=== PATIENT | female | born 1990 | race Caucasian/White ===

== ENCOUNTER 2024-04-09 15:11 | Emergency (ER) | payer MEDICAID, SELFPAY ==
[2024-04-09] VITALS (12 sets, daily range): BP systolic 102–125; BP diastolic 68–83; PULSE 78–109; RESP 12–20; TEMP 37.7; O2SAT 93–99; BMI 16.5
--- NOTE | 2024-04-09 16:34 | ED_ITS ---
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 She has had recurrent severe low potassium levels. She was sent here by 1 of her primary physicians for evaluation because this morning her blood pressure was low and she began to feel lightheaded and rather suddenly collapsed with brief loss of consciousness. She reports that she typically does have nausea symptoms but does not indicate any vomiting or diarrhea. She does not report any fevers. Related Data Home Medications ?Medication ?Instructions ?Recorded ?Confirmed albuterol sulfate 90 mcg/actuation inhalation 04/09/24 aerosol inhaler ferrous sulfate 325 mg (65 mg 325 mg PO TID 04/09/24 04/09/24 iron) tablet (iron) gabapentin 100 mg capsule 100 mg PO QPM 04/09/24 04/09/24 gabapentin 300 mg capsule 300 mg PO 3XD 04/09/24 04/09/24 hydroxyzine HCl 25 mg tablet mg PO 04/09/24 potassium chloride 20 mEq 80 meq PO BID 04/09/24 04/09/24 tablet,extended release(part/cryst) (Klor-Con M) spironolactone 25 mg tablet 25 mg PO TID 04/09/24 04/09/24 Allergies Allergy/AdvReac Type Severity Reaction Status Date / Time duloxetine [From Cymbalta] Allergy Severe Hypotension Verified 04/09/24 15:26 IV Iron AdvReac Intermediate swelling Uncoded 04/09/24 15:26 of arm Review of Systems Status of ROS: Reports: 10 or more systems reviewed and unremarkable except as noted in History and below Narrative: Constitutional: No fevers, no weight gain. She states that she has lost about 2 lb in the past few days. Eyes: No discharge. No vision changes. HENT: No congestion, no sore throat, no ear pain. Cardiovascular: No chest pain, no palpitations. Respiratory: No shortness of breath, no wheezes, no cough. Gastrointestinal: No abdominal pain, no vomiting, no diarrhea. Genitourinary: No dysuria, no hematuria. Musculoskeletal: Normal range of motion. Skin: No rashes, no pruritis. Neurological: No dizziness, weakness, sensory change, speech change. Endo/Heme/Allergies: No bruising or bleeding. No polydipsia. Pysch: no suicidality, no anxiety, no insomnia. All other systems reviewed and are negative. [facility] Social History Smoking Status: Never smoker How often do you have a drink containing alcohol: never AUDIT-C Alcohol total score: 0 Non-prescribed substance use: denies use Exam Narrative: Exam Narrative: Constitutional: No acute distress. HEENT: Normocephalic, atraumatic. Neck: Normal range of motion. Nontender. Supple. Heart: Regular. No murmurs. Normal rate. Intact distal pulses. Lungs: Clear to auscultation. No chest discomfort. No wheezes, rhonchi, or rales. Abdomen: Normal bowel sounds. Nontender. No rebound tenderness. Genitalia: Deferred. Back: No midline tenderness. Normal range of motion. Extremities: Normal range of motion. No injury. Skin: Intact. No rash. Warm. No erythema or pallor. Neurologic: No altered sensation. No weakness. Alert and oriented. Psychiatric: No suicidality. No anxiety or depression. No insomnia. Nursing notes and vitals signs are reviewed. Const: Vital Signs, click to edit/add: Vital Signs - 24 hr 04/09/24 15:17 04/09/24 16:12 04/09/24 16:16 Temperature 99.8 F H Pulse Rate 87 87 Pulse Rate [Pulse Oximeter] 109 H Respiratory Rate 20 14 14 Blood Pressure 109/83 111/80 Blood Pressure [Ri ght Upper Arm] 125/71 Pulse Oximetry 98 96 94 Oxygen Delivery Me thod Room Air 04/09/24 16:31 04/09/24 16:46 04/09/24 17:01 Temperature Pulse Rate 86 89 81 Pulse Rate [Pulse Oximeter] Respiratory Rate 16 12 14 Blood Pressure 105/72 102/83 102/77 Blood Pressure [Ri ght Upper Arm] Pulse Oximetry 93 98 94 Oxygen Delivery Me thod 04/09/24 17:16 04/09/24 17:32 04/09/24 17:46 Temperature Pulse Rate 84 78 78 Pulse Rate [Pulse Oximeter] Respiratory Rate 16 12 18 Blood Pressure 114/75 115/74 107/68 Blood Pressure [Ri ght Upper Arm] Pulse Oximetry 98 99 97 Oxygen Delivery Me thod 04/09/24 19:23 Temperature Pulse Rate Pulse Rate [Pulse Oximeter] 89 Respiratory Rate Blood Pressure Blood Pressure [Ri t Upper Arm] 122/81 Pulse Oximetry Oxygen Delivery Me thod Course Vital Signs Vital signs: Initial Vital Signs Temperature 99.8 F H 04/09/24 15:17 Temperature Source Temporal Artery Scan 04/09/24 15:17 Pulse Rate 109 H 04/09/24 15:17 Respiratory Rate 20 04/09/24 15:17 Blood Pressure 125/71 04/09/24 15:17 Blood Pressure Mean 89 04/09/24 15:17 Blood Pressure Position Sitting 04/09/24 15:17 Pulse Oximetry 98 04/09/24 15:17 Oxygen Delivery Method Room Air 04/09/24 15:17 Vital Signs Temperature 99.8 F H 04/09/24 15:17 Pulse Rate 109 H 04/09/24 15:17 Respiratory Rate 20 04/09/24 15:17 Blood Pressure 125/71 04/09/24 15:17 Pulse Oximetry 98 04/09/24 15:17 Oxygen Delivery Method Room Air 04/09/24 15:17 Temperature 99.8 F H 04/09/24 15:17 Pulse Rate 89 04/09/24 19:23 Respiratory Rate 18 04/09/24 17:46 Blood Pressure 122/81 04/09/24 19:23 Pulse Oximetry 97 04/09/24 17:46 Oxygen Delivery Method Room Air 04/09/24 15:17 Medications Administered Medications: Generic Name Dose Route Start Last Admin Trade Name Freq PRN Reason Stop Dose Admin Hydromorphone HCl 0.5 mg 04/09/24 18:34 04/09/24 18:45 Hydromorphone 0.5 Mg/0.5 Ml Inj IVP 04/09/24 18:35 0.5 mg ONCE ONE Administration Discontinued Medications Generic Name Dose Route Start Last Admin Trade Name Freq PRN Reason Stop Dose Admin Dextrose/Sodium Chloride 1,000 mls @ 1,000 mls/hr 04/09/24 16:30 04/09/24 17:13 5 % Dextrose/0.9% Sod Chloride IV 04/09/24 17:29 Not Given .Q1H GERI Sodium Chloride 500 mls @ 500 mls/hr 04/09/24 17:02 04/09/24 18:13 0.9 % Sodium Chloride 500 Ml IV 04/09/24 18:01 Infused .Q1H ONE Infusion Ketorolac Tromethamine 15 mg 04/09/24 17:16 04/09/24 17:47 Ketorolac 15 Mg/Ml Inj IVP 04/09/24 17:17 15 mg ONCE ONE Administration Potassium Chloride 40 meq 04/09/24 17:44 04/09/24 17:57 Potassium Chloride 10 Meq Capsule Er PO 04/09/24 17:45 40 meq ONCE ONE Administration Medical Decision Making MDM Narrative Medical decision making narrative: This patient comes in reporting lightheadedness with brief syncope this morning. An IV was established where she received 500 mL of normal saline. Labs are acquired and do show typical findings for her related to her Gitelman's syndrome. Her potassium is at 2.9, hemoglobin 9.3, chloride at 77, and BUN at 57 with creatinine at 2.7. Her CO2 level is at 41. Calcium also returns at 11.1. I relayed these findings with the patient who states that these are not uncommon results for her chronic condition. The patient did receive an oral dose of potassium chloride [address] scan of her pelvis is obtained and does show evidence of a pelvic fracture but this appears to be subacute as there is a small amount of callus formation in the fracture sites. A patient did receive an IV dose of Dilaudid 0.5 mg and did maintain sufficient blood pressure. She is okay to be discharged home. She does use crutches for ambulating but states that she is interested in using her aunt's walker as this may provide some more stability. Lab Data Labs: Lab Results 04/09/24 Range/Units 16:55 WBC 6.77 (4.50-11.00) K/uL RBC 3.34 L (4.00-5.20) m/uL Hgb 9.3 L (12.0-16.0) gm/dL Hct 28.0 L (33.0-51.0) % MCV 84 (80-100) fL MCH 28 (26-34) pg MCHC 33 (32-36) gm/dL RDW Coeff of Nahun 13.4 (11.5-15.5) % Plt Count 356 (140-440) K/uL Neut % (Auto) 56.4 (42.0-72.0) % Lymph % (Auto) 32.1 (20-44) % [place] % (Auto) 8.3 (0.0-11.0) % Eos % (Auto) 2.5 (0.0-7.0) % Baso % (Auto) 0.6 (0.0-3.0) % Neut # (Auto) 3.82 (1.7-7.0) K/uL Lymph # (Auto) 2.17 (0.90-2.90) K/uL [place] # (Auto) 0.60 (0.00-0.90) K/UL Eos # (Auto) 0.17 (0.00-0.50) K/uL Baso # (Auto) 0.04 (0.00-0.30) K/uL Abs Immat Gran (auto) 0.01 (0.00-0.30) K/uL Imm/Tot Granulo (auto) 0.1 % Sodium 132 L (135-149) mmol/L Potassium 2.9 L* (3.6-5.1) mmol/L Chloride 77 L (96-114) mmol/L Carbon Dioxide 41 H* (20-32) mmol/L Anion Gap 14 (7-15) mEq/L BUN 57 H (5-24) mg/dL Creatinine 2.7 H (0.5-1.5) mg/dL Estimated Creat Clear 22.58 Estimated GFR 23 ml/min Glucose 88 (60-115) mg/dL Calcium 11.1 H (8.4-10.6) mg/dL Imaging Data CT Pelvis: Radiologist's impression: FINDINGS: Subacute appearing comminuted mildly displaced fractures of the right inferior pubic ramus and right ischiopubic ramus with a tiny amount of associated callus formation. The hip joint spaces are grossly preserved. Normal muscular bulk. Large colonic stool volume. IMPRESSION: 1. Subacute appearing comminuted mildly displaced fractures of the right inferior pubic ramus and right ischiopubic ramus. 2. Large colonic stool volume. Discharge Plan Discharge Clinical Impression: Syncope, Gitelman syndrome Patient Disposition: Home, Self-Care Condition: Stable Additional Instructions: Continue current plans. Follow up with primary physicians as needed or scheduled. Return if worsening. Prescriptions: No Action potassium chloride [Klor-Con M20] 20 mEq tablet,ER particles/crystals 80 meq PO BID ferrous sulfate [iron] 325 mg (65 mg iron) tablet 325 mg PO TID spironolactone 25 mg tablet 25 mg PO TID gabapentin 300 mg capsule 300 mg PO 3XD hydroxyzine HCl 25 mg tablet PO gabapentin 100 mg capsule 100 mg PO QPM albuterol sulfate 90 mcg/actuation HFA aerosol inhaler inhalation Follow Up/Referrals: Provider,Not a Local [Primary Care Provider] - Stand Alone Forms: Jobinasecond Info Instructions
--- OUTSIDE RECORDS SUMMARY | 2024-04-09 16:51 | XMS_ITS | Encounter Summary ---
[facility] Address [address] [address] Care Team Providers Care Db2 Dba Name Role Phone Leyda SANTOS MD, Mary Torres Primary Care Provider [phone]- [phone] Encounter Details Date Type Department Care Team (Late st Contact Info) Description 03/16/2015 Outside Hospital External to [facility] HISTORY AND PHYSICAL Social History Tobacco Use Types Packs/Day Years Used Date Smoking Tobacco: Never Alcohol Use Standard Drinks/Week Comments Yes 0 (1 standard drink = 0.6 oz pure alcohol) Once every couple months; rarely Sex and Gender Information Value Date Recorded Sex Assigned at Not on file Gender Identity Not on file Sexual Orientation Not on file documented as of this encounter Plan of Treatment Not on file documented as of this encounter Visit Diagnoses Not on filedocumented in this encounter Care Teams Db2 Dba Relationship Specialty Start Date End Date Mary Crabtree III, MD [address] [place] [address] PCP - General Family Practice 03/31/15 documented as of this encounter
--- OUTSIDE RECORDS SUMMARY | 2024-04-09 16:51 | XMS_ITS | Encounter Summary ---
Author [facility] Address [address] [address] Care Team Providers Care Exercise Equipment Specialist Name Role Phone Leyda SANTOS MD, Mary Torres Primary Care Provider [phone]- [phone] Encounter Details Date Type Department Care Team [...] on filedocumented in this encounter Care Teams Exercise Equipment Specialist Relationship Specialty Start Date End Date Mary Crabtree III, MD [address] [place] [address] PCP - General Family Practice 03/31/15 documented as of this encounter
--- OUTSIDE RECORDS SUMMARY | 2024-04-09 16:51 | XMS_ITS | Encounter Summary ---
[facility] Address [address] [address] Care Team Providers Care Chief Pilot Name Role Phone Leyda SANTOS MD, Mary Torres Primary Care Provider +1- [phone] Encounter Details Date Type Department Care Team (Late st Contact Info) Description 03/15/2015 Emergency Room External to [facility] Social History Tobacco Use Types Packs/Day Years [...] on filedocumented in this encounter Care Teams Chief Pilot Relationship Specialty Start Date End Date Mary Crabtree III, MD [address] [place] [address] PCP - General Family Practice 03/31/15 documented as of this encounter
--- OUTSIDE RECORDS SUMMARY | 2024-04-09 16:51 | XMS_ITS | Encounter Summary ---
[facility] Address [address] [address] Care Team Providers Care Laundrette Owner Name Role Phone Leyda SANTOS MD, Mary Torres Primary Care Provider +1- [phone] Encounter Details Date Type Department Care Team (Late st Contact Info) Description 03/13/2016 Consent for Procedure/Treatme nt [facility] Department INFORMED CONSENT RECORD Social History Tobacco Use Types Packs/Day Years Used Date Smoking Tobacco: Never Smokeless Tobacco: Never Alcohol Use Standard Drinks/Week Comments No 0 (1 standard drink = 0.6 oz pur e alcohol) Sex and Gender Information Value Date Recorded Sex Assigned at Not on file Gender Identity Not on file Sexual Orientation Not on file documented as of this encounter Plan of Treatment Not on file documented as of this encounter Visit Diagnoses Not on filedocumented in this encounter Care Teams Laundrette Owner Relationship Specialty Start Date End Date Mary Crabtree III, MD [address] [place] [address] PCP - General Family Practice 03/31/15 documented as of this encounter
--- OUTSIDE RECORDS SUMMARY | 2024-04-09 16:51 | XMS_ITS | Encounter Summary ---
Author Organization [facility] Address [address] [address] Care Team Providers Care Sorter Lumber Straightener Name Role Phone Leyda SANTOS MD, Mary Torres Primary Care Provider +1- [phone] Encounter Details Date Type Department Care Team (Late st Contact Info) Description 03/19/2015 Outside Hospital External to [facility] DISCHARGE SUMMARY Social History Tobacco Use Types Packs/Day Years [...] on filedocumented in this encounter Care Teams Sorter Lumber Straightener Relationship Specialty Start Date End Date Mary Crabtree III, MD [address] [place] [address] PCP - General Family Practice 03/31/15 documented as of this encounter
--- OUTSIDE RECORDS SUMMARY | 2024-04-09 16:51 | XMS_ITS | Encounter Summary ---
Author [facility] Address [address] [address] Care Team Providers Care Senior Energy Consultant Name Role Phone Leyda SANTOS MD, Mary Torres Primary Care Provider +1- [phone] Encounter Details Date Type Department Care Team (Late st Contact Info) Description 05/12/2015 Outside Hospital External to [facility] DISCHARGE SUMMARY [...] on filedocumented in this encounter Care Teams Senior Energy Consultant Relationship Specialty Start Date End Date Mary Crabtree III, MD [address] [place] [address] PCP - General Family Practice 03/31/15 documented as of this encounter
--- OUTSIDE RECORDS SUMMARY | 2024-04-09 16:51 | XMS_ITS | Encounter Summary ---
Author [facility] Address [address] [address] Care Team Providers Care Batch Or Continuous Still Operator Name Role Phone Leyda SANTOS MD, Mary Torres Primary Care Provider +1- [phone] Encounter Details Date Type Department Care Team (Late st Contact Info) Description 07/18/2016 Correspondence [facility] Radiology [address] [place] [id number] Radiology, Provider MRI SAFETY SHEET AND COMPATIBILITY FORM Social History Tobacco Use Types Packs/Day Years [...] on filedocumented in this encounter Care Teams Batch Or Continuous Still Operator Relationship Specialty Start Date End Date Mary Crabtree III, MD [address] [place] [address] PCP - General Family Practice 03/31/15 documented as of this encounter
--- OUTSIDE RECORDS SUMMARY | 2024-04-09 16:51 | XMS_ITS | Encounter Summary ---
Author Organization [facility] Address [address] [place] [address] Care Team Providers Care Ekg Manager Name Role Phone Leyda SANTOS MD, Mary Torres Primary Care Provider +1- [phone] Encounter Details Date Type Department Care Team (Late st Contact Info) Description 04/15/2015 Consent for Procedure/Treatme nt [facility] Department INFORMED CONSENT RECORD Social History Tobacco [...] on filedocumented in this encounter Care Teams Ekg Manager Relationship Specialty Start Date End Date Mary Crabtree III, MD [address] [place] [address] PCP - General Family Practice 03/31/15 documented as of this encounter
--- OUTSIDE RECORDS SUMMARY | 2024-04-09 16:51 | XMS_ITS | Encounter Summary ---
Author Organization [facility] Address [address] [place] [address] Care Team Providers Care Metal Plater Name Role Phone Leyda SANTOS MD, Mary Torres Primary Care Provider +1- [phone] Encounter Details Date Type Department Care Team (Late st Contact Info) Description 03/30/2016 Correspondence [facility] [address] [place], [place] [id number] Mary Crabtree III, MD [address] [place], [place] [id number] 03-06 PLAN OF CARE Social History Tobacco Use Types Packs/Day Years [...] on filedocumented in this encounter Care Teams Metal Plater Relationship Specialty Start Date End Date Mary Crabtree III, MD [address] [place] [address] PCP - General Family Practice 03/31/15 documented as of this encounter
--- OUTSIDE RECORDS SUMMARY | 2024-04-09 16:51 | XMS_ITS | Encounter Summary ---
Author Organization Replaced by [facility] Address [address] [address] Care Team Providers Care Metallurgical Specialist Name Role Phone Leyda SANTOS MD, Mary Torres Primary Care Provider +1- [phone] Encounter Details Date Type Department Care Team (Late st Contact Info) Description 07/14/2017 Emergency Room External to [facility] GENERALIZED PAIN Social History Tobacco Use Types Packs/Day Years [...] on filedocumented in this encounter Care Teams Metallurgical Specialist Relationship Specialty Start Date End Date Mary Crabtree III, MD [address] [place] [address] PCP - General Family Practice 03/31/15 documented as of this encounter
--- OUTSIDE RECORDS SUMMARY | 2024-04-09 16:51 | XMS_ITS | Encounter Summary ---
Author Organization [facility] Address [address] [address] Care Team Providers Care Machine Chocolate Molder Name Role Phone Leyda SANTOS MD, Mary Torres Primary Care Provider +1- [phone] Encounter Details Date Type Department Care Team (Late st Contact Info) Description 03/15/2015 Outside Hospital External to [facility] HISTORY AND [...] on filedocumented in this encounter Care Teams Machine Chocolate Molder Relationship Specialty Start Date End Date Mary Crabtree III, MD [address] [place] [address] PCP - General Family Practice 03/31/15 documented as of this encounter
--- OUTSIDE RECORDS SUMMARY | 2024-04-09 16:51 | XMS_ITS | Continuity of Care Document ---
Author Organization [facility] Address [address] [address] [place] [address] Phone Care Team Providers Care Settlement Technician Name Role Phone Anthony Hernandez MD Unavailable Unavailable Allergies, Adverse Reactions, Alerts Substance Reaction Status Criticality No Known allergies Medications Medication Instructions Dosage Effective Dates (start - stop) Status Comments Zofran 8 mg Tab as needed for nausea - Active Prozac 40 mg Cap Take one capsule by mouth daily - Active Procedures Procedure Date Subsqt Hosp-da E&m Minr Compl 0 Subsqt Hosp-da E&m Minr Compl 0 Ugi Endo; W/bx /mx Init Hosp-da E&m Mod Severity 0 Subsqt Hosp-da E&m Stable 15 M 18 Init Inpt Cons New/est Mod-hi 8 Subsqt Hosp-da E&m Stable 15 M 18 Ugi Endo; W/bx /mx Colonoscopy Flex; Dx (feb Pro) 18 Subsqt Hosp-da E&m Minr Compl 8 Subsqt Hosp-da E&m Stable 15 M 18 Init Inpt Cons New/est Mod-hi 8 Subsqt Hosp-da E&m Minr Compl 8 Offic/outpt E&m Estab Minor 10 10 G8447 Offic/outpt E&m Estab Minor 10 09 G8447 Offic/outpt E&m Estab Minor 10 09 Change Gastrostomy Tube Offic/outpt E&m Estab Mod-hi 2 09 G8447 Subsqt Hosp-da E&m Minr Compl 9 Subsqt Hosp-da E&m Minr Compl 9 Subsqt Hosp-da E&m Minr Compl 9 Subsqt Hosp-da E&m Minr Compl 9 Subsqt Hosp-da E&m Minr Compl 9 Ugi Endo; W/bx 1/mx Ugi Endo; W/plcmt Gastrostomy 9 Offic/outpt E&m Estab Mod-hi 2 09 G8447 Offic/outpt E&m Estab Mod-hi 2 08 Subsqt Hosp-da E&m Minr Compl 8 Subsqt Hosp-da E&m Minr Compl 8 Subsqt Hosp-da E&m Minr Compl 8 Subsqt Hosp-da E&m Minr Compl 8 Colonoscopy Flex; W/bx 1/mx Ugi Endo; W/bx 1/mx Subsqt Hosp-da E&m Minr Compl 6 Init Inpt Cons New/est Mod-hi 6 Ugi Endo; W/bx 1/mx Subsqt Hosp-da E&m Minr Compl 6 Subsqt Hosp-da E&m Minr Compl 6 Subsqt Hosp-da E&m Minr Compl 6 Subsqt Hosp-da E&m Minr Compl 6 Subsqt Hosp-da E&m Minr Compl 6 Subsqt Hosp-da E&m Minr Compl 6 Init Inpt Cons New/est Mod-hi 6 Subsqt Hosp-da E&m Minr Compl 6 Offic Cons New/estab Mod- Advance Directives Directive Yes / No Effective Date File Name No Information Encounters Encounter Description Practice Location Reason(s) For Visit Diagnoses Date Provider Providers Copied on Encounter [facility], [address] [address], [place], [place], [id number], [place] tel:[phone] [facility] No Information 0 Mary Cruz. [address] [facility], [facility] [address], [place], [place], [id number], [place]. tel:[phone] [facility], [address] [address], [place], [place], [id number], [place] tel:[phone] [facility] Generalized abdominal pain 0 Joyce Brown. [address] [facility], [facility] [address], [place], [address], [place]. tel:[phone] Subsqt Hosp-da E&m Minr Compl [facility], [address] [address], [place], [address], [place] tel:[phone] [facility] No Information 0 Joyce Brown. [address] [facility], [facility] [address], [place], [id number], [place]. tel:[phone] Referring Provider: Kevin Cook MD, [address] [facility] [address], [place], [address]. tel:[phone] [facility], [address] [address], [facility] [place], [id number], [place] tel:[phone] [facility] No Information 0 Joyce Brown. [address] [facility], [facility] [address], [place], [address], [place]. tel:[phone] Referring Provider: Kevin Cook MD, [address] [facility] [address], [place], [address]. tel:[phone] Init Hosp-da E&m Mod Severity [facility], [address] [address], [place], [place], [address], [place] tel:[phone] [facility] No Information 0 Cornelio Stevenson. [address] [place] [address], [place], [id number], [place]. tel:[phone] Referring Provider: Edgar SANCHEZ, [address] [place], [address]. tel:[phone] Subsqt Hosp-da E&m Stable 15 M [facility], [address] [address], [place], [place], [id number], [place] tel:[phone] [facility] No Information No Information Referring Provider: Gregg Szymanski, [address] [place], [address]. tel:[phone] Init Inpt Cons New/est Mod-hi [facility], [address] [address], [place], [place], [id number], [place] tel:[phone] [facility] No Information 8 No Information Referring Provider: Gregg Szymanski, [address] [place], [address]. tel:[phone] Subsqt Hosp-da E&m Stable 15 M [facility], [address] [address], [place], [place], [address], [place] tel:[phone] [facility] No Information 8 Flory Askew. [facility] [facility], [facility] [address], [place], [id number], [place]. tel:[phone] Referring Provider: Azar Ruth MD, [address] [place] [address], [address]. tel:[phone] Init Inpt Cons New/est Mod-hi [facility], [address] [address], [place], [id number], [place] tel:[phone] [facility] No Information Aug- 8 Sajan Ritter. [address] [facility], [facility] [address], [place], [place], [id number], [place]. tel:[phone] Referring Provider: Riya Lino, [address] [place] [address] [address], [place], [address]. [phone] Offic/outpt E&m Estab Minor 10 [facility], [address] [address], [place], [id number], [place] tel:[phone] [facility] Feeding tube issues (chief complaint) Atten To Gastrostomy 0 No Information Offic/outpt E&m Estab Minor 10 [facility], [address] [address], [place], [id number], [place] tel:[phone] [facility] G-tube change (chief complaint) Atten To Gastrostomy 3200 9 No Information Offic/outpt E&m Estab Minor 10 [facility], [address] [address], [place], [id number], [place] tel:[phone] [facility] No Information 4200 9 No Information Offic/outpt E&m Estab Mod-hi 2 [facility], [address] [address], [place], [id number], [place] tel:[phone] [facility] Check up feeding tube (chief complaint) UnderweightU nderweight 8200 9 No Information Subsqt Hosp-da E&m Minr Compl [facility], [address] [address], [place], [id number], [place] tel:[phone] [facility] No Information 8200 9 No Information Subsqt Hosp-da E&m Minr Compl [facility], [address] [address], [place], [id number], [place] tel:[phone] [facility] No Information [place]-0 6200 9 No Information Subsqt Hosp-da E&m Minr Compl [facility], [address] [address], [place], [place], [id number], [place] tel:[phone] [facility] No Information [place]-0 2-200 9 No Information Offic/outpt E&m Estab Mod-hi 2 [facility], [address] [address], [place], [place], [address], [place] tel:[phone] [facility] consultation for g-tube (chief complaint) Underweight 9 No Information Offic/outpt E&m Estab Mod-hi 2 [facility], [address] [address], [place], [place], [id number], [place] tel:[phone] [facility] Diarrhea Apr-0 9-200 8 No Information Subsqt Hosp-da E&m Minr Compl [facility], [address] [address], [place], [place], [id number], [place] tel:[phone] [facility] No Information Apr-0 7-200 8 No Information Referring Provider: Zeynep Smith, [address], [place], [address]. tel:[phone] Subsqt Hosp-da E&m Minr Compl [facility], [address] [address], [place], [place], [address], [place] tel:[phone] [facility] No Information Apr-0 2-200 8 No Information Referring Provider: Zeynep Smith, [address], [place], [address]. tel:[phone] [facility], [address] [address], [place], [place], [address], [place] tel:[phone] [facility] No Information Apr-0 2-200 8 Will OCASIO . [address] [facility], [facility] [address], [place], [place], [id number], [place]. tel:[phone] Referring Provider: Zeynep Smith, [address], [place], [address]. tel:[phone] Subsqt Hosp-da E&m Minr Compl [facility], [address] [address], [place], [address], [place] tel:[phone] [facility] No Information 6 No Information Referring Provider: Zeynep Smith, [address], [place], [address]. tel:[phone] Init Inpt Cons New/est Mod-hi [facility], [address] [address], [place], [address], [place] tel:[phone] [facility] No Information 6 No Information Referring Provider: Zeynep Smith, [address], [place], [address]. tel:[phone] Subsqt Hosp-da E&m Minr Compl [facility], [address] [address], [place], [address], [place] tel:[phone] [facility] No Information 6 No Information Referring Provider: Zeynep Smith, [address], [place], [address]. tel:[phone] Init Inpt Cons New/est Mod-hi [facility], [address] [address], [place], [address], [place] tel:[phone] [facility] No Information 6 No Information Referring Provider: Zeynep Smith, [address], [place], [address]. tel:[phone] Offic Cons New/estab Mod- [facility], [address] [address], [place], [address], [place] tel:[phone] [facility] abdominal pain,unspeci fied Nov- 6 No Information Referring Provider: Zeynep Smith, [address], [place], [address]. tel:[phone] Family History Family Member Type Diagnosis Age At Onset Maternal grandmother Problem (finding) Thyroid disorde r Mother Problem (finding) Liver Gallbladder Disea se Mother Problem (finding) Colon Polyps Paternal grandfather Problem (finding) Maternal history of diabetes mellitus Paternal grandfather Problem (finding) prostate cancer Maternal grandfather Problem (finding) Colon Rectal Ca ncer First degree family history Problem (finding) No history of Colon Rectal Cancer Maternal grandmother Problem (finding) GERD Maternal grandfather Problem (finding) malignant neoplasm of urinary bladder Maternal grandmother Problem (finding) breast cancer Father Problem (finding) peptic ulceration First degree family history Problem (finding) Thyroid disorder Paternal grandfather Problem (finding) Lupus erythemat osus Father Problem (finding) Irritable bowel disease First degree family history Problem (finding) No history of Crohn's Father Problem (finding) Liver Gallbladder Disea se Maternal grandmother Problem (finding) peptic ulcerati on First degree family history Problem (finding) No history of Ulcerative Colitis Payers Payer name Insurance type Covered constitution party ID Authoriza tion(s) No Information Social History Type Description Quantity Date Captured Comments Sex Female Smoking Status No Information Chief Complaint And Reason For Visit No Information Reason For Referral Reason For Referral No Information History Of Present Illness Encounter Date Complaint History Of Prese nt Illness No Information Functional Status Date Functional Assessmen t No Information Instructions Date Instruction Additional Infor mation No Information Assessments Type Assessment Date No Information Patient Care Teams Name Effective Dates (start - stop) Status Members No Information
--- OUTSIDE RECORDS SUMMARY | 2024-04-09 16:51 | XMS_ITS | Clinical Summary ---
Author Organization [facility] Address [address] [place] [address] Care Team Providers Care Production Line Assembler Name Role Phone Leyda SANTOS MD, Mary Torres Primary Care Provider [phone]- [phone] Source Comments You are receiving this document as you are listed as the primary care provider,follow-up provider, or the patient has been referred to you for consultation.This is in compliance with the Medicare andMedicaid EHR Incentive Program,which states Providers who transition their patient to another setting of careor provider of care or refers their patient to another provider of care shouldprovide summary care record for each transition of care or referral. Everywun Allergies Active Allergy Reactions Criticality Noted Date Comments Duloxetine Other, see comments 09/22/2017 B/P droop, shaking/tremor/fuzzy B/P droop, shaking/tremor/fuzzy B/P droop, shaking/tremor/fuzzy Iron Sucrose Anxiety,Edema,genera lize d,Gastrointestinal,Hives High 09/23/2017 Medications Medication Sig Dispensed Refills Start Date End Date Status Multiple Vitamins-Minerals (MULTIVITAMIN OR) Take 1 tablet by mouth daily (every 24 hours). 30 03/01/2007 Active spironolactone (ALDACTONE) 50 MG tablet Take 0.5 Tabs by mouth two times a day. 180 Tab 2 03/22/2016 Active ferrous sulfate 325 (65 FE) MG tabletIndications:Ir on Deficiency Anemia Take 1 Tab by mouth three times a day. Indications: Anemia From Inadequate Iron in the Body 100 Tab 2 12/21/2016 Active sodium chloride 1 G tablet Take 6 g by mouth 4 times a day. Active ondansetron (ZOFRAN-ODT) 4 MG disintegrating tablet Take 4 mg by mouth every 8 hours as needed for Nausea. Active hydrOXYzine HCl (ATARAX) 25 MG tablet Take 1-2 Tabs by mouth every 6 hours as needed for Pain (This may make you drowsy, so try it before bedtime.). 20 Tab 03/02/2017 Active magnesium oxide (MAG-OX) 400 MG tablet Take 1 Tab by mouth three times a day. Hold when you have diarrhea 03/06/2017 Active naproxen (NAPROSYN) 500 MG tabletIndications:Dy smenorrhea,Lower abdominal pain Take 1 Tablet by mouth two times daily as needed. 20 Tablet 1 10/30/2018 Active potassium chloride (K-BATSHEVA) 20 MEQ packet Take 80 mEq by mouth. 10/21/2018 Active Calcium Carbonate (AKA OS-ELKE) 1250 (500 Ca) MG chewable tablet Chew and swallow by mouth. Active gabapentin (NEURONTIN) 100 MG capsule Take 1 cap am, 1 cap afternoon, 3 caps at night 03/03/2019 Active methocarbamol (ROBAXIN) 750 MG tablet Take 750 mg by mouth. 10/08/2017 Active traMADol (ULTRAM) 50 MG tablet Take 1 Tablet by mouth two times a day. 6 Tablet 10/04/2019 Active oxyCODONE-acetaminop hen (PERCOCET) 5-325 MG tablet Take 1 Tablet by mouth. 08/23/2020 Active oxyCODONE-acetaminop hen (PERCOCET) 5-325 MG tablet Take 1 Tablet by mouth every 4 hours if needed for Pain. Max acetaminophen dose: 4000mg in 24 hrs. 08/31/2020 Active Active Problems Problem Noted Date Diagnosed Date Chronic pain of lower extremity, bilateral 02/08 Alkalosis, metabolic 01/12/2016 Volume depletion, renal, due to output loss (bahman al deficit) 01/12/2016 Incisional pain 11/17/2015 Small bowel problem 11/08/2015 Overview (11/08/2015): 11/08/2015 Bowel problems blamed on irritable bowel syndrome, but with patient's low weight despite significant intake, what appears to be increased intestinal transit time, unexplained iron deficiency anemia (does not menstruate), it seems less benign than irritable bowel syndrome. 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 Our goal is providing quality and consistent care on each visit, to help you improve your overall health. We want to let you know about the care plan recently created for you by our team of health career services representative. A care plan is a way to help our staff provide you with reliable care during any future visits to the [facility]. We are concerned about your recent visits for the following reasons: ? ? In the last twelve months you have had 20 visits to the Emergency Department for Hypokalemia and muscle pain requiring narcotic medications. ? ? We? ve noticed a pattern of visiting the Emergency Department for routine healthcare needs rather than true emergencies. Routine healthcare needs are best addressed by a primary care physician in a clinic. ? ? We? ve noticed a pattern of using the Emergency Department for routine care that is better managed by a Registration Clerk or panel edge painter who can help you with your chronic medical illnesses. ? ? We? ve noticed a pattern of frequent non-emergent visits during which you request medications with a high potential for addiction for treatment of chronic medical illnesses (such as strong pain medications). ? ? We? ve noticed a pattern of not complying with the treatment recommended by your regular doctors, causing repeated worsening in your health. To provide you with reliable care in the future, we plan to do the following: ? ? We will not give you intravenous or intramuscular injections of controlled substances to treat worsening chronic pain. We will treat acute pain, but will maximize non narcotic pain management. ? ? We will not give you intravenous or intramuscular injections of benzodiazepines for your chronic pain/anxiety. ? ? We will interview and examine you any time you come to the ER to identify and treat new or dangerous medical illnesses that are true emergency conditions. ? ? We will not provide refills of your regular medications. ? ? We will not discharge you with prescriptions for medications with the potential for addiction to treat your non-emergent chronic medical illnesses. ? ? Details about this careplan will be posted within your medical record in [facility] to help the emergency department staff and clinic staff. ? ? We may check with the [place] Prescription Monitoring Program to evaluate your recent controlled substance prescriptions. ? ? We may request that you sign a release for information from other hospitals. We use this information to determine how to provide you with the most reliable care. If we are unable to confirm all sources of medication, we may decide that there is too great of a health risk in treating you with medications with addiction potential if we determine you do not have an emergency medical condition. ? ? We will discuss options for treating your chronic pain symptoms with medications that don? t have a potential for addiction. ? ? We will discuss how strong pain medications or anxiety medications change how your body works, and can often make your chronic pain worse. ? ? We may request a urine specimen to check for illegal drugs in your body. Because illegal drugs can act together with medications we prescribe, we may limit the types of medications we treat you with during or after your emergency department visit. ? ? We will work to help you access your primary care doctor for managing your chronic symptoms. ? ? We will help you find a primary care physician to help manage your chronic medical illnesses. Primary care physicians are experts in helping patients manage their illness by finding treatments to control and reduce your symptoms. You are expected to keep scheduled appointment as directed. ? ? We will refer you to your primary care doctor to establish a plan to manage and hopefully improve your symptoms of chronic pain. ? ? We will refer you to a specialist to help provide care for your condition. This specialist can help us personalize this care plan we use during future visits to the emergency department. ? ? We welcome a calm and respectful discussion about your care or any questions you have, even if you disagree with our recommendations. ? ? We will not tolerate any type of abuse toward any of our staff members. This includes calling names, using profanity, using threatening words or behavior, damaging property, or using physical violence. Any abuse will be considered your refusal of further care if you do not have an emergency medical condition. You will be escorted off [facility] property by our security or police if you physically threaten or harm our staff or cause property damage. We reserve the right to call law enforcement and charges for assault or battery may be filed against you. We want you to know what to expect the next time you have a visit in the emergency department. The doctors and nurses who care for you will have access to your care plan and will use it to guide your care. During or after your visit, our pillowcase cleaner will help you connect with additional resources in the community so you can improve your overall health. We want to you to know what resources are available to you right now: Case Management: The emergency department pillowcase cleaner can help answer questions about your care plan and record any concerns you may have about this plan. Most importantly, they are available to help connect you to other resources until you have built a relationship with a primary care provider. To speak with a protective services case worker, please contact [phone] or [phone]. Primary Care Providers: Your primary care doctor can work with you to stabilize your medical illnesses. This may require more frequent visits or changing your treatment plan. You are expected to work with your primary care doctor to help control your disease. If you do not have a primary care doctor, our protective services case worker can help you determine your best options for receiving reliable primary care. Specialty care: Working with a specialist (xxx) may be required to get your illnesses or injuries under control. Following the treatment plan recommended by your specialist is essential to controlling your medical illnesses. If you do not have a specialty care doctor, our protective services case worker can help you determine your best options for referral. Crisis line: [facility] has an adult mental health service crisis unit to help those with mental illnesses. Call [phone] for assistance. Financial counseling: [facility] financial counselors are available to answer your questions about your account with our hospital as well as your options for enrolling in a health insurance plan. You may contact them directly at [phone] Chemical dependency: [facility] offers evaluation to residents for treatment for chemical dependency, including addiction to alcohol, street drugs, or prescription medications. Call [phone] to arrange for an evaluation. We know your needs will change. We review care plans on a yearly basis. We will decide to continue, change or discontinue the care plan during that review. Finally, we understand that you may not agree with the specifics of this care plan. Care plans are important effectively manage your health care needs. We hope your needs are met in our care community and we look forward to partnering with you to receive the best possible healthcare. Our pillowcase cleaner are available to further help connect you with your best options for care. Please contact them at [phone] or [phone] Sincerely, [facility] Care Plan Committee CAREPLAN: [facility] 6 05/02/2017 Overview (03/08/2016): Background: Engaged in Complex Case Management:Bambi Cloud, RN [phone] Goals/Recommendations: PT CARE COORDINATION - HEALTH SHELTER 12/30/2015 09/17/2017 Overview (03/06/2016): Pt enrolled in D&CM and home care. Will review chart every 3 months to see if clinic nurse can assist pt. Laura Rader RN 03/06/2016, 4:01 PM Assessment & Plan (09/14/2017 11:09 AM CDT): Left message to return call. Laura Rader RN 09/14/2017, 11:09 AM Assessment & Plan (03/23/2017 9:46 AM CDT): Staff message sent to D&CM to inquire about pt progress. Laura Rader RN 03/23/2017, 9:46 AM Assessment & Plan (08/25/2016 10:52 AM WIRELESS STORE MANAGER): Contacted pt to f/u on recent ED visit. Pt reports that she is feeling better. Was thought to have a stomach virus which caused diarrhea and electrolyte imbalance. No longer having diarrhea. Inquired if pt was needing forms filled out for work accommodations. Notes that the letter that she received in June seems to be sufficient at this time. Advised to obtain a form if further restrictions are needed. Can present to the clinic and have the provider fill this out. Nurse to f/u in 1 month. Laura Rader RN 08/25/2016, 10:52 AM Assessment & Plan (07/28/2016 11:11 AM WIRELESS STORE MANAGER): Contacted pt to see how she is doing since last visit. Notes that she is having some improvement in the leg pain with the Tylenol 3 and this makes working a little easier. Also has been able to get her employer to comply with the work restrictions that were recommended by Trang. Pt sounded in much better spirits since last visit. MRI was normal, which is reassuring to pt. She was assisted in scheduling a visit with LUCERO OCASIO to discuss amenorrhea. Nurse to f/u in 1 month. Laura Rader RN 07/28/2016, 11:11 AM Assessment & Plan (07/14/2016 11:48 AM WIRELESS STORE MANAGER): Pt answered positively to PHQ9 #9. Denies any plan for self harm, harming others, or suicide. Declines therapy or psychiatry at this time. Will call if she changes her mind regarding this. Has tried multiple medications, but does not feel she has tried one that worked for her. Strongly recommended psychiatry to help assist with finding a medication. States that her depressions is related to her inability to perform desired activities and function normally. States that she will call if she changes her mind and will call the nurse with worries regarding self harm. Pt presented to the clinic on a same day basis with Trang Porras. See TE for provider documentation. Pt notes incredible frustration with her diagnosis and feels that she will be limited in her activities for the rest of her life. 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 Is worried that she may possibly have MS. Has not had a period in 5 years and this was initially thought to be due to her low weight, which is now WNL. Leg pain does not improve with remedy of low potassium, so she wonders if this is actually caused from the syndrome. Notes that she has a wonderful nephrology team and PCP, but thinks that they are too focused on this syndrome. Would like other possibilities explored. Pt is tearful and her main concern is limitation in activity. Expressed understanding with patient's frustration and that this depression is r/t her limitations. She is used to being an active person and [place], so her physical limitations have greatly changed her life. Did note to pt that medication might be a helpful aid while she is working with the doctors to find a group home tx plan. Pt notes that she has not been following up regularly for clinic and lab visits because of this frustration with her prognosis(i.e.-she is not improving). Foreign Banknote Teller Trader expressed understanding, but also noted that this inconsistency will not contribute to improvement of her condition and strongly encouraged regular follow up. Inquired if pt needs FMLA and she declines at this time. Will need work restrictions because they continue to put her in physically demanding positions in her job at the [employer] even after she requests a more stationary task. Pt does not want to be without a job and cannot afford this either. Pt is reminded to call the clinic with any concerns/questions regarding her care. Laura Rader RN?? 07/14/2016, 11:27 AM Assessment & Plan (07/13/2016 4:13 PM WIRELESS STORE MANAGER): Left message to return call. Pt seen in ED 07/07/16 for fall and weakness. Advised to f/u with nephrology. Has not seen or scheduled with them. Calling to see how pt is doing. Laura Rader RN 07/13/2016, 4:12 PM Assessment & Plan (06/29/2016 3:21 PM WIRELESS STORE MANAGER): Pt notes that she continues to have problems with her electrolyte imbalance. However, it has greatly improved since early summer when she was frequently in the hospital. Notes that she has body aches that are more than a normal ache. She will f/u in clinic tomorrow to address her pain. Nurse to f/u. Laura Rader RN 06/29/2016, 3:21 PM Assessment & Plan (05/19/2016 11:11 AM WIRELESS STORE MANAGER): Message sent to D&CM to review pt need. Awaiting response. Laura Rader RN 05/19/2016, 11:11 AM Immunizations Name Administration Dates Next Due 4vHPV (Gardasil) 05/15/2011,04/19/2009 DTP 10/18/1992,1991 DTaP 11/28/1996, 3,1991,1991,1991 HepA Adult (19+ yrs) 11/15/2009,04/19/2009 HepA Ped/Adol (1-18 yrs) 11/15/2009,04/19/2009 HepB Adult (Engerix-B, 20+ y rs, 3 dose series) 04/27/1993,10/18/1992,07/16/1992 HepB Ped/Adol (0-18 yrs) 04/27/1993,10/18/1992,0 07/16/1992 HepB, Unspecified Formulation 04/27/1993, 993,07/16/1992 Hib (ActHIB) 10/20/1992, 3,07/16/1992,1991 Hib, Unspecified Formulation 07/16/1992,10/20/18 92 IPV (Polio) 10/18/1992, 2,1991,1990 Influenza IIV4 (Quadrivalent ) 0.5mL (80376) 2015(Deferred: Patient Refused) MCV4 (Menactra) 04/19/2009 MMR 04/19/2009, 4,07/16/1992,1992 OPV, Trivalent (Orimune or tOPV) 997,10/18/1992,1991,1991,1991 OPV, Unspecified Formulation 11/28/1996, 10/18/1992,1991,1991,1991 Td 11/16/2003 Tdap 04/19/2009 Family History Medical History Relation Name Comments Depression Father Other Father IBS Depression Mother Cancer, Colon Maternal Grandfather Depression Other 1 both sides have aunts and uncles with depression Cancer, Colon Other 2 paternal uncle Other Other 3 two maternal co usins with RA Diabetes, Type II Paternal Grandfather Other Sister 3 JRA Relation Name Status Comments Father Alive Mother Alive Maternal Grandfather Maternal Grandmother Other 1 Other 2 Other 3 Paternal Grandfather Alive Paternal Grandmother Alive Sister 1 Alive Sister 2 Alive Sister 3 Social History Tobacco Use Types Packs/Day Years Used Date Smoking Tobacco: Never Smokeless Tobacco: Never Alcohol Use Standard Drinks/Week Comments No 0 (1 standard drink = 0.6 oz pur e alcohol) Sex and Gender Information Value Date Recorded Sex Assigned at Not on file Gender Identity Not on file Sexual Orientation Not on file Last Filed Vital Signs Vital Sign Reading Time Taken Comments Blood Pressure 123/71 09/10/2020 7:21 PM CDT Pulse 97 09/10/2020 7:21 PM CDT Temperature 37.1 ??C (98.7 ??F) 09/10/2020 7:21 PM CD T Respiratory Rate 16 09/10/2020 7:21 PM CDT Oxygen Saturation 100% 09/10/2020 7:21 PM CDT Inhaled Oxygen Concentration - - Weight 54.4 kg (120 lb) 10/30/2018 10:20 AM CDT Height 167 cm (5' 5.75) 10/30/2018 10:20 AM CDT Body Mass Index 19.52 10/30/2018 10:20 AM CDT Plan of Treatment Health Maintenance Due Date Last Done Comments Cervical Cancer Screening Due 1991 Hep C Screening (Preventive Services) 1991 HIV Screening (Preventive Services) 2007 Adult Preventive Visit 2009 HPV Vaccine (3 - 3-dose series) 08/07/2011 05/15/2011, 04/19/2009 COVID-19 Vaccine ( season) 2024 Influenza (#1) 2024 DTaP/Tdap/Td (8 - Tdap) 08/30/2030 08/31/19, 04/19/2009, 11/16/2003, Additional history exists Zoster/Shingles (1 of 2) 2041 Hib Completed 10/20/1992, 06/26, 07/16/1992, Additional history exists HepB Completed 04/27/1993, 08/1992, 04/27/1993, Additional history exists IPV (Polio) Completed 11/28/1996, 11/1996, 10/18/1992, Additional history exists MCV4 Completed 04/19/2009 HepA Completed 11/15/2009, 10/24, 04/19/2009, Additional history exists Infant RSV Aged Out No longer eligi ble based on patient's age to complete this topic Pneumococcal Aged Out No longer eligi ble based on patient's age to complete this topic Advance Directives * Full Code (Latest Code Status on File) Date Activated Date Inactivated Comments 03/06/2017 12:55 PM 03/06/2017 6:58 PM * Full Code Date Activated Date Inactivated Comments 01/06/2017 4:48 PM 01/07/2017 9:56 PM * Full Code Date Activated Date Inactivated Comments 12/16/2016 12:09 AM 12/17/2016 5:22 PM * Full Code Date Activated Date Inactivated Comments 08/22/2016 8:52 PM 08/23/2016 1:52 PM * Full Code Date Activated Date Inactivated Comments 06/21/2016 5:04 PM 06/22/2016 2:38 PM Care Teams Production Line Assembler Relationship Specialty Start Date End Date Mary Crabtree III, MD [address] [place] [address] PCP - General Family Practice 03/31/15
--- OUTSIDE RECORDS SUMMARY | 2024-04-09 16:51 | XMS_ITS | Continuity of Care Document ---
Author Organization [facility] Address [address] [place] [address] Phone Care Team Providers Care Osteopathic Physician Name Role Phone Will MD FIERRO, Wayne Unavailable Unavailabl e Advance Directives Directive Yes / No Effective Date File Name No Information Encounters Encounter Description Practice Location Reason(s) For Visit Diagnoses Date Provider Providers Copied on Encounter [facility], [address] [place] [address] [place], [place], [id number], [place] tel:[phone] [facility] Gayle No Information Will Wayne. [address] [place], [place], [id number], [place]. tel:[phone] Family History Family Member Type Diagnosis Age At Onset No Information Payers Payer name Insurance type Covered republican ID Authoriza tion(s) No Information Social History [...]
--- OUTSIDE RECORDS SUMMARY | 2024-04-09 16:51 | XMS_ITS | Encounter Summary ---
[facility] Address [address], [place] [address] Care Team Providers Care Phlebotomy Program Coordinator Name Role Phone Leyda SANTOS MD, Mary Torres Primary Care Provider [phone]- [phone] Encounter Details Date Type Department Care Team (Late st Contact Info) Description 01/03/2016 Consent for Procedure/Treatme nt [facility] Department INFORMED CONSENT RECORD Social History Tobacco [...] on filedocumented in this encounter Care Teams Phlebotomy Program Coordinator Relationship Specialty Start Date End Date Mary Crabtree III, MD [address] [place] [address] PCP - General Family Practice 03/31/15 documented as of this encounter
--- OUTSIDE RECORDS SUMMARY | 2024-04-09 16:51 | XMS_ITS | Encounter Summary ---
Author Organization [facility] Address [address] [place] [address] Care Team Providers Care Machine Leather Trimmer Name Role Phone Leyda SANTOS MD, Mary Torres Primary Care Provider [phone]- [phone] Encounter Details Date Type Department Care Team (Late st Contact Info) Description 07/14/2017 Outside Hospital External to [facility], Provider H AND P Social History Tobacco Use Types Packs/Day Years [...] filedocumented in this encounter Care Teams Machine Leather Trimmer Relationship Specialty Start Date End Date Mary Crabtree III, MD [address] [place] [address] PCP - General Family Practice 03/31/15 documented as of this encounter
--- OUTSIDE RECORDS SUMMARY | 2024-04-09 16:51 | XMS_ITS | Encounter Summary ---
[facility] Address [address], [place] [address] Care Team Providers Care Top Cager Name Role Phone Leyda SANTOS MD, Mary Torres Primary Care Provider [phone]- [phone] Encounter Details Date Type Department Care Team (Late st Contact Info) Description 05/12/2017 Outside Hospital External to [facility], Provider H AND P Social History Tobacco [...] on filedocumented in this encounter Care Teams Top Cager Relationship Specialty Start Date End Date Mary Crabtree III, MD [address] [place] [address] PCP - General Family Practice 03/31/15 documented as of this encounter
--- OUTSIDE RECORDS SUMMARY | 2024-04-09 16:51 | XMS_ITS | Encounter Summary ---
Author Organization [facility] Address [address], [place] [address] Care Team Providers Care Soda Clerk Name Role Phone Leyda SANTOS MD, Mary Torres Primary Care Provider +1- [phone] Encounter Details Date Type Department Care Team (Late st Contact Info) Description 02/14/2016 Consent for Procedure/Treatme nt [facility] Department INFORMED CONSENT RECORD Social [...] on filedocumented in this encounter Care Teams Soda Clerk Relationship Specialty Start Date End Date Mary Crabtree III, MD [address] [place] [address] PCP - General Family Practice 03/31/15 documented as of this encounter
--- OUTSIDE RECORDS SUMMARY | 2024-04-09 16:51 | XMS_ITS | Encounter Summary ---
Author Organization [email or web address] Address [address] [address] Care Team Providers Care Environmental Services Specialist Name Role Phone Leyda SANTOS MD, Mary Torres Primary Care Provider +1- [phone] Encounter Details Date Type Department Care Team (Late st Contact Info) Description 02/02/2016 Consent for Procedure/Treatme nt [facility] Department INFORMED CONSENT RECORD Social History [...] on filedocumented in this encounter Care Teams Environmental Services Specialist Relationship Specialty Start Date End Date Mary Crabtree III, MD [address] [place] [address] PCP - General Family Practice 03/31/15 documented as of this encounter
--- OUTSIDE RECORDS SUMMARY | 2024-04-09 16:51 | XMS_ITS | Encounter Summary ---
Author Organization [facility] Address [address] [address] Care Team Providers Care Senior Mechanical Development Engineer Name Role Phone Leyda SANTOS MD, Mary Torres Primary Care Provider +1- [phone] Encounter Details Date Type Department Care Team (Late st Contact Info) Description 12/27/2016 Emergency Room External to [facility] Social History Tobacco Use Types Packs/Day Years [...] filedocumented in this encounter Care Teams Senior Mechanical Development Engineer Relationship Specialty Start Date End Date Mary Crabtree III, MD [address] [place] [address] PCP - General Family Practice 03/31/15 documented as of this encounter
--- OUTSIDE RECORDS SUMMARY | 2024-04-09 16:51 | XMS_ITS | Encounter Summary ---
Author Organization [facility] Address [address] [place] [address] Care Team Providers Care Coyote Hunter Name Role Phone Leyda SANTOS MD, Mary Torres Primary Care Provider +1- [phone] Encounter Details Date Type Department Care Team (Late st Contact Info) Description 10/03/2015 Scanned History External to Transferred Record, Provider [facility] Social History Tobacco Use Types Packs/Day Years [...] on filedocumented in this encounter Care Teams Coyote Hunter Relationship Specialty Start Date End Date Mary Crabtree III, MD [address] [place] [address] PCP - General Family Practice 03/31/15 documented as of this encounter
--- OUTSIDE RECORDS SUMMARY | 2024-04-09 16:51 | XMS_ITS | Encounter Summary ---
[facility] Address [address] [place] [address] Care Team Providers Care Rock Crushing Machine Operator Name Role Phone Leyda SANTOS MD, Mary Torres Primary Care Provider +1- [phone] Encounter Details Date Type Department Care Team (Late st Contact Info) Description 10/03/2015 Scanned History External to Transferred Record, Provider [facility] Social History Tobacco Use Types [...] on filedocumented in this encounter Care Teams Rock Crushing Machine Operator Relationship Specialty Start Date End Date Mary Crabtree III, MD [address] [place] [address] PCP - General Family Practice 03/31/15 documented as of this encounter
--- OUTSIDE RECORDS SUMMARY | 2024-04-09 16:51 | XMS_ITS | Encounter Summary ---
Author [facility] Address [address], [place] [address] Care Team Providers Care Human Machine Interface Engineer Name Role Phone Leyda SANTOS MD, Mary Torres Primary Care Provider +1- [phone] Encounter Details Date Type Department Care Team (Late st Contact Info) Description 03/16/2015 Outside Hospital External to [facility] DISCHARGE SUMMARY [...] on filedocumented in this encounter Care Teams Human Machine Interface Engineer Relationship Specialty Start Date End Date Mary Crabtree III, MD [address] [place] [address] PCP - General Family Practice 03/31/15 documented as of this encounter
--- OUTSIDE RECORDS SUMMARY | 2024-04-09 16:51 | XMS_ITS | Encounter Summary ---
Author Organization [facility] Address [address] [place] [address] Care Team Providers Care Line Pilot Name Role Phone Leyda SANTOS MD, Mary Torres Primary Care Provider +1- [phone] Encounter Details Date Type Department Care Team (Late st Contact Info) Description 09/24/2015 Scanned History External to Transferred Record, Provider [facility] Social History Tobacco Use Types Packs/Day Years [...] on filedocumented in this encounter Care Teams Line Pilot Relationship Specialty Start Date End Date Mary Crabtree III, MD [address] [place] [address] PCP - General Family Practice 03/31/15 documented as of this encounter
--- OUTSIDE RECORDS SUMMARY | 2024-04-09 16:52 | XMS_ITS | Clinical Summary ---
Author Organization [facility] Address [address] [place] [address] Care Team Providers Care Architectural Project Captain Name Role Phone Gregg Corrales MD Primary Care Provider Allergies Active Allergy Reactions Criticality Noted Date Comments Duloxetine Other (See Comments) 09/22/2017 B/P droop, shaking/tremor/fuzz y B/P droop, shaking/tremor/fuzz y Duloxetine Hcl 03/07/2018 B/P droop Ferric Carboxymaltose Unknown,Other (See Comments) 11/07/2021 Irritation at the injection site. Pt declined continuing infusion at lower rate. Irritation at the injection site. Pt declined continuing infusion at lower rate. Iron 06/06/2020 Other reaction(s): Other (see comments) Iron Sucrose Anxiety,Hives High 09/23/2017 Other reaction(s): Edema, Edema, Gastrointestinal, GI intolerance, GI Upset, Irritation At Inj Site, Other (see comments) Medications Medication Sig Dispensed Refills Start Date End Date Status multivitamin, therapeutic (THERA-VIT) TABS Take 1 tablet by mouth daily Active magnesium oxide (MAG-OX) 400 MG tablet Take 400 mg by mouth 3 times daily 03/06/2017 Active ferrous sulfate 325 (65 Fe) MG TBEC EC tablet Take 325 mg by mouth 3 times daily. 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 30 tablet 03/12/2024 Active gabapentin (NEURONTIN) 100 MG capsuleIndicatio ns:Closed fracture of single ramus of right pubis, with delayed healing, subsequent encounter Take 1 capsule (100 mg) by mouth 3 times daily. 90 capsule 03/12/2024 Active hydrOXYzine HCl (ATARAX) 25 MG tabletIndication s:Acute bilateral low back pain without sciatica Take 1-2 tablets (25-50 mg) by mouth every 6 hours as needed for other (adjuvant pain). 30 tablet 03/12/2024 Active senna-docusate (SENOKOT-S/PERIC OLACE) 8.6-50 MG tabletIndication s:Closed fracture of single ramus of right pubis, with delayed healing, subsequent encounter Take 1 tablet by mouth 2 times daily as needed for constipation. 03/23/2024 Active HYDROmorphone (DILAUDID) 2 MG tablet Take 2-4 mg by mouth every 6 hours as needed for severe pain. Active methocarbamol (ROBAXIN) 500 MG tablet Take 500 mg by mouth 4 times daily as needed for muscle spasms. Active calcium carbonate (TUMS) 500 MG chewable tablet Take 1-2 chew tab by mouth daily as needed for heartburn 03/23/20 24 Discontinued(Sto p at Discharge) hydrOXYzine (ATARAX) 25 MG tabletIndication s:Acute bilateral low back pain without sciatica Take 1-2 tablets (25-50 mg) by mouth every 6 hours as needed for other (adjuvant pain) 20 tablet 10/10/2018 03/12/20 24 Discontinued gabapentin (NEURONTIN) 300 MG capsule Take 300 mg by mouth 3 times daily 03/12/20 24 Discontinued(Sto p at Discharge) gabapentin (NEURONTIN) 100 MG capsule Take 100 mg by mouth At Bedtime (Plus 300mg for total 400mg at bedtime) 03/12/20 24 Discontinued(Sto p at Discharge) spironolactone (ALDACTONE) 50 MG tablet Take 50 mg by mouth daily 03/12/20 24 Discontinued potassium chloride deanne ER (KLOR-CON M20) 20 MEQ CR tablet Take 80 mEq by mouth 5 times daily. 03/12/20 24 Discontinued(Sto p at Discharge) methocarbamol (ROBAXIN) 750 MG tablet Take 750 mg by mouth every 6 hours as needed for muscle spasms. 12/31/2023 03/23/20 24 Discontinued(Sto p at Discharge) HYDROmorphone (DILAUDID) 4 MG tablet Take 2-4 mg by mouth every 6 hours as needed for pain. #12 dispensed 03/01/2024 03/12/20 24 Discontinued(Sto p at Discharge) potassium chloride deanne ER (KLOR-CON M20) 20 MEQ CR tabletIndication s:Gitelman syndrome Take 4 tablets (80 mEq) by mouth 2 times daily for 14 days. 112 tablet 03/12/2024 03/23/20 24 Discontinued senna-docusate (SENOKOT-S/PERIC OLACE) 8.6-50 MG tabletIndication s:Closed fracture of single ramus of right pubis, with delayed healing, subsequent encounter Take 1 tablet by mouth daily. 30 tablet 03/12/2024 03/23/20 24 Discontinued(Sto p at Discharge) HYDROmorphone (DILAUDID) 4 MG tabletIndication s:Closed fracture of single ramus of right pubis, with delayed healing, subsequent encounter Take 1 tablet (4 mg) by mouth every 6 hours as needed for moderate to severe pain. 24 tablet 03/12/2024 03/23/20 24 Discontinued(Sto p at Discharge) acetaminophen (TYLENOL) 500 MG tabletIndication s:Closed fracture of single ramus of right pubis, with delayed healing, subsequent encounter Take 2 tablets (1,000 mg) by mouth 3 times daily for 7 days. After 03/30 change to every 8 hours as needed. 03/23/2024 03/30/20 24 methocarbamol (ROBAXIN) 750 MG tabletIndication s:Closed fracture of single ramus of right pubis, with delayed healing, subsequent encounter Take 1 tablet (750 mg) by mouth 3 times daily for 5 days. After 5 days, change to frequency of PRN. 03/23/2024 03/28/20 24 HYDROmorphone (DILAUDID) 2 MG tabletIndication s:Closed fracture of single ramus of right pubis, with delayed healing, subsequent encounter Take 1-2 tablets (2-4 mg) by mouth every 6 hours as needed for severe pain (take 2 mg dose for pain scale <7/10, can take 4 mg dose for pain scale over 8/10). 15 tablet 03/23/2024 03/26/20 24 potassium chloride deanne ER (KLOR-CON M20) 20 MEQ CR tabletIndication s:Gitelman syndrome Take 4 tablets (80 mEq) by mouth 3 times daily for 14 days. 112 tablet 03/23/2024 03/23/20 24 Discontinued(Sto p at Discharge) potassium chloride ER (K-TAB) 20 MEQ CR tabletIndication s:Gitelman syndrome Take 4 tablets (80 mEq) by mouth 3 times daily for 14 days. 168 tablet 03/23/2024 04/06/20 24 Active Problems Problem Noted Date Diagnosed Date Chronic pain in female pelvis 04/02/2024 Inferior pubic ramus fractur e, right, closed, initial encounter 03/21/2024 Right hip pain 03/20/2024 Acute renal failure superimp osed on chronic kidney disease, unspecified acute renal failure type, unspecified CKD stage 03/20/2024 Hypercalcemia 03/06/2024 BARBARA (acute kidney injury) 03/06/2024 Acute kidney injury 01/31/2023 Metabolic alkalosis 11/04/2022 [id number] kidney injury 11/04/2022 Myalgia, multiple sites 07/29/2022 QT prolongation 03/06/2022 Pain of left upper arm 03/06/2022 Prolonged QT interval 07/20/2021 Chronic midline low back pain without sciatica 0 07/20/2021 Iron deficiency anemia, unsp ecified iron deficiency anemia type 07/20/2021 Nausea 07/20/2021 Ventral hernia without obstruction or gangrene 0 11/22/2020 Abdominal pain, epigastric 11/21/2020 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 Provider to review and confirm. Resolved Problems Problem Noted Date Diagnosed Date Resolved Date Leg pain 07/06/2010 07/06/2010 Encounters Date Type Department Care Team Description 04/02/2024 1:27 PM CDT - 04/04/2024 9:52 AM CDT Hospital Encounter [facility] Observation Dept [address] [place] [address] Amy Lott MD Ricklefs, Kendall D, DO Hypokalemia; BARBARA (acute kidney injury) (H); Chronic pain in female pelvis Discharge Disposition: Left Against Medical Advice 04/02/2024 Travel 03/25/2024 Telephone [facility] [address] 5th [place] [address] Tabitha Thomas MD Clinic Care Coordination - Initial 03/20/2024 3:15 PM CDT - 03/23/2024 12:50 PM CDT Hospital Encounter [facility] Observation Dept [address] [place] [address] Michael Ruiz DO Young, Jean Tsai, MD Gitelman syndrome (Primary Dx); Acute renal failure superimposed on chronic kidney disease, unspecified acute renal failure type, unspecified CKD stage (H); Right hip pain; Inferior pubic ramus fracture, right, closed, initial encounter (H); Chronic pain syndrome; Closed fracture of single ramus of right pubis, with delayed healing, subsequent encounter Discharge Disposition: Home or Self Care 03/20/2024 Travel 03/06/2024 2:04 PM CDT - 03/12/2024 2:06 PM CDT Hospital Encounter [facility] Medical Surgical [address] [place] [address] Ezequiel Valladares MD Khan, Raza A, MD Chronic midline low back pain without sciatica (Primary Dx); BARBARA (acute kidney injury) (H); Gitelman syndrome; Hypercalcemia; Closed fracture of single ramus of right pubis, with delayed healing, subsequent encounter; Acute bilateral low back pain without sciatica Discharge Disposition: Home or Self Care 03/06/2024 Travel from Last 3 Months Family History Medical History Relation Comments Other - See Comments Father Hypokalemia Breast Cancer Maternal Grandmother Hypothyroidism Mother Colon Cancer Paternal Uncle Juvenile idiopathic arthritis Sister Relation Status Comments Father Maternal Grandmother Mother Paternal Uncle Sister Social History Tobacco Use Types Packs/Day Years Used Date Smoking Tobacco: Never Smokeless Tobacco: Never Alcohol Use Standard Drinks/Week Comments No 0 (1 standard drink = 0.6 oz pur e alcohol) Adolescent Education Answer Date Record ed Getting School Help Needed Not on file 03/16 Food Insecurity Answer Date Recorded Within the past 12 months, d id you worry that your food would run out before you got money to buy more? No 04/02/2024 Within the past 12 months, d id the food you bought just not last and you didn? t have money to get more? No 04/02/2024 Housing Stability Answer Date Recorded Do you have housing? (Felice iraheta is defined as stable permanent housing and does not include staying ouside in a car, in a tent, in an abandoned building, in an overnight long term, or couch-surfing.) Yes 04/02/2024 Are you worried about losing your housing? No 04/02/2024 Financial Resource Strain Answer Date R ecorded Within the past 12 months, h ave you or your family members you live with been unable to get utilities (heat, electricity) when it was really needed? No 04/02/2024 Transportation Needs Answer Date Record ed Within the past 12 months, h as lack of transportation kept you from medical appointments, getting your medicines, non-medical meetings or appointments, work, or from getting things that you need? No 04/02/2024 Interpersonal Safety Answer Date Record ed Do you feel physically and e motionally safe where you currently live? Yes 04/03/2024 Within the past 12 months, h ave you been hit, slapped, kicked or otherwise physically hurt by someone? No 04/03/2024 Within the past 12 months, h ave you been humiliated or emotionally abused in other ways by your partner or ex-partner? No 04/03/2024 Sex and Gender Information Value Date Recorded Sex Assigned at Not on file Gender Identity Not on file Sexual Orientation Not on file Last Filed Vital Signs Vital Sign Reading Time Taken Comments Blood Pressure 90/67 04/04/2024 7:41 AM CDT Pulse 71 04/04/2024 7:41 AM CDT Temperature 36.7 ??C (98 ??F) 04/04/2024 7:41 AM CDT Respiratory Rate 18 04/04/2024 7:41 AM CDT Oxygen Saturation 98% 04/04/2024 7:41 AM CDT Inhaled Oxygen Concentration - - Weight 48.7 kg (107 lb 4.8 oz) 04/02/2024 5:42 P M CDT Height 170.2 cm (5' 7) 04/02/2024 5:42 PM CDT Body Mass Index 16.81 04/02/2024 5:42 PM CDT Plan of Treatment Health Maintenance Due Date Last Done Comments ANNUAL REVIEW OF HM ORDERS 1991 LIPID 1991 MICROALBUMIN 1991 HIV SCREENING 2006 HEPATITIS C SCREENING 2009 MEDICARE ANNUAL WELLNESS VISIT 2009 HPV IMMUNIZATION (3 - 3-dose series) 08/07/2011 05/15/2011, 04/19/2009 PAP 2012 ADVANCE CARE PLANNING 03/08/2023 03/08/2018 PHQ-2 (once per calendar year) 2023 COVID-19 Vaccine (2023- season) 2024 INFLUENZA VACCINE (#1) 2024 URINE DRUG SCREEN 03/21/2025 03/21/2024 BMP 04/04/2025 04/04/2024, 03/25, 04/02/2024, Additional history exists DTAP/TDAP/TD IMMUNIZATION (8 - Td or Tdap) 08/30/2030 08/30/2020, 04/19/2009, 11/16/2003, Additional history exists RSV VACCINE (1 - 1-dose 75+ series) 2066 HEPATITIS B IMMUNIZATION Completed 993, 04/27/1993, 04/27/1993, Additional history exists MENINGITIS IMMUNIZATION Completed 04/19/2009 URINALYSIS Completed 01/31/2023, 10/23, 05/16/2022, Additional history exists Pneumococcal Vaccine: Pediatrics (0 to 5 Years) and At-Risk Patients (6 to 64 Years) Aged Out No longer eligible based on patient's age to complete this topic RSV MONOCLONAL ANTIBODY Aged Out No l onger eligible based on patient's age to complete this topic Procedures Procedure Name Priority Date/Time Associated Diagnosis Comments CBC WITH PLATELETS & DIFFERENTIAL Routine 04/04/2024 4:56 AM CDT MAGNESIUM Add-On 04/04/2024 4:56 AM CDT CBC WITH PLATELETS AND DIFFERENTIAL Routine 04/04/2024 4:56 AM CDT FERRITIN Routine 04/04/2024 4:56 AM CDT IRON AND IRON BINDING CAPACITY Routine 04/04/2024 4:56 AM CDT BASIC METABOLIC PANEL Routine 04/04/2024 4:56 AM CDT POTASSIUM Timed 04/03/2024 7:55 PM CDT POTASSIUM Timed 04/03/2024 1:24 PM CDT POTASSIUM Timed 04/03/2024 7:06 AM CDT BASIC METABOLIC PANEL Routine 04/03/2024 7:06 AM CDT CBC WITH PLATELETS Routine 04/03/2024 7: 05 AM CDT POTASSIUM Timed 04/03/2024 3:05 AM CDT BASIC METABOLIC PANEL Timed 04/02/2024 6:49 PM CDT INFLUENZA A/B, RSV, & SARS-COV2 PCR Routine 04/02/2024 6:04 PM CDT EKG 12-LEAD, TRACING ONLY STAT 04/02/2024 3:29 PM CDT CBC WITH PLATELETS & DIFFERENTIAL STAT 04/02/2024 1:42 PM CDT CBC WITH PLATELETS AND DIFFERENTIAL STAT 04/02/2024 1:42 PM CDT TSH WITH FREE T4 REFLEX STAT 04/02/2024 1:42 PM CDT MAGNESIUM STAT 04/02/2024 1:42 PM CDT BASIC METABOLIC PANEL STAT 04/02/2024 1:42 PM CDT EKG 12-LEAD, TRACING ONLY STAT 04/02/2024 1:33 PM CDT CBC WITH PLATELETS Routine 03/23/2024 5: 11 AM CDT BASIC METABOLIC PANEL Routine 03/23/2024 5:11 AM CDT BASIC METABOLIC PANEL Routine 03/22/2024 5:24 AM CDT CBC WITH PLATELETS Routine 03/22/2024 5: 24 AM CDT POTASSIUM Timed 03/21/2024 7:54 PM CDT URINE DRUG SCREEN Routine 03/21/2024 1:2 9 PM CDT URINE DRUG SCREEN PANEL Routine 03/21/2024 1:29 PM CDT DIURETIC SCREEN, URINE Routine 1:29 PM CDT POTASSIUM Timed 03/21/2024 12:28 PM CDT POTASSIUM Timed 03/21/2024 9:25 AM CDT CBC WITH PLATELETS & DIFFERENTIAL Routine 03/21/2024 6:35 AM CDT MAGNESIUM Add-On 03/21/2024 6:35 AM CDT CBC WITH PLATELETS AND DIFFERENTIAL Routine 03/21/2024 6:35 AM CDT IONIZED CALCIUM Routine 03/21/2024 6:35 AM CDT PARATHYROID HORMONE INTACT Routine 03/21/2024 6:35 AM CDT BASIC METABOLIC PANEL Routine 03/21/2024 6:35 AM CDT POTASSIUM Timed 03/21/2024 2:58 AM CDT POTASSIUM Routine 03/20/2024 9:19 PM CDT XR PELVIS AND HIP RIGHT 1 VIEW STAT 03/20/2024 6:24 PM CDT CBC WITH PLATELETS & DIFFERENTIAL STAT 03/20/2024 4:15 PM CDT MAGNESIUM STAT 03/20/2024 4:15 PM CDT CBC WITH PLATELETS AND DIFFERENTIAL STAT 03/20/2024 4:15 PM CDT BASIC METABOLIC PANEL STAT 03/20/2024 4:15 PM CDT CALCIUM TIMED URINE Routine 03/12/2024 1 2:15 PM CDT POTASSIUM TIMED URINE Routine 03/12/2024 12:14 PM CDT PHOSPHORUS TIMED URINE Routine 12:14 PM CDT SODIUM TIMED URINE Routine 03/12/2024 12 :13 PM CDT CREATININE CLEARANCE Routine 03/12/2024 12:09 PM CDT CREATININE CLEARANCE, URINE Routine 03/12/2024 12:09 PM CDT EXTRA PURPLE TOP TUBE Routine 03/12/2024 7:22 AM CDT EXTRA TUBE Routine 03/12/2024 7:22 AM CDT BASIC METABOLIC PANEL Routine 03/12/2024 6:39 AM CDT IONIZED CALCIUM STAT 03/11/2024 10:12 AM CDT PARATHYROID HORMONE INTACT STAT 03/11/2024 10:12 AM CDT RENAL PANEL STAT 03/11/2024 10:12 AM CDT CYSTATIN C WITH GFR Add-On 03/10/2024 6 :48 AM CDT ALBUMIN LEVEL Add-On 03/10/2024 6:48 AM CDT BASIC METABOLIC PANEL Routine 03/10/2024 6:48 AM CDT BASIC METABOLIC PANEL Timed 03/09/2024 5:52 PM CDT MAGNESIUM Add-On 03/09/2024 7:18 AM CDT BASIC METABOLIC PANEL Routine 03/09/2024 7:18 AM CDT MAGNESIUM Routine 03/08/2024 8:57 AM CDT BASIC METABOLIC PANEL STAT 03/08/2024 8:57 AM CDT IRON AND IRON BINDING CAPACITY Routine 03/07/2024 8:46 AM CDT FOLATE Routine 03/07/2024 8:46 AM CDT VITAMIN B12 Routine 03/07/2024 8:46 AM CDT PHOSPHORUS Routine 03/07/2024 8:46 AM CDT MAGNESIUM Routine 03/07/2024 8:46 AM CDT BASIC METABOLIC PANEL Routine 03/07/2024 8:46 AM CDT EKG 12-LEAD, TRACING ONLY Routine 03/06/2024 8:33 PM CDT BICARBONATE URINE STAT 03/06/2024 8:3 1 PM CDT CHLORIDE RANDOM URINE STAT 03/06/2024 7:08 PM CDT POTASSIUM RANDOM URINE STAT 7:08 PM CDT SODIUM RANDOM URINE STAT 03/06/2024 7 :08 PM CDT BLOOD GAS VENOUS STAT 03/06/2024 4:44 PM CDT US RENAL COMPLETE NON-VASCULAR STAT 03/06/2024 4:29 PM CDT EKG 12-LEAD, TRACING ONLY STAT 03/06/2024 2:21 PM CDT CBC WITH PLATELETS & DIFFERENTIAL STAT 03/06/2024 2:19 PM CDT VITAMIN D DEFICIENCY SCREENING Add-On 03/06/2024 2:19 PM CDT EXTRA HEPARINIZED SYRINGE STAT 03/06/2024 2:19 PM CDT EXTRA RED TOP TUBE STAT 03/06/2024 2: 19 PM CDT EXTRA BLUE TOP TUBE STAT 03/06/2024 2 :19 PM CDT CBC WITH PLATELETS AND DIFFERENTIAL STAT 03/06/2024 2:19 PM CDT EXTRA TUBE STAT 03/06/2024 2:19 PM CDT COMPREHENSIVE METABOLIC PANEL STAT 03/06/2024 2:19 PM CDT PHOSPHORUS STAT 03/06/2024 2:19 PM CDT IONIZED CALCIUM STAT 03/06/2024 2:19 PM CDT MAGNESIUM STAT 03/06/2024 2:19 PM CDT ROUTINE UA WITH MICROSCOPIC REFLEX TO CULTURE STAT 01/31/2023 9:25 PM CDT from Last 3 Months or Most Recently Relevant to Health Maintenance Results * (ABNORMAL) CBC with platelets and differential (04/04/2024 4:56 AM CDT) Only the most recent of5 resultswithin the time period is included. WBC Count 7.7 4.0 - 11.0 10e3/uL 04/04/2024 5:29 AM CDT [facility] RBC Count 3.34(L) 3.80 - 5.20 10e6/uL 04/04/2024 5:29 AM CDT [facility] Hemoglobin 9.2(L) 11.7 - 15.7 g/dL 04/04/2024 5:29 AM CDT [facility] Hematocrit 29.3(L) 35.0 - 47.0 % 04/04/2024 5:29 AM CDT [facility] MCV 88 78 - 100 fL 04/04/2024 5:29 AM CDT [facility] MCH 27.5 26.5 - 33.0 pg 04/04/2024 5:29 AM CDT [facility] MCHC 31.4(L) 31.5 - 36.5 g/dL 04/04/2024 5:29 AM CDT [facility] RDW 14.3 10.0 - 15.0 % 04/04/2024 5:29 AM CDT [facility] Platelet Count 409 150 - 450 10e3/uL 04/04/2024 5:29 AM CDT [facility] % Neutrophils 45 % 04/04/2024 5:29 AM CDT [facility] % Lymphocytes 43 % 04/04/2024 5:29 AM CDT [facility] % Monocytes 6 % 04/04/2024 5:29 AM CDT [facility] % Eosinophils 4 % 04/04/2024 5:29 AM CDT [facility] % Basophils 1 % 04/04/2024 5:29 AM CDT [facility] % Immature Granulocytes 0 % 04/04/2024 5:29 AM CDT [facility] NRBCs per 100 WBC 0 <1 /100 024 5:29 AM CDT [facility] Absolute Neutrophils 3.5 1.6 - 8.3 10e3/uL 04/04/2024 5:29 AM CDT [facility] Absolute Lymphocytes 3.3 0.8 - 5.3 10e3/uL 04/04/2024 5:29 AM CDT [facility] Absolute Monocytes 0.5 0.0 - 1.3 10e3/uL 04/04/2024 5:29 AM CDT [facility] Absolute Eosinophils 0.3 0.0 - 0.7 10e3/uL 04/04/2024 5:29 AM CDT [facility] Absolute Basophils 0.1 0.0 - 0.2 10e3/uL 04/04/2024 5:29 AM CDT [facility] Absolute Immature Granulocytes 0.0 <=0.4 10e3/uL 04/04/2024 5:29 AM CDT [facility] Absolute NRBCs 0.0 10e3/uL 04/04/2024 5:29 AM CDT [facility] Blood BLOOD SPECIMEN / Unknown Venipuncture / Unknown 04/04/2024 4:56 AM CDT 04/04/2024 5:26 AM CDT Neal Melara MD LAB - BLOOD ORDERABL [facility] LABORATORY [facility] [address] Lab (1st floor, no room number) [place] [address], [facility] * Magnesium (04/04/2024 4:56 AM CDT) Only the most recent of8 resultswithin the time period is included. Magnesium 2.1 1.7 - 2.3 mg/dL 04/04/2024 10:46 AM CDT [facility] Blood BLOOD SPECIMEN / Unknown Venipuncture / Unknown 04/04/2024 4:56 AM CDT 04/04/2024 5:26 AM CDT Neal Melara MD LAB - BLOOD ORDERABL ES Performing Organization Address City/[facility]/ZIP Co de Phone Number [facility] Lab [address] Lab (1st floor, no room number) [place] [address] * Iron and iron binding capacity (04/04/2024 4:56 AM CDT) Only the most recent of2 resultswithin the time period is included. Iron 104 37 - 145 ug/dL 04/04/2024 5:53 AM CDT [facility] Iron Binding Capacity 414 240 - 430 ug/dL 04/04/2024 5:53 AM CDT [facility] Iron Sat Index 25 15 - 46 % 04/04/2024 5:53 AM CDT [facility] Blood BLOOD SPECIMEN / Unknown Venipuncture / Unknown 04/04/2024 4:56 AM CDT 04/04/2024 5:26 AM CDT Mike Teran MD LAB - BLOOD ORDERABL ES Performing Organization Address [facility]/ZIP Co de Phone Number [facility] Lab [address] Lab (1st floor, no room number) [place] [address] * Ferritin (04/04/2024 4:56 AM CDT) Ferritin 19 6 - 175 ng/mL 04/04/2024 2:10 PM CDT [facility] Blood BLOOD SPECIMEN / Unknown Venipuncture / Unknown 04/04/2024 4:56 AM CDT 04/04/2024 5:26 AM CDT Mike Teran MD LAB - BLOOD ORDERABL ES [facility] [place] [facility] [address] [facility], [address] [place] [address], [facility] * (ABNORMAL) Basic metabolic panel (04/04/2024 4:56 AM CDT) Only the most recent of14 resultswithin the time period is included. Sodium 141 135 - 145 mmol/L 04/04/2024 5:53 AM CDT LABORATORY Potassium 3.9 3.4 - 5.3 mmol/L 04/04/2024 5:53 AM CDT LABORATORY Chloride 97(L) 98 - 107 mmol/L 04/04/2024 5:53 AM CDT LABORATORY Carbon Dioxide (CO2) 34(H) 22 - 29 mmol/L 04/04/2024 5:53 AM CDT LABORATORY Anion Gap 10 7 - 15 mmol/L 04/04/2024 5:53 AM CDT LABORATORY Urea Nitrogen 24.8(H) 6.0 - 20.0 mg/dL 04/04/2024 5:53 AM CDT LABORATORY Creatinine 1.30(H) 0.51 - 0.95 mg/dL 04/04/2024 5:53 AM CDT LABORATORY GFR Estimate 56(L) >60 mL/min/1.7 3m2 04/04/2024 5:53 AM CDT LABORATORY Comment:eGFR calculated us2020 CKD-EPI equation. Calcium 10.1 8.8 - 10.4 mg/dL 04/04/2024 5:53 AM CDT LABORATORY Comment:Reference intervals for this test were updated on 01/08/2024 to reflect our healthy population more accurately. There may be differences in the flagging of prior results with similar values performed with this method. Those prior results can be interpreted in the context of the updated reference intervals. Glucose 85 70 - 99 mg/dL 04/04/2024 5:53 AM CDT LABORATORY Blood BLOOD SPECIMEN / Unknown Venipuncture / Unknown 04/04/2024 4:56 AM CDT 04/04/2024 5:26 AM CDT Neal Melara MD LAB - BLOOD ORDERABL ES LABORATORY [facility] Acute [facility] Lab [address] [facility] Lab (1st floor, no room number) [place] [address], [facility] * Potassium (04/03/2024 7:55 PM CDT) Only the most recent of9 resultswithin the time period is included. [facility] Potassium 3.7 3.4 - 5.3 mmol/L 04/03/2024 8:17 PM CDT [facility] Blood STRUCTURE OF LEFT HAND / Unknown Venipuncture / Unknown 04/03/2024 7:55 PM CDT 04/03/2024 7:59 PM CDT Neal Melara MD LAB - BLOOD ORDERABL ES [facility] [address] Lab (1st floor, no room number) [place] [address] * (ABNORMAL) CBC with platelets (04/03/2024 7:05 AM CDT) Only the most recent of3 resultswithin the time period is included. WBC Count 6.2 4.0 - 11.0 10e3/uL 04/03/2024 7:21 AM CDT [facility] RBC Count 3.04(L) 3.80 - 5.20 10e6/uL 04/03/2024 7:21 AM CDT [facility] Hemoglobin 8.3(L) 11.7 - 15.7 g/dL 04/03/2024 7:21 AM CDT [facility] Hematocrit 26.0(L) 35.0 - 47.0 % 04/03/2024 7:21 AM CDT [facility] MCV 86 78 - 100 fL 04/03/2024 7:21 AM CDT [facility] MCH 27.3 26.5 - 33.0 pg 04/03/2024 7:21 AM CDT [facility] MCHC 31.9 31.5 - 36.5 g/dL 04/03/2024 7:21 AM CDT [facility] RDW 14.0 10.0 - 15.0 % 04/03/2024 7:21 AM CDT [facility] Platelet Count 368 150 - 450 10e3/uL 04/03/2024 7:21 AM CDT [facility] Blood STRUCTURE OF LEFT UPPER LIMB / Unknown Venipuncture / Unknown 04/03/2024 7:05 AM CDT 04/03/2024 7:17 AM CDT Edgar Allan DO LAB - BLOOD ORDERA BLES Performing Organization Address [facility]/ZIP Co de Phone Number [facility] [address] [facility] Lab (1st floor, no room number) [place] [address] * Asymptomatic Influenza A/B, RSV, & SARS-CoV2 PCR (COVID-19) Nose (04/02/2024 6:04 PM CDT) Influenza A PCR Negative Negative 04/02/2024 7:06 PM CDT [facility] Influenza B PCR Negative Negative 04/02/2024 7:06 PM CDT [facility] RSV PCR Negative Negative 04/02/2024 7:06 PM CDT [facility] SARS CoV2 PCR Negative Negative 04/02/2024 7:06 PM CDT [facility] Comment:NEGATIVE: SARS-CoV-2 (COVID-19) RNA not detected, presumed negative. Swab NASAL STRUCTURE / Unknown Non-blood Collection / Unknown 04/02/2024 6:04 PM CDT 04/02/2024 6:18 PM CDT [facility] LABORATORY - 04/02/2024 7:06 PM CDT Testing was performed using the Xpert Xpress CoV2/Flu/RSV Assay on the [employer] GeneXpert Instrument. This test should be ordered for the detection of SARS- CoV2, influenza, and RSV viruses in individuals with signs and symptoms of respiratory tract infection. This test is for in vitro diagnostic use under the [place] FDA for laboratories certified under CLIA to perform high or moderate complexity testing. This test has been [place] FDA cleared. A negative result does not rule out the presence of PCR inhibitors in the specimen or target RNA in concentration below the limit of detection for the assay. If only one viral target is positive but coinfection with multiple targets is suspected, the sample should be re-tested with another FDA cleared, approved, or authorized test, if coninfection would change clinical management. This test was validated by the [facility]. These laboratories are certified under the Clinical Laboratory Improvement Amendments of 1988 (CLIA-88) as qualified to perfom high complexity laboratory testing. Edgar Allan DO LAB - MICRO GENERA L ORDERABLES Performing Organization Address City/[facility]/ZIP Co de Phone Number LABORATORY [facility] [address] Lab (1st floor, no room number) [place] [address] * EKG 12 lead (04/02/2024 3:29 PM CDT) Only the most recent of4 resultswithin the time period is included. Systolic Blood Pressure mmHg RADIOLOGY RESULTS Diastolic Blood Pressure mmHg RADIOLOGY RESULTS Ventricular Rate 76 BPM RAD IOLOGY RESULTS Atrial Rate 76 BPM RADIOLOG Y RESULTS WY Interval 136 ms RADIOLOG Y RESULTS QRS Duration 90 ms RADIOLO GY RESULTS QT 568 ms RADIOLOGY RESULTS QTc 639 ms RADIOLOGY RESULTS P [place] 64 degrees RADIOLOGY RESULTS R AXIS 86 degrees RADIOLOGY RESULTS T [place] 88 degrees RADIOLOGY RESULTS Interpretation ECG Sinus rhythm Left ventricular hypertrophy with repolarization abnormality ( Sokolow-Hernandez ) Prolonged QT Abnormal ECG When compared with ECG of 02-Apr-2024 13:33, Sinus rhythm has replaced Junctional rhythm T wave inversion less evident in Lateral leads QT has lengthened Unconfirmed report - interpretation of this ECG is computer generated - see medical record for final interpretation Confirmed by - EMERGENCY ROOM, PHYSICIAN ([id number]), manuscript editor Kirill Montero ([id number]) on 04/02/2024 3:42:03 PM RADIOLOGY RESULTS 04/02/2024 3:29 PM CDT 04/02/2024 3:42 PM CDT Amy Lott MD ECG ORDERABLES Performing Organization Address [facility]/ZIP Co de Phone Number RADIOLOGY RESULTS * TSH with free T4 reflex (04/02/2024 1:42 PM CDT) TSH 1.74 0.30 - 4.20 uIU/mL 04/02/2024 2:21 PM CDT LABORATORY Blood BLOOD SPECIMEN / Unknown Venipuncture / Unknown 04/02/2024 1:42 PM CDT 04/02/2024 1:50 PM CDT Amy Lott MD LAB - BLOOD [facility]ORAT[facility] [address] Lab (1st floor, no room number) [place] [address], [facility] * Diuretic Screen, Urine (03/21/2024 1:29 PM CDT) [facility] Diuretic Screen Urine NEGATIVE 05/2024 10:41 AM CDT [facility] Comment: Performed by: [id number] [place] [address] Liz Guardado Benzthiazide NEGATIVE 04/05/2024 10:41 AM CDT [facility] Comment: Performed by: [id number] [place] [address] Liz Guardado Bumetanide NEGATIVE 04/05/2024 10:41 AM CDT [facility] Comment: Performed by: [id number] [place] [address] Liz Guardado Chlorothiazide NEGATIVE 04/05/2024 10:41 AM CDT [facility] Comment: Performed by: [id number] [place] [address] Liz Guardado Chlorthalidone NEGATIVE 04/05/2024 10:41 AM CDT [facility] Comment: Performed by: [id number] [place] [address] Liz Guardado Furosemide NEGATIVE 04/05/2024 10:41 AM CDT [facility] Comment: Performed by: [id number] [place] [address] Liz Guardado Hydrochlorothiazide NEGATIVE 04/05 10:41 AM CDT [facility] Comment: Performed by: [id number] [place] [id number] Liz Guardado Hydroxyflumethiazide NEGATIVE 03/25 10:41 AM CDT [facility] Comment: Performed by: [id number] [place] [address] Liz Guardado Metolazone NEGATIVE 04/05/2024 10:41 AM CDT [facility] Comment: Qualitative diuretic screen includes: benzthiazide, bumetanide, chlorothiazide, chlorthalidone, furosemide, hydrochlorothiazide, hydroflumethiazide, and metolazone. ?? This test was developed and its performance characteristics determined by [employer]. It has not been cleared or approved by the Food and Drug Administration. Performed by: [id number] [place] [id number] Liz Guardado Urine URINE SPECIMEN OBTAINED BY CLEAN CATCH PROCEDURE / Unknown Non-blood Collection / Unknown 03/21/2024 1:29 PM CDT 03/21/2024 1:37 PM CDT Charles Bender MD LAB - URINE ORDERABL ES [employer] [address] [place] [address], [facility] [phone] * (ABNORMAL) Urine Drug Screen Panel (03/21/2024 1:29 PM CDT) [facility] Amphetamines Urine Screen Negative Screen Negative 03/21/2024 2:02 PM CDT [facility] Comment:Cutoff for a negativ e amphetamine is less than 500 ng/mL. Barbituates Urine Screen Negative Screen Negative 03/21/2024 2:02 PM CDT [facility] Comment:Cutoff for a negativ e barbiturate is less than 200 ng/mL. Benzodiazepine Urine Screen Negative Screen Negative 03/21/2024 2:02 PM CDT [facility] Comment:Cutoff for a negativ e benzodiazepine is less than 100 ng/mL. Cannabinoids Urine Screen Negative Screen Negative 03/21/2024 2:02 PM CDT [facility] Comment:Cutoff for a negativ e cannabinoid is less than 50 ng/mL. Cocaine Urine Screen Negative Screen Negative 03/21/2024 2:02 PM CDT [facility] Comment:Cutoff for a negativ e cocaine is less than 300 ng/mL. Fentanyl Qual Urine Screen Negative Screen Negative 03/21/2024 2:02 PM CDT [facility] Comment:Cutoff for negative fentanyl is less than 5 ng/mL. Opiates Urine Screen Positive(A) Screen Negative 03/21/2024 2:02 PM CDT [facility] Comment: Cutoff for a positive opiate is 300 ng/mL or greater. This is an unconfirmed screening result to be used for medical purposes only. PCP Urine Screen Negative Screen Negative 03/21/2024 2:02 PM CDT [facility] Comment:Cutoff for a negativ e PCP is less than 25 ng/mL. Urine MID-STREAM URINE SPECIMEN / Unknown Non-blood Collection / Unknown 03/21/2024 1:29 PM CDT 03/21/2024 1:34 PM CDT Charles Bender MD LAB - URINE ORDERABL ES Performing Organization Address [facility]/ZIP Co de Phone Number [facility] Lab [address] Lab (1st floor, no room number) [place] [phone] [place] [address] * Parathyroid Hormone Intact (03/21/2024 6:35 AM CDT) Only the most recent of2 resultswithin the time period is included. Parathyroid Hormone Intact 29 15 - 65 pg/mL 03/21/2024 7:26 AM CDT LABORATORY Blood STRUCTURE OF LEFT HAND / Unknown Venipuncture / Unknown 03/21/2024 6:35 AM CDT 03/21/2024 6:47 AM CDT Narrative LABORATORY - 03/21/2024 7:26 AM CDT This result was obtained with the [employer] PTH STAT assay. This reference range differs from PTH assays used in other [facility] laboratories. Charles Bedner MD LAB - BLOOD ORDERABL ES Performing Organization Address [facility] Co de Phone Number [facility] [address] [facility] Lab (1st floor, no room number) [place] [phone] [place] [address] * Ionized Calcium (03/21/2024 6:35 AM CDT) Only the most recent of3 resultswithin the time period is included. Calcium Ionized Whole Blood 4.7 4.4 - 5.2 mg/dL 03/21/2024 6:46 AM CDT LABORATORY Blood STRUCTURE OF LEFT HAND / Unknown Venipuncture / Unknown 03/21/2024 6:35 AM CDT 03/21/2024 6:45 AM CDT Charles Bender MD LAB - BLOOD ORDERABL ES LABORATORY [facility] [address] [facility] Lab (1st floor, no room number) [place] [address] * XR Pelvis w Hip Right 1 View (03/20/2024 6:24 PM CDT) Anatomical Region Laterality Modality Abdomen/Pelvis Right Digital Radiogra phy 03/20/2024 6:24 PM CDT Impressions 03/20/2024 6:29 PM CDT IMPRESSION: Mildly comminuted nondisplaced fractures of the right inferior pubic ramus. No additional fracture. The pubic symphysis and SI joints are intact. Hip joints are normally aligned, joint spacing is maintained. Narrative 03/20/2024 6:29 PM CDT EXAM: XR PELVIS AND HIP RIGHT 1 VIEW LOCATION: [facility] DATE: 03/20/2024 INDICATION: Fall, Right hip pain, recent right pubic ramus fracture COMPARISON: 02/15/2024. Procedure Note Sean Villareal MD - 03/20/2024 EXAM: XR PELVIS AND HIP RIGHT 1 VIEW LOCATION: [facility] DATE: 03/20/2024 INDICATION: Fall, Right hip pain, recent right pubic ramus fracture COMPARISON: 02/15/2024. IMPRESSION: Mildly comminuted nondisplaced fractures of the right inferiorpubic ramus. No additional fracture. The pubic symphysis and SI joints areintact. Hip joints are normally aligned, joint spacing is maintained. Michael JACOBO DIAGNOSTIC IMAGI NG ORDERABLES * Calcium timed urine (03/12/2024 12:15 PM CDT) Calcium Urine mg/dL 10.4 mg/dL 03/12/2024 9:35 PM CDT [facility] Comment:The reference ranges have not been established in urine calcium. The results should be integrated into the clinical context for interpretation. Duration in hours 24.0 h [facility] 03/12/2024 9:35 PM CDT LABORATORY Volume in mL 1,800 mL [facility] 03/12/2024 9:35 PM CDT [facility] Calcium Urine g/spec 0.19 0.10 - 0.30 g/spec 03/12/2024 9:35 PM CDT [facility] Comment:Reference range appl icable for 24 hour only Urine URINE SPECIMEN OBTAINED BY CLEAN CATCH PROCEDURE / Unknown Non-blood Collection / Unknown 03/12/2024 12:15 PM CDT 03/12/2024 12:29 PM CDT Jose Eduardocolby Francissvetlana TATE LAB - URINE ORDERABL ES [facility] LAB[facility]ATORY [facility] [address] [facility], [address] [place] [address], [facility] LABORATORY [facility] Lab [address] Lab (1st floor, no room number) [place] [address] * Potassium timed urine (03/12/2024 12:14 PM CDT) Potassium Urine 66.2 mmol/L 9:21 PM CDT [facility] Comment:The reference ranges have not been established in urine potassium. The results should be integrated into the clinical context for interpretation. Duration in hours 24.0 h [facility] 03/12/2024 9:21 PM CDT LABORATORY Volume in mL 1,800 mL [facility] 03/12/2024 9:21 PM CDT LABORATORY Potassium Urine mmol/spec 119 25 - 125 mmol/spec 03/12/2024 9:21 PM CDT [facility] Urine URINE SPECIMEN OBTAINED BY CLEAN CATCH PROCEDURE / Unknown Non-blood Collection / Unknown 03/12/2024 12:14 PM CDT 03/12/2024 12:29 PM CDT Jose Eduardo Titosvetlana TATE LAB - URINE ORDERABL ES [facility] [address] [facility] [address] [facility], [address] [place] [address], [facility] LABORATORY [facility] [address] Lab (1st floor, no room number) [place] [address] * (ABNORMAL) Phosphorus timed urine (03/12/2024 12:14 PM CDT) Phosphorous Urine mg/dL 25.1(L) 40.0 - 136.0 mg/dL 03/12/2024 9:30 PM CDT [facility] Phosphorus Urine g/spec 0.45 0.40 - 1.30 g/spec 03/12/2024 9:30 PM CDT [facility] Duration in hours 24.0 h [facility] 03/12/2024 9:30 PM CDT [facility] Volume in mL 1,800 mL [facility] 03/12/2024 9:30 PM CDT [facility] Urine URINE SPECIMEN OBTAINED BY CLEAN CATCH PROCEDURE / Unknown Non-blood Collection / Unknown 03/12/2024 12:14 PM CDT 03/12/2024 12:29 PM CDT Jose Eduardo Jaeger DO LAB - URINE ORDERABL ES [facility] LAB[facility] Core Lab [address] [facility], [address] [place] [address] LABORATORY [facility] [address] [facility] Lab (1st floor, no room number) [place] [address] * Sodium timed urine (03/12/2024 12:13 PM CDT) Sodium Urine mmol/L 79 mmol/L 03/12/2024 1:56 PM CDT LABORATORY Comment:The reference ranges have not been established in urine sodium. The results should be integrated into the clinical context for interpretation. Sodium Urine mmol/spec 142 40 - 220 mmol/spec 03/12/2024 1:56 PM CDT [facility] Duration in hours 24.0 h [facility] 03/12/2024 1:56 PM CDT [facility] Volume in mL 1,800 mL [facility] 03/12/2024 1:56 PM CDT [facility] Urine URINE SPECIMEN OBTAINED BY CLEAN CATCH PROCEDURE / Unknown Non-blood Collection / Unknown 03/12/2024 12:13 PM CDT 03/12/2024 12:29 PM CDT Jose Eduardo Francismichellemarti LAB - URINE ORDERABL ES LABORATORY [facility] [address] [facility] Lab (1st floor, no room number) [place] [address], [facility] * (ABNORMAL) Creatinine Clearance, Urine (03/12/2024 12:09 PM CDT) Height in cm 149 cm [facility] 03/12/2024 4:43 PM CDT [facility] Weight in kg 48.0 kg [facility] 03/12/2024 4:43 PM CDT LABORATORY Creatinine 1.68(H) 0.51 - 0.95 mg/dL 03/12/2024 4:43 PM CDT LABORATORY Raw Clearance 35(L) 66 - 143 mL/min 03/12/2024 4:43 PM CDT LABORATORY Standard Clearance 43(L) 100 - 160 mL/min/1.7 m2 03/12/2024 4:43 PM CDT LABORATORY Volume in mL 1,800 mL [facility] 03/12/2024 4:43 PM CDT LABORATORY Duration in hours 24.0 h [facility] 03/12/2024 4:43 PM CDT LABORATORY Creatinine Urine mg/dL 46.6 mg/dL 03/12/2024 4:43 PM CDT LABORATORY Creatinine Urine Timed g/spec 0.84 0.72 - 1.51 g/spec 03/12/2024 4:43 PM CDT LABORATORY Urine URINE SPECIMEN OBTAINED BY CLEAN CATCH PROCEDURE / Unknown Non-blood Collection / Unknown 03/12/2024 12:09 PM CDT 03/12/2024 12:29 PM CDT Jose Eduardo Francismichellemarti LAB - URINE ORDERABL ES [facility] Lab [address] [facility] Lab (1st floor, no room number) [place] [address], [facility] * Extra Purple Top Tube (03/12/2024 7:22 AM CDT) Hold Specimen [facility] 03/12/2024 8:31 AM CDT LABORATORY Blood TOPOGRAPHY UNKNOWN / Unknown Venipuncture / Unknown 03/12/2024 7:22 AM CDT 03/12/2024 7:22 AM CDT Brendan Dominguez MD LAB - BLOOD ORDERABL ES LABORATORY [facility] [address] Lab (1st floor, no room number) [place] [address] * (ABNORMAL) Renal panel (03/11/2024 10:12 AM CDT) Sodium 140 135 - 145 mmol/L 03/11/2024 10:45 AM CDT LABORATORY Potassium 4.0 3.4 - 5.3 mmol/L 03/11/2024 10:45 AM CDT LABORATORY Chloride 100 98 - 107 mmol/L 03/11/2024 10:45 AM CDT LABORATORY Carbon Dioxide (CO2) 26 22 - 29 mmol/L 03/11/2024 10:45 AM CDT LABORATORY Anion Gap 14 7 - 15 mmol/L 03/11/2024 10:45 AM CDT LABORATORY Glucose 113(H) 70 - 99 mg/dL 03/11/2024 10:45 AM CDT LABORATORY Urea Nitrogen 37.6(H) 6.0 - 20.0 mg/dL 03/11/2024 10:45 AM CDT LABORATORY Creatinine 1.73(H) 0.51 - 0.95 mg/dL 03/11/2024 10:45 AM CDT LABORATORY GFR Estimate 40(L) >60 mL/min/1.7 3m2 03/11/2024 10:45 AM CDT LABORATORY Comment:eGFR calculated usin 2020 CKD-EPI equation. Calcium 10.4 8.8 - 10.4 mg/dL 03/11/2024 10:45 AM CDT LABORATORY Comment:Reference intervals for this test were updated on 01/08/2024 to reflect our healthy population more accurately. There may be differences in the flagging of prior results with similar values performed with this method. Those prior results can be interpreted in the context of the updated reference intervals. Albumin 4.5 3.5 - 5.2 g/dL 03/11/2024 10:45 AM CDT [facility] Phosphorus 2.0(L) 2.5 - 4.5 mg/dL 03/11/2024 10:45 AM CDT [facility] Blood STRUCTURE OF RIGHT HAND / Unknown Venipuncture / Unknown 03/11/2024 10:12 AM CDT 03/11/2024 10:19 AM CDT Jose Eduardo Francissvetlana LAB - BLOOD ORDERABL ES [facility] [address] [facility] Lab (1st floor, no room number) [place] [address] * (ABNORMAL) Cystatin C with GFR (03/10/2024 6:48 AM CDT) Cystatin C 1.8(H) 0.6 - 1.0 mg/L 03/11/2024 6:09 PM CDT [facility] GFR Calculated with Cystatin C 37(L) >=60 mL/min/1.7 3m2 03/11/2024 6:09 PM CDT [facility] Blood STRUCTURE OF RIGHT HAND / Unknown Venipuncture / Unknown 03/10/2024 6:48 AM CDT 03/10/2024 6:53 AM CDT Narrative [facility] - 03/11/2024 6:09 PM CDT eGFRcys in adults is calculated using the 2012 CKD-EPI cystatin c equation which includes age and gender (Brandon et al., NEJM, DOI: 10.1056/LQWFfz0581393) Jose Eduardo Francissvetlana LAB - BLOOD ORDERABL ES [facility] LAB[facility]ATORY [facility] [address] [facility], [address] [place] [address], [facility] * Albumin level (03/10/2024 6:48 AM CDT) Albumin 4.4 3.5 - 5.2 g/dL 03/10/2024 12:56 PM CDT [facility] Blood STRUCTURE OF RIGHT HAND / Unknown Venipuncture / Unknown 03/10/2024 6:48 AM CDT 03/10/2024 6:53 AM CDT Jose Eduardo Jaeger DO LAB - BLOOD ORDERABL ES [facility] [address] Lab (1st floor, no room number) [place] [address] * Phosphorus (03/07/2024 8:46 AM CDT) Only the most recent of2 resultswithin the time period is included. Phosphorus 2.6 2.5 - 4.5 mg/dL 03/07/2024 9:22 AM CDT [facility] Blood STRUCTURE OF LEFT HAND / Unknown Venipuncture / Unknown 03/07/2024 8:46 AM CDT 03/07/2024 8:58 AM CDT Sean Freeman MD LAB - BLOOD ORD ERABLES Performing Organization Address City/[facility]/ZIP Co de Phone Number [facility] Lab [address] Lab (1st floor, no room number) [place] [address] * Folate (03/07/2024 8:46 AM CDT) Folic Acid 15.4 4.6 - 34.8 ng/mL 03/07/2024 2:48 PM CDT [facility] Blood STRUCTURE OF LEFT HAND / Unknown Venipuncture / Unknown 03/07/2024 8:46 AM CDT 03/07/2024 8:57 AM CDT Sean Freeman MD LAB - BLOOD ORD ERABLES [facility] [address] [facility], [address] [place] [address], [facility] * Vitamin B12 (03/07/2024 8:46 AM CDT) Vitamin B12 527 232 - 1,245 pg/mL 03/07/2024 4:58 PM CDT [facility] Blood STRUCTURE OF LEFT HAND / Unknown Venipuncture / Unknown 03/07/2024 8:46 AM CDT 03/07/2024 8:58 AM CDT Sean Freeman MD LAB - BLOOD ORD ERABLES [facility] [address] [facility], [address] [place] [address] * Bicarbonate urine (03/06/2024 8:31 PM CDT) Bicarbonate Urine 42 mmol/L 03/08/2024 2:41 PM CDT [facility] Comment: Diluted and confirmed INTERPRETIVE INFORMATION: Bicarbonate (HCO3), Urine ?? Reference Interval has not been defined for Bicarbonate, Urine. See Compliance Statement B: [email or web address] Performed At: [facility] ([facility]) [facility] [place], [place] ??[address] [employer] [facility] [employer]: DO ESTEFANY IVEY Number: [id number] Urine URINE SPECIMEN OBTAINED BY CLEAN CATCH PROCEDURE / Unknown Non-blood Collection / Unknown 03/06/2024 8:31 PM CDT 03/06/2024 8:48 PM CDT Sean Freeman MD LAB - URINE ORD ERABLES [facility]S [facility] Laboratories [address] [place] [address], [facility] [phone] * Sodium random urine (03/06/2024 7:08 PM CDT) Sodium Urine mmol/L 70 mmol/L 03/06/2024 7:32 PM CDT LABORATORY Comment:The reference ranges have not been established in urine sodium. The results should be integrated into the clinical context for interpretation. Urine MID-STREAM URINE SPECIMEN / Unknown Non-blood Collection / Unknown 03/06/2024 7:08 PM CDT 03/06/2024 7:10 PM CDT Sean Freeman MD LAB - URINE ORD ERABLES [facility] [address] [facility] Lab (1st floor, no room number) [place] [address] * Potassium random urine (03/06/2024 7:08 PM CDT) Potassium Urine 30.8 mmol/L 12:25 AM CDT [facility] Comment:The reference ranges have not been established in urine potassium. The results should be integrated into the clinical context for interpretation. Urine MID-STREAM URINE SPECIMEN / Unknown Non-blood Collection / Unknown 03/06/2024 7:08 PM CDT 03/06/2024 7:10 PM CDT Sean Freeman MD LAB - URINE ORD ERABLES LABORATORY [facility] Core Lab [address] [facility], [address] [place] [address] * Chloride random urine (03/06/2024 7:08 PM CDT) Chloride Urine mmol/L <20 mmol/L 03/07/2024 12:26 AM CDT [facility] Comment:The reference ranges have not been established in urine chloride. The results should be integrated into the clinical context for interpretation. Urine MID-STREAM URINE SPECIMEN / Unknown Non-blood Collection / Unknown 03/06/2024 7:08 PM CDT 03/06/2024 7:10 PM CDT Sean Freeman MD LAB - URINE ORD BERTHABLES U LAB[facility] Lab [address], [address] [place] [address], [facility] * (ABNORMAL) Blood gas venous (03/06/2024 4:44 PM CDT) pH Venous 7.48(H) 7.32 - 7.43 03/06/2024 4:59 PM CDT [facility] pCO2 Venous 63(H) 40 - 50 mm Hg 03/06/2024 4:59 PM CDT [facility] pO2 Venous 27 25 - 47 mm Hg 03/06/2024 4:59 PM CDT [facility] Bicarbonate Venous 47(HH) 21 - 28 mmol/L 03/06/2024 4:59 PM CDT [facility] Base Excess/Deficit Venous 20.7(H) -3.0 - 3.0 mmol/L 03/06/2024 4:59 PM CDT [facility] FIO2 0 RUKHSA[facility] 03/06/2024 4:59 PM CDT [facility] Oxyhemoglobin Venous 42(L) 70 - 75 % 03/06/2024 4:59 PM CDT [facility] O2 Sat, Venous 42.8(L) 70.0 - 75.0 % 03/06/2024 4:59 PM CDT [facility] Blood, venous STRUCTURE OF LEFT HAND / Unknown Venipuncture / Unknown 03/06/2024 4:44 PM CDT 03/06/2024 4:52 PM CDT Narrative [facility] - 03/06/2024 4:59 PM CDT In healthy individuals, oxyhemoglobin (O2Hb) and oxygen saturation (SO2) are approximately equal. In the presence of dyshemoglobins, oxyhemoglobin can be considerably lower than oxygen saturation. Ezequiel Valladares MD LAB - BLOOD [facility] Lab [address] [facility] Lab (1st floor, no room number) [place] [address], [facility] * US Renal Complete Non-Vascular (03/06/2024 4:29 PM CDT) Anatomical Region Laterality Modality Abdomen/Pelvis Ultrasound Impressions 03/06/2024 4:48 PM CDT IMPRESSION: Unremarkable renal ultrasound examination. No hydronephrosis. THANH BARGER MD SYSTEM ID: [id number] Narrative 03/06/2024 4:48 PM CDT US RENAL COMPLETE NON-VASCULAR 03/06/2024 4:29 PM CLINICAL HISTORY: Acute kidney failure. TECHNIQUE: Routine Bilateral Renal and Bladder Ultrasound. COMPARISON: CT of the abdomen and pelvis 07/20/2021. FINDINGS: RIGHT KIDNEY: 9.4 x 3.6 x 4.9 cm. Normal without hydronephrosis or masses. LEFT KIDNEY: 9.3 x 4.5 x 5.1 cm. Normal without hydronephrosis or masses. BLADDER: Normal. Procedure Note Thanh Barger MD - 03/06/2024 US RENAL COMPLETE NON-VASCULAR 03/06/2024 4:29 PM CLINICAL HISTORY: Acute kidney failure. TECHNIQUE: Routine Bilateral Renal and Bladder Ultrasound. COMPARISON: CT of the abdomen and pelvis 07/20/2021. FINDINGS: RIGHT KIDNEY: 9.4 x 3.6 x 4.9 cm. Normal without hydronephrosis or masses. LEFT KIDNEY: 9.3 x 4.5 x 5.1 cm. Normal without hydronephrosis or masses. BLADDER: Normal. IMPRESSION: Unremarkable renal ultrasound examination. No hydronephrosis. THANH BARGER MD SYSTEM ID: [id number] Ezeqiuel Valladares MD IM US ORDERABLE S * Extra Heparinized Syringe (03/06/2024 2:19 PM CDT) [facility] Specimen [facility] 03/06/2024 3:31 PM CDT LABORATORY Blood, venous VENOUS LINE / Unknown Venipuncture / Unknown 03/06/2024 2:19 PM CDT 03/06/2024 2:23 PM CDT Ezequiel Valladares MD LAB - BLOOD ORDE [facility] Organization Address City/State/ZIP Co de Phone Number LABORATORY [facility] [address] [facility] Lab (1st floor, no room number) [place] [address], [facility] * Extra Red Top Tube (03/06/2024 2:19 PM CDT) Hold Specimen [facility] 03/06/2024 3:31 PM CDT LABORATORY Blood VENOUS LINE / Unknown Venipuncture / Unknown 03/06/2024 2:19 PM CDT 03/06/2024 2:23 PM CDT Ezequiel Valladares MD LAB - BLOOD [facility] [address] Lab (1st floor, no room number) [place] [address] * Extra Blue Top Tube (03/06/2024 2:19 PM CDT) Hold Specimen [facility] 03/06/2024 3:31 PM CDT LABORATORY Blood VENOUS LINE / Unknown Venipuncture / Unknown 03/06/2024 2:19 PM CDT 03/06/2024 2:23 PM CDT Ezequiel Valladares MD LAB - BLOOD [facility] [address] Lab (1st floor, no room number) [place] [address] * Vitamin D Deficiency (03/06/2024 2:19 PM CDT) [facility] Vitamin D, Total (25-Hydroxy) 33 20 - 50 ng/mL 03/07/2024 4:53 PM CDT [facility] Comment:optimum levels Blood BLOOD SPECIMEN / Unknown Venipuncture / Unknown 03/06/2024 2:19 PM CDT 03/06/2024 2:23 PM CDT Narrative [facility] - 03/07/2024 4:53 PM CDT Season, race, dietary intake, and treatment affect the concentration of 17-wewjnwu-Hditizi D. Values may decrease during winter months and increase during summer months. Vitamin D determination is routinely performed by an immunoassay specific for 25 hydroxyvitamin D3. ??If an individual is on vitamin D2(ergocalciferol) supplementation, please specify 25 [place] vitamin D2 and D3 level determination by LCMSMS test VITD23. Sean Freeman MD LAB - BLOOD ORD ERABLES [facility] [place] [facility] [address] [facility], Room [address] [place] [id number] * (ABNORMAL) Comprehensive metabolic panel (03/06/2024 2:19 PM CDT) Sodium 137 135 - 145 mmol/L 03/06/2024 3:42 PM CDT [facility] Potassium 3.3(L) 3.4 - 5.3 mmol/L 03/06/2024 3:42 PM CDT [facility] Carbon Dioxide (CO2) 40(H) 22 - 29 mmol/L 03/06/2024 3:42 PM CDT [facility] Anion Gap 18(H) 7 - 15 mmol/L 03/06/2024 3:42 PM CDT [facility] Urea Nitrogen 47.9(H) 6.0 - 20.0 mg/dL 03/06/2024 3:42 PM CDT [facility] Creatinine 3.54(H) 0.51 - 0.95 mg/dL 03/06/2024 3:42 PM CDT [facility] GFR Estimate 17(L) >60 mL/min/1.7 3m2 03/06/2024 3:42 PM CDT [facility] Comment:eGFR calculated usin g 2020 CKD-EPI equation. Calcium 13.2(H) 8.8 - 10.4 mg/dL 03/06/2024 3:42 PM CDT [facility] Comment:Reference intervals for this test were updated on 01/08/2024 to reflect our healthy population more accurately. There may be differences in the flagging of prior results with similar values performed with this method. Those prior results can be interpreted in the context of the updated reference intervals. Chloride 79(L) 98 - 107 mmol/L 03/06/2024 3:42 PM CDT [facility] Glucose 99 70 - 99 mg/dL 03/06/2024 3:42 PM CDT [facility] Alkaline Phosphatase 140 40 - 150 U/L 03/06/2024 3:42 PM CDT LABORATORY AST 22 0 - 45 U/L 03/06/2024 3:42 PM CDT LABORATORY ALT 14 0 - 50 U/L 03/06/2024 3:42 PM CDT LABORATORY Protein Total 8.8(H) 6.4 - 8.3 g/dL 03/06/2024 3:42 PM CDT LABORATORY Albumin 5.2 3.5 - 5.2 g/dL 03/06/2024 3:42 PM CDT LABORATORY Bilirubin Total 0.3 <=1.2 mg/dL 03/06/2024 3:42 PM CDT LABORATORY Blood BLOOD SPECIMEN / Unknown Venipuncture / Unknown 03/06/2024 2:19 PM CDT 03/06/2024 2:23 PM CDT Ezequiel Valladares MD LAB - BLOOD [facility] [place] [facility] Organization Address City/State/ZIP Co de Phone Number LABORATORY [facility] [address] [facility] Lab (1st floor, no room number) [place] [address], [facility] * (ABNORMAL) UA with Microscopic reflex to Culture (01/31/2023 9:25 PM CDT) Color Urine Straw Colorless, Straw, Light Yellow, Yellow 01/31/2023 9:38 PM CDT LABORATORY Appearance Urine Clear Clear 02/01/20 9:38 PM CDT LABORATORY Glucose Urine Negative Negative mg/dL 01/31/2023 9:38 PM CDT LABORATORY Bilirubin Urine Negative Negative 9:38 PM CDT LABORATORY Ketones Urine Negative Negative mg/dL 01/31/2023 9:38 PM CDT LABORATORY Specific [place] Urine 1.010 1.003 - 1.035 01/31/2023 9:38 PM CDT LABORATORY Blood Urine Negative Negative 01/31/2023 9:38 PM CDT LABORATORY pH Urine 8.0(H) 5.0 - 7.0 01/31/2023 9:38 PM CDT LABORATORY Protein Albumin Urine 20(A) Negative mg/dL 01/31/2023 9:38 PM CDT [facility] Urobilinogen Urine Normal Normal, 2.0 mg/dL 01/31/2023 9:38 PM CDT [facility] Nitrite Urine Negative Negative 01/31/2023 9:38 PM CDT [facility] Leukocyte Esterase Urine Negative Negative 01/31/2023 9:38 PM CDT [facility] Bacteria Urine Few(A) None Seen /HPF 01/31/2023 9:38 PM CDT [facility] RBC Urine <1 <=2 /HPF 01/31/2023 9:38 PM CDT [facility] WBC Urine 1 <=5 /HPF 01/31/2023 9:38 PM CDT [facility] Squamous Epithelials Urine <1 <=1 /HPF 01/31/2023 9:38 PM CDT [facility] Urine URINE SPECIMEN OBTAINED BY CLEAN CATCH PROCEDURE / Unknown Non-blood Collection / Unknown 01/31/2023 9:25 PM CDT 01/31/2023 9:30 PM CDT Narrative [facility] - 01/31/2023 9:38 PM CDT Urine Culture not indicated Elroy [place] MD LAB - URINE ORD ERABLES LABORATORY [facility] [address] Lab (1st floor, no room number) [place] [address], [facility] [phone] from Last 3 Months or Most Recently Relevant to Health Maintenance Advance Directives For more information, please contact: [phone] * Full Code (Latest Code Status on File) Date Activated Date Inactivated Comments 04/02/2024 5:36 PM 04/04/2024 11:52 AM All basic and advanced life-sustaining interventions are performed as appropriate Question Answer Comments Code status determined by: Discussion with patie nt/ legal decision maker * Full Code Date Activated Date Inactivated Comments 03/20/2024 8:28 PM 03/23/2024 2:51 PM All basic an d advanced life-sustaining interventions are performed as appropriate Question Answer Comments Code status determined by: Discussion with patie nt/ legal decision maker * Full Code Date Activated Date Inactivated Comments 03/06/2024 5:47 PM 03/12/2024 4:08 PM All basic an d advanced life-sustaining interventions are performed as appropriate Question Answer Comments Code status determined by: Discussion with patie nt/ legal decision maker * Full Code Date Activated Date Inactivated Comments 02/02/2023 8:10 AM 03/06/2024 1:10 PM Question Answer Comments Code status determined by: Discussion with patie nt/ legal decision maker * Full Code Date Activated Date Inactivated Comments 01/31/2023 10:58 PM 02/02/2023 8:10 AM All basic an d advanced life-sustaining interventions are performed as appropriate Question Answer Comments Code status determined by: Discussion with patie nt/ legal decision maker Care Teams Architectural Project Captain Relationship Specialty [place] [id number] [place] [address] PCP - General 03/07/24
--- OUTSIDE RECORDS SUMMARY | 2024-04-09 16:53 | XMS_ITS | Encounter Summary ---
Author Organization [place] Address [address] [place] [address] Care Team Providers Care Door To Door Lead Generation Name Role Phone Gregg Corrales MD Primary Care Provider Reason for Visit * Reason Onset Date Comments Clinic Care Coordination - Initial 03/25/2024 Encounter Details Date Type Department Care Team ([facility] st Contact Info) Description 03/25/2024 Telephone [facility] [address] 5[address] [place] [address] Tabitha Thomas MD [address] [place] [id number] Clinic Care Coordination - Initial Social History Tobacco Use Types Packs/Day Years [...] you got money to buy more? No 03/23/2024 Within the past 12 months, d id the food you bought just not last and you didn? t have money to get more? No 03/23/2024 Housing Stability Answer Date Recorded Do you have housing? (Housin g is defined as stable permanent housing and does not include staying ouside in a car, in a tent, in an abandoned building, in an overnight long-term, or couch-surfing.) Yes 03/23/2024 Are you worried about losing your housing? No 03/23/2024 Financial Resource Strain Answer Date R ecorded Within the past 12 months, h ave you or your family members you live with been unable to get utilities (heat, electricity) when it was really needed? No 03/23/2024 Transportation Needs Answer Date Record ed Within the past 12 months, h as lack of transportation kept you from medical appointments, getting your medicines, non-medical meetings or appointments, work, or from getting things that you need? No 03/23/2024 Interpersonal Safety Answer Date Record ed Do you feel physically and e motionally safe where you currently live? Yes 03/23/2024 Within the past 12 months, h ave you been hit, slapped, kicked or otherwise physically hurt by someone? No 03/23/2024 Within the past 12 months, h ave you been humiliated or emotionally abused in other ways by your partner or ex-partner? No 03/23/2024 Sex and Gender Information Value Date Recorded Sex Assigned at Not on file Gender Identity Not on file Sexual Orientation Not on file documented as of this encounter Miscellaneous Notes * Telephone Encounter - Riya Kinsey - 03/25/2024 10:12 AM CDT Patient confirmed rescheduled appointment from waitlist: Date: 03/27/24 Time: 7 AM Visit type: New patient Visit mode: In Person Provider: Dr. Tabitha Thomas [place] [facility] [place] in this encounter Plan of Treatment Not on file documented as of this encounter Visit Diagnoses Not on filedocumented in this encounter Care Teams Door To Door Lead Generation Relationship Specialty Start [place] [address] [place] [address] PCP - General 03/07/24 documented as of this encounter
--- OUTSIDE RECORDS SUMMARY | 2024-04-09 16:53 | XMS_ITS | Encounter Summary ---
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 [address] [place] [address] [facility] [address] [place] [address] Referral ID Status Reason Start Date Expiration Date V isits Requested Visits Authorized [id number] Pending Review 03/21/2024 03/21/2025 1 1 Question Answer Reason for Referral: Comprehensive Pain Evaluation Are there any red flags that may impact the assessment or management of the patient? No Red Flags Provider, please review opioid agreement in the process instructions above. Do you agree to these terms? Yes Scheduling Instructions: [employer] will call you to coordinate care as prescribed your provider. If you don? t hear from a statement services representative within 2 business days, please call . Additional Information: ESRD, recent hip fracture after a fall/osteoporosis with acute upon chronic pain Comments Please be aware that coverage of these services is subject to the terms and limitations of your health insurance plan. Call member services at your health plan with any benefit or coverage questions. [employer] will call you to coordinate care as prescribed your provider. If you don? t hear from a statement services representative within 2 business days, please call . Reason for Visit * Reason Comments Abnormal Labs * Auth/Cert (Routine) Specialty Diagnoses / Procedures Referred By Miguelangel t Referred To Contact Med Surg Diagnoses Right hip pain Inferior pubic ramus fracture, right, closed, initial encounter (H) Acute renal failure superimposed on chronic kidney disease, unspecified acute renal failure type, unspecified CKD stage (H) Acute renal failure superimposed on chronic kidney disease, unspecified acute renal failure type, unspecified CKD stage (H24) Right hip pain Observation Dept [address] [place] [address] Referral ID Status Reason Start Date Expiration Date Visits Re quested Visits Authorized [id number] 1 1 Encounter Details Date Type Department Care Team (Late st Contact Info) Description 03/20/2024 3:15 PM CDT - 03/23/2024 12:50 PM CDT Hospital Encounter [facility] Observation Dept [address] [place] [address] Michael Ruiz, [facility] [address] [place] [address] [place] [id number] Neal Melara MD [address] [place] [address] Gitelman syndrome (Primary Dx); Acute renal failure superimposed on chronic kidney disease, unspecified acute renal failure type, unspecified CKD stage (H); Right hip pain; Inferior pubic ramus fracture, right, closed, initial encounter (H); Chronic pain syndrome; Closed fracture of single ramus of right pubis, with delayed healing, subsequent encounter Discharge Disposition: Home or Self Care Social History Tobacco Use Types Packs/Day Years [...] in an abandoned building, in an overnight [place] [facility], or couch-surfing.) Yes 03/23/2024 Are you worried [...] on file documented as of this encounter Last Filed Vital Signs Vital Sign Reading Time Taken Comments Blood Pressure 122/84 03/23/2024 9:14 AM CDT Pulse 89 03/23/2024 9:14 AM CDT Temperature 36.6 ??C (97.9 ??F) 03/23/2024 9:14 AM CD T Respiratory Rate 17 03/23/2024 9:14 AM CDT Oxygen Saturation 100% 03/23/2024 9:14 AM CDT Inhaled Oxygen Concentration - - Weight 47.9 kg (105 lb 11.2 oz) 03/20/2024 8:04 PM CDT Height 170.2 cm (5' 7) 03/20/2024 8:04 PM CDT Body Mass Index 16.55 03/20/2024 8:04 PM CDT documented in this encounter Discharge Summaries * Mireya Franz PA-C - 03/23/2024 11:42 AM CDT [facility] Hospitalist Discharge Summary Date of Admission: 03/20/2024 Date of Discharge: 03/23/2024 Discharging Provider: Mireya Franz PA-C Discharge Service: Hospitalist Service Discharge Diagnoses Electrolyte Disturbances with hypokalemia, hypercalcemia Anion Gap Metabolic Disturbance BARBARA, hx of CKD 3a Gitelman Syndrome Fall with right hip pain in the setting of known recent right inferior pubic ramus fracture Iron Deficiency Anemia Follow-ups Needed After Discharge Follow-up Appointments Follow-up and recommended labs and tests Follow up with pain clinic on Sunday to schedule appointment early next week regarding pain medication use. Follow-up with your small engine specialist in the next 1 to 2 weeks for repeat labs, CBC and BMP. At time of discharge we have recommended you increase potassium to 80 mg 3 times a day and continue the spironolactone at 20 mg daily. Unresulted Labs Ordered in the Past 30 Days of this Admission Date and Time Order Name Status Description 03/21/2024 10:48 AM Diuretic Screen, Urine In process These results will be followed up by Plugger Worker, Florencia Figueroa Discharge Disposition Discharged to home Condition at discharge: Stable Hospital Course Lorraine Klein is a 33 year old female PMH significant for Gitelman syndrome with recurrent electrolyte derangements, CKD 3, iron deficiency anemia, fibromyalgia and chronic pain syndrome on gabapentin, and MDD who was admitted on 03/20/2024 for BARBARA and electrolyte derangements. Recently admitted for similar presentation from 03/06 to and noted to have minimally displaced right inferior pubic ramus fracture after a fall. Fell again on 03/20, reporting similar level ofpain to initial injury. Xray of pelvis and right hip shows mildly comminuted nondisplaced fracturesof the right inferior pubic ramus, no additional fracture, pubic symphysis and SI joints are intact. ED workup reveals: VSS, hemoglobin of 9.9, sodium of 134, potassium of 2.4, chloride of 80, CO2 of 80, BUN of 44.4, creatinine of 2.49, calcium of 10.8, anion gap of 19, magnesium WNL. She was admitted and started on potassium replacement protocol with IV fluid resuscitation. Nephrology was consulted. Pain management was consulted for assistance in guiding pain management plan with narcotics. The patient's electrolytes stabilized with IV fluid resuscitation and potassium replacement. She was restarted on spironolactone at 20 mg daily as she had been taking previously, her potassium dose was increased to 100 mill equivalents 3 times a day. She will need to recheck labs in about 1 week with her small engine specialist within the [facility] system. She has an upcoming follow-up appointment with the pain specialist. Problem List Electrolyte Disturbances with hypokalemia, hypercalcemia Anion Gap Metabolic Disturbance BARBARA, hx of CKD 3 Gitelman Syndrome Presented to ED based on recommendation by small engine specialist through [facility], Dr. Lancaster, who saw the patient in clinic on 03/21 where patient's kidney function on recent labs on 03/18 was elevated with creatinine of 3.27, calcium of 13.5, and chloride <80. ED labs appeared improved with creatinine of2.49. Potassium low at 2.4 and calcium slightly elevated at 10.8. ED provider discussed patient with her primary small engine specialist as well Dr. Bender extrusion operator for our nephrology team. It was recommended thepatient be fluid resuscitated with NS and potassium replaced with supplementation as well no current need for urgent dialysis (discussion patient had with primary small engine specialist in clinic). Nephrology was consulted. Pain management was consulted for assistance in guiding pain management plan with narcotics. The patient's electrolytes stabilized with IV fluid resuscitation and potassium replacement. She was restarted on spironolactone at 20 mg daily as she had been taking previously, her potassium dose was increased to 100 mill equivalents 3 times a day. She will need to recheck labs in about 1 week with her small engine specialist within the [facility] system. -do not exceed 300 mg of Gabapentin per day per nephrology -for hypercalcemia work up, NM Dual Isotope scan of Parathyroid hormone was recommended by Primary Plugger Worker. Unable to obtain here at [facility], will recommend to complete as outpatient. Fall with right hip pain in the setting of known recent right inferior pubic ramus fracture H/o Chronic pain syndrome and fibromyalgia Osteoporosis Patient fell while attempting to get into the bathtub on 03/20 and able to catch herself as she losther balance but landed onto her right hip causing increased pain not manageable with current oral regimen of PO Dilaudid, Robaxin, and Atarax that she had at home. Recently admitted for similar presentation from 03/06 to and noted to have minimally displaced right inferior pubic ramus fracture after a fall. Repeat x-ray of pelvis and right hip in ED showed comminuted nondisplaced fractures of the right inferior pubic ramus, no additional fracture. Pain Management Consult 03/21, recommendations as follows: Working on weaning narcotic pain medications -Adjuvants: Gabapentin 100 mg tid, Tylenol 1,000 mg tid, Robaxin 750 mg tid, Atarax 25 mg every 6 hrs PRN -Follow up /Discharge Recommendations - recommend prescribing the following at the time of discharge: Hydromorphone 4 mg tablets qid prn for ~3 days, Tylenol 1000 mg tid over the next 7 days, [id number] mg tid 5-7 days then prn, continue gabapentin 100 mg tid. -Understands needs to work to wean off of oral dilaudid, plans to follow up with Pain Clinic early next week Anemia Hgb baseline of 8-10. No bleeding symptoms. 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 Mireya Franz PA-C Interval History Afebrile. Voiding. No abdominal pain, vomiting. Denies any chest pain, shortness of breath or swelling. Reports her lightheadedness is getting better. Tolerating regular diet. No bleeding symptoms. Reports pain in right hip anteriorly and laterally from pubic rami fracture. She is independently ambulatory. Physical Exam Vital Signs: Temp: 97.9 ??F (36.6 ??C) Temp src: Oral BP: 122/84 Pulse: 89 Resp: 17 SpO2: 100 % O2 Device: None (Room air) Weight: 105 lbs 11.2 oz Constitutional: Awake, alert, no apparent distress Respiratory: Normal work of breathing. Lungs clear to auscultation bilaterally, no crackles or wheezing. Cardiovascular: Regular rate and rhythm, normal S1 and S2, and no murmur appreciated. GI: Bowel sounds present. soft, non-distended, non-tender. Skin/Integument: Warm, dry. no peripheral edema. Neuro: No focal deficits. Moving all extremities with normal strength. Coordination and sensation grossly intact. Speech clear. No focal deficits. MK: No LE edema. Tenderness over right buttocks and medial right thigh with palpation. No cyanosis.No acute joint synovitis noted. Psych: Appropriate affect. Primary Care Physician Gregg Corrales Discharge Orders Pain Management Pit Steward Referral Reason for your hospital stay Acute kidney injury with electrolyte disturbances. Recurrent fall. Follow-up and recommended labs and tests Follow up with pain clinic on Sunday to schedule appointment early next week regarding pain medication use. Follow-up with your small engine specialist in the next 1 to 2 weeks for repeat labs, CBC and BMP. At time of discharge we have recommended you increase potassium to 80 mg 3 times a day and continue the spironolactone at 20 mg daily. Activity Your activity upon discharge: activity as tolerated When to contact your care team Call your primary care doctor if you have any of the following: temperature greater than 101 F, worsening shortness of breath, increased swelling, worsening pain, new or unrelenting diarrhea, or any other concerning symptoms. Call 911 or go to the emergency room if you need immediate assistance. Diet Follow this diet upon discharge: Current Diet:Orders Placed This Encounter Regular Diet Adult Significant Results and Procedures Results for orders placed or performed during the hospital encounter of 03/20/24 XR Pelvis w Hip Right 1 View Narrative EXAM: XR PELVIS AND HIP RIGHT 1 VIEW LOCATION: [facility] DATE: 03/20/2024 INDICATION: Fall, Right hip pain, recent right pubic ramus fracture COMPARISON: 02/15/2024. Impression IMPRESSION: Mildly comminuted nondisplaced fractures of the right inferior pubic ramus. No additional fracture. The pubic symphysis and SI joints are intact. Hip joints are normally aligned, joint spacing is maintained. Discharge Medications Current Discharge Medication List START taking these medications Details acetaminophen (TYLENOL) 500 MG tablet Take 2 tablets (1,000 mg) by mouth 3 times daily for 7 days. After 03/30 change to every 8 hours as needed. Associated Diagnoses: Closed fracture of single ramus of right pubis, with delayed healing, subsequent encounter CONTINUE these medications which have CHANGED Details HYDROmorphone (DILAUDID) 2 MG tablet Take 1-2 tablets (2-4 mg) by mouth every 6 hours as needed forsevere pain (take 2 mg dose for pain scale <7/10, can take 4 mg dose for pain scale over 8/10). Qty: 15 tablet, Refills: 0 Associated Diagnoses: Closed fracture of single ramus of right pubis, with delayed healing, subsequent encounter methocarbamol (ROBAXIN) 750 MG tablet Take 1 tablet (750 mg) by mouth 3 times daily for 5 days. After 5 days, change to frequency of PRN. Associated Diagnoses: Closed fracture of single ramus of right pubis, with delayed healing, subsequent encounter potassium chloride deanne ER (KLOR-CON M20) 20 MEQ CR tablet Take 4 tablets (80 mEq) by mouth 3 timesdaily for 14 days. Qty: 112 tablet, Refills: 0 Associated Diagnoses: Gitelman syndrome senna-docusate (SENOKOT-S/PERICOLACE) 8.6-50 MG tablet Take 1 tablet by mouth 2 times daily as needed for constipation. Associated Diagnoses: Closed fracture of single ramus of right pubis, with delayed healing, subsequent encounter CONTINUE these medications which have NOT CHANGED Details ferrous sulfate 325 (65 Fe) MG TBEC EC tablet Take 325 mg by mouth 3 times daily. With food or snack gabapentin (NEURONTIN) 100 MG capsule Take 1 capsule (100 mg) by mouth 3 times daily. Qty: 90 capsule, Refills: 0 Associated Diagnoses: Closed fracture of single ramus of right pubis, with delayed healing, subsequent encounter hydrOXYzine HCl (ATARAX) 25 MG tablet Take 1-2 tablets (25-50 mg) by mouth every 6 hours as needed for other (adjuvant pain). Qty: 30 tablet, Refills: 0 Associated Diagnoses: Acute bilateral low back pain without sciatica magnesium oxide (MAG-OX) 400 MG tablet Take 400 mg by mouth 3 times daily multivitamin, therapeutic (THERA-VIT) TABS Take 1 tablet by mouth daily spironolactone (ALDACTONE) 25 MG tablet Take 1 tablet (25 mg) by mouth daily. Qty: 30 tablet, Refills: 0 Associated Diagnoses: Gitelman syndrome STOP taking these medications calcium carbonate (TUMS) 500 MG chewable tablet Comments: Reason for Stopping: Allergies Allergies Allergen Reactions Iron Sucrose Anxiety and Hives Other reaction(s): Edema, Edema, Gastrointestinal, GI intolerance, GI Upset, Irritation At Inj Site, Other (see comments) Duloxetine Other (See Comments) B/P droop, shaking/tremor/fuzzy B/P droop, shaking/tremor/fuzzy Duloxetine Hcl B/P droop Ferric Carboxymaltose Unknown and Other (See Comments) Irritation at the injection site. Pt declined continuing infusion at lower rate. Irritation at the injection site. Pt declined continuing infusion at lower rate. Iron Other reaction(s): Other (see comments) Associated attestation - Javed Arambula MD - 03/24/2024 8:48 AM CDT Physician Attestation I have reviewed and discussed with the advanced practice provider their discharge plan for Lorraine Klein. I did not participate in a shared visit by interviewing or examining the patient and this should be billed as an advanced practice provider only discharge. Javed Arambula MD Date of Service (when I saw the patient): I did not personally see this patient today. documented in this encounter Medications at Time of Discharge Medication Sig Dispensed Refills Start Date End Date ferrous sulfate 325 (65 Fe) MG TBEC EC tablet Take 325 mg by mouth 3 times daily. With food or snack gabapentin (NEURONTIN) 100 MG capsuleIndications:Supriya sed fracture of single ramus of right pubis, with delayed healing, subsequent encounter Take 1 capsule (100 mg) by mouth 3 times daily. 90 capsule 03/12/2024 hydrOXYzine HCl (ATARAX) 25 MG tabletIndications:Acut e bilateral low back pain without sciatica Take 1-2 tablets (25-50 mg) by mouth every 6 hours as needed for other (adjuvant pain). 30 tablet 03/12/2024 magnesium oxide (MAG-OX) 400 MG tablet Take 400 mg by mouth 3 times daily 03/06/2017 multivitamin, therapeutic (THERA-VIT) TABS Take 1 tablet by mouth daily senna-docusate (SENOKOT-S/PERICOLACE) 8.6-50 MG tabletIndications:Clos ed fracture of single ramus of right pubis, with delayed healing, subsequent encounter Take 1 tablet by mouth 2 times daily as needed for constipation. 03/23/2024 spironolactone (ALDACTONE) 25 MG tabletIndications:Gite lman syndrome Take 1 tablet (25 mg) by mouth daily. 30 tablet 03/12/2024 potassium chloride ER (K-TAB) 20 MEQ CR tabletIndications:Gite lman syndrome Take 4 tablets (80 mEq) by mouth 3 times daily for 14 days. 168 tablet 03/23/2024 04/06/2024 acetaminophen (TYLENOL) 500 MG tabletIndications:Clos ed fracture of single ramus of right pubis, with delayed healing, subsequent encounter Take 2 tablets (1,000 mg) by mouth 3 times daily for 7 days. After 03/30 change to every 8 hours as needed. 03/23/2024 03/30/2024 HYDROmorphone (DILAUDID) 2 MG tabletIndications:Clos ed fracture of single ramus of right pubis, with delayed healing, subsequent encounter Take 1-2 tablets (2-4 mg) by mouth every 6 hours as needed for severe pain (take 2 mg dose for pain scale <7/10, can take 4 mg dose for pain scale over 8/10). 15 tablet 03/23/2024 03/26/2024 methocarbamol (ROBAXIN) 750 MG tabletIndications:Clos ed fracture of single ramus of right pubis, with delayed healing, subsequent encounter Take 1 tablet (750 mg) by mouth 3 times daily for 5 days. After 5 days, change to frequency of PRN. 03/23/2024 03/28/2024 documented as of this encounter Progress Notes * Javon Devine MD - 03/22/2024 11:53 AM CDT [facility] Renal Progress Note SHORTHAND MCELROY FOR MY NOTES: c = with, s = without, p = after, a = before, x = except, asx = asymptomatic, tx = transplant or treatment, sx = symptoms or symptomatic, cx = canceled or culture, rxn = reaction, yday = yesterday, nl = normal, abx = antibiotics, fxn = function, dx = diagnosis, dz = disease, m/h = melena/hematochezia, c/d/l/winn = cramping/dizziness/lightheadedness/headache, d/c = discharge or diarrhea/constipation, f/c/n/v = fevers/chills/nausea/vomiting, cp/sob = chest pain/shortnessof breath, tbv = total body volume, rxn = reaction, tdc = tunneled dialysis catheter, tug boat captain = prior to admission, hd = hemodialysis, pd = peritoneal dialysis, hhd = home hemodialysis, edw = estimated dry wt Assessment/Plan: 1. BARBARA/CKD IIIa. Pt's cr has returned to baseline c fluids. A. Stop IVF and see how she does on her own. B. Follow labs, uo, sx daily. 2. Hypokalemia 2 Gitelman's. Pt's K is in the nl range today c scheduled supps + IVF. She rec'd ~48mEq of KCl in the fluids + the 240 oral. She is on spirono. A. Increase KCl to 100 tid. B. Follow labs. C. Encourage high K food intake. D. Continue spirono. E. Diuretic screen pending (per Dr. Benavides's request). 3. Hypercalcemia. Pt's Ca is in the nl range c fluids. A. Follow Ca as it may rise again now that fluids have been stopped. B. Check nuc med parathyroid scan per Dr. Benavides's request. 4. Fe def anemia. Her hb is stable. She remains fe def. She takes ferrous sulfate at home, per homemeds. A. Follow clinically. B. Defer to Hosp team to decide re oral fe. 5. FEN. High K diet. Case d/w Mireya Franz PA-C. Interval History: Pt feels ok today. She still has pain from her fall and is taking a lot of Dilaudid. Encouraged herto move around more. Medications and Allergies: Current Facility-Administered Medications Medication Dose Route Frequency Provider Last Rate Last Admin acetaminophen (TYLENOL) tablet 1,000 mg 1,000 mg Oral TID Julia Vee PA-C 1,000 mg at 03/22/24 0835 apixaban ANTICOAGULANT (ELIQUIS) tablet 2.5 mg 2.5 mg Oral BID Mireya Franz PA-C gabapentin (NEURONTIN) capsule 100 mg 100 mg Oral TID Julia Vee PA-C 100 mg at 03/22/24 0835 HYDROmorphone (DILAUDID) tablet 4 mg 4 mg Oral Q6H Mireya Franz PA-C 4 mg at 03/22/24 1100 magnesium oxide (MAG-OX) tablet 400 mg 400 mg Oral TID Julia Vee PA-C 400 mg at 835 methocarbamol (ROBAXIN) tablet 750 mg 750 mg Oral TID Julia Vee PA-C 750 mg at 03/22/24 0835 potassium chloride deanne ER (KLOR-CON M20) CR tablet 80 mEq 80 mEq Oral TID Javon Devine MD 80 mEqat 03/22/24 0835 Allergies Allergen Reactions Iron Sucrose Anxiety and Hives Other reaction(s): Edema, Edema, Gastrointestinal, GI intolerance, GI Upset, Irritation At Inj Site, Other (see comments) Duloxetine Other (See Comments) B/P droop, shaking/tremor/fuzzy B/P droop, shaking/tremor/fuzzy Duloxetine Hcl B/P droop Ferric Carboxymaltose Unknown and Other (See Comments) Irritation at the injection site. Pt declined continuing infusion at lower rate. Irritation at the injection site. Pt declined continuing infusion at lower rate. Iron Other reaction(s): Other (see comments) Physical Exam: Vitals were reviewed , Blood pressure 92/64, pulse 71, temperature 98 ??F (36.7 ??C), temperature source Oral, resp. rate 18, height 1.702 m (5' 7), weight 47.9 kg (105 lb 11.2 oz), SpO2 99%, not currently . Wt Readings from Last 3 Encounters: 03/20/24 47.9 kg (105 lb 11.2 oz) 03/12/24 47.8 kg (105 lb 6.4 oz) 02/01/23 57.2 kg (126 lb 1.6 oz) Intake/Output Summary (Last 24 hours) at 03/22/2024 1153 Last data filed at 03/22/2024 0900 Gross per 24 hour Intake 1850 ml Output 1100 ml Net 750 ml GENERAL APPEARANCE: pleasant, NAD, alert RESP: breathing ok CV: RRR ABDOMEN: s/nt/nd EXTREMITIES/SKIN: no ble edema Data: CBC RESULTS: Recent Labs Lab 03/22/24 0503/21/24 0603/20/24 1615 WBC 9.8 7.0 6.2 RBC 3.21* 3.06* 3.62* HGB 8.9* 8.5* 9.9* HCT 27.7* 25.8* 29.6* PLT 427 390 484* Basic Metabolic Panel: Recent Labs Lab 03/22/24 0503/21/24195303/21/24 1228 03/21/24 0925 03/21/24 0635 03/21/24 0258 03/20/24211803/20/24 1615 NA 142 -- -- -- 138 -- -- 134* POTASSIUM 3.8 3.9 3.5 3.1* 2.9* 2.8* < > 2.4* CHLORIDE 100 -- -- -- 93* -- -- 80* CO2 30* -- -- -- 37* -- -- 35* BUN 29.0* -- -- -- 37.5* -- -- 44.4* CR 1.45* -- -- -- 2.04* -- -- 2.49* GLC 127* -- -- -- 105* -- -- 88 ELKE 9.4 -- -- -- 9.5 -- -- 10.8* < > = values in this interval not displayed. INRNo lab results found in last 7 days. Attestation: I have reviewed today's relevant vital signs, notes, medications, labs and imaging. Javon Devine MD [facility] - Nephrology [phone] * Mireya Franz PA-C - 03/22/2024 11:15 AM CDT [facility] Medicine Progress Note - Hospitalist Service Date of Admission: 03/20/2024 Assessment & Plan Lorraine Klein is a 33 year old female PMH significant for Gitelman syndrome with recurrent electrolyte derangements, CKD 3, iron deficiency anemia, fibromyalgia and chronicpain syndrome on gabapentin, and MDD who was admitted on 03/20/2024 for BARBARA and electrolyte derangements. Recently admitted for similar presentation from 03/06 to and noted to have minimally displaced right inferior pubic ramus fracture after a fall. Fell again on 03/20, reporting similar level ofpain to initial injury. Xray of pelvis and right hip shows mildly comminuted nondisplaced fracturesof the right inferior pubic ramus, no additional fracture, pubic symphysis and SI joints are intact. ED workup reveals: VSS, hemoglobin of 9.9, sodium of 134, potassium of 2.4, chloride of 80, CO2 of 80, BUN of 44.4, creatinine of 2.49, calcium of 10.8, anion gap of 19, magnesium WNL. She was admitted and started on potassium replacement protocol with IV fluid resuscitation. Nephrology was consulted. Pain management was consulted for assistance in guiding pain management plan with narcotics to transition her at some point to oral medications at discharge. Electrolyte Disturbances with hypokalemia, hypercalcemia Anion Gap Metabolic Disturbance BARBARA, hx of CKD 3 Gitelman Syndrome Presented to ED based on recommendation by small engine specialist through Dr. Tonny Don, who saw the patient in clinic on 03/21 where patient's kidney function on recent labs on 03/18 was elevated with creatinine of 3.27, calcium of 13.5, and chloride <80. ED labs appeared improved with creatinine of2.49. Potassium low at 2.4 and calcium slightly elevated at 10.8. ED provider discussed patient with her primary small engine specialist as well Dr. Bender extrusion operator for our nephrology team. It was recommended thepatient be fluid resuscitated with NS and potassium replaced with supplementation as well no current need for urgent dialysis (discussion patient had with primary small engine specialist in clinic). -trial of stopped IV fluids as of 03/22 -Potassium chloride was increased to 100 mill equivalents 3 times daily -ok to discontinue telemetry now that K above 3 -avoid NSAIDs -do not exceed 300 mg of Gabapentin per day per nephrology -resume OXYGEN TANK FILLER Spirolactone -Nephrology consulted here -for hypercalcemia work up, NM Dual Isotope scan of Parathyroid hormone was recommended by Primary Plugger Worker. Unable to obtain here at [facility], will recommend to complete as outpatient. Minimally displaced right inferior pubic ramus fracture S/p mechanical fall (03/20/2024) H/o chronic pain syndrome and fibromyalgia Osteoporosis Patient fell while attempting to get into the bathtub on 03/20 and able to catch herself as she losther balance but landed onto her right hip causing increased pain not manageable with current oral regimen of PO Dilaudid, Robaxin, and Atarax that she had at home. Recently admitted for similar presentation from 03/06 to and noted to have minimally displaced right inferior pubic ramus fracture after a fall. Repeat x-ray of pelvis and right hip in ED showed comminuted nondisplaced fractures of the right inferior pubic ramus, no additional fracture. Pain Management Consult 03/21, recommendations as follows: Working on weaning narcotic pain medications -Adjuvants: Gabapentin 100 mg tid, Tylenol 1,000 mg tid, Robaxin 750 mg tid, Atarax 25 mg every 6 hrs PRN -Opioids: Hydromorphone PO 4 mg every 4 hrs PRN, (consider scheduling hydromorphone 2-4 mg every 6 hours with additional 2 mg every three hours prn when transitioning off IV Pain meds) -Hydromorphone IV 0.5 mg tid PRN Non-medication interventions- Ice, heat -Constipation Prophylaxis- Senna prn -Follow up /Discharge Recommendations - recommend prescribing the following at the time of discharge: Hydromorphone 4 mg tablets qid prn for 5 days, Tylenol 1000 mg tid over the next 7 days, Robaxin 750 mg tid 5-7 days then prn, continue gabapentin 100 mg tid. Anemia Hgb stable at 9, baseline of 8-10 -continue OXYGEN TANK FILLER iron Diet: Regular Diet Adult DVT Prophylaxis: INDICATED given fracture with reduced mobility and hospital stay. DOAC at prophylactic dose to replace sub Q heparin, patient refused as does not tolerate injections. Patton Catheter: Not present Lines: None Cardiac Monitoring: None Code Status: Full Code Clinically Significant Risk Factors Present on Admission # Hypokalemia: Lowest K = 2.4 mmol/L in last 2 days, will replace as needed # Hyponatremia: Lowest Na = 134 mmol/L in last 2 days, will monitor as appropriate # Hypercalcemia: Highest Ca = 10.8 mg/dL in last 2 days, will monitor as appropriate # Anion Gap Metabolic Acidosis: Highest Anion Gap = 19 mmol/L in last 2 days, will monitor and treat as appropriate # Anemia: based on hgb <11 # Cachexia: Estimated body mass index is 16.55 kg/m?? as calculated from the following: Height as of this encounter: 1.702 m (5' 7). Weight as of this encounter: 47.9 kg (105 lb 11.2 oz). Disposition Plan Expected Discharge Date: 03/23/2024 Mireya Franz PA-C Hospitalist Service Securely message with [employer] (more info) Text page via [facility] Paging/Directory Interval History Afebrile. Voiding. Has had 2 bowel movements this morning. No abdominal pain, vomiting. Denies any chest pain, shortness of breath or swelling. Reports her lightheadedness is getting better. Tolerating regular diet. Reports pain in right hip anteriorly and laterally from pubic rami fracture. She reports that sinceher repeat fall on the 26 that her pain was as bad as it was when she initially was diagnosed with a fracture. Pain ratings today ranging from 4-10 out of 10. Has received a total of 7.3 mg HM in the last 24 hours. Physical Exam Vital Signs: Temp: 98 ??F (36.7 ??C) Temp src: Oral BP: 92/64 Pulse: 71 Resp: 18 SpO2: 99 % O2 Device: None (Room air) Weight: 105 lbs 11.2 oz Constitutional: Awake, alert, no apparent distress Respiratory: Normal work of breathing. Lungs clear to auscultation bilaterally, no crackles or wheezing. Cardiovascular: Regular rate and rhythm, normal S1 and S2, and no murmur appreciated. GI: Bowel sounds present. soft, non-distended, non-tender. MK: No LE edema. Tenderness over right buttocks and medial right thigh with palpation. No cyanosis.No acute joint synovitis noted. Medical Decision Making 55 MINUTES SPENT BY ME on the date of service doing chart review, history, exam, documentation & further activities per the note. 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 Recently admitted for similar presentation from 03/06 to and noted to have minimally displaced right inferior pubic ramus fracture after a fall. ED workup reveals: VSS, hemoglobin of 9.9, sodium of 134, potassium of 2.4, chloride of 80, CO2 of 80, BUN of 44.4, creatinine of 2.49, calcium of 10.8, anion gap of 19, magnesium WNL, and x-ray of pelvis and right hip shows mildly comminuted nondisplaced fractures of the right inferior pubic ramus, no additional fracture, pubic symphysis and SI joints are intact. She was admitted and started on potassium replacement protocol with IV fluid resuscitation. Electrolyte Disturbances with hypokalemia, hypercalcemia Anion Gap Metabolic Disturbance BARBARA, hx of CKD 3 Gitelman Syndrome Presented to ED based on recommendation by small engine specialist through [place], Dr. Lancaster, who saw the patient in clinic on 03/21 where patient's kidney function on recent labs on 03/18 was elevated with creatinine of 3.27, calcium of 13.5, and chloride <80. ED labs appeared improved with creatinine of2.49. Potassium low at 2.4 and calcium slightly elevated at 10.8. ED provider discussed patient with her primary small engine specialist as well Dr. Bender extrusion operator for our nephrology team. It was recommended thepatient be fluid resuscitated with NS and potassium replaced with supplementation as well no current need for urgent dialysis (discussion patient had with primary small engine specialist in clinic). -IVF hydration with NS at 100 ml/hour added potassium to fluids -Potassium chloride was increased to 80 mill equivalents 3 times daily -at 1900 recheck K, if above 4 remove replacement protocol and remove potassium from IV fluids. -monitor on telemetry due to electrolyte disturbances -follow BMP daily while admitted -avoid NSAIDs -do not exceed 300 mg of Gabapentin per day per nephrology -hold Spirolactone (per patient she was told to discontinue all together by nephrology in clinic on03/21 -Nephrology consulted here -for hypercalcemia work up, NM Dual Isotope scan of Parathyroid hormone was recommended by Primary Plugger Worker. Unable to obtain here at [facility], will recommend to complete as outpatient. Minimally displaced right inferior pubic ramus fracture S/p mechanical fall (03/20/2024) H/o chronic pain syndrome and fibromyalgia Osteoporosis Patient fell while attempting to get into the bathtub on 03/20 and able to catch herself as she losther balance but landed onto her right hip causing increased pain not manageable with current oral regimen of PO Dilaudid, Robaxin, and Atarax that she had at home. Recently admitted for similar presentation from 03/06 to and noted to have minimally displaced right inferior pubic ramus fracture after a fall. Repeat x-ray of pelvis and right hip in ED showed comminuted nondisplaced fractures of the right inferior pubic ramus, no additional fracture. -pain control with scheduled Tylenol, Robaxin, PRN Atarax, and PO Dilaudid -IV Dilaudid ordered for severe break through pain, discussed importance of oral regimen to patient -Pain management consult #Anemia Hgb stable at 9, baseline of 8-10 -continue OXYGEN TANK FILLER iron Diet: Regular Diet Adult DVT Prophylaxis: Heparin sub q Patton Catheter: Not present Lines: None Cardiac Monitoring: ACTIVE order. Indication: Electrolyte Imbalance (24 hours)- Magnesium <1.3 mg/ml; Potassium < =2.8 or > 5.5 mg/ml Code Status: Full Code Clinically Significant Risk Factors Present on Admission # Hypokalemia: Lowest K = 2.4 mmol/L in last 2 days, will replace as needed # Hyponatremia: Lowest Na = 134 mmol/L in last 2 days, will monitor as appropriate # Hypercalcemia: Highest Ca = 10.8 mg/dL in last 2 days, will monitor as appropriate # Anion Gap Metabolic Acidosis: Highest Anion Gap = 19 mmol/L in last 2 days, will monitor and treat as appropriate # Anemia: based on hgb <11 # Cachexia: Estimated body mass index is 16.55 kg/m?? as calculated from the following: Height as of this encounter: 1.702 m (5' 7). Weight as of this encounter: 47.9 kg (105 lb 11.2 oz). Disposition Plan Expected Discharge Date: 03/23/2024 Mireya Franz PA-C Hospitalist Service Securely message with [employer] (more info) Text page via [facility] Paging/Directory Interval History Assumed care. Voiding. Consuming oral fluids. Denies any swelling or edema. Tolerating diet, ate 50% of meal. No constipation. Denies abdominal pain. Reports pain in right hipanteriorly from pubic rami fracture, increased since fall on 03/20. No sedation or somnolence from pain medication. Physical Exam Vital Signs: Temp: 98 ??F (36.7 ??C) Temp src: Oral BP: 111/72 Pulse: 72 Resp: 16 SpO2: 98 % O2 Device: None (Room air) Weight: 105 lbs 11.2 oz Constitutional: Awake, alert, no apparent distress Respiratory: Normal work of breathing. Lungs clear to auscultation bilaterally, no crackles or wheezing. Cardiovascular: Regular rate and rhythm, normal S1 and S2, and no murmur appreciated. GI: Bowel sounds present. soft, non-distended, non-tender. MK: No LE edema. Tenderness over right buttocks and medial right thigh with palpation. No cyanosis.No acute joint synovitis noted. Medical Decision Making 55 MINUTES SPENT BY ME on the date of service doing chart review, history, exam, documentation & further activities per the note. 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 Recently admitted for similar presentation from03/06 to and noted to have minimally displaced right inferior pubic ramus fracture after a fall. ED workup reveals: VSS, hemoglobin of 9.9, sodium of 134, potassium of 2.4, chloride of 80, CO2 of 80, BUN of 44.4, creatinine of 2.49, calcium of 10.8, anion gap of 19, magnesium WNL, and x-ray of pelvis and right hip shows mildly comminuted nondisplaced fractures of the right inferior pubic ramus, no additional fracture, pubic symphysis and SI joints are intact. #Gitelman syndrome #Acute hypokalemia #Acute hypercalcemia #BARBARA on CKD III #Metabolic alkalosis with compensatory respiratory acidosis Presented to ED based on recommendation by small engine specialist through Dr. Tonny Don, who saw the patient in clinic on 03/21 where patient's kidney function on recent labs on 03/18 was elevated with creatinine of 3.27, calcium of 13.5, and chloride <80. ED labs appeared improved with creatinine of2.49. Potassium low at 2.4 and calcium slightly elevated at 10.8. ED provider discussed patient with her primary small engine specialist as well Dr. Bender extrusion operator for our nephrology team. It was recommended thepatient be fluid resuscitated with NS and potassium replaced with supplementation as well no current need for urgent dialysis (discussion patient had with primary small engine specialist in clinic). -IVF hydration with NS at 100 ml/hour -continue OXYGEN TANK FILLER potassium chloride 80 mmEq BID + potassium protocol -monitor on telemetry due to electrolyte disturbances -follow BMP daily while admitted -hold off on Nephrology consult, pending lab improvement in AM could consider involvement at that time -avoid NSAIDs -do not exceed 300 mg of Gabapentin per day per nephrology -hold Spirolactone (per patient she was told to discontinue all together by nephrology in clinic on03/21 -continue outpatient follow up with nephrology #Minimally displaced right inferior pubic ramus fracture #S/p mechanical fall (03/20/2024) #H/o chronic pain syndrome and fibromyalgia #Osteoporosis Diagnosed in 01/2023 with issues with ongoing pain. Patient fell while attempting to get into the bathtub on 03/20 and able to catch herself as she lost her balance but landed onto her right hip causing increased pain not manageable with current oral regimen of PO Dilaudid, Robaxin, and Atarax that she had at home. Repeat x-ray of pelvis and right hip in ED showed comminuted nondisplaced fracturesof the right inferior pubic ramus, no additional fracture. -pain control with scheduled Tylenol, Robaxin, PRN Atarax, and PO Dilaudid -IV Dilaudid ordered for severe break through pain, discussed importance of oral regimen to patient #Anemia Hgb stable at 9, baseline of 8-10 -continue OXYGEN TANK FILLER iron Clinically Significant Risk Factors Present on Admission # Hypokalemia: Lowest K = 2.4 mmol/L in last 2 days, will replace as needed # Hyponatremia: Lowest Na = 134 mmol/L in last 2 days, will monitor as appropriate # Hypercalcemia: Highest Ca = 10.8 mg/dL in last 2 days, will monitor as appropriate # Anion Gap Metabolic Acidosis: Highest Anion Gap = 19 mmol/L in last 2 days, will monitor and treat as appropriate # Acute Kidney Injury, unspecified: based on a >150% or 0.3 mg/dL increase in last creatinine compared to past 90 day average, will monitor renal function # Anemia: based on hgb <11 # Cachexia: Estimated body mass index is 16.62 kg/m?? as calculated from the following: Height as of this encounter: 1.702 m (5' 7). Weight as of this encounter: 48.1 kg (106 lb 1.6 oz). DVT Prophylaxis: Pneumatic Compression Devices Code Status: Full Code, discussed with patient Disposition: Expected discharge in 24-48 hours, will admit to observation Primary Care Physician Gregg Corrales Chief Complaint BARBARA, hypokalemia History obtained from discussion with ED provider, Dr. Ruiz, chart review, and interview with patient. History of Present Illness Lorraine Klein is a 33 year old female who presents based on recommendation by her primary small engine specialist through [facility]. Patient saw him in follow-up today and there was concern that she had elevated kidney function with creatinine almost at 4 and GFR of 19. She has recently been feeling lightheaded, weak, and shaky. She states she has these symptoms at baseline that she typically just deals with. She has been nauseous without vomiting. She has been trying to drink plenty of fluids and has been tolerating a moderate amount of food intake. Denies any numbness, tingling, chest pain, shortness of breath, fever, chills, or dizziness. The patient reports that she fell getting into the tub yesterday and landed onto her right side. She did not hit her head or have loss of consciousness. She tried taking her previously prescribed oral Dilaudid, Robaxin, and Atarax at home without much relief. She has been using a walker at home for stability. She also notes using heat and ice as it allows comfort for her pain. Past Medical History Past Medical History: Diagnosis Date Anemia Depressive disorder Fibromyalgia Gastroparesis Gitelman syndrome 10/28/2017 IBS (irritable bowel syndrome) SBO (small bowel obstruction) (H) Past Surgical History Past Surgical History: Procedure Laterality Date APPENDECTOMY 1999 open ESOPHAGOSCOPY, GASTROSCOPY, DUODENOSCOPY (EGD), COMBINED Left 11/03/2019 Procedure: ESOPHAGOGASTRODUODENOSCOPY, WITH BIOPSIES; Surgeon: Kevin Cook MD; Location: [facility] EXCISE LESION AXILLA Left IR CHEST PORT PLACEMENT > 5 YRS OF AGE 701/04/2016 LAPAROSCOPY DIAGNOSTIC (GENERAL) 2017 takedown of gtube site Prior to Admission Medications Prior to Admission Medications Prescriptions Last Dose Informant Patient Reported? Taking? HYDROmorphone (DILAUDID) 4 MG tablet No No Sig: Take 1 tablet (4 mg) by mouth every 6 hours as needed for moderate to severe pain. calcium carbonate (TUMS) 500 MG chewable tablet Yes No Sig: Take 1-2 chew tab by mouth daily as needed for heartburn ferrous sulfate 325 (65 Fe) MG TBEC EC tablet Yes No Sig: Take 325 mg by mouth 3 times daily. With food or snack gabapentin (NEURONTIN) 100 MG capsule No No Sig: Take 1 capsule (100 mg) by mouth 3 times daily. hydrOXYzine HCl (ATARAX) 25 MG tablet No No Sig: Take 1-2 tablets (25-50 mg) by mouth every 6 hours as needed for other (adjuvant pain). magnesium oxide (MAG-OX) 400 MG tablet Yes No Sig: Take 400 mg by mouth 3 times daily methocarbamol (ROBAXIN) 750 MG tablet Yes No Sig: Take 750 mg by mouth every 6 hours as needed for muscle spasms. multivitamin, therapeutic (THERA-VIT) TABS Self Yes No Sig: Take 1 tablet by mouth daily potassium chloride deanne ER (KLOR-CON M20) 20 MEQ CR tablet No No Sig: Take 4 tablets (80 mEq) by mouth 2 times daily for 14 days. senna-docusate (SENOKOT-S/PERICOLACE) 8.6-50 MG tablet No No Sig: Take 1 tablet by mouth daily. spironolactone (ALDACTONE) 25 MG tablet No No Sig: Take 1 tablet (25 mg) by mouth daily. Facility-Administered Medications: None Allergies Allergies Allergen Reactions Iron Sucrose Anxiety and Hives Other reaction(s): Edema, Edema, Gastrointestinal, GI intolerance, GI Upset, Irritation At Inj Site, Other (see comments) Duloxetine Other (See Comments) B/P droop, shaking/tremor/fuzzy B/P droop, shaking/tremor/fuzzy Duloxetine Hcl B/P droop Ferric Carboxymaltose Unknown and Other (See Comments) Irritation at the injection site. Pt declined continuing infusion at lower rate. Irritation at the injection site. Pt declined continuing infusion at lower rate. Iron Other reaction(s): Other (see comments) Social History Social History Tobacco Use Smoking status: Never Smokeless tobacco: Never Substance Use Topics Alcohol use: No Social History Social History Narrative Lives with parents Has 2 sisters Family History Family history reviewed with patient and is noncontributory. Review of Systems A Comprehensive greater than 10 system review of systems was carried out. Pertinent positives and negatives are noted above. Otherwise negative for contributory information. Physical Exam Temp: 98 ??F (36.7 ??C) Temp src: Oral BP: 118/82 Pulse: 76 Resp: 18 SpO2: 100 % O2 Device: None (Room air) Vital Signs with Ranges Temp: [98 ??F (36.7 ??C)] 98 ??F (36.7 ??C) Pulse: [76-95] 76 Resp: [18] 18 BP: (112-124)/(82-91) 118/82 SpO2: [92 %-100 %] 100 % 106 lbs 1.6 oz GEN: Alert, oriented x 3, appears comfortable laying in bed, thin appearing, no overt distress HEENT: Normocephalic/atraumatic, no scleral icterus, no nasal discharge, mouth moist. CV: Regular rate and rhythm, no murmur or JVD. S1 + S2 noted, no S3 or S4. LUNGS: Clear to auscultation bilaterally without rales/rhonchi/wheezing/retractions. Symmetric chest rise on inhalation noted. ABD: Active bowel sounds, soft, non-tender/non-distended. No rebound/guarding/rigidity. EXT: No LE edema. Tenderness over right buttocks and medial right thigh with palpation. No cyanosis. No acute joint synovitis noted. SKIN: Dry to touch, no exanthems noted in the visualized areas. NEURO: Symmetric muscle strength, sensation to touch grossly intact. Coordination symmetric on general exam. No new focal deficits appreciated. Data Data reviewed today: I personally reviewed labs and imaging from this visit. Results for orders placed or performed during the hospital encounter of 03/20/24 XR Pelvis w Hip Right 1 View Status: None Narrative EXAM: XR PELVIS AND HIP RIGHT 1 VIEW LOCATION: [facility] DATE: 03/20/2024 INDICATION: Fall, Right hip pain, recent right pubic ramus fracture COMPARISON: 02/15/2024. Impression IMPRESSION: Mildly comminuted nondisplaced fractures of the right inferior pubic ramus. No additional fracture. The pubic symphysis and SI joints are intact. Hip joints are normally aligned, joint spacing is maintained. Basic metabolic panel Status: Abnormal Result Value Ref Range Sodium 134 (L) 135 - 145 mmol/L Potassium 2.4 (LL) 3.4 - 5.3 mmol/L Chloride 80 (L) 98 - 107 mmol/L Carbon Dioxide (CO2) 35 (H) 22 - 29 mmol/L Anion Gap 19 (H) 7 - 15 mmol/L Urea Nitrogen 44.4 (H) 6.0 - 20.0 mg/dL Creatinine 2.49 (H) 0.51 - 0.95 mg/dL GFR Estimate 26 (L) >60 mL/min/1.73m2 Calcium 10.8 (H) 8.8 - 10.4 mg/dL Glucose 88 70 - 99 mg/dL CBC with platelets and differential Status: Abnormal Result Value Ref Range WBC Count 6.2 4.0 - 11.0 10e3/uL RBC Count 3.62 (L) 3.80 - 5.20 10e6/uL Hemoglobin 9.9 (L) 11.7 - 15.7 g/dL Hematocrit 29.6 (L) 35.0 - 47.0 % MCV 82 78 - 100 fL MCH 27.3 26.5 - 33.0 pg MCHC 33.4 31.5 - 36.5 g/dL RDW 15.9 (H) 10.0 - 15.0 % Platelet Count 484 (H) 150 - 450 10e3/uL % Neutrophils 53 % % Lymphocytes 35 % % Monocytes 9 % % Eosinophils 2 % % Basophils 2 % % Immature Granulocytes 1 % NRBCs per 100 WBC 0 <1 /100 Absolute Neutrophils 3.3 1.6 - 8.3 10e3/uL Absolute Lymphocytes 2.1 0.8 - 5.3 10e3/uL Absolute Monocytes 0.6 0.0 - 1.3 10e3/uL Absolute Eosinophils 0.1 0.0 - 0.7 10e3/uL Absolute Basophils 0.1 0.0 - 0.2 10e3/uL Absolute Immature Granulocytes 0.0 <=0.4 10e3/uL Absolute NRBCs 0.0 10e3/uL Magnesium Status: Normal Result Value Ref Range Magnesium 2.1 1.7 - 2.3 mg/dL CBC with platelets differential Status: Abnormal Narrative The following orders were created for panel order CBC with platelets differential. Procedure Abnormality Status --------- ------ CBC with platelets and d...[[id number]] Abnormal Final result Please view results for these tests on the individual orders. Julia Vee PA-C [facility] Securely message with the [employer] (learn more here) Text page via [facility] Paging/Directory Associated attestation - Neal Melara MD - 03/21/2024 12:43 PM CDT Physician Attestation I have reviewed and discussed with the advanced practice provider their history, physical and plan for Lorraine Klein. I did not participate in a shared visit; this is an advanced practice provider only visit. Neal Melara MD Date of Service (when I saw the patient): I did not personally see this patient today. documented in this encounter Consult Notes * Irish Tidwell, WATER TREATMENT PLANT REPAIRER MASSAGE COORDINATOR - 03/21/2024 12:57 PM CDTAssociated Order(s): PAIN MANAGEMENT ADULT IP CONSULT Images from the original note were not included. [facility] ([facility], [facility], [facility], [facility]) Pain Consult Note Assessment/Plan: Lorraine Klein is a 33 year old female who was admitted on 03/20/2024. Pain Service is asked to see the patient for assistance with transitioning to discharge pain medication plan, chronic pain syndrome with recent pubic ramus fracture. Patient with recent fall two days ago when stepping the bathtub, aggravating her pubic rami fractures. Xray imaging demonstrating no changes from previous mildly displaced pubic rami fracture. Patient was admitted after being instructed to come to ED for further evaluation of abnormal labs, concerns for acute kidney injury, and dehydration. Abnormal GFR, with elevated creatinine Recently hospitalized at [facility] 02/28-03/01 with hypokalemia with IV fluids and IV potassium. And 03/06-03/12 at [facility] with BARBARA on top of CKD with hypokalemia Medical history significant for IBS, anemia, fibromyalgia, depression, gastroparesis, Gitelman syndrome, osteoporosis, chronic pain, on daily opioids recent fall with minimally displaced right inferior pubic ramus fracture. Patient describes blackout episodes, which she understands is related to electrolyte disturbances, she is in process of evaluation with Cardiology and Endocrinology to determine etiology. Followed by Dr. Lancaster at [facility] ED provider discussed care with patient's primary small engine specialist (Dr. Lancaster at [facility]) and Dr. 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 most recent 03/12/24 Hydromorphone 4 mg tablets 24 tablets for 6 days 03/12/24 Gabapentin 100 mg 90 tablets for 30 days 03/12/24 Tramadol 50 mg 60 tablets for 30 days 03/04/24 Gabapentin 300 mg 270 for 90 days 03/01/24 Hydromorphone 4 mg tablets 12 for 3 days 02/21/24 Hydromorphone 4 mg tablets 24 for 4 days 02/12/24 Tramadol 50 mg tablets 60 for 30 days 01/24/24 Gabapentin 100 mg tablets 90 for 90 days Home pain medications per pharmacist medication reconciliation: Hydromorphone 4 mg every 6 hrs PRN,Hydroxyzine 25 mg every 6 hrs PRN, Gabapentin 100 mg TID, Robaxin 750 mg every 6 hrs PRN. Over the past 24 hours patient has received: 2(0.5 mg) and 5(0.3 mg) Hydromorphone IV, 1(4 mg) Hydromorphone PO. Scheduled: Gabapentin 100 mg tid, Robaxin 750 mg tid, Tylenol 1000 mg tid. Subjective: Patient reports hip pain/pelvic pain feels like it did when she initially fractured it. Pain is sharp, stabbing, like a knife from right mid-buttock through hip flexor. Oral medication is not touching the pain, after IV Dilaudid 5-6/10. Using ice and heat with no pain relief. Taking Gabapentin for chronic neck pain, she no longer has numbness down her arms while taking this. Reports oxycodone didn't seem to provide much pain relief during previous hospitalization and Dilaudid did. Prior to this hospitalization her pain was mostly under control with oral Dilaudid 4 mg every 6 hrs. No bowel concerns, reports 2 BM's daily. Discussed increasing IV Dilaudid to 0.5 mg every 3 hours PRN over the next 24 hours with plan to transition to oral pain medications. Referral to [facility] provided. PLAN: Acute pain secondary to right pelvic fracture, in the setting of chronic pain. Multimodal Medication Therapy: Adjuvants: Gabapentin 100 mg tid, Tylenol 1,000 mg tid, Robaxin 750 mg tid, Atarax 25 mg every 6 hrs PRN Opioids: Hydromorphone PO 4 mg every 4 hrs PRN, (consider scheduling hydromorphone 4 mg every 6 hours with additional 2 mg every three hours prn when transitioning off IV Pain meds) Hydromorphone IV 0.5 mg every 3 hrs PRN over the next 24 hrs, transition to 0.5 mg tid PRN tomorrow Non-medication interventions- Ice, heat Constipation Prophylaxis- Senna prn Follow up /Discharge Recommendations - We recommend prescribing the following at the time of discharge: Hydromorphone 4 mg tablets qid prn for 5 days, Tylenol 1000 mg tid over the next 7 days, Robaxin 750 mg tid 5-7 days then prn, continue gabapentin 100 mg tid. <principal problem not specified> Patient Active Problem List Diagnosis Hypokalemic alkalosis Depression with suicidal ideation Hypokalemia Volume depletion Gitelman syndrome Hypomagnesemia Diarrhea Syncope Hypokalemia, excessive renal losses Abdominal pain SBO (small bowel obstruction) (H) Prolonged Q-T interval on ECG Generalized muscle weakness Strain of neck muscle, initial encounter Abdominal pain, epigastric Gitelman disease Anemia, unspecified type Ventral hernia without obstruction or gangrene Prolonged QT interval Chronic midline low back pain without sciatica Iron deficiency anemia, unspecified iron deficiency anemia type Nausea QT prolongation Pain of left upper arm Myalgia, multiple sites Metabolic alkalosis [id number] kidney injury (H) Acute kidney injury (H) Hypercalcemia BARBARA (acute kidney injury) (H) Right hip pain Acute renal failure superimposed on chronic kidney disease, unspecified acute renal failure type, unspecified CKD stage (H) Inferior pubic ramus fracture, right, closed, initial encounter (H) History Drug Use No Tobacco Use Smoking status: Never Smokeless tobacco: Never Current Facility-Administered Medications Medication Dose Route Frequency Provider Last Rate Last Admin acetaminophen (TYLENOL) tablet 1,000 mg 1,000 mg Oral TID Julia Vee PA-C 1,000 mg at 03/21/24 08 gabapentin (NEURONTIN) capsule 100 mg 100 mg Oral TID Julia Vee PA-C 100 mg at 03/21/24 08 magnesium oxide (MAG-OX) tablet 400 mg 400 mg Oral TID Julia Vee PA-C 400 mg at 834 methocarbamol (ROBAXIN) tablet 750 mg 750 mg Oral TID Julia Vee PA-C 750 mg at 03/21/24 08 potassium chloride deanne ER (KLOR-CON M20) CR tablet 80 mEq 80 mEq Oral TID Javon Devine MD Objective: Vital signs in last 24 hours: B/P: 111/72, T: 98, P: 72, R: 16 Blood pressure 111/72, pulse 72, temperature 98 ??F (36.7 ??C), temperature source Oral, resp. rate16, height 1.702 m (5' 7), weight 47.9 kg (105 lb 11.2 oz), SpO2 98%, not currently . Weight: Wt Readings from Last 2 Encounters: 03/20/24 47.9 kg (105 lb 11.2 oz) 03/12/24 47.8 kg (105 lb 6.4 oz) Intake/Output: Intake/Output Summary (Last 24 hours) at 03/21/2024 1257 Last data filed at 03/21/2024 0400 Gross per 24 hour Intake 1600 ml Output -- Net 1600 ml Review of Systems: As per subjective, all others negative. Physical Exam: General Appearance: Alert, cooperative, ill appearing Head: Normocephalic, without obvious abnormality, atraumatic Eyes: PERRL, conjunctiva/corneas clear, EOM's intact ENT/Throat: Lips moist Lymph/Neck: Supple, symmetrical, trachea midline Lungs: Respirations unlabored and easy Abdomen: Soft, non-tender, non-distended Musculoskeletal: Extremities normal, atraumatic Skin: Skin is intact, pale, warm Neurologic: Alert and oriented X 3, Moves all 4 extremities Imaging: Personally Reviewed. Results for orders placed or performed during the hospital encounter of 03/20/24 XR Pelvis w Hip Right 1 View Impression IMPRESSION: Mildly comminuted nondisplaced fractures of the right inferior pubic ramus. No additional fracture. The pubic symphysis and SI joints are intact. Hip joints are normally aligned, joint spacing is maintained. Lab Results: Personally Reviewed. Last Comprehensive Metabolic Panel: Sodium Date Value Ref Range Status 03/21/2024 138 135 - 145 mmol/L Final 11/22/2020 141 133 - 144 mmol/L Final Potassium Date Value Ref Range Status 03/21/2024 3.5 3.4 - 5.3 mmol/L Final 07/22/2021 3.5 3.4 - 5.3 mmol/L Final 11/22/2020 4.2 3.4 - 5.3 mmol/L Final Potassium POCT Date Value Ref Range Status 01/31/2023 <2.0 (LL) 3.4 - 5.3 mmol/L Final Comment: --- Chloride Date Value Ref Range Status 03/21/2024 93 (L) 98 - 107 mmol/L Final 07/22/2021 110 (H) 94 - 109 mmol/L Final 11/22/2020 110 (H) 94 - 109 mmol/L Final Comment: Results confirmed by repeat test Chloride POCT Date Value Ref Range Status 01/31/2023 69 (L) 94 - 109 mmol/L Final Comment: --- Carbon Dioxide Date Value Ref Range Status 11/22/2020 29 20 - 32 mmol/L Final Comment: Results confirmed by repeat test Carbon Dioxide (CO2) Date Value Ref Range Status 03/21/2024 37 (H) 22 - 29 mmol/L Final 07/22/2021 27 20 - 32 mmol/L Final Anion Gap Date Value Ref Range Status 03/21/2024 8 7 - 15 mmol/L Final 07/22/2021 3 3 - 14 mmol/L Final 11/22/2020 2 (L) 3 - 14 mmol/L Final Glucose Date Value Ref Range Status 03/21/2024 105 (H) 70 - 99 mg/dL Final 07/22/2021 106 (H) 70 - 99 mg/dL Final 11/22/2020 82 70 - 99 mg/dL Final GLUCOSE BY METER POCT Date Value Ref Range Status 02/01/2023 115 (H) 70 - 99 mg/dL Final Glucose Whole Blood POCT Date Value Ref Range Status 01/31/2023 98 70 - 99 mg/dL Final Comment: --- Urea Nitrogen Date Value Ref Range Status 03/21/2024 37.5 (H) 6.0 - 20.0 mg/dL Final 07/22/2021 13 7 - 30 mg/dL Final 11/22/2020 20 7 - 30 mg/dL Final UREA NITROGEN POCT Date Value Ref Range Status 01/31/2023 47 (H) 7 - 30 mg/dL Final Comment: --- Creatinine Date Value Ref Range Status 03/21/2024 2.04 (H) 0.51 - 0.95 mg/dL Final 11/22/2020 0.80 0.52 - 1.04 mg/dL Final GFR Estimate Date Value Ref Range Status 03/21/2024 32 (L) >60 mL/min/1.73m2 Final Comment: eGFR calculated using 2020 CKD-EPI equation. 11/22/2020 >90 >60 mL/min/[1.73_m2] Final Comment: Non GFR Calc Starting 06/11/2018, serum creatinine based estimated GFR (eGFR) will be calculated using the Chronic Kidney Disease Epidemiology Collaboration (CKD-EPI) equation. Calcium Date Value Ref Range Status 03/21/2024 9.5 8.8 - 10.4 mg/dL Final Comment: Reference intervals for this test were updated on 01/08/2024 to reflect our healthy population more accurately. There may be differences in the flagging of prior results with similar values performed with this method. Those prior results can be interpreted in the context of the updated reference intervals. 11/22/2020 7.6 (L) 8.5 - 10.1 mg/dL Final UA: Amphetamine Qual Urine Date Value Ref Range Status 03/15/2015 NEG Final Negative Cutoff for a negative amphetamine is 500 ng/mL or less. Barbiturates Qual Urine Date Value Ref Range Status 03/15/2015 NEG Final Negative Cutoff for a negative barbiturate is 200 ng/mL or less. Benzodiazepine Qual Urine Date Value Ref Range Status 03/15/2015 NEG Final Negative Cutoff for a negative benzodiazepine is 200 ng/mL or less. Cannabinoids Qual Urine Date Value Ref Range Status 03/15/2015 NEG Final Negative Cutoff for a negative cannabinoid is 50 ng/mL or less. Cocaine Qual Urine Date Value Ref Range Status 03/15/2015 NEG Final Negative Cutoff for a negative cocaine is 300 ng/mL or less. Opiates Qualitative Urine Date Value Ref Range Status 03/15/2015 NEG Final Negative Cutoff for a negative opiate is 300 ng/mL or less. PCP Qual Urine Date Value Ref Range Status 03/15/2015 NEG Final Negative Cutoff for a negative PCP is 25 ng/mL or less. I was present with Ysabel Batres the [facility] MASSAGE COORDINATOR foreign student adviser who participated in the service and in the documentation of the note. I have verified the history and personally performed the physical exam and medical decision making. I agree with the assessment and plan of care as documented in the note. ROCK WHEELER 03/21/2024 MANAGEMENT DISCUSSED with the following over the past 24 hours: RN NOTE(S)/MEDICAL RECORDS REVIEWED over the past 24 hours: Nursing, Hospital Medicine, Nephrology Medical complexity over the past 24 hours: - Parenteral (IV) CONTROLLED SUBSTANCES ordered - Prescription DRUG MANAGEMENT performed Irish Tidwell APRN, YUSEF WATERMAN Acute Inpatient Pain Team M-F Paging via Wave[employer] or [employer] * Javon Devine MD - 03/21/2024 12:02 PM CDTAssociated Order(s): NEPHROLOGY IP CONSULT [facility] RENAL CONSULTATION NOTE REFERRING MD: Mireya Trujillo PA-C REASON FOR CONSULTATION: Vane's, BARBARA DATE OF CONSULTATION: 03/21/24 SHORTHAND MCELROY FOR MY NOTES: c = with, s = without, p = after, a = before, x = except, asx = asymptomatic, tx = transplant or treatment, sx = symptoms or symptomatic, cx = canceled or culture, rxn = reaction, yday = yesterday, nl = normal, abx = antibiotics, fxn = function, dx = diagnosis, dz = disease, m/h = melena/hematochezia, c/d/l/winn = cramping/dizziness/lightheadedness/headache, d/c = discharge or diarrhea/constipation, f/c/n/v = fevers/chills/nausea/vomiting, cp/sob = chest pain/shortnessof breath, tbv = total body volume, rxn = reaction, tdc = tunneled dialysis catheter, tug boat captain = prior to admission, hd = hemodialysis, pd = peritoneal dialysis, hhd = home hemodialysis, edw = estimated dry wt HPI: Lorraine Klein is a 33 year old female c h/o Gitelman's + CKD IIIb who was admitted on 03/20/2024 c BARBARA, hypokalemia, and hypercalcemia. Notes from Drs. Ruiz (ER), Kennedy ([facility]), and Liza Bisek, PA-C were reviewed. Pt was at her outpt Neph appt on 03/18 and labs came back c significant abnormalities. Her Cr was 3.3, Ca 13.5, K 3.2. When she came in here, the K was down to 2.4. Of note, the pt had a recent R pubic ramus fx and then fell again last wk and injured her hip. As a result, she has pain. She states that she takes her KCl supps at home and drinks 300+ oz of liquids per day. She urinatesfine. Today, she is tired but feeling ok. She is getting fluids. Denies any c/d/l/winn. No cp/sob. She isn't moving around much bc of the pain. Eating ok. ROS: A complete review of systems was performed and is x as noted above. PMH: Past Medical History: Diagnosis Date Anemia Depressive disorder Fibromyalgia Gastroparesis Gitelman syndrome 10/28/2017 IBS (irritable bowel syndrome) SBO (small bowel obstruction) (H) PSH: Past Surgical History: Procedure Laterality Date APPENDECTOMY 1999 open ESOPHAGOSCOPY, GASTROSCOPY, DUODENOSCOPY (EGD), COMBINED Left 11/03/2019 Procedure: ESOPHAGOGASTRODUODENOSCOPY, WITH BIOPSIES; Surgeon: Kevin Cook MD; Location: [facility] EXCISE LESION AXILLA Left IR CHEST PORT PLACEMENT > 5 YRS OF AGE 701/04/2016 LAPAROSCOPY DIAGNOSTIC (GENERAL) 2018 takedown of gtube site MEDICATIONS: Current Facility-Administered Medications Medication Dose Route Frequency Provider Last Rate Last Admin acetaminophen (TYLENOL) tablet 1,000 mg 1,000 mg Oral TID Julia Vee PA-C 1,000 mg at 03/21/24 0833 gabapentin (NEURONTIN) capsule 100 mg 100 mg Oral TID Julia Vee PA-C 100 mg at 03/21/24 0833 magnesium oxide (MAG-OX) tablet 400 mg 400 mg Oral TID Julia Vee PA-C 400 mg at 834 methocarbamol (ROBAXIN) tablet 750 mg 750 mg Oral TID Julia Vee PA-C 750 mg at 03/21/24 0833 potassium chloride deanne ER (KLOR-CON M20) CR tablet 80 mEq 80 mEq Oral TID Javon Devine MD ALLERGIES: Allergies as of 03/20/2024 - Reviewed 03/20/2024 Allergen Reaction Noted Iron sucrose Anxiety and Hives 09/23/2017 Duloxetine Other (See Comments) 09/22/2017 Duloxetine hcl 03/07/2018 Ferric carboxymaltose Unknown and Other (See Comments) 11/07/2021 Iron 06/06/2020 FH: Family History Problem Relation Age of Onset Other - See Comments Father Hypokalemia Hypothyroidism Mother Juvenile idiopathic arthritis Sister Breast Cancer Maternal Grandmother Colon Cancer Paternal Uncle SH: Social History Socioeconomic History Marital status: Single Spouse name: Not on file Number of children: Not on file Years of education: Not on file Highest education level: Not on file Occupational History Occupation: [employer] Tobacco Use Smoking status: Never Smokeless tobacco: Never Vaping Use Vaping status: Never Used Substance and Sexual Activity Alcohol use: No Drug use: No Sexual activity: Never Other Topics Concern Not on file Social History Narrative Lives with parents Has 2 sisters Social Determinants of Health Financial Resource Strain: Low Risk (03/20/2024) Financial Resource Strain Within the past 12 months, have you or your family members you live with been unable to get utilities (heat, electricity) when it was really needed?: No Recent Concern: Financial Resource Strain - Medium Risk (12/24/2023) Received from [facility] Financial Resource Strain Difficulty of Paying Living Expenses: 2 Difficulty of Paying Living Expenses: 1 Food Insecurity: Low Risk (03/20/2024) Food Insecurity Within the past 12 months, did you worry that your food would run out before you got money to buy more?: No Within the past 12 months, did the food you bought just not last and you didn???t have money to getmore?: No Transportation Needs: Low Risk (03/06/2024) Transportation Needs Within the past 12 months, has lack of transportation kept you from medical appointments, getting your medicines, non-medical meetings or appointments, work, or from getting things that you need?: No Physical Activity: Sufficiently Active (04/07/2021) [facility] Exercise Vital Sign Days of Exercise per Week: 6 days Minutes of Exercise per Session: 90 min Stress: No Stress Concern Present (04/07/2021) Received from [facility], [facility] [employer] [place] [facility] - Occupational Stress Questionnaire Feeling of Stress : Only a little Social Connections: Socially Integrated (04/06/2023) [facility] Social Connections Frequency of Communication with Friends and Family: 0 Interpersonal Safety: Low Risk (03/06/2024) Interpersonal Safety Do you feel physically and emotionally safe where you currently live?: Yes Within the past 12 months, have you been hit, slapped, kicked or otherwise physically hurt by someone?: No Within the past 12 months, have you been humiliated or emotionally abused in other ways by your partner or ex-partner?: No Housing Stability: Low Risk (03/20/2024) Housing Stability Do you have housing? : Yes Are you worried about losing your housing?: No PHYSICAL EXAM: BP 111/72 (BP Location: Right arm) Pulse 72 Temp 98 ??F (36.7 ??C) (Oral) Resp 16 Ht 1.702 m (5' 7) Wt 47.9 kg (105 lb 11.2 oz) SpO2 98% BMI 16.55 kg/m?? GENERAL: awake, alert, NAD HEENT: normocephalic CV: RRR, nl S1/ S2; no ble edema RESP: CTA B c good efforts GI: abd s/nt/nd SKIN: no suspicious lesions or rashes, dry to touch NEURO: strength normal and symmetric PSYCH: mood good, affect flat LABS: CBC RESULTS: Recent Labs Lab 03/21/24 0635 03/20/24 1615 WBC 7.0 6.2 RBC 3.06* 3.62* HGB 8.5* 9.9* HCT 25.8* 29.6* PLT 390 484* BMP RESULTS: Recent Labs Lab 03/21/24 0925 03/21/24 0635 03/21/24 0258 03/20/24 2119 03/20/24 1615 NA -- 138 -- -- 134* POTASSIUM 3.1* 2.9* 2.8* 2.7* 2.4* CHLORIDE -- 93* -- -- 80* CO2 -- 37* -- -- 35* BUN -- 37.5* -- -- 44.4* CR -- 2.04* -- -- 2.49* GLC -- 105* -- -- 88 ELKE -- 9.5 -- -- 10.8* INRNo lab results found in last 7 days. DIAGNOSTICS: Personally reviewed - renal US (03/06): kidney size nl, big bladder A/P: Lorraine Klein is a 33 year old female c CKD IIIa, Gitelman's who has BARBARA and multiple severe electrolyte abnormalities. 1. BARBARA/CKD IIIa. Pt's baseline cr is ~1.4 and she is above that now. With fluids, it has already improved a bit. She will return to her baseline in the next day or so, but then we will have to see how she does on her own s fluids. A. Continue IVF until she hits her baseline, then stop B. Follow labs, uo, sx daily. 2. Hypokalemia 2 Gitelman's. Pt was taking KCl up to 5x/d as an outpt per her report. Here she is taking it bid. Mg is ok. Ca is fine today. A. Increase KCl to 80 tid to start. B. Follow labs daily and adjust dose prn. C. Continue IVF c K. D. Encourage high K food intake. E. Check diuretic screen per Dr. Benavides's request. 3. Hypercalcemia. Pt's Ca was quite high as an outpt and has already normalized c fluids. PTH is today. A. Follow Ca daily. B. Check nuc med parathyroid scan per Dr. Benavides's request. 4. Fe def anemia. Pt is quite fe def but she is allergic to IV fe. She is taking oral fe. She is fatigued. A. Continue oral fe tabs. B. Follow hb. 5. FEN. High K diet. A. Follow electrolytes. Case d/w Mireya Franz PA-C, Dr. Benavides. Attestation: I have reviewed today's relevant vital signs, notes, medications, labs and imaging. Javon Devine MD [facility] Nephrology [phone] documented in this encounter ED Notes * Chayito Shepard RN - 03/20/2024 5:30 PM CDT [facility] ED Nurse Handoff Report ED Chief complaint: Abnormal Labs . ED Diagnosis: Final diagnoses: Acute renal failure superimposed on chronic kidney disease, unspecified acute renal failure type, unspecified CKD stage (H24) Right hip pain Allergies: Allergies Allergen Reactions Iron Sucrose Anxiety and Hives Other reaction(s): Edema, Edema, Gastrointestinal, GI intolerance, GI Upset, Irritation At Inj Site, Other (see comments) Duloxetine Other (See Comments) B/P droop, shaking/tremor/fuzzy B/P droop, shaking/tremor/fuzzy Duloxetine Hcl B/P droop Ferric Carboxymaltose Unknown and Other (See Comments) Irritation at the injection site. Pt declined continuing infusion at lower rate. Irritation at the injection site. Pt declined continuing infusion at lower rate. Iron Other reaction(s): Other (see comments) Code Status: Full Code Activity level - Baseline/Home: walker. Activity Level - Current: standby and walker. Lift room needed: No. Bariatric: No Digital Research Analyst Needed: No Isolation: No. Infection: Not Applicable. Respiratory status: Room air Vital Signs (within 30 minutes): Vitals: 03/20/24 1443 03/20/24 1600 03/20/24 1610 03/20/24 1700 BP: 112/83 124/84 (!) 124/90 Pulse: 95 81 76 Resp: 18 Temp: 98 ??F (36.7 ??C) TempSrc: Oral SpO2: 98% 100% 92% Weight: 48.1 kg (106 lb 1.6 oz) Height: 1.702 m (5' 7) Cardiac Rhythm: , Pain level: Patient confused: No. Patient Falls Risk: nonskid shoes/slippers when out of bed, arm band in place, patient and family education, assistive device/personal items within reach, and mobility aid in reach. Elimination Status: Has voided Patient Report - Initial Complaint: abnormal labs. Focused Assessment: Patient states she had a follow up today with her kidney doctor and was told her levels are abnormal. Patient states she is also dehydrated. Abnormal Results: Labs Ordered and Resulted from Time of ED Arrival to Time of ED Departure BASIC METABOLIC PANEL - Abnormal Result Value Sodium 134 (*) Potassium 2.4 (*) Chloride 80 (*) Carbon Dioxide (CO2) 35 (*) Anion Gap 19 (*) Urea Nitrogen 44.4 (*) Creatinine 2.49 (*) GFR Estimate 26 (*) Calcium 10.8 (*) Glucose 88 CBC WITH PLATELETS AND DIFFERENTIAL - Abnormal WBC Count 6.2 RBC Count 3.62 (*) Hemoglobin 9.9 (*) Hematocrit 29.6 (*) MCV 82 MCH 27.3 MCHC 33.4 RDW 15.9 (*) Platelet Count 484 (*) % Neutrophils 53 % Lymphocytes 35 % Monocytes 9 % Eosinophils 2 % Basophils 2 % Immature Granulocytes 1 NRBCs per 100 WBC 0 Absolute Neutrophils 3.3 Absolute Lymphocytes 2.1 Absolute Monocytes 0.6 Absolute Eosinophils 0.1 Absolute Basophils 0.1 Absolute Immature Granulocytes 0.0 Absolute NRBCs 0.0 MAGNESIUM - Normal Magnesium 2.1 XR Pelvis w Hip Right 1 View (Results Pending) Treatments provided: see MAR Family Comments: N/A OBS brochure/video discussed/provided to patient: yes ED Medications: Medications sodium chloride 0.9% BOLUS 1,000 mL (1,000 mLs Intravenous $New Bag 03/20/241717) HYDROmorphone (PF) (DILAUDID) injection 0.5 mg (0.5 mg Intravenous $Given 03/20/24 162) potassium chloride (KLOR-CON) Packet 40 mEq (40 mEq Oral $Given 03/20/241717) Drips infusing: No For the majority of the shift this patient was Green. Interventions performed were N/A. Sepsis treatment initiated: No Cares/treatment/interventions/medications to be completed following ED care: see notes ED Nurse Name: Chayito Shepard RN 5:30 PM RECEIVING UNIT ED HANDOFF REVIEW Above ED Nurse Handoff Report was reviewed: Yes Reviewed by: Saundra Brandt RN on March 20, 2024 at 7:32 PM Aly Quevedo called the ED to inform them the note was read: Yes * Michael Ruiz DO - 03/20/2024 3:24 PM CDT Emergency Department Note History of Present Illness Chief Complaint Abnormal Labs HPI Lorraine Klein is a 33 year old female with history of Gitelman syndrome presents to the emergency department for BARBARA sent in by primary small engine specialist. Per patient, she was on her regular follow-up today with her primary small engine specialist and was noted to have significant worsening of her renal function and was told to come into the ER for IV fluid hydration and potential placement of dialysis catheter. Patient reports that outpatient kidney function demonstrate creatinine in the 4 ranges. Patient reports that her renal function is secondary to a chronic kidney disease. After discussion with patient's primary small engine specialist, he is hoping to avoid dialysis and is pending further genetic testing from [facility]. Per nephrology on-call at [facility], this patient is very well-known to their service and usually requires IV fluid hydration in the hospital with potassium supplementation andusually has good response to above treatment. Patient denies any fever, chills, chest pain, shortness of breath, nausea, vomiting, abdominal pain, dysuria or hematuria, or black or bloody stools. Patient reports that she had a fall yesterday and feels like she exacerbated her right pubic ramus fracture. Independent Historian Patient and patient's small engine specialist Dr. Bender and Dr. Benavides Review of External Notes Nephrology office visit note from today - please check yourself to [facility] to address kidney failing and very high calcium We will discuss necessity for tunneled access for in center IV fluids - please discuss with primary doctor get connected with specialized care regarding the following: - need to see heart doctor , at you are at risk of having serious heart rhythm problem - need to see endocrine for three reasons: weak bones, possible over function parathyroid gland that lead to high Calcium and weak bones. Also, we need address why you are not having periods anymore. - need to see mental health specialist for anxiety and mood problems - need to see Genetic Medicine team at [facility] for establishing your kidney problem with precision. - no needle stick or IV access on the left arm, we are trying to preserve veins for possible futureAV fistula creation in the future as you are at risk of kidney failure and needing dialysis. - follow up will be decided once you get close to be dismissed from the anticipate hospitalization. - we recommend not exceed gabapentin more than 300 mg per day - avoid pain meds related to NSAIDs. - we recommend getting automatic blood pressure machine. - consider accepting transportation help offered to you especially when traveling long distances and / or feeling dizzy. Past Medical History Medical History and Problem List Past Medical History: Diagnosis Date ??? Anemia ??? Depressive disorder ??? Fibromyalgia ??? Gastroparesis ??? 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 IBS (irritable bowel syndrome) ??? SBO (small bowel obstruction) (H) Medications calcium carbonate (TUMS) 500 MG chewable tablet ferrous sulfate 325 (65 Fe) MG TBEC EC tablet gabapentin (NEURONTIN) 100 MG capsule HYDROmorphone (DILAUDID) 4 MG tablet hydrOXYzine HCl (ATARAX) 25 MG tablet magnesium oxide (MAG-OX) 400 MG tablet methocarbamol (ROBAXIN) 750 MG tablet multivitamin, therapeutic (THERA-VIT) TABS potassium chloride deanne ER (KLOR-CON M20) 20 MEQ CR tablet senna-docusate (SENOKOT-S/PERICOLACE) 8.6-50 MG tablet spironolactone (ALDACTONE) 25 MG tablet Surgical History Past Surgical History: Procedure Laterality Date ??? APPENDECTOMY 2000 open ??? ESOPHAGOSCOPY, GASTROSCOPY, DUODENOSCOPY (EGD), COMBINED Left 11/03/2019 Procedure: ESOPHAGOGASTRODUODENOSCOPY, WITH BIOPSIES; Surgeon: Kevin Cook MD; Location: [facility] ??? EXCISE LESION AXILLA Left ? ? IR CHEST PORT PLACEMENT > 5 YRS OF AGE 701/04/2016 ??? LAPAROSCOPY DIAGNOSTIC (GENERAL) 2017 takedown of gtube site Physical Exam Patient Vitals for the past 24 hrs: BP Temp Temp src Pulse Resp SpO2 Height Weight 03/20/24 1900 118/82 -- -- 76 -- 100 % -- -- 03/20/24 1800 (!) 121/91 -- -- 78 -- 96 % -- -- 03/20/24 1700 (!) 124/90 -- -- 76 -- 92 % -- -- 03/20/24 1610 -- -- -- 81 -- 100 % -- -- 03/20/24 1600 124/84 -- -- -- -- -- -- -- 03/20/24 1443 112/83 98 ??F (36.7 ??C) Oral 95 18 98 % 1.702 m (5' 7) 48.1 kg (106 lb 1.6 oz) Physical Exam Constitutional: Appearance: Frail appearance. HENT: Head: Normocephalic and atraumatic. Eyes: Extraocular Movements: Extraocular movements intact. Conjunctiva/sclera: Conjunctivae normal. Cardiovascular: Rate and Rhythm: Normal rate and regular rhythm. Pulmonary: Effort: Pulmonary effort is normal. No respiratory distress. Breath sounds: Clear to auscultation bilaterally. No wheezing. No crackles. Abdominal: General: Abdomen is flat. There is no distension. Palpations: Abdomen is soft. Tenderness: There is no abdominal tenderness. Musculoskeletal: Cervical back: Normal range of motion. No rigidity. Right lower leg: No edema. Left lower leg: No edema. Skin: General: Skin is warm and dry. Neurological: General: No focal deficit present. Mental Status: Alert and oriented to person, place, and time. Psychiatric: Mood and Affect: Mood normal. Behavior: Behavior normal. Diagnostics Lab Results Labs Ordered and Resulted from Time of ED Arrival to Time of ED Departure BASIC METABOLIC PANEL - Abnormal Result Value Sodium 134 (*) Potassium 2.4 (*) Chloride 80 (*) Carbon Dioxide (CO2) 35 (*) Anion Gap 19 (*) Urea Nitrogen 44.4 (*) Creatinine 2.49 (*) GFR Estimate 26 (*) Calcium 10.8 (*) Glucose 88 CBC WITH PLATELETS AND DIFFERENTIAL - Abnormal WBC Count 6.2 RBC Count 3.62 (*) Hemoglobin 9.9 (*) Hematocrit 29.6 (*) MCV 82 MCH 27.3 MCHC 33.4 RDW 15.9 (*) Platelet Count 484 (*) % Neutrophils 53 % Lymphocytes 35 % Monocytes 9 % Eosinophils 2 % Basophils 2 % Immature Granulocytes 1 NRBCs per 100 WBC 0 Absolute Neutrophils 3.3 Absolute Lymphocytes 2.1 Absolute Monocytes 0.6 Absolute Eosinophils 0.1 Absolute Basophils 0.1 Absolute Immature Granulocytes 0.0 Absolute NRBCs 0.0 MAGNESIUM - Normal Magnesium 2.1 Imaging XR Pelvis w Hip Right 1 View Final Result IMPRESSION: Mildly comminuted nondisplaced fractures of the right inferior pubic ramus. No additional fracture. The pubic symphysis and SI joints are intact. Hip joints are normally aligned, joint spacing is maintained. EKG None Independent Interpretation None ED Course Medications Administered Medications HYDROmorphone (PF) (DILAUDID) injection 0.5 mg (0.5 mg Intravenous $Given 03/20/24 1623) sodium chloride 0.9% BOLUS 1,000 mL (1,000 mLs Intravenous $New Bag 03/20/24 171) potassium chloride (KLOR-CON) Packet 40 mEq (40 mEq Oral $Given 03/20/24 171) HYDROmorphone (PF) (DILAUDID) injection 0.5 mg (0.5 mg Intravenous $Given 03/20/24 1803) Procedures Procedures Discussion of Management See ED course ED Course ED Course as of 03/20/242025 Emiliana Mar 20, 2024 1625 Hemoglobin(!): 9.9 Near baseline 1634 Discussed patient with extrusion operator small engine specialist (Yulia) who recommends IV NS hydration over LR dueto patient's hypochloremia. Recommend potassium supplementation. 1714 Dr. Lala callback and request contact information for Dr. Bender. Suspect patient may not beorally hydrating as she should be. He is hoping to avoid proceeding with dialysis and he is awaiting genetic testing from [facility]. He will reach out to Dr. Bender for further discussion. 171 Creatinine(!): 2.49 1823 Discussed patient with Liza Wilson who accepted patient for admission. Additional Documentation None Medical Decision Making / Diagnosis [facility] Diagnoses: None MIPS None [facility] Lorraine Klein is a 33 year old female as described above presents to the emergency department for worsening renal function and hypercalcemia with known history of renal disease. Patient hemodynamically stable at time of evaluation. Afebrile. Frail-appearing. Creatinine today 2.49 which appearsto be slightly improved as compared with 03/18/2024 renal function testing. Per primary nephrologists, concerned that patient's renal functioning may potentially still be prerenal due to inadequate oral fluid intake. Recommendation by on-call small engine specialist is to initiate IV fluid hydration with preference for normal saline given patient's elevated bicarb and low chloride count in addition to potassium supplementation. Will repeat right hip imaging for evaluation for acute on chronic fracture. Pain control. Discussed care plan with patient who voiced understanding and agreement with plan. Answered all questions. Additional workup and orders as listed in chart. Ultimately, work up shows BARBARA with creatinine of 2.49 and hypokalemia with potassium of 2.4 and hypochloremia with chloride of 80 and bicarb of 35. Patient was given IV saline bolus and oral potassium supplementation and admitted to the hospitalist service for further treatment. Right sided pubic ramus fracture present on right hip x-ray. Patient treated with IV Dilaudid for pain control. Please refer to ED course above as part of continuation of MDM for details on the patient's treatment course and any potential changes or updates beyond my initial evaluation and MDM creation. Disposition The patient was admitted to the hospital. Diagnosis ICD-10-CM 1. Acute renal failure superimposed on chronic kidney disease, unspecified acute renal failure type, unspecified CKD stage (H24) N17.9 N18.9 2. Right hip pain M25.551 3. Inferior pubic ramus fracture, right, closed, initial encounter (H) S32.591A Discharge Medications New Prescriptions No medications on file DO Sara BINGHAM Ferris, DO 03/20/242025 * Shanice Kimball RN - 03/20/2024 2:42 PM CDT Patient states she had a follow up today with her kidney doctor today and was told her levels are abnormal. Patient states she is also dehydrated. Triage Assessment (Adult) Row Name 03/20/24 1441 Triage Assessment Airway WDL WDL Respiratory WDL Respiratory WDL WDL Skin Circulation/Temperature WDL Skin Circulation/Temperature WDL WDL Cardiac WDL Cardiac WDL WDL Peripheral/Neurovascular WDL Peripheral Neurovascular WDL WDL Cognitive/Neuro/Behavioral WDL Cognitive/Neuro/Behavioral WDL WDL documented in this encounter Miscellaneous Notes * Plan of Care - Moriah Hernandez RN - 03/23/2024 12:49 PM CDT Patient's After Visit Summary was reviewed with patient. Patient verbalized understanding of After Visit Summary, recommended follow up and was given an opportunity to ask questions. Discharge medications sent home with patient/family: YES, Discharged with aunt * Plan of Care - Moriah Hernandez RN - 03/23/2024 10:17 AM CDT Vitals are Temp: 97.9 ??F (36.6 ??C) Temp src: Oral BP: 122/84 Pulse: 89 Resp: 17 SpO2: 100 %. Patient is Alert and Oriented x4. They are independent with Walker. Pt is on a Regular diet. They are complaining of 10/10 pain in their right hip. Oral Dilaudid given for pain, pt states that oral dilaudid does not help with their pain. Patient is Saline locked. Nephrology is following. Plan to discharge later today. Will cont to monitor. Problem: Adult Inpatient Plan of Care Goal: Plan of Care Review Description: The Plan of Care Review/Shift note should be completed every shift. The Outcome Evaluation is a brief statement about your assessment that the patient is improving, declining, or no change. This information will be displayed automatically on your shift note. Outcome: Progressing Goal: Patient-Specific Goal (Individualized) Description: You can add care plan individualizations to a care plan. Examples of Individualizationmight be: Parent requests to be called daily at 9am for status, I have a hard time hearing out of my right ear, or Do not touch me to wake me up as it startles me. Outcome: Progressing Goal: Absence of Hospital-Acquired Illness or Injury Outcome: Progressing Intervention: Identify and Manage Fall Risk Recent Flowsheet Documentation Taken 03/23/2024817 by Moriah Hernandez RN Safety Promotion/Fall Prevention: safety round/check completed Intervention: Prevent Skin Injury Recent Flowsheet Documentation Taken 03/23/2024817 by Moriah Hernandez RN Body Position: position changed independently Intervention: Prevent and Manage VTE (Venous Thromboembolism) Risk Recent Flowsheet Documentation Taken 03/23/2024817 by Moriah Hernandez RN VTE Prevention/Management: SCDs off (sequential compression devices) Intervention: Prevent Infection Recent Flowsheet Documentation Taken 03/23/2024817 by Mweria, Moriah, RN Infection Prevention: rest/sleep promoted Goal: Optimal Comfort and Wellbeing Outcome: Progressing Intervention: Monitor Pain and Promote Comfort Recent Flowsheet Documentation Taken 03/23/2024817 by Moriah Hernandez RN Pain Management Interventions: medication (see MAR) Goal: Readiness for Transition of Care Outcome: Progressing Problem: Fall Injury Risk Goal: Absence of Fall and Fall-Related Injury Outcome: Progressing Intervention: Promote Injury-Free Environment Recent Flowsheet Documentation Taken 03/23/2024 08 by Moriah Hernandez RN Safety Promotion/Fall Prevention: safety round/check completed Problem: Pain Acute Goal: Optimal Pain Control and Function Outcome: Progressing Intervention: Develop Pain Management Plan Recent Flowsheet Documentation Taken 03/23/2024817 by Moriah Hernandez RN Pain Management Interventions: medication (see MAR) Problem: Oral Intake Inadequate Goal: Improved Oral Intake Outcome: Progressing Problem: Comorbidity Management Goal: Blood Pressure in Desired Range Outcome: Progressing Problem: Electrolyte Imbalance Goal: Electrolyte Balance Outcome: Progressing * Plan of Care - Josué Zheng RN - 03/23/2024 5:36 AM CDT Goal Outcome Evaluation: Plan of Care Reviewed With: patient Overall Patient Progress: no changeOverall Patient Progress: no change Outcome Evaluation: Still needing IV pain medication Vitals are Temp: 98 ??F (36.7 ??C) Temp src: Oral BP: 110/73 Pulse: 77 Resp: 16 SpO2: 100 %. Patient is Alert and Oriented x4. Independent in room. Regular diet. Denies dizziness, SOB, and nausea. PIV SL. Right hip pain- pt taking scheduled po Dilaudid, tylenol, robaxin along with prn atarax, IV and po Dilaudid for pain. Heat and ice pack also used intermittently. On K protocol, recheck Bunny. Neph following. Strict I&O. Problem: Adult Inpatient Plan of Care Goal: Plan of Care Review Description: The Plan of Care Review/Shift note should be completed every shift. The Outcome Evaluation is a brief statement about your assessment that the patient is improving, declining, or no change. This information will be displayed automatically on your shift note. Outcome: Progressing Flowsheets (Taken 03/23/2024 0202) Outcome Evaluation: Still needing IV pain medication Plan of Care Reviewed With: patient Overall Patient Progress: no change Goal: Absence of Hospital-Acquired Illness or Injury Intervention: Identify and Manage Fall Risk Recent Flowsheet Documentation Taken 03/22/2024 2345 by Josué Zheng RN Safety Promotion/Fall Prevention: safety round/check completed Taken 03/22/20241999 by Josué Zheng RN Safety Promotion/Fall Prevention: safety round/check completed Intervention: Prevent Skin Injury Recent Flowsheet Documentation Taken 03/22/2024 2345 by Josué Zheng RN Body Position: position changed independently Taken 03/22/20241999 by Josué Zheng RN Body Position: position changed independently Intervention: Prevent and Manage VTE (Venous Thromboembolism) Risk Recent Flowsheet Documentation Taken 03/22/20241999 by Josué Zheng RN VTE Prevention/Management: SCDs off (sequential compression devices) Intervention: Prevent Infection Recent Flowsheet Documentation Taken 03/23/2024 0023 by Josué Zheng RN Infection Prevention: cohorting utilized single patient room provided visitors restricted/screened rest/sleep promoted Taken 03/22/20241999 by Josué Zheng RN Infection Prevention: cohorting utilized rest/sleep promoted single patient room provided Goal: Optimal Comfort and Wellbeing Intervention: Monitor Pain and Promote Comfort Recent Flowsheet Documentation Taken 03/22/2024 2329 by Josué Zheng RNassembler flexible leads Interventions: medication (see MAR) Taken 03/22/2024 2205 by Josué Zheng RNassembler flexible leads Interventions: medication (see MAR) Taken 03/22/2024 2040 by Josué Zheng RNassembler flexible leads Interventions: distraction rest Taken 03/22/2024 1952 by Josué Zheng RNassembler flexible leads Interventions: medication (see MAR) Problem: Fall Injury Risk Goal: Absence of Fall and Fall-Related Injury Intervention: Identify and Manage Contributors Recent Flowsheet Documentation Taken 03/22/2024 234 by Josué Zheng RN Medication Review/Management: medications reviewed Taken 03/22/20241999 by Josué Zheng RN Medication Review/Management: medications reviewed Intervention: Promote Injury-Free Environment Recent Flowsheet Documentation Taken 03/22/2024 2345 by Josué Zheng RN Safety Promotion/Fall Prevention: safety round/check completed Taken 03/22/20241999 by Josué Zheng RN Safety Promotion/Fall Prevention: safety round/check completed Problem: Pain Acute Goal: Optimal Pain Control and Function Intervention: Develop Pain Management Plan Recent Flowsheet Documentation Taken 03/22/20242328 by Josué Zheng RNassembler flexible leads Interventions: medication (see MAR) Taken 03/22/20242204 by Josué Zheng RNassembler flexible leads Interventions: medication (see MAR) Taken 03/22/20242039 by Josué Zheng RNassembler flexible leads Interventions: distraction rest Taken 03/22/20241951 by Josué Zheng RNassembler flexible leads Interventions: medication (see MAR) Intervention: Prevent or Manage Pain Recent Flowsheet Documentation Taken 03/22/2024 234 by Josué Zheng RN Medication Review/Management: medications reviewed Taken 03/22/20241999 by Josué Zheng RN Bowel Elimination Promotion: adequate fluid intake promoted privacy promoted Medication Review/Management: medications reviewed Problem: Comorbidity Management Goal: Blood Pressure in Desired Range Intervention: Maintain Blood Pressure Management Recent Flowsheet Documentation Taken 03/22/20242344 by Josué Zheng RN Medication Review/Management: medications reviewed Taken 03/22/20241999 by Josué Zheng RN Medication Review/Management: medications reviewed * Plan of Care - Moriah Hernandez RN - 03/22/2024 5:09 PM CDT Vitals are Temp: 98 ??F (36.7 ??C) Temp src: Oral BP: 92/64 Pulse: 71 Resp: 18 SpO2: 99 %. Patient is Alert and Oriented x4. They are independent with no assistive devices . Pt is on a Regular diet. They are complaining of 6-10/10 pain in their Right hip. IV and oral Dilaudid given for pain. Patient is saline locked. Will cont to monitor. Problem: Adult Inpatient Plan of Care Goal: Plan of Care Review Description: The Plan of Care Review/Shift note should be completed every shift. The Outcome Evaluation is a brief statement about your assessment that the patient is improving, declining, or no change. This information will be displayed automatically on your shift note. 03/22/2024 1806 by Moriah Hernandez RN Outcome: Progressing 03/22/2024 1153 by Moriah Hernandez RN Outcome: Progressing Goal: Patient-Specific Goal (Individualized) Description: You can add care plan individualizations to a care plan. Examples of Individualizationmight be: Parent requests to be called daily at 9am for status, I have a hard time hearing out of my right ear, or Do not touch me to wake me up as it startles me. 03/22/2024 1806 by Moriah Hernandez RN Outcome: Progressing 03/22/2024 1153 by Moriah Hernandez RN Outcome: Progressing Goal: Absence of Hospital-Acquired Illness or Injury 03/22/2024 180 by Moriah Hernandez RN Outcome: Progressing 03/22/2024 1153 by Moriah Hernandez RN Outcome: Progressing Intervention: Identify and Manage Fall Risk Recent Flowsheet Documentation Taken 03/22/2024 0857 by Moriah Hernandez RN Safety Promotion/Fall Prevention: activity supervised Intervention: Prevent Skin Injury Recent Flowsheet Documentation Taken 03/22/2024 0840 by Moriah Hernandez RN Body Position: position changed independently Intervention: Prevent and Manage VTE (Venous Thromboembolism) Risk Recent Flowsheet Documentation Taken 03/22/2024 0857 by Moriah Hernandez RN VTE Prevention/Management: SCDs off (sequential compression devices) Goal: Optimal Comfort and Wellbeing 03/22/2024 180 by Moriah Hernandez RN Outcome: Progressing 03/22/2024 1153 by Moriah Hernandez RN Outcome: Progressing Intervention: Monitor Pain and Promote Comfort Recent Flowsheet Documentation Taken 03/22/2024 0840 by Moriah Hernandez RN Pain Management Interventions: medication (see MAR) Goal: Readiness for Transition of Care 03/22/2024 180 by Moriah Hernandez RN Outcome: Progressing 03/22/2024 1153 by Moriah Hernandez RN Outcome: Progressing Problem: Fall Injury Risk Goal: Absence of Fall and Fall-Related Injury 03/22/2024 180 by Moriah Hernandez RN Outcome: Progressing 03/22/2024 1153 by Moriah Hernandez RN Outcome: Progressing Intervention: Identify and Manage Contributors Recent Flowsheet Documentation Taken 03/22/2024 0857 by Moriah Hernandez RN Medication Review/Management: medications reviewed Intervention: Promote Injury-Free Environment Recent Flowsheet Documentation Taken 03/22/2024 0857 by Moriah Hernandez RN Safety Promotion/Fall Prevention: activity supervised Problem: Pain Acute Goal: Optimal Pain Control and Function 03/22/2024 1806 by Moriah Hernandez RN Outcome: Progressing 03/22/2024 1153 by Moriah Hernandez RN Outcome: Progressing Intervention: Develop Pain Management Plan Recent Flowsheet Documentation Taken 03/22/2024 0840 by Moriah Hernandez RN Pain Management Interventions: medication (see MAR) Intervention: Prevent or Manage Pain Recent Flowsheet Documentation Taken 03/22/2024 0857 by Moriah Hernandez RN Medication Review/Management: medications reviewed Problem: Oral Intake Inadequate Goal: Improved Oral Intake 03/22/2024 1806 by Moriah Hernandez RN Outcome: Progressing 03/22/2024 1153 by Moriah Hernandez RN Outcome: Progressing Problem: Comorbidity Management Goal: Blood Pressure in Desired Range 03/22/2024 1806 by Moriah Hernandez RN Outcome: Progressing 03/22/2024 1153 by Moriah Hernandez RN Outcome: Progressing Intervention: Maintain Blood Pressure Management Recent Flowsheet Documentation Taken 03/22/2024 0857 by Moriah Hernandez RN Medication Review/Management: medications reviewed * Plan of Care - Sun Mccullough RN - 03/22/2024 6:26 AM CDT Goal Outcome Evaluation: Plan of Care Reviewed With: patient Overall Patient Progress: improvingOverall Patient Progress: improving Outcome Evaluation: Pt is alert and oriented x4. Rates pain at 9-10-10 Right hip pain. States oral dilaudid is ineffective and requests for IV dilaudid q3hrs. Independent in room. Declined Heparin anticoagulant. Education provided. Potassium at 3.8 this morning. Tele SR. Nephrology following Problem: Adult Inpatient Plan of Care Goal: Plan of Care Review Description: The Plan of Care Review/Shift note should be completed every shift. The Outcome Evaluation is a brief statement about your assessment that the patient is improving, declining, or no change. This information will be displayed automatically on your shift note. Outcome: Progressing Flowsheets (Taken 03/22/2024 0621) Outcome Evaluation: Pt is alert and oriented x4. Rates pain at 9-10-10 Right hip pain. States oral dilaudid is ineffective and requests for IV dilaudid q3hrs. Independent in room. Declined Heparin anticoagulant. Education provided. Plan of Care Reviewed With: patient Overall Patient Progress: improving Goal: Patient-Specific Goal (Individualized) Description: You can add care plan individualizations to a care plan. Examples of Individualizationmight be: Parent requests to be called daily at 9am for status, I have a hard time hearing out of my right ear, or Do not touch me to wake me up as it startles me. Outcome: Progressing Goal: Absence of Hospital-Acquired Illness or Injury Outcome: Progressing Goal: Optimal Comfort and Wellbeing Outcome: Progressing Goal: Readiness for Transition of Care Outcome: Progressing Problem: Fall Injury Risk Goal: Absence of Fall and Fall-Related Injury Outcome: Progressing Problem: Pain Acute Goal: Optimal Pain Control and Function Outcome: Progressing Problem: Oral Intake Inadequate Goal: Improved Oral Intake Outcome: Progressing Problem: Comorbidity Management Goal: Blood Pressure in Desired Range Outcome: Progressing * Plan of Care - Milana Esparza RN - 03/21/2024 9:45 PM CDT Pt alert and oriented. C/o right hip pain, rated as 10/10. PRN IV Dilaudid given x 2. On RA. IVF infusing. Independent in room. Tolerating diet. Problem: Adult Inpatient Plan of Care Goal: Plan of Care Review Description: The Plan of Care Review/Shift note should be completed every shift. The Outcome Evaluation is a brief statement about your assessment that the patient is improving, declining, or no change. This information will be displayed automatically on your shift note. Outcome: Progressing Flowsheets (Taken 03/21/20242142) Outcome Evaluation: Pt alert and oriented. C/o right hip pain, rated as 10/10. PRN IV Dilaudid given x 2. On RA. IVF infusing. Independent in room. Tolerating diet. Plan of Care Reviewed With: patient Overall Patient Progress: no change Goal: Patient-Specific Goal (Individualized) Description: You can add care plan individualizations to a care plan. Examples of Individualizationmight be: Parent requests to be called daily at 9am for status, I have a hard time hearing out of my right ear, or Do not touch me to wake me up as it startles me. Outcome: Progressing Goal: Absence of Hospital-Acquired Illness or Injury Outcome: Progressing Intervention: Identify and Manage Fall Risk Recent Flowsheet Documentation Taken 03/21/20242099 by Milana Esparza RN Safety Promotion/Fall Prevention: assistive device/personal items within reach clutter free environment maintained nonskid shoes/slippers when out of bed safety round/check completed Intervention: Prevent Skin Injury Recent Flowsheet Documentation Taken 03/21/20242099 by Milana Esparza, DEVIN Body Position: position changed independently Intervention: Prevent Infection Recent Flowsheet Documentation Taken 03/21/20242099 by Milana Esparza, DEVIN Infection Prevention: hand hygiene promoted equipment surfaces disinfected rest/sleep promoted Goal: Optimal Comfort and Wellbeing Outcome: Progressing Intervention: Monitor Pain and Promote Comfort Recent Flowsheet Documentation Taken 03/21/20241940 by Milana Esparza, assembler flexible leads Interventions: medication (see MAR) Goal: Readiness for Transition of Care Outcome: Progressing Problem: Fall Injury Risk Goal: Absence of Fall and Fall-Related Injury Outcome: Progressing Intervention: Identify and Manage Contributors Recent Flowsheet Documentation Taken 03/21/20242099 by Milana Esparza, regulatory process manager Review/Management: medications reviewed Intervention: Promote Injury-Free Environment Recent Flowsheet Documentation Taken 03/21/20242099 by Milana Esparza RN Safety Promotion/Fall Prevention: assistive device/personal items within reach clutter free environment maintained nonskid shoes/slippers when out of bed safety round/check completed Problem: Pain Acute Goal: Optimal Pain Control and Function Outcome: Progressing Intervention: Develop Pain Management Plan Recent Flowsheet Documentation Taken 03/21/20241940 by Milana Esparza, assembler flexible leads Interventions: medication (see MAR) Intervention: Prevent or Manage Pain Recent Flowsheet Documentation Taken 03/21/20242099 by Milana Esparza, regulatory process manager Review/Management: medications reviewed Problem: Oral Intake Inadequate Goal: Improved Oral Intake Outcome: Progressing Problem: Comorbidity Management Goal: Blood Pressure in Desired Range Outcome: Progressing Intervention: Maintain Blood Pressure Management Recent Flowsheet Documentation Taken 03/21/20242099 by Milana Esparza, regulatory process manager Review/Management: medications reviewed Goal Outcome Evaluation: Plan of Care Reviewed With: patient Overall Patient Progress: no changeOverall Patient Progress: no change Outcome Evaluation: Pt alert and oriented. C/o right hip pain, rated as 10/10. PRN IV Dilaudid given x 2. On RA. IVF infusing. Independent in room. Tolerating diet. * Plan of Care - Irvin Zeng RN - 03/21/2024 6:45 PM CDT Pt is Aox4 and anxious but cooperative. Pt has been getting up IND to the bathroom during the day with IV pole for support, bed alarm remaining off during lyric writer's shift. Pain rated 10/10 and given 0.5mg dilaudid IV, which brougt pain to 5/10. VSS on room air. Pt refused heparin injection citing fear of needles, and pt was instead given SCD's on calves. Pt on tele showing sinus rhythm in the 70's. Nephrology following. Continue to follow plan of care. BP 136/84 (BP Location: Right arm) Pulse 86 Temp 98.4 ??F (36.9 ??C) (Oral) Resp 17 Ht 1.702 m (5' 7) Wt 47.9 kg (105 lb 11.2 oz) SpO2 98% BMI 16.55 kg/m?? Goal Outcome Evaluation: Plan of Care Reviewed With: patient Overall Patient Progress: no changeOverall Patient Progress: no change Outcome Evaluation: pt still having pain but is undercontrol with IV dilaudid Problem: Adult Inpatient Plan of Care Goal: Plan of Care Review Description: The Plan of Care Review/Shift note should be completed every shift. The Outcome Evaluation is a brief statement about your assessment that the patient is improving, declining, or no change. This information will be displayed automatically on your shift note. Outcome: Progressing Flowsheets (Taken 03/21/2024 1844) Outcome Evaluation: pt still having pain but is undercontrol with IV dilaudid Plan of Care Reviewed With: patient Overall Patient Progress: no change Goal: Patient-Specific Goal (Individualized) Description: You can add care plan individualizations to a care plan. Examples of Individualizationmight be: Parent requests to be called daily at 9am for status, I have a hard time hearing out of my right ear, or Do not touch me to wake me up as it startles me. Outcome: Progressing Goal: Absence of Hospital-Acquired Illness or Injury Outcome: Progressing Intervention: Identify and Manage Fall Risk Recent Flowsheet Documentation Taken 03/21/20241656 by Irvin Zeng RN Safety Promotion/Fall Prevention: assistive device/personal items within reach clutter free environment maintained nonskid shoes/slippers when out of bed safety round/check completed Intervention: Prevent Skin Injury Recent Flowsheet Documentation Taken 03/21/20241656 by Irvin Zeng RN Body Position: position changed independently Intervention: Prevent and Manage VTE (Venous Thromboembolism) Risk Recent Flowsheet Documentation Taken 03/21/20241656 by Irvin Zeng RN VTE Prevention/Management: (pt refused heparin injection) SCDs on (sequential compression devices) Goal: Optimal Comfort and Wellbeing Outcome: Progressing Goal: Readiness for Transition of Care Outcome: Progressing Problem: Fall Injury Risk Goal: Absence of Fall and Fall-Related Injury Outcome: Progressing Intervention: Identify and Manage Contributors Recent Flowsheet Documentation Taken 03/21/20241656 by Irvin Zeng RN Medication Review/Management: medications reviewed Intervention: Promote Injury-Free Environment Recent Flowsheet Documentation Taken 03/21/20241656 by Irvin Zeng RN Safety Promotion/Fall Prevention: assistive device/personal items within reach clutter free environment maintained nonskid shoes/slippers when out of bed safety round/check completed Problem: Pain Acute Goal: Optimal Pain Control and Function Outcome: Progressing Intervention: Prevent or Manage Pain Recent Flowsheet Documentation Taken 03/21/20241656 by Irvin Zeng RN Medication Review/Management: medications reviewed Intervention: Optimize Psychosocial Wellbeing Recent Flowsheet Documentation Taken 03/21/2024 1657 by Irvin Zeng RN Supportive Measures: active listening utilized Problem: Oral Intake Inadequate Goal: Improved Oral Intake Outcome: Progressing * Plan of Care - Birgit Perea RN - 03/21/2024 8:01 AM CDT PRIMARY DIAGNOSIS: ACUTE PAIN/right hip pain OUTPATIENT/OBSERVATION GOALS TO BE MET BEFORE DISCHARGE: 1. Pain Status: Improved but still requiring IV narcotics. 2. Return to near baseline physical activity: No 3. Cleared for discharge by consultants (if involved): No Release Coordinator Nurse Safe discharge environment identified: Yes Barriers to discharge: Yes Entered by: Birgit Perea RN 03/21/2024 08:01 Pt A&O, independent for mobility, has pain in right hip, 02/01 , IV Dilaudid was given, potassium were replaced, pt is on continuing fluids , ate 50% of her meal, CMS intact, makes needs known. BP 111/72 (BP Location: Right arm) Pulse 72 Temp 98 ??F (36.7 ??C) (Oral) Resp 16 Ht 1.702 m (5' 7) Wt 47.9 kg (105 lb 11.2 oz) SpO2 98% BMI 16.55 kg/m?? Problem: Adult Inpatient Plan of Care Goal: Plan of Care Review Description: The Plan of Care Review/Shift note should be completed every shift. The Outcome Evaluation is a brief statement about your assessment that the patient is improving, declining, or no change. This information will be displayed automatically on your shift note. Outcome: Not Progressing Flowsheets (Taken 03/21/2024 0988) Outcome Evaluation: pt. is having pain 7/8 in her hip, potassium 2.9, were replaced Plan of Care Reviewed With: patient Goal: Patient-Specific Goal (Individualized) Description: You can add care plan individualizations to a care plan. Examples of Individualizationmight be: Parent requests to be called daily at 9am for status, I have a hard time hearing out of my right ear, or Do not touch me to wake me up as it startles me. Outcome: Not Progressing Goal: Absence of Hospital-Acquired Illness or Injury Outcome: Not Progressing Intervention: Prevent Skin Injury Recent Flowsheet Documentation Taken 03/21/2024914 by Birgit Perea RN Body Position: position changed independently Taken 03/21/2024714 by Birgit Perea RN Body Position: position changed independently Goal: Optimal Comfort and Wellbeing Outcome: Not Progressing Intervention: Monitor Pain and Promote Comfort Recent Flowsheet Documentation Taken 03/21/2024914 by Birigt Perea RN Pain Management Interventions: medication (see MAR) Taken 03/21/2024714 by Birgit Perea RN Pain Management Interventions: medication (see MAR) Goal: Readiness for Transition of Care Outcome: Not Progressing Flowsheets (Taken 03/21/2024 09) Anticipated Changes Related to Illness: inability to care for self Transportation Anticipated: family or friend will provide Concerns to be Addressed: adjustment to diagnosis/illness home safety medication Barriers to Discharge: IV meds, low potassium Intervention: Mutually Develop Transition Plan Recent Flowsheet Documentation Taken 03/21/2024958 by Birgit Perea RN Anticipated Changes Related to Illness: inability to care for self Transportation Anticipated: family or friend will provide Concerns to be Addressed: adjustment to diagnosis/illness home safety medication Problem: Fall Injury Risk Goal: Absence of Fall and Fall-Related Injury Outcome: Not Progressing Problem: Pain Acute Goal: Optimal Pain Control and Function Outcome: Not Progressing Intervention: Develop Pain Management Plan Recent Flowsheet Documentation Taken 03/21/2024914 by Birgit Perea RN Pain Management Interventions: medication (see MAR) Taken 03/21/2024714 by Birgit Perea RN Pain Management Interventions: medication (see MAR) Problem: Oral Intake Inadequate Goal: Improved Oral Intake Outcome: Not Progressing Please review provider order for any additional goals. Nurse to notify provider when observation goals have been met and patient is ready for discharge.Goal Outcome Evaluation: Plan of Care Reviewed With: patient Outcome Evaluation: pt. is having pain 7/8 in her hip, potassium 2.9, were replaced * Plan of Care - Saundra Brandt RN - 03/21/2024 4:00 AM CDT PRIMARY DIAGNOSIS: Abnormal labs OUTPATIENT/OBSERVATION GOALS TO BE MET BEFORE DISCHARGE: ADLs back to baseline: Yes Activity and level of assistance: Ambulating independently. Pain status: Improved-controlled with oral pain medications. Return to near baseline physical activity: Yes Release Coordinator Nurse Safe discharge environment identified: No Barriers to discharge: Yes Entered by: Saundra Brandt RN 03/21/2024 4:29 AM Remained complaining of Rt hip pain rating 10/10, IV Dilaudid given and ice application. Denies anySOB. On NS 100 ml/hr. Oral intake adequate and voiding spontaneously. Independent in the room with walker, refusing bed alarm. Latest K 2.8 on protocol. Please review provider order for any additional goals. Nurse to notify provider when observation goals have been met and patient is ready for discharge. Goal Outcome Evaluation: Plan of Care Reviewed With: patient Overall Patient Progress: no changeOverall Patient Progress: no change Outcome Evaluation: K level improving * Plan of Care - Saundra Brandt RN - 03/21/2024 12:12 AM CDT PRIMARY DIAGNOSIS: Abnormal labs OUTPATIENT/OBSERVATION GOALS TO BE MET BEFORE DISCHARGE: ADLs back to baseline: Yes Activity and level of assistance: Up with standby assistance. Pain status: Improved but still requiring IV narcotics. Return to near baseline physical activity: Yes Release Coordinator Nurse Safe discharge environment identified: Yes Barriers to discharge: Yes Entered by: Saundra Brandt RN 03/21/2024 12:23 AM Alert and oriented. On K protocol, replacement done. Complaining of right hip pain, MD initially ordered po Dilaudid given but patient verbalized pain remained at 10/10. IV Dilaudid given patient rate her pain 5/10 after.On continuous IV fluids NS 100 ml/hr. Refused bed alarm, education done and enc ouraged to call for assistance. Ambulates to the bathroom with walker. Please review provider order for any additional goals. Nurse to notify provider when observation goals have been met and patient is ready for discharge. Goal Outcome Evaluation: Plan of Care Reviewed With: patient Overall Patient Progress: no changeOverall Patient Progress: no change Outcome Evaluation: remained in pain * Pharmacy-Admission Medication History - Roberto Carlos Wagner [facility] - 03/20/2024 8:33 PM CDT Pharmacist Admission Medication History Admission medication history is complete. The information provided in this note is only as accurateas the sources available at the time of the update. Information Source(s): Patient via in-person + recent admission Pertinent Information: - not yet needed the new senna-docusate Changes made to [employer] medication list: Added: None Deleted: None Changed: None Allergies reviewed with patient and updates made in EHR: no (reviewed 2 weeks ago) Medication History Completed By: Roberto Carlos Wagner RPH 03/20/2024 8:33 PM [employer] Med List Medication Sig Last Dose calcium carbonate (TUMS) 500 MG chewable tablet Take 1-2 chew tab by mouth daily as needed for heartburn Past Week ferrous sulfate 325 (65 Fe) MG TBEC EC tablet Take 325 mg by mouth 3 times daily. With food or snack 03/20/2024 at am gabapentin (NEURONTIN) 100 MG capsule Take 1 capsule (100 mg) by mouth 3 times daily. 03/20/2024 at am HYDROmorphone (DILAUDID) 4 MG tablet Take 1 tablet (4 mg) by mouth every 6 hours as needed for moderate to severe pain. 03/19/2024 at pm hydrOXYzine HCl (ATARAX) 25 MG tablet Take 1-2 tablets (25-50 mg) by mouth every 6 hours as needed for other (adjuvant pain). 03/19/2024 at pm magnesium oxide (MAG-OX) 400 MG tablet Take 400 mg by mouth 3 times daily 03/20/2024 at am methocarbamol (ROBAXIN) 750 MG tablet Take 750 mg by mouth every 6 hours as needed for muscle spasms. Past Week multivitamin, therapeutic (THERA-VIT) TABS Take 1 tablet by mouth daily 03/20/2024 at am potassium chloride deanne ER (KLOR-CON M20) 20 MEQ CR tablet Take 4 tablets (80 mEq) by mouth 2 timesdaily for 14 days. 03/20/2024 at am senna-docusate (SENOKOT-S/PERICOLACE) 8.6-50 MG tablet Take 1 tablet by mouth daily. Past Month at not yet needed (new 03/12) spironolactone (ALDACTONE) 25 MG tablet Take 1 tablet (25 mg) by mouth daily. 03/20/2024 at am * Provider Notification - Saundra Brandt RN - 03/20/2024 8:33 PM CDT Patient requesting pain medication for her Rt hip pain according to her in her last admission she had IV Dilaudid and worked for her, rating pain 10/10. Thanks. Saundra Brandt RN * Plan of Care - Saundra Brandt RN - 03/20/2024 8:02 PM CDT ROOM # 205 Living Situation (if not independent, order SW consult): Lives alone Facility name: burial needs salesperson: Aranza Klein ( mother) [phone] Activity level at baseline: Independent with walker Activity level on admit: SBA with walker Who will be transporting you at discharge: Family Patient registered to observation; given Patient Bill of Rights; given the opportunity to ask questions about observation status and their plan of care. Patient has been oriented to the observation room, bathroom and call light is in place. Discussed discharge goals and expectations with patient/family. documented in this encounter Plan of Treatment Scheduled Referrals Name Type Priority Associated Diagnoses Orde r Schedule Pain Management Pit Steward Referral Referral Routine: Next available opening Chronic pain syndrome Expected: 03/21/2024 (Approximate), Expires: 03/21/2025 documented as of this encounter Procedures Procedure Name Priority Date/Time Associated Diagnosis Comments BASIC METABOLIC PANEL Routine 03/23/2024 5:11 AM CDT CBC WITH PLATELETS Routine 03/23/2024 5: 11 AM CDT BASIC METABOLIC PANEL Routine 03/22/2024 5:24 AM CDT CBC WITH PLATELETS Routine 03/22/2024 5: 24 AM CDT POTASSIUM Timed 03/21/2024 7:54 PM CDT URINE DRUG SCREEN Routine 03/21/2024 1:2 9 PM CDT DIURETIC SCREEN, URINE Routine 03/21/2024 1:29 PM CDT URINE DRUG SCREEN PANEL Routine 03/21/2024 1:29 PM CDT POTASSIUM Timed 03/21/2024 12:28 PM CDT POTASSIUM Timed 03/21/2024 9:25 AM CDT CBC WITH PLATELETS AND DIFFERENTIAL Routine 03/21/2024 6:35 AM CDT CBC WITH PLATELETS & DIFFERENTIAL Routine 03/21/2024 6:35 AM CDT PARATHYROID HORMONE INTACT Routine 03/21/2024 6:35 AM CDT MAGNESIUM Add-On 03/21/2024 6:35 AM CDT IONIZED CALCIUM Routine 03/21/2024 6:35 AM CDT BASIC METABOLIC PANEL Routine 03/21/2024 6:35 AM CDT POTASSIUM Timed 03/21/2024 2:58 AM CDT POTASSIUM Routine 03/20/2024 9:19 PM CDT XR PELVIS AND HIP RIGHT 1 VIEW STAT 03/20/2024 6:24 PM CDT CBC WITH PLATELETS AND DIFFERENTIAL STAT 03/20/2024 4:15 PM CDT CBC WITH PLATELETS & DIFFERENTIAL STAT 03/20/2024 4:15 PM CDT MAGNESIUM STAT 03/20/2024 4:15 PM CDT BASIC METABOLIC PANEL STAT 03/20/2024 4:15 PM CDT documented in this encounter Results * (ABNORMAL) CBC with platelets (03/23/2024 5:11 AM CDT) WBC Count 7.0 4.0 - 11.0 10e3/uL 03/23/2024 5:37 AM CDT [facility] RBC Count 2.88(L) 3.80 - 5.20 10e6/uL 03/23/2024 5:37 AM CDT [facility] Hemoglobin 7.9(L) 11.7 - 15.7 g/dL 03/23/2024 5:37 AM CDT [facility] Hematocrit 25.1(L) 35.0 - 47.0 % 03/23/2024 5:37 AM CDT [facility] MCV 87 78 - 100 fL 03/23/2024 5:37 AM CDT [facility] MCH 27.4 26.5 - 33.0 pg 03/23/2024 5:37 AM CDT [facility] MCHC 31.5 31.5 - 36.5 g/dL 03/23/2024 5:37 AM CDT [facility] RDW 16.8(H) 10.0 - 15.0 % 03/23/2024 5:37 AM CDT [facility] Platelet Count 382 150 - 450 10e3/uL 03/23/2024 5:37 AM CDT [facility] Blood BLOOD SPECIMEN / Unknown Venipuncture / Unknown 03/23/2024 5:11 AM CDT 03/23/2024 5:32 AM CDT Javon Devine MD LAB - BLOOD ORDERABL ES [facility] [address] Lab (1st floor, no room number) [place] [address], [facility] * (ABNORMAL) Basic metabolic panel (03/23/2024 5:11 AM CDT) Sodium 142 135 - 145 mmol/L 03/23/2024 5:58 AM CDT LABORATORY Potassium 4.9 3.4 - 5.3 mmol/L 03/23/2024 5:58 AM CDT [facility] Chloride 106 98 - 107 mmol/L 03/23/2024 5:58 AM CDT LABOR[facility]ORY Carbon Dioxide (CO2) 26 22 - 29 mmol/L 03/23/2024 5:58 AM CDT [facility] Anion Gap 10 7 - 15 mmol/L 03/23/2024 5:58 AM CDT [facility] Urea Nitrogen 27.6(H) 6.0 - 20.0 mg/dL 03/23/2024 5:58 AM CDT [facility] Creatinine 1.34(H) 0.51 - 0.95 mg/dL 03/23/2024 5:58 AM CDT [facility] GFR Estimate 54(L) >60 mL/min/1.7 3m2 03/23/2024 5:58 AM CDT [facility] Comment:eGFR calculated usin g 2020 CKD-EPI equation. Calcium 9.6 8.8 - 10.4 mg/dL 03/23/2024 5:58 AM CDT [facility] Comment:Reference intervals for this test were updated on 01/08/2024 to reflect our healthy population more accurately. There may be differences in the flagging of prior results with similar values performed with this method. Those prior results can be interpreted in the context of the updated reference intervals. Glucose 110(H) 70 - 99 mg/dL 03/23/2024 5:58 AM CDT [facility] Blood BLOOD SPECIMEN / Unknown Venipuncture / Unknown 03/23/2024 5:11 AM CDT 03/23/2024 5:32 AM CDT Mireya Franz PA-C LAB - BLOOD ORDERA BLES [facility] [address] Lab (1st floor, no room number) [place] [address] * (ABNORMAL) Basic metabolic panel (03/22/2024 5:24 AM CDT) Sodium 142 135 - 145 mmol/L 03/22/2024 5:58 AM CDT LABOR[facility] Potassium 3.8 3.4 - 5.3 mmol/L 03/22/2024 5:58 AM CDT [facility] Chloride 100 98 - 107 mmol/L 03/22/2024 5:58 AM CDT [facility] Carbon Dioxide (CO2) 30(H) 22 - 29 mmol/L 03/22/2024 5:58 AM CDT [facility] Anion Gap 12 7 - 15 mmol/L 03/22/2024 5:58 AM CDT LABORATORY Urea Nitrogen 29.0(H) 6.0 - 20.0 mg/dL 03/22/2024 5:58 AM CDT LABORATORY Creatinine 1.45(H) 0.51 - 0.95 mg/dL 03/22/2024 5:58 AM CDT LABORATORY GFR Estimate 49(L) >60 mL/min/1.7 3m2 03/22/2024 5:58 AM CDT [facility] Comment:eGFR calculated usin 2020 CKD-EPI equation. Calcium 9.4 8.8 - 10.4 mg/dL 03/22/2024 5:58 AM CDT [facility] Comment:Reference intervals for this test were updated on 01/08/2024 to reflect our healthy population more accurately. There may be differences in the flagging of prior results with similar values performed with this method. Those prior results can be interpreted in the context of the updated reference intervals. Glucose 127(H) 70 - 99 mg/dL 03/22/2024 5:58 AM CDT [facility] Blood BLOOD SPECIMEN / Unknown Venipuncture / Unknown 03/22/2024 5:24 AM CDT 03/22/2024 5:35 AM CDT Mireya Osei PA-C LAB - BLOOD ORDERA BL[facility] [address] Lab (1st floor, no room number) [place] [address] * (ABNORMAL) CBC with platelets (03/22/2024 5:24 AM CDT) WBC Count 9.8 4.0 - 11.0 10e3/uL 03/22/2024 6:09 AM CDT [facility] RBC Count 3.21(L) 3.80 - 5.20 10e6/uL 03/22/2024 6:09 AM CDT [facility] Hemoglobin 8.9(L) 11.7 - 15.7 g/dL 03/22/2024 6:09 AM CDT [facility] Hematocrit 27.7(L) 35.0 - 47.0 % 03/22/2024 6:09 AM CDT [facility] MCV 86 78 - 100 fL 03/22/2024 6:09 AM CDT [facility] MCH 27.7 26.5 - 33.0 pg 03/22/2024 6:09 AM CDT [facility] MCHC 32.1 31.5 - 36.5 g/dL 03/22/2024 6:09 AM CDT [facility] RDW 16.6(H) 10.0 - 15.0 % 03/22/2024 6:09 AM CDT [facility] Platelet Count 427 150 - 450 10e3/uL 03/22/2024 6:09 AM CDT [facility] Blood BLOOD SPECIMEN / Unknown Venipuncture / Unknown 03/22/2024 5:24 AM CDT 03/22/2024 5:35 AM CDT Mireya Franz PA-C LAB - BLOOD ORDERA [facility] [address] [address] [facility] (1st floor, no room number) [place] [address], [facility] * Potassium (03/21/2024 7:54 PM CDT) Potassium 3.9 3.4 - 5.3 mmol/L 03/21/2024 8:37 PM CDT [facility] Blood STRUCTURE OF LEFT HAND / Unknown Venipuncture / Unknown 03/21/2024 7:54 PM CDT 03/21/2024 8:18 PM CDT Mireya Franz PA-C LAB - BLOOD ORDERA BLES LABORATORY [facility] [address] Lab (1st floor, no room number) [place] [address] * (ABNORMAL) Urine Drug Screen Panel (03/21/2024 1:29 PM CDT) [facility] Amphetamines Urine Screen Negative Screen Negative [...] Bender MD LAB - URINE ORDERABL ES [facility] Lab [address] Lab (1st floor, no room number) [place] [address] * Diuretic Screen, Urine (03/21/2024 1:29 PM CDT) Diuretic Screen Urine NEGATIVE 05/2024 10:41 AM CDT [facility] Comment: Performed by: [facility] [address] [place] [id number] Liz Guardado Benzthiazide NEGATIVE 04/05/2024 10:41 AM CDT [facility] Comment: Performed by: [facility] [address] [place] [id number] Liz Guardado Bumetanide NEGATIVE 04/05/2024 10:41 AM CDT [facility] Comment: Performed by: [facility] [address] [place] [id number] Liz Guardado Chlorothiazide NEGATIVE 04/05/2024 10:41 AM CDT [facility] Comment: Performed by: [facility] [address] [place] [id number] Liz Guardado Chlorthalidone NEGATIVE 04/05/2024 10:41 AM CDT [facility] Comment: Performed by: [facility] [address] [place] [id number] Liz Guardado Furosemide NEGATIVE 04/05/2024 10:41 AM CDT [facility] Comment: Performed by: [facility] [address] [place] [id number] Liz Guardado Hydrochlorothiazide NEGATIVE 04/05 10:41 AM CDT [facility] Comment: Performed by: [facility] [address] [place] [id number] Liz Guardado Hydroxyflumethiazide NEGATIVE 03/25 10:41 AM CDT [facility] Comment: Performed by: [facility] [address] [place] [id number] Liz Guardado Metolazone NEGATIVE 04/05/2024 10:41 AM CDT [facility] Comment: Qualitative diuretic screen includes: benzthiazide, bumetanide, chlorothiazide, chlorthalidone, furosemide, hydrochlorothiazide, hydroflumethiazide, and metolazone. ?? This test was developed and its performance characteristics determined by [facility]. It has not been cleared or approved by the Food and Drug Administration. Performed by: [facility] [address] [place] [id number] Liz Guardado Urine URINE SPECIMEN OBTAINED BY CLEAN CATCH PROCEDURE / Unknown Non-blood Collection / Unknown 03/21/2024 1:29 PM CDT 03/21/2024 1:37 PM CDT Charles Bender MD LAB - URINE ORDERABL ES [facility]S [facility] [address] [place] [address], [facility] [phone] * Potassium (03/21/2024 12:28 PM CDT) Potassium 3.5 3.4 - 5.3 mmol/L 03/21/2024 12:55 PM CDT LABORATORY Blood STRUCTURE OF RIGHT HAND / Unknown Venipuncture / Unknown 03/21/2024 12:28 PM CDT 03/21/2024 12:32 PM CDT Osei Clark DO LAB - BLOOD ORDERABL ES LABORATORY [facility] [address] Lab (1st floor, no room number) [place] [address], [facility] * (ABNORMAL) Potassium (03/21/2024 9:25 AM CDT) Potassium 3.1(L) 3.4 - 5.3 mmol/L 03/21/2024 9:54 AM CDT LABORATORY Blood BLOOD SPECIMEN / Unknown Venipuncture / Unknown 03/21/2024 9:25 AM CDT 03/21/2024 9:32 AM CDT Julia Vee PA-C LAB - BLOOD [place] [facility]ORAT[facility] [address] Lab (1st floor, no room number) [place] [phone] * Magnesium (03/21/2024 6:35 AM CDT) [facility] Magnesium 2.1 1.7 - 2.3 mg/dL 03/21/2024 8:52 AM CDT [facility] Blood STRUCTURE OF LEFT HAND / Unknown Venipuncture / Unknown 03/21/2024 6:35 AM CDT 03/21/2024 6:40 AM CDT Mireya Franz PA-C LAB - BLOOD ORDERA BLES Performing Organization Address City/[facility]/ZIP Co de Phone Number LABORATORY [facility] [address] Lab (1st floor, no room number) [place] [phone] * (ABNORMAL) CBC with platelets and differential (03/21/2024 6:35 AM CDT) [facility] WBC Count 7.0 4.0 - 11.0 10e3/uL 03/21/2024 6:49 AM CDT [facility] RBC Count 3.06(L) 3.80 - 5.20 10e6/uL 03/21/2024 6:49 AM CDT [facility] Hemoglobin 8.5(L) 11.7 - 15.7 g/dL 03/21/2024 6:49 AM CDT [facility] Hematocrit 25.8(L) 35.0 - 47.0 % 03/21/2024 6:49 AM CDT [facility] MCV 84 78 - 100 fL 03/21/2024 6:49 AM CDT [facility] MCH 27.8 26.5 - 33.0 pg 03/21/2024 6:49 AM CDT [facility] MCHC 32.9 31.5 - 36.5 g/dL 03/21/2024 6:49 AM CDT [facility] RDW 16.0(H) 10.0 - 15.0 % 03/21/2024 6:49 AM CDT [facility] Platelet Count 390 150 - 450 10e3/uL 03/21/2024 6:49 AM CDT [facility] % Neutrophils 38 % 03/21/2024 6:49 AM CDT [facility] % Lymphocytes 48 % 03/21/2024 6:49 AM CDT [facility] % Monocytes 9 % 03/21/2024 6:49 AM CDT [facility] % Eosinophils 4 % 03/21/2024 6:49 AM CDT [facility] % Basophils 2 % 03/21/2024 6:49 AM CDT [facility] % Immature Granulocytes 0 % 03/21/2024 6:49 AM CDT [facility] NRBCs per 100 WBC 0 <1 /100 024 6:49 AM CDT [facility] Absolute Neutrophils 2.6 1.6 - 8.3 10e3/uL 03/21/2024 6:49 AM CDT [facility] Absolute Lymphocytes 3.3 0.8 - 5.3 10e3/uL 03/21/2024 6:49 AM CDT [facility] Absolute Monocytes 0.6 0.0 - 1.3 10e3/uL 03/21/2024 6:49 AM CDT [facility] Absolute Eosinophils 0.3 0.0 - 0.7 10e3/uL 03/21/2024 6:49 AM CDT [facility] Absolute Basophils 0.1 0.0 - 0.2 10e3/uL 03/21/2024 6:49 AM CDT [facility] Absolute Immature Granulocytes 0.0 <=0.4 10e3/uL 03/21/2024 6:49 AM CDT [facility] Absolute NRBCs 0.0 10e3/uL 03/21/2024 6:49 AM CDT [facility] Blood STRUCTURE OF LEFT HAND / Unknown Venipuncture / Unknown 03/21/2024 6:35 AM CDT 03/21/2024 6:41 AM CDT Julia Vee PA-C LAB - BLOOD [place] [facility] Address City/State/ZIP Co de Phone Number [facility] LAB[facility]AT[facility] [address] Lab (1st floor, no room number) [address] * Ionized Calcium (03/21/2024 6:35 AM CDT) Pathologist [facility] Calcium Ionized Whole Blood 4.7 4.4 - 5.2 mg/dL 03/21/2024 6:46 AM CDT LABORATORY Blood STRUCTURE OF LEFT HAND / Unknown Venipuncture / Unknown 03/21/2024 6:35 AM CDT 03/21/2024 6:45 AM CDT Charles Bender MD LAB - BLOOD ORDERABL ES Performing Organization Address City/[facility]/ZIP Co de Phone Number [facility] [address] Lab (1st floor, no room number) [address] * Parathyroid Hormone Intact (03/21/2024 6:35 AM CDT) [facility] Parathyroid Hormone Intact 29 15 - 65 pg/mL 03/21/2024 7:26 AM CDT LABORATORY Blood STRUCTURE OF LEFT HAND / Unknown Venipuncture / Unknown 03/21/2024 6:35 AM CDT 03/21/2024 6:47 AM CDT Narrative LABORATORY - 03/21/2024 7:26 AM CDT This result was obtained with the [employer] PTH STAT assay. This reference range differs from PTH assays used in other [facility] laboratories. Charles Bedner MD LAB - BLOOD ORDERABL ES Performing Organization Address City/[facility]/ZIP Co de Phone Number [facility] Lab [address] Lab (1st floor, no room number) [address] * (ABNORMAL) Basic metabolic panel (03/21/2024 6:35 AM CDT) Pathologist [facility] Sodium 138 135 - 145 mmol/L 03/21/2024 7:28 AM CDT LABORATORY Potassium 2.9(L) 3.4 - 5.3 mmol/L 03/21/2024 7:28 AM CDT LABORATORY Chloride 93(L) 98 - 107 mmol/L 03/21/2024 7:28 AM CDT LABORATORY Carbon Dioxide (CO2) 37(H) 22 - 29 mmol/L 03/21/2024 7:28 AM CDT LABORATORY Anion Gap 8 7 - 15 mmol/L 03/21/2024 7:28 AM CDT LABORATORY Urea Nitrogen 37.5(H) 6.0 - 20.0 mg/dL 03/21/2024 7:28 AM CDT LABORATORY Creatinine 2.04(H) 0.51 - 0.95 mg/dL 03/21/2024 7:28 AM CDT LABORATORY GFR Estimate 32(L) >60 mL/min/1.7 3m2 03/21/2024 7:28 AM CDT LABORATORY Comment:eGFR calculated usin 2020 CKD-EPI equation. Calcium 9.5 8.8 - 10.4 mg/dL 03/21/2024 7:28 AM CDT LABORATORY Comment:Reference intervals for this test were updated on 01/08/2024 to reflect our healthy population more accurately. There may be differences in the flagging of prior results with similar values performed with this method. Those prior results can be interpreted in the context of the updated reference intervals. Glucose 105(H) 70 - 99 mg/dL 03/21/2024 7:28 AM CDT LABORATORY Blood STRUCTURE OF LEFT HAND / Unknown Venipuncture / Unknown 03/21/2024 6:35 AM CDT 03/21/2024 6:40 AM CDT Julia Vee PA-C LAB - BLOOD [place] LABORATORY [facility] [address] Lab (1st floor, no room number) [place] [address], [facility] * (ABNORMAL) Potassium (03/21/2024 2:58 AM CDT) [facility] Potassium 2.8(L) 3.4 - 5.3 mmol/L 03/21/2024 3:34 AM CDT LABORATORY Blood STRUCTURE OF LEFT HAND / Unknown Venipuncture / Unknown 03/21/2024 2:58 AM CDT 03/21/2024 3:10 AM CDT Julia Vee PA-C LAB - BLOOD [place] Performing Organization Address [facility]/ZIP Co de Phone Number [facility] [address] Lab (1st floor, no room number) [place] [address], [facility] * (ABNORMAL) Potassium (03/20/2024 9:19 PM CDT) [facility] Potassium 2.7(L) 3.4 - 5.3 mmol/L 03/20/2024 9:47 PM CDT LABORATORY Blood STRUCTURE OF LEFT HAND / Unknown Venipuncture / Unknown 03/20/2024 9:19 PM CDT 03/20/2024 9:27 PM CDT Julia Vee ABDIFATAHJasmeetMajor LAB - BLOOD [place] Performing Organization Address [facility]/ZIP Co de Phone Number [facility] [address] Lab (1st floor, no room number) [place] [address], [facility] * XR Pelvis w Hip Right [...] PELVIS AND HIP RIGHT 1 VIEW LOCATION: [facility] DATE: 03/20/2024 INDICATION: Fall, Right hip pain, recent right pubic ramus fracture COMPARISON: 02/15/2024. Procedure Note Sean Villareal MD - 03/20/2024 EXAM: XR PELVIS AND HIP RIGHT 1 VIEW LOCATION: [facility] DATE: 03/20/2024 INDICATION: Fall, Right hip pain, recent right pubic ramus fracture COMPARISON: 02/15/2024. IMPRESSION: Mildly comminuted nondisplaced fractures of the right inferiorpubic ramus. No additional fracture. The pubic symphysis and SI joints areintact. Hip joints are normally aligned, joint spacing is maintained. Michael Ruiz DO IMG DIAGNOSTIC IMAGI NG ORDERABLES * Magnesium (03/20/2024 4:15 PM CDT) Pathologist [facility] Magnesium 2.1 1.7 - 2.3 mg/dL 03/20/2024 5:08 PM CDT [facility] Blood BLOOD SPECIMEN / Unknown Venipuncture / Unknown 03/20/2024 4:15 PM CDT 03/20/2024 4:20 PM CDT Michael Ruiz DO LAB - BLOOD ORDERABL ES [facility] Lab [address] [facility] Lab (1st floor, no room number) [place] [address] * (ABNORMAL) CBC with platelets and differential (03/20/2024 4:15 PM CDT) WBC Count 6.2 4.0 - 11.0 10e3/uL 03/20/2024 4:23 PM CDT [facility] RBC Count 3.62(L) 3.80 - 5.20 10e6/uL 03/20/2024 4:23 PM CDT [facility] Hemoglobin 9.9(L) 11.7 - 15.7 g/dL 03/20/2024 4:23 PM CDT [facility] Hematocrit 29.6(L) 35.0 - 47.0 % 03/20/2024 4:23 PM CDT [facility] MCV 82 78 - 100 fL 03/20/2024 4:23 PM CDT [facility] MCH 27.3 26.5 - 33.0 pg 03/20/2024 4:23 PM CDT [facility] MCHC 33.4 31.5 - 36.5 g/dL 03/20/2024 4:23 PM CDT [facility] RDW 15.9(H) 10.0 - 15.0 % 03/20/2024 4:23 PM CDT [facility] Platelet Count 484(H) 150 - 450 10e3/uL 03/20/2024 4:23 PM CDT [facility] % Neutrophils 53 % 03/20/2024 4:23 PM CDT [facility] % Lymphocytes 35 % 03/20/2024 4:23 PM CDT [facility] % Monocytes 9 % 03/20/2024 4:23 PM CDT [facility] % Eosinophils 2 % 03/20/2024 4:23 PM CDT [facility] % Basophils 2 % 03/20/2024 4:23 PM CDT [facility] % Immature Granulocytes 1 % 03/20/2024 4:23 PM CDT [facility] NRBCs per 100 WBC 0 <1 /100 024 4:23 PM CDT [facility] Absolute Neutrophils 3.3 1.6 - 8.3 10e3/uL 03/20/2024 4:23 PM CDT [facility] Absolute Lymphocytes 2.1 0.8 - 5.3 10e3/uL 03/20/2024 4:23 PM CDT [facility] Absolute Monocytes 0.6 0.0 - 1.3 10e3/uL 03/20/2024 4:23 PM CDT [facility] Absolute Eosinophils 0.1 0.0 - 0.7 10e3/uL 03/20/2024 4:23 PM CDT [facility] Absolute Basophils 0.1 0.0 - 0.2 10e3/uL 03/20/2024 4:23 PM CDT [facility] Absolute Immature Granulocytes 0.0 <=0.4 10e3/uL 03/20/2024 4:23 PM CDT [facility] Absolute NRBCs 0.0 10e3/uL 03/20/2024 4:23 PM CDT [facility] Blood BLOOD SPECIMEN / Unknown Venipuncture / Unknown 03/20/2024 4:15 PM CDT 03/20/2024 4:20 PM CDT Michael Ruiz DO LAB - BLOOD ORDERABL ES [facility] LAB[facility] [address] Lab (1st floor, no room number) [place] [address], [facility] * (ABNORMAL) Basic metabolic panel (03/20/2024 4:15 PM CDT) Sodium 134(L) 135 - 145 mmol/L 03/20/2024 5:17 PM CDT LABORATORY Potassium 2.4(LL) 3.4 - 5.3 mmol/L 03/20/2024 5:17 PM CDT LABORATORY Chloride 80(L) 98 - 107 mmol/L 03/20/2024 5:17 PM CDT LABORATORY Carbon Dioxide (CO2) 35(H) 22 - 29 mmol/L 03/20/2024 5:17 PM CDT LABORATORY Anion Gap 19(H) 7 - 15 mmol/L 03/20/2024 5:17 PM CDT LABORATORY Urea Nitrogen 44.4(H) 6.0 - 20.0 mg/dL 03/20/2024 5:17 PM CDT LABORATORY Creatinine 2.49(H) 0.51 - 0.95 mg/dL 03/20/2024 5:17 PM CDT LABORATORY GFR Estimate 26(L) >60 mL/min/1.7 3m2 03/20/2024 5:17 PM CDT LABORATORY Comment:eGFR calculated usin g 2020 CKD-EPI equation. Calcium 10.8(H) 8.8 - 10.4 mg/dL 03/20/2024 5:17 PM CDT LABORATORY Comment:Reference intervals for this test were updated on 01/08/2024 to reflect our healthy population more accurately. There may be differences in the flagging of prior results with similar values performed with this method. Those prior results can be interpreted in the context of the updated reference intervals. 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 Acute renal failure superimposed on chronic kidney disease, unspecified acute renal failure type, unspecified CKD stage (H) Right hip pain Pain in joint, pelvic region and thigh Inferior pubic ramus fracture, right, closed, initial encounter (H) Chronic pain syndrome Closed fracture of single ramus of right pubis, with delayed healing, subsequent encounter Right hip pain Pain in joint, pelvic region and thigh Acute renal failure superimposed on chronic kidney disease, unspecified acute renal failure type, unspecified CKD stage (H) Inferior pubic ramus fracture, right, closed, initial encounter (H) documented in this encounter Admitting Diagnoses Diagnosis Inferior pubic ramus fracture, right, closed, initial encounter (H) documented in this encounter Administered Medications Inactive Administered Medications - up to 3 most recent administrations Medication Order MAR Action Action Date Dose Rate Site 0.9% sodium chloride + KCl 20 mEq/L infusion at 100 mL/hr, Intravenous, CONTINUOUS, Starting on Sun03/21/24 at 0800, Until 03/22/24 at 1152 $New Bag 03/22/2024 5:55 AM CDT 100 mL/hr Rate/Dose Verify 03/22/2024 12:49 AM CDT 100 mL /hr $New Bag 03/21/2024 7:40 PM CDT 100 mL/hr acetaminophen (TYLENOL) tablet 1,000 mg 1,000 mg, Oral, 3 TIMES DAILY, First dose (after last modification) on [facility] 03/20/24 at 2100, Alternate with ibuprofen if ordered. Maximum acetaminophen dose from all sources = 75 mg/kg/day not to exceed 4 gram $Given 03/23/2024 8:21 AM CDT 1,000 mg $Given 03/22/2024 7:54 PM CDT 1,000 mg $Given 03/22/2024 1:09 PM CDT 1,000 mg apixaban ANTICOAGULANT (ELIQUIS) tablet 2.5 mg 2.5 mg, Oral, 2 TIMES DAILY, First dose on 03/22/24 at 1130, Indications: DVT-PE Prophylaxis $Given 03/22/2024 10:06 PM CDT 2.5 mg $Given 03/22/2024 1:17 PM CDT 2.5 mg ferrous sulfate (FEROSUL) tablet 325 mg 325 mg, Oral, 3 TIMES DAILY WITH MEALS, First dose on 03/23/24 at 0800 $Given 03/23/2024 11:23 AM CDT 325 mg $Given 03/23/2024 8:21 AM CDT 325 mg gabapentin (NEURONTIN) capsule 100 mg 100 mg, Oral, 3 TIMES DAILY, First dose on [facility] 03/20/24 at 2130 $Given 03/23/2024 8:21 AM CDT 100 mg $Given 03/22/2024 7:55 PM CDT 100 mg $Given 03/22/2024 1:10 PM CDT 100 mg HYDROmorphone (DILAUDID) tablet 2 mg 2 mg, Oral, EVERY 3 HOURS PRN, moderate pain, severe pain, Starting on [facility] 03/22/24 at 1000 $Given 03/23/2024 8:27 AM CDT 2 mg $Given 03/23/2024 2:46 AM CDT 2 mg HYDROmorphone (DILAUDID) tablet 2 mg 2 mg, Oral, EVERY 6 HOURS, First dose (after last modification) on [facility] 03/22/24 at 1700, Hold for sedation, RR <12 $Given 03/23/2024 6:48 AM CDT 2 mg $Given 03/22/2024 10:06 PM CDT 2 mg $Given 03/22/2024 4:48 PM CDT 2 mg HYDROmorphone (DILAUDID) tablet 2-4 mg 2-4 mg, Oral, EVERY 6 HOURS, First dose (after last modification) on [place] 03/23/24 at 1200, Give 4 mg for pain scale above 8/10 Hold for sedation, RR <12 $Given 03/23/2024 11:22 AM CDT 4 mg HYDROmorphone (DILAUDID) tablet 4 mg 4 mg, Oral, EVERY 4 HOURS PRN, severe pain, Starting on [facility] 03/20/24 at 2034 $Given 03/20/2024 8:47 PM CDT 4 mg HYDROmorphone (DILAUDID) tablet 4 mg 4 mg, Oral, EVERY 6 HOURS, First dose on [facility] 03/22/24 at 1030, Hold for sedation, RR <12 $Given 03/22/2024 11:00 AM CDT 4 mg HYDROmorphone (PF) (DILAUDID) injection 0.3 mg 0.3 mg, Intravenous, EVERY 3 HOURS PRN, severe pain, Starting on Sun03/20/24 at 2113 $Given 03/21/2024 1:22 PM CDT 0.3 mg $Given 03/21/2024 10:18 AM CDT 0.3 mg $Given 03/21/2024 7:05 AM CDT 0.3 mg HYDROmorphone (PF) (DILAUDID) injection 0.5 mg 0.5 mg, Intravenous, ONCE, On Sun03/20/24 at 1555, For 1 dose $Given 03/20/2024 4:23 PM CDT 0.5 mg HYDROmorphone (PF) (DILAUDID) injection 0.5 mg 0.5 mg, Intravenous, ONCE PRN, severe pain, Starting on Sun03/20/24 at 1755, For 1 dose $Given 03/20/2024 6:03 PM CDT 0.5 mg HYDROmorphone (PF) (DILAUDID) injection 0.5 mg 0.5 mg, Intravenous, EVERY 3 HOURS PRN, severe pain, Starting on Sun03/21/24 at 1452, For 6 doses, Please give 0.5 mg now @ 1450 on 03/21/2024 $Given 03/22/2024 8:52 AM CDT 0.5 mg $Given 03/22/2024 5:10 AM CDT 0.5 mg $Given 03/22/2024 1:50 AM CDT 0.5 mg HYDROmorphone (PF) (DILAUDID) injection 0.5 mg 0.5 mg, Intravenous, 3 TIMES DAILY PRN, severe pain, Starting on Sun03/22/24 at 0959, On hold since Sun03/23/2024 at 0717 until manually unheld $Given 03/23/2024 4:10 AM CDT 0.5 mg $Given 03/22/2024 11:29 PM CDT 0.5 mg $Given 03/22/2024 6:59 PM CDT 0.5 mg hydrOXYzine HCl (ATARAX) tablet 25 mg 25 mg, Oral, EVERY 6 HOURS PRN, other, adjuvant pain, Starting on [facility] 03/20/24 at 2034, Start with 25 mg for the initial dose. If the 25 mg dose is ineffective, increase to the 50 mg dose at the next administration time and maintain further doses at 50 mg. If the 50 mg dose is ineffective, contact the provider. $Given 03/22/2024 10:11 PM CDT 25 mg $Given 03/22/2024 8:52 AM CDT 25 mg $Given 03/22/2024 1:00 AM CDT 25 mg magnesium oxide (MAG-OX) tablet 400 mg 400 mg, Oral, 3 TIMES DAILY, First dose on [facility] 03/20/24 at 2130 $Given 03/23/2024 8:21 AM CDT 400 mg $Given 03/22/2024 7:55 PM CDT 400 mg $Given 03/22/2024 1:10 PM CDT 400 mg methocarbamol (ROBAXIN) tablet 750 mg 750 mg, Oral, 3 TIMES DAILY, First dose on [facility] 03/20/24 at 2100 $Given 03/23/2024 8:21 AM CDT 750 mg $Given 03/22/2024 7:55 PM CDT 750 mg $Given 03/22/2024 1:10 PM CDT 750 mg naloxone (NARCAN) injection 0.2 mg 0.2 mg, Intravenous, EVERY 2 MIN PRN, opioid reversal, Starting on [facility] 03/20/24 at 2037, Administer intravenous route when available and notify provider when administered. For unintended sedation or respiratory depression if all of the below criteria are met: ~ respiratory rate LESS than or EQUAL to 8. ~SaO2 less than 92% and or/end-tidal CO2 is greater than 50. ~ the patient is receiving an opioid, has unintended sedations assessed as RASS (-3), and is currently not on mechanical ventilation. RASS scale moderate (-3) is movement or eye opening to voice but no eye contact. Patient Monitoring Once the patient has demonstrated a response to the naloxone, continue to monitor respiratory rate, depth, oxygen saturation and end-tidal CO2 (if available) every 15 minutes x 2, then every 30 minutes x 2, then every 1 hour x 1 after each naloxone dose. Consider transfer to ICU if patient respiratory parameters have not improved after 4 naloxone doses. naloxone (NARCAN) injection 0.2 mg 0.2 mg, Intramuscular, EVERY 2 MIN PRN, opioid reversal, Starting on [facility] 03/20/24 at 2037, Administer intramuscular if an intravenous route is not available and notify provider when administered. For unintended sedation or respiratory depression if all of the below criteria are met: ~ respiratory rate LESS than or EQUAL to 8. ~SaO2 less than 92% and or/end-tidal CO2 is greater than 50. ~ the patient is receiving an opioid, has unintended sedations assessed as RASS (-3), and is currently not on mechanical ventilation. RASS scale moderate (-3) is movement or eye opening to voice but no eye contact. Patient Monitoring Once the patient has demonstrated a response to the naloxone, continue to monitor respiratory rate, depth, oxygen saturation and end-tidal CO2 (if available) every 15 minutes x 2, then every 30 minutes x 2, then every 1 hour x 1 after each naloxone dose. Consider transfer to ICU if patient respiratory parameters have not improved after 4 naloxone doses. naloxone (NARCAN) injection 0.4 mg 0.4 mg, Intravenous, EVERY 2 MIN PRN, opioid reversal, Starting on [place] 03/20/24 at 2037, Administer intravenous route when available and notify provider when administered. For unintended sedation or respiratory depression if all of the below criteria are met: ~ respiratory rate LESS than or EQUAL to 8. ~ SaO2 less than 92% and or/end-tidal CO2 is greater than 50. ~ the patient is receiving an opioid, has unintended sedation assessed as RASS (-4) or (-5) and patient is currently not on mechanical ventilation. RASS scale (-4) is deep sedation with no response to voice but movement or eye opening to physical stimulation. RASS scale (-5) is unarousable. Patient Monitoring Once the patient has demonstrated a response to the naloxone, continue to monitor respiratory rate, depth, oxygen saturation and end-tidal CO2 (if available) every 15 minutes x 2, then every 30 minutes x 2, then every 1 hour x 1 after each naloxone dose. Consider transfer to ICU if patient respiratory parameters have not improved after 4 naloxone doses. naloxone (NARCAN) injection 0.4 mg 0.4 mg, Intramuscular, EVERY 2 MIN PRN, opioid reversal, Starting on [place] 03/20/24 at 2037, Administer intramuscular if an intravenous route is not available and notify provider when administered. For unintended sedation or respiratory depression if all of the below criteria are met: ~ respiratory rate LESS than or EQUAL to 8. ~ SaO2 less than 92% and or/end-tidal CO2 is greater than 50. ~ the patient is receiving an opioid, has unintended sedation assessed as RASS (-4) or (-5) and patient is currently not on mechanical ventilation. RASS scale (-4) is deep sedation with no response to voice but movement or eye opening to physical stimulation. RASS scale (-5) is unarousable. Patient Monitoring Once the patient has demonstrated a response to the naloxone, continue to monitor respiratory rate, depth, oxygen saturation and end-tidal CO2 (if available) every 15 minutes x 2, then every 30 minutes x 2, then every 1 hour x 1 after each naloxone dose. Consider transfer to ICU if patient respiratory parameters have not improved after 4 naloxone doses. ondansetron (ZOFRAN ODT) ODT tab 4 mg 4 mg, Oral, EVERY 6 HOURS PRN, nausea, vomiting, Starting on Emiliana 03/20/24 at 2022, This is Step 1 of nausea and vomiting management. If nausea not resolved in 15 minutes, go to Step 2 prochlorperazine (COMPAZINE). With dry hands, peel back foil backing and gently remove tablet. Do not push oral disintegrating tablet through foil backing. Administer immediately on tongue and oral disintegrating tablet dissolves in seconds, then swallow with saliva. Liquid not required. ondansetron (ZOFRAN) injection 4 mg 4 mg, Intravenous, EVERY 6 HOURS PRN, nausea, vomiting, Administer over 2-5 Minutes, Starting on Emiliana 03/20/24 at 2022, Give IF patient unable to tolerate oral medication. This is Step 1 of nausea and vomiting management. If nausea not resolved in 15 minutes, go to Step 2 prochlorperazine (COMPAZINE). potassium chloride (KLOR-CON) Packet 40 mEq 40 mEq, Oral, ONCE, On Emiliana 03/20/24 at 1710, For 1 dose, Dissolve packet contents in 4-8 ounces of cold water or juice. $Given 03/20/2024 5:18 PM CDT 40 mEq potassium chloride deanne ER (KLOR-CON M20) CR tablet 100 mEq 100 mEq, Oral, 3 TIMES DAILY, First dose (after last modification) on Sun03/22/24 at 1400, DO NOT CRUSH $Given 03/23/2024 8:20 AM CDT 100 mEq $Given 03/22/2024 7:54 PM CDT 100 mEq $Given 03/22/2024 1:09 PM CDT 100 mEq potassium chloride deanne ER (KLOR-CON M20) CR tablet 40 mEq 40 mEq, Oral, ONCE, On Sun03/20/24 at 2200, For 1 dose, Potassium level 2.7 - 3 mmol/L Ordered from the Potassium replacement order set. DO NOT CRUSH, Potassium Replacement: Potassium level 2.7-3 mmol/L, Recheck: Potassium level 4 hours AFTER last oral dose $Given 03/20/2024 10:39 PM CDT 40 mEq potassium chloride deanne ER (KLOR-CON M20) CR tablet 40 mEq 40 mEq, Oral, ONCE, On Sun03/21/24 at 0430, For 1 dose, Potassium level 2.7 - 3 mmol/L Ordered from the Potassium replacement order set. DO NOT CRUSH, Potassium Replacement: Potassium level 2.7-3 mmol/L, Recheck: Potassium level 4 hours AFTER last oral dose $Given 03/21/2024 4:14 AM CDT 40 mEq potassium chloride deanne ER (KLOR-CON M20) CR tablet 40 mEq 40 mEq, Oral, ONCE, On Sun03/21/24 at 0730, For 1 dose, Potassium level 2.7 - 3 mmol/L Ordered from the Potassium replacement order set. DO NOT CRUSH, Potassium Replacement: Potassium level 2.7-3 mmol/L, Recheck: Potassium level 4 hours AFTER last oral dose $Given 03/21/2024 8:33 AM CDT 40 mEq potassium chloride deanne ER (KLOR-CON M20) CR tablet 80 mEq 80 mEq, Oral, 2 TIMES DAILY, First dose on Sun03/20/24 at 2130, DO NOT CRUSH $Given 03/21/2024 11:23 AM CDT 80 mEq potassium chloride deanne ER (KLOR-CON M20) CR tablet 80 mEq 80 mEq, Oral, 3 TIMES DAILY, First dose (after last modification) on Sun03/21/24 at 1500, DO NOT CRUSH $Given 03/22/2024 8:35 AM CDT 80 mEq $Given 03/21/2024 7:41 PM CDT 80 mEq $Given 03/21/2024 4:47 PM CDT 80 mEq potassium chloride deanne ER (KLOR-CON M20) CR tablet 80 mEq 80 mEq, Oral, 3 TIMES DAILY, First dose (after last modification) on Sun03/23/24 at 1400, DO NOT CRUSH senna-docusate (SENOKOT-S/PERICOLACE) 8.6-50 MG per tablet 1 tablet 1 tablet, Oral, 2 TIMES DAILY PRN, constipation, Starting on Sun03/20/24 at 2022, If no bowel movement in 24 hours, increase to 2 tablets by mouth. IF more than 1 constipation PRN medication is ordered, administer step-aguilar as indicated, moving to the next step ONLY if prior step ineffective. Step 1: senna-docusate (SENOKOT-S; PERICOLACE) OR bisacodyl (DULCOLAX) EC tablet Step 2: polyethylene glycol (MIRALAX/GLYCOLAX) Step 3: bisacodyl (DULCOLAX) suppository Step 4: enema Hold for loose stools. senna-docusate (SENOKOT-S/PERICOLACE) 8.6-50 MG per tablet 2 tablet 2 tablet, Oral, 2 TIMES DAILY PRN, constipation, Starting on Sun03/20/24 at 2022, IF more than 1 constipation PRN medication is ordered, administer step-aguilar as indicated, moving to the next step ONLY if prior step ineffective. Step 1: senna-docusate (SENOKOT-S; PERICOLACE) OR bisacodyl (DULCOLAX) EC tablet Step 2: polyethylene glycol (MIRALAX/GLYCOLAX) Step 3: bisacodyl (DULCOLAX) suppository Step 4: enema Hold for loose stools. sodium chloride 0.9 % infusion at 100 mL/hr, Intravenous, CONTINUOUS, Starting on Sun03/20/24 at 2030, Until Sun03/21/24 at 0730 $New Bag 03/21/2024 7:05 AM CDT 100 mL/hr $New Bag 03/20/2024 9:25 PM CDT 100 mL/hr sodium chloride 0.9% BOLUS 1,000 mL Intravenous, 1,000 mL, ONCE, at 1,000 mL/hr, Administer over 1 Hours, On Emiliana 03/20/24 at 1635, For 1 dose $New Bag 03/20/2024 5:18 PM CDT 1,000 mLs 1000 mL/hr spironolactone (ALDACTONE) tablet 25 mg 25 mg, Oral, DAILY, First dose (after last modification) on 03/23/24 at 0730, Hold for SBP <115 $Given 03/23/2024 8:21 AM CDT 25 mg documented in this encounter Active and Recently Administered Medications Times are shown in CDT. Scheduled Medication Order 03/21/2024 03/22/2024 03/23/2024 acetaminophen (TYLENOL) tablet 1,000 mg(Linked Group 1) 1,000 mg, Oral, 3 TIMES DAILY, First dose (after last modification) on Emiliana 03/20/24 at 2100, Alternate with ibuprofen if ordered. Maximum acetaminophen dose from all sources = 75 mg/kg/day not to exceed 4 gram 0833 ($Given - Provider: Birgit Lima RN)1324 ($Given - Provider: Birgit Lima RN)1941 ($Given - Provider: Milana Leyva RN) 0835 ($Given - Provider: Moriah Hernandez RN)1309 ($Given - Provider: Moriah Hernandez RN)1954 ($Given - Provider: Josué Zheng RN) 0821 ($Given - Provider: Moriah Hernandez RN)1400 (Canceled Entry - Provider: Orders Generic Provider - Comment: Automatically canceled at discontinue of medication order) apixaban ANTICOAGULANT (ELIQUIS) tablet 2.5 mg (CANCELED) 2.5 mg, Oral, 2 TIMES DAILY, First dose on 03/22/24 at 1130, Indications: DVT-PE Prophylaxis 1317 ($Given - Provider: Moriah Hernandez RN)2206 ($Given - Provider: Josué Zheng RN) ferrous sulfate (FEROSUL) tablet 325 mg 325 mg, Oral, 3 TIMES DAILY WITH MEALS, First dose on 03/23/24 at 0800 0821 ($Given - Provider: Moriah Hernanedz RN)1123 ($Given - Provider: Moriah Hernandez RN) gabapentin (NEURONTIN) capsule 100 mg 100 mg, Oral, 3 TIMES DAILY, First dose on Emiliana 03/20/24 at 2130 0833 ($Given - Provider: Birgit Lima RN)1323 ($Given - Provider: Birgit Lima RN)1941 ($Given - Provider: Milana Leyva RN) 0835 ($Given - Provider: Moriah Hernandez RN)1310 ($Given - Provider: Moriah Hernandez RN)1955 ($Given - Provider: Josué Zheng, RN) 0821 ($Given - Provider: Moriah Hernandez RN)1400 (Canceled Entry - Provider: Orders Generic Provider - Comment: Automatically canceled at discontinue of medication order) HYDROmorphone (DILAUDID) tablet 2 mg (CANCELED) 2 mg, Oral, EVERY 6 HOURS, First dose (after last modification) on [facility] 03/22/24 at 1700, Hold for sedation, RR <12 1648 ($Given - Provider: Moriah Hernandez RN)2206 ($Given - Provider: Josué Zheng, RN) 0648 ($Given - Provider: Josué Zheng, RN) HYDROmorphone (DILAUDID) tablet 2-4 mg 2-4 mg, Oral, EVERY 6 HOURS, First dose (after last modification) on [place] 03/23/24 at 1200, Give 4 mg for pain scale above 8/10 Hold for sedation, RR <12 1122 ($Given - Provider: Moriah Hernandez RN) HYDROmorphone (DILAUDID) tablet 4 mg (CANCELED) 4 mg, Oral, EVERY 6 HOURS, First dose on [facility] 03/22/24 at 1030, Hold for sedation, RR <12 1100 ($Given - Provider: Moriah Hernandez RN) magnesium oxide (MAG-OX) tablet 400 mg 400 mg, Oral, 3 TIMES DAILY, First dose on Emiliana 03/20/24 at 2130 0834 ($Given - Provider: Birgit Lima RN)1324 ($Given - Provider: Birgit Lima RN)1941 ($Given - Provider: Milana Leyva RN) 0835 ($Given - Provider: Moriah Hernandez RN)1310 ($Given - Provider: Moriah Hernandez RN)195 ($Given - Provider: Josué Zheng RN) 0821 ($Given - Provider: Moriah Hernandez RN)1400 (Canceled Entry - Provider: Orders Generic Provider - Comment: Automatically canceled at discontinue of medication order) methocarbamol (ROBAXIN) tablet 750 mg 750 mg, Oral, 3 TIMES DAILY, First dose on Emiliana 03/20/24 at 2100 0833 ($Given - Provider: Birgit Lima RN)1323 ($Given - Provider: Birgit Lima RN)1940 ($Given - Provider: Milana Leyva RN) 0835 ($Given - Provider: Moriah Hernandez RN)1310 ($Given - Provider: Moriah Hernandez RN)195 ($Given - Provider: Josué Zheng RN) 0821 ($Given - Provider: Moriah Hernandez RN)1400 (Canceled Entry - Provider: Orders Generic Provider - Comment: Automatically canceled at discontinue of medication order) potassium chloride deanne ER (KLOR-CON M20) CR tablet 100 mEq (CANCELED) 100 mEq, Oral, 3 TIMES DAILY, First dose (after last modification) on Sun03/22/24 at 1400, DO NOT CRUSH 1309 ($Given - Provider: Moriah Hernandez RN)1954 ($Given - Provider: Josué Zheng RN) 0820 ($Given - Provider: Moriah Hernandez RN) potassium chloride deanne ER (KLOR-CON M20) CR tablet 40 mEq (COMPLETED) 40 mEq, Oral, ONCE, On Sun03/21/24 at 0430, For 1 dose, Potassium level 2.7 - 3 mmol/L Ordered from the Potassium replacement order set. DO NOT CRUSH, Potassium Replacement: Potassium level 2.7-3 mmol/L, Recheck: Potassium level 4 hours AFTER last oral dose 0414 ($Given - Provider: Saundra Brandt RN) potassium chloride deanne ER (KLOR-CON M20) CR tablet 40 mEq (COMPLETED) 40 mEq, Oral, ONCE, On Sun03/21/24 at 0730, For 1 dose, Potassium level 2.7 - 3 mmol/L Ordered from the Potassium replacement order set. DO NOT CRUSH, Potassium Replacement: Potassium level 2.7-3 mmol/L, Recheck: Potassium level 4 hours AFTER last oral dose 0833 ($Given - Provider: Birgit Lima RN) potassium chloride deanne ER (KLOR-CON M20) CR tablet 80 mEq (CANCELED) 80 mEq, Oral, 2 TIMES DAILY, First dose on Emiliana 03/20/24 at 2130, DO NOT CRUSH 1123 ($Given - Provider: Birgit Lima RN) potassium chloride deanne ER (KLOR-CON M20) CR tablet 80 mEq (CANCELED) 80 mEq, Oral, 3 TIMES DAILY, First dose (after last modification) on Sun03/21/24 at 1500, DO NOT CRUSH 1647 ($Given - Provider: Irvin Zeng RN - Comment: system down)194 ($Given - Provider: Milana Leyva RN) 0835 ($Given - Provider: Moriah Hernandez, DEVIN) potassium chloride deanne ER (KLOR-CON M20) CR tablet 80 mEq 80 mEq, Oral, 3 TIMES DAILY, First dose (after last modification) on Sun03/23/24 at 1400, DO NOT CRUSH 1400 (Canceled Entry - Provider: Orders Generic Provider - Comment: Automatically canceled at discontinue of medication order) spironolactone (ALDACTONE) tablet 25 mg 25 mg, Oral, DAILY, First dose (after last modification) on Sun03/23/24 at 0730, Hold for SBP <115 0821 ($Given - Provider: Moriah Hernandez, DEVIN) Continuous Medication Order 03/21/2024 03/22/2024 03/23/2024 0.9% sodium chloride + KCl 20 mEq/L infusion (CANCELED) at 100 mL/hr, Intravenous, CONTINUOUS, Starting on Sun03/21/24 at 0800, Until 03/22/24 at 1152 0838 ($New Bag - Provider: Birgit Lima RN)1300 (Rate/Dose Change - Provider: Birgit Lima RN)1940 ($New Bag - Provider: Milana Leyva RN) 0049 (Rate/Dose Verify - Provider: Sun Mccullough RN)0555 ($New Bag - Provider: Sun Mccullough RN) sodium chloride 0.9 % infusion (CANCELED) at 100 mL/hr, Intravenous, CONTINUOUS, Starting on Emiliana 03/20/24 at 2030, Until Sun03/21/24 at 0730 0705 ($New Bag - Provider: Saundra Brandt RN)1019 (Stopped - Provider: Birgit Lima RN) PRN Medication Order 03/21/2024 03/22/2024 03/23/2024 HYDROmorphone (DILAUDID) tablet 2 mg 2 mg, Oral, EVERY 3 HOURS PRN, moderate pain, severe pain, Starting on Sun03/22/24 at 1000 0246 ($Given - Provider: Josué Zheng RN)0827 ($Given - Provider: Moriah Hernandez RN) HYDROmorphone (PF) (DILAUDID) injection 0.3 mg (CANCELED) 0.3 mg, Intravenous, EVERY 3 HOURS PRN, severe pain, Starting on Emiliana 03/20/24 at 2113 0110 ($Given - Provider: Saundra Brandt RN)0404 ($Given - Provider: Saundra Brandt RN)0705 ($Given - Provider: Saundra Brandt RN)1018 ($Given - Provider: Birgit Lima RN)1322 ($Given - Provider: Birgit Lima RN) HYDROmorphone (PF) (DILAUDID) injection 0.5 mg (COMPLETED) 0.5 mg, Intravenous, EVERY 3 HOURS PRN, severe pain, Starting on Sun03/21/24 at 1452, For 6 doses, Please give 0.5 mg now @ 1450 on 03/21/2024 1630 ($Given - Provider: Irvin Zeng RN)1941 ($Given - Provider: Milana Leyva RN)2248 ($Given - Provider: Milana Leyva RN) 0150 ($Given - Provider: Sun Mccullough RN)0510 ($Given - Provider: Sun Mccullough RN)0852 ($Given - Provider: Moriah Hernandez RN) HYDROmorphone (PF) (DILAUDID) injection 0.5 mg 0.5 mg, Intravenous, 3 TIMES DAILY PRN, severe pain, Starting on 03/22/24 at 0959, On hold since 03/23/2024 at 0717 until manually unheld 1316 ($Given - Provider: Moriah Hernandez RN)1859 ($Given - Provider: Moriah Hernandez RN)2329 ($Given - Provider: Josué Zheng RN) 0410 ($Given - Provider: Josué Zheng RN)0717 (Held by provider - Provider: Mireya Franz PA-C - Reason: Other)1451 (Unheld by provider - Provider: Orders Generic Provider) hydrOXYzine HCl (ATARAX) tablet 25 mg 25 mg, Oral, EVERY 6 HOURS PRN, other, adjuvant pain, Starting on Emiliana 03/20/24 at 2034, Start with 25 mg for the initial dose. If the 25 mg dose is ineffective, increase to the 50 mg dose at the next administration time and maintain further doses at 50 mg. If the 50 mg dose is ineffective, contact the provider. 0100 ($Given - Provider: Sun Mccullough RN)0852 ($Given - Provider: Moriah Hernandez RN)2211 ($Given - Provider: Josué Zheng RN) naloxone (NARCAN) injection 0.2 mg(Linked Group 2) 0.2 mg, Intravenous, EVERY 2 MIN PRN, opioid reversal, Starting on Emiliana 03/20/24 at 2037, Administer intravenous route when available and notify provider when administered. For unintended sedation or respiratory depression if all of the below criteria are met: ~ respiratory rate LESS than or EQUAL to 8. ~SaO2 less than 92% and or/end-tidal CO2 is greater than 50. ~ the patient is receiving an opioid, has unintended sedations assessed as RASS (-3), and is currently not on mechanical ventilation. RASS scale moderate (-3) is movement or eye opening to voice but no eye contact. Patient Monitoring Once the patient has demonstrated a response to the naloxone, continue to monitor respiratory rate, depth, oxygen saturation and end-tidal CO2 (if available) every 15 minutes x 2, then every 30 minutes x 2, then every 1 hour x 1 after each naloxone dose. Consider transfer to ICU if patient respiratory parameters have not improved after 4 naloxone doses. naloxone (NARCAN) injection 0.2 mg(Linked Group 2) 0.2 mg, Intramuscular, EVERY 2 MIN PRN, opioid reversal, Starting on Emiliana 03/20/24 at 2037, Administer intramuscular if an intravenous route is not available and notify provider when administered. For unintended sedation or respiratory depression if all of the below criteria are met: ~ respiratory rate LESS than or EQUAL to 8. ~SaO2 less than 92% and or/end-tidal CO2 is greater than 50. ~ the patient is receiving an opioid, has unintended sedations assessed as RASS (-3), and is currently not on mechanical ventilation. RASS scale moderate (-3) is movement or eye opening to voice but no eye contact. Patient Monitoring Once the patient has demonstrated a response to the naloxone, continue to monitor respiratory rate, depth, oxygen saturation and end-tidal CO2 (if available) every 15 minutes x 2, then every 30 minutes x 2, then every 1 hour x 1 after each naloxone dose. Consider transfer to ICU if patient respiratory parameters have not improved after 4 naloxone doses. naloxone (NARCAN) injection 0.4 mg(Linked Group 2) 0.4 mg, Intravenous, EVERY 2 MIN PRN, opioid reversal, Starting on Emiliana 03/20/24 at 2037, Administer intravenous route when available and notify provider when administered. For unintended sedation or respiratory depression if all of the below criteria are met: ~ respiratory rate LESS than or EQUAL to 8. ~ SaO2 less than 92% and or/end-tidal CO2 is greater than 50. ~ the patient is receiving an opioid, has unintended sedation assessed as RASS (-4) or (-5) and patient is currently not on mechanical ventilation. RASS scale (-4) is deep sedation with no response to voice but movement or eye opening to physical stimulation. RASS scale (-5) is unarousable. Patient Monitoring Once the patient has demonstrated a response to the naloxone, continue to monitor respiratory rate, depth, oxygen saturation and end-tidal CO2 (if available) every 15 minutes x 2, then every 30 minutes x 2, then every 1 hour x 1 after each naloxone dose. Consider transfer to ICU if patient respiratory parameters have not improved after 4 naloxone doses. naloxone (NARCAN) injection 0.4 mg(Linked Group 2) 0.4 mg, Intramuscular, EVERY 2 MIN PRN, opioid reversal, Starting on Emiliana 03/20/24 at 2037, Administer intramuscular if an intravenous route is not available and notify provider when administered. For unintended sedation or respiratory depression if all of the below criteria are met: ~ respiratory rate LESS than or EQUAL to 8. ~ SaO2 less than 92% and or/end-tidal CO2 is greater than 50. ~ the patient is receiving an opioid, has unintended sedation assessed as RASS (-4) or (-5) and patient is currently not on mechanical ventilation. RASS scale (-4) is deep sedation with no response to voice but movement or eye opening to physical stimulation. RASS scale (-5) is unarousable. Patient Monitoring Once the patient has demonstrated a response to the naloxone, continue to monitor respiratory rate, depth, oxygen saturation and end-tidal CO2 (if available) every 15 minutes x 2, then every 30 minutes x 2, then every 1 hour x 1 after each naloxone dose. Consider transfer to ICU if patient respiratory parameters have not improved after 4 naloxone doses. ondansetron (ZOFRAN ODT) ODT tab 4 mg(Linked Group 3) 4 mg, Oral, EVERY 6 HOURS PRN, nausea, vomiting, Starting on Emiliana 03/20/24 at 2022, This is Step 1 of nausea and vomiting management. If nausea not resolved in 15 minutes, go to Step 2 prochlorperazine (COMPAZINE). With dry hands, peel back foil backing and gently remove tablet. Do not push oral disintegrating tablet through foil backing. Administer immediately on tongue and oral disintegrating tablet dissolves in seconds, then swallow with saliva. Liquid not required. ondansetron (ZOFRAN) injection 4 mg(Linked Group 3) 4 mg, Intravenous, EVERY 6 HOURS PRN, nausea, vomiting, Administer over 2-5 Minutes, Starting on Emiliana 03/20/24 at 2022, Give IF patient unable to tolerate oral medication. This is Step 1 of nausea and vomiting management. If nausea not resolved in 15 minutes, go to Step 2 prochlorperazine (COMPAZINE). senna-docusate (SENOKOT-S/PERICOLACE) 8.6-50 MG per tablet 1 tablet(Linked Group 4) 1 tablet, Oral, 2 TIMES DAILY PRN, constipation, Starting on Sun03/20/24 at 2022, If no bowel movement in 24 hours, increase to 2 tablets by mouth. IF more than 1 constipation PRN medication is ordered, administer step-aguilar as indicated, moving to the next step ONLY if prior step ineffective. Step 1: senna-docusate (SENOKOT-S; PERICOLACE) OR bisacodyl (DULCOLAX) EC tablet Step 2: polyethylene glycol (MIRALAX/GLYCOLAX) Step 3: bisacodyl (DULCOLAX) suppository Step 4: enema Hold for loose stools. senna-docusate (SENOKOT-S/PERICOLACE) 8.6-50 MG per tablet 2 tablet(Linked Group 4) 2 tablet, Oral, 2 TIMES DAILY PRN, constipation, Starting on Sun03/20/24 at 2022, IF more than 1 constipation PRN medication is ordered, administer step-aguilar as indicated, moving to the next step ONLY if prior step ineffective. Step 1: senna-docusate (SENOKOT-S; PERICOLACE) OR bisacodyl (DULCOLAX) EC tablet Step 2: polyethylene glycol (MIRALAX/GLYCOLAX) Step 3: bisacodyl (DULCOLAX) suppository Step 4: enema Hold for loose stools. Linked Groups Order Group 1: acetaminophen (TYLENOL) tablet 1,000 mgJump to med 1,000 mg, Oral, 3 TIMES DAILY, First dose (after last modification) on Sun03/20/24 at 2100, Alternate with ibuprofen if ordered. Maximum acetaminophen dose from all sources = 75 mg/kg/day not to exceed 4 gram Group 2: naloxone (NARCAN) injection 0.2 mgJump to med 0.2 mg, Intravenous, EVERY 2 MIN PRN, opioid reversal, Starting on Sun03/20/24 at 2037, Administer intravenous route when available and notify provider when administered. For unintended sedation or respiratory depression if all of the below criteria are met: ~ respiratory rate LESS than or EQUAL to 8. ~SaO2 less than 92% and or/end-tidal CO2 is greater than 50. ~ the patient is receiving an opioid, has unintended sedations assessed as RASS (-3), and is currently not on mechanical ventilation. RASS scale moderate (-3) is movement or eye opening to voice but no eye contact. Patient Monitoring Once the patient has demonstrated a response to the naloxone, continue to monitor respiratory rate, depth, oxygen saturation and end-tidal CO2 (if available) every 15 minutes x 2, then every 30 minutes x 2, then every 1 hour x 1 after each naloxone dose. Consider transfer to ICU if patient respiratory parameters have not improved after 4 naloxone doses. Or naloxone (NARCAN) injection 0.4 mgJump to med 0.4 mg, Intravenous, EVERY 2 MIN PRN, opioid reversal, Starting on Emiliana 03/20/24 at 2037, Administer intravenous route when available and notify provider when administered. For unintended sedation or respiratory depression if all of the below criteria are met: ~ respiratory rate LESS than or EQUAL to 8. ~ SaO2 less than 92% and or/end-tidal CO2 is greater than 50. ~ the patient is receiving an opioid, has unintended sedation assessed as RASS (-4) or (-5) and patient is currently not on mechanical ventilation. RASS scale (-4) is deep sedation with no response to voice but movement or eye opening to physical stimulation. RASS scale (-5) is unarousable. Patient Monitoring Once the patient has demonstrated a response to the naloxone, continue to monitor respiratory rate, depth, oxygen saturation and end-tidal CO2 (if available) every 15 minutes x 2, then every 30 minutes x 2, then every 1 hour x 1 after each naloxone dose. Consider transfer to ICU if patient respiratory parameters have not improved after 4 naloxone doses. Or naloxone (NARCAN) injection 0.2 mgJump to med 0.2 mg, Intramuscular, EVERY 2 MIN PRN, opioid reversal, Starting on Em[place] 03/20/24 at 2037, Administer intramuscular if an intravenous route is not available and notify provider when administered. For unintended sedation or respiratory depression if all of the below criteria are met: ~ respiratory rate LESS than or EQUAL to 8. ~SaO2 less than 92% and or/end-tidal CO2 is greater than 50. ~ the patient is receiving an opioid, has unintended sedations assessed as RASS (-3), and is currently not on mechanical ventilation. RASS scale moderate (-3) is movement or eye opening to voice but no eye contact. Patient Monitoring Once the patient has demonstrated a response to the naloxone, continue to monitor respiratory rate, depth, oxygen saturation and end-tidal CO2 (if available) every 15 minutes x 2, then every 30 minutes x 2, then every 1 hour x 1 after each naloxone dose. Consider transfer to ICU if patient respiratory parameters have not improved after 4 naloxone doses. Or naloxone (NARCAN) injection 0.4 mgJump to med 0.4 mg, Intramuscular, EVERY 2 MIN PRN, opioid reversal, Starting on Em[place] 03/20/24 at 2037, Administer intramuscular if an intravenous route is not available and notify provider when administered. For unintended sedation or respiratory depression if all of the below criteria are met: ~ respiratory rate LESS than or EQUAL to 8. ~ SaO2 less than 92% and or/end-tidal CO2 is greater than 50. ~ the patient is receiving an opioid, has unintended sedation assessed as RASS (-4) or (-5) and patient is currently not on mechanical ventilation. RASS scale (-4) is deep sedation with no response to voice but movement or eye opening to physical stimulation. RASS scale (-5) is unarousable. Patient Monitoring Once the patient has demonstrated a response to the naloxone, continue to monitor respiratory rate, depth, oxygen saturation and end-tidal CO2 (if available) every 15 minutes x 2, then every 30 minutes x 2, then every 1 hour x 1 after each naloxone dose. Consider transfer to ICU if patient respiratory parameters have not improved after 4 naloxone doses. Group 3: ondansetron (ZOFRAN ODT) ODT tab 4 mgJump to med 4 mg, Oral, EVERY 6 HOURS PRN, nausea, vomiting, Starting on [facility] 03/20/24 at 2022, This is Step 1 of nausea and vomiting management. If nausea not resolved in 15 minutes, go to Step 2 prochlorperazine (COMPAZINE). With dry hands, peel back foil backing and gently remove tablet. Do not push oral disintegrating tablet through foil backing. Administer immediately on tongue and oral disintegrating tablet dissolves in seconds, then swallow with saliva. Liquid not required. Or ondansetron (ZOFRAN) injection 4 mgJump to med 4 mg, Intravenous, EVERY 6 HOURS PRN, nausea, vomiting, Administer over 2-5 Minutes, Starting on Emiliana 03/20/24 at 2022, Give IF patient unable to tolerate oral medication. This is Step 1 of nausea and vomiting management. If nausea not resolved in 15 minutes, go to Step 2 prochlorperazine (COMPAZINE). Group 4: senna-docusate (SENOKOT-S/PERICOLACE) 8.6-50 MG per tablet 1 tabletJump to med 1 tablet, Oral, 2 TIMES DAILY PRN, constipation, Starting on [facility] 03/20/24 at 2022, If no bowel movement in 24 hours, increase to 2 tablets by mouth. IF more than 1 constipation PRN medication is ordered, administer step-aguilar as indicated, moving to the next step ONLY if prior step ineffective. Step 1: senna-docusate (SENOKOT-S; PERICOLACE) OR bisacodyl (DULCOLAX) EC tablet Step 2: polyethylene glycol (MIRALAX/GLYCOLAX) Step 3: bisacodyl (DULCOLAX) suppository Step 4: enema Hold for loose stools. Or senna-docusate (SENOKOT-S/PERICOLACE) 8.6-50 MG per tablet 2 tabletJump to med 2 tablet, Oral, 2 TIMES DAILY PRN, constipation, Starting on [facility] 03/20/24 at 2022, IF more than 1 constipation PRN medication is ordered, administer step-aguilar as indicated, moving to the next step ONLY if prior step ineffective. Step 1: senna-docusate (SENOKOT-S; PERICOLACE) OR bisacodyl (DULCOLAX) EC tablet Step 2: polyethylene glycol (MIRALAX/GLYCOLAX) Step 3: bisacodyl (DULCOLAX) suppository Step 4: enema Hold for loose stools. documented in this encounter Care Teams Pipefitter Helper Relationship Specialty [place] [id number] [place] [address] PCP - General 03/07/24 documented as of this encounter
--- OUTSIDE RECORDS SUMMARY | 2024-04-09 16:53 | XMS_ITS | Encounter Summary ---
Author Organization [place] Address [facility] [place] [address] Care Team Providers Care Security Guard Dispatcher Name Role Phone Gregg Corrales MD Primary Care Provider Encounter Details Date Type Department Care Team (Latest Contact Info) Description 04/02/2024 Travel Social History Tobacco Use Types Packs/Day Years [...] Date Recorded Do you have housing? (Felice g is defined as stable permanent housing and does not include staying ouside in a car, in a tent, in an abandoned building, in an overnight correction, or couch-surfing.) Yes 04/02/2024 Are you worried [...] on filedocumented in this encounter Care Teams Security Guard Dispatcher Relationship Specialty Start [place] [id number] [place] [address] PCP - General 03/07/24 documented as of this encounter
--- OUTSIDE RECORDS SUMMARY | 2024-04-09 16:53 | XMS_ITS | Referral Summary ---
Author Organization [place] Address [address] [place] [address] Care Team Providers Care Wallboard Worker Name Role Phone Gregg Corrales MD Primary Care Provider Encounters Date Type Department Care Team Description 04/02/2024 1:27 PM CDT - 04/04/2024 9:52 AM CDT Hospital Encounter [facility] [address] [place] [address] Amy Lott MD Ricklefs, Kendall D, DO Hypokalemia; BARBARA (acute kidney injury) (H); Chronic pain in female pelvis Discharge Disposition: Left Against Medical Advice 04/02/2024 Travel 03/25/2024 Telephone [facility] [address] 5th [place] [address] Tabitha Thomas MD Clinic Care Coordination - Initial 03/20/2024 3:15 PM CDT - 03/23/2024 12:50 PM CDT Hospital Encounter [facility] [address] [place] [address] Michael Ruiz DO Young, Jean Tsai, MD [...] - 03/12/2024 2:06 PM CDT Hospital Encounter [place] [address] [facility] [address] [place] [address] Ezequiel Valladares MD Khan, Raza A, MD Chronic midline low back pain without sciatica (Primary Dx); BARBARA (acute kidney injury) (H); Gitelman syndrome; Hypercalcemia; Closed fracture of single ramus of right pubis, with delayed healing, subsequent encounter; Acute bilateral low back pain without sciatica Discharge Disposition: Home or Self Care 03/06/2024 Travel from Last 3 Months Allergies Active Allergy Reactions Criticality Noted Date [...] Acute kidney injury 01/31/2023 Metabolic alkalosis 11/04/2022 [id number] kidney injury 11/04/2022 Myalgia, multiple sites 07/29/2022 [...] Date Resolved Date Leg pain 07/06/2010 07/06/2010 Social History Tobacco Use Types Packs/Day Years [...] in an abandoned building, in an overnight fci, or couch-surfing.) Yes 04/02/2024 Are you worried [...] 04/02/2024 5:42 PM CDT Plan of Treatment Not on file Procedures Procedure Name Priority Date/Time Associated Diagnosis [...] LAB - BLOOD ORDERABL ES RH LABORATORY [facility] [address] [facility] Lab (1st floor, no room number) [place] [address], [facility] * Magnesium (04/04/2024 4:56 AM CDT) Only the most recent of8 resultswithin the time period is included. Magnesium 2.1 1.7 - 2.3 mg/dL 04/04/2024 10:46 AM CDT [facility] LABORATORY Blood BLOOD SPECIMEN / Unknown Venipuncture / Unknown 04/04/2024 4:56 AM CDT 04/04/2024 5:26 AM CDT Neal Melara MD LAB - BLOOD ORDERABL ES Performing Organization Address City/[facility]/ZIP Co de Phone Number [facility] [address] Lab (1st floor, no room number) [address] * Iron and iron binding capacity (04/04/2024 [...] - BLOOD ORDERABL ES Performing Organization Address [facility]/ZIP Co de Phone Number [facility] [address] Lab (1st floor, no room number) [address] * Ferritin (04/04/2024 4:56 AM CDT) Ferritin 19 6 - 175 ng/mL 04/04/2024 2:10 PM CDT [facility] Blood BLOOD SPECIMEN / Unknown Venipuncture / Unknown 04/04/2024 4:56 AM CDT 04/04/2024 5:26 AM CDT Mike Teran MD LAB - BLOOD ORDERABL ES [facility] LABORATORY [facility] [place] [facility] [address] [facility], [address] [place] [address], [facility] * (ABNORMAL) Basic metabolic panel (04/04/2024 4:56 [...] 04/04/2024 5:53 AM CDT LABORATORY Comment:eGFR calculated usin 2020 CKD-EPI equation. Calcium 10.1 8.8 - 10.4 [...] MD LAB - BLOOD ORDERABL ES LABORATORY [facility] [address] Lab (1st floor, no room number) [place] [address] * Potassium (04/03/2024 7:55 PM CDT) Only the most recent of9 resultswithin the time period is included. Potassium 3.7 3.4 - 5.3 mmol/L 04/03/2024 8:17 PM CDT RH LABORATORY Blood STRUCTURE OF LEFT HAND / Unknown Venipuncture / Unknown 04/03/2024 7:55 PM CDT 04/03/2024 7:59 PM CDT Neal Melara MD LAB - BLOOD ORDERABL ES LABORATORY [facility] [address] Lab (1st floor, no room number) [place] [address] * (ABNORMAL) CBC with platelets (04/03/2024 7:05 [...] Allan DO LAB - BLOOD ORDERA BLES LABORATORY [facility] [address] Lab (1st floor, no room number) [place] [address] * Asymptomatic Influenza A/B, RSV, & SARS-CoV2 PCR (COVID-19) Nose (04/02/2024 6:04 PM CDT) Pathologist [facility] Influenza A PCR Negative Negative 04/02/2024 7:06 [...] 6:04 PM CDT 04/02/2024 6:18 PM CDT Narrative LABORATORY - 04/02/2024 7:06 PM CDT Testing was performed using the Xpert Xpress CoV2/Flu/RSV Assay on the [employer] GeneXpert Instrument. This test should be ordered [...] management. This test was validated by the [facility]. These laboratories are certified under the Clinical Laboratory Improvement Amendments of 1988 (CLIA-88) as qualified to perfom high complexity laboratory testing. Edgar Allan DO LAB - MICRO GENERA L ORDERABLES LABORATORY [facility] [address] Lab (1st floor, no room number) [place] [address] * EKG 12 lead (04/02/2024 3:29 PM CDT) Only the most recent of4 resultswithin the time period is included. Systolic Blood Pressure mmHg RADIOLOGY RESULTS Diastolic Blood Pressure mmHg RADIOLOGY RESULTS Ventricular Rate 76 BPM RAD IOLOGY RESULTS Atrial Rate 76 BPM RADIOLOG Y RESULTS VT Interval 136 ms RADIOLOG Y RESULTS QRS Duration 90 ms RADIOLO GY RESULTS QT 568 ms RADIOLOGY RESULTS QTc 639 ms RADIOLOGY RESULTS P Lasara 64 degrees RADIOLOGY RESULTS R AXIS 86 degrees RADIOLOGY RESULTS T Lasara 88 degrees RADIOLOGY RESULTS Interpretation ECG Sinus [...] Confirmed by - EMERGENCY ROOM, PHYSICIAN ([id number]), dictionary editor Kirill Montero ([id number]) on 04/02/2024 3:42:03 PM RADIOLOGY RESULTS 04/02/2024 3:29 PM CDT 04/02/2024 3:42 PM CDT Amy Lott MD ECG ORDERABLES RADIOLOGY RESULTS * TSH with free T4 reflex (04/02/2024 1:42 PM CDT) TSH 1.74 0.30 - 4.20 uIU/mL 04/02/2024 2:21 PM CDT LABORATORY Blood BLOOD SPECIMEN / Unknown Venipuncture / Unknown 04/02/2024 1:42 PM CDT 04/02/2024 1:50 PM CDT Amy Lott MD LAB - BLOOD [place] [facility] Lab [address] Lab (1st floor, no room number) [place] [address] * Diuretic Screen, Urine (03/21/2024 1:29 PM CDT) [facility] Diuretic Screen Urine NEGATIVE 05/2024 10:41 AM CDT [facility] Comment: Performed by: [facility] [address] [place] [id number] Liz Guardado Benzthiazide NEGATIVE 04/05/2024 10:41 AM CDT [facility] Comment: Performed by: [facility] [address] [place] [id number] Liz Guardado Bumetanide NEGATIVE 04/05/2024 10:41 AM CDT [facility] Comment: Performed by: [facility] [address] [place] [id number] Liz Guardado Chlorothiazide NEGATIVE 04/05/2024 10:41 AM CDT [facility] Comment: Performed by: [facility] [address] [place] [id number] Liz Guardado Chlorthalidone NEGATIVE 04/05/2024 10:41 AM CDT [facility] Comment: Performed by: [facility] [address] [place] [id number] Liz Guardado Furosemide NEGATIVE 04/05/2024 10:41 AM CDT [facility] Comment: Performed by: [facility] [address] [place] [id number] Liz Guardado Hydrochlorothiazide NEGATIVE 04/05 10:41 AM CDT [facility] Comment: Performed by: [facility] [address] [place] [id number] Liz Guardado Hydroxyflumethiazide NEGATIVE 03/25 10:41 AM CDT [facility] Comment: Performed by: [facility] [address] [place] [id number] Liz Guardado Metolazone NEGATIVE 04/05/2024 10:41 AM CDT [facility] Comment: Qualitative diuretic screen includes: benzthiazide, bumetanide, chlorothiazide, chlorthalidone, furosemide, hydrochlorothiazide, hydroflumethiazide, and metolazone. ?? This test was developed and its performance characteristics determined by [facility]. It has not been cleared or approved by the Food and Drug Administration. Performed by: [facility] [address] [place] [id number] Liz Guardado Urine URINE SPECIMEN OBTAINED BY CLEAN CATCH PROCEDURE / Unknown Non-blood Collection / Unknown 03/21/2024 1:29 PM CDT 03/21/2024 1:37 PM CDT Charles Bender MD LAB - URINE ORDERABL ES [employer] [address] [place] [address], [facility] [phone] * (ABNORMAL) Urine Drug Screen Panel (03/21/2024 1:29 PM CDT) [facility] Amphetamines Urine Screen Negative Screen Negative 03/21/2024 [...] Positive(A) Screen Negative 03/21/2024 2:02 PM CDT LABORATORY Comment: Cutoff for a positive opiate is 300 ng/mL or greater. This is an unconfirmed screening result to be used for medical purposes only. PCP Urine Screen Negative Screen Negative 03/21/2024 2:02 PM CDT LABORATORY Comment:Cutoff for a negativ e PCP is less than 25 ng/mL. Urine MID-STREAM URINE SPECIMEN / Unknown Non-blood Collection / Unknown 03/21/2024 1:29 PM CDT 03/21/2024 1:34 PM CDT Charles Bender MD LAB - URINE ORDERABL ES Performing Organization Address [facility]/ZIP Co de Phone Number [facility] [address] Lab (1st floor, no room number) [address] [place] [address] * Parathyroid Hormone Intact (03/21/2024 6:35 AM [...] differs from PTH assays used in other [facility]. Charles Bender MD LAB - BLOOD ORDERABL ES Performing Organization Address City/[facility]/ZIP Co de Phone Number [facility] [address] Lab (1st floor, no room number) [place] [phone] * Ionized Calcium (03/21/2024 6:35 AM CDT) Only the most recent of3 resultswithin the time period is included. Calcium Ionized Whole Blood 4.7 4.4 - 5.2 mg/dL 03/21/2024 6:46 AM CDT LABORATORY Blood STRUCTURE OF LEFT HAND / Unknown Venipuncture / Unknown 03/21/2024 6:35 AM CDT 03/21/2024 6:45 AM CDT Charles Bender MD LAB - BLOOD ORDERABL ES LABORATORY [facility] [address] Lab (1st floor, no room number) [place] [address] * XR Pelvis w Hip Right 1 [...] PELVIS AND HIP RIGHT 1 VIEW LOCATION: [facility] DATE: 03/20/2024 INDICATION: Fall, Right hip pain, recent right pubic ramus fracture COMPARISON: 02/15/2024. Procedure Note Sean Villareal MD - 03/20/2024 EXAM: XR PELVIS AND HIP RIGHT 1 VIEW LOCATION: [facility] DATE: 03/20/2024 INDICATION: Fall, Right hip pain, recent right pubic ramus fracture COMPARISON: 02/15/2024. IMPRESSION: Mildly comminuted nondisplaced fractures of the right inferiorpubic ramus. No additional fracture. The pubic symphysis and SI joints areintact. Hip joints are normally aligned, joint spacing is maintained. Michael Yemustapha DO IMG DIAGNOSTIC IMAGI NG ORDERABLES * Calcium timed urine (03/12/2024 12:15 PM CDT) Calcium Urine mg/dL 10.4 mg/dL 03/12/2024 9:35 PM CDT [facility] Comment:The reference ranges have not been established in urine calcium. The results should be integrated into the clinical context for interpretation. Duration in hours 24.0 h RUKHSANA 03/12/2024 9:35 PM CDT RH LABORATORY Volume in mL 1,800 mL RUKHSANA [...] LAB - URINE ORDERABL ES UU LABORATORY [facility] Core Lab [address] [facility], [address] [place] [address] LABORATORY [facility] [address] [facility] Lab (1st floor, no room number) [place] [address] * Potassium timed urine (03/12/2024 12:14 PM CDT) Potassium Urine 66.2 mmol/L 9:21 PM CDT [facility] Comment:The reference ranges have not been established in urine potassium. The results should be integrated into the clinical context for interpretation. Duration in hours 24.0 h RUKHSANA 03/12/2024 9:21 PM CDT LABORATORY Volume in mL 1,800 mL [facility] 03/12/2024 9:21 PM CDT RH LABORATORY Potassium Urine mmol/spec 119 25 - 125 mmol/spec 03/12/2024 9:21 PM CDT [facility] LAB[facility] Urine URINE SPECIMEN OBTAINED BY CLEAN CATCH PROCEDURE / Unknown Non-blood Collection / Unknown 03/12/2024 12:14 PM CDT 03/12/2024 12:29 PM CDT Jose Eduardo Jaeger DO LAB - URINE ORDERABL ES UU LABORATORY [facility] [place] [facility] Lab [address], [address] [place] [address] LABORATORY [facility] [address] Lab (1st floor, no room number) [place] [address] * (ABNORMAL) Phosphorus timed urine (03/12/2024 12:14 PM CDT) Phosphorous Urine mg/dL 25.1(L) 40.0 - 136.0 mg/dL 03/12/2024 9:30 PM CDT [facility] LAB[facility]ORY Phosphorus Urine g/spec 0.45 0.40 - 1.30 g/spec 03/12/2024 9:30 PM CDT [facility] LAB[facility] Duration in hours 24.0 h RUKHSANA 03/12/2024 9:30 PM CDT LABORATORY Volume in mL 1,800 mL [facility] 03/12/2024 9:30 PM CDT LABORATORY Urine URINE SPECIMEN OBTAINED BY CLEAN CATCH PROCEDURE / Unknown Non-blood Collection / Unknown 03/12/2024 12:14 PM CDT 03/12/2024 12:29 PM CDT Jose Eduardo Jaeger DO LAB - URINE ORDERABL ES UU LABORATORY [facility] [place] [facility] [address], [address] [place] [address] LABORATORY [facility] [address] Lab (1st floor, no room number) [place] [address] * Sodium timed urine (03/12/2024 12:13 PM CDT) Sodium Urine mmol/L 79 mmol/L 03/12/2024 1:56 PM CDT LABORATORY Comment:The reference ranges have not been established in urine sodium. The results should be integrated into the clinical context for interpretation. Sodium Urine mmol/spec 142 40 - 220 mmol/spec 03/12/2024 1:56 PM CDT RH LABORATORY Duration in hours 24.0 h [facility] 03/12/2024 1:56 PM CDT RH LABORATORY Volume in mL 1,800 mL [facility] 03/12/2024 1:56 PM CDT LABORATORY Urine URINE SPECIMEN OBTAINED BY CLEAN CATCH PROCEDURE / Unknown Non-blood Collection / Unknown 03/12/2024 12:13 PM CDT 03/12/2024 12:29 PM CDT Jose Eduardo Jaeger DO LAB - URINE ORDERABL ES LABORATORY [facility] [address] [facility] Lab (1st floor, no room number) [place] [address], [facility] * (ABNORMAL) Creatinine Clearance, Urine (03/12/2024 12:09 PM CDT) Height in cm 149 cm [facility] 03/12/2024 4:43 PM CDT LABORATORY Weight in kg 48.0 kg [facility] 03/12/2024 4:43 PM CDT LABORATORY Creatinine 1.68(H) 0.51 - 0.95 mg/dL 03/12/2024 4:43 PM CDT LABORATORY Raw Clearance 35(L) 66 - 143 mL/min 03/12/2024 4:43 PM CDT LABORATORY Standard Clearance 43(L) 100 - 160 mL/min/1.7 m2 03/12/2024 4:43 PM CDT LABORATORY Volume in mL 1,800 mL [facility] 03/12/2024 4:43 PM CDT LABORATORY Duration in hours 24.0 h [facility] 03/12/2024 4:43 PM CDT LABORATORY Creatinine Urine mg/dL 46.6 mg/dL 03/12/2024 4:43 PM CDT LABORATORY Creatinine Urine Timed g/spec 0.84 0.72 - 1.51 g/spec 03/12/2024 4:43 PM CDT LABORATORY Urine URINE SPECIMEN OBTAINED BY CLEAN CATCH PROCEDURE / Unknown Non-blood Collection / Unknown 03/12/2024 12:09 PM CDT 03/12/2024 12:29 PM CDT Jose Eduardo Jaeger DO LAB - URINE ORDERABL ES LABORATORY [facility] [address] Lab (1st floor, no room number) [place] [phone] * Extra Purple Top Tube (03/12/2024 7:22 AM CDT) Hold Specimen [facility] 03/12/2024 8:31 AM CDT LABORATORY Blood TOPOGRAPHY UNKNOWN / Unknown Venipuncture / Unknown 03/12/2024 7:22 AM CDT 03/12/2024 7:22 AM CDT Brendan Dominguez MD LAB - BLOOD ORDERABL ES Performing Organization Address City/[facility]/ZIP Co de Phone Number LABORATORY [facility] [address] Lab (1st floor, no room number) [place] [phone] * (ABNORMAL) Renal panel (03/11/2024 10:12 AM [...] - 10.4 mg/dL 03/11/2024 10:45 AM CDT RH LABORATORY Comment:Reference intervals for this [...] CDT 03/11/2024 10:19 AM CDT Jose Eduardo Jaeger DO LAB - BLOOD ORDERABL ES RH LABORATORY [facility] [address] Lab (1st floor, no room number) [place] [address] * (ABNORMAL) Cystatin C with GFR (03/10/2024 [...] equation which includes age and gender (Brandon mandujano al., NEJM, DOI: 10.1056/NNAVsk8152462) Jose Eduardo Jaeger DO LAB - BLOOD ORDERABL ES U[facility] LABORATORY [facility] [place] [facility] [address], [address] [place] [address], [facility] * Albumin level (03/10/2024 6:48 AM CDT) Albumin 4.4 3.5 - 5.2 g/dL 03/10/2024 12:56 PM CDT RH LABORATORY Blood STRUCTURE OF RIGHT HAND / Unknown Venipuncture / Unknown 03/10/2024 6:48 AM CDT 03/10/2024 6:53 AM CDT Jose Eduardo Jaeger DO LAB - BLOOD ORDERABL ES Performing Organization Address City/[facility]/ZIP Co de Phone Number LABORATORY [facility] [address] Lab (1st floor, no room number) [place] [address] * Phosphorus (03/07/2024 8:46 AM CDT) Only the most recent of2 resultswithin the time period is included. Phosphorus 2.6 2.5 - 4.5 mg/dL 03/07/2024 9:22 AM CDT LABORATORY Blood STRUCTURE OF LEFT HAND / Unknown Venipuncture / Unknown 03/07/2024 8:46 AM CDT 03/07/2024 8:58 AM CDT Sean Freeman MD LAB - BLOOD ORD ERABLES [facility] Lab [address] Lab (1st floor, no room number) [place] [address], [facility] * Folate (03/07/2024 8:46 AM CDT) Folic Acid 15.4 4.6 - 34.8 ng/mL 03/07/2024 2:48 PM CDT [facility] LAB[facility]ATORY Blood STRUCTURE OF LEFT HAND / Unknown Venipuncture / Unknown 03/07/2024 8:46 AM CDT 03/07/2024 8:57 AM CDT Sean Freeman MD LAB - BLOOD ORD ERABLES LABORATORY [facility] [place] [facility] [address], [address] * Vitamin B12 (03/07/2024 8:46 AM CDT) Vitamin B12 527 232 - 1,245 pg/mL 03/07/2024 4:58 PM CDT LABORATORY Blood STRUCTURE OF LEFT HAND / Unknown Venipuncture / Unknown 03/07/2024 8:46 AM CDT 03/07/2024 8:58 AM CDT Sean Freeman MD LAB - BLOOD ORD ERABLES Performing Organization Address City/[facility]/ZIP Co de Phone Number LABORATORY [facility] Lab [address], [address] * Bicarbonate urine (03/06/2024 8:31 PM CDT) Bicarbonate Urine 42 mmol/L 03/08/2024 2:41 PM CDT [facility] Comment: Diluted and confirmed INTERPRETIVE INFORMATION: Bicarbonate (HCO3), Urine ?? Reference Interval has not been defined for Bicarbonate, Urine. See Compliance Statement B: [email or web address]/statements Performed At: HOSPITAL LAB [facility]) [facility] CLINICAL LABORATORY [place], [place] [address] Yardage Control Clerk: REJI LOPEZ DO CLIA Number: [id number] Urine URINE SPECIMEN OBTAINED BY CLEAN CATCH PROCEDURE / Unknown Non-blood Collection / Unknown 03/06/2024 8:31 PM CDT 03/06/2024 8:48 PM CDT Sean Freeman MD LAB - URINE ORD ERABLES [facility] [address] [place] [address] [phone] * Sodium random urine (03/06/2024 7:08 PM [...] Sean Freeman MD LAB - URINE ORD JACOBO LABORATORY [facility] [address] [facility] Lab (1st floor, no room number) [place] [address], [facility] * Potassium random urine (03/06/2024 7:08 PM CDT) Potassium Urine 30.8 mmol/L 12:25 AM CDT U LABORATORY Comment:The reference ranges have not been established in urine potassium. The results should be integrated into the clinical context for interpretation. Urine MID-STREAM URINE SPECIMEN / Unknown Non-blood Collection / Unknown 03/06/2024 7:08 PM CDT 03/06/2024 7:10 PM CDT Sean Freeman MD LAB - URINE ORD JACOBO U LABORATORY [facility] [place] [facility] [address], [address] [place] [address], [facility] * Chloride random urine (03/06/2024 7:08 PM CDT) Chloride Urine mmol/L <20 mmol/L 03/07/2024 12:26 AM CDT U LABORATORY Comment:The reference ranges have not been established in urine chloride. The results should be integrated into the clinical context for interpretation. Urine MID-STREAM URINE SPECIMEN / Unknown Non-blood Collection / Unknown 03/06/2024 7:08 PM CDT 03/06/2024 7:10 PM CDT Sean Freeman MD LAB - URINE ORD JACOBO UU LABORATORY [facility] [place] [facility] [address], [address] [phone] * (ABNORMAL) Blood gas venous (03/06/2024 4:44 [...] LAB - BLOOD [place] [facility] LABORATORY [facility] [address] [facility] Lab (1st floor, no room number) [place] [address], [facility] * US Renal Complete Non-Vascular (03/06/2024 4:29 PM CDT) Anatomical Region Laterality Modality Abdomen/Pelvis Ultrasound Impressions 03/06/2024 4:48 PM CDT IMPRESSION: Unremarkable renal ultrasound examination. No hydronephrosis. THANH BARGER MD SYSTEM ID: [id number] Narrative 03/06/2024 4:48 PM CDT US RENAL [...] No hydronephrosis. THANH BARGER MD SYSTEM ID: [id number] Ezequiel Valladares MD [facility] [place] ORDERABLE S * Extra Heparinized Syringe (03/06/2024 2:19 PM CDT) Pathologist [facility] Hold Specimen [facility] 03/06/2024 3:31 PM CDT LABORATORY Blood, venous VENOUS LINE / Unknown Venipuncture / Unknown 03/06/2024 2:19 PM CDT 03/06/2024 2:23 PM CDT Ezequiel Valladares MD LAB - BLOOD [place] [facility] [address] Lab (1st floor, no room number) [place] [phone] [place] [address] * Extra Red Top Tube (03/06/2024 2:19 PM CDT) Hold Specimen [facility] 03/06/2024 3:31 PM CDT [facility] LAB[facility]ATORY Blood VENOUS LINE / Unknown Venipuncture / Unknown 03/06/2024 2:19 PM CDT 03/06/2024 2:23 PM CDT Ezequiel Valladares MD LAB - BLOOD [place] [facility] [address] Lab (1st floor, no room number) [place] [address], [place] * Extra Blue Top Tube (03/06/2024 2:19 PM CDT) Hold Specimen [facility] 03/06/2024 3:31 PM CDT RH LAB[facility]ATORY Blood VENOUS LINE / Unknown Venipuncture / Unknown 03/06/2024 2:19 PM CDT 03/06/2024 2:23 PM CDT Ezequiel Valladares MD LAB - BLOOD [place] [facility] [address] Lab (1st floor, no room number) [place] [phone] [place] [address] * Vitamin D Deficiency (03/06/2024 2:19 PM CDT) Vitamin D, Total (25-Hydroxy) 33 20 - 50 ng/mL 03/07/2024 4:53 PM CDT [facility] Comment:optimum levels Blood BLOOD SPECIMEN / Unknown Venipuncture / Unknown 03/06/2024 2:19 PM CDT 03/06/2024 2:23 PM CDT [facility]U LABORATORY - 03/07/2024 4:53 PM CDT Season, race, dietary intake, and treatment affect the concentration of 24-fotlcxp-Hmhhygh D. Values may decrease during winter months and increase during summer months. Vitamin D determination is routinely performed by an immunoassay specific for 25 hydroxyvitamin D3. ??If an individual is on vitamin D2(ergocalciferol) supplementation, please specify 25 OH vitamin D2 and D3 level determination by LCMSMS test VITD23. Sean Freeman MD LAB - BLOOD ORD ERABLES U LABORATORY [facility] Core Lab [address], [address] [place] [address] * (ABNORMAL) Comprehensive metabolic panel (03/06/2024 2:19 PM CDT) Sodium 137 135 - 145 mmol/L 03/06/2024 3:42 PM CDT LABORATORY Potassium 3.3(L) 3.4 - 5.3 mmol/L 03/06/2024 3:42 PM CDT LABORATORY Carbon Dioxide (CO2) 40(H) 22 - 29 mmol/L 03/06/2024 3:42 PM CDT LABORATORY Anion Gap 18(H) 7 - 15 mmol/L 03/06/2024 3:42 PM CDT LABORATORY Urea Nitrogen 47.9(H) 6.0 - 20.0 mg/dL 03/06/2024 3:42 PM CDT LABORATORY Creatinine 3.54(H) 0.51 - 0.95 mg/dL 03/06/2024 3:42 PM CDT LABORATORY GFR Estimate 17(L) >60 mL/min/1.7 3m2 03/06/2024 3:42 PM CDT LABORATORY Comment:eGFR calculated usin 2020 CKD-EPI equation. Calcium 13.2(H) 8.8 - 10.4 mg/dL 03/06/2024 3:42 PM CDT LABORATORY Comment:Reference intervals for this [...] - 150 U/L 03/06/2024 3:42 PM CDT [facility] LABORATORY AST 22 0 - 45 U/L 03/06/2024 3:42 PM CDT [facility] ALT 14 0 - 50 U/L 03/06/2024 3:42 PM CDT [facility]AT[facility] Protein Total 8.8(H) 6.4 - 8.3 g/dL 03/06/2024 3:42 PM CDT [facility] Albumin 5.2 3.5 - 5.2 g/dL 03/06/2024 3:42 PM CDT [facility] Bilirubin Total 0.3 <=1.2 mg/dL 03/06/2024 3:42 PM CDT LABORATORY Blood BLOOD SPECIMEN / Unknown Venipuncture / Unknown 03/06/2024 2:19 PM CDT 03/06/2024 2:23 PM CDT Ezequiel Valladares [facility] Organization Address City/State/ZIP Co de Phone Number LABORATORY [facility] [address] [facility] Lab (1st floor, no room number) [place] [address], [facility] * (ABNORMAL) UA with Microscopic reflex to Culture (01/31/2023 9:25 PM CDT) Color Urine Straw Colorless, Straw, Light Yellow, Yellow 01/31/2023 9:38 PM CDT LABORATORY Appearance Urine Clear Clear 02/01/20 9:38 PM CDT LABORATORY Glucose Urine Negative Negative mg/dL 01/31/2023 9:38 PM CDT LABORATORY Bilirubin Urine Negative Negative 9:38 PM CDT LABORATORY Ketones Urine Negative Negative mg/dL 01/31/2023 9:38 PM CDT LABORATORY Specific [place] Urine 1.010 1.003 - 1.035 01/31/2023 9:38 PM CDT [facility] LABORATORY Blood Urine Negative Negative 01/31/2023 9:38 PM CDT [facility] LABORATORY pH Urine 8.0(H) 5.0 - 7.0 01/31/2023 9:38 PM CDT [facility] LABORATORY Protein Albumin Urine 20(A) Negative mg/dL [...] MD LAB - URINE ORD ERABLES LABORATORY [facility] [address] Lab (1st floor, no room number) [place] [address], [facility] [phone] from Last 3 Months or Most Recently Relevant to Health Maintenance Advance Directives For more information, please contact: [phone] * Full Code (Latest Code Status on [...] patie nt/ legal decision maker Care Teams Wallboard Worker Relationship Specialty [place] [id number] [place], [place] [id number] PCP - General 03/07/24
--- OUTSIDE RECORDS SUMMARY | 2024-04-09 16:53 | XMS_ITS | Encounter Summary ---
Author Organization [facility] Address [address] [place] [id number] Care Team Providers Care Tank Stave Assembler Name Role Phone Gregg Corrales MD Primary Care Provider Reason for Visit * Reason Comments Abnormal Labs Dizziness Hip Pain * Auth/Cert (Routine) Specialty Diagnoses / Procedures Referred By Contac t Referred To Contact Med Surg Diagnoses Hypokalemia BARBARA (acute kidney injury) (H) Chronic pain in female pelvis Hypokalemia BARBARA (acute kidney injury) (H) Chronic pain in female pelvis Observation Dept [address] [place] [address] Referral ID Status Reason Start Date Expiration Date Visits Re quested Visits Authorized [id number] 1 1 Encounter Details Date Type Department Care Team (Late st Contact Info) Description 04/02/2024 1:27 PM CDT - 04/04/2024 9:52 AM CDT Hospital Encounter [facility] Observation Dept [address] [place] [address] Amy Lott MD [facility] [address] [place] [address] Edgar Allan, DO [address] [place], [place] [id number] Hypokalemia; BARBARA (acute kidney injury) (H); Chronic pain in female pelvis Discharge Disposition: Left Against Medical Advice Social History Tobacco Use Types Packs/Day Years [...] in an abandoned building, in an overnight fpc, or couch-surfing.) Yes 04/02/2024 Are you worried [...] Mass Index 16.81 04/02/2024 5:42 PM CDT documented in this encounter Discharge Summaries * Neal Melara MD - 04/04/2024 9:52 AM CDT Hospitalist Discharge Summary Date of Admission: 04/02/2024 Date of Discharge: 04/04/2024 9:52 AM Discharging Provider: Neal Melara MD Discharge Service: Hospitalist Service Discharge Diagnoses LEFT AMA Acute on chronic hypokalemia Clinically Significant Risk Factors # Cachexia: Estimated body mass index is 16.81 kg/m?? as calculated from the following: Height as of this encounter: 1.702 m (5' 7). Weight as of this encounter: 48.7 kg (107 lb 4.8 oz). # Moderate Malnutrition: based on nutrition assessment Follow-ups Needed After Discharge Left AMA Instructed to follow up with Dr. 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 She had been in to see her primary care provider earlier today. Laboratory testing at office visit reportedly showed recurrent severe low potassium level. She was directed to emergency room for further evaluation and care. She did have a fall with pelvic fractures 6 weeks ago. Has continued to have right hip pain since that time. Does not feel that the hydromorphone that she has at home is helping with her pain any longer. She does state that previous IV Dilaudid is the only thing that she remembers helping with pain to any significant extent. She is specifically asking for IV Dilaudid for pain control. When I offer other oral opiates to trial, she tells me that these will not work. When asked why she does not feel like these will work, she seems to become very frustrated and does not have an answer. She does state that she has been feeling somewhat dizzy the last several days. Has had some nausea. Has not been drinking as well as she should. Also not eating as much as she should. No other acute complaints. Acute on chronic hypokalemia - on replacement protocol - cont home oral K replacement: 80mEq TID - I personally spoke to Dr. Benavides (her [facility] Air Conditioning Supervisor): would like to collect 24 hour urine once K normalized and she is off IV replacement and back on her spironolactone 25mg - I spoke with Dr. Teran. Dr. Benavides would like to speak with him (please see me for his number as he specifically requested his cell number not be placed in the chart) - Mg/Ca normal on this admission Gitelman Syndrome - per Dr. Sorensen this diagnosis has not been confirmed - patient apparently has chronic pain due to this - patient was at [facility] where they were going to do the genetic testing to confirm but she left AMA - resume her spironolactone Minimally displaced right inferior pubic ramus fracture S/p mechanical fall (03/20/2024) H/o chronic pain syndrome and fibromyalgia Osteoporosis - to be seen by Pain Team - avoid IV pain meds - cont home gabapentin - oral dilaudid PRN Prolonged QT - once her K, Mg, Ca are all normalized, repeat EKG - if QT still prolonged, Dr. Benavides is requesting a Cards consult Chronic anemia - stable, no signs of bleeding Yesterday the plan for collecting a 24-hour urine was explained to the patient. It was explained bymyself as well as Dr. Teran. Today, her electrolytes have normalized and we are ready to collect a 24-hour urine. Patient states she wants to go home. She states she has to take care of her friend's dog. She told me this yesterday and I indicated that we are recommending that she stay for that 24-hour urine and to make other plans for the dog. Today, I spent 15 minutes trying to convince her to stay. I explained why we were doing what we were doing. I indicated that her slide maker is concernedand is putting an extra effort to help make a diagnosis in her and help prevent future hospitalizations. Again, she stated she is leaving. Patient signed out AGAINST MEDICAL ADVICE. I called Dr. Benavides. I did communicate with him that I had concerns she might have an eating disorder. Patient was ordering multiple trays at every meal and in between meals. She was also ordering outside food. Unfortunately, we do not know what she is doing in the room or in the bathroom. If she did have a bulimia type of eating disorder where she was purging, and might help explain some of herelectrolyte issues as well. Consultations This Hospital Stay NEPHROLOGY IP CONSULT NUTRITION SERVICES ADULT IP CONSULT PHYSICAL THERAPY ADULT IP CONSULT CARE MANAGEMENT / SOCIAL WORK IP CONSULT PAIN MANAGEMENT ADULT IP CONSULT SPIRITUAL HEALTH SERVICES IP CONSULT Code Status Full Code Time Spent on this Encounter I, Neal Melara MD, personally saw the patient today and spent greater than 30 minutes discharging this patient. Neal Melara MD [facility] OBSERVATION DEPT [address] [facility] [id number] Physical Exam Vital Signs: Temp: 98 ??F (36.7 ??C) Temp src: Oral BP: 90/67 Pulse: 71 Resp: 18 SpO2: 98 % O2 Device: None (Room air) Weight: 107 lbs 4.8 oz Deferred as patient leaving AMA Primary Care Physician Gregg Corrales Discharge Orders No discharge procedures on file. Significant Results and Procedures Most Recent 3 CBC's: Recent Labs Lab Test 04/04/24 0456 04/03/24 0705 04/02/24 1342 WBC 7.7 6.2 8.2 HGB 9.2* 8.3* 10.7* MCV 88 86 83 PLT 409 368 558* Most Recent 3 BMP's: Recent Labs Lab Test 04/04/24 0456 04/03/24 1955 04/03/24 1324 04/03/24 0706 04/03/24 0305 04/02/24 1849 NA 141 -- -- 137 -- 136 POTASSIUM 3.9 3.7 3.2* 2.8* 2.8* < > 2.4* CHLORIDE 97* -- -- 92* -- 85* CO2 34* -- -- 34* -- 37* BUN 24.8* -- -- 31.6* -- 38.0* CR 1.30* -- -- 1.68* -- 2.27* ANIONGAP 10 -- -- 11 -- 14 ELKE 10.1 -- -- 9.4 -- 9.5 GLC 85 -- -- 116* -- 97 < > = values in this interval not displayed. Most Recent 2 LFT's: Recent Labs Lab Test 03/06/24 1419 01/31/23 2017 AST 22 33 ALT 14 20 ALKPHOS 140 81 BILITOTAL 0.3 0.3 , Results for orders placed or performed during the hospital encounter of 03/20/24 XR Pelvis w Hip Right 1 View Narrative EXAM: XR PELVIS AND HIP RIGHT 1 VIEW LOCATION: [facility] DATE: 03/20/2024 INDICATION: Fall, Right hip pain, recent right pubic ramus fracture COMPARISON: 02/15/2024. Impression IMPRESSION: Mildly comminuted nondisplaced fractures of the right inferior pubic ramus. No additional fracture. The pubic symphysis and SI joints are intact. Hip joints are normally aligned, joint spacing is maintained. Discharge Medications Discharge Medication List as of 04/04/2024 9:52 AM CONTINUE these medications which have NOT CHANGED Details ferrous sulfate 325 (65 Fe) MG TBEC EC tablet Take 325 mg by mouth 3 times daily. With food or snack, Historical gabapentin (NEURONTIN) 100 MG capsule Take 1 capsule (100 mg) by mouth 3 times daily., Disp-90 capsule, R-0, E-Prescribe HYDROmorphone (DILAUDID) 2 MG tablet Take 2-4 mg by mouth every 6 hours as needed for severe pain.,Historical hydrOXYzine HCl (ATARAX) 25 MG tablet Take 1-2 tablets (25-50 mg) by mouth every 6 hours as needed for other (adjuvant pain)., Disp-30 tablet, R-0, E-Prescribe magnesium oxide (MAG-OX) 400 MG tablet Take 400 mg by mouth 3 times daily , Historical methocarbamol (ROBAXIN) 500 MG tablet Take 500 mg by mouth 4 times daily as needed for muscle spasms., Historical multivitamin, therapeutic (THERA-VIT) TABS Take 1 tablet by mouth daily, Historical potassium chloride ER (K-TAB) 20 MEQ CR tablet Take 4 tablets (80 mEq) by mouth 3 times daily for 14 days., Disp-168 tablet, R-0, E-Prescribe senna-docusate (SENOKOT-S/PERICOLACE) 8.6-50 MG tablet Take 1 tablet by mouth 2 times daily as needed for constipation., No Print Out spironolactone (ALDACTONE) 25 MG tablet Take 1 tablet (25 mg) by mouth daily., Disp-30 tablet, R-0,E-Prescribe Allergies Allergies Allergen Reactions Iron Sucrose Anxiety [...] rate. Iron Other reaction(s): Other (see comments) documented in this encounter Medications at Time of Discharge Medication Sig Dispensed Refills Start Date End Date ferrous sulfate 325 (65 Fe) MG TBEC EC tablet Take 325 mg by mouth 3 times daily. With food or snack gabapentin (NEURONTIN) 100 MG capsuleIndications:Clos ed fracture of single ramus of right pubis, with delayed healing, subsequent encounter Take 1 capsule (100 mg) by mouth 3 times daily. 90 capsule 03/12/2024 HYDROmorphone (DILAUDID) 2 MG tablet Take 2-4 mg by mouth every 6 hours as needed for severe pain. hydrOXYzine HCl (ATARAX) 25 MG tabletIndications:Acute bilateral low back pain without sciatica Take 1-2 tablets (25-50 mg) by mouth every 6 hours as needed for other (adjuvant pain). 30 tablet 03/12/2024 magnesium oxide (MAG-OX) 400 MG tablet Take 400 mg by mouth 3 times daily 03/06/2017 methocarbamol (ROBAXIN) 500 MG tablet Take 500 mg by mouth 4 times daily as needed for muscle spasms. multivitamin, therapeutic (THERA-VIT) TABS Take 1 tablet by mouth daily senna-docusate (SENOKOT-S/PERICOLACE) 8.6-50 MG tabletIndications:Close d fracture of single ramus of right pubis, with delayed healing, subsequent encounter Take 1 tablet by mouth 2 times daily as needed for constipation. 03/23/2024 spironolactone (ALDACTONE) 25 MG tabletIndications:Gitel man syndrome Take 1 tablet (25 mg) by mouth daily. 30 tablet 03/12/2024 potassium chloride ER (K-TAB) 20 MEQ CR tabletIndications:Gitel man syndrome Take 4 tablets (80 mEq) by mouth 3 times daily for 14 days. 168 tablet 03/23/2024 04/06/2024 documented as of this encounter Progress Notes * Fabian Lara PA-C - 04/04/2024 9:01 AM CDT Images from the original note were not included. [facility] ACUTE INPATIENT PAIN SERVICE [facility] PAIN PROGRESS Assessment/Plan: Lorraine Klein is a 33 year old female who was admitted on 04/02/2024. I was asked by Dr. Neal Melara to see the patient for readmission due to pain, previously admitted on 03/06 and 03/20 for uncontrolled pain and BARBARA. She has a pubic ramus fracture documented on CT imaging 02/15/2024 and has required pain medications. Has frequently asked for IV hydromorphone for pain control and reports oral medications as ineffective at times. Understands we are trying to avoid IV pain medications at this time. Plain film imaging previously showed, minimally displaced fracture involving the right inferior pubic ramus appears stable. Fracture lucency is still visualized. No definitive callus formation. The alignment is not significantly changed. No new fracture or dislocation. The alignment of the hips appear normal. History of chronic pain syndrome, gentleman syndrome, fibromyalgia, gastroparesis, depression, IBS . Describes pain as 9/10. MNPMP reviewed: *15 tablets of hydromorphone 2mg, filled on 03/23 *60 tablets of Tramadol 50mg, filled on 03/12 *12 tablets of hydromorphone 4mg, filled on 03/01 *24 tablets of hydromorphone 4mg, filled on 02/20 *12 tablets of hydromorphone 4mg, filled on 02/14 *Gabapentin 100 & 300mg capsules, last filled 03/12 Opioids received in the past 24h: *(5) 4mg PO hydromorphone Total MME = 100 PLAN: Acute right hip pain. Pain is consistent with a right pubis ramus fracture. Opioid tolerant. Multimodal Medication Therapy: Adjuvants: - Gabapentin 100mg tid - Hydroxyzine 25-50mg q6h prn - Topical Lidocaine - Robaxin 500mg q6h prn Opioids: - Start Dilaudid 2-4mg q4h prn Continue to hold off on IV hydromorphone at this time. Non-medication interventions- Ice Constipation Prophylaxis- Senna-S, Bisacodyl Follow up /Discharge Recommendations - We recommend prescribing the following at the time of discharge: Referred to [facility] for outpatient pain management during previous recent hospitalization. Confirmed referral is still active. Emphasized the importance to schedule a consult so they can treat her acute pain flares to avoid future hospitalizations due to pain. She verbalized an understanding. Subjective: Lorraine is seen today in her bed alert and oriented in no acute distress. Reports her pain is currently a 9/10. Discussed management of her fracture in the interim upon discharge. Her primary care provider with [facility] currently manages her Dilaudid. Expresses interest to schedule a consultation with outpatient pain for ongoing management. Denies nausea, vomiting, constipation. Reviewed continuing with current plan with changes mentioned above, all questions answered. History Drug Use No Tobacco Use Smoking status: Never Smokeless tobacco: Never Objective: Vital signs in last 24 hours: B/P: 90/67, T: 98, P: 71, R: 18 Blood pressure 90/67, pulse 71, temperature 98 ??F (36.7 ??C), temperature source Oral, resp. rate 18, height 1.702 m (5' 7), weight 48.7 kg (107 lb 4.8 oz), SpO2 98%, not currently . Review of Systems: As per subjective, all others negative. Physical Exam General: in no apparent distress and non-toxic HEENT: Head normocephalic atraumatic, oral mucosa moist. Sclerae anicteric CV: Regular rhythm, normal rate, no murmurs Resp: No wheezes, no rales or rhonchi, no focal consolidations GI: Normoactive bowel sounds Skin: No rashes or lesions Extremities: No peripheral edema Psych: Normal affect, mood euthymic Neuro: Grossly normal Imaging: Personally Reviewed. No results found for this visit on 04/02/24. Lab Results: Personally Reviewed. Last Comprehensive Metabolic Panel: Sodium Date Value Ref Range Status 04/04/2024 141 135 - 145 mmol/L Final 11/22/2020 141 133 - 144 mmol/L Final Potassium Date Value Ref Range Status 04/04/2024 3.9 3.4 - 5.3 mmol/L Final 07/22/2021 3.5 3.4 - 5.3 mmol/L Final 11/22/2020 4.2 3.4 - 5.3 mmol/L Final Potassium POCT Date Value Ref Range Status 01/31/2023 <2.0 (LL) 3.4 - 5.3 mmol/L Final Comment: --- Chloride Date Value Ref Range Status 04/04/2024 97 (L) 98 - 107 mmol/L Final 07/22/2021 [...] Dioxide (CO2) Date Value Ref Range Status 04/04/2024 34 (H) 22 - 29 mmol/L Final 07/22/2021 27 20 - 32 mmol/L Final Anion Gap Date Value Ref Range Status 04/04/2024 10 7 - 15 mmol/L Final 07/22/2021 3 3 - 14 mmol/L Final 11/22/2020 2 (L) 3 - 14 mmol/L Final Glucose Date Value Ref Range Status 04/04/2024 85 70 - 99 mg/dL Final 07/22/2021 106 (H) 70 - 99 mg/dL Final 11/22/2020 82 70 - 99 mg/dL Final GLUCOSE BY METER POCT Date Value Ref Range Status 02/01/2023 115 (H) 70 - 99 mg/dL Final Glucose Whole Blood POCT Date Value Ref Range Status 01/31/2023 98 70 - 99 mg/dL Final Comment: --- Urea Nitrogen Date Value Ref Range Status 04/04/2024 24.8 (H) 6.0 - 20.0 mg/dL Final 07/22/2021 13 7 - 30 mg/dL Final 11/22/2020 20 7 - 30 mg/dL Final UREA NITROGEN POCT Date Value Ref Range Status 01/31/2023 47 (H) 7 - 30 mg/dL Final Comment: --- Creatinine Date Value Ref Range Status 04/04/2024 1.30 (H) 0.51 - 0.95 mg/dL Final 11/22/2020 0.80 0.52 - 1.04 mg/dL Final GFR Estimate Date Value Ref Range Status 04/04/2024 56 (L) >60 mL/min/1.73m2 Final Comment: eGFR calculated using 2020 CKD-EPI equation. 11/22/2020 >90 >60 mL/min/[1.73_m2] Final Comment: Non GFR Calc Starting 06/11/2018, serum creatinine based estimated GFR (eGFR) will be calculated using the Chronic Kidney Disease Epidemiology Collaboration (CKD-EPI) equation. Calcium Date Value Ref Range Status 04/04/2024 10.1 8.8 - 10.4 mg/dL Final Comment: Reference [...] negative amphetamine is 500 ng/mL or less. Amphetamines Urine Date Value Ref Range Status 03/21/2024 Screen Negative Screen Negative Final Comment: Cutoff for a negative amphetamine is less than 500 ng/mL. Barbiturates Qual Urine Date Value Ref Range Status 03/15/2015 NEG Final Negative Cutoff for a negative barbiturate is 200 ng/mL or less. Barbituates Urine Date Value Ref Range Status 03/21/2024 Screen Negative Screen Negative Final Comment: Cutoff for a negative barbiturate is less than 200 ng/mL. Benzodiazepine Qual Urine Date Value Ref Range Status 03/15/2015 NEG Final Negative Cutoff for a negative benzodiazepine is 200 ng/mL or less. Cannabinoids Qual Urine Date Value Ref Range Status 03/15/2015 NEG Final Negative Cutoff for a negative cannabinoid is 50 ng/mL or less. Cannabinoids Urine Date Value Ref Range Status 03/21/2024 Screen Negative Screen Negative Final Comment: Cutoff for a negative cannabinoid is less than 50 ng/mL. Cocaine Qual Urine Date Value Ref Range Status 03/15/2015 NEG Final Negative Cutoff for a negative cocaine is 300 ng/mL or less. Cocaine Urine Date Value Ref Range Status 03/21/2024 Screen Negative Screen Negative Final Comment: Cutoff for a negative cocaine is less than 300 ng/mL. Opiates Qualitative Urine Date Value Ref Range Status 03/15/2015 NEG Final Negative Cutoff for a negative opiate is 300 ng/mL or less. Opiates Urine Date Value Ref Range Status 03/21/2024 Screen Positive (A) Screen Negative Final Comment: Cutoff for a positive opiate is 300 ng/mL or greater. This is an unconfirmed screening result to be used for medical purposes only. PCP Qual Urine Date Value Ref Range Status 03/15/2015 NEG Final Negative Cutoff for a negative PCP is 25 ng/mL or less. PCP Urine Date Value Ref Range Status 03/21/2024 Screen Negative Screen Negative Final Comment: Cutoff for a negative PCP is less than 25 ng/mL. Please see A&P for additional details of medical decision making. 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 Benavides (her [facility] Air Conditioning Supervisor): would like to collect 24 hour urine once K normalized and she is off IV replacement and back on her spironolactone 25mg - I spoke with Dr. Teran. Dr. Benavides would like to speak with him (please see me for his number as he specifically requested his cell number not be placed in the chart) - Mg/Ca normal on this admission Gitelman Syndrome - per Dr. Sorensen this diagnosis has not been confirmed - patient apparently has chronic pain due to this - patient was at [facility] where they were going to do the genetic testing to confirm but she left AMA - resume her spironolactone Minimally displaced right inferior pubic ramus fracture S/p mechanical fall (03/20/2024) H/o chronic pain syndrome and fibromyalgia Osteoporosis - to be seen by Pain Team - avoid IV pain meds - cont home gabapentin - oral dilaudid PRN Prolonged QT - once her K, Mg, Ca are all normalized, repeat EKG - if QT still prolonged, Dr. Benavides is requesting a Cards consult Chronic anemia - stable, no signs of bleeding Offered to call family. She declined and said her family sees her as a burden Diet: Combination Diet Regular Diet Adult DVT Prophylaxis: per nursing patient paces in the room [place] Catheter: Not present Lines: None Cardiac Monitoring: ACTIVE order. Indication: Tachyarrhythmias, acute (48 hours) Code Status: Full Code Clinically Significant Risk Factors Present on Admission # Hypokalemia: Lowest K = 2.3 mmol/L in last 2 days, will replace as needed # Hyponatremia: Lowest Na = 134 mmol/L in last 2 days, will monitor as appropriate # Hypochloremia: Lowest Cl = 76 mmol/L in last 2 days, will monitor as appropriate # Hypercalcemia: Highest Ca = 10.6 mg/dL in last 2 days, will monitor as appropriate # Anemia: based on hgb <11 # Cachexia: Estimated body mass index is 16.81 kg/m?? as calculated from the following: Height as of this encounter: 1.702 m (5' 7). Weight as of this encounter: 48.7 kg (107 lb 4.8 oz). Disposition Plan Medically Ready for Discharge: Anticipated in 2-4 Days Neal Melara MD Hospitalist Service Securely message with [employer] (more info) Text page via [facility] Paging/Directory Interval History Patient is sitting on her bed watching her phone. We reviewed her stay and the plan. Patient is tearful in regards to her multiple hospital stays. Eating and drinking Physical Exam Vital Signs: Temp: 98.2 ??F (36.8 ??C) Temp src: Oral BP: 104/77 Pulse: 70 Resp: 16 SpO2: 100 % O2 Device: None (Room air) Weight: 107 lbs 4.8 oz Constitutional: awake, alert, cooperative, no apparent distress, and appears stated age Eyes: Lids and lashes normal, pupils equal, round and reactive to light, extra ocular muscles intact, sclera clear, conjunctiva normal ENT: Normocephalic, without obvious abnormality, atraumatic, sinuses nontender on palpation, external ears without lesions, oral pharynx with moist mucous membranes, tonsils without erythema or exudates, gums normal and good dentition. Medical Decision Making 45 MINUTES SPENT BY ME on the date of service doing chart review, history, exam, documentation & further activities per the note. Data I have personally reviewed the following data over the past 24 hrs: 6.2 \ 8.3 (L) / 368 137 92 (L) 31.6 (H) / 116 (H) 2.8 (L); 2.8 (L) 34 (H) 1.68 (H) \ TSH: 1.74 T4: N/A A1C: N/A Imaging results reviewed over the past 24 hrs: No results found for this or any previous visit (from the past 24 hour(s)). documented in this encounter H&P Notes * Edgar Allan, DO - 04/02/2024 5:51 PM CDT History and Physical - Hospitalist Service Date of Admission: 04/02/2024 Assessment & Plan Lorraine Klein is a 33 year old female admitted on 04/02/2024. 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 She was sent to emergency room from primary care provider's office after being found to have recurrent hypokalemia. Gitelman syndrome. Acute kidney injury on chronic kidney disease. Hyponatremia. Hypokalemia. Hypercalcemia. Hypermagnesemia. -Start continuous IV fluids with normal saline with 20 mEq potassium chloride per liter at 100 cc an hour. -High intensity potassium replacement protocol. -Restart prior to admission dosing potassium chloride 80 mEq 3 times a day. -Recheck metabolic panel tonight. -Nephrology consult. Subacute right inferior pubis rami fractures. -Fractures occurred approximately 6 weeks ago. -She does not feel that oral hydromorphone helps with her pain any longer. -She is specifically stating that IV Dilaudid is the only pain medication that helps with her pain. -Schedule acetaminophen 975 mg 3 times a day. -Concerning that she is still requiring opiates for pain control 6 weeks out from a fracture. -Will have oxycodone available tonight. -Avoid IV opiates. -Consider orthopedic surgery consult if she continues to have severe pain. Chronic anemia. -Hemoglobin currently a bit better than recent findings. -Suspect she is mildly dehydrated at this time. -Recheck CBC tomorrow. -Hemoglobin likely to decrease on recheck after IV fluids. Suspected malnutrition. -Registered dietitian consult. Diet: Regular diet. DVT Prophylaxis: Pneumatic Compression Devices [place] Catheter: Not present Lines: None Cardiac Monitoring: None Code Status: Full code. Clinically Significant Risk Factors Present on Admission # Hypokalemia: Lowest K = 2.3 mmol/L in last 2 days, will replace as needed # Hyponatremia: Lowest Na = 134 mmol/L in last 2 days, will monitor as appropriate # Hypochloremia: Lowest Cl = 76 mmol/L in last 2 days, will monitor as appropriate # Hypercalcemia: Highest Ca = 10.6 mg/dL in last 2 days, will monitor as appropriate # Acute Kidney Injury, unspecified: based on a >150% or 0.3 mg/dL increase in last creatinine compared to past 90 day average, will monitor renal function # Anemia: based on hgb <11 # Cachexia: Estimated body mass index is 16.75 kg/m?? as calculated from the following: Height as of this encounter: 1.702 m (5' 7). Weight as of this encounter: 48.5 kg (106 lb 14.8 oz). Disposition Plan Medically Ready for Discharge: Anticipated Tomorrow Edgar Allan DO Hospitalist Service Securely message with [employer] (more info) Text page via [facility] Paging/Directory Chief Complaint Abnormal labs. 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 She had been in to see her primary care provider earlier today. Laboratory testing at office visit reportedly showed recurrent severe low potassium level. She was directed to emergency room for further evaluation and care. She did have a fall with pelvic fractures 6 weeks ago. Has continued to have right hip pain since that time. Does not feel that the hydromorphone that she has at home is helping with her pain any longer. She does state that previous IV Dilaudid is the only thing that she remembers helping with pain to any significant extent. She is specifically asking for IV Dilaudid for pain control. When I offer other oral opiates to trial, she tells me that these will not work. When asked why she does not feel like these will work, she seems to become very frustrated and does not have an answer. She does state that she has been feeling somewhat dizzy the last several days. Has had some nausea. Has not been drinking as well as she should. Also not eating as much as she should. No other acute complaints. Past Medical History Past Medical History: Diagnosis [...] Prescriptions Last Dose Informant Patient Reported? Taking? ferrous sulfate 325 (65 Fe) MG TBEC [...] 3 times daily multivitamin, therapeutic (THERA-VIT) TABS Self Yes No Sig: Take 1 tablet by mouth daily potassium chloride ER (K-TAB) 20 MEQ CR tablet No No Sig: Take 4 tablets (80 mEq) by mouth 3 times daily for 14 days. senna-docusate (SENOKOT-S/PERICOLACE) 8.6-50 MG tablet No No Sig: Take 1 tablet by mouth 2 times daily as needed for constipation. spironolactone (ALDACTONE) 25 MG tablet No No [...] Iron Other reaction(s): Other (see comments) Physical Exam Vital Signs: Temp: 98 ??F (36.7 ??C) Temp src: Temporal BP: 113/85 Pulse: 81 Resp: 18 SpO2: 97 % C2Kpzvtm: None (Room air) Weight: 106 lbs 14.77 oz Gen: Thin, NAD, A&Ox3. Eyes: PERRL, sclera anicteric. OP: MMM, no lesions. Neck: Supple. CV: Regular, no murmurs. Lung: CTA b/l, normal effort. Ab: +BS, soft. Skin: Warm, dry to touch. No rash. Ext: No pitting edema LE b/l. Medical Decision Making 75 MINUTES SPENT BY ME on the date of service doing chart review, history, exam, documentation & further activities per the note. Data I have personally reviewed the following data over the past 24 hrs: 8.2 \ 10.7 (L) / 558 (H) 134 (L) 76 (L) 43.9 (H) / 113 (H) 2.3 (LL) 43 (H) 2.67 (H) \ TSH: 1.74 T4: N/A A1C: N/A Imaging results reviewed over the past 24 hrs: No results found for this or any previous visit (from the past 24 hour(s)). documented in this encounter Consult Notes * Mike Teran MD - 04/03/2024 3:49 PM CDTAssociated Order(s): NEPHROLOGY IP CONSULT RENAL CONSULTATION NOTE REFERRING MD: Edgar Allan DO REASON FOR CONSULTATION: BARBARA on CKD, acute on chronic hypokalemia HPI: 33 y.o woman with CKD IIIB presumed due to recurrent acute and chronic hypokalemia, who was admitted for severe hypokalemia. Her chronic hypokalemia is presumed due to Gitelman syndrome. She says she takes potassium chloride 80 meq tid and Mg 325-400 mg tid. She says she takes these medications 100% of the time. She says takes spironolactone 25 mg bid. She says her slide maker, Dr. Benavides, advised her to take it bid instead of daily. I dicussed the case with Dr. Benavides who said he did not advise that. She says she drinks 3-4 gallons of fluid (water, Pedialyte and Gatorade) daily. I feel thirsty all the time. They told he it is due to my Gitelman, she says. She say has been having dizziness and lightheadedness since Sunday. She says she saw per PCP yesterday who advised her to come to the ER after her ECG was abnormal. She has prolong QTc. Patient has a long history. I discussed the case with Dr. Melara () and her slide maker, Dr. Benavides. There is a high concern that she is not taking her medications and that she is not being transparent. Dr. Benavides would like to repeat a 24 hrs urine collection when she is at steady on oral KCl to help him manage her condition outpatient. Patient asked if she could go home tomorrow because she has to watch her friend's dog. She says she eats multiple times a day. She denies vomiting and diarrhea. I reviewed notes from ER ([facility]) and IM (Dr. Allan and Dr. Melara). I discussed the case with Dr. Melara and Dr. Benavides. ROS: A complete review of systems was performed and is negative except as noted above. PMH: Past Medical History: [...] DIAGNOSTIC (GENERAL) 2017 takedown of gtube site MEDICATIONS: Current Facility-Administered Medications Medication Dose Route Frequency Provider Last Rate Last Admin acetaminophen (TYLENOL) tablet 975 mg 975 mg Oral TID Edgar Allan DO 975 mg at 04/03/24 1147 ferrous sulfate (FEROSUL) tablet 325 mg 325 mg Oral TID w/meals Edgar Allan DO 325 mg at 04/03/24 1147 gabapentin (NEURONTIN) capsule 100 mg 100 mg Oral TID Edgar Allan DO 100 mg at 04/03/24 1356 magnesium oxide (MAG-OX) tablet 400 mg 400 mg Oral TID Edgar Allan DO 400 mg at 04/03/24 1356 multivitamin, therapeutic (THERA-VIT) tablet 1 tablet 1 tablet Oral Daily Edgar Allan DO 1tablet at 04/03/24 0834 potassium chloride deanne ER (KLOR-CON M20) CR tablet 20 mEq 20 mEq Oral Once Neal Melara MD potassium chloride ER (K-TAB/KLOR-CON) CR tablet 80 mEq 80 mEq Oral TID Edgar Allan DO 80 mEq at 04/03/24 1403 sodium chloride (PF) 0.9% PF flush 3 mL 3 mL Intracatheter Q8H Edgar Allan DO spironolactone (ALDACTONE) tablet 25 mg 25 mg Oral Daily Neal Melara MD 25 mg at 04/03/24 1147 ALLERGIES: Allergies as of 04/02/2024 - Reviewed 04/02/2024 Allergen Reaction Noted Iron sucrose Anxiety and [...] of Health Financial Resource Strain: Low Risk (04/02/2024) Financial Resource Strain Within the past 12 months, have you or your family members you live with been unable to get utilities (heat, electricity) when it was really needed?: No Food Insecurity: Low Risk (04/02/2024) Food Insecurity Within the past 12 months, did you worry that your food would run out before you got money to buy more?: No Within the past 12 months, did the food you bought just not last and you didn???t have money to getmore?: No Transportation Needs: Low Risk (04/02/2024) Transportation Needs Within the past 12 months, has lack of transportation kept you from medical appointments, getting your medicines, non-medical meetings or appointments, work, or from getting things that you need?: No Physical Activity: Sufficiently Active (04/07/2021) Received from [facility], [facility] Exercise Vital Sign Days of Exercise per Week: 6 days Minutes of Exercise per Session: 90 min Stress: No Stress Concern Present (04/07/2021) Received from [facility], [facility] [employer] [place] [facility] [employer] [facility] - Occupational Stress Questionnaire Feeling of Stress : Only a little Social Connections: Socially Integrated (04/06/2023) Received from [address] [facility] Social Connections Frequency of Communication with Friends and Family: 0 Interpersonal Safety: Low Risk (04/03/2024) Interpersonal Safety Do you feel physically and emotionally safe where you currently live?: Yes Within the past 12 months, have you been hit, slapped, kicked or otherwise physically hurt by someone?: No Within the past 12 months, have you been humiliated or emotionally abused in other ways by your partner or ex-partner?: No Housing Stability: Low Risk (04/02/2024) Housing Stability Do you have housing? : Yes Are you worried about losing your housing?: No PHYSICAL EXAM: BP 104/77 (BP Location: Left arm) Pulse 70 Temp 98.2 ??F (36.8 ??C) (Oral) Resp 16 Ht 1.702m (5' 7) Wt 48.7 kg (107 lb 4.8 oz) LMP (Approximate) SpO2 100% BMI 16.81 kg/m?? GENERAL: Laying in bed. She seems very comfortable and wo pain or distress. HEENT: Normocephalic. No gross abnormalities. Pupils equal. MMM. Dentition is ok. CV: RRR, RESP: Clear bilaterally with good efforts GI: Abdomen sucken. Soft. NT MUSCULOSKELETAL: extremities nl - no gross deformities noted. No edema. SKIN: no suspicious lesions or rashes, dry to touch NEURO: Awake, alert and conversing normally PSYCH: mood good, affect appropriate LYMPH: No palpable ant/post cervical LABS: CBC RESULTS: Recent Labs Lab 04/03/24 0705 04/02/24 1342 WBC 6.2 8.2 RBC 3.04* 3.86 HGB 8.3* 10.7* HCT 26.0* 32.2* PLT 368 558* BMP RESULTS: Recent Labs Lab 04/03/24 1324 04/03/24 0706 04/03/24 0305 04/02/24 1849 04/02/24 1342 NA -- 137 -- 136 134* POTASSIUM 3.2* 2.8* 2.8* 2.8* 2.4* 2.3* CHLORIDE -- 92* -- 85* 76* CO2 -- 34* -- 37* 43* BUN -- 31.6* -- 38.0* 43.9* CR -- 1.68* -- 2.27* 2.67* GLC -- 116* -- 97 113* ELKE -- 9.4 -- 9.5 10.6* INRNo lab results found in last 7 days. 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 # Chronic hypokalemia: Due to Gitelman? Normal Mg level. -KCl 80 meq tid # CKD IIIB: Presumed due to recurrent AKIs and chronic hyponatremia. # Gitelman syndrome? -KCl -Mg is not low, on replacement -spironolactone -not hypotensive -[facility] previously offered genetic testing # Acute kidney injury: Improving nicely with IVF. BARBARA is due to volume depletion. Clearly she is not drinking 3-+4 gallons of water daily. She has BARBARA and metabolic alkalosis, wondering if she has emesis? She denies vomiting and diarrhea. # Non-compliance: High concern from her slide maker. # Severe Fe def anemia: Plan: # Cont KCl 80 meq tid # cont Mg # Cont spironolactone 25 mg daily # Do 24 hrs urine collection for total urine volume, K, Na, Mg and creatinine when she is at steadywith oral KCl # Strict I/O # Please have patient sign out AMA if she insists on going home tomorrow Mike Teran MD [facility] Consultants - Nephrology Office Pager: [phone] * Jacki Zuniga RD - 04/03/2024 12:39 PM CDTAssociated Order(s): NUTRITION SERVICES ADULT IP CONSULT CLINICAL NUTRITION SERVICES - ASSESSMENT NOTE RECOMMENDATIONS FOR MD/PROVIDER TO ORDER: Continue MVI/M Consider scheduling antimetics to better control nausea Recommendations Ordered by Registered Dietitian (RD): Encourage frequent, adequate intakes as tolerated MALNUTRITION: % Weight Loss: Weight loss does not meet criteria for malnutrition % Intake: </= 75% for >/= 1 month (possibly less?) Subcutaneous Fat Loss: moderate global losses Muscle Loss: mild-moderate global losses Fluid Retention: None noted Malnutrition Diagnosis: Moderate malnutrition In Context of: Chronic illness or disease REASON FOR ASSESSMENT Lorraine Klein is a 33 year old female seen by Registered Dietitian for Provider Order - suspected malnutrition. Lorraine Klein admitted from her primary care provider's office after being found to have recurrent hypokalemia. 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 NUTRITION HISTORY Information obtained from patient and chart review. Met with patient at bedside this morning. Liza states that she has been having low energy recently so it's been difficult for her to cook for herself. She has also notes nausea after taking a bite of food. She thinks this all could be related to her recent pelvic fracture. Typically she is always hungry and will eat 4-6 meals/day. She likes to have prepared foods (frozenand fresh) on hand in case she doesn't want to cook. She also keeps foods in her pantry to eat in case nothing sounds good (like oatmeal and cereal). She doesn't like Ensure, but she will use a protein powder that she'll add to smoothies and waffles. She also will drink at least 1 ORS daily like liquid IV of Gatorade. When asked about her weight she says that she has been able to maintain her current weight for the past 6 months. She says her slide maker wants her to take daily weights to monitor her hydration status. CURRENT NUTRITION ORDERS Diet Order: Regular Current Intake/Tolerance: No intakes recorded. Patient had breakfast meal tray in the room during visit. So far she has ordered 2 meals trays for two breakfasts while admitted. She reports to be feeling a little bit better since being rehydrated with fluids. RD encouraged meal ordering and intake. Offered oral nutrition supplements which pt politely declined at this time, she only wished to have the ability to order multiple entrees at one time, RD put anote in [employer]. Labs: reviewed; K 2.8 (L) Medications: reviewed; ferrous sulfate, mag-ox, MVI/M, potassium chloride, spironolactone, NaCl + KCl infusion @ 100 mL/hr Skin: no edema or pressure injuries noted I/Os: no BM noted ANTHROPOMETRICS Height: 5' 7 Weight: 107 lbs 4.8 oz Body mass index is 16.81 kg/m??. IBW: 135 lbs %IBW: 79% Weight History: She has lost 10.8% of her weight in 1 year. Wt Readings from Last 10 Encounters: 04/02/24 48.7 kg (107 lb 4.8 oz) 03/20/24 47.9 kg (105 lb 11.2 oz) 03/12/24 47.8 kg (105 lb 6.4 oz) 02/01/23 57.2 kg (126 lb 1.6 oz) 11/04/22 62.6 kg (137 lb 14.4 oz) 09/11/22 59 kg (130 lb) 07/27/22 59 kg (130 lb) 05/16/22 64 kg (141 lb 1.6 oz) 04/30/22 64 kg (141 lb) 03/06/22 61.4 kg (135 lb 6.4 oz) Per CE: 01/21/24 49.2 kg (108 lb 7.5 oz) 51.7 kg (114 lb) (01/20/24 0725) 49.9 kg (110 lb) 12/18/2023 10:48 AM CDT 51.2 kg (112 lb 12.8 oz) 08/14/2023 2:46 AM REAL ESTATE ASSOCIATE 53.8 kg (118 lb 11.2 oz) 07/23/2023 4:25 AM REAL ESTATE ASSOCIATE 54.6 kg (120 lb 5.9 oz) 04/17/2023 4:02 AM CDT ASSESSED NUTRITION NEEDS PER APPROVED PRACTICE GUIDELINES: Dosing Weight 48.7 kg Estimated Energy Needs: 35-40 Kcal/Kg Justification: underweight Estimated Protein Needs: 1.2-1.5 g pro/Kg Justification: preservation of lean body mass Estimated Fluid Needs: 1 mL/Kcal Justification: maintenance OR per provider pending fluid status NUTRITION DIAGNOSIS: Inadequate oral intake related to nausea, low energy as evidenced by evidence of weight loss, 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 NUTRITION INTERVENTIONS Recommendations / Nutrition Prescription See above. Implementation Nutrition education: encouraged small frequent intakes to support weight Composition of Meals and Snacks Nutrition Goals Consume 75-100% of nutritionally adequate meals/supplements 4-6x daily Maintain weight >48.7 kg MONITORING AND EVALUATION: Progress towards goals will be monitored and evaluated per protocol and Practice Guidelines Jacki Zuniga, MS, RD, LD Clinical Dietitian 3rd floor/ICU: [phone] All other floors: [phone] Weekend/holiday: [phone] Office: [phone] * Nguyen Sosa - 04/03/2024 10:51 AM CDTAssociated Order(s): SPIRITUAL HEALTH SERVICES IP CONSULT SPIRITUAL HEALTH SERVICES - Consult Note Obs 2 Referral Source/ Reason for Visit: Staff consult for emotional support. Summary and Recommendations - Reflectively listened to patient share her long medical journey with kidney issues and other healthproblems; beginning in childhood. She tries to stay positive and focus on additional aspects of herlife; so her identity doesn't devolve into being seen only as a sick person and professional patient; while her peers are advancing in their careers, starting families, seeing the world; etc. She identifies as an open-minded spiritual person; relating to God/ The Universe/ Breath, etc. Plan: Patient hopes to discharge to home 04/04/24. No additional needs. [facility]. Rev. Nguyen Sosa, M. Div. Staff Nutrition Faculty Member [facility] available 15/01 for emergent requests/ referrals, either by paging the on- call hop trainer or by entering an LEIA/STAT consult in [employer], which will also page the on-call hop trainer. Assessment Saw pt Lorraine Klien regarding staff consult for emotional support. Patient/Family Understanding of Illness and Goals of Care - Patient understands that she is at due to complications from chronic kidney disease. Distress and Loss - She has been facing health problems for most of her life. This has made her reality different from that of others her age. Strengths, Coping and Resources - She named her mother and a good friend as supportive people in her life. 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 Meaning, Beliefs and Spirituality - Patient was raised [employer], but now considers herself spiritual. * Fabian Lara PA-C - 04/03/2024 9:39 AM CDTAssociated Order(s): PAIN MANAGEMENT ADULT IP CONSULT Images from the original note were not included. [facility] ACUTE INPATIENT PAIN SERVICE [facility], [facility], [facility], [facility], [place] PAIN CONSULT Assessment/Plan: Lorraine Klein is a 33 year old female who was admitted on 04/02/2024. I was asked by Dr. Neal Melara to see the patient for readmission due to pain, previously admitted on 03/06 and 03/20 for uncontrolled pain and BARBARA. She has a pubic ramus fracture documented on CT imaging 02/15/2024 and has required pain medications. Plain film imaging previously showed, minimally displaced fracture involving the right inferior pubic ramus appears stable. Fracture lucency is still visualized. No definitive callus formation. The alignment is not significantly changed. No new fracture or dislocation. The alignment of the hips appear normal. History of chronic pain syndrome, gentleman syndrome, fibromyalgia, gastroparesis, depression, IBS . Describes pain as 9/10. [facility] *15 tablets of hydromorphone 2mg, filled on 03/23 *60 tablets of Tramadol 50mg, filled on 03/12 *12 tablets of hydromorphone 4mg, filled on 03/01 *24 tablets of hydromorphone 4mg, filled on 02/20 *12 tablets of hydromorphone 4mg, filled on 02/14 *Gabapentin 100 & 300mg capsules, last filled 03/12 PLAN: Acute right hip pain. Pain is consistent with a right pubis ramus fracture. Opioid tolerant. Multimodal Medication Therapy: Adjuvants: - Gabapentin 100mg tid - Hydroxyzine 25-50mg q6h prn - Topical Lidocaine - Robaxin 500mg q6h prn Opioids: - Oxycodone 2.5-5mg q4h prn discontinued - Start Dilaudid 2-4mg q4h prn Will try to hold off on IV hydromorphone at this time. Given a single dose during our visit. Non-medication interventions- Ice Constipation Prophylaxis- Senna-S, Bisacodyl Follow up /Discharge Recommendations - We recommend prescribing the following at the time of discharge: Referred to [facility] for outpatient pain management during previous recent hospitalization. Confirmed referral is still active. Subjective: Lorraine is seen today in her bed alert and oriented in no acute distress. Reports her pain is currently a 9/10. Discussed management of her fracture in the interim upon discharge. Her primary care provider with [facility] currently manages her Dilaudid. She is interested in consulting with a pain specialist to monitor her pain in the interim. Expresses interest in medical cannabis. Denies nausea, vomiting, constipation. Reviewed continuing with current plan with changes mentioned above, all questions answered. Visit/Communication Style Virtual (Video) communication was used to evaluate Lorraine. Lorraine consented to the use of video communication. Video START time: 1000, 04/03/2024 Video STOP time: 1018, 04/03/2024 Patient's location: [facility] OBSERVATION DEPT Provider's location during the visit: [facility] History Drug Use No Tobacco Use Smoking status: Never Smokeless tobacco: Never Objective: Vital signs in last 24 hours: B/P: 104/77, T: 98.2, P: 70, R: 16 Blood pressure 104/77, pulse 70, temperature 98.2 ??F (36.8 ??C), temperature source Oral, resp. rate 16, height 1.702 m (5' 7), weight 48.7 kg (107 lb 4.8 oz), SpO2 100%, not currently . Review of Systems: As per subjective, all others negative. Physical Exam General: in no apparent distress and non-toxic HEENT: Head normocephalic atraumatic, oral mucosa moist. Sclerae anicteric Resp: No labored breathing Skin: No rashes or lesions seen on video Psych: Normal affect, mood euthymic Neuro: Grossly normal Imaging: Personally Reviewed. No results found for this visit on 04/02/24. Lab Results: Personally Reviewed. Last Comprehensive Metabolic Panel: Sodium Date Value Ref Range Status 04/03/2024 137 135 - 145 mmol/L Final 11/22/2020 141 133 - 144 mmol/L Final Potassium Date Value Ref Range Status 04/03/2024 2.8 (L) 3.4 - 5.3 mmol/L Final 04/03/2024 2.8 (L) 3.4 - 5.3 mmol/L Final 07/22/2021 3.5 3.4 - 5.3 mmol/L Final 11/22/2020 4.2 3.4 - 5.3 mmol/L Final Potassium POCT Date Value Ref Range Status 01/31/2023 <2.0 (LL) 3.4 - 5.3 mmol/L Final Comment: --- Chloride Date Value Ref Range Status 04/03/2024 92 (L) 98 - 107 mmol/L Final 07/22/2021 [...] Dioxide (CO2) Date Value Ref Range Status 04/03/2024 34 (H) 22 - 29 mmol/L Final 07/22/2021 27 20 - 32 mmol/L Final Anion Gap Date Value Ref Range Status 04/03/2024 11 7 - 15 mmol/L Final 07/22/2021 3 3 - 14 mmol/L Final 11/22/2020 2 (L) 3 - 14 mmol/L Final Glucose Date Value Ref Range Status 04/03/2024 116 (H) 70 - 99 mg/dL Final 07/22/2021 106 (H) 70 - 99 mg/dL Final 11/22/2020 82 70 - 99 mg/dL Final GLUCOSE BY METER POCT Date Value Ref Range Status 02/01/2023 115 (H) 70 - 99 mg/dL Final Glucose Whole Blood POCT Date Value Ref Range Status 01/31/2023 98 70 - 99 mg/dL Final Comment: --- Urea Nitrogen Date Value Ref Range Status 04/03/2024 31.6 (H) 6.0 - 20.0 mg/dL Final 07/22/2021 13 7 - 30 mg/dL Final 11/22/2020 20 7 - 30 mg/dL Final UREA NITROGEN POCT Date Value Ref Range Status 01/31/2023 47 (H) 7 - 30 mg/dL Final Comment: --- Creatinine Date Value Ref Range Status 04/03/2024 1.68 (H) 0.51 - 0.95 mg/dL Final 11/22/2020 0.80 0.52 - 1.04 mg/dL Final GFR Estimate Date Value Ref Range Status 04/03/2024 41 (L) >60 mL/min/1.73m2 Final Comment: eGFR calculated using 2020 CKD-EPI equation. 11/22/2020 >90 >60 mL/min/[1.73_m2] Final Comment: Non GFR Calc Starting 06/11/2018, serum creatinine based estimated GFR (eGFR) will be calculated using the Chronic Kidney Disease Epidemiology Collaboration (CKD-EPI) equation. Calcium Date Value Ref Range Status 04/03/2024 9.4 8.8 - 10.4 mg/dL Final Comment: Reference [...] negative amphetamine is 500 ng/mL or less. Amphetamines Urine Date Value Ref Range Status 03/21/2024 Screen Negative Screen Negative Final Comment: Cutoff for a negative amphetamine is less than 500 ng/mL. Barbiturates Qual Urine Date Value Ref Range Status 03/15/2015 NEG Final Negative Cutoff for a negative barbiturate is 200 ng/mL or less. Barbituates Urine Date Value Ref Range Status 03/21/2024 Screen Negative Screen Negative Final Comment: Cutoff for a negative barbiturate is less than 200 ng/mL. Benzodiazepine Qual Urine Date Value Ref Range Status 03/15/2015 NEG Final Negative Cutoff for a negative benzodiazepine is 200 ng/mL or less. Cannabinoids Qual Urine Date Value Ref Range Status 03/15/2015 NEG Final Negative Cutoff for a negative cannabinoid is 50 ng/mL or less. Cannabinoids Urine Date Value Ref Range Status 03/21/2024 Screen Negative Screen Negative Final Comment: Cutoff for a negative cannabinoid is less than 50 ng/mL. Cocaine Qual Urine Date Value Ref Range Status 03/15/2015 NEG Final Negative Cutoff for a negative cocaine is 300 ng/mL or less. Cocaine Urine Date Value Ref Range Status 03/21/2024 Screen Negative Screen Negative Final Comment: Cutoff for a negative cocaine is less than 300 ng/mL. Opiates Qualitative Urine Date Value Ref Range Status 03/15/2015 NEG Final Negative Cutoff for a negative opiate is 300 ng/mL or less. Opiates Urine Date Value Ref Range Status 03/21/2024 Screen Positive (A) Screen Negative Final Comment: Cutoff for a positive opiate is 300 ng/mL or greater. This is an unconfirmed screening result to be used for medical purposes only. PCP Qual Urine Date Value Ref Range Status 03/15/2015 NEG Final Negative Cutoff for a negative PCP is 25 ng/mL or less. PCP Urine Date Value Ref Range Status 03/21/2024 Screen Negative Screen Negative Final Comment: Cutoff for a negative PCP is less than 25 ng/mL. Please see A&P for additional details of medical decision making. David Lara PA-C Acute Care Pain Management Team Hours of pain coverage Mon-Fri 8-1600, afterhours please call the maintenance worker house trailer [facility] ([place], [place], [place], [place]) Page via [employer] console -Click for [employer] * Phyllis Lutz RN - 04/03/2024 9:37 AM CDTAssociated Order(s): CARE MANAGEMENT / SOCIAL WORK IP CONSULT Care Management Discharge Note Discharge Date: 04/04/2024 Discharge Disposition: Home Additional Information: Pt admitted with Gitelman syndrome, Acute kidney injury on chronic kidney disease, Hyponatremia, Hypokalemia, Hypercalcemia, Hypermagnesemia noted to have unplanned readmission risk of 20%. Per AM care rounds pt resides at home and is independent at baseline. Per provider, there are no anticipated discharge needs at this time. Will clear consult, please call if needs arise. Phyllis Lutz MICROBIOLOGY TEACHER Inpatient Care Coordination documented in this encounter ED Notes * Pooja Hearn RN - 04/02/2024 4:30 PM CDT ED Nurse Handoff Report ED Chief complaint: Abnormal Labs, Dizziness, and Hip Pain . ED Diagnosis: Final diagnoses: Hypokalemia BARBARA (acute kidney injury) (H) Chronic pain in female pelvis - in setting of pubic ramus fracture Allergies: Allergies Allergen Reactions Iron Sucrose Anxiety [...] Status: Full Code Activity level - Baseline/Home: standby. Activity Level - Current: in bed and standby. Lift room needed: No. Bariatric: No Test Equipment Mechanic Needed: No Isolation: No. Infection: Not Applicable. Respiratory status: Room air Vital Signs (within 30 minutes): Vitals: 04/02/24 1324 04/02/24 1328 04/02/24 1343 04/02/24 1400 BP: 107/82 (!) 122/92 (!) 122/92 113/85 Pulse: 106 88 81 Resp: 18 18 18 Temp: 98 ??F (36.7 ??C) TempSrc: Temporal SpO2: 100% 95% 97% Weight: 48.5 kg (106 lb 14.8 oz) Height: 1.702 m (5' 7) Cardiac Rhythm: , Pain level: Patient confused: No. Patient Falls Risk: nonskid shoes/slippers when out of bed, patient and family education, and activity supervised. 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 She also notes ongoing pelvic pain without new traumatic injury that is been difficult to control at home despite use of 4 mg Dilaudid and hydroxyzine. She notes these meds do not work for me. She is requesting IV pain medication. She denies new swelling or color change to the affected extremity. She reports that she has been seen in follow-up and there has been poor healing on x-rays and that is why she is still in pain. She denies syncope. She denies chest pain. She does note her heart rate has been as high as 1 50- 200 noted on a monitor she has at home when she feels palpitations. She reports she has been eating or drinking. No fever or chills. No diarrhea or vomiting. Abnormal Results: Labs Ordered and Resulted from Time of ED Arrival to Time of ED Departure BASIC METABOLIC PANEL - Abnormal Result Value Sodium 134 (*) Potassium 2.3 (*) Chloride 76 (*) Carbon Dioxide (CO2) 43 (*) Anion Gap 15 Urea Nitrogen 43.9 (*) Creatinine 2.67 (*) GFR Estimate 24 (*) Calcium 10.6 (*) Glucose 113 (*) MAGNESIUM - Abnormal Magnesium 2.4 (*) CBC WITH PLATELETS AND DIFFERENTIAL - Abnormal WBC Count 8.2 RBC Count 3.86 Hemoglobin 10.7 (*) Hematocrit 32.2 (*) MCV 83 MCH 27.7 MCHC 33.2 RDW 13.8 Platelet Count 558 (*) % Neutrophils 64 % Lymphocytes 25 % Monocytes 8 % Eosinophils 2 % Basophils 1 % Immature Granulocytes 0 NRBCs per 100 WBC 0 Absolute Neutrophils 5.3 Absolute Lymphocytes 2.0 Absolute Monocytes 0.6 Absolute Eosinophils 0.2 Absolute Basophils 0.1 Absolute Immature Granulocytes 0.0 Absolute NRBCs 0.0 TSH WITH FREE T4 REFLEX - Normal TSH 1.74 No orders to display Treatments provided: IV, labs, fluids, medication Family Comments: n/a OBS brochure/video discussed/provided to patient: N/A ED Medications: Medications sodium chloride 0.9% BOLUS 1,000 mL (0 mLs Intravenous Stopped 04/02/24 1513) HYDROmorphone (DILAUDID) tablet 4 mg (4 mg Oral $Given 04/02/24 1410) LORazepam (ATIVAN) tablet 0.5 mg (0.5 mg Oral $Given 04/02/24 1410) potassium chloride deanne ER (KLOR-CON M20) CR tablet 40 mEq (40 mEq Oral $Given 04/02/24 1515) potassium chloride 10 mEq in 100 mL sterile water infusion (10 mEq Intravenous $New Bag 04/02/24 1516) Drips infusing: No For the majority of the shift this patient was Green. Interventions performed were n/a. 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 She also notes ongoing pelvic pain withoutnew traumatic injury that is been difficult to control at home despite use of 4 mg Dilaudid and hydroxyzine. She notes these meds do not work for me. She is requesting IV pain medication. She denies new swelling or color change to the affected extremity. She reports that she has been seen in follow- up and there has been poor healing on x-rays and that is why she is still in pain. She denies syncope. She denies chest pain. She does note her heart rate has been as high as 1 50-200 noted on a monitor she has at home when she feels palpitations. She reports she has been eating or drinking. No fever or chills. No diarrhea or vomiting. Independent Historian None Review of External Notes I reviewed the recent admission. I reviewed a primary care hospital follow-up note from earlier today. 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 IBS (irritable bowel syndrome) SBO (small bowel obstruction) (H) Medications ferrous sulfate 325 (65 Fe) MG TBEC EC tablet gabapentin (NEURONTIN) 100 MG capsule hydrOXYzine HCl (ATARAX) 25 MG tablet magnesium oxide (MAG-OX) 400 MG tablet multivitamin, therapeutic (THERA-VIT) TABS potassium chloride ER (K-TAB) 20 MEQ CR tablet senna-docusate (SENOKOT-S/PERICOLACE) 8.6-50 [...] Temp src Pulse Resp SpO2 Height Weight 04/02/24 1324 107/82 98 ??F (36.7 ??C) Temporal 106 18 100 % 1.702 m (5' 7) 48.5 kg (106 lb 14.8 oz) Physical Exam General: Thin adult sitting upright Eyes: PERRL, Conjunctive within normal limits ENT: Moist mucous membranes, oropharynx clear. CV: Normal S1S2, no murmur, rub or gallop. Regular rate and rhythm Resp: Clear to auscultation bilaterally, no wheezes, rales or rhonchi. Normal respiratory effort. GI: Abdomen is soft, nontender and nondistended. MSK: No extremity edema. Skin: Warm and dry. No rashes or lesions or ecchymoses on visible skin. Neuro: Alert and oriented. Responds appropriately to all questions and commands. No focal findings appreciated. Normal muscle tone. Psych: Teary. Depressed mood. Diagnostics Lab Results Labs Ordered and Resulted from Time of ED Arrival to Time of ED Departure BASIC METABOLIC PANEL - Abnormal Result Value Sodium 134 (*) Potassium 2.3 (*) Chloride 76 (*) Carbon Dioxide (CO2) 43 (*) Anion Gap 15 Urea Nitrogen 43.9 (*) Creatinine 2.67 (*) GFR Estimate 24 (*) Calcium 10.6 (*) Glucose 113 (*) MAGNESIUM - Abnormal Magnesium 2.4 (*) CBC WITH PLATELETS AND DIFFERENTIAL - Abnormal WBC Count 8.2 RBC Count 3.86 Hemoglobin 10.7 (*) Hematocrit 32.2 (*) MCV 83 MCH 27.7 MCHC 33.2 RDW 13.8 Platelet Count 558 (*) % Neutrophils 64 % Lymphocytes 25 % Monocytes 8 % Eosinophils 2 % Basophils 1 % Immature Granulocytes 0 NRBCs per 100 WBC 0 Absolute Neutrophils 5.3 Absolute Lymphocytes 2.0 Absolute Monocytes 0.6 Absolute Eosinophils 0.2 Absolute Basophils 0.1 Absolute Immature Granulocytes 0.0 Absolute NRBCs 0.0 TSH WITH FREE T4 REFLEX - Normal TSH 1.74 EKG ECG results from 04/02/24 EKG 12-lead, tracing only Value Systolic Blood Pressure Diastolic Blood Pressure Ventricular Rate 91 Atrial Rate OK Interval QRS Duration 84 QT 250 QTc 307 P [place] R AXIS 85 T [place] 260 Interpretation ECG Accelerated Junctional rhythm Left ventricular hypertrophy with repolarization abnormality ( Sokolow-Hernandez ) Abnormal ECG When compared with ECG of 06-Mar-2024 20:33, Junctional rhythm has replaced Sinus rhythm T wave inversion now evident in Inferior leads T wave inversion more evident in Anterolateral leads QT has shortened Unconfirmed report - interpretation of this ECG is computer generated - see medical record for final interpretation Confirmed by - EMERGENCY ROOM, PHYSICIAN ([id number]), society editor Kirill Montero ([id number]) on 04/02/2024 1:41:48 PM - My interpretation suggests the possibility of normal sinus rhythm rather than accelerated junctional rhythm. Independent Interpretation None ED Course Medications Administered Medications potassium chloride 10 mEq in 100 mL sterile water infusion (10 mEq Intravenous $New Bag 04/02/24 1519) sodium chloride 0.9% BOLUS 1,000 mL (0 mLs Intravenous Stopped 04/02/24 1513) HYDROmorphone (DILAUDID) tablet 4 mg (4 mg Oral $Given 04/02/24 1410) LORazepam (ATIVAN) tablet 0.5 mg (0.5 mg Oral $Given 04/02/24 1410) potassium chloride deanne ER (KLOR-CON M20) CR tablet 40 mEq (40 mEq Oral $Given 04/02/24 1515) Discussion of Management Admitting Hospitalist, Dr. Allan ED Course Past medical records, nursing notes, and vitals reviewed. I performed an exam of the patient and obtained history, as documented above. I reassessed the patient. She is teary and requesting IV pain medicine. I discussed with the patient my preference to avoid IV narcotics in the setting of nonacute fracture. I reassured the patient that pain medicine would likely be consulted to help control her symptoms. I discussed findings and plan for admission. All questions were answered. Additional Documentation None Medical Decision Making / Diagnosis MDM Lorraine Klein is a 33 year old female with a history of Gitelman Syndrome with chronic kidney disease and ongoing pain from pubic rami fracture 1 month ago who presents to the emergency department with concerns for dizziness, palpitations with rapid heart rate noted at home, and ongoing pain despite use of oral narcotics and hydroxyzine at home. Vital signs are reassuring here. She is neurovascularly intact. No new trauma reported to suggest the need for emergent repeat imaging of her pelvis. Labs consistent with acute renal failure/BARBARA and hypokalemia. By her history, she has been eating and drinking without reported GI losses and taking potassium supplements, so these findings seem unexpected. Perhaps her underlying chronic condition is contributing. She is hydrated here, given potassium supplementation, and oral pain medications. She is adamant that she requires IV narcotic painmedications but I do not feel the patient would be best served by IV narcotics at this time. The pain management team could be consulted on admission for ongoing pain control. At this time we will continue with oral pain medications. Patient is stable on transfer of care. Disposition The patient was admitted to the hospital. Diagnosis ICD-10-CM 1. Hypokalemia E87.6 2. BARBARA (acute kidney injury) (H) N17.9 3. Chronic pain in female pelvis R10.2 G89.29 in setting of pubic ramus fracture MD Oren Greene Tracy Dianne, MD 04/02/24 1526 * Claudia Shepard RN - 04/02/2024 1:25 PM CDT Images from the original note were not included. Pt reports multiple concerns. Pt ambulatory with 1 crutch, reports hip pain with R hip fx. Endorsesnear syncope and lightheadedness. Reports EKG today revealed prolonged QT, pt endorses hx poor electrolyte balance. Denies missing potassium supplement. Reports feeling like HR has intermittently been rapid today as well. A & Ox4. Triage Assessment (Adult) Row Name 04/02/24 1325 Triage Assessment Airway WDL WDL Cardiac WDL Cardiac WDL X pt reports prolonged QT and fast HR VBA DEVELOPER Cognitive/Neuro/Behavioral WDL Cognitive/Neuro/Behavioral WDL X dizziness documented in this encounter Miscellaneous Notes * Plan of Care - Birgit Perea RN - 04/04/2024 9:49 AM CDT Goal Outcome Evaluation: Pt A&O, refused care, refused bed alarm, refused to stay in hospital, education was proved from and MD, about importance of electrolytes about food consumption, safety and care, but pt refused stay, left hospital against medical advised. BP 90/67 (BP Location: Right arm) Pulse 71 Temp 98 ??F (36.7 ??C) (Oral) Resp 18 Ht 1.702 m(5' 7) Wt 48.7 kg (107 lb 4.8 oz) LMP (Approximate) SpO2 98% BMI 16.81 kg/m?? Problem: Adult Inpatient Plan of Care Goal: Plan of Care Review Description: The Plan of Care Review/Shift note should be completed every shift. The Outcome Evaluation is a brief statement about your assessment that the patient is improving, declining, or no change. This information will be displayed automatically on your shift note. Outcome: Unable to Meet Goal: Patient-Specific Goal (Individualized) Description: You can add care plan individualizations to a care plan. Examples of Individualizationmight be: Parent requests to be called daily at 9am for status, I have a hard time hearing out of my right ear, or Do not touch me to wake me up as it startles me. Outcome: Unable to Meet Goal: Absence of Hospital-Acquired Illness or Injury Outcome: Unable to Meet Intervention: Identify and Manage Fall Risk Recent Flowsheet Documentation Taken 04/04/2024 0900 by Makhanov, Birgit V, RN Safety Promotion/Fall Prevention: assistive device/personal items within reach clutter free environment maintained nonskid shoes/slippers when out of bed safety round/check completed Intervention: Prevent Skin Injury Recent Flowsheet Documentation Taken 04/04/2024899 by Birgit Perea RN Body Position: position changed independently Intervention: Prevent and Manage VTE (Venous Thromboembolism) Risk Recent Flowsheet Documentation Taken 04/04/2024899 by Birgit Perea RN VTE Prevention/Management: SCDs off (sequential compression devices) Intervention: Prevent Infection Recent Flowsheet Documentation Taken 04/04/2024899 by Birgit Perea RN Infection Prevention: equipment surfaces disinfected hand hygiene promoted rest/sleep promoted single patient room provided Goal: Optimal Comfort and Wellbeing Outcome: Unable to Meet Intervention: Monitor Pain and Promote Comfort Recent Flowsheet Documentation Taken 04/04/2024899 by Birgit Perea RN Pain Management Interventions: medication (see MAR) Taken 04/04/2024 08 by Birgit Perea RN Pain Management Interventions: medication (see MAR) Goal: Readiness for Transition of Care Outcome: Unable to Meet Problem: Pain Acute Goal: Optimal Pain Control and Function Outcome: Unable to Meet Intervention: Develop Pain Management Plan Recent Flowsheet Documentation Taken 04/04/2024899 by Birgit Perea RN Pain Management Interventions: medication (see MAR) Taken 04/04/2024 08 by Birgit Perea RN Pain Management Interventions: medication (see MAR) Intervention: Prevent or Manage Pain Recent Flowsheet Documentation Taken 04/04/2024899 by Birgit Perea RN Bowel Elimination Promotion: adequate fluid intake promoted ambulation promoted Medication Review/Management: medications reviewed * Plan of Care - Irvin Zeng RN - 04/04/2024 5:28 AM CDT Pt is Aox4 and up IND in the room. Pt tolerating PO meds. Pt rates pain 8/10 and has been given PO dilaudid, tylenol, and robaxin with pt rating latest pain 7/10. Potassium level is rising per lab draws and has been given scheduled potassium alongside corrective replacement dose. Telemetry showing sinus rhythm in the 70's. Pt reporting urine output to staff and calls appropriately. Potassium to be checked in the morning. Continue to follow plan of care. BP 136/89 (BP Location: Left arm) Pulse 85 Temp 98.1 ??F (36.7 ??C) (Oral) Resp 18 Ht 1.702m (5' 7) Wt 48.7 kg (107 lb 4.8 oz) LMP (Approximate) SpO2 99% BMI 16.81 kg/m?? Goal Outcome Evaluation: Plan of Care Reviewed With: patient Overall Patient Progress: improvingOverall Patient Progress: improving Outcome Evaluation: potassium level improving, pain being managed Problem: Adult Inpatient Plan of Care Goal: Plan of Care Review Description: The Plan of Care Review/Shift note should be completed every shift. The Outcome Evaluation is a brief statement about your assessment that the patient is improving, declining, or no change. This information will be displayed automatically on your shift note. Outcome: Progressing Flowsheets (Taken 04/04/2024526) Outcome Evaluation: potassium level improving, pain being managed Plan of Care Reviewed With: patient Overall [...] Manage Fall Risk Recent Flowsheet Documentation Taken 04/03/20242044 by Irvin Zeng RN Safety Promotion/Fall Prevention: assistive device/personal items within reach clutter free environment maintained nonskid shoes/slippers when out of bed safety round/check completed Intervention: Prevent Skin Injury Recent Flowsheet Documentation Taken 04/03/20242044 by Irvin Zeng RN Body Position: position changed independently Intervention: Prevent and Manage VTE (Venous Thromboembolism) Risk Recent Flowsheet Documentation Taken 04/03/20242044 by Irvin Zeng RN VTE Prevention/Management: SCDs off (sequential compression devices) Goal: Optimal Comfort and Wellbeing Outcome: Progressing Intervention: Monitor Pain and Promote Comfort Recent Flowsheet Documentation Taken 04/04/2024433 by Irvin Zeng RNtree pruner Interventions: medication (see MAR) Taken 04/04/2024232 by Irvin Zeng RNtree pruner Interventions: medication (see MAR) Goal: Readiness for Transition of Care Outcome: Progressing Problem: Pain Acute Goal: Optimal Pain Control and Function Outcome: Progressing Intervention: Develop Pain Management Plan Recent Flowsheet Documentation Taken 04/04/2024433 by Irvin Zeng RNtree pruner Interventions: medication (see MAR) Taken 04/04/2024232 by Irvin Zeng RNtree pruner Interventions: medication (see MAR) Intervention: Prevent or Manage Pain Recent Flowsheet Documentation Taken 04/03/20242044 by Irvin Zeng RN Medication Review/Management: medications reviewed * Plan of Care - Alejandra Hearn RN - 04/03/2024 7:00 PM CDT Shift: [id number] Admitted Diagnosis: Hypokalemia, BARBARA, Chronic Pain in female pelvis Neuro/Orientation: A&Ox4, able to make needs known Lungs: CTA Cardiac: TELE - SR GI: WNL : WNL - clear, yellow output Skin: pale IV: S/L Labs/Imaging: RN managed K+ protocol, K+ recheck around 1909; labs in AM including Iron and iron binding capacity and ferritin levels Activity: ind Diet: High kCal/protein Pain: chronic pain - tylenol, robaxin, dilaudid 2-4mg; cold and heat therapies Consult: pain team following; nephrology, CM/SW, Nutrition, and spiritual health. Plan:chronic pain management with use of alternative therapies Goal Outcome Evaluation: Plan of Care Reviewed With: patient Overall Patient Progress: improving Outcome Evaluation: K+ level improving; RN K+ managed protocol. Continues to c/o pain 04/03, declines offering of T-pump, repositioning, warm blanket, ice, ambulation. Pain team following. Problem: Adult Inpatient Plan of Care Goal: Plan of Care Review Description: The Plan of Care Review/Shift note should be completed every shift. The Outcome Evaluation is a brief statement about your assessment that the patient is improving, declining, or no change. This information will be displayed automatically on your shift note. Outcome: Progressing Flowsheets (Taken 04/03/2024 1647) Outcome Evaluation: K+ level improving RN K+ managed protocol. Continues to c/o pain 04/03, declines offering of T- pump, repositioning, warm blanket, ice, ambulation. Pain team following. Plan of Care Reviewed With: patient Overall [...] Manage Fall Risk Recent Flowsheet Documentation Taken 04/03/2024 164 by Alejandra Hearn RN Safety Promotion/Fall Prevention: assistive device/personal items within reach room organization consistent Intervention: Prevent Skin Injury Recent Flowsheet Documentation Taken 04/03/2024 164 by Alejandra Hearn RN Body Position: position changed independently Intervention: Prevent and Manage VTE (Venous Thromboembolism) Risk Recent Flowsheet Documentation Taken 04/03/2024 1600 by Alejandra Hearn RN VTE Prevention/Management: SCDs off (sequential compression devices) Intervention: Prevent Infection Recent Flowsheet Documentation Taken 04/03/2024 164 by Alejandra Hearn RN Infection Prevention: equipment surfaces disinfected hand hygiene promoted rest/sleep promoted single patient room provided Goal: Optimal Comfort and Wellbeing Outcome: Progressing Goal: Readiness for Transition of Care Outcome: Progressing Problem: Pain Acute Goal: Optimal Pain Control and Function Outcome: Progressing Intervention: Prevent or Manage Pain Recent Flowsheet Documentation Taken 04/03/2024 1600 by Alejandra Hearn RN Bowel Elimination Promotion: adequate fluid intake promoted ambulation promoted * Plan of Care - Teressa Cole RN - 04/03/2024 3:14 PM CDT Shift 0700 - 1530 Admitted Dx: Hypokalemia to Outpt, Uncontrolled Pain to Inpt Neuro/Orientation: AO x 4 Lungs: WDL Cardiac: WDL w/ tele SR 84 GI: WDL : WDL Skin: WDL IV: R PIV, SL Labs/Imaging: RN managed potassium protocol, next drawn at 19:10. Activity: Ind with cane Diet: High calorie, high protein Pain: Complains of 9 to 10/10 pain, requesting note to pain team for IV pain medication. Consult: Pain, nephrology, nutrition Plan: Continue with alternative pain management interventions. Goal Outcome Evaluation: Plan of Care Reviewed With: patient Overall Patient Progress: no changeOverall Patient Progress: no change Outcome Evaluation: Pt continues to complain of pain 04/03. Pain team following. Problem: Adult Inpatient Plan of Care Goal: Plan of Care Review Description: The Plan of Care Review/Shift note should be completed every shift. The Outcome Evaluation is a brief statement about your assessment that the patient is improving, declining, or no change. This information will be displayed automatically on your shift note. Outcome: Progressing Flowsheets (Taken 04/03/2024 1513) Outcome Evaluation: Pt continues to complain of pain 04/03. Pain team following. Plan of Care Reviewed With: patient Overall [...] Manage Fall Risk Recent Flowsheet Documentation Taken 04/03/2024829 by Teressa Cole RN Safety Promotion/Fall Prevention: nonskid shoes/slippers when out of bed patient and family education safety round/check completed Intervention: Prevent Skin Injury Recent Flowsheet Documentation Taken 04/03/2024829 by Teressa Cole RN Body Position: position changed independently Intervention: Prevent and Manage VTE (Venous Thromboembolism) Risk Recent Flowsheet Documentation Taken 04/03/2024829 by Teressa Cole RN VTE Prevention/Management: SCDs off (sequential compression devices) Intervention: Prevent Infection Recent Flowsheet Documentation Taken 04/03/2024 08 by Teressa Cole RN Infection Prevention: rest/sleep promoted hand hygiene promoted single patient room provided Goal: Optimal Comfort and Wellbeing Outcome: Progressing Goal: Readiness for Transition of Care Outcome: Progressing Problem: Pain Acute Goal: Optimal Pain Control and Function Outcome: Progressing Intervention: Prevent or Manage Pain Recent Flowsheet Documentation Taken 04/03/2024 0830 by Teressa Cole RN Bowel Elimination Promotion: adequate fluid intake promoted privacy promoted * Plan of Care - Moon Huizar RN - 04/03/2024 4:00 AM CDT PRIMARY DIAGNOSIS: R hip pain/ Hypokalemia OUTPATIENT/OBSERVATION GOALS TO BE MET BEFORE DISCHARGE: 1. Pain Status: Improved-controlled with oral pain medications. 2. Return to near baseline physical activity: Yes 3. Cleared for discharge by consultants (if involved): No Sail Cutter Nurse Safe discharge environment identified: Yes Barriers to discharge: Yes Entered by: Moon Huizar RN 04/03/2024 Pt is A&Ox4. VSS. Independent in room. Regular diet. Fluids running @ 100 ml/hr. PRN Oxycodone/Robaxin given for pain. Potassium of 2.8. Replaced, redraw @ 1100. Tele: SR 65. Consults: Nephrology. Please review provider order for any additional goals. Nurse to notify provider when observation goals have been met and patient is ready for discharge. * Plan of Care - Moon Huizar RN - 04/03/2024 12:00 AM CDT PRIMARY DIAGNOSIS: R hip pain/ Hypokalemia OUTPATIENT/OBSERVATION GOALS TO BE MET BEFORE DISCHARGE: 1. Pain Status: Improved-controlled with oral pain medications. 2. Return to near baseline physical activity: Yes 3. Cleared for discharge by consultants (if involved): No Sail Cutter Nurse Safe discharge environment identified: Yes Barriers to discharge: Yes Entered by: Moon Huizar RN 04/03/2024 Pt is A&Ox4. VSS. Independent in room. Regular diet. PRN Oxycodone given for pain. Please review provider order for any additional goals. Nurse to notify provider when observation goals have been met and patient is ready for discharge. * Plan of Care - Moon Huizar RN - 04/02/2024 8:00 PM CDT PRIMARY DIAGNOSIS: R hip pain/ Hypokalemia OUTPATIENT/OBSERVATION GOALS TO BE MET BEFORE DISCHARGE: 1. Pain Status: Improved-controlled with oral pain medications. 2. Return to near baseline physical activity: Yes 3. Cleared for discharge by consultants (if involved): No Sail Cutter Nurse Safe discharge environment identified: Yes Barriers to discharge: Yes Entered by: Moon Huizar RN 04/03/2024 Pt is A&Ox4. VSS. Independent in room. Regular diet. Potassium recheck of 2.4. Replaced, recheck @ 0300. Please review provider order for any additional goals. Nurse to notify provider when observation goals have been met and patient is ready for discharge. 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 Patient has been oriented to the observation room, bathroom and call light is in place. Discussed discharge goals and expectations with patient/family. Goal Outcome Evaluation: * Pharmacy-Admission Medication History - Jamil Otero RPH - 04/02/2024 5:33 PM CDT Pharmacist Admission Medication History Admission medication history is complete. The information provided in this note is only as accurateas the sources available at the time of the update. Information Source(s): Patient via in-person Pertinent Information: none Changes made to VBA DEVELOPER medication list: Added: dilaudid and robaxin Deleted: None Changed: None Allergies reviewed with patient and updates made in EHR: yes Medication History Completed By: Jamil Otero RPH 04/02/2024 5:33 PM VBA DEVELOPER Med List Medication Sig Last Dose ferrous sulfate 325 (65 Fe) MG TBEC EC tablet Take 325 mg by mouth 3 times daily. With food or snack 04/02/2024 at am gabapentin (NEURONTIN) 100 MG capsule Take 1 capsule (100 mg) by mouth 3 times daily. 04/02/2024 at am HYDROmorphone (DILAUDID) 2 MG tablet Take 2-4 mg by mouth every 6 hours as needed for severe pain. 04/01/2024 at hs hydrOXYzine HCl (ATARAX) 25 MG tablet Take 1-2 tablets (25-50 mg) by mouth every 6 hours as needed for other (adjuvant pain). Unknown magnesium oxide (MAG-OX) 400 MG tablet Take 400 mg by mouth 3 times daily 04/02/2024 at am methocarbamol (ROBAXIN) 500 MG tablet Take 500 mg by mouth 4 times daily as needed for muscle spasms. Past Week multivitamin, therapeutic (THERA-VIT) TABS Take 1 tablet by mouth daily 04/02/2024 at am potassium chloride ER (K-TAB) 20 MEQ CR tablet Take 4 tablets (80 mEq) by mouth 3 times daily for 14 days. 04/02/2024 at x2 senna-docusate (SENOKOT-S/PERICOLACE) 8.6-50 MG tablet Take 1 tablet by mouth 2 times daily as needed for constipation. Unknown spironolactone (ALDACTONE) 25 MG tablet Take 1 tablet (25 mg) by mouth daily. 04/02/2024 at am documented in this encounter Plan of Treatment Not on file documented as of this encounter Procedures Procedure Name Priority Date/Time Associated Diagnosis Comments CBC WITH PLATELETS AND DIFFERENTIAL Routine 04/04/2024 4:56 AM CDT CBC WITH PLATELETS & DIFFERENTIAL Routine 04/04/2024 4:56 AM CDT MAGNESIUM Add-On 04/04/2024 4:56 AM CDT IRON AND IRON BINDING CAPACITY Routine 04/04/2024 4:56 AM CDT FERRITIN Routine 04/04/2024 4:56 AM CDT BASIC METABOLIC [...] 04/02/2024 3:29 PM CDT CBC WITH PLATELETS AND DIFFERENTIAL STAT 04/02/2024 1:42 PM CDT CBC WITH PLATELETS & DIFFERENTIAL STAT 04/02/2024 1:42 PM CDT TSH WITH FREE T4 REFLEX STAT 04/02/2024 1:42 PM CDT MAGNESIUM STAT 04/02/2024 1:42 PM CDT BASIC METABOLIC PANEL STAT 04/02/2024 1:42 PM CDT EKG 12-LEAD, TRACING ONLY STAT 04/02/2024 1:33 PM CDT documented in this encounter Results * Magnesium (04/04/2024 4:56 AM CDT) Pathologist [facility] Magnesium 2.1 1.7 - 2.3 mg/dL 04/04/2024 10:46 AM CDT [facility] Blood BLOOD SPECIMEN / Unknown Venipuncture / Unknown 04/04/2024 4:56 AM CDT 04/04/2024 5:26 AM CDT Neal Melara MD LAB - BLOOD ORDERABL ES [facility] [address] Lab (1st floor, no room number) [place] [address] * (ABNORMAL) CBC with platelets and differential (04/04/2024 4:56 AM CDT) Pathologist [facility] WBC Count 7.7 4.0 - 11.0 10e3/uL [...] LAB - BLOOD ORDERABL ES [facility] [address] Lab (1st floor, no room number) [place] [address], [facility] * Ferritin (04/04/2024 4:56 AM CDT) [facility] Signature Ferritin 19 6 - 175 ng/mL 04/04/2024 2:10 PM CDT [facility] Blood BLOOD SPECIMEN / Unknown Venipuncture / Unknown 04/04/2024 4:56 AM CDT 04/04/2024 5:26 AM CDT Mike Teran MD LAB - BLOOD ORDERABL ES [facility] [address] [place] [address] * Iron and iron binding capacity (04/04/2024 4:56 AM CDT) Iron 104 37 - 145 ug/dL 04/04/2024 5:53 AM CDT [facility] Iron Binding Capacity 414 240 - 430 ug/dL 04/04/2024 5:53 AM CDT [facility] Iron Sat Index 25 15 - 46 % 04/04/2024 5:53 AM CDT LABORATORY Blood BLOOD SPECIMEN / Unknown Venipuncture / Unknown 04/04/2024 4:56 AM CDT 04/04/2024 5:26 AM CDT Mike Teran MD LAB - BLOOD ORDERABL ES LABORATORY [facility] [address] Lab (1st floor, no room number) [place] [address] * (ABNORMAL) Basic metabolic panel (04/04/2024 4:56 AM CDT) Sodium 141 135 - 145 mmol/L 04/04/2024 5:53 AM CDT [facility] Potassium 3.9 3.4 - 5.3 mmol/L 04/04/2024 5:53 AM CDT [facility] Chloride 97(L) 98 - 107 mmol/L 04/04/2024 5:53 AM CDT [facility] Carbon Dioxide (CO2) 34(H) 22 - 29 mmol/L 04/04/2024 5:53 AM CDT [facility] Anion Gap 10 7 - 15 mmol/L 04/04/2024 5:53 AM CDT [facility] Urea Nitrogen 24.8(H) 6.0 - 20.0 mg/dL 04/04/2024 5:53 AM CDT [facility] Creatinine 1.30(H) 0.51 - 0.95 mg/dL 04/04/2024 5:53 AM CDT [facility] GFR Estimate 56(L) >60 mL/min/1.7 3m2 04/04/2024 5:53 AM CDT [facility] Comment:eGFR calculated usin 2020 CKD-EPI equation. Calcium 10.1 8.8 - 10.4 mg/dL 04/04/2024 5:53 AM CDT [facility] Comment:Reference intervals for this test were updated on 01/08/2024 to reflect our healthy population more accurately. There may be differences in the flagging of prior results with similar values performed with this method. Those prior results can be interpreted in the context of the updated reference intervals. Glucose 85 70 - 99 mg/dL 04/04/2024 5:53 AM CDT [facility] Blood BLOOD SPECIMEN / Unknown Venipuncture / Unknown 04/04/2024 4:56 AM CDT 04/04/2024 5:26 AM CDT Neal Melara MD LAB - BLOOD ORDERABL ES [facility] [address] Lab (1st floor, no room number) [place] [address] * Potassium (04/03/2024 7:55 PM CDT) Potassium 3.7 3.4 - 5.3 mmol/L 04/03/2024 8:17 PM CDT [facility] Blood STRUCTURE OF LEFT HAND / Unknown Venipuncture / Unknown 04/03/2024 7:55 PM CDT 04/03/2024 7:59 PM CDT Neal Melara MD LAB - BLOOD ORDERABL ES [facility] [address] Lab (1st floor, no room number) [address] * (ABNORMAL) Potassium (04/03/2024 1:24 PM CDT) Potassium 3.2(L) 3.4 - 5.3 mmol/L 04/03/2024 1:51 PM CDT [facility] Blood STRUCTURE OF RIGHT HAND / Unknown Venipuncture / Unknown 04/03/2024 1:24 PM CDT 04/03/2024 1:30 PM CDT Neal Melara MD LAB - BLOOD ORDERABL ES LABORATORY [facility] [address] Lab (1st floor, no room number) [address] * (ABNORMAL) Potassium (04/03/2024 7:06 AM CDT) Potassium 2.8(L) 3.4 - 5.3 mmol/L 04/03/2024 7:43 AM CDT LABORATORY Blood STRUCTURE OF LEFT UPPER LIMB / Unknown Venipuncture / Unknown 04/03/2024 7:06 AM CDT 04/03/2024 7:17 AM CDT Edgar Allan DO LAB - BLOOD ORDERA BLES LABORATORY [facility] [address] Lab (1st floor, no room number) [address] * (ABNORMAL) Basic metabolic panel (04/03/2024 7:06 AM CDT) Sodium 137 135 - 145 mmol/L 04/03/2024 7:43 AM CDT [facility] Potassium 2.8(L) 3.4 - 5.3 mmol/L 04/03/2024 7:43 AM CDT [facility] Chloride 92(L) 98 - 107 mmol/L 04/03/2024 7:43 AM CDT [facility] Carbon Dioxide (CO2) 34(H) 22 - 29 mmol/L 04/03/2024 7:43 AM CDT [facility] Anion Gap 11 7 - 15 mmol/L 04/03/2024 7:43 AM CDT [facility] Urea Nitrogen 31.6(H) 6.0 - 20.0 mg/dL 04/03/2024 7:43 AM CDT [facility] Creatinine 1.68(H) 0.51 - 0.95 mg/dL 04/03/2024 7:43 AM CDT [facility] GFR Estimate 41(L) >60 mL/min/1.7 3m2 04/03/2024 7:43 AM CDT [facility] Comment:eGFR calculated usin 2020 CKD-EPI equation. Calcium 9.4 8.8 - 10.4 mg/dL 04/03/2024 7:43 AM CDT [facility] Comment:Reference intervals for this test were updated on 01/08/2024 to reflect our healthy population more accurately. There may be differences in the flagging of prior results with similar values performed with this method. Those prior results can be interpreted in the context of the updated reference intervals. Glucose 116(H) 70 - 99 mg/dL 04/03/2024 7:43 AM CDT [facility] Blood STRUCTURE OF LEFT UPPER LIMB / Unknown Venipuncture / Unknown 04/03/2024 7:06 AM CDT 04/03/2024 7:17 AM CDT Edgar Allan DO LAB - BLOOD ORDERA BLES LABORATORY [facility] [address] [facility] ([facility]st [facility], no room number) [place] [address] * (ABNORMAL) CBC with platelets (04/03/2024 7:05 AM CDT) WBC Count 6.2 4.0 - 11.0 [...] - BLOOD ORDERA BLES Performing Organization Address City/[facility]/ZIP Co de Phone Number [facility] [address] Lab (1st floor, no room number) [address] * (ABNORMAL) Potassium (04/03/2024 3:05 AM CDT) Potassium 2.8(L) 3.4 - 5.3 mmol/L 04/03/2024 3:29 AM CDT [facility] Blood STRUCTURE OF RIGHT HAND / Unknown Venipuncture / Unknown 04/03/2024 3:05 AM CDT 04/03/2024 3:10 AM CDT Edgar Allan DO LAB - BLOOD ORDERA BLES [facility] Lab [address] Lab (1st floor, no room number) [place] [id number] [place] [address] * (ABNORMAL) Basic metabolic panel (04/02/2024 6:49 PM CDT) Sodium 136 135 - 145 mmol/L 04/02/2024 7:21 PM CDT LABORATORY Potassium 2.4(LL) 3.4 - 5.3 mmol/L 04/02/2024 7:21 PM CDT [facility] Chloride 85(L) 98 - 107 mmol/L 04/02/2024 7:21 PM CDT [facility] Carbon Dioxide (CO2) 37(H) 22 - 29 mmol/L 04/02/2024 7:21 PM CDT LABORATORY Anion Gap 14 7 - 15 mmol/L 04/02/2024 7:21 PM CDT [facility] Urea Nitrogen 38.0(H) 6.0 - 20.0 mg/dL 04/02/2024 7:21 PM CDT LABORATORY Creatinine 2.27(H) 0.51 - 0.95 mg/dL 04/02/2024 7:21 PM CDT [facility] GFR Estimate 29(L) >60 mL/min/1.7 3m2 04/02/2024 7:21 PM CDT [facility] Comment:eGFR calculated usin 2020 CKD-EPI equation. Calcium 9.5 8.8 - 10.4 mg/dL 04/02/2024 7:21 PM CDT [facility] Comment:Reference intervals for this test were updated on 01/08/2024 to reflect our healthy population more accurately. There may be differences in the flagging of prior results with similar values performed with this method. Those prior results can be interpreted in the context of the updated reference intervals. Glucose 97 70 - 99 mg/dL 04/02/2024 7:21 PM CDT LABORATORY Blood STRUCTURE OF LEFT HAND / Unknown Venipuncture / Unknown 04/02/2024 6:49 PM CDT 04/02/2024 6:55 PM CDT Edgar Allan DO LAB - BLOOD ORDERA BLES LABORATORY [facility] [address] [facility] Lab (1st floor, no room number) [place] [address], [facility] * Asymptomatic Influenza A/B, RSV, & [...] PM CDT 04/02/2024 6:18 PM CDT Narrative [facility] - 04/02/2024 7:06 PM CDT Testing was performed using the Xpert Xpress CoV2/Flu/RSV Assay on the Instant API GeneXpert Instrument. This test should be ordered [...] management. This test was validated by the [facility]. These laboratories are certified under the Clinical Laboratory Improvement Amendments of 1988 (CLIA-88) as qualified to perfom high complexity laboratory testing. Edgar Allan DO LAB - MICRO GENERA L ORDERABLES LABORATORY [facility] [address] [facility] (1st floor, no room number) [place] [address], [facility] * EKG 12 lead (04/02/2024 3:29 PM CDT) Systolic Blood Pressure mmHg RADIOLOGY RESULTS Diastolic Blood Pressure mmHg RADIOLOGY RESULTS Ventricular Rate 76 BPM RAD IOLOGY RESULTS Atrial Rate 76 BPM RADIOLOG Y RESULTS OK Interval 136 ms RADIOLOG Y RESULTS QRS Duration 90 ms RADIOLO GY RESULTS QT 568 ms RADIOLOGY RESULTS QTc 639 ms RADIOLOGY RESULTS P [place] 64 degrees RADIOLOGY RESULTS R AXIS 86 degrees RADIOLOGY RESULTS T [place] 88 degrees RADIOLOGY RESULTS Interpretation ECG Sinus [...] Confirmed by - EMERGENCY ROOM, PHYSICIAN ([id number]), society editor Kirill Montero ([id number]) on 04/02/2024 3:42:03 PM RADIOLOGY RESULTS 04/02/2024 3:29 PM CDT 04/02/2024 3:42 PM CDT Amy Lott MD ECG ORDERABLES RADIOLOGY RESULTS * (ABNORMAL) CBC with platelets and differential (04/02/2024 1:42 PM CDT) WBC Count 8.2 4.0 - 11.0 10e3/uL 04/02/2024 2:00 PM CDT [facility] RBC Count 3.86 3.80 - 5.20 10e6/uL 04/02/2024 2:00 PM CDT [facility] Hemoglobin 10.7(L) 11.7 - 15.7 g/dL 04/02/2024 2:00 PM CDT [facility] Hematocrit 32.2(L) 35.0 - 47.0 % 04/02/2024 2:00 PM CDT [facility] MCV 83 78 - 100 fL 04/02/2024 2:00 PM CDT [facility] MCH 27.7 26.5 - 33.0 pg 04/02/2024 2:00 PM CDT [facility] MCHC 33.2 31.5 - 36.5 g/dL 04/02/2024 2:00 PM CDT [facility] RDW 13.8 10.0 - 15.0 % 04/02/2024 2:00 PM CDT [facility] Platelet Count 558(H) 150 - 450 10e3/uL 04/02/2024 2:00 PM CDT [facility] % Neutrophils 64 % 04/02/2024 2:00 PM CDT [facility] % Lymphocytes 25 % 04/02/2024 2:00 PM CDT [facility] % Monocytes 8 % 04/02/2024 2:00 PM CDT [facility] % Eosinophils 2 % 04/02/2024 2:00 PM CDT [facility] % Basophils 1 % 04/02/2024 2:00 PM CDT [facility] % Immature Granulocytes 0 % 04/02/2024 2:00 PM CDT [facility] NRBCs per 100 WBC 0 <1 /100 024 2:00 PM CDT [facility] Absolute Neutrophils 5.3 1.6 - 8.3 10e3/uL 04/02/2024 2:00 PM CDT [facility] Absolute Lymphocytes 2.0 0.8 - 5.3 10e3/uL 04/02/2024 2:00 PM CDT [facility] Absolute Monocytes 0.6 0.0 - 1.3 10e3/uL 04/02/2024 2:00 PM CDT [facility] Absolute Eosinophils 0.2 0.0 - 0.7 10e3/uL 04/02/2024 2:00 PM CDT [facility] Absolute Basophils 0.1 0.0 - 0.2 10e3/uL 04/02/2024 2:00 PM CDT [facility] Absolute Immature Granulocytes 0.0 <=0.4 10e3/uL 04/02/2024 2:00 PM CDT [facility] Absolute NRBCs 0.0 10e3/uL 04/02/2024 2:00 PM CDT [facility] Blood BLOOD SPECIMEN / Unknown Venipuncture / Unknown 04/02/2024 1:42 PM CDT 04/02/2024 1:50 PM CDT Amy Lott MD LAB - BLOOD [facility] Organization Address City/State/ZIP Co de Phone Number [facility] [address] Lab (1st floor, no room number) [place] [address], [facility] * TSH with free T4 reflex (04/02/2024 1:42 PM CDT) [facility] TSH 1.74 0.30 - 4.20 uIU/mL 04/02/2024 2:21 PM CDT [facility] Blood BLOOD SPECIMEN / Unknown Venipuncture / Unknown 04/02/2024 1:42 PM CDT 04/02/2024 1:50 PM CDT Amy Lott MD LAB - BLOOD [place] LABORATORY [facility] [address] Lab (1st floor, no room number) [address] [place] [address] * (ABNORMAL) Magnesium (04/02/2024 1:42 PM CDT) [facility] Magnesium 2.4(H) 1.7 - 2.3 mg/dL 04/02/2024 2:15 PM CDT LABORATORY Blood BLOOD SPECIMEN / Unknown Venipuncture / Unknown 04/02/2024 1:42 PM CDT 04/02/2024 1:50 PM CDT Amy Lott MD LAB - BLOOD [place] Performing Organization Address City/[facility]/ZIP Co de Phone Number LABORATORY [facility] Lab [address] Lab (1st floor, no room number) [address] * (ABNORMAL) Basic metabolic panel (04/02/2024 1:42 PM CDT) [facility] Sodium 134(L) 135 - 145 mmol/L 04/02/2024 2:37 PM CDT LABORATORY Potassium 2.3(LL) 3.4 - 5.3 mmol/L 04/02/2024 2:37 PM CDT LABORATORY Comment:Result confirmed by repeat test. Chloride 76(L) 98 - 107 mmol/L 04/02/2024 2:37 PM CDT LABORATORY Carbon Dioxide (CO2) 43(H) 22 - 29 mmol/L 04/02/2024 2:37 PM CDT LABORATORY Anion Gap 15 7 - 15 mmol/L 04/02/2024 2:37 PM CDT [facility] Urea Nitrogen 43.9(H) 6.0 - 20.0 mg/dL 04/02/2024 2:37 PM CDT [facility] Creatinine 2.67(H) 0.51 - 0.95 mg/dL 04/02/2024 2:37 PM CDT [facility] GFR Estimate 24(L) >60 mL/min/1.7 3m2 04/02/2024 2:37 PM CDT [facility] Comment:eGFR calculated usin 2020 CKD-EPI equation. Calcium 10.6(H) 8.8 - 10.4 mg/dL 04/02/2024 2:37 PM CDT [facility] Comment:Reference intervals for this test were updated on 01/08/2024 to reflect our healthy population more accurately. There may be differences in the flagging of prior results with similar values performed with this method. Those prior results can be interpreted in the context of the updated reference intervals. Glucose 113(H) 70 - 99 mg/dL 04/02/2024 2:37 PM CDT LABORATORY Blood BLOOD SPECIMEN / Unknown Venipuncture / Unknown 04/02/2024 1:42 PM CDT 04/02/2024 1:50 PM CDT Amy Lott MD LAB - BLOOD [facility] Organization Address City/State/ZIP Co de Phone Number LABORATORY [facility] [address] Lab (1st floor, no room number) [place] [address], [facility] * EKG 12-lead, tracing only (04/02/2024 1:33 PM CDT) Systolic Blood Pressure mmHg RADIOLOGY RESULTS Diastolic Blood Pressure mmHg RADIOLOGY RESULTS Ventricular Rate 91 BPM RAD IOLOGY RESULTS Atrial Rate BPM RADIOLOG Y RESULTS OK Interval ms RADIOLOG Y RESULTS QRS Duration 84 ms RADIOLO GY RESULTS QT 250 ms RADIOLOGY RESULTS QTc 307 ms RADIOLOGY RESULTS P [place] degrees RADIOLOGY RESULTS R AXIS 85 degrees RADIOLOGY RESULTS T [place] 260 degrees RADIOLOGY RESULTS Interpretation ECG Accelerated Junctional rhythm Left ventricular hypertrophy with repolarization abnormality ( Sokolow-Hernandez ) Abnormal ECG When compared with ECG of 12-Sep-2024 20:33, Junctional rhythm has replaced Sinus rhythm T wave inversion now evident in Inferior leads T wave inversion more evident in Anterolateral leads QT has shortened Unconfirmed report - interpretation of this ECG is computer generated - see medical record for final interpretation Confirmed by - EMERGENCY ROOM, PHYSICIAN ([id number]), society editor Kirill Montero ([id number]) on 04/02/2024 1:41:48 PM RADIOLOGY RESULTS 04/02/2024 1:33 PM CDT 04/02/2024 1:41 PM CDT Amy Lott MD ECG ORDERABLES RADIOLOGY RESULTS documented in this encounter Visit Diagnoses Diagnosis Hypokalemia Hypopotassemia BARBARA (acute kidney injury) (H) Acute kidney failure, unspecified Chronic pain in female pelvis Unspecified symptom associated with female genital organs Hypokalemia Hypopotassemia BARBARA (acute kidney injury) (H) Acute kidney failure, unspecified Chronic pain in female pelvis Unspecified symptom associated with female genital organs documented in this encounter Administered Medications Inactive Administered Medications - up to 3 most recent administrations Medication Order MAR Action Action Date Dose Rate Site 0.9% sodium chloride + KCl 20 mEq/L infusion at 100 mL/hr, Intravenous, CONTINUOUS, Starting on Sun04/02/24 at 1800, Until Sun04/03/24 at 0754 Rate/Dose Verify 04/03/2024 8:06 AM CDT 100 mL /hr $New Bag 04/03/2024 4:47 AM CDT 100 mL/hr $New Bag 04/02/2024 6:24 PM CDT 100 mL/hr acetaminophen (TYLENOL) tablet 975 mg 975 mg, Oral, 3 TIMES DAILY, First dose on Sun04/02/24 at 1830, Maximum acetaminophen dose from all sources = 75 mg/kg/day not to exceed 4 grams/day. $Given 04/04/2024 6:45 AM CDT 975 mg $Given 04/03/2024 6:30 PM CDT 975 mg $Given 04/03/2024 11:47 AM CDT 975 mg ferrous sulfate (FEROSUL) tablet 325 mg 325 mg, Oral, 3 TIMES DAILY WITH MEALS, First dose (after last modification) on Sun04/02/24 at 1830, DO NOT CRUSH. Absorbed best on an empty stomach. If stomach upset occurs, can take with meals. $Given 04/04/2024 8:51 AM CDT 325 mg $Given 04/03/2024 6:30 PM CDT 325 mg $Given 04/03/2024 11:47 AM CDT 325 mg gabapentin (NEURONTIN) capsule 100 mg 100 mg, Oral, 3 TIMES DAILY, First dose on Sun04/02/24 at 2000 $Given 04/04/2024 8:51 AM CDT 100 mg $Given 04/03/2024 8:41 PM CDT 100 mg $Given 04/03/2024 1:56 PM CDT 100 mg HYDROmorphone (DILAUDID) injection 0.4 mg 0.4 mg, Intravenous, ONCE, On [facility] 04/03/24 at 1030, For 1 dose $Given 04/03/2024 10:10 AM CDT 0.4 mg HYDROmorphone (DILAUDID) tablet 2 mg 2 mg, Oral, EVERY 4 HOURS PRN, moderate pain, Starting on Sun04/03/24 at 1002 HYDROmorphone (DILAUDID) tablet 4 mg 4 mg, Oral, ONCE, On Sun04/02/24 at 1400, For 1 dose $Given 04/02/2024 2:10 PM CDT 4 mg HYDROmorphone (DILAUDID) tablet 4 mg 4 mg, Oral, EVERY 4 HOURS PRN, severe pain, Starting on Emiliana 04/03/24 at 1002 $Given 04/04/2024 8:57 AM CDT 4 mg $Given 04/04/2024 2:33 AM CDT 4 mg $Given 04/03/2024 10:40 PM CDT 4 mg LORazepam (ATIVAN) tablet 0.5 mg 0.5 mg, Oral, ONCE, On Sun04/02/24 at 1400, For 1 dose $Given 04/02/2024 2:10 PM CDT 0.5 mg magnesium oxide (MAG-OX) tablet 400 mg 400 mg, Oral, 3 TIMES DAILY, First dose on Sun04/02/24 at 2000 $Given 04/04/2024 8:51 AM CDT 400 mg $Given 04/03/2024 8:41 PM CDT 400 mg $Given 04/03/2024 1:56 PM CDT 400 mg melatonin tablet 5 mg 5 mg, Oral, AT BEDTIME PRN, sleep, Starting on Sun04/02/24 at 1736, Do not give unless at least 6 hours of uninterrupted sleep is expected. If patient has multiple medications ordered PRN sleep/insomnia, offer melatonin first. $Given 04/02/2024 10:23 PM CDT 5 mg methocarbamol (ROBAXIN) tablet 500 mg 500 mg, Oral, 4 TIMES DAILY PRN, muscle spasms, Starting on Sun04/02/24 at 1815 $Given 04/04/2024 4:34 AM CDT 500 mg $Given 04/03/2024 10:40 PM CDT 500 mg $Given 04/03/2024 3:37 PM CDT 500 mg multivitamin, therapeutic (THERA-VIT) tablet 1 tablet 1 tablet, Oral, DAILY, First dose on Emiliana 04/03/24 at 0800 $Given 04/04/2024 8:51 AM CDT 1 tablet $Given 04/03/2024 8:34 AM CDT 1 tablet naloxone (NARCAN) injection 0.2 mg 0.2 mg, Intravenous, EVERY 2 MIN PRN, opioid reversal, Starting on Sun04/02/24 at 1745, Administer intravenous route when available and notify [...] 2 MIN PRN, opioid reversal, Starting on Sun04/02/24 at 1745, Administer intramuscular if an intravenous route is [...] 2 MIN PRN, opioid reversal, Starting on Sun04/02/24 at 1745, Administer intravenous route when available and notify [...] 2 MIN PRN, opioid reversal, Starting on Sun04/02/24 at 1745, Administer intramuscular if an intravenous route is [...] 6 HOURS PRN, nausea, vomiting, Starting on Sun04/02/24 at 1736, This is Step 1 of nausea and [...] vomiting, Administer over 2-5 Minutes, Starting on Sun04/02/24 at 1736, Give IF patient unable to tolerate oral medication. This is Step 1 of nausea and vomiting management. If nausea not resolved in 15 minutes, go to Step 2 prochlorperazine (COMPAZINE). oxyCODONE (ROXICODONE) tablet 5 mg 5 mg, Oral, EVERY 4 HOURS PRN, severe pain, IF pain not managed with non-pharmacological and non-opioid interventions, Starting on Sun04/02/24 at 1736, May use concomitant with non-opioid analgesics. $Given 04/03/2024 8:34 AM CDT 5 mg $Given 04/03/2024 3:13 AM CDT 5 mg $Given 04/02/2024 10:23 PM CDT 5 mg potassium chloride 10 mEq in 100 mL sterile water infusion 10 mEq, Intravenous, Administer over 60 Minutes, at 100 mL/hr, ONCE, On Sun04/02/24 at 1445, For 1 dose $New Bag 04/02/2024 3:19 PM CDT 10 mEq 100 mL/hr potassium chloride deanne ER (KLOR-CON M20) CR tablet 20 mEq 20 mEq, Oral, ONCE, On Sun04/02/24 at 2200, For 1 dose, Potassium level less than 2.7 mmol/L Ordered from the Potassium replacement order set. DO NOT CRUSH, Potassium Replacement: Potassium level LESS than 2.7 mmol/L, Recheck: Potassium level 4 hours AFTER last oral dose $Given 04/02/2024 10:23 PM CDT 20 mEq potassium chloride deanne ER (KLOR-CON M20) CR tablet 20 mEq 20 mEq, Oral, ONCE, On Emiliana 04/03/24 at 1430, For 1 dose, Potassium level 3.1 - 3.4 mmol/L Ordered from the Potassium replacement order set. DO NOT CRUSH, Potassium Replacement: Potassium level 3.1-3.4 mmol/L, Recheck: Potassium level 4 hours AFTER last oral dose $Given 04/03/2024 3:29 PM CDT 20 mEq potassium chloride deanne ER (KLOR-CON M20) CR tablet 40 mEq 40 mEq, Oral, ONCE, On Sun04/02/24 at 1445, For 1 dose, DO NOT CRUSH $Given 04/02/2024 3:15 PM CDT 40 mEq potassium chloride deanne ER (KLOR-CON M20) CR tablet 40 mEq 40 mEq, Oral, ONCE, On Sun04/02/24 at 2000, For 1 dose, Potassium level less than 2.7 mmol/L Ordered from the Potassium replacement order set. DO NOT CRUSH, Potassium Replacement: Potassium level LESS than 2.7 mmol/L, Recheck: Potassium level 4 hours AFTER last oral dose $Given 04/02/2024 8:03 PM CDT 40 mEq potassium chloride deanne ER (KLOR-CON M20) CR tablet 40 mEq 40 mEq, Oral, ONCE, On Sun04/03/24 at 0600, For 1 dose, Potassium level 2.7 - 3 mmol/L Ordered from the Potassium replacement order set. DO NOT CRUSH, Potassium Replacement: Potassium level 2.7-3 mmol/L, Recheck: Potassium level 4 hours AFTER last oral dose $Given 04/03/2024 6:36 AM CDT 40 mEq potassium chloride deanne ER (KLOR-CON M20) CR tablet 40 mEq 40 mEq, Oral, ONCE, On Emiliana 04/03/24 at 0800, For 1 dose, Potassium level 2.7 - 3 mmol/L Ordered from the Potassium replacement order set. DO NOT CRUSH, Potassium Replacement: Potassium level 2.7-3 mmol/L, Recheck: Potassium level 4 hours AFTER last oral dose $Given 04/03/2024 8:34 AM CDT 40 mEq potassium chloride ER (K-TAB/KLOR-CON) CR tablet 10 mEq 10 mEq, Oral, ONCE, On Emiliana 04/03/24 at 2100, For 1 dose, Potassium level 3.5-3.8 mmol/L Ordered from the Potassium replacement order set. DO NOT CRUSH., Potassium Replacement: Potassium level 3.5-3.8 mmol/L, Recheck: Potassium level next AM $Given 04/03/2024 8:41 PM CDT 10 mEq potassium chloride ER (K-TAB/KLOR-CON) CR tablet 80 mEq 80 mEq, Oral, 3 TIMES DAILY, First dose on Sun04/02/24 at 2000, DO NOT CRUSH. $Given 04/04/2024 8:51 AM CDT 80 mEq $Given 04/03/2024 8:41 PM CDT 80 mEq $Given 04/03/2024 2:03 PM CDT 80 mEq senna-docusate (SENOKOT-S/PERICOLACE) 8.6-50 MG per tablet 1 tablet 1 tablet, Oral, 2 TIMES DAILY PRN, constipation, Starting on Sun04/02/24 at 1736, If no bowel movement in 24 hours, [...] 2 TIMES DAILY PRN, constipation, Starting on Sun04/02/24 at 1736, IF more than 1 constipation PRN medication is ordered, administer step-aguilar as indicated, moving to the next step ONLY if prior step ineffective. Step 1: senna-docusate (SENOKOT-S; PERICOLACE) OR bisacodyl (DULCOLAX) EC tablet Step 2: polyethylene glycol (MIRALAX/GLYCOLAX) Step 3: bisacodyl (DULCOLAX) suppository Step 4: enema Hold for loose stools. sodium chloride (PF) 0.9% PF flush 3 mL 3 mL, Intracatheter, EVERY 8 HOURS, First dose on Sun04/02/24 at 1800, to lock peripheral IV dormant line $Given 04/04/2024 8:58 AM CDT 3 mLs $Given 04/04/2024 2:33 AM CDT 3 mLs $Given 04/03/2024 3:55 PM CDT 3 mLs sodium chloride 0.9% BOLUS 1,000 mL Intravenous, 1,000 mL, ONCE, at 1,000 mL/hr, Administer over 1 Hours, On Sun04/02/24 at 1400, For 1 dose $New Bag 04/02/2024 2:07 PM CDT 1,000 mLs 1000 mL/hr spironolactone (ALDACTONE) tablet 25 mg 25 mg, Oral, DAILY, First dose on Emiliana 04/03/24 at 1130 $Given 04/04/2024 8:51 AM CDT 25 mg $Given 04/03/2024 11:47 AM CDT 25 mg documented in this encounter Active and Recently Administered Medications Times are shown in CDT. Scheduled Medication Order 04/02/2024 04/03/2024 04/04/2024 acetaminophen (TYLENOL) tablet 975 mg 975 mg, Oral, 3 TIMES DAILY, First dose on Sun04/02/24 at 1830, Maximum acetaminophen dose from all sources = 75 mg/kg/day not to exceed 4 grams/day. 1823 ($Given - Provider: Pooja Hearn RN) 0635 ($Given - Provider: Moon Huizar RN)1147 ($Given - Provider: Teressa Cole RN)1830 ($Given - Provider: Alejandra Hearn RN) 0645 ($Given - Provider: Irvin Zeng RN) ferrous sulfate (FEROSUL) tablet 325 mg 325 mg, Oral, 3 TIMES DAILY WITH MEALS, First dose (after last modification) on Sun04/02/24 at 1830, DO NOT CRUSH. Absorbed best on an empty stomach. If stomach upset occurs, can take with meals. 183 (Not Given - Provider: Pooja Hearn RN - Reason: Patient/family refused) 0834 ($Given - Provider: Teressa Cole RN)1147 ($Given - Provider: Teressa Cole RN)1830 ($Given - Provider: Alejandra Hearn RN) 0851 ($Given - Provider: Birgit Lima RN) gabapentin (NEURONTIN) capsule 100 mg 100 mg, Oral, 3 TIMES DAILY, First dose on Sun04/02/24 at 1999 1941 ($Given - Provider: Moon Huizar RN) 0834 ($Given - Provider: Teressa Cole RN)1356 ($Given - Provider: Teressa Cole RN)2040 ($Given - Provider: Irvin Zeng RN) 0851 ($Given - Provider: Birgit Lima RN) HYDROmorphone (DILAUDID) injection 0.4 mg (COMPLETED) 0.4 mg, Intravenous, ONCE, On Sun04/03/24 at 1030, For 1 dose 1010 ($Given - Provider: Teressa Cole RN) HYDROmorphone (DILAUDID) tablet 4 mg (COMPLETED) 4 mg, Oral, ONCE, On Sun04/02/24 at 1400, For 1 dose 1410 ($Given - Provider: Roya Crabtree RN) LORazepam (ATIVAN) tablet 0.5 mg (COMPLETED) 0.5 mg, Oral, ONCE, On Sun04/02/24 at 1400, For 1 dose 1410 ($Given - Provider: Roya Crabtree RN) magnesium oxide (MAG-OX) tablet 400 mg 400 mg, Oral, 3 TIMES DAILY, First dose on Sun04/02/24 at 1999 1941 ($Given - Provider: Moon Huizar RN) 0834 ($Given - Provider: Teressa Cole RN)1356 ($Given - Provider: Teressa Cole RN)2041 ($Given - Provider: Irvin Zeng RN) 0851 ($Given - Provider: Birgit Lima RN) multivitamin, therapeutic (THERA-VIT) tablet 1 tablet 1 tablet, Oral, DAILY, First dose on Emiliana 04/03/24 at 0800 0834 ($Given - Provider: Teressa Cole RN) 0851 ($Given - Provider: Birgit Lima RN) potassium chloride 10 mEq in 100 mL sterile water infusion (COMPLETED) 10 mEq, Intravenous, Administer over 60 Minutes, at 100 mL/hr, ONCE, On Sun04/02/24 at 1445, For 1 dose 1519 ($New Bag - Provider: Roya Crabtree RN) potassium chloride deanne ER (KLOR-CON M20) CR tablet 20 mEq (COMPLETED) 20 mEq, Oral, ONCE, On Sun04/02/24 at 2200, For 1 dose, Potassium level less than 2.7 mmol/L Ordered from the Potassium replacement order set. DO NOT CRUSH, Potassium Replacement: Potassium level LESS than 2.7 mmol/L, Recheck: Potassium level 4 hours AFTER last oral dose 2223 ($Given - Provider: Moon Huizar RN) potassium chloride deanne ER (KLOR-CON M20) CR tablet 20 mEq (COMPLETED) 20 mEq, Oral, ONCE, On Emiliana 04/03/24 at 1430, For 1 dose, Potassium level 3.1 - 3.4 mmol/L Ordered from the Potassium replacement order set. DO NOT CRUSH, Potassium Replacement: Potassium level 3.1-3.4 mmol/L, Recheck: Potassium level 4 hours AFTER last oral dose 1529 ($Given - Provider: Teressa Cole RN) potassium chloride deanne ER (KLOR-CON M20) CR tablet 40 mEq (COMPLETED) 40 mEq, Oral, ONCE, On Sun04/02/24 at 1445, For 1 dose, DO NOT CRUSH 1515 ($Given - Provider: Roya Crabtree RN) potassium chloride deanne ER (KLOR-CON M20) CR tablet 40 mEq (COMPLETED) 40 mEq, Oral, ONCE, On Sun04/02/24 at 2000, For 1 dose, Potassium level less than 2.7 mmol/L Ordered from the Potassium replacement order set. DO NOT CRUSH, Potassium Replacement: Potassium level LESS than 2.7 mmol/L, Recheck: Potassium level 4 hours AFTER last oral dose 2002 ($Given - Provider: Moon Huizar RN) potassium chloride deanne ER (KLOR-CON M20) CR tablet 40 mEq (COMPLETED) 40 mEq, Oral, ONCE, On Emiliana 04/03/24 at 0600, For 1 dose, Potassium level 2.7 - 3 mmol/L Ordered from the Potassium replacement order set. DO NOT CRUSH, Potassium Replacement: Potassium level 2.7-3 mmol/L, Recheck: Potassium level 4 hours AFTER last oral dose 0636 ($Given - Provider: Moon Huizar RN) potassium chloride deanne ER (KLOR-CON M20) CR tablet 40 mEq (COMPLETED) 40 mEq, Oral, ONCE, On Sun04/03/24 at 0800, For 1 dose, Potassium level 2.7 - 3 mmol/L Ordered from the Potassium replacement order set. DO NOT CRUSH, Potassium Replacement: Potassium level 2.7-3 mmol/L, Recheck: Potassium level 4 hours AFTER last oral dose 0834 ($Given - Provider: Teressa Cole RN) potassium chloride ER (K-TAB/KLOR-CON) CR tablet 10 mEq (COMPLETED) 10 mEq, Oral, ONCE, On Sun04/03/24 at 2100, For 1 dose, Potassium level 3.5-3.8 mmol/L Ordered from the Potassium replacement order set. DO NOT CRUSH., Potassium Replacement: Potassium level 3.5-3.8 mmol/L, Recheck: Potassium level next AM 2040 ($Given - Provider: Irvin Zeng RN) potassium chloride ER (K-TAB/KLOR-CON) CR tablet 80 mEq 80 mEq, Oral, 3 TIMES DAILY, First dose on Sun04/02/24 at 2000, DO NOT CRUSH. 1943 ($Given - Provider: Moon Huizar RN) 0833 ($Given - Provider: Teressa Cole RN)1403 ($Given - Provider: Teressa Cole, DEVIN)204 ($Given - Provider: Irvin Zeng, DEVIN) 0851 ($Given - Provider: Birgit Perea V RN) sodium chloride (PF) 0.9% PF flush 3 mL 3 mL, Intracatheter, EVERY 8 HOURS, First dose on Sun04/02/24 at 1800, to lock peripheral IV dormant line 1832 (Not Given - Provider: Pooja Hearn RN - Reason: IV Infusing) 0147 (Not Given - Provider: Moon Huizar RN - Reason: Patient/family refused)0936 (Not Given - Provider: Pooja Hearn RN - Reason: IV Infusing)1555 ($Given - Provider: Alejandra Hearn RN - Comment: given with stopping of IV K+ just now) 0233 ($Given - Provider: Irvin Zeng, RN)0858 ($Given - Provider: Birgit Lima RN) sodium chloride 0.9% BOLUS 1,000 mL (COMPLETED) Intravenous, 1,000 mL, ONCE, at 1,000 mL/hr, Administer over 1 Hours, On Sun04/02/24 at 1400, For 1 dose 1407 ($New Bag - Provider: Roya Crabtree RN)1513 (Stopped - Provider: Roya Crabtree RN) spironolactone (ALDACTONE) tablet 25 mg 25 mg, Oral, DAILY, First dose on Sun04/03/24 at 1130 1147 ($Given - Provider: Teressa Cole RN) 0851 ($Given - Provider: Birgit Lima RN) Continuous Medication Order 04/02/2024 04/03/2024 04/04/2024 0.9% sodium chloride + KCl 20 mEq/L infusion (CANCELED) at 100 mL/hr, Intravenous, CONTINUOUS, Starting on Sun04/02/24 at 1800, Until Sun04/03/24 at 0754 1824 ($New Bag - Provider: Pooja Hearn RN) 0447 ($New Bag - Provider: Moon uHizar, RN)0806 (Rate/Dose Verify - Provider: Pooja Hearn RN - Comment: continue until bag is empty per Dr. Melara to not waste fluid and then d/c)5329 (Stopped - Provider: Irvin Zeng, DEVIN) PRN Medication Order 04/02/2024 04/03/2024 04/04/2024 bisacodyl (DULCOLAX) suppository 10 mg 10 mg, Rectal, DAILY PRN, constipation, Starting on Sun04/02/24 at 1736, IF more than 1 constipation PRN medication is ordered, administer step-aguilar as indicated, moving to the next step ONLY if prior step ineffective. Step 1: senna-docusate (SENOKOT-S; PERICOLACE) OR bisacodyl (DULCOLAX) EC tablet Step 2: polyethylene glycol (MIRALAX/GLYCOLAX) Step 3: bisacodyl (DULCOLAX) suppository Step 4: enema Hold for loose stools. calcium carbonate (TUMS) chewable tablet 1,000 mg 1,000 mg, Oral, 4 TIMES DAILY PRN, heartburn, Starting on Sun04/02/24 at 1736 HYDROmorphone (DILAUDID) tablet 2 mg(Linked Group 1) 2 mg, Oral, EVERY 4 HOURS PRN, moderate pain, Starting on Sun04/03/24 at 1002 1355 (See Alternative - Provider: Teressa Cole RN)1830 (See Alternative - Provider: Alejandra Hearn RN)2240 (See Alternative - Provider: Irvin Zeng RN) 0233 (See Alternative - Provider: Irvin Zeng RN)0857 (See Alternative - Provider: Birgit Liam RN) HYDROmorphone (DILAUDID) tablet 4 mg(Linked Group 1) 4 mg, Oral, EVERY 4 HOURS PRN, severe pain, Starting on Sun04/03/24 at 1002 1355 ($Given - Provider: Teressa Cole RN)1830 ($Given - Provider: Alejandra Hearn RN)2240 ($Given - Provider: Irvin Zeng RN) 0233 ($Given - Provider: Irvin Zeng RN)0857 ($Given - Provider: Birgit Lima RN) hydrOXYzine HCl (ATARAX) tablet 25-50 mg 25-50 mg, Oral, EVERY 6 HOURS PRN, other, adjuvant pain, Starting on Sun04/03/24 at 1238, On hold since Sun04/03/2024 at 1239 until manually unheld 1239 (Held by provider - Provider: Neal Melara MD - Reason: Other) 1152 (Unheld by provider - Provider: Orders Generic Provider) lidocaine (LMX4) cream Topical, EVERY 1 HOUR PRN, pain, with VAD insertion, Starting on Sun04/02/24 at 1736, Apply at least 30 minutes prior to VAD insertion in divided doses as needed for size of site for insertion. MAX Dose: 2.5 g (?? of 5 g tube) Do NOT give if patient has a history of allergy to any local anesthetic or any makr product. Do NOT use both lidocaine intradermal/subcutaneous injection and the lidocaine cream on the same site. lidocaine 1 % 0.1-1 mL 0.1-1 mL, Other, EVERY 1 HOUR PRN, mild pain with VAD insertion, Starting on Sun04/02/24 at 1736, MAX dose 1 mL subcutaneous OR intradermal along the side of the vein in divided doses as needed for VAD insertion. Do NOT give if patient has a history of allergy to any local anesthetic or any mark product. Do NOT use both lidocaine intradermal/subcutaneous injection and the lidocaine cream on the same site. melatonin tablet 5 mg 5 mg, Oral, AT BEDTIME PRN, sleep, Starting on Sun04/02/24 at 1736, Do not give unless at least 6 hours of uninterrupted sleep is expected. If patient has multiple medications ordered PRN sleep/insomnia, offer melatonin first. 2222 ($Given - Provider: Moon Huizar RN) methocarbamol (ROBAXIN) tablet 500 mg 500 mg, Oral, 4 TIMES DAILY PRN, muscle spasms, Starting on Sun04/02/24 at 1815 2002 ($Given - Provider: Moon Huizar RN) 0314 ($Given - Provider: Moon Huizar RN)1537 ($Given - Provider: Alejandra Hearn RN)2240 ($Given - Provider: Irvin Zeng, DEVIN) 0434 ($Given - Provider: Irvin Zeng, RN) naloxone (NARCAN) injection 0.2 mg(Linked Group 2) 0.2 mg, Intravenous, EVERY 2 MIN PRN, opioid reversal, Starting on Sun04/02/24 at 1745, Administer intravenous route when available and notify [...] 2 MIN PRN, opioid reversal, Starting on Sun04/02/24 at 1745, Administer intramuscular if an intravenous route is [...] 2 MIN PRN, opioid reversal, Starting on Sun04/02/24 at 1745, Administer intravenous route when available and notify [...] 2 MIN PRN, opioid reversal, Starting on Sun04/02/24 at 1745, Administer intramuscular if an intravenous route is [...] 6 HOURS PRN, nausea, vomiting, Starting on Sun04/02/24 at 1736, This is Step 1 of nausea and [...] vomiting, Administer over 2-5 Minutes, Starting on Sun04/02/24 at 1736, Give IF patient unable to tolerate oral medication. This is Step 1 of nausea and vomiting management. If nausea not resolved in 15 minutes, go to Step 2 prochlorperazine (COMPAZINE). oxyCODONE (ROXICODONE) tablet 5 mg (CANCELED) 5 mg, Oral, EVERY 4 HOURS PRN, severe pain, IF pain not managed with non-pharmacological and non-opioid interventions, Starting on Sun04/02/24 at 1736, May use concomitant with non-opioid analgesics. 1823 ($Given - Provider: Pooja Hearn RN)2223 ($Given - Provider: Moon Huizar, RN) 0313 ($Given - Provider: Moon Huizar, RN)0834 ($Given - Provider: Teressa Cole RN) polyethylene glycol (MIRALAX) Packet 17 g 17 g, Oral, 2 TIMES DAILY PRN, constipation, Starting on Sun04/02/24 at 1736, IF more than 1 constipation PRN medication is ordered, administer step-aguilar as indicated, moving to the next step ONLY if prior step ineffective. Step 1: senna-docusate (SENOKOT-S; PERICOLACE) OR bisacodyl (DULCOLAX) EC tablet Step 2: polyethylene glycol (MIRALAX/GLYCOLAX) Step 3: bisacodyl (DULCOLAX) suppository Step 4: enema 1 Packet = 17 grams. Mix each gram with at least 1/2 ounce (15 mL) of water - 8 ounces for 17 g dose, 4 ounces for 8.5 g dose, 2 ounces for 4 g dose. Follow with the same volume of water. Hold for loose stools unless being administered as part of a bowel prep regimen or bowel clean out. senna-docusate (SENOKOT-S/PERICOLACE) 8.6-50 MG per tablet 1 tablet(Linked Group 4) 1 tablet, Oral, 2 TIMES DAILY PRN, constipation, Starting on Sun04/02/24 at 1736, If no bowel movement in 24 hours, [...] 2 TIMES DAILY PRN, constipation, Starting on Sun04/02/24 at 1736, IF more than 1 constipation PRN medication is ordered, administer step-aguilar as indicated, moving to the next step ONLY if prior step ineffective. Step 1: senna-docusate (SENOKOT-S; PERICOLACE) OR bisacodyl (DULCOLAX) EC tablet Step 2: polyethylene glycol (MIRALAX/GLYCOLAX) Step 3: bisacodyl (DULCOLAX) suppository Step 4: enema Hold for loose stools. sodium chloride (PF) 0.9% PF flush 3 mL 3 mL, Intracatheter, EVERY 1 MIN PRN, line flush, other, to ensure patency or to lock dormant line, Starting on Sun04/02/24 at 1736 Linked Groups Order Group 1: HYDROmorphone (DILAUDID) tablet 2 mgJump to med 2 mg, Oral, EVERY 4 HOURS PRN, moderate pain, Starting on Emiliana 04/03/24 at 1002 Or HYDROmorphone (DILAUDID) tablet 4 mgJump to med 4 mg, Oral, EVERY 4 HOURS PRN, severe pain, Starting on Emiliana 04/03/24 at 1002 Group 2: naloxone (NARCAN) injection 0.2 mgJump to med 0.2 mg, Intravenous, EVERY 2 MIN PRN, opioid reversal, Starting on Sun04/02/24 at 1745, Administer intravenous route when available and notify [...] 2 MIN PRN, opioid reversal, Starting on Sun04/02/24 at 1745, Administer intravenous route when available and notify [...] 2 MIN PRN, opioid reversal, Starting on Sun04/02/24 at 1745, Administer intramuscular if an intravenous route is [...] 2 MIN PRN, opioid reversal, Starting on Sun04/02/24 at 1745, Administer intramuscular if an intravenous route is [...] 6 HOURS PRN, nausea, vomiting, Starting on Sun04/02/24 at 1736, This is Step 1 of nausea and [...] vomiting, Administer over 2-5 Minutes, Starting on Sun04/02/24 at 1736, Give IF patient unable to tolerate oral medication. This is Step 1 of nausea and vomiting management. If nausea not resolved in 15 minutes, go to Step 2 prochlorperazine (COMPAZINE). Group 4: senna-docusate (SENOKOT-S/PERICOLACE) 8.6-50 MG per tablet 1 tabletJump to med 1 tablet, Oral, 2 TIMES DAILY PRN, constipation, Starting on Sun04/02/24 at 1736, If no bowel movement in 24 hours, [...] 2 TIMES DAILY PRN, constipation, Starting on Sun04/02/24 at 1736, IF more than 1 constipation PRN medication is ordered, administer step-aguilar as indicated, moving to the next step ONLY if prior step ineffective. Step 1: senna-docusate (SENOKOT-S; PERICOLACE) OR bisacodyl (DULCOLAX) EC tablet Step 2: polyethylene glycol (MIRALAX/GLYCOLAX) Step 3: bisacodyl (DULCOLAX) suppository Step 4: enema Hold for loose stools. documented in this encounter Care Teams [employer] Relationship Specialty Start [place] [id number] [place] [address] PCP - General 03/07/24 documented as of this encounter
--- OUTSIDE RECORDS SUMMARY | 2024-04-09 16:54 | XMS_ITS | Encounter Summary ---
Author Organization [facility] Address [address] [place] [id number] Care Team Providers Care Cupola Man Name Role Phone Stephon Corrales MD Primary Care Provider [phone] Gregg Corrales MD Primary Care Provider Reason for Referral * Consultation (Routine: Next available opening) - Pending Review Specialty Diagnoses / Procedures Referred By Miguelangel t Referred To Contact Pain Medicine Diagnoses Closed fracture of single ramus of right pubis, with delayed healing, subsequent encounter Fabian Lara PA-C [address] [place] [address] [facility] [place] REF'L [address] [facility] [address] [address] Referral ID Status Reason Start Date Expiration Date V isits Requested Visits Authorized [id number] Pending Review 03/11/2024 03/11/2025 1 1 Question Answer Reason for Referral: Comprehensive Pain Evaluation Are there any red flags that may impact the assessment or management of the patient? No Red Flags Provider, please review opioid agreement in the process instructions above. Do you agree to these terms? Yes Scheduling Instructions: [facility] will call you to coordinate care as prescribed your provider. If you don? t hear from a customer solutions representative within 2 business days, please call . Additional Information: Right pubis ramis fracture w/delayed healing Comments Please be aware that coverage of these services is subject to the terms and limitations of your health insurance plan. Call member services at your health plan with any benefit or coverage questions. [facility] will call you to coordinate care as prescribed your provider. If you don? t hear from a customer solutions representative within 2 business days, please call . Reason for Visit * Reason Comments Abnormal Labs * Auth/Cert (Routine) Specialty Diagnoses / Procedures Referred By Miguelangel t Referred To Contact Med Surg Diagnoses Hypercalcemia Gitelman syndrome BARBARA (acute kidney injury) (H) BARBARA (acute kidney injury) (H24) Gitelman syndrome Hypercalcemia 3 [facility] [address] [place] [address] Referral ID Status Reason Start Date Expiration Date Visits Re quested Visits Authorized [id number] 1 1 Encounter Details Date Type Department Care Team (Late st Contact Info) Description 03/06/2024 2:04 PM CDT - 03/12/2024 2:06 PM CDT Hospital Encounter [facility] 3 Medical Surgical [address] [place] [address] Ezequiel Valladares MD [facility] [address] [place] [address] Brendan Dominguez MD [address] [place], [place] [id number] Chronic midline low back pain without sciatica (Primary Dx); BARBARA (acute kidney injury) (H); Gitelman syndrome; Hypercalcemia; Closed fracture of single ramus of right pubis, with delayed healing, subsequent encounter; Acute bilateral low back pain without sciatica Discharge Disposition: Home or Self Care Social [...] you got money to buy more? No 03/06/2024 Within the past 12 months, d id the food you bought just not last and you didn? t have money to get more? No 03/06/2024 Housing Stability Answer Date Recorded Do you have housing? (Felice iraheta is defined as stable permanent housing and does not include staying ouside in a car, in a tent, in an abandoned building, in an overnight mcfp, or couch-surfing.) Yes 03/06/2024 Are you worried about losing your housing? No 03/06/2024 Financial Resource Strain Answer Date R ecorded Within the past 12 months, h ave you or your family members you live with been unable to get utilities (heat, electricity) when it was really needed? No 03/06/2024 Transportation Needs Answer Date Record ed Within the past 12 months, h as lack of transportation kept you from medical appointments, getting your medicines, non-medical meetings or appointments, work, or from getting things that you need? No 03/06/2024 Interpersonal Safety Answer Date Record ed Do you feel physically and e motionally safe where you currently live? Yes 03/06/2024 Within the past 12 months, h ave you been hit, slapped, kicked or otherwise physically hurt by someone? No 03/06/2024 Within the past 12 months, h ave you been humiliated or emotionally abused in other ways by your partner or ex-partner? No 03/06/2024 Sex and Gender Information Value Date Recorded Sex Assigned at Not on file Gender Identity Not on file Sexual Orientation Not on file documented as of this encounter Last Filed Vital Signs Vital Sign Reading Time Taken Comments Blood Pressure 101/67 03/12/2024 7:51 AM CDT Pulse 82 03/12/2024 7:51 AM CDT Temperature 36.7 ??C (98 ??F) 03/12/2024 7:51 AM CDT Respiratory Rate 18 03/12/2024 1:01 PM CDT Oxygen Saturation 99% 03/12/2024 7:51 AM CDT Inhaled Oxygen Concentration - - Weight 47.8 kg (105 lb 6.4 oz) 03/12/2024 6:29 A M CDT Height 170.2 cm (5' 7) 03/06/2024 1:37 PM CDT Body Mass Index 16.51 03/06/2024 1:37 PM CDT documented in this encounter Discharge Summaries * Sheila Ferrer DO - 03/12/2024 1:34 PM CDT [facility] Hospitalist Discharge Summary Date of Admission: 03/06/2024 Date of Discharge: 03/12/2024 Discharging Provider: Sheila Ferrer DO Discharge Service: Hospitalist Service Discharge Diagnoses 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 as calculated from the following: Height as of this encounter: 1.702 m (5' 7). Weight as of this encounter: 47.8 kg (105 lb 6.4 oz). Follow-ups Needed After Discharge Follow-up Appointments Follow-up and recommended labs and tests Follow up with primary care provider, Gregg Corrales, within 7 days for hospital follow- up, medication changes, bmp. Follow up with nephrology within the next 1-2 weeks. Unresulted Labs Ordered in the Past 30 Days of this Admission No orders found from 02/05/2024 to 03/07/2024. These results will be followed up by nephrology Discharge Disposition Discharged to home Condition at discharge: Stable Hospital Course Gitelman Syndrome Acute kidney injury on top of chronic kidney disease Acute hypokalemia-improving Acute hypercalcemia, improved Metabolic alkalosis with compensatory respiratory acidosis Admitted with BARBARA and electrolyte abnormalities as noted above. Follows with nephrology outpatient,but still having difficulty finding best balance for potassium replacement. During hospital stay did 24 hour urine study and with assistance of nephrology, will discharge at 80 mEq of potassium supplementation daily and discharge on decreased dose of spironolactone (25 mg) with repeat labs within aweek and follow up with her roller presser operator. Additionally continuing to have pain related to recent pubic ramus fracture, pain service consulted and will establish care with outpatient pain clinic as well as orthopedic follow up . Consultations This Hospital Stay NEPHROLOGY IP CONSULT NEPHROLOGY IP CONSULT SOCIAL WORK IP CONSULT PAIN MANAGEMENT ADULT IP CONSULT Code Status Prior Time Spent on this Encounter ISheila DO, personally saw the patient today and spent greater than 30 minutes discharging this patient. Sheila Ferrer DO [place] [address] MEDICAL SURGICAL [address] [facility] [address] Physical Exam Vital Signs: Weight: 105 lbs 6.4 oz Primary Care Physician Gregg Corrales Discharge Orders Pain Management Clinical Dietetic Technician Referral Reason for your hospital stay You were hospitalized for electrolyte abnormalities related to your renal syndrome. We made some medication adjustments and will have you follow up with your roller presser operator in the next 1-2 weeks. Additionally, referral is sent to establish care in a pain clinic. Follow-up and recommended labs and tests Follow up with primary care provider, Gregg Corrales, within 7 days for hospital follow- up, medication changes, bmp. Follow up with nephrology within the next 1-2 weeks. Activity Your activity upon discharge: activity as tolerated Diet Follow this diet upon discharge: Current Diet:Orders Placed This Encounter Combination Diet Regular Diet Adult Significant Results and Procedures Most Recent 3 CBC's: Recent Labs Lab Test 03/23/24 0511 03/22/24 0524 03/21/24 0635 WBC 7.0 9.8 7.0 HGB 7.9* 8.9* 8.5* MCV 87 86 84 PLT 382 427 390 Most Recent 3 BMP's: Recent Labs Lab Test 03/23/24 0511 03/22/24 0524 03/21/24 1954 03/21/24 0925 03/21/24 0635 NA 142 142 -- -- 138 POTASSIUM 4.9 3.8 3.9 < > 2.9* CHLORIDE 106 100 -- -- 93* CO2 26 30* -- -- 37* BUN 27.6* 29.0* -- -- 37.5* CR 1.34* 1.45* -- -- 2.04* ANIONGAP 10 12 -- -- 8 ELKE 9.6 9.4 -- -- 9.5 GLC 110* 127* -- -- 105* < > = values in this interval not displayed. Most Recent Urinalysis: Recent Labs Lab Test 01/31/232124 COLOR Straw APPEARANCE Clear URINEGLC Negative URINEBILI Negative URINEKETONE Negative SG 1.010 UBLD Negative URINEPH 8.0* PROTEIN 20* NITRITE Negative LEUKEST Negative RBCU <1 WBCU 1 , Results for orders placed or performed during the hospital encounter of 03/06/24 US Renal Complete Non-Vascular Narrative US RENAL COMPLETE NON-VASCULAR 03/06/2024 4:29 PM CLINICAL HISTORY: Acute kidney failure. TECHNIQUE: Routine Bilateral Renal and Bladder Ultrasound. COMPARISON: CT of the abdomen and pelvis 07/20/2021. FINDINGS: RIGHT KIDNEY: 9.4 x 3.6 x 4.9 cm. Normal without hydronephrosis or masses. LEFT KIDNEY: 9.3 x 4.5 x 5.1 cm. Normal without hydronephrosis or masses. BLADDER: Normal. Impression IMPRESSION: Unremarkable renal ultrasound examination. No hydronephrosis. THANH BARGER MD SYSTEM ID: [id number] Discharge Medications Discharge Medication List as of 03/12/2024 1:53 PM START taking these medications Details senna-docusate (SENOKOT-S/PERICOLACE) 8.6-50 MG tablet Take 1 tablet by mouth daily., Disp-30 tablet, R-0, E-Prescribe CONTINUE these medications which have CHANGED Details gabapentin (NEURONTIN) 100 MG capsule Take 1 capsule (100 mg) by mouth 3 times daily., Disp-90 capsule, R-0, E-Prescribe hydrOXYzine HCl (ATARAX) 25 MG tablet Take 1-2 tablets (25-50 mg) by mouth every 6 hours as needed for other (adjuvant pain)., Disp-30 tablet, R-0, E-Prescribe spironolactone (ALDACTONE) 25 MG tablet Take 1 tablet (25 mg) by mouth daily., Disp-30 tablet, R-0,E-Prescribe HYDROmorphone (DILAUDID) 4 MG tablet Take 1 tablet (4 mg) by mouth every 6 hours as needed for moderate to severe pain., Disp-24 tablet, R-0, E-Prescribe potassium chloride deanne ER (KLOR-CON M20) 20 MEQ CR tablet Take 4 tablets (80 mEq) by mouth 2 timesdaily for 14 days., Disp-112 tablet, R-0, E-Prescribe CONTINUE these medications which have NOT CHANGED Details ferrous sulfate 325 (65 Fe) MG TBEC EC tablet Take 325 mg by mouth 3 times daily. With food or snack, Historical magnesium oxide (MAG-OX) 400 MG tablet Take 400 mg by mouth 3 times daily , Historical multivitamin, therapeutic (THERA-VIT) TABS Take 1 tablet by mouth daily, Historical calcium carbonate (TUMS) 500 MG chewable tablet Take 1-2 chew tab by mouth daily as needed for heartburn, Historical methocarbamol (ROBAXIN) 750 MG tablet Take 750 mg by mouth every 6 hours as needed for muscle spasms., Historical Allergies Allergies Allergen Reactions Iron Sucrose Anxiety [...] Other (see comments) documented in this encounter Discharge Instructions * Attachments The following attachments cannot be sent through Care Everywhere. * Hypokalemia (American) * Hypercalcemia (American) * Chronic Pain (American) documented in this encounter Medications at Time [...] by mouth daily spironolactone (ALDACTONE) 25 MG tabletIndications:Gite lman syndrome Take 1 tablet (25 mg) by mouth daily. 30 tablet 03/12/2024 calcium carbonate (TUMS) 500 MG chewable tablet Take 1-2 chew tab by mouth daily as needed for heartburn 03/23/2024 HYDROmorphone (DILAUDID) 4 MG tabletIndications:Clos ed fracture of single ramus of right pubis, with delayed healing, subsequent encounter Take 1 tablet (4 mg) by mouth every 6 hours as needed for moderate to severe pain. 24 tablet 03/12/2024 03/23/2024 methocarbamol (ROBAXIN) 750 MG tablet Take 750 mg by mouth every 6 hours as needed for muscle spasms. 12/31/2023 03/23/2024 potassium chloride deanne ER (KLOR-CON M20) 20 MEQ CR tabletIndications:Gite lman syndrome Take 4 tablets (80 mEq) by mouth 2 times daily for 14 days. 112 tablet 03/12/2024 03/23/2024 senna-docusate (SENOKOT-S/PERICOLACE) 8.6-50 MG tabletIndications:Clos ed fracture of single ramus of right pubis, with delayed healing, subsequent encounter Take 1 tablet by mouth daily. 30 tablet 03/12/2024 03/23/2024 documented as of this encounter Progress Notes * Jose Eduardo Jaeger DO - 03/12/2024 11:59 AM CDT Renal Medicine Progress Note Assessment/Plan: Assessment: 1) BARBARA on likely CKD Patient off fluids now for 3 days. Blood pressure overall stable. GFR 41 and stable last few days on oral intake only. Noted Cystatin C GFR slightly lower than creatinine based estimation but overall in stage IIIb CKD likely going forward. 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 Potassium 3.0 today, was 4.0 yesterday which gets an idea of potassium losses in the last 24 hours.This can be also correlated with the 24 urine collection when this result is reviewed. Calcium today 10.5. Yesterday she had a value of 10.4 with a normal ionized calcium at 5.2. NotablePTH of 57 which could be considered high normal in the setting of a ionized calcium of 5.2. Going forward her calcium and PTH to be monitored to assess if she has early primary hyperparathyroidism. 24-hour urine collection will finish collection today and pending. She can discharge with the results being followed by her primary roller presser operator. Plan/Recs: 1) resuming potassium segmentation, starting 80 mill equivalents twice daily. Needs follow-up labs within a week. 2) would resume on discharge spironolactone but at 25 mg daily. This can be titrated as an outpatient. 3) okay for discharge today after completing 24 urine collection, follow-up with her new primary roller presser operator. Jose Eduardo Jaeger DO [facility] consultants Office: [phone] Interval History: Patient reports he is doing well. Pain better controlled. Asking to go home today. She is still doing her 24-hour urine collection which should be completed later this morning. Medications and Allergies: Current Facility-Administered Medications Medication Dose Route Frequency Provider Last Rate Last Admin acetaminophen (TYLENOL) tablet 975 mg 975 mg Oral TID Irish Tidwell APRN CNS Or acetaminophen (TYLENOL) Suppository 650 mg 650 mg Rectal TID Irish Tidwell APRN COOK CHILL TECHNICIAN gabapentin (NEURONTIN) capsule 100 mg 100 mg Oral At Bedtime Brendan Dominguez MD 100 mg at 03/11/24 2242 gabapentin (NEURONTIN) capsule 100 mg 100 mg Oral TID Sean Freeman MD 100 mg at 839 HYDROmorphone (DILAUDID) tablet 4 mg 4 mg Oral Q6H Irish Tidwell APRN CNS 4 mg at 03/12/24 1125 methocarbamol (ROBAXIN) tablet 750 mg 750 mg Oral TID Irish Tidwell APRN COOK CHILL TECHNICIAN potassium chloride deanne ER (KLOR-CON M20) CR tablet 80 mEq 80 mEq Oral BID Jose Eduardo aJeger DO 80 mEqat 03/12/24 1055 sodium chloride (PF) 0.9% PF flush 3 mL 3 mL Intracatheter Q8H Brendan Dominguez MD 3 mL at 03/12/24 0840 Allergies Allergen Reactions Iron Sucrose Anxiety and [...] (see comments) Physical Exam: Vitals were reviewed BP 101/67 (BP Location: Left arm) Pulse 82 Temp 98 ??F (36.7 ??C) (Oral) Resp 18 Ht 1.702 m(5' 7) Wt 47.8 kg (105 lb 6.4 oz) SpO2 99% BMI 16.51 kg/m?? Wt Readings from Last 3 Encounters: 03/12/24 47.8 kg (105 lb 6.4 oz) 02/01/23 57.2 kg (126 lb 1.6 oz) 11/04/22 62.6 kg (137 lb 14.4 oz) Intake/Output Summary (Last 24 hours) at 03/12/2024 1159 Last data filed at 03/12/2024 1122 Gross per 24 hour Intake 240 ml Output 1300 ml Net -1060 ml GENERAL APPEARANCE: Alert, oriented no distress Exam deferred Data: BMP Recent Labs Lab 03/12/24 0639 03/11/24 1012 03/10/24 0648 03/09/24 1752 NA 139 140 140 142 POTASSIUM 3.0* 4.0 5.4* 4.8 CHLORIDE 97* 100 106 106 ELKE 10.5* 10.4 10.6* 9.7 CO2 26 26 26 25 BUN 40.6* 37.6* 26.5* 25.8* CR 1.68* 1.73* 1.65* 1.55* GLC 83 113* 98 119* CBC Recent Labs Lab 03/06/24 1419 WBC 7.2 HGB 10.3* HCT 31.1* MCV 82 PLT 520* Lab Results Component Value Date AST 22 03/06/2024 ALT 14 03/06/2024 ALKPHOS 140 03/06/2024 BILITOTAL 0.3 03/06/2024 BILICONJ 0.0 04/09/2007 KATHIA <1 (L) 03/18/2007 Lab Results Component Value Date INR 0.93 08/01/2018 Attestation: I have reviewed today's vital signs, notes, medications, labs and imaging. Jose Eduardo Jaeger DO [facility] - Nephrology Office: [phone] * Sheila Ferrer DO - 03/11/2024 3:39 PM CDT [facility] Medicine Progress Note - Hospitalist Service Date of Admission: 03/06/2024 Assessment & Plan Acute kidney injury on top of chronic kidney disease Acute hypokalemia-improving Acute hypercalcemia Metabolic alkalosis with compensatory respiratory acidosis Suspected Gitelman Syndrome -Highly appreciate input from nephrology service -Encourage oral fluid intake. -K+ supplementation regimen per nephrology, continue to hold spironolactone. -24 hour urine started today Anemia-stable Probably on the basis of CKD Minimally displaced Right inferior Pubic ramus fracture History of chronic pain Osteoporosis -Pain control still not optimal -Will adjust oral regimen and increase frequency of IV opioids for severe and uncontrolled pain; pain service consulted given severe pain and previous history of difficult to control pain -Adjuvant medication such as hydroxyzine available -Resumption of patient's gabapentin -May utilize her home regimen of muscle relaxants as needed -She will need to follow-up with her established orthopedic service and endocrinology regarding osteoporosis Diet: Combination Diet Regular Diet Adult DVT Prophylaxis: Pneumatic Compression Devices Patton Catheter: Not present Lines: None Cardiac Monitoring: None Code Status: Full Code Clinically Significant Risk Factors # Hyperkalemia: Highest K = 5.4 mmol/L in last 2 days, will monitor as appropriate # Hypercalcemia: Highest Ca = 10.6 mg/dL in last 2 days, will monitor as appropriate # Cachexia: Estimated body mass index is 16.73 kg/m?? as calculated from the following: Height as of this encounter: 1.702 m (5' 7). Weight as of this encounter: 48.4 kg (106 lb 12.8 oz). Disposition Plan Expected Discharge Date: 03/12/2024 Sheila Ferrer DO Hospitalist Service [facility] Securely message with [employer] (more info) Text page via [employer] Paging/Directory Interval History Still having significant uncontrolled pain. Physical Exam Vital Signs: Temp: 98.6 ??F (37 ??C) Temp src: Oral BP: 109/64 Pulse: 98 Resp: 18 SpO2: 97 % O2 Device: None (Room air) Weight: 106 lbs 12.8 oz General: Very pleasant female HEENT: Sclerae anicteric. Mucous membranes moist. Respiratory: Normal work of breathing. Musculoskeletal: Moving all extremities appropriately. Skin: No rashes or abrasions on exposed skin. Neurologic: Alert. No gross focal deficits. Psychologic: tearful, appropriate Medical Decision Making 47 MINUTES SPENT BY ME on the date of service doing chart review, history, exam, documentation & further activities per the note. Data I have personally reviewed the following data over the past 24 hrs: N/A \ N/A / N/A 140 100 37.6 (H) / 113 (H) 4.0 26 1.73 (H) \ ALT: N/A AST: N/A AP: N/A TBILI: N/A ALB: 4.5 TOT PROTEIN: N/A LIPASE: N/A Imaging results reviewed over the past 24 hrs: No results found for this or any previous visit (from the past 24 hour(s)). * Jose Eduardo Jaeger DO - 03/11/2024 11:29 AM CDT Renal Medicine Progress Note Assessment/Plan: Assessment: 1) BARBARA on likely CKD Patient off fluids now for 2 days. Does have potential trend of declining blood pressure, decliningGFR from 45 to 42 to now 40. 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 Potassium 4.0 with no supplementation in the last 24 hours. Clearly does not need such high doses of supplementation that she has been receiving likely due to lower GFR. Calcium today 10.4 and normal ionized value and high end of the normal range. PTH checked and pending. Does have notable phosphorus of 2.0 today. Will start a 24-hour urine collection Plan/Recs: 1) starting a 24 urine collection for creatinine clearance, quantification of sodium, potassium, calcium excretion. If she is discharged before this is completed she can have this attempted as an outpatient 2) continue watching renal function, labs on oral intake. Encourage high sodium diet. 3) if discharging today, would discharge on empiric spironolactone at reduced dosing than HEALTH COUNSELOR at 25daily and potassium chloride 20 meq twice daily Jose Eduardo Jaeger DO [facility] consultants Office: [phone] Interval History: Patient reports she is unchanged clinically. Still with pain related to her pelvic fracture. No labs drawn at time of visit, ordered in the room. New complaints. Eating and drinking well still. No urine outputs been recorded. Blood pressure this morning 109/64. Medications and Allergies: Current Facility-Administered Medications Medication Dose Route Frequency Provider Last Rate Last Admin gabapentin (NEURONTIN) capsule 100 mg 100 mg Oral At Bedtime Brendan Dominguez MD 100 mg at 03/10/242155 gabapentin (NEURONTIN) capsule 100 mg 100 mg Oral TID Sean Freeman MD 100 mg at [Held by provider] potassium chloride deanne ER (KLOR-CON M20) CR tablet 60 mEq 60 mEq Oral TID Charles Bender MD 60 mEq at 03/09/242137 sodium chloride (PF) 0.9% PF flush 3 mL 3 mL Intracatheter Q8H Brendan Dominguez MD 3 mL at 03/11/24 1006 Allergies Allergen Reactions Iron Sucrose Anxiety and [...] (see comments) Physical Exam: Vitals were reviewed BP 109/64 (BP Location: Right arm) Pulse 98 Temp 98.6 ??F (37 ??C) (Oral) Resp 18 Ht 1.702 m (5' 7) Wt 48.4 kg (106 lb 12.8 oz) SpO2 97% BMI 16.73 kg/m?? Wt Readings from Last 3 Encounters: 03/11/24 48.4 kg (106 lb 12.8 oz) 02/01/23 57.2 kg (126 lb 1.6 oz) 11/04/22 62.6 kg (137 lb 14.4 oz) Intake/Output Summary (Last 24 hours) at 03/11/2024 1129 Last data filed at 03/11/2024 1012 Gross per 24 hour Intake 800 ml Output -- Net 800 ml GENERAL APPEARANCE: Alert, oriented no distress Exam deferred Data: BMP Recent Labs Lab 03/11/24 1012 03/10/24 0648 03/09/24 1752 03/09/24 0718 NA 140 140 142 142 POTASSIUM 4.0 5.4* 4.8 5.5* CHLORIDE 100 106 106 105 ELKE 10.4 10.6* 9.7 10.0 CO2 26 26 25 28 BUN 37.6* 26.5* 25.8* 24.2* CR 1.73* 1.65* 1.55* 1.57* GLC 113* 98 119* 127* CBC Recent Labs Lab 03/06/24 1419 WBC 7.2 HGB 10.3* HCT 31.1* MCV 82 PLT 520* Lab Results Component Value Date AST 22 03/06/2024 ALT 14 03/06/2024 ALKPHOS 140 03/06/2024 BILITOTAL 0.3 03/06/2024 BILICONJ 0.0 04/09/2007 KATHIA <1 (L) 03/18/2007 Lab Results Component Value Date INR 0.93 08/01/2018 Attestation: I have reviewed today's vital signs, notes, medications, labs and imaging. 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 -Encourage oral fluid intake. -K+ supplementation regimen per nephrology, continue to hold spironolactone. -calcium increased today Anemia-stable Probably on the basis of CKD Minimally displaced Right inferior Pubic ramus fracture History of chronic pain Osteoporosis -Pain control still not optimal -Will adjust oral regimen and increase frequency of IV opioids for severe and uncontrolled pain -Adjuvant medication such as hydroxyzine available -Resumption of patient's gabapentin -May utilize her home regimen of muscle relaxants as needed -She will need to follow-up with her established orthopedic service Diet: Combination Diet Regular Diet Adult DVT Prophylaxis: Pneumatic Compression Devices Patton Catheter: Not present Lines: None Cardiac Monitoring: None Code Status: Full Code Clinically Significant Risk Factors # Hyperkalemia: Highest K = 5.5 mmol/L in last 2 days, will monitor as appropriate # Hypercalcemia: Highest Ca = 10.6 mg/dL in last 2 days, will monitor as appropriate # Cachexia: Estimated body mass index is 17.04 kg/m?? as calculated from the following: Height as of this encounter: 1.702 m (5' 7). Weight as of this encounter: 49.4 kg (108 lb 12.8 oz)., PRESENT ON ADMISSION Disposition Plan Expected Discharge Date: 03/11/2024 Sheila Ferrer DO Hospitalist Service [facility] Securely message with [employer] (more info) Text page via [employer] Paging/Directory Interval History Still having significant uncontrolled pain. Physical Exam Vital Signs: Temp: 98.9 ??F (37.2 ??C) Temp src: Oral BP: 130/69 Pulse: 92 Resp: 18 SpO2: 98 % O2 Device: None (Room air) Weight: 108 lbs 12.8 oz General: Very pleasant female HEENT: Sclerae anicteric. Mucous membranes moist. Respiratory: Normal work of breathing. Musculoskeletal: Moving all extremities appropriately. Skin: No rashes or abrasions on exposed skin. Neurologic: Alert. No gross focal deficits. Psychologic: tearful, appropriate Medical Decision Making 47 MINUTES SPENT BY ME on the date of service doing chart review, history, exam, documentation & further activities per the note. Data I have personally reviewed the following data over the past 24 hrs: N/A \ N/A / N/A 140 106 26.5 (H) / 98 5.4 (H) 26 1.65 (H) \ ALT: N/A AST: N/A AP: N/A TBILI: N/A ALB: 4.4 TOT PROTEIN: N/A LIPASE: N/A Imaging results reviewed over the past 24 hrs: No results found for this or any previous visit (from the past 24 hour(s)). * Jose Eduardo Jaeger DO - 03/10/2024 12:24 PM CDT Renal Medicine Progress Note Assessment/Plan: Assessment: 1) BARBARA on likely CKD Patient off fluid since yesterday. States eat and drink well. Bicarbonate has remained stable at 26today. GFR 42 and has been 44 and 45 yesterday. Received total of 200 mEq supplemental potassium chloride with additional slight amount in IV fluids. Potassium this morning 5.4 and has been on the high side last few checks. Patient remains with normal blood pressure, no evidence of volume depletion, hypotension. If can maintain normal blood pressure on oral sodium intake, no need for spironolactone. Potentially has lesspotassium losses in urine with lower GFR. 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 Clear does not need a much potassium chloride septation as she has had in the past if that was actual intake. Plan/Recs: 1) holding further supplemental potassium for today 2) continue watching renal function, labs on oral intake. 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 Eating and drinking without any complaints. Discussed her lab values today which she has already reviewed. Medications and Allergies: Current Facility-Administered Medications Medication Dose Route Frequency Provider Last Rate Last Admin gabapentin (NEURONTIN) capsule 100 mg 100 mg Oral At Bedtime Brendan Dominguez MD 100 mg at 03/09/242137 gabapentin (NEURONTIN) capsule 100 mg 100 mg Oral TID Sean Freeman MD 100 mg at 758 [Held by provider] potassium chloride deanne ER (KLOR-CON M20) CR tablet 60 mEq 60 mEq Oral TID Charles Bender MD 60 mEq at 03/09/242137 sodium chloride (PF) 0.9% PF flush 3 mL 3 mL Intracatheter Q8H Brendan Dominguez MD 3 mL at 03/10/24 0722 Allergies Allergen Reactions Iron Sucrose Anxiety and [...] (see comments) Physical Exam: Vitals were reviewed BP 130/69 (BP Location: Left arm) Pulse 92 Temp 98.9 ??F (37.2 ??C) (Oral) Resp 18 Ht 1.702m (5' 7) Wt 49.4 kg (108 lb 12.8 oz) SpO2 98% BMI 17.04 kg/m?? Wt Readings from Last 3 Encounters: 03/10/24 49.4 kg (108 lb 12.8 oz) 02/01/23 57.2 kg (126 lb 1.6 oz) 11/04/22 62.6 kg (137 lb 14.4 oz) Intake/Output Summary (Last 24 hours) at 03/10/2024 1224 Last data filed at 03/10/2024 1050 Gross per 24 hour Intake 2160 ml Output -- Net 2160 ml GENERAL APPEARANCE: Alert, oriented no distress Exam deferred Data: BMP Recent Labs Lab 03/10/24 0648 03/09/24 1752 03/09/24 0718 03/08/24 0857 NA 140 142 142 149* POTASSIUM 5.4* 4.8 5.5* 3.6 CHLORIDE 106 106 105 108* ELKE 10.6* 9.7 10.0 9.2 CO2 26 25 28 30* BUN 26.5* 25.8* 24.2* 27.8* CR 1.65* 1.55* 1.57* 1.83* GLC 98 119* 127* 82 CBC Recent Labs Lab 03/06/24 1419 WBC 7.2 HGB 10.3* HCT 31.1* MCV 82 PLT 520* Lab Results Component Value Date AST 22 03/06/2024 ALT 14 03/06/2024 ALKPHOS 140 03/06/2024 BILITOTAL 0.3 03/06/2024 BILICONJ 0.0 04/09/2007 KATHIA <1 (L) 03/18/2007 Lab Results Component Value Date INR 0.93 08/01/2018 Attestation: I have reviewed today's vital signs, notes, medications, labs and imaging. Jose Eduardo Jaeger DO [facility] - Nephrology Office: [phone] * Charles Bender MD - 03/09/2024 12:02 PM CDT Nephrology Progress Note 03/09/2024 Assessment & Recommendations: 1 acute kidney injury, nonoliguric clearly related to prerenal state with significant treatment with IV fluids. This has been recurrent issue with contraction alkalosis, hypovolemia and recurrent BARBARA. Recurrent BARBARA's may be now causing some incomplete recovery and subsequent CKD Will not know new baseline CKD related GFR in last we see a steady state in a euvolemic state. 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 She tends to try to have high fluid intake, high salt intake as well as high potassium intake through her diet. Failure in the past with reports with infections, no improvement documented by Dr. Garcia related to home IV fluids. 3) hypercalcemia,-with volume depletion. Improved. 4 hypernatremia-with hypotonic IV fluid. Encourage oral fluid intake. Other: Clearly patient's medical care is complicated with psychosocial issues. In the past has been followed by mental health, unclear if actively seeing providers currently. Anemia with history of iron deficiency Plan/Recs: -Encourage oral fluid intake -Hold IV fluid with potassium. Potassium now trending high. -Back on oral replacement to 60 mill equivalent 3 times daily today (she was on80 meq 4 times a dayyesterday and 5 times a day at home) -Recheck BMP in evening given higher potassium with morning labs. Can make adjustment in oral dosing accordingly. - will resume spironolactone at [facility] dose when GFR normalized or closer to expected baseline Patient reluctant to go home today given general weakness and aches and pains. She can be discharged in the morning from renal standpoint if her electrolytes are stable. Charles Bender MD [facility] - Nephrology [phone] Interval History : Seen / examined. No acute issues overnight. Creatinine continues to improve. 1.5. Potassium up at 5.5. Reports generalized aches and pains. Physical Exam: I/O last 3 completed shifts: In: 1720 [P.O.:1720] Out: - BP 129/85 (BP Location: Left arm) Pulse 92 Temp 98.4 ??F (36.9 ??C) (Oral) Resp 16 Ht 1.702m (5' 7) Wt 51.4 kg (113 lb 4.8 oz) SpO2 99% BMI 17.75 kg/m?? GENERAL APPEARANCE: alert and no distress EYES: no scleral icterus, pupils equal PULM: lungs clear to auscultation, equal air movement, no cyanosis or clubbing CV: regular rhythm, normal rate, no rub -JVP - -edema - GI: soft, non tender, NEURO: mentation intact and speech normal, no asterixis Labs: All labs reviewed by me Electrolytes/Renal - Recent Labs Lab Test 03/09/24 0718 03/08/24 0857 03/07/24 0846 03/06/24 1419 11/06/22 1156 11/06/22 0621 NA 142 149* 143 137 < > 138 POTASSIUM 5.5* 3.6 2.7* 3.3* < > 4.4 CHLORIDE 105 108* 96* 79* < > 105 CO2 28 30* 36* 40* < > 26 BUN 24.2* 27.8* 43.3* 47.9* < > 17.9 CR 1.57* 1.83* 2.85* 3.54* < > 0.72 GLC 127* 82 53* 99 < > 86 ELKE 10.0 9.2 10.3 13.2* < > 7.8* MAG -- 1.7 2.2 2.6* < > 1.4* PHOS -- -- 2.6 3.4 -- 1.8* < > = values in this interval not displayed. CBC - Recent Labs Lab Test 03/06/24 1419 02/01/23 0701/31/23201801/31/232016 WBC 7.2 8.4 -- 8.7 HGB 10.3* 8.8* 12.2 10.8* PLT 520* 297 -- 395 LFTs - Recent Labs Lab Test 03/06/24 1419 01/31/23201611/04/22 141 ALKPHOS 140 81 76 BILITOTAL 0.3 0.3 0.2 ALT 14 20 15 AST 22 33 29 PROTTOTAL 8.8* 8.2 7.4 ALBUMIN 5.2 5.0 4.5 Iron Panel - Recent Labs Lab Test 03/07/24 0846 11/05/22 0749 07/21/21 0702 11/02/19 0610 IRON 60 18* -- 15* IRONSAT 18 5* -- 4* MALA -- 8 < > 6* < > = values in this interval not displayed. Current Medications: Current Facility-Administered Medications Medication Dose Route Frequency Provider Last Rate Last Admin gabapentin (NEURONTIN) capsule 100 mg 100 mg Oral At Bedtime Brendan Dominguez MD 100 mg at 03/08/242111 gabapentin (NEURONTIN) capsule 100 mg 100 mg Oral TID Sean Freeman MD 100 mg at 819 potassium chloride deanne ER (KLOR-CON M20) CR tablet 80 mEq 80 mEq Oral 4x Daily Charles Bender MD 80mEq at 03/09/24 0819 sodium chloride (PF) 0.9% PF flush 3 mL 3 mL Intracatheter Q8H Brendan Dominguez MD 3 mL at 03/09/24 1051 Current Facility-Administered Medications Medication Dose Route Frequency Provider Last Rate Last Admin Charles Bender MD * Sheila Ferrer, DO - 03/09/2024 9:40 AM CDT [facility] Medicine Progress Note - Hospitalist Service Date of Admission: 03/06/2024 Assessment & Plan Acute kidney injury on top of chronic kidney disease Acute hypokalemia-improving Acute hypercalcemia-improving and resolving Metabolic alkalosis with compensatory respiratory acidosis 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 -Encourage oral fluid intake. IV fluids modified and optimized currently being switched to bicarbonate infusion by nephrology service -Anticipating resumption of oral supplementation in her Aldactone once continues to demonstrate stable kidney function Anemia-stable Probably on the basis of CKD Minimally displaced Right inferior Pubic ramus fracture History of chronic pain -Pain control still not optimal -Will adjust oral regimen and increase frequency of IV opioids for severe and uncontrolled pain -Adjuvant medication such as hydroxyzine available -Resumption of patient's gabapentin -May utilize her home regimen of muscle relaxants as needed -She will need to follow-up with her established orthopedic service Diet: Combination Diet Regular Diet Adult DVT Prophylaxis: Pneumatic Compression Devices Patton Catheter: Not present Lines: None Cardiac Monitoring: None Code Status: Full Code Clinically Significant Risk Factors # Hyperkalemia: Highest K = 5.5 mmol/L in last 2 days, will monitor as appropriate # Hypernatremia: Highest Na = 149 mmol/L in last 2 days, will monitor as appropriate # Cachexia: Estimated body mass index is 17.75 kg/m?? as calculated from the following: Height as of this encounter: 1.702 m (5' 7). Weight as of this encounter: 51.4 kg (113 lb 4.8 oz)., PRESENT ON ADMISSION Disposition Plan Expected Discharge Date: 03/09/2024 Sheila Ferrer DO Hospitalist Service [facility] Securely message with [employer] (more info) Text page via [employer] Paging/Directory Interval History Creatinine improving from 1.83-1.57, BUN 24.2. Potassium is 5.5. Bicarb is 28. Physical Exam Vital Signs: Temp: 98.4 ??F (36.9 ??C) Temp src: Oral BP: 129/85 Pulse: 92 Resp: 16 SpO2: 99 % O2 Device: None (Room air) Weight: 113 lbs 4.8 oz General: Very pleasant female HEENT: Sclerae anicteric. Mucous membranes moist. Respiratory: Normal work of breathing. Musculoskeletal: Moving all extremities appropriately. Skin: No rashes or abrasions on exposed skin. Neurologic: Alert. No gross focal deficits. Psychologic: tearful, appropriate Medical Decision Making 47 MINUTES SPENT BY ME on the date of service doing chart review, history, exam, documentation & further activities per the note. Data I have personally reviewed the following data over the past 24 hrs: N/A \ N/A / N/A 142 105 24.2 (H) / 127 (H) 5.5 (H) 28 1.57 (H) \ Imaging results reviewed over the past 24 hrs: No results found for this or any previous visit (from the past 24 hour(s)). * Anibal Singh MD - 03/08/2024 11:14 AM CDT [facility] Medicine Progress Note - Hospitalist Service Date of Admission: 03/06/2024 Assessment & Plan Lorraine Klein is a 33 year old female with a background history of chronic pain syndrome, gentleman syndrome, fibromyalgia, gastroparesis, depression, IBS who presented here due to concerns of worsening kidney function, with earlier known previous issues of severe hypokalemia. [facility]. Recently had a fall event as well leading to a minimally displaced right inferior pubis ramus fracture is being managed conservatively. 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 -Encourage oral fluid intake. IV fluids modified and optimized currently being switched to bicarbonate infusion by nephrology service Anticipating resumption of oral supplementation in her Aldactone once continues to demonstrate stable kidney function Anemia-stable Probably on the basis of CKD Minimally displaced Right inferior Pubic ramus fracture History of chronic pain -Pain control still not optimal -Will adjust oral regimen and increase frequency of IV opioids for severe and uncontrolled pain -Adjuvant medication such as hydroxyzine available -Resumption of patient's gabapentin -May utilize her home regimen of muscle relaxants as needed -She will need to follow-up with her established orthopedic service Fall precautions please Diet: Regular diet DVT Prophylaxis: Pneumatic Compression Devices Patton Catheter: Not present Lines: None Cardiac Monitoring: None Code Status: Full code Diet: Combination Diet Regular Diet Adult DVT Prophylaxis: Pneumatic Compression Devices Patton Catheter: Not present Lines: None Cardiac Monitoring: None Code Status: Full Code Clinically Significant Risk Factors # Hypokalemia: Lowest K = 2.7 mmol/L in last 2 days, will replace as needed # Hypernatremia: Highest Na = 149 mmol/L in last 2 days, will monitor as appropriate # Hypercalcemia: Highest Ca = 13.2 mg/dL in last 2 days, will monitor as appropriate # Cachexia: Estimated body mass index is 17.4 kg/m?? as calculated from the following: Height as of this encounter: 1.702 m (5' 7). Weight as of this encounter: 50.4 kg (111 lb 1.8 oz)., PRESENT ON ADMISSION Disposition Plan Medically Ready for Discharge: Anticipating in the next 24 to 36 hours if continues to demonstrate stable kidney function and electrolyte levels Anibal Singh MD, MD Hospitalist Service [facility] Securely message with [employer] (more info) Text page via [facility] Paging/Directory Interval History Continuing medicine service care today. Seen and examined. Case discussed with nursing service. I met this young pleasant lady this morning while she is sitting comfortably in the hospital bed while eating her breakfast food tray. No reports of any nausea or vomiting. Remained afebrile. Not requiring oxygen support. Overall pain control has improved Physical Exam Vital Signs: Temp: 97.9 ??F (36.6 ??C) Temp src: Oral BP: (!) 147/101 Pulse: 83 Resp: 18 SpO2: 99 %O2 Device: None (Room air) Weight: 111 lbs 1.79 oz HEENT; Atraumatic, normocephalic, pinkish conjuctiva, pupils bilateral reactive Skin: warm and moist, no rashes Lungs: equal chest expansion, clear to auscultation, no wheezes, no stridor, no crackles, Heart: normal rate, normal rhythm, no rubs or gallops. Abdomen: normal bowel sounds, no tenderness, no peritoneal signs, no guarding Extremities: no deformities, no edema Neuro; follow commands, alert and oriented x3, spontaneous speech, coherent, moves all extremities spontaneously Psych; no hallucination, euthymic mood, not agitated Medical Decision Making 40 MINUTES SPENT BY ME on the date of service doing chart review, history, exam, documentation & further activities per the note. MANAGEMENT DISCUSSED with the following over the past 24 hours: Yes NOTE(S)/MEDICAL RECORDS REVIEWED over the past 24 hours: Yes Data I have personally reviewed the following data over the past 24 hrs: N/A \ N/A / N/A 149 (H) 108 (H) 27.8 (H) / 82 3.6 30 (H) 1.83 (H) \ Imaging results reviewed over the past 24 hrs: No results found for this or any previous visit (from the past 24 hour(s)). * Charles Bender MD - 03/08/2024 9:38 AM CDT Nephrology Progress Note 03/08/2024 Assessment & Recommendations: 1 acute kidney injury, nonoliguric clearly related to prerenal state with significant treatment with IV fluids. This has been recurrent issue with contraction alkalosis, hypovolemia and recurrent BARBARA. Recurrent BARBARA's may be now causing some incomplete recovery and subsequent CKD Will not know new baseline CKD related GFR in last we see a steady state in a euvolemic state. -Creatinine improving 2) presumable Gettleman syndrome: Reported genetic testing pending Variable treatments over the years with most recent regimen of spironolactone and potassium chloride. She tends to try to have high fluid intake, high salt intake as well as high potassium intake through her diet. Failure in the past with reports with infections, no improvement documented by Dr. Garcia related to home IV fluids. 3) hypercalcemia,-with volume depletion. Improved. 4 hypernatremia-with hypotonic IV fluid. Encourage oral fluid intake. Other: Clearly patient's medical care is complicated with psychosocial issues. In the past has been followed by mental health, unclear if actively seeing providers currently. Anemia with history of iron deficiency Plan/Recs: -Encourage oral fluid intake Switch fluid to half-saline with 10 mg of bicarbonate at 100 cc an hour Increase oral potassium to 80 mill equivalent 4 times a day will resume spironolactone at [facility] dose when GFR normalized or closer to expected baseline Charles Bender MD [facility] - Nephrology [phone] Interval History : Seen / examined. No acute issues overnight. Tolerating IV fluid. Nonoliguric. Bicarb down to 30, creatinine down to 1.8, potassium normalized. Sodium up to 149. Physical Exam: I/O last 3 completed shifts: In: 3170 [I.V.:3170] Out: - BP (!) 147/101 (BP Location: Left arm) Pulse 83 Temp 97.9 ??F (36.6 ??C) (Oral) Resp 16 Ht 1.702 m (5' 7) Wt 50.4 kg (111 lb 1.8 oz) SpO2 99% BMI 17.40 kg/m?? GENERAL APPEARANCE: alert and no distress EYES: no scleral icterus, pupils equal PULM: lungs clear to auscultation, equal air movement, no cyanosis or clubbing CV: regular rhythm, normal rate, no rub -JVP - -edema - GI: soft, non tender, NEURO: mentation intact and speech normal, no asterixis Labs: All labs reviewed by sc Electrolytes/Renal - Recent Labs Lab Test 03/08/24 0857 03/07/24 0846 03/06/24 1419 11/06/22 1156 11/06/22 0621 NA 149* 143 137 < > 138 POTASSIUM 3.6 2.7* 3.3* < > 4.4 CHLORIDE 108* 96* 79* < > 105 CO2 30* 36* 40* < > 26 BUN 27.8* 43.3* 47.9* < > 17.9 CR 1.83* 2.85* 3.54* < > 0.72 GLC 82 53* 99 < > 86 ELKE 9.2 10.3 13.2* < > 7.8* MAG 1.7 2.2 2.6* < > 1.4* PHOS -- 2.6 3.4 -- 1.8* < > = values in this interval not displayed. CBC - Recent Labs Lab Test 03/06/24 1419 02/01/23 0715 01/31/23201801/31/232016 WBC 7.2 8.4 -- 8.7 HGB 10.3* 8.8* 12.2 10.8* PLT 520* 297 -- 395 LFTs - Recent Labs Lab Test 03/06/24 1419 01/31/23 2017 11/04/22 1416 ALKPHOS 140 81 76 BILITOTAL 0.3 0.3 0.2 ALT 14 20 15 AST 22 33 29 PROTTOTAL 8.8* 8.2 7.4 ALBUMIN 5.2 5.0 4.5 Iron Panel - Recent Labs Lab Test 03/07/24 0846 11/05/22 0749 07/21/21 0702 11/02/19 0610 IRON 60 18* -- 15* IRONSAT 18 5* -- 4* MALA -- 8 < > 6* < > = values in this interval not displayed. Current Medications: Current Facility-Administered Medications Medication Dose Route Frequency Provider Last Rate Last Admin gabapentin (NEURONTIN) capsule 100 mg 100 mg Oral At Bedtime Brendan Dominguez MD 100 mg at 03/07/24 2145 gabapentin (NEURONTIN) capsule 100 mg 100 mg Oral TID Sean Freeman MD 100 mg at 811 potassium chloride deanne ER (KLOR-CON M20) CR tablet 60 mEq 60 mEq Oral TID Brendan Dominguez MD 60 mEq at 03/08/24 0811 sodium chloride (PF) 0.9% PF flush 3 mL 3 mL Intracatheter Q8H Brendan Dominguez MD 3 mL at 03/08/24 0147 Current Facility-Administered Medications Medication Dose Route Frequency Provider Last Rate Last Admin 0.9% sodium chloride + KCl 20 mEq/L infusion Intravenous Continuous Jose Eduardo Jaeger DO 125 mL/hr at 03/08/24 0813 Rate Verify at 03/08/24 0813 Charles Bender MD * Anibal Singh MD - 03/07/2024 10:38 AM CDT [facility] Medicine Progress Note - Hospitalist Service Date of Admission: 03/06/2024 Assessment & Plan Lorraine Klein is a 33 year old female with a background history of chronic pain syndrome, gentleman syndrome, fibromyalgia, gastroparesis, depression, IBS who presented here due to concerns of worsening kidney function, with earlier known previous issues of severe hypokalemia. [facility]. Recently had a fall event as well leading to a minimally displaced right inferior pubis ramus fracture is being managed conservatively. Acute kidney injury on top of chronic kidney disease Acute hypokalemia-improving Acute hypercalcemia-improving and resolving Metabolic alkalosis with compensatory respiratory acidosis Gitelman Syndrome -Highly appreciate prompt input from nephrology service. Pending formal evaluation but was started on IV fluid support. Continue to monitor electrolytes levels and appropriate supplementation with guidance from nephrology service Anemia Probably on the basis of CKD Minimally displaced Right inferior Pubic ramus fracture History of chronic pain -Pain control still not optimal -Will adjust oral regimen and increase frequency of IV opioids for severe and uncontrolled pain -Adjuvant medication such as hydroxyzine available -Resumption of patient's gabapentin -May utilize her home regimen of muscle relaxants as needed Fall precautions please Diet: Regular diet DVT Prophylaxis: Pneumatic Compression Devices Patton Catheter: Not present Lines: None Cardiac Monitoring: None Code Status: Full code Diet: Combination Diet Regular Diet Adult DVT Prophylaxis: Pneumatic Compression Devices Patton Catheter: Not present Lines: None Cardiac Monitoring: None Code Status: Full Code Clinically Significant Risk Factors Present on Admission # Hypokalemia: Lowest K = 2.7 mmol/L in last 2 days, will replace as needed # Hypercalcemia: Highest Ca = 13.2 mg/dL in last 2 days, will monitor as appropriate # Anemia: based on hgb <11 # Cachexia: Estimated body mass index is 17.2 kg/m?? as calculated from the following: Height as of this encounter: 1.702 m (5' 7). Weight as of this encounter: 49.8 kg (109 lb 12.8 oz). Disposition Plan Medically Ready for Discharge: Anticipated in 2-4 Days Anibal Singh MD, MD Hospitalist Service [facility] Securely message with [employer] (more info) Text page via [facility] Paging/Directory Interval History I assumed medicine service care today. Seen and examined. Case discussed with nursing service. I met this young pleasant lady this morning while she is laying comfortably in bed. Fortunately she was able to tolerate some oral diet earlier with no issues of nausea and vomiting this morning. She was able to get good amount of sleep last night due to intermittent uncontrolled pain mostly at her recent pelvic fracture area. Currently not requiring any oxygen support. Stable hemodynamics. Remained to be afebrile. Physical Exam Vital Signs: Temp: 97.7 ??F (36.5 ??C) Temp src: Oral BP: 133/77 Pulse: 76 Resp: 18 SpO2: 100 % O2 Device: None (Room air) Weight: 109 lbs 12.8 oz HEENT; Atraumatic, normocephalic, pinkish conjuctiva, pupils bilateral reactive Dry oral buccal mucosa Skin: warm and moist, no rashes Lungs: equal chest expansion, clear to auscultation, no wheezes, no stridor, no crackles, Heart: normal rate, normal rhythm, no rubs or gallops. Abdomen: normal bowel sounds, no tenderness, no peritoneal signs, no guarding Extremities: no deformities, no edema Neuro; follow commands, alert and oriented x3, spontaneous speech, coherent, moves all extremities spontaneously Psych; no hallucination, euthymic mood, not agitated Medical Decision Making 50 MINUTES SPENT BY ME on the date of service doing chart review, history, exam, documentation & further activities per the note. MANAGEMENT DISCUSSED with the following over the past 24 hours: Yes NOTE(S)/MEDICAL RECORDS REVIEWED over the past 24 hours: Yes Data I have personally reviewed the following data over the past 24 hrs: 7.2 \ 10.3 (L) / 520 (H) 143 96 (L) 43.3 (H) / 53 (L) 2.7 (L) 36 (H) 2.85 (H) \ ALT: 14 AST: 22 AP: 140 TBILI: 0.3 ALB: 5.2 TOT PROTEIN: 8.8 (H) LIPASE: N/A Imaging results reviewed over the past 24 hrs: Recent Results (from the past 24 hour(s)) US Renal Complete Non-Vascular Narrative US RENAL COMPLETE NON-VASCULAR 03/06/2024 4:29 PM CLINICAL HISTORY: Acute kidney failure. TECHNIQUE: Routine Bilateral Renal and Bladder Ultrasound. COMPARISON: CT of the abdomen and pelvis 07/20/2021. FINDINGS: RIGHT KIDNEY: 9.4 x 3.6 x 4.9 cm. Normal without hydronephrosis or masses. LEFT KIDNEY: 9.3 x 4.5 x 5.1 cm. Normal without hydronephrosis or masses. BLADDER: Normal. Impression IMPRESSION: Unremarkable renal ultrasound examination. No hydronephrosis. THANH BARGER MD SYSTEM ID: [id number] documented in this encounter H&P Notes * Brendan Dominguez MD - 03/06/2024 4:37 PM CDT [facility] History and Physical - Hospitalist Service Date of Admission: 03/06/2024 Assessment & Plan Lorraine Klein is a 33 year old female admitted on 03/06/2024. Acute kidney injury Some element of chronic kidney disease Acute hypokalemia Acute hypercalcemia Metabolic alkalosis with compensatory respiratory acidosis Gitelman Syndrome Will give IV fluids Consulted nephrology and talked. At this time we will bolus IV fluids 1 L and follow it up with 125mL/h maintenance. Potassium will be managed by nephrology. Anemia Probably on the basis of CKD Minimally displaced Right inferior Pubic ramus fracture Pain medications will be given in the form of Dilaudid with acute kidney injury Diet: Regular diet DVT Prophylaxis: Pneumatic Compression Devices Patton Catheter: Not present Lines: None Cardiac Monitoring: None Code Status: Full code Clinically Significant Risk Factors Present on Admission # Hypokalemia: Lowest K = 3.3 mmol/L in last 2 days, will replace as needed # Hypercalcemia: Highest Ca = 13.2 mg/dL in last 2 days, will monitor as appropriate # Anemia: based on hgb <11 # Cachexia: Estimated body mass index is 16.75 kg/m?? as calculated from the following: Height as of this encounter: 1.702 m (5' 7). Weight as of this encounter: 48.5 kg (106 lb 14.8 oz). Disposition Plan Medically Ready for Discharge: Anticipated in 2-4 Days Brendan Dominguez MD Hospitalist Service [facility] Securely message with Emy (more info) Text page via [facility] Paging/Directory Chief Complaint Abnormal labs History is obtained from the patient, medical records and my discussion with emergency department physician History of Present Illness Lorraine Klein is a thinly built 33 year old lady with known history of IBS, anemia, fibromyalgia, depression, gastroparesis, Gitelman syndrome, osteoporosis who was admitted to the [facility] 02/29/2024 and was discharged on 03/01/2024 after being treated for hypokalemia with IV fluids and IV potassium. She was restarted on spironolactone 50 mg twice daily on 03/03/2024. Subsequentlypatient saw roller presser operator who does not have privileges at [facility] on 03/05/2024 with a potassium being 5.1 calcium 10 phosphorus 4.5 magnesium 2.6 BUN was 20 creatinine was 2.25 whereas it was 1.94 on 02/14/2024. She was told to come and get admitted to this hospital by the roller presser operator. She says that she feels dizzy and adds that she had similar symptoms when her kidney function deteriorates. In the emergency department today her blood pressure was 129/102 her pulse was 111 temperature 99.5sodium 137 potassium 3.3 chloride 79 bicarb 40 BUN 47 creatinine 3.54 calcium was 13.2 anion gap 18phosphorus was low at 2.6 ionized calcium was elevated at 5.6 pH was 7.48 pCO2 63 pO2 27 on a venous gas hemoglobin 10.3 she says that she is passing urine normally rather more. Past Medical History Past Medical History: Diagnosis [...] DIAGNOSTIC (GENERAL) 2018 takedown of gtube site Prior to Admission Medications Prior to Admission Medications Prescriptions Last Dose Informant Patient Reported? Taking? calcium carbonate (TUMS) 500 MG chewable tablet Yes No Sig: Take 1-2 chew tab by mouth daily as needed for heartburn cyclobenzaprine (FLEXMID) 7.5 MG tablet No No Sig: Take 1 tablet (7.5 mg) by mouth 3 times daily as needed for muscle spasms ferrous sulfate 325 (65 Fe) MG TBEC EC tablet Yes No Sig: Take 325 mg by mouth 3 times daily gabapentin (NEURONTIN) 100 MG capsule Yes No Sig: Take 100 mg by mouth At Bedtime (Plus 300mg for total 400mg at bedtime) gabapentin (NEURONTIN) 300 MG capsule Yes No Sig: Take 300 mg by mouth 3 times daily hydrOXYzine (ATARAX) 25 MG tablet No No Sig: Take 1-2 tablets (25-50 mg) by mouth every 6 hours as needed for other (adjuvant pain) magnesium oxide (MAG-OX) 400 MG tablet Yes No Sig: Take 400 mg by mouth 3 times daily multivitamin, therapeutic (THERA-VIT) TABS Self Yes No Sig: Take 1 tablet by mouth daily oxyCODONE (ROXICODONE) 5 MG tablet No No Sig: Take 1 tablet (5 mg) by mouth every 8 hours as needed for pain potassium chloride (KLOR-CON) 20 MEQ packet Yes No Sig: Take 80 mEq by mouth 5 times daily spironolactone (ALDACTONE) 50 MG tablet Yes No Sig: Take 50 mg by mouth daily Facility-Administered Medications: None Review of Systems Denies any headache now but to head yesterday, no blurring of vision or double vision, neck pain jaw pain or shoulder pain, chest pain, shortness of breath, cough or increased sputum production, nausea or vomiting, abdominal pain, diarrhea or constipation. Denies any urinary symptoms of burning or increased frequency. Denies any weakness of upper or lower extremities or any seizure activity. Fever or chills. Bleeding from anywhere else. No rashes or cellulitis. Patient says that she has 8/10 pain in the right hip joint area near her groin Social History I have reviewed this patient's social history and updated it with pertinent information if needed. Social History Tobacco Use Smoking status: Never Smokeless tobacco: Never Vaping Use Vaping status: Never Used Substance Use Topics Alcohol use: No Drug use: No Family History I have reviewed this patient's family history and updated it with pertinent information if needed. Family History Problem Relation Age of Onset Other - See Comments Father Hypokalemia Hypothyroidism Mother Juvenile idiopathic arthritis Sister Breast Cancer Maternal Grandmother Colon Cancer Paternal Uncle Allergies Allergies Allergen Reactions Iron Sucrose Anxiety [...] (see comments) Physical Exam Vital Signs: Temp: 99.5 ??F (37.5 ??C) Temp src: Oral BP: (!) 153/101 Pulse: 96 Resp: 15 SpO2: 99 %O2 Device: None (Room air) Weight: 106 lbs 14.77 oz GENERAL: Patient does not look in any acute distress HEENT: EOM+, Conjunctiva is clear NECK: , no Jugular Venous distention HEART: S1 S2 regular Rate and Rhythm, no murmur, LUNGS: Respirations are not laboured, Lungs are clear to auscultation without Crepitations or Wheezing ABDOMEN: Soft, there is no tenderness , Bowel Sounds are Positive LOWER LIMBS: no Pedal Edema Bilaterally COOK CHILL TECHNICIAN: Alert, Oriented x 3, Moving all the Four Limbs Data Imaging results reviewed over the past 24 hrs: Recent Results (from the past 24 hour(s)) US Renal Complete Non-Vascular Narrative US RENAL COMPLETE NON-VASCULAR 03/06/2024 4:29 PM CLINICAL HISTORY: Acute kidney failure. TECHNIQUE: Routine Bilateral Renal and Bladder Ultrasound. COMPARISON: CT of the abdomen and pelvis 07/20/2021. FINDINGS: RIGHT KIDNEY: 9.4 x 3.6 x 4.9 cm. Normal without hydronephrosis or masses. LEFT KIDNEY: 9.3 x 4.5 x 5.1 cm. Normal without hydronephrosis or masses. BLADDER: Normal. Impression IMPRESSION: Unremarkable renal ultrasound examination. No hydronephrosis. THANH BARGER MD SYSTEM ID: [id number] X-ray hip 2 view showed The minimally displaced fracture involving the right inferior pubic ramus appears stable. Fracture lucency is still visualized. No definitive callus formation. The alignment is not significantly changed. No new fracture or dislocation. The alignment of the hips appear normal. Mild stool throughout the colon. Most Recent 3 CBC's: Recent Labs Lab Test 03/06/24 1419 02/01/23 0715 01/31/23 2019 01/31/232016 WBC 7.2 8.4 -- 8.7 HGB 10.3* 8.8* 12.2 10.8* MCV 82 75* -- 72* PLT 520* 297 -- 395 Most Recent 3 BMP's: Recent Labs Lab Test 03/06/24 1419 02/02/23 0946 02/02/23 0710 02/01/23 1519 02/01/23 0715 NA 137 -- 140 -- 136 POTASSIUM 3.3* 3.4 3.8 < > 3.1* 3.1* CHLORIDE 79* -- 103 -- 92* CO2 40* -- 30* -- 39* BUN 47.9* -- 25.8* -- 41.1* CR 3.54* -- 0.96* -- 1.68* ANIONGAP 18* -- 7 -- 5* ELKE 13.2* -- 8.8 -- 9.0 GLC 99 -- 78 -- 85 < > = values in this interval not displayed. Most Recent 2 LFT's: Recent Labs Lab Test 03/06/24 14101/31/23 2017 AST 22 33 ALT 14 20 ALKPHOS 140 81 BILITOTAL 0.3 0.3 Most Recent ABG: Recent Labs Lab Test 11/04/22 1452 PH >7.70* >7.70* documented in this encounter Consult Notes * Irish Tidwell APRN COOK CHILL TECHNICIAN - 03/12/2024 8:58 AM CDTAssociated Order(s): PAIN MANAGEMENT ADULT IP CONSULT Images from the original note were not included. [facility] ([facility], [facility], [facility], [facility]) Pain Consult Note Assessment/Plan: Lorraine Klein is a 33 year old female who was admitted on 03/06/2024. Pain Service is asked to see the patient for assistance with uncontrolled pain with multiple co morbidities. Admitted after being instructed to come to ED for further evaluation of abnormal labs. GFR was abnormal, with elevated creatinine and calcium. Patient had recent hospitalization at [facility] 02/28 to 03/01/24 hypokalemia with IV fluids and IV potassium. Medical history significant for IBS, anemia, fibromyalgia, depression, gastroparesis, Gitelman syndrome, osteoporosis, chronic pain, on daily opioids recent fall with minimally displaced right inferior pubic ramus fracture. Nephrology Consulted: BARBARA with CKD [employer]LECT[employer] APPLIANCE PREPARER shows over this past year prescriptions for gabapentin, dilaudid and tramadol. most recent 03/04/24 Gabapentin 300 mg 270 for 90 days 03/01/24 Hydromorphone 4 mg tablets 12 for 3 days 02/21/24 Hydromorphone 4 mg tablets 24 for 4 days 02/12/24 Tramadol 50 mg tablets 60 for 30 days 01/24/24 Gabapentin 100 mg tablets 90 for 90 days Over the past 24 hours patient has received: 6(0.3mg) IV hydromorphone, 1(4mg) oral hydromorphone, (3)50 mg hydroxyzine, (5)100mg Gabapentin and (3)750 mg Robaxin Describes pain as hip pain that is like a renato going through the hip to the buttock and sometimes goes down into leg. Currently rates pain at a 5-6 /10. Not sure if the oral dilaudid has been that effective, notices the most relief from the IV pain medicine. Is hoping she could dismiss from hospital later today. Would like to find an oral pain plan that would keep pain controlled well enough that she could dismiss from hospital. Takes gabapentin 4 times/day for chronic neck pain bulging disk PLAN: Acute pain secondary to right pelvic fracture, in the setting of chronic pain. Multimodal Medication Therapy: Adjuvants: Gabapentin 100 mg tid and HS, extra strength tylenol tid will schedule with methocarbamol 750mg tid, hydroxyzine 25-50 mg every 6 hours prn Okay to take with dilaudid. Opioids: Hydromorphone 4 mg every 6 hours with additional 2-4 mg hydromorphone every 3 hours prn, IV hydromorphone 0.3 mg bid for severe pain not managed by oral pain medications Non-medication interventions- Ice prn Constipation Prophylaxis- daily stool softener/laxative (senna/docusate 1-2 tablets bid prn) Follow up /Discharge Recommendations - We recommend prescribing the following at the time of discharge: Hydromorphone 5 day supply taper: #24 tablets: hydromorphone 4 mg every four hours prn (could schedule 4 mg four times per day with additional 2-4mg three times/day prn for severe pain, extra strength tylenol 1000 mg tid with Robaxin 750 mg tid (schedule over the next 3-5 days) Vistaril 25 mg every 6 hours prn (Okay to take with hydromorphone) <principal problem not specified> Patient Active Problem [...] upper arm Myalgia, multiple sites Metabolic alkalosis Kynkn-ey-fwvxpcc kidney injury (H24) Acute kidney injury (H24) Hypercalcemia BARBARA (acute kidney injury) (H24) History Drug Use No Tobacco Use Smoking status: Never Smokeless tobacco: Never Current Facility-Administered Medications Medication Dose Route Frequency Provider Last Rate Last Admin gabapentin (NEURONTIN) capsule 100 mg 100 mg Oral At Bedtime Brendan Dominguez MD 100 mg at 03/11/24 0527 gabapentin (NEURONTIN) capsule 100 mg 100 mg Oral TID Sean Freeman MD 100 mg at 839 [Held by provider] potassium chloride deanne ER (KLOR-CON M20) CR tablet 60 mEq 60 mEq Oral TID Charles Bender MD 60 mEq at 03/09/242137 sodium chloride (PF) 0.9% PF flush 3 mL 3 mL Intracatheter Q8H Brendan Dominguez MD 3 mL at 03/12/24 0840 Objective: Vital signs in last 24 hours: B/P: 101/67, T: 98, P: 82, R: 18 Blood pressure 101/67, pulse 82, temperature 98 ??F (36.7 ??C), temperature source Oral, resp. rate18, height 1.702 m (5' 7), weight 47.8 kg (105 lb 6.4 oz), SpO2 99%, not currently . Weight: Wt Readings from Last 2 Encounters: 03/12/24 47.8 kg (105 lb 6.4 oz) 02/01/23 57.2 kg (126 lb 1.6 oz) Intake/Output: Intake/Output Summary (Last 24 hours) at 03/12/2024 0858 Last data filed at 03/12/2024 0840 Gross per 24 hour Intake 1040 ml Output 1225 ml Net -185 ml Review of Systems: As per subjective, all others negative. Physical Exam: General Appearance: Alert, cooperative, no distress, sitting up in bed Head: Normocephalic, without obvious abnormality, atraumatic Eyes: PERRL, conjunctiva/corneas clear, EOM's intact ENT/Throat: Lips moist Lymph/Neck: Supple, symmetrical, trachea midline Lungs: respirations unlabored Abdomen: Soft, non-tender, non distended Musculoskeletal: Extremities normal, atraumatic Skin: Skin is intact Neurologic: Alert and oriented X 3, pain with walking, twisting Imaging: Personally Reviewed. Results for orders placed or performed during the hospital encounter of 03/06/24 US Renal Complete Non-Vascular Impression IMPRESSION: Unremarkable renal ultrasound examination. No hydronephrosis. THANH BARGER MD SYSTEM ID: [id number] Lab Results: Personally Reviewed. Last Comprehensive Metabolic Panel: Sodium Date Value Ref Range Status 03/12/2024 139 135 - 145 mmol/L Final 11/22/2020 141 133 - 144 mmol/L Final Potassium Date Value Ref Range Status 03/12/2024 3.0 (L) 3.4 - 5.3 mmol/L Final 07/22/2021 3.5 3.4 - 5.3 mmol/L Final 11/22/2020 4.2 3.4 - 5.3 mmol/L Final Potassium POCT Date Value Ref Range Status 01/31/2023 <2.0 (LL) 3.4 - 5.3 mmol/L Final Comment: --- Chloride Date Value Ref Range Status 03/12/2024 97 (L) 98 - 107 mmol/L Final [...] Dioxide (CO2) Date Value Ref Range Status 03/12/2024 26 22 - 29 mmol/L Final 07/22/2021 27 20 - 32 mmol/L Final Anion Gap Date Value Ref Range Status 03/12/2024 16 (H) 7 - 15 mmol/L Final 07/22/2021 3 3 - 14 mmol/L Final 11/22/2020 2 (L) 3 - 14 mmol/L Final Glucose Date Value Ref Range Status 03/12/2024 83 70 - 99 mg/dL Final 07/22/2021 106 (H) 70 - 99 mg/dL Final 11/22/2020 82 70 - 99 mg/dL Final GLUCOSE BY METER POCT Date Value Ref Range Status 02/01/2023 115 (H) 70 - 99 mg/dL Final Glucose Whole Blood POCT Date Value Ref Range Status 01/31/2023 98 70 - 99 mg/dL Final Comment: --- Urea Nitrogen Date Value Ref Range Status 03/12/2024 40.6 (H) 6.0 - 20.0 mg/dL Final 07/22/2021 13 7 - 30 mg/dL Final 11/22/2020 20 7 - 30 mg/dL Final UREA NITROGEN POCT Date Value Ref Range Status 01/31/2023 47 (H) 7 - 30 mg/dL Final Comment: --- Creatinine Date Value Ref Range Status 03/12/2024 1.68 (H) 0.51 - 0.95 mg/dL Final 11/22/2020 0.80 0.52 - 1.04 mg/dL Final GFR Estimate Date Value Ref Range Status 03/12/2024 41 (L) >60 mL/min/1.73m2 Final Comment: eGFR calculated using 2020 CKD-EPI equation. 11/22/2020 >90 >60 mL/min/[1.73_m2] Final Comment: Non GFR Calc Starting 06/11/2018, serum creatinine based estimated GFR (eGFR) will be calculated using the Chronic Kidney Disease Epidemiology Collaboration (CKD-EPI) equation. Calcium Date Value Ref Range Status 03/12/2024 10.5 (H) 8.8 - 10.4 mg/dL Final Comment: Reference [...] negative PCP is 25 ng/mL or less. MANAGEMENT DISCUSSED with the following over the past 24 hours: RN NOTE(S)/MEDICAL RECORDS REVIEWED over the past 24 hours: Nursing, Hospital Medicine, Nephrology Irish Tidwell APRN, YUSEF WATERMAN Acute Inpatient Pain Team M-F Paging via Spout or BookTour * Fabian Lara PA-C - 03/11/2024 1:23 PM CDT Images from the original note were not included. [facility] ACUTE INPATIENT PAIN SERVICE [facility] PAIN CONSULT Assessment/Plan: Lorraine Klein is a 33 year old female who was admitted on 03/06/2024. I was asked by Dr. Sheila Ferrer to see the patient for her uncontrolled pain. She has a pubic ramus fracture documented on CT imaging 02/15/2024 and has required pain medications. In the emergency department, she reported that dilaudid was not controlling her pain. Plain film imaging performed in emergency department showed, minimally displaced fracture involving the right inferior pubic ramus appears stable. Fracture lucency is still visualized. No definitive callus formation. The alignment is not significantly changed. No new fracture or dislocation. The alignment of the hips appear normal Admitted for concerns of worsening kidney function with history of severe hypokalemia. History of chronic pain syndrome, gentleman syndrome, fibromyalgia, gastroparesis, depression, IBS . Describes pain as 9/10. Reports oralmedications have been ineffective for managing her pain. Lengthy discussion today managing her pain when she discharges from the hospital. Her medications are being managed by her primary care through [facility]. She expresses interest to meet with a pain specialist who can manage and monitor her pain in the interim. She also expressed interest in medical cannabis which I think would be a good option alternative to opioids. [facility] with [facility]. Has filled small Rx's of Tramadol, Dilaudid and Percocet in the recent past. Also managed on Gabapentin. Opioid medications used in the past 24h: *(8)0.3 IV Dilaudid *(1) 4mg PO Dilaudid PLAN: Acute right hip pain. Pain is consistent with a right pubis ramus fracture. Multimodal Medication Therapy: Adjuvants: - Gabapentin 100mg tid - Hydroxyzine 25-50mg q6h prn - Topical Lidocaine - Robaxin 750mg q6h prn Opioids: - Dilaudid 2-4mg q4h to q3h prn - first line - IV Dilaudid 0.3mg q3h to q4h - second line Non-medication interventions- Ice Constipation Prophylaxis- Senna-S Follow up /Discharge Recommendations - We recommend prescribing the following at the time of discharge: Referred to [facility] for outpatient pain management. Subjective: Lorraine is seen today in her [...] Vital signs in last 24 hours: B/P: 109/64, T: 98.6, P: 98, R: 18 Blood pressure 109/64, pulse 98, temperature 98.6 ??F (37 ??C), temperature source Oral, resp. rate18, height 1.702 m (5' 7), weight 48.4 kg (106 lb 12.8 oz), SpO2 97%, not currently . Review of Systems: As [...] euthymic Neuro: Grossly normal Imaging: Personally Reviewed. Results for orders placed or performed during the hospital encounter of 03/06/24 US Renal Complete Non-Vascular Impression IMPRESSION: Unremarkable renal ultrasound examination. No hydronephrosis. THANH BARGER MD SYSTEM ID: [id number] Lab Results: Personally Reviewed. Last Comprehensive Metabolic Panel: Sodium Date Value Ref Range Status 03/11/2024 140 135 - 145 mmol/L Final 11/22/2020 141 133 - 144 mmol/L Final Potassium Date Value Ref Range Status 03/11/2024 4.0 3.4 - 5.3 mmol/L Final 07/22/2021 3.5 3.4 - 5.3 mmol/L Final 11/22/2020 4.2 3.4 - 5.3 mmol/L Final Potassium POCT Date Value Ref Range Status 01/31/2023 <2.0 (LL) 3.4 - 5.3 mmol/L Final Comment: --- Chloride Date Value Ref Range Status 03/11/2024 100 98 - 107 mmol/L Final 07/22/2021 110 [...] Dioxide (CO2) Date Value Ref Range Status 03/11/2024 26 22 - 29 mmol/L Final 07/22/2021 27 20 - 32 mmol/L Final Anion Gap Date Value Ref Range Status 03/11/2024 14 7 - 15 mmol/L Final 07/22/2021 3 3 - 14 mmol/L Final 11/22/2020 2 (L) 3 - 14 mmol/L Final Glucose Date Value Ref Range Status 03/11/2024 113 (H) 70 - 99 mg/dL Final 07/22/2021 106 (H) 70 - 99 mg/dL Final 11/22/2020 82 70 - 99 mg/dL Final GLUCOSE BY METER POCT Date Value Ref Range Status 02/01/2023 115 (H) 70 - 99 mg/dL Final Glucose Whole Blood POCT Date Value Ref Range Status 01/31/2023 98 70 - 99 mg/dL Final Comment: --- Urea Nitrogen Date Value Ref Range Status 03/11/2024 37.6 (H) 6.0 - 20.0 mg/dL Final 07/22/2021 13 7 - 30 mg/dL Final 11/22/2020 20 7 - 30 mg/dL Final UREA NITROGEN POCT Date Value Ref Range Status 01/31/2023 47 (H) 7 - 30 mg/dL Final Comment: --- Creatinine Date Value Ref Range Status 03/11/2024 1.73 (H) 0.51 - 0.95 mg/dL Final 11/22/2020 0.80 0.52 - 1.04 mg/dL Final GFR Estimate Date Value Ref Range Status 03/11/2024 40 (L) >60 mL/min/1.73m2 Final Comment: eGFR calculated using 2020 CKD-EPI equation. 11/22/2020 >90 >60 mL/min/[1.73_m2] Final Comment: Non GFR Calc Starting 06/11/2018, serum creatinine based estimated GFR (eGFR) will be calculated using the Chronic Kidney Disease Epidemiology Collaboration (CKD-EPI) equation. Calcium Date Value Ref Range Status 03/11/2024 10.4 8.8 - 10.4 mg/dL Final Comment: Reference [...] negative PCP is 25 ng/mL or less. Please see A&P for additional details of medical decision making. David Lara PA-C Acute Care Pain Management Team Hours of pain coverage Mon-Fri 8-1600, afterhours please call the warehouse consultant [facility] ([place], [place], [place], [place]) Page via [employer] console -Click for BookTour * Ashia Rincon LICSW - 03/07/2024 3:28 PM CDTAssociated Order(s): SOCIAL WORK IP CONSULT Summary: Consult cleared for financial matters Consult cleared for financial matters. ROSE sent message for financial counselor to see patient abouta secondary insurance. HESHMA Yu Stonecutter Hand Inpatient Care Coordination Human Resources District Manager Soil Conservation Aide [facility] [phone] * Jose Eduardo Jaeger DO - 03/07/2024 9:24 AM CDTAssociated Order(s): NEPHROLOGY IP CONSULT [facility] Nephrology Consultation Date of Admission: 03/06/2024 Assessment & Plan Lorraine Klein is a 33 year old female who was admitted on 03/06/2024. Assessment: 1) acute kidney injury, nonoliguric clearly related to prerenal state with significant treatment with IV fluids. This has been recurrent issue with contraction alkalosis, hypovolemia and recurrent BARBARA. Recurrent BARBARA's may be now causing some incomplete recovery and subsequent CKD Will not know new baseline CKD related GFR in last we see a steady state in a euvolemic state. 2) presumable Gettleman syndrome: Reported genetic testing pending Variable treatments over the years with most recent regimen of spironolactone and potassium chloride. She tends to try to have high fluid intake, high salt intake as well as high potassium intake through her diet. Failure in the past with reports with infections, no improvement documented by Dr. Garcia related to home IV fluids. 3) hypercalcemia, noted high-protein and albumin related to volume contraction. Calcium improved to10.3 today. Discussed avoiding Tums that she takes at night for reflux. No benefit with Pepcid or Zantac in the past but should start a PPI with any recurrent knee related to acid reflux. Other: Clearly patient's medical care is complicated with psychosocial issues. In the past has been followed by mental health, unclear if actively seeing providers currently. Anemia with history of iron deficiency Plan/Recs: 1) fluids changed to normal saline with additional potassium chloride, continue 125 cc/h 2) starting supplement potassium chloride, 60 meq 3 times daily orally 3) will resume spironolactone at [facility] dose when GFR normalized or closer to expected baseline Jose Eduardo Jaeger DO [facility] - Nephrology [phone] Reason for Consult I was asked to see the patient for acute kidney injury History is obtained from the patient and chart review. History of Present Illness Lorraine Klein is a 33 year old female who has longstanding history of Gettleman syndrome. Reports that first manifested at age 15 and she reports spent 10 years undergoing stressors related to being told she had an eating disorder. 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 Notes a fine going back to 2014 which documented Gettleman syndrome. Has been seen by numerous roller presser operator around the [facility]. For many years different notes reviewed from [facility] nephrology with Dr.Ann Bronson being the most recent. For years follow with Dr. Nereyda Garcia through [facility]. Has now established care through a new [facility] provider Dr. Benavides withonly 2 recent visits on fifth and 11th of this month. On review, patient has had at least 8 admissions this year, mostly at [facility]. Most days have been overnight admissions where she gets fluids, potassium and discharged. Patient is reportedly taking 80 mEq potassium chloride 5 times a day in addition to spironolactone 50 mg twice daily. In the past she was on amiloride until this was stopped due to concerns of combination spironolactone and amiloride causing volume depletion. She was in the past on sodium chloride tablets although stopped as she felt she could compensate with a high sodium intake. Many questions into compliance, adherence to medications. She reports bad outcomes with [facility] and Dr. Garcia although it appears that many of these issues are related to being question regarding to compliance. Documented that she is taking medications that are not been filled for a very prolonged time despite her insistence. Today I discussed with her new roller presser operator her current cares. She brought in a recent 24 urine collection which was 1.4 L total volume, not tested because of a question of or collection. Past Medical History I have reviewed this patient's medical history and updated it with pertinent information if needed. Past Medical History: Diagnosis Date Anemia Depressive disorder Fibromyalgia Gastroparesis Gitelman syndrome 10/28/2017 IBS (irritable bowel syndrome) SBO (small bowel obstruction) (H) Past Surgical History I have reviewed this patient's surgical history and updated it with pertinent information if needed. Past Surgical History: Procedure Laterality Date APPENDECTOMY [...] Reported? Taking? HYDROmorphone (DILAUDID) 4 MG tablet Yes Yes Sig: Take 2-4 mg by mouth every 6 hours as needed for pain. #12 dispensed calcium carbonate (TUMS) 500 MG chewable tablet Yes Yes Sig: Take 1-2 chew tab by mouth daily as needed for heartburn ferrous sulfate 325 (65 Fe) MG TBEC EC tablet 03/06/2024 at am Yes Yes Sig: Take 325 mg by mouth 3 times daily. With food or snack gabapentin (NEURONTIN) 100 MG capsule 03/05/2024 at hs Yes Yes Sig: Take 100 mg by mouth At Bedtime (Plus 300mg for total 400mg at bedtime) gabapentin (NEURONTIN) 300 MG capsule 03/06/2024 at am Yes Yes Sig: Take 300 mg by mouth 3 times daily hydrOXYzine (ATARAX) 25 MG tablet 03/02/2024 No Yes Sig: Take 1-2 tablets (25-50 mg) by mouth every 6 hours as needed for other (adjuvant pain) magnesium oxide (MAG-OX) 400 MG tablet 03/06/2024 at am Yes Yes Sig: Take 400 mg by mouth 3 times daily methocarbamol (ROBAXIN) 750 MG tablet Yes Yes Sig: Take 750 mg by mouth every 6 hours as needed for muscle spasms. multivitamin, therapeutic (THERA-VIT) TABS 03/06/2024 at am Self Yes Yes Sig: Take 1 tablet by mouth daily potassium chloride deanne ER (KLOR-CON M20) 20 MEQ CR tablet 03/06/2024 at 2x Yes Yes Sig: Take 80 mEq by mouth 5 times daily. spironolactone (ALDACTONE) 50 MG tablet Not Taking at her MD wants to HOLD Yes No Sig: Take 50 mg by mouth daily Patient not taking: Reported on 03/06/2024 Facility-Administered Medications: None Allergies Allergies Allergen Reactions [...] Other reaction(s): Other (see comments) Social History I have reviewed this patient's social history and updated it with pertinent information if needed. Lorraine Bonner [place] reports that she has never smoked. She has never used smokeless tobacco. She reports that she does not drink alcohol and does not use drugs. Family History I have reviewed this patient's family history and updated it with pertinent information if needed. Family History Problem Relation Age of Onset Other - See Comments Father Hypokalemia Hypothyroidism Mother Juvenile idiopathic arthritis Sister Breast Cancer Maternal Grandmother Colon Cancer Paternal Uncle Review of Systems The 10 point Review of Systems is negative other than noted in the HPI. Physical Exam Temp: 97.7 ??F (36.5 ??C) Temp src: Oral BP: 133/77 Pulse: 76 Resp: 20 SpO2: 100 % O2 Device: None (Room air) Vital Signs with Ranges Temp: [97.7 ??F (36.5 ??C)-99.5 ??F (37.5 ??C)] 97.7 ??F (36.5 ??C) Pulse: [66-111] 76 Resp: [10-28] 20 BP: (113-153)/(59-102) 133/77 SpO2: [90 %-100 %] 100 % 109 lbs 12.8 oz GENERAL: healthy, alert, NAD HEENT: Normocephalic. No gross abnormalities. Pupils equal. Some abnormal dentition noted CV: RRR, no murmurs, no edema RESP: Clear bilaterally with good efforts GI: Abdomen soft/nt/nd, BS normal. MUSCULOSKELETAL: extremities nl - no gross deformities noted SKIN: no suspicious lesions or rashes, dry to touch NEURO: Grossly nonfocal PSYCH: mood good, affect appropriate Data BMP Recent Labs Lab 03/06/24 1419 NA 137 POTASSIUM 3.3* CHLORIDE 79* ELKE 13.2* CO2 40* BUN 47.9* CR 3.54* GLC 99 [email or web address](phos:4) CBC) Recent Labs Lab 03/06/24 1419 WBC 7.2 HGB 10.3* HCT 31.1* MCV 82 PLT 520* Recent Labs Lab 03/06/24 1419 AST 22 ALT 14 ALKPHOS 140 BILITOTAL 0.3 No lab results found in last 7 days. 25 OH Vit D2 Date Value Ref Range Status 03/20/2007 <5 ug/L Final 25 OH Vit D3 Date Value Ref Range Status 03/20/2007 58 ug/L Final 25 OH Vit D total Date Value Ref Range Status 03/20/2007 <63 ug/L Final Comment: Season, race, dietary intake, and treatment affect the concentration of [id number]-[id number] D. Values may decrease during winter months and increase during summer months. Values less than 30 ug/L may indicate Vitamin D deficiency. Recent Labs Lab 03/06/24 1419 HGB 10.3* HCT 31.1* MCV 82 No results for input(s): PTHI in the last 168 hours. * Sean Freeman MD - 03/06/2024 5:58 PM CDTAssociated Order(s): NEPHROLOGY IP CONSULT Pt discussed with IM and chart reviewed.Full consult in am. Pt with BARABRA: dehydration, hypercalcemia. Concern re: vomiting or bulemia given severe metabolic alkalosis. 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 HE[facility] COUNSELOR on spironolactone 50 mg per day, KCL 80 meq 5 X per day (!), magnesium oxide, CaCO3. Hx of recent pelvic fracture with limited ambulation. Evaluation shows US with no hydro. Cr 3.54 (baseline 0.96), K 3.3, HCO3 40 and Cr 3.54. Ca 13.2, phos 3.4, Mg 2.6. VBG shows marked metabolic alkalosis. BARBARA: pre-renal due to vomiting and DI from hypercalcemia. Will give vigorous IVF. Stop oral K and spironolactone.Stop Magnesium supplements. Metabolic alkalosis: ? Vomiting. Also hx of tubular disorder. Will check urine electrolytes. IVF with NS. Hypercalcemia: Contribution of immobilization after pelvic fracture. check vit D levels. No CaCO3 po. Vigorous IVF. NS bolus X 2 L and NS at 150 ml/h. Check labs in am. Anemia: likely Fe def. Check iron, tsat, ferritin, B12 and folate with am labs. Replace parenterally as indicated. documented in this encounter ED Notes * Laura Downing RN - 03/06/2024 4:50 PM CDT [facility] ED Nurse Handoff Report ED Chief complaint: Abnormal Labs . ED Diagnosis: Final diagnoses: BARBARA (acute kidney injury) (H24) Gitelman syndrome Hypercalcemia Allergies: Allergies Allergen Reactions Iron Sucrose Anxiety [...] Status: Full Code Activity level - Baseline/Home: independent. Activity Level - Current: standby. Lift room needed: No. Bariatric: No [place] Nurse Needed: No Isolation: No. Infection: Not Applicable. Respiratory status: Room air Vital Signs (within 30 minutes): Vitals: 03/06/24 1505 03/06/24 1542 03/06/24 1600 03/06/24 1605 BP: (!) 126/93 Pulse: 96 81 Resp: 15 14 Temp: TempSrc: SpO2: 100% 99% 99% Weight: Height: Cardiac Rhythm: , Pain level: Patient confused: No. Patient Falls Risk: nonskid shoes/slippers when out of bed, arm band in place, patient and family education, activity supervised, and toileting schedule implemented. Elimination Status: Has voided Patient Report - Initial Complaint: Abnormal labs. Focused Assessment: ED arrival note: Pt presents to the ED stating her kidney doctor told her to come to the ED becauseher creatinine and GFR is off. Pt also states she fractured her right hip 3 weeks ago and on her x-ray pt showed no sign of bone healing. Pt pain 10/10 and pt having trouble sitting. MusculoskeletalMusculoskeletal WDL: .WDL except (L hip fracture from previous, able to ambulate with pain; generalized fatigue; CMS intact) Genitourinary (Adult)Genitourinary WDL: .WDL except (frequency, denies dysuria or foul smelling urine; hx gitelman's syndrome, follows with nephrology) Abnormal Results: Labs Ordered and Resulted from Time of ED Arrival to Time of ED Departure MAGNESIUM - Abnormal Result Value Magnesium 2.6 (*) IONIZED CALCIUM - Abnormal Calcium Ionized Whole Blood 5.6 (*) COMPREHENSIVE METABOLIC PANEL - Abnormal Sodium 137 Potassium 3.3 (*) Carbon Dioxide (CO2) 40 (*) Anion Gap 18 (*) Urea Nitrogen 47.9 (*) Creatinine 3.54 (*) GFR Estimate 17 (*) Calcium 13.2 (*) Chloride 79 (*) Glucose 99 Alkaline Phosphatase 140 AST 22 ALT 14 Protein Total 8.8 (*) Albumin 5.2 Bilirubin Total 0.3 CBC WITH PLATELETS AND DIFFERENTIAL - Abnormal WBC Count 7.2 RBC Count 3.80 Hemoglobin 10.3 (*) Hematocrit 31.1 (*) MCV 82 MCH 27.1 MCHC 33.1 RDW 17.9 (*) Platelet Count 520 (*) % Neutrophils 55 % Lymphocytes 32 % Monocytes 9 % Eosinophils 3 % Basophils 1 % Immature Granulocytes 0 NRBCs per 100 WBC 0 Absolute Neutrophils 4.0 Absolute Lymphocytes 2.3 Absolute Monocytes 0.6 Absolute Eosinophils 0.2 Absolute Basophils 0.1 Absolute Immature Granulocytes 0.0 Absolute NRBCs 0.0 PHOSPHORUS - Normal Phosphorus 3.4 BLOOD GAS VENOUS US Renal Complete Non-Vascular Final Result IMPRESSION: Unremarkable renal ultrasound examination. No hydronephrosis. THANH BARGER MD SYSTEM ID: [id number] Treatments provided: See MAR Family Comments: N/A OBS brochure/video discussed/provided to patient: N/A ED Medications: Medications Lidocaine (LIDOCARE) 4 % Patch 1 patch (has no administration in time range) sodium chloride 0.9% BOLUS 1,000 mL (0 mLs Intravenous Stopped 03/06/24 1533) HYDROmorphone (DILAUDID) injection 1 mg (1 mg Intravenous $Given 03/06/24 1427) HYDROmorphone (DILAUDID) injection 1 mg (1 mg Intravenous $Given 03/06/24 1532) Drips infusing: No For the majority of the shift this patient was Green. Interventions performed were N/A. Sepsis treatment initiated: No Cares/treatment/interventions/medications to be completed following ED care: UA needed on ice for bicarbonate urine ED Nurse Name: Alesha Martin RN 4:51 PM RECEIVING UNIT ED HANDOFF REVIEW Above ED Nurse Handoff Report was reviewed: Yes Reviewed by: Laura Downing RN on March 06, 2024 at 7:58 PM I Emy called the ED to inform them the note was read: Yes * Ezequiel Valladares MD - 03/06/2024 2:08 PM CDT Emergency Department Note History of Present Illness Chief Complaint Abnormal Labs HPI Lorraine Klein is a 33 year old female with a history of Gitelman syndrome, stage 5 CKD, and anemia who presents to the ED for evaluation of abnormal labs. The patient states she had kidney function tests done recently and was called today to be seen here after they showed her GFR was abnormal and her creatinine and calcium were high. She has a history of hypercalcemia and is not currently oncalcium supplementation or taking TUMS regularly. Notes a history of Gitelman Syndrome that she hasbeen seen by a Computer Art Instructor for. Also reports a inferior right ramus fracture about 3 weeks ago dueto syncope with a fall that has not been healing and is continuing to have pain. A hip x-ray and CTwere done during a recent hospital admission that confirmed this. She is taking oral dilaudid for the pain with no relief. Independent Historian None Review of External Notes I reviewed the discharge summary from 03/01/24. Reviewed the hip x-ray from 02/13/[address] pelvis from 02/15/24 which both show an inferior ramus fracture. Past Medical History Medical History and Problem List Anxiety Cachexia CKD, stage 5 Gastroparesis IBS Opioid use disorder Depression BARBARA Anemia Depression Gitelman syndrome SBO Umbilical hernia Ventral hernia Syncope Medications Ventolin Diluadid Robaxin Percocet Tramadol Flexmid Gabapentin Hydroxyzine Oxycodone Spironolactone Surgical History Appendectomy Chest port placement Axilla lesion excision (L) Physical Exam Patient Vitals for the past 24 hrs: BP Temp Temp src Pulse Resp SpO2 Height Weight 03/06/24 1337 (!) 129/102 99.5 ??F (37.5 ??C) Oral 111 18 99 % 1.702 m (5' 7) 48.5 kg (106 lb 14.8oz) Physical Exam Vitals and nursing note reviewed. Constitutional: Comments: Cachectic thin appearing tearful HENT: Head: Normocephalic. Cardiovascular: Rate and Rhythm: Normal rate. Pulmonary: Effort: Pulmonary effort is normal. Abdominal: General: Abdomen is flat. Bowel sounds are normal. Musculoskeletal: Comments: Tender right inguinal canal and left hip. No step-off or deformity. Skin: General: Skin is warm. Capillary Refill: Capillary refill takes less than 2 seconds. Neurological: General: No focal deficit present. Mental Status: She is alert and oriented to person, place, and time. Diagnostics Lab Results Labs Ordered and Resulted from Time of ED Arrival to Time of ED Departure MAGNESIUM - Abnormal Result Value Magnesium 2.6 (*) IONIZED CALCIUM - Abnormal Calcium Ionized Whole Blood 5.6 (*) COMPREHENSIVE METABOLIC PANEL - Abnormal Sodium 137 Potassium 3.3 (*) Carbon Dioxide (CO2) 40 (*) Anion Gap 18 (*) Urea Nitrogen 47.9 (*) Creatinine 3.54 (*) GFR Estimate 17 (*) Calcium 13.2 (*) Chloride 79 (*) Glucose 99 Alkaline Phosphatase 140 AST 22 ALT 14 Protein Total 8.8 (*) Albumin 5.2 Bilirubin Total 0.3 CBC WITH PLATELETS AND DIFFERENTIAL - Abnormal WBC Count 7.2 RBC Count 3.80 Hemoglobin 10.3 (*) Hematocrit 31.1 (*) MCV 82 MCH 27.1 MCHC 33.1 RDW 17.9 (*) Platelet Count 520 (*) % Neutrophils 55 % Lymphocytes 32 % Monocytes 9 % Eosinophils 3 % Basophils 1 % Immature Granulocytes 0 NRBCs per 100 WBC 0 Absolute Neutrophils 4.0 Absolute Lymphocytes 2.3 Absolute Monocytes 0.6 Absolute Eosinophils 0.2 Absolute Basophils 0.1 Absolute Immature Granulocytes 0.0 Absolute NRBCs 0.0 BLOOD GAS VENOUS - Abnormal pH Venous 7.48 (*) pCO2 Venous 63 (*) pO2 Venous 27 Bicarbonate Venous 47 (*) Base Excess/Deficit Venous 20.7 (*) FIO2 0 Oxyhemoglobin Venous 42 (*) O2 Sat, Venous 42.8 (*) PHOSPHORUS - Normal Phosphorus 3.4 SODIUM RANDOM URINE Sodium Urine mmol/L 70 BICARBONATE URINE Imaging US Renal Complete Non-Vascular Final Result IMPRESSION: Unremarkable renal ultrasound examination. No hydronephrosis. THANH BARGER MD SYSTEM ID: [id number] EKG ECG taken at 1421, ECG read at 1429 Sinus rhythm No significant change as compared to prior, dated 01/31/23. Rate 80 bpm. VA interval 126 ms. QRS duration 72 ms. QT/QTc 408/470 ms. P-R-T axes 55 80 49. Independent Interpretation None ED Course Medications Administered Medications - No data to display Procedures Procedures Discussion of Management None ED Course ED Course as of 03/06/24 1431 Emiliana Mar 06, 2024 1429 I obtained history and performed a physical exam as noted above. Additional Documentation None Medical Decision Making / Diagnosis [facility] Diagnoses: None MIPS None MDM Lorraine Klein is a 33 year old female who presents with noted Gittleman syndrome also chronic pain on pain medication and recent fracture to the hip recent hospitalization. Insurance issues history is very convoluted. Did speak to her primary roller presser operator with [facility] who recommends she be admitted here reasons for this are unclear to this physician. Patient does have worsening acute kidney injury because of which is unclear patient is quite complicated due to electrolyte balance and her history of Gettleman syndrome care was discussed with the hospitalist will admit as an inpatient due to needs for slow IV hydration and reassessment of hypercalcemia and acute on chronic kidney injury. Disposition The patient was admitted to the hospital. Diagnosis ICD-10-CM 1. BARBARA (acute kidney injury) (H24) N17.9 2. Gitelman syndrome E83.42 E87.6 3. Hypercalcemia E83.52 Discharge Medications New Prescriptions No medications on file Scribe Disclosure: I, Jackie Owusuroyce, am serving as a scribe at 2:08 PM on 03/06/2024 to document services personally performed by Ezequiel Valladares MD based on my observations and the provider's statements to me. Ezequiel Valladares MD 03/07/24 1723 * Liza Patten RN - 03/06/2024 1:38 PM CDT Pt presents to the ED stating her kidney doctor told her to come to the ED because her creatinine and GFR is off. Pt also states she fractured her right hip 3 weeks ago and on her x-ray pt showed no sign of bone healing. Pt pain 10/10 and pt having trouble sitting. documented in this encounter Miscellaneous Notes * Plan of Care - Kika Phelps RN - 03/12/2024 2:06 PM CDT Pt A&Ox4. Up ad kathy. Pain management consulted with patient and made medication changes. Scheduled oral dilaudid, tylenol, robaxin ordered. Prn oral/IV dilaudid and atarax also available. Pain level ranges between 6-9. Pt ambulated hallways x 2. Lung sounds clear. Cr 1.68, K 3 - nephrology restarted scheduled potassium. 24 hr urine collection completed and sent to lab. Nephrology and pain management following. Patient discharged at 1406 with discharge instructions and belongings. Picking up discharge medications at home pharmacy. Mom providing transport. Goal Outcome Evaluation: Plan of Care Reviewed With: patient Overall Patient Progress: no changeOverall Patient Progress: no change Outcome Evaluation: pain management consulted with patient. Problem: Adult Inpatient Plan of Care Goal: Plan of Care Review Description: The Plan of Care Review/Shift note should be completed every shift. The Outcome Evaluation is a brief statement about your assessment that the patient is improving, declining, or no change. This information will be displayed automatically on your shift note. Outcome: Progressing Flowsheets (Taken 03/12/2024 1314) Outcome Evaluation: pain management consulted with patient. Plan of Care Reviewed With: patient Overall [...] Manage Fall Risk Recent Flowsheet Documentation Taken 03/12/2024 1019 by Kika Phelps, RN Safety Promotion/Fall Prevention: safety round/check completed Taken 03/12/2024 0848 by Kika Phelps, RN Safety Promotion/Fall Prevention: safety round/check completed Taken 03/12/2024 0730 by Kika Phelps, RN Safety Promotion/Fall Prevention: safety round/check completed Intervention: Prevent Skin Injury Recent Flowsheet Documentation Taken 03/12/2024 0848 by Kika Phelps, RN Body Position: position changed independently Intervention: Prevent and Manage VTE (Venous Thromboembolism) Risk Recent Flowsheet Documentation Taken 03/12/2024 0848 by Kika Phelps RN VTE Prevention/Management: SCDs off (sequential compression devices) Goal: Optimal Comfort and Wellbeing Outcome: Progressing Intervention: Monitor Pain and Promote Comfort Recent Flowsheet Documentation Taken 03/12/2024 1301 by Kika Phelps RN Pain Management Interventions: medication (see MAR) Taken 03/12/2024 1015 by Kika Phelps RN Pain Management Interventions: medication (see MAR) Taken 03/12/2024 0922 by Kika Phelps RN Pain Management Interventions: medication (see MAR) Taken 03/12/2024 0839 by Kika Phelps RN Pain Management Interventions: medication (see MAR) heat applied Goal: Readiness for Transition of Care Outcome: Progressing * Plan of Care - Martin Baum RN - 03/12/2024 7:51 AM CDT Pt is alert and oriented. PRN IV dilaudid and Robaxin. Pt denies any shortness of breath and on room air. Pt ambulates independently in room. 24 hour urine collection maintained through this shift. Ongoingmonitoring. Plan: Pain service, Nephro following. BP 101/67 (BP Location: Left arm) Pulse 82 Temp 98 ??F (36.7 ??C) (Oral) Resp 18 Ht 1.702 m(5' 7) Wt 47.8 kg (105 lb 6.4 oz) SpO2 99% BMI 16.51 kg/m?? Problem: Adult Inpatient Plan of Care Goal: Plan of Care Review Description: The Plan of Care Review/Shift note should be completed every shift. The Outcome Evaluation is a brief statement about your assessment that the patient is improving, declining, or no change. This information will be displayed automatically on your shift note. Outcome: Progressing Flowsheets (Taken 03/12/2024 0750) Outcome Evaluation: PRN pein meds administered to manage pain. Plan of Care Reviewed With: patient Overall [...] Manage Fall Risk Recent Flowsheet Documentation Taken 03/12/2024 0600 by Martin Baum RN Safety Promotion/Fall Prevention: safety round/check completed Taken 03/12/2024 0500 by Martin Baum RN Safety Promotion/Fall Prevention: safety round/check completed Taken 03/12/2024 0400 by Martin Baum RN Safety Promotion/Fall Prevention: safety round/check completed Taken 03/12/2024 0300 by Martin Baum RN Safety Promotion/Fall Prevention: safety round/check completed Taken 03/12/2024 0200 by Martin Baum RN Safety Promotion/Fall Prevention: safety round/check completed Taken 03/12/2024 0100 by Martin Baum RN Safety Promotion/Fall Prevention: safety round/check completed Taken 03/12/2024 0040 by Martin Baum RN Safety Promotion/Fall Prevention: safety round/check completed patient and family education lighting adjusted assistive device/personal items within reach clutter free environment maintained Taken 03/12/2024 0000 by Martin Baum RN Safety Promotion/Fall Prevention: safety round/check completed Taken 03/11/2024 2300 by Martin Baum RN Safety Promotion/Fall Prevention: safety round/check completed Intervention: Prevent and Manage VTE (Venous Thromboembolism) Risk Recent Flowsheet Documentation Taken 03/12/2024 0040 by Martin Baum RN VTE Prevention/Management: SCDs off (sequential compression devices) Intervention: Prevent Infection Recent Flowsheet Documentation Taken 03/12/2024 0040 by Martin Baum RN Infection Prevention: single patient room provided rest/sleep promoted hand hygiene promoted Goal: Optimal Comfort and Wellbeing Outcome: Progressing Intervention: Monitor Pain and Promote Comfort Recent Flowsheet Documentation Taken 03/12/2024 0441 by Martin Baum RN Pain Management Interventions: medication (see MAR) Taken 03/12/2024 011 by Martin Baum RN Pain Management Interventions: (ice applied) other (see comments) Taken 03/12/2024 004 by Martin Baum RN Pain Management Interventions: medication (see MAR) Goal: Readiness for Transition of Care Outcome: Progressing Problem: Electrolyte Imbalance Goal: Electrolyte Balance Outcome: Progressing Problem: Pain Acute Goal: Optimal Pain Control and Function Outcome: Progressing Intervention: Develop Pain Management Plan Recent Flowsheet Documentation Taken 03/12/2024 044 by Martin Baum RN Pain Management Interventions: medication (see MAR) Taken 03/12/2024 011 by Martin Baum RN Pain Management Interventions: (ice applied) other (see comments) Taken 03/12/2024 004 by Martin Baum RN Pain Management Interventions: medication (see MAR) Intervention: Prevent or Manage Pain Recent Flowsheet Documentation Taken 03/12/202439 by Martin Baum RN Medication Review/Management: medications reviewed Problem: Infection Goal: Absence of Infection Signs and Symptoms Outcome: Progressing Problem: Comorbidity Management Goal: Maintenance of Behavioral Health Symptom Control Outcome: Progressing Intervention: Maintain Behavioral Health Symptom Control Recent Flowsheet Documentation Taken 03/12/202439 by Martin Baum RN Medication Review/Management: medications reviewed Goal Outcome Evaluation: Plan of Care Reviewed With: patient Overall Patient Progress: no changeOverall Patient Progress: no change Outcome Evaluation: PRN pein meds administered to manage pain. * Plan of Care - Barry Tillman RN - 03/11/2024 11:42 PM CDT Pt Aox4, calm and cooperative w cares. Reports pain 7-03/04, treated w PRN dilaudid, atarax, ribaxin, effective upon reassessments. Additional pain builds between dilaudid coverage w pain exacerbated w ambulation. Ind in room w walker, ambulation in halls w walker. Appetite and intake fair. Cont 24 hour urine collection. Pt preferred IV dilaudid for pain management, educated on potential benefits of transitioning to PO Q3 per orders for more consistent coverage. Pt preferred to cont w IV dilaudid. Goal Outcome Evaluation: Plan of Care Reviewed With: patient Overall Patient Progress: no changeOverall Patient Progress: no change Outcome Evaluation: Pt cont to prefer IV dilaudid for pain 8-9/10, effective upon reassessment. Problem: Adult Inpatient Plan of Care Goal: Plan of Care Review Description: The Plan of Care Review/Shift note should be completed every shift. The Outcome Evaluation is a brief statement about your assessment that the patient is improving, declining, or no change. This information will be displayed automatically on your shift note. Outcome: Progressing Flowsheets (Taken 03/11/2024 2341) Outcome Evaluation: Pt cont to prefer IV dilaudid for pain 8-9/10, effective upon reassessment. Plan of Care Reviewed With: patient Overall [...] Manage Fall Risk Recent Flowsheet Documentation Taken 03/11/2024 1600 by Barry Tillman RN Safety Promotion/Fall Prevention: safety round/check completed room organization consistent nonskid shoes/slippers when out of bed mobility aid in reach Goal: Optimal Comfort and Wellbeing Outcome: Progressing Goal: Readiness for Transition of Care Outcome: Progressing Problem: Electrolyte Imbalance Goal: Electrolyte Balance Outcome: Progressing Problem: Pain Acute Goal: Optimal Pain Control and Function Outcome: Progressing Intervention: Prevent or Manage Pain Recent Flowsheet Documentation Taken 03/11/2024 1600 by Barry Tillman RN Medication Review/Management: medications reviewed Problem: Infection Goal: Absence of Infection Signs and Symptoms Outcome: Progressing Problem: Comorbidity Management Goal: Maintenance of Behavioral Health Symptom Control Outcome: Progressing Intervention: Maintain Behavioral Health Symptom Control Recent Flowsheet Documentation Taken 03/11/2024 1600 by Barry Tillman events administrative assistant Review/Management: medications reviewed * Plan of Care - Kika Phelps RN - 03/11/2024 1:59 PM CDT Images from the original note were not included. Pt A&Ox4. C/o pain to R hip, prn pain medications given with some relief - Up ad kathy. Lung sounds clear. Cr 1.73, K 4. 24 hr urine collection started this AM. Nephrology following. Pain management team consulted. Discharge TBD. Goal Outcome Evaluation: Plan of Care Reviewed With: patient Overall Patient Progress: no changeOverall Patient Progress: no change Outcome Evaluation: IV dilaudid for pain. Problem: Adult Inpatient Plan of Care Goal: Plan of Care Review Description: The Plan of Care Review/Shift note should be completed every shift. The Outcome Evaluation is a brief statement about your assessment that the patient is improving, declining, or no change. This information will be displayed automatically on your shift note. Outcome: Progressing Flowsheets (Taken 03/11/2024 1124) Outcome Evaluation: IV dilaudid for pain. Plan of Care Reviewed With: patient Overall [...] Manage Fall Risk Recent Flowsheet Documentation Taken 03/11/2024 1005 by Kika Phelps RN Safety Promotion/Fall Prevention: safety round/check completed Taken 03/11/2024 0736 by Kika Phelps RN Safety Promotion/Fall Prevention: safety round/check completed Intervention: Prevent Skin Injury Recent Flowsheet Documentation Taken 03/11/2024 1005 by Kika Phelps RN Body Position: position changed independently Taken 03/11/2024 0736 by Kika Phelps RN Body Position: position changed independently Intervention: Prevent and Manage VTE (Venous Thromboembolism) Risk Recent Flowsheet Documentation Taken 03/11/2024 1005 by Kika Phelps RN VTE Prevention/Management: SCDs off (sequential compression devices) Goal: Optimal Comfort and Wellbeing Outcome: Progressing Intervention: Monitor Pain and Promote Comfort Recent Flowsheet Documentation Taken 03/11/2024 1050 by Kika Phelps RN Pain Management Interventions: cold applied repositioned Taken 03/11/2024 1003 by Kika Phelps RN Pain Management Interventions: medication (see MAR) cold applied Goal: Readiness for Transition of Care Outcome: Progressing * Plan of Care - Lo Mars RN - 03/11/2024 4:32 AM CDT VS stable. Complained of pain to right hip and pain med's given. Goal Outcome Evaluation: Plan of Care Reviewed With: patient Overall Patient Progress: no changeOverall Patient Progress: no change Outcome Evaluation: VS stable. Pain medication given for right hip pain. Problem: Adult Inpatient Plan of Care Goal: Plan of Care Review Description: The Plan of Care Review/Shift note should be completed every shift. The Outcome Evaluation is a brief statement about your assessment that the patient is improving, declining, or no change. This information will be displayed automatically on your shift note. Outcome: Progressing Flowsheets (Taken 03/11/2024 0431) Outcome Evaluation: VS stable. Pain medication given for right hip pain. Plan of Care Reviewed With: patient Overall [...] Manage Fall Risk Recent Flowsheet Documentation Taken 03/11/2024 0000 by Lo Mars RN Safety Promotion/Fall Prevention: lighting adjusted nonskid shoes/slippers when out of bed clutter free environment maintained Intervention: Prevent Skin Injury Recent Flowsheet Documentation Taken 03/11/2024 0000 by Lo Mars RN Body Position: position changed independently Intervention: Prevent and Manage VTE (Venous Thromboembolism) Risk Recent Flowsheet Documentation Taken 03/11/2024 0000 by Lo Mars RN VTE Prevention/Management: SCDs off (sequential compression devices) Intervention: Prevent Infection Recent Flowsheet Documentation Taken 03/11/2024 0000 by Lo Mars RN Infection Prevention: single patient room provided Goal: Optimal Comfort and Wellbeing Outcome: Progressing Intervention: Monitor Pain and Promote Comfort Recent Flowsheet Documentation Taken 03/11/2024 0358 by Lo Mars RN Pain Management Interventions: medication (see MAR) Taken 03/11/2024 0058 by Lo Mars RN Pain Management Interventions: medication (see MAR) Taken 03/11/2024 0006 by Lo Mars RN Pain Management Interventions: medication (see MAR) Goal: Readiness for Transition of Care Outcome: Progressing Problem: Electrolyte Imbalance Goal: Electrolyte Balance Outcome: Progressing Problem: Pain Acute Goal: Optimal Pain Control and Function Outcome: Progressing Intervention: Develop Pain Management Plan Recent Flowsheet Documentation Taken 03/11/2024 035 by Lo Mars RN Pain Management Interventions: medication (see MAR) Taken 03/11/2024 0058 by Lo Mars RN Pain Management Interventions: medication (see MAR) Taken 03/11/2024 0006 by Lo Mars RN Pain Management Interventions: medication (see MAR) Intervention: Prevent or Manage Pain Recent Flowsheet Documentation Taken 03/11/2024 0000 by Lo Mars RN Medication Review/Management: medications reviewed Intervention: Optimize Psychosocial Wellbeing Recent Flowsheet Documentation Taken 03/11/2024 0000 by Lo Mars RN Supportive Measures: active listening utilized Problem: Infection Goal: Absence of Infection Signs and Symptoms Outcome: Progressing Problem: Comorbidity Management Goal: Maintenance of Behavioral Health Symptom Control Outcome: Progressing Intervention: Maintain Behavioral Health Symptom Control Recent Flowsheet Documentation Taken 03/11/2024 0000 by Lo Mars RN Medication Review/Management: medications reviewed * Plan of Care - Nelly Houston RN - 03/10/2024 11:03 PM CDT Problem: Adult Inpatient Plan of Care Goal: Plan of Care Review Description: The Plan of Care Review/Shift note should be completed every shift. The Outcome Evaluation is a brief statement about your assessment that the patient is improving, declining, or no change. This information will be displayed automatically on your shift note. Outcome: Not Progressing Flowsheets (Taken 03/10/2024 2301) Outcome Evaluation: Pain meds given for 9/10 pain, pt was given dx of ostoporosis today. Up indep in room. Good appetite. Goal: Patient-Specific Goal (Individualized) Description: You can [...] Illness or Injury Outcome: Not Progressing Intervention: Identify and Manage Fall Risk Recent Flowsheet Documentation Taken 03/10/2024 1630 by Nelly Houston RN Safety Promotion/Fall Prevention: safety round/check completed Intervention: Prevent Skin Injury Recent Flowsheet Documentation Taken 03/10/2024 1630 by Nelly Houston RN Body Position: position changed independently Intervention: Prevent and Manage VTE (Venous Thromboembolism) Risk Recent Flowsheet Documentation Taken 03/10/2024 1630 by Nelly Houston RN VTE Prevention/Management: SCDs off (sequential compression devices) Goal: Optimal Comfort and Wellbeing Outcome: Not Progressing Goal: Readiness for Transition of Care Outcome: Not Progressing Problem: Electrolyte Imbalance Goal: Electrolyte Balance Outcome: Not Progressing Problem: Pain Acute Goal: Optimal Pain Control and Function Outcome: Not Progressing Intervention: Optimize Psychosocial Wellbeing Recent Flowsheet Documentation Taken 03/10/2024 1630 by Nelly Houston RN Supportive Measures: active listening utilized verbalization of feelings encouraged Problem: Infection Goal: Absence of Infection Signs and Symptoms Outcome: Not Progressing Problem: Comorbidity Management Goal: Maintenance of Behavioral Health Symptom Control Outcome: Not Progressing Goal Outcome Evaluation: Outcome Evaluation: Pain meds given for 9/10 pain, pt was given dx of ostoporosis today. Up indep in room. Good appetite. * Plan of Care - Kika Phelps RN - 03/10/2024 2:26 PM CDT Pt A&Ox4. C/o pain to R hip, prn pain medications given with some relief - able to get pain level to 5/10 but goes back to 10 frequently. Up ad katyh. Lung sounds clear. Cr 1.65, K 5.4 - scheduled potassium on hold. Nephrology following. Discharge TBD. Goal Outcome Evaluation: Plan of Care Reviewed With: patient Overall Patient Progress: no changeOverall Patient Progress: no change Outcome Evaluation: prn pain medications given for R hip, nephrology following. Problem: Adult Inpatient Plan of Care Goal: Plan of Care Review Description: The Plan of Care Review/Shift note should be completed every shift. The Outcome Evaluation is a brief statement about your assessment that the patient is improving, declining, or no change. This information will be displayed automatically on your shift note. Outcome: Progressing Flowsheets (Taken 03/10/2024 1154) Outcome Evaluation: prn pain medications given for R hip, nephrology following. Plan of Care Reviewed With: patient [...] Manage Fall Risk Recent Flowsheet Documentation Taken 03/10/2024 1150 by Kika Phelps RN Safety Promotion/Fall Prevention: safety round/check completed Taken 03/10/2024 0958 by Kika Phelps RN Safety Promotion/Fall Prevention: safety round/check completed Taken 03/10/2024 0727 by Kika Phelps RN Safety Promotion/Fall Prevention: safety round/check completed Intervention: Prevent Skin Injury Recent Flowsheet Documentation Taken 03/10/2024 1150 by Kika Phelps RN Body Position: position changed independently Intervention: Prevent and Manage VTE (Venous Thromboembolism) Risk Recent Flowsheet Documentation Taken 03/10/2024 1150 by Kika Phelps RN VTE Prevention/Management: SCDs off (sequential compression devices) Goal: Optimal Comfort and Wellbeing Outcome: Progressing Intervention: Monitor Pain and Promote Comfort Recent Flowsheet Documentation Taken 03/10/2024 1150 by Kika Phelps RN Pain Management Interventions: rest Taken 03/10/2024 1059 by Kika Phelps RN Pain Management Interventions: rest repositioned Taken 03/10/2024 1042 by Kika Phelps RN Pain Management Interventions: medication (see MAR) Taken 03/10/2024 0955 by Kika Phelps RN Pain Management Interventions: rest repositioned medication (see MAR) Taken 03/10/2024 0844 by Kika Phelps RN Pain Management Interventions: rest repositioned Taken 03/10/2024 0758 by Kika Phelps RN Pain Management Interventions: medication (see MAR) cold applied Taken 03/10/2024 0721 by Kika Phelps RN Pain Management Interventions: medication (see MAR) Goal: Readiness for Transition of Care Outcome: Progressing * Plan of Care - Milana Esparza RN - 03/10/2024 7:05 AM CDT Pt alert and oriented x 4. On RA. C/o right hip pain, PRN IV Dilaudid given x 2, pt educated regarding narcotics, as Pt denied P.O Dilaudid. Independent in room. PIV saline locked. Voiding adequately. Potassium trending down. Problem: Adult Inpatient Plan of Care Goal: Plan of Care Review Description: The Plan of Care Review/Shift note should be completed every shift. The Outcome Evaluation is a brief statement about your assessment that the patient is improving, declining, or no change. This information will be displayed automatically on your shift note. Outcome: Progressing Flowsheets (Taken 03/10/2024 0702) Outcome Evaluation: Pt alert and oriented x 4. On RA. C/o right hip pain, PRN IV Dilaudid given x 2, pt educated regarding narcotics, as Pt denied P.O Dilaudid. Independent in room. PIV saline locked. Voiding adequately. Potassium trending down. Plan of Care Reviewed With: patient Overall [...] for Transition of Care Outcome: Progressing Problem: Electrolyte Imbalance Goal: Electrolyte Balance Outcome: Progressing Problem: Pain Acute Goal: Optimal Pain Control and Function Outcome: Progressing Problem: Infection Goal: Absence of Infection Signs and Symptoms Outcome: Progressing Problem: Comorbidity Management Goal: Maintenance of Behavioral Health Symptom Control Outcome: Progressing Goal Outcome Evaluation: Plan of Care Reviewed With: patient Overall Patient Progress: no changeOverall Patient Progress: no change Outcome Evaluation: Pt alert and oriented x 4. On RA. C/o right hip pain, PRN IV Dilaudid given x 2, pt educated regarding narcotics, as Pt denied P.O Dilaudid. Independent in room. PIV saline locked. Voiding adequately. Potassium trending down. * Plan of Care - Vidya Cordoba RN - 03/09/2024 9:44 PM CDT Goal Outcome Evaluation: Plan of Care Reviewed With: patient Overall Patient Progress: improvingOverall Patient Progress: improving Outcome Evaluation: K back 4.8. Continue K PO 60 mg. Continue PRN pain medications per patient request, see MAR. Patient requesting IV DIlaudid, up independently. Problem: Adult Inpatient Plan of Care Goal: Plan of Care Review Description: The Plan of Care Review/Shift note should be completed every shift. The Outcome Evaluation is a brief statement about your assessment that the patient is improving, declining, or no change. This information will be displayed automatically on your shift note. Outcome: Progressing Flowsheets (Taken 03/09/20242140) Outcome Evaluation: K back 4.8. Continue K PO 60 mg. Continue PRN pain medications per patient request, see MAR. Patient requesting IV DIlaudid, up independently. Plan of Care Reviewed With: patient Overall [...] Manage Fall Risk Recent Flowsheet Documentation Taken 03/09/2024 170 by Vidya Cordoba RN Safety Promotion/Fall Prevention: assistive device/personal items within reach clutter free environment maintained nonskid shoes/slippers when out of bed Intervention: Prevent Skin Injury Recent Flowsheet Documentation Taken 03/09/2024 170 by Vdiya Cordoba RN Body Position: position changed independently Intervention: Prevent and Manage VTE (Venous Thromboembolism) Risk Recent Flowsheet Documentation Taken 03/09/2024 170 by Vidya Cordoba RN VTE Prevention/Management: (frequent ambulstion in room) SCDs off (sequential compression devices) Goal: Optimal Comfort and Wellbeing Outcome: Progressing Intervention: Monitor Pain and Promote Comfort Recent Flowsheet Documentation Taken 03/09/20241923 by Vidya Cordoba RN Pain Management Interventions: medication (see MAR) Taken 03/09/2024 174 by Vidya Cordoba RN Pain Management Interventions: medication (see MAR) Goal: Readiness for Transition of Care Outcome: Progressing Problem: Electrolyte Imbalance Goal: Electrolyte Balance Outcome: Progressing Problem: Pain Acute Goal: Optimal Pain Control and Function Outcome: Progressing Intervention: Develop Pain Management Plan Recent Flowsheet Documentation Taken 03/09/20241923 by Vidya Cordoba RN Pain Management Interventions: medication (see MAR) Taken 03/09/2024 174 by Vidya Cordoba RN Pain Management Interventions: medication (see MAR) * Plan of Care - Rere Fernandez RN - 03/09/2024 1:39 PM CDT VSS, continues to have pain, Previous Right hip fx non healing. PRN IV dilaudid,Robaxin, and Ataraxgiven as well. Pain improved. Cr 1.57, Nephrology following, IVF's dc'd, K+5.5, PO K+ decreased. Goal Outcome Evaluation: Plan of Care Reviewed With: patient Outcome Evaluation: Cr 1.57 K+5.5, IVF's dc'd. Nephrology following. Decreased PO K+. up ind. On PRN IV Dilaudid,Robaxin and Atarax for previous non healing right hip fx Problem: Adult Inpatient Plan of Care Goal: Plan of Care Review Description: The Plan of Care Review/Shift note should be completed every shift. The Outcome Evaluation is a brief statement about your assessment that the patient is improving, declining, or no change. This information will be displayed automatically on your shift note. Outcome: Progressing Flowsheets (Taken 03/09/2024 1337) Outcome Evaluation: Cr 1.57 K+5.5, IVF's dc'd. Nephrology following. Decreased PO K+. up ind. On PRN IV Dilaudid,Robaxin and Atarax for previous non healing right hip fx Plan of Care Reviewed With: patient Goal: [...] Manage Fall Risk Recent Flowsheet Documentation Taken 03/09/2024 0820 by Rere Fernandez RN Safety Promotion/Fall Prevention: lighting adjusted clutter free environment maintained Intervention: Prevent Skin Injury Recent Flowsheet Documentation Taken 03/09/2024 0820 by Rere Fernandez, RN Body Position: position changed independently Goal: Optimal Comfort and Wellbeing Outcome: Progressing Goal: Readiness for Transition of Care Outcome: Progressing Problem: Electrolyte Imbalance Goal: Electrolyte Balance Outcome: Progressing Problem: Pain Acute Goal: Optimal Pain Control and Function Outcome: Progressing * Plan of Care - Lakshmi Robison RN - 03/09/2024 4:11 AM CDT Pt A&O x4. Tolerating IV fluids well. Will continue to monitor. Problem: Adult Inpatient Plan of Care Goal: Plan of Care Review Description: The Plan of Care Review/Shift note should be completed every shift. The Outcome Evaluation is a brief statement about your assessment that the patient is improving, declining, or no change. This information will be displayed automatically on your shift note. Outcome: Progressing Flowsheets (Taken 03/09/2024 0408) Outcome Evaluation: Pain Plan of Care Reviewed With: patient Overall [...] Manage Fall Risk Recent Flowsheet Documentation Taken 03/08/20242006 by Lakshmi Robison RN Safety Promotion/Fall Prevention: clutter free environment maintained safety round/check completed nonskid shoes/slippers when out of bed Intervention: Prevent Skin Injury Recent Flowsheet Documentation Taken 03/08/20242006 by Lakshmi Robison RN Body Position: position changed independently Intervention: Prevent and Manage VTE (Venous Thromboembolism) Risk Recent Flowsheet Documentation Taken 03/08/2024 2007 by Lakshmi Robison RN VTE Prevention/Management: SCDs off (sequential compression devices) Intervention: Prevent Infection Recent Flowsheet Documentation Taken 03/08/20242006 by Lakshmi Robison RN Infection Prevention: rest/sleep promoted single patient room provided Goal: Optimal Comfort and Wellbeing Outcome: Progressing Intervention: Monitor Pain and Promote Comfort Recent Flowsheet Documentation Taken 03/09/2024 0259 by Lakshmi Robison RNegyptologist Interventions: medication (see MAR) Taken 03/08/2024 2333 by Lakshmi Robison RNegyptologist Interventions: medication (see MAR) Taken 03/08/20242007 by Lakshmi Robison RNegyptologist Interventions: medication (see MAR) Taken 03/08/20242006 by Lakshmi Robison RNegyptologist Interventions: medication (see MAR) Goal: Readiness for Transition of Care Outcome: Progressing Problem: Electrolyte Imbalance Goal: Electrolyte Balance Outcome: Progressing Problem: Pain Acute Goal: Optimal Pain Control and Function Outcome: Progressing Intervention: Develop Pain Management Plan Recent Flowsheet Documentation Taken 03/09/2024 0259 by Lakshmi Robison RNegyptologist Interventions: medication (see MAR) Taken 03/08/2024 2333 by Lakshmi Robison RNegyptologist Interventions: medication (see MAR) Taken 03/08/20242007 by Lakshmi Robison RNegyptologist Interventions: medication (see MAR) Taken 03/08/20242006 by Lakshmi Robison RNegyptologist Interventions: medication (see MAR) Intervention: Prevent or Manage Pain Recent Flowsheet Documentation Taken 03/08/20242006 by Lakshmi Robison RN Medication Review/Management: medications reviewed Intervention: Optimize Psychosocial Wellbeing Recent Flowsheet Documentation Taken 03/08/20242006 by Lakshmi Robison RN Supportive Measures: active listening utilized decision-making supported Goal Outcome Evaluation: Plan of Care Reviewed With: patient Overall Patient Progress: no changeOverall Patient Progress: no change Outcome Evaluation: Pain being managed around the clock w/ prn dilaudid. Cr improving. * Plan of Care - Birgit Perea RN - 03/08/2024 4:47 PM CDT Goal Outcome Evaluation: Plan of Care Reviewed With: patient Pt A&O, independent for mobility, potassium were replaced, on continuing fluids, pt having a lot of pain, ate 100% of her meal, voided adequately Problem: Adult Inpatient Plan of Care Goal: Plan of Care Review Description: The Plan of Care Review/Shift note should be completed every shift. The Outcome Evaluation is a brief statement about your assessment that the patient is improving, declining, or no change. This information will be displayed automatically on your shift note. Outcome: Not Progressing Flowsheets (Taken 03/08/2024 1646) Outcome Evaluation: pt having a lot of pain PRN PAIN MEDS WERE GIVEN pain 8/10 all the time Plan of Care Reviewed With: patient Goal: [...] Illness or Injury Outcome: Not Progressing Intervention: Identify and Manage Fall Risk Recent Flowsheet Documentation Taken 03/08/2024 1638 by Birgit Perea RN Safety Promotion/Fall Prevention: safety round/check completed nonskid shoes/slippers when out of bed Intervention: Prevent Skin Injury Recent Flowsheet Documentation Taken 03/08/2024 1638 by Birgit Perea RN Body Position: position changed independently Intervention: Prevent and Manage VTE (Venous Thromboembolism) Risk Recent Flowsheet Documentation Taken 03/08/2024 1638 by Birgit Perea RN VTE Prevention/Management: SCDs off (sequential compression devices) Intervention: Prevent Infection Recent Flowsheet Documentation Taken 03/08/2024 1638 by Birgit Perea RN Infection Prevention: rest/sleep promoted hand hygiene promoted single patient room provided equipment surfaces disinfected Goal: Optimal Comfort and Wellbeing Outcome: Not Progressing Intervention: Monitor Pain and Promote Comfort Recent Flowsheet Documentation Taken 03/08/2024 1638 by Birgit Perea RN Pain Management Interventions: medication (see MAR) Goal: Readiness for Transition of Care Outcome: Not Progressing Flowsheets (Taken 03/08/2024 1646) Transportation Anticipated: family or friend will provide Concerns to be Addressed: basic needs care coordination/care conferences decision making home safety Intervention: Mutually Develop Transition Plan Recent Flowsheet Documentation Taken 03/08/2024 1646 by Birgit Perea RN Transportation Anticipated: family or friend will provide Concerns to be Addressed: basic needs care coordination/care conferences decision making home safety Problem: Electrolyte Imbalance Goal: Electrolyte Balance Outcome: Not Progressing Problem: Pain Acute Goal: Optimal Pain Control and Function Outcome: Not Progressing Intervention: Develop Pain Management Plan Recent Flowsheet Documentation Taken 03/08/2024 1638 by Birgit Perea RN Pain Management Interventions: medication (see MAR) Intervention: Prevent or Manage Pain Recent Flowsheet Documentation Taken 03/08/2024 1638 by Birgit Perea RN Medication Review/Management: medications reviewed , CMS intact, naked needs know. BP (!) 141/88 (BP Location: Left arm) Pulse 84 Temp 97.8 ??F (36.6 ??C) (Oral) Resp 18 Ht 1.702 m (5' 7) Wt 50.4 kg (111 lb 1.8 oz) SpO2 92% BMI 17.40 kg/m?? Outcome Evaluation: pt having a lot of pain PRN PAIN MEDS WERE GIVEN pain 8/10 all the time * Plan of Care - Rere Fernandez RN - 03/08/2024 10:26 AM CDT VSS, continues to have pain, Right hip previous fx not healing. PRN IV dilaudid,Robaxin, and Ataraxgiven as well. Pain improved. Cr 1.83, Nephrology following, IVF's changed. K+3.6 on PO K+. Goal Outcome Evaluation: Plan of Care Reviewed With: patient Outcome Evaluation: PRN pain meds given with some relief. Cr 1.83, Nephrology following. IVF's changed. K+3.6, on Scheduled PO K+. Up in room. Problem: Adult Inpatient Plan of Care Goal: Plan of Care Review Description: The Plan of Care Review/Shift note should be completed every shift. The Outcome Evaluation is a brief statement about your assessment that the patient is improving, declining, or no change. This information will be displayed automatically on your shift note. Outcome: Progressing Flowsheets (Taken 03/08/2024 1020) Outcome Evaluation: PRN pain meds given with some relief. Cr 1.83, Nephrology following. IVF's changed. K+3.6, on Scheduled PO K+. Up in room. Plan of Care Reviewed With: patient Goal: [...] Manage Fall Risk Recent Flowsheet Documentation Taken 03/08/2024812 by Rere Fernandez RN Safety Promotion/Fall Prevention: activity supervised lighting adjusted Intervention: Prevent Skin Injury Recent Flowsheet Documentation Taken 03/08/2024812 by Rere Fernandez RN Body Position: position changed independently Goal: Optimal Comfort and Wellbeing Outcome: Progressing Intervention: Monitor Pain and Promote Comfort Recent Flowsheet Documentation Taken 03/08/2024 09 by Rere Fernandez RNegyptologist Interventions: medication (see MAR) Taken 03/08/2024 08 by Rere Fernandez RNegyptologist Interventions: medication (see MAR) Goal: Readiness for Transition of Care Outcome: Progressing Problem: Electrolyte Imbalance Goal: Electrolyte Balance Outcome: Progressing Problem: Pain Acute Goal: Optimal Pain Control and Function Outcome: Progressing Intervention: Develop Pain Management Plan Recent Flowsheet Documentation Taken 03/08/2024 09 by Rere Fernandez RNegyptologist Interventions: medication (see MAR) Taken 03/08/2024810 by Rere Fernandez RNegyptologist Interventions: medication (see MAR) Intervention: Prevent or Manage Pain Recent Flowsheet Documentation Taken 03/08/2024812 by Rere Fernandez RN Medication Review/Management: medications reviewed * Plan of Care - Lakshmi Robison RN - 03/08/2024 6:29 AM CDT Pt A&O x4. Tolerating IV fluids well. Will continue to monitor. Problem: Adult Inpatient Plan of Care Goal: Plan of Care Review Description: The Plan of Care Review/Shift note should be completed every shift. The Outcome Evaluation is a brief statement about your assessment that the patient is improving, declining, or no change. This information will be displayed automatically on your shift note. Outcome: Progressing Flowsheets (Taken 03/08/2024 0617) Outcome Evaluation: Giving pain meds around the clock as needed. Cr 2.85 - improving. Plan of Care Reviewed With: patient Overall [...] Manage Fall Risk Recent Flowsheet Documentation Taken 03/07/20242149 by Lakshmi Robison RN Safety Promotion/Fall Prevention: clutter free environment maintained safety round/check completed nonskid shoes/slippers when out of bed Intervention: Prevent Skin Injury Recent Flowsheet Documentation Taken 03/07/20242149 by Lakshmi Robison RN Body Position: position changed independently Intervention: Prevent and Manage VTE (Venous Thromboembolism) Risk Recent Flowsheet Documentation Taken 03/07/20242149 by Lakshmi Robison RN VTE Prevention/Management: SCDs off (sequential compression devices) Intervention: Prevent Infection Recent Flowsheet Documentation Taken 03/07/20242149 by Lakshmi Robison RN Infection Prevention: rest/sleep promoted single patient room provided Goal: Optimal Comfort and Wellbeing Outcome: Progressing Intervention: Monitor Pain and Promote Comfort Recent Flowsheet Documentation Taken 03/08/2024451 by Lakshmi Robison RNegyptologist Interventions: medication (see MAR) heat applied Taken 03/08/2024146 by Lakshmi Robison RNegyptologist Interventions: medication (see MAR) heat applied Taken 03/07/20242237 by Lakshmi Robison RNegyptologist Interventions: medication (see MAR) heat applied Taken 03/07/20242149 by Lakshmi Robison RNegyptologist Interventions: medication (see MAR) heat applied Goal: Readiness for Transition of Care Outcome: Progressing Problem: Electrolyte Imbalance Goal: Electrolyte Balance Outcome: Progressing Problem: Pain Acute Goal: Optimal Pain Control and Function Outcome: Progressing Intervention: Develop Pain Management Plan Recent Flowsheet Documentation Taken 03/08/2024451 by Lakshmi Robison RNegyptologist Interventions: medication (see MAR) heat applied Taken 03/08/2024146 by Lakshmi Robison RNegyptologist Interventions: medication (see MAR) heat applied Taken 03/07/20242237 by Lakshmi Robison RNegyptologist Interventions: medication (see MAR) heat applied Taken 03/07/20242149 by Lakshmi Robison RNegyptologist Interventions: medication (see MAR) heat applied Intervention: Prevent or Manage Pain Recent Flowsheet Documentation Taken 03/07/20240 by Lakshmi Robison RN Medication Review/Management: medications reviewed Goal Outcome Evaluation: Plan of Care Reviewed With: patient Overall Patient Progress: no changeOverall Patient Progress: no change Outcome Evaluation: Giving pain meds around the clock as needed. Cr 2.85 - improving. * Plan of Care - Kika Phelps RN - 03/07/2024 7:09 PM CDT Pt A&Ox4. C/o pain to R hip - prn medications given with some relief. On IVF w/ potassium. K 2.7. Cr 2.85. nephrology and SW following. Discharge date TBD. Goal Outcome Evaluation: Plan of Care Reviewed With: patient Overall Patient Progress: no changeOverall Patient Progress: no change Outcome Evaluation: prn given for pain. CR 2.85 Problem: Adult Inpatient Plan of Care Goal: Plan of Care Review Description: The Plan of Care Review/Shift note should be completed every shift. The Outcome Evaluation is a brief statement about your assessment that the patient is improving, declining, or no change. This information will be displayed automatically on your shift note. Outcome: Progressing Flowsheets (Taken 03/07/2024 1909) Outcome Evaluation: prn given for pain. CR 2.85 Plan of Care Reviewed With: patient Overall [...] Manage Fall Risk Recent Flowsheet Documentation Taken 03/07/2024 1634 by Kika Phelps RN Safety Promotion/Fall Prevention: safety round/check completed Taken 03/07/2024 1530 by Kika Phelps, RN Safety Promotion/Fall Prevention: safety round/check completed Intervention: Prevent Skin Injury Recent Flowsheet Documentation Taken 03/07/2024 1634 by Phelps, Kika, RN Body Position: position changed independently Intervention: Prevent and Manage VTE (Venous Thromboembolism) Risk Recent Flowsheet Documentation Taken 03/07/2024 1634 by Kika Phelps RN VTE Prevention/Management: SCDs off (sequential compression devices) Goal: Optimal Comfort and Wellbeing Outcome: Progressing Intervention: Monitor Pain and Promote Comfort Recent Flowsheet Documentation Taken 03/07/2024 1627 by Kika Phelps RN Pain Management Interventions: medication (see MAR) Taken 03/07/2024 1530 by Kika Phelps RN Pain Management Interventions: medication (see MAR) Goal: Readiness for Transition of Care Outcome: Progressing * Plan of Care - Reer Fernandez RN - 03/07/2024 12:23 PM CDT VSS, continues to have pain, Right hip previous fx not healing. MD aware changed freq IV dilaudid, Added Robaxin, PRN Atarax given as well. Pain improved. Cr 2.85, Nephrology following, IVF's changed, K+2.7. Goal Outcome Evaluation: Plan of Care Reviewed With: patient Outcome Evaluation: Continues to have pain, Right hip previous fx not healing. MD aware changed freq IV dilaudid, Added Robaxin, PRN Atarax given as well. Pain improved. Cr 2.85, Nephrology following, IVF's changed, K+2.7. Problem: Adult Inpatient Plan of Care Goal: Plan of Care Review Description: The Plan of Care Review/Shift note should be completed every shift. The Outcome Evaluation is a brief statement about your assessment that the patient is improving, declining, or no change. This information will be displayed automatically on your shift note. Outcome: Progressing Flowsheets (Taken 03/07/2024 1219) Outcome Evaluation: Continues to have pain, Right hip previous fx not healing. MD aware changed freq IV dilaudid, Added Robaxin, PRN Atarax given as well. Pain improved. Cr 2.85, Nephrology following, IVF's changed, K+2.7. Plan of Care Reviewed With: patient Goal: [...] Manage Fall Risk Recent Flowsheet Documentation Taken 03/07/2024 08 by Rere Fernandez RN Safety Promotion/Fall Prevention: activity supervised clutter free environment maintained lighting adjusted Intervention: Prevent Skin Injury Recent Flowsheet Documentation Taken 03/07/2024 08 by Rere Fernandez RN Body Position: position changed independently Goal: Optimal Comfort and Wellbeing Outcome: Progressing Intervention: Monitor Pain and Promote Comfort Recent Flowsheet Documentation Taken 03/07/2024 1021 by Rere Fernandez RNegyptologist Interventions: medication (see MAR) Taken 03/07/2024 08 by Rere Fernandez RNegyptologist Interventions: medication (see MAR) Goal: Readiness for Transition of Care Outcome: Progressing Problem: Electrolyte Imbalance Goal: Electrolyte Balance Outcome: Progressing Problem: Pain Acute Goal: Optimal Pain Control and Function Outcome: Progressing Intervention: Develop Pain Management Plan Recent Flowsheet Documentation Taken 03/07/2024 1021 by Rere Fernandez RNegyptologist Interventions: medication (see MAR) Taken 03/07/2024 08 by Rere Fernandez RNegyptologist Interventions: medication (see MAR) Intervention: Prevent or Manage Pain Recent Flowsheet Documentation Taken 03/07/2024 0815 by Rere Fernandez RN Medication Review/Management: medications reviewed * Plan of Care - Laura Downing RN - 03/07/2024 4:49 AM CDT A&O x4. Independent w/ walker (using one from home). 12 lead EKG done. See results for details.NS infusing at 125/hr through R. PIV. 1 fluid bolus given on shift as well. Nephrology consulted. Plan to continue fluids and evaluate labs this morning. Goal Outcome Evaluation: Plan of Care Reviewed With: patient Overall Patient Progress: no changeOverall Patient Progress: no change Outcome Evaluation: Pain relieved some with PRN and scheduled medications, and non pharmacological approaches. Fluids infusing in an effort to correct kidney labs and electrolytes. Problem: Adult Inpatient Plan of Care Goal: Plan of Care Review Description: The Plan of Care Review/Shift note should be completed every shift. The Outcome Evaluation is a brief statement about your assessment that the patient is improving, declining, or no change. This information will be displayed automatically on your shift note. Outcome: Not Progressing Flowsheets (Taken 03/07/2024 0447) Outcome Evaluation: Pain relieved some with PRN and scheduled medications, and non pharmacological approaches. Fluids infusing in an effort to correct kidney labs and electrolytes. Plan of Care Reviewed With: patient Overall [...] Illness or Injury Outcome: Not Progressing Intervention: Identify and Manage Fall Risk Recent Flowsheet Documentation Taken 03/07/2024 0215 by Laura Downing RN Safety Promotion/Fall Prevention: safety round/check completed activity supervised Taken 03/06/2024 2258 by Laura Downing RN Safety Promotion/Fall Prevention: safety round/check completed activity supervised Intervention: Prevent Skin Injury Recent Flowsheet Documentation Taken 03/07/2024 0215 by Laura Downing RN Body Position: position changed independently Taken 03/06/2024 2258 by Laura Downing RN Body Position: position changed independently Goal: Optimal Comfort and Wellbeing Outcome: Not Progressing Intervention: Monitor Pain and Promote Comfort Recent Flowsheet Documentation Taken 03/07/2024 0412 by Laura Downing RNegyptologist Interventions: rest heat applied cold applied Taken 03/07/2024 0226 by Laura Downing RNegyptologist Interventions: rest heat applied cold applied Taken 03/07/2024 0216 by Laura Downing RNegyptologist Interventions: (PRN IV Dilauded) medication (see MAR) Taken 03/06/2024 2329 by Laura Downing RNegyptologist Interventions: essential oils Taken 03/06/2024 2313 by Laura Downing RNegyptologist Interventions: cold applied Taken 03/06/2024 224 by Laura Downing RNegyptologist Interventions: (PRN dilauded) medication (see MAR) Taken 03/06/20242225 by Laura Downing RNegyptologist Interventions: (scheduled gabapentin) medication (see MAR) Taken 03/06/20242140 by Laura Downing RNegyptologist Interventions: heat applied Taken 03/06/20242053 by Laura Downing RNegyptologist Interventions: (Scheduled gabapentin) medication (see MAR) Goal: Readiness for Transition of Care Outcome: Not Progressing Intervention: Mutually Develop Transition Plan Recent Flowsheet Documentation Taken 03/06/20242247 by Laura Downing RN Equipment Currently Used at Home: walker, lucía Problem: Electrolyte Imbalance Goal: Electrolyte Balance Outcome: Not Progressing Problem: Pain Acute Goal: Optimal Pain Control and Function Outcome: Not Progressing Intervention: Develop Pain Management Plan Recent Flowsheet Documentation Taken 03/07/2024 0412 by Laura Downing RNegyptologist Interventions: rest heat applied cold applied Taken 03/07/2024 0226 by Laura Downing RNegyptologist Interventions: rest heat applied cold applied Taken 03/07/2024 0216 by Laura Downing RNegyptologist Interventions: (PRN IV Dilauded) medication (see MAR) Taken 03/06/2024 2329 by Laura Downing RNegyptologist Interventions: essential oils Taken 03/06/2024 2313 by Laura Downing RNegyptologist Interventions: cold applied Taken 03/06/2024 224 by Laura Downing RNegyptologist Interventions: (PRN dilauded) medication (see MAR) Taken 03/06/20242225 by Laura Downing RNegyptologist Interventions: (scheduled gabapentin) medication (see MAR) Taken 03/06/20242140 by Laura Downing RNegyptologist Interventions: heat applied Taken 03/06/20242053 by Laura Downing RNegyptologist Interventions: (Scheduled gabapentin) medication (see MAR) Intervention: Prevent or Manage Pain Recent Flowsheet Documentation Taken 03/07/2024 0215 by Laura Downing RN Medication Review/Management: medications reviewed Taken 03/06/2024 2258 by Laura Downing RN Medication Review/Management: medications reviewed * Pharmacy-Admission Medication History - Cale Giron RPH - 03/06/2024 6:26 PM CDT Pharmacist Admission Medication History Admission medication history is complete. The information provided in this note is only as accurateas the sources available at the time of the update. Information Source(s): Patient via in-person Pertinent Information: - pt takes KCL ER 20 meq tabs - 4 tabs (80 meq) 5 (five) times per day; - Spironolactone 50mg bid - her MD told her to stop using at this time; she had last dose last night. Changes made to HEALTH COUNSELOR medication list: Added: Dilaudid prn, Methocarbamol prn, Deleted: Oxycodone prn, Flexeril prn Changed: KCL, Allergies reviewed with patient and updates made in EHR: no Medication History Completed By: Cale Giron RPH 03/06/2024 6:26 PM HEALTH COUNSELOR Med List Medication Sig Last Dose calcium carbonate (TUMS) 500 MG chewable tablet Take 1-2 chew tab by mouth daily as needed for heartburn ferrous sulfate 325 (65 Fe) MG TBEC EC tablet Take 325 mg by mouth 3 times daily. With food or snack 03/06/2024 at am gabapentin (NEURONTIN) 100 MG capsule Take 100 mg by mouth At Bedtime (Plus 300mg for total 400mg at bedtime) 03/05/2024 at hs gabapentin (NEURONTIN) 300 MG capsule Take 300 mg by mouth 3 times daily 03/06/2024 at am HYDROmorphone (DILAUDID) 4 MG tablet Take 2-4 mg by mouth every 6 hours as needed for pain. hydrOXYzine (ATARAX) 25 MG tablet Take 1-2 tablets (25-50 mg) by mouth every 6 hours as needed for other (adjuvant pain) 03/02/2024 magnesium oxide (MAG-OX) 400 MG tablet Take 400 mg by mouth 3 times daily 03/06/2024 at am methocarbamol (ROBAXIN) 750 MG tablet Take 750 mg by mouth every 6 hours as needed for muscle spasms. multivitamin, therapeutic (THERA-VIT) TABS Take 1 tablet by mouth daily 03/06/2024 at am potassium chloride deanne ER (KLOR-CON M20) 20 MEQ CR tablet Take 80 mEq by mouth 5 times daily. 03/06/2024 at 2x documented in this encounter Plan of Treatment Scheduled Referrals Name Type Priority Associated Diagnoses Orde r Schedule Pain Management Clinical Dietetic Technician Referral Referral Routine: Next available opening Closed fracture of single ramus of right pubis, with delayed healing, subsequent encounter Expected: 03/11/2024 (Approximate), Expires: 03/11/2025 documented as of this encounter Procedures Procedure Name Priority Date/Time Associated Diagnosis Comments CALCIUM TIMED URINE Routine 03/12/2024 1 2:15 PM CDT POTASSIUM TIMED URINE Routine 03/12/2024 12:14 PM CDT PHOSPHORUS TIMED URINE Routine 12:14 PM CDT SODIUM TIMED URINE Routine 03/12/2024 12 :13 PM CDT CREATININE CLEARANCE, URINE Routine 03/12/2024 12:09 PM CDT CREATININE CLEARANCE Routine 03/12/2024 12:09 PM CDT EXTRA TUBE Routine 03/12/2024 7:22 AM CDT EXTRA PURPLE TOP TUBE Routine 03/12/2024 7:22 AM CDT BASIC METABOLIC PANEL Routine 03/12/2024 6:39 AM CDT RENAL PANEL STAT 03/11/2024 10:12 AM CDT PARATHYROID HORMONE INTACT STAT 03/11/2024 10:12 AM CDT IONIZED CALCIUM STAT 03/11/2024 10:12 AM CDT CYSTATIN C [...] METABOLIC PANEL STAT 03/08/2024 8:57 AM CDT PHOSPHORUS Routine 03/07/2024 8:46 AM CDT MAGNESIUM Routine 03/07/2024 8:46 AM CDT IRON AND IRON BINDING CAPACITY Routine 03/07/2024 8:46 AM CDT FOLATE Routine 03/07/2024 8:46 AM CDT VITAMIN B12 Routine 03/07/2024 8:46 AM CDT BASIC METABOLIC PANEL Routine 03/07/2024 8:46 AM CDT EKG 12-LEAD, TRACING ONLY Routine 03/06/2024 8:33 PM CDT BICARBONATE URINE STAT 03/06/2024 8:3 1 PM CDT SODIUM RANDOM URINE STAT 03/06/2024 7 :08 PM CDT POTASSIUM RANDOM URINE STAT 7:08 PM CDT CHLORIDE RANDOM URINE STAT 03/06/2024 7:08 PM CDT BLOOD GAS VENOUS STAT 03/06/2024 4:44 PM CDT US RENAL COMPLETE NON-VASCULAR STAT 03/06/2024 4:29 PM CDT EKG 12-LEAD, TRACING ONLY STAT 03/06/2024 2:21 PM CDT EXTRA HEPARINIZED SYRINGE STAT 03/06/2024 2:19 PM CDT EXTRA TUBE STAT 03/06/2024 2:19 PM CDT EXTRA RED TOP TUBE STAT 03/06/2024 2: 19 PM CDT EXTRA BLUE TOP TUBE STAT 03/06/2024 2 :19 PM CDT CBC WITH PLATELETS AND DIFFERENTIAL STAT 03/06/2024 2:19 PM CDT CBC WITH PLATELETS & DIFFERENTIAL STAT 03/06/2024 2:19 PM CDT VITAMIN D DEFICIENCY SCREENING Add-On 03/06/2024 2:19 PM CDT PHOSPHORUS STAT 03/06/2024 2:19 PM CDT MAGNESIUM STAT 03/06/2024 2:19 PM CDT COMPREHENSIVE METABOLIC PANEL STAT 03/06/2024 2:19 PM CDT IONIZED CALCIUM STAT 03/06/2024 2:19 PM CDT documented in this encounter Results * Calcium timed urine (03/12/2024 12:15 PM CDT) [facility] Calcium Urine mg/dL 10.4 mg/dL 03/12/2024 9:35 PM CDT [facility] Comment:The reference ranges have not been established in urine calcium. The results should be integrated into the clinical context for interpretation. Duration in hours 24.0 h RUKHSANA 03/12/2024 9:35 PM CDT [facility] Volume in mL 1,800 mL RUKHSANA 03/12/2024 9:35 PM CDT LABORATORY Calcium Urine g/spec 0.19 0.10 - 0.30 g/spec 03/12/2024 9:35 PM CDT [facility] Comment:Reference range appl icable for 24 hour only Urine URINE SPECIMEN OBTAINED BY CLEAN CATCH PROCEDURE / Unknown Non-blood Collection / Unknown 03/12/2024 12:15 PM CDT 03/12/2024 12:29 PM CDT Jose Eduardo Jaeger DO LAB - URINE ORDERABL ES Performing Organization Address City/[facility]/ZIP Co de Phone Number U [facility] Core Lab [address] [place] [address] Acute Care Lab [address] [facility] Lab (1st floor, no room number) [place] [id number] * Potassium timed urine (03/12/2024 12:14 PM CDT) Potassium Urine 66.2 mmol/L 9:21 PM CDT [facility] Comment:The reference ranges have not been established in urine potassium. The results should be integrated into the clinical context for interpretation. Duration in hours 24.0 h RUKHSANA 03/12/2024 9:21 PM CDT [facility] Volume in mL 1,800 mL [facility] 03/12/2024 9:21 PM CDT LABORATORY Potassium Urine mmol/spec 119 25 - 125 mmol/spec 03/12/2024 9:21 PM CDT [facility] Urine URINE SPECIMEN OBTAINED BY CLEAN CATCH PROCEDURE / Unknown Non-blood Collection / Unknown 03/12/2024 12:14 PM CDT 03/12/2024 12:29 PM CDT Jose Eduardo Jaeger DO LAB - URINE ORDERABL ES Performing Organization Address City/[facility]/ZIP Co de Phone Number [facility] [address] [facility], [address] [place] [address] Acute Care Lab [address] [facility], no room number) [place] [id number] * (ABNORMAL) Phosphorus timed urine (03/12/2024 12:14 PM CDT) Phosphorous Urine mg/dL 25.1(L) 40.0 - 136.0 mg/dL 03/12/2024 9:30 PM CDT [facility] Phosphorus Urine g/spec 0.45 0.40 - 1.30 g/spec 03/12/2024 9:30 PM CDT [facility] Duration in hours 24.0 h [facility] 03/12/2024 9:30 PM CDT [facility] Volume in mL 1,800 mL [facility] 03/12/2024 9:30 PM CDT [facility] Urine URINE SPECIMEN OBTAINED BY CLEAN CATCH PROCEDURE / Unknown Non-blood Collection / Unknown 03/12/2024 12:14 PM CDT 03/12/2024 12:29 PM CDT Jose Eduardo Jaeger DO LAB - URINE ORDERABL ES [facility] Core Lab [address] [facility], [address] [place] [id number] Acute Care Lab [address] [facility] Lab (1st floor, no room number) [place] [address], [facility] * Sodium timed urine (03/12/2024 12:13 PM CDT) Sodium Urine mmol/L 79 mmol/L 03/12/2024 1:56 PM CDT [facility] Comment:The reference ranges have not been established in urine sodium. The results should be integrated into the clinical context for interpretation. Sodium Urine mmol/spec 142 40 - 220 mmol/spec 03/12/2024 1:56 PM CDT [facility] Duration in hours 24.0 h RUKHSANA 03/12/2024 1:56 PM CDT [facility] Volume in mL 1,800 mL [facility] 03/12/2024 1:56 PM CDT LABORATORY Urine URINE SPECIMEN OBTAINED BY CLEAN CATCH PROCEDURE / Unknown Non-blood Collection / Unknown 03/12/2024 12:13 PM CDT 03/12/2024 12:29 PM CDT [facility] - URINE ORDERABL ES LABORATORY [facility] [address] [email or web address] Lab (1st floor, no room number) [place] [address] * (ABNORMAL) Creatinine Clearance, Urine (03/12/2024 12:09 PM CDT) Height in cm 149 cm [facility] 03/12/2024 4:43 PM CDT [facility] Weight in kg 48.0 kg [facility] 03/12/2024 4:43 PM CDT LABORATORY Creatinine 1.68(H) 0.51 - 0.95 mg/dL 03/12/2024 4:43 PM CDT LABORATORY Raw Clearance 35(L) 66 - 143 mL/min 03/12/2024 4:43 PM CDT [facility] Standard Clearance 43(L) 100 - 160 mL/min/1.7 m2 03/12/2024 4:43 PM CDT [facility] Volume in mL 1,800 mL [facility] 03/12/2024 4:43 PM CDT [facility] Duration in hours 24.0 h [facility] 03/12/2024 4:43 PM CDT LABORATORY Creatinine Urine mg/dL 46.6 mg/dL 03/12/2024 4:43 PM CDT LABORATORY Creatinine Urine Timed g/spec 0.84 0.72 - 1.51 g/spec 03/12/2024 4:43 PM CDT LABORATORY Urine URINE SPECIMEN OBTAINED BY CLEAN CATCH PROCEDURE / Unknown Non-blood Collection / Unknown 03/12/2024 12:09 PM CDT 03/12/2024 12:29 PM CDT Jose Eduardo Francismarti LAB - URINE ORDERABL ES LABORATORY [facility] [address] Lab (1st floor, no room number) [place] [address] * Extra Purple Top Tube (03/12/2024 7:22 AM CDT) Hold Specimen JI 03/12/2024 8:31 AM CDT LABORATORY Blood TOPOGRAPHY UNKNOWN / Unknown Venipuncture / Unknown 03/12/2024 7:22 AM CDT 03/12/2024 7:22 AM CDT Brendan Dominguez MD LAB - BLOOD ORDERABL ES LABORATORY [facility] [address] Lab (1st floor, no room number) [place] [address] * (ABNORMAL) Basic metabolic panel (03/12/2024 6:39 AM CDT) Sodium 139 135 - 145 mmol/L 03/12/2024 7:49 AM CDT LABORATORY Potassium 3.0(L) 3.4 - 5.3 mmol/L 03/12/2024 7:49 AM CDT LABORATORY Chloride 97(L) 98 - 107 mmol/L 03/12/2024 7:49 AM CDT LABORATORY Carbon Dioxide (CO2) 26 22 - 29 mmol/L 03/12/2024 7:49 AM CDT LABORATORY Anion Gap 16(H) 7 - 15 mmol/L 03/12/2024 7:49 AM CDT LABORATORY Urea Nitrogen 40.6(H) 6.0 - 20.0 mg/dL 03/12/2024 7:49 AM CDT LABORATORY Creatinine 1.68(H) 0.51 - 0.95 mg/dL 03/12/2024 7:49 AM CDT LABORATORY GFR Estimate 41(L) >60 mL/min/1.7 3m2 03/12/2024 7:49 AM CDT LABORATORY Comment:eGFR calculated usin 2020 CKD-EPI equation. Calcium 10.5(H) 8.8 - 10.4 mg/dL 03/12/2024 7:49 AM CDT LABORATORY Comment:Reference intervals for this test were updated on 01/08/2024 to reflect our healthy population more accurately. There may be differences in the flagging of prior results with similar values performed with this method. Those prior results can be interpreted in the context of the updated reference intervals. Glucose 83 70 - 99 mg/dL 03/12/2024 7:49 AM CDT LABORATORY Blood STRUCTURE OF RIGHT HAND / Unknown Venipuncture / Unknown 03/12/2024 6:39 AM CDT 03/12/2024 7:21 AM CDT Sheila Ferrer DO LAB - BLOOD ORDERABL ES Performing Organization Address City/[facility]/ZIP Co de Phone Number [facility] [address] [facility], no room number) [address] [place] [address] * Ionized Calcium (03/11/2024 10:12 AM CDT) Calcium Ionized Whole Blood 5.2 4.4 - 5.2 mg/dL 03/11/2024 10:20 AM CDT LABORATORY Blood STRUCTURE OF RIGHT HAND / Unknown Venipuncture / Unknown 03/11/2024 10:12 AM CDT 03/11/2024 10:19 AM CDT Jose Eduardo Francismichellemarti DO LAB - BLOOD ORDERABL ES Performing Organization Address City/[facility]/ZIP Co de Phone Number [facility] [address] Lab (1st floor, no room number) [place] [phone] [place] [address] * Parathyroid Hormone Intact (03/11/2024 10:12 AM CDT) Parathyroid Hormone Intact 57 15 - 65 pg/mL 03/11/2024 10:47 AM CDT LABORATORY Blood STRUCTURE OF RIGHT HAND / Unknown Venipuncture / Unknown 03/11/2024 10:12 AM CDT 03/11/2024 10:18 AM CDT Narrative LABORATORY - 03/11/2024 10:47 AM CDT This result was obtained with the [employer] PTH STAT assay. This reference range differs from PTH assays used in other [facility] laboratories. Jose Eduardo Jaeger DO LAB - BLOOD ORDERABL ES LABORATORY [facility] [address] [facility] Lab (1st floor, no room number) [place] [address], [facility] * (ABNORMAL) Renal panel (03/11/2024 10:12 AM CDT) [facility] Sodium 140 135 - 145 mmol/L 03/11/2024 [...] 10:45 AM CDT LABORATORY Comment:eGFR calculated usin g 2020 CKD-EPI equation. Calcium 10.4 8.8 - [...] - 5.2 g/dL 03/11/2024 10:45 AM CDT LABORATORY Phosphorus 2.0(L) 2.5 - 4.5 mg/dL 03/11/2024 10:45 AM CDT [facility] Blood STRUCTURE OF RIGHT HAND / Unknown Venipuncture / Unknown 03/11/2024 10:12 AM CDT 03/11/2024 10:19 AM CDT Jose Eduardo Jaeger DO LAB - BLOOD ORDERABL ES [facility] LABORATORY [facility] [address] [facility] Lab (1st floor, no room number) [place] [address] * (ABNORMAL) Cystatin C with GFR [...] includes age and gender (Brandon et al., NEJ, DOI: 10.1056/[id number]) Jose Eduardo Jaeger LAB - BLOOD ORDERABL ES UU LABORATORY [facility] [place] [facility] [address] [facility], [address] [place] [address] * Albumin level (03/10/2024 6:48 AM CDT) Albumin 4.4 3.5 - 5.2 g/dL 03/10/2024 12:56 PM CDT [facility] Blood STRUCTURE OF RIGHT HAND / Unknown Venipuncture / Unknown 03/10/2024 6:48 AM CDT 03/10/2024 6:53 AM CDT Jose Eduardo Jaeger DO LAB - BLOOD ORDERABL ES LABORATORY [facility] [address] [facility] Lab (1st floor, no room number) [place] [address], [facility] * (ABNORMAL) Basic metabolic panel (03/10/2024 6:48 AM CDT) Sodium 140 135 - 145 mmol/L 03/10/2024 7:23 AM CDT LABORATORY Potassium 5.4(H) 3.4 - 5.3 mmol/L 03/10/2024 7:23 AM CDT LABORATORY Chloride 106 98 - 107 mmol/L 03/10/2024 7:23 AM CDT LABORATORY Carbon Dioxide (CO2) 26 22 - 29 mmol/L 03/10/2024 7:23 AM CDT LABORATORY Anion Gap 8 7 - 15 mmol/L 03/10/2024 7:23 AM CDT LABORATORY Urea Nitrogen 26.5(H) 6.0 - 20.0 mg/dL 03/10/2024 7:23 AM CDT LABORATORY Creatinine 1.65(H) 0.51 - 0.95 mg/dL 03/10/2024 7:23 AM CDT LABORATORY GFR Estimate 42(L) >60 mL/min/1.7 3m2 03/10/2024 7:23 AM CDT LABORATORY Comment:eGFR calculated usin g 2020 CKD-EPI equation. Calcium 10.6(H) 8.8 - 10.4 mg/dL 03/10/2024 7:23 AM CDT LABORATORY Comment:Reference intervals for this test were updated on 01/08/2024 to reflect our healthy population more accurately. There may be differences in the flagging of prior results with similar values performed with this method. Those prior results can be interpreted in the context of the updated reference intervals. Glucose 98 70 - 99 mg/dL 03/10/2024 7:23 AM CDT LABORATORY Blood STRUCTURE OF RIGHT HAND / Unknown Venipuncture / Unknown 03/10/2024 6:48 AM CDT 03/10/2024 6:53 AM CDT Sheila Ferrer DO LAB - BLOOD ORDERABL ES LABORATORY [facility] [address] [facility] Lab (1st floor, no room number) [place] [address], [facility] * (ABNORMAL) Basic metabolic panel (03/09/2024 5:52 PM CDT) Sodium 142 135 - 145 mmol/L 03/09/2024 6:27 PM CDT LABORATORY Potassium 4.8 3.4 - 5.3 mmol/L 03/09/2024 6:27 PM CDT LABORATORY Chloride 106 98 - 107 mmol/L 03/09/2024 6:27 PM CDT LABORATORY Carbon Dioxide (CO2) 25 22 - 29 mmol/L 03/09/2024 6:27 PM CDT LABORATORY Anion Gap 11 7 - 15 mmol/L 03/09/2024 6:27 PM CDT LABORATORY Urea Nitrogen 25.8(H) 6.0 - 20.0 mg/dL 03/09/2024 6:27 PM CDT LABORATORY Creatinine 1.55(H) 0.51 - 0.95 mg/dL 03/09/2024 6:27 PM CDT LABORATORY GFR Estimate 45(L) >60 mL/min/1.7 3m2 03/09/2024 6:27 PM CDT LABORATORY Comment:eGFR calculated usin 2020 CKD-EPI equation. Calcium 9.7 8.8 - 10.4 mg/dL 03/09/2024 6:27 PM CDT LABORATORY Comment:Reference intervals for this test were updated on 01/08/2024 to reflect our healthy population more accurately. There may be differences in the flagging of prior results with similar values performed with this method. Those prior results can be interpreted in the context of the updated reference intervals. Glucose 119(H) 70 - 99 mg/dL 03/09/2024 6:27 PM CDT LABORATORY Blood STRUCTURE OF RIGHT HAND / Unknown Venipuncture / Unknown 03/09/2024 5:52 PM CDT 03/09/2024 6:07 PM CDT Charles Bender MD LAB - BLOOD ORDERABL ES Performing Organization Address City/[facility]/ZIP Co de Phone Number LABORATORY [facility] [address] [employer] Lab (1st floor, no room number) [address] * Magnesium (03/09/2024 7:18 AM CDT) Magnesium 1.7 1.7 - 2.3 mg/dL 03/09/2024 12:37 PM CDT RH LAB[facility] Blood STRUCTURE OF LEFT HAND / Unknown Venipuncture / Unknown 03/09/2024 7:18 AM CDT 03/09/2024 7:28 AM CDT Charles Bender MD LAB - BLOOD ORDERABL ES Performing Organization Address [facility] Co de Phone Number LABORATORY [facility] [address] Lab (1st floor, no room number) [address] * (ABNORMAL) Basic metabolic panel (03/09/2024 7:18 AM CDT) Sodium 142 135 - 145 mmol/L 03/09/2024 8:37 AM CDT LABORATORY Potassium 5.5(H) 3.4 - 5.3 mmol/L 03/09/2024 8:37 AM CDT LABORATORY Chloride 105 98 - 107 mmol/L 03/09/2024 8:37 AM CDT LABORATORY Carbon Dioxide (CO2) 28 22 - 29 mmol/L 03/09/2024 8:37 AM CDT LABORATORY Anion Gap 9 7 - 15 mmol/L 03/09/2024 8:37 AM CDT LABORATORY Urea Nitrogen 24.2(H) 6.0 - 20.0 mg/dL 03/09/2024 8:37 AM CDT LABORATORY Creatinine 1.57(H) 0.51 - 0.95 mg/dL 03/09/2024 8:37 AM CDT LABORATORY GFR Estimate 44(L) >60 mL/min/1.7 3m2 03/09/2024 8:37 AM CDT LABORATORY Comment:eGFR calculated usin g 2020 CKD-EPI equation. Calcium 10.0 8.8 - 10.4 mg/dL 03/09/2024 8:37 AM CDT [facility] Comment:Reference intervals for this test were updated on 01/08/2024 to reflect our healthy population more accurately. There may be differences in the flagging of prior results with similar values performed with this method. Those prior results can be interpreted in the context of the updated reference intervals. Glucose 127(H) 70 - 99 mg/dL 03/09/2024 8:37 AM CDT [facility] Blood STRUCTURE OF LEFT HAND / Unknown Venipuncture / Unknown 03/09/2024 7:18 AM CDT 03/09/2024 7:28 AM CDT Anibal Singh MD LAB - BLOOD ORDER ISHMAEL Performing Organization Address City/[facility]/ZIP Co de Phone Number [facility] [address] Lab (1st floor, no room number) [address] * Magnesium (03/08/2024 8:57 AM CDT) Magnesium 1.7 1.7 - 2.3 mg/dL 03/08/2024 9:23 AM CDT [facility] Blood STRUCTURE OF LEFT HAND / Unknown Venipuncture / Unknown 03/08/2024 8:57 AM CDT 03/08/2024 9:01 AM CDT Charles Bender MD LAB - BLOOD ORDERABL ES Performing Organization Address City/[facility]/ZIP Co de Phone Number [facility] [address] Lab (1st floor, no room number) [address] [place] [address] * (ABNORMAL) Basic metabolic panel (03/08/2024 8:57 AM CDT) Sodium 149(H) 135 - 145 mmol/L 03/08/2024 9:29 AM CDT RH LAB[facility]ORY Potassium 3.6 3.4 - 5.3 mmol/L 03/08/2024 9:29 AM CDT RH LAB[facility]ATORY Chloride 108(H) 98 - 107 mmol/L 03/08/2024 9:29 AM CDT LABORATORY Carbon Dioxide (CO2) 30(H) 22 - 29 mmol/L 03/08/2024 9:29 AM CDT RH LABORATORY Anion Gap 11 7 - 15 mmol/L 03/08/2024 9:29 AM CDT RH LAB[facility]ATORY Urea Nitrogen 27.8(H) 6.0 - 20.0 mg/dL 03/08/2024 9:29 AM CDT LABORATORY Creatinine 1.83(H) 0.51 - 0.95 mg/dL 03/08/2024 9:29 AM CDT RH LABORATORY GFR Estimate 37(L) >60 mL/min/1.7 3m2 03/08/2024 9:29 AM CDT RH LAB[facility]ORY Comment:eGFR calculated usin 2020 CKD-EPI equation. Calcium 9.2 8.8 - 10.4 mg/dL 03/08/2024 9:29 AM CDT RH LAB[facility]ORY Comment:Reference intervals for this test were updated on 01/08/2024 to reflect our healthy population more accurately. There may be differences in the flagging of prior results with similar values performed with this method. Those prior results can be interpreted in the context of the updated reference intervals. Glucose 82 70 - 99 mg/dL 03/08/2024 9:29 AM CDT LABORATORY Blood STRUCTURE OF LEFT HAND / Unknown Venipuncture / Unknown 03/08/2024 8:57 AM CDT 03/08/2024 9:01 AM CDT Charles Bender MD LAB - BLOOD ORDERABL ES LABORATORY [facility] [address] [facility] (1st floor, no room number) [place] [address], [facility] * Iron & Iron Binding Capacity (03/07/2024 8:46 AM CDT) Iron 60 37 - 145 ug/dL 03/07/2024 9:22 AM CDT LABORATORY Iron Binding Capacity 336 240 - 430 ug/dL 03/07/2024 9:22 AM CDT LABORATORY Iron Sat Index 18 15 - 46 % 03/07/2024 9:22 AM CDT RH LABORATORY Blood STRUCTURE OF LEFT HAND / Unknown Venipuncture / Unknown 03/07/2024 8:46 AM CDT 03/07/2024 8:58 AM CDT Sean Freeman MD LAB - BLOOD ORD ERABLES RH LABORATORY [facility] [address] Lab (1st floor, no room number) [place] [address] * Folate (03/07/2024 8:46 AM CDT) Folic Acid 15.4 4.6 - 34.8 ng/mL 03/07/2024 2:48 PM CDT U LABORATORY Blood STRUCTURE OF LEFT HAND / Unknown Venipuncture / Unknown 03/07/2024 8:46 AM CDT 03/07/2024 8:57 AM CDT Sean Freeman MD LAB - BLOOD ORD ERABLES U LABORATORY [facility] [place] [facility] [address] [facility], [address] * Vitamin B12 (03/07/2024 8:46 AM CDT) Vitamin B12 527 232 - 1,245 pg/mL 03/07/2024 4:58 PM CDT U LABORATORY Blood STRUCTURE OF LEFT HAND / Unknown Venipuncture / Unknown 03/07/2024 8:46 AM CDT 03/07/2024 8:58 AM CDT Sean Freeman MD LAB - BLOOD ORD ERABLES U LABORATORY [facility] [place] [facility] [address] [facility], [address] * Phosphorus (03/07/2024 8:46 AM CDT) Phosphorus 2.6 2.5 - 4.5 mg/dL 03/07/2024 9:22 AM CDT RH LABORATORY Blood STRUCTURE OF LEFT HAND / Unknown Venipuncture / Unknown 03/07/2024 8:46 AM CDT 03/07/2024 8:58 AM CDT Sean Freeman MD LAB - BLOOD ORD ERABLES [facility] [address] Lab (1st floor, no room number) [place] [address] * Magnesium (03/07/2024 8:46 AM CDT) Pathologist [facility] Magnesium 2.2 1.7 - 2.3 mg/dL 03/07/2024 9:22 AM CDT LABORATORY Blood STRUCTURE OF LEFT HAND / Unknown Venipuncture / Unknown 03/07/2024 8:46 AM CDT 03/07/2024 8:58 AM CDT Sean Freeman MD LAB - BLOOD ORD ERABLES [facility] Lab [address] [employer] Lab (1st floor, no room number) [place] [id number] * (ABNORMAL) Basic metabolic panel (03/07/2024 8:46 AM CDT) Pathologist [facility] Sodium 143 135 - 145 mmol/L 03/07/2024 9:25 AM CDT LABORATORY Potassium 2.7(L) 3.4 - 5.3 mmol/L 03/07/2024 9:25 AM CDT LABORATORY Chloride 96(L) 98 - 107 mmol/L 03/07/2024 9:25 AM CDT LABORATORY Carbon Dioxide (CO2) 36(H) 22 - 29 mmol/L 03/07/2024 9:25 AM CDT LABORATORY Anion Gap 11 7 - 15 mmol/L 03/07/2024 9:25 AM CDT LABORATORY Urea Nitrogen 43.3(H) 6.0 - 20.0 mg/dL 03/07/2024 9:25 AM CDT RH LABORATORY Creatinine 2.85(H) 0.51 - 0.95 mg/dL 03/07/2024 9:25 AM CDT RH LABORATORY GFR Estimate 22(L) >60 mL/min/1.7 3m2 03/07/2024 9:25 AM CDT RH LABORATORY Comment:eGFR calculated usin 2020 CKD-EPI equation. Calcium 10.3 8.8 - 10.4 mg/dL 03/07/2024 9:25 AM CDT RH LABORATORY Comment:Reference intervals for this test were updated on 01/08/2024 to reflect our healthy population more accurately. There may be differences in the flagging of prior results with similar values performed with this method. Those prior results can be interpreted in the context of the updated reference intervals. Glucose 53(L) 70 - 99 mg/dL 03/07/2024 9:25 AM CDT LABORATORY Blood STRUCTURE OF LEFT HAND / Unknown Venipuncture / Unknown 03/07/2024 8:46 AM CDT 03/07/2024 8:58 AM CDT Brendan Dominguez MD LAB - BLOOD ORDERABL ES LABORATORY [facility] [address] [facility] Lab (1st floor, no room number) [place] [address] * EKG 12-lead, tracing only (03/06/2024 8:33 PM CDT) Systolic Blood Pressure mmHg RADIOLOGY RESULTS Diastolic Blood Pressure mmHg RADIOLOGY RESULTS Ventricular Rate 76 BPM RAD IOLOGY RESULTS Atrial Rate 76 BPM RADIOLOG Y RESULTS VA Interval 116 ms RADIOLOG Y RESULTS QRS Duration 90 ms RADIOLO GY RESULTS QT 432 ms RADIOLOGY RESULTS QTc 486 ms RADIOLOGY RESULTS P [place] 32 degrees RADIOLOGY RESULTS R AXIS 84 degrees RADIOLOGY RESULTS T [place] 64 degrees RADIOLOGY RESULTS Interpretation ECG Sinus rhythm Nonspecific ST and T wave abnormality Prolonged QT consider LVH with strain No siginficant change since last ECG Confirmed by MD SALAS MICHAEL ([id number]) on 03/09/2024 11:31:23 AM RADIOLOGY RESULTS 03/06/2024 8:33 PM CDT 03/09/2024 11:31 AM CDT Brendan Dominguez MD ECG ORDERABLES RADIOLOGY RESULTS * Bicarbonate urine (03/06/2024 8:31 PM CDT) Bicarbonate Urine 42 mmol/L 03/08/2024 2:41 PM CDT [facility] Comment: Diluted and confirmed INTERPRETIVE INFORMATION: Bicarbonate (HCO3), Urine ?? Reference Interval has not been defined for Bicarbonate, Urine. See Compliance Statement B: [email or web address].[employer].[email or web address]/compliance/statements Performed At: [facility] ([facility]) [facility]OR[facility] [place], [place] ??[address] Warranty Clerk: DO ESTEFANY IVEY Number: [id number] Urine URINE SPECIMEN OBTAINED BY CLEAN CATCH PROCEDURE / Unknown Non-blood Collection / Unknown 03/06/2024 8:31 PM CDT 03/06/2024 8:48 PM CDT Sean Freeman MD LAB - URINE ORD ERABLES Performing Organization Address City/[facility]/ZIP Co de Phone Number [facility] [address] [place] [address], [facility] [phone] * Chloride random urine (03/06/2024 7:08 PM [...] Freeman MD LAB - URINE ORD ERABLES UU LABORATORY [facility] [place] [facility] [address] [facility], [address] [place] [address] * Potassium random urine (03/06/2024 7:08 [...] Freeman MD LAB - URINE ORD ERABLES U LABORATORY [facility] [place] [facility] [address] [facility], [address] [place] [address] * Sodium random urine (03/06/2024 7:08 PM [...] MD LAB - URINE ORD ERABLES LABORATORY [facility] [address] Lab (1st floor, no room number) [place] [address] * (ABNORMAL) Blood gas venous (03/06/2024 4:44 PM CDT) pH Venous 7.48(H) 7.32 - 7.43 03/06/2024 4:59 PM CDT LABORATORY pCO2 Venous 63(H) 40 - 50 mm Hg 03/06/2024 4:59 PM CDT LABORATORY pO2 Venous 27 25 - 47 [...] saturation. Ezequiel Valladares MD LAB - BLOOD [facility] Organization Address City/State/ZIP Co de Phone Number LABORATORY [facility] [address] [facility] Lab (1st floor, no room number) [place] [address], [facility] * US Renal Complete Non-Vascular (03/06/2024 4:29 PM CDT) Anatomical Region Laterality Modality Abdomen/Pelvis Ultrasound Impressions 03/06/2024 4:48 PM CDT IMPRESSION: Unremarkable renal ultrasound examination. No hydronephrosis. THANH BARGER MD SYSTEM ID: ??[id number] Narrative 03/06/2024 4:48 PM CDT US RENAL [...] No hydronephrosis. THANH BARGER MD SYSTEM ID: [id number] Ezequiel Valladares MD IMG US ORDERABLE S * EKG 12 lead (03/06/2024 2:21 PM CDT) Systolic Blood Pressure mmHg RADIOLOGY RESULTS Diastolic Blood Pressure mmHg RADIOLOGY RESULTS Ventricular Rate 80 BPM RAD IOLOGY RESULTS Atrial Rate 80 BPM RADIOLOG Y RESULTS VA Interval 126 ms RADIOLOG Y RESULTS QRS Duration 72 ms RADIOLO GY RESULTS QT 408 ms RADIOLOGY RESULTS QTc 470 ms RADIOLOGY RESULTS P [place] 55 degrees RADIOLOGY RESULTS R AXIS 80 degrees RADIOLOGY RESULTS T [place] 49 degrees RADIOLOGY RESULTS Interpretation ECG Sinus rhythm Normal ECG When compared with ECG of 31-Jan-2023 20:05, T wave inversion no longer evident in Inferior leads T wave inversion no longer evident in Anterolateral leads QT has lengthened Confirmed by - EMERGENCY ROOM, PHYSICIAN ([id number]), website/blog editor LUPE VILLAGOMEZ ([id number]) on 03/07/2024 7:19:45 AM RADIOLOGY RESULTS 03/06/2024 2:21 PM CDT 03/07/2024 7:19 AM CDT Ezequiel Valladares MD ECG ORDERABLES RADIOLOGY RESULTS * Vitamin D Deficiency (03/06/2024 2:19 PM CDT) Vitamin D, Total (25-Hydroxy) 33 20 - 50 ng/mL 03/07/2024 4:53 PM CDT [facility] LAB[facility]ATORY Comment:optimum levels Blood BLOOD SPECIMEN / Unknown Venipuncture / Unknown 03/06/2024 2:19 PM CDT 03/06/2024 2:23 PM CDT Narrative [facility] LAB[facility]ATORY - 03/07/2024 4:53 PM CDT Season, race, dietary intake, and treatment affect the concentration of 24-okjsfzo-Qitlcaf D. Values may decrease during winter months and increase during summer months. Vitamin D determination is routinely performed by an immunoassay specific for 25 hydroxyvitamin D3. ??If an individual is on vitamin D2(ergocalciferol) supplementation, please specify 25 OH vitamin D2 and D3 level determination by LCMSMS test VITD23. Sean Freeman MD LAB - BLOOD [place] U LABORATORY [facility] [place] [facility] [address] [place] [address], [address] [place] [address] * Extra Heparinized Syringe (03/06/2024 2:19 PM CDT) Hold Specimen [facility] 03/06/2024 3:31 PM CDT RH LABORATORY Blood, venous VENOUS LINE / Unknown Venipuncture / Unknown 03/06/2024 2:19 PM CDT 03/06/2024 2:23 PM CDT Ezequiel Valladares MD LAB - BLOOD [place] RH LABORATORY [facility] [address] Lab (1st floor, no room number) [place] [address] * Extra Red Top Tube (03/06/2024 2:19 PM CDT) Hold Specimen [facility] 03/06/2024 3:31 PM CDT RH LABORATORY Blood VENOUS LINE / Unknown Venipuncture / Unknown 03/06/2024 2:19 PM CDT 03/06/2024 2:23 PM CDT Ezequiel Valladares MD LAB - BLOOD ORDJl [place] LABORATORY [facility] [address] Lab (1st floor, no room number) [place] [address] * Extra Blue Top Tube (03/06/2024 2:19 PM CDT) Hold Specimen JIC 03/06/2024 3:31 PM CDT [facility] Blood VENOUS LINE / Unknown Venipuncture / Unknown 03/06/2024 2:19 PM CDT 03/06/2024 2:23 PM CDT Ezequiel Valladares MD LAB - BLOOD [facility] Performing Organization Address City/[facility]/ZIP Co de Phone Number [facility] [address] Lab (1st floor, no room number) [place] [phone] [place] [address] * (ABNORMAL) CBC with platelets and differential (03/06/2024 2:19 PM CDT) WBC Count 7.2 4.0 - 11.0 10e3/uL 03/06/2024 2:28 PM CDT [facility] RBC Count 3.80 3.80 - 5.20 10e6/uL 03/06/2024 2:28 PM CDT [facility] Hemoglobin 10.3(L) 11.7 - 15.7 g/dL 03/06/2024 2:28 PM CDT [facility] Hematocrit 31.1(L) 35.0 - 47.0 % 03/06/2024 2:28 PM CDT [facility] MCV 82 78 - 100 fL 03/06/2024 2:28 PM CDT [facility] MCH 27.1 26.5 - 33.0 pg 03/06/2024 2:28 PM CDT [facility] MCHC 33.1 31.5 - 36.5 g/dL 03/06/2024 2:28 PM CDT [facility] RDW 17.9(H) 10.0 - 15.0 % 03/06/2024 2:28 PM CDT [facility] Platelet Count 520(H) 150 - 450 10e3/uL 03/06/2024 2:28 PM CDT [facility] % Neutrophils 55 % 03/06/2024 2:28 PM CDT [facility] % Lymphocytes 32 % 03/06/2024 2:28 PM CDT [facility] % Monocytes 9 % 03/06/2024 2:28 PM CDT [facility] % Eosinophils 3 % 03/06/2024 2:28 PM CDT [facility] % Basophils 1 % 03/06/2024 2:28 PM CDT [facility] % Immature Granulocytes 0 % 03/06/2024 2:28 PM CDT [facility] NRBCs per 100 WBC 0 <1 /100 024 2:28 PM CDT [facility] Absolute Neutrophils 4.0 1.6 - 8.3 10e3/uL 03/06/2024 2:28 PM CDT [facility] Absolute Lymphocytes 2.3 0.8 - 5.3 10e3/uL 03/06/2024 2:28 PM CDT [facility] Absolute Monocytes 0.6 0.0 - 1.3 10e3/uL 03/06/2024 2:28 PM CDT [facility] Absolute Eosinophils 0.2 0.0 - 0.7 10e3/uL 03/06/2024 2:28 PM CDT [facility] Absolute Basophils 0.1 0.0 - 0.2 10e3/uL 03/06/2024 2:28 PM CDT [facility] Absolute Immature Granulocytes 0.0 <=0.4 10e3/uL 03/06/2024 2:28 PM CDT [facility] Absolute NRBCs 0.0 10e3/uL 03/06/2024 2:28 PM CDT [facility] Blood BLOOD SPECIMEN / Unknown Venipuncture / Unknown 03/06/2024 2:19 PM CDT 03/06/2024 2:23 PM CDT Ezequiel Valladares MD LAB - BLOOD [place] [facility] Organization Address City/State/ZIP Co de Phone Number [facility] [address] Lab (1st floor, no room number) [place] [address], [facility] * (ABNORMAL) Comprehensive metabolic panel (03/06/2024 [...] 0.3 <=1.2 mg/dL 03/06/2024 3:42 PM CDT [facility] Blood BLOOD SPECIMEN / Unknown Venipuncture / Unknown 03/06/2024 2:19 PM CDT 03/06/2024 2:23 PM CDT Ezequiel Valladares MD LAB - BLOOD [place] [facility] [address] Lab (1st floor, no room number) [place] [address] * Phosphorus (03/06/2024 2:19 PM CDT) Phosphorus 3.4 2.5 - 4.5 mg/dL 03/06/2024 2:45 PM CDT [facility] Blood BLOOD SPECIMEN / Unknown Venipuncture / Unknown 03/06/2024 2:19 PM CDT 03/06/2024 2:23 PM CDT Ezequiel Valladares MD LAB - BLOOD [place] Performing Organization Address City/[facility]/ZIP Co de Phone Number [facility] [address] Lab (1st floor, no room number) [place] [address], [facility] * (ABNORMAL) Ionized Calcium (03/06/2024 2:19 PM CDT) Calcium Ionized Whole Blood 5.6(H) 4.4 - 5.2 mg/dL 03/06/2024 2:25 PM CDT [facility] Blood BLOOD SPECIMEN / Unknown Venipuncture / Unknown 03/06/2024 2:19 PM CDT 03/06/2024 2:23 PM CDT Ezequiel Valladares MD LAB - BLOOD [place] [facility] [address] Lab (1st floor, no room number) [place] [address], [facility] * (ABNORMAL) Magnesium (03/06/2024 2:19 PM CDT) Magnesium 2.6(H) 1.7 - 2.3 mg/dL 03/06/2024 2:45 PM CDT LABORATORY Blood BLOOD SPECIMEN / Unknown Venipuncture / Unknown 03/06/2024 2:19 PM CDT 03/06/2024 2:23 PM CDT Ezequiel Valladares MD LAB - BLOOD [place] [facility] [address] [facility] Lab (1st floor, no room number) [place] [address] documented in this encounter Visit Diagnoses Diagnosis Chronic midline low back pain without sciatica- Primary BARBARA (acute kidney injury) (H) Acute kidney failure, 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 Hypercalcemia Closed fracture of single ramus of right pubis, with delayed healing, subsequent encounter Acute bilateral low back pain without sciatica Hypercalcemia Gitelman syndrome Disorders of magnesium metabolism BARBARA (acute kidney injury) (H) Acute kidney failure, unspecified documented in this encounter Administered Medications Inactive Administered Medications - up to 3 most recent administrations Medication Order MAR Action Action Date Dose Rate Site 0.9% sodium chloride + KCl 20 mEq/L infusion at 125 mL/hr, Intravenous, CONTINUOUS, Starting on Sun03/07/24 at 1000, Until Sun03/08/24 at 0944 Rate/Dose Verify 03/08/2024 8:13 AM CDT 125 mL/ hr $New Bag 03/08/2024 2:32 AM CDT 125 mL/hr $New Bag 03/07/2024 6:29 PM CDT 125 mL/hr acetaminophen (TYLENOL) Suppository 650 mg 650 mg, Rectal, 3 TIMES DAILY, First dose on Sun03/12/24 at 1400, Maximum acetaminophen dose from all sources = 75 mg/kg/day not to exceed 4 grams/day. acetaminophen (TYLENOL) tablet 975 mg 975 mg, Oral, 3 TIMES DAILY, First dose on Sun03/12/24 at 1400, Maximum acetaminophen dose from all sources = 75 mg/kg/day not to exceed 4 grams/day. $Given 03/12/2024 1:02 PM CDT 975 mg gabapentin (NEURONTIN) capsule 100 mg 100 mg, Oral, AT BEDTIME, First dose on Emiliana 03/06/24 at 2200 $Given 03/11/2024 10:42 PM CDT 100 mg $Given 03/10/2024 9:56 PM CDT 100 mg $Given 03/09/2024 9:38 PM CDT 100 mg gabapentin (NEURONTIN) capsule 100 mg 100 mg, Oral, 3 TIMES DAILY, First dose (after last modification) on Emiliana 03/06/24 at 2000 $Given 03/12/2024 1:02 PM CDT 100 mg $Given 03/12/2024 8:39 AM CDT 100 mg $Given 03/11/2024 8:21 PM CDT 100 mg HYDROmorphone (DILAUDID) injection 1 mg 1 mg, Intravenous, ONCE, On Emiliana 03/06/24 at 1420, For 1 dose $Given 03/06/2024 2:27 PM CDT 1 mg HYDROmorphone (DILAUDID) injection 1 mg 1 mg, Intravenous, ONCE, On Emiliana 03/06/24 at 1530, For 1 dose $Given 03/06/2024 3:32 PM CDT 1 mg HYDROmorphone (DILAUDID) tablet 2 mg 2 mg, Oral, EVERY 4 HOURS PRN, moderate pain, Starting on Sun03/06/24 at 1747 $Given 03/07/2024 7:01 AM CDT 2 mg $Given 03/06/2024 10:47 PM CDT 2 mg $Given 03/06/2024 5:51 PM CDT 2 mg HYDROmorphone (DILAUDID) tablet 2-4 mg 2-4 mg, Oral, EVERY 4 HOURS PRN, moderate pain, Starting on Sun03/09/24 at 1319 $Given 03/10/2024 1:48 PM CDT 4 mg HYDROmorphone (DILAUDID) tablet 2-4 mg 2-4 mg, Oral, EVERY 3 HOURS PRN, moderate pain, severe pain, Starting on Sun03/12/24 at 1107, 2 mg for moderate pain 4-6 and 4 mg for severe pain 7-10 Okay to give 2 hours after scheduled dilaudid. Hold for RASS<-2 Hold for SBP <90 Hold for sedation Hold for RR<10 Hold for SpO2<90% HYDROmorphone (DILAUDID) tablet 4 mg 4 mg, Oral, EVERY 3 HOURS PRN, severe pain, Starting on Sun03/11/24 at 1620 $Given 03/12/2024 8:40 AM CDT 4 mg HYDROmorphone (DILAUDID) tablet 4 mg 4 mg, Oral, EVERY 6 HOURS, First dose (after last modification) on Sun03/12/24 at 1130 $Given 03/12/2024 11:25 AM CDT 4 mg HYDROmorphone (PF) (DILAUDID) injection 0.3 mg 0.3 mg, Intravenous, EVERY 6 HOURS PRN, severe pain, Starting on Sun03/06/24 at 1747 $Given 03/07/2024 8:16 AM CDT 0.3 mg $Given 03/07/2024 2:16 AM CDT 0.3 mg $Given 03/06/2024 8:01 PM CDT 0.3 mg HYDROmorphone (PF) (DILAUDID) injection 0.3 mg 0.3 mg, Intravenous, EVERY 3 HOURS PRN, severe pain, Starting on Sun03/07/24 at 1100 $Given 03/11/2024 4:08 PM CDT 0.3 mg $Given 03/11/2024 1:16 PM CDT 0.3 mg $Given 03/11/2024 10:05 AM CDT 0.3 mg HYDROmorphone (PF) (DILAUDID) injection 0.3 mg 0.3 mg, Intravenous, EVERY 4 HOURS PRN, severe pain, Starting on Sun03/11/24 at 1618 $Given 03/12/2024 10:16 AM CDT 0.3 mg $Given 03/12/2024 4:41 AM CDT 0.3 mg $Given 03/12/2024 12:40 AM CDT 0.3 mg HYDROmorphone (PF) (DILAUDID) injection 0.3 mg 0.3 mg, Intravenous, 2 TIMES DAILY PRN, severe pain, Starting on Sun03/12/24 at 1108, For severe pain not managed by oral pain medications pain greater than 8 $Given 03/12/2024 1:09 PM CDT 0.3 m g hydrOXYzine HCl (ATARAX) tablet 25-50 mg 25-50 mg, Oral, EVERY 6 HOURS PRN, other, adjuvant pain, Starting on Sun03/06/24 at 1747 $Given 03/12/2024 10:15 AM CDT 50 mg $Given 03/11/2024 10:42 PM CDT 50 mg $Given 03/11/2024 4:30 PM CDT 50 mg Lidocaine (LIDOCARE) 4 % Patch 1 patch 1 patch, Transdermal, Administer over 12 Hours, ONCE, On Emiliana 03/06/24 at 1535, For 1 dose, Apply patch(s) toright groin hip To prevent lidocaine toxicity, patient should be patch free for 12 hrs daily. Patches may be cut to smaller size prior to removing release liner. Reminder: Remove previous patch before applying new patch. NEVER APPLY HEAT OVER PATCH which increases absorption and may lead to local anesthetic toxicity. Do not apply over area where liposomal bupivacaine was injected for 96 hours post injection. $Patch/Med Applied 03/06/2024 5:05 PM CDT 1 patch Other (see comments) methocarbamol (ROBAXIN) tablet 750 mg 750 mg, Oral, EVERY 6 HOURS PRN, muscle spasms, Starting on Sun03/07/24 at 0849 $Given 03/12/2024 8:45 AM CDT 750 mg $Given 03/12/2024 12:40 AM CDT 750 mg $Given 03/11/2024 6:04 PM CDT 750 mg methocarbamol (ROBAXIN) tablet 750 mg 750 mg, Oral, 3 TIMES DAILY, First dose (after last modification) on Sun03/12/24 at 1400 $Given 03/12/2024 1:03 PM CDT 750 mg naloxone (NARCAN) injection 0.2 mg 0.2 mg, Intravenous, EVERY 2 MIN PRN, opioid reversal, Starting on Sun03/06/24 at 2037, Administer intravenous route when available [...] MIN PRN, opioid reversal, Starting on Emiliana 03/06/24 at 2036, Administer intramuscular if an intravenous route is [...] MIN PRN, opioid reversal, Starting on Emiliana 03/06/24 at 2036, Administer intravenous route when available and notify [...] MIN PRN, opioid reversal, Starting on Emiliana 03/06/24 at 2036, Administer intramuscular if an intravenous route is [...] have not improved after 4 naloxone doses. potassium chloride deanne ER (KLOR-CON M20) CR tablet 60 mEq 60 mEq, Oral, 3 TIMES DAILY, First dose on Sun03/07/24 at 1600, DO NOT CRUSH $Given 03/08/2024 8:11 AM CDT 60 mEq $Given 03/07/2024 9:45 PM CDT 60 mEq $Given 03/07/2024 2:26 PM CDT 60 mEq potassium chloride deanne ER (KLOR-CON M20) CR tablet 60 mEq 60 mEq, Oral, 3 TIMES DAILY, First dose (after last modification) on Sun03/09/24 at 1600, DO NOT CRUSH, On hold since Sun03/10/2024 at 1055 until manually unheld $Given 03/09/2024 9:38 PM CDT 60 m Eq $Given 03/09/2024 4:46 PM CDT 60 mEq potassium chloride deanne ER (KLOR-CON M20) CR tablet 80 mEq 80 mEq, Oral, 4 TIMES DAILY, First dose (after last modification) on Sun03/08/24 at 1300, DO NOT CRUSH $Given 03/09/2024 8:19 AM CDT 80 mEq $Given 03/08/2024 9:13 PM CDT 80 mEq $Given 03/08/2024 6:23 PM CDT 80 mEq potassium chloride deanne ER (KLOR-CON M20) CR tablet 80 mEq 80 mEq, Oral, 2 TIMES DAILY, First dose (after last modification) on Sun03/12/24 at 1100, DO NOT CRUSH $Given 03/12/2024 10:55 AM CDT 80 mEq senna-docusate (SENOKOT-S/PERICOLACE) 8.6-50 MG per tablet 1 tablet 1 tablet, Oral, 2 TIMES DAILY PRN, constipation, Starting on Emiliana 03/06/24 at 1747, If no bowel movement in 24 hours, [...] 2 TIMES DAILY PRN, constipation, Starting on Sun03/06/24 at 1747, IF more than 1 constipation PRN medication [...] Intracatheter, EVERY 8 HOURS, First dose on Sun03/06/24 at 1750, to lock peripheral IV dormant line $Given 03/12/2024 8:40 AM CDT 3 mLs $Given 03/12/2024 12:45 AM CDT 3 mLs $Given 03/11/2024 4:08 PM CDT 3 mLs sodium chloride (PF) 0.9% PF flush 3 mL 3 mL, Intracatheter, EVERY 1 MIN PRN, line flush, other, to ensure patency or to lock dormant line, Starting on Sun03/06/24 at 1747 $Given 03/09/2024 5:46 PM CDT 3 mLs sodium chloride 0.45 % 1,000 mL with potassium chloride 10 mEq/L infusion 1,000 mL, at 100 mL/hr, Intravenous, CONTINUOUS, Starting on Sun03/08/24 at 1000, Until Sun03/09/24 at 1037 $New Bag 03/09/2024 9:14 AM CDT 100 mL/hr $New Bag 03/08/2024 9:11 PM CDT 100 mL/hr Rate/Dose Verify 03/08/2024 5:16 PM CDT 100 mL/ hr sodium chloride 0.9 % infusion at 150 mL/hr, Intravenous, CONTINUOUS, Starting on Sun03/06/24 at 1750, Until Sun03/07/24 at 0941 Rate/Dose Verify 03/07/2024 8:17 AM CDT 150 mL/hr $New Bag 03/07/2024 7:06 AM CDT 150 mL/hr $New Bag 03/07/2024 12:13 AM CDT 150 mL/hr sodium chloride 0.9% BOLUS 1,000 mL Intravenous, 1,000 mL, ONCE, at 1,000 mL/hr, Administer over 1 Hours, On Sun03/06/24 at 1420, For 1 dose $New Bag 03/06/2024 2:26 PM CDT 1,000 mLs 1000 mL/hr sodium chloride 0.9% BOLUS 1,000 mL Intravenous, 1,000 mL, ONCE, at 500 mL/hr, Administer over 2 Hours, On Sun03/06/24 at 1750, For 1 dose $New Bag 03/06/2024 8:50 PM CDT 1,000 mLs 500 mL/hr documented in this encounter Active and Recently Administered Medications Times are shown in CDT. Scheduled Medication Order 03/10/2024 03/11/2024 03/12/2024 acetaminophen (TYLENOL) Suppository 650 mg(Linked Group 1) 650 mg, Rectal, 3 TIMES DAILY, First dose on Sun03/12/24 at 1400, Maximum acetaminophen dose from all sources = 75 mg/kg/day not to exceed 4 grams/day. 1302 (See Alternativ e - Provider: Kika Phelps RN) acetaminophen (TYLENOL) tablet 975 mg(Linked Group 1) 975 mg, Oral, 3 TIMES DAILY, First dose on Sun03/12/24 at 1400, Maximum acetaminophen dose from all sources = 75 mg/kg/day not to exceed 4 grams/day. 1302 ($Given - Provider: Kika Phelps RN) gabapentin (NEURONTIN) capsule 100 mg 100 mg, Oral, AT BEDTIME, First dose on Sun03/06/24 at 2200 2156 ($Given - Provider: Nelly Houston RN) 2242 ($Given - Provider: Barry Tillman RN) gabapentin (NEURONTIN) capsule 100 mg 100 mg, Oral, 3 TIMES DAILY, First dose (after last modification) on Sun03/06/24 at 2000 0758 ($Given - Provider: Kika Phelps RN)1348 ($Given - Provider: Kika Phelps RN)2059 ($Given - Provider: Nelly Houston RN) 1005 ($Given - Provider: Kika Phelps RN)1316 ($Given - Provider: Kika Phelps RN)2020 ($Given - Provider: Barry Tillman RN) 0839 ($Given - Provider: Kika Phelps RN)1302 ($Given - Provider: Kika Phelps RN) HYDROmorphone (DILAUDID) tablet 4 mg(Linked Group 2) 4 mg, Oral, EVERY 6 HOURS, First dose (after last modification) on Sun03/12/24 at 1130 1125 ($Given - Provider: Kika Phelps RN) methocarbamol (ROBAXIN) tablet 750 mg 750 mg, Oral, 3 TIMES DAILY, First dose (after last modification) on Sun03/12/24 at 1400 1303 ($Given - Provider: Kika Phelps, RN) potassium chloride deanne ER (KLOR-CON M20) CR tablet 80 mEq 80 mEq, Oral, 2 TIMES DAILY, First dose (after last modification) on Sun03/12/24 at 1100, DO NOT CRUSH 1055 (Held by provider - Provider: Jose Eduardo Jaeger DO - Reason: Abnormal Electrolytes) 1035 (Unheld by provider - Provider: Jose Eduardo Jaeger DO)1055 ($Given - Provider: Kika hPelps, DEVIN) sodium chloride (PF) 0.9% PF flush 3 mL 3 mL, Intracatheter, EVERY 8 HOURS, First dose on Emiliana 03/06/24 at 1750, to lock peripheral IV dormant line 0356 ($Given - Provider: Milana Leyva, DEVIN)0722 ($Given - Provider: Kika Phelps, DEVIN)0915 (Canceled Entry - Provider: Kika Phelps RN)2148 ($Given - Provider: Nelly Houston, DEVIN) 0007 ($Given - Provider: Lo Mars, DEVIN)1006 ($Given - Provider: Kika Phelps, DEVIN)1608 ($Given - Provider: Barry Tillman, DEVIN) 0045 ($Given - Provider: Martin Baum, DEVIN)0840 ($Given - Provider: Kika Phelps, DEVIN)1600 (Canceled Entry - Provider: Orders Generic Provider - Comment: Automatically canceled at discontinue of medication order) PRN Medication Order 03/10/2024 03/11/2024 03/12/2024 HYDROmorphone (DILAUDID) tablet 2-4 mg (CANCELED) 2-4 mg, Oral, EVERY 4 HOURS PRN, moderate pain, Starting on Sun03/09/24 at 1319 1348 ($Given - Provider: Kika Phelps, DEVIN) HYDROmorphone (DILAUDID) tablet 2-4 mg 2-4 mg, Oral, EVERY 3 HOURS PRN, moderate pain, severe pain, Starting on Sun03/12/24 at 1107, 2 mg for moderate pain 4-6 and 4 mg for severe pain 7-10 Okay to give 2 hours after scheduled dilaudid. Hold for RASS<-2 Hold for SBP <90 Hold for sedation Hold for RR<10 Hold for SpO2<90% HYDROmorphone (DILAUDID) tablet 4 mg (CANCELED) 4 mg, Oral, EVERY 3 HOURS PRN, severe pain, Starting on Sun03/11/24 at 1620 1816 (See Alternative - Provider: Barry Tillman RN) 0840 ($Given - Provider: Kika Phelps, DEVIN) HYDROmorphone (PF) (DILAUDID) injection 0.3 mg (CANCELED) 0.3 mg, Intravenous, EVERY 3 HOURS PRN, severe pain, Starting on Sun03/07/24 at 1100 0000 ($Given - Provider: Milana Leyva RN)0357 ($Given - Provider: Milana Leyva RN)0722 ($Given - Provider: Kika Phelps, DEVIN)1047 ($Given - Provider: Kika Phelps, DEVIN)1523 ($Given - Provider: Kika Phelps, RN)1837 ($Given - Provider: Nelly Houston RN)2148 ($Given - Provider: Nelly Houston RN) 0058 ($Given - Provider: Lo Mars RN)0358 ($Given - Provider: Lo Mars, DEVIN)0651 ($Given - Provider: Lo Mars, RN)1005 ($Given - Provider: Kika Phelps, DEVIN)1316 ($Given - Provider: Kika Phelps, DEVIN)1608 ($Given - Provider: Barry Tillman RN) HYDROmorphone (PF) (DILAUDID) injection 0.3 mg (CANCELED) 0.3 mg, Intravenous, EVERY 4 HOURS PRN, severe pain, Starting on Sun03/11/24 at 1618 2021 ($Given - Provider: Barry Tillman RN) 0040 ($Given - Provider: Martin Baum, DEVIN)0441 ($Given - Provider: Martin Baum, DEVIN)1016 ($Given - Provider: Kika Phelps, DEVIN) HYDROmorphone (PF) (DILAUDID) injection 0.3 mg 0.3 mg, Intravenous, 2 TIMES DAILY PRN, severe pain, Starting on Sun03/12/24 at 1108, For severe pain not managed by oral pain medications pain greater than 8 1309 ($Given - Provider: Kika Phelps, DEVIN) hydrOXYzine HCl (ATARAX) tablet 25-50 mg 25-50 mg, Oral, EVERY 6 HOURS PRN, other, adjuvant pain, Starting on Sun03/06/24 at 1747 0041 ($Given - Provider: Milana Leyva, DEVIN)0956 ($Given - Provider: Kika Phelps RN)1810 ($Given - Provider: Nelly Houston RN) 0006 ($Given - Provider: Lo Mars, RN)1012 ($Given - Provider: Kika Phelps, RN)1630 ($Given - Provider: Barry Tillman, RN)2242 ($Given - Provider: Barry Tillman RN) 1015 ($Given - Provider: Kika Phelps, DEVIN) lidocaine (LMX4) cream Topical, EVERY 1 HOUR PRN, pain, with VAD insertion, Starting on Sun03/06/24 at 1747, Apply at least 30 minutes prior to [...] mild pain with VAD insertion, Starting on Sun03/06/24 at 1747, MAX dose 1 mL subcutaneous OR intradermal along the side of the vein in divided doses as needed for VAD insertion. Do NOT give if patient has a history of allergy to any local anesthetic or any mark product. Do NOT use both lidocaine intradermal/subcutaneous injection and the lidocaine cream on the same site. methocarbamol (ROBAXIN) tablet 750 mg (CANCELED) 750 mg, Oral, EVERY 6 HOURS PRN, muscle spasms, Starting on Sun03/07/24 at 0849 0041 ($Given - Provider: Milana Leyva, DEVIN)0758 ($Given - Provider: Kika Phelps RN)1351 ($Given - Provider: Kika Phelps, DEVIN)2058 ($Given - Provider: Nelly Houston, DEVIN) 180 ($Given - Provider: Barry Tillman, DEVIN) 0040 ($Given - Provider: Martin Baum RN)0845 ($Given - Provider: Kika Phelps RN) naloxone (NARCAN) injection 0.2 mg(Linked Group 3) 0.2 mg, Intravenous, EVERY 2 MIN PRN, opioid reversal, Starting on Emiliana 03/06/24 at 2036, Administer intravenous route when available and notify [...] doses. naloxone (NARCAN) injection 0.2 mg(Linked Group 3) 0.2 mg, Intramuscular, EVERY 2 MIN PRN, opioid reversal, Starting on Emiliana 03/06/24 at 2036, Administer intramuscular if an intravenous route is [...] doses. naloxone (NARCAN) injection 0.4 mg(Linked Group 3) 0.4 mg, Intravenous, EVERY 2 MIN PRN, opioid reversal, Starting on [facility] 03/06/24 at 2036, Administer intravenous route when available and notify [...] doses. naloxone (NARCAN) injection 0.4 mg(Linked Group 3) 0.4 mg, Intramuscular, EVERY 2 MIN PRN, opioid reversal, Starting on [facility] 03/06/24 at 2036, Administer intramuscular if an intravenous route is [...] have not improved after 4 naloxone doses. senna-docusate (SENOKOT-S/PERICOLACE) 8.6-50 MG per tablet 1 tablet(Linked Group 4) 1 tablet, Oral, 2 TIMES DAILY PRN, constipation, Starting on Sun03/06/24 at 1747, If no bowel movement in 24 hours, [...] 2 TIMES DAILY PRN, constipation, Starting on Sun03/06/24 at 1747, IF more than 1 constipation PRN medication [...] or to lock dormant line, Starting on Sun03/06/24 at 1747 Linked Groups Order Group 1: acetaminophen (TYLENOL) tablet 975 mgJump to med 975 mg, Oral, 3 TIMES DAILY, First dose on Sun03/12/24 at 1400, Maximum acetaminophen dose from all sources = 75 mg/kg/day not to exceed 4 grams/day. Or acetaminophen (TYLENOL) Suppository 650 mgJump to med 650 mg, Rectal, 3 TIMES DAILY, First dose on Sun03/12/24 at 1400, Maximum acetaminophen dose from all sources = 75 mg/kg/day not to exceed 4 grams/day. Group 2: HYDROmorphone (DILAUDID) tablet 4 mgJump to med 4 mg, Oral, EVERY 6 HOURS, First dose (after last modification) on Sun03/12/24 at 1130 Group 3: naloxone (NARCAN) injection 0.2 mgJump to med 0.2 mg, Intravenous, EVERY 2 MIN PRN, opioid reversal, Starting on Emiliana 03/06/24 at 2036, Administer intravenous route when available and notify [...] MIN PRN, opioid reversal, Starting on Emiliana 03/06/24 at 2036, Administer intravenous route when available and notify [...] 2 MIN PRN, opioid reversal, Starting on [facility] 03/06/24 at 2036, Administer intramuscular if an intravenous route is [...] 2 MIN PRN, opioid reversal, Starting on [facility] 03/06/24 at 2036, Administer intramuscular if an intravenous route is [...] not improved after 4 naloxone doses. Group 4: senna-docusate (SENOKOT-S/PERICOLACE) 8.6-50 MG per tablet 1 tabletJump to med 1 tablet, Oral, 2 TIMES DAILY PRN, constipation, Starting on Emiliana 03/06/24 at 1747, If no bowel movement in 24 hours, [...] 2 TIMES DAILY PRN, constipation, Starting on Emiliana 03/06/24 at 1747, IF more than 1 constipation PRN medication is ordered, administer step-aguilar as indicated, moving to the next step ONLY if prior step ineffective. Step 1: senna-docusate (SENOKOT-S; PERICOLACE) OR bisacodyl (DULCOLAX) EC tablet Step 2: polyethylene glycol (MIRALAX/GLYCOLAX) Step 3: bisacodyl (DULCOLAX) suppository Step 4: enema Hold for loose stools. documented in this encounter Care Teams Cupola Man Relationship Specialty Start Date End Date Stephon Corrales MD [facility] [id number] [place] [address] PCP - General 02/09/21 03/06/24 [place] [id number] [place] [address] PCP - General 03/07/24 documented as of this encounter
--- OUTSIDE RECORDS SUMMARY | 2024-04-09 16:54 | XMS_ITS | Encounter Summary ---
Author Organization [facility] Address [address] [place] [id number] Care Team Providers Care Loan Services Professional Name Role Phone Stephon Corrales MD Primary Care Provider [phone] Gregg Corrales MD Primary Care Provider Encounter Details Date Type Department Care Team (Late st Contact Info) Description 06/09/2021 Documentation Only INTERFACED REPORT Unknown, Provider Social History Tobacco Use Types Packs/Day Years Used Date Smoking Tobacco: Never Smokeless Tobacco: Never Alcohol Use Standard Drinks/Week Comments No 0 (1 standard drink = 0.6 oz pur e alcohol) Sex and Gender Information Value Date Recorded Sex Assigned at Not on file Gender Identity Not on file Sexual Orientation Not on file COVID-19 Exposure Response Date Recorded In the last month, have you been in contact with someone who was confirmed or suspected to have Coronavirus / COVID-19? 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
--- OUTSIDE RECORDS SUMMARY | 2024-04-09 16:54 | XMS_ITS | Clinical Summary ---
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 For routine questions regarding patient records, call [phone] during business hours, M-F 8:00 AM - 5:00 PM Central Time. Record requests for emergency care only can be directed to [phone] at any time.[facility] Allergies Active Allergy Reactions Criticality Noted Date Comments Duloxetine Other (see comments) 09/22/2017 B/P droop, shaking/tremor/fuzz y B/P droop, shaking/tremor/fuzz y B/P droop B/P droop, shaking/tremor/fuzz y B/P droop, shaking/tremor/fuzz y B/P droop, shaking/tremor/fuzz y B/P droop, shaking/tremor/fuzz y Duloxetine Hcl Other (see comments) 09/30/2020 Blood pressure dropped Blood pressure dropped Ferric Carboxymaltose Other (see comments) 10/23 Irritation at the injection site. Pt declined continuing infusion at lower rate. Iron Other (see comments) 06/06/2020 Iron Sucrose Anxiety,Edema (Reselect Reaction),GI intolerance,Hives (Reselect Reaction),Other (see comments) High 09/23/2017 Ondansetron Other (see comments) 04/29/2023 Patient refused to take because it can make QT long and has history of long QT. Medications * This document contains information received from the source organization and may not represent a complete record from that organization. spironolactone (for_ALDACTONE) 25 mg tablet Take 50 mg by mouth 2 (two) times a day. Active potassium chloride (for_K-TAB) 20 mEq CR tablet Take 80 mEq by mouth 5 (five) times a day. Active magnesium 200 mg tablet Take 400 mg by mouth 3 (three) times a day. Active calcium carbonate (TUMS) 500 mg (200 mg calcium) chewable tablet Chew 1 tablet as needed. Active polyethylene glycol (MIRALAX) 17 gram/dose oral powder Take 17 g by mouth at bedtime. 05/03/20 15 Active ferrous sulfate 325 mg (65 mg iron) DR tablet Take 325 mg by mouth 3 (three) times a day. Active gabapentin (NEURONTIN) 100 mg capsule 300 mg in the morning, 300 mg in the afternoon, 400 mg at bedtime 08/11/19 Active hydrOXYzine (ATARAX) 25 mg tablet Take 25-50 mg by mouth every 8 (eight) hours as needed for anxiety. 07/07/19 21 Active methocarbamoL (ROBAXIN) 750 mg tablet Take 750 mg by mouth daily as needed. 07/19/19 21 Active multivitamin,tx-mi nerals (Super Thera Ellyn M) tablet Take 1 tablet by mouth. Active ondansetron ODT (ZOFRAN-ODT) 4 mg disintegrating tablet Take 4 mg by mouth every 8 (eight) hours as needed. 05/12/20 21 Active traMADoL (ULTRAM) 50 mg tablet Take 1-2 tabs twice daily as needed for pain. 60 tablets should last 1 month. For chronic pain. 11/01/19 22 Active gabapentin (NEURONTIN) 300 mg capsule Take 300 mg by mouth 3 (three) times a day. 10/08/19 22 Active acetaminophen (TYLENOL) 500 mg tablet Take 1,000 mg by mouth every 6 (six) hours as needed. 08/14/19 24 Active albuterol 90 mcg/actuation inhaler Inhale 1-2 puffs every 4 (four) hours as needed. 12/20/19 23 Active traZODone (DESYREL) 50 mg tablet Take 1 tablet by mouth at bedtime. 08/20/19 13 021 Discontinued Active Problems Problem Noted Date Diagnosed Date Pain Wrist Right 07/23/2023 Hypercalcemia 07/03/2023 Overview (08/25/2023): Ca2+ 14.7 Opioid Mild Use Disorder (Abuse) Uncomplicated 0 03/21/2023 Overview (08/25/2023): 02/2023 admission for hypokalemia: There was concern for secondary gain of narcotics with pain reported out of proportion to expectation for muscle cramps/irritability with potassium derangement. This behavior has been documented previously since at least 2017 and opioid use should continue to be limited as able in the future. Myalgia Other Site 07/29/2022 Pain In Left Upper Arm 03/06/2022 Prolonged QT Interval 09/24/2021 Nausea And Vomiting 07/20/2021 Pain Low Back Chronic 07/20/2021 Prolonged QT Interval 07/20/2021 Nausea 07/20/2021 Ventral Hernia Without Obstruction Or Gangrene 0 11/22/2020 Anemia 11/21/2020 Pain Epigastric 11/21/2020 Strain Neck Initial 03/25/2020 Weakness Muscle 03/25/2020 Obstruction Intestinal 11/01/2019 Syncope 08/01/2018 Diarrhea 07/04/2018 Adjustment Disorder Mixed Reaction 09/17/2017 Opioid Moderate Or Severe Us e Disorder (Dependence) Uncomplicated 09/12/2017 Overview (05/12/2021): Regular use of opioid while inpatient and out patient. Referred to pain clinic, has not yet established. Multiple prescriptions by multiple providers. Regular use of opioid while inpatient and out patient. Referred to pain clinic, has not yet established. Multiple prescriptions by multiple providers. Chronic Pain Syndrome 07/27/2017 Overview (05/12/2021): Discussed with patient on admission that narcotics would no longer be a part of her treatment plan for hypokalemia admissions at [facility] Eros Melendez MD .................... 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 These include hypokalemia, metabolic alkalosis, hyperreninemia, hyperplasia of the juxtaglomerular apparatus (the source of renin in the kidney), and hyperaldosteronism. 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 These include hypokalemia, metabolic alkalosis, hyperreninemia, hyperplasia of the juxtaglomerular apparatus (the source of renin in the kidney), and hyperaldosteronism. 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 These include hypokalemia, metabolic alkalosis, hyperreninemia, hyperplasia of the juxtaglomerular apparatus (the source of renin in the kidney), and hyperaldosteronism. Hypokalemia 03/09/2015 Other Specified Anxiety Disorders 03/09/2015 Anxiety 02/19/2015 Overview (08/25/2023): per external records Depressive Disorder 02/18/2015 Overview (11/14/2016): Depression NOS Other Irritable Bowel Syndrome 02/18/2015 Malnourished 01/25/2015 Overview (11/14/2016): Malnutrition NOS Cachexia 01/24/2015 Overview (11/14/2016): Cachexia Alkalosis 01/17/2015 Overview (05/12/2021): Diagnosis updated by automated process. Provider to review and confirm. Diagnosis updated by automated process. Provider to review and confirm. 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 Erik Carolina APRN, C.N.P., D.N.P. History Of Falling (Primary Dx); Injury Head Initial; Hypokalemia; Hypercalcemia; Fracture Pubis Closed Initial Right (HCC); Laceration Eyebrow Initial Right; Gitelman Syndrome (HCC) Discharge Disposition: Acute Care Hospital 01/27/2024 8:34 AM CDT - 01/27/2024 9:27 AM CDT [facility] [address] [place] [address] [place] [phone] Ezequiel Barajas P.A.-C., P.A. Pain Knee Left (Primary Dx) Discharge Disposition: Home or Self Care from Last 3 Months Immunizations Name Administration Dates Next Due 4vHPV (discontinued) 05/15/2011,04/19/2009 DTP 10/18/1992,1991 DTaP (Infanrix, Tripedia) 11/28/1996,,1991,1991, HepA Adult 11/15/2009,04/19/2009 HepA Pediatric/Adolescent 11/15/2009,04/19/2009 HepB Adult 04/27/1993,10/18/1992,07/16/1992 HepB, Unspecified 04/27/1993,10/18/1992,07/16/18 93 Hib (PRP-T) (ACTHIB, HIBERIX) 10/20/1992 Hib, Unspecified 07/16/1992,1991 IPV 10/18/1992,1991,1991 ,1991 MCV4 (Menactra)(Discontinued) 04/19/2009 MMR 04/19/2009,11/16/2003,07/16/1992 OPV 11/28/1996 Td (Adult), adsorbed 11/16/2003 Tdap 08/30/2020,04/19/2009 Family History Medical History Relation Name Comments Raynaud's disease Aunt Irritable bowel syndrome Father Colon cancer Grandmother Maternal Hypothyroidism Mother Migraines Sister Alcohol abuse Uncle maternal Relation Name Status Comments Aunt Father Grandmother Maternal Mother Sister Uncle maternal Social History Tobacco Use Types Packs/Day Years Used Date Smoking Tobacco: Never Smokeless Tobacco: Never Alcohol Use Standard Drinks/Week Comments No 0 (1 standard drink = 0.6 oz pur e alcohol) Social Connection and Isolat ion Panel [NHANES] Answer Date Recorded In a typical week, how many times do you talk on the phone with family, friends, or neighbors? More than three times a week 04/07/2021 How often do you get togethe r with friends or relatives? Three times a week 04/07/2021 How often do you attend chur ch or temple services? Patient declined 04/07/2021 Do you belong to any clubs o r organizations such as protestant groups, unions, fraternal or athletic groups, or school groups? No 04/07/2021 How often do you attend meet ings of the clubs or organizations you belong to? Patient declined 04/07/2021 Are you , , di vorced, , never , or living with a partner? Never 04/07/2021 AUDIT-C Answer Date Recorded Q1: How often do you have a drink containing alc ohol? Never 04/07/2021 Average Number of Drinks Not on file 021 Frequency of Binge Drinking Not on file 03/25 Overall Financial Resource Strain (CARDIA) Answe r Date Recorded How hard is it for you to pa y for the very basics like food, housing, medical care, and heating? Somewhat hard 04/07/2021 [facility] - Occupational Stress Questionnaire Answer Date Recorded Do you feel stress - tense, restless, nervous, or anxious, or unable to sleep at night because your mind is troubled all the time - these days? Only a little 04/07/2021 Exercise Vital Sign Answer Date Recorde d On average, how many days pe r week do you engage in moderate to strenuous exercise (like a brisk walk)? 6 days 04/07/2021 On average, how many minutes do you engage in exercise at this level? 90 min 04/07/2021 Hunger Vital Sign Answer Date Recorded Within the past 12 months, y ou worried that your food would run out before you got the money to buy more. Sometimes true Within the past 12 months, t he food you bought just didn't last and you didn't have money to get more. Never true PRAPARE - Transportation Answer Date Re corded In the past 12 months, has l ack of transportation kept you from medical appointments or from getting medications? No 03/25 In the past 12 months, has l ack of transportation kept you from meetings, work, or from getting things needed for daily living? No 04/07/2021 Housing Stability Vital Sign Answer John e Recorded In the last 12 months, was t here a time when you were not able to pay the mortgage or rent on time? No 04/07/2021 In the last 12 months, how many places have you lived? 1 04/07/2021 In the last 12 months, was t here a time when you did not have a steady place to sleep or slept in a alf (including now)? No 04/07/2021 Nutrition Answer Date Recorded On average, how many serving s of fruits and vegetables do you eat per day (serving size is equal to 1 cup or approximately the size of a tennis ball)? 4-5 04/07/2021 Dental Answer Date Recorded Dental: Regular Dentist Unknown 04/07/20 Employment Answer Date Recorded Employment status Temporarily disabled Education Answer Date Recorded What is the highest level of school you have completed or the highest degree you have received? Bachelor's degree (e.g., BA, AB, BS) 04/07/2021 Comments Unknown Sex and Gender Information Value Date Recorded Sex Assigned at Female 04/07/2021 9:53 PM CDT Legal Sex Female 9:19 AM [employer] Gender Identity Female 04/07/2021 9:53 PM CDT Sexual Orientation Something else 04/07/2021 9: 53 PM CDT Last Filed Vital Signs Vital Sign Reading Time Taken Comments Blood Pressure 103/62 02/13/2024 9:45 PM CDT Pulse 79 02/13/2024 9:45 PM CDT Temperature 36.8 ??C (98.2 ??F) 02/13/2024 3:38 PM CD T Respiratory Rate 16 02/13/2024 4:55 PM CDT Oxygen Saturation 100% 02/13/2024 9:45 PM CDT Inhaled Oxygen Concentration - - Weight 48.8 kg (107 lb 9.4 oz) 02/13/2024 1:55 P M CDT Height 180 cm (5' 10.87) 11/06/2021 9:06 PM CDT Body Mass Index 15.06 11/06/2021 9:06 PM CDT Plan of Treatment Upcoming Encounters Date Type Department Care Team (Late st Contact Info) Description 04/28/2024 2:30 PM [employer] P[employer] Clinical Support Department of Medical Genetics in [place], [place] [address] [place] [phone] Janine Roberts M.D., Ph.D. [address] [place] [phone] Josselyn Membreno 05/06/2024 9:00 AM [employer] P[employer] Comprehensive Visit Department of Medical Genetics in [place], [place] [address] [place] [phone] Janine Roberts M.D., Ph.D. [address] [place] [phone] Health Maintenance Due Date Last Done Comments Cervical Cancer Screening 1991 Depression Monitoring (PHQ-9) 1991 HIV Screening 1991 Hepatitis C Screening 1991 HPV Vaccines (3 - 3-dose series) 08/07/2011 05/15/2011, 04/19/2009 COVID-19 Vaccine ( season) 2024 Influenza Vaccine (#1) 2024 Creatinine Level (Kidney Function Test) 04/04/2025 04/04/2024, 04/03/2024, 04/02/2024, Additional history exists Potassium Level 04/04/2025 04/04/2024, 03/25, 04/03/2024, Additional history exists Sodium Level 04/04/2025 04/04/2024, 03/25, 04/02/2024, Additional history exists DTaP,Tdap,and Td Vaccines (8 - Td or Tdap) 08/30/2030 08/30/2020, 04/19/2009, 11/16/2003, Additional history exists Hepatitis B Vaccines Completed 04/27/1993, 04/27/1993, 10/18/1992, Additional history exists Hepatitis A Vaccines Completed 11/15/2009, 11/15/2009, 04/19/2009, Additional history exists Pneumococcal vaccine (0-64 years) Aged Out No longer eligible based on patient's age to complete this topic Procedures Procedure Name Priority Date/Time Associated Diagnosis Comments LACERATION REPAIR Routine 02/13/2024 7:5 2 PM CDT CRITICAL CARE Routine 02/13/2024 6:26 PM CDT TROPONIN T, 2H/6H REFLEX, 5TH GEN, P Timed 02/13/2024 4:51 PM CDT DX FOOT RIGHT 3+ VIEWS RAD - Semiurgent (Fast; most ED patients; some inpatients) 02/13/2024 3:13 PM CDT DX HIP AND PELVIS RIGHT 2-3 VIEWS RAD - Semiurgent (Fast; most ED patients; some inpatients) 02/13/2024 3:[address] CERVICAL SPINE WITHOUT IV CONTRAST RAD - Semiurgent (Fast; most ED patients; some inpatients) 02/13/2024 3:[address] HEAD WITHOUT IV CONTRAST RAD - Semiurgent (Fast; most ED patients; some inpatients) 02/13/2024 3:07 PM CDT TEST, POCT, U (LAB) STAT 02/13/2024 2:38 PM CDT MAGNESIUM, S STAT 02/13/2024 2:30 PM CDT TROPONIN T, BASELINE, 5TH GEN, P STAT 02/13/2024 2:30 PM CDT CREATINE KINASE (CK), S STAT 02/13/2024 2:30 PM CDT BASIC METABOLIC PANEL, S/P STAT 02/13/2024 2:30 PM CDT CBC WITH DIFFERENTIAL, B STAT 02/13/2024 2:30 PM CDT ECG STAT 02/13/2024 1:52 PM CDT DX KNEE LEFT 4+ VIEWS RAD - Routine (most inpatients and all outpatients) 01/27/2024 9:00 AM CDT from Last 3 Months Results * Laceration Repair (02/13/2024 7:52 PM CDT) Narrative Josee Harris P.A.-C., P.A., M.S. - 02/13/2024 7:52 PM CDT Josee Harris P.A.-C., P.A., M.S. ? 02/13/2024 ??7:53 PM Laceration Repair Performed by: Josee Harris P.A.-C., P.AAnnel, M.S. Authorized by: Josee Harris P.A.-C., P.A., M.S. ?? PROCEDURE DETAILS Repair type: ??Simple Limited defect created (wound extended): no ?? Hemostasis achieved with: ??Direct pressure Contaminated: no ?? Wound exploration: entire depth of wound probed and visualized ?? Wound extent: no foreign body and no underlying fracture ?? Repair method: ??Sutures Suture size: ??5-0 Suture material: ??Prolene Suture technique: ??Simple interrupted Number of sutures: ??4 Approximation: ??Close CONSENT Consent obtained: verbal Consent given by: patient The benefits, risks and alternatives to the procedure and the potential need for sedation or anesthesia as well as the names, roles, and responsibilities of healthcare team members performing significant interventional tasks were discussed with the patient and/or decision maker. SEDATION / ANESTHESIA Anesthesia method: local infiltration Local infiltrate type: lidocaine PRE PROCEDURE DETAILS Indication: laceration ?? Location: ??Face Face location: ??Right eyebrow Length (cm): ??2.5 Area cleansed with: ??Povidone/iodine, saline and chlorhexidine Amount of cleaning: ??Standard Irrigation solution: ??Sterile saline Irrigation volume (mL): ??250 Irrigation method: ??Syringe Foreign body imaging: ??CT Appropriate hand hygiene, gown, cap, mask, protective eyewear, sterile gloves, skin preparation, sterile drape, and strict aseptic technique were utilized as applicable for the procedure.: Yes ?? POST PROCEDURE DETAILS Procedure completed successfully: yes ?? Tetanus status up to date: ??Up to date Dressing Applied: yes ?? Dressing applied: ??Antibiotic ointment Complications: no immediate complications ?? Result [facility] Josee Harris P.A.-C., P.AAnnel, M.S. PROCEDURE/MINOR SURGICAL ORDERABLES Final Result * Critical Care (02/13/2024 6:26 PM CDT) Narrative Josee Harris P.A.-C., P.Oliver, M.S. - 02/13/2024 6:26 PM CDT Josee Harris P.A.-C., P.Oliver, M.S. ? 02/13/2024 ??7:52 PM Critical Care Performed by: Josee Harris P.A.-C., P.Oliver, M.S. Authorized by: Josee Harris P.A.-C., P.AAnnel, M.S. ?? Critical care provider statement: Critical care total time (minutes): 60 Critical care time was exclusive of: separately billable procedures and treating other patients and teaching time CPR was performed on this patient: no ?? Critical care was necessary to treat or prevent imminent or life-threatening deterioration of the following conditions: metabolic crisis trauma renal failure dehydration cardiac arrhythmia I O PSYCHOLOGIST failure or compromise Critical care was time spent personally by me on the following activities: blood draw for specimens, development of treatment plan with patient or surrogate, discussing treatment issues with family or surrogate, discussions with consultants, documenting in the patient chart, evaluation of patient's response to treatment, examination of patient, obtaining history from patient or surrogate, ordering and performing treatments and interventions, ordering and review of laboratory studies, ordering and review of radiographic studies, pulse oximetry, re-evaluation of patient's condition and review of old charts I assumed direction of critical care for this patient from another provider in my specialty: no ?? Result [facility] Josee Lux.Oliver-C., P.A., M.S. PROCEDURE/MINOR SURGICAL ORDERABLES Final Result * Troponin T, 2 Hour with 6 Hour Reflex, 5th Gen (02/13/2024 4:51 PM CDT) Troponin T, 2 hr, 5th gen 10 <=10 ng/L 02/13/2024 5:15 PM CDT CNFL 2H Delta -2 ng/L 02/13/2024 5:15 PM CDT CNFL Comment:6 hour collection no t indicated. 2H Delta Interp Not Changing 02/13/2024 5:15 PM CDT CNFL Blood 02/13/2024 4:51 PM CDT 02/13/2024 4:55 PM CDT Josee L Kimberly Chavez-C., P.A., M.S. LAB BLOOD TROPO ENRIQUE Final Result Performing Organization Address City/State/[facility] Co de Phone Number [facility] [address] [place] [address], [facility] CNFL [place] [address] * DX Foot Right 3+ Views (02/13/2024 3:13 PM CDT) Anatomical Region Laterality Modality Lower Extremity, Foot, Muscu loskeletal RST LOS, Musculoskeletal ARZ LOS, Muskuloskeletal FLA LOS Right Digit al Radiography Impressions 02/13/2024 3:18 PM CDT Negative right foot radiographs. Narrative 02/13/2024 3:18 PM CDT EXAM: DX FOOT RIGHT 3+ VIEWS Procedure Note Cholo Oviedo M.D. - 02/13/2024 EXAM: DX FOOT RIGHT 3+ VIEWS IMPRESSION: Negative right foot radiographs. us Josee Harris P.A.-C., P.A., M.S. IMG DIAGNOSTIC IMAGING PROCEDURES Final Result * DX Hip And Pelvis Right 2-3 Views (02/13/2024 3:11 PM CDT) Anatomical Region Laterality Modality Lower Extremity, Pelvis, Hip , Musculoskeletal RST LOS, Musculoskeletal ARZ LOS, Muskuloskeletal FLA LOS Right Digit al Radiography Impressions 02/13/2024 3:23 PM CDT There is an acute minimally displaced fracture of the right inferior pubic ramus. These are often associated with fractures of the superior pubic ramus though one is not definitely seen, consider further evaluation with CT. Narrative 02/13/2024 3:23 PM CDT EXAM: DX HIP AND PELVIS RIGHT 2-3 VIEWS Procedure Note Joseph Whitehead M.D. - 02/13/2024 EXAM: DX HIP AND PELVIS RIGHT 2-3 VIEWS IMPRESSION: There is an acute minimally displaced fracture of the right inferior pubicramus. These are often associated with fractures of the superior pubicramus though one is not definitely seen, consider further evaluation withCT. us Josee Harris P.A.-C., P.A., M.S. IMG DIAGNOSTIC IMAGING PROCEDURES Final Result * CT Cervical Spine without IV Contrast (02/13/2024 3:09 PM CDT) Anatomical Region Laterality Modality Cervical Spine, Neuroradiolo gy RST LOS, Neuroradiology ARZ LOS, Neuroradiology FLA LOS N/A Computed Tomography 02/13/2024 3:02 PM CDT Impressions 02/13/2024 3:13 PM CDT 1. No acute intracranial abnormality. 2. Straightening of usual cervical lordosis without evidence of fracture or post traumatic malalignment. Narrative 02/13/2024 3:13 PM CDT EXAM: CT HEAD WITHOUT IV CONTRAST, CT CERVICAL SPINE WITHOUT IV CONTRAST COMPARISON: Correlation with prior brain MRI 10/09/2007; CT of the neck soft tissues 06/09/2017. FINDINGS: CT head: Cortical and cerebellar volumes are within normal limits. Basilar cisterns remain patent. Normal ventricular size and configuration. There is no intra-axial hemorrhage. No evidence of mass effect or midline shift. Garcia-white matter differentiation is within normal limits. There is no abnormal extra-axial fluid collection. Calvarial structures are intact. Imaged paranasal sinuses and mastoid air cells are clear. Soft tissue swelling over the right orbit. No retained radiopaque foreign object. CT cervical spine: Intact occipital condyles. Normal-appearing atlantodental and atlantooccipital articulations. Straightening of usual cervical lordosis. No listhesis. Vertebral body heights are preserved. Mild changes of spondylosis at C5-C6. Normal-appearing facet joints. No acute facet malalignment. No fracture. No abnormal prevertebral soft tissue swelling. No CT findings to suggest the presence of high-grade osseous canal stenosis or neuroforaminal encroachment. Procedure Note Erik Martinez M.D. - 02/13/2024 EXAM: CT HEAD WITHOUT IV CONTRAST, CT CERVICAL SPINE WITHOUT IV CONTRAST COMPARISON: Correlation with prior brain MRI 10/09/2007; CT of the necksoft tissues 06/09/2017. FINDINGS: CT head: Cortical and cerebellar volumes are within normal limits. Basilar cisternsremain patent. Normal ventricular size and configuration. There is nointra-axial hemorrhage. No evidence of mass effect or midline shift.Garcia-white matter differentiation is within normal limits. There is no abnormal extra-axial fluid collection.Calvarial structures are intact. Imaged paranasal sinuses and mastoid aircells are clear. Soft tissue swelling over the right orbit. No retainedradiopaque foreign object. CT cervical spine: Intact occipital condyles. Normal-appearing atlantodental andatlantooccipital articulations. Straightening of usual cervical lordosis.No listhesis. Vertebral body heights are preserved. Mild changes ofspondylosis at C5-C6. Normal-appearing facet joints. No acute facet malalignment. No fracture. No abnormal prevertebral soft tissue swelling. No CT findings to suggestthe presence of high-grade osseous canal stenosis or neuroforaminalencroachment. IMPRESSION: 1. No acute intracranial abnormality. 2. Straightening of usual cervical lordosis without evidence of fractureor post traumatic malalignment. us Josee Harris P.A.-C., P.A., M.S. IMG CT PROCEDUR ES Final Result * CT Head without IV Contrast (02/13/2024 3:07 PM CDT) Anatomical Region Laterality Modality Head, Neuroradiology RST LOS , Neuroradiology ARZ LOS, Neuroradiology FLA LOS N/A Computed Tomography 02/13/2024 3:03 PM CDT Impressions 02/13/2024 3:13 PM CDT 1. No acute intracranial abnormality. 2. Straightening of usual cervical lordosis without evidence of fracture or post traumatic malalignment. Narrative 02/13/2024 3:13 PM CDT EXAM: CT HEAD WITHOUT IV CONTRAST, CT CERVICAL SPINE WITHOUT IV CONTRAST COMPARISON: Correlation with prior brain MRI 10/09/2007; CT of the neck soft tissues 06/09/2017. FINDINGS: CT head: Cortical and cerebellar volumes are within normal limits. Basilar cisterns remain patent. Normal ventricular size and configuration. There is no intra-axial hemorrhage. No evidence of mass effect or midline shift. Garcia-white matter differentiation is within normal limits. There is no abnormal extra-axial fluid collection. Calvarial structures are intact. Imaged paranasal sinuses and mastoid air cells are clear. Soft tissue swelling over the right orbit. No retained radiopaque foreign object. CT cervical spine: Intact occipital condyles. Normal-appearing atlantodental and atlantooccipital articulations. Straightening of usual cervical lordosis. No listhesis. Vertebral body heights are preserved. Mild changes of spondylosis at C5-C6. Normal-appearing facet joints. No acute facet malalignment. No fracture. No abnormal prevertebral soft tissue swelling. No CT findings to suggest the presence of high-grade osseous canal stenosis or neuroforaminal encroachment. Procedure Note Erik Martinez M.D. - 02/13/2024 EXAM: CT HEAD WITHOUT IV CONTRAST, CT CERVICAL SPINE WITHOUT IV CONTRAST COMPARISON: Correlation with prior brain MRI 10/09/2007; CT of the necksoft tissues 06/09/2017. FINDINGS: CT head: Cortical and cerebellar volumes are within normal limits. Basilar cisternsremain patent. Normal ventricular size and configuration. There is nointra-axial hemorrhage. No evidence of mass effect or midline shift.Garcia-white matter differentiation is within normal limits. There is no abnormal extra-axial fluid collection.Calvarial structures are intact. Imaged paranasal sinuses and mastoid aircells are clear. Soft tissue swelling over the right orbit. No retainedradiopaque foreign object. CT cervical spine: Intact occipital condyles. Normal-appearing atlantodental andatlantooccipital articulations. Straightening of usual cervical lordosis.No listhesis. Vertebral body heights are preserved. Mild changes ofspondylosis at C5-C6. Normal-appearing facet joints. No acute facet malalignment. No fracture. No abnormal prevertebral soft tissue swelling. No CT findings to suggestthe presence of high-grade osseous canal stenosis or neuroforaminalencroachment. IMPRESSION: 1. No acute intracranial abnormality. 2. Straightening of usual cervical lordosis without evidence of fractureor post traumatic malalignment. Josee Harris P.A.-C., P.A., M.S. IMG CT PROCEDUR ES Final Result * Test, POCT, Urine (Lab) (02/13/2024 2:38 PM CDT) Test, POCT, U Negative 02/13/2024 2:49 PM CDT FL Urine (Urine, Midstream) 02/13/2024 2:38 PM CDT 02/13/2024 2:41 PM CDT Josee Harris P.A.-C., P.A., M.S. LAB POCT ORDERA BLES - DEVICE Final Result [facility] [address] [place] [address], [facility] in [address] [address] * (ABNORMAL) Troponin T, Baseline with 2 Hour/6 Hour Reflex Biomarker Panel (02/13/2024 2:30 PM CDT) Troponin T, Baseline, 5th gen 12(H) <=10 ng/L 02/13/2024 3:01 PM CDT CNFL Blood (Blood, Venous) 02/13/2024 2:30 PM CDT 02/13/2024 2:32 PM CDT us Josee Harris P.A.-C., P.A., M.S. LAB BLOOD TROPO ENRIQUE Final Result Performing Organization Address City/State/[facility] Co de Phone Number [facility] [address] [place] [address], [facility] CNFL [facility] [address] * (ABNORMAL) CBC with Differential, Blood (02/13/2024 2:30 PM CDT) Hemoglobin 10.2(L) 11.6 - 15.0 g/dL 02/13/2024 2:39 PM CDT CNFL Hematocrit 30.0(L) 35.5 - 44.9 % 02/13/2024 2:39 PM CDT CNFL Erythrocytes 3.84(L) 3.92 - 5.13 x10(12)/L 02/13/2024 2:39 PM CDT CNFL MCV 78.1(L) 78.2 - 97.9 fL 02/13/2024 2:39 PM CDT CNFL RBC Distrib Width 18.0(H) 12.2 - 16.1 % 02/13/2024 2:39 PM CDT CNFL Platelet Count 601(H) 157 - 371 x10(9)/L 02/13/2024 2:39 PM CDT CNFL Leukocytes 14.0(H) 3.4 - 9.6 x10(9)/L 02/13/2024 2:39 PM CDT CNFL Neutrophils 11.83(H) 1.56 - 6.45 x10(9)/L 02/13/2024 2:39 PM CDT CNFL Lymphocytes 1.30 0.95 - 3.07 x10(9)/L 02/13/2024 2:39 PM CDT CNFL Monocytes 0.73 0.26 - 0.81 x10(9)/L 02/13/2024 2:39 PM CDT CNFL Eosinophils 0.06 0.03 - 0.48 x10(9)/L 02/13/2024 2:39 PM CDT CNFL Basophils <0.04 0.01 - 0.08 x10(9)/L 02/13/2024 2:39 PM CDT CNFL Blood (Blood, Venous) 02/13/2024 2:30 PM CDT 02/13/2024 2:32 PM CDT Josee Harris P.A.-C., P.A., M.S. LAB BLOOD ADD-O N Final Result Performing Organization Address [facility]/[place] [address], [place] [address] * Magnesium (02/13/2024 2:30 PM CDT) Magnesium, P 2.3 1.7 - 2.3 mg/dL 02/13/2024 2:50 PM CDT CNFL Blood (Blood, Venous) 02/13/2024 2:30 PM CDT 02/13/2024 2:32 PM CDT Josee Harris P.A.-C., P.A., M.S. LAB BLOOD ADD-O N Final Result Performing Organization Address [facility]/State/[place] [address], [place] [address] * (ABNORMAL) CK (Creatine Kinase) (02/13/2024 2:30 PM CDT) Creatine Kinase, P 393(H) 26 - 192 U/L 02/13/2024 2:50 PM CDT CNFL Blood (Blood, Venous) 02/13/2024 2:30 PM CDT 02/13/2024 2:32 PM CDT us Josee Harris P.A.-C., PManjit, M.S. LAB BLOOD ADD-O N Final Result [facility] [address] [place] [address], [facility] CNFL [facility] in [address] [address] * (ABNORMAL) Basic Metabolic Panel (02/13/2024 2:30 PM CDT) Potassium, P 2.0(CL) 3.6 - 5.2 mmol/L 02/13/2024 3:46 PM CDT CNFL Sodium, P 134(L) 135 - 145 mmol/L 02/13/2024 2:50 PM CDT CNFL Chloride, P 68(L) 98 - 107 mmol/L 02/13/2024 3:46 PM CDT CNFL Bicarbonate, P >50(H) 22 - 29 mmol/L 02/13/2024 3:46 PM CDT CNFL Anion Gap, P SEE COMMENT 7 - 15 02/13/2024 3:46 PM CDT CNFL Comment:Unable to calculate. BUN (Blood Urea Nitrogen), P 46(H) 6 - 21 mg/dL 02/13/2024 2:50 PM CDT CNFL Creatinine 2.62(H) 0.59 - 1.04 mg/dL 02/13/2024 2:50 PM CDT CNFL Estimated GFR (eGFR) 24(L) >=60 mL/min/BS A 02/13/2024 2:50 PM CDT CNFL Comment: Estimated GFR calculated using the 2020 CKD_EPI creatinine equation. Calcium, Total, P 14.0(CH) 8.6 - 10.0 mg/dL 02/13/2024 3:46 PM CDT CNFL Glucose, P 160(H) 70 - 140 mg/dL 02/13/2024 2:50 PM CDT CNFL Blood (Blood, Venous) 02/13/2024 2:30 PM CDT 02/13/2024 2:32 PM CDT us Josee Harris P.A.-C., P.A., M.S. LAB BLOOD ADD-O N Final Result Performing Organization Address [facility] Co de Phone Number [facility] [address] [place] [address], [facility] [address] [address] * ECG 12 Lead (02/13/2024 1:52 PM CDT) Ventricular Rate ECG/Min 74 BPM MUSE VA Interval 130 ms MUSE QRSD Interval 92 ms MUSE QT Interval 524 ms MUSE QTC Interval 581 ms MUSE P [place] 62 degrees MUSE R [place] 82 degrees MUSE T Wave [place] 65 degrees MUSE CODED DIAGNOSIS Semi-Urgent Finding (Prolonged QT) MUSE 02/13/2024 1:52 PM CDT 02/13/2024 2:05 PM CDT Impressions MUSE - 02/13/2024 2:05 PM CDT Semi-Urgent Finding (Prolonged QT) Normal sinus rhythm Minimal voltage criteria for LVH, may be normal variant Nonspecific ST and T wave abnormality Prolonged QT When compared with ECG of 25-Aug-2023 12:01, No significant change was found Reviewed by TAYLOR Balderrama Narrative Procedure Note Blaine Carrizales M.D. - 02/13/2024 IMPRESSION: Semi-Urgent Finding (Prolonged QT) Normal sinus rhythm Minimal voltage criteria for LVH, may be normal variant Nonspecific ST and T wave abnormality Prolonged QT When compared with ECG of 25-Aug-2023 12:01, No significant change was found Reviewed by TAYLOR Balderrama us Josee Harris P.A.-C., P.A., M.S. ECG ORDERABLES Edited Result - Final Performing Organization Address [facility]/ZIP Co de Phone Number MUSE NA * DX Knee Left 4+ Views (01/27/2024 9:00 AM CDT) Anatomical Region Laterality Modality Lower Extremity, Knee, Muscu loskeletal RST LOS, Musculoskeletal ARZ LOS, Muskuloskeletal FLA LOS Left Digit al Radiography Impressions 01/27/2024 9:09 AM CDT Left knee: Negative for acute fracture or dislocation. No significant joint effusion. Soft tissues are unremarkable. Narrative 01/27/2024 9:09 AM CDT EXAM: DX KNEE LEFT 4+ VIEWS Procedure Note Steve Grossman M.B., Guicho, MMedhat - 01/27/2024 EXAM: DX KNEE LEFT 4+ VIEWS IMPRESSION: Left knee: Negative for acute fracture or dislocation. No significantjoint effusion. Soft tissues are unremarkable. Ezequiel Barajas P.A.-C., P.A. IMG DIAGNOSTIC TERI GING PROCEDURES Final Result from Last 3 Months Insurance [address] [place] [address] [facility] [employer] MEDICARE Member Subscriber Plan / Payer (Ef fective 2018-Present) Name:Lorraine Klein Member ID:[id number] Relation to Subscriber:Self Name:Lorraine Klein Subscriber ID:[id number] Payer ID:Not on file Group ID:Not on file Type:Medicare Address: [address] [place] [id number] Advance Directives For more information, please contact: [phone] * Full Code (Latest Code Status on File) Date Activated Date Inactivated Comments 11/06/2021 8:16 PM 11/07/2021 7:19 PM Question Answer Comments Full Code: Discussed * Full Code Date Activated Date Inactivated Comments 09/24/2021 2:12 PM 09/25/2021 7:34 PM Question Answer Comments Full Code: Discussed Care Teams Paving Block Cutter Relationship Specialty Start Date End Date Elsewhere, Pcp PCP - General Internal Medicine 09/03/19
--- OUTSIDE RECORDS SUMMARY | 2024-04-09 16:54 | XMS_ITS | Encounter Summary ---
Author Organization [place] Address [address] [place] [address] Care Team Providers Care Theatrical Variety Agent Name Role Phone Mary Crabtree MD Primary Care Provider [phone] Gregg Corrales MD [facility] + Stephon Corrales MD Primary Care Provider [phone] Gregg Corrales MD Primary Care Provider Reason for Visit * Reason Onset Date Comments MH/CD Inpatient 03/15/2015 Encounter Details Date Type Department Care Team (Late st Contact Info) Description 03/15/2015 Telephone [facility] Behavioral Health Intake [address] [place] [phone] Generic, Behavioral Intake, MH/CD Inpatient Social History Tobacco Use Types Packs/Day Years Used Date Smoking Tobacco: Never Alcohol Use Standard Drinks/Week Comments No 0 (1 standard drink = 0.6 oz pur e alcohol) Sex and Gender Information Value Date Recorded Sex Assigned at Not on file Gender Identity Not on file Sexual Orientation Not on file documented as of this encounter Miscellaneous Notes * Telephone Encounter - Ambreen Du - 03/15/2015 4:23 PM CDT S; pt is a 24 yr old fem in ED for increasing dep B: Pt reports hx of therapy but no mh meds. Pt reports constant thoughts of wishing she were for the past week. Pt denies any intent or plan. Pt has a flat affect, helpless, hopeless, and not sleeping. Denies any cd issues. A: vol R: 7N / Laura documented in this encounter Plan of Treatment Not on file documented as of this encounter Visit Diagnoses Not on filedocumented in this encounter Additional Health Concerns Infection Onset Date Last Indicated Resolved Time Rule Out COVID-19 10/31/2019 10/31/2019 11/01/2019 12:18 PM CDT Rule Out COVID-19 04/30/2022 04/30/2022 04/30/2022 12:25 PM EPITAXIAL REACTOR TECHNICIAN Rule Out COVID-19 05/16/2022 05/16/2022 05/16/2022 6:08 PM EPITAXIAL REACTOR TECHNICIAN Rule Out C-difficile 05/16/2022 05/17/2022 022 11:51 AM EPITAXIAL REACTOR TECHNICIAN documented as of this encounter Care Teams Theatrical Variety Agent Relationship Specialty Start Date End Date Mary Crabtree MD [address] [place] [address] PCP - General Family Practice 03/15/15 03/06/18 Gre[place] [id number] [place] [address] PCP - General 03/07/18 08/09/[address] [address] PCP - General 08/10/19 02/08/21 Stephon Corrales MD [facility] [id number] [place] [address] PCP - General 02/09/21 03/06/24 [place] [address] [place] [address] PCP - General 03/07/24 documented as of this encounter
--- OUTSIDE RECORDS SUMMARY | 2024-04-09 16:54 | XMS_ITS | Encounter Summary ---
Author Organization [place] Address [facility] [place] [address] Care Team Providers Care Coater Hand Name Role Phone Stephon Corrales MD Primary Care Provider [phone] Encounter Details Date Type Department Care Team (Latest Contact Info) Description 03/06/2024 Travel Social History Tobacco Use Types Packs/Day [...] in an abandoned building, in an overnight intermediate, or couch-surfing.) Yes 03/06/2024 Are you worried [...] on filedocumented in this encounter Care Teams Coater Hand Relationship Specialty Start Date End Date Stephon Corrales MD [address] [address] PCP - General 02/09/21 03/06/24 documented as of this encounter
--- OUTSIDE RECORDS SUMMARY | 2024-04-09 16:54 | XMS_ITS | Encounter Summary ---
Author Organization [place] Address [address] [place] [address] Care Team Providers Care Joy Loading Machine Operator Name Role Phone Stephon Corrales MD Primary Care Provider Gregg Corrales MD Primary Care Provider Encounter Details Date Type Department Care Team (Late st Contact Info) Description 04/27/2021 Documentation Only INTERFACED REPORT Unknown, Provider Social [...] have Coronavirus / COVID-19? No / Unsure 04/27/2021 3:03 PM CDT documented as of this encounter Plan of Treatment Not on file documented as of this encounter Visit Diagnoses Not on filedocumented in this encounter Additional Health Concerns Infection Onset Date Last Indicated Resolved Time Rule Out COVID-19 04/30/2022 04/30/2022 04/30/2022 12:25 PM ANALYTICAL CLERK Rule Out COVID-19 05/16/2022 05/16/2022 05/16/2022 6:08 PM ANALYTICAL CLERK Rule Out C-difficile 05/16/2022 05/17/2022 022 11:51 AM ANALYTICAL CLERK documented as of this encounter Care Teams Joy Loading Machine Operator Relationship Specialty Start Date End Date Stephon Crorales MD [facility] [address] [place] [address] PCP - General 02/09/21 03/06/24 [place] [address] [place] [address] PCP - General 03/07/24 documented as of this encounter
--- OUTSIDE RECORDS SUMMARY | 2024-04-09 16:54 | XMS_ITS ---
Author Organization [facility] Address [address] [place] [address] Care Team Providers Care Sharepoint Admin Name Role Phone Gregg Corrales MD Primary Care Provider Transitional Care Management Status:Closed (Closed) Start date:03/13/2024 Enrollment date:03/13/2024 End date:03/27/2024 Close reason:Goals met Continued Care and Services Coordination
--- OUTSIDE RECORDS SUMMARY | 2024-04-09 16:54 | XMS_ITS | Encounter Summary ---
Author Organization [place] Address [facility] [place] [address] Care Team Providers Care Gas Generator Operator Name Role Phone Gregg Corrales MD Primary Care Provider Encounter Details Date Type Department Care Team (Latest Contact Info) Description 03/20/2024 Travel Social History Tobacco Use Types Packs/Day [...] you got money to buy more? No 03/20/2024 Within the past 12 months, d id the food you bought just not last and you didn? t have money to get more? No 03/20/2024 Housing Stability Answer Date Recorded Do you have housing? (Felice g is defined as stable permanent housing and does not include staying ouside in a car, in a tent, in an abandoned building, in an overnight group home, or couch-surfing.) Yes 03/20/2024 Are you worried about losing your housing? No 03/20/2024 Financial Resource Strain Answer Date R ecorded Within the past 12 months, h ave you or your family members you live with been unable to get utilities (heat, electricity) when it was really needed? No 03/20/2024 Transportation Needs Answer Date Record ed Within [...] on filedocumented in this encounter Care Teams Gas Generator Operator Relationship Specialty [place] [address] [place] [address] PCP - General 03/07/24 documented as of this encounter
--- OUTSIDE RECORDS SUMMARY | 2024-04-09 16:55 | XMS_ITS | Encounter Summary ---
Author Organization [facility] Address [address] [place] [address] Care Team Providers Care Enterprise Business Architect Name Role Phone Elsewhere, Pcp Primary Care Provider Unavailabl e Reason for Referral * Outpatient (Routine) - Authorized Specialty Diagnoses / Procedures Referred By Miguelangel t Referred To Contact Emergency Medicine Diagnoses Pain Knee Left Ezequiel Barajas P.A.-C., P.A. [address] [phone] Phone: tel: fax: [facility] Region Referral ID Status Reason Start Date Expiration Date V isits Requested Visits Authorized [id number] Authorized 01/27/2024 07/28/2025 1 1 Reason for Visit * Reason Comments Knee Pain Presents with left k nee pain after she fell last week Encounter Details Date Type Department Care Team (Late Contact Info) Description 01/27/2024 8:34 AM CDT - 01/27/2024 9:27 AM CDT Emergency [facility] [address] [place] [address] [place] [phone] Ezequiel Barajas P.A.Veronica., P.A. [address] [place] [phone] Pain Knee Left (Primary Dx) Discharge Disposition: Home or Self Care Social [...] 04/07/2021 How often do you attend chur or christian services? Patient declined 04/07/2021 Do you belong to any clubs o r organizations such as episcopalian groups, unions, fraternal or athletic groups, or [...] medical care, and heating? Somewhat hard 04/07/2021 [facility] Occupat ional Health - Occupational Stress [...] place to sleep or slept in a penitentiary (including now)? No 04/07/2021 Nutrition Answer Date Recorded On average, how many serving s of fruits and vegetables do you eat per day (serving size is equal to 1 cup or approximately the size of a tennis ball)? 4-5 04/07/2021 Dental Answer Date Recorded Dental: Regular Dentist Yes 07/05/19 Employment Answer Date Recorded Employment status Temporarily disabled Education Answer Date Recorded What is the highest level of school you have completed or the highest degree you have received? Bachelor's degree (e.g., BA, AB, BS) 04/07/2021 Comments Unknown Sex and Gender Information Value Date Recorded Sex Assigned at Female 04/07/2021 9:53 PM CDT Legal Sex Female 9:19 AM SHOP AND ALTERATION TAILOR Gender Identity Female 04/07/2021 9:53 PM CDT Sexual Orientation Something else 04/07/2021 9: 53 PM CDT documented as of this encounter Last Filed Vital Signs Vital Sign Reading Time Taken Comments Blood Pressure 132/74 01/27/2024 8:38 AM CDT Pulse 99 01/27/2024 8:38 AM CDT Temperature 36.8 ??C (98.2 ??F) 01/27/2024 8:37 AM CD T Respiratory Rate 16 01/27/2024 8:38 AM CDT Oxygen Saturation 98% 01/27/2024 8:38 AM CDT Inhaled Oxygen Concentration - - Weight - - Height - - Body Mass Index - - documented in this encounter Discharge Instructions * Discharge Instructions* Ezequiel Barajas P.A.-C., P.A. - 01/27/2024 9:17 AM CDT Ibuprofen 600 mg and tylenol 1000 mg every 6 hours as needed for pain. Tramadol or Percocet as needed that you have at home. Ayan wrap. Elevate the leg. Use crutches. Follow up with orthopedics. * Attachments The following attachments cannot be sent through Care Everywhere. * Acute Knee Pain Adult (Lebanese) documented in this encounter Medications at Time of Discharge acetaminophen (TYLENOL) 500 mg tablet Take 1,000 mg by mouth every 6 (six) hours as needed. 08/14/2023 albuterol 90 mcg/actuation inhaler Inhale 1-2 puffs every 4 (four) hours as needed. 12/19/2022 calcium carbonate (TUMS) 500 mg (200 mg calcium) chewable tablet Chew 1 tablet as needed. ferrous sulfate 325 mg (65 mg iron) DR tablet Take 325 mg by mouth 3 (three) times a day. gabapentin (NEURONTIN) 100 mg capsule 300 mg in the morning, 300 mg in the afternoon, 400 mg at bedtime 08/11/2020 gabapentin (NEURONTIN) 300 mg capsule Take 300 mg by mouth 3 (three) times a day. 10/07/2021 hydrOXYzine (ATARAX) 25 mg tablet Take 25-50 mg by mouth every 8 (eight) hours as needed for anxiety. 07/07/2020 magnesium 200 mg tablet Take 400 mg by mouth 3 (three) times a day. methocarbamoL (ROBAXIN) 750 mg tablet Take 750 mg by mouth daily as needed. 07/19/2020 multivitamin,tx-mine rals (Super Thera Ellyn M) tablet Take 1 tablet by mouth. ondansetron ODT (ZOFRAN-ODT) 4 mg disintegrating tablet Take 4 mg by mouth every 8 (eight) hours as needed. 05/12/2021 polyethylene glycol (MIRALAX) 17 gram/dose oral powder Take 17 g by mouth at bedtime. 05/03/2015 potassium chloride (for_K-TAB) 20 mEq CR tablet Take 80 mEq by mouth 5 (five) times a day. spironolactone (for_ALDACTONE) 25 mg tablet Take 50 mg by mouth 2 (two) times a day. traMADoL (ULTRAM) 50 mg tablet Take 1-2 tabs twice daily as needed for pain. 60 tablets should last 1 month. For chronic pain. 10/31/2021 documented as of this encounter ED Notes * Ezequiel Barajas P.A.-C., P.A. - 01/27/2024 9:18 AM CDT SUBJECTIVE CHIEF COMPLAINT/REASON FOR VISIT Knee Pain (Presents with left knee pain after she fell last week) HISTORY OF PRESENT ILLNESS Lorraine Klein is a 33-year-old female that presents with knee pain. She fell about a week agoinjuring her left knee. She did not have pain immediately but later developed pain. She was seen inclinic 3 days ago for this and was given Percocet. She states the pain seems to have worsened in the last couple of days. She is having difficulty bearing weight although is able to bear weight. She feels that she has some swelling and bruising at her knee. No other complaints noted. History provided by: Patient 3rd pressman needed/used: no Knee Pain Location: Knee Time since incident: 1 week Injury: yes Mechanism of injury: fall Knee location: L knee Chronicity: New Dislocation: no Associated symptoms: swelling Associated symptoms: no back pain REVIEW OF SYSTEMS Musculoskeletal: Negative for back pain. Left knee pain Skin: Negative for color change and wound. OBJECTIVE Initial Vitals Temperature 01/27/24 0837 36.8 ??C Pulse Rate 01/27/24 0838 99 Heart Rate -- Resp Rate 01/27/24 0838 16 Blood Pressure 01/27/24 0838 132/74 SpO2 01/27/24 0838 98 % Pain Score 01/27/24 0835 8 PHYSICAL EXAMINATION Constitutional: Nursing note and vitals reviewed. Vital signs are normal. She is active. She does not appear ill. No distress. HENT: Head: Normocephalic and atraumatic. Eyes: Conjunctivae and lids are normal. Neck: Phonation normal. Cardiovascular: Normal rate. Pulmonary/Chest: Effort normal. No tachypnea. No respiratory distress. Musculoskeletal: Cervical back: No pain with movement. Left upper leg: Normal. Left knee: Ecchymosis present. No swelling, deformity, effusion, bony tenderness or crepitus. Tenderness present. No medial joint line tenderness. Left lower leg: Normal. Comments: Tender throughout the anterior knee. No swelling noted. Minor ecchymosis at the superior anterior aspect of the knee. Neurological: Alert and oriented to person, place, and time. Normal speech. Skin: Skin is warm, dry and normal color. No rash noted. Psychiatric: She has a normal mood and affect. Relaxed. ASSESSMENT/PLAN Assessment and Plan Lorraine Klein is a 33-year-old female that presents with knee pain. She states that she fell about a week ago injuring her left knee. She did not have immediate pain but later developed pain a few days afterwards. She has had pain for at least 3 or 4 days with some difficulty bearing weight. On my exam she appears uncomfortable. She is tender throughout the knee. She does not have an effusion or obvious bony tenderness. She was given a dose of Toradol and oxycodone. X-ray did not show anyfracture or dislocation. I recommended that she continue ibuprofen, Tylenol and her home pain medications. We discussed elevation and rest. She was given crutches. I would like her to follow-up in [facility] with orthopedics for possible further evaluation.. DIFFERENTIAL DIAGNOSES Meniscus injury, ligament injury, fracture, dislocation, contusion. PROBLEMS ADDRESSED THIS VISIT Knee injury. I reviewed the following external records: primary care records. ED Course as of 01/27/24917 Sun Jan 27, [id number] On initial assessment, the patient appears uncomfortable for knee pain. 0912 DX Knee Left 4+ Views IMPRESSION: Left knee: Negative for acute fracture or dislocation. No significant joint effusion. Soft tissues are unremarkable. Final Diagnoses: as of 01/27/24917 Pain Knee Left The following tests were considered but ultimately not performed: None. Escalation of care, including admission/observation, considered: None. Ezequiel Barajas P.A.-C., P.A. 01/27/[address] documented in this encounter Plan of Treatment Upcoming Encounters Date Type Department Care Team (Late st Contact Info) Description 04/28/2024 2:30 PM SHOP AND ALTERATION TAILOR Clinical Support Department of Medical Genetics in [place], [place] [address] [place] [phone] Janine Roberts M.D., Ph.D. [address] [place] [phone] Josselyn Membreno 05/06/2024 9:00 AM SHOP AND ALTERATION TAILOR Comprehensive Visit Department of Medical Genetics in [place], [place] [address] [place] [phone] Janine Roberts M.D., Ph.D. [address] [place] [phone] Scheduled Referrals Name Type Priority Associated Diagnoses Order Schedule POST ED VISIT Orthopedic Surgery Outpatient Referral Routine Pain Knee Left Expected: 01/27/2024, Expires: 04/28/2025 documented as of this encounter Procedures Procedure Name Priority Date/Time Associated Diagnosis Comments DX KNEE LEFT 4+ VIEWS RAD - Routine (most inpatients and all outpatients) 01/27/2024 9:00 AM CDT documented in this encounter Results * DX Knee Left 4+ Views (01/27/2024 [...] 4+ VIEWS Procedure Note Steve Grossman M.B., Jessie Lindo. - 01/27/2024 EXAM: DX KNEE LEFT 4+ VIEWS IMPRESSION: Left knee: Negative for acute fracture or dislocation. No significantjoint effusion. Soft tissues are unremarkable. Kathy Olmedo P.A.-C. IMG DIAGNOSTIC TERI GING PROCEDURES Final Result documented in this encounter Visit Diagnoses Diagnosis Pain Knee Left- Primary documented in this encounter Administered Medications Inactive Administered Medications - up to 3 most recent administrations Medication Order MAR Action Action Date Dose Rate Site ketorolac injection 15 mg (ToradoL) 15 mg, intramuscular, Once, On 01/27/24 at 0904, For 1 dose, Adult IV push rate: Over 15 seconds. Peds IV push rate: Over 1 minute. Doses > 15 mg IV/IM are discouraged due to lack of additional analgesic benefit. Given 01/27/2024 9:17 AM CDT 15 mg Left Vastus Laterali s oxyCODONE IR tablet 5 mg (Roxicodone) 5 mg, oral, Once, On 01/27/24 at 0904, For 1 dose Given 01/27/2024 9:17 AM CDT 5 mg documented in this encounter Active and Recently Administered Medications Times are shown in CDT. Scheduled Medication Order 01/25/2024 01/26/2024 01/27/2024 ketorolac injection 15 mg (ToradoL) (COMPLETED) 15 mg, intramuscular, Once, On 01/27/24 at 0904, For 1 dose, Adult IV push rate: Over 15 seconds. Peds IV push rate: Over 1 minute. Doses > 15 mg IV/IM are discouraged due to lack of additional analgesic benefit. 0917 (Given - Provid er: Vicky Tony, R.N.) oxyCODONE IR tablet 5 mg (Roxicodone) (COMPLETED) 5 mg, oral, Once, On 01/27/24 at 0904, For 1 dose 0917 (Given - Provid er: Vicky Tony, R.N.) documented in this encounter Additional Health Concerns Assessment Noted Time PHQ-9 Depression Total Score: 3 01/26/20 15 9:58 AM CDT documented as of this encounter Care Teams Enterprise Business Architect Relationship Specialty Start Date End Date Elsewhere, Pcp PCP - General Internal Medicine 09/03/19 documented as of this encounter
--- OUTSIDE RECORDS SUMMARY | 2024-04-09 16:55 | XMS_ITS | Encounter Summary ---
Author Organization [facility] Address [address] [place] [address] Care Team Providers Care Picking Supervisor Name Role Phone Elsewhere, Pcp Primary Care Provider Unavailabl e Encounter Details Date Type Department Care Team (Latest Contact Info) Description 07/09/2023 Intake [facility] Social History Tobacco Use Types Packs/Day [...] often do you attend chur ch or moravian services? Patient declined 04/07/2021 Do you belong to any clubs o r organizations such as mosque groups, unions, fraternal or athletic groups, or [...] medical care, and heating? Somewhat hard 04/07/2021 [facility] of [facility]at [facility] - Occupational Stress Questionnaire Answer Date Recorded [...] place to sleep or slept in a fci (including now)? No 04/07/2021 Nutrition Answer Date [...] degree (e.g., BA, AB, BS) 04/07/2021 Comments No Sex and Gender Information Value Date Recorded Sex Assigned at Female 04/07/2021 9:53 PM CDT Legal Sex Female 9:19 AM GATE SHEAR OPERATOR Gender Identity Female 04/07/2021 9:53 PM CDT Sexual Orientation Something else 04/07/2021 9: 53 PM CDT documented as of this encounter Plan of Treatment Upcoming Encounters Date Type Department Care Team (Late st Contact Info) Description 04/28/2024 2:30 PM GATE SHEAR OPERATOR Clinical Support Department of Medical Genetics in [place], [place] [address] [place] [phone] Janine Roberts M.D., Ph.D. [address] [place] [phone] Josselyn Membreno 05/06/2024 9:00 AM GATE SHEAR OPERATOR Comprehensive Visit Department of Medical Genetics in [place], [place] [address] [place] [phone] Janine Roberts M.D., Ph.D. [address] [place] [phone] documented as of this encounter Visit Diagnoses Not on filedocumented in this encounter Additional Health Concerns Infection Onset Date Last Indicated Resolved Time COVID19 Pending 08/25/2023 08/25/2023 08/25/2023 1 1:39 AM GATE SHEAR OPERATOR Assessment Noted Time PHQ-9 Depression Total Score: 3 01/26/20 15 9:58 AM CDT documented as of this encounter Care Teams Picking Supervisor Relationship Specialty Start Date End Date Elsewhere, Pcp PCP - General Internal Medicine 09/03/19 documented as of this encounter
--- OUTSIDE RECORDS SUMMARY | 2024-04-09 16:55 | XMS_ITS | Referral Summary ---
Author Organization [facility] Address [address] [place] [address] Care Team Providers Care Automotive Center Manager Name Role Phone Elsewhere, Pcp Primary Care Provider Unavailabl e Source Comments Patient records contain information from all sites at [facility]. For routine questions regarding patient records, call [phone] during business hours, M-F 8:00 AM - 5:00 PM Central Time. Record requests for emergency care only can be directed to [phone] at any time.[facility] Encounters Date Type Department Care Team Description 04/07/2024 Orders Only Department of Medical Genetics in [place], [place] [address] [place] [phone] [facility], Provider, Gitelman Syndrome (HCC) 02/13/2024 1:41 PM CDT - 02/13/2024 9:55 PM CDT Emergency [facility] [address] [place] [phone] Josee Harris P.A.-C., P.A., M.S. Erik Carolina APRN, C.N.P., D.N.P. History Of Falling (Primary Dx); Injury Head Initial; Hypokalemia; Hypercalcemia; Fracture Pubis Closed Initial Right (HCC); Laceration Eyebrow Initial Right; Gitelman Syndrome (HCC) Discharge Disposition: Acute Care Hospital 01/27/2024 8:34 AM CDT - 01/27/2024 9:27 AM CDT Emergency [facility] [address] [place] [phone] Ezequiel Barajas P.A.-C., P.A. Pain Knee Left (Primary Dx) Discharge Disposition: Home or Self Care from Last 3 Months Allergies Active Allergy [...] the afternoon, 400 mg at bedtime 08/11/19 21 Active hydrOXYzine (ATARAX) 25 mg tablet Take [...] has been documented previously since at least 2018 and opioid use should continue to be [...] her treatment plan for hypokalemia admissions at [facility] [place] Eros Melendez MD .................... 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 Dizziness 09/18/2006 Immunizations Name Administration Dates Next Due 4vHPV (discontinued) 05/15/2011,04/19/2009 DTP 10/18/1992,1991 DTaP (Infanrix, Tripedia) 11/28/1996,,1991,1991, HepA Adult 11/15/2009,04/19/2009 HepA Pediatric/Adolescent 11/15/2009,04/19/2009 HepB Adult 04/27/1993,10/18/1992,07/16/1992 HepB, Unspecified 04/27/1993,10/18/1992,07/16/18 93 Hib (PRP-T) (ACTHIB, HIBERIX) 10/20/1992 Hib, Unspecified 07/16/1992,1991 IPV 10/18/1992,1991,1991 ,1991 MCV4 (Menactra)(Discontinued) 04/19/2009 MMR 04/19/2009,11/16/2003,07/16/1992 OPV 11/28/1996 Td (Adult), adsorbed 11/16/2003 Tdap 08/30/2020,04/19/2009 Social History Tobacco Use Types Packs/Day Years [...] often do you attend chur ch or faith services? Patient declined 04/07/2021 Do you belong to any clubs o r organizations such as tenriism groups, unions, fraternal or athletic groups, or [...] medical care, and heating? Somewhat hard 04/07/2021 [facility] of Occupat ional Health - Occupational Stress [...] PM CDT Legal Sex Female 9:19 AM LANDSCAPER Gender Identity Female 04/07/2021 9:53 PM CDT [...] st Contact Info) Description 04/28/2024 2:30 PM LANDSCAPER Clinical Support Department of Medical Genetics in [place], [place] [address] [place] [phone] Janine Roberts M.D., Ph.D. [address] [place] [phone] Josselyn Membreno 05/06/2024 9:00 AM LANDSCAPER Comprehensive Visit Department of Medical Genetics in [place], [place] [address] [place] [phone] Janine Roberts M.D., Ph.D. [address] [place] [phone] Procedures Procedure Name Priority Date/Time Associated Diagnosis [...] Laceration Repair Performed by: Josee Harris P.A.-C., P.A., M.S. Authorized by: Josee Harris P.A.-C., P.A., [...] ??Antibiotic ointment Complications: no immediate complications ?? Josee Harris P.A.-C., P.A., M.S. PROCEDURE/MINOR SURGICAL ORDERABLES Final Result * Critical Care (02/13/2024 6:26 PM CDT) Narrative Josee Harris P.A.-C., P.A., M.S. - 02/13/2024 6:26 PM CDT Josee Harris P.A.-C., P.A., M.S. ? 02/13/2024 ??7:52 PM Critical Care Performed by: Josee Hraris P.A.-C., P.A., M.S. Authorized by: Josee Harris P.A.-C., P.A., M.S. ?? Critical care provider statement: Critical care total time (minutes): 60 Critical care time was exclusive of: separately billable procedures and treating other patients and teaching time CPR was performed on this patient: no ?? Critical care was necessary to treat or prevent imminent or life-threatening deterioration of the following conditions: metabolic crisis trauma renal failure dehydration cardiac arrhythmia SENIOR SOFTWARE DEVELOPMENT MANAGER failure or compromise Critical care was time [...] another provider in my specialty: no ?? us Josee Harris P.A.-C., P.A., M.S. PROCEDURE/MINOR SURGICAL ORDERABLES Final Result [...] PM CDT 02/13/2024 4:55 PM CDT Josee Harris P.A.-C., P.A., M.S. LAB BLOOD TROPO ENRIQUE Final Result [facility] [address] [place] [phone], [facility] CNFL [facility] in [address] [address] * DX Foot Right 3+ Views (02/13/2024 [...] 3+ VIEWS IMPRESSION: Negative right foot radiographs. Josee Harris P.A.-C., P.A., M.S. [facility] DIAGNOSTIC IMAGING PROCEDURES Final Result * DX [...] not definitely seen, consider further evaluation withCT. Josee Harris P.A.-C., P.A., M.S. [facility] DIAGNOSTIC IMAGING PROCEDURES Final Result * CT [...] Anatomical Region Laterality Modality Head, Neuroradiology RST [facility] , Neuroradiology ARZ [facility], Neuroradiology FLA [facility] N/A Computed Tomography 02/13/2024 3:03 PM CDT [...] POCT, U Negative 02/13/2024 2:49 PM CDT CNFL Urine (Urine, Midstream) 02/13/2024 2:38 PM CDT 02/13/2024 2:41 PM CDT Josee Harris P.A.-C., P.A., M.S. LAB POCT ORDERA BLES - DEVICE Final Result Performing Organization Address [facility]/[place] [address], [facility] [place] [address] * (ABNORMAL) Troponin T, Baseline with 2 Hour/6 Hour Reflex Biomarker Panel (02/13/2024 2:30 PM CDT) [facility] Troponin T, Baseline, 5th gen 12(H) <=10 ng/L 02/13/2024 3:01 PM CDT CNFL Blood (Blood, Venous) 02/13/2024 2:30 PM CDT 02/13/2024 2:32 PM CDT us Josee Harris P.A.-C. P.AAnnel, M.S. LAB BLOOD TROPO ENRIQUE Final Result [address] [address], [facility] [place] [address] * (ABNORMAL) CBC with Differential, Blood (02/13/2024 2:30 PM CDT) [facility] Hemoglobin 10.2(L) 11.6 - 15.0 g/dL 02/13/2024 [...] ADD-O N Final Result Performing Organization Address [facility]/ZIP Co de Phone Number [facility] [address] [place] [phone], [facility] [address] [address] * Magnesium (02/13/2024 2:30 PM CDT) Magnesium, P 2.3 1.7 - 2.3 mg/dL 02/13/2024 2:50 PM CDT CNFL Blood (Blood, Venous) 02/13/2024 2:30 PM CDT 02/13/2024 2:32 PM CDT us Josee Harris P.A.-C., P.A., M.S. LAB BLOOD ADD-O N Final Result [address] [address], [place] [address] * (ABNORMAL) CK (Creatine Kinase) (02/13/2024 2:30 PM CDT) Creatine Kinase, P 393(H) 26 - 192 U/L 02/13/2024 2:50 PM CDT CNFL Blood (Blood, Venous) 02/13/2024 2:30 PM CDT 02/13/2024 2:32 PM CDT us Josee Harris P.A.-C., P.A., M.S. LAB BLOOD ADD-O N Final Result Performing Organization Address [facility] Co de Phone Number [address] [address], [address] [address] * (ABNORMAL) Basic Metabolic Panel (02/13/2024 2:30 [...] ADD-O N Final Result Performing Organization Address City/State/[facility] Co de Phone Number [facility] [address] [place] [address], [facility] CNFL [facility] [place] [address] * ECG 12 Lead (02/13/2024 1:52 PM CDT) Ventricular Rate ECG/Min 74 BPM MUSE TX Interval 130 ms MUSE QRSD Interval 92 ms MUSE QT Interval 524 ms MUSE QTC Interval 581 ms MUSE P [place] 62 degrees MUSE R [place] 82 degrees MUSE T Wave [place] 65 degrees MUSE CODED DIAGNOSIS Semi-Urgent Finding [...] No significant change was found Reviewed by ATYLOR Balderrama us Josee Harris P.A.-C., P.A., M.S. ECG ORDERABLES Edited Result - Final MUSE NA * DX Knee Left 4+ [...] VIEWS Procedure Note Steve Grossman M.B., Guicho, MAnnelD. - 01/27/2024 EXAM: DX KNEE LEFT 4+ VIEWS IMPRESSION: Left knee: Negative for acute fracture or dislocation. No significantjoint effusion. Soft tissues are unremarkable. us Ezequiel Barajas P.A.-C., P.A. IMG DIAGNOSTIC TERI GING PROCEDURES Final Result from Last 3 Months Insurance [facility] [employer] MEDICARE Advance Directives For more information, please contact: [phone] * Full Code (Latest Code Status on File) Date Activated Date Inactivated Comments 11/06/2021 8:16 PM 11/07/2021 7:19 PM Question Answer Comments Full Code: Discussed * Full Code Date Activated Date Inactivated Comments 09/24/2021 2:12 PM 09/25/2021 7:34 PM Question Answer Comments Full Code: Discussed Care Teams Automotive Center Manager Relationship Specialty Start Date End Date Elsewhere, Pcp PCP - General Internal Medicine 09/03/19
--- OUTSIDE RECORDS SUMMARY | 2024-04-09 16:55 | XMS_ITS ---
Author Organization [facility] Address [address] [place] [address] Care Team Providers Care Top Cutter Name Role Phone Unavailable Unavailable Unavailable Surgery Details Not on file Complications Check Surgery Details section. Procedure Estimated Blood Loss Check Surgery Details section. Procedure Findings Check Surgery Details section. Procedure Specimens Taken Check Surgery Details section.
--- OUTSIDE RECORDS SUMMARY | 2024-04-09 16:55 | XMS_ITS | Continuity of Care Document ---
Author Organization [facility] Address [address] [address] [place] [address] Phone Care Team Providers Care Tire Buster Name Role Phone Anthony Hernandez MD Unavailable [...] Date Provider Providers Copied on Encounter [facility], [address] [address], [place], [id number], [place] tel:[phone] [facility] No Information 0 Mary Cruz. [address] [facility], [facility] [address], [place], [place], [id number], [place]. tel:[phone] [facility], [address] [address], [place], [place], [id number], [place] tel:[phone] [facility] Generalized abdominal pain 0 Joyce Brown. [address] [facility], [facility] [address], [place], [id number], [place]. tel:[phone] [facility] H[facility] Minr Compl [facility], [address] [address], [place], [place], [address], [place] tel:[phone] [facility] No Information 0 Joyce Brown. [address] [facility], [facility] [address], [place], [address], [place]. tel:[phone] Referring Provider: Kevin Cook MD, [address] [facility] [address], [address]. tel:[phone] [facility], [address] [address], [facility], [address], [place] tel:[phone] [facility] No Information 0 Joyce Brown. [address] [facility], [facility] [address], [place], [id number], [place]. tel:[phone] Referring Provider: Kevin Cook MD, [address] [facility] [address], [address]. tel:[phone] Init Hosp-da E&m Mod Severity [facility], [address] [address], [place], [place], [address], [place] tel:[phone] [facility] No Information 0 Cornelio Stevenson. [address] [place] [address] [place], [place], [id number], [place]. tel:[phone] Referring Provider: Edgar SANCHEZ, [address] [place], [address]. tel:[phone] [facility] Stable 15 M [facility], [address] [address], [place], [place], [address], [place] tel:[phone] [facility] No Information No Information Referring Provider: Gregg Szymanski, [address] [place], [address]. tel:[phone] Init Inpt Cons New/est Mod-hi [facility], [address] [address], [place], [place], [address], [place] tel:[phone] [facility] No Information 8 No Information Referring Provider: Gregg Szymanski, [address] [place], [address]. tel:[phone] [facility] Hosp-da E&m Stable 15 M [facility], [address] [address], [place], [place], [address], [place] tel:[phone] [facility] No Information 8 Flory Askew. [facility], [facility] [address], [place], [address], [place]. tel:[phone] Referring Provider: Azar Ruth MD, [address] [place] [address], [address]. tel:[phone] Init Inpt Cons New/est Mod-hi [facility], [address] [address], [place], [address], [place] tel:[phone] [facility] No Information Aug- 8 Sajan Ritter. [address] [facility], [facility] [address], [place], [place], [id number], [place]. tel:[phone] Referring Provider: Riya Lino, [address] [place] [address], [place], [address]. tel:[phone] Offic/outpt E&m Estab Minor 10 [facility], [address] [address], [place], [id number], [place] tel:[phone] [facility] Feeding tube issues (chief complaint) Atten To Gastrostomy 0 No Information Offic/outpt E&m Estab Minor 10 [facility], [address] [address], [place], [id number], [place] tel:[phone] [facility] G-tube change (chief complaint) Atten To Gastrostomy 3200 9 No Information Offic/outpt E&m Estab Minor 10 [facility], [address] [address], [place], [address], [place] tel:[phone] [facility] No Information 4200 9 No Information Offic/outpt E&m Estab Mod-hi 2 [facility], [address] [address], [place], [address], [place] tel:[phone] [facility] Check up feeding tube (chief complaint) UnderweightU nderweight 8200 9 No Information Subsqt Hosp-da E&m Minr Compl [facility], [address] [address], [place], [address], [place] tel:[phone] [facility] No Information 8200 9 No Information Subsqt Hosp-da E&m Minr Compl [facility], [address] [address], [place], [address], [place] tel:[phone] [facility] No Information [place]-0 6200 9 No Information Subsqt Hosp-da E&m Minr Compl [facility], [address] [address], [place], [place], [address], [place] tel:[phone] [facility] No Information [place]-0 2-200 9 No Information Offic/outpt E&m Estab Mod-hi 2 [facility], [address] [address], [place], [place], [address], [place] tel:[phone] [facility] consultation for g-tube (chief complaint) Underweight 9 No Information Offic/outpt E&m Estab Mod-hi 2 [facility], [address] [address], [place], [place], [address], [place] tel:[phone] [facility] Diarrhea Apr-0 9-200 8 No Information Subsqt Hosp-da E&m Minr Compl [facility], [address] [address], [place], [place], [address], [place] tel:[phone] [facility] No Information Apr-0 7-200 8 No Information Referring Provider: Zeynep Smith, [address], [place], [address]. tel:[phone] Subsqt Hosp-da E&m Minr Compl [facility], [address] [address], [place], [place], [address], [place] tel:[phone] [facility] No Information Apr-0 2-200 8 No Information Referring Provider: Zeynep Smith, [address], [place], [address]. tel:[phone] [facility], [address] [address], [place], [place], [address], [place] tel:[phone] [facility] No Information Apr-0 2-200 8 Will OCAISO . [address] [facility], [facility] [address], [place], [place], [address], [place]. tel:[phone] Referring Provider: Zeynep Smith, [address], [place], [address]. tel:[phone] Subsqt Hosp-da E&m Minr Compl [facility], [address] [address], [place], [address], [place] tel:[phone] [facility] No Information 6 No Information Referring Provider: Zeynep Smith, [address], [place], [address]. tel:[phone] Init Inpt Cons New/est Mod-hi [facility], [address] [address], [place], [address], [place] tel:[phone] [facility] No Information 6 No Information Referring Provider: Zeynep Smith, [address], [place], [address]. tel:[phone] [facility]&m Minr Compl [facility], [address] [address], [place], [address], [place] tel:[phone] [facility] No Information 6 No Information Referring Provider: Zeynep Smith, [address], [place], [address]. tel:[phone] Init Inpt Cons New/est Mod-hi [facility], [address] [address], [place], [address], [place] tel:[phone] [facility] No Information 6 No Information Referring Provider: Zeynep Smith, [address], [place], [address]. tel:[phone] Offic Cons New/estab Mod- [facility], [address] [address], [place], [address], [place] tel:[phone] [facility] abdominal pain,unspeci fied Nov- 6 No Information Referring Provider: Zeynep Smith, [address], [place], [address]. tel:[phone] Family History Family Member Type Diagnosis Age [...] Colitis Payers Payer name Insurance type Covered libertarian ID Authoriza tion(s) No Information Social History [...]
--- OUTSIDE RECORDS SUMMARY | 2024-04-09 16:55 | XMS_ITS | Clinical Summary ---
Author Organization [facility] Address [address] [address] Phone Care Team Providers Care Truck Leasing Manager Name Role Phone Elsewhere, Pcp Primary Care Provider Unavailabl e Allergies No known active allergies Medications traZODone (DESYREL) 50 MG tablet Take 1 Tab by mouth at bedtime. 90 Tab 1 08/20/2012 Active citalopram (CELEXA) 20 MG tablet Take 1 Tab by mouth one time a day. 90 Tab 1 08/20/2012 Active Active Problems Problem Noted Date Diagnosed Date Major depression, recurrent 08/02/2012 DENICE (generalized anxiety disorder) 08/02/2012 Medical History Medical History Date Comments Irritable bowel syndrome Depression Family History Medical History Relation Comments Psychiatric Disease Maternal Aunt 1 depression/a nxiety Psychiatric Disease Maternal Aunt 2 depresison/a nxiety Psychiatric Disease Mother depression/a nxiety Musculo-skeletal Disease Other 1 Aunt RA Skin Condition Other 1 Aunt with Autoim mune Skin condition Musculo-skeletal Disease Other 2 Aunt RA Musculo-skeletal Disease Other 3 Cousin with Lupus Musculo-skeletal Disease Sister JRA Relation Status Comments Maternal Aunt 1 Maternal Aunt 2 Mother Other 1 Other 2 Other 3 Sister Social History Tobacco Use Types Packs/Day Years Used Date Smoking Tobacco: Never Alcohol Use Standard Drinks/Week Comments Not Asked 0 (1 standard drink = 0.6 oz pur e alcohol) Comments No Sex and Gender Information Value Date Recorded Sex Assigned at Not on file Legal Sex Female 8:53 PM [employer] Gender Identity Not on file Sexual Orientation Not on file Obstetrics History Last Filed Vital Signs Vital Sign Reading Time Taken Comments Blood Pressure 106/72 08/20/2012 10:41 AM [employer] Pulse 68 08/20/2012 10:41 AM [employer] Temperature 36.5 ??C (97.7 ??F) 08/20/2012 10:[address] Respiratory Rate 12 08/20/2012 10:41 AM [employer] Oxygen Saturation 100% 07/11/2012 2:31 PM [employer] Inhaled Oxygen Concentration - - Weight 53.3 kg (117 lb 9.6 oz) 08/20/2012 10:41 AM [employer] Height 170.2 cm (5' 7) 07/11/2012 2:31 PM [employer] Body Mass Index 18.42 07/11/2012 2:31 PM [employer] Plan of Treatment Health Maintenance Due Date Last Done Comments Cervical Cancer Screening 1991 Last pap w/ HPV Testing 1991 Last pap w/o HPV Testing 1991 Hepatitis B Vaccine (Standin g Order) (1 of 3 - 19+ 3-dose series) 2010 PERTUSSIS (Standing Order) 2010 TETANUS (Standing Order) 2010 COVID-19 Vaccine (2023-2 5 season) 2024 Influenza Vaccine Seasonal (Standing Order) (#1) 2024 RSV Vaccination (60+ yrs) (Abrysvo/Arexvy) (1 - 1-dose 75+ series) 2066 HPV Vaccine (Standing Order) Aged Out No longer eligible based on patient's age to complete this topic Pneumococcal/PCV20 Vaccine: Pediatrics (2-5 yrs) and At-Risk Patients (6-64 yrs) (Standing Order) Aged Out No longer eligible b ased on patient's age to complete this topic Insurance BCBS OTHER STATE [facility] Commercial Address: [facility] [address] [place] [address] [place] [address] Care Teams Truck Leasing Manager Relationship Specialty Start Date End Date Elsewhere, Pcp PCP - General 12/24/15
--- OUTSIDE RECORDS SUMMARY | 2024-04-09 16:55 | XMS_ITS | Encounter Summary ---
Author Organization [facility] Address [address] [place] [address] Care Team Providers Care Wool Carder Name Role Phone Elsewhere, Pcp Primary Care Provider Unavailabl e Reason for Visit * Reason Comments Fall Encounter Details Date Type Department Care Team (Late st Contact Info) Description 02/13/2024 1:41 PM CDT - 02/13/2024 9:55 PM CDT Emergency [facility] [address] [place] [id number] Josee Harris P.A.-C., P.A., M.S. [address] [place] [address] Erik Carolina APRN, C.N.P., D.N.P. [address] [place] [address] History Of Falling (Primary Dx); Injury Head Initial; Hypokalemia; Hypercalcemia; Fracture Pubis Closed Initial Right (HCC); Laceration Eyebrow Initial Right; Gitelman Syndrome (HCC) Discharge Disposition: Acute Care Hospital Social History Tobacco Use Types Packs/Day Years [...] often do you attend chur ch or confucianist services? Patient declined 04/07/2021 Do you belong to any clubs o r organizations such as rastafari groups, unions, fraternal or athletic groups, or [...] medical care, and heating? Somewhat hard 04/07/2021 [facility] - [...] place to sleep or slept in a [facility] (including now)? 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 10/31/2021 documented as of this encounter Procedure Notes * Josee Harris P.A.-C., P.A., M.S. - 02/13/2024 7:52 PM CDTAssociated Order(s): Laceration Repair Procedure Laceration Repair Performed by: Josee Harris P.A.-C., P.Oliver, M.S. Authorized by: Josee Harris P.A.-C., P.AAnnel, M.S. PROCEDURE DETAILS Repair type: Simple Limited defect created (wound extended): no Hemostasis achieved with: Direct pressure Contaminated: no Wound exploration: entire depth of wound probed and visualized Wound extent: no foreign body and no underlying fracture Repair method: Sutures Suture size: 5-0 Suture material: Prolene Suture technique: Simple interrupted Number of sutures: 4 Approximation: Close CONSENT Consent obtained: verbal Consent given by: [...] type: lidocaine PRE PROCEDURE DETAILS Indication: laceration Location: Face Face location: Right eyebrow Length (cm): 2.5 Area cleansed with: Povidone/iodine, saline and chlorhexidine Amount of cleaning: Standard Irrigation solution: Sterile saline Irrigation volume (mL): 250 Irrigation method: Syringe Foreign body imaging: CT Appropriate hand hygiene, gown, cap, mask, protective eyewear, sterile gloves, skin preparation, sterile drape, and strict aseptic technique were utilized as applicable for the procedure.: Yes POST PROCEDURE DETAILS Procedure completed successfully: yes Tetanus status up to date: Up to date Dressing Applied: yes Dressing applied: Antibiotic ointment Complications: no immediate complications Josee Harris P.A.-C., P.Oliver, M.SAnnel 02/13/241952 * Josee Harris P.A.-C., PManjit, M.S. - 02/13/2024 6:26 PM CDTAssociated Order(s): Critical Care Procedure Critical Care Performed by: Josee Harris P.A.-C., PManjit, M.S. Authorized by: Josee Harris P.A.-C., PManjit, M.S. 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 02/13/241951 documented in this encounter ED Notes * Erik Carolina APRN, C.N.P., D.N.P. - 02/13/2024 7:25 PM CDT Images from the original note were not included. SIGN-OUT NOTE BRIEF HISTORY Lorraine Klein is a 33 y.o. female signed out to me by josselyn Harris PAC at 1900. For a complete history and physical exam, please see their note. In brief, this patient presented to the emergency department for fall with hi;p pain. Found to be hypokalemic, hypercalcemic with inferior pubic rami fracture. . Bed assignment is/are pending at this time and will be followed by myself. Plan of care includes observation treat pain if need. Anticipated disposition is transfer to [facility]. . BRIEF PHYSICAL EXAMINATION Alert and oriented x3, pupils are equal and reactive to light reports increased pain to hip area. Otherwise resting gently in bed. DIAGNOSTICS Laboratory: Labs Reviewed CBC WITH DIFFERENTIAL, B - Abnormal Result Value Hemoglobin 10.2 (*) Hematocrit 30.0 (*) Erythrocytes 3.84 (*) MCV 78.1 (*) RBC Distrib Width 18.0 (*) Platelet Count 601 (*) Leukocytes 14.0 (*) Neutrophils 11.83 (*) Lymphocytes 1.30 Monocytes 0.73 Eosinophils 0.06 Basophils <0.04 BASIC METABOLIC PANEL, S/P - Abnormal Potassium, P 2.0 (*) Sodium, P 134 (*) Chloride, P 68 (*) Bicarbonate, P >50 (*) Anion Gap, P SEE COMMENT BUN (Blood Urea Nitrogen), P 46 (*) Creatinine 2.62 (*) Estimated GFR (eGFR) 24 (*) Calcium, Total, P 14.0 (*) Glucose, P 160 (*) CREATINE KINASE (CK), S - Abnormal Creatine Kinase, P 393 (*) TROPONIN T, BASELINE, 5TH GEN, P - Abnormal Troponin T, Baseline, 5th gen 12 (*) TEST, POCT, U (LAB) Test, POCT, U Negative MAGNESIUM, S Magnesium, P 2.3 TROPONIN T, 2H/6H REFLEX, 5TH GEN, P Troponin T, 2 hr, 5th gen 10 2H Delta -2 2H Delta Interp Not Changing Imaging: DX Foot Right 3+ Views Final Result Negative right foot radiographs. DX Hip And Pelvis Right 2-3 Views Final Result There is an acute minimally displaced fracture of the right inferior pubic ramus. These are often associated with fractures of the superior pubic ramus though one is not definitely seen, consider further evaluation with CT. CT Cervical Spine without IV Contrast Final Result 1. No acute intracranial abnormality. 2. Straightening of usual cervical lordosis without evidence of fracture or post traumatic malalignment. CT Head without IV Contrast Final Result 1. No acute intracranial abnormality. 2. Straightening of usual cervical lordosis without evidence of fracture or post traumatic malalignment. I have reviewed the radiology film. These are the interpretations of the findings. Please see the full radiologist's dictation for official report. ECG: ECG 12 Lead Result Date: 02/13/2024 Semi-Urgent Finding (Prolonged QT) Normal sinus rhythm Minimal voltage criteria for LVH, may be normal variant Nonspecific ST and T wave abnormality Prolonged QT When compared with ECG of 25-Aug-2023 12:01, No significant change was found Reviewed by TAYLOR Balderrama I have reviewed the patient's EKG, with comments made as listed above. Please see scanned image forfull interpretation. PROCEDURES: None See separate procedure note. ED COURSE ED Course as of 02/13/242147Feb 13, 20241925 Called [facility] regarding bed, they are in report and will be calling back. 2027 [place] called back with a bed. Now were waiting for transport. They are going down to [place], will come back and get her and bring her to [place]. So there will be roughly a 2 hour delay for transport. Will allow the patient to eat and given regular diet 2142 Ambulance here to transfer to [place]. Report per nursing. Patient is complaining of increased pain 02/01. Will give her a dose of Dilaudid prior to transfer. Final Diagnoses: as of 02/13/242147 History Of Falling Injury Head Initial Hypokalemia Hypercalcemia Fracture Pubis Closed Initial Right (HCC) Laceration Eyebrow Initial Right Gitelman Syndrome (HCC) INTERVENTIONS Medications sodium chloride 0.9 % injection 3 mL (has no administration in time range) sodium chloride 0.9 % injection 10 mL (has no administration in time range) sodium chloride 0.9 % injection 3 mL (has no administration in time range) potassium chloride IVPB 10 mEq (10 mEq intravenous New Bag 02/13/242142) HYDROmorphone injection 0.5 mg (Dilaudid) (has no administration in time range) NaCl 0.9 % bolus 1,000 mL (0 mL intravenous Stopped 02/13/24 1509) acetaminophen tablet 650 mg (TylenoL) (650 mg oral Given 02/13/24 1438) oxyCODONE IR tablet 5 mg (Roxicodone) (5 mg oral Given 02/13/24 1608) NaCl 0.9 % bolus 1,000 mL (1,000 mL intravenous New Bag 02/13/24 1721) oxyCODONE IR tablet 5 mg (Roxicodone) (5 mg oral Given 02/13/24 192) MEDICAL DECISION MAKING ASSESSMENT / PLAN Assessment and Plan Please see previous provider's note for initial impression and plan. In brief patient presents to the emergency department status post fall. She was diagnosed with the inferior pubic rami fracture. She has a history of Gitelman syndrome. She is also found to be hypokalemic, and hypercalcemic. Potassium was replaced in the emergency department. Patient was unable to get up and walk in for this reason she will be transferred to [place] where she normally gets her care. Bed was received, previousprovider's spoke to the hospitalist. There was a delay for transfer secondary to the ambulance was out on another transfer. Patient was given a diet while in the emergency department she was hungry. She was given additional 5 mg of oxycodone for pain.. The following tests were considered but ultimately not performed: none. Escalation of care, including admission/observation, considered: none. DIAGNOSIS Final diagnoses: [Z91.81] History Of Falling [S09.90XA] Injury Head Initial [E87.6] Hypokalemia [E83.52] Hypercalcemia [S32.501A] Fracture Pubis Closed Initial Right (HCC) [S01.111A] Laceration Eyebrow Initial Right [E26.81] Gitelman Syndrome (HCC) DISPOSITION Acute care hospital-transfer [place] Erik Carolina, YUSEF, CAN DOFFER, CLIENT RELATIONS REPRESENTATIVE-C, AGACNP-BC, ENP-C Emergency Medicine Erik Carolina APRN, C.N.P., D.N.P. 02/13/24 2148 * Josee Harris P.A.-Major., P.A., M.S. - 02/13/2024 1:57 PM CDT CHIEF COMPLAINT/REASON FOR VISIT Fall PHYSICAL EXAMINATION Nursing notes reviewed. Initial Vitals Temperature 02/13/24 1538 36.8 ??C Pulse Rate 02/13/24 1345 91 Heart Rate 02/13/24 1345 84 Resp Rate 02/13/24 1401 16 Blood Pressure 02/13/24 1345 104/86 SpO2 02/13/24 1345 100 % Pain Score 02/13/24 1350 9 Vitals: 02/13/24 1915 02/13/24 1915 08/21192802/13/241929 BP: 117/69 119/74 Pulse: 72 71 73 71 Resp: Temp: TempSrc: SpO2: 98% 96% 98% 98% Weight: General: Awake, alert, oriented x3. Well-developed, hydrated and nourished. Nontoxic. Thin. Pale. No apparent distress. Head: Normocephalic. Right eyebrow linear laceration. There is no active bleeding. There is tenderness on palpation without step-offs or crepitus. No obvious foreign body. Eyes: Normal sclerae and conjunctivae, PERRLA, extraocular movements intact ENT: Oropharynx is clear. Nose is symmetric. Nares patent. Moist mucus membranes. Hearing is grossly normal. Neck: Supple, full range of motion, no masses, trachea midline, no lymphadenopathy, no meningeal signs, no Cspine tenderness. Heart: Regular rate and rhythm. S1 and S2 normal. No murmurs, gallops, or rubs. Chest/Lungs: Port in right upper chest. Normal respiratory effort. No labored breathing. No stridor, retractions, or respiratory distress. Lungs clear to auscultation bilaterally. No wheezing, rales,or rhonchi. Abd: Soft, symmetric, nontender, nondistended, normal bowel sounds. No masses or organomegaly. No rebound or guarding. Back: Normal to inspection. No deformity or external signs of trauma. Ext: Warm, well-perfused. No cyanosis, clubbing, or edema. No bruising, swelling or deformity. No malrotation of right lower extremity. There is tenderness on palpation of right posterior and lateralhip with decreased active range of motion of right hip due to pain. There is tenderness on palpation of dorsal right forefoot. There is no step-offs or crepitus on palpation. The patient maintains full range of motion of right ankle, foot, and toes in dorsiflexion and plantar flexion without difficulty. There is no drawer laxity noted of right ankle. Extremities are otherwise unremarkable withoutbony tenderness and with normal range of motion. Unable to assess gait due to right hip pain. Skin: Warm, dry, normal color for ethnicity. No rashes or diaphoresis. Nailbeds pink with no cyanosis or clubbing. Right eyebrow linear laceration without active bleeding. No obvious foreign body. Neuro: Awake, alert. Oriented x 3. Follows simple/complex commands. GCS 15. Cognition normal. Speech clear, tongue function normal. No aphasia or dysarthria. Normal language processing. No facial droop, visual field deficit, gaze deviation, nystagmus or neglect. No CN palsies. No pronator drift. Full and symmetric auto damage adjuster strength. Normal dorsi/plantar flexion of ankles bilaterally. SILT. Patient able to sit upright/ambulate without difficulty. No ataxia sitting upright. No cerebellar signs, [id number], heel/mcneil and CARMEN testing all normal. Unable to assess gait due to right hip pain. Vascular: Peripheral pulses symmetric, normal cap refill. Psych: Pleasant and appropriate. ED Course as of 02/13/241950Feb 13, 2024 1358 EKG shows normal, sinus rhythm, rate 74. LVH with repolarization abnormality. Prolonged QT (QTc 581). There is no significant change when compared to previous. 1410 Met with patient to perform history and physical exam, outline emergency department work up and initial treatment, as well as explain expected time frame. 1451 CBC reveals leukocytosis (WBC 14.0), anemia (Hgb 10.2, previous 9.45 months ago), and PLTs 601. BMP reveals mild hyponatremia (hyponatremia (Na 134), Cr 2.62 (baseline per EMR review, previous 2.99 01/21/24). Magnesium is normal. CK is mildly elevated at 393. IVF both is infusing. Urine test is negative. 1513 The patient has returned from Radiology. She was reassessed and updated on results and plan. [address] Cspine show: 1. No acute intracranial abnormality. 2. Straightening of usual cervical lordosis without evidence of fracture or post traumatic malalignment. 1539 Right foot xrays are negative. 1539 Right hip/pelvis xrays show: There is an acute minimally displaced fracture of the right inferior pubic ramus. These are often associated with fractures of the superior pubic ramus though one is not definitely seen, consider further evaluation with CT. 1548 Lab called with critical potassium (2.0) and calcium (14.0). Will replace potassium per protocol. 1555 The patient was reassessed and updated on results and plan. She reports persistent pain despite Tylenol. We will give her her home dose of oxycodone. She does not think that she will be able to take oral potassium. Will order IV potassium. Awaiting serial troponin. The patient normally is admitted to [facility] in [place]. We will call to initiate transfer after serial troponin is obtained. 1737 Serial troponin is unchanged. Laceration was repaired under local anesthesia. The patient tolerated it well. Additional IV fluids were ordered. We will call [facility] in [place] to coordinate transfer. 1738 Called [facility] and spoke with Mirna. She will look into bed availability and call me back. [address] Quinonez with [facility] in [place] and he accepted the patient for transfer. Mirna with the access center requested that we wait for them to call regarding transport when bed is ready. 1834 The patient was reassessed and updated on results and plan. Awaiting bed availability. 191 The patient was signed out to Erik Carolina DNP, pending transfer to [facility] when bed becomes available. Final Diagnoses: as of 02/13/241950 History Of Falling Injury Head Initial Hypokalemia Hypercalcemia Fracture Pubis Closed Initial Right (HCC) Laceration Eyebrow Initial Right Gitelman Syndrome (HCC) MEDICAL DECISION MAKING: Lorraine Klein is a 33 y.o. female with the following comorbidities affecting her care: Gitelman syndrome, IBS, intestinal obstruction, gastroparesis, chronic abdominal pain, fibromyalgia, iron deficiency anemia, depression, anxiety, hypokalemia, hypomagnesemia, opiate use disorder, prolonged QT, syncope, among other chronic health issues. She is status post appendectomy. She has a port in her right upper chest for blood draws. The patient was brought in through triage by a friend for evaluation of a head injury after unwitnessed presumed fall. The patient states that she went to bed at 10 PM and was feeling her usual self. She awakened at 1045 AM and noted that she had an eyebrow laceration, right hip pain, and right foot pain, however does not recall falling. She states that she awakened in bed, so she was somehow able to get back into bed. She denies any headache, midline neck pain, dizziness/lightheadedness, vision/speech changes, facial droop, paresthesias or focal weakness of extremities, vomiting, seizure activity, or confusion. The patient states that her bed was wet when she awakened. She did not bite her tongue. She has no seizure disorder. She has been unable to bear full weight on her right leg due to hip pain. She denies any fevers, chills, sweats, cough/URI symptoms, chest pain, shortness of breath, abdominal pain, diarrhea, constipation, dysuria, urinary frequency/urgency, change in taste/smell, rash, or other concerning symptoms. No treatments tried for symptom relief. She has been eating and drinking normally. No recent illness, ill contacts, recent tr alayna or known/suspected COVID-19 exposure. Last tetanus was 2020. Per EMR review, the patient was recently admitted to the hospital 01/21/2024 for possible seizure activity. She described 2 days of nausea and vomiting with poor oral intake. She reported having a ???shaking episode?? that morning. She was shaking EN route per EMS, but was responsive the entire time. She was treated with IV fluids and potassium replacement. She was discharged home with outpatientfollow-up advised. On ER arrival, the patient is well appearing, nontoxic with low normal blood pressure and otherwisenormal vitals. Exam reveals a right eyebrow linear laceration with no active bleeding. There is tenderness on palpation without step-offs or crepitus. No obvious foreign body. No malrotation of rightlower extremity. There is tenderness on palpation of right posterior and lateral hip with decreasedactive range of motion of right hip due to pain. There is tenderness on palpation of dorsal right forefoot. There is no step-offs or crepitus on palpation. The patient maintains full range of motion of right ankle, foot, and toes in dorsiflexion and plantar flexion without difficulty. There is no drawer laxity noted of right ankle. Extremities are otherwise unremarkable. Neurologic exam is normalat this time. Differential diagnoses: Hypoglycemia, anemia, electrolyte abnormality, hypoxia, arrhythmia, AK, heart failure, structural heart disease (e.g., valvular stenosis, hypertrophic cardiomyopathy), PE, seizure, vertigo, intracranial mass/bleed, dehydration, medication reaction, CVA, TIA, PE, vasovagal, or thostasis, carotid hypersensitivity, psychogenic, among others. ED course/interventions: Met with patient upon ER arrival. IV was started by RN. IV fluid bolus wasordered. An EKG was ordered and showed normal, sinus rhythm, rate 74. LVH with repolarization abnormality. Prolonged QT (QTc 581). There is no significant change when compared to previous. Labs were ordered, including CBC, BMP, magnesium, CK, urine test, cardiac enzymes. Abnormal labs revealed leukocytosis (WBC 14.0), anemia (Hgb 10.2, previous 9.45 months ago), and PLTs 601. BMP reveals mild hyponatremia (hyponatremia (Na 134), Cr 2.62 (baseline per EMR review, previous 2.99 01/21/24), CK is mildly elevated at 393. Magnesium is normal. Urine test is negative. Cardiac enzymes are unchanged x2. CT head and Spine showed no acute findings. Right foot xrays shows no acute findings. Right hip xray shows an acute minimally displaced fracture of the right inferior pubic ramus.These are often associated with fractures of the superior pubic ramus though one is not definitely seen, consider further evaluation with CT. Potassium was replaced per protocol. Additional IVF bolus was given. Tylenol and Oxycodone were ordered for pain relief. Laceration was repaired under local anesthesia. The patient tolerated it well.Considered CXR, however the patient has had no fever, cough/URI symptoms, or other symptoms concerning for pneumonia. Considered PE workup, however the patient has no DVT/PE risk factors or exam findings, is not tachycardic or hypoxic, and PERC score is zero. Considered UA, however the patient has had no urinary symptoms, so UTI was felt less likely. Considered abdominal imaging, however the patient has no abdominal pain, nausea, vomiting, or other symptoms worrisome for intraabdominal pathology . Considered additional hip imaging, however there was no definitivie fracture of superior pubic ramus frqacture identified on xray, so emergent CT imaging was not felt warranted. This was discussed with Dr. Quinonez ([facility] Hospitalist) who was in agreement). Considered Orthopedic fracture, however the management of an inferior pubic ramus fracture is conservative/nonoperative and Orthopedic consult was not felt warranted for emergent management. The patient is normally admitted to [facility] in [place] where she receives her care and requested transfer to [place] for admission. The patient was accepted by Dr. Quinonez (Hospitalist) who is familiar with patient and agreed with plan for transfer for admission. The patient was signed out to Erik Carolina DNP, pending transfer when bed is ready. The patient remained comfortable and hemodynamically stable throughout her ED stay. -- History was obtained from: the patient and EMR review. -- Nursing documentation and prior inpatient and outpatient records were reviewed in the electronicmedical record to facilitate decision making regarding patient care. -- I personally reviewed by visualization, independent interpretation, and discussed with the patient the results of labs, imaging studies, and EKG as noted above. -- Consultation: Dr. Quinonez (Hospitalist at [facility]) -- Prescription management: No new prescriptions or changes to existing home medications. Social Determinants of Health Transportation Needs: No Transportation Needs (04/06/2023) Re[facility] from [facility], [facility] Transportation Needs Lack of Transportation (Medical): 1 Housing Stability: Low Risk (04/06/2023) [facility], [facility] Housing Stability Unable to Pay for Housing in the Last Year: 1 Food Insecurity: No Food Insecurity (10/22/2023) [facility] Food Insecurity Worried About Running Out of Food in the Last Year: 1 Recent Concern: Food Insecurity - Food Insecurity Present (09/29/2023) Received from [facility] Food Insecurity Worried About Running Out of Food in the Last Year: 2 Utilities: Not on file Intimate Partner Violence: Not on file Physical Activity: Sufficiently Active (04/07/2021) Exercise Vital Sign Days of Exercise per Week: 6 days Minutes of Exercise per Session: 90 min Dental: Low Risk (07/05/2022) Dental Dental: Regular Dentist: Yes Nutrition: Unknown (04/07/2021) Nutrition Nutrition: Servings of Fruits/Vegetables per Day: 4-5 Recent Concern: Nutrition - Medium Risk (04/07/2021) Nutrition Nutrition: EVOO Fat Source: No Nutrition: Servings of Fruits/Vegetables per Day: 4-5 Employment: High Risk (04/07/2021) Employment Employment Status: Temporarily disabled PROBLEMS ADDRESSED THIS VISIT: 1. History Of Falling 2. Injury Head Initial 3. Hypokalemia 4. Hypercalcemia 5. Fracture Pubis Closed Initial Right (HCC) 6. Laceration Eyebrow Initial Right 7. Gitelman Syndrome (HCC) Josee Harris P.A.-C., PManjit, M.S. 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 [address] [place] [phone] documented as of this encounter Procedures Procedure [...] U (LAB) STAT 02/13/2024 2:38 PM CDT TROPONIN T, BASELINE, 5TH GEN, P STAT 02/13/2024 2:30 PM CDT CBC WITH DIFFERENTIAL, B STAT 02/13/2024 2:30 PM CDT MAGNESIUM, S STAT 02/13/2024 2:30 PM CDT CREATINE KINASE (CK), S STAT 02/13/2024 2:30 PM CDT BASIC METABOLIC PANEL, S/P STAT 02/13/2024 2:30 PM CDT ECG STAT 02/13/2024 1:52 PM CDT documented in this encounter Results * Laceration Repair (02/13/2024 7:52 PM [...] Critical Care Performed by: Josee Harris P.A.-C., P.A., M.S. 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 LAB BLOOD TROPO ENRIQUE Final Result [facility] [address] [place] [id number], [facility] CNFL [facility] [place] [address] * DX Foot Right 3+ Views (02/13/2024 [...] VIEWS IMPRESSION: Negative right foot radiographs. Josee Lux.A.-C., P.A., M.S. IMG DIAGNOSTIC IMAGING PROCEDURES Final [...] evaluation withCT. Josee Harris P.A.-C., P.A., M.S. IMG DIAGNOSTIC [...] traumatic malalignment. Josee Harris P.A.-C., P.A., M.S. [facility] CT PROCEDUR ES Final Result * Test, POCT, Urine (Lab) (02/13/2024 2:38 PM CDT) Test, POCT, U Negative 02/13/2024 2:49 PM CDT CNFL Urine (Urine, Midstream) 02/13/2024 2:38 PM CDT 02/13/2024 2:41 PM CDT Josee Harris P.A.-C., P.A., M.S. LAB POCT ORDERA BLES - DEVICE Final Result Performing Organization Address [facility]/[place] [address], [place] [address] * Magnesium (02/13/2024 2:30 PM CDT) Magnesium, P 2.3 1.7 - 2.3 mg/dL 02/13/2024 2:50 PM CDT CNFL Blood (Blood, Venous) 02/13/2024 2:30 PM CDT 02/13/2024 2:32 PM CDT Josee Harris P.A.-C., P.A., M.S. LAB BLOOD ADD-O N Final Result Performing Organization Address City/[facility]/[place] [address], [facility] [place] [address] * (ABNORMAL) Troponin T, Baseline with 2 Hour/6 Hour Reflex Biomarker Panel (02/13/2024 2:30 PM CDT) Troponin T, Baseline, 5th gen 12(H) <=10 ng/L 02/13/2024 3:01 PM CDT CNFL Blood (Blood, Venous) 02/13/2024 2:30 PM CDT 02/13/2024 2:32 PM CDT Josee Harris P.A.-C., P.A., M.S. LAB BLOOD TROPO ENRIQUE Final Result Performing Organization Address [facility]/[place] [address], [place] [address] * (ABNORMAL) CK (Creatine Kinase) (02/13/2024 2:30 PM CDT) Creatine Kinase, P 393(H) 26 - 192 U/L 02/13/2024 2:50 PM CDT CNFL Blood (Blood, Venous) 02/13/2024 2:30 PM CDT 02/13/2024 2:32 PM CDT Josee Harris P.A.-C., P.A., M.S. LAB BLOOD ADD-O N Final Result Performing Organization Address [facility]/[place] [address], [facility] [place] [address] * (ABNORMAL) Basic Metabolic Panel (02/13/2024 2:30 [...] ADD-O N Final Result Performing Organization Address City/State/[facility] Co de Phone Number [facility] [address] [place] [address], [facility] CNFL [facility] [address] * (ABNORMAL) CBC with Differential, Blood (02/13/2024 [...] ADD-O N Final Result Performing Organization Address City/State/[facility] Co de Phone Number [facility] [address] [place] [address], 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 Administered Medications Inactive Administered Medications - up to 3 most recent administrations Medication Order MAR Action Action Date Dose Rate Site acetaminophen tablet 650 mg (TylenoL) 650 mg, oral, Once, On Sun02/13/24 at 1420, For 1 dose Given 02/13/2024 2:38 PM CDT 650 mg HYDROmorphone injection 0.5 mg (Dilaudid) 0.5 mg, intravenous, Once, On Sun02/13/24 at 2144, For 1 dose Given 02/13/2024 9:47 PM CDT 0.5 mg NaCl 0.9 % bolus 1,000 mL 1,000 mL, intravenous, at 2,000 mL/hr, Administer over 30 Minutes, Once, On Sun02/13/24 at 1420, For 1 dose New Bag 02/13/2024 2:39 PM CDT 1,000 mL 2000 mL/hr NaCl 0.9 % bolus 1,000 mL 1,000 mL, intravenous, at 1,000 mL/hr, Administer over 1 Hours, Once, On Sun02/13/24 at 1721, For 1 dose New Bag 02/13/2024 5:21 PM CDT 1,000 mL 100 0 mL/hr oxyCODONE IR tablet 5 mg (Roxicodone) 5 mg, oral, Once, On Sun02/13/24 at 1556, For 1 dose Given 02/13/2024 4:08 PM CDT 5 mg oxyCODONE IR tablet 5 mg (Roxicodone) 5 mg, oral, Once, On Sun02/13/24 at 1912, For 1 dose Given 02/13/2024 7:24 PM CDT 5 mg potassium chloride IVPB 10 mEq 10 mEq, intravenous, at 100 mL/hr, Administer over 60 Minutes, Every 1 hour, First dose on Sun02/13/24 at 1556, For 8 doses, For K<3 mEq/L - give total of 80 mEq, Monitor the following for replacement: Potassium, Replace Potassium per: Standard Schedule New Bag 02/13/2024 9:43 PM CDT 10 mEq 100 mL/hr New Bag 02/13/2024 8:29 PM CDT 10 mEq 100 mL/hr New Bag 02/13/2024 7:25 PM CDT 10 mEq 100 mL/hr sodium chloride 0.9 % injection 10 mL 10 mL, intravenous, As needed, line care, Starting on Sun02/13/24 at 1416, Peripheral Intravenous Catheter and Rapid Infusion Catheter, prior to blood sampling, post blood transfusion or post blood sampling sodium chloride 0.9 % injection 3 mL 3 mL, intravenous, As needed, line care, Starting on Sun02/13/24 at 1416, Prior to and following infusion and between multiple consecutive infusions: sodium chloride 0.9 % injection sodium chloride 0.9 % injection 3 mL 3 mL, intravenous, Every 12 hours scheduled, First dose on Sun02/13/24 at 2100, Peripheral Intravenous Catheter and Rapid Infusion Catheter, when no infusion to maintain patency documented in this encounter Active and Recently Administered Medications Times are shown in CDT. Scheduled Medication Order 02/11/2024 02/12/2024 02/13/2024 acetaminophen tablet 650 mg (TylenoL) (COMPLETED) 650 mg, oral, Once, On Sun02/13/24 at 1420, For 1 dose 1438 (Given - Provid er: Vicky Tony R.N.) HYDROmorphone injection 0.5 mg (Dilaudid) (COMPLETED) 0.5 mg, intravenous, Once, On Sun02/13/24 at 2144, For 1 dose 2147 (Given - Provid er: Lety PinoN.) NaCl 0.9 % bolus 1,000 mL (COMPLETED) 1,000 mL, intravenous, at 2,000 mL/hr, Administer over 30 Minutes, Once, On Sun02/13/24 at 1420, For 1 dose 1439 (New Bag - Prov ider: Theo Iraheta.N.)1509 (Stopped - Provider: Theo Iraheta.N.) NaCl 0.9 % bolus 1,000 mL (COMPLETED) 1,000 mL, intravenous, at 1,000 mL/hr, Administer over 1 Hours, Once, On Sun02/13/24 at 1721, For 1 dose 1721 (New Bag - Prov ider: Theo Iraheta.N.)2149 (Stopped - Provider: Sanchez Conroy R.N.) oxyCODONE IR tablet 5 mg (Roxicodone) (COMPLETED) 5 mg, oral, Once, On Sun02/13/24 at 1556, For 1 dose 1608 (Given - Provid er: Vicky Tony R.N.) oxyCODONE IR tablet 5 mg (Roxicodone) (COMPLETED) 5 mg, oral, Once, On Sun02/13/24 at 1912, For 1 dose 1924 (Given - Provid er: Bonifacio Schwarz RAnnelN.) potassium chloride IVPB 10 mEq 10 mEq, intravenous, at 100 mL/hr, Administer over 60 Minutes, Every 1 hour, First dose on Sun02/13/24 at 1556, For 8 doses, For K<3 mEq/L - give total of 80 mEq, Monitor the following for replacement: Potassium, Replace Potassium per: Standard Schedule 1608 (New Bag - Prov ider: Vicky Tony RAnnelN.)1655 (Due: Stopped - Provider: Theo Iraheta.N.)1704 (New Bag - Provider: Nereyda Sharma R.N.)1755 (Due: Stopped - Provider: Lety HernandezN.)1820 (New Bag - Provider: Theo Iraheta.N.)1856 (Due)1920 (Stopped - Provider: Vicky Tony R.N.)1924 (New Bag - Provider: Bonifacio Schwarz R.N.)2023 (Stopped - Provider: Bonifacio Schwarz R.N.)2028 (New Bag - Provider: Bonifacio Schwarz R.N.)2128 (Due: Stopped - Provider: Bonifacio Schwarz R.N.)2142 (New Bag - Provider: Sanchez Conroy R.N.)2242 (Due: Stopped - Provider: Sanchez Conroy R.N.) sodium chloride 0.9 % injection 3 mL 3 mL, intravenous, Every 12 hours scheduled, First dose on Sun02/13/24 at 2100, Peripheral Intravenous Catheter and Rapid Infusion Catheter, when no infusion to maintain patency 2100 (Due) PRN Medication Order 02/11/2024 02/12/2024 02/13/2024 sodium chloride 0.9 % injection 10 mL 10 mL, intravenous, As needed, line care, Starting on Sun02/13/24 at 1416, Peripheral Intravenous Catheter and Rapid Infusion Catheter, prior to blood sampling, post blood transfusion or post blood sampling sodium chloride 0.9 % injection 3 mL 3 mL, intravenous, As needed, line care, Starting on Sun02/13/24 at 1416, Prior to and following infusion and between multiple consecutive infusions: sodium chloride 0.9 % injection documented in this encounter Additional Health Concerns Assessment Noted Time PHQ-9 Depression Total Score: 3 01/26/20 15 9:58 AM CDT documented as of this encounter Care Teams Wool Carder Relationship Specialty Start Date End Date Elsewhere, Pcp PCP - General Internal Medicine 09/03/19 documented as of this encounter
--- OUTSIDE RECORDS SUMMARY | 2024-04-09 16:55 | XMS_ITS | Encounter Summary ---
Author Organization [facility] Address [address] [place] [address] Care Team Providers Care Supervisor Food Checkers And Cashiers Name Role Phone Elsewhere, Pcp Primary Care Provider Unavailabl e Reason for Referral * Outpatient (Routine) - Authorized Specialty Diagnoses / Procedures Referred By Miguelangel aleman Referred To Contact Diagnoses Gitelman Syndrome (HCC) Janine Roberts M.D., Ph.D. [address] [place] [address] Phone: tel: fax: [facility] Referral ID Status Reason Start Date Expiration Date V isits Requested Visits Authorized [id number] Authorized 04/07/2024 10/07/2025 1 1 Electronically signed by [facility], MD Tessa at 04/07/2024 11:20 AM CDT Encounter Details Date Type Department Care Team (Late st Contact Info) Description 04/07/2024 Orders Only Department of Medical Genetics in [place], [place] [address] [place] [phone] [facility], ProviderMD Gitelman Syndrome (HCC) Social History Tobacco Use Types Packs/Day Years [...] week 04/07/2021 How often do you attend [facility] or faith services? Patient declined 04/07/2021 Do you belong to any clubs o r organizations such as amish groups, unions, fraternal or athletic groups, or [...] Average Number of Drinks Not on file Frequency of Binge Drinking Not on file 03/25 Overall Financial Resource Strain (CARDIA) Answe r Date Recorded How hard is it for you to pa y for the very basics like food, housing, medical care, and heating? Somewhat hard 04/07/2021 [facility] Occupat ional Health - Occupational Stress [...] place to sleep or slept in a half-way (including now)? 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 [address] [place] [phone] Josselyn Membreno 05/06/2024 9:00 AM RESTRIKE HAMMER OPERATOR Comprehensive Visit Department of Medical Genetics in [place], [place] [address] [place] [phone] Janine Roberts M.D., Ph.D. [address] [place] [phone] Scheduled Referrals Name Type Priority Associated Diagnoses Orde r Schedule Clinical Genomics video or phone visit (clinic) Outpatient Referral Routine Gitelman Syndrome (HCC) Expected: 04/07/2024, Expires: 07/08/2025 documented as of this encounter Visit Diagnoses Diagnosis Gitelman Syndrome (HCC) documented in this encounter Additional Health Concerns Assessment Noted Time PHQ-9 Depression Total Score: 3 01/26/20 15 9:58 AM CDT documented as of this encounter Care Teams Supervisor Food Checkers And Cashiers Relationship Specialty Start Date End Date Elsewhere, Pcp PCP - General Internal Medicine 09/03/19 documented as of this encounter
--- OUTSIDE RECORDS SUMMARY | 2024-04-09 16:55 | XMS_ITS | Encounter Summary ---
Author Organization [facility] Address [address] [place] [address] Care Team Providers Care Grain Buyer Name Role Phone Elsewhere, Pcp Primary Care Provider Unavailabl e Encounter Details Date Type Department Care Team (Late st Contact Info) Description 10/11/2007 Historical Ophthalmology [facility] Ezequiel Chaney M.D. 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 Asked to see for visual field testing. IMPRESSION / REPORT / PLAN Consult requested by: Aly Villarreal [id number] #1 RAthke's cleft cyst #2 Visual field report, Normal visual field both eyes. DIAGNOSIS #1 RAthke's cleft cyst #2 Visual field report, Normal visual field both eyes. CD Reports - EYEGEN Id: [id number] Status: Fnl documented in this encounter Plan of Treatment Upcoming Encounters Date Type Department Care Team (Late st Contact Info) Description 04/28/2024 2:30 PM MEDICAL MASSAGE THERAPIST Clinical Support Department of Medical Genetics in [place], [place] [address] [place] [phone] Janine Roberts M.D., Ph.D. [address] [place] [phone] TemiJosselyn Theo 05/06/2024 9:00 AM MEDICAL MASSAGE THERAPIST Comprehensive Visit Department of Medical Genetics in [place], [place] [address] [place] [phone] Janine Roberts M.D., Ph.D. [address] [place] [phone] documented as of this encounter Visit Diagnoses Not on filedocumented in this encounter Additional Health Concerns Infection Onset Date Last Indicated Resolved Time COVID19 Pending 01/06/2021 01/06/2021 01/06/2021 1 1:37 AM CDT COVID19 Pending 01/06/2021 01/06/2021 01/06/2021 1 2:10 PM CDT COVID19 Pending 09/24/2021 09/24/2021 09/24/2021 3 :25 PM CDT COVID19 Pending 09/24/2021 09/24/2021 09/24/2021 3 :50 PM CDT COVID19 Pending 11/06/2021 11/06/2021 11/06/2021 8 :20 PM CDT COVID19 Pending 08/25/2023 08/25/2023 08/25/2023 1 1:39 AM MEDICAL MASSAGE THERAPIST Assessment Noted Time PHQ-9 Depression Total Score: 0 05/10/20 07 12:00 PM MEDICAL MASSAGE THERAPIST documented as of this encounter Care Teams Grain Buyer Relationship Specialty Start Date End Date Elsewhere, Pcp PCP - General Internal Medicine 09/03/19 documented as of this encounter
--- OUTSIDE RECORDS SUMMARY | 2024-04-09 16:55 | XMS_ITS | Continuity of Care Document ---
Author Organization [facility] ke[facility]e Address [address] [place] [phone] Phone Care Team Providers Care Box Press Operator Name Role Phone Will MD FIERRO, Wayne Unavailable Unavailabl e Advance Directives Directive Yes / No Effective Date File Name No Information Encounters Encounter Description Practice Location Reason(s) For Visit Diagnoses Date Provider Providers Copied on Encounter [facility], [address] [place] [address] [place], [place], [id number], [place] tel:[phone] [facility] Gayle No Information Will Wayne. [address] [place], [place], [id number], [place]. tel:[phone] Family History Family Member Type Diagnosis Age At Onset No Information Payers Payer name Insurance type Covered libertarian [...]
[2024-04-09 17:04] LABS: Basophils Absolute Auto 0.04 K/uL (0.00-0.30); Basophils Percent Auto 0.6 % (0.0-3.0); Eosinophils Absolute Auto 0.17 K/uL (0.00-0.50); Eosinophils Percent Auto 2.5 % (0.0-7.0); Hemoglobin* 9.3 gm/dL (12.0-16.0); Immature Granulocytes Abs Auto 0.01 K/uL (0.00-0.30); Immature Granulocytes Pct Auto 0.1 %; Lymphocytes Absolute Auto 2.17 K/uL (0.90-2.90); Lymphocytes Percent Auto 32.1 % (20-44); Mean Corpuscular HGB Conc 33 gm/dL (32-36); Mean Corpuscular Hemoglobin 28 pg (26-34); Mean Corpuscular Volume 84 fL (80-100); Monocytes Percent Auto 8.3 % (0.0-11.0); Neutrophils Absolute Auto 3.82 K/uL (1.7-7.0); Neutrophils Percent Auto 56.4 % (42.0-72.0); Platelet Count* 356 K/uL (140-440); RDW Coefficient of Variation % 13.4 % (11.5-15.5); Red Blood Count 3.34 m/uL (4.00-5.20); Slide Review Reflex No; White Blood Count* 6.77 K/uL (4.50-11.00)
[2024-04-09] MEDS: 0.9 % SODIUM CHLORIDE 500 ML 500 ML IV (17:13)
[2024-04-09 17:16] LABS: Chloride* 77 mmol/L (96-114); Sodium* 132 mmol/L (135-149)
--- NOTE | 2024-04-09 17:16 | CRLHL7_ITS ---
For Patients: As a result of the Century Cures Act, medical imaging exams and procedure reports are released immediately into your electronic medical record. You may view this report before your referring provider. If you have questions, please contact your health care provider. INDICATION: Fall. History of pubic ramus fracture 7 weeks ago. COMPARISON: 04/01/2017 CT pelvis TECHNIQUE: CT of the pelvis without intravenous contrast. FINDINGS: Subacute appearing comminuted mildly displaced fractures of the right inferior pubic ramus and right ischiopubic ramus with a tiny amount of associated callus formation. The hip joint spaces are grossly preserved. Normal muscular bulk. Large colonic stool volume. IMPRESSION: 1. Subacute appearing comminuted mildly displaced fractures of the right inferior pubic ramus and right ischiopubic ramus. 2. Large colonic stool volume. Please note that all CT scans at this facility use dose modulation, iterative reconstruction, and/or weight-based dosing when appropriate to reduce radiation dose to as low as reasonably achievable. Dictated by Miguel Dumont MD @ 04/09/2024 6:27:24 PM (Electronically Signed)
[2024-04-09 17:19] LABS: Creatinine* 2.7 mg/dL (0.5-1.5); Est. Creatinine Clearance* 22.58; Estimated Glomerular Filt Rate 23 ml/min
[2024-04-09 17:20] LABS: Blood Urea Nitrogen* 57 mg/dL (5-24); Calcium* 11.1 mg/dL (8.4-10.6); Glucose* 88 mg/dL (60-115)
[2024-04-09 17:26] LABS: Potassium* 2.9 mmol/L (3.6-5.1)
[2024-04-09 17:28] LABS: Anion Gap 14 mEq/L (7-15); Carbon Dioxide* 41 mmol/L (20-32)
[2024-04-09] MEDS: KETOROLAC 15 MG/ML inj IVP (17:47)
[2024-04-09] MEDS: POTASSIUM CHLORIDE 10 MEQ CAPSULE ER 40 MEQ PO (17:57)
[2024-04-09] MEDS: HYDROmorphone 0.5 mg/0.5 ml inj IVP (18:45)
== END 2024-04-09 19:43 | disposition home or self-care (01) ==
PROVIDERS: Emergency Provider Emergency Medicine Emergency Medical Services
DX: N15.8 Other specified renal tubulo-interstitial diseases (principal); R55 Syncope and collapse
CPT/HCPCS: 36415; 72192; 80048; 85025; 96361; 96374; 96375; 99284; A9270; J1171; J1885; J7030

== ENCOUNTER 2024-05-06 11:29 | Observation (INO) | payer MEDICAID, SELFPAY ==
[2024-05-06] VITALS (20 sets, daily range): BP systolic 98–122; BP diastolic 68–87; PULSE 75–88; RESP 16–18; TEMP 36.1–37; O2SAT 90–100; BMI 16.6; BMI 16.3; BMI 16.4
--- NOTE | 2024-05-06 12:11 | ED_ITS ---
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 She was 1st diagnosed when she was 26. At that time she had care through the [facility] system at [facility] in [place]. It sounds like she has had episodes where she gets very dehydrated and gets electrolyte disturbances because of the salt wasting feature of her Gitelman syndrome. She does her best to manage this. She is on spironolactone. She tries to drink plenty of fluids and stay hydrated. Despite that, sometime she gets dehydrated. When that happens she will often get dizzy and shaky and lightheaded. She had an episode in January where she apparently had a syncopal event and fell. She fractured her right side of her pelvis. Apparently she was hospitalized at the [facility] in [place]. She says her doctors presume she probably had a cardiac arrhythmia leading to the syncope, leading to the pelvic fracture. She did not require an operation. She apparently has been set up to see a electrician's helper and will be seeing them in a month or 2. She has not had any palpitations since then. She has a kidney specialist through the [facility]. She notes that she has had a little bit of diarrhea for about a week or so. She has also noted a problem where she has had some urgency to urinate but sometimes she has urinary hesitancy and is not able to empty her bladder. She has not had any dysuria. No flank pain. No fever. She began to feel a little bit shaky and lightheaded for the past couple of days over the weekend, since Sunday but was trying to push fluids and get more hydrated. However she started to get worse again on Sunday and she felt pretty lightheaded and shaky all day on Sunday. She had gotten up to go to the bathroom to urinate last night. She says she got very shaky in the bathroom and then was not able to get on the toilet. She fell to the ground and lost consciousness. She recalls waking up on the bathroom floor. She think she probably hit the edge of the bathtub and has had a lot of pain in her right lateral rib cage since then. Also some lesser pain in her left pelvis. She has continued to be very lightheaded and shaky. She was able to crawl back to bed and was trying to push fluids overnight. Today, she told her aunt how she was feeling and her aunt made her come right here to the ER. In addition to rib pain and left pelvic pain she has a sore neck. She is mildly nauseous. No headache. Her vision is a bit blurry. She is having trouble with her memory. Her nurse also works at [facility] and recalls the patient has been there a couple of times recently, during the month of March and was hospitalized 2 times. Been reviewed the patient's [facility] medical record through [facility] Past medical history includes: Gitelman syndrome Hypokalemia Hypermagnesemia Metabolic alkalosis Hypercalcemia Iron deficiency anemia Right inferior pubic ramus fracture Situational mixed anxiety and depression Opiate abuse Chronic kidney disease Prolonged QT Medication list includes Acetaminophen Calcium carbonate Ferrous sulfate Gabapentin Hydroxy seen Tramadol Robaxin Potassium chloride Magnesium oxide Spironolactone 50 mg b.i.d. It looks like she called the [facility] clinic today and was advised to come to the ER There is a scanned history and physical from an inpatient visit at [facility] on April 23, but due to a glitch in the computer system I am not able to view that scanned document. When asked the patient about this she does say that she was at the ER at [facility] a couple of times in March because of dehydration, electrolyte disturbances, and feeling dizziness. However she was not as dizzy those times she is this time. The patient's nurse was able to access the patient's [facility] records through [employer] and was able to print them out for me. She was in the [facility] ER on 04/23. She had been found in the parking lot outside of her nephrology clinic. Labs showed white blood cell count 8.4, hemoglobin 10.7, platelets 493. Sodium 134, potassium 3.1, chloride 74 bicarb 48, BUN 45.9, creatinine 2.8. Magnesium 2.4. X-ray showed inferior pubic ramus fracture which was previously known. Treated with IV saline and IV Dilaudid in the ER. According to the records her creatinine fluctuates between 1.3 and 2.8. At that visit was up to 2.8. They were suspecting probably pre renal. However there are some discrepancies because according to the notes from her internet merchant she had reported drinking up to 200 oz of fluid. 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 According to the ER notes nephrology has recommended further testing to confirm the diagnosis. During previous hospitalization they had recommended a 24 hour urine collection but the patient left the hospital against medical advice. Also according to the hospitalist notes, the patient was requesting IV Dilaudid for her hip pain. The patient started crying when they were trying to discussed options for pain control. Also the notes mention that she has a very low BMI with BMI of 16.6. According to the notes the patient needed to discharge urgently from the hospital because her cat was having an emergent medical problem. Related Data Home Medications ?Medication ?Instructions ?Recorded ?Confirmed albuterol sulfate 90 mcg/actuation 2 inh inhalation Q4H PRN 04/09/24 05/06/24 aerosol inhaler ferrous sulfate 325 mg (65 mg 325 mg PO TID 04/09/24 05/06/24 iron) tablet (iron) gabapentin 100 mg capsule 100 mg PO HS 04/09/24 05/06/24 gabapentin 300 mg capsule 300 mg PO TID 04/09/24 05/06/24 hydroxyzine HCl 25 mg tablet 25 - 50 mg PO Q6H PRN 04/09/24 05/06/24 potassium chloride 20 mEq 80 meq PO TID 04/09/24 05/06/24 tablet,extended release(part/cryst) (Klor-Con M) calcium carbonate (Sd-Gest 200 - 400 mg PO QID PRN 05/06/24 05/06/24 Antacid) magnesium oxide 400 mg PO TID 05/06/24 05/06/24 methocarbamol 750 mg tablet 750 mg PO Q6H PRN 05/06/24 05/06/24 multivitamin (Multiple Vitamins 1 tab PO DAILY 05/06/24 05/06/24 tablet) sennosides 8.6 mg-docusate sodium 1 tab-cap PO BID PRN 05/06/24 05/06/24 50 mg tablet (Senna Plus) spironolactone 50 mg tablet 50 mg PO BID 05/06/24 05/06/24 tramadol 50 mg tablet 50 mg PO BID 05/06/24 05/06/24 Allergies Allergy/AdvReac Type Severity Reaction Status Date / Time duloxetine (From Cymbalta) Allergy Severe Hypotension Verified 04/09/24 15:26 IV Iron AdvReac Intermediate swelling Uncoded 04/09/24 15:26 of arm [facility] Medical History (Updated 05/06/24 @ 21:57 by Maykel Perez MD) Malnutrition ?E46 - Unspecified protein-calorie malnutrition (ICD-10) Normal esophagogastroduodenoscopy (EGD) ?Z01.89 - Encounter for other specified special examinations (ICD-10) Depression ?F32.A - Depression, unspecified (ICD-10) Prolonged QT interval ?R94.31 - Abnormal electrocardiogram [ECG] [EKG] (ICD-10) Chronic pain ?G89.29 - Other chronic pain (ICD-10) Anxiety ?F41.9 - Anxiety disorder, unspecified (ICD-10) Fibromyalgia ?M79.7 - Fibromyalgia (ICD-10) Chronic iron deficiency anemia ?D50.9 - Iron deficiency anemia, unspecified (ICD-10) Opioid abuse ?F11.10 - Opioid abuse, uncomplicated (ICD-10) [id number] kidney injury ?N17.9 - Acute kidney failure, unspecified (ICD-10) ?N18.9 - Chronic kidney disease, unspecified (ICD-10) Syncope ?R55 - Syncope and collapse (ICD-10) Osteoporosis ?M81.0 - Age-related osteoporosis without current pathological fracture (ICD- 10) Hypokalemia ?E87.6 - Hypokalemia (ICD-10) Bulimia ?F50.20 - Bulimia nervosa, unspecified (ICD-10) Gitelman syndrome ?N15.8 - Other specified renal tubulo-interstitial diseases (ICD-10) Surgical History (Updated 05/06/24 @ 21:53 by Maykel Perez MD) History of removal of Port-a-Cath ?Z98.890 - Other specified postprocedural states (ICD-10) History of appendectomy ?Z90.49 - Acquired absence of other specified parts of digestive tract (ICD- 10) Social History (Updated 05/06/24 @ 21:54 by Maykel Perez MD) Narrative: She lives alone in [place]. 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 She does not smoke. She does not drink. She does not use recreational drugs including cannabis What is your current living situation?: I presently have a place to live Problems where you live: no known problems Problems where you live details: N/A In the past 12 months, utilities in danger of being shut off: no In the past 12 mos, have been you worried that your food would run out before you had money to buy more?: never true In the past 12 mos, the food you bought just didn't last and you didn't have money to buy more?: never true Highest level of school completed/degree received: Bachelor's degree Smoking Status: Never smoker How often do you have a drink containing alcohol: never AUDIT-C Alcohol total score: 0 Non-prescribed substance use: denies use How often does anyone, including family, friends and others, physically hurt you : never How often does anyone, including family, friends and others, insult or talk down to you: never How often does anyone, including family, friends and others, threaten you with harm: never How often does anyone, including family, friends and others, scream or curse at you: never Exam Narrative: Exam Narrative: Constitutional: Appears well-developed and well-nourished. Alert. She has a very quiet voice and is a somewhat halting historian. She says she is having trouble concentrating. Her history is often non chronological.. Non toxic. HENT: Head: Atraumatic. No depressed skull fracture, Raccoon Eyes, Goldman's sign, or hemotympanum. Face normal. TMs normal Nose: Nose normal. Mouth/Throat: Oral mucosa is clear and moist. Mucous membranes are not desiccated or cracked. no trismus. Pharynx normal. Tonsils symmetric. No tonsillar enlargement, erythema, or exudate. Eyes: Conjunctivae normal. EOM normal. Pupils equal, round, and reactive to light. No scleral icterus. Neck: Normal range of motion. Neck supple. No tracheal deviation present. No midline step-off. Cardiovascular: Normal rate, regular rhythm. No gallop. No friction rub. No murmur heard. Symmetric radial artery pulses Pulmonary/Chest: Effort normal. No stridor. No respiratory distress. No wheezes. No rales. No rhonchi . Marked right anterior and lateral inferior rib tenderness. No crepitus. Abdominal: Soft. Bowel sounds normal. No distension. No mass. Mild right upper quadrant tenderness. No rebound. No guarding. Musculoskeletal: RUE: Normal range of motion. No tenderness. No deformity LUE: Normal range of motion. No tenderness. No deformity RLE: Normal range of motion. No edema. No tenderness. No deformity LLE: Normal range of motion. No edema. No tenderness. No deformity Neurological: Alert and oriented to person, place, and time. Normal strength. CN II-VII intact. No sensory deficit. GCS eye subscore is 4. GCS verbal subscore is 5. GCS motor subscore is 6. Normal coordination Skin: Skin is warm and dry. No rash noted. No pallor. Normal capillary refill. Psychiatric: Normal mood. Somewhat flat affect. Const: Vital Signs, click to edit/add: Vital Signs - 24 hr 05/06/24 11:55 05/06/24 12:53 05/06/24 12:55 Temperature 97.0 F L Pulse Rate 88 87 Pulse Rate [Right Pulse Oximeter] 76 Respiratory Rate 18 Blood Pressure 117/83 Blood Pressure [Le ft Upper Arm] 105/68 Pulse Oximetry 96 100 98 [facility] 05/06/24 13:00 05/06/24 13:02 05/06/24 13:15 Temperature Pulse Rate 87 86 79 Pulse Rate [Right Pulse Oximeter] Respiratory Rate Blood Pressure 109/79 Blood Pressure [Le ft Upper Arm] Pulse Oximetry 99 99 93 Oxygen Delivery Nd thod 05/06/24 13:21 05/06/24 13:22 05/06/24 13:30 Temperature Pulse Rate 79 77 76 Pulse Rate [Right Pulse Oximeter] Respiratory Rate Blood Pressure 121/83 Blood Pressure [Le ft Upper Arm] Pulse Oximetry 90 93 94 [facility] 05/06/24 13:32 05/06/24 13:50 05/06/24 13:52 Temperature 98.6 F Pulse Rate 82 82 Pulse Rate [Right Pulse Oximeter] Respiratory Rate 18 Blood Pressure 98/73 101/71 Blood Pressure [Le ft Upper Arm] Pulse Oximetry 99 100 Oxygen Delivery Me thod 05/06/24 13:53 05/06/24 14:00 05/06/24 14:02 Temperature Pulse Rate 82 85 80 Pulse Rate [Right Pulse Oximeter] Respiratory Rate Blood Pressure 120/76 Blood Pressure [Le ft Upper Arm] Pulse Oximetry 100 100 96 Oxygen Delivery Me thod 05/06/24 14:15 05/06/24 14:22 05/06/24 14:22 Temperature Pulse Rate 82 Pulse Rate [Right Pulse Oximeter] Respiratory Rate Blood Pressure 113/82 113/82 Blood Pressure [Le ft Upper Arm] Pulse Oximetry 100 Oxygen Delivery Me thod 05/06/24 14:30 Temperature Pulse Rate 80 Pulse Rate [Right Pulse Oximeter] Respiratory Rate Blood Pressure Blood Pressure [Le ft Upper Arm] Pulse Oximetry 96 Oxygen Delivery Me thod Course Course ED Course: Recheck-hemodynamically stable. Reports some improvement in pain after Dilaudid Reevaluation(s) Reevaluation #1: Recheck-reporting that her pain is coming back again. Fortunately CTs are negative for any acute rib injury or intrathoracic injury. She is up to her bedside commode. Has received 500 mL of saline. Reevaluation #2: Recheck-patient questioning will why she has take potassium bicarbonate for her hypokalemia. She normally likes to take the large potassium pills. In this case would recommend potassium bicarbonate because it is more rapidly absorbed into her system. She ultimately agrees. Vital Signs Vital signs: Initial Vital Signs Temperature 97.0 F L 05/06/24 11:55 Temperature Source Temporal Artery Scan 05/06/24 11:55 Pulse Rate 76 05/06/24 11:55 Respiratory Rate 18 05/06/24 11:55 Blood Pressure 105/68 05/06/24 11:55 Blood Pressure Mean 80 05/06/24 11:55 Blood Pressure Position Sitting 05/06/24 11:55 Pulse Oximetry 96 05/06/24 11:55 Oxygen Delivery Method Room Air 05/06/24 11:55 Vital Signs Temperature 97.0 F L 05/06/24 11:55 Pulse Rate 76 05/06/24 11:55 Respiratory Rate 18 05/06/24 11:55 Blood Pressure 105/68 05/06/24 11:55 Pulse Oximetry 96 05/06/24 11:55 Oxygen Delivery Method Room Air 05/06/24 11:55 Temperature 98 F 05/06/24 19:00 Pulse Rate 80 05/06/24 19:00 Respiratory Rate 18 05/06/24 19:00 Blood Pressure 122/80 05/06/24 19:00 Pulse Oximetry 100 05/06/24 19:00 Oxygen Delivery Method Room Air 05/06/24 19:00 Medications Administered Medications: Generic Name Dose Route Start Last Admin Trade Name Freq PRN Reason Stop Dose Admin Acetaminophen 650 mg 05/06/24 17:14 05/06/24 19:39 Acetaminophen 325 Mg Tablet PO 650 mg Q4H PRN Administration Ferrous Sulfate 325 mg 05/06/24 21:00 05/06/24 21:13 Ferrous Sulfate 325 Mg Tablet PO 325 mg TID GERI Administration Gabapentin 100 mg 05/06/24 21:00 05/06/24 21:11 Gabapentin 100 Mg Capsule PO 100 mg HS GERI Administration Gabapentin 300 mg 05/06/24 21:00 05/06/24 21:12 Gabapentin 300 Mg Capsule PO 300 mg TID GERI Administration Hydromorphone HCl 0.5 mg 05/06/24 12:32 05/06/24 15:39 Hydromorphone 0.5 Mg/0.5 Ml Inj IVP 0.5 mg Q1H PRN Administration Pain Hydromorphone HCl 2 mg 05/06/24 17:14 05/06/24 21:12 Hydromorphone 2 Mg Tablet PO 2 mg Q2H PRN Administration Hydroxyzine Pamoate 25 mg 05/06/24 17:23 05/06/24 19:40 Hydroxyzine Pamoate 25 Mg Capsule PO 25 mg Q6H PRN Administration Magnesium Oxide 400 mg 05/06/24 21:00 05/06/24 21:13 Magnesium Oxide 400 Mg Tablet PO 400 mg TID GERI Administration Potassium Chloride 80 meq 05/06/24 21:00 05/06/24 21:13 Potassium Chloride 10 Meq Capsule Er PO 80 meq TID GERI Administration Sodium Chloride 5 ml 05/06/24 21:00 05/06/24 21:14 Sodium Chloride 0.9 % (Flush) 10 Ml Syringe IVF Not Given BID GERI Spironolactone 50 mg 05/06/24 21:00 05/06/24 21:12 Spironolactone 25 Mg Tablet PO 50 mg BID GERI Administration Tramadol HCl 50 mg 05/06/24 21:00 05/06/24 21:13 Tramadol Hcl 50 Mg Tablet PO 50 mg BID GERI Administration Discontinued Medications Generic Name Dose Route Start Last Admin Trade Name Tanner PRN Reason Stop Dose Admin Sodium Chloride 500 mls @ 500 mls/hr 05/06/24 12:32 05/06/24 14:10 0.9 % Sodium Chloride 500 Ml IV 05/06/24 13:31 Infused .Q1H ONE Infusion Potassium Chloride 10 meq in 100 mls @ 100 mls/hr 05/06/24 13:45 05/06/24 19:05 Potassium Chloride IVPB 05/06/24 19:14 100 mls/hr Q90M GERI Administration Sodium Chloride 500 mls @ 500 mls/hr 05/06/24 15:47 05/06/24 16:27 0.9 % Sodium Chloride 500 Ml IV 05/06/24 16:46 500 mls/hr .Q1H ONE Administration Sodium Chloride 1,000 mls @ 1,000 mls/hr 05/06/24 16:48 05/06/24 17:01 0.9 % Sodium Chloride 1000 Ml IV 05/06/24 17:47 1,000 mls/hr .Q1H GERI Administration Sodium Chloride 1,000 mls @ 500 mls/hr 05/06/24 19:40 05/06/24 20:09 0.9 % Sodium Chloride 1000 Ml IV 05/06/24 21:39 500 mls/hr .Q2H GERI Administration Potassium Bicarbonate 50 meq 05/06/24 13:45 05/06/24 15:55 Potassium Bicarb 25 Meq Effervescent Tab PO 05/06/24 15:46 50 meq Q2H GERI Administration Potassium Bicarbonate 50 meq 05/06/24 17:00 05/06/24 17:07 Potassium Bicarb 25 Meq Effervescent Tab PO 05/06/24 17:01 50 meq ONCE ONE Administration Medical Decision Making MDM Narrative Medical decision making narrative: 34-year-old female with a complex past medical history including Gitelman syndrome with associated electrolyte disturbances. She had an episode where she lost consciousness in her bathroom last night and then fell to the floor and injured her right rib cage. 1. Trauma. She did fall last night with a ground level fall and is having significant right rib pain. She also had a fall about 3 months ago with a pelvi c fractures at that time. She is not having headache but does seem to be a bit of a halting historian and reports difficulty thinking, which raises concern for intracranial injury. Head CT obtained is obtained and is fortunately normal. With her distracting injuries on exam, cannot definitively rule out C-spine injury based on nexus criteria. Therefore C-spine CT is obtained and is also fortunately normal. Primary concern here would be for potential rib her thoracic injury from the fall. Noncontrast CT scan is obtained be because of her baseline renal insufficiency and risk of contrast nephropathy. On noncontrast CT we see no evidence for any rib fracture, hemothorax, pneumothorax, or obvious pulmonary contusion. CT scan of her abdomen pelvis is also obtained because she is having a little bit of right upper quadrant pain from the fall. Fortunately no evidence for any obvious hepatic injury on her noncontrast belly CT. She is also having some left hip pain since the fall. Fortunately CT of her bony pelvis is also negative for any acute injury. 2. Cardiac. She does report that she had shaky spell loss conscious list nest night. This raises concern for possible syncope. With her history of Gitelman syndrome, could be dehydration and orthostasis. Also consider possible arrhythmia triggered by her electrolyte disturbances and prolonged QT. EKG here in the ER does show LVH, T-wave abnormalities and ST segment elevated out is which I think related to hypokalemia. He also has a prolonged QT. I do think she requires admission for cardiac monitoring in case she has further arrhythmias. She says that after her fall in January she was set up for an outpatient consultation with Cardiology through the [facility], but has not had that visit yet. 3. Renal/electrolytes. Reports a history of Gitelman syndrome. Labs do show abnormal kidney function with a creatinine above 2. She also has marked hypokalemia, hypercalcemia. Low chloride, elevated serum bicarb. Fortunately magnesium normal. Patient will require supplement with intravenous and oral potassium to bring up that level. Also IV fluids for a dehydration. 4. Heme. Patient does have a reported history of anemia. Hemoglobin 11.0. She is not anticoagulated. Given the syncope, marked electrolyte disturbances, EKG changes, I do the think the patient requires hospitalization for electrolyte stabilization and cardiac monitoring and further management. Discussed with our hospitalist, Dr. Perez. Question here is whether not admission at [facility] is appropriate or whether she would do better to transfer to a facility with Nephrology and Cardiology for specialty consultation. At this point Dr. Perez is comfortable managing the patient here [facility]. They are full should be admitted to the medical floor on telemetry monitoring. Patient is agreeable. Lab Data Labs: Lab Results 05/06/24 Range/Units 12:42 WBC 8.02 (4.50-11.00) K/uL RBC 4.00 (4.00-5.20) m/uL Hgb 11.0 L (12.0-16.0) gm/dL Hct 33.4 (33.0-51.0) % MCV 84 (80-100) fL MCH 28 (26-34) pg MCHC 33 (32-36) gm/dL RDW Coeff of [place] 12.3 (11.5-15.5) % Plt Count 431 (140-440) K/uL Neut % (Auto) 76.8 H (42.0-72.0) % Lymph % (Auto) 13.7 L (20-44) % [place] % (Auto) 7.4 (0.0-11.0) % Eos % (Auto) 1.4 (0.0-7.0) % Baso % (Auto) 0.6 (0.0-3.0) % Neut # (Auto) 6.20 (1.7-7.0) K/uL Lymph # (Auto) 1.10 (0.90-2.90) K/uL [place] # (Auto) 0.60 (0.00-0.90) K/UL Eos # (Auto) 0.11 (0.00-0.50) K/uL Baso # (Auto) 0.05 (0.00-0.30) K/uL Abs Immat Gran (auto) 0.01 (0.00-0.30) K/uL Imm/Tot Granulo (auto) 0.1 % Sodium 129 L (135-149) mmol/L Potassium 2.2 L* (3.6-5.1) mmol/L Chloride 57 L (96-114) mmol/L Carbon Dioxide 63 H* (20-32) mmol/L Anion Gap 9 (7-15) mEq/L BUN 65 H (5-24) mg/dL Creatinine 2.6 H (0.5-1.5) mg/dL Estimated Creat Clear 23.36 Estimated GFR 24 ml/min Glucose 220 H (60-115) mg/dL Lactate 2.1 H (0.5-1.9) mmol/L Calcium 10.9 H (8.4-10.6) mg/dL Magnesium 2.5 (1.5-2.6) mg/dL Total Bilirubin 0.3 (0.1-1.5) mg/dL AST 30 (12-35) U/L ALT 16 (4-35) U/L Alkaline Phosphatase 88 (40-150) U/L Troponin I < 0.01 L (0.01-0.04) ng/mL Total Protein 8.6 H (6.0-8.3) g/dL Albumin 4.7 (3.3-5.0) g/dL Lipase 128 (23-300) U/L HCG, Qual Negative (Negative) ECG Data Attestation: I personally reviewed and interpreted this ECG as follows: Interpretation: Normal sinus rhythm Rate: 95 [place]: 116. No delta waves. QRS axis: Large QRS voltages. Suggestive of LVH with repolarization abnormality. ST segment/T wave: She has very tall T-waves. Downsloping ST depression in V3- V6, 2, 3, AVF. QTc: 590 Prolonged QT I am not able to view any previous EKGs. I can see that she has had EKGs in the [facility] system. Report from her EKG from 02/29/2024 the [facility] system indicates that she has pre-existing LVH. She did not have prolonged QT on her last EKG. She did have some ST segment and T-wave changes on her previous EKG but they are not feel ball to me. Unclear what is acutely changed and what is chronic for this patient. QT prolongation appears to be new since February.
--- NOTE | 2024-05-06 12:32 | CRLHL7_ITS ---
For Patients: As a result of the Century Cures Act, medical imaging exams and procedure reports are released immediately into your electronic medical record. You may view this report before your referring provider. If you have questions, please contact your health care provider. INDICATION: Fall. Right rib pain. Right upper quadrant abdominal pain. Left hip pain. TECHNIQUE: CT chest, abdomen, and pelvis acquired without contrast. COMPARISON: CT pelvis dated 04/09/2024. FINDINGS: CHEST: Lungs and pleura: No evidence of pulmonary contusion, laceration, or pneumothorax. Focal parenchymal irregularity in the anterior left upper lobe, with small cavitary component and associated calcification (series 6, image 42). Heart and vessels: No cardiomegaly, no pericardial effusion. Thyroid and lower neck: No suspicious thyroid nodule. Mediastinum/michelle: No lymphadenopathy. Chest wall: No axillary lymphadenopathy. ABDOMEN/PELVIS: Evaluation of solid organs is limited secondary to lack of IV contrast administration. Liver: No suspicious focal hepatic lesion. Gallbladder and bile ducts: Unremarkable. Pancreas: Unremarkable. Spleen: Unremarkable. Adrenal glands: Unremarkable. Kidneys: No renal calculi or hydronephrosis bilaterally. Retroperitoneum: No lymphadenopathy. Bowel and mesentery: Bowel is not obstructed. No significant ascites, no pneumoperitoneum. Large fecal burden is present throughout the colon. No large mesenteric hematoma identified. Bladder: Unremarkable for degree of distention. Reproductive organs: Unremarkable. Pelvic lymph nodes: No lymphadenopathy. Vessels: Unremarkable for unenhanced study. Abdominal wall: No acute abdominal wall abnormality. Bones: Healing right inferior pubic ramus and pubic symphysis fractures. Healing bilateral L1 transverse process fractures. No acute displaced rib fracture identified. IMPRESSION: 1. Healing right pelvic fractures. Healing bilateral L1 transverse process fractures. No acute displaced rib fracture identified. 2. No evidence of acute solid organ injury within the chest, abdomen, or pelvis, within limitations of unenhanced study. 3. Focal pulmonary parenchymal irregularity in the anterior left upper lobe with associated calcification and small cavitary component, favored to reflect scarring. Recommend follow-up CT chest in 6-12 months. Please note that all CT scans at this facility use dose modulation, iterative reconstruction, and/or weight-based dosing when appropriate to reduce radiation dose to as low as reasonably achievable. Dictated by Merrick Garibay MD @ 05/06/2024 2:53:16 PM (Electronically Signed)
--- NOTE | 2024-05-06 12:33 | CRLHL7_ITS ---
For Patients: As a result of the Century Cures Act, medical imaging exams and procedure reports are released immediately into your electronic medical record. You may view this report before your referring provider. If you have questions, please contact your health care provider. INDICATION: Trauma, fall, neck pain. TECHNIQUE: CT cervical spine without contrast. COMPARISON: None FINDINGS: Vertebrae: No acute displaced fracture or traumatic malalignment. Discs and facet joints: Mild multilevel disc degenerative changes. Posterior disc osteophyte at C5-C6, results in mild central canal stenosis. Anatomic alignment of the bilateral facet joints. Extraspinal findings: Prevertebral soft tissues are within normal limits. Visualized airway is patent. Lung apices are grossly clear. IMPRESSION: No acute displaced fracture or traumatic malalignment of the cervical spine. Please note that all CT scans at this facility use dose modulation, iterative reconstruction, and/or weight-based dosing when appropriate to reduce radiation dose to as low as reasonably achievable. Dictated by Merrick Garibay MD @ 05/06/2024 2:29:37 PM (Electronically Signed)
--- NOTE | 2024-05-06 12:33 | CRLHL7_ITS ---
For Patients: As a result of the Century Cures Act, medical imaging exams and procedure reports are released immediately into your electronic medical record. You may view this report before your referring provider. If you have questions, please contact your health care provider. INDICATION: Fall, loss of consciousness, blunt trauma. TECHNIQUE: CT head without contrast. COMPARISON: None available. FINDINGS: Cerebral parenchyma: No evidence of acute territorial infarct. No acute intraparenchymal hemorrhage. No significant mass effect/midline shift. Normal rea-white matter differentiation. Extra-axial spaces: No extra-axial collection or hemorrhage. Ventricles: Unremarkable. Calvarium: Intact. Visualized paranasal sinuses/mastoid air cells: Grossly clear. Posterior fossa: No cerebellar tonsillar herniation. Visualized orbits: No acute abnormality. IMPRESSION: No acute intracranial abnormality. Specifically, no evidence of acute intracranial hemorrhage. Please note that all CT scans at this facility use dose modulation, iterative reconstruction, and/or weight-based dosing when appropriate to reduce radiation dose to as low as reasonably achievable. Dictated by Merrick Garibay MD @ 05/06/2024 2:14:11 PM (Electronically Signed)
[2024-05-06 12:48] LABS: Lactate* 2.1 mmol/L (0.5-1.9)
[2024-05-06 12:52] LABS: Basophils Absolute Auto 0.05 K/uL (0.00-0.30); Basophils Percent Auto 0.6 % (0.0-3.0); Eosinophils Absolute Auto 0.11 K/uL (0.00-0.50); Eosinophils Percent Auto 1.4 % (0.0-7.0); Hematocrit 33.4 % (33.0-51.0); Immature Granulocytes Abs Auto 0.01 K/uL (0.00-0.30); Immature Granulocytes Pct Auto 0.1 %; Lymphocytes Percent Auto 13.7 % (20-44); Mean Corpuscular HGB Conc 33 gm/dL (32-36); Mean Corpuscular Hemoglobin 28 pg (26-34); Mean Corpuscular Volume 84 fL (80-100); Monocytes Percent Auto 7.4 % (0.0-11.0); Neutrophils Percent Auto 76.8 % (42.0-72.0); Platelet Count* 431 K/uL (140-440); RDW Coefficient of Variation % 12.3 % (11.5-15.5); White Blood Count* 8.02 K/uL (4.50-11.00)
[2024-05-06] MEDS: 0.9 % SODIUM CHLORIDE 500 ML 500 ML IV ×2 (12:54→16:27)
[2024-05-06 12:55] LABS: Slide Review Reflex No
[2024-05-06] MEDS: HYDROmorphone 0.5 mg/0.5 ml inj IVP ×2 (12:57→15:39)
[2024-05-06 13:03] LABS: Chloride* 57 mmol/L (96-114)
[2024-05-06 13:04] LABS: Albumin* 4.7 g/dL (3.3-5.0); Sodium* 129 mmol/L (135-149)
[2024-05-06 13:06] LABS: Aspartate Amino Transferase* 30 U/L (12-35); Bilirubin Total* 0.3 mg/dL (0.1-1.5); Creatinine* 2.6 mg/dL (0.5-1.5); Est. Creatinine Clearance* 23.36; Estimated Glomerular Filt Rate 24 ml/min; Total Protein* 8.6 g/dL (6.0-8.3)
[2024-05-06 13:07] LABS: Alanine Aminotransferase* 16 U/L (4-35); Alkaline Phosphatase* 88 U/L (40-150); Blood Urea Nitrogen* 65 mg/dL (5-24); Calcium* 10.9 mg/dL (8.4-10.6); Glucose* 220 mg/dL (60-115); Lipase* 128 U/L (23-300); Magnesium* 2.5 mg/dL (1.5-2.6)
[2024-05-06 13:17] LABS: HCG Qualitative Serum* Negative (Negative)
[2024-05-06 13:22] LABS: Potassium* 2.2 mmol/L (3.6-5.1)
[2024-05-06 13:23] LABS: Anion Gap 9 mEq/L (7-15); Carbon Dioxide* 63 mmol/L (20-32); Troponin I* < 0.01 ng/mL (0.01-0.04)
[2024-05-06] MEDS: POTASSIUM BICARB 25 MEQ EFFERVESCENT TAB 50 MEQ PO ×3 (14:04→17:07)
[2024-05-06] MEDS: POTASSIUM CHLORIDE 10 MEQ/100 ML PIGGYBACK 100 MEQ IVPB ×4 (14:10→19:05)
[2024-05-06 14:33] LABS: Appearance Urine Clear (Clear); Bilirubin Urine Negative (Negative); Blood Urine Negative (Negative); Color Urine Yellow (Yellow); Glucose Urine Trace (Negative); Ketones Urine Negative (Negative); Leukocyte Esterase Urine Negative (Negative); Nitrite Urine Negative (Negative); Protein Urine 2+ (Negative); RBC Urine 0-2 (0-2); Specific Gravity Urine 1.015 (1.000-1.030); Urobilinogen Urine 0.2 (0.2-1.0); pH Urine >= 9.0 (5.0-8.5)
[2024-05-06 14:34] LABS: Bacteria Urine Few; Squamous Epithelial Cell Urine Many (None-Few)
[2024-05-06] MEDS: 0.9 % SODIUM CHLORIDE 1000 ml 1,000 ML IV (17:01)
[2024-05-06 17:30] LABS: Potassium Urine Random* 39.3; Sodium Urine Random* 74
[2024-05-06 18:25] LABS: HCO3 VBG 52 mmol/L (21-28); Lactate* 1.4 mmol/L (0.5-1.9); PCO2 VBG 59 mmHG (40-50); PO2 VBG 30.2 mmHG (25-47); pH VBG 7.555 (7.32-7.43)
[2024-05-06 18:48] LABS: Chloride* 78 mmol/L (96-114); Potassium* 3.1 mmol/L (3.6-5.1); Sodium* 134 mmol/L (135-149)
[2024-05-06 18:51] LABS: Blood Urea Nitrogen* 58 mg/dL (5-24); Creatinine* 1.9 mg/dL (0.5-1.5); Est. Creatinine Clearance* 31.46; Estimated Glomerular Filt Rate 35 ml/min; Glucose* 95 mg/dL (60-115)
[2024-05-06 18:52] LABS: Calcium* 9.3 mg/dL (8.4-10.6); Magnesium* 2.2 mg/dL (1.5-2.6)
[2024-05-06 19:07] LABS: Anion Gap 9 mEq/L (7-15); Carbon Dioxide* 47 mmol/L (20-32)
[2024-05-06] MEDS: ACETAMINOPHEN 325 MG TABLET 650 MG PO (19:39)
[2024-05-06] MEDS: hydrOXYzine pamoate 25 MG CAPSULE PO (19:40)
[2024-05-06] MEDS: 0.9 % SODIUM CHLORIDE 1000 ml 1,000 ML 500 ML IV (20:09)
[2024-05-06] MEDS: GABAPENTIN 100 MG CAPSULE PO (21:11)
[2024-05-06] MEDS: HYDROmorphone 2 MG TABLET PO (21:12)
[2024-05-06] MEDS: SPIRONOLACTONE 25 MG TABLET 50 MG PO (21:12)
[2024-05-06] MEDS: GABAPENTIN 300 MG CAPSULE PO (21:12)
[2024-05-06] MEDS: MAGNESIUM OXIDE 400 MG TABLET PO (21:13)
[2024-05-06] MEDS: FERROUS SULFATE 325 MG TABLET PO (21:13)
[2024-05-06] MEDS: POTASSIUM CHLORIDE 10 MEQ CAPSULE ER 80 MEQ PO (21:13)
[2024-05-06] MEDS: TRAMADOL HCL 50 MG TABLET PO (21:13)
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
[2024-05-06 22:35] LABS: Chloride* 81 mmol/L (96-114); Sodium* 134 mmol/L (135-149)
[2024-05-06 22:38] LABS: Creatinine* 1.8 mg/dL (0.5-1.5); Estimated Glomerular Filt Rate 38 ml/min
[2024-05-06 22:39] LABS: Blood Urea Nitrogen* 49 mg/dL (5-24); Calcium* 8.7 mg/dL (8.4-10.6); Glucose* 83 mg/dL (60-115)
[2024-05-06 22:40] LABS: Anion Gap 13 mEq/L (7-15)
[2024-05-06 22:51] LABS: Carbon Dioxide* 45 mmol/L (20-32)
[2024-05-06 23:17] LABS: Creatinine Urine Random 35 mg/dL
--- NOTE | 2024-05-07 00:06 | PC.NURSE ---
Shift note: Pt friendly and cooperative. Able to verbalize her needs. VS WNL and LS COA. Pt rates pain to right ribs 9/10. She requested Dilaudid for pain management. Refinisher discussed pain control options with pt, Tylenol and Vistaril were given PO as well as ice pack and repositioning. Pt again requested Dilaudid about 1 hour later and was given 2mg PO with her HS meds. She continues to rate pain 8-9/10 and has questioned how often she can have pain meds because she believes she will need more throughout the night for pain management. Pt ordered two dinner trays and ate 100% of an omelet, toast, malt O meal with brown sugar, and a bagel sandwich with 3 cartons of milk. She also had ordered a lunchmeat sandwich she stated she was saving for later. Refinisher helped pt to BR, she moves well with SBA. Pt was heard wretching while in the BR and splashes were heard hitting the toilet water. updated.
[2024-05-07 01:00] VITALS: BP 114/53; PULSE 77; PULSE 87; RESP 16; TEMP 36.7; O2SAT 100
[2024-05-07] MEDS: HYDROmorphone 2 MG TABLET PO ×2 (01:02→05:04)
[2024-05-07 05:00] VITALS: BP 107/65; PULSE 72; RESP 16; TEMP 36.4; O2SAT 98
[2024-05-07 06:40] LABS: Basophils Absolute Auto 0.04 K/uL (0.00-0.30); Basophils Percent Auto 0.7 % (0.0-3.0); Eosinophils Absolute Auto 0.18 K/uL (0.00-0.50); Eosinophils Percent Auto 2.9 % (0.0-7.0); Immature Granulocytes Abs Auto 0.01 K/uL (0.00-0.30); Immature Granulocytes Pct Auto 0.2 %; Lymphocytes Absolute Auto 2.63 K/uL (0.90-2.90); Lymphocytes Percent Auto 42.8 % (20-44); Mean Corpuscular HGB Conc 33 gm/dL (32-36); Mean Corpuscular Hemoglobin 28 pg (26-34); Mean Corpuscular Volume 86 fL (80-100); Monocytes Percent Auto 5.9 % (0.0-11.0); Neutrophils Absolute Auto 2.93 K/uL (1.7-7.0); Neutrophils Percent Auto 47.5 % (42.0-72.0); Platelet Count* 279 K/uL (140-440); RDW Coefficient of Variation % 12.7 % (11.5-15.5); Red Blood Count 2.78 m/uL (4.00-5.20); White Blood Count* 6.15 K/uL (4.50-11.00)
[2024-05-07 06:58] LABS: Chloride* 91 mmol/L (96-114); Potassium* 3.5 mmol/L (3.6-5.1); Sodium* 135 mmol/L (135-149)
[2024-05-07 07:00] LABS: Creatinine* 1.5 mg/dL (0.5-1.5); Est. Creatinine Clearance* 39.85; Estimated Glomerular Filt Rate 47 ml/min; Hemoglobin* 7.8 gm/dL (12.0-16.0); Slide Review Reflex No
[2024-05-07 07:01] LABS: Blood Urea Nitrogen* 40 mg/dL (5-24); Calcium* 9.1 mg/dL (8.4-10.6); Glucose* 94 mg/dL (60-115); Phosphorus* 1.9 mg/dL (2.5-4.5)
[2024-05-07 07:08] LABS: Anion Gap 4 mEq/L (7-15); Carbon Dioxide* 40 mmol/L (20-32)
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
--- NOTE | 2024-05-07 08:58 | NUTR.NU ---
RDN with nutrition screen related to underweight BMI and reported weight loss recently. Patient left AMA before RDN could attempt to visit.
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
[2024-05-09 03:22] LABS: Calcium/Creatinine Ratio Urine 214 mg/g (20-300); Hours Collected Random hr; Total Volume Random mL
== END 2024-05-07 08:38 | disposition left against medical advice (07) ==
LOC: ED 13:26 → MEDSURG 16:07
PROVIDERS: Family Medicine; Admitting Provider Family Medicine; Emergency Provider Emergency Medicine; PCP Physician Assistant; Visit Provider Family Medicine
DX: E86.0 Dehydration (principal); E87.6 Hypokalemia; N17.9 Acute kidney failure, unspecified; F50.20 Bulimia nervosa, unspecified; R94.4 Abnormal results of kidney function studies; R79.81 Abnormal blood-gas level; E87.8 Other disorders of electrolyte and fluid balance, not elsewhere classified; E87.3 Alkalosis; E46 Unspecified protein-calorie malnutrition; R10.2 Pelvic and perineal pain; R55 Syncope and collapse; R07.81 Pleurodynia; M25.552 Pain in left hip; W18.30XA Fall on same level, unspecified, initial encounter; M54.2 Cervicalgia; H53.8 Other visual disturbances; R41.3 Other amnesia; N18.9 Chronic kidney disease, unspecified; F11.10 Opioid abuse, uncomplicated; D50.9 Iron deficiency anemia, unspecified; R64 Cachexia; M79.7 Fibromyalgia; G89.29 Other chronic pain; M81.0 Age-related osteoporosis without current pathological fracture; Z87.898 Personal history of other specified conditions; Z91.148 Patient's other noncompliance with medication regimen for other reason; J98.4 Other disorders of lung; N91.2 Amenorrhea, unspecified
CPT/HCPCS: 36415; 70450; 71250; 72125; 74176; 80048; 80053; 81001; 82340; 82436; 82570; 82803; 83605; 83690; 83735; 84100; 84133; 84300; 84484; 84703; 85025; 87086; 93005; 96361; 96365; 96366; 96375; 96376; 99285; G0378; A9270; J1171; J3480; J7030

== ENCOUNTER 2024-07-08 17:27 | Emergency (ER) | payer MEDICAID, SELFPAY ==
[2024-07-08] VITALS (8 sets, daily range): BP systolic 110–137; BP diastolic 58–92; PULSE 72–89; RESP 16–20; TEMP 36.3; O2SAT 96–100; BMI 16.9
--- OUTSIDE RECORDS SUMMARY | 2024-07-08 17:30 | XMS_ITS | Clinical Summary ---
Author Organization [facility] Address [address] [place] [address] Care Team Providers Care Urban Designer Name Role Phone Unavailable Primary Care Provider Unavailabl e Source Comments PLEASE NOTE, if this patient is a minor, it may be UNLAWFUL to discuss sensitive information that is contained in these records (such as FAMILY PLANNING, MENTAL HEALTH or SUBSTANCE ABUSE) with the minor patient's parent or other person without the patient's specific authorization.[facility] Social History Tobacco Use Types Packs/Day Years Used Date Smoking Tobacco: Never Assessed Comments Unknown Sex and Gender Information Value Date Recorded Sex Assigned at Not on file Legal Sex Female 7:28 AM PST Gender Identity Not on file Sexual Orientation Not on file Plan of Treatment Upcoming Encounters Date Type Department Care Team (Late st Contact Info) Description 08/26/2024 10:00 AM FINANCIAL PLANNING ANALYST Office Visit [address] [phone] Ritu Estevez [address] [place] [id number] Health Maintenance Due Date Last Done Comments HPV Screening 1991 Hepatitis C Screening 1991 Pap + HPV 1991 Tobacco Screening 1991 HIV Screening 2006 Relationship Safety Screening/Counseling 2006 Hypertension Screening (#1) 2009 Cervical Cancer Screening 2012 Pap Smear 2012 [id number] ( season) 2024 Imm-Influenza (#1) 2024 Alcohol and Drug Screen 06/25/2024 Depression Annual Screen 06/25/2024 Imm-DTaP/Tdap/Td (8 - Td or Tdap) 08/30/2030 08/30/2020, 04/19/2009, 11/16/2003, Additional history exists Imm-Hepatitis B Completed 04/27/1993, 09/24, 07/16/1992 Cervical Ablation/Cold-Knife Conization Discontinued Cervical Cryotherapy Discontinued Colposcopy Discontinued Endometrial Biopsy Discontinued Excision/Leep Discontinued HPV Genotyping Discontinued Vaginal Pap Discontinued Vulvoscopy Discontinued
--- OUTSIDE RECORDS SUMMARY | 2024-07-08 17:30 | XMS_ITS | Clinical Summary ---
Author Organization [facility] Address [place], [place] [address] Care Team Providers Care Change Control Manager Name Role Phone Gregg Corrales MD Primary Care Provider Neha Chavez Unavailable Unavailable [facility], [facility] Unavailable [phone] Robles Long MD Unavailable [phone] Hayden Benavides [facility] Unavailable Allergies Active Allergy Reactions Criticality Noted Date Comments Duloxetine Hypotension,Other - Describe In Comment Field Unknown 09/22/2017 B/P drop, shaking/tremor/fuzz y Duloxetine Hcl Hypotension,Other - Describe In Comment Field Unknown 09/30/2020 Blood pressure dropped Ferric Carboxymaltose Irritation At Inj Site Low 11/07/2021 Irritation at the injection site. Pt declined continuing infusion at lower rate. Iron Sucrose Anxiety,Edema,GI Upset,Irritation At Inj Site High 09/23/2017 Ondansetron Other - Describe In Comment Field Unknown 04/29/2023 Patient refused to take because it can make QT long and has history of long QT. Medications multivitamin-min erals therapeutic tablet Take 1 Tablet by mouth once daily. Active ferrous sulfate 325 mg delayed release tablet Take 325 mg by mouth three times daily with meals. Active calcium carbonate (TUMS) 200 mg calcium (500 mg) chewable tablet Chew 500-1,000 mg by mouth 4 times daily if needed for Heartburn or GI Upset. Active Ventolin HFA 90 mcg/actuation inhalerIndicatio ns:Mild intermittent asthma without complication INHALE 1-2 PUFFS BY MOUTH EVERY 4 HOURS IF NEEDED FOR SHORTNESS OF BREATH 18 g 10/01/19 24 Active magnesium oxide (MAG-OX 400) 400 mg tablet Take 400 mg by mouth three times daily. Active sennosides-docus ate (SENOKOT S) (8.6-50 mg) tabletIndication s:Incisional hernia, without obstruction or gangrene Take 1 Tablet by mouth 2 times daily if needed for Constipation. 20 Tablet 12/25/19 24 Active hydrOXYzine HCL (ATARAX) 25 mg tabletIndication s:Anxiety TAKE ONE TO TWO TABLETS BY MOUTH EVERY 6 HOURS NEEDED 360 Tablet 1 01/14/20 24 Active gabapentin (NEURONTIN) 100 mg capsuleIndicatio ns:Chronic pain syndrome Take 1 cap at night with 300 mg capsule. 90 Capsule 2 03/02/20 24 Active potassium chloride (K-TAB) 20 mEq extended-release tabletIndication s:Salt-losing nephropathy Take 2 Tablets (40 mEq) by mouth every 6 hours. take pills with meals/food. 720 Tablet 1 02/28/20 24 Active Additional Information Patient taking differently: 80 mEqOralBID, take pills with meals/food., Informant: Patient's Recall, Reported on 06/13/2024 WalkerIndication s:Closed fracture of right inferior pubic ramus with routine healing, subsequent encounter Walker with front wheels for home use. 1 Each 03/01/20 24 Active gabapentin (NEURONTIN) 300 mg capsuleIndicatio ns:Chronic pain syndrome Take 1 Capsule (300 mg) by mouth three times daily. 270 Capsule 1 03/03/20 24 Active ondansetron (ZOFRAN) 4 mg tabletIndication s:Nausea Take 1 Tablet (4 mg) by mouth every 8 hours if needed for Nausea/Vomiting . 30 Tablet 2 05/14/20 24 Active spironolactone (ALDACTONE) 50 mg tabletIndication s:Gitelman syndrome Take 1 Tablet (50 mg) by mouth once daily. 90 Tablet 3 05/27/20 24 Active oxyCODONE (ROXICODONE) 5 mg immediate release tabletIndication s:Rib pain on right side Take 1 Tablet (5 mg) by mouth every 6 hours if needed for Pain. 12 Tablet 12/03/20 24 Active traMADoL (ULTRAM) 50 mg tabletIndication s:Chronic pain syndrome Take 1 Tablet (50 mg) by mouth two times daily. 60 Tablet 07/03/19 25 Active methocarbamoL 750 mg tabletIndication s:Chronic pain syndrome Take 1 Tablet (750 mg) by mouth every 6 hours if needed for Muscle Spasm. 360 Tablet 1 07/07/19 25 Active methocarbamoL (ROBAXIN) 750 mg tabletIndication s:Chronic pain syndrome TAKE ONE TABLET BY MOUTH EVERY 6 HOURS NEEDED FOR MUSCLE SPASMS 360 Tablet 1 12/31/19 24 025 Discontin ued(Reord er (E-cancel not sent)) traMADoL (ULTRAM) 50 mg tabletIndication s:Chronic pain syndrome Take 1 Tablet (50 mg) by mouth two times daily. 60 Tablet 06/03/20 24 025 Discontin ued(Reord er (E-cancel not sent)) Active Problems Problem Noted Date Diagnosed Date PTSD (post-traumatic stress disorder) 05/14/2024 Right hip pain 03/20/2024 Hypercalcemia 03/06/2024 Chronic anemia 02/13/2024 Chronic kidney disease (CKD), stage IV (severe) 02/13/2024 Closed fracture of right inferior pubic ramus Umbilical hernia 12/24/2023 Metabolic alkalosis 09/29/2023 Infected venous access port, initial encounter 0 08/13/2023 Right wrist pain 07/23/2023 Hypermagnesemia 07/03/2023 Overview (07/03/2023): Mg2+ 2.5 Acute on chronic anemia 04/29/2023 Overview (12/24/2023): HEMOGLOBIN (g/dL) Date Value 12/24/2023 6.9 (LL) HEMOGLOBIN (g/dL) Date Value 05/31/2023 9.1 (L) Acute kidney injury superimposed on chronic kidn ey disease 04/06/2023 Overview (08/25/2023): Cr 3.72 Baseline Creatinine 2.03-2.6 Iron deficiency anemia 04/06/2023 Opioid abuse 03/21/2023 Overview (03/21/2023): 02/2023 admission for hypokalemia: There was concern for secondary gain of narcotics with pain reported out of proportion to expectation for muscle cramps/irritability with potassium derangement. This behavior has been documented previously since at least 2017 and opioid use should continue to be limited as able in the future. Anxiety 10/29/2017 Hypokalemia 10/09/2017 Overview (03/21/2023): It should be noted the patient can be driven to marked hyperkalemia with a certain degree of ease - see 02/2023 admission for hypokalemia and port-a-cath placement. Her potassium trend was quite curious - she was replaced with home dose oral 80meq, increased slightly from 5x daily to 6x daily with modest additional IV potassium replacement via peripheral IV. Her potassium dramatically nivia from 2.3 into a state of cori hyperkalemia peaking at 7.0 with multiple re-checks to confirm accuracy. This pattern is strongly suggestive of home medication non-compliance which the patient adamantly denied. Controlled substance agreement signed 09/19/2017 Overview (12/18/2023): Pain management: 12/18/23- tramadol 60 tabs/ month- takes 1 tab twice a day. If getting narcotics through ED or post hospital, patient will make PCP aware. Situational mixed anxiety and depressive disorde r 09/17/2017 Chronic pain syndrome 07/27/2017 Overview (10/17/2017): Discussed with patient on admission that narcotics would no longer be a part of her treatment plan for hypokalemia admissions at [facility] Eros Melendez MD .................... 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 These include hypokalemia, metabolic alkalosis, hyperreninemia, hyperplasia of the juxtaglomerular apparatus (the source of renin in the kidney), and hyperaldosteronism. Major depression, recurrent 08/02/2012 Resolved Problems Problem Noted Date Diagnosed Date Resolved Date Hypercalcemia 07/03/2023 03/03/2024 Overview (07/03/2023): Ca2+ 14.7 Hypokalemia 04/29/2023 01/24/2024 Overview (07/03/2023): K+ 2.1 Runs in the 2.9 range on review of EMR Hypocalcemia 04/29/2023 05/31/2023 Acute kidney injury superimp osed on chronic kidney disease 04/16/2023 05/31/2023 Hypokalemia 04/06/2023 04/29/2023 Hypocalcemia 04/06/2023 04/29/2023 Hyperkalemia 03/21/2023 04/29/2023 Metabolic alkalosis 03/19/2023 04/29/20 Upper back and neck pain on right side 09/20/2017 10/29/2017 Hypotension 09/20/2017 10/29/2017 Suspected Adverse Medication Reaction 09/20/2017 10/29/2017 concern for medical non-compliance 09/12/2017 11/29/2022 Overview (09/12/2017): Patient's pharmacy reports she is regularly filling her prescriptions for potassium, magnesium and salt tabs. Opioid dependence 09/12/2017 11/29/2022 Overview (09/12/2017): Regular use of opioid while inpatient and out patient. Referred to pain clinic, has not yet established. Multiple prescriptions by multiple providers. Possible seizure ? 09/11/2017 Overview (09/12/2017): With low potassium, normal mag and was on IV dilaudid. Concern dilaudid precipitated. EEG and MRI negative, no AEDs per seizure MD. Recommended to avoid IV dilaudid in the future. Hypomagnesemia 05/13/2017 04/29/2023 Hypokalemia 05/12/2017 10/19/2017 Overview (09/20/2017): On admission, restart her home potassium regimen, not the hospital replacement protocol Abdominal pain 05/12/2017 04/29/2023 Nausea & vomiting 05/12/2017 12/18/2018 Hypokalemia 03/16/2015 07/20/2017 Depression 03/15/2015 10/29/2017 Hypokalemic alkalosis 01/17/20152018 Overview (12/27/2016): Overview: Diagnosis updated by automated process. Provider to review and confirm. Loss of weight 10/04/2007 10/29/2017 Gastroparesis 12/17/2006 05/31/2023 Overview (12/17/2006): Post infectious Encounters Date Type Department Care Team Description 07/08/2024 Telephone [facility] [address] [place] [address] Gregg Corrales MD Appointment 07/07/2024 Telephone [facility] [address] [place] [address] Gregg Corrales MD Refill Request (methocarbamol tablet (ROBAXIN) /) 07/03/2024 Telephone [facility] [address] [place] [address] Gregg Corrales MD Follow Up 06/26/2024 Medical Messaging [facility] [address] [place] [address] Shah appointment 06/16/2024 Telephone [facility] [address] [place] [address] Gregg Corrales MD 06/16/2024 Telephone [facility] [address] [facility] [address] [place] [address] Hayden Benavides MBBS Lab (important labs ) 06/16/2024 Telephone [facility] [address] [facility] [address] [place] [address] Hayden Benavides MBBS Lab 06/14/2024 Telephone [facility] [address] [facility] [address] [place] [address] Hayden Benavides MBBS Results (Returning call) 06/13/2024 11:30 AM HOT CAR OPERATOR Office Visit [facility] [address] [place] [address] Hayden Benavides MBBS Follow Up (Renal follow-up / post-hospital follow-up) 06/13/2024 Orders Only [facility] Scanner 1 scan: (1-Ord) [facility], MULTIPLE LAB RESULT, 06/13/2024 06/13/2024 Travel 05/28/2024 2:22 PM HOT CAR OPERATOR - 05/28/2024 11:59 PM HOT CAR OPERATOR Hospital Encounter [address] [address] Hypokalemia 05/28/[address] [address] Gregg Corrales MD Results 05/28/2024 Travel 05/27/2024 3:15 PM HOT CAR OPERATOR Ancillary Procedure [address] [address] 05/27/2024 3:00 PM HOT CAR OPERATOR Ancillary Procedure [facility] [address] [place] [address] 05/27/2024 2:15 PM HOT CAR OPERATOR Office Visit [address] [place] [address] Gregg Corrales MD Follow Up (Patient is still having (R) sided rib pain) 05/26/2024 Travel 05/15/[address] [address] Gregg Corrales MD Results 05/14/2024 11:55 AM HOT CAR OPERATOR Ancillary Procedure [address] [address] 05/14/2024 11:05 AM HOT CAR OPERATOR Office Visit [address] [address] Gregg Corrales MD Follow Up; Pain (Rib pain passed out 2 weeks ago woke up extreme rib pain) 05/14/2024 Travel 05/05/2024 Patient Outreach [facility] Care Management - Advanced Care Team [address] [place] [address] Nguyen Najera RN Chronic Kidney Disease (Engagement Outreach) 05/01/2024 Patient Outreach [facility] - Care Management Navigation/[facility] [address] [place] [address] Alex Lizama LSW Care Management Intake (Social work care management intake outreach. ) 04/28/[address] [address] Gregg Corrales MD Hospital F/U 04/23/2024 10:30 AM CDT Office Visit [facility] [address] [facility] [address] [place] [address] Hayden Benavides MBBS Follow Up (Renal follow-up) 04/23/2024 Orders Only [facility] Scanner 1 scan: (1-Ord) ABNORMAL ECG , 04/23/2024 04/23/[address] [address] Gregg Corrales MD Failed Appointment 04/22/2024 Telephone [facility] [address] [place], [place] [phone] Gregg Corrales MD 04/22/2024 Travel 04/08/2024 Telephone [facility] [address] [place] [place], [place] [id number] Hayden Benavides MBBS from Last 3 Months Immunizations Name Administration Dates Next Due DTP 10/18/1992,1991 DTaP 11/28/1996, 3,1991,08/11,1991 HIB PRP-T (ActHIB,Hiberix) 10/20/1992,07/16/1992 ,1991 Hepatitis A (Adult) 11/15/2009,04/19/2009 Hepatitis B (Peds) 04/27/1993,10/18/1992, 993 Human Papilloma Virus Vaccine 05/15/2011, 009 Inactivated Polio Vaccine 1991,1991 MMR 04/22/2009, 9,11/16/2003,07/16 Meningococcal Vaccine (Menactra) 04/19/2009 Oral Polio Vaccine 11/28/1996, 3,1991,08/11,1991 Polio (Oral Polio Vaccine,Unspecified) 0 11/28/1996,10/18/1992,1991,08/11,1991 Td (Age >=7 Years) 11/16/2003 Tdap 08/30/2020,04/19/2009 Family History Medical History Relation Name Comments Other Father Pillo IBS Thyroid Disease Mother Aranza hypothyroid Good Health Sister 3 Good Health Sister 4 Relation Name Status Comments Father Pillo Alive Mother Aranza Alive Sister 1 Alive Sister 2 Alive Sister 3 Sister 4 Social History Tobacco Use Types Packs/Day Years Used Date Smoking Tobacco: Never Smokeless Tobacco: Never Tobacco Cessation:Counseling Given: Yes Alcohol Use Standard Drinks/Week Comments No 0 (1 standard drink = 0.6 oz pur e alcohol) PHQ-2 Answer Date Recorded PHQ-2 TOTAL SCORE 3 10/22/2023 Social Connections Answer Date Recorded Do you often feel lonely or isolated from those around you? 0 02/29/2024 Financial Resource Strain Answer Date R ecorded Difficulty of Paying Living Expenses 3 02/13/2024 Difficulty of Paying Living Expenses Not on file 02/13/2024 Food Insecurity Answer Date Recorded Do you worry your food will run out before you are able to buy more? 1 02/29/2024 Transportation Needs Answer Date Record ed Does lack of transportation keep you from medica l appointments? 1 02/29/2024 Does lack of transportation keep you from work, meetings or getting things that you need? 1 02/29/2024 Housing Stability Answer Date Recorded What is your housing situation today? 1 02/29/2024 Interpersonal Safety Answer Date Record ed Are you being hit, kicked, p ushed or yelled at (see row info)? No 02/29/2024 Interpersonal Safety Abuse 12 - 18 Not on file 02/29/2024 Interpersonal Safety Ambulatory Vulnerability No t on file 02/29/2024 Utilities Answer Date Recorded Do you have trouble paying f or utilities (for example, heat, electricity, water, phone)? 1 02/29/2024 Comments No Sex and Gender Information Value Date Recorded Sex Assigned at Not on file Legal Sex Female 5:27 AM HOT CAR OPERATOR Gender Identity Not on file Sexual Orientation Not on file Obstetrics History Last Filed Vital Signs Vital Sign Reading Time Taken Comments Blood Pressure 114/71 06/13/2024 12:05 PM HOT CAR OPERATOR Pulse 96 06/13/2024 12:05 PM HOT CAR OPERATOR Temperature 36.4 C (97.6 F) 03/01/2024 11:31 AM CDT Respiratory Rate 16 03/01/2024 11:3 1 AM CDT Oxygen Saturation 97% 04/23/2024 10: 34 AM CDT Inhaled Oxygen Concentration - - Weight 47.1 kg (103 lb 12.8 oz) 06/13/2024 11:58 AM HOT CAR OPERATOR with snowpants on Height 170.2 cm (5' 7) 02/29/2024 11:2 1 AM CDT Body Mass Index 16.26 02/29/2024 11:21 AM CDT Plan of Treatment Upcoming Encounters Date Type Department Care Team (Late st Contact Info) Description 07/23/2024 10:00 AM HOT CAR OPERATOR Telemedicine [facility] [address] [place] [address] [place] [address] [place] [address] Health Maintenance Due Date Last Done Comments Pneumococcal series for age 6-49 (1 of 2 - PCV) 2010 Pap test for age 21-65 2012 COVID-19 vaccine series ( season) 2024 Influenza for age 9-49 02/24/2024 BMI (ht and wt on same day) for age 18+ 09/02/2024 09/03/2023, 02/17/2022, 09/29/2020, Additional history exists Depression screening for age 12+ 10/25/2024 10/26/2023, 10/22/2023, 11/29/2022, Additional history exists Tetanus booster 08/30/2030 08/30/2020, 03/26, 11/16/2003 Tdap Completed 08/30/2020, 04/19/2009 HIV for age 15-65 Completed 09/19/2021 Hepatitis C screening for ag e 18-79 Completed 09/19/2021 Medical Devices Implanted Type Area Sizing Machine And Drier Operator Device Identifier Shelf Expiration Date Model / Serial / Lot Mesh Ventral 2.5in Ventralex St W/Strap - [id number] Implanted:Qty : 1 on 12/25/2023 by Robles Long MD at [facility] General Surgery Implants N/A: Abdomen [employer] 03/22/2025 [id number] / / [id number] Port W/8fr 1 [employer] - [id number] Implanted:Qty : 1 on 03/20/2023 by Clementine Hickman MD at [facility] [employer] 11/22/2024 [id number] / / [id number] Port W/8fr 1 [employer] - [id number] Implanted:Qty : 1 on 03/21/2023 by Clementine Hickman MD at [facility] Right: Chest [employer] 11/22/2024 [id number] / / [id number] Procedures Procedure Name Priority Date/Time Associated Diagnosis Comments OSMOLALITY,URINE Routine 06/13/2024 2:00 PM HOT CAR OPERATOR BARBARA (acute kidney injury) (HC) Hypercalcemia Hypokalemia Alkalosis SODIUM,RANDOM URINE Routine 06/13/2024 2 :00 PM HOT CAR OPERATOR BARBARA (acute kidney injury) (HC) Hypercalcemia Hypokalemia Alkalosis POTASSIUM,RANDOM URINE Routine 06/13/2024 2:00 PM HOT CAR OPERATOR BARBARA (acute kidney injury) (HC) Hypercalcemia Hypokalemia Alkalosis CHLORIDE,RANDOM URINE Routine 06/13/2024 2:00 PM HOT CAR OPERATOR BARBARA (acute kidney injury) (HC) Hypercalcemia Hypokalemia Alkalosis CALCIUM,RANDOM URINE Routine 06/13/2024 2:00 PM HOT CAR OPERATOR BARBARA (acute kidney injury) (HC) Hypercalcemia Hypokalemia Alkalosis PROTEIN/CREAT RATIO,URINE Routine 06/13/2024 2:00 PM HOT CAR OPERATOR BARBARA (acute kidney injury) (HC) Hypercalcemia Hypokalemia Alkalosis CK TOTAL STAT 06/13/2024 1:05 PM HOT CAR OPERATOR BARBARA (acute kidney injury) (HC) CALCITRIOL(1 25 DI OH VIT D) Routine 06/13/2024 1:05 PM HOT CAR OPERATOR BARBARA (acute kidney injury) (HC) Hypercalcemia Hypokalemia Alkalosis PTH,INTACT Routine 06/13/2024 1:05 PM HOT CAR OPERATOR BARBARA (acute kidney injury) (HC) Hypercalcemia Hypokalemia Alkalosis MAGNESIUM Routine 06/13/2024 1:05 PM HOT CAR OPERATOR BARBARA (acute kidney injury) (HC) Hypercalcemia Hypokalemia Alkalosis OSMOLALITY Routine 06/13/2024 1:05 PM HOT CAR OPERATOR BARBARA (acute kidney injury) (HC) Hypercalcemia Hypokalemia Alkalosis VITAMIN D 25 (DEFICIENCY) Routine 06/13/2024 1:05 PM HOT CAR OPERATOR BARBARA (acute kidney injury) (HC) Hypercalcemia Hypokalemia Alkalosis PHOSPHORUS Routine 06/13/2024 1:05 PM HOT CAR OPERATOR BARBARA (acute kidney injury) (HC) Hypercalcemia Hypokalemia Alkalosis CALCIUM IONIZED OUTPT DRAW ONLY Routine 06/13/2024 1:05 PM HOT CAR OPERATOR BARBARA (acute kidney injury) (HC) Hypercalcemia Hypokalemia Alkalosis BASIC METABOLIC PANEL Routine 06/13/2024 1:05 PM HOT CAR OPERATOR BARBARA (acute kidney injury) (HC) Hypercalcemia Hypokalemia Alkalosis SCAN-LABORATORY REPORT 06/13/2024 12:00 AM HOT CAR OPERATOR MAGNESIUM Today 05/28/2024 2:31 PM HOT CAR OPERATOR Hypokalemia BASIC METABOLIC PANEL Today 05/28/2024 2:31 PM HOT CAR OPERATOR Hypokalemia XR ANKLE 3 VIEWS LEFT Routine 05/27/2024 3:04 PM HOT CAR OPERATOR Acute left ankle pain XR KNEE 3 VIEWS LEFT Routine 05/27/2024 3:04 PM HOT CAR OPERATOR Acute pain of left knee BASIC METABOLIC PANEL Routine 05/14/2024 12:13 PM HOT CAR OPERATOR Hypokalemia Chronic kidney disease (CKD), stage IV (severe) (HC) CBC W PLT NO DIFF Routine 05/14/2024 12: 13 PM HOT CAR OPERATOR Hypokalemia Chronic kidney disease (CKD), stage IV (severe) (HC) XR RIBS RIGHT AND PA CHEST MINIMUM 3 VIEWS Routine 05/14/2024 12:08 PM HOT CAR OPERATOR Rib pain on right side SCAN-ELECTROCARDIOG CARMEN EKG 04/23/2024 12:00 AM CDT ANTI HIV 1/2 Routine 09/19/2021 12:39 PM CDT Iron deficiency anemia, unspecified iron deficiency anemia type ANTI HCV Routine 09/19/2021 12:39 PM CDT Iron deficiency anemia, unspecified iron deficiency anemia type from Last 3 Months or Most Recently Relevant to Health Maintenance Results * (ABNORMAL) PROTEIN/CREAT RATIO,URINE (06/13/2024 2:00 PM HOT CAR OPERATOR) PROTEIN QUANT,RAND URINE 24(H) 1 - 14 mg/dL 06/13/2024 11:47 PM HOT CAR OPERATOR [facility] CREAT,RANDOM URINE 54.2 28.0 - 217.0 mg/dL 06/13/2024 11:47 PM HOT CAR OPERATOR [facility] PROT/CREAT RATIO,UR 0.4(H) <0.2 06/13/2024 11:47 PM HOT CAR OPERATOR [facility] Urine URINE SPECIMEN / Unknown Non-Blood / Unknown 06/13/2024 2:00 PM HOT CAR OPERATOR 06/13/2024 2:48 PM HOT CAR OPERATOR Hayden DENTON URINE Final Result Performing Organization Address [facility]/ZIP Co de Phone Number [facility] [address] [place] [id number], [place] * SODIUM,RANDOM URINE (06/13/2024 2:00 PM HOT CAR OPERATOR) Pathologist [facility] SODIUM,RANDOM URINE 43 mmol/L 06/13/2024 11:47 PM HOT CAR OPERATOR [facility] Comment:No Reference Range D efined. Urine URINE SPECIMEN / Unknown Non-Blood / Unknown 06/13/2024 2:00 PM HOT CAR OPERATOR 06/13/2024 2:48 PM HOT CAR OPERATOR Hayden DENTON URINE Final Result [facility] [address] [place] [address], [place] * POTASSIUM,RANDOM URINE (06/13/2024 2:00 PM HOT CAR OPERATOR) POTASSIUM,RAND OM UR 36.1 mmol/L 06/13/2024 11:47 PM HOT CAR OPERATOR [facility] Comment:No Reference Range D efined. Urine URINE SPECIMEN / Unknown Non-Blood / Unknown 06/13/2024 2:00 PM HOT CAR OPERATOR 06/13/2024 2:48 PM HOT CAR OPERATOR Hayden DENTON URINE Final Result Performing Organization Address City/[facility]/ZIP Co de Phone Number [facility] [address] [place] [phone], [place] * CHLORIDE,RANDOM URINE (06/13/2024 2:00 PM HOT CAR OPERATOR) CHLORIDE,RANDO M URINE <20 mmol/L 06/13/2024 11:47 PM HOT CAR OPERATOR [facility] Comment:No Reference Range D efined. Urine URINE SPECIMEN / Unknown Non-Blood / Unknown 06/13/2024 2:00 PM HOT CAR OPERATOR 06/13/2024 2:48 PM HOT CAR OPERATOR Hayden DENTON URINE Final Result Performing Organization Address City/[facility]/ZIP Co de Phone Number [facility] [address] [address], [place] * CALCIUM,RANDOM URINE (06/13/2024 2:00 PM HOT CAR OPERATOR) CALCIUM,RANDOM URINE 6.3 mg/dL 06/13/2024 11:50 PM HOT CAR OPERATOR [facility] Comment:No Reference Range D efined. Urine URINE SPECIMEN / Unknown Non-Blood / Unknown 06/13/2024 2:00 PM HOT CAR OPERATOR 06/13/2024 2:48 PM HOT CAR OPERATOR Hayden DENTON URINE Final Result Performing Organization Address City/[facility]/ZIP Co de Phone Number [facility] [address] [place] [address], [place] * OSMOLALITY,URINE (06/13/2024 2:00 PM HOT CAR OPERATOR) OSMOLALITY,URI NE 247 50 - 1,400 mOsmol/kg 06/14/2024 2:11 AM HOT CAR OPERATOR [facility] Urine URINE SPECIMEN / Unknown Non-Blood / Unknown 06/13/2024 2:00 PM HOT CAR OPERATOR 06/13/2024 2:48 PM HOT CAR OPERATOR Hayden Cabezas Alacarline Benavides [facility] URINE Final Result Performing Organization Address [facility] Co de Phone Number [facility] [address] [place] [address], [place] * (ABNORMAL) CALCITRIOL(1 25 DI OH VIT D) (06/13/2024 1:05 PM HOT CAR OPERATOR) VITAMIN D, 1,25 (OH)2, TOTAL <8(L) 18 - 72 pg/mL 06/20/2024 12:55 PM HOT CAR OPERATOR [facility] VITAMIN D3, 1,25 (OH)2 <8 pg/mL 06/20/2024 12:55 PM HOT CAR OPERATOR [facility] DIAGNOSTICS VITAMIN D2, 1,25 (OH)2 <8 pg/mL 06/20/2024 12:55 PM HOT CAR OPERATOR [facility] Comment: (Note) Vitamin D3, 1,25(OH)2 indicates both endogenous production and supplementation. Vitamin D2, 1,25(OH)2 is an indicator of exogenous sources, such as diet or supplementation. Interpretation and therapy are based on measurement of Vitamin D, 1,25 (OH)2, Total. This test was developed, and its analytical performance characteristics have been determined by [employer]. It has not been cleared or approved by the FDA. This assay has been validated pursuant to the CLIA regulations and is used for clinical purposes. For additional information, please refer to http://education.VasoNova.Stockezy/faq/UXV261 (This link is being provided for informational/educational purposes only.) [facility] med fusion [address] [facility] [address] Luciano Rollins MD, PhD Blood BLOOD SPECIMEN / Unknown Non-Lab Venipuncture / Unknown 06/13/2024 1:05 PM HOT CAR OPERATOR 06/13/2024 1:36 PM HOT CAR OPERATOR Hayden DENTON SEND OUTS Final Result Performing Organization Address [facility] Co de Phone Number [facility] [address] [address], [place] [phone] * (ABNORMAL) CALCIUM IONIZED OUTPT DRAW ONLY (06/13/2024 1:05 PM HOT CAR OPERATOR) CALCIUM, IONIZED 6.6(H) 4.7 - 5.5 mg/dL 06/16/2024 11:32 AM HOT CAR OPERATOR [facility] Blood BLOOD SPECIMEN / Unknown Non-Lab Venipuncture / Unknown 06/13/2024 1:05 PM HOT CAR OPERATOR 06/13/2024 1:36 PM HOT CAR OPERATOR Hayden DENTON CHEMISTRY Final Result Performing Organization Address [facility] [[email or web address]] de Phone Number [facility] [address] [address], [place] [phone] * (ABNORMAL) VITAMIN D 25 (DEFICIENCY) (06/13/2024 1:05 PM HOT CAR OPERATOR) VITAMIN D,25-OH,TOTAL,IA 13(L) 30 - 100 ng/mL 06/15/2024 1:36 PM HOT CAR OPERATOR [facility] Comment: Vitamin D Status 25-OH Vitamin D: Deficiency: <20 ng/mL Insufficiency: 20 - 29 ng/mL Optimal: > or = 30 ng/mL For 25-OH Vitamin D testing on patients on D2-supplementation and patients for whom quantitation of D2 and D3 fractions is required, the QuestAssureD(TM) 25-OH VIT D, (D2,D3), LC/MS/MS is recommended: order code 15199 (patients >2yrs). See Note 1 Note 1 For additional information, please refer to http://education.Mobile Pulse/faq/KPU945 (This link is being provided for informational/ educational purposes only.) Blood BLOOD SPECIMEN / Unknown Non-Lab Venipuncture / Unknown 06/13/2024 1:05 PM HOT CAR OPERATOR 06/13/2024 1:36 PM HOT CAR OPERATOR Hayden DENTON SEND OUTS Final Result Performing Organization Address [facility]/ZIP Co de Phone Number [facility] [address] [address], * PHOSPHORUS (06/13/2024 1:05 PM HOT CAR OPERATOR) PHOSPHATE ( PHOSPHORUS) 3.0 2.5 - 4.5 mg/dL 06/14/2024 9:59 AM HOT CAR OPERATOR [facility] Blood BLOOD SPECIMEN / Unknown Non-Lab Venipuncture / Unknown 06/13/2024 1:05 PM HOT CAR OPERATOR 06/13/2024 1:36 PM HOT CAR OPERATOR Hayden DENTON CHEMISTRY Final Result Performing Organization Address [facility]/ZIP Co de Phone Number [facility] [address] [address], * (ABNORMAL) PTH,INTACT (06/13/2024 1:05 PM HOT CAR OPERATOR) PARATHYROID HORMONE, INTACT 41 16 - 77 pg/mL 06/16/2024 11:10 AM HOT CAR OPERATOR [facility] Comment: Interpretive Guide Intact PTH Calcium ------- Normal Parathyroid Normal Normal Hypoparathyroidism Low or Low Normal Low Hyperparathyroidism Primary Normal or High High Secondary High Normal or Low Tertiary High High Non-Parathyroid Hypercalcemia Low or Low Normal High CALCIUM 13.9(HH) 8.6 - 10.2 mg/dL 06/16/2024 11:10 AM HOT CAR OPERATOR [facility] Comment:Verified by repeat a nalysis. Blood BLOOD SPECIMEN / Unknown Non-Lab Venipuncture / Unknown 06/13/2024 1:05 PM HOT CAR OPERATOR 06/13/2024 1:32 PM HOT CAR OPERATOR Hayden DENTON SEND OUTS Final Result Performing Organization Address [facility] [[email or web address]] de Phone Number [facility] [address] [address], [place] [phone] * OSMOLALITY (06/13/2024 1:05 PM HOT CAR OPERATOR) OSMOLALITY (SERUM) 294 278 - 305 mOsm/kg 06/17/2024 6:59 AM HOT CAR OPERATOR [facility] Blood BLOOD SPECIMEN / Unknown Non-Lab Venipuncture / Unknown 06/13/2024 1:05 PM HOT CAR OPERATOR 06/13/2024 1:36 PM HOT CAR OPERATOR Hayden DENTON CHEMISTRY Final Result Performing Organization Address [facility] Phone Number [facility] [address] [phone], [place] [phone] * MAGNESIUM (06/13/2024 1:05 PM HOT CAR OPERATOR) Only the most recent of2 resultswithin the time period is included. MAGNESIUM 2.4 1.5 - 2.5 mg/dL 06/16/2024 3:19 PM HOT CAR OPERATOR [facility] Blood BLOOD SPECIMEN / Unknown Non-Lab Venipuncture / Unknown 06/13/2024 1:05 PM HOT CAR OPERATOR 06/13/2024 1:36 PM HOT CAR OPERATOR Hayden DENTON CHEMISTRY Final Result Performing Organization Address [facility] [[email or web address]] de Phone Number [facility] [address] [place] [address], * STAT CK, Total (06/13/2024 1:05 PM HOT CAR OPERATOR) Pathologist [facility] CK,TOTAL 110 26 - 192 IU/L 06/13/2024 10:21 PM HOT CAR OPERATOR [facility] Blood BLOOD SPECIMEN / Unknown Non-Lab Venipuncture / Unknown 06/13/2024 1:05 PM HOT CAR OPERATOR 06/13/2024 2:41 PM HOT CAR OPERATOR us Hayden DENTON CHEMISTRY Final Result [facility] [address] [place] [address], * (ABNORMAL) BASIC METABOLIC PANEL (06/13/2024 1:05 PM HOT CAR OPERATOR) Only the most recent of3 resultswithin the time period is included. Pathologist [facility] SODIUM 138 135 - 146 mmol/L 06/16/2024 3:19 PM HOT CAR OPERATOR [facility] POTASSIUM 2.6(LL) 3.5 - 5.3 mmol/L 06/16/2024 3:19 PM HOT CAR OPERATOR [facility] Comment:Verified by repeat a nalysis. CARBON DIOXIDE 44(H) 20 - 32 mmol/L 06/16/2024 3:19 PM HOT CAR OPERATOR [facility] Comment:Verified by repeat a nalysis. GLUCOSE 85 65 - 99 mg/dL 06/16/2024 3:19 PM HOT CAR OPERATOR [facility] Comment: Fasting reference interval CALCIUM 14.0(HH) 8.6 - 10.2 mg/dL 06/16/2024 3:19 PM HOT CAR OPERATOR [facility] Comment:Verified by repeat a nalysis. CREATININE 4.26(H) 0.50 - 0.97 mg/dL 06/16/2024 3:19 PM HOT CAR OPERATOR [facility] BUN/CREATININE RATIO 11 6 - 22 (calc) 06/16/2024 3:19 PM HOT CAR OPERATOR [facility] EGFR 13(L) > OR = 60 mL/min/1. 73m2 06/16/2024 3:19 PM HOT CAR OPERATOR [facility] UREA NITROGEN (BUN) 46(H) 7 - 25 mg/dL 06/16/2024 3:19 PM HOT CAR OPERATOR [facility] ELECTROLYTE BALANCE SEE NOTE 7 - 17 mmol/L (calc) 06/16/2024 3:19 PM HOT CAR OPERATOR [facility] Comment: Result not calculated because one or more required values exceed analytical limits. CHLORIDE <80(L) 98 - 110 mmol/L 06/16/2024 3:19 PM HOT CAR OPERATOR [facility] Comment:Verified by repeat a nalysis. Blood BLOOD SPECIMEN / Unknown Non-Lab Venipuncture / Unknown 06/13/2024 1:05 PM HOT CAR OPERATOR 06/13/2024 1:36 PM HOT CAR OPERATOR Hayden DENTON CHEMISTRY Final Result [facility] [address] [place] [address], * SCAN-LABORATORY REPORT (06/13/2024 12:00 AM HOT CAR OPERATOR) us Scanner OTHER Final Result * XR ANKLE 3 VIEWS LEFT (05/27/2024 3:04 PM HOT CAR OPERATOR) Anatomical Region Laterality Modality ANKLES, ANKLE L Computed Radiogr aphy 05/27/2024 3:44 PM HOT CAR OPERATOR Impressions 05/27/2024 3:44 PM HOT CAR OPERATOR 1. Negative left ankle series. Dictated by César Nuñez MD @ May 27 2024 3:44PM (Electronically Signed) [email or web address] Narrative 05/27/2024 3:44 PM HOT CAR OPERATOR For Patients: As a result of the Century Cures Act, medical imaging exams and procedure reports are released immediately into your electronic medical record. You may view this report before your referring provider. If you have questions, please contact your health care provider. INDICATION: Acute left ankle pain. TECHNIQUE: Ankle radiograph 3 views COMPARISON: None FINDINGS: Bones: Alignment is normal. No acute fractures or aggressive osseous lesions seen. Joint spaces: The visualized tibiotalar, subtalar, and midfoot joints are unremarkable in appearance. No joint effusion is seen. Soft tissues: Kager`s fat pad is normal in appearance. The Achilles` tendon is normal in appearance. No radiopaque foreign bodies are noted. Procedure Note César Nuñez MD - 05/27/2024 For Patients: As a result of the Cures Act, medical imagingexams and procedure reports are released immediately into your electronicmedical record. You may view this report before your referring provider.If you have questions, please contact your health care provider. INDICATION: Acute left ankle pain. TECHNIQUE: Ankle radiograph 3 views COMPARISON: None FINDINGS: Bones: Alignment is normal. No acute fractures or aggressive osseouslesions seen. Joint spaces: The visualized tibiotalar, subtalar, and midfoot joints areunremarkable in appearance. No joint effusion is seen. Soft tissues: Kager`s fat pad is normal in appearance. The Achilles`tendon is normal in appearance. No radiopaque foreign bodies are noted. IMPRESSION: 1. Negative left ankle series. Dictated by César Nuñez MD @ May 27 2024 3:44PM (Electronically Signed) [email or web address] Gregg Corrales MD GENERAL IMAGING Final R esult * XR KNEE 3 VIEWS LEFT (05/27/2024 3:04 PM HOT CAR OPERATOR) Anatomical Region Laterality Modality KNEES, KNEE L Computed Radiogr aphy 05/27/2024 3:45 PM HOT CAR OPERATOR Impressions 05/27/2024 3:45 PM HOT CAR OPERATOR 1. Negative left knee series. Dictated by César Nuñez MD @ May 27 2024 3:45PM (Electronically Signed) [email or web address] Narrative 05/27/2024 3:45 PM HOT CAR OPERATOR For Patients: As a result of the Cures Act, medical imaging exams and procedure reports are released immediately into your electronic medical record. You may view this report before your referring provider. If you have questions, please contact your health care provider. INDICATION: Acute pain of left knee. TECHNIQUE: Knee radiographs 3 views COMPARISON: None FINDINGS: Bones: Alignment is normal. No acute fractures or aggressive osseous lesions seen. Joint spaces: No significant joint effusion is seen. The joint spaces of the medial, lateral, and patellofemoral compartments are unremarkable. Soft tissues: Unremarkable. No radiopaque foreign bodies are noted. Procedure Note César Nuñez MD - 05/27/2024 For Patients: As a result of the Cures Act, medical imagingexams and procedure reports are released immediately into your electronicmedical record. You may view this report before your referring provider.If you have questions, please contact your health care provider. INDICATION: Acute pain of left knee. TECHNIQUE: Knee radiographs 3 views COMPARISON: None FINDINGS: Bones: Alignment is normal. No acute fractures or aggressive osseouslesions seen. Joint spaces: No significant joint effusion is seen. The joint spaces ofthe medial, lateral, and patellofemoral compartments are unremarkable. Soft tissues: Unremarkable. No radiopaque foreign bodies are noted. IMPRESSION: 1. Negative left knee series. Dictated by César Nuñez MD @ May 27 2024 3:45PM (Electronically Signed) [email or web address] Stephon Corrales MD GENERAL IMAGING Final R esult * (ABNORMAL) CBC W PLT NO DIFF (05/14/2024 12:13 PM HOT CAR OPERATOR) WHITE BLOOD CELL COUNT 4.9 3.8 - 10.8 Thousand/u L [facility] RED BLOOD CELL COUNT 3.98 3.80 - 5.10 Million/uL [facility] HEMOGLOBIN 11.0(L) 11.7 - 15.5 g/dL [facility] HEMATOCRIT 33.6(L) 35.0 - 45.0 % [facility] MCV 84.4 80.0 - 100.0 fL [facility] MCH 27.6 27.0 - 33.0 pg [facility] MCHC 32.7 32.0 - 36.0 g/dL [facility] Comment: For adults, a slight decrease in the calculated MCHC value (in the range of 30 to 32 g/dL) is most likely not clinically significant; however, it should be interpreted with caution in correlation with other red cell parameters and the patient's clinical condition. RDW 13.2 11.0 - 15.0 % [facility] PLATELET COUNT 440(H) 140 - 400 Thousand/u L [facility] MPV 11.1 7.5 - 12.5 fL [facility] Blood BLOOD SPECIMEN / Unknown 05/14/2024 12:13 PM HOT CAR OPERATOR 05/14/2024 12:13 PM HOT CAR OPERATOR Narrative [facility] - 05/15/2024 3:17 AM HOT CAR OPERATOR FASTING:NO FASTING: NO Gregg Corrales MD HEMATOLOGY Final R esult [facility] [address] [place] [address], [employer] [facility] [address] [place] [address] * XR RIBS RIGHT AND PA CHEST MINIMUM 3 VIEWS (05/14/2024 12:08 PM HOT CAR OPERATOR) Anatomical Region Laterality Modality RIBS, RIBS R, CHEST Computed Rad iography 05/14/2024 3:38 PM HOT CAR OPERATOR Impressions 05/14/2024 3:38 PM HOT CAR OPERATOR Unremarkable chest and right ribs. Dictated by César Nuñez MD @ May 14 2024 3:38PM (Electronically Signed) [email or web address] Narrative 05/14/2024 3:38 PM HOT CAR OPERATOR For Patients: As a result of the Century Cures Act, medical imaging exams and procedure reports are released immediately into your electronic medical record. You may view this report before your referring provider. If you have questions, please contact your health care provider. INDICATION: Rib pain on right side. TECHNIQUE: Chest and right ribs 3 views. COMPARISON: Chest radiographs dated 12/04/2023. FINDINGS: Cardiovascular and mediastinum: Heart size and vasculature are normal in caliber and appearance. Mediastinum is within normal limits. Lungs and pleural spaces: Lungs are clear. No sign of infiltrate or mass. No sign of pleural effusion. No pneumothorax. Bones and soft tissues: Detailed oblique images of the right ribs demonstrate no fractures or bone lesions. Procedure Note César Nuñez MD - 05/14/2024 For Patients: As a result of the Century Cures Act, medical imagingexams and procedure reports are released immediately into your electronicmedical record. You may view this report before your referring provider.If you have questions, please contact your health care provider. INDICATION: Rib pain on right side. TECHNIQUE: Chest and right ribs 3 views. COMPARISON: Chest radiographs dated 12/04/2023. FINDINGS: Cardiovascular and mediastinum: Heart size and vasculature are normal incaliber and appearance. Mediastinum is within normal limits. Lungs and pleural spaces: Lungs are clear. No sign of infiltrate ormass. No sign of pleural effusion. No pneumothorax. Bones and soft tissues: Detailed oblique images of the right ribsdemonstrate no fractures or bone lesions. IMPRESSION: Unremarkable chest and right ribs. Dictated by César Nuñez MD @ May 14 2024 3:38PM (Electronically Signed) [email or web address] Gaming Gregg Corrales MD GENERAL IMAGING Final R esult * SCAN-ELECTROCARDIOGRAM EKG (04/23/2024 12:00 AM CDT) us Scanner OTHER Final Result * ANTI HCV (09/19/2021 12:39 PM CDT) HEPATITIS C ANTIBODY Non-React kajal Non-React kajal 09/19/2021 10:46 PM CDT [facility] Comment:Antibodies to HCV no t detected; does not exclude the possibility of exposure to HCV. Blood BLOOD SPECIMEN / Unknown Venipuncture / Unknown 09/19/2021 12:39 PM CDT 09/19/2021 12:39 PM CDT Gregg Corrales MD SEND OUTS Final R esult [facility] [address] [place] [address], [place] * ANTI HIV 1/2 (09/19/2021 12:39 PM CDT) HIV-1/HIV-2 ANTIBODY Non-Reacti ve Non-Reacti ve 09/19/2021 10:59 PM CDT [facility] Comment:HIV-1 p24 and HIV-1/ HIV-2 Ab not detected. Blood BLOOD SPECIMEN / Unknown Venipuncture / Unknown 09/19/2021 12:39 PM CDT 09/19/2021 12:39 PM CDT us Gregg Corrales MD SEND OUTS Final R esult [facility] [address] [place] [address], [place] from Last 3 Months or Most Recently Relevant to Health Maintenance Insurance MEDICARE PART A HB ONLY [facility] REFERRAL Member Subscriber Plan / Payer (Ef fective 2024-Present) Name:Lorraine Galindo Relation to Subscriber:Self Name:Lorraine Galindo Payer ID:Not on file Group ID:Not on file Type:Not on file Address: [facility] INTERNAL TRACKING MEDICARE [place] ONLY MEDICARE PPS Advance Directives * Full Code (Latest Code Status on File) Date Activated Date Inactivated Comments 02/29/2024 4:03 PM 03/01/2024 3:31 PM Question Answer Comments Code Status Discussion: Reviewed Preferences * Full Code Date Activated Date Inactivated Comments 02/13/2024 11:15 PM 02/15/2024 3:28 PM Question Answer Comments Code Status Discussion: Reviewed Preferences * Full Code Date Activated Date Inactivated Comments 01/20/2024 11:45 AM 01/21/2024 5:29 PM Question Answer Comments Code Status Discussion: Reviewed Preferences * Full Code Date Activated Date Inactivated Comments 12/24/2023 8:16 PM 12/25/2023 5:27 PM Question Answer Comments Code Status Discussion: Reviewed Preferences * Full Code Date Activated Date Inactivated Comments 12/09/2023 11:39 AM 12/10/2023 11:30 AM Question Answer Comments Code Status Discussion: Reviewed Preferences Care Teams Change Control Manager Relationship Specialty [place] [address] [place] [address] PCP - General Family Practice 07/21/17 Neha Chavez [address] [place] [address] Primary Care RN Care Management Registered Nurse 08/13/17 [facility], [address] [place] [address] 03/19/23 Robles Long MD [address] [place] [address] Surgery - General 08/20/23 Hayden Benavides MBBS [address] [place] [address] Nephrology 02/28/24
--- OUTSIDE RECORDS SUMMARY | 2024-07-08 17:31 | XMS_ITS | Clinical Summary ---
Author Organization [facility] Address [address] [place] [id number] Care Team Providers Care Nurse Practitioner Adult Name Role Phone Gregg Corrales MD Primary [...] continuing infusion at lower rate. Iron Sucrose Anxiety,Hives High 09/23/2017 Other reaction(s): Edema, Edema, Gastrointestinal, GI intolerance, GI Upset, Irritation At Inj Site, Other (see comments) Ondansetron Other (See Comments) 04/29/2023 Patient refused to take because it can make QT long and has history of long QT. Medications magnesium oxide (MAG-OX) 400 MG tablet Take 400 mg by mouth 3 times daily (with meals). 03/06/20 17 Active ferrous sulfate 325 (65 Fe) MG TBEC EC tablet Take 325 mg by mouth 3 times daily (with meals). With food or snack Active hydrOXYzine HCl (ATARAX) 25 MG tabletIndicatio ns:Acute bilateral low back pain without sciatica Take 1-2 tablets (25-50 mg) by mouth every 6 hours as needed for other (adjuvant pain). 30 tablet 03/12/20 24 Active senna-docusate (SENOKOT-S/KAVITHA COLACE) 8.6-50 MG tabletIndicatio ns:Closed fracture of single ramus of right pubis, with delayed healing, subsequent encounter Take 1 tablet by mouth 2 times daily as needed for constipation . 03/23/20 Active gabapentin (NEURONTIN) 300 MG capsule Take 300 mg by mouth 3 times daily. Am, Lunch, Bed-time Active albuterol (PROAIR HFA/PROVENTIL HFA/VENTOLIN HFA) 108 (90 Base) MCG/ACT inhaler Inhale 1-2 puffs into the lungs every 4 hours as needed for shortness of breath, wheezing or cough. Active ondansetron (ZOFRAN) 4 MG tablet Take 4 mg by mouth every 8 hours as needed for nausea or vomiting. Active traMADol (ULTRAM) 50 MG tablet Take 50 mg by mouth 2 times daily as needed for severe pain. Active gabapentin (NEURONTIN) 100 MG capsule Take 100 mg by mouth at bedtime. with 300 mg capsule Active methocarbamol (ROBAXIN) 750 MG tablet Take 750 mg by mouth 4 times daily as needed for muscle spasms. Active potassium chloride deanne ER (KLOR-CON M20) 20 MEQ CR tabletIndicatio ns:Hypokalemia Take 2 tablets (40 mEq) by mouth 3 times daily. 06/20/20 Active Multiple Vitamins-Iron (ONE DAILY MULTIVITAMIN/IR ON PO) Take 1 tablet by mouth daily. Active multivitamin, therapeutic (THERA-VIT) TABS Take 1 tablet by mouth daily 025 Discontinued(Me d Rec(No AVS / No eCancel)) oxyCODONE (ROXICODONE) 5 MG tablet Take 5 mg by mouth every 6 hours as needed for severe pain. 024 Discontinued(Me d Rec(No AVS / No eCancel)) potassium chloride deanne ER (KLOR-CON M20) 20 MEQ CR tablet Take 80 mEq by mouth 3 times daily. 024 Discontinued spironolactone (ALDACTONE) 50 MG tablet Take 50 mg by mouth at bedtime. 024 Discontinued(St op at Discharge) Active Problems Problem Noted Date Diagnosed Date Hyponatremia 07/01/2024 Intractable nausea and vomiting 07/01/2024 Headache, unspecified headache type 07/01/2024 Alkalosis 05/29/2024 Hypochloremia 04/23/2024 Chronic pain in female pelvis 04/02/2024 Inferior pubic ramus fractur e, right, closed, initial encounter 03/21/2024 Right hip pain 03/20/2024 Acute renal failure superimp osed on chronic kidney disease, unspecified acute renal failure type, unspecified CKD stage 03/20/2024 Hypercalcemia 03/06/2024 BARBARA (acute kidney injury) 03/06/2024 Acute kidney injury 01/31/2023 Metabolic alkalosis 11/04/2022 [id number] kidney injury 11/04/2022 Myalgia, multiple sites 07/29/2022 [...] with suicidal ideation 03/15/2015 Hypokalemic alkalosis 01/17/2015 Overview (04/26/2015): Diagnosis updated by automated process. Provider to review and confirm. Acute pain of left knee 07/06/2010 Encounters Date Type Department Care Team Description 07/01/2024 2:04 PM STUDENT COUNSELOR - 07/03/2024 1:06 PM STUDENT COUNSELOR Hospital Encounter [place] [address] [facility] [address] [place] [phone] Jesus Bobby MD Baxa, Alexander, DO Intractable nausea and vomiting; Gitelman syndrome; Hypokalemia; Hyponatremia; Hypercalcemia; BARBARA (acute kidney injury); Headache, unspecified headache type; Prolonged Q-T interval on ECG Discharge Disposition: Left Against Medical Advice 07/01/2024 Travel 06/30/2024 MyC Medical Advice [facility] [address] [facility] [address] [address] Lucia Mora 06/24/2024 Transcribe Orders GENERIC EXTERNAL DATA DEPARTMENT Provider, Generic External Data Hypokalemia (Primary Dx); Alkalosis 06/16/2024 5:01 PM STUDENT COUNSELOR - 06/20/2024 1:46 PM STUDENT COUNSELOR Hospital Encounter [place] [address] [facility] [address] [place] [address] Jamil Madison MD Sebring, Daniel L, MD Hypokalemic alkalosis (Primary Dx); Hypokalemia; Acute kidney injury; Knee injury, left, initial encounter Discharge Disposition: Home or Self Care 06/16/2024 Travel 06/13/2024 Medical Correspondence [facility] Information Management [address] [facility] [address] [place] [address] Scan, Non-Provider 05/29/2024 1:58 PM STUDENT COUNSELOR - 05/31/2024 5:58 PM STUDENT COUNSELOR Hospital Encounter [facility] [address] [place] [address] Jamil Carlin MD Bray, Scott, MD Hypokalemia; BARBARA (acute kidney injury); Hypercalcemia; Alkalosis; Gitelman disease Discharge Disposition: Left Against Medical Advice 05/29/2024 Travel 05/15/2024 2:33 PM STUDENT COUNSELOR - 05/19/2024 12:20 PM STUDENT COUNSELOR Hospital Encounter [facility] [address] [place] [address] Lucio Anthony MD Cabrera, Jesus F, MD Hypokalemia; Hypercalcemia; BARBARA (acute kidney injury) Discharge Disposition: Home or Self Care 05/15/2024 Travel 04/23/2024 11:58 AM CDT - 04/23/2024 7:05 PM CDT Emergency [facility] [address] [place] [address] Jerry Maya MD Lindenbaum, Elan, MD Khan, Sana, MD BARBARA (acute kidney injury); Hypokalemia; Hypochloremia; Right hip pain Discharge Disposition: Home or Self Care 04/23/2024 Travel from Last 3 Months Family History [...] you got money to buy more? No 07/02/2024 Within the past 12 months, d id the food you bought just not last and you didn t have money to get more? No 07/02/2024 Housing Stability Answer Date Recorded Do you have housing? (Housin g is defined as stable permanent housing and does not include staying ouside in a car, in a tent, in an abandoned building, in an overnight intermediate, or couch-surfing.) Yes 07/02/2024 Are you worried about losing your housing? No 07/02/2024 Financial Resource Strain Answer Date R ecorded Within the past 12 months, h ave you or your family members you live with been unable to get utilities (heat, electricity) when it was really needed? No 07/02/2024 Transportation Needs Answer Date Record ed Within the past 12 months, h as lack of transportation kept you from medical appointments, getting your medicines, non-medical meetings or appointments, work, or from getting things that you need? No 07/02/2024 Interpersonal Safety Answer Date Record ed Do you feel physically and e motionally safe where you currently live? Yes 07/02/2024 Within the past 12 months, h ave you been hit, slapped, kicked or otherwise physically hurt by someone? No 07/02/2024 Within the past 12 months, h ave you been humiliated or emotionally abused in other ways by your partner or ex-partner? 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 Not on file Not on file Last Filed Vital Signs Vital Sign Reading Time Taken Comments Blood Pressure 123/71 07/03/2024 9:07 AM STUDENT COUNSELOR Pulse 87 07/03/2024 9:07 AM STUDENT COUNSELOR Temperature 36.7 C (98 F) 07/03/2024 9:07 AM STUDENT COUNSELOR Respiratory Rate 16 07/03/2024 9:07 AM STUDENT COUNSELOR Oxygen Saturation 99% 07/03/2024 9:07 AM STUDENT COUNSELOR Inhaled Oxygen Concentration - - Weight 49 kg (108 lb) 07/02/2024 5:51 PM STUDENT COUNSELOR Height 170.2 cm (5' 7) 07/01/2024 11:26 AM STUDENT COUNSELOR Body Mass Index 16.92 07/01/2024 11:26 AM STUDENT COUNSELOR Plan of Treatment Upcoming Encounters Date Type Department Care Team (Late st Contact Info) Description 07/09/2024 11:00 AM STUDENT COUNSELOR Virtual Visit [facility] [address] [facility] [address] [address] [place] [address] [place] [address] [place] [facility] [address] [place] [phone] [place], [place] [phone] Health Maintenance Due Date Last Done Comments ANNUAL REVIEW OF HM ORDERS 1991 LIPID 1991 HIV SCREENING 2006 MEDICARE ANNUAL WELLNESS VISIT 2009 HPV IMMUNIZATION (3 - 3-dose series) 08/07/2011 05/15/2011, 04/19/2009 PAP 2012 ADVANCE CARE PLANNING 03/08/2023 03/08/2018 COVID-19 Vaccine ( - season) 2024 INFLUENZA VACCINE (#1) 2024 PHQ-2 (once per calendar year) 2024 URINE DRUG SCREEN 03/21/2025 03/21/2024 MICROALBUMIN 05/29/2025 05/29/2024 BMP 07/03/2025 07/03/2024, 01/2025, 07/01/2024, Additional history exists DTAP/TDAP/TD IMMUNIZATION (8 - Td or Tdap) 08/30/2030 08/30/2020, 04/19/2009, 11/16/2003, Additional history exists RSV VACCINE (1 - 1-dose 75+ series) 2066 HEPATITIS B IMMUNIZATION Completed 993, 04/27/1993, 04/27/1993, Additional history exists MENINGITIS IMMUNIZATION Completed 04/19/2009 HEPATITIS C SCREENING Completed 09/19/2021 URINALYSIS Completed 07/01/2024, 10/2023, 01/31/2023, Additional history exists Pneumococcal Vaccine: Pediatrics (0 to 5 Years) and At-Risk Patients (6 to 49 Years) Aged Out No longer eligible based on patient's age to complete this topic RSV MONOCLONAL ANTIBODY Aged Out No l onger eligible based on patient's age to complete this topic Procedures Procedure Name Priority Date/Time Associated Diagnosis Comments MAGNESIUM Routine 07/03/2024 5:58 AM STUDENT COUNSELOR FERRITIN Routine 07/03/2024 5:58 AM STUDENT COUNSELOR IRON AND IRON BINDING CAPACITY Routine 07/03/2024 5:58 AM STUDENT COUNSELOR BASIC METABOLIC PANEL Routine 07/03/2024 5:58 AM STUDENT COUNSELOR CBC WITH PLATELETS Routine 07/03/2024 5: 58 AM STUDENT COUNSELOR POTASSIUM Timed 07/03/2024 5:58 AM STUDENT COUNSELOR POTASSIUM Timed 07/02/2024 11:55 PM STUDENT COUNSELOR POTASSIUM STAT 07/02/2024 5:36 PM STUDENT COUNSELOR POTASSIUM STAT 07/02/2024 12:13 PM STUDENT COUNSELOR BICARBONATE URINE Add-On 07/02/2024 9:5 3 AM STUDENT COUNSELOR OSMOLALITY Add-On 07/02/2024 8:30 AM STUDENT COUNSELOR MAGNESIUM STAT 07/02/2024 8:30 AM STUDENT COUNSELOR CBC WITH PLATELETS STAT 07/02/2024 8: 30 AM STUDENT COUNSELOR BASIC METABOLIC PANEL STAT 07/02/2024 8:30 AM STUDENT COUNSELOR MAGNESIUM Add-On 07/01/2024 11:34 PM STUDENT COUNSELOR BASIC METABOLIC PANEL STAT 07/01/2024 11:[address] ABDOMEN PELVIS W/O CONTRAST STAT 07/01/2024 9:17 PM STUDENT COUNSELOR FRACTIONAL EXCRETION OF SODIUM STAT 07/01/2024 9:07 PM STUDENT COUNSELOR OSMOLALITY, RANDOM URINE Add-On 025 9:07 PM STUDENT COUNSELOR POTASSIUM RANDOM URINE Add-On 9:07 PM STUDENT COUNSELOR CHLORIDE RANDOM URINE STAT 07/01/2024 9:07 PM STUDENT COUNSELOR FRACTIONAL EXCRETION OF SODIUM STAT 07/01/2024 9:07 PM STUDENT COUNSELOR ROUTINE UA WITH MICROSCOPIC REFLEX TO CULTURE STAT 07/01/2024 9:07 PM STUDENT COUNSELOR PHOSPHORUS Add-On 07/01/2024 7:18 PM STUDENT COUNSELOR BASIC METABOLIC PANEL STAT 07/01/2024 7:18 PM STUDENT COUNSELOR PTH RELATED PEPTIDE TEST STAT 025 7:18 PM STUDENT COUNSELOR PARATHYROID HORMONE INTACT STAT 07/01/2024 7:18 PM STUDENT COUNSELOR IONIZED CALCIUM STAT 07/01/2024 3:35 PM STUDENT COUNSELOR CBC WITH PLATELETS & DIFFERENTIAL STAT 07/01/2024 2:14 PM STUDENT COUNSELOR VITAMIN D DEFICIENCY SCREENING Add-On 07/01/2024 2:14 PM STUDENT COUNSELOR LIPASE STAT 07/01/2024 2:14 PM STUDENT COUNSELOR HEPATIC FUNCTION PANEL STAT 2:14 PM STUDENT COUNSELOR TROPONIN T, HIGH SENSITIVITY STAT 07/01/2024 2:14 PM STUDENT COUNSELOR MAGNESIUM STAT 07/01/2024 2:14 PM STUDENT COUNSELOR EXTRA BLUE TOP TUBE STAT 07/01/2024 2 :14 PM STUDENT COUNSELOR CBC WITH PLATELETS AND DIFFERENTIAL STAT 07/01/2024 2:14 PM STUDENT COUNSELOR EXTRA TUBE STAT 07/01/2024 2:14 PM STUDENT COUNSELOR HCG QUALITATIVE STAT 07/01/2024 2:14 PM STUDENT COUNSELOR BASIC METABOLIC PANEL STAT 07/01/2024 2:14 PM STUDENT COUNSELOR EKG 12-LEAD, TRACING ONLY STAT 07/01/2024 11:37 AM STUDENT COUNSELOR INFLUENZA A/B, RSV AND SARS-COV2 PCR STAT 07/01/2024 11:32 AM STUDENT COUNSELOR CBC WITH PLATELETS Routine 06/20/2024 7: 23 AM STUDENT COUNSELOR RENAL PANEL Routine 06/20/2024 7:23 AM STUDENT COUNSELOR MAGNESIUM Routine 06/20/2024 7:23 AM STUDENT COUNSELOR POTASSIUM RANDOM URINE Routine 5:13 PM STUDENT COUNSELOR CHLORIDE RANDOM URINE Routine 06/19/2024 5:13 PM STUDENT COUNSELOR SODIUM RANDOM URINE Routine 06/19/2024 5 :13 PM STUDENT COUNSELOR BASIC METABOLIC PANEL Routine 06/19/2024 6:36 AM STUDENT COUNSELOR PHOSPHORUS Routine 06/19/2024 6:36 AM STUDENT COUNSELOR MAGNESIUM Routine 06/19/2024 6:36 AM STUDENT COUNSELOR BASIC METABOLIC PANEL Routine 06/18/2024 7:04 PM STUDENT COUNSELOR EKG 12-LEAD, TRACING ONLY Routine 06/18/2024 11:14 AM STUDENT COUNSELOR CBC WITH PLATELETS Routine 06/18/2024 6: 08 AM STUDENT COUNSELOR BASIC METABOLIC PANEL Timed 06/18/2024 6:08 AM STUDENT COUNSELOR PHOSPHORUS Routine 06/18/2024 6:08 AM STUDENT COUNSELOR MAGNESIUM Routine 06/18/2024 6:08 AM STUDENT COUNSELOR BASIC METABOLIC PANEL Timed 06/17/2024 10:14 PM STUDENT COUNSELOR POTASSIUM Timed 06/17/2024 7:28 PM STUDENT COUNSELOR PHOSPHORUS Timed 06/17/2024 7:28 PM STUDENT COUNSELOR OSMOLALITY Routine 06/17/2024 1:48 PM STUDENT COUNSELOR POTASSIUM Timed 06/17/2024 1:48 PM STUDENT COUNSELOR BASIC METABOLIC PANEL Timed 06/17/2024 1:48 PM STUDENT COUNSELOR CREATININE RANDOM URINE Routine 06/17/20 1:39 PM STUDENT COUNSELOR POTASSIUM RANDOM URINE Routine 1:39 PM STUDENT COUNSELOR OSMOLALITY, RANDOM URINE Routine 024 1:39 PM STUDENT COUNSELOR CHLORIDE RANDOM URINE Routine 06/17/2024 1:39 PM STUDENT COUNSELOR SODIUM RANDOM URINE Routine 06/17/2024 1 :39 PM STUDENT COUNSELOR MR KNEE LEFT W/O CONTRAST Routine 06/17/2024 11:35 AM STUDENT COUNSELOR POTASSIUM Timed 06/17/2024 10:11 AM STUDENT COUNSELOR PHOSPHORUS Routine 06/17/2024 6:52 AM STUDENT COUNSELOR MAGNESIUM Routine 06/17/2024 6:52 AM STUDENT COUNSELOR CBC WITH PLATELETS Routine 06/17/2024 6: 52 AM STUDENT COUNSELOR BASIC METABOLIC PANEL Routine 06/17/2024 6:52 AM STUDENT COUNSELOR POTASSIUM Timed 06/17/2024 1:33 AM STUDENT COUNSELOR PHOSPHORUS Add-On 06/16/2024 7:31 PM STUDENT COUNSELOR MAGNESIUM Add-On 06/16/2024 7:31 PM STUDENT COUNSELOR BASIC METABOLIC PANEL STAT 06/16/2024 7:31 PM STUDENT COUNSELOR XR KNEE LEFT 3 VIEWS STAT 06/16/2024 6:16 PM STUDENT COUNSELOR CBC WITH PLATELETS & DIFFERENTIAL STAT 06/16/2024 5:53 PM STUDENT COUNSELOR CBC WITH PLATELETS AND DIFFERENTIAL STAT 06/16/2024 5:53 PM STUDENT COUNSELOR TROPONIN T, HIGH SENSITIVITY STAT 06/16/2024 5:53 PM STUDENT COUNSELOR EKG 12-LEAD, TRACING ONLY STAT 06/16/2024 5:40 PM STUDENT COUNSELOR PHOSPHORUS Timed 05/31/2024 5:[address] KNEE LEFT W/O CONTRAST Routine 05/31/2024 2:33 PM STUDENT COUNSELOR PARATHYROID HORMONE INTACT Routine 05/31/2024 8:35 AM STUDENT COUNSELOR PHOSPHORUS Routine 05/31/2024 8:35 AM STUDENT COUNSELOR MAGNESIUM Routine 05/31/2024 8:35 AM STUDENT COUNSELOR COMPREHENSIVE METABOLIC PANEL Routine 05/31/2024 8:35 AM STUDENT COUNSELOR AMMONIA Routine 05/31/2024 8:35 AM STUDENT COUNSELOR EKG 12-LEAD, TRACING ONLY Routine 05/30/2024 11:41 AM STUDENT COUNSELOR POTASSIUM Timed 05/30/2024 10:08 AM STUDENT COUNSELOR PHOSPHORUS Routine 05/30/2024 8:02 AM STUDENT COUNSELOR MAGNESIUM Routine 05/30/2024 8:02 AM STUDENT COUNSELOR CBC WITH PLATELETS Routine 05/30/2024 8: 02 AM STUDENT COUNSELOR BASIC METABOLIC PANEL Timed 05/30/2024 8:02 AM STUDENT COUNSELOR POTASSIUM Timed 05/30/2024 4:25 AM STUDENT COUNSELOR BASIC METABOLIC PANEL Timed 05/29/2024 10:00 PM STUDENT COUNSELOR PHOSPHORUS Add-On 05/29/2024 4:50 PM STUDENT COUNSELOR POTASSIUM STAT 05/29/2024 4:50 PM STUDENT COUNSELOR XR ANKLE LEFT G/E 3 VIEWS STAT 05/29/2024 4:02 PM STUDENT COUNSELOR XR KNEE LEFT 3 VIEWS STAT 05/29/2024 4:02 PM STUDENT COUNSELOR EXTRA RED TOP TUBE STAT 05/29/2024 2: 41 PM STUDENT COUNSELOR EXTRA BLUE TOP TUBE STAT 05/29/2024 2 :41 PM STUDENT COUNSELOR ALBUMIN RANDOM URINE QUANTITATIVE STAT 05/29/2024 2:41 PM STUDENT COUNSELOR ROUTINE UA WITH MICROSCOPIC STAT 05/29/2024 2:41 PM STUDENT COUNSELOR PROTEIN RANDOM URINE STAT 05/29/2024 2:41 PM STUDENT COUNSELOR CHLORIDE RANDOM URINE STAT 05/29/2024 2:41 PM STUDENT COUNSELOR POTASSIUM RANDOM URINE STAT 2:41 PM STUDENT COUNSELOR SODIUM RANDOM URINE STAT 05/29/2024 2 :41 PM STUDENT COUNSELOR EXTRA TUBE STAT 05/29/2024 2:41 PM STUDENT COUNSELOR TSH WITH FREE T4 REFLEX STAT 05/29/20 24 2:41 PM STUDENT COUNSELOR MAGNESIUM STAT 05/29/2024 2:41 PM STUDENT COUNSELOR COMPREHENSIVE METABOLIC PANEL STAT 05/29/2024 2:41 PM STUDENT COUNSELOR CBC WITH PLATELETS STAT 05/29/2024 2: 41 PM STUDENT COUNSELOR BLOOD GAS VENOUS STAT 05/29/2024 2:41 PM STUDENT COUNSELOR EKG 12-LEAD, TRACING ONLY STAT 05/29/2024 2:10 PM STUDENT COUNSELOR SODIUM TIMED URINE Routine 05/19/2024 12 :02 PM STUDENT COUNSELOR POTASSIUM TIMED URINE Routine 05/19/2024 12:00 PM STUDENT COUNSELOR PHOSPHORUS TIMED URINE Routine 11:59 AM STUDENT COUNSELOR MAGNESIUM TIMED URINE Routine 05/19/2024 11:58 AM STUDENT COUNSELOR CHLORIDE TIMED URINE Routine 05/19/2024 11:56 AM STUDENT COUNSELOR CALCIUM TIMED URINE Routine 05/19/2024 1 1:54 AM STUDENT COUNSELOR MAGNESIUM Routine 05/19/2024 7:41 AM STUDENT COUNSELOR CBC WITH PLATELETS Routine 05/19/2024 7: 41 AM STUDENT COUNSELOR RENAL PANEL Routine 05/19/2024 7:41 AM STUDENT COUNSELOR MAGNESIUM Timed 05/18/2024 12:53 PM STUDENT COUNSELOR POTASSIUM Timed 05/18/2024 12:53 PM STUDENT COUNSELOR PHOSPHORUS Timed 05/18/2024 12:53 PM STUDENT COUNSELOR CHLORIDE RANDOM URINE STAT 05/18/2024 10:25 AM STUDENT COUNSELOR POTASSIUM RANDOM URINE STAT 10:25 AM STUDENT COUNSELOR SODIUM RANDOM URINE STAT 05/18/2024 1 0:25 AM STUDENT COUNSELOR MAGNESIUM Routine 05/18/2024 6:51 AM STUDENT COUNSELOR CBC WITH PLATELETS Routine 05/18/2024 6: 51 AM STUDENT COUNSELOR RENAL PANEL Routine 05/18/2024 6:51 AM STUDENT COUNSELOR POTASSIUM Timed 05/17/2024 3:16 PM STUDENT COUNSELOR CBC WITH PLATELETS Routine 05/17/2024 6: 47 AM STUDENT COUNSELOR RENAL PANEL Routine 05/17/2024 6:47 AM STUDENT COUNSELOR MAGNESIUM Routine 05/17/2024 6:47 AM STUDENT COUNSELOR POTASSIUM Timed 05/17/2024 1:37 AM STUDENT COUNSELOR POTASSIUM Timed 05/16/2024 6:29 PM STUDENT COUNSELOR POTASSIUM Timed 05/16/2024 12:33 PM STUDENT COUNSELOR POTASSIUM Timed 05/16/2024 9:47 AM STUDENT COUNSELOR PHOSPHORUS Routine 05/16/2024 7:12 AM STUDENT COUNSELOR MAGNESIUM Routine 05/16/2024 7:12 AM STUDENT COUNSELOR BASIC METABOLIC PANEL Routine 05/16/2024 7:12 AM STUDENT COUNSELOR POTASSIUM Timed 05/16/2024 1:11 AM STUDENT COUNSELOR LACTIC ACID WHOLE BLOOD Routine 05/15/20 7:14 PM STUDENT COUNSELOR POTASSIUM Timed 05/15/2024 7:14 PM STUDENT COUNSELOR CBC WITH PLATELETS & DIFFERENTIAL STAT 05/15/2024 2:54 PM STUDENT COUNSELOR KETONE BETA-HYDROXYBUTYRATE QUANTITATIVE, RAPID Add-On 05/15/2024 2:54 PM STUDENT COUNSELOR MAGNESIUM STAT 05/15/2024 2:54 PM STUDENT COUNSELOR EXTRA BLUE TOP TUBE STAT 05/15/2024 2 :54 PM STUDENT COUNSELOR CBC WITH PLATELETS AND DIFFERENTIAL STAT 05/15/2024 2:54 PM STUDENT COUNSELOR HCG QUALITATIVE STAT 05/15/2024 2:54 PM STUDENT COUNSELOR EXTRA TUBE STAT 05/15/2024 2:54 PM STUDENT COUNSELOR BASIC METABOLIC PANEL STAT 05/15/2024 2:54 PM STUDENT COUNSELOR EKG 12-LEAD, TRACING ONLY STAT 05/15/2024 2:12 PM STUDENT COUNSELOR PARATHYROID HORMONE INTACT STAT 04/23/2024 6:18 PM CDT XR PELVIS 1/2 VIEWS STAT 04/23/2024 2 :[address] CERVICAL SPINE W/O CONTRAST STAT 04/23/2024 1:59 PM CDT XR KNEE RIGHT 1/2 VIEWS STAT 04/23/20 1:59 PM CDT XR FEMUR RIGHT 2 VIEWS STAT 1:57 PM CDT CBC WITH PLATELETS & DIFFERENTIAL STAT 04/23/2024 12:28 PM CDT 1,25 DIHYDROXYVITAMIN D Add-On 04/23/20 12:28 PM CDT EXTRA RED TOP TUBE STAT 04/23/2024 12 :28 PM CDT EXTRA BLUE TOP TUBE STAT 04/23/2024 1 2:28 PM CDT CBC WITH PLATELETS AND DIFFERENTIAL STAT 04/23/2024 12:28 PM CDT MAGNESIUM STAT 04/23/2024 12:28 PM CDT EXTRA TUBE STAT 04/23/2024 12:28 PM CDT TROPONIN T, HIGH SENSITIVITY STAT 04/23/2024 12:28 PM CDT BASIC METABOLIC PANEL STAT 04/23/2024 12:28 PM CDT EKG 12-LEAD, TRACING ONLY STAT 04/23/2024 11:50 AM CDT URINE DRUG SCREEN Routine 03/21/2024 1:2 9 PM CDT from Last 3 Months or Most Recently Relevant to Health Maintenance Results * Potassium (07/03/2024 5:58 AM STUDENT COUNSELOR) Only the most recent of19 resultswithin the time period is included. Potassium 3.4 3.4 - 5.3 mmol/L 07/03/2024 6:51 AM STUDENT COUNSELOR LABORATORY Blood STRUCTURE OF RIGHT HAND / Unknown Venipuncture / Unknown 07/03/2024 5:58 AM STUDENT COUNSELOR 07/03/2024 6:16 AM STUDENT COUNSELOR Michel Dotson DO LAB - BLOOD ORDERABLES Fi nal Result Performing Organization Address City/[facility]/ZIP Co de Phone Number [facility] [address] (1st floor, no room number) [place] [phone] [place] [address] * Magnesium (07/03/2024 5:58 AM STUDENT COUNSELOR) Only the most recent of19 resultswithin the time period is included. Magnesium 1.8 1.7 - 2.3 mg/dL 07/03/2024 6:51 AM STUDENT COUNSELOR LABORATORY Blood STRUCTURE OF RIGHT HAND / Unknown Venipuncture / Unknown 07/03/2024 5:58 AM STUDENT COUNSELOR 07/03/2024 6:16 AM STUDENT COUNSELOR Michel Dotson DO LAB - BLOOD ORDERABLES Fi nal Result [facility] [address] (1st floor, no room number) [place] [phone] * Iron and iron binding capacity (07/03/2024 5:58 AM STUDENT COUNSELOR) Iron 67 37 - 145 ug/dL 07/03/2024 6:51 AM STUDENT COUNSELOR LABORATORY Iron Binding Capacity 284 240 - 430 ug/dL 07/03/2024 6:51 AM STUDENT COUNSELOR LABORATORY Iron Sat Index 24 15 - 46 % 07/03/2024 6:51 AM STUDENT COUNSELOR LABORATORY Blood STRUCTURE OF RIGHT HAND / Unknown Venipuncture / Unknown 07/03/2024 5:58 AM STUDENT COUNSELOR 07/03/2024 6:16 AM STUDENT COUNSELOR Mike Teran MD LAB - BLOOD ORDERABLES Final Result LABORATORY [facility] [address] [facility] (1st floor, no room number) [place] [address] * Ferritin (07/03/2024 5:58 AM STUDENT COUNSELOR) Pathologist [facility] Ferritin 28 6 - 175 ng/mL 07/03/2024 11:52 AM STUDENT COUNSELOR [facility] LABORATORY Blood STRUCTURE OF RIGHT HAND / Unknown Venipuncture / Unknown 07/03/2024 5:58 AM STUDENT COUNSELOR 07/03/2024 7:43 AM STUDENT COUNSELOR Mike Teran MD LAB - BLOOD ORDERABLES Final Result [facility] [address] [facility] [place] [address] * (ABNORMAL) Basic metabolic panel (07/03/2024 5:58 AM STUDENT COUNSELOR) Only the most recent of17 resultswithin the time period is included. Sodium 142 135 - 145 mmol/L 07/03/2024 6:55 AM [facility] Potassium 3.4 3.4 - 5.3 mmol/L 07/03/2024 6:55 AM [facility] Chloride 100 98 - 107 mmol/L 07/03/2024 6:55 AM [facility] Carbon Dioxide (CO2) 31(H) 22 - 29 mmol/L 07/03/2024 6:55 AM [facility] Anion Gap 11 7 - 15 mmol/L 07/03/2024 6:55 AM [facility] Urea Nitrogen 28.4(H) 6.0 - 20.0 mg/dL 07/03/2024 6:55 AM [facility] Creatinine 1.53(H) 0.51 - 0.95 mg/dL 07/03/2024 6:55 AM [facility] GFR Estimate 46(L) >60 mL/min/1.7 3m2 07/03/2024 6:55 AM [facility] Comment:eGFR calculated us2020 CKD-EPI equation. Calcium 9.1 8.8 - 10.4 mg/dL 07/03/2024 6:55 AM [facility] Comment:Reference intervals for this test were updated on 01/08/2024 to reflect our healthy population more accurately. There may be differences in the flagging of prior results with similar values performed with this method. Those prior results can be interpreted in the context of the updated reference intervals. Glucose 91 70 - 99 mg/dL 07/03/2024 6:55 AM [facility] Blood STRUCTURE OF RIGHT HAND / Unknown Venipuncture / Unknown 07/03/2024 5:58 AM STUDENT COUNSELOR 07/03/2024 6:16 AM STUDENT COUNSELOR Michel Dotson DO LAB - BLOOD ORDERABLES Fi nal Result LABORATORY [facility] [address] [facility] Lab (1st floor, no room number) [place] [address], [facility] * (ABNORMAL) CBC with platelets (07/03/2024 5:58 AM STUDENT COUNSELOR) Only the most recent of10 resultswithin the time period is included. WBC Count 6.8 4.0 - 11.0 10e3/uL 07/03/2024 6:22 AM STUDENT COUNSELOR LABORATORY RBC Count 2.70(L) 3.80 - 5.20 10e6/uL 07/03/2024 6:22 AM STUDENT COUNSELOR LABORATORY Hemoglobin 7.3(L) 11.7 - 15.7 g/dL 07/03/2024 6:22 AM [facility] Hematocrit 22.0(L) 35.0 - 47.0 % 07/03/2024 6:22 AM STUDENT COUNSELOR LABOR[facility] MCV 82 78 - 100 fL 07/03/2024 6:22 AM STUDENT COUNSELOR LABORATORY MCH 27.0 26.5 - 33.0 pg 07/03/2024 6:22 AM STUDENT COUNSELOR LABORATORY MCHC 33.2 31.5 - 36.5 g/dL 07/03/2024 6:22 AM STUDENT COUNSELOR LABORATORY RDW 15.0 10.0 - 15.0 % 07/03/2024 6:22 AM [facility] Platelet Count 282 150 - 450 10e3/uL 07/03/2024 6:22 AM STUD[facility] COUNSELOR [facility]ORY Blood STRUCTURE OF RIGHT HAND / Unknown Venipuncture / Unknown 07/03/2024 5:58 AM STUDENT COUNSELOR 07/03/2024 6:16 AM STUDENT COUNSELOR Michel Dotson DO LAB - BLOOD ORDERABLES Fi nal Result Performing Organization Address City/[facility]/ZIP Co de Phone Number LABORATORY [facility] [address] Lab (1st floor, no room number) [place] [address] * Bicarbonate urine (07/02/2024 9:53 AM STUDENT COUNSELOR) Bicarbonate Urine 11 mmol/L 07/03/2024 3:18 AM STUDENT COUNSELOR [facility] Comment: INTERPRETIVE INFORMATION: Bicarbonate (HCO3), Urine Reference Interval has not been defined for Bicarbonate, Urine. See Compliance Statement B: [email or web address] Performed At: [facility] ([facility]) [facility] [place] [address] Deputy Director Of Finance: REJI LOPEZ DO CLIA Number: [id number] Urine MID-STREAM URINE SPECIMEN / Unknown Non-blood Collection / Unknown 07/02/2024 9:53 AM STUDENT COUNSELOR 07/02/2024 9:56 AM STUDENT COUNSELOR Mike Teran MD LAB - URINE ORDERABLES Final Result [facility] Laboratories [address] [place] [address], [place] [phone] * (ABNORMAL) Osmolality (07/02/2024 8:30 AM STUDENT COUNSELOR) Only the most recent of2 resultswithin the time period is included. Osmolality Blood 299(H) 275 - 295 mmol/kg 07/02/2024 1:25 PM STUDENT COUNSELOR [facility] Blood STRUCTURE OF RIGHT HAND / Unknown Venipuncture / Unknown 07/02/2024 8:30 AM STUDENT COUNSELOR 07/02/2024 8:45 AM STUDENT COUNSELOR Narrative [facility] - 07/02/2024 1:25 PM STUDENT COUNSELOR Greater than 385 mmol/kg relates to stupor in hyperglycemia Greater than 400 mmol/kg can relate to seizures Greater than 420 mmol/kg can be lethal Serum Osmalar Gap: Normal <10 Larger suggest unmeasured substances present in serum (ethanol, methanol, isopropanol, mannitol, ethylene glycol). us Mike Teran MD LAB - BLOOD ORDERABLES Final Result Performing Organization Address City/State/[facility] Co de Phone Number [facility] Core Lab [address] [facility], [address] [place] [phone] * CT Abdomen Pelvis w/o Contrast (07/01/2024 9:17 PM STUDENT COUNSELOR) Anatomical Region Laterality Modality Abdomen/Pelvis, SUBRAD CT LUDA DY, UMP CT ABDOMEN PELVIS, RAD CT Computed Tomography 07/01/2024 9:17 PM STUDENT COUNSELOR Impressions 07/01/2024 10:02 PM STUDENT COUNSELOR IMPRESSION: 1. No acute findings or inflammatory changes in the abdomen or pelvis. No bowel obstruction. 2. Subacute right inferior pubic ramus fracture. Narrative 07/01/2024 10:02 PM STUDENT COUNSELOR EXAM: CT ABDOMEN PELVIS W/O CONTRAST LOCATION: [facility] DATE: 07/01/2024 INDICATION: Abdominal pain, nausea, and vomiting. COMPARISON: 12/09/2023 TECHNIQUE: CT scan of the abdomen and pelvis was performed without IV contrast. Multiplanar reformats were obtained. Dose reduction techniques were used. CONTRAST: None. FINDINGS: LOWER CHEST: Unremarkable. HEPATOBILIARY: Normal. PANCREAS: Normal. SPLEEN: Normal. ADRENAL GLANDS: Normal. KIDNEYS/BLADDER: Normal. BOWEL: No obstruction or inflammatory change. Appendix not visualized, although no secondary signs of acute appendicitis. LYMPH NODES: No lymphadenopathy. VASCULATURE: Unremarkable. PELVIC ORGANS: Unremarkable. MUSCULOSKELETAL: Subacute right inferior pubic ramus fracture. Procedure Note Jordan Lanza MD - 07/01/2024 EXAM: CT ABDOMEN PELVIS W/O CONTRAST LOCATION: [facility] DATE: 07/01/2024 INDICATION: Abdominal pain, nausea, and vomiting. COMPARISON: 12/09/2023 TECHNIQUE: CT scan of the abdomen and pelvis was performed without IVcontrast. Multiplanar reformats were obtained. Dose reduction techniqueswere used. CONTRAST: None. FINDINGS: LOWER CHEST: Unremarkable. HEPATOBILIARY: Normal. PANCREAS: Normal. SPLEEN: Normal. ADRENAL GLANDS: Normal. KIDNEYS/BLADDER: Normal. BOWEL: No obstruction or inflammatory change. Appendix not visualized,although no secondary signs of acute appendicitis. LYMPH NODES: No lymphadenopathy. VASCULATURE: Unremarkable. PELVIC ORGANS: Unremarkable. MUSCULOSKELETAL: Subacute right inferior pubic ramus fracture. IMPRESSION: 1. No acute findings or inflammatory changes in the abdomen or pelvis. Nobowel obstruction. 2. Subacute right inferior pubic ramus fracture. Nain Locke DO [facility] [place] [place] CT ORDERABLES Final Result * Fractional Excretion of Sodium (07/01/2024 9:07 PM STUDENT COUNSELOR) Creatinine Urine mg/dL 86.1 mg/dL 07/01/2024 9:36 PM [facility] Sodium Urine mmol/L 22 mmol/L 07/01/2024 9:36 PM [facility] %FENA 0.6 % 07/01/2024 9:36 PM STUDENT COUNSELOR LABORATORY Comment: Adult: <1 percent Indicates prerenal azotemia >3 percent Suggests acute tubular necrosis Neonates: <2.5 percent Suggest prerenal azotemia >2.5 percent Suggest acute tubular necrosis Urine MID-STREAM URINE SPECIMEN / Unknown Non-blood Collection / Unknown 07/01/2024 9:07 PM STUDENT COUNSELOR 07/01/2024 9:11 PM STUDENT COUNSELOR Nain Locke DO LAB - URINE ORDERABLES Final R esult LABORATORY [facility] [address] [facility] Lab (1st floor, no room number) [place] [address] * (ABNORMAL) UA with Microscopic reflex to Culture (07/01/2024 9:07 PM STUDENT COUNSELOR) Color Urine Straw Colorless, Straw, Light Yellow, Yellow 07/01/2024 9:19 PM STUDENT COUNSELOR LABORATORY Appearance Urine Clear Clear 07/01/19 9:19 PM STUDENT COUNSELOR LABORATORY Glucose Urine Negative Negative mg/dL 07/01/2024 9:19 PM STUDENT COUNSELOR LABORATORY Bilirubin Urine Negative Negative 9:19 PM STUDENT COUNSELOR LABORATORY Ketones Urine Negative Negative mg/dL 07/01/2024 9:19 PM STUDENT COUNSELOR LABORATORY Specific [place] Urine 1.016 1.003 - 1.035 07/01/2024 9:19 PM STUDENT COUNSELOR LABORATORY Blood Urine Negative Negative 07/01/2024 9:19 PM STUDENT COUNSELOR LABORATORY pH Urine 6.5 5.0 - 7.0 07/01/2024 9:19 PM STUDENT COUNSELOR LABORATORY Protein Albumin Urine 30(A) Negative mg/dL 07/01/2024 9:19 PM STUDENT COUNSELOR LABORATORY Urobilinogen Urine Normal Normal, 2.0 mg/dL 07/01/2024 9:19 PM STUDENT COUNSELOR LABORATORY Nitrite Urine Negative Negative 07/01/2024 9:19 PM STUDENT COUNSELOR LABORATORY Leukocyte Esterase Urine Negative Negative 07/01/2024 9:19 PM STUDENT COUNSELOR LABORATORY Mucus Urine Present(A) None Seen /LPF 07/01/2024 9:19 PM STUDENT COUNSELOR LABORATORY RBC Urine 1 <=2 /HPF 07/01/2024 9:19 PM STUDENT COUNSELOR LABORATORY WBC Urine 1 <=5 /HPF 07/01/2024 9:19 PM STUDENT COUNSELOR LABORATORY Squamous Epithelials Urine 1 <=1 /HPF 07/01/2024 9:19 PM STUDENT COUNSELOR LABORATORY Urine MID-STREAM URINE SPECIMEN / Unknown Non-blood Collection / Unknown 07/01/2024 9:07 PM STUDENT COUNSELOR 07/01/2024 9:11 PM STUDENT COUNSELOR Narrative [facility] - 07/01/2024 9:19 PM STUDENT COUNSELOR Urine Culture not indicated Nain Locke DO LAB - URINE ORDERABLES Final R esult LABORATORY [facility] [address] [facility] Lab (1st floor, no room number) [place] [address] * Potassium random urine (07/01/2024 9:07 PM STUDENT COUNSELOR) Only the most recent of5 resultswithin the time period is included. Potassium Urine 43.8 mmol/L 11:52 AM STUDENT COUNSELOR [facility] Comment:The reference ranges have not been established in urine potassium. The results should be integrated into the clinical context for interpretation. Urine MID-STREAM URINE SPECIMEN / Unknown Non-blood Collection / Unknown 07/01/2024 9:07 PM STUDENT COUNSELOR 07/01/2024 9:11 PM STUDENT COUNSELOR Mike Teran MD LAB - URINE ORDERABLES Final Result [facility] Lab [address] [facility], [address] [place] [address] * Osmolality urine (07/01/2024 9:07 PM STUDENT COUNSELOR) Only the most recent of2 resultswithin the time period is included. Osmolality Urine 311 100 - 1,200 mmol/kg 07/02/2024 11:01 AM STUDENT COUNSELOR [facility] Urine MID-STREAM URINE SPECIMEN / Unknown Non-blood Collection / Unknown 07/01/2024 9:07 PM STUDENT COUNSELOR 07/01/2024 9:11 PM STUDENT COUNSELOR Narrative [facility] - 07/02/2024 11:01 AM STUDENT COUNSELOR Reference Ranges depend on patient's hydration status and renal function. Neonates: 75-300 mmol/kg 2 years and older, random specimens: 100-1200 mmol/kg; Greater than 850 mmol/kg after 12 hour fluid restriction Urine/serum osmolality ratio: 2 years and older: 1.0-3.0; 3.0-4.7 after 12 hour fluid restriction us Mike Teran MD LAB - URINE ORDERABLES Final Result LABORATORY [facility] Core Lab [address] [facility], [address] [phone] * Chloride random urine (07/01/2024 9:07 PM STUDENT COUNSELOR) Only the most recent of5 resultswithin the time period is included. Chloride Urine mmol/L <20 mmol/L 07/02/2024 11:34 AM STUDENT COUNSELOR LABORATORY Comment:The reference ranges have not been established in urine chloride. The results should be integrated into the clinical context for interpretation. Urine MID-STREAM URINE SPECIMEN / Unknown Non-blood Collection / Unknown 07/01/2024 9:07 PM STUDENT COUNSELOR 07/01/2024 9:11 PM STUDENT COUNSELOR Mike Teran MD LAB - URINE ORDERABLES Final Result Performing Organization Address [facility] Co de Phone Number LABORATORY [facility] Core Lab [address] [facility], [address] [phone] * PTH Related Peptide Test (07/01/2024 7:18 PM STUDENT COUNSELOR) Parathyroid Hormone-Related Peptide (PTHRP) 1.6 < or = 4.2 pmol/L 07/07/2024 2:55 PM STUDENT COUNSELOR [facility] Comment: ADDITIONAL INFORMATION This test was developed and its performance characteristics determined by [facility] in a manner consistent with CLIA requirements. This test has not been cleared or approved by the U.S. Food and Drug Administration. Test Performed by: [facility] - [facility] [address] [place] [address] Dynamic Balancer Set Up Worker: Alvaro Renner Ph.D.; CLIA# [id number] Blood STRUCTURE OF RIGHT UPPER LIMB / Unknown Venipuncture / Unknown 07/01/2024 7:18 PM STUDENT COUNSELOR 07/01/2024 7:27 PM STUDENT COUNSELOR Nain Locke DO LAB - BLOOD ORDERABLES Final R esult [facility] [address] [place] [address], [facility] [phone] * Phosphorus (07/01/2024 7:18 PM STUDENT COUNSELOR) Only the most recent of12 resultswithin the time period is included. Phosphorus 3.3 2.5 - 4.5 mg/dL 07/01/2024 9:41 PM STUDENT COUNSELOR LABORATORY Blood STRUCTURE OF RIGHT UPPER LIMB / Unknown Venipuncture / Unknown 07/01/2024 7:18 PM STUDENT COUNSELOR 07/01/2024 7:27 PM STUDENT COUNSELOR Nain Locke DO LAB - BLOOD ORDERABLES Final R [facility] Performing Organization Address [facility] de Phone Number [facility] Lab [address] [employer] Lab (1st floor, no room number) [place] [phone] [place] [address] * Parathyroid Hormone Intact (07/01/2024 7:18 PM STUDENT COUNSELOR) Only the most recent of3 resultswithin the time period is included. Parathyroid Hormone Intact 28 15 - 65 pg/mL 07/01/2024 7:51 PM STUDENT COUNSELOR LABORATORY Blood STRUCTURE OF RIGHT UPPER LIMB / Unknown Venipuncture / Unknown 07/01/2024 7:18 PM STUDENT COUNSELOR 07/01/2024 7:27 PM STUDENT COUNSELOR Narrative LABORATORY - 07/01/2024 7:51 PM STUDENT COUNSELOR This result was obtained with the [employer] PTH STAT assay. This reference range differs from PTH assays used in other [facility] laboratories. Nian Locke DO LAB - BLOOD ORDERABLES Final R esult Performing Organization Address City/[facility]/ZIP Co de Phone Number [facility] Lab [address] Lab (1st floor, no room number) [place] [address] * (ABNORMAL) Ionized Calcium (07/01/2024 3:35 PM STUDENT COUNSELOR) [facility] Calcium Ionized Whole Blood 5.6(H) 4.4 - 5.2 mg/dL 07/01/2024 3:45 PM STUDENT COUNSELOR LABORATORY Blood VENOUS LINE / Unknown Venipuncture / Unknown 07/01/2024 3:35 PM STUDENT COUNSELOR 07/01/2024 3:42 PM STUDENT COUNSELOR Jesus Bobby MD LAB - BLOOD ORDERABLES F inal Result LABORATORY [facility] [address] [employer] Lab (1st floor, no room number) [place] [address] * Extra Blue Top Tube (07/01/2024 2:14 PM STUDENT COUNSELOR) Only the most recent of4 resultswithin the time period is included. [facility] Hold Specimen JIC 07/01/2024 3:31 PM STUDENT COUNSELOR LABORATORY Blood STRUCTURE OF RIGHT UPPER LIMB / Unknown Venipuncture / Unknown 07/01/2024 2:14 PM STUDENT COUNSELOR 07/01/2024 2:20 PM STUDENT COUNSELOR Jesus Bobby MD LAB - BLOOD ORDERABLES F inal Result LABORATORY [facility] [address] Lab (1st floor, no room number) [place] [address] * (ABNORMAL) CBC with platelets and differential (07/01/2024 2:14 PM STUDENT COUNSELOR) Only the most recent of4 resultswithin the time period is included. [facility] WBC Count 9.1 4.0 - 11.0 10e3/uL 07/01/2024 2:23 PM STUDENT COUNSELOR LABORATORY RBC Count 4.12 3.80 - 5.20 10e6/uL 07/01/2024 2:23 PM STUDENT COUNSELOR [facility] Hemoglobin 11.1(L) 11.7 - 15.7 g/dL 07/01/2024 2:23 PM STUDENT COUNSELOR [facility] Hematocrit 32.0(L) 35.0 - 47.0 % 07/01/2024 2:23 PM STUDENT COUNSELOR [facility] MCV 78 78 - 100 fL 07/01/2024 2:23 PM STUDENT COUNSELOR [facility] MCH 26.9 26.5 - 33.0 pg 07/01/2024 2:23 PM STUDENT COUNSELOR [facility] MCHC 34.7 31.5 - 36.5 g/dL 07/01/2024 2:23 PM STUDENT COUNSELOR [facility] RDW 14.0 10.0 - 15.0 % 07/01/2024 2:23 PM STUDENT COUNSELOR [facility] Platelet Count 531(H) 150 - 450 10e3/uL 07/01/2024 2:23 PM STUDENT COUNSELOR [facility] % Neutrophils 70 % 07/01/2024 2:23 PM STUDENT COUNSELOR [facility] % Lymphocytes 20 % 07/01/2024 2:23 PM STUDENT COUNSELOR [facility] % Monocytes 7 % 07/01/2024 2:23 PM STUDENT COUNSELOR [facility] % Eosinophils 1 % 07/01/2024 2:23 PM STUDENT COUNSELOR [facility] % Basophils 1 % 07/01/2024 2:23 PM STUDENT COUNSELOR [facility] % Immature Granulocytes 0 % 07/01/2024 2:23 PM STUDENT COUNSELOR [facility] NRBCs per 100 WBC 0 <1 /100 025 2:23 PM STUDENT COUNSELOR [facility] Absolute Neutrophils 6.4 1.6 - 8.3 10e3/uL 07/01/2024 2:23 PM STUDENT COUNSELOR [facility] Absolute Lymphocytes 1.8 0.8 - 5.3 10e3/uL 07/01/2024 2:23 PM STUDENT COUNSELOR [facility] Absolute Monocytes 0.6 0.0 - 1.3 10e3/uL 07/01/2024 2:23 PM STUDENT COUNSELOR [facility] Absolute Eosinophils 0.1 0.0 - 0.7 10e3/uL 07/01/2024 2:23 PM STUDENT COUNSELOR [facility] Absolute Basophils 0.1 0.0 - 0.2 10e3/uL 07/01/2024 2:23 PM STUDENT COUNSELOR [facility] Absolute Immature Granulocytes 0.0 <=0.4 10e3/uL 07/01/2024 2:23 PM STUDENT COUNSELOR [facility] Absolute NRBCs 0.0 10e3/uL 07/01/2024 2:23 PM STUDENT COUNSELOR [facility] Blood STRUCTURE OF RIGHT UPPER LIMB / Unknown Venipuncture / Unknown 07/01/2024 2:14 PM STUDENT COUNSELOR 07/01/2024 2:20 PM STUDENT COUNSELOR Jesus Bobby MD LAB - BLOOD ORDERABLES F inal Result Performing Organization Address City/[facility]/ZIP Co de Phone Number [facility] Care Lab [address] Lab (1st floor, no room number) [place] [address] * Troponin T, High Sensitivity (07/01/2024 2:14 PM STUDENT COUNSELOR) Only the most recent of3 resultswithin the time period is included. Troponin T, High Sensitivity <6 <=14 ng/L 07/01/2024 2:45 PM STUDENT COUNSELOR LABORATORY Comment: Either a High Sensitivity Troponin T baseline (0 hours) value = 100 ng/L, or an increase in High Sensitivity Troponin T = 7 ng/L at 2 hours compared to 0 hours (2-0 hours), suggests myocardial injury, and urgent clinical attention is required. If the 2-0 hours increase is <7 ng/L, a High Sensitivity Troponin T result above gender-specific reference ranges warrants further evaluation. Recommendations for further evaluation include correlation with clinical decision-making tool (e.g., HEART), a 3rd High Sensitivity Troponin T test 2 hours after the 2nd (a 20% change from baseline would represent concern), admission for observation, close PCC/cardiology follow-up, or urgent outpatient provocative testing. Blood STRUCTURE OF RIGHT UPPER LIMB / Unknown Venipuncture / Unknown 07/01/2024 2:14 PM STUDENT COUNSELOR 07/01/2024 2:20 PM STUDENT COUNSELOR Jesus Bobby MD LAB - BLOOD ORDERABLES F inal Result [facility] Care Lab [address] Lab (1st floor, no room number) [place] [address] * Vitamin D Deficiency (07/01/2024 2:14 PM STUDENT COUNSELOR) Vitamin D, Total (25-Hydroxy) 20 20 - 50 ng/mL 07/02/2024 4:14 AM STUDENT COUNSELOR [facility] Comment:optimum levels Blood STRUCTURE OF RIGHT UPPER LIMB / Unknown Venipuncture / Unknown 07/01/2024 2:14 PM STUDENT COUNSELOR 07/01/2024 2:20 PM STUDENT COUNSELOR Narrative [facility] - 07/02/2024 4:14 AM STUDENT COUNSELOR Season, race, dietary intake, and treatment affect the concentration of 58-vlpuuld-Dymakqw D. Values may decrease during winter months and increase during summer months. Vitamin D determination is routinely performed by an immunoassay specific for 25 hydroxyvitamin D3. If an individual is on vitamin D2(ergocalciferol) supplementation, please specify 25 OH vitamin D2 and D3 level determination by LCMSMS test VITD23. Nain Locke DO LAB - BLOOD ORDERABLES Final R esult U LAB[facility]ATORY [facility] Lab [address], [address] [place] [address] * Lipase (07/01/2024 2:14 PM STUDENT COUNSELOR) Lipase 29 13 - 60 U/L 07/01/2024 2:58 PM STUDENT COUNSELOR LABORATORY Blood STRUCTURE OF RIGHT UPPER LIMB / Unknown Venipuncture / Unknown 07/01/2024 2:14 PM STUDENT COUNSELOR 07/01/2024 2:20 PM STUDENT COUNSELOR Jesus Bobby MD LAB - BLOOD ORDERABLES F inal Result LABORATORY [facility] Lab [address] [facility] Lab (1st floor, no room number) [place] [address] * (ABNORMAL) Hepatic panel (07/01/2024 2:14 PM STUDENT COUNSELOR) Protein Total 8.8(H) 6.4 - 8.3 g/dL 07/01/2024 2:58 PM STUDENT COUNSELOR LABORATORY Albumin 5.6(H) 3.5 - 5.2 g/dL 07/01/2024 2:58 PM STUDENT COUNSELOR LABORATORY Bilirubin Total 0.3 <=1.2 mg/dL 07/01/2024 2:58 PM STUDENT COUNSELOR [facility] Alkaline Phosphatase 84 40 - 150 U/L 07/01/2024 2:58 PM STUDENT COUNSELOR [facility] AST 18 0 - 45 U/L 07/01/2024 2:58 PM STUDENT COUNSELOR [facility] ALT 9 0 - 50 U/L 07/01/2024 2:58 PM STUDENT COUNSELOR [facility] Bilirubin Direct <0.20 0.00 - 0.30 mg/dL 07/01/2024 2:58 PM STUDENT COUNSELOR LABORATORY Blood STRUCTURE OF RIGHT UPPER LIMB / Unknown Venipuncture / Unknown 07/01/2024 2:14 PM STUDENT COUNSELOR 07/01/2024 2:20 PM STUDENT COUNSELOR Jesus Bobby MD LAB - BLOOD ORDERABLES F inal Result Performing Organization Address City/[facility]/ZIP Co de Phone Number [facility] Lab [address] Lab (1st floor, no room number) [place] [phone] [place] [address] * HCG QUALitative (blood) (07/01/2024 2:14 PM STUDENT COUNSELOR) Only the most recent of2 resultswithin the time period is included. hCG Serum Qualitative Negative Negative RUKHSANA 07/01/2024 2:50 PM STUDENT COUNSELOR [facility] Comment:This test is for scr eening purposes. Results should be interpreted along with the clinical picture. Confirmation testing is available if warranted by ordering [id number], HCG Quantitative . Blood STRUCTURE OF RIGHT UPPER LIMB / Unknown Venipuncture / Unknown 07/01/2024 2:14 PM STUDENT COUNSELOR 07/01/2024 2:20 PM STUDENT COUNSELOR Jesus Bobby MD LAB - BLOOD ORDERABLES F inal Result [facility] [address] Lab (1st floor, no room number) [place] [address] * EKG 12 lead (07/01/2024 11:37 AM STUDENT COUNSELOR) Only the most recent of7 resultswithin the time period is included. Systolic Blood Pressure mmHg RADIOLOGY RESULTS Diastolic Blood Pressure mmHg RADIOLOGY RESULTS Ventricular Rate 88 BPM RAD IOLOGY RESULTS Atrial Rate 88 BPM RADIOLOG Y RESULTS OK Interval 136 ms RADIOLOG Y RESULTS QRS Duration 90 ms RADIOLO GY RESULTS QT 536 ms RADIOLOGY RESULTS QTc 648 ms RADIOLOGY RESULTS P [place] 70 degrees RADIOLOGY RESULTS R AXIS 84 degrees RADIOLOGY RESULTS T [place] 78 degrees RADIOLOGY RESULTS Interpretation ECG Sinus rhythm Left ventricular hypertrophy with repolarization abnormality ( Sokolow-Hernandez ) Marked ST abnormality, possible anterior subendocardial injury Prolonged QT Abnormal ECG When compared with ECG of 18-Jun-2024 11:14, Significant changes have occurred Unconfirmed report - interpretation of this ECG is computer generated - see medical record for final interpretation Confirmed by - EMERGENCY ROOM, PHYSICIAN ([id number]), map editor NTETIE KIM ([id number]) on 07/01/2024 12:28:51 PM RADIOLOGY RESULTS 07/01/2024 11:3 7 AM STUDENT COUNSELOR 07/01/2024 12:28 PM STUDENT COUNSELOR Jesus Bobby MD ECG ORDERABLES Edited R esult - Final RADIOLOGY RESULTS * Influenza A/B, RSV and SARS-CoV2 PCR (COVID-19) Nasopharyngeal (07/01/2024 11:32 AM STUDENT COUNSELOR) [facility] Influenza A PCR Negative Negative 07/01/2024 12:22 PM STUDENT COUNSELOR LABORATORY Influenza B PCR Negative Negative 07/01/2024 12:22 PM STUDENT COUNSELOR LABORATORY RSV PCR Negative Negative 07/01/2024 12:22 PM STUDENT COUNSELOR LABORATORY SARS CoV2 PCR Negative Negative 07/01/2024 12:22 PM STUDENT COUNSELOR LABORATORY Comment:NEGATIVE: SARS-CoV-2 (COVID-19) RNA not detected, presumed negative. Swab NASOPHARYNGEAL STRUCTURE / Unknown Non-blood Collection / Unknown 07/01/2024 11:32 AM STUDENT COUNSELOR 07/01/2024 11:39 AM STUDENT COUNSELOR Narrative LABORATORY - 07/01/2024 12:22 PM STUDENT COUNSELOR Testing was performed using the Xpert Xpress CoV2/Flu/RSV Assay on the [employer] Instrument. This test should be ordered for [...] management. This test was validated by the [facility] [email or web address]. These laboratories are certified under the Clinical Laboratory Improvement Amendments of 1988 (CLIA-88) as qualified to perfom high complexity laboratory testing. Jesus Bobby MD LAB - MICRO GENERAL ORDJl [place] Final Result LABORATORY [facility] [address] [facility] Lab (1st floor, no room number) [place] [address] * (ABNORMAL) Renal panel (06/20/2024 7:23 AM STUDENT COUNSELOR) Only the most recent of4 resultswithin the time period is included. Sodium 145 135 - 145 mmol/L 06/20/2024 9:35 AM [facility] Potassium 4.5 3.4 - 5.3 mmol/L 06/20/2024 9:35 AM [facility] Chloride 105 98 - 107 mmol/L 06/20/2024 9:35 AM [facility] Carbon Dioxide (CO2) 27 22 - 29 mmol/L 06/20/2024 9:35 AM [facility] Anion Gap 13 7 - 15 mmol/L 06/20/2024 9:35 AM [facility] Glucose 82 70 - 99 mg/dL 06/20/2024 9:35 AM [facility] Urea Nitrogen 26.8(H) 6.0 - 20.0 mg/dL 06/20/2024 9:35 AM [facility] Creatinine 2.09(H) 0.51 - 0.95 mg/dL 06/20/2024 9:35 AM [facility] GFR Estimate 31(L) >60 mL/min/1.7 3m2 06/20/2024 9:35 AM STUDENT COUNSELOR [facility] Comment:eGFR calculated us2020 CKD-EPI equation. Calcium 9.9 8.8 - 10.4 mg/dL 06/20/2024 9:35 AM STUDENT COUNSELOR [facility] Comment:Reference intervals for this test were updated on 01/08/2024 to reflect our healthy population more accurately. There may be differences in the flagging of prior results with similar values performed with this method. Those prior results can be interpreted in the context of the updated reference intervals. Albumin 3.9 3.5 - 5.2 g/dL 06/20/2024 9:35 AM STUDENT COUNSELOR LABORATORY Phosphorus 2.9 2.5 - 4.5 mg/dL 06/20/2024 9:35 AM STUDENT COUNSELOR LABORATORY Blood STRUCTURE OF LEFT HAND / Unknown Venipuncture / Unknown 06/20/2024 7:23 AM STUDENT COUNSELOR 06/20/2024 7:47 AM STUDENT COUNSELOR Javon Devine MD LAB - BLOOD ORDERABLES Final Res ult Performing Organization Address City/[facility]/ZIP Co de Phone Number [facility] [address] Lab (1st floor, no room number) [place] [phone] * Sodium random urine (06/19/2024 5:13 PM STUDENT COUNSELOR) Only the most recent of4 resultswithin the time period is included. Sodium Urine mmol/L 121 mmol/L 06/19/2024 5:45 PM STUDENT COUNSELOR LABORATORY Comment:The reference ranges have not been established in urine sodium. The results should be integrated into the clinical context for interpretation. Urine URINE SPECIMEN OBTAINED BY CLEAN CATCH PROCEDURE / Unknown Non-blood Collection / Unknown 06/19/2024 5:13 PM STUDENT COUNSELOR 06/19/2024 5:19 PM STUDENT COUNSELOR Azar Umanzor MD LAB - URINE ORDERABLES Final Res ult Performing Organization Address City/[facility]/ZIP Co de Phone Number [facility] [address] Lab (1st floor, no room number) [place] [address] * Creatinine random urine (06/17/2024 1:39 PM STUDENT COUNSELOR) Creatinine Urine mg/dL 32.8 mg/dL 06/17/2024 2:08 PM STUDENT COUNSELOR LABORATORY Comment:The reference ranges have not been established in urine creatinine. The results should be integrated into the clinical context for interpretation. Urine URINE SPECIMEN OBTAINED BY CLEAN CATCH PROCEDURE / Unknown Non-blood Collection / Unknown 06/17/2024 1:39 PM STUDENT COUNSELOR 06/17/2024 1:45 PM STUDENT COUNSELOR us Mike Teran MD LAB - URINE ORDERABLES Final Result [facility] [address] [facility] ([facility]st [facility], no room number) [place] [address] * MR Knee Left w/o Contrast (06/17/2024 11:35 AM STUDENT COUNSELOR) Anatomical Region Laterality Modality Left Knee, SUBRAD MR MSK, UMP MR MSK, RAD MR Magnetic Resonance Impressions 06/17/2024 11:59 AM STUDENT COUNSELOR IMPRESSION: 1. Subtle soft tissue edema superficial to an intact tibial collateral ligament. Correlate clinically for a low-grade sprain. 2. Nonspecific focus of bone marrow edema along the posterior aspect of the lateral femoral condyle. Correlate for bone contusion. 3. The anterior and posterior cruciate ligaments, lateral supporting structures, and bilateral menisci are intact. JESSICA EDWARD MD Narrative 06/17/2024 11:59 AM STUDENT COUNSELOR EXAMINATION: MRI of the left knee without contrast DATE: 06/17/2024 HISTORY: Knee pain TECHNIQUE: Multiplanar, multisequence MR imaging of the left knee was obtained using standard sequences in 3 orthogonal planes without use of intravenous or intra-articular gadolinium contrast. Comparison: Comparison radiographs dated 06/16/2024 were reviewed, which demonstrated no acute bone abnormality. FINDINGS: Small focus of bone marrow edema along the posterior aspect of the lateral femoral condyle. In the medial compartment, the medial meniscus is intact. There is no high-grade or full-thickness cartilage loss or subchondral edema. In the lateral compartment, the lateral meniscus is intact. There is no high-grade or full-thickness cartilage loss or subchondral edema. In the patellofemoral compartment, there is no high-grade or full-thickness cartilage loss or subchondral edema. The anterior and posterior cruciate ligaments are intact. Mild soft tissue edema surrounds an intact tibial collateral ligament. The anterior iliotibial band, fibular collateral ligament, biceps femoris tendon, and popliteus tendons are intact. There is a small joint effusion. Trace fluid in the semimembranosus medial gastrocnemius bursa. No joint bodies. Probable bone island medial femoral condyle The extensor mechanism is intact and normal in appearance. Procedure Note Jessica Edward MD - 06/17/2024 EXAMINATION: MRI of the left knee without contrast DATE: 06/17/2024 HISTORY: Knee pain TECHNIQUE: Multiplanar, multisequence MR imaging of the left knee was obtained using standard sequences in 3 orthogonal planes without use of intravenous or intra-articular gadolinium contrast. Comparison: Comparison radiographs dated 06/16/2024 were reviewed, which demonstrated no acute bone abnormality. FINDINGS: Small focus of bone marrow edema along the posterior aspect of the lateral femoral condyle. In the medial compartment, the medial meniscus is intact. There is no high-grade or full-thickness cartilage loss or subchondral edema. In the lateral compartment, the lateral meniscus is intact. There is no high-grade or full-thickness cartilage loss or subchondral edema. In the patellofemoral compartment, there is no high-grade or full-thickness cartilage loss or subchondral edema. The anterior and posterior cruciate ligaments are intact. Mild soft tissue edema surrounds an intact tibial collateral ligament. The anterior iliotibial band, fibular collateral ligament, biceps femoris tendon, and popliteus tendons are intact. There is a small joint effusion. Trace fluid in the semimembranosus medial gastrocnemius bursa. No joint bodies. Probable bone island medial femoral condyle The extensor mechanism is intact and normal in appearance. IMPRESSION: 1. Subtle soft tissue edema superficial to an intact tibial collateral ligament. Correlate clinically for a low-grade sprain. 2. Nonspecific focus of bone marrow edema along the posterior aspect of the lateral femoral condyle. Correlate for bone contusion. 3. The anterior and posterior cruciate ligaments, lateral supporting structures, and bilateral menisci are intact. JESSICA EDWARD MD Azar Umanzor MD IMG MRI ORDERABLES Final Result * XR Knee Left 3 Views (06/16/2024 6:16 PM STUDENT COUNSELOR) Only the most recent of2 resultswithin the time period is included. Anatomical Region Laterality Modality Thigh, Knee, Leg Left Digital Radiogr aphy 06/16/2024 6:16 PM STUDENT COUNSELOR Impressions 06/16/2024 6:36 PM STUDENT COUNSELOR IMPRESSION: Normal left knee joint spacing and alignment. No sizable effusion. Negative for acute fracture. Narrative 06/16/2024 6:36 PM STUDENT COUNSELOR EXAM: XR KNEE LEFT 3 VIEWS LOCATION: [facility] DATE: 06/16/2024 INDICATION: fall, medial pain COMPARISON: None. Procedure Note Stephon Farias MD - 06/16/2024 EXAM: XR KNEE LEFT 3 VIEWS LOCATION: [facility] DATE: 06/16/2024 INDICATION: fall, medial pain COMPARISON: None. IMPRESSION: Normal left knee joint spacing and alignment. No sizable effusion.Negative for acute fracture. Jamil Madison MD IMG DIAGNOSTIC IMAGING OR DERABLES Final Result * CT Knee Left w/o Contrast (05/31/2024 2:33 PM STUDENT COUNSELOR) Anatomical Region Laterality Modality Left Knee, SUBRAD CT MSK, UMP CT MSK, RAD CT Computed Tomography 05/31/2024 2:33 PM STUDENT COUNSELOR Impressions 05/31/2024 2:41 PM STUDENT COUNSELOR IMPRESSION: 1. No evidence for acute left knee fracture. Normal joint spacing and alignment. 2. Trace joint effusion. Narrative 05/31/2024 2:41 PM STUDENT COUNSELOR EXAM: CT KNEE LEFT W/O CONTRAST LOCATION: [facility] DATE: 05/31/2024 INDICATION: syncope with knee pain, xr negative but pain w ranging and weight bearing. ?occult fracture COMPARISON: None. TECHNIQUE: Noncontrast. Axial, sagittal and coronal thin-section reconstruction. Dose reduction techniques were used. FINDINGS: BONES: -No evidence for left knee fracture. Normal joint spacing and alignment.. SOFT TISSUES: -Trace joint effusion. There is some mild subcutaneous soft tissue edema over the knee without a drainable fluid collection. Procedure Note Stephon Farias MD - 05/31/2024 EXAM: CT KNEE LEFT W/O CONTRAST LOCATION: [facility] DATE: 05/31/2024 INDICATION: syncope with knee pain, xr negative but pain w ranging andweight bearing. ?occult fracture COMPARISON: None. TECHNIQUE: Noncontrast. Axial, sagittal and coronal thin-sectionreconstruction. Dose reduction techniques were used. FINDINGS: BONES: -No evidence for left knee fracture. Normal joint spacing andalignment.. SOFT TISSUES: -Trace joint effusion. There is some mild subcutaneous soft tissue edemaover the knee without a drainable fluid collection. IMPRESSION: 1. No evidence for acute left knee fracture. Normal joint spacing andalignment. 2. Trace joint effusion. Emeterio Solorzano MD [facility] [place] [place] CT ORDERABLES Final Result * (ABNORMAL) Comprehensive metabolic panel (05/31/2024 8:35 AM [facility]) Only the most recent of2 resultswithin the time period is included. Sodium 141 135 - 145 mmol/L 05/31/2024 9:07 AM [facility] Potassium 4.2 3.4 - 5.3 mmol/L 05/31/2024 9:07 AM [facility] Carbon Dioxide (CO2) 35(H) 22 - 29 mmol/L 05/31/2024 9:07 AM [facility] Anion Gap 10 7 - 15 mmol/L 05/31/2024 9:07 AM [facility] Urea Nitrogen 31.3(H) 6.0 - 20.0 mg/dL 05/31/2024 9:07 AM [facility] Creatinine 1.99(H) 0.51 - 0.95 mg/dL 05/31/2024 9:07 AM [facility] GFR Estimate 33(L) >60 mL/min/1.7 3m2 05/31/2024 9:07 AM [facility] Comment:eGFR calculated usin 2020 CKD-EPI equation. Calcium 10.2 8.8 - 10.4 mg/dL 05/31/2024 9:07 AM STUDENT COUNSELOR [facility] Comment:Reference intervals for this test were updated on 01/08/2024 to reflect our healthy population more accurately. There may be differences in the flagging of prior results with similar values performed with this method. Those prior results can be interpreted in the context of the updated reference intervals. Chloride 96(L) 98 - 107 mmol/L 05/31/2024 9:07 AM STUDENT COUNSELOR [facility] Glucose 126(H) 70 - 99 mg/dL 05/31/2024 9:07 AM STUDENT COUNSELOR [facility] Alkaline Phosphatase 75 40 - 150 U/L 05/31/2024 9:07 AM STUDENT COUNSELOR LABORATORY AST 22 0 - 45 U/L 05/31/2024 9:07 AM STUDENT COUNSELOR LABORATORY ALT 12 0 - 50 U/L 05/31/2024 9:07 AM STUDENT COUNSELOR LABORATORY Protein Total 6.8 6.4 - 8.3 g/dL 05/31/2024 9:07 AM STUDENT COUNSELOR [facility] Albumin 4.1 3.5 - 5.2 g/dL 05/31/2024 9:07 AM STUDENT COUNSELOR LABORATORY Bilirubin Total <0.2 <=1.2 mg/dL 05/31/2024 9:07 AM STUDENT COUNSELOR LABORATORY Blood STRUCTURE OF LEFT HAND / Unknown Venipuncture / Unknown 05/31/2024 8:35 AM STUDENT COUNSELOR 05/31/2024 8:44 AM STUDENT COUNSELOR us Sean Freeman MD LAB - BLOOD ORDERABLES Final Result LABORATORY [facility] [address] [facility] Lab (1st floor, no room number) [place] [address] * Ammonia (05/31/2024 8:35 AM STUDENT COUNSELOR) Ammonia 20 11 - 51 umol/L 05/31/2024 9:04 AM STUDENT COUNSELOR LABORATORY Blood STRUCTURE OF LEFT HAND / Unknown Venipuncture / Unknown 05/31/2024 8:35 AM STUDENT COUNSELOR 05/31/2024 8:44 AM STUDENT COUNSELOR Sean Freeman MD LAB - BLOOD ORDERABLES Final Result [facility] [address] Lab (1st floor, no room number) [place] [address], [facility] * XR Ankle Left G/E 3 Views (05/29/2024 4:02 PM STUDENT COUNSELOR) Anatomical Region Laterality Modality Leg, Ankle, Foot Left Digital Radiogr aphy Impressions 05/29/2024 4:09 PM STUDENT COUNSELOR IMPRESSION: No fracture. Intact ankle mortise and distal syndesmosis. HUSEYIN MCKEON MD SYSTEM ID: [id number] Narrative 05/29/2024 4:09 PM STUDENT COUNSELOR XR ANKLE LEFT G/E 3 VIEWS 05/29/2024 4:02 PM HISTORY: fall, ankle pain COMPARISON: None. Procedure Note Huseyin Mckeon MD - 05/29/2024 XR ANKLE LEFT G/E 3 VIEWS 05/29/2024 4:02 PM HISTORY: fall, ankle pain COMPARISON: None. IMPRESSION: No fracture. Intact ankle mortise and distal syndesmosis. HUSEYIN MCKEON MD SYSTEM ID: [id number] us Jamil Carlin MD IMG DIAGNOSTIC IMAGING OR DERABLES Final Result * Extra Red Top Tube (05/29/2024 2:41 PM STUDENT COUNSELOR) Only the most recent of2 resultswithin the time period is included. Hold Specimen [facility] 05/29/2024 4:16 PM STUDENT COUNSELOR LABORATORY Blood BLOOD SPECIMEN / Unknown Venipuncture / Unknown 05/29/2024 2:41 PM STUDENT COUNSELOR 05/29/2024 3:08 PM STUDENT COUNSELOR us Jamil Carlin MD LAB - BLOOD ORDERABLES Fi nal Result [facility] [address] Lab (1st floor, no room number) [place] [address], [facility] * TSH with free T4 reflex (05/29/2024 2:41 PM STUDENT COUNSELOR) TSH 1.95 0.30 - 4.20 uIU/mL 05/29/2024 3:37 PM STUDENT COUNSELOR LABORATORY Blood BLOOD SPECIMEN / Unknown Venipuncture / Unknown 05/29/2024 2:41 PM STUDENT COUNSELOR 05/29/2024 3:08 PM STUDENT COUNSELOR Jamil Carlin MD LAB - BLOOD ORDERABLES Fi nal Result LABORATORY [facility] [address] [facility] (1st floor, no room number) [place] [address], [facility] * (ABNORMAL) UA with Microscopic (05/29/2024 2:41 PM STUDENT COUNSELOR) Color Urine Light Yellow Colorless, Straw, Light Yellow, Yellow 05/29/2024 3:29 PM STUDENT COUNSELOR LABORATORY Appearance Urine Clear Clear 05/29/20 24 3:29 PM STUDENT COUNSELOR LABORATORY Glucose Urine Negative Negative mg/dL 05/29/2024 3:29 PM STUDENT COUNSELOR LABORATORY Bilirubin Urine Negative Negative 3:29 PM STUDENT COUNSELOR LABORATORY Ketones Urine Negative Negative mg/dL 05/29/2024 3:29 PM STUDENT COUNSELOR LABORATORY Specific [place] Urine 1.010 1.003 - 1.035 05/29/2024 3:29 PM STUDENT COUNSELOR LABORATORY Blood Urine Negative Negative 05/29/2024 3:29 PM [facility] pH Urine 8.0(H) 5.0 - 7.0 05/29/2024 3:29 PM STUDENT COUNSELOR LABORATORY Protein Albumin Urine 50(A) Negative mg/dL 05/29/2024 3:29 PM STUDENT COUNSELOR LABORATORY Urobilinogen Urine Normal Normal, 2.0 mg/dL 05/29/2024 3:29 PM STUDENT COUNSELOR LABORATORY Nitrite Urine Negative Negative 05/29/2024 3:29 PM STUDENT COUNSELOR LABORATORY Leukocyte Esterase Urine Negative Negative 05/29/2024 3:29 PM [facility] Bacteria Urine Few(A) None Seen /HPF 05/29/2024 3:29 PM STUDENT COUNSELOR LABORATORY RBC Urine 1 <=2 /HPF 05/29/2024 3:29 PM STUDENT COUNSELOR LABORATORY WBC Urine 2 <=5 /HPF 05/29/2024 3:29 PM STUDENT COUNSELOR LABORATORY Squamous Epithelials Urine <1 <=1 /HPF 05/29/2024 3:29 PM STUDENT COUNSELOR LABORATORY Hyaline Casts Urine 3(H) <=2 /LPF 05/29/2024 3:29 PM STUDENT COUNSELOR LABORATORY Urine URINE SPECIMEN OBTAINED BY CLEAN CATCH PROCEDURE / Unknown Non-blood Collection / Unknown 05/29/2024 2:41 PM STUDENT COUNSELOR 05/29/2024 3:19 PM STUDENT COUNSELOR Jamil Carlin MD LAB - URINE ORDERABLES Fi nal Result Performing Organization Address City/[facility]/ZIP Co de Phone Number [facility] [address] Lab (1st floor, no room number) [place] [phone] [place] [address] * (ABNORMAL) Protein random urine (05/29/2024 2:41 PM STUDENT COUNSELOR) Total Protein Urine mg/dL 44.4 mg/dL 05/29/2024 3:50 PM STUDENT COUNSELOR LABORATORY Comment:The reference ranges have not been established in urine protein. The results should be integrated into the clinical context for interpretation. Total Protein Urine mg/mg Creat 1.14(H) 0.00 - 0.20 mg/mg Cr 05/29/2024 3:50 PM STUDENT COUNSELOR LABORATORY Creatinine Urine mg/dL 38.9 mg/dL 05/29/2024 3:50 PM STUDENT COUNSELOR LABORATORY Comment:The reference ranges have not been established in urine creatinine. The results should be integrated into the clinical context for interpretation. Urine URINE SPECIMEN OBTAINED BY CLEAN CATCH PROCEDURE / Unknown Non-blood Collection / Unknown 05/29/2024 2:41 PM STUDENT COUNSELOR 05/29/2024 3:18 PM STUDENT COUNSELOR Jamil Carlin MD LAB - URINE ORDERABLES Fi nal Result Performing Organization Address City/[facility]/ZIP Co de Phone Number [facility] [address] Lab (1st floor, no room number) [place] [address] * (ABNORMAL) Albumin Random Urine Quantitative with Creat Ratio (05/29/2024 2:41 PM STUDENT COUNSELOR) Creatinine Urine mg/dL 37.8 mg/dL 05/30/2024 4:36 AM STUDENT COUNSELOR [facility] Comment:The reference ranges have not been established in urine creatinine. The results should be integrated into the clinical context for interpretation. Albumin Urine mg/L 165.0 mg/L 2023 4:36 AM STUDENT COUNSELOR [facility] Comment:The reference ranges have not been established in urine albumin. The results should be integrated into the clinical context for interpretation. Albumin Urine mg/g Cr 436.51(H) 0.00 - 25.00 mg/g Cr 05/30/2024 4:36 AM STUDENT COUNSELOR [facility] Comment: Microalbuminuria is defined as an albumin:creatinine ratio of 17 to 299 for males and 25 to 299 for females. A ratio of albumin:creatinine of 300 or higher is indicative of overt proteinuria. Due to biologic variability, positive results should be confirmed by a second, first-morning random or 24-hour timed urine specimen. If there is discrepancy, a third specimen is recommended. When 2 out of 3 results are in the microalbuminuria range, this is evidence for incipient nephropathy and warrants increased efforts at glucose control, blood pressure control, and institution of therapy with an [id number] (SARANYA) inhibitor (if the patient can tolerate it). Urine URINE SPECIMEN OBTAINED BY CLEAN CATCH PROCEDURE / Unknown Non-blood Collection / Unknown 05/29/2024 2:41 PM STUDENT COUNSELOR 05/29/2024 3:18 PM STUDENT COUNSELOR us Jamil Carlin MD LAB - URINE ORDERABLES Fi nal Result [facility] Core Lab [address] [facility], [address] [place] [phone] * (ABNORMAL) Blood gas venous (05/29/2024 2:41 PM STUDENT COUNSELOR) pH Venous 7.56(H) 7.32 - 7.43 05/29/2024 3:27 PM STUDENT COUNSELOR LABORATORY pCO2 Venous 71(H) 40 - 50 mm Hg 05/29/2024 3:27 PM STUDENT COUNSELOR [facility] pO2 Venous 38 25 - 47 mm Hg 05/29/2024 3:27 PM STUDENT COUNSELOR [facility] Bicarbonate Venous >45(HH) 21 - 28 mmol/L 05/29/2024 3:27 PM STUDENT COUNSELOR [facility] Base Excess/Deficit Venous 05/29/2024 3:27 PM STUDENT COUNSELOR [facility] Comment:hide FIO2 21 RUKHSANA 05/29/2024 3:27 PM STUDENT COUNSELOR [facility] Oxyhemoglobin Venous 67(L) 70 - 75 % 05/29/2024 3:27 PM STUDENT COUNSELOR [facility] O2 Sat, Venous 67.1(L) 70.0 - 75.0 % 05/29/2024 3:27 PM STUDENT COUNSELOR [facility] Blood, venous BLOOD SPECIMEN / Unknown Venipuncture / Unknown 05/29/2024 2:41 PM STUDENT COUNSELOR 05/29/2024 3:08 PM STUDENT COUNSELOR Narrative [facility] - 05/29/2024 3:27 PM STUDENT COUNSELOR In healthy individuals, oxyhemoglobin (O2Hb) and oxygen saturation (SO2) are approximately equal. In the presence of dyshemoglobins, oxyhemoglobin can be considerably lower than oxygen saturation. us Jamil Carlin MD LAB - BLOOD ORDERABLES Fi nal Result LABORATORY [facility] [address] [facility] Lab (1st floor, no room number) [place] [address], [facility] * (ABNORMAL) Sodium timed urine (05/19/2024 12:02 PM STUDENT COUNSELOR) Sodium Urine mmol/L 130 mmol/L 05/19/2024 1:51 PM STUDENT COUNSELOR [facility] Comment:The reference ranges have not been established in urine sodium. The results should be integrated into the clinical context for interpretation. Sodium Urine mmol/spec 286(H) 40 - 220 mmol/spec 05/19/2024 1:51 PM STUDENT COUNSELOR [facility] Duration in hours 24.0 h [facility] 05/19/2024 1:51 PM STUDENT COUNSELOR [facility] Comment: started 05/18/24 11:40am started 05/18/24 11:40am Volume in mL 2,200 mL [facility] 05/19/2024 1:51 PM STUDENT COUNSELOR [facility] Comment: Ended 05/19/24 11:40am Ended 05/19/24 11:40am Urine URINE SPECIMEN OBTAINED BY CLEAN CATCH PROCEDURE / Unknown Non-blood Collection / Unknown 05/19/2024 12:02 PM STUDENT COUNSELOR 05/19/2024 12:09 PM STUDENT COUNSELOR us Javon Devine MD LAB - URINE ORDERABLES Final Res ult [facility] LABORATORY [facility] [address] Lab (1st floor, no room number) [place] [address], [facility] * Potassium timed urine (05/19/2024 12:00 PM STUDENT COUNSELOR) [facility] Potassium Urine 39.0 mmol/L 6:39 PM STUDENT COUNSELOR [facility] Comment:The reference ranges have not been established in urine potassium. The results should be integrated into the clinical context for interpretation. Duration in hours 24.0 h [facility] 05/19/2024 6:39 PM STUDENT COUNSELOR [facility] Comment: Started 05/18/24 11:40am Started 05/18/24 11:40am Started 05/18/24 11:40am Volume in mL 2,200 mL [facility] 05/19/2024 6:39 PM STUDENT COUNSELOR [facility] Comment: Ended 05/19/24 11:40am Ended 05/19/24 11:40am Ended 05/19/24 11:40am Potassium Urine mmol/spec 86 25 - 125 mmol/spec 05/19/2024 6:39 PM STUDENT COUNSELOR [facility] Urine URINE SPECIMEN FROM URINARY CONDUIT / Unknown Non-blood Collection / Unknown 05/19/2024 12:00 PM STUDENT COUNSELOR 05/19/2024 12:10 PM STUDENT COUNSELOR us Javon Devine MD LAB - URINE ORDERABLES Final Res ult [facility] Lab [address] [facility], [address] [place] [address], [facility] * (ABNORMAL) Phosphorus timed urine (05/19/2024 11:59 AM STUDENT COUNSELOR) Phosphorous Urine mg/dL 15.0(L) 40.0 - 136.0 mg/dL 05/19/2024 6:50 PM STUDENT COUNSELOR [facility] Phosphorus Urine g/spec 0.33(L) 0.40 - 1.30 g/spec 05/19/2024 6:50 PM STUDENT COUNSELOR [facility] Duration in hours 24.0 h [facility] 05/19/2024 6:50 PM STUDENT COUNSELOR [facility] Comment: Started 05/18/24 11:40am Started 05/18/24 11:40am Volume in mL 2,200 mL [facility] 05/19/2024 6:50 PM STUDENT COUNSELOR [facility] Comment: Ended 05/19/24 11:40am Ended 05/19/24 11:40am Urine URINE SPECIMEN OBTAINED BY CLEAN CATCH PROCEDURE / Unknown Non-blood Collection / Unknown 05/19/2024 11:59 AM STUDENT COUNSELOR 05/19/2024 12:09 PM STUDENT COUNSELOR us Javon Devine MD LAB - URINE ORDERABLES Final Res ult [facility] [address] [facility] [phone] * (ABNORMAL) Magnesium timed urine (05/19/2024 11:58 AM STUDENT COUNSELOR) Magnesium Urine mg/dL 10.3 mg/dL 05/19/2024 6:54 PM STUDENT COUNSELOR [facility] Comment:The reference ranges have not been established in urine magnesium. The results should be integrated into the clinical context for interpretation. Duration in hours 24.0 h RUKHSANA 05/19/2024 6:54 PM STUDENT COUNSELOR [facility] Comment: Started 05/18/24 11:40am Started 05/18/24 11:40am Started 05/18/24 11:40am Volume in mL 2,200 mL RUKHSANA 05/19/2024 6:54 PM STUDENT COUNSELOR [facility] Comment: Ended 05/19/24 11:40am Ended 05/19/24 11:40am Ended 05/19/24 11:40am Magnesium Urine g/spec 0.23(H) 0.07 - 0.12 g/spec 05/19/2024 6:54 PM STUDENT COUNSELOR [facility] Comment:Reference range appl icable for 24 hour only Urine URINE SPECIMEN OBTAINED BY CLEAN CATCH PROCEDURE / Unknown Non-blood Collection / Unknown 05/19/2024 11:58 AM STUDENT COUNSELOR 05/19/2024 12:09 PM STUDENT COUNSELOR us Javon Devine MD LAB - URINE ORDERABLES Final Res ult Performing Organization Address City/[facility]/ZIP Co de Phone Number [facility] Core Lab [address], [address] [phone] * (ABNORMAL) Chloride timed urine (05/19/2024 11:56 AM STUDENT COUNSELOR) Chloride Urine mmol/L 41 mmol/L 05/19/2024 6:41 PM STUDENT COUNSELOR [facility] Comment:The reference ranges have not been established in urine chloride. The results should be integrated into the clinical context for interpretation. Chloride Urine mmol/spec 90(L) 110 - 250 mmol/spec 05/19/2024 6:41 PM STUDENT COUNSELOR [facility] Comment: Reference range applicable for 24 hour only The urinary excretion of sodium, potassium and chloride varies significantly with dietary intake. The values given here are typical of people on average diet. Duration in hours 24.0 h RUKHSANA 05/19/2024 6:41 PM STUDENT COUNSELOR [facility] Comment: started 05/18/24 11:40am started 05/18/24 11:40am started 05/18/24 11:40am Volume in mL 2,200 mL RUKHSANA 05/19/2024 6:41 PM STUDENT COUNSELOR [facility] Comment: ended 05/19/24 11:40am ended 05/19/24 11:40am ended 05/19/24 11:40am Urine URINE SPECIMEN OBTAINED BY CLEAN CATCH PROCEDURE / Unknown Non-blood Collection / Unknown 05/19/2024 11:56 AM STUDENT COUNSELOR 05/19/2024 12:10 PM STUDENT COUNSELOR us Javon Devine MD LAB - URINE ORDERABLES Final Res ult Performing Organization Address City/[facility]/ZIP Co de Phone Number [facility] Core Lab [address], [address] [place] [phone] * Calcium timed urine (05/19/2024 11:54 AM STUDENT COUNSELOR) Calcium Urine mg/dL 9.2 mg/dL 05/19/2024 6:53 PM STUDENT COUNSELOR [facility] Comment:The reference ranges have not been established in urine calcium. The results should be integrated into the clinical context for interpretation. Duration in hours 24.0 h RUKHSANA 05/19/2024 6:53 PM STUDENT COUNSELOR [facility] Comment: Started 05/18/24 11:40am Started 05/18/24 11:40am Started 05/18/24 11:40am Volume in mL 2,200 mL RUKHSANA 05/19/2024 6:53 PM STUDENT COUNSELOR [facility] Comment: ended 11:40am 05/19/24 ended 11:40am 05/19/24 ended 11:40am 05/19/24 Calcium Urine g/spec 0.20 0.10 - 0.30 g/spec 05/19/2024 6:53 PM STUDENT COUNSELOR [facility] Comment:Reference range appl icable for 24 hour only Urine URINE SPECIMEN OBTAINED BY CLEAN CATCH PROCEDURE / Unknown Non-blood Collection / Unknown 05/19/2024 11:54 AM STUDENT COUNSELOR 05/19/2024 12:09 PM STUDENT COUNSELOR us Javon Devine MD LAB - URINE ORDERABLES Final Res ult [facility] Lab [address], [address] [place] [phone] * Lactic acid whole blood (05/15/2024 7:14 PM STUDENT COUNSELOR) Lactic Acid 1.7 0.7 - 2.0 mmol/L 05/15/2024 7:23 PM STUDENT COUNSELOR [facility] Blood STRUCTURE OF LEFT HAND / Unknown Venipuncture / Unknown 05/15/2024 7:14 PM STUDENT COUNSELOR 05/15/2024 7:21 PM STUDENT COUNSELOR us Desire Najera PA-C LAB - BLOOD ORDERABLES Final Result Performing Organization Address City/[facility]/ZIP Co de Phone Number LABORATORY [facility] Lab [address] Lab (1st floor, no room number) [place] [phone] * Ketone Beta-Hydroxybutyrate Quantitative (05/15/2024 2:54 PM STUDENT COUNSELOR) Ketone (Beta-Hydroxybuty rate) Quantitative 0.25 <=0.30 mmol/L 05/15/2024 7:54 PM STUDENT COUNSELOR LABORATORY Blood STRUCTURE OF LEFT HAND / Unknown Venipuncture / Unknown 05/15/2024 2:54 PM STUDENT COUNSELOR 05/15/2024 3:03 PM STUDENT COUNSELOR Desire Najera PA-C LAB - BLOOD ORDERABLES Final Result Performing Organization Address [facility]/ZIP Co de Phone Number LABORATORY [facility] [address] Lab (1st floor, no room number) [place] [phone] * XR Pelvis 1/2 Views (04/23/2024 2:01 PM CDT) Anatomical Region Laterality Modality Abdomen/Pelvis Digital Radiogra phy Impressions 04/23/2024 2:08 PM CDT IMPRESSION: Right inferior pubic ramus fracture with similar alignment. No definite osseous bridging. There is normal joint alignment. No significant degenerative changes. DIANDRA RODRÍGUEZ MD SYSTEM ID: [id number] Narrative 04/23/2024 2:08 PM CDT XR PELVIS 1/2 VIEWS, XR FEMUR RIGHT 2 VIEWS 04/23/2024 2:01 PM HISTORY: fall, R hip pain COMPARISON: 03/20/2024 Procedure Note Diandra Rodríguez MD - 04/23/2024 XR PELVIS 1/2 VIEWS, XR FEMUR RIGHT 2 VIEWS 04/23/2024 2:01 PM HISTORY: fall, R hip pain COMPARISON: 03/20/2024 IMPRESSION: Right inferior pubic ramus fracture with similar alignment. No definite osseous bridging. There is normal joint alignment. No significant degenerative changes. DIANDRA RODRÍGUEZ MD SYSTEM ID: [id number] Jerry [facility] ORDERABL ES Final Result * CT Cervical Spine w/o Contrast (04/23/2024 1:59 PM CDT) Anatomical Region Laterality Modality Spine, SUBRAD CT NEURO, SUBR AD CT NEURO, UMP CT SPINE, RAD CT Computed Tomography Impressions 04/23/2024 2:23 PM CDT IMPRESSION: No acute cervical spine fracture. ANTHONY COOK MD SYSTEM ID: [id number] Narrative 04/23/2024 2:[address] CERVICAL SPINE W/O CONTRAST 04/23/2024 1:59 PM INDICATION: midline neck pain after fall; Neck pain; Trauma; Mild/moderate trauma; None of the following: Spondyloarthropathy, cervical x-ray with negative result, questionable finding, or inadequate coverage TECHNIQUE: CT scan of the cervical spine without contrast. Dose reduction techniques were used. COMPARISON: Cervical spine MRI 03/06/2022, cervical spine CT 06/09/2021 FINDINGS: Mild reversal of the usual cervical lordosis. Vertebral body heights preserved. No fracture. No prevertebral soft tissue swelling. Multilevel degenerative changes without evidence for high-grade spinal canal narrowing. Procedure Note Anthony Cook MD - 04/23/2024 CT CERVICAL SPINE W/O CONTRAST 04/23/2024 1:59 PM INDICATION: midline neck pain after fall; Neck pain; Trauma; Mild/moderate trauma; None of the following: Spondyloarthropathy, cervical x-ray with negative result, questionable finding, or inadequate coverage TECHNIQUE: CT scan of the cervical spine without contrast. Dose reduction techniques were used. COMPARISON: Cervical spine MRI 03/06/2022, cervical spine CT 06/09/2021 FINDINGS: Mild reversal of the usual cervical lordosis. Vertebral body heights preserved. No fracture. No prevertebral soft tissue swelling. Multilevel degenerative changes without evidence for high-grade spinal canal narrowing. IMPRESSION: No acute cervical spine fracture. ANTHONY COOK MD SYSTEM ID: [id number] us Jerry [address] CT ORDERABLES Final Result * XR Knee Right 1/2 Views (04/23/2024 1:59 PM CDT) Anatomical Region Laterality Modality Leg, Thigh, Knee Right Digital Radiogr aphy Impressions 04/23/2024 2:08 PM CDT IMPRESSION: No acute osseous abnormality demonstrated. DIANDRA RODRÍGUEZ MD SYSTEM ID: [id number] Narrative 04/23/2024 2:08 PM CDT KNEE ONE-TWO VIEWS RIGHT 04/23/2024 1:59 PM HISTORY: fall, RLE pain COMPARISON: None. FINDINGS: There is no significant degenerative change. No suprapatellar effusion. There is no acute fracture. No dislocation. There are no worrisome bony lesions. Procedure Note Diandra Rodríguez MD - 04/23/2024 KNEE ONE-TWO VIEWS RIGHT 04/23/2024 1:59 PM HISTORY: fall, RLE pain COMPARISON: None. FINDINGS: There is no significant degenerative change. No suprapatellar effusion. There is no acute fracture. No dislocation. There are no worrisome bony lesions. IMPRESSION: No acute osseous abnormality demonstrated. DIANDRA RODRÍGUEZ MD SYSTEM ID: [id number] Jerry Maya MD [facility] ORDERABL ES Final Result * XR Femur Right 2 Views (04/23/2024 1:57 PM CDT) Anatomical Region Laterality Modality Hip, Thigh, Knee Right Digital Radiogr aphy Impressions 04/23/2024 2:08 PM CDT IMPRESSION: Right inferior pubic ramus fracture with similar alignment. No definite osseous bridging. There is normal joint alignment. No significant degenerative changes. DIANDRA RODRÍGUEZ MD SYSTEM ID: [id number] Narrative 04/23/2024 2:08 PM CDT XR PELVIS 1/2 VIEWS, XR FEMUR RIGHT 2 VIEWS 04/23/2024 2:01 PM HISTORY: fall, R hip pain COMPARISON: 03/20/2024 Procedure Note Diandra Rodríguez MD - 04/23/2024 XR PELVIS 1/2 VIEWS, XR FEMUR RIGHT 2 VIEWS 04/23/2024 2:01 PM HISTORY: fall, R hip pain COMPARISON: 03/20/2024 IMPRESSION: Right inferior pubic ramus fracture with similar alignment. No definite osseous bridging. There is normal joint alignment. No significant degenerative changes. DIANDRA RODRÍGUEZ MD SYSTEM ID: [id number] Jerry Maya MD [facility] ORDERABL ES Final Result * (ABNORMAL) 1,25 Dihydroxyvitamin D (04/23/2024 12:28 PM CDT) 1,25 Dihydroxyvitamin D <5.0(L) 19.9 - 79.3 pg/mL 04/24/2024 12:46 PM CDT [facility] DO Blood STRUCTURE OF RIGHT UPPER LIMB / Unknown Venipuncture / Unknown 04/23/2024 12:28 PM CDT 04/23/2024 12:36 PM CDT Diane Dominguez MD LAB - BLOOD ORDERABLES Final Res ult [facility] [address] [facility] [address], [address] from Last 3 Months or Most Recently Relevant to Health Maintenance Insurance MEDICARE none (Work) [address] [place] [id number] [place] [id number] [place] [id number] [place] [id number] Advance Directives For more information, please contact: [phone] * Full Code (Latest Code Status on File) Date Activated Date Inactivated Comments 07/01/2024 5:21 PM 07/03/2024 3:09 PM All basic and advanced life-sustaining interventions are performed as appropriate Question Answer Comments Code status determined by: Discussion with patie nt/ legal decision maker * Full Code Date Activated Date Inactivated Comments 06/20/2024 1:28 PM 07/01/2024 11:20 AM Question Answer Comments Code status determined by: Discussion with patie nt/ legal decision maker * Full Code Date Activated Date Inactivated Comments 06/16/2024 10:11 PM 06/20/2024 1:28 PM All basic and advanced life-sustaining interventions are performed as appropriate Question Answer Comments Code status determined by: Discussion with patie nt/ legal decision maker * Full Code Date Activated Date Inactivated Comments 05/29/2024 6:48 PM 05/31/2024 7:58 PM All basic an d advanced life-sustaining interventions are performed as appropriate Question Answer Comments Code status determined by: Discussion with patie nt/ legal decision maker * Full Code Date Activated Date Inactivated Comments 05/15/2024 6:43 PM 05/19/2024 2:25 PM All basic and advanced life-sustaining interventions are performed as appropriate Question Answer Comments Code status determined by: Discussion with isac nt/ legal decision maker Care Teams Nurse Practitioner Adult Relationship Specialty Start [place] [id number] [place] [address] PCP - General 03/07/24
--- OUTSIDE RECORDS SUMMARY | 2024-07-08 17:31 | XMS_ITS | Referral Summary ---
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 Name Role Phone Gregg Corrales MD Primary Care Provider Encounters Date Type Department Care Team Description 07/01/2024 2:04 PM [employer] - 07/03/2024 1:06 PM [employer] Hospital Encounter [facility] 3 Medical Surgical [address] [place] [id number] Jesus Bobby MD Baxa, Alexander, DO Intractable nausea and vomiting; Gitelman syndrome; Hypokalemia; Hyponatremia; Hypercalcemia; BARBARA (acute kidney injury); Headache, unspecified headache type; Prolonged Q-T interval on ECG Discharge Disposition: Left Against Medical Advice 07/01/2024 Travel 06/30/2024 MyC Medical Advice [facility] [address] [place] [address] [address],[place] [address] Lucia Mora 06/24/2024 Transcribe Orders GENERIC EXTERNAL DATA DEPARTMENT Provider, Generic External Data Hypokalemia (Primary Dx); Alkalosis 06/16/2024 5:01 PM [employer] - 06/20/2024 1:46 PM [employer] Hospital Encounter [facility] 5 Medical Surgical [address] [place] [address] Jamil Madison MD Sebring, Daniel L, MD Hypokalemic alkalosis (Primary Dx); Hypokalemia; Acute kidney injury; Knee injury, left, initial encounter Discharge Disposition: Home or Self Care 06/16/2024 Travel 06/13/2024 Medical Correspondence [facility] Information Management [address] [place] [address] Scan, Non-Provider 05/29/2024 1:58 PM [employer] - 05/31/2024 5:58 PM [employer] [facility] [address] [place] [address] Jamil Carlin MD Bray, Scott, MD Hypokalemia; BARBARA (acute kidney injury); Hypercalcemia; Alkalosis; Gitelman disease Discharge Disposition: Left Against Medical Advice 05/29/2024 Travel 05/15/2024 2:33 PM [employer] - 05/19/2024 12:20 PM [employer] Hospital Encounter [facility] [address] [place] [address] Lucio Anthony MD Cabrera, Jesus F, MD Hypokalemia; Hypercalcemia; BARBARA (acute kidney injury) Discharge Disposition: Home or Self Care 05/15/2024 Travel 04/23/2024 Travel 04/23/2024 11:58 AM CDT - 04/23/2024 7:05 PM CDT Emergency [facility] Emergency Dept [address] [place] [address] Jerry Maya MD Lindenbaum, Elan, MD Khan, Sana, MD BARBARA (acute kidney injury); Hypokalemia; Hypochloremia; Right hip pain Discharge Disposition: Home or Self Care from [...] daily as needed for constipation . 03/23/20 24 Active gabapentin (NEURONTIN) 300 MG capsule Take [...] mEq) by mouth 3 times daily. 06/20/20 24 Active Multiple Vitamins-Iron (ONE DAILY MULTIVITAMIN/IR ON [...] Acute kidney injury 01/31/2023 Metabolic alkalosis 11/04/2022 [id number] kidney injury 11/04/2022 Myalgia, multiple sites 07/29/2022 [...] confirm. 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 Not on file Not on file Last Filed Vital Signs Vital Sign Reading Time Taken Comments Blood Pressure 123/71 07/03/2024 9:07 AM [employer] Pulse 87 07/03/2024 9:07 AM [employer] Temperature 36.7 C (98 F) 07/03/2024 9:07 AM [employer] Respiratory Rate 16 07/03/2024 9:07 AM [employer] Oxygen Saturation 99% 07/03/2024 9:07 AM [employer] Inhaled Oxygen Concentration - - Weight 49 kg (108 lb) 07/02/2024 5:51 PM [employer] Height 170.2 cm (5' 7) 07/01/2024 11:26 AM [employer] Body Mass Index 16.92 07/01/2024 11:26 AM [employer] Plan of Treatment Upcoming Encounters Date Type Department Care Team (Late st Contact Info) Description 07/09/2024 11:00 AM [employer] Virtual Visit [facility] [address] [facility] [address],[place] [address] [place] [address] [place], [place] [phone] [place] [facility] [address] [facility] [address] [place] [address] Procedures Procedure Name Priority Date/Time Associated Diagnosis Comments MAGNESIUM Routine 07/03/2024 5:58 AM [employer] FERRITIN Routine 07/03/2024 5:58 AM [employer] IRON AND IRON BINDING CAPACITY Routine 07/03/2024 5:58 AM [employer] BASIC METABOLIC PANEL Routine 07/03/2024 5:58 AM [employer] CBC WITH PLATELETS Routine 07/03/2024 5: 58 AM [employer] POTASSIUM Timed 07/03/2024 5:58 AM [employer] POTASSIUM Timed 07/02/2024 11:55 PM [employer] POTASSIUM STAT 07/02/2024 5:36 PM [employer] POTASSIUM STAT 07/02/2024 12:13 PM [employer] BICARBONATE URINE Add-On 07/02/2024 9:5 3 AM [employer] OSMOLALITY Add-On 07/02/2024 8:30 AM [employer] MAGNESIUM STAT 07/02/2024 8:30 AM [employer] CBC WITH PLATELETS STAT 07/02/2024 8: 30 AM [employer] BASIC METABOLIC PANEL STAT 07/02/2024 8:30 AM [employer] MAGNESIUM Add-On 07/01/2024 11:34 PM [employer] BASIC METABOLIC PANEL STAT 07/01/2024 11:34 PM [employer] CT ABDOMEN PELVIS W/O CONTRAST STAT 07/01/2024 9:17 PM [employer] FRACTIONAL EXCRETION OF SODIUM STAT 07/01/2024 9:07 PM [employer] OSMOLALITY, RANDOM URINE Add-On 025 9:07 PM [employer] POTASSIUM RANDOM URINE Add-On 9:07 PM [employer] CHLORIDE RANDOM URINE STAT 07/01/2024 9:07 PM [employer] FRACTIONAL EXCRETION OF SODIUM STAT 07/01/2024 9:07 PM [employer] ROUTINE UA WITH MICROSCOPIC REFLEX TO CULTURE STAT 07/01/2024 9:07 PM [employer] PHOSPHORUS Add-On 07/01/2024 7:18 PM [employer] BASIC METABOLIC PANEL STAT 07/01/2024 7:18 PM [employer] PTH RELATED PEPTIDE TEST STAT 025 7:18 PM [employer] PARATHYROID HORMONE INTACT STAT 07/01/2024 7:18 PM [employer] IONIZED CALCIUM STAT 07/01/2024 3:35 PM [employer] CBC WITH PLATELETS & DIFFERENTIAL STAT 07/01/2024 2:14 PM [employer] VITAMIN D DEFICIENCY SCREENING Add-On 07/01/2024 2:14 PM [employer] LIPASE STAT 07/01/2024 2:14 PM [employer] HEPATIC FUNCTION PANEL STAT 2:14 PM [employer] TROPONIN T, HIGH SENSITIVITY STAT 07/01/2024 2:14 PM [employer] MAGNESIUM STAT 07/01/2024 2:14 PM [employer] EXTRA BLUE TOP TUBE STAT 07/01/2024 2 :14 PM [employer] CBC WITH PLATELETS AND DIFFERENTIAL STAT 07/01/2024 2:14 PM [employer] EXTRA TUBE STAT 07/01/2024 2:14 PM [employer] HCG QUALITATIVE STAT 07/01/2024 2:14 PM [employer] BASIC METABOLIC PANEL STAT 07/01/2024 2:14 PM [employer] EKG 12-LEAD, TRACING ONLY STAT 07/01/2024 11:37 AM [employer] INFLUENZA A/B, RSV AND SARS-COV2 PCR STAT 07/01/2024 11:32 AM [employer] CBC WITH PLATELETS Routine 06/20/2024 7: 23 AM [employer] RENAL PANEL Routine 06/20/2024 7:23 AM [employer] MAGNESIUM Routine 06/20/2024 7:23 AM [employer] POTASSIUM RANDOM URINE Routine 5:13 PM [employer] CHLORIDE RANDOM URINE Routine 06/19/2024 5:13 PM [employer] SODIUM RANDOM URINE Routine 06/19/2024 5 :13 PM [employer] BASIC METABOLIC PANEL Routine 06/19/2024 6:36 AM [employer] PHOSPHORUS Routine 06/19/2024 6:36 AM [employer] MAGNESIUM Routine 06/19/2024 6:36 AM [employer] BASIC METABOLIC PANEL Routine 06/18/2024 7:04 PM [employer] EKG 12-LEAD, TRACING ONLY Routine 06/18/2024 11:14 AM [employer] CBC WITH PLATELETS Routine 06/18/2024 6: 08 AM [employer] BASIC METABOLIC PANEL Timed 06/18/2024 6:08 AM [employer] PHOSPHORUS Routine 06/18/2024 6:08 AM [employer] MAGNESIUM Routine 06/18/2024 6:08 AM [employer] BASIC METABOLIC PANEL Timed 06/17/2024 10:14 PM [employer] POTASSIUM Timed 06/17/2024 7:28 PM [employer] PHOSPHORUS Timed 06/17/2024 7:28 PM [employer] OSMOLALITY Routine 06/17/2024 1:48 PM [employer] POTASSIUM Timed 06/17/2024 1:48 PM [employer] BASIC METABOLIC PANEL Timed 06/17/2024 1:48 PM [employer] CREATININE RANDOM URINE Routine 06/17/20 24 1:39 PM [employer] POTASSIUM RANDOM URINE Routine 4 1:39 PM [employer] OSMOLALITY, RANDOM URINE Routine 024 1:39 PM [employer] CHLORIDE RANDOM URINE Routine 06/17/2024 1:39 PM [employer] SODIUM RANDOM URINE Routine 06/17/2024 1 :39 PM [employer] MR KNEE LEFT W/O CONTRAST Routine 06/17/2024 11:35 AM [employer] POTASSIUM Timed 06/17/2024 10:11 AM [employer] PHOSPHORUS Routine 06/17/2024 6:52 AM [employer] MAGNESIUM Routine 06/17/2024 6:52 AM [employer] CBC WITH PLATELETS Routine 06/17/2024 6: 52 AM [employer] BASIC METABOLIC PANEL Routine 06/17/2024 6:52 AM [employer] POTASSIUM Timed 06/17/2024 1:33 AM [employer] PHOSPHORUS Add-On 06/16/2024 7:31 PM [employer] MAGNESIUM Add-On 06/16/2024 7:31 PM [employer] BASIC METABOLIC PANEL STAT 06/16/2024 7:31 PM [employer] XR KNEE LEFT 3 VIEWS STAT 06/16/2024 6:16 PM [employer] CBC WITH PLATELETS & DIFFERENTIAL STAT 06/16/2024 5:53 PM [employer] CBC WITH PLATELETS AND DIFFERENTIAL STAT 06/16/2024 5:53 PM [employer] TROPONIN T, HIGH SENSITIVITY STAT 06/16/2024 5:53 PM [employer] EKG 12-LEAD, TRACING ONLY STAT 06/16/2024 5:40 PM [employer] PHOSPHORUS Timed 05/31/2024 5:27 PM [employer] CT KNEE LEFT W/O CONTRAST Routine 05/31/2024 2:33 PM [employer] PARATHYROID HORMONE INTACT Routine 05/31/2024 8:35 AM [employer] PHOSPHORUS Routine 05/31/2024 8:35 AM [employer] MAGNESIUM Routine 05/31/2024 8:35 AM [employer] COMPREHENSIVE METABOLIC PANEL Routine 05/31/2024 8:35 AM [employer] AMMONIA Routine 05/31/2024 8:35 AM [employer] EKG 12-LEAD, TRACING ONLY Routine 05/30/2024 11:41 AM [employer] POTASSIUM Timed 05/30/2024 10:08 AM [employer] PHOSPHORUS Routine 05/30/2024 8:02 AM [employer] MAGNESIUM Routine 05/30/2024 8:02 AM [employer] CBC WITH PLATELETS Routine 05/30/2024 8: 02 AM [employer] BASIC METABOLIC PANEL Timed 05/30/2024 8:02 AM [employer] POTASSIUM Timed 05/30/2024 4:25 AM [employer] BASIC METABOLIC PANEL Timed 05/29/2024 10:00 PM [employer] PHOSPHORUS Add-On 05/29/2024 4:50 PM [employer] POTASSIUM STAT 05/29/2024 4:50 PM [employer] XR ANKLE LEFT G/E 3 VIEWS STAT 05/29/2024 4:02 PM [employer] XR KNEE LEFT 3 VIEWS STAT 05/29/2024 4:02 PM [employer] EXTRA RED TOP TUBE STAT 05/29/2024 2: 41 PM [employer] EXTRA BLUE TOP TUBE STAT 05/29/2024 2 :41 PM [employer] ALBUMIN RANDOM URINE QUANTITATIVE STAT 05/29/2024 2:41 PM [employer] ROUTINE UA WITH MICROSCOPIC STAT 05/29/2024 2:41 PM [employer] PROTEIN RANDOM URINE STAT 05/29/2024 2:41 PM [employer] CHLORIDE RANDOM URINE STAT 05/29/2024 2:41 PM [employer] POTASSIUM RANDOM URINE STAT 2:41 PM [employer] SODIUM RANDOM URINE STAT 05/29/2024 2 :41 PM [employer] EXTRA TUBE STAT 05/29/2024 2:41 PM [employer] TSH WITH FREE T4 REFLEX STAT 05/29/20 24 2:41 PM [employer] MAGNESIUM STAT 05/29/2024 2:41 PM [employer] COMPREHENSIVE METABOLIC PANEL STAT 05/29/2024 2:41 PM [employer] CBC WITH PLATELETS STAT 05/29/2024 2: 41 PM [employer] BLOOD GAS VENOUS STAT 05/29/2024 2:41 PM [employer] EKG 12-LEAD, TRACING ONLY STAT 05/29/2024 2:10 PM [employer] SODIUM TIMED URINE Routine 05/19/2024 12 :02 PM [employer] POTASSIUM TIMED URINE Routine 05/19/2024 12:00 PM [employer] PHOSPHORUS TIMED URINE Routine 11:59 AM [employer] MAGNESIUM TIMED URINE Routine 05/19/2024 11:58 AM [employer] CHLORIDE TIMED URINE Routine 05/19/2024 11:56 AM [employer] CALCIUM TIMED URINE Routine 05/19/2024 1 1:54 AM [employer] MAGNESIUM Routine 05/19/2024 7:41 AM [employer] CBC WITH PLATELETS Routine 05/19/2024 7: 41 AM [employer] RENAL PANEL Routine 05/19/2024 7:41 AM [employer] MAGNESIUM Timed 05/18/2024 12:53 PM [employer] POTASSIUM Timed 05/18/2024 12:53 PM [employer] PHOSPHORUS Timed 05/18/2024 12:53 PM [employer] CHLORIDE RANDOM URINE STAT 05/18/2024 10:25 AM [employer] POTASSIUM RANDOM URINE STAT 10:25 AM [employer] SODIUM RANDOM URINE STAT 05/18/2024 1 0:25 AM [employer] MAGNESIUM Routine 05/18/2024 6:51 AM [employer] CBC WITH PLATELETS Routine 05/18/2024 6: 51 AM [employer] RENAL PANEL Routine 05/18/2024 6:51 AM [employer] POTASSIUM Timed 05/17/2024 3:16 PM [employer] CBC WITH PLATELETS Routine 05/17/2024 6: 47 AM [employer] RENAL PANEL Routine 05/17/2024 6:47 AM [employer] MAGNESIUM Routine 05/17/2024 6:47 AM [employer] POTASSIUM Timed 05/17/2024 1:37 AM [employer] POTASSIUM Timed 05/16/2024 6:29 PM [employer] POTASSIUM Timed 05/16/2024 12:33 PM [employer] POTASSIUM Timed 05/16/2024 9:47 AM [employer] PHOSPHORUS Routine 05/16/2024 7:12 AM [employer] MAGNESIUM Routine 05/16/2024 7:12 AM [employer] BASIC METABOLIC PANEL Routine 05/16/2024 7:12 AM [employer] POTASSIUM Timed 05/16/2024 1:11 AM [employer] LACTIC ACID WHOLE BLOOD Routine 05/15/20 7:14 PM [employer] POTASSIUM Timed 05/15/2024 7:14 PM [employer] CBC WITH PLATELETS & DIFFERENTIAL STAT 05/15/2024 2:54 PM [employer] KETONE BETA-HYDROXYBUTYRATE QUANTITATIVE, RAPID Add-On 05/15/2024 2:54 PM [employer] MAGNESIUM STAT 05/15/2024 2:54 PM [employer] EXTRA BLUE TOP TUBE STAT 05/15/2024 2 :54 PM [employer] CBC WITH PLATELETS AND DIFFERENTIAL STAT 05/15/2024 2:54 PM [employer] HCG QUALITATIVE STAT 05/15/2024 2:54 PM [employer] EXTRA TUBE STAT 05/15/2024 2:54 PM [employer] BASIC METABOLIC PANEL STAT 05/15/2024 2:54 PM [employer] EKG 12-LEAD, TRACING ONLY STAT 05/15/2024 2:12 PM [employer] PARATHYROID HORMONE INTACT STAT 04/23/2024 6:18 PM CDT XR PELVIS 1/2 VIEWS STAT 04/23/2024 2 :[address] CERVICAL SPINE W/O CONTRAST STAT 04/23/2024 1:59 PM CDT XR KNEE RIGHT 1/2 VIEWS STAT 04/23/20 24 1:59 PM CDT XR FEMUR RIGHT 2 [...] Maintenance Results * Potassium (07/03/2024 5:58 AM [employer]) Only the most recent of19 resultswithin the time period is included. Potassium 3.4 3.4 - 5.3 mmol/L 07/03/2024 6:51 AM [employer] LABORATORY Blood STRUCTURE OF RIGHT HAND / Unknown Venipuncture / Unknown 07/03/2024 5:58 AM [employer] 07/03/2024 6:16 AM [employer] Michel Dotson DO LAB - BLOOD ORDERABLES Fi nal Result [facility] Acute Care Lab [address] [facility] Lab (1st floor, no room number) [place] [address] * Magnesium (07/03/2024 5:58 AM [employer]) Only the most recent of19 resultswithin the time period is included. Magnesium 1.8 1.7 - 2.3 mg/dL 07/03/2024 6:51 AM [employer] LABORATORY Blood STRUCTURE OF RIGHT HAND / Unknown Venipuncture / Unknown 07/03/2024 5:58 AM [employer] 07/03/2024 6:16 AM [employer] Michel Dotson DO LAB - BLOOD ORDERABLES Fi nal Result [facility] Acute Care Lab [address] Lab (1st floor, no room number) [place] [address] * Iron and iron binding capacity (07/03/2024 5:58 AM [employer]) Iron 67 37 - 145 ug/dL 07/03/2024 6:51 AM [employer] Iron Binding Capacity 284 240 - 430 ug/dL 07/03/2024 6:51 AM [employer] Iron Sat Index 24 15 - 46 % 07/03/2024 6:51 AM [employer] Blood STRUCTURE OF RIGHT HAND / Unknown Venipuncture / Unknown 07/03/2024 5:58 AM [employer] 07/03/2024 6:16 AM [employer] us Mike Teran MD LAB - BLOOD ORDERABLES Final Result Performing Organization Address [facility]/ZIP Co de Phone Number [facility] Acute Care Lab [address] Lab (1st floor, no room number) [place] [phone] * Ferritin (07/03/2024 5:58 AM [employer]) Ferritin 28 6 - 175 ng/mL 07/03/2024 11:52 AM [employer] [facility] Blood STRUCTURE OF RIGHT HAND / Unknown Venipuncture / Unknown 07/03/2024 5:58 AM [employer] 07/03/2024 7:43 AM [employer] us Mike Teran MD LAB - BLOOD ORDERABLES Final Result [facility] [place] [facility] [address] [facility], [address] [place] [address] * (ABNORMAL) Basic metabolic panel (07/03/2024 5:58 AM [employer]) Only the most recent of17 resultswithin the time period is included. Sodium 142 135 - 145 mmol/L 07/03/2024 6:55 AM [employer] [facility] [employer] [facility] LABORATORY Potassium 3.4 3.4 - 5.3 mmol/L 07/03/2024 6:55 AM [facility] Chloride 100 98 - 107 mmol/L 07/03/2024 6:55 AM [facility] Carbon Dioxide (CO2) 31(H) 22 - 29 mmol/L 07/03/2024 6:55 AM [facility] Anion Gap 11 7 - 15 mmol/L 07/03/2024 6:55 AM [facility] Urea Nitrogen 28.4(H) 6.0 - 20.0 mg/dL 07/03/2024 6:55 AM [facility] Creatinine 1.53(H) 0.51 - 0.95 mg/dL 07/03/2024 6:55 AM [facility] GFR Estimate 46(L) >60 mL/min/1.7 3m2 07/03/2024 6:55 AM [facility] Comment:eGFR calculated usin 2020 CKD-EPI equation. Calcium 9.1 8.8 - 10.4 mg/dL 07/03/2024 6:55 AM [facility] Comment:Reference intervals for this test were updated on 01/08/2024 to reflect our healthy population more accurately. There may be differences in the flagging of prior results with similar values performed with this method. Those prior results can be interpreted in the context of the updated reference intervals. Glucose 91 70 - 99 mg/dL 07/03/2024 6:55 AM [facility] Blood STRUCTURE OF RIGHT HAND / Unknown Venipuncture / Unknown 07/03/2024 5:58 AM [employer] 07/03/2024 6:16 AM [facility] Michel Dotson DO LAB - BLOOD ORDERABLES Fi nal Result LABORATORY [facility] Acute Care Lab [address] [facility] Lab (1st floor, no room number) [place] [address], [facility] * (ABNORMAL) CBC with platelets (07/03/2024 5:58 AM [employer]) Only the most recent of10 resultswithin the time period is included. WBC Count 6.8 4.0 - 11.0 10e3/uL 07/03/2024 6:22 AM [facility] [facility]OR[facility] RBC Count 2.70(L) 3.80 - 5.20 10e6/uL 07/03/2024 6:22 AM [facility] [facility] [facility] Hemoglobin 7.3(L) 11.7 - 15.7 g/dL 07/03/2024 6:22 AM [facility] [facility] Hematocrit 22.0(L) 35.0 - 47.0 % 07/03/2024 6:22 AM [employer] [facility] MCV 82 78 - 100 fL 07/03/2024 6:22 AM [employer] [facility] MCH 27.0 26.5 - 33.0 pg 07/03/2024 6:22 AM [employer] [facility] MCHC 33.2 31.5 - 36.5 g/dL 07/03/2024 6:22 AM [employer] [facility] RDW 15.0 10.0 - 15.0 % 07/03/2024 6:22 AM [facility] [facility] Platelet Count 282 150 - 450 10e3/uL 07/03/2024 6:22 AM [employer] [facility] Blood STRUCTURE OF RIGHT HAND / Unknown Venipuncture / Unknown 07/03/2024 5:58 AM [employer] 07/03/2024 6:16 AM [employer] Michel Dotson DO LAB - BLOOD ORDERABLES Fi nal Result LABORATORY [facility] [address] [facility] (1st floor, no room number) [place] [address], [facility] * Bicarbonate urine (07/02/2024 9:53 AM [employer]) Bicarbonate Urine 11 mmol/L 07/03/2024 3:18 AM [employer] [facility] Comment: INTERPRETIVE INFORMATION: Bicarbonate (HCO3), Urine Reference Interval has not been defined for Bicarbonate, Urine. See Compliance Statement B: [email or web address] Performed At: [facility] ([facility]) [facility] [place] [address] Account Development Manager: REJI LOPEZ DO CLIA Number: [id number] Urine MID-STREAM URINE SPECIMEN / Unknown Non-blood Collection / Unknown 07/02/2024 9:53 AM [employer] 07/02/2024 9:56 AM [employer] us Mike Teran MD LAB - URINE ORDERABLES Final Result [facility] [address] [place] [address], [facility] [phone] * (ABNORMAL) Osmolality (07/02/2024 8:30 AM [employer]) Only the most recent of2 resultswithin the time period is included. Osmolality Blood 299(H) 275 - 295 mmol/kg 07/02/2024 1:25 PM [employer] [facility] Blood STRUCTURE OF RIGHT HAND / Unknown Venipuncture / Unknown 07/02/2024 8:30 AM [employer] 07/02/2024 8:45 AM [employer] Narrative [facility] - 07/02/2024 1:25 PM [employer] Greater than 385 mmol/kg relates to stupor in hyperglycemia Greater than 400 mmol/kg can relate to seizures Greater than 420 mmol/kg can be lethal Serum Osmalar Gap: Normal <10 Larger suggest unmeasured substances present in serum (ethanol, methanol, isopropanol, mannitol, ethylene glycol). us Mike Teran MD LAB - BLOOD ORDERABLES Final Result Performing Organization Address City/[facility] Co de Phone Number [facility] LABORATORY [facility] [place] [facility] [address] [facility], Room [address] [phone] * CT Abdomen Pelvis w/o Contrast (07/01/2024 9:17 PM [employer]) Anatomical Region Laterality Modality Abdomen/Pelvis, SUBRAD CT LUDA DY, UMP CT ABDOMEN PELVIS, RAD CT Computed Tomography 07/01/2024 9:17 PM [employer] Impressions 07/01/2024 10:02 PM [employer] IMPRESSION: 1. No acute findings or inflammatory changes in the abdomen or pelvis. No bowel obstruction. 2. Subacute right inferior pubic ramus fracture. Narrative 07/01/2024 10:02 PM [employer] EXAM: CT ABDOMEN PELVIS W/O CONTRAST LOCATION: [facility] DATE: 07/01/2024 INDICATION: Abdominal pain, nausea, and [...] EXAM: CT ABDOMEN PELVIS W/O CONTRAST LOCATION: [facility] DATE: 07/01/2024 INDICATION: Abdominal pain, nausea, and [...] inferior pubic ramus fracture. Nain Locke DO [facility] [place] ORDERABLES Final Result * Fractional Excretion of Sodium (07/01/2024 9:07 PM [employer]) Creatinine Urine mg/dL 86.1 mg/dL 07/01/2024 9:36 PM [employer] [facility] Sodium Urine mmol/L 22 mmol/L 07/01/2024 9:36 PM [employer] %FENA 0.6 % 07/01/2024 9:36 PM [employer] Comment: Adult: <1 percent Indicates prerenal azotemia >3 percent Suggests acute tubular necrosis Neonates: <2.5 percent Suggest prerenal azotemia >2.5 percent Suggest acute tubular necrosis Urine MID-STREAM URINE SPECIMEN / Unknown Non-blood Collection / Unknown 07/01/2024 9:07 PM [employer] 07/01/2024 9:11 PM [employer] Nain Locke DO LAB - URINE ORDERABLES Final R esult LABORATORY [facility] Lab [address] Lab (1st floor, no room number) [place] [address] * (ABNORMAL) UA with Microscopic reflex to Culture (07/01/2024 9:07 PM [employer]) Color Urine Straw Colorless, Straw, Light Yellow, Yellow 07/01/2024 9:19 PM [facility] Appearance Urine Clear Clear 07/01/19 25 9:19 PM [employer] LABORATORY Glucose Urine Negative Negative mg/dL 07/01/2024 9:19 PM [employer] LABORATORY Bilirubin Urine Negative Negative 9:19 PM [employer] LABORATORY Ketones Urine Negative Negative mg/dL 07/01/2024 9:19 PM [employer] LABORATORY Specific [place] Urine 1.016 1.003 - 1.035 07/01/2024 9:19 PM [employer] LABORATORY Blood Urine Negative Negative 07/01/2024 9:19 PM [facility] pH Urine 6.5 5.0 - 7.0 07/01/2024 9:19 PM [employer] LABORATORY Protein Albumin Urine 30(A) Negative mg/dL 07/01/2024 9:19 PM [facility] Urobilinogen Urine Normal Normal, 2.0 mg/dL 07/01/2024 9:19 PM [employer] LABORATORY Nitrite Urine Negative Negative 07/01/2024 9:19 PM [employer] [facility] [employer] [facility] LABORATORY Leukocyte Esterase Urine Negative Negative 07/01/2024 9:19 PM [employer] [employer] LABORATORY Mucus Urine Present(A) None Seen /LPF 07/01/2024 9:19 PM [employer] LABORATORY RBC Urine 1 <=2 /HPF 07/01/2024 9:19 PM [employer] [employer] LABORATORY WBC Urine 1 <=5 /HPF 07/01/2024 9:19 PM [employer] LABORATORY Squamous Epithelials Urine 1 <=1 /HPF 07/01/2024 9:19 PM [employer] LABORATORY Urine MID-STREAM URINE SPECIMEN / Unknown Non-blood Collection / Unknown 07/01/2024 9:07 PM [employer] 07/01/2024 9:11 PM [employer] Narrative [facility] - 07/01/2024 9:19 PM [employer] Urine Culture not indicated us Nain Locke DO LAB - URINE ORDERABLES Final R esult LABORATORY [facility] Acute Care Lab [address] Lab (1st floor, no room number) [place] [address], [facility] * Potassium random urine (07/01/2024 9:07 PM [employer]) Only the most recent of5 resultswithin the time period is included. Potassium Urine 43.8 mmol/L 11:52 AM [employer] [facility] Comment:The reference ranges have not been established in urine potassium. The results should be integrated into the clinical context for interpretation. Urine MID-STREAM URINE SPECIMEN / Unknown Non-blood Collection / Unknown 07/01/2024 9:07 PM [employer] 07/01/2024 9:11 PM [employer] us Mike Teran MD LAB - URINE ORDERABLES Final Result [facility] LABORATORY [facility] Core Lab [address] [facility], Room [address] [phone] * Osmolality urine (07/01/2024 9:07 PM [employer]) Only the most recent of2 resultswithin the time period is included. Osmolality Urine 311 100 - 1,200 mmol/kg 07/02/2024 11:01 AM [employer] [facility] Urine MID-STREAM URINE SPECIMEN / Unknown Non-blood Collection / Unknown 07/01/2024 9:07 PM [employer] 07/01/2024 9:11 PM [employer] Narrative [facility] LABORATORY - 07/02/2024 11:01 AM [employer] Reference Ranges depend on patient's hydration status and renal function. Neonates: 75-300 mmol/kg 2 years and older, random specimens: 100-1200 mmol/kg; Greater than 850 mmol/kg after 12 hour fluid restriction Urine/serum osmolality ratio: 2 years and older: 1.0-3.0; 3.0-4.7 after 12 hour fluid restriction us Mike Teran MD LAB - URINE ORDERABLES Final Result Performing Organization Address City/[facility] de Phone Number LABORATORY [facility] [address] [facility], [address] * Chloride random urine (07/01/2024 9:07 PM [employer]) Only the most recent of5 resultswithin the time period is included. Chloride Urine mmol/L <20 mmol/L 07/02/2024 11:34 AM [employer] LABORATORY Comment:The reference ranges have not been established in urine chloride. The results should be integrated into the clinical context for interpretation. Urine MID-STREAM URINE SPECIMEN / Unknown Non-blood Collection / Unknown 07/01/2024 9:07 PM [employer] 07/01/2024 9:11 PM [employer] us Mike Teran MD LAB - URINE ORDERABLES Final Result Performing Organization Address [facility] de Phone Number LABORATORY [facility] Core Lab [address] [facility], [address] [place], [place] [id number] * PTH Related Peptide Test (07/01/2024 7:18 PM [employer]) Parathyroid Hormone-Related Peptide (PTHRP) 1.6 < or = 4.2 pmol/L 07/07/2024 2:55 PM [employer] [facility] Comment: ADDITIONAL INFORMATION This test was developed and its performance characteristics determined by [facility] in a manner consistent with CLIA requirements. This test has not been cleared or approved by the U.S. Food and Drug Administration. Test Performed by: [facility] [address] [address] [place] [address] University Internship: Alvaro Renner Ph.D.; CLIA# [id number] Blood STRUCTURE OF RIGHT UPPER LIMB / Unknown Venipuncture / Unknown 07/01/2024 7:18 PM [employer] 07/01/2024 7:27 PM [employer] Nain Locke DO LAB - BLOOD ORDERABLES Final R esult [facility] [address] [place], [place] [address] [phone] * Phosphorus (07/01/2024 7:18 PM [employer]) Only the most recent of12 resultswithin the time period is included. Phosphorus 3.3 2.5 - 4.5 mg/dL 07/01/2024 9:41 PM [employer] LABORATORY Blood STRUCTURE OF RIGHT UPPER LIMB / Unknown Venipuncture / Unknown 07/01/2024 7:18 PM [employer] 07/01/2024 7:27 PM [employer] Nain Locke DO LAB - BLOOD ORDERABLES Final R eleni LABORATORY [facility] Lab [address] [facility] Lab (1st floor, no room number) [place] [address] * Parathyroid Hormone Intact (07/01/2024 7:18 PM [employer]) Only the most recent of3 resultswithin the time period is included. Parathyroid Hormone Intact 28 15 - 65 pg/mL 07/01/2024 7:51 PM [employer] LABORATORY Blood STRUCTURE OF RIGHT UPPER LIMB / Unknown Venipuncture / Unknown 07/01/2024 7:18 PM [employer] 07/01/2024 7:27 PM [employer] Narrative LABORATORY - 07/01/2024 7:51 PM [employer] This result was obtained with the Kaila Elecsys PTH STAT assay. This reference range differs from PTH assays used in other [facility] laboratories. Nain Locke DO LAB - BLOOD ORDERABLES Final R esult [facility] Lab [address] Lab (1st floor, no room number) [address] * (ABNORMAL) Ionized Calcium (07/01/2024 3:35 PM [employer]) Pathologist [facility] Calcium Ionized Whole Blood 5.6(H) 4.4 - 5.2 mg/dL 07/01/2024 3:45 PM [employer] LABORATORY Blood VENOUS LINE / Unknown Venipuncture / Unknown 07/01/2024 3:35 PM [employer] 07/01/2024 3:42 PM [employer] Jesus Bobby MD LAB - BLOOD ORDERABLES F inal Result Performing Organization Address City/[facility]/ZIP Co de Phone Number [facility] Lab [address] Lab (1st floor, no room number) [address] * Extra Blue Top Tube (07/01/2024 2:14 PM [employer]) Only the most recent of4 resultswithin the time period is included. [facility] Hold Specimen JIC 07/01/2024 3:31 PM [employer] LABORATORY Blood STRUCTURE OF RIGHT UPPER LIMB / Unknown Venipuncture / Unknown 07/01/2024 2:14 PM [employer] 07/01/2024 2:20 PM [employer] Jesus Bobby MD LAB - BLOOD ORDERABLES F inal Result [facility] Lab [address] Lab (1st floor, no room number) [address] * (ABNORMAL) CBC with platelets and differential (07/01/2024 2:14 PM [employer]) Only the most recent of4 resultswithin the time period is included. Pathologist [facility] WBC Count 9.1 4.0 - 11.0 10e3/uL 07/01/2024 2:23 PM [employer] [facility] RBC Count 4.12 3.80 - 5.20 10e6/uL 07/01/2024 2:23 PM [employer] [facility] Hemoglobin 11.1(L) 11.7 - 15.7 g/dL 07/01/2024 2:23 PM [employer] [facility] Hematocrit 32.0(L) 35.0 - 47.0 % 07/01/2024 2:23 PM [employer] [facility] MCV 78 78 - 100 fL 07/01/2024 2:23 PM [employer] [facility] MCH 26.9 26.5 - 33.0 pg 07/01/2024 2:23 PM [employer] [facility] MCHC 34.7 31.5 - 36.5 g/dL 07/01/2024 2:23 PM [employer] [facility] RDW 14.0 10.0 - 15.0 % 07/01/2024 2:23 PM [employer] Platelet Count 531(H) 150 - 450 10e3/uL 07/01/2024 2:23 PM [employer] [facility] % Neutrophils 70 % 07/01/2024 2:23 PM [employer] % Lymphocytes 20 % 07/01/2024 2:23 PM [employer] % Monocytes 7 % 07/01/2024 2:23 PM [employer] % Eosinophils 1 % 07/01/2024 2:23 PM [employer] % Basophils 1 % 07/01/2024 2:23 PM [employer] % Immature Granulocytes 0 % 07/01/2024 2:23 PM [employer] [facility] NRBCs per 100 WBC 0 <1 /100 025 2:23 PM [employer] [facility] Absolute Neutrophils 6.4 1.6 - 8.3 10e3/uL 07/01/2024 2:23 PM [employer] [facility] Absolute Lymphocytes 1.8 0.8 - 5.3 10e3/uL 07/01/2024 2:23 PM [employer] [facility] Absolute Monocytes 0.6 0.0 - 1.3 10e3/uL 07/01/2024 2:23 PM [employer] [facility] Absolute Eosinophils 0.1 0.0 - 0.7 10e3/uL 07/01/2024 2:23 PM [employer] [facility] Absolute Basophils 0.1 0.0 - 0.2 10e3/uL 07/01/2024 2:23 PM [employer] Absolute Immature Granulocytes 0.0 <=0.4 10e3/uL 07/01/2024 2:23 PM [employer] LABORATORY Absolute NRBCs 0.0 10e3/uL 07/01/2024 2:23 PM [employer] LABORATORY Blood STRUCTURE OF RIGHT UPPER LIMB / Unknown Venipuncture / Unknown 07/01/2024 2:14 PM [employer] 07/01/2024 2:20 PM [employer] Jesus Bobby MD LAB - BLOOD ORDERABLES F inal Result [facility] Acute Care Lab [address] Lab (1st floor, no room number) [place] [address] * Troponin T, High Sensitivity (07/01/2024 2:14 PM [employer]) Only the most recent of3 resultswithin the time period is included. [facility] Troponin T, High Sensitivity <6 <=14 ng/L 07/01/2024 2:45 PM [employer] [facility] Comment: Either a High Sensitivity Troponin [...] Unknown Venipuncture / Unknown 07/01/2024 2:14 PM [employer] 07/01/2024 2:20 PM [employer] Jesus Bobby MD LAB - BLOOD ORDERABLES F inal Result LABORATORY [facility] Lab [address] Lab (1st floor, no room number) [place] [address] * Vitamin D Deficiency (07/01/2024 2:14 PM [employer]) [facility] Vitamin D, Total (25-Hydroxy) 20 20 - 50 ng/mL 07/02/2024 4:14 AM [employer] [facility] LABORATORY Comment:optimum levels Blood STRUCTURE OF RIGHT UPPER LIMB / Unknown Venipuncture / Unknown 07/01/2024 2:14 PM [employer] 07/01/2024 2:20 PM [employer] Narrative U LABORATORY - 07/02/2024 4:14 AM [employer] Season, race, dietary intake, and treatment affect the concentration of 44-muquttd-Ewebkav D. Values may decrease during winter months and increase during summer months. Vitamin D determination is routinely performed by an immunoassay specific for 25 hydroxyvitamin D3. If an individual is on vitamin D2(ergocalciferol) supplementation, please specify 25 [place] vitamin D2 and D3 level determination by LCMSMS test [id number]. Nain Locke DO LAB - BLOOD ORDERABLES Final R esult LABORATORY [facility] [place] [facility] [address] [facility], [address] [place] [address] * Lipase (07/01/2024 2:14 PM [employer]) [facility] Lipase 29 13 - 60 U/L 07/01/2024 2:58 PM [employer] LABORATORY Blood STRUCTURE OF RIGHT UPPER LIMB / Unknown Venipuncture / Unknown 07/01/2024 2:14 PM [employer] 07/01/2024 2:20 PM [employer] Jesus Bobby MD LAB - BLOOD ORDERABLES F inal Result LABORATORY [facility] Lab [address] Lab (1st floor, no room number) [place] [address] * (ABNORMAL) Hepatic panel (07/01/2024 2:14 PM [employer]) [facility] Protein Total 8.8(H) 6.4 - 8.3 g/dL 07/01/2024 2:58 PM [employer] [facility] Albumin 5.6(H) 3.5 - 5.2 g/dL 07/01/2024 2:58 PM [employer] LABORATORY Bilirubin Total 0.3 <=1.2 mg/dL 07/01/2024 2:58 PM [employer] [facility] Alkaline Phosphatase 84 40 - 150 U/L 07/01/2024 2:58 PM [employer] LABORATORY AST 18 0 - 45 U/L 07/01/2024 2:58 PM [employer] LABORATORY ALT 9 0 - 50 U/L 07/01/2024 2:58 PM [employer] LABORATORY Bilirubin Direct <0.20 0.00 - 0.30 mg/dL 07/01/2024 2:58 PM [employer] LABORATORY Blood STRUCTURE OF RIGHT UPPER LIMB / Unknown Venipuncture / Unknown 07/01/2024 2:14 PM [employer] 07/01/2024 2:20 PM [employer] Jesus Bobby MD LAB - BLOOD ORDERABLES F inal Result [facility] Lab [address] [facility] Lab (1st floor, no room number) [place] [address] * HCG QUALitative (blood) (07/01/2024 2:14 PM [employer]) Only the most recent of2 resultswithin the time period is included. [facility] hCG Serum Qualitative Negative Negative RUKHSANA 07/01/2024 2:50 PM [employer] LABORATORY Comment:This test is for scr eening purposes. Results should be interpreted along with the clinical picture. Confirmation testing is available if warranted by ordering [id number], HCG Quantitative . Blood STRUCTURE OF RIGHT UPPER LIMB / Unknown Venipuncture / Unknown 07/01/2024 2:14 PM [employer] 07/01/2024 2:20 PM [employer] Jesus Bobby MD LAB - BLOOD ORDERABLES F inal Result [facility] [address] [facility]1st [facility], no room number) [place] [address], [facility] * EKG 12 lead (07/01/2024 11:37 AM [employer]) Only the most recent of7 resultswithin the time period is included. Systolic Blood Pressure mmHg RADIOLOGY RESULTS Diastolic Blood Pressure mmHg RADIOLOGY RESULTS Ventricular Rate 88 BPM RAD IOLOGY RESULTS Atrial Rate 88 BPM RADIOLOG Y RESULTS ND Interval 136 ms RADIOLOG Y RESULTS QRS Duration 90 ms RADIOLO GY RESULTS QT 536 ms RADIOLOGY RESULTS QTc 648 ms RADIOLOGY RESULTS P [place] 70 degrees RADIOLOGY RESULTS R AXIS 84 degrees RADIOLOGY RESULTS T [place] 78 degrees RADIOLOGY RESULTS Interpretation ECG Sinus rhythm Left ventricular hypertrophy with repolarization abnormality ( Sokolow-Hernandez ) Marked ST abnormality, possible anterior subendocardial injury Prolonged QT Abnormal ECG When compared with ECG of 18-Jun-2024 11:14, Significant changes have occurred Unconfirmed report - interpretation of this ECG is computer generated - see medical record for final interpretation Confirmed by - EMERGENCY ROOM, PHYSICIAN ([id number]), script editor NETTIE KIM ([id number]) on 07/01/2024 12:28:51 PM RADIOLOGY RESULTS 07/01/2024 11:3 7 AM [employer] 07/01/2024 12:28 PM [employer] Jesus Bobby MD ECG ORDERABLES Edited R esult - Final RADIOLOGY RESULTS * Influenza A/B, RSV and SARS-CoV2 PCR (COVID-19) Nasopharyngeal (07/01/2024 11:32 AM [employer]) Pathologist [facility] Influenza A PCR Negative Negative 07/01/2024 12:22 PM [employer] Influenza B PCR Negative Negative 07/01/2024 12:22 PM [employer] [facility] RSV PCR Negative Negative 07/01/2024 12:22 PM [employer] SARS CoV2 PCR Negative Negative 07/01/2024 12:22 PM [employer] Comment:NEGATIVE: SARS-CoV-2 (COVID-19) RNA not detected, presumed negative. Swab NASOPHARYNGEAL STRUCTURE / Unknown Non-blood Collection / Unknown 07/01/2024 11:32 AM [employer] 07/01/2024 11:39 AM [employer] LABORATORY - 07/01/2024 12:22 PM [employer] Testing was performed using the Xpert Xpress CoV2/Flu/RSV Assay on the [employer] GeneXpert Instrument. This test should be ordered [...] This test was validated by the [facility]. These laboratories are certified under the Clinical Laboratory Improvement Amendments of 1988 (CLIA-88) as qualified to perfom high complexity laboratory testing. Jesus Bobby MD LAB - MICRO GENERAL SCHU[place]ER [place] Final Result LABORATORY [facility] Lab [address] [facility] Lab (1st floor, no room number) [place] [address], [facility] * (ABNORMAL) Renal panel (06/20/2024 7:23 AM [employer]) Only the most recent of4 resultswithin the time period is included. Sodium 145 135 - 145 mmol/L 06/20/2024 9:35 AM [facility] Potassium 4.5 3.4 - 5.3 mmol/L 06/20/2024 9:35 AM [facility] Chloride 105 98 - 107 mmol/L 06/20/2024 9:35 AM [facility] Carbon Dioxide (CO2) 27 22 - 29 mmol/L 06/20/2024 9:35 AM [facility] Anion Gap 13 7 - 15 mmol/L 06/20/2024 9:35 AM [facility] Glucose 82 70 - 99 mg/dL 06/20/2024 9:35 AM [facility] Urea Nitrogen 26.8(H) 6.0 - 20.0 mg/dL 06/20/2024 9:35 AM [facility] LABORATORY Creatinine 2.09(H) 0.51 - 0.95 mg/dL 06/20/2024 9:35 AM [facility] [facility] [facility] LABORATORY GFR Estimate 31(L) >60 mL/min/1.7 3m2 06/20/2024 9:35 AM [facility] [facility] LABORATORY Comment:eGFR calculated usin 2020 CKD-EPI equation. Calcium 9.9 8.8 - 10.4 mg/dL 06/20/2024 9:35 AM [employer] [facility] [employer] [facility] LABORATORY Comment:Reference intervals for this test were updated on 01/08/2024 to reflect our healthy population more accurately. There may be differences in the flagging of prior results with similar values performed with this method. Those prior results can be interpreted in the context of the updated reference intervals. Albumin 3.9 3.5 - 5.2 g/dL 06/20/2024 9:35 AM [facility] Phosphorus 2.9 2.5 - 4.5 mg/dL 06/20/2024 9:35 AM [facility] Blood STRUCTURE OF LEFT HAND / Unknown Venipuncture / Unknown 06/20/2024 7:23 AM [employer] 06/20/2024 7:47 AM [employer] us Javon Devine MD LAB - BLOOD ORDERABLES Final Res ult LABORATORY [facility] Acute [facility] Lab [address] [facility] Lab (1st floor, no room number) [place] [address], [facility] * Sodium random urine (06/19/2024 5:13 PM [employer]) Only the most recent of4 resultswithin the time period is included. Sodium Urine mmol/L 121 mmol/L 06/19/2024 5:45 PM [employer] LABORATORY Comment:The reference ranges have not been established in urine sodium. The results should be integrated into the clinical context for interpretation. Urine URINE SPECIMEN OBTAINED BY CLEAN CATCH PROCEDURE / Unknown Non-blood Collection / Unknown 06/19/2024 5:13 PM [employer] 06/19/2024 5:19 PM [employer] Azar Umanzor MD LAB - URINE ORDERABLES Final Res ult [facility] Lab [address] Lab (1st floor, no room number) [place] [address], [facility] * Creatinine random urine (06/17/2024 1:39 PM [employer]) Creatinine Urine mg/dL 32.8 mg/dL 06/17/2024 2:08 PM [employer] LABORATORY Comment:The reference ranges have not been established in urine creatinine. The results should be integrated into the clinical context for interpretation. Urine URINE SPECIMEN OBTAINED BY CLEAN CATCH PROCEDURE / Unknown Non-blood Collection / Unknown 06/17/2024 1:39 PM [employer] 06/17/2024 1:45 PM [employer] Mike Teran MD LAB - URINE ORDERABLES Final Result Performing Organization Address [facility] Co de Phone Number [facility] [address] Lab (1st floor, no room number) [place] [address], [facility] * MR Knee Left w/o Contrast (06/17/2024 11:35 AM [employer]) Anatomical Region Laterality Modality Left Knee, SUBRAD MR MSK, UMP MR MSK, RAD MR Magnetic Resonance Impressions 06/17/2024 11:59 AM [employer] IMPRESSION: 1. Subtle soft tissue edema superficial to an intact tibial collateral ligament. Correlate clinically for a low-grade sprain. 2. Nonspecific focus of bone marrow edema along the posterior aspect of the lateral femoral condyle. Correlate for bone contusion. 3. The anterior and posterior cruciate ligaments, lateral supporting structures, and bilateral menisci are intact. JESSICA EDWARD MD Narrative 06/17/2024 11:59 AM [employer] EXAMINATION: MRI of the left knee without [...] supporting structures, and bilateral menisci are intact. JSESICA EDWARD MD Azar Umanzor MD IMG MRI ORDERABLES Final Result * XR Knee Left 3 Views (06/16/2024 6:16 PM [employer]) Only the most recent of2 resultswithin the time period is included. Anatomical Region Laterality Modality Thigh, Knee, Leg Left Digital Radiogr aphy 06/16/2024 6:16 PM [employer] Impressions 06/16/2024 6:36 PM [employer] IMPRESSION: Normal left knee joint spacing and alignment. No sizable effusion. Negative for acute fracture. Narrative 06/16/2024 6:36 PM [employer] EXAM: XR KNEE LEFT 3 VIEWS LOCATION: [facility] DATE: 06/16/2024 INDICATION: fall, medial pain COMPARISON: None. Procedure Note Stephon Farias MD - 06/16/2024 EXAM: XR KNEE LEFT 3 VIEWS LOCATION: [facility] DATE: 06/16/2024 INDICATION: fall, medial pain COMPARISON: None. IMPRESSION: Normal left knee joint spacing and alignment. No sizable effusion.Negative for acute fracture. Jamil Madison MD IMG DIAGNOSTIC IMAGING OR DERABLES Final Result * CT Knee Left w/o Contrast (05/31/2024 2:33 PM [employer]) Anatomical Region Laterality Modality Left Knee, SUBRAD CT MSK, UMP CT MSK, RAD CT Computed Tomography 05/31/2024 2:33 PM [employer] Impressions 05/31/2024 2:41 PM [employer] IMPRESSION: 1. No evidence for acute left knee fracture. Normal joint spacing and alignment. 2. Trace joint effusion. Narrative 05/31/2024 2:41 PM [employer] EXAM: CT KNEE LEFT W/O CONTRAST LOCATION: [facility] DATE: 05/31/2024 INDICATION: syncope with knee pain, [...] EXAM: CT KNEE LEFT W/O CONTRAST LOCATION: [facility] DATE: 05/31/2024 INDICATION: syncope with knee pain, [...] 2. Trace joint effusion. Emeterio Solorzano MD [facility] [place] ORDERABLES Final Result * (ABNORMAL) Comprehensive metabolic panel (05/31/2024 8:35 AM [employer]) Only the most recent of2 resultswithin the time period is included. Sodium 141 135 - 145 mmol/L 05/31/2024 9:07 AM [facility] Potassium 4.2 3.4 - 5.3 mmol/L 05/31/2024 9:07 AM [facility] Carbon Dioxide (CO2) 35(H) 22 - 29 mmol/L 05/31/2024 9:07 AM [facility] Anion Gap 10 7 - 15 mmol/L 05/31/2024 9:07 AM [facility] Urea Nitrogen 31.3(H) 6.0 - 20.0 mg/dL 05/31/2024 9:07 AM [facility] Creatinine 1.99(H) 0.51 - 0.95 mg/dL 05/31/2024 9:07 AM [facility] GFR Estimate 33(L) >60 mL/min/1.7 3m2 05/31/2024 9:07 AM [facility] Comment:eGFR calculated 2020 CKD-EPI equation. Calcium 10.2 8.8 - 10.4 mg/dL 05/31/2024 9:07 AM [facility] Comment:Reference intervals for this test were updated on 01/08/2024 to reflect our healthy population more accurately. There may be differences in the flagging of prior results with similar values performed with this method. Those prior results can be interpreted in the context of the updated reference intervals. Chloride 96(L) 98 - 107 mmol/L 05/31/2024 9:07 AM [facility] Glucose 126(H) 70 - 99 mg/dL 05/31/2024 9:07 AM [facility] Alkaline Phosphatase 75 40 - 150 U/L 05/31/2024 9:07 AM [facility] AST 22 0 - 45 U/L 05/31/2024 9:07 AM [facility] ALT 12 0 - 50 U/L 05/31/2024 9:07 AM [facility] Protein Total 6.8 6.4 - 8.3 g/dL 05/31/2024 9:07 AM [facility] Albumin 4.1 3.5 - 5.2 g/dL 05/31/2024 9:07 AM [facility] Bilirubin Total <0.2 <=1.2 mg/dL 05/31/2024 9:07 AM [facility] Blood STRUCTURE OF LEFT HAND / Unknown Venipuncture / Unknown 05/31/2024 8:35 AM [employer] 05/31/2024 8:44 AM [employer] us Sean Freeman MD LAB - BLOOD ORDERABLES Final Result LABORATORY [facility] [address] [facility]1st floor, no room number) [place] [address], [facility] * Ammonia (05/31/2024 8:35 AM [employer]) Ammonia 20 11 - 51 umol/L 05/31/2024 9:04 AM [employer] Blood STRUCTURE OF LEFT HAND / Unknown Venipuncture / Unknown 05/31/2024 8:35 AM [employer] 05/31/2024 8:44 AM [employer] us Sean Freeman MD LAB - BLOOD ORDERABLES Final Result [facility] LABORATORY [facility] Lab [address] Lab (1st floor, no room number) [place] [phone] * XR Ankle Left G/E 3 Views (05/29/2024 4:02 PM [employer]) Anatomical Region Laterality Modality Leg, Ankle, Foot Left Digital Radiogr aphy Impressions 05/29/2024 4:09 PM [employer] IMPRESSION: No fracture. Intact ankle mortise and distal syndesmosis. HUSEYIN MCKEON MD SYSTEM ID: [id number] Narrative 05/29/2024 4:09 PM [employer] XR ANKLE LEFT G/E 3 VIEWS 05/29/2024 4:02 PM HISTORY: fall, ankle pain COMPARISON: None. Procedure Note Huseyin Mckeon MD - 05/29/2024 XR ANKLE LEFT G/E 3 VIEWS 05/29/2024 4:02 PM HISTORY: fall, ankle pain COMPARISON: None. IMPRESSION: No fracture. Intact ankle mortise and distal syndesmosis. HUSEYIN MCKEON MD SYSTEM ID: [id number] us Jamil Carlin MD IMG DIAGNOSTIC IMAGING OR DERABLES Final Result * Extra Red Top Tube (05/29/2024 2:41 PM [employer]) Only the most recent of2 resultswithin the time period is included. Pathologist [facility] Hold Specimen [facility] 05/29/2024 4:16 PM [employer] [facility] Blood BLOOD SPECIMEN / Unknown Venipuncture / Unknown 05/29/2024 2:41 PM [employer] 05/29/2024 3:08 PM [employer] us Jamil Carlin MD LAB - BLOOD ORDERABLES Fi nal Result LABORATORY [facility] Lab [address] Lab (1st floor, no room number) [place] [address] * TSH with free T4 reflex (05/29/2024 2:41 PM [employer]) TSH 1.95 0.30 - 4.20 uIU/mL 05/29/2024 3:37 PM [employer] LABORATORY Blood BLOOD SPECIMEN / Unknown Venipuncture / Unknown 05/29/2024 2:41 PM [employer] 05/29/2024 3:08 PM [employer] Jamil Carlin MD LAB - BLOOD ORDERABLES Fi nal Result Performing Organization Address [facility]/ZIP Co de Phone Number LABORATORY [facility] Lab [address] Lab (1st floor, no room number) [place] [phone] * (ABNORMAL) UA with Microscopic (05/29/2024 2:41 PM [employer]) Color Urine Light Yellow Colorless, Straw, Light Yellow, Yellow 05/29/2024 3:29 PM [employer] [facility] [employer] [facility]ORY Appearance Urine Clear Clear 05/29/20 24 3:29 PM [employer] [facility] [employer] [facility] Glucose Urine Negative Negative mg/dL 05/29/2024 3:29 PM [facility] [facility] Bilirubin Urine Negative Negative 3:29 PM [employer] [facility] [employer] [facility] Ketones Urine Negative Negative mg/dL 05/29/2024 3:29 PM [employer] [employer] [facility]ORATORY Specific [place] Urine 1.010 1.003 - 1.035 05/29/2024 3:29 PM [facility] [facility] Blood Urine Negative Negative 05/29/2024 3:29 PM [facility] [facility] pH Urine 8.0(H) 5.0 - 7.0 05/29/2024 3:29 PM [facility] [facility] Protein Albumin Urine 50(A) Negative mg/dL 05/29/2024 3:29 PM [facility] [facility] Urobilinogen Urine Normal Normal, 2.0 mg/dL 05/29/2024 3:29 PM [facility] [facility] Nitrite Urine Negative Negative 05/29/2024 3:29 PM [facility] [facility] [facility] Leukocyte Esterase Urine Negative Negative 05/29/2024 3:29 PM [facility] [facility] [facility] Bacteria Urine Few(A) None Seen /HPF 05/29/2024 3:29 PM [facility] [facility] RBC Urine 1 <=2 /HPF 05/29/2024 3:29 PM [facility] [facility] WBC Urine 2 <=5 /HPF 05/29/2024 3:29 PM [facility] [facility] Squamous Epithelials Urine <1 <=1 /HPF 05/29/2024 3:29 PM [facility] [facility] Hyaline Casts Urine 3(H) <=2 /LPF 05/29/2024 3:29 PM [employer] [facility] [employer] [facility] Urine URINE SPECIMEN OBTAINED BY CLEAN CATCH PROCEDURE / Unknown Non-blood Collection / Unknown 05/29/2024 2:41 PM [employer] 05/29/2024 3:19 PM [employer] us Jamil Carlin MD LAB - URINE ORDERABLES Fi nal Result LABORATORY [facility] Lab [address] Lab (1st floor, no room number) [place] [address] * (ABNORMAL) Protein random urine (05/29/2024 2:41 PM [employer]) Total Protein Urine mg/dL 44.4 mg/dL 05/29/2024 3:50 PM [employer] [facility] [employer] [facility] Comment:The reference ranges have not been established in urine protein. The results should be integrated into the clinical context for interpretation. Total Protein Urine mg/mg Creat 1.14(H) 0.00 - 0.20 mg/mg Cr 05/29/2024 3:50 PM [facility] [facility] [employer] [facility] Creatinine Urine mg/dL 38.9 mg/dL 05/29/2024 3:50 PM [facility] [facility] [employer] [facility] Comment:The reference ranges have not been established in urine creatinine. The results should be integrated into the clinical context for interpretation. Urine URINE SPECIMEN OBTAINED BY CLEAN CATCH PROCEDURE / Unknown Non-blood Collection / Unknown 05/29/2024 2:41 PM [employer] 05/29/2024 3:18 PM [employer] Jamil Carlin MD LAB - URINE ORDERABLES Fi nal Result [facility] Acute Care Lab [address] [facility] Lab (1st floor, no room number) [place] [address], [facility] * (ABNORMAL) Albumin Random Urine Quantitative with Creat Ratio (05/29/2024 2:41 PM [employer]) Creatinine Urine mg/dL 37.8 mg/dL 05/30/2024 4:36 AM [employer] Comment:The reference ranges have not been established in urine creatinine. The results should be integrated into the clinical context for interpretation. Albumin Urine mg/L 165.0 mg/L 2023 4:36 AM [employer] Comment:The reference ranges have not been established in urine albumin. The results should be integrated into the clinical context for interpretation. Albumin Urine mg/g Cr 436.51(H) 0.00 - 25.00 mg/g Cr 05/30/2024 4:36 AM [employer] Comment: Microalbuminuria is defined as [...] control, and institution of therapy with an [id number] (SARANYA) inhibitor (if the patient can tolerate it). Urine URINE SPECIMEN OBTAINED BY CLEAN CATCH PROCEDURE / Unknown Non-blood Collection / Unknown 05/29/2024 2:41 PM [employer] 05/29/2024 3:18 PM [employer] Jamil Carlin MD LAB - URINE ORDERABLES Fi nal Result [facility] LABORATORY [facility] [place] [facility] Lab [address] [facility], [address] [place] [address], [place] * (ABNORMAL) Blood gas venous (05/29/2024 2:41 PM [employer]) pH Venous 7.56(H) 7.32 - 7.43 05/29/2024 3:27 PM [employer] [facility] pCO2 Venous 71(H) 40 - 50 mm Hg 05/29/2024 3:27 PM [employer] [facility] pO2 Venous 38 25 - 47 mm Hg 05/29/2024 3:27 PM [employer] Bicarbonate Venous >45(HH) 21 - 28 mmol/L 05/29/2024 3:27 PM [employer] Base Excess/Deficit Venous 05/29/2024 3:27 PM [employer] Comment:hide FIO2 21 [facility] 05/29/2024 3:27 PM [employer] Oxyhemoglobin Venous 67(L) 70 - 75 % 05/29/2024 3:27 PM [employer] O2 Sat, Venous 67.1(L) 70.0 - 75.0 % 05/29/2024 3:27 PM [employer] [employer] LABORATORY Blood, venous BLOOD SPECIMEN / Unknown Venipuncture / Unknown 05/29/2024 2:41 PM [employer] 05/29/2024 3:08 PM [employer] Narrative [facility] - 05/29/2024 3:27 PM [employer] In healthy individuals, oxyhemoglobin (O2Hb) and oxygen saturation (SO2) are approximately equal. In the presence of dyshemoglobins, oxyhemoglobin can be considerably lower than oxygen saturation. us Jamil Carlin MD LAB - BLOOD ORDERABLES nal Result LABORATORY [facility] Lab [address] [facility] Lab (1st floor, no room number) [place] [address], [facility] * (ABNORMAL) Sodium timed urine (05/19/2024 12:02 PM [employer]) Sodium Urine mmol/L 130 mmol/L 05/19/2024 1:51 PM [employer] LABORATORY Comment:The reference ranges have not been established in urine sodium. The results should be integrated into the clinical context for interpretation. Sodium Urine mmol/spec 286(H) 40 - 220 mmol/spec 05/19/2024 1:51 PM [employer] [facility] Duration in hours 24.0 h [facility] 05/19/2024 1:51 PM [employer] Comment: started 05/18/24 11:40am started 05/18/24 11:40am Volume in mL 2,200 mL [facility] 05/19/2024 1:51 PM [employer] Comment: Ended 05/19/24 11:40am Ended 05/19/24 11:40am Urine URINE SPECIMEN OBTAINED BY CLEAN CATCH PROCEDURE / Unknown Non-blood Collection / Unknown 05/19/2024 12:02 PM [employer] 05/19/2024 12:09 PM [employer] us Javon Devine MD LAB - URINE ORDERABLES Final Res ult LABORATORY [facility] Lab [address] [facility] Lab (1st floor, no room number) [place] [address], [facility] * Potassium timed urine (05/19/2024 12:00 PM [employer]) Potassium Urine 39.0 mmol/L 6:39 PM [employer] [facility] Comment:The reference ranges have not been established in urine potassium. The results should be integrated into the clinical context for interpretation. Duration in hours 24.0 h [facility] 05/19/2024 6:39 PM [employer] [facility] Comment: Started 05/18/24 11:40am Started 05/18/24 11:40am Started 05/18/24 11:40am Volume in mL 2,200 mL [facility] 05/19/2024 6:39 PM [employer] [facility] Comment: Ended 05/19/24 11:40am Ended 05/19/24 11:40am Ended 05/19/24 11:40am Potassium Urine mmol/spec 86 25 - 125 mmol/spec 05/19/2024 6:39 PM [employer] [facility] Urine URINE SPECIMEN FROM URINARY CONDUIT / Unknown Non-blood Collection / Unknown 05/19/2024 12:00 PM [employer] 05/19/2024 12:10 PM [employer] us Javon Devine MD LAB - URINE ORDERABLES Final Res ult Performing Organization Address [facility]/ZIP Co de Phone Number UU LABORATORY [facility] Core Lab [address] [facility], [address] [phone] * (ABNORMAL) Phosphorus timed urine (05/19/2024 11:59 AM [employer]) Phosphorous Urine mg/dL 15.0(L) 40.0 - 136.0 mg/dL 05/19/2024 6:50 PM [employer] [facility] Phosphorus Urine g/spec 0.33(L) 0.40 - 1.30 g/spec 05/19/2024 6:50 PM [employer] Duration in hours 24.0 h [facility] 05/19/2024 6:50 PM [employer] [facility] Comment: Started 05/18/24 11:40am Started 05/18/24 11:40am Volume in mL 2,200 mL [facility] 05/19/2024 6:50 PM [employer] [facility] Comment: Ended 05/19/24 11:40am Ended 05/19/24 11:40am Urine URINE SPECIMEN OBTAINED BY CLEAN CATCH PROCEDURE / Unknown Non-blood Collection / Unknown 05/19/2024 11:59 AM [employer] 05/19/2024 12:09 PM [employer] us Javon Devine MD LAB - URINE ORDERABLES Final Res ult Performing Organization Address [facility] de Phone Number UU LABORATORY [facility] Core Lab [address] [facility], [address] [phone] * (ABNORMAL) Magnesium timed urine (05/19/2024 11:58 AM [employer]) Magnesium Urine mg/dL 10.3 mg/dL 05/19/2024 6:54 PM [employer] [facility] Comment:The reference ranges have not been established in urine magnesium. The results should be integrated into the clinical context for interpretation. Duration in hours 24.0 h [facility] 05/19/2024 6:54 PM [employer] [facility] Comment: Started 05/18/24 11:40am Started 05/18/24 11:40am Started 05/18/24 11:40am Volume in mL 2,200 mL [facility] 05/19/2024 6:54 PM [employer] [facility] Comment: Ended 05/19/24 11:40am Ended 05/19/24 11:40am Ended 05/19/24 11:40am Magnesium Urine g/spec 0.23(H) 0.07 - 0.12 g/spec 05/19/2024 6:54 PM [employer] [facility] Comment:Reference range appl icable for 24 hour only Urine URINE SPECIMEN OBTAINED BY CLEAN CATCH PROCEDURE / Unknown Non-blood Collection / Unknown 05/19/2024 11:58 AM [employer] 05/19/2024 12:09 PM [employer] us Javon Devine MD LAB - URINE ORDERABLES Final Res ult [facility] LABORATORY [facility] Core Lab [address] [facility], [address] [phone] * (ABNORMAL) Chloride timed urine (05/19/2024 11:56 AM [employer]) Chloride Urine mmol/L 41 mmol/L 05/19/2024 6:41 PM [employer] [facility] Comment:The reference ranges have not been established in urine chloride. The results should be integrated into the clinical context for interpretation. Chloride Urine mmol/spec 90(L) 110 - 250 mmol/spec 05/19/2024 6:41 PM [employer] Comment: Reference range applicable for 24 hour only The urinary excretion of sodium, potassium and chloride varies significantly with dietary intake. The values given here are typical of people on average diet. Duration in hours 24.0 h [facility] 05/19/2024 6:41 PM [employer] [facility] Comment: started 05/18/24 11:40am started 05/18/24 11:40am started 05/18/24 11:40am Volume in mL 2,200 mL [facility] 05/19/2024 6:41 PM [employer] Comment: ended 05/19/24 11:40am ended 05/19/24 11:40am ended 05/19/24 11:40am Urine URINE SPECIMEN OBTAINED BY CLEAN CATCH PROCEDURE / Unknown Non-blood Collection / Unknown 05/19/2024 11:56 AM [employer] 05/19/2024 12:10 PM [employer] us Javon Devine MD LAB - URINE ORDERABLES Final Res ult [facility]AT[facility] [place] [facility] Lab [address] [facility], [address] * Calcium timed urine (05/19/2024 11:54 AM [employer]) Calcium Urine mg/dL 9.2 mg/dL 05/19/2024 6:53 PM [employer] [facility] Comment:The reference ranges have not been established in urine calcium. The results should be integrated into the clinical context for interpretation. Duration in hours 24.0 h [facility] 05/19/2024 6:53 PM [employer] [facility] Comment: Started 05/18/24 11:40am Started 05/18/24 11:40am Started 05/18/24 11:40am Volume in mL 2,200 mL [facility] 05/19/2024 6:53 PM [employer] [facility] Comment: ended 11:40am 05/19/24 ended 11:40am 05/19/24 ended 11:40am 05/19/24 Calcium Urine g/spec 0.20 0.10 - 0.30 g/spec 05/19/2024 6:53 PM [employer] [facility] Comment:Reference range appl icable for 24 hour only Urine URINE SPECIMEN OBTAINED BY CLEAN CATCH PROCEDURE / Unknown Non-blood Collection / Unknown 05/19/2024 11:54 AM [employer] 05/19/2024 12:09 PM [employer] us Javon Devine MD LAB - URINE ORDERABLES Final Res ult [facility] [place] [facility] Lab [address] [facility], [address] [phone] * Lactic acid whole blood (05/15/2024 7:14 PM [employer]) Lactic Acid 1.7 0.7 - 2.0 mmol/L 05/15/2024 7:23 PM [employer] [facility] Blood STRUCTURE OF LEFT HAND / Unknown Venipuncture / Unknown 05/15/2024 7:14 PM [employer] 05/15/2024 7:21 PM [employer] Desire Najera PA-C LAB - BLOOD ORDERABLES Final Result Performing Organization Address City/[facility]/ZIP Co de Phone Number [facility] Care Lab [address] Lab (1st floor, no room number) [place] [address] * Ketone Beta-Hydroxybutyrate Quantitative (05/15/2024 2:54 PM [employer]) Ketone (Beta-Hydroxybuty rate) Quantitative 0.25 <=0.30 mmol/L 05/15/2024 7:54 PM [employer] LABORATORY Blood STRUCTURE OF LEFT HAND / Unknown Venipuncture / Unknown 05/15/2024 2:54 PM [employer] 05/15/2024 3:03 PM [employer] Desire Najera PA-C LAB - BLOOD ORDERABLES Final Result Performing Organization Address [facility] Co de Phone Number [facility] Lab [address] Lab (1st floor, no room number) [place] [address], [place] * XR Pelvis 1/2 Views (04/23/2024 2:01 PM CDT) Anatomical Region Laterality Modality Abdomen/Pelvis Digital Radiogra phy Impressions 04/23/2024 2:08 PM CDT IMPRESSION: Right inferior pubic ramus fracture with similar alignment. No definite osseous bridging. There is normal joint alignment. No significant degenerative changes. DIANDRA RODRÍGUEZ MD SYSTEM ID: [id number] Narrative 04/23/2024 2:08 PM CDT XR PELVIS [...] degenerative changes. DIANDRA RODRÍGUEZ MD SYSTEM ID: [id number] Jerry Maya MD IMG DIAGNOSTIC IMAGING ORDERABL ES Final Result * CT Cervical Spine w/o Contrast (04/23/2024 1:59 PM CDT) Anatomical Region Laterality Modality Spine, SUBRAD CT NEURO, SUBR AD CT NEURO, UMP CT SPINE, RAD CT Computed Tomography Impressions 04/23/2024 2:23 PM CDT IMPRESSION: No acute cervical spine fracture. ANTHONY COOK MD SYSTEM ID: [id number] Narrative 04/23/2024 2:[address] CERVICAL [...] spine fracture. ANTHONY COOK MD SYSTEM ID: [id number] Jerry Maya MD [facility] [place] ORDER[place]LES Final Result * XR Knee Right 1/2 Views (04/23/2024 1:59 PM CDT) Anatomical Region Laterality Modality Leg, Thigh, Knee Right Digital Radiogr aphy Impressions 04/23/2024 2:08 PM CDT IMPRESSION: No acute osseous abnormality demonstrated. DIANDRA RODRÍGUEZ MD SYSTEM ID: [id number] Narrative 04/23/2024 2:08 PM CDT KNEE ONE-TWO [...] abnormality demonstrated. DIANDRA RODRÍGUEZ MD SYSTEM ID: [id number] Jerry Maya MD [facility] ORDERABL ES Final Result * XR Femur Right 2 Views (04/23/2024 1:57 PM CDT) Anatomical Region Laterality Modality Hip, Thigh, Knee Right Digital Radiogr aphy Impressions 04/23/2024 2:08 PM CDT IMPRESSION: Right inferior pubic ramus fracture with similar alignment. No definite osseous bridging. There is normal joint alignment. No significant degenerative changes. DIANDRA RODRÍGUEZ MD SYSTEM ID: [id number] Narrative 04/23/2024 2:08 PM CDT XR PELVIS [...] degenerative changes. DIANDRA RODRÍGUEZ MD SYSTEM ID: [id number] Jerry Maya MD IMG DIAGNOSTIC IMAGING ORDERABL [...] UM SPECIALTY CORE/PROT/ENDO UM Specialty Core/Prot/Endo [facility], [address] from Last 3 Months or Most Recently Relevant to Health Maintenance Insurance MEDICARE MEDICARE Member Subscriber Plan / Payer (Ef fective 2018-Present) Name:Lorraine Klein Member ID:[id number] Relation to Subscriber:Self Name:Lorraine Klein Subscriber ID:[id number] Payer ID:[id number] Group ID:Not on file Type:Medicare Address: ATTN CLAIMS [address] [place] [phone] Advance Directives For more information, please contact: [phone] * Full Code (Latest Code Status on [...] patie nt/ legal decision maker Care Teams Cutting Machine Offbearer Relationship Specialty [place] [address] [place] [address] PCP - General 03/07/24
--- OUTSIDE RECORDS SUMMARY | 2024-07-08 17:32 | XMS_ITS | Encounter Summary ---
Author Organization [facility] Address [address] [place] [id number] Care Team Providers Care Propagation Worker Name Role Phone Gregg Corrales MD Primary Care Provider Reason for Visit * Reason Comments Vomiting Palpitations * Auth/Cert (Routine) Specialty Diagnoses / Procedures Referred By Contac t Referred To Contact EMERGENCY MEDICINE Diagnoses Intractable nausea and vomiting Gitelman syndrome Hypokalemia Hyponatremia Hypercalcemia BARBARA (acute kidney injury) (H) Headache, unspecified headache type Prolonged Q-T interval on ECG [facility] Emergency Dept [address] [place] [address] Phone: tel:[phone] fax: Referral ID Status Reason Start Date Expiration Date Visits Re quested Visits Authorized [id number] 1 1 Encounter Details Date Type Department Care Team (Late st Contact Info) Description 07/01/2024 2:04 PM VEHICLE SERVICE ATTENDANT - 07/03/2024 1:06 PM VEHICLE SERVICE ATTENDANT Hospital Encounter [facility] 3 Medical Surgical [address] [place] [address] Jesus Bobby MD [facility] [address] [place], [place] [address] Nain Locke, DO [address], [place] [id number] Intractable nausea and vomiting; Gitelman syndrome; Hypokalemia; Hyponatremia; Hypercalcemia; BARBARA (acute kidney injury); Headache, unspecified headache type; Prolonged Q-T interval on ECG Discharge Disposition: Left Against Medical Advice Social [...] in an abandoned building, in an overnight custodial, or couch-surfing.) Yes 07/02/2024 Are you worried [...] on file Legal Sex Female 4:48 AM VEHICLE SERVICE ATTENDANT Gender Identity Not on file Sexual Orientation Not on file 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 Not on file Not on file documented as of this encounter Last Filed Vital Signs Vital Sign Reading Time Taken Comments Blood Pressure 123/71 07/03/2024 9:07 AM VEHICLE SERVICE ATTENDANT Pulse 87 07/03/2024 9:07 AM VEHICLE SERVICE ATTENDANT Temperature 36.7 C (98 F) 07/03/2024 9:07 AM VEHICLE SERVICE ATTENDANT Respiratory Rate 16 07/03/2024 9:07 AM VEHICLE SERVICE ATTENDANT Oxygen Saturation 99% 07/03/2024 9:07 AM VEHICLE SERVICE ATTENDANT Inhaled Oxygen Concentration - - Weight 49 kg (108 lb) 07/02/2024 5:51 PM VEHICLE SERVICE ATTENDANT Height 170.2 cm (5' 7) 07/01/2024 11:26 AM VEHICLE SERVICE ATTENDANT Body Mass Index 16.92 07/01/2024 11:26 AM VEHICLE SERVICE ATTENDANT documented in this encounter Discharge Summaries * Michel Dotson DO - 07/03/2024 1:06 PM CST Hospitalist Discharge Summary [facility] Lorraine Klein Date of : 1990 Age: [age] year old Date of Admission: 07/01/2024 Date of Discharge: 07/03/2024 1:06 PM Admitting Physician: Nain Locke DO Discharge Physician: Michel Dotson DO Discharging Service: Hospitalist Primary Provider: Gregg Corrales Discharge Diagnosis: Acute Intractable Nausea and Vomiting and Abdominal Pain - Possible her pain is secondary to hypercalcemia. It appears to be improving. Possible her symptoms are a viral gastroenteritis vs other - IVF - Advance diet as tolerated - Antiemetics prn Severe Hypercalcemia - Possibly secondary to dehydration, supplementation, BARBARA, gitelmans - IVF - Improving - Daily BMP Severe Hypokalemia Hyponatremia Hypermagnesemia Gitelman Syndrome Acute Kidney Injury Chronic Kidney Disease Stage 5 - Baseline Cr = 1.2-1.9 - IVF - Appreciate Nephrology recommendations. Pt follows with Dr. Devine as an outpatient - UA with mild proteinuria - FeNa = 0.6 - Resume TECHNICAL STAFF ENGINEER potassium replacement QID - Potassium q6h for now - Avoid nephrotoxins - Improving - Daily BMP Prolonged Qtc - Qtc = 648 ms upon arrival - Avoid Qtc prolonging meds Subacute R Inferior Pubic Ramus Fracture - Appreciate Orthopedic Surgery recommendations - Recommending 6 week follow up for repeat imaging of the pelvis Anxiety/Depression Factitious Disorder Opioid Use Disorder - Pt has hx of opoid use disorder and seeking behaviours. There have been concerns previously for bulimia and factitious disorder during previous hospitalizations. Low BMI and teeth erosions. Pt has been offered psychiatry evaluations previously and has refused them stating she follows with Psych as an outpatient. Psychiatry was consulted during this hospitalization. Pt reported diarrhea and vomiting but never left material to be documented. Given concern for her underlying electrolyte issues and recurrent hospitalizations a bedside attendant was recommended to document volume loss closely. Pt became agitated with this plan and refused a bedside attendant. Pt threatened to leave AMA if a bedside attendant was placed. Pt was encouraged to reconsider. Pt was seen by Psychiatry who expressedconcern for factitious disorder. Pt should have confirmed genetic testing prior to placement of port in the future, given the above concerns for factitious disorder. 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 Of note, the patient has been hospitalized 10+ times since November 2023 for similar issues. In the emergency department, the patient was found to have a temperature of 97.2 ??F, blood pressure 126/100, heart rate 104, respiratory rate 18, SpO2 100% on room air. Initial lab work showed hemoglobin 11.1, platelet 531, sodium 129, potassium 2.1, chloride 66, bicarb 44, BUN/creatinine 15.2/3.67. The patient was provided with electrolyte replacements and started on aggressive IV fluids. Nephrology was consulted to see thepatient. The patient was noted to have a low urine chloride which is most consistent with vomitingcontributing to her electrolyte abnormalities. The patient reported GI concerns including vomiting and diarrhea that were not witnessed by staff. Given concern for factitious disorder versus her Gettleman syndrome psychiatry was consulted to see the patient. A bedside attendant was recommended to monitor her outputs given her frequent hospitalizations for severe electrolyte derangements and recurrent complaints of GI symptoms. The patient reported that if a bedside attendant is ordered that shewould leave AMA. Patient was encouraged to stay to complete the workup regarding her intermittent GI symptoms as well as her electrolyte issues as there is concern for her recurrent hospitalizations and severe electrolyte abnormalities. The patient ultimately left AMA. The patient was seen, examined, and counseled on this day. The hospitalization and plan of care wasreviewed with the patient extensively. All questions were addressed and the patient agreed to follow-up as noted above. Allergies: Allergies Allergen Reactions Iron Sucrose Anxiety [...] Pt declined continuing infusion at lower rate. Ondansetron Other (See Comments) Patient refused to take because it can make QT long and has history of long QT. Discharge Medications: Discharge Medication List as of 07/03/2024 1:09 PM CONTINUE these medications which have NOT CHANGED Details albuterol (PROAIR HFA/PROVENTIL HFA/VENTOLIN HFA) 108 (90 Base) MCG/ACT inhaler Inhale 1-2 puffs into the lungs every 4 hours as needed for shortness of breath, wheezing or cough., Historical ferrous sulfate 325 (65 Fe) MG TBEC EC tablet Take 325 mg by mouth 3 times daily (with meals). Withfood or snack, Historical !! gabapentin (NEURONTIN) 100 MG capsule Take 100 mg by mouth at bedtime. with 300 mg capsule, Historical !! gabapentin (NEURONTIN) 300 MG capsule Take 300 mg by mouth 3 times daily. Am, Lunch, Bed-time, Historical hydrOXYzine HCl (ATARAX) 25 MG tablet Take 1-2 tablets (25-50 mg) by mouth every 6 hours as needed for other (adjuvant pain)., Disp-30 tablet, R-0, E-Prescribe magnesium oxide (MAG-OX) 400 MG tablet Take 400 mg by mouth 3 times daily (with meals)., Historical methocarbamol (ROBAXIN) 750 MG tablet Take 750 mg by mouth 4 times daily as needed for muscle spasms., Historical Multiple Vitamins-Iron (ONE DAILY MULTIVITAMIN/IRON PO) Take 1 tablet by mouth daily., Historical ondansetron (ZOFRAN) 4 MG tablet Take 4 mg by mouth every 8 hours as needed for nausea or vomiting., Historical potassium chloride deanne ER (KLOR-CON M20) 20 MEQ CR tablet Take 2 tablets (40 mEq) by mouth 3 timesdaily., No Print Out senna-docusate (SENOKOT-S/PERICOLACE) 8.6-50 MG tablet Take 1 tablet by mouth 2 times daily as needed for constipation., No Print Out traMADol (ULTRAM) 50 MG tablet Take 50 mg by mouth 2 times daily as needed for severe pain., Historical !! - Potential duplicate medications found. Please discuss with provider. STOP taking these medications multivitamin, therapeutic (THERA-VIT) TABS Comments: Reason for Stopping: Condition on Discharge: Discharge condition: Fair Discharge vitals: Blood pressure 123/71, pulse 87, temperature 98 ??F (36.7 ??C), temperature source Oral, resp. rate 16, height 1.702 m (5' 7), weight 49 kg (108 lb), SpO2 99%, not currently . Code status on discharge: Full Code BASIC PHYSICAL EXAMINATION: GENERAL: No apparent distress. CARDIOVASCULAR: Regular rate and rhythm without murmurs. PULMONARY: Clear to auscultation bilaterally. GASTROINTESTINAL: Abdomen soft, non-tender. EXTREMITIES: No edema, pulses intact. NEUROLOGIC: No focal deficits. History of Illness: See detailed admission note for full details. Procedures excluding imaging which is summarized below: Please see details in the electronic medical record. Consultations: NEPHROLOGY IP CONSULT CARE MANAGEMENT / SOCIAL WORK IP CONSULT ORTHOPEDIC SURGERY IP CONSULT PSYCHIATRY IP CONSULT Significant Results: Results for orders placed or performed during the hospital encounter of 07/01/24 CT Abdomen Pelvis w/o Contrast Narrative EXAM: CT ABDOMEN PELVIS W/O CONTRAST LOCATION: [facility] DATE: 07/01/2024 INDICATION: Abdominal pain, nausea, [...] MUSCULOSKELETAL: Subacute right inferior pubic ramus fracture. Impression IMPRESSION: 1. No acute findings or inflammatory changes in the abdomen or pelvis. No bowel obstruction. 2. Subacute right inferior pubic ramus fracture. Transthoracic Echocardiogram Results: No results found for this or any previous visit (from the past 4320 hours). Pending Results: Unresulted Labs Ordered in the Past 30 Days of this Admission Date and Time Order Name Status Description 07/01/2024 4:44 PM PTH Related Peptide Test In process Discharge Instructions and Follow-Up: Discharge instructions and follow-up: No discharge procedures on file. Total time spent in face to face contact with the patient and coordinating discharge was: 34 Minutes Michel Dotson DO [facility] [place] [address] 07/03/2024 CLE SERVICE ATTENDANT documented in this encounter Medications at Time of Discharge albuterol (PROAIR HFA/PROVENTIL HFA/VENTOLIN HFA) 108 (90 Base) MCG/ACT inhaler Inhale 1-2 puffs into the lungs every 4 hours as needed for shortness of breath, wheezing or cough. ferrous sulfate 325 (65 Fe) MG TBEC EC tablet Take 325 mg by mouth 3 times daily (with meals). With food or snack gabapentin (NEURONTIN) 100 MG capsule Take 100 mg by mouth at bedtime. with 300 mg capsule gabapentin (NEURONTIN) 300 MG capsule Take 300 mg by mouth 3 times daily. Am, Lunch, Bed-time hydrOXYzine HCl (ATARAX) 25 MG tabletIndication s:Acute bilateral low back pain without sciatica Take 1-2 tablets (25-50 mg) by mouth every 6 hours as needed for other (adjuvant pain). 30 tablet 03/12/2024 magnesium oxide (MAG-OX) 400 MG tablet Take 400 mg by mouth 3 times daily (with meals). 03/06/2017 methocarbamol (ROBAXIN) 750 MG tablet Take 750 mg by mouth 4 times daily as needed for muscle spasms. Multiple Vitamins-Iron (ONE DAILY MULTIVITAMIN/IRO N PO) Take 1 tablet by mouth daily. ondansetron (ZOFRAN) 4 MG tablet Take 4 mg by mouth every 8 hours as needed for nausea or vomiting. potassium chloride deanne ER (KLOR-CON M20) 20 MEQ CR tabletIndication s:Hypokalemia Take 2 tablets (40 mEq) by mouth 3 times daily. 06/20/2024 senna-docusate (SENOKOT-S/PERIC OLACE) 8.6-50 MG tabletIndication s:Closed fracture of single ramus of right pubis, with delayed healing, subsequent encounter Take 1 tablet by mouth 2 times daily as needed for constipation. 03/23/2024 traMADol (ULTRAM) 50 MG tablet Take 50 mg by mouth 2 times daily as needed for severe pain. 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 Of note, the patient has been hospitalized 10+ times since November 2023 for similar issues. In the emergency department, the patient was found to have a temperature of 97.2 ??F, blood pressure 126/100, heart rate 104, respiratory rate 18, SpO2 100% on room air. Initial lab work showed hemoglobin 11.1, platelet 531, sodium 129, potassium 2.1, chloride 66, bicarb 44, BUN/creatinine 15.2/3.67. The patient was provided with electrolyte replacements and started on aggressive IV fluids. Nephrology was consulted to see the patient. TODAY'S PLAN: Appreciate nephrology and psychiatry recommendations. Discussed with both nephrology and psychiatry. Concern remains regarding the patient's recurrent hospitalizations for severe hypokalemia. Patient has been reporting diarrhea, however never leaves that long enough to be documented. Given her recurrent hospitalizations it is very important to monitor her outputs so will ask for bedside attendant. When told that she would require a bedside attendant to document her output very closely the patient became agitated and said she did not want to bedside attendant. She reported that if 1 is ordered and she will leave AMA. In addition, the patient has a history of drug-seeking behavior and has been requiring very frequent doses of IV narcotics. We discussed the necessity of obtaining a good oral regimen of her pain meds. It appears at this point that the patient is planning to leave AMA. She was encouraged to reconsider as it is important to get to the bottom of why she is having these recurrent electrolyte issues and nausea and vomiting and how much volume she is losing withthis. The patient still plans to leave AMA. Of note, pt complained of diarrhea this morning. Duringour conversation she urgently went to the restroom and after gave permission for staff to examine her stool in the toilet. The patient had formed stool. Nursing was present during history and physical exam. Problem List: Acute Intractable Nausea and Vomiting and Abdominal Pain - Possible her pain is secondary to hypercalcemia. It appears to be improving. Possible her symptoms are a viral gastroenteritis vs other - IVF - Advance diet as tolerated - Antiemetics prn Severe Hypercalcemia - Possibly secondary to dehydration, supplementation, BARBARA, gitelmans - IVF - Improving - Daily BMP Severe Hypokalemia Hyponatremia Hypermagnesemia Gitelman Syndrome Acute Kidney Injury Chronic Kidney Disease Stage 5 - Baseline Cr = 1.2-1.9 - IVF - Appreciate Nephrology recommendations. Pt follows with Dr. Devine as an outpatient - UA with mild proteinuria - FeNa = 0.6 - Resume TECHNICAL STAFF ENGINEER potassium replacement QID - Potassium q6h for now - Avoid nephrotoxins - Improving - Daily BMP Prolonged Qtc - Qtc = 648 ms upon arrival - Avoid Qtc prolonging meds Subacute R Inferior Pubic Ramus Fracture - Appreciate Orthopedic Surgery recommendations - Recommending 6 week follow up for repeat imaging of the pelvis Anxiety/Depression Factitious Disorder Opioid Use Disorder - Pt has hx of opoid use disorder and seeking behaviours. There have been concerns previously for bulimia and factitious disorder during previous hospitalizations. Low BMI and teeth erosions. Pt has been offered psychiatry evaluations previously and has refused them stating she follows with Psych as an outpatient. Psychiatry was consulted during this hospitalization. Pt reported diarrhea and vomiting but never left material to be documented. Given concern for her underlying electrolyte issues and recurrent hospitalizations a bedside attendant was recommended to document volume loss closely. Pt became agitated with this plan and refused a bedside attendant. Pt threatened to leave AMA if a bedside attendant was placed. Pt was encouraged to reconsider. Pt was seen by Psychiatry who expressedconcern for factitious disorder. Pt should have confirmed genetic testing prior to placement of port in the future, given the above concerns for factitious disorder. Severe Malnutrition - BMI = 16.29 - Encouraged PO intake I spent 52 minutes in reviewing this patient's labs, imaging, medications, medical history. In addition time was spent interviewing the patient, communicating with family, and medical decision making. DVT Prophylaxis: Pneumatic Compression Devices Code Status: Full Code Diet: Advance Diet as Tolerated: Regular Diet Adult Raymundo Catheter: Not present Disposition: Medically Ready for Discharge: Anticipated in 2-4 Days Goals to discharge include: electrolyte stable Family updated today: No Interval History Pt seen and examined. Pt reports diarrhea this morning. -Data reviewed today: I personally reviewed all new labs and imaging results over the last 24 hours. Physical Exam Temp: 98 ??F (36.7 ??C) Temp src: Oral BP: 123/71 Pulse: 87 Resp: 16 SpO2: 99 % O2 Device: None (Room air) Vitals: 07/01/24 1126 07/02/24 1751 Weight: 47.2 kg (104 lb) 49 kg (108 lb) Vital Signs with Ranges Temp: [97.3 ??F (36.3 ??C)-98 ??F (36.7 ??C)] 98 ??F (36.7 ??C) Pulse: [81-90] 87 Resp: [16-18] 16 BP: (98-145)/(58-93) 123/71 SpO2: [97 %-99 %] 99 % I/O last 3 completed shifts: In: 246 [P.O.:240; I.V.:6] Out: 200 [Urine:200] GENERAL: No apparent distress. Awake, alert, and fully oriented. HEENT: Normocephalic, atraumatic. Extraocular movements intact. CARDIOVASCULAR: Regular rate and rhythm without murmurs or rubs. No S3. PULMONARY: Clear bilaterally. GASTROINTESTINAL: Soft, non-tender, non-distended. Bowel sounds normoactive. EXTREMITIES: No cyanosis or clubbing. No edema. NEUROLOGICAL: CN 2-12 grossly intact, no focal neurological deficits. DERMATOLOGICAL: No rash, ulcer, bruising, nor jaundice. Medications Current Facility-Administered Medications Medication Dose Route Frequency Provider Last Rate Last Admin sodium chloride 0.9 % infusion Intravenous Continuous Mike Teran MD 100 mL/hr at 07/03/24 0402 New Bag at 07/03/24 0402 Current Facility-Administered Medications Medication Dose Route Frequency Provider Last Rate Last Admin acetaminophen (TYLENOL) tablet 975 mg 975 mg Oral TID Nain Locke DO 975 mg at 07/03/24 0808 gabapentin (NEURONTIN) capsule 300 mg 300 mg Oral BID Nain Locke DO 300 mg at 07/03/24 115 gabapentin (NEURONTIN) capsule 400 mg 400 mg Oral At Bedtime Nain Locke DO 400 mg at 044 heparin ANTICOAGULANT injection 5,000 Units 5,000 Units Subcutaneous TID Nain Locke DO 5,000 Units at 07/03/24 0809 multivitamin w/minerals (THERA-VIT-M) tablet 1 tablet 1 tablet Oral Daily Nain Locke DO 1 tablet at 07/03/24 0808 potassium chloride deanne ER (KLOR-CON M20) CR tablet 40 mEq 40 mEq Oral TID Mike Teran MD sodium chloride (PF) 0.9% PF flush 3 mL 3 mL Intracatheter Q8H Nain Locke DO 3 mL at [id number] Data Laboratory: Recent Labs Lab 07/03/24 0558 07/02/24 0830 07/01/24 1414 WBC 6.8 7.9 9.1 HGB 7.3* 8.3* 11.1* HCT 22.0* 24.5* 32.0* MCV 82 80 78 PLT 282 346 531* Recent Labs Lab 07/03/24 0558 07/02/24 2355 07/02/24 1736 07/02/24 1213 07/02/24 0830 07/01/24 2334 NA 142 -- -- -- 136 134* POTASSIUM 3.4 3.4 3.1* 3.3* < > 2.4* 2.5* CHLORIDE 100 -- -- -- 86* 80* CO2 31* -- -- -- 37* 37* ANIONGAP 11 -- -- -- 13 17* GLC 91 -- -- -- 84 102* BUN 28.4* -- -- -- 48.1* 52.7* CR 1.53* -- -- -- 2.36* 3.12* GFRESTIMATED 46* -- -- -- 27* 19* ELKE 9.1 -- -- -- 10.7* 11.6* < > = values in this interval not displayed. No results for input(s): CULT in the last 168 hours. Troponin I ES Date Value Ref Range Status 06/04/2019 <0.015 0.000 - 0.045 ug/L Final Comment: The 99th percentile for upper reference range is 0.045 ug/L. Troponin values in the range of 0.045 - 0.120 ug/L may be associated with risks of adverse clinical events. Imaging: No results found for this or any previous visit (from the past 24 hours). Michel Dotson DO [facility] Hospitalist Leonor Law [facility]. [place] [phone] Securely message with [employer] ([employer] info) Text page via [facility] Paging/Directory 07/03/2024 CLE SERVICE ATTENDANT * Mike Teran MD - 07/03/2024 12:36 PM CST Renal Medicine Progress Note Assessment/Plan: 34 y.o woman with recurrent severe hypokalemia and metabolic alkalosis and recurrent acute kidney injuries due to volume depletion. # Recurrent severe hypokalemia and hypochloremic metabolic alkalosis: Gitelman syndrome vs upper GIloss from recurrent vomiting. I reviewed her records from previous admissions and from Dr. Benavides.I do have a high suspicion that electrolytes abnormalities is due more to a GI issue like recurrentvomiting than a Gitelman syndrome type. Hypokalemia hypochhloremic metatabolic alkaosis occur in both Gitelman and volume depletion particularly from vomiting. In Gitelman the would be high and in vomiting it would be low. Patient's urine chloride has always been normal to low from previous admission, suggesting that her severe electrolytes, acid/base status and severe acute kidney injury are more consistent with an upper GI loss. Serum magnesium is typically low in [place] as well. Patient's serum Mg level has always been normal to even high. # Recurrent acute kidney injury from volume depletion: Improved nicely with IVF # Recurrent hypercalcemia in the setting of volume depletion. PTH is appropriately suppressed. Normalized nicely with IVF. 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 # Moderate anemia with Hgb of 8.3 # PTSD and depressive disorder. Plan: # Decrease potassium chloride to 40 meq tid. Plan to continue to decrease and stop potassium supplement while she is here to really see if she has hypokalemia off supplement and if so, how much replacement she would need at steady state # Can continue NS infusion for another liter then stop # Can monitor potassium bid # She says she has a genetic consult via telehealth with the [facility] coming up next wee. I advised her tokeep that appointment # Plan to recheck urine electrolytes when she is at steady state # I advised the patient in the present of Dr. Kinsey to stay in the hospital for the next coupledays to help us help her get to the bottom her severe and recurrent medical issues, so that we can help treat her conditions, and hopefully to prevent recurrent admissions. She agreed to stay. I reviewed notes from the ER (Dr. Bobby), IM (Dr. Locke and Dr. 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 Benavides. I discussed the case with Dr. Dotson. I evaluated the patient and I discussed the case with Dr. Kinsey (psychiatrist). Jose Eduardo, our RN, was present int he room. I discussed the case with Dr. Dotson. Interval History: I visited with patient with our RN (Jose Eduardo) and our psych team (Dr. Kinsey) Patient wants to get an IV port place. I explained to her that until we can help figure out whether if she her severe and recurrent electrolytes abnormalities is due to a condition like Gitelman and other there are other issues involve. Medications and Allergies: Current Facility-Administered Medications Medication Dose Route Frequency Provider Last Rate Last Admin acetaminophen (TYLENOL) tablet 975 mg 975 mg Oral TID Nain Locke DO 975 mg at 07/03/24 0808 gabapentin (NEURONTIN) capsule 300 mg 300 mg Oral BID Nain Locke DO 300 mg at 07/03/24 1152 gabapentin (NEURONTIN) capsule 400 mg 400 mg Oral At Bedtime Nain Locke DO 400 mg at 044 heparin ANTICOAGULANT injection 5,000 Units 5,000 Units Subcutaneous TID Nain Locke DO 5,000 Units at 07/03/24 0809 multivitamin w/minerals (THERA-VIT-M) tablet 1 tablet 1 tablet Oral Daily Nain Locke, DO 1 tablet at 07/03/24 0808 potassium chloride deanne ER (KLOR-CON M20) CR tablet 40 mEq 40 mEq Oral TID Mike Teran MD sodium chloride (PF) 0.9% PF flush 3 mL 3 mL Intracatheter Q8H Nain Locke DO 3 mL at 349 Allergies Allergen Reactions Iron Sucrose Anxiety and [...] Pt declined continuing infusion at lower rate. Ondansetron Other (See Comments) Patient refused to take because it can make QT long and has history of long QT. Physical Exam: Vitals were reviewed , Blood pressure 123/71, pulse 87, temperature 98 ??F (36.7 ??C), temperature source Oral, resp. rate 16, height 1.702 m (5' 7), weight 49 kg (108 lb), SpO2 99%, not currently . Wt Readings from Last 3 Encounters: 07/02/24 49 kg (108 lb) 06/20/24 48.7 kg (107 lb 4.8 oz) 05/31/24 50.2 kg (110 lb 10.7 oz) Intake/Output Summary (Last 24 hours) at 07/03/2024 1233 Last data filed at 07/03/2024 0349 Gross per 24 hour Intake 246 ml Output 200 ml Net 46 ml GENERAL APPEARANCE: NAD HEENT: teeth are rotten RESP: comfortable. Not needing supplemental O2. EXTREMITIES/SKIN: little muscle mass. Grossly no edema NEUR: Awake, alert and conversing Data: CBC RESULTS: Recent Labs Lab 07/03/24 0558 07/02/24 0830 07/01/24 1414 WBC 6.8 7.9 9.1 RBC 2.70* 3.05* 4.12 HGB 7.3* 8.3* 11.1* HCT 22.0* 24.5* 32.0* PLT 282 346 531* Basic Metabolic Panel: Recent Labs Lab 07/03/24 0558 07/02/24 2355 07/02/24 1736 07/02/24 1213 07/02/24 0830 07/01/24 2334 07/01/24 1918 07/01/24 1414 NA 142 -- -- -- 136 134* 133* 129* POTASSIUM 3.4 3.4 3.1* 3.3* 2.9* 2.4* 2.5* 2.7* 2.1* CHLORIDE 100 -- -- -- 86* 80* 79* 66* CO2 31* -- -- -- 37* 37* 38* 44* BUN 28.4* -- -- -- 48.1* 52.7* 55.2* 58.2* CR 1.53* -- -- -- 2.36* 3.12* 3.37* 3.67* GLC 91 -- -- -- 84 102* 114* 104* ELKE 9.1 -- -- -- 10.7* 11.6* 11.7* 14.3* INRNo lab results found in last 7 days. Attestation: I have reviewed today's relevant vital signs, notes, medications, labs and imaging. Mike Teran MD [facility] - Nephrology Office phone :[phone] Pager: [phone] CLE SERVICE ATTENDANT * Madelaine Milian RN - 07/02/2024 6:08 PM CSTSummary: Admit MS 3 ROOM # [id number] personal insurance advisor: Aranza - mother, see facesheet Activity level at baseline: independent Activity level on admit: SBA Patient given Patient Bill of Rights; given the opportunity to ask questions about status and theirplan of care. Patient has been oriented to the room, bathroom and call light is in place. Discusseddischarge goals and expectations with patient/family. Alert/oriented x4. Recent K+ 3.3 - to received K+ at 1999. Q6hr K+ draws. IVF. Denies nausea. Tele: NSR. Fall Risk: Up SBA w/IVF infusing. Pt insists that she is independent I have been walking around the ED all day with my IV pole, I don't want alarms. I will call if I need to get up. Pt educated regarding her risk of falls,, but is refusing all alarms. Per Lab, the urine Bicarb test has been completed/resulted. 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 Of note, the patient has been hospitalized 10+ times since November 2023 for similar issues. In the emergency department, the patient was found to have a temperature of 97.2 ??F, blood pressure 126/100, heart rate 104, respiratory rate 18, SpO2 100% on room air. Initial lab work showed hemoglobin 11.1, platelet 531, sodium 129, potassium 2.1, chloride 66, bicarb 44, BUN/creatinine 15.2/3.67. The patient was provided with electrolyte replacements and started on aggressive IV fluids. Nephrology was consulted to see the patient. TODAY'S PLAN: Appreciate nephrology recommendations. Potassium improving and calcium improved as well. BARBARA is improving. Patient denies any vomiting this morning but reports she still feels a little nauseous. She was able to tolerate a small breakfast, which is encouraging. Denies any diarrhea. Continue IV fluids today. If potassium normalized and no further workup from nephrology, possible discharge home tomorrow. Patient has had multiple admissions in the past 6 months for similar issues. Problem List: Acute Intractable Nausea and Vomiting and Abdominal Pain - Possible her pain is secondary to hypercalcemia. It appears to be improving. Possible her symptoms are a viral gastroenteritis - IVF - Advance diet as tolerated - Antiemetics prn Severe Hypercalcemia - Possibly secondary to dehydration, supplementation, BARBARA, gitelmans - IVF - Improving - Daily BMP Severe Hypokalemia Hyponatremia Hypermagnesemia Gitelman Syndrome Acute Kidney Injury Chronic Kidney Disease Stage 5 - Baseline Cr = 1.2-1.9 - IVF - Appreciate Nephrology recommendations. Pt follows with Dr. Devine as an outpatient - UA with mild proteinuria - FeNa = 0.6 - Resume TECHNICAL STAFF ENGINEER potassium replacement QID - Potassium q6h for now - Avoid nephrotoxins - Improving - Daily BMP Prolonged Qtc - Qtc = 648 ms upon arrival - Avoid Qtc prolonging meds Subacute R Inferior Pubic Ramus Fracture - Appreciate Orthopedic Surgery recommendations - Recommending 6 week follow up for repeat imaging of the pelvis Anxiety/Depression Factitious Disorder Opioid Use Disorder - Pt has hx of opoid use disorder and seeking behaviours. There have been concerns previously for bulimia and factitious disorder during previous hospitalizations. Low BMI and teeth erosions. Pt has been offered psychiatry evaluations previously and has refused them stating she follows with Psych as an outpatient. Severe Malnutrition - BMI = 16.29 - Encouraged PO intake I spent 55 minutes in reviewing this patient's labs, imaging, medications, medical history. In addition time was spent interviewing the patient, communicating with family, and medical decision making. Time was also spent reviewing notes of discharge summaries. DVT Prophylaxis: Pneumatic Compression Devices Code Status: Full Code Diet: Advance Diet as Tolerated: Regular Diet Adult Raymundo Catheter: Not present Disposition: Medically Ready for Discharge: Anticipated Tomorrow Goals to discharge include: potassium improved and stable off IVF, tolerating oral intake Family updated today: No Interval History Pt seen and examined. Pt reports feeling a bit better this morning. -Data reviewed today: I personally reviewed all new labs and imaging results over the last 24 hours. Physical Exam Temp: 97.8 ??F (36.6 ??C) Temp src: Oral BP: (!) 130/96 Pulse: 89 Resp: 16 SpO2: 100 % O2 Device: None (Room air) Vitals: 07/01/24 1126 Weight: 47.2 kg (104 lb) Vital Signs with Ranges Temp: [97.8 ??F (36.6 ??C)-98.2 ??F (36.8 ??C)] 97.8 ??F (36.6 ??C) Pulse: [73-89] 89 Resp: [16-20] 16 BP: (119-147)/(80-105) 130/96 SpO2: [97 %-100 %] 100 % No intake/output data recorded. GENERAL: No apparent distress. Awake, alert, and fully oriented. HEENT: Normocephalic, atraumatic. Extraocular movements intact. CARDIOVASCULAR: Regular rate and rhythm without murmurs or rubs. No S3. PULMONARY: Clear bilaterally. GASTROINTESTINAL: Soft, non-tender, non-distended. Bowel sounds normoactive. EXTREMITIES: No cyanosis or clubbing. No edema. NEUROLOGICAL: CN 2-12 grossly intact, no focal neurological deficits. DERMATOLOGICAL: No rash, ulcer, bruising, nor jaundice. Medications Current Facility-Administered Medications Medication Dose Route Frequency Provider Last Rate Last Admin sodium chloride 0.9 % infusion Intravenous Continuous Nain Locke DO 150 mL/hr at 07/02/24 0904 New Bag at 07/02/24 0904 Current Facility-Administered Medications Medication Dose Route Frequency Provider Last Rate Last Admin acetaminophen (TYLENOL) tablet 975 mg 975 mg Oral TID Nain Locke DO 975 mg at 07/02/24 0900 gabapentin (NEURONTIN) capsule 300 mg 300 mg Oral BID Nain Locke DO 300 mg at 07/02/24 1152 gabapentin (NEURONTIN) capsule 400 mg 400 mg Oral At Bedtime Nain Locke DO 400 mg at heparin ANTICOAGULANT injection 5,000 Units 5,000 Units Subcutaneous TID Nain Locke DO 5,000 Units at 07/01/242008 multivitamin w/minerals (THERA-VIT-M) tablet 1 tablet 1 tablet Oral Daily RachealNain elizabeth DO 1 tablet at 07/02/24 0901 potassium chloride (KAYCIEL) solution 40 mEq 40 mEq Oral 4x Daily Rufina Cha MD 40 mEq at 07/02/24 1153 sodium chloride (PF) 0.9% PF flush 3 mL 3 mL Intracatheter Q8H RachealNain elizabeth DO 3 mL at [id number] Data Laboratory: Recent Labs Lab 07/02/24 0830 07/01/24 1414 WBC 7.9 9.1 HGB 8.3* 11.1* HCT 24.5* 32.0* MCV 80 78 PLT 346 531* Recent Labs Lab 07/02/24 0807/01/24 2334 07/01/24 1918 NA 136 134* 133* POTASSIUM 2.4* 2.5* 2.7* CHLORIDE 86* 80* 79* CO2 37* 37* 38* ANIONGAP 13 17* 16* GLC 84 102* 114* BUN 48.1* 52.7* 55.2* CR 2.36* 3.12* 3.37* GFRESTIMATED 27* 19* 18* ELKE 10.7* 11.6* 11.7* No results for input(s): CULT in the last 168 hours. Troponin I ES Date Value Ref Range Status 06/04/2019 <0.015 0.000 - 0.045 ug/L Final Comment: The 99th percentile for upper reference range is 0.045 ug/L. Troponin values in the range of 0.045 - 0.120 ug/L may be associated with risks of adverse clinical events. Imaging: Recent Results (from the past 24 hours) CT Abdomen Pelvis w/o Contrast Narrative EXAM: CT ABDOMEN PELVIS W/O CONTRAST LOCATION: [facility] DATE: 07/01/2024 INDICATION: Abdominal pain, nausea, [...] MUSCULOSKELETAL: Subacute right inferior pubic ramus fracture. Impression IMPRESSION: 1. No acute findings or inflammatory changes in the abdomen or pelvis. No bowel obstruction. 2. Subacute right inferior pubic ramus fracture. Michel Dotson DO [facility] Hospitalist [place] [address] Securely message with [employer]) Text page via [facility] Paging/Directory 07/02/2024 CLE SERVICE ATTENDANT CLE SERVICE ATTENDANT documented in this encounter H&P Notes * Rachealclara NainDO - 07/01/2024 4:07 PM CST [facility] History and Physical - Hospitalist Service Date of Admission: 07/01/2024 Assessment & Plan Lroraine Klein is a 34 year old female with PMH significant for gitleman syndrome, SBO, CKD, depression, anxiety, adjustment disorder, appendicitis s/p appendectomy admitted on 07/01/2024 with persistent nausea and vomiting. Presents again with nausea, vomiting, abnormal electrolytes. Patient has at least 10+ hospitalizations since November 2023 for same issue of renal dysfunction, electrolyte imbalance. Nausea & vomiting Abdominal pain: Presents with 2 days of nausea and vomiting. Sudden onset. Patient unsure of etiology. Associated with headache. Patient denies any bowel movements or passing of gas during this time. Prior history of small bowel obstruction due to scar tissue after prior appendectomy. Abdominal exam is largely benign apart from some mild diffuse tenderness to palpation. There is no rebound tenderness or guarding. -Obtain CT abdomen pelvis to rule out intra-abdominal pathology -If develops diarrhea, obtain sample for C. difficile and GI panel -MIVF with NS at 150 cc/h -ADAT starting with clears -Start with prn ativan for nausea given prolonged qtc Severe hypercalcemia: Presents with a calcium of 14.3. Multiple prior presentations with hypercalcemia. She has multiple prior normal PTH and vit D levels. She denies significant tums usage. This is likely multifactorial in the setting of dehydration, CKD, possible supplementation. -Will repeat PTH, PTHrp, and vitamin D -Urinalysis -Appreciate nephrology consult -MIVF with NS ag 150 ml/hr after 1.5L bolus -Repeat BMP q6h Severe hypokalemia Hyponatremia Hypermagnesemia Gitleman syndrome: Sodium 129, potassium 2.1. Prior history of same in the setting of her Gitleman syndrome. Follows with Dr. Teran of nephrology. On mag and potassium supplementation TECHNICAL STAFF ENGINEER. -Resume TECHNICAL STAFF ENGINEER potassium 40 meq TID -Given her CKD and TECHNICAL STAFF ENGINEER scheduled potassium supplement ordered, I will NOT order the potassium replacement protocol. Potassium replacement should be dosed by day provider. Monitor closely for hyperkalemia. -Hold TECHNICAL STAFF ENGINEER mag for now given hypermagnesemia -MIVF BARBARA on CKD5: Creatinine 3.67 on presentation. Baseline appears to be approximately 1.2-1.9. This is likely multifactorial in the setting of nausea, vomiting, dehydration, hypercalcemia. -Nephrology consultation -Urinalysis and Fena -MIVF with NS at 150 cc/h -Avoid nephrotoxins Prolonged Qtc: QTc 648 on presentation. Prior history of prolonged QTc. Likely in the setting of electrolyte abnormalities. -Cardiac telemetry -Avoid QTc prolonging agents -Aggressive electrolyte replacement Anxiety & depression: Patient has known diagnosis of anxiety and depression. There is also been concern in the past for bulimia and factitious disorder given recurrent hospitalizations. There is concern for bulimia given low BMI, teeth erosions. However, patient denies this and she has refused psych eval in the past. Suspect psychiatric illness may be in part playing a role into the above recurrent illness. -Consider psychiatric eval Hx opioid use disorder: Prior history of opioid use disorder with seeking behaviors. Previously, her pain has been seemingly out of proportion with exam/findings increasing provider suspicion for secondary gain. -Narcotic use should be minimized especially given concurrent ativan use for nausea -Various alternate medications such as Tylenol, gabapentin, Robaxin should be used prior to narcotic Diet: ADAT DVT Prophylaxis: Heparin SQ Raymundo Catheter: Not present Lines: None Cardiac Monitoring: None Code Status: FULL Clinically Significant Risk Factors Present on Admission # Hypokalemia: Lowest K = 2.1 mmol/L in last 2 days, will replace as needed # Hyponatremia: Lowest Na = 129 mmol/L in last 2 days, will monitor as appropriate # Hypochloremia: Lowest Cl = 66 mmol/L in last 2 days, will monitor as appropriate # Hypercalcemia: Highest Ca = 14.3 mg/dL in last 2 days, will monitor as appropriate # Anion Gap Metabolic Acidosis: Highest Anion Gap = 19 mmol/L in last 2 days, will monitor and treat as appropriate # Acute Kidney Injury, unspecified: based on a >150% or 0.3 mg/dL increase in last creatinine compared to past 90 day average, will monitor renal function # Cachexia: Estimated body mass index is 16.29 kg/m?? as calculated from the following: Height as of this encounter: 1.702 m (5' 7). Weight as of this encounter: 47.2 kg (104 lb). Disposition Plan Medically Ready for Discharge: Anticipated in 2-4 Days Nain Locke DO Hospitalist Service [facility] Securely message with [employer] (more info) Text page via [facility] Paging/Directory Chief Complaint Nausea, vomiting, abdominal pain History is obtained from the patient History of Present Illness Lorraine Klein is a 34 year old female with PMH significant for gitleman syndrome, SBO, CKD, appendicitis s/p appendectomy admitted on 07/01/2024 with persistent nausea and vomiting. Patient presents with 2 days of nausea, vomiting, abdominal pain. She reports 5- 6 bouts of emesis per day. She denies any bowel movements for the past 2 days. Denies any passing of gas. She also endorses associated headache. Feels as if she has an electrical shock that runs from the back of her neck through her forehead. On chart review, has been hospitalized for similar complaints multiple times since mid 2023. Past Medical History Past Medical History: Diagnosis [...] Prescriptions Last Dose Informant Patient Reported? Taking? albuterol (PROAIR HFA/PROVENTIL HFA/VENTOLIN HFA) 108 (90 Base) MCG/ACT inhaler Yes No Sig: Inhale 1-2 puffs into the lungs every 4 hours as needed for shortness of breath, wheezing or cough. ferrous sulfate 325 (65 Fe) MG TBEC EC tablet Yes No Sig: Take 325 mg by mouth 3 times daily (with meals). With food or snack gabapentin (NEURONTIN) 100 MG capsule Yes No Sig: Take 100 mg by mouth at bedtime. with 300 mg capsule gabapentin (NEURONTIN) 300 MG capsule Yes No Sig: Take 300 mg by mouth 3 times daily. Am, Lunch, Bed-time hydrOXYzine HCl (ATARAX) 25 MG tablet No No Sig: Take 1-2 tablets (25-50 mg) by mouth every 6 hours as needed for other (adjuvant pain). magnesium oxide (MAG-OX) 400 MG tablet Yes No Sig: Take 400 mg by mouth 3 times daily (with meals). methocarbamol (ROBAXIN) 750 MG tablet Yes No Sig: Take 750 mg by mouth 4 times daily as needed for muscle spasms. multivitamin, therapeutic (THERA-VIT) TABS Self Yes No Sig: Take 1 tablet by mouth daily ondansetron (ZOFRAN) 4 MG tablet Yes No Sig: Take 4 mg by mouth every 8 hours as needed for nausea or vomiting. potassium chloride deanne ER (KLOR-CON M20) 20 MEQ CR tablet No No Sig: Take 2 tablets (40 mEq) by mouth 3 times daily. senna-docusate (SENOKOT-S/PERICOLACE) 8.6-50 MG tablet No No Sig: Take 1 tablet by mouth 2 times daily as needed for constipation. traMADol (ULTRAM) 50 MG tablet Yes No Sig: Take 50 mg by mouth 2 times daily as needed for severe pain. Facility-Administered Medications: None Review of Systems The 10 point Review of Systems is negative other than noted in the HPI or here. Social History I have reviewed this patient's [...] Pt declined continuing infusion at lower rate. Ondansetron Other (See Comments) Patient refused to take because it can make QT long and has history of long QT. Physical Exam Vital Signs: Temp: 97.2 ??F (36.2 ??C) BP: (!) 126/100 Pulse: 104 Resp: 18 SpO2: 100 % Weight: 104 lbs 0 oz General Appearance: Patient awake & alert. No apparent distress. Respiratory: Lungs are CTAB. Work of breathing appears normal on room air. Cardiovascular: Regular rate and rhythm. No murmurs rubs or gallops. There is no edema present. GI: Benign. Mild, diffuse TTP. Bowel sounds active. Skin: No rashes or lesions exposed skin. Neuro: The patient is moving all extremities. No obvious focal asymmetries. Other: Patient is appropriate. Medical Decision Making 75 MINUTES SPENT BY ME on the date of service doing chart review, history, exam, documentation & further activities per the note. Data PAST 24 HR DATA REVIEWED I have personally reviewed the following data over the past 24 hrs: 9.1 \ 11.1 (L) / 531 (H) 129 (L) 66 (L) 58.2 (H) / 104 (H) 2.1 (LL) 44 (H) 3.67 (H) \ ALT: 9 AST: 18 AP: 84 TBILI: 0.3 ALB: 5.6 (H) TOT PROTEIN: 8.8 (H) LIPASE: 29 Trop: <6 BNP: N/A Imaging results reviewed over the past 24 hrs: No results found for this or any previous visit (from the past 24 hours). CLE SERVICE ATTENDANT CLE SERVICE ATTENDANT documented in this encounter Consult Notes * Suri Jane RN - 07/03/2024 11:55 AM CSTAssociated Order(s): CARE MANAGEMENT / SOCIAL WORK IP CONSULT Care Management Initial Consult General Information Assessment completed with: PatientLorraine Type of CM/SW Visit: Initial Assessment Primary Care Provider verified and updated as needed: Yes Readmission within the last 30 days: other (see comments) (recurrent admissions has a disease) Reason for Consult: care coordination/care conference (high URR) Advance Care Planning: Communication Assessment Patient's communication style: spoken language (Mongolian or Bilingual) Hearing Difficulty or Deaf: no Wear Glasses or Blind: yes Cognitive Cognitive/Neuro/Behavioral: .WDL except Mood/Behavior: anxious Living Environment: People in home: alone Current living Arrangements: apartment Able to return to prior arrangements: yes Family/Social Support: Care provided by: self, parent(s), other (see comments) (aunts) Provides care for: no one, unable/limited ability to care for self Marital Status: Single Support system: Parent(s), Other (specify) (aunts) Description of Support System: Involved, Supportive Support Assessment: Adequate social supports Current Resources: Patient receiving home care services: Community Resources: Equipment currently used at home: none Supplies currently used at home: Employment/Financial: Employment Status: Financial Concerns: Does the patient's insurance plan have a 3 day qualifying hospital stay waiver? No Lifestyle & Psychosocial Needs: Social Drivers of Health Food Insecurity: Low Risk (07/02/2024) Food Insecurity Within the past 12 months, did you worry that your food would run out before you got money to buy more?: No Within the past 12 months, did the food you bought just not last and you didn???t have money to getmore?: No Depression: At risk (10/22/2023) Received from [facility] PHQ-2 PHQ-2 TOTAL SCORE: 3 Housing Stability: Low Risk (07/02/2024) Housing Stability Do you have housing? : Yes Are you worried about losing your housing?: No Recent Concern: Housing Stability - High Risk (05/29/2024) Housing Stability Do you have housing? : No Are you worried about losing your housing?: No Tobacco Use: Low Risk (06/30/2024) Received from [employer] Patient History Smoking Tobacco Use: Never Smokeless Tobacco Use: Never Passive Exposure: Never Financial Resource Strain: Low Risk (07/02/2024) Financial Resource Strain Within the past 12 months, have you or your family members you live with been unable to get utilities (heat, electricity) when it was really needed?: No Alcohol Use: Not At Risk (04/07/2021) Received from [facility] Frequency of Alcohol Consumption: Never Average Number of Drinks: Not on file Frequency of Binge Drinking: Not on file Transportation Needs: Low Risk (07/02/2024) Transportation Needs Within the past 12 months, has lack of transportation kept you from medical appointments, getting your medicines, non-medical meetings or appointments, work, or from getting things that you need?: No Physical Activity: Sufficiently Active (04/07/2021) [facility] Exercise Vital Sign Days of Exercise per Week: 6 days Minutes of Exercise per Session: 90 min Interpersonal Safety: Low Risk (07/02/2024) Interpersonal Safety Do you feel physically and emotionally safe where you currently live?: Yes Within the past 12 months, have you been hit, slapped, kicked or otherwise physically hurt by someone?: No Within the past 12 months, have you been humiliated or emotionally abused in other ways by your partner or ex-partner?: No Stress: No Stress Concern Present (04/07/2021) Re[facility] from [facility] [employer] [place] [facility] [employer] [facility] - Occupational Stress Questionnaire Feeling of Stress : Only a little Social Connections: Socially Integrated (02/29/2024) [facility] Social Connections Do you often feel lonely or isolated from those around you?: 0 Health Literacy: Not on file Functional Status: Prior to admission patient needed assistance: Dependent ADLs:: Independent, Ambulation-walker Dependent IADLs:: Independent Assesssment of Functional Status: Not at functional baseline Mental Health Status: Chemical Dependency Status: Values/Beliefs: Spiritual, Cultural Beliefs, Zoroastrianism Practices, Values that affect care: Discussed ???Partnership in Safe Discharge Planning??? document with patient/family: No Additional Information: Patient admitted with persistent N&V. Patient has Gitleman syndrome. She is followed by Nephrology, Ortho and the Hospitalist. Patient denies any discharge needs. She was admitted with a n Unplanned Readmission Risk of 39%. Patient has an involved support system of her mom and aunts. She is independent in all cares, tasks and ambulates with a walker now due to her hip. CM identifies no needs. Consult completed. Elzbieta Jane RN, BSN, CM Inpatient Care Coordination [facility] [phone] CLE SERVICE ATTENDANT * Eli Kinsey MD - 07/03/2024 11:00 AM CST Images from the original note were not included. Initial Psychiatric Consult Consult date: July 03, 2024 Reason for Consult, requesting source: Concern for eating disorder Requesting source: Dr. Dotson Labs and imaging reviewed. BMP, past psychiatry notes HPI: 34 female with a reported history of Gitelman syndrome that was diagnosed clinically and never by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 volume depletion. 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 I reviewed her records from previous admissions and from Dr. Benavides. I do have a high suspicion that electrolytes abnormalities is due more to a GI issue like recurrent vomiting than a Gitelman syndrome type. Hypokalemia hypochhloremic metatabolic alkaosis occur in both Gitelman and volume depletion particularly from vomiting. In Gitelman the would be high and in vomiting it would be low. Patient's urine chloride has always been normal to low from previous admission, suggesting that her severe electrolytes, acid/base status and severe acute kidney injury are mo re consistent with an upper GI loss. Serum magnesium is typically low in Gitelman as well. Patient's serum Mg level has always been normal to even high. # Recurrent acute kidney injury from volume depletion # Recurrent hypercalcemia in the setting of volume depletion. PTH is appropriately suppressed. 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 # Moderate anemia with Hgb of 8.3 # PTSD and depressive disorder. Eating disorder? Plan: # Patient has had multiple admissions for similar severe electrolytes abnormalities and acute kidney injury. There is high suspicion that these abnormal findings are due self-induced vomiting. Patient has multiple admission, so it would be best to keep her hospitalized until we have somewhat a definitive diagnosis to prevent recurrent admissions. # Continue to replaced potassium per hypokalemic protocol. # Add-on iron study # Please consult psychiatry I reviewed notes from the ER (Dr. Bobby), IM (Dr. Locke and Dr. 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 Benavides. I discussed the case with Dr. Dotson. Mike Teran MD [facility] - Nephrology Office Pager: [phone] CLE SERVICE ATTENDANT CLE SERVICE ATTENDANT CLE SERVICE ATTENDANT CLE SERVICE ATTENDANT * Jackie Villareal PA-C - 07/02/2024 8:00 AM CSTAssociated Order(s): ORTHOPEDIC SURGERY IP CONSULT [facility] Orthopedic Consultation Lorraine Klein Age: [age] year old Date of : 1990 Date of Admission: 07/01/2024 Reason for consult: subacute R pubic ramus fx Requesting physician: Nain Locke DO Level of consult: One-time consult to assist in determining a diagnosis and to recommend an appropriate treatment plan Assessment and Plan: Assessment: 34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 Patient does report right hip pain after fall down stairs within the past month, prior images were obtained of ankle and knee with no evidence of acute fracture. CT of abdomen and pelvis was obtained in the Emergency Department which demonstrates subacute right inferiorpubic ramus fracture which was likely related to her prior fall down stairs. Plan: The patient's history and clinical/diagnostic findings were reviewed with the on-call orthopedic trauma surgeon. This pelvic fracture is amendable to non- operative management with the following recommendations: - WBAT, with assistive device as needed for support (assistive device not required) - Pain control as needed. Will defer to primary team for management. - Stool softeners as needed. - 6 week follow-up on outpatient basis for repeat imaging of pelvis. This may be completed through primary care office, or orthopedic clinic depending on patient's preference. Follow up Outpatient with [facility], non-operative provider or sports medicine- You may call [phone] or [phone] to schedule an appointment. Please contact orthopedic trauma team if any questions or concerns arise. 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 Patient reports worsening symptoms of Gitelman disease with vomiting which brings her to the Emergency Department. Patient does report right hip pain after fall down stairs within the past month, prior images were obtained of ankle andknee with no evidence of acute fracture. CT of abdomen and pelvis was obtained in the Emergency Department which demonstrates subacute right inferior pubic ramus fracture which was likely related to her prior fall down stairs. Patient endorses pain of the right hip but reports she has been able to ambulate. 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 IBS (irritable bowel syndrome) SBO (small bowel obstruction) (H) Past Surgical History: Past Surgical History: Procedure Laterality Date APPENDECTOMY 1999 open ESOPHAGOSCOPY, GASTROSCOPY, DUODENOSCOPY (EGD), COMBINED Left 11/03/2019 Procedure: ESOPHAGOGASTRODUODENOSCOPY, WITH BIOPSIES; Surgeon: Kevin Cook MD; Location: [facility] EXCISE LESION AXILLA Left IR CHEST PORT PLACEMENT > 5 YRS OF AGE 701/04/2016 LAPAROSCOPY DIAGNOSTIC (GENERAL) 2018 takedown of gtube site Social History: Social History Tobacco Use Smoking status: Never Smokeless tobacco: Never Substance Use Topics Alcohol use: No Family History: Family History Problem Relation Age of Onset Other - See Comments Father Hypokalemia Hypothyroidism Mother Juvenile idiopathic arthritis Sister Breast Cancer Maternal Grandmother Colon Cancer Paternal Uncle Immunizations: VACCINE/DOSE Diptheria DPT DTAP HBIG Hepatitis A Hepatitis B HIB Influenza Measles Meningococcal MMR Mumps Pneumococcal Polio Rubella Small Pox TDAP Varicella Zoster Allergies: Allergies Allergen Reactions Iron Sucrose Anxiety [...] Pt declined continuing infusion at lower rate. Ondansetron Other (See Comments) Patient refused to take because it can make QT long and has history of long QT. Medications: Current Facility-Administered Medications Medication Dose Route Frequency Provider Last Rate Last Admin acetaminophen (TYLENOL) tablet 975 mg 975 mg Oral TID Nain Locke DO 975 mg at 07/02/24 0900 albuterol (PROVENTIL HFA/VENTOLIN HFA) inhaler 1-2 puff Inhalation Q4H PRN Nain Locke DO calcium carbonate (TUMS) chewable tablet 1,000 mg 1,000 mg Oral 4x Daily PRN Nain Locke DO gabapentin (NEURONTIN) capsule 300 mg 300 mg Oral BID Nain Locke DO 300 mg at 07/02/24 0900 gabapentin (NEURONTIN) capsule 400 mg 400 mg Oral At Bedtime Nain Locke DO 400 mg at 101 heparin ANTICOAGULANT injection 5,000 Units 5,000 Units Subcutaneous TID Nain Locke DO 5,000 Units at 07/01/242008 HYDROmorphone (DILAUDID) tablet 2 mg 2 mg Oral Q4H PRN Michel Dotson DO HYDROmorphone (PF) (DILAUDID) injection 0.3 mg 0.3 mg Intravenous Q4H PRN Michel Dotson DO lidocaine (LMX4) cream Topical Q1H PRN Nain Locke DO lidocaine 1 % 0.1-1 mL 0.1-1 mL Other Q1H PRN Nain Locke DO LORazepam (ATIVAN) injection 0.5 mg 0.5 mg Intravenous Q6H PRN Jesus Bobby MD 0.5 mg at 07/01/24 1612 melatonin tablet 5 mg 5 mg Oral At Bedtime PRN Nain Locke DO methocarbamol (ROBAXIN) tablet 750 mg 750 mg Oral 4x Daily PRN Nain Locke DO 750 mg at 07/02/24 0438 multivitamin w/minerals (THERA-VIT-M) tablet 1 tablet 1 tablet Oral Daily Nain Locke DO 1 tablet at 07/02/24 0901 naloxone (NARCAN) injection 0.2 mg 0.2 mg Intravenous Q2 Min PRN Nain Locke DO Or naloxone (NARCAN) injection 0.4 mg 0.4 mg Intravenous Q2 Min PRN Nain Locke DO Or naloxone (NARCAN) injection 0.2 mg 0.2 mg Intramuscular Q2 Min PRN Nain Locke DO Or naloxone (NARCAN) injection 0.4 mg 0.4 mg Intramuscular Q2 Min PRN Nain Locke DO potassium chloride (KAYCIEL) solution 40 mEq 40 mEq Oral 4x Daily Rufina Cha MD 40 mEq at 07/02/24 0900 senna-docusate (SENOKOT-S/PERICOLACE) 8.6-50 MG per tablet 1 tablet 1 tablet Oral BID PRN Nain Locke DO Or senna-docusate (SENOKOT-S/PERICOLACE) 8.6-50 MG per tablet 2 tablet 2 tablet Oral BID PRN Nain Locke, DO sodium chloride (PF) 0.9% PF flush 3 mL 3 mL Intracatheter Q8H Nain Locke DO 3 mL at [id number] sodium chloride (PF) 0.9% PF flush 3 mL 3 mL Intracatheter q1 min prn Nain Locke DO sodium chloride 0.9 % infusion Intravenous Continuous Nain Locke DO 150 mL/hr at 07/02/24903 New Bag at 07/02/24903 Current Outpatient Medications Medication Sig Dispense Refill albuterol (PROAIR HFA/PROVENTIL HFA/VENTOLIN HFA) 108 (90 Base) MCG/ACT inhaler Inhale 1-2 puffs into the lungs every 4 hours as needed for shortness of breath, wheezing or cough. ferrous sulfate 325 (65 Fe) MG TBEC EC tablet Take 325 mg by mouth 3 times daily (with meals). Withfood or snack gabapentin (NEURONTIN) 100 MG capsule Take 100 mg by mouth at bedtime. with 300 mg capsule gabapentin (NEURONTIN) 300 MG capsule Take 300 mg by mouth 3 times daily. Am, Lunch, Bed-time hydrOXYzine HCl (ATARAX) 25 MG tablet Take 1-2 tablets (25-50 mg) by mouth every 6 hours as needed for other (adjuvant pain). 30 tablet 0 magnesium oxide (MAG-OX) 400 MG tablet Take 400 mg by mouth 3 times daily (with meals). methocarbamol (ROBAXIN) 750 MG tablet Take 750 mg by mouth 4 times daily as needed for muscle spasms. Multiple Vitamins-Iron (ONE DAILY MULTIVITAMIN/IRON PO) Take 1 tablet by mouth daily. ondansetron (ZOFRAN) 4 MG tablet Take 4 mg by mouth every 8 hours as needed for nausea or vomiting. potassium chloride deanne ER (KLOR-CON M20) 20 MEQ CR tablet Take 2 tablets (40 mEq) by mouth 3 timesdaily. senna-docusate (SENOKOT-S/PERICOLACE) 8.6-50 MG tablet Take 1 tablet by mouth 2 times daily as needed for constipation. traMADol (ULTRAM) 50 MG tablet Take 50 mg by mouth 2 times daily as needed for severe pain. Review of Systems: CV: NEGATIVE for chest pain, palpitations or peripheral edema C: NEGATIVE for fever, chills, change in weight E/M: NEGATIVE for ear, mouth and throat problems R: NEGATIVE for significant cough or SOB GI: POSITIVE: nausea and vomiting Physical Exam: All vitals have been reviewed Patient Vitals for the past 24 hrs: BP Temp Temp src Pulse Resp SpO2 Height Weight 07/02/24 0733 (!) 130/96 97.8 ??F (36.6 ??C) Oral -- 16 100 % -- -- 07/02/24 0218 (!) 130/91 98 ??F (36.7 ??C) Oral 80 16 98 % -- -- 07/01/24 2232 128/84 98.2 ??F (36.8 ??C) Oral 83 20 97 % -- -- 07/01/24 1900 119/80 98.2 ??F (36.8 ??C) Oral 76 18 100 % -- -- 07/01/24 1802 (!) 146/101 98 ??F (36.7 ??C) Oral -- 18 100 % -- -- 07/01/24 1608 (!) 137/94 -- -- 87 -- 99 % -- -- 07/01/24 1558 (!) 147/105 -- -- 82 17 97 % -- -- 07/01/24 1548 (!) 139/102 -- -- 87 -- 97 % -- -- 07/01/24 1126 (!) 126/100 97.2 ??F (36.2 ??C) -- 104 18 100 % 1.702 m (5' 7) 47.2 kg (104 lb) No intake or output data in the 24 hours ending 07/02/24 0923 Constitutional: Pleasant, alert, appropriate, following commands. HEENT: Head atraumatic normocephalic. Pupils equal round and reactive. Respiratory: Unlabored breathing no audible wheeze Cardiovascular: Regular rate and rhythm per pulses. GI: Abdomen is non-distended. Lymph/Hematologic: No lymphadenopathy in areas examined. Genitourinary: No raymundo Skin: No rashes, no cyanosis, no edema. Musculoskeletal: Skin is clean, dry, and intact. Minimal erythema of the surrounding skin. Bilateral calves are soft, non-tender. Bilateral lower extremity is NVI. Sensation intact bilateral lower extremities 5/5 motor with resisted dorsi and plantar flexion bilaterally Able to actively straight leg raise and flex/externally rotate right hip despite reported pain 3+Dp pulse Neurologic: normal without focal findings, mental status, speech normal, alert and oriented x iii Neuropsychiatric: stable Data: All laboratory data reviewed Results for orders placed or performed during the hospital encounter of 07/01/24 CT Abdomen Pelvis w/o Contrast Status: None Narrative EXAM: CT ABDOMEN PELVIS W/O CONTRAST LOCATION: [facility] DATE: 07/01/2024 INDICATION: Abdominal pain, nausea, [...] MUSCULOSKELETAL: Subacute right inferior pubic ramus fracture. Impression IMPRESSION: 1. No acute findings or inflammatory changes in the abdomen or pelvis. No bowel obstruction. 2. Subacute right inferior pubic ramus fracture. Basic metabolic panel (BMP) Status: Abnormal Result Value Ref Range Sodium 129 (L) 135 - 145 mmol/L Potassium 2.1 (LL) 3.4 - 5.3 mmol/L Chloride 66 (L) 98 - 107 mmol/L Carbon Dioxide (CO2) 44 (H) 22 - 29 mmol/L Anion Gap 19 (H) 7 - 15 mmol/L Urea Nitrogen 58.2 (H) 6.0 - 20.0 mg/dL Creatinine 3.67 (H) 0.51 - 0.95 mg/dL GFR Estimate 16 (L) >60 mL/min/1.73m2 Calcium 14.3 (HH) 8.8 - 10.4 mg/dL Glucose 104 (H) 70 - 99 mg/dL HCG QUALitative (blood) Status: Normal Result Value Ref Range hCG Serum Qualitative Negative Negative Extra Tube ([place] Draw) Status: None Narrative The following orders were created for panel order Extra Tube ([place] Draw). Procedure Abnormality Status --------- ------ Extra Blue Top Tube[[id number]] Final result Please view results for these tests on the individual orders. Influenza A/B, RSV and SARS-CoV2 PCR (COVID-19) Nasopharyngeal Status: Normal Specimen: Nasopharyngeal; Swab Result Value Ref Range Influenza A PCR Negative Negative Influenza B PCR Negative Negative RSV PCR Negative Negative SARS CoV2 PCR Negative Negative Narrative Testing was performed using the Xpert Xpress CoV2/Flu/RSV Assay on the [employer] Instrument. This test should be ordered for the detection of SARS- CoV2, influenza, and RSV viruses in individuals with signs and symptoms of respiratory tract infection. This test is for in vitro diagnostic useunder the [place] FDA for laboratories certified under [...] management. This test was validated by the [facility] [employer]. These laboratories are certified under the Clinical Laboratory Improvement Amendments of 1988 (CLIA-88) as qualified to perfom high complexity laboratory testing. CBC with platelets and differential Status: Abnormal Result Value Ref Range WBC Count 9.1 4.0 - 11.0 10e3/uL RBC Count 4.12 3.80 - 5.20 10e6/uL Hemoglobin 11.1 (L) 11.7 - 15.7 g/dL Hematocrit 32.0 (L) 35.0 - 47.0 % MCV 78 78 - 100 fL MCH 26.9 26.5 - 33.0 pg MCHC 34.7 31.5 - 36.5 g/dL RDW 14.0 10.0 - 15.0 % Platelet Count 531 (H) 150 - 450 10e3/uL % Neutrophils 70 % % Lymphocytes 20 % % Monocytes 7 % % Eosinophils 1 % % Basophils 1 % % Immature Granulocytes 0 % NRBCs per 100 WBC 0 <1 /100 Absolute Neutrophils 6.4 1.6 - 8.3 10e3/uL Absolute Lymphocytes 1.8 0.8 - 5.3 10e3/uL Absolute Monocytes 0.6 0.0 - 1.3 10e3/uL Absolute Eosinophils 0.1 0.0 - 0.7 10e3/uL Absolute Basophils 0.1 0.0 - 0.2 10e3/uL Absolute Immature Granulocytes 0.0 <=0.4 10e3/uL Absolute NRBCs 0.0 10e3/uL Extra Blue Top Tube Status: None Result Value Ref Range Hold Specimen [facility] Magnesium Status: Abnormal Result Value Ref Range Magnesium 2.8 (H) 1.7 - 2.3 mg/dL Troponin T, High Sensitivity Status: Normal Result Value Ref Range Troponin T, High Sensitivity <6 <=14 ng/L Hepatic panel Status: Abnormal Result Value Ref Range Protein Total 8.8 (H) 6.4 - 8.3 g/dL Albumin 5.6 (H) 3.5 - 5.2 g/dL Bilirubin Total 0.3 <=1.2 mg/dL Alkaline Phosphatase 84 40 - 150 U/L AST 18 0 - 45 U/L ALT 9 0 - 50 U/L Bilirubin Direct <0.20 0.00 - 0.30 mg/dL Lipase Status: Normal Result Value Ref Range Lipase 29 13 - 60 U/L Ionized Calcium Status: Abnormal Result Value Ref Range Calcium Ionized Whole Blood 5.6 (H) 4.4 - 5.2 mg/dL Parathyroid Hormone Intact Status: Normal Result Value Ref Range Parathyroid Hormone Intact 28 15 - 65 pg/mL Narrative This result was obtained with the [employer] PTH STAT assay. This reference range differs from PTH assays used in other [facility] laboratories. Vitamin D Deficiency Status: Normal Result Value Ref Range Vitamin D, Total (25-Hydroxy) 20 20 - 50 ng/mL Narrative Season, race, dietary intake, and treatment affect the concentration of 55-[id number] D. Values may decrease during winter months and increase during summer months. Vitamin D determination is routinely performed by an immunoassay specific for 25 hydroxyvitamin D3.If an individual is on vitamin D2(ergocalciferol) supplementation, please specify 25 [place] vitamin D2 and D3 level determination by LCMSMS test [id number]. UA with Microscopic reflex to Culture Status: Abnormal Specimen: Urine, Midstream Result Value Ref Range Color Urine Straw Colorless, Straw, Light Yellow, Yellow Appearance Urine Clear Clear Glucose Urine Negative Negative mg/dL Bilirubin Urine Negative Negative Ketones Urine Negative Negative mg/dL Specific [place] Urine 1.016 1.003 - 1.035 Blood Urine Negative Negative pH Urine 6.5 5.0 - 7.0 Protein Albumin Urine 30 (A) Negative mg/dL Urobilinogen Urine Normal Normal, 2.0 mg/dL Nitrite Urine Negative Negative Leukocyte Esterase Urine Negative Negative Mucus Urine Present (A) None Seen /LPF RBC Urine 1 <=2 /HPF WBC Urine 1 <=5 /HPF Squamous Epithelials Urine 1 <=1 /HPF Narrative Urine Culture not indicated Basic metabolic panel Status: Abnormal Result Value Ref Range Sodium 133 (L) 135 - 145 mmol/L Potassium 2.7 (L) 3.4 - 5.3 mmol/L Chloride 79 (L) 98 - 107 mmol/L Carbon Dioxide (CO2) 38 (H) 22 - 29 mmol/L Anion Gap 16 (H) 7 - 15 mmol/L Urea Nitrogen 55.2 (H) 6.0 - 20.0 mg/dL Creatinine 3.37 (H) 0.51 - 0.95 mg/dL GFR Estimate 18 (L) >60 mL/min/1.73m2 Calcium 11.7 (H) 8.8 - 10.4 mg/dL Glucose 114 (H) 70 - 99 mg/dL Fractional Excretion of Sodium Status: None Result Value Ref Range Creatinine Urine mg/dL 86.1 mg/dL Sodium Urine mmol/L 22 mmol/L %FENA 0.6 % Phosphorus Status: Normal Result Value Ref Range Phosphorus 3.3 2.5 - 4.5 mg/dL Basic metabolic panel Status: Abnormal Result Value Ref Range Sodium 134 (L) 135 - 145 mmol/L Potassium 2.5 (LL) 3.4 - 5.3 mmol/L Chloride 80 (L) 98 - 107 mmol/L Carbon Dioxide (CO2) 37 (H) 22 - 29 mmol/L Anion Gap 17 (H) 7 - 15 mmol/L Urea Nitrogen 52.7 (H) 6.0 - 20.0 mg/dL Creatinine 3.12 (H) 0.51 - 0.95 mg/dL GFR Estimate 19 (L) >60 mL/min/1.73m2 Calcium 11.6 (H) 8.8 - 10.4 mg/dL Glucose 102 (H) 70 - 99 mg/dL Magnesium Status: Abnormal Result Value Ref Range Magnesium 2.5 (H) 1.7 - 2.3 mg/dL CBC with platelets Status: Abnormal Result Value Ref Range WBC Count 7.9 4.0 - 11.0 10e3/uL RBC Count 3.05 (L) 3.80 - 5.20 10e6/uL Hemoglobin 8.3 (L) 11.7 - 15.7 g/dL Hematocrit 24.5 (L) 35.0 - 47.0 % MCV 80 78 - 100 fL MCH 27.2 26.5 - 33.0 pg MCHC 33.9 31.5 - 36.5 g/dL RDW 14.5 10.0 - 15.0 % Platelet Count 346 150 - 450 10e3/uL EKG 12 lead Status: None Result Value Ref Range Systolic Blood Pressure mmHg Diastolic Blood Pressure mmHg Ventricular Rate 88 BPM Atrial Rate 88 BPM NH Interval 136 ms QRS Duration 90 ms QT 536 ms QTc 648 ms P [place] 70 degrees R AXIS 84 degrees T [place] 78 degrees Interpretation ECG Sinus rhythm Left ventricular hypertrophy with repolarization abnormality ( Sokolow-Hernandez ) Marked ST abnormality, possible anterior subendocardial injury Prolonged QT Abnormal ECG When compared with ECG of 18-Jun-2024 11:14, Significant changes have occurred Unconfirmed report - interpretation of this ECG is computer generated - see medical record for final interpretation Confirmed by - EMERGENCY ROOM, PHYSICIAN ([id number]), managing editor NETTIE KIM ([id number]) on 07/01/2024 12:28:51PM CBC + differential Status: Abnormal Narrative The following orders were created for panel order CBC + differential. Procedure Abnormality Status --------- ------ CBC with platelets and d...[[id number]] Abnormal Final result Please view results for these tests on the individual orders. Fractional excretion of sodium Status: None Narrative The following orders were created for panel order Fractional excretion of sodium. Procedure Abnormality Status --------- ------ Fractional Excretion of ...[[id number]] Final result Please view results for these tests on the individual orders. Attestation: I have reviewed today's vital signs, notes, medications, labs and imaging with Dr. Ferrara. Amount of time performed on this consult: 50 minutes. Jackie Villareal PA-C [facility] Cosigned by Onel Ferrara MD at 07/02/2024 2:38 PM VEHICLE SERVICE ATTENDANT CLE SERVICE ATTENDANT CLE SERVICE ATTENDANT Associated attestation - Onel Ferrara MD - 07/02/2024 2:38 PM VEHICLE SERVICE ATTENDANT Physician Attestation I agree with the information in this note. Onel Ferrara MD documented in this encounter ED Notes * Kortney Landers RN - 07/01/2024 4:45 PM CST Bed: ED19 Expected date: Expected time: Means of arrival: Comments: ED12 CLE SERVICE ATTENDANT * Jody Cole RN - 07/01/2024 4:17 PM CST [facility] ED Nurse Handoff Report ED Chief complaint: Vomiting and Palpitations . ED Diagnosis: Final diagnoses: Intractable nausea and vomiting Gitelman syndrome Hypokalemia Hyponatremia Hypercalcemia BARBARA (acute kidney injury) (H) Headache, unspecified headache type Prolonged Q-T interval on ECG Allergies: Allergies Allergen Reactions Iron Sucrose Anxiety [...] Pt declined continuing infusion at lower rate. Ondansetron Other (See Comments) Patient refused to take because it can make QT long and has history of long QT. Code Status: Full Code Activity level - Baseline/Home: independent. Activity Level - Current: standby. Lift room needed: No. Bariatric: No Resin Remover Needed: No Isolation: No. Infection: Not Applicable. Respiratory status: Room air Vital Signs (within 30 minutes): Vitals: 07/01/24 1126 07/01/24 1548 07/01/24 1558 07/01/24 1608 BP: (!) 126/100 (!) 139/102 (!) 147/105 (!) 137/94 Pulse: 104 87 82 87 Resp: 18 17 Temp: 97.2 ??F (36.2 ??C) SpO2: 100% 97% 97% 99% Weight: 47.2 kg (104 lb) Height: 1.702 m (5' 7) Cardiac Rhythm: , Pain level: Patient confused: No. Patient Falls Risk: patient and family education. Elimination Status: Has voided Patient Report - Initial Complaint: N/V/palpitations. Focused Assessment: A&Ox4, able to make needs known. C/o nausea/neck pain Abnormal Results: Labs Ordered and Resulted from Time of ED Arrival to Time of ED Departure BASIC METABOLIC PANEL - Abnormal Result Value Sodium 129 (*) Potassium 2.1 (*) Chloride 66 (*) Carbon Dioxide (CO2) 44 (*) Anion Gap 19 (*) Urea Nitrogen 58.2 (*) Creatinine 3.67 (*) GFR Estimate 16 (*) Calcium 14.3 (*) Glucose 104 (*) CBC WITH PLATELETS AND DIFFERENTIAL - Abnormal WBC Count 9.1 RBC Count 4.12 Hemoglobin 11.1 (*) Hematocrit 32.0 (*) MCV 78 MCH 26.9 MCHC 34.7 RDW 14.0 Platelet Count 531 (*) % Neutrophils 70 % Lymphocytes 20 % Monocytes 7 % Eosinophils 1 % Basophils 1 % Immature Granulocytes 0 NRBCs per 100 WBC 0 Absolute Neutrophils 6.4 Absolute Lymphocytes 1.8 Absolute Monocytes 0.6 Absolute Eosinophils 0.1 Absolute Basophils 0.1 Absolute Immature Granulocytes 0.0 Absolute NRBCs 0.0 MAGNESIUM - Abnormal Magnesium 2.8 (*) HEPATIC FUNCTION PANEL - Abnormal Protein Total 8.8 (*) Albumin 5.6 (*) Bilirubin Total 0.3 Alkaline Phosphatase 84 AST 18 ALT 9 Bilirubin Direct <0.20 IONIZED CALCIUM - Abnormal Calcium Ionized Whole Blood 5.6 (*) HCG QUALITATIVE - Normal hCG Serum Qualitative Negative INFLUENZA A/B, RSV AND SARS-COV2 PCR - Normal Influenza A PCR Negative Influenza B PCR Negative RSV PCR Negative SARS CoV2 PCR Negative TROPONIN T, HIGH SENSITIVITY - Normal Troponin T, High Sensitivity <6 LIPASE - Normal Lipase 29 No orders to display Treatments provided: SEE MAR Family Comments: NA OBS brochure/video discussed/provided to patient: N/A ED Medications: Medications sodium chloride 0.9% BOLUS 1,000 mL (1,000 mLs Intravenous $New Bag 07/01/24 1605) LORazepam (ATIVAN) injection 0.5 mg (0.5 mg Intravenous $Given 07/01/24 1612) potassium chloride 10 mEq in 100 mL sterile water infusion (10 mEq Intravenous $New Bag 07/01/24 1605) potassium chloride (KLOR-CON) Packet 40 mEq (40 mEq Oral $Given 07/01/24 1604) dexAMETHasone PF (DECADRON) injection 4 mg (4 mg Intravenous $Given 07/01/24 1603) acetaminophen (TYLENOL) tablet 1,000 mg (1,000 mg Oral $Given 07/01/24 1603) Drips infusing: No For the majority of the shift this patient was Green. Interventions performed were NA. Sepsis treatment initiated: No Cares/treatment/interventions/medications to be completed following ED care: K Replacement, fluid replacement ED Nurse Name: Jody Cole RN 4:17 PM CLE SERVICE ATTENDANT * Rosmery Watson RN - 07/01/2024 3:15 PM CST Bed: ED11 Expected date: Expected time: Means of arrival: Comments: triage CLE SERVICE ATTENDANT * Jesus Bobby MD - 07/01/2024 2:22 PM CST Emergency Department Note History of Present Illness Chief Complaint Vomiting and Palpitations HPI Lorraine Klein is a 34 year old female with a history of Gitelman disease, stage 5 CKD, opioid dependence, anemia, hypercalcemia, hypomagnesemia, ventral hernia, and prolonged QT interval who presents to the ED for evaluation of vomiting and palpations. The patient reports that for the last 4-5days she has been experiencing nausea and vomiting with accompanied lightheadedness and episodes ofsyncope. She elaborates stating that since 06/28/24 she has had an intermittent twisting chest painthat worsens with lightheadedness alongside an onset of a stabbing headache that radiates from her neck to posterior head on 06/29/24. She adds that due to the nausea she has not been able to keep anything down, referencing multiple episodes of emesis after intake with her last intake being yesterdaymorning. Patient reports that she has tried using pain medication, such as oxycodone, which have not provided relief. She endorses abdominal pain, body aches, chest pain, palpitations, and a history of elongated QT/C. She denies any diarrhea, tobacco use, chance of , or history of heart complications. Patient mentions that she previously had a herniated disc in her neck which produced similar headache symptoms. Independent Historian None Review of External Notes None Past Medical History Medical History and Problem List Anxiety Autonomic disorder Cachexia CKD, stage IV Gastroparesis IBS Opioid dependence BARBARA Anemia Chronic midline low back pain without sciatica Depression with suicidal ideation PTSD Gitelman disease Hypercalcemia Hypomagnesemia Inferior pubic ramus fracture, right, closed Prolonged QT interval SBO Ventral hernia without obstruction or gangrene Syncope Medications Magnesium 65 Fe Neurontin Mag-Ox Klor-Con Surgical History Appendectomy Exploratory laparotomy Diagnostic laparoscopy Esophagogastroduodenoscopy Esophagogastroduodenoscopy with biopsy Portacath placement Portacath removal due to infection IR Chest port placement Excise lesion axilla Lysis of adhesions PICC Placement IP Single Lume Physical Exam Patient Vitals for the past 24 hrs: BP Temp Temp src Pulse Resp SpO2 Height Weight 07/01/24 1900 119/80 98.2 ??F (36.8 ??C) Oral 76 18 100 % -- -- 07/01/24 1802 (!) 146/101 98 ??F (36.7 ??C) Oral -- 18 100 % -- -- 07/01/24 1608 (!) 137/94 -- -- 87 -- 99 % -- -- 07/01/24 1558 (!) 147/105 -- -- 82 17 97 % -- -- 07/01/24 1548 (!) 139/102 -- -- 87 -- 97 % -- -- 07/01/24 1126 (!) 126/100 97.2 ??F (36.2 ??C) -- 104 18 100 % 1.702 m (5' 7) 47.2 kg (104 lb) Physical Exam General: Alert, no acute distress; well appearing. HEENT: Moist mucous membranes. Conjunctiva normal. CV: RRR, no m/r/g, skin warm and well perfused Pulm: CTAB, no wheezes/ronchi/rales. No acute distress, breathing comfortably GI: Soft, mild epigastric tenderness, nondistended. No rebound or guarding. MSK: Moving all extremities. No focal areas of edema, erythema Skin: WWP, no rashes, no lower extremity edema, skin color normal, no diaphoresis Psych: Well-appearing, normal affect, regular speech Diagnostics Lab Results Labs Ordered and Resulted from Time of ED Arrival to Time of ED Departure BASIC METABOLIC PANEL - Abnormal Result Value Sodium 129 (*) Potassium 2.1 (*) Chloride 66 (*) Carbon Dioxide (CO2) 44 (*) Anion Gap 19 (*) Urea Nitrogen 58.2 (*) Creatinine 3.67 (*) GFR Estimate 16 (*) Calcium 14.3 (*) Glucose 104 (*) CBC WITH PLATELETS AND DIFFERENTIAL - Abnormal WBC Count 9.1 RBC Count 4.12 Hemoglobin 11.1 (*) Hematocrit 32.0 (*) MCV 78 MCH 26.9 MCHC 34.7 RDW 14.0 Platelet Count 531 (*) % Neutrophils 70 % Lymphocytes 20 % Monocytes 7 % Eosinophils 1 % Basophils 1 % Immature Granulocytes 0 NRBCs per 100 WBC 0 Absolute Neutrophils 6.4 Absolute Lymphocytes 1.8 Absolute Monocytes 0.6 Absolute Eosinophils 0.1 Absolute Basophils 0.1 Absolute Immature Granulocytes 0.0 Absolute NRBCs 0.0 MAGNESIUM - Abnormal Magnesium 2.8 (*) HEPATIC FUNCTION PANEL - Abnormal Protein Total 8.8 (*) Albumin 5.6 (*) Bilirubin Total 0.3 Alkaline Phosphatase 84 AST 18 ALT 9 Bilirubin Direct <0.20 IONIZED CALCIUM - Abnormal Calcium Ionized Whole Blood 5.6 (*) BASIC METABOLIC PANEL - Abnormal Sodium 133 (*) Potassium 2.7 (*) Chloride 79 (*) Carbon Dioxide (CO2) 38 (*) Anion Gap 16 (*) Urea Nitrogen 55.2 (*) Creatinine 3.37 (*) GFR Estimate 18 (*) Calcium 11.7 (*) Glucose 114 (*) HCG QUALITATIVE - Normal hCG Serum Qualitative Negative INFLUENZA A/B, RSV AND SARS-COV2 PCR - Normal Influenza A PCR Negative Influenza B PCR Negative RSV PCR Negative SARS CoV2 PCR Negative TROPONIN T, HIGH SENSITIVITY - Normal Troponin T, High Sensitivity <6 LIPASE - Normal Lipase 29 PARATHYROID HORMONE INTACT - Normal Parathyroid Hormone Intact 28 PTH RELATED PEPTIDE TEST VITAMIN D DEFICIENCY SCREENING ROUTINE UA WITH MICROSCOPIC REFLEX TO CULTURE FRACTIONAL EXCRETION OF SODIUM FRACTIONAL EXCRETION OF SODIUM Imaging CT Abdomen Pelvis w/o Contrast (Results Pending) EKG ECG results from 07/01/24 EKG 12 lead Value Systolic Blood Pressure Diastolic Blood Pressure Ventricular Rate 88 Atrial Rate 88 NH Interval 136 QRS Duration 90 QT 536 QTc 648 P [place] 70 R AXIS 84 T [place] 78 Interpretation ECG Sinus rhythm Left ventricular hypertrophy with repolarization abnormality ( Sokolow-Hernandez ) Marked ST abnormality, possible anterior subendocardial injury Prolonged QT Abnormal ECG When compared with ECG of 18-Jun-2024 11:14, Significant changes have occurred Unconfirmed report - interpretation of this ECG is computer generated - see medical record for final interpretation Confirmed by - EMERGENCY ROOM, PHYSICIAN ([id number]), managing editor NETTIE KIM ([id number]) on 07/01/2024 12:28:51PM Independent Interpretation None ED Course Medications Administered Medications LORazepam (ATIVAN) injection 0.5 mg (0.5 mg Intravenous $Given 07/01/24 1612) sodium chloride 0.9 % infusion ( Intravenous Rate/Dose Verify 07/01/242007) lidocaine 1 % 0.1-1 mL (has no administration in time range) lidocaine (LMX4) cream (has no administration in time range) sodium chloride (PF) 0.9% PF flush 3 mL (3 mLs Intracatheter $Given 07/01/24 1730) sodium chloride (PF) 0.9% PF flush 3 mL (has no administration in time range) senna-docusate (SENOKOT-S/PERICOLACE) 8.6-50 MG per tablet 1 tablet (has no administration in time range) Or senna-docusate (SENOKOT-S/PERICOLACE) 8.6-50 MG per tablet 2 tablet (has no administration in time range) calcium carbonate (TUMS) chewable tablet 1,000 mg (has no administration in time range) heparin ANTICOAGULANT injection 5,000 Units (5,000 Units Subcutaneous $Given 07/01/242008) acetaminophen (TYLENOL) tablet 975 mg (975 mg Oral $Given 07/01/241999) melatonin tablet 5 mg (has no administration in time range) gabapentin (NEURONTIN) capsule 400 mg (400 mg Oral $Given 07/01/242100) gabapentin (NEURONTIN) capsule 300 mg (has no administration in time range) methocarbamol (ROBAXIN) tablet 750 mg (750 mg Oral $Given 07/01/242008) multivitamin w/minerals (THERA-VIT-M) tablet 1 tablet (1 tablet Oral $Given 07/01/241958) potassium chloride deanne ER (KLOR-CON M20) CR tablet 40 mEq (40 mEq Oral $Given 07/01/241999) albuterol (PROVENTIL HFA/VENTOLIN HFA) inhaler (has no administration in time range) HYDROmorphone (DILAUDID) injection 0.2 mg (0.2 mg Intravenous $Given 07/01/241750) naloxone (NARCAN) injection 0.2 mg (has no administration in time range) Or naloxone (NARCAN) injection 0.4 mg (has no administration in time range) Or naloxone (NARCAN) injection 0.2 mg (has no administration in time range) Or naloxone (NARCAN) injection 0.4 mg (has no administration in time range) sodium chloride 0.9% BOLUS 1,000 mL (1,000 mLs Intravenous $New Bag 07/01/24 1605) potassium chloride (KLOR-CON) Packet 40 mEq (40 mEq Oral $Given 07/01/24 1604) dexAMETHasone PF (DECADRON) injection 4 mg (4 mg Intravenous $Given 07/01/24 1603) acetaminophen (TYLENOL) tablet 1,000 mg (1,000 mg Oral $Given 07/01/24 1603) potassium chloride 10 mEq in 100 mL sterile water infusion (10 mEq Intravenous $New Bag 07/01/24 1605) sodium chloride 0.9% BOLUS 500 mL (500 mLs Intravenous $New Bag 07/01/24 1728) potassium chloride deanne ER (KLOR-CON M20) CR tablet 20 mEq (20 mEq Oral $Given 07/01/242100) Procedures Procedures Discussion of Management Admitting Hospitalist, Dr. Locke Clinical Pharmacist, Ravin Arguello PharmD ED Course ED Course as of 07/01/242106e Jul 01, 2024 1422 I obtained history and examined the patient as noted above 1513 I spoke with Ravin Arguello PharmD Clinical Pharmacist for patient consult 1515 I updated the patient on plan of care. [address] Locke of the hospitalist team for admission Additional Documentation None Medical Decision Making / Diagnosis [facility] Diagnoses: None MIPS None MDM Lorraine Klein is a 34 year old female with history of Gettleman syndrome presenting to the emergency department for evaluation of intractable nausea/vomiting for the last 4-5 days. Please see above for details in HPI and exam. Screening EKG shows prolonged QT as well as U waves. No acute ischemic appearing changes and high-sensitivity troponin is normal. Overall lab studies remarkable for significant hypokalemia, hypercalcemia, hyponatremia/hypochloremia, BARBARA. Abdominal exam is largely benign and not consistent with acute or surgical abdomen. Patient was given saline bolus for fluid resuscitation. In consultation with the ER pharmacy, Decadron and as needed Ativan ordered for help withnausea relief given patient's prolonged QT. PO and IV potassium ordered. Suspect likely viral etiology for patient's GI symptoms. Discussed patient with hospitalist service who will admit the patient for ongoing monitoring and care. Disposition The patient was admitted to the hospital. Diagnosis ICD-10-CM 1. Intractable nausea and vomiting R11.2 2. Gitelman syndrome N15.8 3. Hypokalemia E87.6 4. Hyponatremia E87.1 5. Hypercalcemia E83.52 6. BARBARA (acute kidney injury) (H) N17.9 7. Headache, unspecified headache type R51.9 8. Prolonged Q-T interval on ECG R94.31 Discharge Medications New Prescriptions No medications on file Scribe Disclosure: Collins Lu, am serving as a scribe at 2:40 PM on 07/01/2024 to document services personally performed by Jesus Bobby MD based on my observations and the provider's statements to me. Jesus Bobby MD 07/01/242107 CLE SERVICE ATTENDANT * Laura eFng RN - 07/01/2024 11:29 AM CST Images from the original note were not included. Pt presents with multiple symptoms. Pt reports vomiting X2 days, chest palpitations, headache, lightheadedness, dizziness, muscle tremors. HX: Low potassium. 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 Triage Assessment (Adult) Row Name 07/01/24 1127 Triage Assessment Airway WDL WDL Respiratory WDL Respiratory WDL WDL Cardiac WDL Cardiac WDL X Palpitations Peripheral/Neurovascular WDL Peripheral Neurovascular WDL WDL Cognitive/Neuro/Behavioral WDL Cognitive/Neuro/Behavioral WDL WDL CLE SERVICE ATTENDANT documented in this encounter Miscellaneous Notes * Plan of Care - Wayne Barr RN - 07/03/2024 4:36 AM CST Shift Note [id number]: Pt AxO x4. Pt stated pain as 04/03. IV dilaudid given. PO dilaudid also available. Activity: Ind. Tele: SR w prolonged QTc. Respiratory: LS Clear, on RA. Protocol(s): Mg. recheck in AM. Nephrology, Psych consulted. Pertinent Tests/Labs: Potassium draw q6h . Last one was 3.1. Other: Continuous NS infusing @ 100 mL/hr. Bag replaced around 0400. Plan of Care: Potential discharge 07/03 pending potassium level. Goal Outcome Evaluation: Plan of Care Reviewed With: patient Overall Patient Progress: improvingOverall Patient Progress: improving Outcome Evaluation: Pt stable. Independent. Continuous NS infusing. IV dilaudid given. Problem: Adult Inpatient Plan of Care Goal: Plan of Care Review Description: The Plan of Care Review/Shift note should be completed every shift. The Outcome Evaluation is a brief statement about your assessment that the patient is improving, declining, or no change. This information will be displayed automatically on your shift note. Outcome: Progressing Flowsheets (Taken 07/03/2024 0435) Outcome Evaluation: Pt stable. Independent. Continuous NS infusing. IV dilaudid given. Plan of Care Reviewed With: patient Overall [...] Manage Fall Risk Recent Flowsheet Documentation Taken 07/03/2024405 by Wyane Barr RN Safety Promotion/Fall Prevention: assistive device/personal items within reach clutter free environment maintained lighting adjusted mobility aid in reach nonskid shoes/slippers when out of bed patient and family education room organization consistent safety round/check completed Intervention: Prevent Skin Injury Recent Flowsheet Documentation Taken 07/03/2024348 by Wayne Barr RN Body Position: position changed independently Intervention: Prevent and Manage VTE (Venous Thromboembolism) Risk Recent Flowsheet Documentation Taken 07/03/2024405 by Wayne Barr RN VTE Prevention/Management: SCDs on (sequential compression devices) Intervention: Prevent Infection Recent Flowsheet Documentation Taken 07/03/2024405 by Wayne Barr RN Infection Prevention: hand hygiene promoted personal protective equipment utilized rest/sleep promoted single patient room provided Goal: Optimal Comfort and Wellbeing Outcome: Progressing Intervention: Monitor Pain and Promote Comfort Recent Flowsheet Documentation Taken 07/03/2024348 by Wayne Barr RN Pain Management Interventions: medication (see MAR) Goal: Readiness for Transition of Care Outcome: Progressing Problem: Electrolyte Imbalance Goal: Electrolyte Balance Outcome: Progressing CLE SERVICE ATTENDANT * Care Plan - Linda Puente RN - 07/02/2024 5:34 PM CST [facility] ED Boarding Nurse Handoff Addendum Report: Date/time: 07/02/2024, 10:28 AM Activity Level: standby Fall Risk: Yes: activity supervised Active Infusions: Sodium Chloride 0.9% 150 mL/hr Current Meds Due: None Current care needs: None Oxygen requirements (liters/min and/or FiO2): None Respiratory status: Room air Vital signs (within last 30 minutes): Vitals: 07/01/24 1900 07/01/24 2232 07/02/24 0218 07/02/24 0733 BP: 119/80 128/84 (!) 130/91 (!) 130/96 BP Location: Right arm Right arm Right arm Right arm Patient Position: Supine Supine Supine Cuff Size: Adult Regular Adult Regular Adult Regular Pulse: 76 83 80 Resp: 18 20 16 16 Temp: 98.2 ??F (36.8 ??C) 98.2 ??F (36.8 ??C) 98 ??F (36.7 ??C) 97.8 ??F (36.6 ??C) TempSrc: Oral Oral Oral Oral SpO2: 100% 97% 98% 100% Weight: Height: BP (!) 130/96 (BP Location: Right arm) Pulse 80 Temp 97.8 ??F (36.6 ??C) (Oral) Resp 16 Ht 1.702 m (5' 7) Wt 47.2 kg (104 lb) SpO2 100% BMI 16.29 kg/m?? Focused assessment within last 30 minutes: Pt A&O X4, VSS on RA. Presented to ED w/ nausea and vomiting and diarrhea. NS running at 100 mL/hr. On tele. SBA to bathroom. K 2.4, provider aware. One time dose K given. PRN Dilaudid/Robaxin for pain management. PIV CDI. Nephrology/psych following. ED Boarding Nurse name: Isha Puente RN RECEIVING UNIT ED HANDOFF REVIEW Above ED Nurse Handoff Report was reviewed: Yes Reviewed by: Madelaine Milian RN on July 02, 2024 at 5:03 PM I Vocera called the ED to inform them the note was read: yes - update provided by isha Puente RN CLE SERVICE ATTENDANT CLE SERVICE ATTENDANT CLE SERVICE ATTENDANT CLE SERVICE ATTENDANT CLE SERVICE ATTENDANT CLE SERVICE ATTENDANT CLE SERVICE ATTENDANT * Care Plan - Linda Puente RN - 07/02/2024 11:04 AM CST Hospitalist Michel Dotson paged for K level of 2.4 this AM. New orders obtained, see MAR. Redraw Q6 hrs. CLE SERVICE ATTENDANT * Plan of Care - Teressa Cole RN - 07/01/2024 9:47 PM CST [facility] ED Boarding Nurse Handoff Addendum Report: Date/time: 07/01/2024, 9:47 PM Neuro: Alert and Oriented x4 Activity: are SBA with no assistive devices Telemetry Monitoring: Yes - ST depression with prolonged QTc Pain: complaining of 10/10 pain in their abdomen/neck. Tylenol, Dilaudid, and Atarax given for pain. Medicatons - Pt reported only pain medication to give any relief is IV dilaudid. (IV Dilaudid given at 2207, 0227, and 0630 Labs / Tests: Potassium 2.7- replaced with 60 of K+ LDA's: Peripheral Fluids: has Normal Saline 0.9% running at 150 mL per hour. Diet: Clear liquid Consults: Nephrology Plan of Care: Tele monitoring. Pain management. IVF. Vital signs (within last 30 minutes): Vitals: 07/01/24 1802 07/01/24 1900 07/01/24 2232 07/02/24 0218 BP: (!) 146/101 119/80 128/84 (!) 130/91 BP Location: Right arm Right arm Right arm Patient Position: Supine Supine Supine Cuff Size: Adult Regular Adult Regular Adult Regular Pulse: 76 83 80 Resp: 18 18 20 16 Temp: 98 ??F (36.7 ??C) 98.2 ??F (36.8 ??C) 98.2 ??F (36.8 ??C) 98 ??F (36.7 ??C) TempSrc: Oral Oral Oral Oral SpO2: 100% 100% 97% 98% Weight: Height: ED Boarding Nurse name: Teressa Cole RN CLE SERVICE ATTENDANT * Plan of Care - Vera Reynolds RN - 07/01/2024 6:46 PM CST Pt A&O. Pain managed with IV dilaudid. NS infusing. Tolerating clears, denies N/V. Transfers with Ax1. AUO. CLE SERVICE ATTENDANT * Pharmacy-Admission Medication History - Cale Giron RPH - 07/01/2024 5:36 PM CST Pharmacist Admission Medication History Admission medication history is complete. The information provided in this note is only as accurateas the sources available at the time of the update. Information Source(s): Patient via in-person Pertinent Information: home meds last taken - 2 days ago Changes made to TECHNICAL STAFF ENGINEER medication list: Added: None Deleted: None Changed: Multivitamin to include Iron Allergies reviewed with patient and updates made in EHR: no Medication History Completed By: Cale Giron RPH 07/01/2024 5:36 PM TECHNICAL STAFF ENGINEER Med List Medication Sig Last Dose/Taking albuterol (PROAIR HFA/PROVENTIL HFA/VENTOLIN HFA) 108 (90 Base) MCG/ACT inhaler Inhale 1-2 puffs into the lungs every 4 hours as needed for shortness of breath, wheezing or cough. Taking As Needed ferrous sulfate 325 (65 Fe) MG TBEC EC tablet Take 325 mg by mouth 3 times daily (with meals). Withfood or snack 06/29/2024 gabapentin (NEURONTIN) 100 MG capsule Take 100 mg by mouth at bedtime. with 300 mg capsule 06/29/2024 gabapentin (NEURONTIN) 300 MG capsule Take 300 mg by mouth 3 times daily. Am, Lunch, Bed-time 06/29/2024 hydrOXYzine HCl (ATARAX) 25 MG tablet Take 1-2 tablets (25-50 mg) by mouth every 6 hours as needed for other (adjuvant pain). Taking As Needed magnesium oxide (MAG-OX) 400 MG tablet Take 400 mg by mouth 3 times daily (with meals). 06/29/2024 methocarbamol (ROBAXIN) 750 MG tablet Take 750 mg by mouth 4 times daily as needed for muscle spasms. Taking As Needed Multiple Vitamins-Iron (ONE DAILY MULTIVITAMIN/IRON PO) Take 1 tablet by mouth daily. 06/29/2024 ondansetron (ZOFRAN) 4 MG tablet Take 4 mg by mouth every 8 hours as needed for nausea or vomiting.Taking As Needed potassium chloride deanne ER (KLOR-CON M20) 20 MEQ CR tablet Take 2 tablets (40 mEq) by mouth 3 timesdaily. 06/29/2024 senna-docusate (SENOKOT-S/PERICOLACE) 8.6-50 MG tablet Take 1 tablet by mouth 2 times daily as needed for constipation. Taking As Needed traMADol (ULTRAM) 50 MG tablet Take 50 mg by mouth 2 times daily as needed for severe pain. Taking As Needed CLE SERVICE ATTENDANT documented in this encounter Plan of Treatment Upcoming Encounters Date Type Department Care Team (Late st Contact Info) Description 07/09/2024 11:00 AM VEHICLE SERVICE ATTENDANT Virtual Visit [facility] [address] [address] [place] [address] [place], [place] [id number] [place] [address] [facility] [facility] [address] [place], [place] [id number] documented as of this encounter Procedures Procedure Name Priority Date/Time Associated Diagnosis Comments POTASSIUM Timed 07/03/2024 5:58 AM VEHICLE SERVICE ATTENDANT MAGNESIUM Routine 07/03/2024 5:58 AM VEHICLE SERVICE ATTENDANT IRON AND IRON BINDING CAPACITY Routine 07/03/2024 5:58 AM VEHICLE SERVICE ATTENDANT FERRITIN Routine 07/03/2024 5:58 AM VEHICLE SERVICE ATTENDANT BASIC METABOLIC PANEL Routine 07/03/2024 5:58 AM VEHICLE SERVICE ATTENDANT CBC WITH PLATELETS Routine 07/03/2024 5: 58 AM VEHICLE SERVICE ATTENDANT POTASSIUM Timed 07/02/2024 11:55 PM VEHICLE SERVICE ATTENDANT POTASSIUM STAT 07/02/2024 5:36 PM VEHICLE SERVICE ATTENDANT POTASSIUM STAT 07/02/2024 12:13 PM VEHICLE SERVICE ATTENDANT BICARBONATE URINE Add-On 07/02/2024 9:5 3 AM VEHICLE SERVICE ATTENDANT OSMOLALITY Add-On 07/02/2024 8:30 AM VEHICLE SERVICE ATTENDANT MAGNESIUM STAT 07/02/2024 8:30 AM VEHICLE SERVICE ATTENDANT BASIC METABOLIC PANEL STAT 07/02/2024 8:30 AM VEHICLE SERVICE ATTENDANT CBC WITH PLATELETS STAT 07/02/2024 8: 30 AM VEHICLE SERVICE ATTENDANT MAGNESIUM Add-On 07/01/2024 11:34 PM VEHICLE SERVICE ATTENDANT BASIC METABOLIC PANEL STAT 07/01/2024 11:34 PM VEHICLE SERVICE ATTENDANT CT ABDOMEN PELVIS W/O CONTRAST STAT 07/01/2024 9:17 PM VEHICLE SERVICE ATTENDANT FRACTIONAL EXCRETION OF SODIUM STAT 07/01/2024 9:07 PM VEHICLE SERVICE ATTENDANT ROUTINE UA WITH MICROSCOPIC REFLEX TO CULTURE STAT 07/01/2024 9:07 PM VEHICLE SERVICE ATTENDANT POTASSIUM RANDOM URINE Add-On 07/01/2024 9:07 PM VEHICLE SERVICE ATTENDANT OSMOLALITY, RANDOM URINE Add-On 07/01/2024 9:07 PM VEHICLE SERVICE ATTENDANT FRACTIONAL EXCRETION OF SODIUM STAT 07/01/2024 9:07 PM VEHICLE SERVICE ATTENDANT CHLORIDE RANDOM URINE STAT 07/01/2024 9:07 PM VEHICLE SERVICE ATTENDANT PTH RELATED PEPTIDE TEST STAT 07/01/2024 7:18 PM VEHICLE SERVICE ATTENDANT PHOSPHORUS Add-On 07/01/2024 7:18 PM VEHICLE SERVICE ATTENDANT PARATHYROID HORMONE INTACT STAT 07/01/2024 7:18 PM VEHICLE SERVICE ATTENDANT BASIC METABOLIC PANEL STAT 07/01/2024 7:18 PM VEHICLE SERVICE ATTENDANT IONIZED CALCIUM STAT 07/01/2024 3:35 PM VEHICLE SERVICE ATTENDANT EXTRA TUBE STAT 07/01/2024 2:14 PM VEHICLE SERVICE ATTENDANT EXTRA BLUE TOP TUBE STAT 07/01/2024 2 :14 PM VEHICLE SERVICE ATTENDANT CBC WITH PLATELETS AND DIFFERENTIAL STAT 07/01/2024 2:14 PM VEHICLE SERVICE ATTENDANT TROPONIN T, HIGH SENSITIVITY STAT 07/01/2024 2:14 PM VEHICLE SERVICE ATTENDANT CBC WITH PLATELETS & DIFFERENTIAL STAT 07/01/2024 2:14 PM VEHICLE SERVICE ATTENDANT VITAMIN D DEFICIENCY SCREENING Add-On 07/01/2024 2:14 PM VEHICLE SERVICE ATTENDANT MAGNESIUM STAT 07/01/2024 2:14 PM VEHICLE SERVICE ATTENDANT LIPASE STAT 07/01/2024 2:14 PM VEHICLE SERVICE ATTENDANT HEPATIC FUNCTION PANEL STAT 07/01/2024 2:14 PM VEHICLE SERVICE ATTENDANT HCG QUALITATIVE STAT 07/01/2024 2:14 PM VEHICLE SERVICE ATTENDANT BASIC METABOLIC PANEL STAT 07/01/2024 2:14 PM VEHICLE SERVICE ATTENDANT EKG 12-LEAD, TRACING ONLY STAT 07/01/2024 11:37 AM VEHICLE SERVICE ATTENDANT INFLUENZA A/B, RSV AND SARS-COV2 PCR STAT 07/01/2024 11:32 AM VEHICLE SERVICE ATTENDANT documented in this encounter Results * Magnesium (07/03/2024 5:58 AM VEHICLE SERVICE ATTENDANT) Magnesium 1.8 1.7 - 2.3 mg/dL 07/03/2024 6:51 AM VEHICLE SERVICE ATTENDANT LABORATORY Blood STRUCTURE OF RIGHT HAND / Unknown Venipuncture / Unknown 07/03/2024 5:58 AM VEHICLE SERVICE ATTENDANT 07/03/2024 6:16 AM VEHICLE SERVICE ATTENDANT us Michel Dotson DO LAB - BLOOD ORDERABLES Fi nal Result [facility] Acute Care Lab [address] Lab (1st floor, no room number) [place] [address], [facility] * Ferritin (07/03/2024 5:58 AM VEHICLE SERVICE ATTENDANT) Ferritin 28 6 - 175 ng/mL 07/03/2024 11:52 AM VEHICLE SERVICE ATTENDANT U LABORATORY Blood STRUCTURE OF RIGHT HAND / Unknown Venipuncture / Unknown 07/03/2024 5:58 AM VEHICLE SERVICE ATTENDANT 07/03/2024 7:43 AM VEHICLE SERVICE ATTENDANT us Mike Teran MD LAB - BLOOD ORDERABLES Final Result UU LABORATORY [facility] [address] [facility], [address] [place] [address], [facility] * Iron and iron binding capacity (07/03/2024 5:58 AM [facility]) Pathologist [facility] Iron 67 37 - 145 ug/dL 07/03/2024 6:51 AM [facility] Iron Binding Capacity 284 240 - 430 ug/dL 07/03/2024 6:51 AM [facility] Iron Sat Index 24 15 - 46 % 07/03/2024 6:51 AM [facility] Blood STRUCTURE OF RIGHT HAND / Unknown Venipuncture / Unknown 07/03/2024 5:58 AM VEHICLE SERVICE ATTENDANT 07/03/2024 6:16 AM [facility] us Mike Teran MD LAB - BLOOD ORDERABLES Final Result LABORATORY [facility] Acute Care Lab [address] [facility] Lab (1st floor, no room number) [place] [address] * (ABNORMAL) Basic metabolic panel (07/03/2024 5:58 AM [facility]) Pathologist [facility] Sodium 142 135 - 145 mmol/L 07/03/2024 6:55 AM [facility] Potassium 3.4 3.4 - 5.3 mmol/L 07/03/2024 6:55 AM [facility] Chloride 100 98 - 107 mmol/L 07/03/2024 6:55 AM [facility] Carbon Dioxide (CO2) 31(H) 22 - 29 mmol/L 07/03/2024 6:55 AM [facility] Anion Gap 11 7 - 15 mmol/L 07/03/2024 6:55 AM [facility] Urea Nitrogen 28.4(H) 6.0 - 20.0 mg/dL 07/03/2024 6:55 AM [facility] Creatinine 1.53(H) 0.51 - 0.95 mg/dL 07/03/2024 6:55 AM [facility] GFR Estimate 46(L) >60 mL/min/1.7 3m2 07/03/2024 6:55 AM [facility] Comment:eGFR calculated usin 2020 CKD-EPI equation. Calcium 9.1 8.8 - 10.4 mg/dL 07/03/2024 6:55 AM [facility] Comment:Reference intervals for this test were updated on 01/08/2024 to reflect our healthy population more accurately. There may be differences in the flagging of prior results with similar values performed with this method. Those prior results can be interpreted in the context of the updated reference intervals. Glucose 91 70 - 99 mg/dL 07/03/2024 6:55 AM VEHICLE SERVICE ATTENDANT RH LABORATORY Blood STRUCTURE OF RIGHT HAND / Unknown Venipuncture / Unknown 07/03/2024 5:58 AM VEHICLE SERVICE ATTENDANT 07/03/2024 6:16 AM VEHICLE SERVICE ATTENDANT us Michel Dotson DO LAB - BLOOD ORDERABLES Fi nal Result RH LABORATORY [facility] [address] [facility], no room number) [place] [address] * (ABNORMAL) CBC with platelets (07/03/2024 5:58 AM VEHICLE SERVICE ATTENDANT) WBC Count 6.8 4.0 - 11.0 10e3/uL 07/03/2024 6:22 AM VEHICLE SERVICE ATTENDANT RH LABORATORY RBC Count 2.70(L) 3.80 - 5.20 10e6/uL 07/03/2024 6:22 AM VEHICLE SERVICE ATTENDANT RH LABORATORY Hemoglobin 7.3(L) 11.7 - 15.7 g/dL 07/03/2024 6:22 AM VEHICLE SERVICE ATTENDANT RH LABORATORY Hematocrit 22.0(L) 35.0 - 47.0 % 07/03/2024 6:22 AM VEHICLE SERVICE ATTENDANT RH LABORATORY MCV 82 78 - 100 fL 07/03/2024 6:22 AM VEHICLE SERVICE ATTENDANT RH LABORATORY MCH 27.0 26.5 - 33.0 pg 07/03/2024 6:22 AM VEHICLE SERVICE ATTENDANT RH LABORATORY MCHC 33.2 31.5 - 36.5 g/dL 07/03/2024 6:22 AM VEHICLE SERVICE ATTENDANT RH LABORATORY RDW 15.0 10.0 - 15.0 % 07/03/2024 6:22 AM VEHICLE SERVICE ATTENDANT RH LABORATORY Platelet Count 282 150 - 450 10e3/uL 07/03/2024 6:22 AM VEHICLE SERVICE ATTENDANT RH LABORATORY Blood STRUCTURE OF RIGHT HAND / Unknown Venipuncture / Unknown 07/03/2024 5:58 AM VEHICLE SERVICE ATTENDANT 07/03/2024 6:16 AM VEHICLE SERVICE ATTENDANT Michel Dotson DO LAB - BLOOD ORDERABLES Fi nal Result [facility] [address] Lab (1st floor, no room number) [place] [phone] [place] [address] * Potassium (07/03/2024 5:58 AM VEHICLE SERVICE ATTENDANT) Potassium 3.4 3.4 - 5.3 mmol/L 07/03/2024 6:51 AM VEHICLE SERVICE ATTENDANT RH LABORATORY Blood STRUCTURE OF RIGHT HAND / Unknown Venipuncture / Unknown 07/03/2024 5:58 AM VEHICLE SERVICE ATTENDANT 07/03/2024 6:16 AM VEHICLE SERVICE ATTENDANT Michel Dotson DO LAB - BLOOD ORDERABLES Fi nal Result Performing Organization Address [facility]/ZIP Co de Phone Number [facility] Lab [address] Lab (1st floor, no room number) [place] [phone] [place] [address] * (ABNORMAL) Potassium (07/02/2024 11:55 PM VEHICLE SERVICE ATTENDANT) Potassium 3.1(L) 3.4 - 5.3 mmol/L 07/03/2024 12:37 AM VEHICLE SERVICE ATTENDANT LABORATORY Blood STRUCTURE OF RIGHT HAND / Unknown Venipuncture / Unknown 07/02/2024 11:55 PM VEHICLE SERVICE ATTENDANT 07/03/2024 12:18 AM VEHICLE SERVICE ATTENDANT Michel Dotson DO LAB - BLOOD ORDERABLES Fi nal Result [facility] Lab [address] Lab (1st floor, no room number) [address] * (ABNORMAL) Potassium (07/02/2024 5:36 PM VEHICLE SERVICE ATTENDANT) Potassium 3.3(L) 3.4 - 5.3 mmol/L 07/02/2024 6:01 PM VEHICLE SERVICE ATTENDANT RH LABORATORY Blood STRUCTURE OF RIGHT UPPER LIMB / Unknown Venipuncture / Unknown 07/02/2024 5:36 PM VEHICLE SERVICE ATTENDANT 07/02/2024 5:42 PM VEHICLE SERVICE ATTENDANT Michel Szymanski Mauri LAB - BLOOD ORDERABLES Fi nal Result LABORATORY [facility] Care Lab [address] [facility] Lab (1st floor, no room number) [place] [phone] [place] [address] * (ABNORMAL) Potassium (07/02/2024 12:13 PM VEHICLE SERVICE ATTENDANT) Potassium 2.9(L) 3.4 - 5.3 mmol/L 07/02/2024 1:03 PM VEHICLE SERVICE ATTENDANT LABORATORY Blood STRUCTURE OF RIGHT UPPER LIMB / Unknown Venipuncture / Unknown 07/02/2024 12:13 PM VEHICLE SERVICE ATTENDANT 07/02/2024 12:26 PM VEHICLE SERVICE ATTENDANT Result [facility] Michel Stephon Mauri TATE LAB - BLOOD ORDERABLES Fi nal Result LABORATORY [facility] Lab [address] [facility] Lab (1st floor, no room number) [address] * Bicarbonate urine (07/02/2024 9:53 AM VEHICLE SERVICE ATTENDANT) Bicarbonate Urine 11 mmol/L 07/03/2024 3:18 AM VEHICLE SERVICE ATTENDANT [facility] Comment: INTERPRETIVE INFORMATION: Bicarbonate (HCO3), Urine Reference Interval has not been defined for Bicarbonate, Urine. See Compliance Statement B: [email or web address] Performed At: [facility] ([facility]) [facility] [place] [address] Customer Service Technician: DO ESTEFANY IVEY Number: [id number] Urine MID-STREAM URINE SPECIMEN / Unknown Non-blood Collection / Unknown 07/02/2024 9:53 AM VEHICLE SERVICE ATTENDANT 07/02/2024 9:56 AM VEHICLE SERVICE ATTENDANT Mike Teran MD LAB - URINE ORDERABLES Final Result [facility] [address] [place] [address], [facility] [phone] * (ABNORMAL) Osmolality (07/02/2024 8:30 AM VEHICLE SERVICE ATTENDANT) Osmolality Blood 299(H) 275 - 295 mmol/kg 07/02/2024 1:25 PM VEHICLE SERVICE ATTENDANT UU LABORATORY Blood STRUCTURE OF RIGHT HAND / Unknown Venipuncture / Unknown 07/02/2024 8:30 AM VEHICLE SERVICE ATTENDANT 07/02/2024 8:45 AM VEHICLE SERVICE ATTENDANT Narrative [facility] LABORATORY - 07/02/2024 1:25 PM VEHICLE SERVICE ATTENDANT Greater than 385 mmol/kg relates to stupor in hyperglycemia Greater than 400 mmol/kg can relate to seizures Greater than 420 mmol/kg can be lethal Serum Osmalar Gap: Normal <10 Larger suggest unmeasured substances present in serum (ethanol, methanol, isopropanol, mannitol, ethylene glycol). iMke Teran MD LAB - BLOOD ORDERABLES Final Result LABORATORY [facility] [address] [facility], Room [address] [place] [address], [facility] * Magnesium (07/02/2024 8:30 AM VEHICLE SERVICE ATTENDANT) Pathologist [facility] Magnesium 2.2 1.7 - 2.3 mg/dL 07/02/2024 9:25 AM VEHICLE SERVICE ATTENDANT LABORATORY Blood STRUCTURE OF RIGHT HAND / Unknown Venipuncture / Unknown 07/02/2024 8:30 AM VEHICLE SERVICE ATTENDANT 07/02/2024 8:45 AM VEHICLE SERVICE ATTENDANT Nain Locke DO LAB - BLOOD ORDERABLES Final R esult LABORATORY [facility] Acute Care Lab [address] Lab (1st floor, no room number) [place] [address], [facility] * (ABNORMAL) CBC with platelets (07/02/2024 8:30 AM VEHICLE SERVICE ATTENDANT) WBC Count 7.9 4.0 - 11.0 10e3/uL 07/02/2024 8:49 AM VEHICLE SERVICE ATTENDANT LABORATORY RBC Count 3.05(L) 3.80 - 5.20 10e6/uL 07/02/2024 8:49 AM VEHICLE SERVICE ATTENDANT LABORATORY Hemoglobin 8.3(L) 11.7 - 15.7 g/dL 07/02/2024 8:49 AM VEHICLE SERVICE ATTENDANT LABORATORY Hematocrit 24.5(L) 35.0 - 47.0 % 07/02/2024 8:49 AM VEHICLE SERVICE ATTENDANT LABORATORY MCV 80 78 - 100 fL 07/02/2024 8:49 AM VEHICLE SERVICE ATTENDANT LABORATORY MCH 27.2 26.5 - 33.0 pg 07/02/2024 8:49 AM VEHICLE SERVICE ATTENDANT LABORATORY MCHC 33.9 31.5 - 36.5 g/dL 07/02/2024 8:49 AM VEHICLE SERVICE ATTENDANT LABORATORY RDW 14.5 10.0 - 15.0 % 07/02/2024 8:49 AM VEHICLE SERVICE ATTENDANT LABORATORY Platelet Count 346 150 - 450 10e3/uL 07/02/2024 8:49 AM [facility] Blood STRUCTURE OF RIGHT HAND / Unknown Venipuncture / Unknown 07/02/2024 8:30 AM VEHICLE SERVICE ATTENDANT 07/02/2024 8:45 AM VEHICLE SERVICE ATTENDANT us Nain Locke DO LAB - BLOOD ORDERABLES Final R esult LABORATORY [facility] Acute Care Lab [address] [facility] Lab (1st floor, no room number) [place] [address] * (ABNORMAL) Basic metabolic panel (07/02/2024 8:30 AM VEHICLE SERVICE ATTENDANT) Sodium 136 135 - 145 mmol/L 07/02/2024 9:31 AM VEHICLE SERVICE ATTENDANT LABORATORY Potassium 2.4(LL) 3.4 - 5.3 mmol/L 07/02/2024 9:31 AM VEHICLE SERVICE ATTENDANT LABORATORY Chloride 86(L) 98 - 107 mmol/L 07/02/2024 9:31 AM [facility] Carbon Dioxide (CO2) 37(H) 22 - 29 mmol/L 07/02/2024 9:31 AM [facility] Anion Gap 13 7 - 15 mmol/L 07/02/2024 9:31 AM [facility] Urea Nitrogen 48.1(H) 6.0 - 20.0 mg/dL 07/02/2024 9:31 AM [facility] Creatinine 2.36(H) 0.51 - 0.95 mg/dL 07/02/2024 9:31 AM [facility] GFR Estimate 27(L) >60 mL/min/1.7 3m2 07/02/2024 9:31 AM [facility] Comment:eGFR calculated usca 2020 CKD-EPI equation. Calcium 10.7(H) 8.8 - 10.4 mg/dL 07/02/2024 9:31 AM [facility] Comment:Reference intervals for this test were updated on 01/08/2024 to reflect our healthy population more accurately. There may be differences in the flagging of prior results with similar values performed with this method. Those prior results can be interpreted in the context of the updated reference intervals. Glucose 84 70 - 99 mg/dL 07/02/2024 9:31 AM VEHICLE SERVICE ATTENDANT LABORATORY Blood STRUCTURE OF RIGHT HAND / Unknown Venipuncture / Unknown 07/02/2024 8:30 AM VEHICLE SERVICE ATTENDANT 07/02/2024 8:45 AM VEHICLE SERVICE ATTENDANT us Nain Locke DO LAB - BLOOD ORDERABLES Final R esult Performing Organization Address City/[facility] Co de Phone Number LABORATORY [facility] Acute Care Lab [address] Lab (1st floor, no room number) [place] [address] * (ABNORMAL) Magnesium (07/01/2024 11:34 PM VEHICLE SERVICE ATTENDANT) Magnesium 2.5(H) 1.7 - 2.3 mg/dL 07/02/2024 12:31 AM VEHICLE SERVICE ATTENDANT LABORATORY Blood STRUCTURE OF RIGHT HAND / Unknown Venipuncture / Unknown 07/01/2024 11:34 PM VEHICLE SERVICE ATTENDANT 07/01/2024 11:41 PM VEHICLE SERVICE ATTENDANT Rufina Cha MD LAB - BLOOD ORDERABLES Final Re sult Performing Organization Address City/State/[facility] Co de Phone Number RH LABORATORY [facility] Acute Care Lab [address] [facility] Lab (1st floor, no room number) [place] [address], [facility] * (ABNORMAL) Basic metabolic panel (07/01/2024 11:34 PM VEHICLE SERVICE ATTENDANT) Sodium 134(L) 135 - 145 mmol/L 07/02/2024 12:10 AM [facility] Potassium 2.5(LL) 3.4 - 5.3 mmol/L 07/02/2024 12:10 AM [facility] Chloride 80(L) 98 - 107 mmol/L 07/02/2024 12:10 AM [facility] Carbon Dioxide (CO2) 37(H) 22 - 29 mmol/L 07/02/2024 12:10 AM [facility] Anion Gap 17(H) 7 - 15 mmol/L 07/02/2024 12:10 AM [facility] Urea Nitrogen 52.7(H) 6.0 - 20.0 mg/dL 07/02/2024 12:10 AM [facility] Creatinine 3.12(H) 0.51 - 0.95 mg/dL 07/02/2024 12:10 AM [facility] GFR Estimate 19(L) >60 mL/min/1.7 3m2 07/02/2024 12:10 AM [facility] Comment:eGFR calculated usin g 2020 CKD-EPI equation. Calcium 11.6(H) 8.8 - 10.4 mg/dL 07/02/2024 12:10 AM [facility] Comment:Reference intervals for this test were updated on 01/08/2024 to reflect our healthy population more accurately. There may be differences in the flagging of prior results with similar values performed with this method. Those prior results can be interpreted in the context of the updated reference intervals. Glucose 102(H) 70 - 99 mg/dL 07/02/2024 12:10 AM [facility] Blood STRUCTURE OF RIGHT HAND / Unknown Venipuncture / Unknown 07/01/2024 11:34 PM VEHICLE SERVICE ATTENDANT 07/01/2024 11:41 PM VEHICLE SERVICE ATTENDANT Nain Locke DO LAB - BLOOD ORDERABLES Final R esult [facility] Acute Care Lab [address] [facility] Lab (1st floor, no room number) [place] [address], [facility] * CT Abdomen Pelvis w/o Contrast (07/01/2024 9:17 PM VEHICLE SERVICE ATTENDANT) Anatomical Region Laterality Modality Abdomen/Pelvis, SUBRAD CT LUDA DY, UMP CT ABDOMEN PELVIS, RAD CT Computed Tomography 07/01/2024 9:17 PM VEHICLE SERVICE ATTENDANT Impressions 07/01/2024 10:02 PM VEHICLE SERVICE ATTENDANT IMPRESSION: 1. No acute findings or inflammatory changes in the abdomen or pelvis. No bowel obstruction. 2. Subacute right inferior pubic ramus fracture. Narrative 07/01/2024 10:02 PM VEHICLE SERVICE ATTENDANT EXAM: CT ABDOMEN PELVIS W/O CONTRAST LOCATION: [facility] DATE: 07/01/2024 INDICATION: Abdominal pain, nausea, [...] EXAM: CT ABDOMEN PELVIS W/O CONTRAST LOCATION: [facility] DATE: 07/01/2024 INDICATION: Abdominal pain, nausea, [...] inferior pubic ramus fracture. Nain Locke DO IMG CT ORDERABLES Final Result * Osmolality urine (07/01/2024 9:07 PM VEHICLE SERVICE ATTENDANT) Osmolality Urine 311 100 - 1,200 mmol/kg 07/02/2024 11:01 AM VEHICLE SERVICE ATTENDANT [facility] LABORATORY Urine MID-STREAM URINE SPECIMEN / Unknown Non-blood Collection / Unknown 07/01/2024 9:07 PM VEHICLE SERVICE ATTENDANT 07/01/2024 9:11 PM VEHICLE SERVICE ATTENDANT Narrative [facility] LABORATORY - 07/02/2024 11:01 AM VEHICLE SERVICE ATTENDANT Reference Ranges depend on patient's hydration status and renal function. Neonates: 75-300 mmol/kg 2 years and older, random specimens: 100-1200 mmol/kg; Greater than 850 mmol/kg after 12 hour fluid restriction Urine/serum osmolality ratio: 2 years and older: 1.0-3.0; 3.0-4.7 after 12 hour fluid restriction Mike Teran MD LAB - URINE ORDERABLES Final Result Performing Organization Address [facility] Co de Phone Number LABORATORY [facility] Core Lab [address] [facility], [address] [phone] * Potassium random urine (07/01/2024 9:07 PM VEHICLE SERVICE ATTENDANT) Potassium Urine 43.8 mmol/L 11:52 AM VEHICLE SERVICE ATTENDANT [facility] LABORATORY Comment:The reference ranges have not been established in urine potassium. The results should be integrated into the clinical context for interpretation. Urine MID-STREAM URINE SPECIMEN / Unknown Non-blood Collection / Unknown 07/01/2024 9:07 PM VEHICLE SERVICE ATTENDANT 07/01/2024 9:11 PM VEHICLE SERVICE ATTENDANT Mike Teran MD LAB - URINE ORDERABLES Final Result Performing Organization Address [facility] Co de Phone Number U LABORATORY [facility] Core Lab [address] [facility], Room [address] [phone] * Chloride random urine (07/01/2024 9:07 PM VEHICLE SERVICE ATTENDANT) Chloride Urine mmol/L <20 mmol/L 07/02/2024 11:34 AM VEHICLE SERVICE ATTENDANT U LABORATORY Comment:The reference ranges have not been established in urine chloride. The results should be integrated into the clinical context for interpretation. Urine MID-STREAM URINE SPECIMEN / Unknown Non-blood Collection / Unknown 07/01/2024 9:07 PM VEHICLE SERVICE ATTENDANT 07/01/2024 9:11 PM VEHICLE SERVICE ATTENDANT us Mike Teran MD LAB - URINE ORDERABLES Final Result LABORATORY [facility] [address] [facility], [address] [phone] * Fractional Excretion of Sodium (07/01/2024 9:07 PM VEHICLE SERVICE ATTENDANT) Creatinine Urine mg/dL 86.1 mg/dL 07/01/2024 9:36 PM VEHICLE SERVICE ATTENDANT LABORATORY Sodium Urine mmol/L 22 mmol/L 07/01/2024 9:36 PM VEHICLE SERVICE ATTENDANT LABORATORY %FENA 0.6 % 07/01/2024 9:36 PM VEHICLE SERVICE ATTENDANT LABORATORY Comment: Adult: <1 percent Indicates prerenal azotemia >3 percent Suggests acute tubular necrosis Neonates: <2.5 percent Suggest prerenal azotemia >2.5 percent Suggest acute tubular necrosis Urine MID-STREAM URINE SPECIMEN / Unknown Non-blood Collection / Unknown 07/01/2024 9:07 PM VEHICLE SERVICE ATTENDANT 07/01/2024 9:11 PM VEHICLE SERVICE ATTENDANT us Nain Locke DO LAB - URINE ORDERABLES Final R esult LABORATORY [facility] Acute Care Lab [address] Lab (1st floor, no room number) [place] [address], [place] * (ABNORMAL) UA with Microscopic reflex to Culture (07/01/2024 9:07 PM VEHICLE SERVICE ATTENDANT) Color Urine Straw Colorless, Straw, Light Yellow, Yellow 07/01/2024 9:19 PM VEHICLE SERVICE ATTENDANT LABORATORY Appearance Urine Clear Clear 07/01/19 9:19 PM VEHICLE SERVICE ATTENDANT LABORATORY Glucose Urine Negative Negative mg/dL 07/01/2024 9:19 PM VEHICLE SERVICE ATTENDANT LABORATORY Bilirubin Urine Negative Negative 9:19 PM VEHICLE SERVICE ATTENDANT LABORATORY Ketones Urine Negative Negative mg/dL 07/01/2024 9:19 PM VEHICLE SERVICE ATTENDANT LABORATORY Specific [place] Urine 1.016 1.003 - 1.035 07/01/2024 9:19 PM VEHICLE SERVICE ATTENDANT LABORATORY Blood Urine Negative Negative 07/01/2024 9:19 PM VEHICLE SERVICE ATTENDANT LABORATORY pH Urine 6.5 5.0 - 7.0 07/01/2024 9:19 PM VEHICLE SERVICE ATTENDANT LABORATORY Protein Albumin Urine 30(A) Negative mg/dL 07/01/2024 9:19 PM VEHICLE SERVICE ATTENDANT LABORATORY Urobilinogen Urine Normal Normal, 2.0 mg/dL 07/01/2024 9:19 PM VEHICLE SERVICE ATTENDANT LABORATORY Nitrite Urine Negative Negative 07/01/2024 9:19 PM VEHICLE SERVICE ATTENDANT LABORATORY Leukocyte Esterase Urine Negative Negative 07/01/2024 9:19 PM VEHICLE SERVICE ATTENDANT LABORATORY Mucus Urine Present(A) None Seen /LPF 07/01/2024 9:19 PM VEHICLE SERVICE ATTENDANT LABORATORY RBC Urine 1 <=2 /HPF 07/01/2024 9:19 PM VEHICLE SERVICE ATTENDANT LABORATORY WBC Urine 1 <=5 /HPF 07/01/2024 9:19 PM VEHICLE SERVICE ATTENDANT LABORATORY Squamous Epithelials Urine 1 <=1 /HPF 07/01/2024 9:19 PM VEHICLE SERVICE ATTENDANT LABORATORY Urine MID-STREAM URINE SPECIMEN / Unknown Non-blood Collection / Unknown 07/01/2024 9:07 PM VEHICLE SERVICE ATTENDANT 07/01/2024 9:11 PM VEHICLE SERVICE ATTENDANT Narrative [facility] LABORATORY - 07/01/2024 9:19 PM VEHICLE SERVICE ATTENDANT Urine Culture not indicated us Nain Locke DO LAB - URINE ORDERABLES Final R esult LABORATORY [facility] Acute Care Lab [address] Lab (1st floor, no room number) [place] [address], [place] * Phosphorus (07/01/2024 7:18 PM VEHICLE SERVICE ATTENDANT) Pathologist [facility] Phosphorus 3.3 2.5 - 4.5 mg/dL 07/01/2024 9:41 PM VEHICLE SERVICE ATTENDANT LABORATORY Blood STRUCTURE OF RIGHT UPPER LIMB / Unknown Venipuncture / Unknown 07/01/2024 7:18 PM VEHICLE SERVICE ATTENDANT 07/01/2024 7:27 PM VEHICLE SERVICE ATTENDANT Nain Locke LAB - BLOOD ORDERABLES Final R esult LABORATORY [facility] Acute Care Lab [address] [facility] Lab (1st floor, no room number) [place] [address] * PTH Related Peptide Test (07/01/2024 7:18 PM VEHICLE SERVICE ATTENDANT) [facility] Parathyroid Hormone-Related Peptide (PTHRP) 1.6 < or = 4.2 pmol/L 07/07/2024 2:55 PM VEHICLE SERVICE ATTENDANT [facility] Comment: ADDITIONAL INFORMATION This test was developed and its performance characteristics determined by [facility] in a manner consistent with CLIA requirements. This test has not been cleared or approved by the U.S. Food and Drug Administration. Test Performed by: [facility] [address] [place] [address] Database Design Analyst: Alvaro Renner Ph.D.; CLIA# [id number] Blood STRUCTURE OF RIGHT UPPER LIMB / Unknown Venipuncture / Unknown 07/01/2024 7:18 PM VEHICLE SERVICE ATTENDANT 07/01/2024 7:27 PM VEHICLE SERVICE ATTENDANT Nain Locke DO LAB - BLOOD ORDERABLES Final R esult [facility] [address] [place], [place] [address] [phone] * Parathyroid Hormone Intact (07/01/2024 7:18 PM VEHICLE SERVICE ATTENDANT) Parathyroid Hormone Intact 28 15 - 65 pg/mL 07/01/2024 7:51 PM [facility] Blood STRUCTURE OF RIGHT UPPER LIMB / Unknown Venipuncture / Unknown 07/01/2024 7:18 PM VEHICLE SERVICE ATTENDANT 07/01/2024 7:27 PM VEHICLE SERVICE ATTENDANT Narrative LABORATORY - 07/01/2024 7:51 PM VEHICLE SERVICE ATTENDANT This result was obtained with the [employer] PTH STAT assay. This reference range differs from PTH assays used in other [facility] laboratories. Nain Locke DO LAB - BLOOD ORDERABLES Final R esult LABORATORY [facility] Acute Care Lab [address] [facility] Lab (1st floor, no room number) [place] [address] * (ABNORMAL) Basic metabolic panel (07/01/2024 7:18 PM VEHICLE SERVICE ATTENDANT) Pathologist [facility] Sodium 133(L) 135 - 145 mmol/L 07/01/2024 7:55 PM [facility] Potassium 2.7(L) 3.4 - 5.3 mmol/L 07/01/2024 7:55 PM [facility] Chloride 79(L) 98 - 107 mmol/L 07/01/2024 7:55 PM [facility] Carbon Dioxide (CO2) 38(H) 22 - 29 mmol/L 07/01/2024 7:55 PM [facility] [facility] Anion Gap 16(H) 7 - 15 mmol/L 07/01/2024 7:55 PM [facility] Urea Nitrogen 55.2(H) 6.0 - 20.0 mg/dL 07/01/2024 7:55 PM [facility] Creatinine 3.37(H) 0.51 - 0.95 mg/dL 07/01/2024 7:55 PM [facility] GFR Estimate 18(L) >60 mL/min/1.7 3m2 07/01/2024 7:55 PM [facility] Comment:eGFR calculated usin 2020 CKD-EPI equation. Calcium 11.7(H) 8.8 - 10.4 mg/dL 07/01/2024 7:55 PM [facility] Comment:Reference intervals for this test were updated on 01/08/2024 to reflect our healthy population more accurately. There may be differences in the flagging of prior results with similar values performed with this method. Those prior results can be interpreted in the context of the updated reference intervals. Glucose 114(H) 70 - 99 mg/dL 07/01/2024 7:55 PM [facility] Blood STRUCTURE OF RIGHT UPPER LIMB / Unknown Venipuncture / Unknown 07/01/2024 7:18 PM VEHICLE SERVICE ATTENDANT 07/01/2024 7:27 PM VEHICLE SERVICE ATTENDANT Nain Locke DO LAB - BLOOD ORDERABLES Final R esult LABORATORY [facility] [address] [facility] Lab (1st floor, no room number) [place] [id number] * (ABNORMAL) Ionized Calcium (07/01/2024 3:35 PM VEHICLE SERVICE ATTENDANT) Calcium Ionized Whole Blood 5.6(H) 4.4 - 5.2 mg/dL 07/01/2024 3:45 PM VEHICLE SERVICE ATTENDANT [facility]ATORY Blood VENOUS LINE / Unknown Venipuncture / Unknown 07/01/2024 3:35 PM VEHICLE SERVICE ATTENDANT 07/01/2024 3:42 PM VEHICLE SERVICE ATTENDANT Jesus Bobby MD LAB - BLOOD ORDERABLES F inal Result LABORATORY [facility] [address] [facility], no room number[facility] [place] [phone] * Vitamin D Deficiency (07/01/2024 2:14 PM VEHICLE SERVICE ATTENDANT) Vitamin D, Total (25-Hydroxy) 20 20 - 50 ng/mL 07/02/2024 4:14 AM VEHICLE SERVICE ATTENDANT [facility] Comment:optimum levels Blood STRUCTURE OF RIGHT UPPER LIMB / Unknown Venipuncture / Unknown 07/01/2024 2:14 PM VEHICLE SERVICE ATTENDANT 07/01/2024 2:20 PM VEHICLE SERVICE ATTENDANT Narrative [facility] - 07/02/2024 4:14 AM VEHICLE SERVICE ATTENDANT Season, race, dietary intake, and treatment affect the concentration of 07-rjhlgvh-Pcurzlh D. Values may decrease during winter months and increase during summer months. Vitamin D determination is routinely performed by an immunoassay specific for 25 hydroxyvitamin D3. If an individual is on vitamin D2(ergocalciferol) supplementation, please specify 25 OH vitamin D2 and D3 level determination by LCMSMS test VITD23. Nain Locke DO LAB - BLOOD ORDERABLES Final R esult [facility] [address] [facility] [place] [address] * Lipase (07/01/2024 2:14 PM VEHICLE SERVICE ATTENDANT) Lipase 29 13 - 60 U/L 07/01/2024 2:58 PM VEHICLE SERVICE ATTENDANT [facility] Blood STRUCTURE OF RIGHT UPPER LIMB / Unknown Venipuncture / Unknown 07/01/2024 2:14 PM VEHICLE SERVICE ATTENDANT 07/01/2024 2:20 PM VEHICLE SERVICE ATTENDANT Jesus Bobby MD LAB - BLOOD ORDERABLES F inal Result LABORATORY [facility] Lab [address] [facility] Lab (1st floor, no room number) [place] [address] * (ABNORMAL) Hepatic panel (07/01/2024 2:14 PM VEHICLE SERVICE ATTENDANT) Protein Total 8.8(H) 6.4 - 8.3 g/dL 07/01/2024 2:58 PM VEHICLE SERVICE ATTENDANT [facility] Albumin 5.6(H) 3.5 - 5.2 g/dL 07/01/2024 2:58 PM VEHICLE SERVICE ATTENDANT [facility] Bilirubin Total 0.3 <=1.2 mg/dL 07/01/2024 2:58 PM VEHICLE SERVICE ATTENDANT [facility] Alkaline Phosphatase 84 40 - 150 U/L 07/01/2024 2:58 PM VEHICLE SERVICE ATTENDANT [facility] AST 18 0 - 45 U/L 07/01/2024 2:58 PM VEHICLE SERVICE ATTENDANT [facility] ALT 9 0 - 50 U/L 07/01/2024 2:58 PM VEHICLE SERVICE ATTENDANT [facility] Bilirubin Direct <0.20 0.00 - 0.30 mg/dL 07/01/2024 2:58 PM VEHICLE SERVICE ATTENDANT [facility] Blood STRUCTURE OF RIGHT UPPER LIMB / Unknown Venipuncture / Unknown 07/01/2024 2:14 PM VEHICLE SERVICE ATTENDANT 07/01/2024 2:20 PM VEHICLE SERVICE ATTENDANT Jesus Bobby MD LAB - BLOOD ORDERABLES F inal Result Performing Organization Address City/[facility]/ZIP Co de Phone Number [facility] [address] Lab (1st floor, no room number) [place] [address], [facility] * Troponin T, High Sensitivity (07/01/2024 2:14 PM VEHICLE SERVICE ATTENDANT) [facility] Troponin T, High Sensitivity <6 <=14 ng/L 07/01/2024 2:45 PM [facility]HICLE SERVICE ATTEND[facility] Comment: Either a High Sensitivity Troponin [...] Unknown Venipuncture / Unknown 07/01/2024 2:14 PM VEHICLE SERVICE ATTENDANT 07/01/2024 2:20 PM VEHICLE SERVICE ATTENDANT Jesus Bobby MD LAB - BLOOD ORDERABLES F inal Result [facility] Acute Care Lab [address] Lab (1st floor, no room number) [place] [address], [facility] * (ABNORMAL) Magnesium (07/01/2024 2:14 PM VEHICLE SERVICE ATTENDANT) Magnesium 2.8(H) 1.7 - 2.3 mg/dL 07/01/2024 2:45 PM VEHICLE SERVICE ATTENDANT [facility] Blood STRUCTURE OF RIGHT UPPER LIMB / Unknown Venipuncture / Unknown 07/01/2024 2:14 PM VEHICLE SERVICE ATTENDANT 07/01/2024 2:20 PM VEHICLE SERVICE ATTENDANT Narrative [facility] - 07/01/2024 2:45 PM VEHICLE SERVICE ATTENDANT Jesus Bobby MD LAB - BLOOD ORDERABLES F inal Result LABORATORY [facility] Lab [address] [facility] Lab (1st floor, no room number) [place] [address] * Extra Blue Top Tube (07/01/2024 2:14 PM VEHICLE SERVICE ATTENDANT) Hold Specimen JIC 07/01/2024 3:31 PM VEHICLE SERVICE ATTENDANT LABORATORY Blood STRUCTURE OF RIGHT UPPER LIMB / Unknown Venipuncture / Unknown 07/01/2024 2:14 PM VEHICLE SERVICE ATTENDANT 07/01/2024 2:20 PM VEHICLE SERVICE ATTENDANT Jesus Bobby MD LAB - BLOOD ORDERABLES F inal Result LABORATORY [facility] Lab [address] Lab (1st floor, no room number) [place] [phone] * (ABNORMAL) CBC with platelets and differential (07/01/2024 2:14 PM VEHICLE SERVICE ATTENDANT) WBC Count 9.1 4.0 - 11.0 10e3/uL 07/01/2024 2:23 PM VEHICLE SERVICE ATTENDANT [facility] RBC Count 4.12 3.80 - 5.20 10e6/uL 07/01/2024 2:23 PM VEHICLE SERVICE ATTENDANT [facility] Hemoglobin 11.1(L) 11.7 - 15.7 g/dL 07/01/2024 2:23 PM VEHICLE SERVICE ATTENDANT [facility] Hematocrit 32.0(L) 35.0 - 47.0 % 07/01/2024 2:23 PM VEHICLE SERVICE ATTENDANT [facility] MCV 78 78 - 100 fL 07/01/2024 2:23 PM VEHICLE SERVICE ATTENDANT [facility] MCH 26.9 26.5 - 33.0 pg 07/01/2024 2:23 PM VEHICLE SERVICE ATTENDANT [facility] MCHC 34.7 31.5 - 36.5 g/dL 07/01/2024 2:23 PM VEHICLE SERVICE ATTENDANT [facility] RDW 14.0 10.0 - 15.0 % 07/01/2024 2:23 PM VEHICLE SERVICE ATTENDANT [facility] Platelet Count 531(H) 150 - 450 10e3/uL 07/01/2024 2:23 PM VEHICLE SERVICE ATTENDANT [facility] % Neutrophils 70 % 07/01/2024 2:23 PM VEHICLE SERVICE ATTENDANT [facility] % Lymphocytes 20 % 07/01/2024 2:23 PM VEHICLE SERVICE ATTENDANT [facility] % Monocytes 7 % 07/01/2024 2:23 PM VEHICLE SERVICE ATTENDANT [facility] % Eosinophils 1 % 07/01/2024 2:23 PM VEHICLE SERVICE ATTENDANT [facility] % Basophils 1 % 07/01/2024 2:23 PM VEHICLE SERVICE ATTENDANT [facility] % Immature Granulocytes 0 % 07/01/2024 2:23 PM VEHICLE SERVICE ATTENDANT [facility] NRBCs per 100 WBC 0 <1 /100 025 2:23 PM VEHICLE SERVICE ATTENDANT [facility] Absolute Neutrophils 6.4 1.6 - 8.3 10e3/uL 07/01/2024 2:23 PM VEHICLE SERVICE ATTENDANT [facility] Absolute Lymphocytes 1.8 0.8 - 5.3 10e3/uL 07/01/2024 2:23 PM VEHICLE SERVICE ATTENDANT [facility] Absolute Monocytes 0.6 0.0 - 1.3 10e3/uL 07/01/2024 2:23 PM VEHICLE SERVICE ATTENDANT [facility] Absolute Eosinophils 0.1 0.0 - 0.7 10e3/uL 07/01/2024 2:23 PM VEHICLE SERVICE ATTENDANT [facility] Absolute Basophils 0.1 0.0 - 0.2 10e3/uL 07/01/2024 2:23 PM VEHICLE SERVICE ATTENDANT [facility] Absolute Immature Granulocytes 0.0 <=0.4 10e3/uL 07/01/2024 2:23 PM VEHICLE SERVICE ATTENDANT [facility] Absolute NRBCs 0.0 10e3/uL 07/01/2024 2:23 PM VEHICLE SERVICE ATTENDANT [facility] Blood STRUCTURE OF RIGHT UPPER LIMB / Unknown Venipuncture / Unknown 07/01/2024 2:14 PM VEHICLE SERVICE ATTENDANT 07/01/2024 2:20 PM VEHICLE SERVICE ATTENDANT Jesus Bobby MD LAB - BLOOD ORDERABLES F inal Result Performing Organization Address City/[facility]/ZIP Co de Phone Number [facility] [address] Lab (1st floor, no room number) [place] [address] * HCG QUALitative (blood) (07/01/2024 2:14 PM VEHICLE SERVICE ATTENDANT) Pathologist [facility] hCG Serum Qualitative Negative Negative RUKHSANA 07/01/2024 2:50 PM VEHICLE SERVICE ATTENDANT [facility]ATORY Comment:This test is for scr eening purposes. Results should be interpreted along with the clinical picture. Confirmation testing is available if warranted by ordering [id number], HCG Quantitative . Blood STRUCTURE OF RIGHT UPPER LIMB / Unknown Venipuncture / Unknown 07/01/2024 2:14 PM VEHICLE SERVICE ATTENDANT 07/01/2024 2:20 PM VEHICLE SERVICE ATTENDANT Jesus Bobby MD LAB - BLOOD ORDERABLES F inal Result Performing Organization Address [facility] Co de Phone Number [facility] [address] Lab (1st floor, no room number) [place] [address] * (ABNORMAL) Basic metabolic panel (BMP) (07/01/2024 2:14 PM VEHICLE SERVICE ATTENDANT) Pathologist [facility] Sodium 129(L) 135 - 145 mmol/L 07/01/2024 3:00 PM [facility] Potassium 2.1(LL) 3.4 - 5.3 mmol/L 07/01/2024 3:00 PM [facility] Chloride 66(L) 98 - 107 mmol/L 07/01/2024 3:00 PM [facility] Carbon Dioxide (CO2) 44(H) 22 - 29 mmol/L 07/01/2024 3:00 PM [facility] Anion Gap 19(H) 7 - 15 mmol/L 07/01/2024 3:00 PM [facility] Urea Nitrogen 58.2(H) 6.0 - 20.0 mg/dL 07/01/2024 3:00 PM [facility] Creatinine 3.67(H) 0.51 - 0.95 mg/dL 07/01/2024 3:00 PM VEHICLE SERVICE ATTENDANT [facility] GFR Estimate 16(L) >60 mL/min/1. 73m2 07/01/2024 3:00 PM VEHICLE SERVICE ATTENDANT [facility] Comment:eGFR calculated usin 2020 CKD-EPI equation. Calcium 14.3(HH) 8.8 - 10.4 mg/dL 07/01/2024 3:00 PM VEHICLE SERVICE ATTENDANT [facility] Comment:Reference intervals for this test were updated on 01/08/2024 to reflect our healthy population more accurately. There may be differences in the flagging of prior results with similar values performed with this method. Those prior results can be interpreted in the context of the updated reference intervals. Glucose 104(H) 70 - 99 mg/dL 07/01/2024 3:00 PM VEHICLE SERVICE ATTENDANT [facility] Blood STRUCTURE OF RIGHT UPPER LIMB / Unknown Venipuncture / Unknown 07/01/2024 2:14 PM VEHICLE SERVICE ATTENDANT 07/01/2024 2:20 PM VEHICLE SERVICE ATTENDANT Jesus Bobby MD LAB - BLOOD ORDERABLES F inal Result LABORATORY [facility] Lab [address] [facility] Lab (1st floor, no room number) [place] [address] * EKG 12 lead (07/01/2024 11:37 AM VEHICLE SERVICE ATTENDANT) Systolic Blood Pressure mmHg RADIOLOGY RESULTS Diastolic Blood Pressure mmHg RADIOLOGY RESULTS Ventricular Rate 88 BPM RAD IOLOGY RESULTS Atrial Rate 88 BPM RADIOLOG Y RESULTS [place] Interval 136 ms RADIOLOG Y RESULTS QRS Duration 90 ms RADIOLO GY RESULTS QT 536 ms RADIOLOGY RESULTS QTc 648 ms RADIOLOGY RESULTS P [place] 70 degrees RADIOLOGY RESULTS R AXIS 84 degrees RADIOLOGY RESULTS T [place] 78 degrees RADIOLOGY RESULTS Interpretation ECG Sinus rhythm Left ventricular hypertrophy with repolarization abnormality ( Sokolow-Hernandez ) Marked ST abnormality, possible anterior subendocardial injury Prolonged QT Abnormal ECG When compared with ECG of 18-Jun-2024 11:14, Significant changes have occurred Unconfirmed report - interpretation of this ECG is computer generated - see medical record for final interpretation Confirmed by - EMERGENCY ROOM, PHYSICIAN ([id number]), managing editor NETTIE KIM ([id number]) on 07/01/2024 12:28:51 PM RADIOLOGY RESULTS 07/01/2024 11:3 7 AM VEHICLE SERVICE ATTENDANT 07/01/2024 12:28 PM VEHICLE SERVICE ATTENDANT Jesus Bobby MD ECG ORDERABLES Edited R esult - Final RADIOLOGY RESULTS * Influenza A/B, RSV and SARS-CoV2 PCR (COVID-19) Nasopharyngeal (07/01/2024 11:32 AM VEHICLE SERVICE ATTENDANT) Pathologist [facility] Influenza A PCR Negative Negative 07/01/2024 12:22 PM VEHICLE SERVICE ATTENDANT [facility] Influenza B PCR Negative Negative 07/01/2024 12:22 PM VEHICLE SERVICE ATTENDANT LABORATORY RSV PCR Negative Negative 07/01/2024 12:22 PM VEHICLE SERVICE ATTENDANT LABORATORY SARS CoV2 PCR Negative Negative 07/01/2024 12:22 PM VEHICLE SERVICE ATTENDANT LABORATORY Comment:NEGATIVE: SARS-CoV-2 (COVID-19) RNA not detected, presumed negative. Swab NASOPHARYNGEAL STRUCTURE / Unknown Non-blood Collection / Unknown 07/01/2024 11:32 AM VEHICLE SERVICE ATTENDANT 07/01/2024 11:39 AM VEHICLE SERVICE ATTENDANT Narrative LABORATORY - 07/01/2024 12:22 PM VEHICLE SERVICE ATTENDANT Testing was performed using the Xpert Xpress CoV2/Flu/RSV Assay on the [employer] GeneXpert Instrument. This test should be ordered [...] management. This test was validated by the [facility] [employer]. These laboratories are certified under the Clinical Laboratory Improvement Amendments of 1988 (CLIA-88) as qualified to perfom high complexity laboratory testing. Jesus Bobby MD LAB - MICRO GENERAL SCHUYLER [place] Final Result [facility] Lab [address] [facility] Lab (1st floor, no room number) [place] [address], [facility] documented in this encounter Visit Diagnoses Diagnosis Intractable nausea and vomiting Persistent vomiting Gitelman syndrome Disorders of magnesium metabolism Hypokalemia Hypopotassemia Hyponatremia Hyposmolality and/or hyponatremia Hypercalcemia BARBARA (acute kidney injury) Acute kidney failure, unspecified Headache, unspecified headache type Prolonged Q-T interval on ECG Nonspecific abnormal electrocardiogram (ECG) (EKG) Hypercalcemia Hypokalemia Hypopotassemia Gitelman syndrome Disorders of magnesium metabolism Hyponatremia Hyposmolality and/or hyponatremia Prolonged Q-T interval on ECG Nonspecific abnormal electrocardiogram (ECG) (EKG) BARBARA (acute kidney injury) Acute kidney failure, unspecified Intractable nausea and vomiting Persistent vomiting Headache, unspecified headache type documented in this encounter Administered Medications Inactive Administered Medications - up to 3 most recent administrations Medication Order MAR Action Action Date Dose Rate Site acetaminophen (TYLENOL) tablet 1,000 mg 1,000 mg, Oral, ONCE, On Sun07/01/24 at 1520, For 1 dose, Maximum acetaminophen dose from all sources = 75 mg/kg/day not to exceed 4 gram $Given 07/01/2024 4:03 PM VEHICLE SERVICE ATTENDANT 1,000 mg acetaminophen (TYLENOL) tablet 975 mg 975 mg, Oral, 3 TIMES DAILY, First dose on Sun07/01/24 at 2000, Maximum acetaminophen dose from all sources = 75 mg/kg/day not to exceed 4 grams/day. $Given 07/03/2024 8:08 AM VEHICLE SERVICE ATTENDANT 975 mg $Given 07/02/2024 8:42 PM VEHICLE SERVICE ATTENDANT 975 mg $Given 07/02/2024 1:51 PM VEHICLE SERVICE ATTENDANT 975 mg dexAMETHasone PF (DECADRON) injection 4 mg 4 mg, Intravenous, ONCE, Administer over 1 Minutes, On Sun07/01/24 at 1520, For 1 dose $Given 07/01/2024 4:03 PM VEHICLE SERVICE ATTENDANT 4 mg gabapentin (NEURONTIN) capsule 300 mg 300 mg, Oral, 2 TIMES DAILY, First dose on Sun07/02/24 at 0700 $Given 07/03/2024 11:52 AM VEHICLE SERVICE ATTENDANT 300 mg $Given 07/03/2024 8:08 AM VEHICLE SERVICE ATTENDANT 300 mg $Given 07/02/2024 11:52 AM VEHICLE SERVICE ATTENDANT 300 mg gabapentin (NEURONTIN) capsule 400 mg 400 mg, Oral, AT BEDTIME, First dose on Sun07/01/24 at 2200 $Given 07/02/2024 8:44 PM VEHICLE SERVICE ATTENDANT 400 mg $Given 07/01/2024 9:01 PM VEHICLE SERVICE ATTENDANT 400 mg heparin ANTICOAGULANT injection 5,000 Units 5,000 Units, Subcutaneous, 3 TIMES DAILY, First dose on Sun07/01/24 at 1800, Contact provider if platelet count drops by 50% or more after heparin initiation OR if platelet count falls below 50 x 10e3/uL High concentration heparin. Not for line flush or cath care. $Given 07/03/2024 8:09 AM VEHICLE SERVICE ATTENDANT 5,000 Units $Given 07/01/2024 8:09 PM VEHICLE SERVICE ATTENDANT 5,000 Units HYDROmorphone (DILAUDID) injection 0.2 mg 0.2 mg, Intravenous, EVERY 4 HOURS PRN, severe pain, Starting on Sun07/01/24 at 1736, All oral pain options should be tried prior to using narcotic medications $Given 07/01/2024 10:07 PM VEHICLE SERVICE ATTENDANT 0.2 mg $Given 07/01/2024 5:51 PM VEHICLE SERVICE ATTENDANT 0.2 mg HYDROmorphone (DILAUDID) tablet 2 mg 2 mg, Oral, EVERY 4 HOURS PRN, severe pain, Starting on Sun07/02/24 at 0719 $Given 07/03/2024 11:48 AM VEHICLE SERVICE ATTENDANT 2 mg $Given 07/02/2024 8:42 PM VEHICLE SERVICE ATTENDANT 2 mg HYDROmorphone (PF) (DILAUDID) injection 0.3 mg 0.3 mg, Intravenous, EVERY 4 HOURS PRN, severe pain, Starting on Sun07/02/24 at 0719, All oral pain options should be tried prior to using narcotic medications $Given 07/03/2024 8:09 AM VEHICLE SERVICE ATTENDANT 0.3 mg $Given 07/03/2024 3:49 AM VEHICLE SERVICE ATTENDANT 0.3 mg $Given 07/02/2024 3:13 PM VEHICLE SERVICE ATTENDANT 0.3 mg HYDROmorphone (PF) (DILAUDID) injection 0.5 mg 0.5 mg, Intravenous, EVERY 4 HOURS PRN, severe pain, Starting on Sun07/02/24 at 0220, All oral pain options should be tried prior to using narcotic medications $Given 07/02/2024 6:38 AM VEHICLE SERVICE ATTENDANT 0.5 mg $Given 07/02/2024 2:27 AM VEHICLE SERVICE ATTENDANT 0.5 mg LORazepam (ATIVAN) injection 0.5 mg 0.5 mg, Intravenous, EVERY 6 HOURS PRN, nausea/vomiting - 3rd line, Starting on Sun07/01/24 at 1520, IV Route: Dilute with equal volume NS prior to use. This drug may cause significant respiratory depression. Monitor respiratory status and vital signs carefully for 1 hour after each dose. $Given 07/02/2024 9:48 PM VEHICLE SERVICE ATTENDANT 0.5 mg $Given 07/01/2024 4:12 PM VEHICLE SERVICE ATTENDANT 0.5 mg melatonin tablet 5 mg 5 mg, Oral, AT BEDTIME PRN, sleep, Starting on Sun07/01/24 at 1721, Do not give unless at least 6 hours of uninterrupted sleep is expected. If patient has multiple medications ordered PRN sleep/insomnia, offer melatonin first. $Given 07/02/2024 8:43 PM VEHICLE SERVICE ATTENDANT 5 mg methocarbamol (ROBAXIN) half-tab 750 mg 750 mg, Oral, 4 TIMES DAILY PRN, muscle spasms, Starting on Sun07/01/24 at 1917 $Given 07/02/2024 5:32 PM VEHICLE SERVICE ATTENDANT 750 m g $Given 07/02/2024 4:38 AM VEHICLE SERVICE ATTENDANT 750 mg $Given 07/01/2024 8:09 PM VEHICLE SERVICE ATTENDANT 750 mg multivitamin w/minerals (THERA-VIT-M) tablet 1 tablet 1 tablet, Oral, DAILY, First dose on Sun07/01/24 at 1920 $Given 07/03/2024 8:08 AM VEHICLE SERVICE ATTENDANT 1 tablet $Given 07/02/2024 9:01 AM VEHICLE SERVICE ATTENDANT 1 tablet $Given 07/01/2024 7:59 PM VEHICLE SERVICE ATTENDANT 1 tablet naloxone (NARCAN) injection 0.2 mg 0.2 mg, Intravenous, EVERY 2 MIN PRN, opioid reversal, Starting on Sun07/01/24 at 1737, Administer intravenous route when available and notify [...] 2 MIN PRN, opioid reversal, Starting on Sun07/01/24 at 1737, Administer intramuscular if an intravenous route is [...] 2 MIN PRN, opioid reversal, Starting on Sun07/01/24 at 1737, Administer intravenous route when available and notify [...] 2 MIN PRN, opioid reversal, Starting on Sun07/01/24 at 1737, Administer intramuscular if an intravenous route is [...] improved after 4 naloxone doses. potassium chloride (KAYCIEL) solution 40 mEq 40 mEq, Oral, 4 TIMES DAILY, First dose on Sun07/02/24 at 0015, Recommend diluting each 15 mL of 10% solution with at least 3 ounces of liquid for administration. $Given 07/02/2024 4:49 PM VEHICLE SERVICE ATTENDANT 40 mEq $Given 07/02/2024 11:53 AM VEHICLE SERVICE ATTENDANT 40 mEq $Given 07/02/2024 9:00 AM VEHICLE SERVICE ATTENDANT 40 mEq potassium chloride (KLOR-CON) Packet 40 mEq 40 mEq, Oral, ONCE, On Sun07/01/24 at 1505, For 1 dose, Dissolve packet contents in 4-8 ounces of cold water or juice. $Given 07/01/2024 4:04 PM VEHICLE SERVICE ATTENDANT 40 mEq potassium chloride 10 mEq in 100 mL sterile water infusion 10 mEq, Intravenous, Administer over 60 Minutes, at 100 mL/hr, ONCE, On Sun07/01/24 at 1535, For 1 dose $New Bag 07/01/2024 4:05 PM VEHICLE SERVICE ATTENDANT 10 mEq 100 mL/hr potassium chloride deanne ER (KLOR-CON M20) CR tablet 20 mEq 20 mEq, Oral, ONCE, On Sun07/01/24 at 2100, For 1 dose, DO NOT CRUSH $Given 07/01/2024 9:01 PM VEHICLE SERVICE ATTENDANT 20 mEq potassium chloride deanne ER (KLOR-CON M20) CR tablet 40 mEq 40 mEq, Oral, 3 TIMES DAILY, First dose on Sun07/01/24 at 2000, DO NOT CRUSH $Given 07/01/2024 8:00 PM VEHICLE SERVICE ATTENDANT 40 mEq potassium chloride deanne ER (KLOR-CON M20) CR tablet 40 mEq 40 mEq, Oral, ONCE, On Sun07/02/24 at 1005, For 1 dose, DO NOT CRUSH $Given 07/02/2024 10:36 AM VEHICLE SERVICE ATTENDANT 40 mEq potassium chloride deanne ER (KLOR-CON M20) CR tablet 40 mEq 40 mEq, Oral, 4 TIMES DAILY, First dose (after last reorder) on Sun07/02/24 at 2200, Pharmacy changed from liquid to tabs, per pt request DO NOT CRUSH $Given 07/03/2024 8:08 AM VEHICLE SERVICE ATTENDANT 40 mEq $Given 07/02/2024 9:48 PM VEHICLE SERVICE ATTENDANT 40 mEq potassium chloride deanne ER (KLOR-CON M20) CR tablet 40 mEq 40 mEq, Oral, 3 TIMES DAILY, First dose (after last modification) on Sun07/03/24 at 1600, Pharmacy changed from liquid to tabs, per pt request DO NOT CRUSH senna-docusate (SENOKOT-S/PERICOLACE) 8.6-50 MG per tablet 1 tablet 1 tablet, Oral, 2 TIMES DAILY PRN, constipation, Starting on Sun07/01/24 at 1721, If no bowel movement in 24 hours, [...] 2 TIMES DAILY PRN, constipation, Starting on Sun07/01/24 at 1721, IF more than 1 constipation PRN medication [...] Intracatheter, EVERY 8 HOURS, First dose on Sun07/01/24 at 1725, to lock peripheral IV dormant line $Given 07/03/2024 3:49 AM VEHICLE SERVICE ATTENDANT 3 mLs $Given 07/01/2024 5:30 PM VEHICLE SERVICE ATTENDANT 3 mLs sodium chloride (PF) 0.9% PF flush 3 mL 3 mL, Intracatheter, EVERY 1 MIN PRN, line flush, other, to ensure patency or to lock dormant line, Starting on Sun07/01/24 at 1721 $Given 07/03/2024 8:09 AM VEHICLE SERVICE ATTENDANT 3 mLs sodium chloride 0.9 % infusion at 100 mL/hr, Intravenous, CONTINUOUS, Starting on Sun07/01/24 at 1640, Until [facility] 07/03/24 at 1509 $New Bag 07/03/2024 4:02 AM VEHICLE SERVICE ATTENDANT 100 mL/hr $New Bag 07/02/2024 6:30 PM VEHICLE SERVICE ATTENDANT 100 mL/hr Rate/Dose Verify 07/02/2024 5:59 PM VEHICLE SERVICE ATTENDANT 100 mL/ hr sodium chloride 0.9% BOLUS 1,000 mL Intravenous, 1,000 mL, ONCE, at 1,000 mL/hr, Administer over 1 Hours, On Sun07/01/24 at 1425, For 1 dose $New Bag 07/01/2024 4:05 PM VEHICLE SERVICE ATTENDANT 1,000 mLs 1000 mL/hr sodium chloride 0.9% BOLUS 500 mL Intravenous, 500 mL, ONCE, at 500 mL/hr, Administer over 1 Hours, On Sun07/01/24 at 1640, For 1 dose $New Bag 07/01/2024 5:28 PM VEHICLE SERVICE ATTENDANT 500 mLs 500 mL/hr documented in this encounter Active and Recently Administered Medications Times are shown in VEHICLE SERVICE ATTENDANT. Scheduled Medication Order 07/01/2024 07/02/2024 07/03/2024 acetaminophen (TYLENOL) tablet 1,000 mg (COMPLETED) 1,000 mg, Oral, ONCE, On Sun07/01/24 at 1520, For 1 dose, Maximum acetaminophen dose from all sources = 75 mg/kg/day not to exceed 4 gram 1603 ($Given - Provider: Jody Cole RN) acetaminophen (TYLENOL) tablet 975 mg 975 mg, Oral, 3 TIMES DAILY, First dose on Sun07/01/24 at 2000, Maximum acetaminophen dose from all sources = 75 mg/kg/day not to exceed 4 grams/day. 2000 ($Given - Provider: Teressa Cole RN) 0900 ($Given - Provider: Linda Puente RN)1351 ($Given - Provider: Linda Puente, DEVIN)2042 ($Given - Provider: Skylar Winters RN) 0808 ($Given - Provider: Jose Eduardo Horn RN)1400 (Canceled Entry - Provider: Orders Generic Provider - Comment: Automatically canceled at discontinue of medication order) dexAMETHasone PF (DECADRON) injection 4 mg (COMPLETED) 4 mg, Intravenous, ONCE, Administer over 1 Minutes, On Sun07/01/24 at 1520, For 1 dose 1603 ($Given - Provider: Jody Cole RN) gabapentin (NEURONTIN) capsule 300 mg 300 mg, Oral, 2 TIMES DAILY, First dose on Sun07/02/24 at 0700 0900 ($Given - Provider: Linda Puente RN)1152 ($Given - Provider: Linda Puente RN) 0808 ($Given - Provider: Jose Eduardo Horn RN)1152 ($Given - Provider: Jose Eduardo Horn RN) gabapentin (NEURONTIN) capsule 400 mg 400 mg, Oral, AT BEDTIME, First dose on Sun07/01/24 at 2200 2101 ($Given - Provider: Teressa Cole RN) 2044 ($Given - Provider: Skylar Winters RN - Comment: per pt request)2200 (Canceled Entry - Provider: Skylar Winters RN) heparin ANTICOAGULANT injection 5,000 Units 5,000 Units, Subcutaneous, 3 TIMES DAILY, First dose on Sun07/01/24 at 1800, Contact provider if platelet count drops by 50% or more after heparin initiation OR if platelet count falls below 50 x 10e3/uL High concentration heparin. Not for line flush or cath care. 2008 ($Given - Provider: Teressa Cole RN - Comment: Pt denied medication up to now) 0858 (Not Given - Provider: Linda Puenet RN - Reason: Patient/family refused)1349 (Not Given - Provider: Linda Puente RN - Reason: Patient/family refused)1999 (Not Given - Provider: Madelaine Milian RN - Reason: Patient/family refused) 0809 ($Given - Provider: Jose Eduardo Horn RN)1400 (Canceled Entry - Provider: Orders Generic Provider - Comment: Automatically canceled at discontinue of medication order) multivitamin w/minerals (THERA-VIT-M) tablet 1 tablet 1 tablet, Oral, DAILY, First dose on Sun07/01/24 at 1920 1959 ($Given - Provider: Teressa Cole RN) 0901 ($Given - Provider: Linda Puente RN) 0808 ($Given - Provider: Jose Eduardo Horn RN) potassium chloride (KAYCIEL) solution 40 mEq (CANCELED) 40 mEq, Oral, 4 TIMES DAILY, First dose on Sun07/02/24 at 0015, Recommend diluting each 15 mL of 10% solution with at least 3 ounces of liquid for administration. 0033 ($Given - Provider: Teressa Cole RN)0900 ($Given - Provider: Linda Puente, DEVIN)1153 ($Given - Provider: Linda Puente, DEVIN)1649 ($Given - Provider: Linda Puente RN)2041 (Not Given - Provider: Skylar Winters RN - Reason: Patient/family refused) potassium chloride (KLOR-CON) Packet 40 mEq (COMPLETED) 40 mEq, Oral, ONCE, On Sun07/01/24 at 1505, For 1 dose, Dissolve packet contents in 4-8 ounces of cold water or juice. 1604 ($Given - Provider: Jody Cole, RN) potassium chloride 10 mEq in 100 mL sterile water infusion (COMPLETED) 10 mEq, Intravenous, Administer over 60 Minutes, at 100 mL/hr, ONCE, On Sun07/01/24 at 1535, For 1 dose 1605 ($New Bag - Provider: Jody Cole, RN) potassium chloride deanne ER (KLOR-CON M20) CR tablet 20 mEq (COMPLETED) 20 mEq, Oral, ONCE, On Sun07/01/24 at 2100, For 1 dose, DO NOT CRUSH 2101 ($Given - Provider: Teressa Cole, DEVIN) potassium chloride deanne ER (KLOR-CON M20) CR tablet 40 mEq (CANCELED) 40 mEq, Oral, 3 TIMES DAILY, First dose on Sun07/01/24 at 2000, DO NOT CRUSH 2000 ($Given - Provider: Teressa Cole, DEVIN) potassium chloride deanne ER (KLOR-CON M20) CR tablet 40 mEq (COMPLETED) 40 mEq, Oral, ONCE, On Sun07/02/24 at 1005, For 1 dose, DO NOT CRUSH 1036 ($Given - Provider: Linda Puente, DEVIN) potassium chloride deanne ER (KLOR-CON M20) CR tablet 40 mEq (CANCELED) 40 mEq, Oral, 4 TIMES DAILY, First dose (after last reorder) on Sun07/02/24 at 2200, Pharmacy changed from liquid to tabs, per pt request DO NOT CRUSH 2148 ($Given - Provider: Skylar Winters RN) 0808 ($Given - Provider: Jose Eduardo Horn RN) potassium chloride deanne ER (KLOR-CON M20) CR tablet 40 mEq 40 mEq, Oral, 3 TIMES DAILY, First dose (after last modification) on Sun07/03/24 at 1600, Pharmacy changed from liquid to tabs, per pt request DO NOT CRUSH sodium chloride (PF) 0.9% PF flush 3 mL 3 mL, Intracatheter, EVERY 8 HOURS, First dose on Sun07/01/24 at 1725, to lock peripheral IV dormant line 1730 ($Given - Provider: Vera Reynolds RN) 0030 (Not Given - Provider: Teressa Cole RN - Reason: IV Infusing)0848 (Not Given - Provider: Linda Puente, RN - Reason: IV Infusing)1652 (Not Given - Provider: Linda Puente, RN - Reason: IV Infusing) 0349 ($Given - Provider: Wayne Barr, DEVIN)0901 (Not Given - Provider: Jose Eduardo Horn RN - Reason: IV Infusing) sodium chloride 0.9% BOLUS 1,000 mL (COMPLETED) Intravenous, 1,000 mL, ONCE, at 1,000 mL/hr, Administer over 1 Hours, On Sun07/01/24 at 1425, For 1 dose 1605 ($New Bag - Provider: Jody Cole RN) sodium chloride 0.9% BOLUS 500 mL (COMPLETED) Intravenous, 500 mL, ONCE, at 500 mL/hr, Administer over 1 Hours, On Sun07/01/24 at 1640, For 1 dose 1728 ($New Bag - Provider: Vera Reynolds RN) Continuous Medication Order 07/01/2024 07/02/2024 07/03/2024 sodium chloride 0.9 % infusion at 100 mL/hr, Intravenous, CONTINUOUS, Starting on Sun07/01/24 at 1640, Until Sun07/03/24 at 1509 1841 (Rate/Dose Change - Provider: Bud Rivera RN)2008 (Rate/Dose Verify - Provider: Teressa Cole RN)2312 ($New Bag - Provider: Teressa Cole RN) 0546 ($New Bag - Provider: Destiny Miguel, DEVIN)0904 ($New Bag - Provider: Linda Puente, DEVIN)1213 ($New Bag - Provider: Destiny Carrasco RN)1617 (Rate/Dose Change - Provider: Linda Puente, DEVIN)1759 (Rate/Dose Verify - Provider: Madelaine Milian, DEVIN)1830 ($New Bag - Provider: Madelaine Milian RN) 0402 ($New Bag - Provider: Wayne Barr, DEVIN) PRN Medication Order 07/01/2024 07/02/2024 07/03/2024 albuterol (PROVENTIL HFA/VENTOLIN HFA) inhaler 1-2 puff, Inhalation, EVERY 4 HOURS PRN, shortness of breath, wheezing, cough, Starting on Sun07/01/24 at 1917, Check the dose counter on the inhaler to ensure there are doses remaining before administering. Prime by spraying into the air 4 times prior to first use and if not used within 2 weeks. calcium carbonate (TUMS) chewable tablet 1,000 mg 1,000 mg, Oral, 4 TIMES DAILY PRN, heartburn, Starting on Sun07/01/24 at 1721 HYDROmorphone (DILAUDID) injection 0.2 mg (CANCELED) 0.2 mg, Intravenous, EVERY 4 HOURS PRN, severe pain, Starting on Sun07/01/24 at 1736, All oral pain options should be tried prior to using narcotic medications 1751 ($Given - Provider: Vera Reynolds RN)220 ($Given - Provider: Teressa Cole RN) HYDROmorphone (DILAUDID) tablet 2 mg 2 mg, Oral, EVERY 4 HOURS PRN, severe pain, Starting on Sun07/02/24 at 0719 1043 (Not Given - Provider: Linda Puente RN - Reason: Patient/family refused - Comment: pt wanted IV dilaudid, PO dilaudid returned with witness.)1950 (Not Given - Provider: Madelaine Milian RN - Reason: Patient/family refused - Comment: prefers IV dilaudid - NOC RN informed)2041 ($Given - Provider: Skylar Winters RN) 040 (Not Given - Provider: Wayne Barr, DEVIN - Reason: Patient/family refused - Comment: IV form given instead)1148 ($Given - Provider: Jose Eduardo Horn RN)1151 (Not Given - Provider: Jose Eduardo Horn RN - Reason: Other) HYDROmorphone (PF) (DILAUDID) injection 0.3 mg (CANCELED) 0.3 mg, Intravenous, EVERY 4 HOURS PRN, severe pain, Starting on Sun07/02/24 at 0719, All oral pain options should be tried prior to using narcotic medications 1041 ($Given - Provider: Linda Puente, RN)1513 ($Given - Provider: Linda Puente, RN) 0349 ($Given - Provider: Wayne Barr, DEVIN)0809 ($Given - Provider: Jose Eduardo Horn, DEVIN) HYDROmorphone (PF) (DILAUDID) injection 0.5 mg (CANCELED) 0.5 mg, Intravenous, EVERY 4 HOURS PRN, severe pain, Starting on Sun07/02/24 at 0220, All oral pain options should be tried prior to using narcotic medications 0227 ($Given - Provider: Teressa Cole RN)0638 ($Given - Provider: Teressa Cole RN) lidocaine (LMX4) cream Topical, EVERY 1 HOUR PRN, pain, with VAD insertion, Starting on Sun07/01/24 at 1721, Apply at least 30 minutes prior to VAD insertion in divided doses as needed for size of site for insertion. MAX Dose: 2.5 g ( of 5 g tube) Do NOT give if patient has a history of allergy to any local anesthetic or any mark product. Do NOT use both lidocaine intradermal/subcutaneous injection and the lidocaine cream on the same site. lidocaine 1 % 0.1-1 mL 0.1-1 mL, Other, EVERY 1 HOUR PRN, mild pain with VAD insertion, Starting on Sun07/01/24 at 1721, MAX dose 1 mL subcutaneous OR intradermal along the side of the vein in divided doses as needed for VAD insertion. Do NOT give if patient has a history of allergy to any local anesthetic or any mark product. Do NOT use both lidocaine intradermal/subcutaneous injection and the lidocaine cream on the same site. LORazepam (ATIVAN) injection 0.5 mg 0.5 mg, Intravenous, EVERY 6 HOURS PRN, nausea/vomiting - 3rd line, Starting on Sun07/01/24 at 1520, IV Route: Dilute with equal volume NS prior to use. This drug may cause significant respiratory depression. Monitor respiratory status and vital signs carefully for 1 hour after each dose. 1612 ($Given - Provider: Jody Cole RN) 2143 ($Given - Provider: Skylar Winters RN) melatonin tablet 5 mg 5 mg, Oral, AT BEDTIME PRN, sleep, Starting on Sun07/01/24 at 1721, Do not give unless at least 6 hours of uninterrupted sleep is expected. If patient has multiple medications ordered PRN sleep/insomnia, offer melatonin first. 2042 ($Given - Provider: Skylar Winters RN) methocarbamol (ROBAXIN) half-tab 750 mg 750 mg, Oral, 4 TIMES DAILY PRN, muscle spasms, Starting on Sun07/01/24 at 1917 2008 ($Given - Provider: Teressa Cole, RN) 437 ($Given - Provider: Teressa Cole, RN)1731 ($Given - Provider: Linda Puente RN)2032 (Not Given - Provider: Skylar Winters RN - Reason: Order parameters not met) naloxone (NARCAN) injection 0.2 mg(Linked Group 1) 0.2 mg, Intravenous, EVERY 2 MIN PRN, opioid reversal, Starting on Sun07/01/24 at 173, Administer intravenous route when available and notify [...] doses. naloxone (NARCAN) injection 0.2 mg(Linked Group 1) 0.2 mg, Intramuscular, EVERY 2 MIN PRN, opioid reversal, Starting on Sun07/01/24 at 1737, Administer intramuscular if an intravenous route is [...] doses. naloxone (NARCAN) injection 0.4 mg(Linked Group 1) 0.4 mg, Intravenous, EVERY 2 MIN PRN, opioid reversal, Starting on Sun07/01/24 at 1737, Administer intravenous route when available and notify [...] doses. naloxone (NARCAN) injection 0.4 mg(Linked Group 1) 0.4 mg, Intramuscular, EVERY 2 MIN PRN, opioid reversal, Starting on Sun07/01/24 at 1737, Administer intramuscular if an intravenous route is [...] 8.6-50 MG per tablet 1 tablet(Linked Group 2) 1 tablet, Oral, 2 TIMES DAILY PRN, constipation, Starting on Sun07/01/24 at 1721, If no bowel movement in 24 hours, [...] 8.6-50 MG per tablet 2 tablet(Linked Group 2) 2 tablet, Oral, 2 TIMES DAILY PRN, constipation, Starting on Sun07/01/24 at 1721, IF more than 1 constipation PRN medication [...] or to lock dormant line, Starting on Sun07/01/24 at 1721 0809 ($Given - Provider: Jose Eduardo Horn RN) Linked Groups Order Group 1: naloxone (NARCAN) injection 0.2 mgJump to med 0.2 mg, Intravenous, EVERY 2 MIN PRN, opioid reversal, Starting on Sun07/01/24 at 1737, Administer intravenous route when available and notify [...] 2 MIN PRN, opioid reversal, Starting on Sun07/01/24 at 1737, Administer intravenous route when available and notify [...] 2 MIN PRN, opioid reversal, Starting on Sun07/01/24 at 1737, Administer intramuscular if an intravenous route is [...] 2 MIN PRN, opioid reversal, Starting on Sun07/01/24 at 1737, Administer intramuscular if an intravenous route is [...] not improved after 4 naloxone doses. Group 2: senna-docusate (SENOKOT-S/PERICOLACE) 8.6-50 MG per tablet 1 tabletJump to med 1 tablet, Oral, 2 TIMES DAILY PRN, constipation, Starting on Sun07/01/24 at 1721, If no bowel movement in 24 hours, [...] 2 TIMES DAILY PRN, constipation, Starting on Sun07/01/24 at 1721, IF more than 1 constipation PRN medication is ordered, administer step-aguilar as indicated, moving to the next step ONLY if prior step ineffective. Step 1: senna-docusate (SENOKOT-S; PERICOLACE) OR bisacodyl (DULCOLAX) EC tablet Step 2: polyethylene glycol (MIRALAX/GLYCOLAX) Step 3: bisacodyl (DULCOLAX) suppository Step 4: enema Hold for loose stools. documented in this encounter Care Teams Propagation Worker Relationship Specialty [place] [address] [place] [address] PCP - General 03/07/24 documented as of this encounter
--- OUTSIDE RECORDS SUMMARY | 2024-07-08 17:32 | XMS_ITS | Encounter Summary ---
Author Organization [facility] Address [address] [place] [address]. 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 Gender Identity Not on file Sexual Orientation Not on file 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 Not on file Not on file documented as of this encounter Plan of Treatment Upcoming Encounters Date Type Department Care Team (Late st Contact Info) Description 07/09/2024 11:00 AM HYDROGENATION OPERATOR Virtual Visit [facility] [address] [facility] [address] [address] [place] [address] [place], [place] [id number] [place], [address] [facility] [address] [place] [address] documented as of this encounter Visit Diagnoses Not on filedocumented in this encounter Additional Health Concerns Infection Onset Date Last Indicated Resolved Time Rule Out COVID-19 07/01/2024 07/01/2024 07/01/2024 12:22 PM HYDROGENATION OPERATOR documented as of this encounter Care Teams Anesthetist Relationship Specialty [place] [address] [place] [address] PCP - General 03/07/24 documented as of this encounter
--- OUTSIDE RECORDS SUMMARY | 2024-07-08 17:32 | XMS_ITS | Encounter Summary ---
Author Organization [facility] Address [address] [place] [address]. 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 on file Not on file documented as of this encounter Plan of Treatment Upcoming Encounters Date Type Department Care Team (Late st Contact Info) Description 07/09/2024 11:00 AM DRIVER WHEELCHAIR Virtual Visit [facility] [address] [facility] [address] [address] [place] [address] [place] [address] [place] [facility] [address] [facility] [address] [place] [address] documented as of this encounter Visit Diagnoses Not on filedocumented in this encounter Additional Health Concerns Infection Onset Date Last Indicated Resolved Time Rule Out COVID-19 07/01/2024 07/01/2024 07/01/2024 12:22 PM DRIVER WHEELCHAIR documented as of this encounter Care Teams Aquatic Laborer Relationship Specialty Start [place] [address] [place], [place] [phone] PCP - General 03/07/24 documented as of this encounter
--- OUTSIDE RECORDS SUMMARY | 2024-07-08 17:32 | XMS_ITS | Encounter Summary ---
Author Organization [facility] Address [address] [place] [address] Care Team Providers Care Acoustical Tile Drill Press Operator Name Role Phone Gregg Corrales MD Primary Care Provider Reason for Referral * Consultation (Urgent: 3-5 Days) - Pending Review Specialty Diagnoses / Procedures Referred By Miguelangel aleman Referred To Contact Genetics, Clinical Diagnoses [place] [address] [place] [address] Phone: tel: fax: Referral ID Status Reason Start Date Expiration Date V isits Requested Visits Authorized [id number] Pending Review 06/24/2024 06/24/2025 1 1 Question Answer Reason for Referral: Other My Clinical Question Is: genetic testing for tubulopathy (causing hypokalmeia/alkalosis) like Bartter syndrome and Gitelman syndrome Preferred Location: [facility] Patient Scheduling Instructions: [facility] will call you to coordinate your care as prescribed by your provider. If you don't hear from a strategic partnership representative within 2 business days, please call [phone]. Additional Information: Florencia Hurt / BERTIN Brown / ph. [phone] / fax. [phone] Comments Please come to the appointment prepared to discuss: Medical history for yourself - including symptoms, diagnosis, age of onset, and treatments. Medical history for your family members (from immediate family to grandparents, aunts, uncles, and cousins) - including diagnosis, age of onset, and cause of . Information about genetic testing results in family members, including a copy of lab report. [facility] will call you to coordinate your care as prescribed by your provider. If you don't hear from a strategic partnership representative within 2 business days, please call [phone]. 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 No 06/17/2024 Within the past 12 months, d id the food you bought just not last and you didn t have money to get more? No 06/17/2024 Housing Stability Answer Date Recorded Do you have housing? (Bishnuin g is defined as stable permanent housing and does not include staying ouside in a car, in a tent, in an abandoned building, in an overnight chcf, or couch-surfing.) Yes 06/17/2024 Are you worried about losing your housing? No 06/17/2024 Financial Resource Strain Answer Date R ecorded Within the past 12 months, h ave you or your family members you live with been unable to get utilities (heat, electricity) when it was really needed? No 06/17/2024 Transportation Needs Answer Date Record ed Within the past 12 months, h as lack of transportation kept you from medical appointments, getting your medicines, non-medical meetings or appointments, work, or from getting things that you need? No 06/17/2024 Interpersonal Safety Answer Date Record ed Do you feel physically and e motionally safe where you currently live? Yes 06/17/2024 Within the past 12 months, h ave you been hit, slapped, kicked or otherwise physically hurt by someone? No 06/17/2024 Within the past 12 months, h ave you been humiliated or emotionally abused in other ways by your partner or ex-partner? 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 on file Not on file documented as of this encounter Plan of Treatment Upcoming Encounters Date Type Department Care Team (Late st Contact Info) Description 07/09/2024 11:00 AM DRAPERY HEMMER AUTOMATIC Virtual Visit [facility] [address] [facility] [address] [address] [place] [address] [place], [place] [id number] [place], [address] [facility] [address] [place] [address] Scheduled Referrals Name Type Priority Associated Diagnoses Orde r Schedule Adult Genetics & Metabolism Drier Helper Referral Referral Urgent: 3-5 Days Hypokalemia Alkalosis Expected: 06/24/2024, Expires: 06/24/2025 documented as of this encounter Visit Diagnoses Diagnosis Hypokalemia- Primary Hypopotassemia Alkalosis documented in this encounter Care Teams Acoustical Tile Drill Press Operator Relationship Specialty Start [place] [address] [place] [address] PCP - General 03/07/24 documented as of this encounter
--- OUTSIDE RECORDS SUMMARY | 2024-07-08 17:32 | XMS_ITS | Encounter Summary ---
Author Organization [facility] Address [address] [place] [id number] Care Team Providers Care Cytogenetic Technician Name Role Phone Gregg Corrales MD Primary Care Provider Reason for Visit * Reason Comments Abnormal Labs * Auth/Cert (Routine) Specialty Diagnoses / Procedures Referred By Miguelangel t Referred To Contact Med Surg Diagnoses Hypokalemia Acute kidney injury Knee injury, left, initial encounter Hypokalemia Acute kidney injury (H) [facility] [id number] [facility] [address] [place] [address] Phone: tel: fax: Referral ID Status Reason Start Date Expiration Date Visits Re quested Visits Authorized [id number] 1 1 Encounter Details Date Type Department Care Team (Late st Contact Info) Description 06/16/2024 5:01 PM LIGHTING ADVISER - 06/20/2024 1:46 PM LIGHTING ADVISER Hospital Encounter [facility] [id number] [facility] [address] [place] [phone] Jamil Madison MD [facility] [address] [place] [address] Fabian Chowdary MD [address] [place] [address] Hypokalemic alkalosis (Primary Dx); Hypokalemia; Acute kidney [...] in an abandoned building, in an overnight half-way, or couch-surfing.) Yes 06/17/2024 Are you worried [...] on file Legal Sex Female 4:48 AM LIGHTING ADVISER Gender Identity Not on file Sexual Orientation Not on file 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 Not on file Not on file documented as of this encounter Last Filed Vital Signs Vital Sign Reading Time Taken Comments Blood Pressure 113/60 06/20/2024 8:37 AM LIGHTING ADVISER Pulse 81 06/20/2024 8:37 AM LIGHTING ADVISER Temperature 37.1 C (98.7 F) 06/20/2024 8:37 AM LIGHTING ADVISER Respiratory Rate 16 06/20/2024 10:26 AM LIGHTING ADVISER Oxygen Saturation 97% 06/20/2024 8:37 AM LIGHTING ADVISER Inhaled Oxygen Concentration - - Weight 48.7 kg (107 lb 4.8 oz) 06/20/2024 5:00 A M LIGHTING ADVISER Height 170.2 cm (5' 7) 06/16/2024 4:59 PM LIGHTING ADVISER Body Mass Index 16.81 06/16/2024 4:59 PM LIGHTING ADVISER documented in this encounter Discharge Summaries * Azar Umanzor MD - 06/20/2024 1:29 PM CST [facility] Discharge Summary Hospitalist Date of Admission: 06/16/2024 Date of Discharge: 06/20/2024 Discharging Provider: Azar Umanzor MD Date of Service (when I saw the patient): 06/20/24 Discharge Diagnoses #Gitelman's syndrome. Recurrent hypokalemia, severe. #Recurrent hypercalcemia #Recurrent acute kidney injury on chronic kidney disease. #Metabolic alkalosis #Prolonged QT #Knee contusion. Chronic opioid use disorder #Depression #Anxiety #PTSD #Fibromyalgia #Adjustment disorder #Chronic anemia #Severe malnutrition in context of chronic illness Hospital Course Lorraine Klein is a 34 year old female admitted on 06/16/2024 with acute kidney injury, hypokalemia, and metabolic alkalosis. She has history of Gitelman's syndrome, hypokalemia, metabolic alkalosis, chronic kidney disease, recurrent acute kidney injury, multiple admissions for all of the prior, depression, anxiety, PTSD, adjustment disorder, fibromyalgia, irritable bowel syndrome, small bowel obstruction, osteoporosis, gastroparesis, autonomic disorder, and opioid use disorder with seeking behaviors who presents with recurrent abnormal labs. Patient has had at least 10 admissions since November 2023 for same issue of renal dysfunction, electrolyte imbalance in setting of Gitelman's. There has also been concern of bulimia given the patient's recurrent severe electrolyte abnormalities, low BMI, teeth erosions etc. however patient denies thisand has refused psych eval in past. She was recently hospitalized here from 05/29 through 05/31 with acute kidney injury, hyponatremia, hypokalemia, hypercalcemia, hypermagnesemia, and metabolic alkalosis. She was treated with IV fluids and electrolyte replacement. She left AGAINST MEDICAL ADVICE. During that admission she was complaining of acute on chronic pain and repeatedly requesting IV pain medications despite reassuring imaging. #Gitelman's syndrome. Recurrent hypokalemia, severe. Recurrent hypercalcemia. Recurrent acute kidney injury on chronic kidney disease. Current metabolic alkalosis: She has been taking potassium chloride 80 mEq 3 times daily. Her automotive paint technician reduce her Aldactone from 50 mg at night to 25 mg at night. She recently followed up with her [employer] automotive paint technician and had labs obtained. She was contacted today and told to go to the ER because of severe hypokalemia. She reports that she fell on 06/14 and has had left knee pain. She also reports 3 to 4 days of diarrhea, maybe 3-4 times per day. She has been able to eat or drink as she normally does. She reports that she has been able to take her medicati ons, however. She also drinks 2 liquid IVs per day which she says for the most part she has been able to continue to do. Baseline creatinine seems to be around 1.2-1.4. -Emergency department evaluation showed stable vital signs. Laboratory evaluation showed sodium 138, potassium 2.0, chloride 73, bicarb 50, BUN 43, creatinine 3.59 (creatinines have been all over theplace between 1.6 and 3.4 in the last year), calcium 13.2, magnesium 2.4, and hemoglobin 9.5. Left knee x-ray was unremarkable. ECG showed QT of 612. Patient was started on IV fluid and given potassium. She was given oxycodone 5 mg for knee pain -IVF stopped today by nephrology. Defer to them. Likely need to see what renal function does with her own PO intake alone. -Pt was treated per usual with IV fluids, high potassium replacement. -She actually had reduced K+ needs even off IV fluids of 40 meq TID (Had been on 80 meq TID chronically). -Her creatinine was stable around 2 at time of discharge. Discussed with nephrology on day of discharge and OK to discharge with outpatient follow up. She will hold her spironolactone on discharge. Continue K+ replacement 40 meq TID which she was doing in hospital. Follow up with nephrology with repeat labs next week. #Prolonged QT: Electrolytes better on 06/18. QTC better on 06/18 with normalization of electrolytes. #Diarrhea?: Question about diarrhea on admission but not having any since admission. Cancelled enteric panel. #Knee contusion. Chronic opioid use disorder: XR negative for fx. She had CT during prior admissionthat was negative for fx. She has no evidence of swelling on exam. She has tenderness along medial aspect of joint but unclear if volitional. I am able to passively bend/extend but she groins in pain. MRI of knee without major ligamentous injury or fracture. -AVOIDING IV PAIN MEDS. Discussed at length with patient, bedside nurse. Oral meds available. -With her fibromyalgia she may benefit from following with outpatient pain clinic. She says she is [facility] -Pt again requesting to see pain specialist. Seen by pain team. She was managed with oral oxycodonewhich was weaned during hospital stay. WOULD TRY TO AVOID IV PAIN MEDS IN FUTURE AND PT REALLY SHOULD BE AVOIDING ESCALATION OF NARCOTICS IN GENERAL. -She was not discharged with any narcotics. Depression Anxiety PTSD Fibromyalgia Adjustment disorder -She was offered to see psychiatry during her hospitalization but declined this and she tells me she has follow up with her provider through [facility]. #Chronic anemia: Monitor. No evidence of bleeding. #Severe malnutrition in context of chronic illness: Present on admission. Nutrition consulted. HighKcal diet ordered per patient request. Azar Umanzor MD Code Status Full Code Primary Care Physician Gregg Corrales Physical Exam Temp: 98.7 ??F (37.1 ??C) Temp src: Oral BP: 113/60 Pulse: 81 Resp: 16 SpO2: 97 % O2 Device: None (Room air) Vitals: 06/18/24 0610 06/19/24 0504 06/20/24 0500 Weight: 49.3 kg (108 lb 11.2 oz) 49.4 kg (108 lb 14.4 oz) 48.7 kg (107 lb 4.8 oz) Vital Signs with Ranges Temp: [98 ??F (36.7 ??C)-98.7 ??F (37.1 ??C)] 98.7 ??F (37.1 ??C) Pulse: [81-93] 81 Resp: [16-18] 16 BP: (113-155)/(60-94) 113/60 SpO2: [97 %-99 %] 97 % No intake/output data recorded. Constitutional: Thin, cachectic. NAD. HEENT: Normocephalic. MMM, No elevation of JVD noted. Respiratory: Nl WOB, Clear bilaterally, No wheezes or crackles Cardiovascular: Regular, no murmur GI: BS+, NT, ND Skin/Integumen: WWP. Thin extremities. Neuro: CNII-XII intact. Moves all extremities. No tremor. A&Ox3. Discharge Disposition Discharged to home Condition at discharge: Stable Consultations This Hospital Stay NEPHROLOGY IP CONSULT CARE MANAGEMENT / SOCIAL WORK IP CONSULT NUTRITION SERVICES ADULT IP CONSULT PAIN MANAGEMENT ADULT IP CONSULT Time Spent on this Encounter I, Azar Umanzor MD, personally saw the patient today and spent greater than 30 minutes discharging this patient. Discharge Orders Reason for your hospital stay You were hospitalized for recurrent kidney injury and electrolyte abnormalities. You received IV fluid and electrolyte replacement. You were seen by nephrology and pain team. You need to see nephrology and have repeat labs drawn next week to ensure labs are still stable. Follow-up and recommended labs and tests Follow up with primary care provider, Gregg Crorales, or nephrology within 7 days for hospital follow- up. The following labs/tests are recommended: CBC and BMP. Activity Your activity upon discharge: activity as tolerated Full Code Diet Follow this diet upon discharge: Current Diet:Orders Placed This Encounter High Kcal/High Protein Diet, ADULT Discharge Medications Current Discharge Medication List CONTINUE these medications which have CHANGED Details potassium chloride deanne ER (KLOR-CON M20) 20 MEQ CR tablet Take 2 tablets (40 mEq) by mouth 3 timesdaily. Associated Diagnoses: Hypokalemia CONTINUE these medications which have NOT CHANGED Details albuterol (PROAIR HFA/PROVENTIL HFA/VENTOLIN HFA) 108 (90 Base) MCG/ACT inhaler Inhale 1-2 puffs into the lungs every 4 hours as needed for shortness of breath, wheezing or cough. ferrous sulfate 325 (65 Fe) MG TBEC EC tablet Take 325 mg by mouth 3 times daily (with meals). Withfood or snack !! gabapentin (NEURONTIN) 100 MG capsule Take 100 mg by mouth at bedtime. with 300 mg capsule !! gabapentin (NEURONTIN) 300 MG capsule Take [...] TABS Take 1 tablet by mouth daily ondansetron (ZOFRAN) 4 MG tablet Take 4 mg by mouth every 8 hours as needed for nausea or vomiting. senna-docusate (SENOKOT-S/PERICOLACE) 8.6-50 MG tablet Take 1 tablet by mouth 2 times daily as needed for constipation. Associated Diagnoses: Closed fracture of single ramus of right pubis, with delayed healing, subsequent encounter traMADol (ULTRAM) 50 MG tablet Take 50 mg by mouth 2 times daily as needed for severe pain. !! - Potential duplicate medications found. Please discuss with provider. STOP taking these medications spironolactone (ALDACTONE) 50 MG tablet Comments: Reason for Stopping: Allergies Allergies [...] long and has history of long QT. Data Most Recent 3 CBC's: Recent Labs Lab Test 06/20/24 0723 06/18/24 0608 06/17/24 0652 WBC 7.2 6.6 6.4 HGB 8.0* 7.7* 7.9* MCV 84 85 82 PLT 316 270 268 Most Recent 3 BMP's: Recent Labs Lab Test 06/20/24 0723 06/19/24 0636 06/18/24 1904 NA 145 144 145 POTASSIUM 4.5 4.2 3.9 CHLORIDE 105 104 101 CO2 27 28 33* BUN 26.8* 25.8* 27.3* CR 2.09* 1.91* 2.12* ANIONGAP 13 12 11 ELKE 9.9 9.9 9.9 GLC 82 122* 77 Most Recent 2 LFT's: Recent Labs Lab Test 05/31/24 0835 05/29/24 1441 AST 22 37 ALT 12 12 ALKPHOS 75 88 BILITOTAL <0.2 0.3 Most Recent INR's and Anticoagulation Dosing History: Anticoagulation Dose History Latest Ref Rng & Units 04/10/2018 08/01/2018 Recent Dosing and Labs INR 0.86 - 1.14 0.95 0.93 Most Recent 3 Troponin's: Recent Labs Lab Test 03/01/21 1546 02/09/21 1138 06/04/19 0620 06/04/19 0016 06/03/19 1930 TROPI -- -- <0.015 <0.015 <0.015 TROPONIN <0.015 <0.015 -- -- -- Most Recent Cholesterol Panel:No lab results found. Most Recent 6 Bacteria Isolates From Any Culture (See EPIC Reports for Culture Details):No lab results found. Most Recent TSH, T4 and A1c Labs: Recent Labs Lab Test 05/29/24 1441 TSH 1.95 TING ADVISER documented in this encounter Discharge Instructions * Discharge Instructions* Mirela Gomez LICSW - 06/18/2024 10:01 AM LIGHTING ADVISER [facility] for Medical Expenses Please call: [facility]: [phone] TING ADVISER documented in this encounter Medications at Time [...] Lunch, Bed-time hydrOXYzine HCl (ATARAX) 25 MG tabletIndications :Acute bilateral low back pain without sciatica Take 1-2 tablets (25-50 mg) by mouth every 6 hours as needed for other (adjuvant pain). 30 tablet 03/12/2024 magnesium oxide (MAG-OX) 400 MG tablet Take 400 mg by mouth 3 times daily (with meals). 03/06/2017 methocarbamol (ROBAXIN) 750 MG tablet Take 750 mg by mouth 4 times daily as needed for muscle spasms. ondansetron (ZOFRAN) 4 MG tablet Take 4 mg by mouth every 8 hours as needed for nausea or vomiting. potassium chloride deanne ER (KLOR-CON M20) 20 MEQ CR tabletIndications :Hypokalemia Take 2 tablets (40 mEq) by mouth 3 times daily. 06/20/2024 senna-docusate (SENOKOT-S/TOBY LACE) 8.6-50 MG tabletIndications :Closed fracture of single ramus of right pubis, with delayed healing, subsequent encounter Take 1 tablet by mouth 2 times daily as needed for constipation. 03/23/2024 traMADol (ULTRAM) 50 MG tablet Take 50 mg by mouth 2 times daily as needed for severe pain. multivitamin, therapeutic (THERA-VIT) TABS Take 1 tablet by mouth daily 5 documented as of this encounter Progress Notes * Karen Wilkes, RD - 06/20/2024 9:45 AM CST Calorie Count Current Diet: High calorie/high protein Date: 06/19 Meals Recorded: 5 (out of 5 meals ordered) Calories consumed - 2710 Protein consumed - 407 g ASSESSED NUTRITION NEEDS PER APPROVED PRACTICE GUIDELINES: Dosing Weight 46 kg Estimated Energy Needs: 30-35 Kcal/Kg Justification: repletion Estimated Protein Needs: 1.2-1.5 g pro/Kg Justification: Repletion Estimated Fluid Needs: 1 mL/Kcal Justification: maintenance or per provider pending fluid status Summary: - Calorie counts show patient consumed ~170% of energy needs and ~590% of protein needs via 5 meals. - Meal ordering system shows patient is ordering an excessive amount of food (>9000 kcal and >400 g protein) which is often indicative of active eating disorder or unhealthy relationship with food. There is documentation of concern for bulimia in chart. - Discontinued calorie counts (previously ordered by provider) as a result of concern for active eating disorder. Removed folder from door. - Have again discussed w/ team during rounds possibility of psych consult vs outpatient support forany mental health needs. - RD team is following peripherally at this time. Please formally re-consult or message if needs arise. Nutrition POC is per provider teams. Karen Wilkes RDN, PROCUREMENT REPRESENTATIVE, LD Clinical Dietitian [facility] Message Group: Dietitian [[facility]] Office: [phone] Pagers: 3rd floor/ICU: [phone] All other floors: [phone] Weekend/holiday: [phone] TING ADVISER * Javon Devine MD - 06/19/2024 5:21 PM CST Notes, labs, vitals reviewed. Labs are all better x Mg, Phos remain low. K is nl. Check urine electrolytes now that fluids have been stopped and she is eating. Case d/w Dr. Umanzor. TING ADVISER * Karen Wilkes RD - 06/19/2024 10:16 AM CST Calorie Count - Provider ordered calorie counts from 06/18-06/20. - Folder for recording is in place on door and multiple meal slips were present in folder, but no recordings of PO intakes on slips. - Discussed w/ RN who reports tracking PO intakes has been difficult as patient is also getting food from vending machines and cafeteria downstairs. Also mention of patient hiding food when staff enter room. All making tracking of PO intakes difficult. - Patient ordered 6 meal trays yesterday via room service. - There are no flowsheet recordings. - Discussed w/ RN and team during rounds, possibility of psych consult vs mental health follow-up at discharge, if this is thought to be r/t active eating disorder. Karen Wilkes RDN, PROCUREMENT REPRESENTATIVE, LD Clinical Dietitian [facility] Message Group: Dietitian [[facility]] Office: [phone] Pagers: 3rd floor/ICU: [phone] All other floors: [phone] Weekend/holiday: [phone] TING ADVISER * Azar Umanzor MD - 06/19/2024 9:00 AM CST [facility] Hospitalist Progress Note Assessment & Plan Lorraine Klein is a 34 year old female admitted on 06/16/2024 with acute kidney injury, hypokalemia, and metabolic alkalosis. She has history of Gitelman's syndrome, hypokalemia, metabolic alkalosis, chronic kidney disease, recurrent acute kidney injury, multiple admissions for all of the prior, depression, anxiety, PTSD, adjustment disorder, fibromyalgia, irritable bowel syndrome, small bowel obstruction, osteoporosis, gastroparesis, autonomic disorder, and opioid use disorder with seeking behaviors who presents with recurrent abnormal labs. Patient has had at least 10 admissions since November 2023 for same issue of renal dysfunction, electrolyte imbalance in setting of Gitelman's. There has also been concern of bulimia given the patient's recurrent severe electrolyte abnormalities, low BMI, teeth erosions etc. however patient denies thisand has refused psych eval in past. She was recently hospitalized here from 05/29 through 05/31 with acute kidney injury, hyponatremia, hypokalemia, hypercalcemia, hypermagnesemia, and metabolic alkalosis. She was treated with IV fluids and electrolyte replacement. She left AGAINST MEDICAL ADVICE. During that admission she was complaining of acute on chronic pain and repeatedly requesting IV pain medications despite reassuring imaging. #Gitelman's syndrome. Recurrent hypokalemia, severe. Recurrent hypercalcemia. Recurrent acute kidney injury on chronic kidney disease. Current metabolic alkalosis: She has been taking potassium chloride 80 mEq 3 times daily. Her automotive paint technician reduce her Aldactone from 50 mg at night to 25 mg at night. She recently followed up with her [employer] automotive paint technician and had labs obtained. She was contacted today and told to go to the ER because of severe hypokalemia. She reports that she fell on 06/14 and has had left knee pain. She also reports 3 to 4 days of diarrhea, maybe 3-4 times per day. She has been able to eat or drink as she normally does. She reports that she has been able to take her medicati ons, however. She also drinks 2 liquid IVs per day which she says for the most part she has been able to continue to do. Baseline creatinine seems to be around 1.2-1.4. -Emergency department evaluation showed stable vital signs. Laboratory evaluation showed sodium 138, potassium 2.0, chloride 73, bicarb 50, BUN 43, creatinine 3.59 (creatinines have been all over theplace between 1.6 and 3.4 in the last year), calcium 13.2, magnesium 2.4, and hemoglobin 9.5. Left knee x-ray was unremarkable. ECG showed QT of 612. Patient was started on IV fluid and given potassium. She was given oxycodone 5 mg for knee pain -IVF stopped today by nephrology. Defer to them. Likely need to see what renal function does with her own PO intake alone. -High K+ replacement protocol. Scheduled K+ reduced to 40 meq TID from QID on 06/18. Mag replacement. Phosphorus replacement. -Given her recurrent admissions, it looks like nephrology planning on monitoring her in a controlled setting for another couple days to determine her steady state to try to avoid readmission again. -Monitor BMP. Need to determine how much potassium she needs at steady state. -Nephrology consulted. -Hold aldactone. #Prolonged QT: Electrolytes better on 06/18. QTC better on 06/18 with normalization of electrolytes. #Diarrhea?: Question about diarrhea on admission but not having any since admission. Cancelled enteric panel. #Knee contusion. Chronic opioid use disorder: XR negative for fx. She had CT during prior admissionthat was negative for fx. She has no evidence of swelling on exam. She has tenderness along medial aspect of joint but unclear if volitional. I am able to passively bend/extend but she groins in pain. MRI of knee without major ligamentous injury or fracture. -AVOIDING IV PAIN MEDS. Discussed at length with patient, bedside nurse. Oral meds available. -With her fibromyalgia she may benefit from following with outpatient pain clinic. She says she is [facility]. -Pt again requesting to see pain specialist. I have placed consult for pain team. I scheduled tylenol, added diclofenac gel to left knee. Reduced frequency of oxycodone to every 6 hours given she seems to be asking for it around the clock. I am concerned for opiate use disorder. Depression Anxiety PTSD Fibromyalgia Adjustment disorder -Assess prior to admission medications #Chronic anemia: Monitor. No evidence of bleeding. #Severe malnutrition in context of chronic illness: Present on admission. Nutrition consulted. HighKcal diet ordered per patient request. DVT Prophylaxis: Pneumatic Compression Devices Code Status: Full Code Medically Ready for Discharge: Anticipated in 2-4 Days Azar Umanzor MD Interval History No events. Asking to see pain team today. Vitals stable. She tells me that she is not able to see apain team as outpatient due to insurance. Modified pain regimen. Discussed tapering opiates as willnot be prescribing these on discharge. Kidney function still improving and K+ stable. Been off IVF o vernight. -Data reviewed today: I reviewed all new labs and imaging results over the last 24 hours. I personally reviewed Physical Exam Temp: 98.5 ??F (36.9 ??C) Temp src: Oral BP: 123/82 Pulse: 79 Resp: 16 SpO2: 97 % O2 Device: None (Room air) Vitals: 06/17/24 0104 06/18/24 0610 06/19/24 0504 Weight: 46 kg (101 lb 6.6 oz) 49.3 kg (108 lb 11.2 oz) 49.4 kg (108 lb 14.4 oz) Vital Signs with Ranges Temp: [98.1 ??F (36.7 ??C)-98.5 ??F (36.9 ??C)] 98.5 ??F (36.9 ??C) Pulse: [79-89] 79 Resp: [16] 16 BP: (123-139)/(82-92) 123/82 SpO2: [97 %-100 %] 97 % I/O last 3 completed shifts: In: 966 [I.V.:966] Out: - Constitutional: Thin, cachectic. NAD. HEENT: Normocephalic. MMM, No elevation of JVD noted. Respiratory: Nl WOB, Clear bilaterally, No wheezes or crackles Cardiovascular: Regular, no murmur GI: BS+, NT, ND Skin/Integumen: WWP. Thin extremities. Neuro: CNII-XII intact. Moves all extremities. No tremor. A&Ox3. Medications Current Facility-Administered Medications Medication Dose Route Frequency Provider Last Rate Last Admin 0.9% sodium chloride + KCl 20 mEq/L infusion Intravenous Continuous Mike Teran MD 100 mL/hr at 06/18/24 1208 Restarted at 06/18/24 1208 Current Facility-Administered Medications Medication Dose Route Frequency Provider Last Rate Last Admin acetaminophen (TYLENOL) tablet 975 mg 975 mg Oral TID Azar Umanzor MD diclofenac (VOLTAREN) 1 % topical gel 4 g 4 g Topical 4x Daily Azar Umanzor MD gabapentin (NEURONTIN) capsule 300 mg 300 mg Oral BID Fabian Chowdary MD 300 mg at 06/19/24 0843 gabapentin (NEURONTIN) capsule 400 mg 400 mg Oral At Bedtime Fabian Chowdary MD 400 mg at 06/18/24 2207 potassium chloride deanne ER (KLOR-CON M20) CR tablet 40 mEq 40 mEq Oral TID Mike Teran MD 40 mEq at 06/19/24 0838 senna-docusate (SENOKOT-S/PERICOLACE) 8.6-50 MG per tablet 1 tablet 1 tablet Oral BID Azar Umanzor MD sodium chloride (PF) 0.9% PF flush 3 mL 3 mL Intracatheter Q8H Fabian Chowdary MD 3 mL at 06/19/24 0625 Data Recent Labs Lab 06/19/24 0636 06/18/24 1904 06/18/24 0608 06/17/24 1011 06/17/24 0652 06/16/24 1931 06/16/24 1753 WBC -- -- 6.6 -- 6.4 -- 6.3 HGB -- -- 7.7* -- 7.9* -- 9.5* MCV -- -- 85 -- 82 -- 80 PLT -- -- 270 -- 268 -- 340 NA 144 145 143 < > 140 < > -- POTASSIUM 4.2 3.9 4.2 < > 3.1* < > -- CHLORIDE 104 101 103 < > 89* < > -- CO2 28 33* 33* < > 40* < > -- BUN 25.8* 27.3* 31.3* < > 36.2* < > -- CR 1.91* 2.12* 2.29* < > 3.11* < > -- ANIONGAP 12 11 7 < > 11 < > -- ELKE 9.9 9.9 9.9 < > 10.9* < > -- GLC 122* 77 77 < > 92 < > -- < > = values in this interval not displayed. No results found for this or any previous visit (from the past 24 hours). TING ADVISER * Mike Teran MD - 06/18/2024 12:04 PM CST Renal Medicine Progress Note Assessment/Plan: 34 y.o woman with severe recurrent multiple electrolytes abnormalities and BARBARA. # Severe recurrent acute kidney injuries due to volume depletion. -improved with IVF # Severe recurrent hypokalemia: GI vs kidney loss (Gitelaman, type 3 Barter..etc..? ) -mostly normal Mg level -BP is not particularly -Urine Chloride were low (<20) in May and February and not particular high at other times. -urine electrolytes were not check at the time of admission # Hypercalcemia: Improving # Hypophosphatemia: getting replacmeent # PTSD/Depression. # Eating disorder? Plan: # She has received > 200 meq of KCl in the last 24 hrs. Potassium normalized and hypochloremic metabolic alkalosis is responding nicely. TTKG is high at 10, but difficult to interpret with high doses of potassium replacement. Now that her K normalized and creatinine improved, consider stopping all potassium replacement in the next 1-2 days and monitor. IF she then develops hypokalemia, then do24 hrs urine collection and check random urine electrolytes including urine chloride. I advised herto not leave AMA again so that we could help her team complete the work-up. She agreed. # Okay to finished this last bag of IVF and then stop. I discussed with RN in person. # Decrease KCL 40 live qid to tid # Renal panel ordered for 1900 Interval History: Per RN, patient ordered double trays of food. Patient wants to know why are fluid is stopped. No N/V/D Osm 300 Urin osm 307 Urine Na 79 Urine K 34.5 Urine Chloride 27 Urine phos TTKG 10 Medications and Allergies: Current Facility-Administered Medications Medication Dose Route Frequency Provider Last Rate Last Admin gabapentin (NEURONTIN) capsule 300 mg 300 mg Oral BID Fabian Chowdary MD 300 mg at 06/18/24 0819 gabapentin (NEURONTIN) capsule 400 mg 400 mg Oral At Bedtime Fabian Chowdary MD 400 mg at 06/17/24 2225 potassium chloride deanne ER (KLOR-CON M20) CR tablet 40 mEq 40 mEq Oral TID Mike Teran MD sodium chloride (PF) 0.9% PF flush 3 mL 3 mL Intracatheter Q8H Fabian Chowdary MD Allergies Allergen Reactions Iron Sucrose Anxiety and [...] Exam: Vitals were reviewed , Blood pressure 116/75, pulse 82, temperature 98 ??F (36.7 ??C), temperature source Oral, resp. rate 16, height 1.702 m (5' 7), weight 49.3 kg (108 lb 11.2 oz), SpO2 97%, not currently . Wt Readings from Last 3 Encounters: 06/18/24 49.3 kg (108 lb 11.2 oz) 05/31/24 50.2 kg (110 lb 10.7 oz) 05/15/24 47.2 kg (104 lb 1.6 oz) Intake/Output Summary (Last 24 hours) at 06/18/2024 1205 Last data filed at 06/18/2024 0608 Gross per 24 hour Intake 2889 ml Output -- Net 2889 ml GENERAL APPEARANCE: NAD HEENT: Teeth are rotten RESP: lungs cta b c good efforts, no crackles, rhonchi or wheezes CV: RRR ABDOMEN: sucken EXTREMITIES/SKIN: no edema. Little muscle mass. Data: CBC RESULTS: Recent Labs Lab 06/18/24 0608 06/17/24 0652 06/16/24 1753 WBC 6.6 6.4 6.3 RBC 2.83* 2.91* 3.48* HGB 7.7* 7.9* 9.5* HCT 24.0* 23.9* 27.8* PLT 270 268 340 Basic Metabolic Panel: Recent Labs Lab 06/18/24 0608 06/17/24 2214 06/17/24 1928 06/17/24 1348 06/17/24 1011 06/17/24 0652 06/17/24 0133 06/16/24 1931 NA 143 142 -- 141 -- 140 -- 138 POTASSIUM 4.2 4.0 4.3 3.3* 3.2* 3.0* 3.1* < > 2.0* CHLORIDE 103 97* -- 91* -- 89* -- 73* CO2 33* 34* -- 35* -- 40* -- 50* BUN 31.3* 32.1* -- 33.5* -- 36.2* -- 43.0* CR 2.29* 2.59* -- 2.70* -- 3.11* -- 3.59* GLC 77 130* -- 80 -- 92 -- 101* ELKE 9.9 10.6* -- 11.4* -- 10.9* -- 13.2* < > = values in this interval not displayed. INRNo lab results found in last 7 days. Attestation: I have reviewed today's relevant vital signs, notes, medications, labs and imaging. Mike Teran MD [facility] - Nephrology Office phone :[phone] Pager: [phone] TING ADVISER * Azar Umanzor MD - 06/18/2024 10:28 AM CST [facility] Hospitalist Progress Note Assessment & Plan Lorraine Klein is a 34 year old female admitted on 06/16/2024 with acute kidney injury, hypokalemia, and metabolic alkalosis. She has history of Gitelman's syndrome, hypokalemia, metabolic alkalosis, chronic kidney disease, recurrent acute kidney injury, multiple admissions for all of the prior, depression, anxiety, PTSD, adjustment disorder, fibromyalgia, irritable bowel syndrome, small bowel obstruction, osteoporosis, gastroparesis, autonomic disorder, and opioid use disorder with seeking behaviors who presents with recurrent abnormal labs. Patient has had at least 10 admissions since November 2023 for same issue of renal dysfunction, electrolyte imbalance in setting of Gitelman's. There has also been concern of bulimia given the patient's recurrent severe electrolyte abnormalities, low BMI, teeth erosions etc. however patient denies thisand has refused psych eval in past. She was recently hospitalized here from 05/29 through 05/31 with acute kidney injury, hyponatremia, hypokalemia, hypercalcemia, hypermagnesemia, and metabolic alkalosis. She was treated with IV fluids and electrolyte replacement. She left AGAINST MEDICAL ADVICE. During that admission she was complaining of acute on chronic pain and repeatedly requesting IV pain medications despite reassuring imaging. #Gitelman's syndrome. Recurrent hypokalemia, severe. Recurrent hypercalcemia. Recurrent acute kidney injury on chronic kidney disease. Current metabolic alkalosis: She has been taking potassium chloride 80 mEq 3 times daily. Her automotive paint technician reduce her Aldactone from 50 mg at night to 25 mg at night. She recently followed up with her [place] automotive paint technician and had labs obtained. She was contacted today and told to go to the ER because of severe hypokalemia. She reports that she fell on 06/14 and has had left knee pain. She also reports 3 to 4 days of diarrhea, maybe 3-4 times per day. She has been able to eat or drink as she normally does. She reports that she has been able to take her medicati ons, however. She also drinks 2 liquid IVs per day which she says for the most part she has been able to continue to do. Baseline creatinine seems to be around 1.2-1.4. -Emergency department evaluation showed stable vital signs. Laboratory evaluation showed sodium 138, potassium 2.0, chloride 73, bicarb 50, BUN 43, creatinine 3.59 (creatinines have been all over theplace between 1.6 and 3.4 in the last year), calcium 13.2, magnesium 2.4, and hemoglobin 9.5. Left knee x-ray was unremarkable. ECG showed QT of 612. Patient was started on IV fluid and given potassium. She was given oxycodone 5 mg for knee pain -IVF stopped today by nephrology. Defer to them. Likely need to see what renal function does with her own PO intake alone. -High K+ replacement protocol. Continue her home K+ 40 meq TID. Mag replacement. Phosphorus replacement. -Monitor BMP BID as electrolytes better and renal function showing improvement on 06/18. Need to determine how much potassium she needs at steady state. -Nephrology consulted. -Hold aldactone. #Prolonged QT: Electrolytes better on 06/18. Recheck Qtc. Monitor on tele. #Diarrhea: Check enteric panel to rule out infectious cause #Knee contusion. Chronic opioid use disorder: XR negative for fx. She had CT during prior admissionthat was negative for fx. She has no evidence of swelling on exam. She has tenderness along medial aspect of joint but unclear if volitional. I am able to passively bend/extend but she groins in pain. MRI of knee without major ligamentous injury or fracture. -AVOIDING IV PAIN MEDS. Discussed at length with patient, bedside nurse. Oral meds available. -With her fibromyalgia she may benefit from following with outpatient pain clinic. She says [facility] -Tylenol and oxycodone as needed for pain. Home gabapentin. Depression Anxiety PTSD Fibromyalgia Adjustment disorder -Assess prior to admission medications #Chronic anemia: Monitor. No evidence of bleeding. #Severe malnutrition in context of chronic illness: Present on admission. Nutrition consulted. HighKcal diet ordered per patient request. DVT Prophylaxis: Pneumatic Compression Devices Code Status: Full Code Medically Ready for Discharge: Anticipated in 2-4 Days. Need to determine potassium needs at steadystate per nephrology. Azar Umanzor MD Interval History No events. When I enter room patient is getting ready for walk. Does not seem to be having worsening pain and lifting her left leg and flexing her left knee to remove something off her foot without issue. Eating/drinking. IVF stopped today by nephrology. -Data reviewed today: I reviewed all new labs and imaging results over the last 24 hours. I personally reviewed Physical Exam Temp: 98 ??F (36.7 ??C) Temp src: Oral BP: 116/75 Pulse: 82 Resp: 16 SpO2: 97 % O2 Device: None (Room air) Vitals: 06/16/24 1659 06/17/24 0104 06/18/24 0610 Weight: 48.1 kg (106 lb 0.7 oz) 46 kg (101 lb 6.6 oz) 49.3 kg (108 lb 11.2 oz) Vital Signs with Ranges Temp: [98 ??F (36.7 ??C)-98.1 ??F (36.7 ??C)] 98 ??F (36.7 ??C) Pulse: [82-94] 82 Resp: [16] 16 BP: (107-130)/(51-91) 116/75 SpO2: [97 %-99 %] 97 % I/O last 3 completed shifts: In: 2889 [I.V.:2889] Out: - Constitutional: Thin, cachectic. NAD. HEENT: Normocephalic. MMM, No elevation of JVD noted. Respiratory: Nl WOB, Clear bilaterally, No wheezes or crackles Cardiovascular: Regular, no murmur GI: BS+, NT, ND Skin/Integumen: WWP. Thin extremities. Neuro: CNII-XII intact. Moves all extremities. No tremor. A&Ox3. Medications Current Facility-Administered Medications Medication Dose Route Frequency Provider Last Rate Last Admin [Held by provider] 0.9% sodium chloride + KCl 20 mEq/L infusion Intravenous Continuous Fabian Chowdary MD Stopped at 06/18/24 0856 Current Facility-Administered Medications Medication Dose Route Frequency Provider Last Rate Last Admin gabapentin (NEURONTIN) capsule 300 mg 300 mg Oral BID Fabian Chowdary MD 300 mg at 06/18/24 0819 gabapentin (NEURONTIN) capsule 400 mg 400 mg Oral At Bedtime Fabian Chowdary MD 400 mg at 06/17/24 2225 potassium chloride deanne ER (KLOR-CON M20) CR tablet 40 mEq 40 mEq Oral TID Mike Teran MD sodium chloride (PF) 0.9% PF flush 3 mL 3 mL Intracatheter Q8H Fabian Chowdary MD Data Recent Labs Lab 06/18/24 0608 06/17/24 2214 06/17/24 1928 06/17/24 1348 06/17/24 1011 06/17/24 0652 06/16/24 1931 06/16/24 1753 WBC 6.6 -- -- -- -- 6.4 -- 6.3 HGB 7.7* -- -- -- -- 7.9* -- 9.5* MCV 85 -- -- -- -- 82 -- 80 PLT 270 -- -- -- -- 268 -- 340 NA 143 142 -- 141 -- 140 < > -- POTASSIUM 4.2 4.0 4.3 3.3* 3.2* < > 3.1* < > -- CHLORIDE 103 97* -- 91* -- 89* < > -- CO2 33* 34* -- 35* -- 40* < > -- BUN 31.3* 32.1* -- 33.5* -- 36.2* < > -- CR 2.29* 2.59* -- 2.70* -- 3.11* < > -- ANIONGAP 7 11 -- 15 -- 11 < > -- ELKE 9.9 10.6* -- 11.4* -- 10.9* < > -- GLC 77 130* -- 80 -- 92 < > -- < > = values in this interval not displayed. Recent Results (from the past 24 hours) MR Knee Left w/o Contrast Narrative EXAMINATION: MRI of the left knee without [...] mechanism is intact and normal in appearance. Impression IMPRESSION: 1. Subtle soft tissue edema superficial to an intact tibial collateral ligament. Correlate clinically for a low-grade sprain. 2. Nonspecific focus of bone marrow edema along the posterior aspect of the lateral femoral condyle. Correlate for bone contusion. 3. The anterior and posterior cruciate ligaments, lateral supporting structures, and bilateral menisci are intact. JESSICA EDWARD MD TING ADVISER * Azar Umanzor MD - 06/17/2024 9:05 AM CST [facility] Hospitalist Progress Note Assessment & Plan Lorraine Klein is a 34 year old female admitted on 06/16/2024 with acute kidney injury, hypokalemia, and metabolic alkalosis. She has history of Gitelman's syndrome, hypokalemia, metabolic alkalosis, chronic kidney disease, recurrent acute kidney injury, multiple admissions for all of the prior, depression, anxiety, PTSD, adjustment disorder, fibromyalgia, irritable bowel syndrome, small bowel obstruction, osteoporosis, gastroparesis, autonomic disorder, and opioid use disorder with seeking behaviors who presents with recurrent abnormal labs. Patient has had at least 10 admissions since November 2023 for same issue of renal dysfunction, electrolyte imbalance in setting of Gitelman's. There has also been concern of bulimia given the patient's recurrent severe electrolyte abnormalities, low BMI, teeth erosions etc. however patient denies thisand has refused psych eval in past. She was recently hospitalized here from 05/29 through 05/31 with acute kidney injury, hyponatremia, hypokalemia, hypercalcemia, hypermagnesemia, and metabolic alkalosis. She was treated with IV fluids and electrolyte replacement. She left AGAINST MEDICAL ADVICE. During that admission she was complaining of acute on chronic pain and repeatedly requesting IV pain medications despite reassuring imaging. #Gitelman's syndrome. Recurrent hypokalemia, severe. Recurrent hypercalcemia. Recurrent acute kidney injury on chronic kidney disease. Current metabolic alkalosis: She has been taking potassium chloride 80 mEq 3 times daily. Her automotive paint technician reduce her Aldactone from 50 mg at night to 25 mg at night. She recently followed up with her [employer] automotive paint technician and had labs obtained. She was contacted today and told to go to the ER because of severe hypokalemia. She reports that she fell on 06/14 and has had left knee pain. She also reports 3 to 4 days of diarrhea, maybe 3-4 times per day. She has been able to eat or drink as she normally does. She reports that she has been able to take her medicati ons, however. She also drinks 2 liquid IVs per day which she says for the most part she has been able to continue to do. Baseline creatinine seems to be around 1.2-1.4. -Emergency department evaluation showed stable vital signs. Laboratory evaluation showed sodium 138, potassium 2.0, chloride 73, bicarb 50, BUN 43, creatinine 3.59 (creatinines have been all over theplace between 1.6 and 3.4 in the last year), calcium 13.2, magnesium 2.4, and hemoglobin 9.5. Left knee x-ray was unremarkable. ECG showed QT of 612. Patient was started on IV fluid and given potassium. She was given oxycodone 5 mg for knee pain -Normal saline with 20 mill colons of potassium per liter at 100 mL/h -High K+ replacement protocol. Continue her home K+ 40 meq QID. Mag replacement. Phosphorus replacement. -Monitor BMP every 8 hours -Nephrology consulted. -Hold aldactone. #Prolonged QT -Repeat ECG once electrolytes are improved. Likely on 06/18. Monitor on tele. #Diarrhea -Check enteric panel to rule out infectious cause #Knee contusion. Chronic opioid use disorder: XR negative for fx. She had CT during prior admissionthat was negative for fx. She has no evidence of swelling on exam. She has tenderness along medial aspect of joint but unclear if volitional. I am able to passively bend/extend but she groins in pain. -Will check MRI of left knee to definitively r/o fracture, ligamentous injury, etc. -AVOIDING IV PAIN MEDS. Discussed at length with patient, bedside nurse. Oral meds available. -With her fibromyalgia she may benefit from following with outpatient pain clinic. She says she is [facility] -Tylenol and oxycodone as needed for pain. Home gabapentin. Addendum: Discussed MRI results with patients. No indication for IV pain meds. When I entered room she was on her phone and in no distress. Adjusted her diet to high kcal diet per patient request. Depression Anxiety PTSD Fibromyalgia Adjustment disorder -Assess prior to admission medications #Chronic anemia: Monitor. No evidence of bleeding. #Severe malnutrition in context of chronic illness: Present on admission. Nutrition consulted. DVT Prophylaxis: Pneumatic Compression Devices Code Status: Full Code Medically Ready for Discharge: Anticipated in 2-4 Days. High risk of leaving AMA again. Azar Umanzor MD Interval History Still complaining of left knee pain. Fell several days ago. She has no bruise on her knee. No CP, palpitations. She follows with nephrology at [facility]. -Data reviewed today: I reviewed all new labs and imaging results over the last 24 hours. I personally reviewed Physical Exam Temp: 98.4 ??F (36.9 ??C) Temp src: Oral BP: (!) 128/92 Pulse: 71 Resp: 20 SpO2: 96 % O2 Device: None (Room air) Vitals: 06/16/24 1659 06/17/24 0104 Weight: 48.1 kg (106 lb 0.7 oz) 46 kg (101 lb 6.6 oz) Vital Signs with Ranges Temp: [97.3 ??F (36.3 ??C)-98.4 ??F (36.9 ??C)] 98.4 ??F (36.9 ??C) Pulse: [70-89] 71 Resp: [6-20] 20 BP: (127-150)/(88-115) 128/92 SpO2: [88 %-100 %] 96 % No intake/output data recorded. Constitutional: Thin, cachectic. NAD. Eating bfast. HEENT: Normocephalic. MMM, No elevation of JVD noted. Respiratory: Nl WOB, Clear bilaterally, No wheezes or crackles Cardiovascular: Regular, no murmur GI: BS+, NT, ND Skin/Integumen: WWP. Thin extremities. Left knee without any overlying bruising. No swelling relative to right. Point tenderness along medial aspect of knee joint but unclear if volitional. Able to passively flex and extend joint but patient grimacing. Neuro: CNII-XII intact. Moves all extremities. No tremor. A&Ox3. Medications Current Facility-Administered Medications Medication Dose Route Frequency Provider Last Rate Last Admin 0.9% sodium chloride + KCl 20 mEq/L infusion Intravenous Continuous Fabian Chowdary MD 100 mL/hrat 06/17/24 0108 Rate Verify at 06/17/24 0108 Current Facility-Administered Medications Medication Dose Route Frequency Provider Last Rate Last Admin gabapentin (NEURONTIN) capsule 100 mg 100 mg Oral At Bedtime Fabian Chowdary MD gabapentin (NEURONTIN) capsule 300 mg 300 mg Oral TID Fabian Chowdary MD potassium & sodium phosphates (NEUTRA-PHOS) Packet 1 packet 1 packet Oral or Feeding Tube Q4H Lorraine Mcclellan DO 1 packet at 06/17/24 0834 potassium chloride 10 mEq in 100 mL sterile water infusion 10 mEq Intravenous Q1H Lorraine Mcclellan DO 100 mL/hr at 06/17/24 0858 10 mEq at 06/17/24 0858 potassium chloride deanne ER (KLOR-CON M20) CR tablet 40 mEq 40 mEq Oral 4x Daily Fabian Chowdary MD 40 mEq at 06/17/24 0834 sodium chloride (PF) 0.9% PF flush 3 mL 3 mL Intracatheter Q8H Fabian Chowdary MD Data Recent Labs Lab 06/17/24 0652 06/17/24 0133 06/16/24 1931 06/16/24 1753 WBC 6.4 -- -- 6.3 HGB 7.9* -- -- 9.5* MCV 82 -- -- 80 PLT 268 -- -- 340 NA 140 -- 138 -- POTASSIUM 3.1* 2.4* 2.0* -- CHLORIDE 89* -- 73* -- CO2 40* -- 50* -- BUN 36.2* -- 43.0* -- CR 3.11* -- 3.59* -- ANIONGAP 11 -- 15 -- ELKE 10.9* -- 13.2* -- GLC 92 -- 101* -- Recent Results (from the past 24 hours) XR Knee Left 3 Views Narrative EXAM: XR KNEE LEFT 3 VIEWS LOCATION: [facility] DATE: 06/16/2024 INDICATION: fall, medial pain COMPARISON: None. Impression IMPRESSION: Normal left knee joint spacing and alignment. No sizable effusion. Negative for acute fracture. TING ADVISER TING ADVISER TING ADVISER * China Flor MD - 06/17/2024 2:34 AM CST Cross Cover Called for K 2.4, was 2.0 and rec'd 40 meq po and 10 meq IV in ER To receive po 40 meq now and 20 meq in 2 hours then recheck. Agree with protocol and will give additional KCL 10 meq IV now TING ADVISER documented in this encounter H&P Notes * Fabian Chowdary MD - 06/16/2024 10:40 PM CST [facility] History and Physical - Hospitalist Service Date of Admission: 06/16/2024 Assessment & Plan Lorraine Klein is a 34 year old female admitted on 06/16/2024 with acute kidney injury, hypokalemia, and metabolic alkalosis. She has history of Gitelman's syndrome, hypokalemia, metabolic alkalosis, chronic kidney disease, recurrent acute kidney injury, multiple admissions for all of the prior, depression, anxiety, PTSD, adjustment disorder, fibromyalgia, irritable bowel syndrome, small bowel obstruction, osteoporosis, gastroparesis, autonomic disorder, and chronic opioid use with tolerance with opioid use contract. Is also been mention of bulimia given the patient's recurrent severe electrolyte abnormalities, low BMI, etc. however patient denies. She was recently hospitalized here from 05/29 through 05/31 with acute kidney injury, hyponatremia, hypokalemia, hypercalcemia, hypermagnesemia, and metabolic alkalosis. She was treated with IV fluids and electrolyte replacement. She left AGAINST MEDICAL ADVICE. She has been taking potassium chloride 80 mEq 3 times daily. Her automotive paint technician reduce her Aldactone from 50 mg at night to 25 mg at night. She recently followed up with her [place] automotive paint technician and had labs obtained. She was contacted today and told to go to the ER because of severe hypokalemia. She reports that she fell on 06/14 and has had left knee pain since. She also repo rts 3 to 4 days of diarrhea, maybe 3-4 times per day. She has been able to eat or drink as she normally does. She reports that she has been able to take her medications, however. She also drinks 2 liquid IVs per day which she says for the most part she has been able to continue to do. Emergency department evaluation showed stable vital signs. Laboratory evaluation showed sodium 138,potassium 2.0, chloride 73, bicarb 50, BUN 43, creatinine 3.59 (creatinines have been all over the place between 1.6 and 3.4 in the last year), calcium 13.2, magnesium 2.4, and hemoglobin 9.5. Left knee x-ray was unremarkable. ECG showed QT of 612. Patient was started on IV fluid and given potassium. She was given oxycodone 5 mg for knee pain. I was asked to admit her for further cares. Problem list: Gitelman's syndrome Recurrent hypokalemia, severe Recurrent hypercalcemia Recurrent acute kidney injury on chronic kidney disease Current metabolic alkalosis -Admit as inpatient to telemetry -Normal saline with 20 mill colons of potassium per liter at 100 mL/h -Daily BMP -Potassium chloride 40 mill equivalents 4 times daily -Potassium replacement protocol -Magnesium replacement protocol -Phosphorus replacement protocol -Consult nephrology -Hold [employer] aldactone with BARBARA Prolonged QT -Repeat ECG once electrolytes are improved. Diarrhea -Check enteric panel to rule out infectious cause Knee contusion -Tylenol and oxycodone as needed for pain Depression Anxiety PTSD Fibromyalgia Adjustment disorder -Assess prior to admission medications once reconciled Diet: Combination Diet Regular Diet Adult DVT Prophylaxis: Pneumatic Compression Devices [place] Catheter: Not present Lines: None Cardiac Monitoring: ACTIVE order. Indication: Electrolyte Imbalance (24 hours)- Magnesium <1.3 mg/ml; Potassium < =2.8 or > 5.5 mg/ml Code Status: Full Code Clinically Significant Risk Factors Present on Admission # Hypokalemia: Lowest K = 2 mmol/L in last 2 days, will replace as needed # Hypochloremia: Lowest Cl = 73 mmol/L in last 2 days, will monitor as appropriate # Hypercalcemia: Highest Ca = 13.2 mg/dL in last 2 days, will monitor as appropriate # Acute Kidney Injury, unspecified: based on a >150% or 0.3 mg/dL increase in last creatinine compared to past 90 day average, will monitor renal function # Anemia: based on hgb <11 # Cachexia: Estimated body mass index is 16.61 kg/m?? as calculated from the following: Height as of this encounter: 1.702 m (5' 7). Weight as of this encounter: 48.1 kg (106 lb 0.7 oz). Disposition Plan Medically Ready for Discharge: Anticipated in 2-4 Days Fabian Chowdary MD Hospitalist Service [facility] Securely message with [employer] (more info) Text page via [facility] Paging/Directory Chief Complaint Abnormal labs History is obtained from the patient, Dr. Madison, and the medical record History of Present Illness Lorraine Klein is a 34 year old female admitted on 06/16/2024 with acute kidney injury, hypokalemia, and metabolic alkalosis. She has history of Gitelman's syndrome, hypokalemia, metabolic alkalosis, chronic kidney disease, recurrent acute kidney injury, multiple admissions for all of the prior, depression, anxiety, PTSD, adjustment disorder, fibromyalgia, irritable bowel syndrome, small bowel obstruction, osteoporosis, gastroparesis, autonomic disorder, and chronic opioid use with tolerance with opioid use contract. Is also been mention of bulimia given the patient's recurrent severe electrolyte abnormalities, low BMI, etc. however patient denies. She was recently hospitalized here from 05/29 through 05/31 with acute kidney injury, hyponatremia, hypokalemia, hypercalcemia, hypermagnesemia, and metabolic alkalosis. She was treated with IV fluids and electrolyte replacement. She left AGAINST MEDICAL ADVICE. She has been taking potassium chloride 80 mEq 3 times daily. Her automotive paint technician reduce her Aldactone from 50 mg at night to 25 mg at night. She recently followed up with her Florencia automotive paint technician and had labs obtained. She was contacted today and told to go to the ER because of severe hypokalemia. She reports that she fell on 06/14 and has had left knee pain since. She also repo rts 3 to 4 days of diarrhea, maybe 3-4 times per day. She has been able to eat or drink as she normally does. She reports that she has been able to take her medications, however. She also drinks 2 liquid IVs per day which she says for the most part she has been able to continue to do. Emergency department evaluation showed stable vital signs. Laboratory evaluation showed sodium 138,potassium 2.0, chloride 73, bicarb 50, BUN 43, creatinine 3.59 (creatinines have been all over the place between 1.6 and 3.4 in the last year), calcium 13.2, magnesium 2.4, and hemoglobin 9.5. Left knee x-ray was unremarkable. ECG showed QT of 612. Patient was started on IV fluid and given potassium. She was given oxycodone 5 mg for knee pain. I was asked to admit her for further cares. Past Medical History Past Medical History: Diagnosis [...] hours as needed for nausea or vomiting. oxyCODONE (ROXICODONE) 5 MG tablet Yes No Sig: Take 5 mg by mouth every 6 hours as needed for severe pain. potassium chloride deanne ER (KLOR-CON M20) 20 MEQ CR tablet Yes No Sig: Take 40 mEq by mouth 4 times daily. senna-docusate (SENOKOT-S/PERICOLACE) 8.6-50 MG tablet No No Sig: Take 1 tablet by mouth 2 times daily as needed for constipation. spironolactone (ALDACTONE) 50 MG tablet Yes No Sig: Take 50 mg by mouth at bedtime. traMADol (ULTRAM) 50 MG tablet Yes No [...] rate. Iron Other reaction(s): Other (see comments) Ondansetron Other (See Comments) Patient refused to take because it can make QT long and has history of long QT. Physical Exam Vital Signs: Temp: 97.3 ??F (36.3 ??C) Temp src: Temporal BP: 130/88 Pulse: 76 Resp: 19 SpO2: 98 % O2 Device: None (Room air) Weight: 106 lbs .66 oz GENERAL: Pleasant and cooperative. No acute distress. EYES: Pupils equal and round. No scleral erythema or icterus. ENT: External ears are normal without deformity. Posterior oropharynx is without erythem, swelling,or exudate. NECK: Supple. No masses or swelling. No tenderness. Thyroid is normal without mass or tenderness. CHEST: Clear to auscultation. Normal breath sounds. No retractions. CV: Regular rate and rhythm. No JVD. Pulses normal. ABDOMEN: Bowel sounds present. No tenderness. No masses or hernia. EXTREMETIES: No clubbing, cyanosis, or ischemia. SKIN: Warm and dry to touch. No wounds or rashes. NEUROLOGIC: Strength and sensation are normal. Deep tendon reflexes are normal. Cranial nerves are normal. Medical Decision Making 60 MINUTES SPENT BY ME on the date of service doing chart review, history, exam, documentation & further activities per the note. Data I have personally reviewed the following data over the past 24 hrs: 6.3 \ 9.5 (L) / 340 138 73 (L) 43.0 (H) / 101 (H) 2.0 (LL) 50 (HH) 3.59 (H) \ Trop: <6 BNP: N/A Imaging results reviewed over the past 24 hrs: Recent Results (from the past 24 hours) XR Knee Left 3 Views Narrative EXAM: XR KNEE LEFT 3 VIEWS LOCATION: [facility] DATE: 06/16/2024 INDICATION: fall, medial pain COMPARISON: None. Impression IMPRESSION: Normal left knee joint spacing and alignment. No sizable effusion. Negative for acute fracture. Recent Labs Lab 06/16/24 1931 06/16/24 1753 WBC -- 6.3 HGB -- 9.5* MCV -- 80 PLT -- 340 NA 138 -- POTASSIUM 2.0* -- CHLORIDE 73* -- CO2 50* -- BUN 43.0* -- CR 3.59* -- ANIONGAP 15 -- ELKE 13.2* -- GLC 101* -- TING ADVISER TING ADVISER TING ADVISER documented in this encounter Consult Notes * Karen Palacio APRN TELECOM FIELD TECHNICIAN - 06/19/2024 4:15 PM CSTAssociated Order(s): PAIN MANAGEMENT ADULT IP CONSULT Images from the original note were not included. [facility] ACUTE PAIN SERVICE CONSULTATION [facility] [employer] Web Console Karen Date of Admission: 06/16/2024 Date of Consult (When I saw the patient): 06/19/24 Assessment/Plan: Assessment/Plan: Lorraine Klein is a 34 year old female who was admitted on 06/16/2024. Pain team was asked to see the patient for acute right knee pain following a mechanical fall downstairs on 06/14/2024. The request for the consult was generated by the patient. 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 Admitted for acute kidney injury, hypokalemia and metabolic alkalosis. History of Gitelman's syndrome, chronic kidney disease, prolonged QTc depression, anxiety, PTSD, adjustment disorder, fibromyalgia, irritable bowel syndrome, smallbowel obstruction, osteoporosis, gastroparesis, autoimmune disorder, chronic opioid use with tolerance and opioid use disorder she also has a mentioned history of bulimia, low BMI's however patient denies. In regard to prolonged QTc on admission this was prolonged at 612 ms/min with electrolyte correction it is now 422 ms/min. Her most recent hospitalization was 05/29 for acute kidney injury hyponatremia hypokalemia hypocalcemia hypomagnesia metabolic alkalosis. She left AGAINST MEDICAL ADVICE with the last admission. The patient does not smoke. She reports her pain around the left knee more anterior laterally and medially the posterior. She has difficulty with weightbearing noting hobbling and favoring right leg. She is tried and feels ineffective most conservative therapies however finds heat more effective than ice. The patient is willing to try these modalities again written in her pain plan below and will evaluate effectiveness within the next 24 hours. At no time did the patient ask for IV pain medication. [place] PELLET POST INSPECTOR noted for small quantities of oxycodone about 12 a month, hydrocodone last prescribed this past February and March of small quantities, tramadol 50 mg regularly prescribed at 2/day Last prescription tramadol 06/04/2024 #60 tabs Last prescription oxycodone 5 mg 05/27/2024 #12 tabs Opioid Induced Respiratory Depression Risk Assessment: Moderate complex medical issues, chronic kidney disease stage IV psychiatric conditions that overlay treatment, high medication reliance particularly on opioid therapy CrCl 32.7 mg/mL The patient's home MME was 8-15 mg daily. In the last 24 hours, patient has utilized 10 mg (4) of PO oxycodone, 0 mg of IV, for an MME 60 mg (yesterday MME was -- mg). PLAN: 1) Pain is consistent with musculoskeletal in the setting of acute strain/sprain left knee. Consider the following differentials have been ruled out fracture, effusion. Multimodal Medication Therapy Topical: Diclofenac gel with menthol gel 3 times daily, lidocaine patch as needed NSAID'S: Unable to tolerate Steroids: Not indicated Muscle Relaxants: Methocarbamol 750 mg 4 times daily as needed Adjuvants: Acetaminophen 975 every 8 hours, hydroxyzine 25 to 50 mg every 6 hours as needed, gabapentin increase by 100 mg twice daily to dose of 400 3 times daily Antidepressants/anxiolytics: None Opioids: Continue oxycodone 5 to 10 mg every 6 hours as needed. Hopeful to reduce to 5 mg every 6 hours as needed tomorrow IV Pain medication: No IV opiate medication indicated Non-medication interventions: Ice, Heat, Rest, Physical Therapy consider for use of cane and consider Ayan wrap left knee, elevation, rest Constipation Prophylaxis: Scheduled and prn: Bisacodyl Suppository, Senna- docusate, and Miralax -Opioid prescriber has been primary care, Hospital medicine on discharge Discharge Recommendations - We recommend prescribing the following at the time of discharge: Prefer no opiates at discharge other than her regular tramadol prescription provided by her PCP If not done here advise physical therapy left knee as outpatient Gabapentin 400 mg 3 times daily or resume outpatient dose of 300 twice daily 400 at at bedtime if she finds slight increase dosing not effective Intranasal naloxone not recommended. Follow up primary care. Acute pain service will continue to follow will sign off in 1 to 2 days Disposition: Home Prescribing at discharge: Hospital medicine History of Present Illness (HPI): Lorraine Klein is a 34 year old female with a past medical history noted above and presents with left knee pain following a fall on 06/14/2024. She is admitted for metabolic electrolyte and mineral derangement with acute on chronic kidney in setting of Gitelman's syndrome the patient reports pain that is located in left knee lateral and medial and radiates to medial calf and stops at the ankle. Alleviating factors include rest, heat, elevation, immobilizing but these are for short periods of time and exacerbates include ambulation or other weightbearing and medications wearing off. Current pain is rated at 7/10 and goal is 4/10. The patient has a na??ve to low opioid tolerance. Opioid induced side effects including sedation respiratory suppression, nausea, and constipation are not present. Discussed multimodal interventions as well as other than systemic pharmacologic treatments for acute and chronic pain. Review of medical record/Summary of labs and care everywhere as part of comprehensive review. Past pain treatments have include various opiates, gabapentin, other multimodal, UDS Amphetamine Qual Urine Date Value Ref Range [...] negative barbiturate is less than 200 ng/mL. Cannabinoids Qual Urine Date Value Ref Range [...] negative PCP is less than 25 ng/mL. Medical History has a past medical history of Anemia, Depressive disorder, Fibromyalgia, Gastroparesis, Gitelman syndrome (10/28/2017), IBS (irritable bowel syndrome), and SBO (small bowel obstruction) (H). She has no past medical history of Arthritis, Congestive heart failure, unspecified, COPD (chronic obstructive pulmonary disease) (H), Coronary artery disease, CVA (cerebral infarction), Diabetes (H), History of blood transfusion, Hypertension, Thyroid disease, or Uncomplicated asthma. Surgical History has a past surgical history that includes appendectomy (1999); Excise Lesion Axilla (Left); Laparoscopy diagnostic (general) (2018); Esophagoscopy, gastroscopy, duodenoscopy (EGD), combined (Left, 11/03/2019); and IR Chest Port Placement > 5 Yrs of Age (01/04/2016). Allergies Allergies Allergen Reactions Iron Sucrose Anxiety [...] long and has history of long QT. Current Home Medications Prior to Admission medications Medication Sig Start Date End Date Taking? Authorizing Provider albuterol (PROAIR HFA/PROVENTIL HFA/VENTOLIN HFA) 108 (90 Base) MCG/ACT inhaler Inhale 1-2 puffs into the lungs every 4 hours as needed for shortness of breath, wheezing or cough. Yes Unknown, Entered By History ferrous sulfate 325 (65 Fe) MG TBEC EC tablet Take 325 mg by mouth 3 times daily (with meals). Withfood or snack Yes Reported, Patient gabapentin (NEURONTIN) 100 MG capsule Take 100 mg by mouth at bedtime. with 300 mg capsule Yes Unknown, Entered By History gabapentin (NEURONTIN) 300 MG capsule Take 300 mg by mouth 3 times daily. Am, Lunch, Bed-time Yes Unknown, Entered By History hydrOXYzine HCl (ATARAX) 25 MG tablet Take 1-2 tablets (25-50 mg) by mouth every 6 hours as needed for other (adjuvant pain). 03/12/24 Yes Sheila Ferrer, magnesium oxide (MAG-OX) 400 MG tablet Take 400 mg by mouth 3 times daily (with meals). 03/06/17 YesReported, Patient methocarbamol (ROBAXIN) 750 MG tablet Take 750 mg by mouth 4 times daily as needed for muscle spasms. Yes Unknown, Entered By History multivitamin, therapeutic (THERA-VIT) TABS Take 1 tablet by mouth daily Yes Reported, Patient ondansetron (ZOFRAN) 4 MG tablet Take 4 mg by mouth every 8 hours as needed for nausea or vomiting.Yes Unknown, Entered By History potassium chloride deanne ER (KLOR-CON M20) 20 MEQ CR tablet Take 80 mEq by mouth 3 times daily. Yes Unknown, Entered By History senna-docusate (SENOKOT-S/PERICOLACE) 8.6-50 MG tablet Take 1 tablet by mouth 2 times daily as needed for constipation. 03/23/24 Yes Mireya Franz PA-C spironolactone (ALDACTONE) 50 MG tablet Take 50 mg by mouth at bedtime. Yes Unknown, Entered By History traMADol (ULTRAM) 50 MG tablet Take 50 mg by mouth 2 times daily as needed for severe pain. Yes Unknown, Entered By History Social History Reviewed, and she reports that she has never smoked. She has never used smokeless tobacco. She reports that she does not drink alcohol and does not use drugs. Family History- Reviewed care everywhere to find family history Nothing relevant to pain consult Reviewed, and family history includes Breast Cancer in her maternal grandmother; Colon Cancer in her paternal uncle; Hypothyroidism in her mother; Juvenile idiopathic arthritis in her sister; Other -See Comments in her father. Review of Systems Complete ROS reviewed, unless noted , all other systems reviewed (with patient) and all others found to be negative. Objective: Vitals: B/P: 155/94, T: 98, P: 93, R: 16 Weight: 108 lbs 14.4 oz Body mass index is 17.06 kg/m??. Physical Exam: General Appearance: Alert, cooperative, mild distress, appears stated age, grooming good is thin inappearance with low BMI Patient is pleasant Head: Normocephalic, without obvious abnormality, atraumatic Eyes: Pupils are normal position and size conjunctivae clear, no drainage. EOMIs intact ENT/Throat: Lips and mouth are moist Lymph/Neck: Supple, symmetrical, trachea midline, no adenopathy, thyroid: not enlarged, symmetric Lungs: Clear to auscultation bilaterally, respirations unlabored Chest Wall: No tenderness or deformity Cardiovascular/Heart: Regular rate and rhythm, S1, S2, no edema Abdomen: Soft, non-tender, bowel sounds active all four quadrants, no masses, no organomegaly Musculoskeletal: Extremities normal, atraumatic Incision none Skin: Skin color good, lesions none Neurologic Affect: Alert and oriented X 3, Moves all 4 extremities, favors left knee, hobbles with ambulation Flat, anxious, abberant pain behaviors No Imaging Reviewed Personally By Myself Results for orders placed or performed during the hospital encounter of 06/16/24 XR Knee Left 3 Views Impression IMPRESSION: Normal left knee joint spacing and alignment. No sizable effusion. Negative for acute fracture. MR Knee Left w/o Contrast Impression IMPRESSION: 1. Subtle soft tissue edema superficial to an intact tibial collateral ligament. Correlate clinically for a low-grade sprain. 2. Nonspecific focus of bone marrow edema along the posterior aspect of the lateral femoral condyle. Correlate for bone contusion. 3. The anterior and posterior cruciate ligaments, lateral supporting structures, and bilateral menisci are intact. JESSICA EDWARD MD Labs Reviewed Personally By Myself Sodium Date Value Ref Range Status 06/19/2024 144 135 - 145 mmol/L Final 11/22/2020 141 133 - 144 mmol/L Final Potassium Date Value Ref Range Status 06/19/2024 4.2 3.4 - 5.3 mmol/L Final 07/22/2021 3.5 3.4 - 5.3 mmol/L Final 11/22/2020 4.2 3.4 - 5.3 mmol/L Final Potassium POCT Date Value Ref Range Status 01/31/2023 <2.0 (LL) 3.4 - 5.3 mmol/L Final Comment: --- Chloride Date Value Ref Range Status 06/19/2024 104 98 - 107 mmol/L Final 07/22/2021 110 [...] Dioxide (CO2) Date Value Ref Range Status 06/19/2024 28 22 - 29 mmol/L Final 07/22/2021 27 20 - 32 mmol/L Final Anion Gap Date Value Ref Range Status 06/19/2024 12 7 - 15 mmol/L Final 07/22/2021 3 3 - 14 mmol/L Final 11/22/2020 2 (L) 3 - 14 mmol/L Final Glucose Date Value Ref Range Status 06/19/2024 122 (H) 70 - 99 mg/dL Final 07/22/2021 106 (H) 70 - 99 mg/dL Final 11/22/2020 82 70 - 99 mg/dL Final GLUCOSE BY METER POCT Date Value Ref Range Status 02/01/2023 115 (H) 70 - 99 mg/dL Final Glucose Whole Blood POCT Date Value Ref Range Status 01/31/2023 98 70 - 99 mg/dL Final Comment: --- Urea Nitrogen Date Value Ref Range Status 06/19/2024 25.8 (H) 6.0 - 20.0 mg/dL Final 07/22/2021 13 7 - 30 mg/dL Final 11/22/2020 20 7 - 30 mg/dL Final UREA NITROGEN POCT Date Value Ref Range Status 01/31/2023 47 (H) 7 - 30 mg/dL Final Comment: --- Creatinine Date Value Ref Range Status 06/19/2024 1.91 (H) 0.51 - 0.95 mg/dL Final 11/22/2020 0.80 0.52 - 1.04 mg/dL Final GFR Estimate Date Value Ref Range Status 06/19/2024 35 (L) >60 mL/min/1.73m2 Final Comment: eGFR calculated using 2020 CKD-EPI equation. 11/22/2020 >90 >60 mL/min/[1.73_m2] Final Comment: Non GFR Calc Starting 06/11/2018, serum creatinine based estimated GFR (eGFR) will be calculated using the Chronic Kidney Disease Epidemiology Collaboration (CKD-EPI) equation. Calcium Date Value Ref Range Status 06/19/2024 9.9 8.8 - 10.4 mg/dL Final Comment: Reference intervals for this test were updated on 01/08/2024 to reflect our healthy population more accurately. There may be differences in the flagging of prior results with similar values performed with this method. Those prior results can be interpreted in the context of the updated reference intervals. 11/22/2020 7.6 (L) 8.5 - 10.1 mg/dL Final Labs Imaging and Notes Reviewed : Reviewed I have personally reviewed pertinent notes, labs, tests,and radiologic report and imaging in patient's chart. yes Total time spent 40 minutes with greater than 50% in consultation, education and coordination of care. Also discussed with RN and Hospital Medicine Service. I discussed and educated the pain plan with the patient regarding: multimodal pain approach, medications as listed above, and educated on tapering off as pain improves. Treatment plan includes: multimodal pain approach, Hospital Medicine Service for medical management, nephrology, nutrition. Elements of Medical Decision Making as described above. Acute or chronic illness or injury or surgery. High risk therapy including opioids, high risk drug therapy including oral and/or parenteral controlled substances. Please see A&P for additional details of medical decision making. Patient is understanding of the plan. All questions and concerns addressed to patient's satisfaction. Karen Palacio APRN,JONI, ACHPN, PGMT- Acute Pain Team ( [facility], [facility], [facility]) 8-4:30 after 3:30 contact primary team No weekend coverage Securely message with the [employer] Console (learn more here) TING ADVISER * Mirela Gomez LICSW - 06/18/2024 9:59 AM CSTAssociated Order(s): CARE MANAGEMENT / SOCIAL WORK IP CONSULT Care Management Initial Consult General Information Assessment completed with: Patient, VM-chart review, Patient Type of CM/SW Visit: Initial Assessment Primary Care Provider verified and updated as needed: No Readmission within the last 30 days: previous discharge plan unsuccessful Reason for Consult: discharge planning Advance Care Planning: Communication Assessment Patient's communication style: spoken language (Bur[place]ian or Bilingual) Hearing Difficulty or Deaf: no Wear Glasses or Blind: yes Cognitive Cognitive/Neuro/Behavioral: WDL Living Environment: People in home: alone Current living Arrangements: town home Able to return to prior arrangements: yes Family/Social Support: Care provided by: self Provides care for: no one Support system: Description of Support System: Current Resources: Patient receiving home care services: No Community Resources: None Equipment currently used at home: none Supplies currently used at home: None Employment/Financial: Employment Status: disabled, employed part-time Financial Concerns: Referral to Financial Worker: No Does the patient's insurance plan have a 3 day qualifying hospital stay waiver? No Lifestyle & Psychosocial Needs: Social Drivers of Health Food Insecurity: Low Risk (06/17/2024) Food Insecurity Within the past 12 months, did you worry that your food would run out before you got money to buy more?: No Within the past 12 months, did the food you bought just not last and you didn???t have money to getmore?: No Depression: At risk (10/22/2023) Received from [facility] PHQ-2 PHQ-2 TOTAL SCORE: 3 Housing Stability: Low Risk (06/17/2024) Housing Stability Do you have housing? : Yes Are you worried about losing your housing?: No Recent Concern: Housing Stability - High Risk (05/29/2024) Housing Stability Do you have housing? : No Are you worried about losing your housing?: No Tobacco Use: Low Risk (06/13/2024) Received from [facility] Patient History Smoking Tobacco Use: Never Smokeless Tobacco Use: Never Passive Exposure: Not on file Financial Resource Strain: Low Risk (06/17/2024) Financial Resource Strain Within the past 12 months, have you or your family members you live with been unable to get utilities (heat, electricity) when it was really needed?: No Alcohol Use: Not At Risk (04/07/2021) Received from [facility], [facility] Frequency of Alcohol Consumption: Never Average Number of Drinks: Not on file Frequency of Binge Drinking: Not on file Transportation Needs: Low Risk (06/17/2024) Transportation Needs Within the past 12 months, has lack of transportation kept you from medical appointments, getting your medicines, non-medical meetings or appointments, work, or from getting things that you need?: No Physical Activity: Sufficiently Active (04/07/2021) Received from [facility], [facility] Exercise Vital Sign Days of Exercise per Week: 6 days Minutes of Exercise per Session: 90 min Interpersonal Safety: Low Risk (06/17/2024) Interpersonal Safety [...] No Stress Concern Present (04/07/2021) Received from [facility], [facility] [place] [facility] - Occupational Stress Questionnaire Feeling of Stress : Only a little Social Connections: Socially Integrated (02/29/2024) Received from [email or web address] Social Connections Do you often feel lonely or isolated from those around you?: 0 Health Literacy: Not on file Functional Status: Prior to admission patient needed assistance: Dependent ADLs:: Independent Mental Health Status: Mental Health Status: No Current Concerns Chemical Dependency Status: Chemical Dependency Status: No Current Concerns Values/Beliefs: Spiritual, Cultural Beliefs, Oriental Orthodox Practices, Values that affect care: Discussed ???Partnership in Safe Discharge Planning??? document with patient/family: No Care Management Discharge Note Discharge Date: 06/18/2024 Discharge Disposition: Home Discharge Services: None Discharge DME: None Discharge Transportation: Private pay costs discussed: Not applicable Does the patient's insurance plan have a 3 day qualifying hospital stay waiver? No PAS Confirmation Code: Patient/family educated on Medicare website which has current facility and service quality ratings: Education Provided on the Discharge Plan: Persons Notified of Discharge Plans: Patient Patient/Family in Agreement with the Plan: yes Handoff Referral Completed: No, handoff not indicated or clinically appropriate Additional Information: Patient has a high URR. Met with patient at bedside. She was sitting up in bed. Verified that patient is still living in [place]. Patient has Medicare Part A only. She has applied for MA 4 months ago but her application is still pending at [facility]. She has an Florencia ROSE who checks on the application every few weeks. It has been stressful. She would like a [employer] application. Sent message to . Patient is inquiring about gas resources. SW suggested looking into a bus pass or medical cabs onceher MA is approved. Patient drove self to the hospital. No other discharge needs at this time. CORIN Charles, [facility] Emergency Room Toll Booth Operator Please contact the SW on the floor in which the patient is staying for any questions or concerns TING ADVISER * Jacki Zuniga, RD - 06/17/2024 3:23 PM CSTAssociated Order(s): NUTRITION SERVICES ADULT IP CONSULT CLINICAL NUTRITION SERVICES - ASSESSMENT NOTE Recommendations Ordered by Registered Dietitian (RD): - Encourage adequate meal ordering - okay to order multiple trays per meal period. Patient noted todecline oral nutrition supplements in the past. - Calorie counts started per provider. MALNUTRITION: % Weight Loss: > 10% in 6 months (severe malnutrition) % Intake: </= 75% for >/= 1 month, predicted given down trending weight Subcutaneous Fat Loss: mild-moderate global losses (per previous RD notes) Muscle Loss: mild-moderate global losses (per previous RD notes) Fluid Retention: None noted Malnutrition Diagnosis: Severe malnutrition In Context of: Chronic illness or disease Environmental or social circumstances REASON FOR ASSESSMENT Lorraine Klein is a 34 year old female seen by Registered Dietitian for Provider Order - malnutrition. Lorraine Klein admitted for acute kidney injury, hypokalemia, and metabolic alkalosis. PMH: Gitelman's syndrome, hypokalemia, metabolic alkalosis, chronic kidney disease, recurrent acutekidney injury, multiple admissions for all of the prior, depression, anxiety, PTSD, adjustment disorder, fibromyalgia, irritable bowel syndrome, small bowel obstruction, osteoporosis, gastroparesis, autonomic disorder, and opioid use disorder with seeking behaviors -- Patient has had at least 10 admissions since November 2023 for same issue of renal dysfunction, electrolyte imbalance in setting of Gitelman's. There has also been concern of bulimia given the patient's recurrent severe electrolyte abnormalities, low BMI, teeth erosions etc. however patient denies this and has refused psych eval in past. NUTRITION HISTORY Information obtained from chart review. Will obtain nutrition history as able. Patient is familiar to me an other [facility] dietitians. She has been educated on small frequent mealsand snacks previously. She has met moderate malnutrition previously. Per chart notes: Pt has been taking potassium chloride 80 mEq 3 times daily. She also reports 3 to 4 days of diarrhea, maybe 3-4 times per day. Reports nausea without vomiting since Sunday. She notes she been able to eat or drink as she normally does. She also drinks 2 liquid IVs per day. She says she was drinking a lot of fluid and was trying to eat more potassium rich food. Food Allergies/Intolerances: NKFA CURRENT NUTRITION ORDERS Diet Order: Regular Current Intake/Tolerance: No intakes noted d/t limited admission. Labs: reviewed; K 3.3 (L), BUN 33.5, creatinine 2.70, phos 1.8 Medications: reviewed; potassium and sodium phosphates, potassium chloride, IVF + KCl Skin: no edema or pressure injuries noted I/Os: nothing documented ANTHROPOMETRICS Height: 5' 7 Weight: 101 lbs 6.59 oz Body mass index is 15.88 kg/m??. IBW: 135 lbs %IBW: 75% Weight History: 26% weight loss in 7 months Wt Readings from Last 10 Encounters: 06/17/24 46 kg (101 lb 6.6 oz) 05/31/24 50.2 kg (110 lb 10.7 oz) 05/15/24 47.2 kg (104 lb 1.6 oz) 04/23/24 48.1 kg (106 lb) 04/02/24 48.7 kg (107 lb 4.8 oz) 03/20/24 47.9 kg (105 lb 11.2 oz) 03/12/24 47.8 kg (105 lb 6.4 oz) 02/01/23 57.2 kg (126 lb 1.6 oz) 11/04/22 62.6 kg (137 lb 14.4 oz) 09/11/22 59 kg (130 lb) ASSESSED NUTRITION NEEDS PER APPROVED PRACTICE GUIDELINES: Dosing Weight 46 kg Estimated Energy Needs: 30-35 Kcal/Kg Justification: repletion Estimated Protein Needs: 1.2-1.5 g pro/Kg Justification: Repletion Estimated Fluid Needs: 1 mL/Kcal Justification: maintenance or per provider pending fluid status NUTRITION DIAGNOSIS: Inadequate oral intake related to nausea as evidenced by evidence of altered electrolyte labs, weight loss, chronically low BMI. NUTRITION INTERVENTIONS Recommendations / Nutrition Prescription See above. Implementation Nutrition education: will provide at follow up on 06/19 Calorie counts Nutrition Goals Consume 75-100% of nutritionally adequate meals/supplements 4-6x daily Maintain weight >46 kg MONITORING AND EVALUATION: Progress towards goals will be monitored and evaluated per protocol and Practice Guidelines Jacki Zuniga MS, RD, LD Clinical Dietitian II Emy Message Group: Dietitian [Trevor] Office Pagers: 3rd floor/ICU: [phone] All other floors: [phone] Weekend/holiday: [phone] TING ADVISER * Mike Teran MD - 06/17/2024 8:43 AM CSTAssociated Order(s): NEPHROLOGY IP CONSULT RENAL CONSULTATION NOTE REFERRING MD: Fabian Chowdary MD REASON FOR CONSULTATION: BARBARA, hypokalemia, Gitleman's syndrome HPI: 34 yo woman with PTSD and depression, who was admitted again for severe electrolytes abnormalities and recurrent volume depletion. I did patient's consult back in March. Dr. Devine and Dr. Freeman did the consult in Apr and May. I reviewed their notes. She reviewed Dr. Benavides's, on 06/13/2024 and 03/2024 Patient with recurrent severe electrolytes abnormalities, and the question is whether she lost potassium through the GI trach such as vomiting vs. Gitelman's syndrome Patient received ~ 180 meq KCl oral + IV at least so far since admission. I reviewed notes from ER (Dr. Madison) and IM (Dr. Chowdary) Pt says started to feel nauseous last Sunday. She says she developed diarrhea ~ 3 bms daily since Sunday. She denies vomiting. She says she was drinking a lot of fluid and was trying to eat more potassium rich food. She says she was taking 80 meq KCl alone her Mg. She says she takes aldactone 25 mg daily. ROS: A complete review of systems was [...] 100 mg 100 mg Oral At Bedtime Fabian Chowdary MD gabapentin (NEURONTIN) capsule 300 mg 300 mg Oral TID Fabian Chowdary MD potassium & sodium phosphates (NEUTRA-PHOS) Packet 1 packet 1 packet Oral or Feeding Tube Q4H Lorraine Mcclellan DO 1 packet at 06/17/24 0834 potassium chloride 10 mEq in 100 mL sterile water infusion 10 mEq Intravenous Q1H Lorraine Mcclellan DO potassium chloride deanne ER (KLOR-CON M20) CR tablet 40 mEq 40 mEq Oral 4x Daily Fabian Chowdary MD 40 mEq at 06/17/24 0834 sodium chloride (PF) 0.9% PF flush 3 mL 3 mL Intracatheter Q8H Fabian Chowdary MD ALLERGIES: Allergies as of 06/16/2024 - Reviewed 06/16/2024 Allergen Reaction Noted Iron sucrose Anxiety and Hives 09/23/2017 Duloxetine Other (See Comments) 09/22/2017 Duloxetine hcl 03/07/2018 Ferric carboxymaltose Unknown and Other (See Comments) 11/07/2021 Iron 06/06/2020 Ondansetron Other (See Comments) 04/29/2023 FH: Family [...] Physical Activity: Sufficiently Active (04/07/2021) [facility] from [facility], [facility] Exercise Vital Sign Days of Exercise per Week: 6 days Minutes of Exercise per Session: 90 min Stress: No Stress Concern Present (04/07/2021) Received from [facility], [facility] [place] [facility] - Occupational Stress Questionnaire Feeling of Stress : Only a little Social Connections: Socially Integrated (02/29/2024) Received from [facility] Social Connections Do you often feel lonely [...] your housing?: No PHYSICAL EXAM: BP (!) 128/92 (BP Location: Right arm) Pulse 71 Temp 98.4 ??F (36.9 ??C) (Oral) Resp 20 Ht 1.702 m (5' 7) Wt 46 kg (101 lb 6.6 oz) SpO2 96% BMI 15.88 kg/m?? GENERAL: NAD HEENT: Normocephalic. No gross abnormalities. Pupils equal. MMM. Teeth are pretty bad. CV: RRR RESP: CTAB GI: Abdomen sucken. Soft. MUSCULOSKELETAL: extremities nl - no gross deformities noted. No edema SKIN: no suspicious lesions or rashes, dry to touch NEURO: awake, alert and conversing. PSYCH: cooperative, avoidance. LYMPH: No palpable ant/post cervicaly LABS: CBC RESULTS: Recent Labs Lab 06/17/24 0652 06/16/24 1753 WBC 6.4 6.3 RBC 2.91* 3.48* HGB 7.9* 9.5* HCT 23.9* 27.8* PLT 268 340 BMP RESULTS: Recent Labs Lab 06/17/24 0652 06/17/24 0133 06/16/24 1931 NA 140 -- 138 POTASSIUM 3.1* 2.4* 2.0* CHLORIDE 89* -- 73* CO2 40* -- 50* BUN 36.2* -- 43.0* CR 3.11* -- 3.59* GLC 92 -- 101* ELKE 10.9* -- 13.2* INRNo lab results found in last 7 days. DIAGNOSTICS: Reviewed A/P: 34 y.o woman with severe recurrent multiple electrolytes abnormalities and BARBARA. # Severe recurrent acute kidney injuries due to volume depletion. -improving with IVF # Severe recurrent hypokalemia: GI vs kidney loss (Gitelama, type 3 Barter..etc..? ) -mostly normal Mg level -BP is not particularly -Urine Chloride were low (<20) in May and February and not particular high at other times. -urine electrolytes were not check at the time of admission # Hypercalcemia: Improving # Hypophosphatemia: getting replacmeent # PTSD/Depression. # Eating disorder? Plan: # Continue IVF and replacement of electrolytes. Will see how much potassium she needs when she is at a steady state. Will send 24-hrs urine collection again when she is at steady state # Check urine electrolytes, urine and serum osmolalities # She agreed to stay until work-up is completed this time # Please document food intake closely Mike Teran MD [facility] - Nephrology Office Pager: [phone] TING ADVISER TING ADVISER documented in this encounter ED Notes * Molly Vera RN - 06/16/2024 9:42 PM CST [facility] ED Nurse Handoff Report ED Chief complaint: Abnormal Labs . ED Diagnosis: Final diagnoses: Hypokalemia Acute kidney injury (H) Allergies: Allergies Allergen Reactions Iron Sucrose Anxiety [...] rate. Iron Other reaction(s): Other (see comments) Ondansetron Other (See Comments) Patient refused to take because it can make QT long and has history of long QT. Code Status: Full Code Activity level - Baseline/Home: independent. Activity Level - Current: assist of 1. Lift room needed: No. Bariatric: No Managed Care Specialist Needed: No Isolation: No. Infection: Not Applicable. Respiratory status: Room air Vital Signs (within 30 minutes): Vitals: 06/16/24 1659 06/16/24 1900 06/16/24 2000 06/16/24 2100 BP: (!) 139/97 (!) 127/90 (!) 129/94 130/88 Pulse: 89 80 70 76 Resp: 18 (!) 8 19 Temp: 97.3 ??F (36.3 ??C) TempSrc: Temporal SpO2: 100% 100% 94% 98% Weight: 48.1 kg (106 lb 0.7 oz) Height: 1.702 m (5' 7) Cardiac Rhythm: , Pain level: Patient confused: No. Patient Falls Risk: nonskid shoes/slippers when out of bed, patient and family education, and mobility aid in reach. Elimination Status: Has voided Patient Report - Initial Complaint: Abnormal Labs. Focused Assessment: Pt is a 34 year old female with a history including Gitelman syndrome, CKD, hypokalemic alkalosis, hypercalcemia, hypochloremia, hypomagnesemia, and QT prolongation who presents to the ED for evaluation of abnormal labs. The patient had a routine lab draw at her nephrology appointment on 06/13 and was called about the results today. Her potassium was 2.6, calcium was 14, and creatinine was 4.26. She was told to come into the ED for further evaluation. She has been experiencing intermittent lightheadedness, weakness, shakiness, chest pain, and palpitations for the last 2 days. She is not currently on dialysis. Alongside this, she fell on ice on 06/14 and now has pain in her left medial knee. She tried taking oxycodone at home, but it provided incomplete relief. Denies ankle or hip pain. Abnormal Results: Labs Ordered and Resulted from Time of ED Arrival to Time of ED Departure BASIC METABOLIC PANEL - Abnormal Result Value Sodium 138 Potassium 2.0 (*) Chloride 73 (*) Carbon Dioxide (CO2) 50 (*) Anion Gap 15 Urea Nitrogen 43.0 (*) Creatinine 3.59 (*) GFR Estimate 16 (*) Calcium 13.2 (*) Glucose 101 (*) CBC WITH PLATELETS AND DIFFERENTIAL - Abnormal WBC Count 6.3 RBC Count 3.48 (*) Hemoglobin 9.5 (*) Hematocrit 27.8 (*) MCV 80 MCH 27.3 MCHC 34.2 RDW 14.0 Platelet Count 340 % Neutrophils 58 % Lymphocytes 29 % Monocytes 9 % Eosinophils 3 % Basophils 1 % Immature Granulocytes 1 NRBCs per 100 WBC 0 Absolute Neutrophils 3.6 Absolute Lymphocytes 1.8 Absolute Monocytes 0.6 Absolute Eosinophils 0.2 Absolute Basophils 0.1 Absolute Immature Granulocytes 0.0 Absolute NRBCs 0.0 MAGNESIUM - Abnormal Magnesium 2.4 (*) TROPONIN T, HIGH SENSITIVITY - Normal Troponin T, High Sensitivity <6 PHOSPHORUS - Normal Phosphorus 2.5 XR Knee Left 3 Views Final Result IMPRESSION: Normal left knee joint spacing and alignment. No sizable effusion. Negative for acute fracture. Treatments provided: See MAR Family Comments: None OBS brochure/video discussed/provided to patient: N/A ED Medications: Medications potassium chloride 10 mEq in 100 mL sterile water infusion (10 mEq Intravenous $New Bag 06/16/242125) oxyCODONE (ROXICODONE) tablet 5 mg (5 mg Oral $Given 06/16/241850) acetaminophen (TYLENOL) tablet 1,000 mg (1,000 mg Oral $Given 06/16/241849) oxyCODONE (ROXICODONE) tablet 5 mg (5 mg Oral $Given 06/16/241950) potassium chloride (KLOR-CON) Packet 40 mEq (40 mEq Oral $Given 06/16/242125) sodium chloride 0.9% BOLUS 1,000 mL (1,000 mLs Intravenous $New Bag 06/16/242122) Drips infusing: No For the majority of the shift this patient was Green. Interventions performed were N/A. Sepsis treatment initiated: No Cares/treatment/interventions/medications to be completed following ED care: See Order ED Nurse Name: Molly Vera RN 9:42 PM TING ADVISER * Jamil Madison MD - 06/16/2024 5:20 PM CST Emergency Department Note History of Present Illness Chief Complaint Abnormal Labs HPI Lorraine Klein is a 34 year old female with a history including Gitelman syndrome, CKD, hypokalemic alkalosis, hypercalcemia, hypochloremia, hypomagnesemia, and QT prolongation who presents to the ED for evaluation of abnormal labs. The patient had a routine lab draw at her nephrology appointment on 06/13 and was called about the results today. Her potassium was 2.6, calcium was 14, and creatinine was 4.26. She was told to come into the ED for further evaluation. She has been experiencing intermittent lightheadedness, weakness, shakiness, chest pain, and palpitations for the last 2 days. She is not currently on dialysis. Alongside this, she fell on ice on 06/14 and now has pain in her left medial knee. She tried taking oxycodone at home, but it provided incomplete relief. Denies ankleor hip pain. Independent Historian None Review of External Notes I reviewed patient's discharge summary from 05/31/2024 by Azar Umanzor MD, for hypokalemia, Gitelman disease, hypercalcemia, BARBARA, and alkalosis. 06/13/2024 lab results: STAT CK, Total: 110 IU/L Parathyroid hormone, intact: 41 pg/mL * Calcium: 13.9 mg/dL * Magnesium 2.4 mg/dL Vitamin D: 13 ng/mL * Phosphate: 3 mg/dL Ionized calcium: 6.6 mg/dL * Sodium: 138 mmol/L Potassium: 2.6 mmol/L Carbon dioxide: 44 mmol/L Glucose 85 mg/dL Calcium: 14.0 mg/dL Creatinine: 4.26 mg/dl * BUN/Creatinine ratio: 11 calc EGFR: 13 mL/min/1.73m2 * Urea Nitrogen (BUN): 46 mg/dL * Chloride: <80 mmol/L * Urine Osmolality: 247 mOsmol/kg Urine sodium: 43 mmol/L Urine Potassium 36.1 mmol/L Urine Chloride: <20 mmol/L Urine calcium: 6.3 mg/dL Urine protein quant: 24 mg/dL * Urine creat: 54.2 mg/dL * Urine prot/creat ratio: 0.4 * Past Medical History Medical History and Problem List Adjustment Disorder with mixed reaction Autonomic Disorder Bulimia Cachexia Stage 4 CKD Controlled Substance Agreement Signed IBS Opioid Mild Abuse Disorder Osteoporosis Major Depression Fibromyalgia DENICE PTSD Likely Gitelman Syndrome Hypokalemic Alkalosis Hypercalcemia Hypermagnesemia Umbilical Hernia Medications Albuterol Ferrous Sulfate Gabapentin Hydroxyzine HCI Magnesium Oxide Methocarbamol Ondansetron Oxycodone Senna-Docusate Sodium Chloride Spironolactone Tramadol Surgical History Appendectomy Exploratory Laparotomy Diagnostic Laparoscopy EGD Combined Excise Lesion Axilla, Left IR Chest Port Placement Physical Exam Patient Vitals for the past 24 hrs: BP Temp Temp src Pulse Resp SpO2 Height Weight 06/16/242099 130/88 -- -- 76 19 98 % -- -- 06/16/241999 (!) 129/94 -- -- 70 -- 94 % -- -- 06/16/24 1900 (!) 127/90 -- -- 80 (!) 8 100 % -- -- 06/16/24 1659 (!) 139/97 97.3 ??F (36.3 ??C) Temporal 89 18 100 % 1.702 m (5' 7) 48.1 kg (106 lb 0.7 oz) Physical Exam Constitutional: Alert, attentive, GCS 15 HENT: Nose: Nose normal. Mouth/Throat: Oropharynx is clear, mucous membranes are moist Eyes: EOM are normal. CV: regular rate and rhythm; no murmurs, rubs or gallups; 2+ DP and PT pulses, brisk distal cap refill Chest: Effort normal and breath sounds normal. GI: There is no tenderness. No distension. Normal bowel sounds MSK: Normal range of motion. Normal inspection to the left knee. Left medial joint line tenderness.No lateral joint line or patellar tenderness. No tenderness proximal or distal to the knee. No asymmetric erythema or warmth, no effusion Neurological: Alert, attentive 5/5 strength to the DF, PF, EHL and FHL motor functions; sensation intact to the DP, SP, T, S and Sdistributions Skin: Skin is warm and dry. Diagnostics Lab Results Labs Ordered and Resulted from Time of ED Arrival to Time of ED Departure BASIC METABOLIC PANEL - Abnormal Result Value Sodium 138 Potassium 2.0 (*) Chloride 73 (*) Carbon Dioxide (CO2) 50 (*) Anion Gap 15 Urea Nitrogen 43.0 (*) Creatinine 3.59 (*) GFR Estimate 16 (*) Calcium 13.2 (*) Glucose 101 (*) CBC WITH PLATELETS AND DIFFERENTIAL - Abnormal WBC Count 6.3 RBC Count 3.48 (*) Hemoglobin 9.5 (*) Hematocrit 27.8 (*) MCV 80 MCH 27.3 MCHC 34.2 RDW 14.0 Platelet Count 340 % Neutrophils 58 % Lymphocytes 29 % Monocytes 9 % Eosinophils 3 % Basophils 1 % Immature Granulocytes 1 NRBCs per 100 WBC 0 Absolute Neutrophils 3.6 Absolute Lymphocytes 1.8 Absolute Monocytes 0.6 Absolute Eosinophils 0.2 Absolute Basophils 0.1 Absolute Immature Granulocytes 0.0 Absolute NRBCs 0.0 MAGNESIUM - Abnormal Magnesium 2.4 (*) TROPONIN T, HIGH SENSITIVITY - Normal Troponin T, High Sensitivity <6 PHOSPHORUS - Normal Phosphorus 2.5 ENTERIC BACTERIA AND VIRUS PANEL BY PCR Imaging XR Knee Left 3 Views Final Result IMPRESSION: Normal left knee joint spacing and alignment. No sizable effusion. Negative for acute fracture. EKG ECG taken at 1740, ECG read at 174 Sinus rhythm Left ventricular hypertrophy with repolarization abnormality (Sokolow-Hernandez) Prolonged QT Abnormal ECG Rate 76 bpm. AR interval 132 ms. QRS duration 88 ms. QT/QTc 544/612 ms. P-R-T axes 63 84 69. Independent Interpretation No fracture on x-ray left knee ED Course Medications Administered Medications albuterol (PROVENTIL HFA/VENTOLIN HFA) inhaler (has no administration in time range) methocarbamol (ROBAXIN) tablet 750 mg (750 mg Oral $Given 06/16/242254) lidocaine 1 % 0.1-1 mL (has no [...] mg (has no administration in time range) 0.9% sodium chloride + KCl 20 mEq/L infusion (has no administration in time range) acetaminophen (TYLENOL) tablet 650 mg (has no administration in time range) Or acetaminophen (TYLENOL) Suppository 650 mg (has no administration in time range) oxyCODONE (ROXICODONE) tablet 5 mg (has no administration in time range) oxyCODONE (ROXICODONE) tablet 10 mg (10 mg Oral $Given 06/16/242254) melatonin tablet 5 mg (has no administration in time range) prochlorperazine (COMPAZINE) injection 10 mg (has no administration in time range) Or prochlorperazine (COMPAZINE) tablet 10 mg (has no administration in time range) potassium chloride deanne ER (KLOR-CON M20) CR tablet 40 mEq (has no administration in time range) oxyCODONE (ROXICODONE) tablet 5 mg (5 mg Oral $Given 06/16/241850) acetaminophen (TYLENOL) tablet 1,000 mg (1,000 mg Oral $Given 06/16/241849) oxyCODONE (ROXICODONE) tablet 5 mg (5 mg Oral $Given 06/16/241950) potassium chloride (KLOR-CON) Packet 40 mEq (40 mEq Oral $Given 06/16/242125) potassium chloride 10 mEq in 100 mL sterile water infusion (10 mEq Intravenous $New Bag 06/16/242125) sodium chloride 0.9% BOLUS 1,000 mL (1,000 mLs Intravenous $New Bag 06/16/242122) Discussion of Management Admitting Hospitalist, Fabian Chowdary MD ED Course ED Course as of 06/16/24 230SunJun 16, 2024 1730 I obtained history and examined the patient as noted above. [address] Fabian Chowdary, admitting hospitalist, regarding the patient's presentationand plan of care. Additional Documentation Social Determinants of Health: history of Bulimia negatively affects electrolyte abnormalities. Medical Decision Making / Diagnosis MDM Lorraine Klein is a 34 year old female with history of suspecting eating disorder, Gettleman syndrome, CKD, and recurrent hospitalizations for electrolyte derangements who presents referred from nephrology with hypokalemia. EKG shows prolonged QTc but no other concerning abnormality. Hypokalemia is validated today. Given severity, patient will be admitted for IV fluid rehydration given suspected dehydration due to vomiting as well as electrolyte replacement. Regarding her knee, there is no acute traumatic abnormality identified. She has had extensive workup for this recently including CT knee which is negative. No edema or other findings to suggest DVT. She is sufficiently stabilized for mission at this time. Disposition The patient was admitted to the hospital. Diagnosis ICD-10-CM 1. Hypokalemia E87.6 2. Acute kidney injury (H) N17.9 3. Knee injury, left, initial encounter S89.92XA Scribe Disclosure: I, Alec Melara, am serving as a scribe at 7:25 PM on 06/16/2024 to document services personally performed by Jamil Madison MD, based on my observations and the provider's statements to me. Jamil Madison MD 06/16/242307 TING ADVISER * Tony Houston RN - 06/16/2024 5:13 PM CST Bed: ED37 Expected date: Expected time: Means of arrival: Comments: K.S. TING ADVISER * Riya George RN - 06/16/2024 5:02 PM CST Presents to triage with c/o abnormal labs. Patient had routine labs drawn at her nephrology appointment on 06/13. She was called today and told to come to the ED right away for K 2.6, calcium 14, Co244, and ionized calcium of 6.6. Patient also states she has had intermittent chest pain and palpitations for the past 2 days. Has a known kidney disease but is not on dialysis currently. TING ADVISER * Elma Jalloh RN - 06/16/2024 5:01 PM CST Bed: ED14 Expected date: Expected time: Means of arrival: Comments: Triage SI TING ADVISER documented in this encounter Miscellaneous Notes * Plan of Care - Lele Obrien RN - 06/20/2024 5:57 AM CST For vital signs and complete assessments, please see documentation flowsheets. [id number] Pertinent assessments: Pt A&Ox4. On RA. Ind in room. Afebrile. Elevated DBP, other VSS. Denies nausea and SOB. Pain managed with po oxy, atarax, and robaxin prn. PIV saline locked. Major Shift Events: none Treatment Plan: Pain management. Monitor electrolytes. Discharge TBD. Bedside Nurse: Lele Obrien RN Problem: Adult Inpatient Plan of Care Goal: Plan of Care Review Description: The Plan of Care Review/Shift note should be completed every shift. The Outcome Evaluation is a brief statement about your assessment that the patient is improving, declining, or no change. This information will be displayed automatically on your shift note. Outcome: Progressing Flowsheets (Taken 06/20/2024 0555) Outcome Evaluation: Pain controlled with oxy, atarax & robaxin. PIV saline locked. Denies nausea & SOB. Plan of Care Reviewed With: patient Overall [...] Manage Fall Risk Recent Flowsheet Documentation Taken 06/20/2024199 by Lele Obrien RN Safety Promotion/Fall Prevention: clutter free environment maintained nonskid shoes/slippers when out of bed room near nurse's station room organization consistent safety round/check completed treat reversible contributory factors Intervention: Prevent Skin Injury Recent Flowsheet Documentation Taken 06/20/2024199 by Lele Obrien RN Body Position: position changed independently Intervention: Prevent and Manage VTE (Venous Thromboembolism) Risk Recent Flowsheet Documentation Taken 06/20/2024199 by Lele Obrien RN VTE Prevention/Management: SCDs off (sequential compression devices) Intervention: Prevent Infection Recent Flowsheet Documentation Taken 06/20/2024199 by Lele Obrien RN Infection Prevention: hand hygiene promoted rest/sleep promoted single patient room provided cohorting utilized Goal: Optimal Comfort and Wellbeing Outcome: Progressing Goal: Readiness for Transition of Care Outcome: Progressing Problem: Electrolyte Imbalance Goal: Electrolyte Balance Outcome: Progressing Problem: Pain Acute Goal: Optimal Pain Control and Function Outcome: Progressing Intervention: Prevent or Manage Pain Recent Flowsheet Documentation Taken 06/20/2024199 by Lele Obrien RN Medication Review/Management: medications reviewed Goal Outcome Evaluation: Plan of Care Reviewed With: patient Overall Patient Progress: no changeOverall Patient Progress: no change Outcome Evaluation: Pain controlled with oxy, atarax & robaxin. PIV saline locked. Denies nausea & SOB. TING ADVISER * Plan of Care - Sherwin Brito RN - 06/20/2024 12:55 AM CST [id number] Inpatient Progress Note: A & O X 4. No S/SX of respiratory distress. Lung sounds clear bilaterally to auscultation. Denies chills, shortness of breath, lightheadedness, nausea, vomit, or diarrhea. Bowel sounds present and active. Voiding spontaneously without difficulty. Independent in the room . PIV saline lock. On calories count. Admitting DX: Hypokalemia. Potassium replaced. On magnesium, phosphorous, and high potassium RN managed protocol. Scheduled Tylenol, Gabapentin, Voltaren gel, Menthol cream, prn Oxycodone, Robaxin , and Atarax available for pain management. C/O pain rating at 8, prn Oxycodone, Robaxin,and Atarax given X 1. Patient reported relief after prn pain medication given. Afebrile. Nephrology/ Pain team following. BP (!) 131/94 (BP Location: Right arm) Pulse 84 Temp 98.3 ??F (36.8 ??C) (Oral) Resp 18 Ht 1.702 m (5' 7) Wt 49.4 kg (108 lb 14.4 oz) SpO2 98% BMI 17.06 kg/m?? Problem: Adult Inpatient Plan of Care Goal: Plan of Care Review Description: The Plan of Care Review/Shift note should be completed every shift. The Outcome Evaluation is a brief statement about your assessment that the patient is improving, declining, or no change. This information will be displayed automatically on your shift note. Outcome: Progressing Flowsheets (Taken 06/19/20242299) Plan of Care Reviewed With: patient Goal: [...] Manage Fall Risk Recent Flowsheet Documentation Taken 06/19/20242149 by Sherwin Brito RN Safety Promotion/Fall Prevention: clutter free environment maintained room near nurse's station safety round/check completed Intervention: Prevent Skin Injury Recent Flowsheet Documentation Taken 06/19/20242149 by Sherwin Brito RN Body Position: position changed independently Intervention: Prevent and Manage VTE (Venous Thromboembolism) Risk Recent Flowsheet Documentation Taken 06/19/20242149 by Sherwin Brito RN VTE Prevention/Management: SCDs off (sequential compression devices) Intervention: Prevent Infection Recent Flowsheet Documentation Taken 06/19/20242149 by Sherwin Brito RN Infection Prevention: hand hygiene promoted rest/sleep promoted single patient room provided Goal: Optimal Comfort and Wellbeing Outcome: Progressing Intervention: Monitor Pain and Promote Comfort Recent Flowsheet Documentation Taken 06/19/20242047 by Sherwin Brito RN Pain Management Interventions: medication (see MAR) Goal: Readiness for Transition of Care Outcome: Progressing Problem: Electrolyte Imbalance Goal: Electrolyte Balance Outcome: Progressing Problem: Pain Acute Goal: Optimal Pain Control and Function Outcome: Progressing Intervention: Develop Pain Management Plan Recent Flowsheet Documentation Taken 06/19/20242047 by Sherwin Brito RN Pain Management Interventions: medication (see MAR) Intervention: Prevent or Manage Pain Recent Flowsheet Documentation Taken 06/19/20242149 by Sherwin Brito RN Medication Review/Management: medications reviewed Will continue to provide supportive cares. Sherwin Brito RN Plan of Care Reviewed With: patient TING ADVISER * Plan of Care - Alesha Gallardo RN - 06/19/2024 5:43 PM CST End of Shift Summary For vital signs and complete assessments, please see documentation flowsheets. Pertinent assessments: Pt A&O, on RA. C/O left knee pain 9/10 Oxycodone, Atarax, and Robaxin given q6h prn, scheduled gabapentin taken. Pain team consulted. Calorie count. Major Shift Events: Gabapentin increased, voltaren gel added/menthol added but declined by pt. Treatment Plan: K+/Mg/Phos protocol, pain management Bedside Nurse: Alesha Gallardo RN Goal Outcome Evaluation: Plan of Care Reviewed With: patient Overall Patient Progress: no changeOverall Patient Progress: no change Outcome Evaluation: PRN oxy, robaxin, atarax requested q6h for left knee pain. Problem: Adult Inpatient Plan of Care Goal: Plan of Care Review Description: The Plan of Care Review/Shift note should be completed every shift. The Outcome Evaluation is a brief statement about your assessment that the patient is improving, declining, or no change. This information will be displayed automatically on your shift note. Outcome: Progressing Flowsheets (Taken 06/19/2024 1743) Outcome Evaluation: PRN oxy, robaxin, atarax requested q6h for left knee pain. Plan of Care Reviewed With: patient [...] Manage Fall Risk Recent Flowsheet Documentation Taken 06/19/2024 09 by Alesha Gallardo RN Safety Promotion/Fall Prevention: clutter free environment maintained Intervention: Prevent Skin Injury Recent Flowsheet Documentation Taken 06/19/2024 0900 by Alesha Gallardo RN Body Position: position changed independently Intervention: Prevent and Manage VTE (Venous Thromboembolism) Risk Recent Flowsheet Documentation Taken 06/19/2024 0900 by Alesha Gallardo RN VTE Prevention/Management: SCDs off (sequential compression devices) Intervention: Prevent Infection Recent Flowsheet Documentation Taken 06/19/2024 0900 by Alesha Gallardo RN Infection Prevention: cohorting utilized Goal: Optimal Comfort and Wellbeing Outcome: Progressing Intervention: Monitor Pain and Promote Comfort Recent Flowsheet Documentation Taken 06/19/2024 1118 by Alesha Gallardo RN Pain Management Interventions: medication (see MAR) Goal: Readiness for Transition of Care Outcome: Progressing Problem: Electrolyte Imbalance Goal: Electrolyte Balance Outcome: Progressing Problem: Pain Acute Goal: Optimal Pain Control and Function Outcome: Progressing Intervention: Develop Pain Management Plan Recent Flowsheet Documentation Taken 06/19/2024 1118 by Alesha Gallardo RN Pain Management Interventions: medication (see MAR) Intervention: Prevent or Manage Pain Recent Flowsheet Documentation Taken 06/19/2024 0900 by Alesha Gallardo RN Medication Review/Management: medications reviewed TING ADVISER * Plan of Care - Lucia Cohen RN - 06/19/2024 5:24 AM CST Pertinent assessments: Pt A&O, on RA. C/O left knee pain 9/10 PRN Oxycodone, Atarax, and Robaxin given, schedule gabapentin taken, ice/heat applied Major Shift Events: tele discontinued Treatment Plan: K+/Mg/Phos protocol, pain management Problem: Adult Inpatient Plan of Care Goal: Plan of Care Review Description: The Plan of Care Review/Shift note should be completed every shift. The Outcome Evaluation is a brief statement about your assessment that the patient is improving, declining, or no change. This information will be displayed automatically on your shift note. Outcome: Progressing Flowsheets (Taken 06/19/2024 0523) Outcome Evaluation: on RA, continues to rate pain 9/10, PRN Oxycodone, Robaxin, and Atarax given, tele d/c Plan of Care Reviewed With: patient Overall [...] Manage Fall Risk Recent Flowsheet Documentation Taken 06/18/20242016 by Lucia Cohen RN Safety Promotion/Fall Prevention: clutter free environment maintained nonskid shoes/slippers when out of bed room near nurse's station safety round/check completed Intervention: Prevent Skin Injury Recent Flowsheet Documentation Taken 06/18/20242016 by Lucia Cohen RN Body Position: position changed independently supine, head elevated Intervention: Prevent and Manage VTE (Venous Thromboembolism) Risk Recent Flowsheet Documentation Taken 06/18/20242016 by Lucia Cohen RN VTE Prevention/Management: SCDs off (sequential compression devices) patient refused intervention Intervention: Prevent Infection Recent Flowsheet Documentation Taken 06/18/20242016 by Lucia Cohen RN Infection Prevention: cohorting utilized hand hygiene promoted single patient room provided rest/sleep promoted Goal: Optimal Comfort and Wellbeing Outcome: Progressing Intervention: Monitor Pain and Promote Comfort Recent Flowsheet Documentation Taken 06/18/20242206 by Lucia Cohen RN Pain Management Interventions: medication (see MAR) cold applied Taken 06/18/20242016 by Lucia Cohen RN Pain Management Interventions: (pain meds not due yet) distraction other (see comments) Goal: Readiness for Transition of Care Outcome: Progressing Problem: Electrolyte Imbalance Goal: Electrolyte Balance Outcome: Progressing Problem: Pain Acute Goal: Optimal Pain Control and Function Outcome: Progressing Intervention: Develop Pain Management Plan Recent Flowsheet Documentation Taken 06/18/20242206 by Lucia Cohen RN Pain Management Interventions: medication (see MAR) cold applied Taken 06/18/20242016 by Lucia Cohen RN Pain Management Interventions: (pain meds not due yet) distraction other (see comments) Intervention: Prevent or Manage Pain Recent Flowsheet Documentation Taken 06/18/20242016 by Lucia Cohen RN Medication Review/Management: medications reviewed Goal Outcome Evaluation: Plan of Care Reviewed With: patient Overall Patient Progress: no changeOverall Patient Progress: no change Outcome Evaluation: on RA, continues to rate pain 9/10, PRN Oxycodone, Robaxin, and Atarax given, tele d/c TING ADVISER * Plan of Care - Edith Cruz RN - 06/18/2024 6:45 PM CST Goal Outcome Evaluation: Pertinent assessments: Pt A&O x 4. VSS, on RA. Up independent in the room. Oxycodone, for pain given x3 this shift. Atarax given once. On tele monitoring. PIV infusing, SL when bag is complete. Major Shift Events: uneventful Treatment Plan: IVF, pain management, K+/Mg/Phos protocol, BMP q 8hrs Bedside Nurse: Edith Cruz RN Problem: Adult Inpatient Plan of Care Goal: Plan of Care Review Description: The Plan of Care Review/Shift note should be completed every shift. The Outcome Evaluation is a brief statement about your assessment that the patient is improving, declining, or no change. This information will be displayed automatically on your shift note. 06/18/20241844 by Edith Cruz RN Outcome: Progressing 06/18/20241844 by Edith Cruz RN Outcome: Progressing Goal: Patient-Specific Goal (Individualized) Description: You can add care plan individualizations to a care plan. Examples of Individualizationmight be: Parent requests to be called daily at 9am for status, I have a hard time hearing out of my right ear, or Do not touch me to wake me up as it startles me. 06/18/20241844 by Edith Cruz RN Outcome: Progressing 06/18/20241844 by Edith Cruz RN Outcome: Progressing Goal: Absence of Hospital-Acquired Illness or Injury 06/18/20241844 by Edith Cruz RN Outcome: Progressing 06/18/20241844 by Edith Cruz RN Outcome: Progressing Intervention: Identify and Manage Fall Risk Recent Flowsheet Documentation Taken 06/18/2024818 by Edith Cruz RN Safety Promotion/Fall Prevention: nonskid shoes/slippers when out of bed room near nurse's station safety round/check completed Intervention: Prevent Skin Injury Recent Flowsheet Documentation Taken 06/18/2024818 by Edith Cruz RN Body Position: position changed independently Intervention: Prevent and Manage VTE (Venous Thromboembolism) Risk Recent Flowsheet Documentation Taken 06/18/2024 08 by Edith Cruz RN VTE Prevention/Management: SCDs off (sequential compression devices) Intervention: Prevent Infection Recent Flowsheet Documentation Taken 06/18/2024 08 by Edith Cruz RN Infection Prevention: single patient room provided Goal: Optimal Comfort and Wellbeing 06/18/20241844 by Edith Cruz RN Outcome: Progressing 06/18/20241844 by Edith Cruz RN Outcome: Progressing Intervention: Monitor Pain and Promote Comfort Recent Flowsheet Documentation Taken 06/18/2024 0942 by Edith Cruz RN Pain Management Interventions: medication (see MAR) Taken 06/18/2024 08 by Edith Cruz RN Pain Management Interventions: medication (see MAR) Goal: Readiness for Transition of Care 06/18/20241844 by Edith Cruz RN Outcome: Progressing 06/18/20241844 by Edith Cruz RN Outcome: Progressing Problem: Electrolyte Imbalance Goal: Electrolyte Balance 06/18/20241844 by Edith Cruz RN Outcome: Progressing 06/18/20241844 by Edith Cruz RN Outcome: Progressing Problem: Pain Acute Goal: Optimal Pain Control and Function 06/18/20241844 by Edith Cruz RN Outcome: Progressing 06/18/20241844 by Edith Cruz RN Outcome: Progressing Intervention: Develop Pain Management Plan Recent Flowsheet Documentation Taken 06/18/2024 0942 by Edith Cruz RN Pain Management Interventions: medication (see MAR) Taken 06/18/2024 08 by Edith Cruz RN Pain Management Interventions: medication (see MAR) Intervention: Prevent or Manage Pain Recent Flowsheet Documentation Taken 06/18/2024 08 by Edith Cruz RN Medication Review/Management: medications reviewed TING ADVISER * Plan of Care - Mirela Gomez, [facility] - 06/18/2024 9:59 AM CST Goal Outcome Evaluation: Plan of Care Reviewed With: patient Overall Patient Progress: no changeOverall Patient Progress: no change Outcome Evaluation: Discharge home when medically ready. TING ADVISER * Plan of Care - Lucia Cohen RN - 06/18/2024 5:28 AM CST Pertinent assessments: Pt A&O x 4, on RA. Oxycodone, Atarax for pain. On tele monitoring. Pt showered this shift Major Shift Events: uneventful Treatment Plan: IVF, pain management, K+/Mg/Phos protocol, BMP q 8hrs Problem: Adult Inpatient Plan of Care Goal: Plan of Care Review Description: The Plan of Care Review/Shift note should be completed every shift. The Outcome Evaluation is a brief statement about your assessment that the patient is improving, declining, or no change. This information will be displayed automatically on your shift note. Outcome: Progressing Flowsheets (Taken 06/18/2024527) Outcome Evaluation: Oxycodone and Atarax for pain, on RA, on tele monitoring Plan of Care Reviewed With: patient Overall [...] Manage Fall Risk Recent Flowsheet Documentation Taken 06/17/20241936 by Lucia Cohen, RN Safety Promotion/Fall Prevention: clutter free environment maintained nonskid shoes/slippers when out of bed patient and family education safety round/check completed room near nurse's station treat reversible contributory factors treat underlying cause Intervention: Prevent Skin Injury Recent Flowsheet Documentation Taken 06/17/20241936 by Lucia Cohen, RN Body Position: position changed independently supine, head elevated Intervention: Prevent and Manage VTE (Venous Thromboembolism) Risk Recent Flowsheet Documentation Taken 06/17/20241936 by Lucia Cohen RN VTE Prevention/Management: SCDs off (sequential compression devices) patient refused intervention Intervention: Prevent Infection Recent Flowsheet Documentation Taken 06/17/20241936 by Lucia Cohen RN Infection Prevention: cohorting utilized hand hygiene promoted rest/sleep promoted Goal: Optimal Comfort and Wellbeing Outcome: Progressing Goal: Readiness for Transition of Care Outcome: Progressing Problem: Electrolyte Imbalance Goal: Electrolyte Balance Outcome: Progressing Problem: Pain Acute Goal: Optimal Pain Control and Function Outcome: Progressing Intervention: Optimize Psychosocial Wellbeing Recent Flowsheet Documentation Taken 06/17/20241936 by Lucia Cohen RN Diversional Activities: music Intervention: Prevent or Manage Pain Recent Flowsheet Documentation Taken 06/17/20241936 by Lucia oChen RN Medication Review/Management: medications reviewed Goal Outcome Evaluation: Plan of Care Reviewed With: patient Overall Patient Progress: improvingOverall Patient Progress: improving Outcome Evaluation: Oxycodone and Atarax for pain, on RA, on tele monitoring TING ADVISER * Plan of Care - Edith Cruz RN - 06/17/2024 6:19 PM CST Goal Outcome Evaluation: Pertinent assessments: Pt alert and oriented x4. VSS, on RA. Up independent in the room. LS clear. BS hypoactive. Denies nausea. C/o left knee, oxy given twice and ice applied. PRN infusing NS + Kcl @ 100 ml/hr. Major Shift Events replaced potassium and phos. Left knee MRI Treatment Plan: IVF, pain management, electrolytes replacement, BMP q8, nephrology consult Bedside Nurse: Edith Cruz RN Problem: Adult Inpatient Plan of Care Goal: Plan of Care Review Description: The Plan of Care Review/Shift note should be completed every shift. The Outcome Evaluation is a brief statement about your assessment that the patient is improving, declining, or no change. This information will be displayed automatically on your shift note. Outcome: Progressing Flowsheets (Taken 06/17/20241818) Outcome Evaluation: Oxy given for pain. Left knee MRI done. Plan of Care Reviewed With: patient Overall [...] Manage Fall Risk Recent Flowsheet Documentation Taken 06/17/2024 09 by Edith Cruz RN Safety Promotion/Fall Prevention: nonskid shoes/slippers when out of bed room near nurse's station safety round/check completed Intervention: Prevent Skin Injury Recent Flowsheet Documentation Taken 06/17/2024934 by Edith Cruz RN Body Position: position changed independently Intervention: Prevent and Manage VTE (Venous Thromboembolism) Risk Recent Flowsheet Documentation Taken 06/17/2024 09 by Edith Cruz RN VTE Prevention/Management: SCDs off (sequential compression devices) Intervention: Prevent Infection Recent Flowsheet Documentation Taken 06/17/2024 09 by Edith Cruz RN Infection Prevention: single patient room provided Goal: Optimal Comfort and Wellbeing Outcome: Progressing Intervention: Monitor Pain and Promote Comfort Recent Flowsheet Documentation Taken 06/17/2024934 by Edith Cruz RN Pain Management Interventions: medication (see MAR) Goal: Readiness for Transition of Care Outcome: Progressing Problem: Electrolyte Imbalance Goal: Electrolyte Balance Outcome: Progressing Problem: Pain Acute Goal: Optimal Pain Control and Function Outcome: Progressing Intervention: Develop Pain Management Plan Recent Flowsheet Documentation Taken 06/17/2024 09 by Edith Cruz RN Pain Management Interventions: medication (see MAR) Intervention: Prevent or Manage Pain Recent Flowsheet Documentation Taken 06/17/2024934 by Edith Cruz RN Medication Review/Management: medications reviewed Plan of Care Reviewed With: patient Overall Patient Progress: improvingOverall Patient Progress: improving Outcome Evaluation: Oxy given for pain. Left knee MRI done. TING ADVISER * Pharmacy-Admission Medication History - Jessica Awad RPH - 06/17/2024 9:18 AM CST Pharmacist Admission Medication History Admission medication history is complete. The information provided in this note is only as accurateas the sources available at the time of the update. Information Source(s): Patient via in-person Pertinent Information: pt was prescribed #12 oxycodone on 05/27, she took the last dose of this prescription on Sunday, after she fell and hurt her knee. Spironolactone was changed from 50mg bid to 50mg at bedtime in the past month by per outside MD and pt continues to take 50mg (full tablet) at bedtime. Changes made to [employer] medication list: Added: None Deleted: oxycodone 5mg q6h prn Changed: kcl from 40 meq QID to 80 meq TID per pt report. Allergies reviewed with patient and updates made in EHR: yes, removed iron entry with no rxn with pt approval Medication History Completed By: [facility] 06/17/2024 9:18 AM [employer] Med List Medication Sig Note Last Dose/Taking albuterol (PROAIR HFA/PROVENTIL HFA/VENTOLIN HFA) 108 (90 Base) MCG/ACT inhaler Inhale 1-2 puffs into the lungs every 4 hours as needed for shortness of breath, wheezing or cough. Unknown ferrous sulfate 325 (65 Fe) MG TBEC EC tablet Take 325 mg by mouth 3 times daily (with meals). Withfood or snack 06/16/2024 Noon gabapentin (NEURONTIN) 100 MG capsule Take 100 mg by mouth at bedtime. with 300 mg capsule 06/17/2024: Takes 300mg + 100mg at bedtime for total bedtime dose of 400mg 06/15/2024 Bedtime gabapentin (NEURONTIN) 300 MG capsule Take 300 mg by mouth 3 times daily. Am, Lunch, Bed-time 06/16/2024 Noon hydrOXYzine HCl (ATARAX) 25 MG tablet Take 1-2 tablets (25-50 mg) by mouth every 6 hours as needed for other (adjuvant pain). 06/14/2024 magnesium oxide (MAG-OX) 400 MG tablet Take 400 mg by mouth 3 times daily (with meals). 06/16/2024 Noon methocarbamol (ROBAXIN) 750 MG tablet Take 750 mg by mouth 4 times daily as needed for muscle spasms. 06/15/2024 Evening multivitamin, therapeutic (THERA-VIT) TABS Take 1 tablet by mouth daily 06/16/2024 Morning ondansetron (ZOFRAN) 4 MG tablet Take 4 mg by mouth every 8 hours as needed for nausea or vomiting.Unknown potassium chloride deanne ER (KLOR-CON M20) 20 MEQ CR tablet Take 80 mEq by mouth 3 times daily. 06/16/2024 Noon senna-docusate (SENOKOT-S/PERICOLACE) 8.6-50 MG tablet Take 1 tablet by mouth 2 times daily as needed for constipation. Unknown spironolactone (ALDACTONE) 50 MG tablet Take 50 mg by mouth at bedtime. 06/15/2024 Bedtime traMADol (ULTRAM) 50 MG tablet Take 50 mg by mouth 2 times daily as needed for severe pain. 06/15/2024 Evening TING ADVISER * Plan of Care - Laura Downing RN - 06/17/2024 5:27 AM CST A&O x4. SBA. On tele, in SR. On K, Mg, and Phos protocols. Potassium replaced PO and IV. Recheck for potassium is at 0928. Mg and Phos protocols, Am recheck. Still needs stool sample. R. PIV infusing w/ NS w/ 20 mEq at 100 mL/hr. On K 40 mEq QID. C/O L. Knee pain. PRN oxy and tylenol given withminimal improvement. PRN one time dose of dilaudid given, with improvement to pain rating. Plan to c ontinue monitoring and replacing electrolytes. Goal Outcome Evaluation: Plan of Care Reviewed With: patient Overall Patient Progress: improvingOverall Patient Progress: improving Outcome Evaluation: On K, Mg, and Phos protocols. Latest K lab value: 2.4. PRN oxy, tylenol, ice, and heat given for L. knee pain with little improvement. Problem: Pain Acute Goal: Optimal Pain Control and Function Outcome: Not Progressing Intervention: Develop Pain Management Plan Recent Flowsheet Documentation Taken 06/17/2024 0348 by Laura Downing RNpad hand Interventions: heat applied Taken 06/17/2024 0303 by Laura Downing RNpad hand Interventions: (PRN tylenol and oxy) medication (see MAR) Problem: Adult Inpatient Plan of Care Goal: Plan of Care Review Description: The Plan of Care Review/Shift note should be completed every shift. The Outcome Evaluation is a brief statement about your assessment that the patient is improving, declining, or no change. This information will be displayed automatically on your shift note. Outcome: Progressing Flowsheets (Taken 06/17/2024 0526) Outcome Evaluation: On K, Mg, and Phos protocols. Latest K lab value: 2.4. PRN oxy, tylenol, ice, and heat given for L. knee pain with little improvement. Plan of Care Reviewed With: patient Overall [...] and Promote Comfort Recent Flowsheet Documentation Taken 06/17/2024 0348 by Laura Downing RNpad hand Interventions: heat applied Taken 06/17/2024 0303 by Laura Downing RNpad hand Interventions: (PRN tylenol and oxy) medication (see MAR) Goal: Readiness for Transition of Care Outcome: Progressing Intervention: Mutually Develop Transition Plan Recent Flowsheet Documentation Taken 06/17/2024 0116 by Laura Downing RN Equipment Currently Used at Home: none Problem: Electrolyte Imbalance Goal: Electrolyte Balance Outcome: Progressing TING ADVISER TING ADVISER TING ADVISER * Provider Notification - Laura Downing RN - 06/17/2024 4:58 AM CST Paged crosscover regarding pain management. 0352: Dion pt fell on ice a couple days ago, and is having 10/10 L. Knee pain. X-ray was completed on knee, without signs of fracture. Pt has PRN oxy but it doesn't seem to be helping at all. I have also tried ice and tylenol. Any chance we could get anything else PRN? Thanks. TING ADVISER * Provider Notification - Laura Downing RN - 06/17/2024 2:26 AM CST 06/17/24 0225 Significant Event Significant Event Critical result/value Critical Test Results/Notification Critical Lab Result (Lab Name and Value) K: 2.4 What Time Did The Lab Notify You? 0220 Provider Notified yes Date of Provider Notification 06/17/24 Time of Provider Notification 022 Mechanism of Provider notification page What Provider Did You Notify? Protocol run. Provider notified due to K below 2.7. Dr. Flor agreed with following protocol and added an additional dose of IV potassium. TING ADVISER TING ADVISER documented in this encounter Plan of Treatment Upcoming Encounters Date Type Department Care Team (Late st Contact Info) Description 07/09/2024 11:00 AM LIGHTING ADVISER Virtual Visit [facility] [address] [address] [place] [address] [place], [place] [phone] [place] [phone] [place], [place] [phone] documented as of this encounter Procedures Procedure Name Priority Date/Time Associated Diagnosis Comments RENAL PANEL Routine 06/20/2024 7:23 AM LIGHTING ADVISER MAGNESIUM Routine 06/20/2024 7:23 AM LIGHTING ADVISER CBC WITH PLATELETS Routine 06/20/2024 7: 23 AM LIGHTING ADVISER SODIUM RANDOM URINE Routine 06/19/2024 5 :13 PM LIGHTING ADVISER POTASSIUM RANDOM URINE Routine 06/19/2024 5:13 PM LIGHTING ADVISER CHLORIDE RANDOM URINE Routine 06/19/2024 5:13 PM LIGHTING ADVISER PHOSPHORUS Routine 06/19/2024 6:36 AM LIGHTING ADVISER MAGNESIUM Routine 06/19/2024 6:36 AM LIGHTING ADVISER BASIC METABOLIC PANEL Routine 06/19/2024 6:36 AM LIGHTING ADVISER BASIC METABOLIC PANEL Routine 06/18/2024 7:04 PM LIGHTING ADVISER EKG 12-LEAD, TRACING ONLY Routine 06/18/2024 11:14 AM LIGHTING ADVISER PHOSPHORUS Routine 06/18/2024 6:08 AM LIGHTING ADVISER MAGNESIUM Routine 06/18/2024 6:08 AM LIGHTING ADVISER BASIC METABOLIC PANEL Timed 06/18/2024 6:08 AM LIGHTING ADVISER CBC WITH PLATELETS Routine 06/18/2024 6: 08 AM LIGHTING ADVISER BASIC METABOLIC PANEL Timed 06/17/2024 10:14 PM LIGHTING ADVISER POTASSIUM Timed 06/17/2024 7:28 PM LIGHTING ADVISER PHOSPHORUS Timed 06/17/2024 7:28 PM LIGHTING ADVISER POTASSIUM Timed 06/17/2024 1:48 PM LIGHTING ADVISER OSMOLALITY Routine 06/17/2024 1:48 PM LIGHTING ADVISER BASIC METABOLIC PANEL Timed 06/17/2024 1:48 PM LIGHTING ADVISER SODIUM RANDOM URINE Routine 06/17/2024 1 :39 PM LIGHTING ADVISER POTASSIUM RANDOM URINE Routine 06/17/2024 1:39 PM LIGHTING ADVISER OSMOLALITY, RANDOM URINE Routine 06/17/2024 1:39 PM LIGHTING ADVISER CREATININE RANDOM URINE Routine 06/17/2024 1:39 PM LIGHTING ADVISER CHLORIDE RANDOM URINE Routine 06/17/2024 1:39 PM LIGHTING ADVISER MR KNEE LEFT W/O CONTRAST Routine 06/17/2024 11:35 AM LIGHTING ADVISER POTASSIUM Timed 06/17/2024 10:11 AM LIGHTING ADVISER PHOSPHORUS Routine 06/17/2024 6:52 AM LIGHTING ADVISER MAGNESIUM Routine 06/17/2024 6:52 AM LIGHTING ADVISER BASIC METABOLIC PANEL Routine 06/17/2024 6:52 AM LIGHTING ADVISER CBC WITH PLATELETS Routine 06/17/2024 6: 52 AM LIGHTING ADVISER POTASSIUM Timed 06/17/2024 1:33 AM LIGHTING ADVISER PHOSPHORUS Add-On 06/16/2024 7:31 PM LIGHTING ADVISER MAGNESIUM Add-On 06/16/2024 7:31 PM LIGHTING ADVISER BASIC METABOLIC PANEL STAT 06/16/2024 7:31 PM LIGHTING ADVISER XR KNEE LEFT 3 VIEWS STAT 06/16/2024 6:16 PM LIGHTING ADVISER CBC WITH PLATELETS AND DIFFERENTIAL STAT 06/16/2024 5:53 PM LIGHTING ADVISER TROPONIN T, HIGH SENSITIVITY STAT 06/16/2024 5:53 PM LIGHTING ADVISER CBC WITH PLATELETS & DIFFERENTIAL STAT 06/16/2024 5:53 PM LIGHTING ADVISER EKG 12-LEAD, TRACING ONLY STAT 06/16/2024 5:40 PM LIGHTING ADVISER documented in this encounter Results * (ABNORMAL) CBC with platelets (06/20/2024 7:23 AM LIGHTING ADVISER) WBC Count 7.2 4.0 - 11.0 10e3/uL 06/20/2024 7:50 AM LIGHTING ADVISER [facility] RBC Count 2.91(L) 3.80 - 5.20 10e6/uL 06/20/2024 7:50 AM LIGHTING ADVISER [facility] Hemoglobin 8.0(L) 11.7 - 15.7 g/dL 06/20/2024 7:50 AM LIGHTING ADVISER [facility] Hematocrit 24.4(L) 35.0 - 47.0 % 06/20/2024 7:50 AM LIGHTING ADVISER [facility] MCV 84 78 - 100 fL 06/20/2024 7:50 AM LIGHTING ADVISER [facility] MCH 27.5 26.5 - 33.0 pg 06/20/2024 7:50 AM LIGHTING ADVISER [facility] MCHC 32.8 31.5 - 36.5 g/dL 06/20/2024 7:50 AM LIGHTING ADVISER [facility] RDW 15.4(H) 10.0 - 15.0 % 06/20/2024 7:50 AM LIGHTING ADVISER [facility] Platelet Count 316 150 - 450 10e3/uL 06/20/2024 7:50 AM LIGHTING ADVISER [facility] Blood STRUCTURE OF LEFT HAND / Unknown Venipuncture / Unknown 06/20/2024 7:23 AM LIGHTING ADVISER 06/20/2024 7:47 AM LIGHTING ADVISER us Javon Devine MD LAB - BLOOD ORDERABLES Final Res ult [facility] LABORATORY [facility] [address] [facility] Lab (1st floor, no room number) [place] [address], [facility] * (ABNORMAL) Renal panel (06/20/2024 7:23 AM LIGHTING ADVISER) Sodium 145 135 - 145 mmol/L 06/20/2024 9:35 AM [facility] Potassium 4.5 3.4 - 5.3 mmol/L 06/20/2024 9:35 AM [facility] Chloride 105 98 - 107 mmol/L 06/20/2024 9:35 AM [facility] Carbon Dioxide (CO2) 27 22 - 29 mmol/L 06/20/2024 9:35 AM [facility] Anion Gap 13 7 - 15 mmol/L 06/20/2024 9:35 AM [facility] Glucose 82 70 - 99 mg/dL 06/20/2024 9:35 AM [facility] Urea Nitrogen 26.8(H) 6.0 - 20.0 mg/dL 06/20/2024 9:35 AM [facility] Creatinine 2.09(H) 0.51 - 0.95 mg/dL 06/20/2024 9:35 AM [facility] GFR Estimate 31(L) >60 mL/min/1.7 3m2 06/20/2024 9:35 AM [facility] Comment:eGFR calculated usin 2020 CKD-EPI equation. Calcium 9.9 8.8 - 10.4 mg/dL 06/20/2024 9:35 AM [facility] Comment:Reference intervals for this test were updated on 01/08/2024 to reflect our healthy population more accurately. There may be differences in the flagging of prior results with similar values performed with this method. Those prior results can be interpreted in the context of the updated reference intervals. Albumin 3.9 3.5 - 5.2 g/dL 06/20/2024 9:35 AM [facility] Phosphorus 2.9 2.5 - 4.5 mg/dL 06/20/2024 9:35 AM [facility] Blood STRUCTURE OF LEFT HAND / Unknown Venipuncture / Unknown 06/20/2024 7:23 AM LIGHTING ADVISER 06/20/2024 7:47 AM [facility] us Javon Devine MD LAB - BLOOD ORDERABLES Final Res ult LABORATORY [facility] [address] Lab (1st floor, no room number) [place] [address], [facility] * Magnesium (06/20/2024 7:23 AM LIGHTING ADVISER) Magnesium 2.2 1.7 - 2.3 mg/dL 06/20/2024 9:35 AM LIGHTING ADVISER LABORATORY Blood STRUCTURE OF LEFT HAND / Unknown Venipuncture / Unknown 06/20/2024 7:23 AM LIGHTING ADVISER 06/20/2024 7:47 AM LIGHTING ADVISER Azar Umanzor MD LAB - BLOOD ORDERABLES Final Res ult RH LABORATORY [facility] [address] [facility] Lab (1st floor, no room number) [place] [address] * Potassium random urine (06/19/2024 5:13 PM LIGHTING ADVISER) Potassium Urine 40.2 mmol/L 9:27 PM LIGHTING ADVISER [facility] Comment:The reference ranges have not been established in urine potassium. The results should be integrated into the clinical context for interpretation. Urine URINE SPECIMEN OBTAINED BY CLEAN CATCH PROCEDURE / Unknown Non-blood Collection / Unknown 06/19/2024 5:13 PM LIGHTING ADVISER 06/19/2024 5:18 PM LIGHTING ADVISER Azar Umanzor MD LAB - URINE ORDERABLES Final Res ult [facility] LAB[facility]ATORY [facility] [place] [facility] [address], [address] [place] [address] * Chloride random urine (06/19/2024 5:13 PM LIGHTING ADVISER) Chloride Urine mmol/L 59 mmol/L 06/19/2024 9:27 PM LIGHTING ADVISER [facility] Comment:The reference ranges have not been established in urine chloride. The results should be integrated into the clinical context for interpretation. Urine URINE SPECIMEN OBTAINED BY CLEAN CATCH PROCEDURE / Unknown Non-blood Collection / Unknown 06/19/2024 5:13 PM LIGHTING ADVISER 06/19/2024 5:18 PM LIGHTING ADVISER us Azar Umanzor MD LAB - URINE ORDERABLES Final Res ult [facility] [place] [facility] [address], [address] [place] [address] * Sodium random urine (06/19/2024 5:13 PM LIGHTING ADVISER) Sodium Urine mmol/L 121 mmol/L 06/19/2024 5:45 PM LIGHTING ADVISER LABORATORY Comment:The reference ranges have not been established in urine sodium. The results should be integrated into the clinical context for interpretation. Urine URINE SPECIMEN OBTAINED BY CLEAN CATCH PROCEDURE / Unknown Non-blood Collection / Unknown 06/19/2024 5:13 PM LIGHTING ADVISER 06/19/2024 5:19 PM LIGHTING ADVISER Azar Umanzor MD LAB - URINE ORDERABLES Final Res ult LABORATORY [facility] [address] Lab (1st floor, no room number) [place] [address] * (ABNORMAL) Basic metabolic panel (06/19/2024 6:36 AM LIGHTING ADVISER) Sodium 144 135 - 145 mmol/L 06/19/2024 7:18 AM [facility] Potassium 4.2 3.4 - 5.3 mmol/L 06/19/2024 7:18 AM [facility] Chloride 104 98 - 107 mmol/L 06/19/2024 7:18 AM [facility] Carbon Dioxide (CO2) 28 22 - 29 mmol/L 06/19/2024 7:18 AM [facility] Anion Gap 12 7 - 15 mmol/L 06/19/2024 7:18 AM [facility] Urea Nitrogen 25.8(H) 6.0 - 20.0 mg/dL 06/19/2024 7:18 AM [facility] Creatinine 1.91(H) 0.51 - 0.95 mg/dL 06/19/2024 7:18 AM [facility] GFR Estimate 35(L) >60 mL/min/1.7 3m2 06/19/2024 7:18 AM LIGHTING ADVISER [facility] Comment:eGFR calculated usin 2020 CKD-EPI equation. Calcium 9.9 8.8 - 10.4 mg/dL 06/19/2024 7:18 AM LIGHTING ADVISER [facility] Comment:Reference intervals for this test were updated on 01/08/2024 to reflect our healthy population more accurately. There may be differences in the flagging of prior results with similar values performed with this method. Those prior results can be interpreted in the context of the updated reference intervals. Glucose 122(H) 70 - 99 mg/dL 06/19/2024 7:18 AM LIGHTING ADVISER [facility] Blood STRUCTURE OF RIGHT HAND / Unknown Venipuncture / Unknown 06/19/2024 6:36 AM LIGHTING ADVISER 06/19/2024 6:48 AM LIGHTING ADVISER Azar Umanzor MD LAB - BLOOD ORDERABLES Final Res ult Performing Organization Address City/[facility]/ZIP Co de Phone Number LABORATORY [facility] [address] Lab (1st floor, no room number) [address] * (ABNORMAL) Phosphorus Lab (06/19/2024 6:36 AM LIGHTING ADVISER) Phosphorus 2.1(L) 2.5 - 4.5 mg/dL 06/19/2024 7:18 AM LIGHTING ADVISER LABORATORY Blood STRUCTURE OF RIGHT HAND / Unknown Venipuncture / Unknown 06/19/2024 6:36 AM LIGHTING ADVISER 06/19/2024 6:48 AM LIGHTING ADVISER Fabian Chowdary MD LAB - BLOOD ORDERABLES Final Result LABORATORY [facility] [address] Lab (1st floor, no room number) [address] * (ABNORMAL) Magnesium Lab (06/19/2024 6:36 AM LIGHTING ADVISER) Magnesium 1.6(L) 1.7 - 2.3 mg/dL 06/19/2024 7:18 AM LIGHTING ADVISER [facility] Blood STRUCTURE OF RIGHT HAND / Unknown Venipuncture / Unknown 06/19/2024 6:36 AM LIGHTING ADVISER 06/19/2024 6:48 AM LIGHTING ADVISER us Fabian Chowdary MD LAB - BLOOD ORDERABLES Final Result LABORATORY [facility] [address] Lab (1st floor, no room number) [place] [address], [facility] * (ABNORMAL) Basic metabolic panel (06/18/2024 7:04 PM LIGHTING ADVISER) Sodium 145 135 - 145 mmol/L 06/18/2024 7:41 PM [facility] Potassium 3.9 3.4 - 5.3 mmol/L 06/18/2024 7:41 PM [facility] Chloride 101 98 - 107 mmol/L 06/18/2024 7:41 PM [facility] Carbon Dioxide (CO2) 33(H) 22 - 29 mmol/L 06/18/2024 7:41 PM [facility] Anion Gap 11 7 - 15 mmol/L 06/18/2024 7:41 PM LIGHTING ADVISER LABORATORY Urea Nitrogen 27.3(H) 6.0 - 20.0 mg/dL 06/18/2024 7:41 PM [facility] Creatinine 2.12(H) 0.51 - 0.95 mg/dL 06/18/2024 7:41 PM [facility] GFR Estimate 31(L) >60 mL/min/1.7 3m2 06/18/2024 7:41 PM LIGHTING ADVISER LABORATORY Comment:eGFR calculated usin 2020 CKD-EPI equation. Calcium 9.9 8.8 - 10.4 mg/dL 06/18/2024 7:41 PM LIGHTING ADVISER LABORATORY Comment:Reference intervals for this test were updated on 01/08/2024 to reflect our healthy population more accurately. There may be differences in the flagging of prior results with similar values performed with this method. Those prior results can be interpreted in the context of the updated reference intervals. Glucose 77 70 - 99 mg/dL 06/18/2024 7:41 PM LIGHTING ADVISER LABORATORY Blood STRUCTURE OF LEFT HAND / Unknown Venipuncture / Unknown 06/18/2024 7:04 PM LIGHTING ADVISER 06/18/2024 7:11 PM LIGHTING ADVISER us Mike Teran MD LAB - BLOOD ORDERABLES Final Result LABORATORY [facility] [address] Lab (1st floor, no room number) [place] [address], [facility] * EKG 12-lead, tracing only (06/18/2024 11:14 AM LIGHTING ADVISER) Systolic Blood Pressure mmHg RADIOLOGY RESULTS Diastolic Blood Pressure mmHg RADIOLOGY RESULTS Ventricular Rate 77 BPM RAD IOLOGY RESULTS Atrial Rate 77 BPM RADIOLOG Y RESULTS AR Interval 110 ms RADIOLOG Y RESULTS QRS Duration 92 ms RADIOLO GY RESULTS QT 390 ms RADIOLOGY RESULTS QTc 441 ms RADIOLOGY RESULTS P [place] 32 degrees RADIOLOGY RESULTS R AXIS 73 degrees RADIOLOGY RESULTS T [place] 51 degrees RADIOLOGY RESULTS Interpretation ECG Sinus rhythm with short AR Otherwise normal ECG When compared with ECG of 16-Jun-2024 17:40, ST no longer depressed in Inferior leads ST no longer depressed in Anterolateral leads QT has shortened Confirmed by MD LUCIO, MICHI ([id number]) on 06/19/2024 3:02:42 PM RADIOLOGY RESULTS 06/18/2024 11:1 4 AM LIGHTING ADVISER 06/19/2024 3:02 PM LIGHTING ADVISER Azar Umanzor MD ECG ORDERABLES Edited Result - Final RADIOLOGY RESULTS * (ABNORMAL) Basic metabolic panel (06/18/2024 6:08 AM LIGHTING ADVISER) Sodium 143 135 - 145 mmol/L 06/18/2024 6:50 AM LIGHTING ADVISER LABORATORY Potassium 4.2 3.4 - 5.3 mmol/L 06/18/2024 6:50 AM LIGHTING ADVISER LABORATORY Chloride 103 98 - 107 mmol/L 06/18/2024 6:50 AM [facility] Carbon Dioxide (CO2) 33(H) 22 - 29 mmol/L 06/18/2024 6:50 AM [facility] Anion Gap 7 7 - 15 mmol/L 06/18/2024 6:50 AM [facility] Urea Nitrogen 31.3(H) 6.0 - 20.0 mg/dL 06/18/2024 6:50 AM LIGHTING ADVISER LABORATORY Creatinine 2.29(H) 0.51 - 0.95 mg/dL 06/18/2024 6:50 AM LIGHTING ADVISER LABORATORY GFR Estimate 28(L) >60 mL/min/1.7 3m2 06/18/2024 6:50 AM LIGHTING ADVISER [facility] Comment:eGFR calculated usin 2020 CKD-EPI equation. Calcium 9.9 8.8 - 10.4 mg/dL 06/18/2024 6:50 AM LIGHTING ADVISER [facility] Comment:Reference intervals for this test were updated on 01/08/2024 to reflect our healthy population more accurately. There may be differences in the flagging of prior results with similar values performed with this method. Those prior results can be interpreted in the context of the updated reference intervals. Glucose 77 70 - 99 mg/dL 06/18/2024 6:50 AM LIGHTING ADVISER LABORATORY Blood STRUCTURE OF LEFT HAND / Unknown Venipuncture / Unknown 06/18/2024 6:08 AM LIGHTING ADVISER 06/18/2024 6:31 AM LIGHTING ADVISER Azar Umanzor MD LAB - BLOOD ORDERABLES Final Res ult [facility] [address] Lab (1st floor, no room number) [place] [address] * Phosphorus Lab (06/18/2024 6:08 AM LIGHTING ADVISER) Phosphorus 2.5 2.5 - 4.5 mg/dL 06/18/2024 6:50 AM LIGHTING ADVISER LABORATORY Blood STRUCTURE OF LEFT HAND / Unknown Venipuncture / Unknown 06/18/2024 6:08 AM LIGHTING ADVISER 06/18/2024 6:31 AM LIGHTING ADVISER Fabian Chowdary MD LAB - BLOOD ORDERABLES Final Result [facility] [address] Lab (1st floor, no room number) [place] [address] * Magnesium Lab (06/18/2024 6:08 AM LIGHTING ADVISER) Magnesium 1.8 1.7 - 2.3 mg/dL 06/18/2024 6:50 AM LIGHTING ADVISER RH LAB[facility]ATORY Blood STRUCTURE OF LEFT HAND / Unknown Venipuncture / Unknown 06/18/2024 6:08 AM LIGHTING ADVISER 06/18/2024 6:31 AM LIGHTING ADVISER us Fabian Chowdary MD LAB - BLOOD ORDERABLES Final Result RH LABORATORY [facility] [address] Lab (1st floor, no room number) [place] [address] * (ABNORMAL) CBC with platelets (06/18/2024 6:08 AM LIGHTING ADVISER) WBC Count 6.6 4.0 - 11.0 10e3/uL 06/18/2024 6:32 AM LIGHTING ADVISER [facility] LAB[facility]ATORY RBC Count 2.83(L) 3.80 - 5.20 10e6/uL 06/18/2024 6:32 AM LIGHTING ADVISER [facility] LAB[facility] Hemoglobin 7.7(L) 11.7 - 15.7 g/dL 06/18/2024 6:32 AM LIGHTING ADVISER [facility] LAB[facility]ATORY Hematocrit 24.0(L) 35.0 - 47.0 % 06/18/2024 6:32 AM LIGHTING ADVISER RH LABORATORY MCV 85 78 - 100 fL 06/18/2024 6:32 AM LIGHTING ADVISER RH LABORATORY MCH 27.2 26.5 - 33.0 pg 06/18/2024 6:32 AM LIGHTING ADVISER RH LABORATORY MCHC 32.1 31.5 - 36.5 g/dL 06/18/2024 6:32 AM LIGHTING ADVISER RH LABORATORY RDW 14.9 10.0 - 15.0 % 06/18/2024 6:32 AM LIGHTING ADVISER [facility] Platelet Count 270 150 - 450 10e3/uL 06/18/2024 6:32 AM LIGHTING ADVISER RH LAB[facility] Blood STRUCTURE OF LEFT HAND / Unknown Venipuncture / Unknown 06/18/2024 6:08 AM LIGHTING ADVISER 06/18/2024 6:29 AM LIGHTING ADVISER Azar Umanzor MD LAB - BLOOD ORDERABLES Final Res ult LABORATORY [facility] [address] [facility] Lab (1st floor, no room number) [place] [address], [facility] * (ABNORMAL) Basic metabolic panel (06/17/2024 10:14 PM LIGHTING ADVISER) Sodium 142 135 - 145 mmol/L 06/17/2024 10:47 PM LIGHTING ADVISER LABORATORY Potassium 4.0 3.4 - 5.3 mmol/L 06/17/2024 10:47 PM [facility] LABORATORY Chloride 97(L) 98 - 107 mmol/L 06/17/2024 10:47 PM [facility] LAB[facility]ORY Carbon Dioxide (CO2) 34(H) 22 - 29 mmol/L 06/17/2024 10:47 PM [facility]ORY Anion Gap 11 7 - 15 mmol/L 06/17/2024 10:47 PM [facility] Urea Nitrogen 32.1(H) 6.0 - 20.0 mg/dL 06/17/2024 10:47 PM [facility] Creatinine 2.59(H) 0.51 - 0.95 mg/dL 06/17/2024 10:47 PM [facility] GFR Estimate 24(L) >60 mL/min/1.7 3m2 06/17/2024 10:47 PM [facility] Comment:eGFR calculated usin g 2020 CKD-EPI equation. Calcium 10.6(H) 8.8 - 10.4 mg/dL 06/17/2024 10:47 PM [facility] Comment:Reference intervals for this test were updated on 01/08/2024 to reflect our healthy population more accurately. There may be differences in the flagging of prior results with similar values performed with this method. Those prior results can be interpreted in the context of the updated reference intervals. Glucose 130(H) 70 - 99 mg/dL 06/17/2024 10:47 PM [facility] Blood STRUCTURE OF LEFT HAND / Unknown Venipuncture / Unknown 06/17/2024 10:14 PM LIGHTING ADVISER 06/17/2024 10:17 PM LIGHTING ADVISER us Azar Umanzor MD LAB - BLOOD ORDERABLES Final Res ult Performing Organization Address [facility]/ZIP Co de Phone Number [facility] [address] Lab (1st floor, no room number) [place] [phone] [place] [address] * Potassium (06/17/2024 7:28 PM LIGHTING ADVISER) Potassium 4.3 3.4 - 5.3 mmol/L 06/17/2024 8:01 PM LIGHTING ADVISER [facility] LABORATORY Blood STRUCTURE OF LEFT HAND / Unknown Venipuncture / Unknown 06/17/2024 7:28 PM LIGHTING ADVISER 06/17/2024 7:34 PM LIGHTING ADVISER Azar Umanzor MD LAB - BLOOD ORDERABLES Final Res ult Performing Organization Address [facility] Co de Phone Number [facility] [address] Lab (1st floor, no room number) [address] [place] [address] * Phosphorus (06/17/2024 7:28 PM LIGHTING ADVISER) Phosphorus 2.6 2.5 - 4.5 mg/dL 06/17/2024 8:01 PM LIGHTING ADVISER LABORATORY Blood STRUCTURE OF LEFT HAND / Unknown Venipuncture / Unknown 06/17/2024 7:28 PM LIGHTING ADVISER 06/17/2024 7:34 PM LIGHTING ADVISER Lorraine Mcclellan DO LAB - BLOOD ORDERABLES Fi nal Result Performing Organization Address [facility]/ZIP Co de Phone Number [facility] [address] Lab (1st floor, no room number) [place] [phone] * (ABNORMAL) Osmolality (06/17/2024 1:48 PM LIGHTING ADVISER) Osmolality Blood 300(H) 275 - 295 mmol/kg 06/17/2024 5:52 PM LIGHTING ADVISER [facility] LAB[facility] Blood STRUCTURE OF RIGHT HAND / Unknown Venipuncture / Unknown 06/17/2024 1:48 PM LIGHTING ADVISER 06/17/2024 1:54 PM LIGHTING ADVISER Narrative [facility] LAB[facility] - 06/17/2024 5:52 PM LIGHTING ADVISER Greater than 385 mmol/kg relates to stupor in hyperglycemia Greater than 400 mmol/kg can relate to seizures Greater than 420 mmol/kg can be lethal Serum Osmalar Gap: Normal <10 Larger suggest unmeasured substances present in serum (ethanol, methanol, isopropanol, mannitol, ethylene glycol). us Mike Teran MD LAB - BLOOD ORDERABLES Final Result [facility] LABORATORY [facility] [place] [facility] [address], [address] [place] [address], [facility] * (ABNORMAL) Potassium (06/17/2024 1:48 PM LIGHTING ADVISER) Pathologist [facility] Potassium 3.2(L) 3.4 - 5.3 mmol/L 06/17/2024 2:13 PM LIGHTING ADVISER LABORATORY Blood STRUCTURE OF RIGHT HAND / Unknown Venipuncture / Unknown 06/17/2024 1:48 PM LIGHTING ADVISER 06/17/2024 1:54 PM LIGHTING ADVISER Lorraine Mcclellan DO LAB - BLOOD ORDERABLES Fi nal Result LABORATORY [facility] [address] Lab (1st floor, no room number) [place] [address], [facility] * (ABNORMAL) Basic metabolic panel (06/17/2024 1:48 PM LIGHTING ADVISER) Sodium 141 135 - 145 mmol/L 06/17/2024 2:14 PM LIGHTING ADVISER LABORATORY Potassium 3.3(L) 3.4 - 5.3 mmol/L 06/17/2024 2:14 PM LIGHTING ADVISER LABORATORY Chloride 91(L) 98 - 107 mmol/L 06/17/2024 2:14 PM LIGHTING ADVISER LABORATORY Carbon Dioxide (CO2) 35(H) 22 - 29 mmol/L 06/17/2024 2:14 PM LIGHTING ADVISER LABORATORY Anion Gap 15 7 - 15 mmol/L 06/17/2024 2:14 PM LIGHTING ADVISER LABORATORY Urea Nitrogen 33.5(H) 6.0 - 20.0 mg/dL 06/17/2024 2:14 PM LIGHTING ADVISER LABORATORY Creatinine 2.70(H) 0.51 - 0.95 mg/dL 06/17/2024 2:14 PM LIGHTING ADVISER LABORATORY GFR Estimate 23(L) >60 mL/min/1.7 3m2 06/17/2024 2:14 PM LIGHTING ADVISER LABORATORY Comment:eGFR calculated usin g 2020 CKD-EPI equation. Calcium 11.4(H) 8.8 - 10.4 mg/dL 06/17/2024 2:14 PM LIGHTING ADVISER LABORATORY Comment:Reference intervals for this test were updated on 01/08/2024 to reflect our healthy population more accurately. There may be differences in the flagging of prior results with similar values performed with this method. Those prior results can be interpreted in the context of the updated reference intervals. Glucose 80 70 - 99 mg/dL 06/17/2024 2:14 PM LIGHTING ADVISER LABORATORY Blood STRUCTURE OF RIGHT HAND / Unknown Venipuncture / Unknown 06/17/2024 1:48 PM LIGHTING ADVISER 06/17/2024 1:54 PM LIGHTING ADVISER Azar Umanzor MD LAB - BLOOD ORDERABLES Final Res ult [facility] [address] [facility] Lab (1st floor, no room number) [place] [address], [facility] * Creatinine random urine (06/17/2024 1:39 PM LIGHTING ADVISER) Creatinine Urine mg/dL 32.8 mg/dL 06/17/2024 2:08 PM LIGHTING ADVISER LABORATORY Comment:The reference ranges have not been established in urine creatinine. The results should be integrated into the clinical context for interpretation. Urine URINE SPECIMEN OBTAINED BY CLEAN CATCH PROCEDURE / Unknown Non-blood Collection / Unknown 06/17/2024 1:39 PM LIGHTING ADVISER 06/17/2024 1:45 PM LIGHTING ADVISER Mike Teran MD LAB - URINE ORDERABLES Final Result [facility] [address] Lab (1st floor, no room number) [place] [address], [facility] * Potassium random urine (06/17/2024 1:39 PM LIGHTING ADVISER) Potassium Urine 34.5 mmol/L 6:26 PM LIGHTING ADVISER [facility] LAB[facility]AT[facility] Comment:The reference ranges have not been established in urine potassium. The results should be integrated into the clinical context for interpretation. Urine URINE SPECIMEN OBTAINED BY CLEAN CATCH PROCEDURE / Unknown Non-blood Collection / Unknown 06/17/2024 1:39 PM LIGHTING ADVISER 06/17/2024 1:44 PM LIGHTING ADVISER us Mike Teran MD LAB - URINE ORDERABLES Final Result Performing Organization Address [facility]/ZIP Co de Phone Number U LABORATORY [facility] [address] [facility], [address] [phone] * Osmolality urine (06/17/2024 1:39 PM LIGHTING ADVISER) Osmolality Urine 307 100 - 1,200 mmol/kg 06/17/2024 5:52 PM LIGHTING ADVISER [facility] Urine URINE SPECIMEN OBTAINED BY CLEAN CATCH PROCEDURE / Unknown Non-blood Collection / Unknown 06/17/2024 1:39 PM LIGHTING ADVISER 06/17/2024 1:44 PM LIGHTING ADVISER Narrative [facility] LAB[facility]ORY - 06/17/2024 5:52 PM LIGHTING ADVISER Reference Ranges depend on patient's hydration status and renal function. Neonates: 75-300 mmol/kg 2 years and older, random specimens: 100-1200 mmol/kg; Greater than 850 mmol/kg after 12 hour fluid restriction Urine/serum osmolality ratio: 2 years and older: 1.0-3.0; 3.0-4.7 after 12 hour fluid restriction us Mike Teran MD LAB - URINE ORDERABLES Final Result Performing Organization Address City/[facility]/ZIP Co de Phone Number U LABORATORY [facility] [address] [facility], [address] [place] [phone] * Chloride random urine (06/17/2024 1:39 PM LIGHTING ADVISER) Chloride Urine mmol/L 27 mmol/L 06/17/2024 6:26 PM LIGHTING ADVISER LABORATORY Comment:The reference ranges have not been established in urine chloride. The results should be integrated into the clinical context for interpretation. Urine URINE SPECIMEN OBTAINED BY CLEAN CATCH PROCEDURE / Unknown Non-blood Collection / Unknown 06/17/2024 1:39 PM LIGHTING ADVISER 06/17/2024 1:44 PM LIGHTING ADVISER Mike Teran MD LAB - URINE ORDERABLES Final Result LABORATORY [facility] [address] [facility], [address] [place] [address], [facility] * Sodium random urine (06/17/2024 1:39 PM LIGHTING ADVISER) Sodium Urine mmol/L 79 mmol/L 06/17/2024 2:08 PM LIGHTING ADVISER LABORATORY Comment:The reference ranges have not been established in urine sodium. The results should be integrated into the clinical context for interpretation. Urine URINE SPECIMEN OBTAINED BY CLEAN CATCH PROCEDURE / Unknown Non-blood Collection / Unknown 06/17/2024 1:39 PM LIGHTING ADVISER 06/17/2024 1:45 PM LIGHTING ADVISER Mike Teran MD LAB - URINE ORDERABLES Final Result LABORATORY [facility] [address] [facility] Lab (1st floor, no room number) [place] [address] * MR Knee Left w/o Contrast (06/17/2024 11:35 AM LIGHTING ADVISER) Anatomical Region Laterality Modality Left Knee, SUBRAD MR MSK, UMP MR MSK, RAD MR Magnetic Resonance Impressions 06/17/2024 11:59 AM LIGHTING ADVISER IMPRESSION: 1. Subtle soft tissue edema superficial to an intact tibial collateral ligament. Correlate clinically for a low-grade sprain. 2. Nonspecific focus of bone marrow edema along the posterior aspect of the lateral femoral condyle. Correlate for bone contusion. 3. The anterior and posterior cruciate ligaments, lateral supporting structures, and bilateral menisci are intact. JESSICA EDWARD MD Narrative 06/17/2024 11:59 AM LIGHTING ADVISER EXAMINATION: MRI of the left knee without [...] MD IMG MRI ORDERABLES Final Result * (ABNORMAL) Potassium (06/17/2024 10:11 AM LIGHTING ADVISER) Potassium 3.0(L) 3.4 - 5.3 mmol/L 06/17/2024 10:39 AM LIGHTING ADVISER LABORATORY Blood STRUCTURE OF RIGHT HAND / Unknown Venipuncture / Unknown 06/17/2024 10:11 AM LIGHTING ADVISER 06/17/2024 10:15 AM LIGHTING ADVISER Fabian Chowdary MD LAB - BLOOD ORDERABLES Final Result [facility] [address] [facility] Lab (1st floor, no room number) [place] [address], [facility] * (ABNORMAL) Phosphorus Lab (06/17/2024 6:52 AM LIGHTING ADVISER) Phosphorus 1.8(L) 2.5 - 4.5 mg/dL 06/17/2024 7:42 AM LIGHTING ADVISER LABORATORY Blood STRUCTURE OF RIGHT HAND / Unknown Venipuncture / Unknown 06/17/2024 6:52 AM LIGHTING ADVISER 06/17/2024 7:13 AM LIGHTING ADVISER us Fabian Chowdary MD LAB - BLOOD ORDERABLES Final Result LABORATORY [facility] [address] Lab (1st floor, no room number) [address] * Magnesium Lab (06/17/2024 6:52 AM LIGHTING ADVISER) Pathologist [facility] Magnesium 2.1 1.7 - 2.3 mg/dL 06/17/2024 7:42 AM LIGHTING ADVISER [facility] LABORATORY Blood STRUCTURE OF RIGHT HAND / Unknown Venipuncture / Unknown 06/17/2024 6:52 AM LIGHTING ADVISER 06/17/2024 7:13 AM LIGHTING ADVISER us Fabian Chowdary MD LAB - BLOOD ORDERABLES Final Result Performing Organization Address [facility]/ZIP Co de Phone Number LABORATORY [facility] [address] Lab (1st floor, no room number) [address] * (ABNORMAL) CBC with platelets (06/17/2024 6:52 AM LIGHTING ADVISER) WBC Count 6.4 4.0 - 11.0 10e3/uL 06/17/2024 7:19 AM LIGHTING ADVISER [facility] LABORATORY RBC Count 2.91(L) 3.80 - 5.20 10e6/uL 06/17/2024 7:19 AM LIGHTING ADVISER [facility] LABORATORY Hemoglobin 7.9(L) 11.7 - 15.7 g/dL 06/17/2024 7:19 AM LIGHTING ADVISER [facility] LABORATORY Hematocrit 23.9(L) 35.0 - 47.0 % 06/17/2024 7:19 AM LIGHTING ADVISER RH LABORATORY MCV 82 78 - 100 fL 06/17/2024 7:19 AM LIGHTING ADVISER RH LABORATORY MCH 27.1 26.5 - 33.0 pg 06/17/2024 7:19 AM LIGHTING ADVISER RH LABORATORY MCHC 33.1 31.5 - 36.5 g/dL 06/17/2024 7:19 AM LIGHTING ADVISER RH LABORATORY RDW 14.3 10.0 - 15.0 % 06/17/2024 7:19 AM [facility] LABORATORY Platelet Count 268 150 - 450 10e3/uL 06/17/2024 7:19 AM [facility] LABORATORY Blood STRUCTURE OF RIGHT HAND / Unknown Venipuncture / Unknown 06/17/2024 6:52 AM LIGHTING ADVISER 06/17/2024 7:13 AM LIGHTING ADVISER us Fabian Chowdary MD LAB - BLOOD ORDERABLES Final Result LABORATORY [facility] [address] Lab (1st floor, no room number) [place] [address], [facility] * (ABNORMAL) Basic metabolic panel (06/17/2024 6:52 AM LIGHTING ADVISER) Sodium 140 135 - 145 mmol/L 06/17/2024 7:59 AM [facility] LABORATORY Potassium 3.1(L) 3.4 - 5.3 mmol/L 06/17/2024 7:59 AM [facility] LABORATORY Chloride 89(L) 98 - 107 mmol/L 06/17/2024 7:59 AM [facility] LABORAT[facility] Carbon Dioxide (CO2) 40(H) 22 - 29 mmol/L 06/17/2024 7:59 AM [facility] LABORATORY Anion Gap 11 7 - 15 mmol/L 06/17/2024 7:59 AM [facility] LABORATORY Urea Nitrogen 36.2(H) 6.0 - 20.0 mg/dL 06/17/2024 7:59 AM [facility] LABORATORY Creatinine 3.11(H) 0.51 - 0.95 mg/dL 06/17/2024 7:59 AM [facility] LABORATORY GFR Estimate 19(L) >60 mL/min/1.7 3m2 06/17/2024 7:59 AM [facility] LABORATORY Comment:eGFR calculated usin 2020 CKD-EPI equation. Calcium 10.9(H) 8.8 - 10.4 mg/dL 06/17/2024 7:59 AM [facility]ORATORY Comment:Reference intervals for this test were updated on 01/08/2024 to reflect our healthy population more accurately. There may be differences in the flagging of prior results with similar values performed with this method. Those prior results can be interpreted in the context of the updated reference intervals. Glucose 92 70 - 99 mg/dL 06/17/2024 7:59 AM LIGHTING ADVISER RH LABORATORY Blood STRUCTURE OF RIGHT HAND / Unknown Venipuncture / Unknown 06/17/2024 6:52 AM LIGHTING ADVISER 06/17/2024 7:13 AM LIGHTING ADVISER Fabian Chowdary MD LAB - BLOOD ORDERABLES Final Result [facility] [address] Lab (1st floor, no room number) [address] [place] [address] * (ABNORMAL) Potassium (06/17/2024 1:33 AM LIGHTING ADVISER) Potassium 2.4(LL) 3.4 - 5.3 mmol/L 06/17/2024 2:19 AM LIGHTING ADVISER LABORATORY Blood STRUCTURE OF LEFT HAND / Unknown Venipuncture / Unknown 06/17/2024 1:33 AM LIGHTING ADVISER 06/17/2024 1:39 AM LIGHTING ADVISER Fabian Chowdary MD LAB - BLOOD ORDERABLES Final Result Performing Organization Address [facility]/ZIP Co de Phone Number [facility] [address] Lab (1st floor, no room number) [place] [phone] * Phosphorus (06/16/2024 7:31 PM LIGHTING ADVISER) Phosphorus 2.5 2.5 - 4.5 mg/dL 06/16/2024 8:52 PM LIGHTING ADVISER LABORATORY Blood BLOOD SPECIMEN / Unknown Venipuncture / Unknown 06/16/2024 7:31 PM LIGHTING ADVISER 06/16/2024 7:35 PM LIGHTING ADVISER Jamil Madison MD LAB - BLOOD ORDERABLES Fi nal Result Performing Organization Address City/[facility]/ZIP Co de Phone Number [facility] [address] Lab (1st floor, no room number) [place] [phone] * (ABNORMAL) Magnesium (06/16/2024 7:31 PM LIGHTING ADVISER) Magnesium 2.4(H) 1.7 - 2.3 mg/dL 06/16/2024 8:52 PM LIGHTING ADVISER LABORATORY Blood BLOOD SPECIMEN / Unknown Venipuncture / Unknown 06/16/2024 7:31 PM LIGHTING ADVISER 06/16/2024 7:35 PM LIGHTING ADVISER Jamil Madison MD LAB - BLOOD ORDERABLES Fi nal Result LABORATORY [facility] [address] [facility] Lab (1st floor, no room number) [place] [address], [facility] * (ABNORMAL) Basic metabolic panel (BMP) (06/16/2024 7:31 PM LIGHTING ADVISER) Sodium 138 135 - 145 mmol/L 06/16/2024 8:31 PM LIGHTING ADVISER LABORATORY Potassium 2.0(LL) 3.4 - 5.3 mmol/L 06/16/2024 8:31 PM LIGHTING ADVISER LABORATORY Chloride 73(L) 98 - 107 mmol/L 06/16/2024 8:31 PM [facility] Carbon Dioxide (CO2) 50(HH) 22 - 29 mmol/L 06/16/2024 8:31 PM [facility] Anion Gap 15 7 - 15 mmol/L 06/16/2024 8:31 PM [facility] Urea Nitrogen 43.0(H) 6.0 - 20.0 mg/dL 06/16/2024 8:31 PM LIGHTING ADVISER LABORATORY Creatinine 3.59(H) 0.51 - 0.95 mg/dL 06/16/2024 8:31 PM LIGHTING ADVISER LABORATORY GFR Estimate 16(L) >60 mL/min/1.7 3m2 06/16/2024 8:31 PM LIGHTING ADVISER LABORATORY Comment:eGFR calculated usin g 2020 CKD-EPI equation. Calcium 13.2(H) 8.8 - 10.4 mg/dL 06/16/2024 8:31 PM LIGHTING ADVISER LABORATORY Comment:Reference intervals for this test were updated on 01/08/2024 to reflect our healthy population more accurately. There may be differences in the flagging of prior results with similar values performed with this method. Those prior results can be interpreted in the context of the updated reference intervals. Glucose 101(H) 70 - 99 mg/dL 06/16/2024 8:31 PM LIGHTING ADVISER LABORATORY Blood BLOOD SPECIMEN / Unknown Venipuncture / Unknown 06/16/2024 7:31 PM LIGHTING ADVISER 06/16/2024 7:35 PM LIGHTING ADVISER Jamil Madison MD LAB - BLOOD ORDERABLES Fi nal Result [facility] [address] Lab (1st floor, no room number) [place] [address] * XR Knee Left 3 Views (06/16/2024 6:16 PM LIGHTING ADVISER) Anatomical Region Laterality Modality Thigh, Knee, Leg Left Digital Radiogr aphy 06/16/2024 6:16 PM LIGHTING ADVISER Impressions 06/16/2024 6:36 PM LIGHTING ADVISER IMPRESSION: Normal left knee joint spacing and alignment. No sizable effusion. Negative for acute fracture. Narrative 06/16/2024 6:36 PM LIGHTING ADVISER EXAM: XR KNEE LEFT 3 VIEWS LOCATION: [facility] DATE: 06/16/2024 INDICATION: fall, medial pain COMPARISON: None. Procedure Note Stephon Farias MD - 06/16/2024 EXAM: XR KNEE LEFT 3 VIEWS LOCATION: [facility] DATE: 06/16/2024 INDICATION: fall, medial pain COMPARISON: None. IMPRESSION: Normal left knee joint spacing and alignment. No sizable effusion.Negative for acute fracture. us Jamil Madison MD IMG DIAGNOSTIC IMAGING OR DERABLES Final Result * (ABNORMAL) CBC with platelets and differential (06/16/2024 5:53 PM LIGHTING ADVISER) WBC Count 6.3 4.0 - 11.0 10e3/uL 06/16/2024 6:04 PM LIGHTING ADVISER LABORATORY RBC Count 3.48(L) 3.80 - 5.20 10e6/uL 06/16/2024 6:04 PM LIGHTING ADVISER RH LABORATORY Hemoglobin 9.5(L) 11.7 - 15.7 g/dL 06/16/2024 6:04 PM LIGHTING ADVISER [facility] LABORATORY Hematocrit 27.8(L) 35.0 - 47.0 % 06/16/2024 6:04 PM LIGHTING ADVISER RH LABORATORY MCV 80 78 - 100 fL 06/16/2024 6:04 PM LIGHTING ADVISER RH LABORATORY MCH 27.3 26.5 - 33.0 pg 06/16/2024 6:04 PM LIGHTING ADVISER RH LABORATORY MCHC 34.2 31.5 - 36.5 g/dL 06/16/2024 6:04 PM LIGHTING ADVISER RH LABORATORY RDW 14.0 10.0 - 15.0 % 06/16/2024 6:04 PM LIGHTING ADVISER [facility] LABORATORY Platelet Count 340 150 - 450 10e3/uL 06/16/2024 6:04 PM LIGHTING ADVISER [facility] LABORATORY % Neutrophils 58 % 06/16/2024 6:04 PM LIGHTING ADVISER [facility] LABORATORY % Lymphocytes 29 % 06/16/2024 6:04 PM LIGHTING ADVISER [facility] LAB[facility]AT[facility] % Monocytes 9 % 06/16/2024 6:04 PM LIGHTING ADVISER [facility] LAB[facility]ATORY % Eosinophils 3 % 06/16/2024 6:04 PM LIGHTING ADVISER [facility] LABORATORY % Basophils 1 % 06/16/2024 6:04 PM LIGHTING ADVISER [facility] LABORATORY % Immature Granulocytes 1 % 06/16/2024 6:04 PM LIGHTING ADVISER [facility] LABORATORY NRBCs per 100 WBC 0 <1 /100 024 6:04 PM LIGHTING ADVISER [facility] LABORATORY Absolute Neutrophils 3.6 1.6 - 8.3 10e3/uL 06/16/2024 6:04 PM LIGHTING ADVISER [facility] LABORATORY Absolute Lymphocytes 1.8 0.8 - 5.3 10e3/uL 06/16/2024 6:04 PM LIGHTING ADVISER [facility] LABORATORY Absolute Monocytes 0.6 0.0 - 1.3 10e3/uL 06/16/2024 6:04 PM LIGHTING ADVISER RH LABORATORY Absolute Eosinophils 0.2 0.0 - 0.7 10e3/uL 06/16/2024 6:04 PM LIGHTING ADVISER [facility] LABORATORY Absolute Basophils 0.1 0.0 - 0.2 10e3/uL 06/16/2024 6:04 PM LIGHTING ADVISER [facility] LABORATORY Absolute Immature Granulocytes 0.0 <=0.4 10e3/uL 06/16/2024 6:04 PM LIGHTING ADVISER [facility] LABORATORY Absolute NRBCs 0.0 10e3/uL 06/16/2024 6:04 PM LIGHTING ADVISER LABORATORY Blood BLOOD SPECIMEN / Unknown Venipuncture / Unknown 06/16/2024 5:53 PM LIGHTING ADVISER 06/16/2024 6:01 PM LIGHTING ADVISER Jamil Madison MD LAB - BLOOD ORDERABLES Fi nal Result Performing Organization Address City/[facility]/ZIP Co de Phone Number [facility] [address] Lab (1st floor, no room number) [place] [phone] * Troponin T, High Sensitivity (06/16/2024 5:53 PM LIGHTING ADVISER) [facility] Troponin T, High Sensitivity <6 <=14 ng/L 06/16/2024 6:26 PM LIGHTING ADVISER LABORATORY Comment: Either a High Sensitivity Troponin [...] follow-up, or urgent outpatient provocative testing. Blood BLOOD SPECIMEN / Unknown Venipuncture / Unknown 06/16/2024 5:53 PM LIGHTING ADVISER 06/16/2024 6:01 PM LIGHTING ADVISER us Jamil Madison MD LAB - BLOOD ORDERABLES Fi nal Result [facility] [address] Lab (1st floor, no room number) [place] [address] * EKG 12-lead, tracing only (06/16/2024 5:40 PM LIGHTING ADVISER) Systolic Blood Pressure mmHg RADIOLOGY RESULTS Diastolic Blood Pressure mmHg RADIOLOGY RESULTS Ventricular Rate 76 BPM RAD IOLOGY RESULTS Atrial Rate 76 BPM RADIOLOG Y RESULTS AR Interval 132 ms RADIOLOG Y RESULTS QRS Duration 88 ms RADIOLO GY RESULTS QT 544 ms RADIOLOGY RESULTS QTc 612 ms RADIOLOGY RESULTS P [place] 63 degrees RADIOLOGY RESULTS R AXIS 84 degrees RADIOLOGY RESULTS T [place] 69 degrees RADIOLOGY RESULTS Interpretation ECG Sinus rhythm Left ventricular hypertrophy with repolarization abnormality ( Sokolow-Hernandez ) Prolonged QT Abnormal ECG When compared with ECG of 30-May-2024 11:41, ST now depressed in Inferior leads ST now depressed in Anterolateral leads Inverted T waves have replaced nonspecific T wave abnormality in Inferior leads QT has lengthened Unconfirmed report - interpretation of this ECG is computer generated - see medical record for final interpretation Confirmed by - EMERGENCY ROOM, PHYSICIAN ([id number]), food editor NETTIE KIM ([id number]) on 06/17/2024 6:47:27 AM RADIOLOGY RESULTS 06/16/2024 5:40 PM LIGHTING ADVISER 06/17/2024 6:47 AM LIGHTING ADVISER us Jamil Madison MD ECG ORDERABLES Edited Re sult - Final RADIOLOGY RESULTS documented in this encounter Visit Diagnoses Diagnosis Hypokalemic alkalosis- Primary Alkalosis Hypokalemia Hypopotassemia Acute kidney injury Acute kidney failure, unspecified Knee injury, left, initial encounter Hypokalemia Hypopotassemia Acute kidney injury Acute kidney failure, unspecified Diarrhea Acute pain of left knee documented in this encounter Administered Medications Inactive Administered Medications - up to 3 most recent administrations Medication Order MAR Action Action Date Dose Rate Site 0.9% sodium chloride + KCl 20 mEq/L infusion at 100 mL/hr, Intravenous, CONTINUOUS, Starting on Sun06/16/24 at 2215, Until Emiliana 06/19/24 at 0909 Restarted 06/18/2024 12:08 PM LIGHTING ADVISER 100 mL/hr $New Bag 06/18/2024 6:08 AM LIGHTING ADVISER 100 mL/hr $New Bag 06/17/2024 8:27 PM LIGHTING ADVISER 100 mL/hr acetaminophen (TYLENOL) tablet 1,000 mg 1,000 mg, Oral, ONCE, On Sun06/16/24 at 1845, For 1 dose, Maximum acetaminophen dose from all sources = 75 mg/kg/day not to exceed 4 gram $Given 06/16/2024 6:50 PM LIGHTING ADVISER 1,000 mg acetaminophen (TYLENOL) tablet 650 mg 650 mg, Oral, EVERY 4 HOURS PRN, mild pain, other, and adjunct with moderate or severe pain or per patient request, Starting on Sun06/16/24 at 2211, Alternate with ibuprofen if ordered. Maximum acetaminophen dose from all sources = 75 mg/kg/day not to exceed 4 grams/day. $Given 06/17/2024 3:03 AM LIGHTING ADVISER 650 mg acetaminophen (TYLENOL) tablet 975 mg 975 mg, Oral, 3 TIMES DAILY, First dose on Sun06/19/24 at 0930, Maximum acetaminophen dose from all sources = 75 mg/kg/day not to exceed 4 grams/day. $Given 06/20/2024 9:40 AM LIGHTING ADVISER 975 mg $Given 06/19/2024 10:14 PM LIGHTING ADVISER 975 mg $Given 06/19/2024 4:27 PM LIGHTING ADVISER 975 mg diclofenac (VOLTAREN) 1 % topical gel 2 g 2 g, Topical, 3 TIMES DAILY, First dose on Sun06/19/24 at 1730, Apply to left knee same time as menthol gel . Use supplied dosing card to measure dose. gabapentin (NEURONTIN) capsule 300 mg 300 mg, Oral, 2 TIMES DAILY, First dose on Sun06/17/24 at 0930 $Given 06/19/2024 11:15 AM LIGHTING ADVISER 300 mg $Given 06/19/2024 8:43 AM LIGHTING ADVISER 300 mg $Given 06/18/2024 12:08 PM LIGHTING ADVISER 300 mg gabapentin (NEURONTIN) capsule 400 mg 400 mg, Oral, AT BEDTIME, First dose on Sun06/17/24 at 2200 $Given 06/19/2024 10:14 PM LIGHTING ADVISER 400 mg $Given 06/18/2024 10:07 PM LIGHTING ADVISER 400 mg $Given 06/17/2024 10:25 PM LIGHTING ADVISER 400 mg gabapentin (NEURONTIN) capsule 400 mg 400 mg, Oral, 2 TIMES DAILY, First dose (after last modification) on Sun06/20/24 at 0800 $Given 06/20/2024 11:27 AM LIGHTING ADVISER 400 mg $Given 06/20/2024 9:40 AM LIGHTING ADVISER 400 mg HYDROmorphone (DILAUDID) injection 0.2 mg 0.2 mg, Intravenous, ONCE PRN, other, pain not controlled with oxy and assess response, Starting on Sun06/17/24 at 0554, For 1 dose $Given 06/17/2024 6:19 AM LIGHTING ADVISER 0.2 mg hydrOXYzine HCl (ATARAX) tablet 25-50 mg 25-50 mg, Oral, EVERY 6 HOURS PRN, other, adjuvant pain, Starting on Sun06/17/24 at 0108 $Given 06/20/2024 9:40 AM LIGHTING ADVISER 50 mg $Given 06/20/2024 3:09 AM LIGHTING ADVISER 25 mg $Given 06/19/2024 9:01 PM LIGHTING ADVISER 50 mg magnesium sulfate 2 g in 50 mL sterile water intermittent infusion 2 g, Intravenous, Administer over 60 Minutes, at 50 mL/hr, ONCE, On Sun06/19/24 at 0930, For 1 dose $New Bag 06/19/2024 11:15 AM LIGHTING ADVISER 2 g 50 mL/hr menthol (Topical Analgesic) 2.5% (BENGAY VANISHING SCENT) 2.5 % topical gel Topical, 3 TIMES DAILY, First dose on Sun06/19/24 at 1730, Apply to left knee with diclofenac gel methocarbamol (ROBAXIN) tablet 750 mg 750 mg, Oral, 4 TIMES DAILY PRN, muscle spasms, Starting on Sun06/16/24 at 2211 $Given 06/20/2024 9:40 AM LIGHTING ADVISER 750 mg $Given 06/20/2024 3:18 AM LIGHTING ADVISER 750 mg $Given 06/19/2024 9:01 PM LIGHTING ADVISER 750 mg naloxone (NARCAN) injection 0.2 mg 0.2 mg, Intravenous, EVERY 2 MIN PRN, opioid reversal, Starting on Sun06/17/24 at 0556, Administer intravenous route when available and notify [...] 2 MIN PRN, opioid reversal, Starting on Sun06/17/24 at 0556, Administer intramuscular if an intravenous route is [...] 2 MIN PRN, opioid reversal, Starting on Sun06/17/24 at 0556, Administer intravenous route when available and notify [...] 2 MIN PRN, opioid reversal, Starting on Sun06/17/24 at 0556, Administer intramuscular if an intravenous route is [...] have not improved after 4 naloxone doses. oxyCODONE (ROXICODONE) tablet 5 mg 5 mg, Oral, ONCE, On Sun06/16/24 at 1845, For 1 dose $Given 06/16/2024 6:51 PM LIGHTING ADVISER 5 mg oxyCODONE (ROXICODONE) tablet 5 mg 5 mg, Oral, ONCE, On Sun06/16/24 at 1945, For 1 dose $Given 06/16/2024 7:51 PM LIGHTING ADVISER 5 mg oxyCODONE IR (ROXICODONE) tablet 10 mg 10 mg, Oral, EVERY 4 HOURS PRN, severe pain, IF pain not managed with non-pharmacological and non-opioid interventions, Starting on Sun06/16/24 at 2211, May use concomitant with non-opioid analgesics. $Given 06/19/2024 5:07 AM LIGHTING ADVISER 10 mg $Given 06/18/2024 9:58 PM LIGHTING ADVISER 10 mg $Given 06/18/2024 5:45 PM LIGHTING ADVISER 10 mg oxyCODONE IR (ROXICODONE) tablet 10 mg 10 mg, Oral, EVERY 6 HOURS PRN, severe pain, IF pain not managed with non-pharmacological and non-opioid interventions, Starting on Sun06/19/24 at 0725, May use concomitant with non-opioid analgesics. $Given 06/20/2024 9:40 AM LIGHTING ADVISER 10 mg $Given 06/20/2024 3:09 AM LIGHTING ADVISER 10 mg $Given 06/19/2024 9:00 PM LIGHTING ADVISER 10 mg polyethylene glycol (MIRALAX) Packet 17 g 17 g, Oral, 2 TIMES DAILY PRN, constipation, Starting on Sun06/19/24 at 0900, 1 Packet = 17 grams. Mix each gram with at least 1/2 ounce (15 mL) of water - 8 ounces for 17 g dose, 4 ounces for 8.5 g dose, 2 ounces for 4 g dose. Follow with the same volume of water. Hold for loose stools unless being administered as part of a bowel prep regimen or bowel clean out. potassium & sodium phosphates (NEUTRA-PHOS) Packet 1 packet 1 packet, Oral or Feeding Tube, EVERY 4 HOURS, First dose on Sun06/17/24 at 0830, For 3 doses, Phosphorus level 1.1-1.9 mg/dL Administer 1 packet of oral or feeding tube phosphorus replacement x 3 doses. Ordered from the Phosphorus replacement order set., Phosphorus Replacement: Phosphorus level 1.1-1.9 mg/dL and Creatinine Clearance LESS than 30 mL/min, Recheck: Phosphorus level 2-4 hours after last oral or feeding tube dose $Given 06/17/2024 4:06 P M LIGHTING ADVISER 1 packet $Given 06/17/2024 11:58 AM LIGHTING ADVISER 1 packet $Given 06/17/2024 8:34 AM LIGHTING ADVISER 1 packet potassium & sodium phosphates (NEUTRA-PHOS) Packet 1 packet 1 packet, Oral or Feeding Tube, EVERY 4 HOURS, First dose on Sun06/19/24 at 1100, For 3 doses, Phosphorus level 2-2.4 mg/dL Administer 1 packet of oral or feeding tubephosphorus replacement x 3 doses and recheck phosphorus level next AM. Ordered from the Phosphorus replacement order set., Phosphorus Replacement: Phosphorus level 2-2.4 mg/dL and Creatinine Clearance GREATER than or EQUAL to 30 mL/min, Recheck: Phosphorus level next AM $Given 06/19/2024 8:50 PM LIGHTING ADVISER 1 packet $Given 06/19/2024 4:27 PM LIGHTING ADVISER 1 packet $Given 06/19/2024 11:15 AM LIGHTING ADVISER 1 packet potassium chloride (KLOR-CON) Packet 40 mEq 40 mEq, Oral, ONCE, On Sun06/16/24 at 2039, For 1 dose, Dissolve packet contents in 4-8 ounces of cold water or juice. $Given 06/16/2024 9:26 PM LIGHTING ADVISER 40 mEq potassium chloride 10 mEq in 100 mL sterile water infusion 10 mEq, Intravenous, Administer over 60 Minutes, at 100 mL/hr, ONCE, On Sun06/16/24 at 2039, For 1 dose $New 06/16/2024 9:26 PM LIGHTING ADVISER 10 mEq 100 mL/hr potassium chloride 10 mEq in 100 mL sterile water infusion 10 mEq, Intravenous, Administer over 60 Minutes, at 100 mL/hr, ONCE, On Sun06/17/24 at 0300, For 1 dose $New 06/17/2024 3:54 AM LIGHTING ADVISER 10 mEq 100 mL/hr potassium chloride 10 mEq in 100 mL sterile water infusion 10 mEq, Intravenous, Administer over 60 Minutes, at 100 mL/hr, EVERY HOUR, First dose on Sun06/17/24 at 0900, For 2 doses, Infuse via PERIPHERAL or CENTRAL LINE. Potassium level 3.1-3.4 mmol/L Administer 10 mEq potassium chloride IV x 2 doses and recheck potassium level 1-2 hours after last IV dose. Ordered from the Potassium replacement order set. $06/17/2024 10:52 AM LIGHTING ADVISER 10 mEq 100 mL/hr $06/17/2024 8:58 AM LIGHTING ADVISER 10 mEq 100 mL/hr potassium chloride 10 mEq in 100 mL sterile water infusion 10 mEq, Intravenous, Administer over 60 Minutes, at 100 mL/hr, EVERY HOUR, First dose on Sun06/17/24 at 1500, For 2 doses, Infuse via PERIPHERAL or CENTRAL LINE. Potassium level 3.1-3.4 mmol/L Administer 10 mEq potassium chloride IV x 2 doses and recheck potassium level 1-2 hours after last IV dose. Ordered from the Potassium replacement order set. $New 06/17/2024 4:45 PM LIGHTING ADVISER 10 mEq 100 mL/hr $06/17/2024 3:12 PM LIGHTING ADVISER 10 mEq 100 mL/hr potassium chloride deanne ER (KLOR-CON M20) CR tablet 20 mEq 20 mEq, Oral, ONCE, On Sun06/17/24 at 0430, For 1 dose, Potassium level less than 2.7 mmol/L Ordered from the Potassium replacement order set. DO NOT CRUSH, Potassium Replacement: Potassium level LESS than 2.7 mmol/L, Recheck: Potassium level 4 hours AFTER last oral dose $Given 06/17/2024 5:05 AM LIGHTING ADVISER 20 mEq potassium chloride deanne ER (KLOR-CON M20) CR tablet 40 mEq 40 mEq, Oral, 4 TIMES DAILY, First dose on Sun06/17/24 at 0800, DO NOT CRUSH $Given 06/18/2024 8:19 AM LIGHTING ADVISER 40 mEq $Given 06/17/2024 7:45 PM LIGHTING ADVISER 40 mEq $Given 06/17/2024 4:06 PM LIGHTING ADVISER 40 mEq potassium chloride deanne ER (KLOR-CON M20) CR tablet 40 mEq 40 mEq, Oral, ONCE, On Sun06/17/24 at 0230, For 1 dose, Potassium level less than 2.7 mmol/L Ordered from the Potassium replacement order set. DO NOT CRUSH, Potassium Replacement: Potassium level LESS than 2.7 mmol/L, Recheck: Potassium level 4 hours AFTER last oral dose $Given 06/17/2024 2:53 AM LIGHTING ADVISER 40 mEq potassium chloride deanne ER (KLOR-CON M20) CR tablet 40 mEq 40 mEq, Oral, 3 TIMES DAILY, First dose (after last modification) on Sun06/18/24 at 1600, DO NOT CRUSH $Given 06/20/2024 9:40 AM LIGHTING ADVISER 40 mEq $Given 06/19/2024 10:14 PM LIGHTING ADVISER 40 mEq $Given 06/19/2024 4:27 PM LIGHTING ADVISER 40 mEq prochlorperazine (COMPAZINE) injection 10 mg 10 mg, Intravenous, EVERY 6 HOURS PRN, nausea/vomiting - 2nd line, Administer over 1-2 Minutes, Starting on Sun06/16/24 at 2211, IF patient unable to tolerate oral medication. This is Step 2 of nausea and vomiting management. Give if nausea not resolved 15 minutes after giving ondansetron (ZOFRAN). prochlorperazine (COMPAZINE) tablet 10 mg 10 mg, Oral, EVERY 6 HOURS PRN, nausea/vomiting - 2nd line, Starting on Sun06/16/24 at 2211, This is Step 2 of nausea and vomiting management. Give if nausea not resolved 15 minutes after giving ondansetron (ZOFRAN). senna-docusate (SENOKOT-S/PERICOLACE) 8.6-50 MG per tablet 1 tablet 1 tablet, Oral, 2 TIMES DAILY PRN, constipation, Starting on Sun06/16/24 at 2211, If no bowel movement in 24 hours, [...] stools. senna-docusate (SENOKOT-S/PERICOLACE) 8.6-50 MG per tablet 1 tablet 1 tablet, Oral, 2 TIMES DAILY, First dose on Sun06/19/24 at 0930, Hold for loose stools. senna-docusate (SENOKOT-S/PERICOLACE) 8.6-50 MG per tablet 2 tablet 2 tablet, Oral, 2 TIMES DAILY PRN, constipation, Starting on Sun06/16/24 at 2211, IF more than 1 constipation PRN medication [...] Intracatheter, EVERY 8 HOURS, First dose on Sun06/16/24 at 2215, to lock peripheral IV dormant line $Given 06/20/2024 9:43 AM LIGHTING ADVISER 3 mLs $Given 06/19/2024 10:14 PM LIGHTING ADVISER 3 mLs $Given 06/19/2024 6:25 AM LIGHTING ADVISER 3 mLs sodium chloride (PF) 0.9% PF flush 3 mL 3 mL, Intracatheter, EVERY 1 MIN PRN, line flush, other, to ensure patency or to lock dormant line, Starting on Sun06/16/24 at 2211 $Given 06/20/2024 2:04 AM LIGHTING ADVISER 3 mLs $Given 06/19/2024 5:08 AM LIGHTING ADVISER 3 mLs $Given 06/17/2024 8:29 PM LIGHTING ADVISER 3 mLs sodium chloride 0.9% BOLUS 1,000 mL Intravenous, 1,000 mL, ONCE, On Sun06/16/24 at 2040, For 1 dose $New Bag 06/16/2024 9:23 PM LIGHTING ADVISER 1,000 mLs documented in this encounter Active and Recently Administered Medications Times are shown in LIGHTING ADVISER. Scheduled Medication Order 06/18/2024 06/19/2024 06/20/2024 acetaminophen (TYLENOL) tablet 975 mg 975 mg, Oral, 3 TIMES DAILY, First dose on Sun06/19/24 at 0930, Maximum acetaminophen dose from all sources = 75 mg/kg/day not to exceed 4 grams/day. 1114 (Not Given - Provider: Alesha Gallardo RN - Reason: Patient/family refused)1627 ($Given - Provider: Alesha Gallardo RN)2214 ($Given - Provider: Sherwin Brito RN) 0940 ($Given - Provider: Claudia Loera RN) diclofenac (VOLTAREN) 1 % topical gel 2 g(Linked Group 1) 2 g, Topical, 3 TIMES DAILY, First dose on Sun06/19/24 at 1730, Apply to left knee same time as menthol gel . Use supplied dosing card to measure dose. 1737 (Not Given - Provider: Alesha Gallardo RN - Reason: Patient/family refused)2214 (Not Given - Provider: Sherwin Brito RN - Reason: Patient/family refused) 0943 (Not Given - Provider: Claudia Loera RN - Reason: Patient/family refused) gabapentin (NEURONTIN) capsule 300 mg (CANCELED) 300 mg, Oral, 2 TIMES DAILY, First dose on Sun06/17/24 at 0930 0819 ($Given - Provider: Edith Cruz RN)1208 ($Given - Provider: Edith Cruz RN) 0843 ($Given - Provider: Alesha Gallardo RN)1115 ($Given - Provider: Alesha Gallardo RN) gabapentin (NEURONTIN) capsule 400 mg 400 mg, Oral, AT BEDTIME, First dose on Sun06/17/24 at 2200 2207 ($Given - Provider: Lucia Cohen RN) 2214 ($Given - Provider: Sherwin Brito RN) gabapentin (NEURONTIN) capsule 400 mg 400 mg, Oral, 2 TIMES DAILY, First dose (after last modification) on Sun06/20/24 at 0800 0940 ($Given - Provider: Claudia Loera RN)1127 ($Given - Provider: Edith Cruz RN) magnesium sulfate 2 g in 50 mL sterile water intermittent infusion (COMPLETED) 2 g, Intravenous, Administer over 60 Minutes, at 50 mL/hr, ONCE, On Sun06/19/24 at 0930, For 1 dose 1115 ($New Bag - Provider: Alesha Gallardo RN) menthol (Topical Analgesic) 2.5% (BENGAY VANISHING SCENT) 2.5 % topical gel(Linked Group 1) Topical, 3 TIMES DAILY, First dose on Sun06/19/24 at 1730, Apply to left knee with diclofenac gel 1738 (Not Given - Provider: Alesha Gallardo RN - Reason: Patient/family refused)2215 (Not Given - Provider: Sherwin Brito RN - Reason: Patient/family refused) 0943 (Not Given - Provider: Claudia Loera RN - Reason: Patient/family refused) potassium & sodium phosphates (NEUTRA-PHOS) Packet 1 packet (COMPLETED) 1 packet, Oral or Feeding Tube, EVERY 4 HOURS, First dose on Sun06/19/24 at 1100, For 3 doses, Phosphorus level 2-2.4 mg/dL Administer 1 packet of oral or feeding tubephosphorus replacement x 3 doses and recheck phosphorus level next AM. Ordered from the Phosphorus replacement order set., Phosphorus Replacement: Phosphorus level 2-2.4 mg/dL and Creatinine Clearance GREATER than or EQUAL to 30 mL/min, Recheck: Phosphorus level next AM 1115 ($Given - Provider: Alesha Gallardo RN)1627 ($Given - Provider: Alesha Gallardo RN)2050 ($Given - Provider: Sherwin Brito RN) potassium chloride deanne ER (KLOR-CON M20) CR tablet 40 mEq (CANCELED) 40 mEq, Oral, 4 TIMES DAILY, First dose on Sun06/17/24 at 0800, DO NOT CRUSH 0819 ($Given - Provider: Edith Cruz RN) potassium chloride deanne ER (KLOR-CON M20) CR tablet 40 mEq 40 mEq, Oral, 3 TIMES DAILY, First dose (after last modification) on Sun06/18/24 at 1600, DO NOT CRUSH 1547 ($Given - Provider: Edith Cruz RN)2158 ($Given - Provider: Lucia Cohen, DEVIN) 0838 ($Given - Provider: Alesha Gallardo RN)1627 ($Given - Provider: Alesha Gallardo RN)2214 ($Given - Provider: Sherwin Brito RN) 0940 ($Given - Provider: Claudia Loera RN) senna-docusate (SENOKOT-S/PERICOLACE) 8.6-50 MG per tablet 1 tablet 1 tablet, Oral, 2 TIMES DAILY, First dose on Sun06/19/24 at 0930, Hold for loose stools. 1115 (Not Given - Provider: Alesha Gallardo RN - Reason: Patient/family refused)2102 (Not Given - Provider: Sherwin Brito RN - Reason: Patient/family refused) 0942 (Not Given - Provider: Claudia Loera RN - Reason: Patient/family refused) sodium chloride (PF) 0.9% PF flush 3 mL 3 mL, Intracatheter, EVERY 8 HOURS, First dose on Sun06/16/24 at 2215, to lock peripheral IV dormant line 0527 (Not Given - Provider: Lucia Cohen RN - Reason: IV Infusing)1336 (Not Given - Provider: Edith Cruz RN - Reason: IV Infusing)2207 ($Given - Provider: Lucia CohenDEVIN) 0625 ($Given - Provider: Lucia Cohen RN)1415 (Canceled Entry - Provider: Alesha Gallardo, DEVIN)2214 ($Given - Provider: Sherwin Brito RN) 0943 ($Given - Provider: Claudia Loera RN) Continuous Medication Order 06/18/2024 06/19/2024 06/20/2024 0.9% sodium chloride + KCl 20 mEq/L infusion (CANCELED) at 100 mL/hr, Intravenous, CONTINUOUS, Starting on Sun06/16/24 at 2215, Until Emiliana 06/19/24 at 0909 0608 ($New Bag - Provider: Lucia Cohen RN)0851 (Held by provider - Provider: Mike Teran MD - Reason: Other)0856 (Stopped - Provider: Edith Cruz RN)1204 (Unheld by provider - Provider: Mike Teran MD)1208 (Restarted - Provider: Edith Cruz RN) PRN Medication Order 06/18/2024 06/19/2024 06/20/2024 albuterol (PROVENTIL HFA/VENTOLIN HFA) inhaler 1-2 puff, Inhalation, EVERY 4 HOURS PRN, shortness of breath, wheezing, cough, Starting on Sun06/16/24 at 2211, Check the dose counter on the inhaler to ensure there are doses remaining before administering. Prime by spraying into the air 4 times prior to first use and if not used within 2 weeks. calcium carbonate (TUMS) chewable tablet 1,000 mg 1,000 mg, Oral, 4 TIMES DAILY PRN, heartburn, Starting on Sun06/16/24 at 2211 hydrOXYzine HCl (ATARAX) tablet 25-50 mg 25-50 mg, Oral, EVERY 6 HOURS PRN, other, adjuvant pain, Starting on Sun06/17/24 at 0108 1335 ($Given - Provider: Edith Cruz RN)2157 ($Given - Provider: Lucia Cohen, DEVIN) 0507 ($Given - Provider: Lucia Cohen, RN)1118 ($Given - Provider: Alesha Gallardo RN)2101 ($Given - Provider: Sherwin Brito RN) 0309 ($Given - Provider: Lele Obrien, RN)0940 ($Given - Provider: Claudia Loera, RN) lidocaine (LMX4) cream Topical, EVERY 1 HOUR PRN, pain, with VAD insertion, Starting on Sun06/16/24 at 2211, Apply at least 30 minutes prior to [...] mild pain with VAD insertion, Starting on Sun06/16/24 at 2211, MAX dose 1 mL subcutaneous OR intradermal [...] Oral, AT BEDTIME PRN, sleep, Starting on Sun06/16/24 at 2211, Do not give unless at least 6 hours of uninterrupted sleep is expected. If patient has multiple medications ordered PRN sleep/insomnia, offer melatonin first. methocarbamol (ROBAXIN) tablet 750 mg 750 mg, Oral, 4 TIMES DAILY PRN, muscle spasms, Starting on Sun06/16/24 at 2211 2158 ($Given - Provider: Lucia Cohen RN) 0507 ($Given - Provider: Lucia Cohen, RN)1118 ($Given - Provider: Alesha Gallardo RN)2101 ($Given - Provider: Sherwin Brito RN) 0318 ($Given - Provider: Lele Obrien, DEVIN)0940 ($Given - Provider: Claudia Loera, RN) naloxone (NARCAN) injection 0.2 mg(Linked Group 2) 0.2 mg, Intravenous, EVERY 2 MIN PRN, opioid reversal, Starting on Sun06/17/24 at 0556, Administer intravenous route when available and notify [...] 2 MIN PRN, opioid reversal, Starting on Sun06/17/24 at 0556, Administer intramuscular if an intravenous route is [...] 2 MIN PRN, opioid reversal, Starting on Sun06/17/24 at 0556, Administer intravenous route when available and notify [...] 2 MIN PRN, opioid reversal, Starting on Sun06/17/24 at 0556, Administer intramuscular if an intravenous route is [...] have not improved after 4 naloxone doses. oxyCODONE IR (ROXICODONE) tablet 10 mg (CANCELED) 10 mg, Oral, EVERY 4 HOURS PRN, severe pain, IF pain not managed with non-pharmacological and non-opioid interventions, Starting on Sun06/16/24 at 2211, May use concomitant with non-opioid analgesics. 0032 ($Given - Provider: Lucia Cohen RN)0430 (Not Given - Provider: Lucia Cohen RN - Reason: Patient sleeping)0608 ($Given - Provider: Lucia Cohen RN)0942 ($Given - Provider: Edith Cruz, DEVIN)1335 ($Given - Provider: Edith Cruz, RN)1745 ($Given - Provider: Edith Cruz RN)2158 ($Given - Provider: Lucia Cohen, RN) 0507 ($Given - Provider: Lucia Cohen, RN) oxyCODONE IR (ROXICODONE) tablet 10 mg (CANCELED) 10 mg, Oral, EVERY 6 HOURS PRN, severe pain, IF pain not managed with non-pharmacological and non-opioid interventions, Starting on Sun06/19/24 at 0725, May use concomitant with non-opioid analgesics. 1114 ($Given - Provider: Alesha Gallardo RN)2100 ($Given - Provider: Sherwin Brito RN) 0309 ($Given - Provider: Lele Obrien, DEVIN)0940 ($Given - Provider: Claudia Loera, DEVIN) polyethylene glycol (MIRALAX) Packet 17 g 17 g, Oral, 2 TIMES DAILY PRN, constipation, Starting on Emiliana 06/19/24 at 0900, 1 Packet = 17 grams. Mix each gram with at least 1/2 ounce (15 mL) of water - 8 ounces for 17 g dose, 4 ounces for 8.5 g dose, 2 ounces for 4 g dose. Follow with the same volume of water. Hold for loose stools unless being administered as part of a bowel prep regimen or bowel clean out. prochlorperazine (COMPAZINE) injection 10 mg(Linked Group 3) 10 mg, Intravenous, EVERY 6 HOURS PRN, nausea/vomiting - 2nd line, Administer over 1-2 Minutes, Starting on Sun06/16/24 at 2211, IF patient unable to tolerate oral medication. This is Step 2 of nausea and vomiting management. Give if nausea not resolved 15 minutes after giving ondansetron (ZOFRAN). prochlorperazine (COMPAZINE) tablet 10 mg(Linked Group 3) 10 mg, Oral, EVERY 6 HOURS PRN, nausea/vomiting - 2nd line, Starting on Sun06/16/24 at 2211, This is Step 2 of nausea and vomiting management. Give if nausea not resolved 15 minutes after giving ondansetron (ZOFRAN). senna-docusate (SENOKOT-S/PERICOLACE) 8.6-50 MG per tablet 1 tablet(Linked Group 4) 1 tablet, Oral, 2 TIMES DAILY PRN, constipation, Starting on Sun06/16/24 at 2211, If no bowel movement in 24 hours, [...] 2 TIMES DAILY PRN, constipation, Starting on Sun06/16/24 at 2211, IF more than 1 constipation PRN medication [...] or to lock dormant line, Starting on Sun06/16/24 at 2211 0508 ($Given - Provider: Lucia Cohen RN) 0204 ($Given - Provider: Lele Obrien RN) Linked Groups Order Group 1: diclofenac (VOLTAREN) 1 % topical gel 2 gJump to med 2 g, Topical, 3 TIMES DAILY, First dose on Emiliana 06/19/24 at 1730, Apply to left knee same time as menthol gel . Use supplied dosing card to measure dose. And menthol (Topical Analgesic) 2.5% (BENGAY VANISHING SCENT) 2.5 % topical gelJump to med Topical, 3 TIMES DAILY, First dose on Emiliana 06/19/24 at 1730, Apply to left knee with diclofenac gel Group 2: naloxone (NARCAN) injection 0.2 mgJump to med 0.2 mg, Intravenous, EVERY 2 MIN PRN, opioid reversal, Starting on Sun06/17/24 at 0556, Administer intravenous route when available and notify [...] 2 MIN PRN, opioid reversal, Starting on Sun06/17/24 at 0556, Administer intravenous route when available and notify [...] 2 MIN PRN, opioid reversal, Starting on Sun06/17/24 at 0556, Administer intramuscular if an intravenous route is [...] 2 MIN PRN, opioid reversal, Starting on Sun06/17/24 at 0556, Administer intramuscular if an intravenous route is [...] improved after 4 naloxone doses. Group 3: prochlorperazine (COMPAZINE) injection 10 mgJump to med 10 mg, Intravenous, EVERY 6 HOURS PRN, nausea/vomiting - 2nd line, Administer over 1-2 Minutes, Starting on Sun06/16/24 at 2211, IF patient unable to tolerate oral medication. This is Step 2 of nausea and vomiting management. Give if nausea not resolved 15 minutes after giving ondansetron (ZOFRAN). Or prochlorperazine (COMPAZINE) tablet 10 mgJump to med 10 mg, Oral, EVERY 6 HOURS PRN, nausea/vomiting - 2nd line, Starting on Sun06/16/24 at 2211, This is Step 2 of nausea and vomiting management. Give if nausea not resolved 15 minutes after giving ondansetron (ZOFRAN). Group 4: senna-docusate (SENOKOT-S/PERICOLACE) 8.6-50 MG per tablet 1 tabletJump to med 1 tablet, Oral, 2 TIMES DAILY PRN, constipation, Starting on Sun06/16/24 at 2211, If no bowel movement in 24 hours, [...] 2 TIMES DAILY PRN, constipation, Starting on Sun06/16/24 at 2211, IF more than 1 constipation PRN medication is ordered, administer step-aguilar as indicated, moving to the next step ONLY if prior step ineffective. Step 1: senna-docusate (SENOKOT-S; PERICOLACE) OR bisacodyl (DULCOLAX) EC tablet Step 2: polyethylene glycol (MIRALAX/GLYCOLAX) Step 3: bisacodyl (DULCOLAX) suppository Step 4: enema Hold for loose stools. documented in this encounter Care Teams Cytogenetic Technician Relationship Specialty [place] [address] [place] [address] PCP - General 03/07/24 documented as of this encounter
--- OUTSIDE RECORDS SUMMARY | 2024-07-08 17:32 | XMS_ITS | Encounter Summary ---
Author Organization [facility] Address [address] [place] [address]. [place] [address] Care Team Providers Care Cigarette Making Machine Hopper Feeder Name Role Phone Gregg Corrales MD Primary Care Provider Encounter Details Date Type Department Care Team (Late st Contact Info) Description 06/13/2024 Medical Correspondence [facility] [address] [facility] [address] [place] [address] Scan, Non-Provider Social History Tobacco Use Types Packs/Day Years [...] in an abandoned building, in an overnight detention, or couch-surfing.) Yes 06/17/2024 Are you worried [...] on file Legal Sex Female 4:48 AM LABORER/KEY MAN Gender Identity Not on file Sexual Orientation Not on file 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 Not on file Not on file documented as of this encounter Plan of Treatment Upcoming Encounters Date Type Department Care Team (Late st Contact Info) Description 07/09/2024 11:00 AM LABORER/KEY MAN Virtual Visit [facility] [address] [facility] [address] [address] [place] [address] [place] [address] [place], [address] [facility] [address] [place], [place] [address] documented as of this encounter Visit Diagnoses Not on filedocumented in this encounter Care Teams Cigarette Making Machine Hopper Feeder Relationship Specialty Start [place] [address] [place], [place] [id number] PCP - General 03/07/24 documented as of this encounter
--- OUTSIDE RECORDS SUMMARY | 2024-07-08 17:32 | XMS_ITS | Encounter Summary ---
Author Organization [facility] Address [address] [place] [address]. 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 file Not on file documented as of this encounter Plan of Treatment Upcoming Encounters Date Type Department Care Team (Late st Contact Info) Description 07/09/2024 11:00 AM ELECTRIC TRACK SWITCH MAINTAINER Virtual Visit [facility] [address] [facility] [address] [address] [place] [address] [place], [place] [id number] [place] [address] [facility] [address] [place] [address] documented as of this encounter Visit Diagnoses Not on filedocumented in this encounter Care Teams President Financial Institution Relationship Specialty Start [place] [address] [place] [address] PCP - General 03/07/24 documented as of this encounter
--- OUTSIDE RECORDS SUMMARY | 2024-07-08 17:33 | XMS_ITS | Encounter Summary ---
[facility] [address], [place] [address] Care Team Providers Care Stone Gluer Name Role Phone Leyda SANTOS MD, Mary Torres Primary Care Provider [phone]- [phone] Encounter Details Date Type Department Care Team [...] on filedocumented in this encounter Care Teams Stone Gluer Relationship Specialty Start Date End Date Mary Crabtree III, MD [address] [place] [address] PCP - General Family Practice 03/31/15 documented as of this encounter
--- OUTSIDE RECORDS SUMMARY | 2024-07-08 17:33 | XMS_ITS | Encounter Summary ---
[facility] Address [address], [place] [address] Care Team Providers Care Costume Director Name Role Phone Leyda SANTOS MD, Mary Torres Primary Care Provider [phone]- [phone] Encounter Details Date Type Department Care Team (Late st Contact Info) Description 01/03/2016 Consent for Procedure/Treatme nt [facility] Department INFORMED CONSENT RECORD Social History [...] on filedocumented in this encounter Care Teams Costume Director Relationship Specialty Start Date End Date Mary Crabtree III, MD [address] [place] [address] PCP - General Family Practice 03/31/15 documented as of this encounter
--- OUTSIDE RECORDS SUMMARY | 2024-07-08 17:33 | XMS_ITS | Encounter Summary ---
Author [facility] Address [address] [address] Care Team Providers Care Plasterer Journeyman Name Role Phone Leyda SANTOS MD, Mary Torres Primary Care Provider [phone]- [phone] Encounter Details Date Type Department Care Team [...] on filedocumented in this encounter Care Teams Plasterer Journeyman Relationship Specialty Start Date End Date Mary Crabtree III, MD [address] [place] [address] PCP - General Family Practice 03/31/15 documented as of this encounter
--- OUTSIDE RECORDS SUMMARY | 2024-07-08 17:33 | XMS_ITS | Encounter Summary ---
Author Organization [facility] Address [address], [place] [address] Care Team Providers Care Trolley Wire Installer Name Role Phone Leyda SANTOS MD, Mary Torres Primary Care Provider [phone]- [phone] Encounter Details Date Type Department Care Team [...] on filedocumented in this encounter Care Teams Trolley Wire Installer Relationship Specialty Start Date End Date Mary Crabtree III, MD [address] [place] [address] PCP - General Family Practice 03/31/15 documented as of this encounter
--- OUTSIDE RECORDS SUMMARY | 2024-07-08 17:33 | XMS_ITS | Encounter Summary ---
[facility] Address [address] [address] Care Team Providers Care Security Officer Name Role Phone Leyda SANTOS MD, Mary Torres Primary Care Provider +1- [phone] Encounter Details Date Type Department Care Team (Late st Contact Info) Description 05/12/2017 Outside Hospital External to [facility], Provider H AND P Social History [...] filedocumented in this encounter Care Teams Security Officer Relationship Specialty Start Date End Date Mary Crabtree III, MD [address] [place] [address] PCP - General Family Practice 03/31/15 documented as of this encounter
--- OUTSIDE RECORDS SUMMARY | 2024-07-08 17:33 | XMS_ITS ---
Author Organization [place] Address [address] [place] [address] Care Team Providers Care Scientific Associate Name Role Phone Gregg Corrales MD Primary Care Provider Transitional Care Management Status:Closed (Closed) Start date:05/20/2024 Enrollment date:05/21/2024 End date:06/03/2024 Close reason:Goals met Continued Care and Services Coordination
--- OUTSIDE RECORDS SUMMARY | 2024-07-08 17:33 | XMS_ITS | Encounter Summary ---
Author Organization [facility] Address [address] [place] [address] Care Team Providers Care General Road Foreman Name Role Phone Leyda SANTOS MD, Mary Torres Primary Care Provider +1- [phone] Encounter Details Date Type Department Care Team (Late st Contact Info) Description 03/30/2016 Correspondence [facility] [address] [place], [place] [id number] Mary Crabtree III, MD [address] [place], [place] [id number] 03-06 PLAN OF CARE Social History Tobacco [...] on filedocumented in this encounter Care Teams General Road Foreman Relationship Specialty Start Date End Date Mary Crabtree III, MD [address] [place] [address] PCP - General Family Practice 03/31/15 documented as of this encounter
--- OUTSIDE RECORDS SUMMARY | 2024-07-08 17:33 | XMS_ITS | Encounter Summary ---
[facility] Address [address] [place] [address] Care Team Providers Care Milling Machine Tender Name Role Phone Leyda SANTOS MD, Mary Torres Primary Care Provider +1- [phone] Encounter Details Date Type Department Care Team (Late st Contact Info) Description 07/14/2017 Outside Hospital External to [facility], Provider H AND P Social History [...] on filedocumented in this encounter Care Teams Milling Machine Tender Relationship Specialty Start Date End Date Mary Crabtree III, MD [address] [place] [address] PCP - General Family Practice 03/31/15 documented as of this encounter
--- OUTSIDE RECORDS SUMMARY | 2024-07-08 17:33 | XMS_ITS | Clinical Summary ---
Author Organization [facility] Address [address] [place] [address] Care Team Providers Care Consultant In Ergonomics And Safety Name Role Phone Leyda SANTOS MD, Mary Torres Primary Care Provider +1- [phone] Source Comments You are receiving this document [...] for each transition of care or referral. [facility] Allergies Active Allergy Reactions Criticality Noted Date [...] doctors who care for you at the [facility] are concerned about your recent visits. Our goal is providing quality and consistent care on each visit, to help you improve your overall health. We want to let you know about the care plan recently created for you by our team of health spiritual care coordinator. A care plan is a way to help our staff provide you with reliable care during any future visits to the [facility]. We are concerned about your recent visits for the following reasons: In the last twelve months you have had 20 visits to the Emergency Department for Hypokalemia and muscle pain requiring narcotic medications. We v e noticed a pattern of visiting the Emergency Department for routine healthcare needs rather than true emergencies. Routine healthcare needs are best addressed by a primary care physician in a clinic. We v e noticed a pattern of using the Emergency Department for routine care that is better managed by a Channel Opener or structural steel painter who can help you with your chronic medical illnesses. We v e noticed a pattern of frequent non-emergent visits during which you request medications with a high potential for addiction for treatment of chronic medical illnesses (such as strong pain medications). We v e noticed a pattern of not complying with the treatment recommended by your regular doctors, causing repeated worsening in your health. To provide you with reliable care in the future, we plan to do the following: We will not give you intravenous or intramuscular injections of controlled substances to treat worsening chronic pain. We will treat acute pain, but will maximize non narcotic pain management. We will not give you intravenous or intramuscular injections of benzodiazepines for your chronic pain/anxiety. We will interview and examine you any time you come to the ER to identify and treat new or dangerous medical illnesses that are true emergency conditions. We will not provide refills of your regular medications. We will not discharge you with prescriptions for medications with the potential for addiction to treat your non-emergent chronic medical illnesses. Details about this careplan will be posted within your medical record in [facility] to help the emergency department staff and clinic staff. We may check with the [place] Prescription Monitoring Program to evaluate your recent controlled substance prescriptions. We may request that you sign a [...] do not have an emergency medical condition. We will discuss options for treating your chronic pain symptoms with medications that don t have a potential for addiction. We will discuss how strong pain medications or anxiety medications change how your body works, and can often make your chronic pain worse. We may request a urine specimen to check for illegal drugs in your body. Because illegal drugs can act together with medications we prescribe, we may limit the types of medications we treat you with during or after your emergency department visit. We will work to help you access your primary care doctor for managing your chronic symptoms. We will help you find a primary care physician to help manage your chronic medical illnesses. Primary care physicians are experts in helping patients manage their illness by finding treatments to control and reduce your symptoms. You are expected to keep scheduled appointment as directed. We will refer you to your primary care doctor to establish a plan to manage and hopefully improve your symptoms of chronic pain. We will refer you to a specialist to help provide care for your condition. This specialist can help us personalize this care plan we use during future visits to the emergency department. We welcome a calm and respectful discussion about your care or any questions you have, even if you disagree with our recommendations. We will not tolerate any type of [...] care. During or after your visit, our case resource manager will help you connect with additional resources in the community so you can improve your overall health. We want to you to know what resources are available to you right now: Case Management: The emergency department case resource manager can help answer questions about your care plan and record any concerns you may have about this plan. Most importantly, they are available to help connect you to other resources until you have built a relationship with a primary care provider. To speak with a telehealth case manager, please contact [phone] or [phone]. Primary Care Providers: Your primary care doctor can work with you to stabilize your medical illnesses. This may require more frequent visits or changing your treatment plan. You are expected to work with your primary care doctor to help control your disease. If you do not have a primary care doctor, our telehealth case manager can help you determine your best options for receiving reliable primary care. Specialty care: Working with a specialist (xxx) may be required to get your illnesses or injuries under control. Following the treatment plan recommended by your specialist is essential to controlling your medical illnesses. If you do not have a specialty care doctor, our telehealth case manager can help you determine your best options for referral. Crisis line: [facility] has an adult mental health service crisis unit to help those with mental illnesses. Call [phone] for assistance. Financial counseling: [facility] financial counselors are available to answer your questions about your account with our hospital as well as your options for enrolling in a health insurance plan. You may contact them directly at [phone] Chemical dependency: [facility] offers evaluation to residents for treatment for chemical dependency, including addiction to alcohol, street drugs, or prescription medications. Call [phone] to arrange for an evaluation. We know [...] to receive the best possible healthcare. Our case resource manager are available to further help connect you with your best options for care. Please contact them at [phone] or [phone] Sincerely, [facility] Care Plan Committee CAREPLAN: [facility] DISEASE MANAGEMENT 6 05/02/2017 Overview (03/08/2016): Background: Engaged in Complex Case Management:Bambi Cloud, RN [phone] Goals/Recommendations: PT CARE COORDINATION - HEALTH HALF-WAY 12/30/2015 09/17/2017 Overview (03/06/2016): Pt enrolled in [...] AM Assessment & Plan (08/25/2016 10:52 AM DINKEY LOCOMOTIVE OPERATOR): Contacted pt to f/u on recent ED [...] AM Assessment & Plan (07/28/2016 11:11 AM DINKEY LOCOMOTIVE OPERATOR): Contacted pt to see how she is [...] AM Assessment & Plan (07/14/2016 11:48 AM DINKEY LOCOMOTIVE OPERATOR): Pt answered positively to PHQ9 #9. Denies [...] clinic on a same day basis with Tarng Porras. See TE for provider documentation. Pt [...] working with the doctors to find a longterm tx plan. Pt notes that she has not been following up regularly for clinic and lab visits because of this frustration with her prognosis(i.e.-she is not improving). Photocopying Equipment Mechanic expressed understanding, but also noted that this [...] any concerns/questions regarding her care. Laura Rader RN 07/14/2016, 11:27 AM Assessment & Plan (07/13/2016 4:13 PM DINKEY LOCOMOTIVE OPERATOR): Left message to return call. Pt seen in ED 07/07/16 for fall and weakness. Advised to f/u with nephrology. Has not seen or scheduled with them. Calling to see how pt is doing. Laura Rader RN 07/13/2016, 4:12 PM Assessment & Plan (06/29/2016 3:21 PM DINKEY LOCOMOTIVE OPERATOR): Pt notes that she continues to have [...] PM Assessment & Plan (05/19/2016 11:11 AM DINKEY LOCOMOTIVE OPERATOR): Message sent to D&CM to review pt [...] 10/18/1992, 2,1991,1990 Influenza IIV4 (Quadrivalent ) 0.5mL (68015) 2015(Deferred: Patient Refused) MCV4 (Menactra) 04/19/2009 MMR [...] 97 09/10/2020 7:21 PM CDT Temperature 37.1 C (98.7 F) 09/10/2020 7:21 PM CDT Respiratory Rate 16 09/10/2020 7:21 PM CDT [...] Completed 11/15/2009, 10/24, 04/19/2009, Additional history exists Pneumococcal Aged Out No longer eligi ble [...] 5:04 PM 06/22/2016 2:38 PM Care Teams Consultant In Ergonomics And Safety Relationship Specialty Start Date End Date Mary Crabtree III, MD [address] [place] [address] PCP - General Family Practice 03/31/15
--- OUTSIDE RECORDS SUMMARY | 2024-07-08 17:33 | XMS_ITS | Encounter Summary ---
Author Organization [facility] Address [address] [place] [address]. [place] [address] Care Team Providers Care Junior Analyst Name Role Phone Stephon Corrales MD Primary Care Provider [phone] Gregg Corrales MD Primary Care Provider Encounter Details Date Type Department Care Team ([facility] Contact Info) Description 06/09/2021 Documentation Only INTERFACED REPORT Unknown, Provider Social History Tobacco Use Types Packs/Day Years Used Date Smoking Tobacco: Never Smokeless Tobacco: Never Alcohol Use Standard Drinks/Week Comments No 0 (1 standard drink = 0.6 oz pur e alcohol) Comments No Sex and Gender Information Value Date Recorded Sex Assigned at Not on file Legal Sex Female 4:48 AM TILLER WORKER Gender Identity Not on file Sexual Orientation Not on file 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 No / Unsure 06/09/2021 12:49 PM TILLER WORKER documented as of this encounter Plan of Treatment Upcoming Encounters Date Type Department Care Team ([facility] Contact Info) Description 07/09/2024 11:00 AM TILLER WORKER Virtual Visit [facility] [address] [address] [place] [address] [place] [address] [place], [facility] [address] [facility] [address] [place] [address] documented as of this encounter Visit Diagnoses Not on filedocumented in this encounter Additional Health Concerns Infection Onset Date Last Indicated Resolved Time Rule Out COVID-19 04/30/2022 04/30/2022 04/30/2022 12:25 PM TILLER WORKER Rule Out COVID-19 05/16/2022 05/16/2022 05/16/2022 6:08 PM TILLER WORKER Rule Out C-difficile 05/16/2022 05/17/2022 022 11:51 AM TILLER WORKER Rule Out COVID-19 07/01/2024 07/01/2024 07/01/2024 12:22 PM TILLER WORKER documented as of this encounter Care Teams Junior Analyst Relationship Specialty Start Date End Date Stephon Corrales MD [facility] [address] [place] [address] PCP - General 02/09/21 03/06/24 [place] [address] [place] [address] PCP - General 03/07/24 documented as of this encounter
--- OUTSIDE RECORDS SUMMARY | 2024-07-08 17:33 | XMS_ITS | Encounter Summary ---
Author [facility] Address [address], [place] [address] Care Team Providers Care Head Stock Transfer Clerk Name Role Phone Leyda SANTOS MD, Mary Torres Primary Care Provider [phone]- [phone] Encounter Details Date Type Department Care Team [...] on filedocumented in this encounter Care Teams Head Stock Transfer Clerk Relationship Specialty Start Date End Date Mary Crabtree III, MD [address] [place] [address] PCP - General Family Practice 03/31/15 documented as of this encounter
--- OUTSIDE RECORDS SUMMARY | 2024-07-08 17:33 | XMS_ITS | Encounter Summary ---
Author Organization [facility] Address [address], [place] [address] Care Team Providers Care Responder Name Role Phone Leyda SANTOS MD, Mary Torres Primary Care Provider [phone]- [phone] Encounter Details Date Type Department Care Team [...] on filedocumented in this encounter Care Teams Responder Relationship Specialty Start Date End Date Mary Crabtree III, MD [address] [place] [address] PCP - General Family Practice 03/31/15 documented as of this encounter
--- OUTSIDE RECORDS SUMMARY | 2024-07-08 17:33 | XMS_ITS | Encounter Summary ---
Author Organization [facility] Address [address] [address] Care Team Providers Care Machine Pecan Picker Name Role Phone Leyda SANTOS MD, Mary Torres Primary Care Provider [phone]- [phone] Encounter Details Date Type Department Care Team [...] filedocumented in this encounter Care Teams Machine Pecan Picker Relationship Specialty Start Date End Date Mary Crabtree III, MD [address] [place] [address] PCP - General Family Practice 03/31/15 documented as of this encounter
--- OUTSIDE RECORDS SUMMARY | 2024-07-08 17:33 | XMS_ITS | Encounter Summary ---
Author Organization [facility] Address [address] [place] [address] Care Team Providers Care Modeling Manager Name Role Phone Mary Crabtree MD Primary Care Provider [phone] Gregg Corrales MD [facility] + Stephon Corrales MD Primary Care Provider [phone] Gregg Corrales MD Primary Care Provider Reason for Visit * Reason Onset Date Comments MH/CD Inpatient 03/15/2015 Encounter Details Date Type Department Care Team (Late st Contact Info) Description 03/15/2015 Telephone [facility] Behavioral Health Intake [address] [place] [phone] Generic, Behavioral Intake, MH/CD Inpatient Social History Tobacco Use Types Packs/Day Years Used Date Smoking Tobacco: Never Alcohol Use Standard Drinks/Week Comments No 0 (1 standard drink = 0.6 oz pur e alcohol) Comments Unknown Sex and Gender Information Value Date Recorded Sex Assigned at Not on file Legal Sex Female 4:48 AM PRODUCT DEVELOPMENT CONSULTANT Gender Identity Not on file Sexual Orientation Not on file documented as of this encounter Miscellaneous Notes * Telephone Encounter - Riccardo Dudaisy Smith - 03/15/2015 4:23 PM CDT S; pt [...] st Contact Info) Description 07/09/2024 11:00 AM PRODUCT DEVELOPMENT CONSULTANT Virtual Visit [facility] [address] [facility] [address] [address] [place] [address] [place] [address] [place] [address] [facility] [address] [place], [place] [address] documented as of this encounter Visit Diagnoses Not on filedocumented in this encounter Additional Health Concerns Infection Onset Date Last Indicated Resolved Time Rule Out COVID-19 10/31/2019 10/31/2019 11/01/2019 12:18 PM CDT Rule Out COVID-19 04/30/2022 04/30/2022 04/30/2022 12:25 PM PRODUCT DEVELOPMENT CONSULTANT Rule Out COVID-19 05/16/2022 05/16/2022 05/16/2022 6:08 PM PRODUCT DEVELOPMENT CONSULTANT Rule Out C-difficile 05/16/2022 05/17/2022 022 11:51 AM PRODUCT DEVELOPMENT CONSULTANT Rule Out COVID-19 07/01/2024 07/01/2024 07/01/2024 12:22 PM PRODUCT DEVELOPMENT CONSULTANT documented as of this encounter Care Teams Modeling Manager Relationship Specialty Start Date End Date Mary Crabtree MD [address] [place] [address] PCP - General Family Practice 03/15/15 03/06/18 [place] [address] [place], [place] [id number] PCP - General 03/07/18 08/09/19 [facility] [address] [place] [phone] PCP - General 08/10/19 02/08/21 Stephon Corrales MD [facility] [id number] [place] [address] PCP - General 02/09/21 03/06/24 [place] [address] [place] [address] PCP - General 03/07/24 documented as of this encounter
--- OUTSIDE RECORDS SUMMARY | 2024-07-08 17:33 | XMS_ITS | Encounter Summary ---
Author Organization [facility] Address [address], [place] [address] Care Team Providers Care Game Developer Name Role Phone Leyda SANTOS MD, Mary Torres Primary Care Provider [phone]- [phone] Encounter Details Date Type Department Care Team (Late st Contact Info) Description 03/13/2016 Consent for Procedure/Treatme nt [facility] Department INFORMED CONSENT RECORD Social [...] on filedocumented in this encounter Care Teams Game Developer Relationship Specialty Start Date End Date Mary Crabtree III, MD [address] [place] [address] PCP - General Family Practice 03/31/15 documented as of this encounter
--- OUTSIDE RECORDS SUMMARY | 2024-07-08 17:33 | XMS_ITS | Encounter Summary ---
Author [facility] Address [address] [place] [address] Care Team Providers Care Bus And Sys Integration Senior Manager Name Role Phone Leyda SANTOS MD, Mary Torres Primary Care Provider [phone]- [phone] Encounter Details Date Type Department Care Team (Late st Contact Info) Description 10/03/2015 Scanned History External to Transferred Record, Provider [facility] Social History Tobacco Use Types Packs/Day [...] on filedocumented in this encounter Care Teams Bus And Sys Integration Senior Manager Relationship Specialty Start Date End Date Mary Crabtree III, MD [address] [place] [address] PCP - General Family Practice 03/31/15 documented as of this encounter
--- OUTSIDE RECORDS SUMMARY | 2024-07-08 17:33 | XMS_ITS | Clinical Summary ---
Author Organization [facility] Address [address] [address] Phone Care Team Providers Care Customer Success Advocate Name Role Phone Elsewhere, Pcp Primary Care [...] on file Legal Sex Female 8:53 PM MOTOR RACER Gender Identity Not on file Sexual Orientation Not on file Obstetrics History Last Filed Vital Signs Vital Sign Reading Time Taken Comments Blood Pressure 106/72 08/20/2012 10:41 AM MOTOR RACER Pulse 68 08/20/2012 10:41 AM MOTOR RACER Temperature 36.5 C (97.7 F) 08/20/2012 10:41 AM MOTOR RACER Respiratory Rate 12 08/20/2012 10:41 AM MOTOR RACER Oxygen Saturation 100% 07/11/2012 2:31 PM MOTOR RACER Inhaled Oxygen Concentration - - Weight 53.3 kg (117 lb 9.6 oz) 08/20/2012 10:41 AM MOTOR RACER Height 170.2 cm (5' 7) 07/11/2012 2:31 PM MOTOR RACER Body Mass Index 18.42 07/11/2012 2:31 PM MOTOR RACER Plan of Treatment Health Maintenance Due Date Last Done Comments Cervical Cancer Screening 1991 Last pap w/ HPV Testing 1991 Last pap w/o HPV Testing 1991 Hepatitis B Vaccine (Standin g Order) (1 of 3 - 19+ 3-dose series) 2010 PERTUSSIS (Standing Order) 2010 TETANUS (Standing Order) 2010 COVID-19 Vaccine (2023-2 5 season) 2024 Influenza Vaccine Seasonal (Standing Order) (#1) 2024 HPV Vaccine (Standing Order) Aged Out No longer eligible based on patient's age to complete this topic Pneumococcal/PCV20 Vaccine: Pediatrics (2-5 yrs) and At-Risk Patients (6-64 yrs) (Standing Order) Aged Out No longer eligible b ased on patient's age to complete this topic Insurance OTHER STATE BCBS MERGED WITH [facility] BCBS [facility] BCBS OF [place] Care Teams Customer Success Advocate Relationship Specialty Start Date End Date Elsewhere, Pcp PCP - General 12/24/15
--- OUTSIDE RECORDS SUMMARY | 2024-07-08 17:33 | XMS_ITS | Encounter Summary ---
Author Organization [facility] Address [address] [place] [address] Care Team Providers Care Manager Aerospace Name Role Phone Leyda SANTOS MD, Mary Torres Primary Care Provider [phone]- [phone] Encounter Details Date Type Department Care Team (Late st Contact Info) Description 04/15/2015 Consent for Procedure/Treatme nt [facility] Department INFORMED CONSENT RECORD Social [...] on filedocumented in this encounter Care Teams Manager Aerospace Relationship Specialty Start Date End Date Mary Crabtree III, MD [address] [place] [address] PCP - General Family Practice 03/31/15 documented as of this encounter
--- OUTSIDE RECORDS SUMMARY | 2024-07-08 17:33 | XMS_ITS | Encounter Summary ---
Author Organization [facility] Address [address] [place] [id number] Care Team Providers Care Maintenance Helper Utility Engineer Name Role Phone Gregg Corrales MD Primary Care Provider Reason for Visit * Reason Comments Syncope Abnormal Labs * Auth/Cert (Routine) Specialty Diagnoses / Procedures Referred By Contac t Referred To Contact benefits coordinator Diagnoses Alkalosis Hypercalcemia Hypokalemia Gitelman disease BARBARA (acute kidney injury) Gitelman disease Hypokalemia BARBARA (acute kidney injury) (H) Hypercalcemia Alkalosis M [facility] [address] [place] [address] Phone: tel: fax: Referral ID Status Reason Start Date Expiration Date Visits Re quested Visits Authorized [id number] 1 1 Encounter Details Date Type Department Care Team (Late st Contact Info) Description 05/29/2024 1:58 PM SEPARATING MACHINE OPERATOR - 05/31/2024 5:58 PM SEPARATING MACHINE OPERATOR Hospital Encounter [facility] [address] [place] [address] Jamil Carlin MD [facility] [address] [place], [place] [address] Azar Umanzor MD [address] [place] [address] Hypokalemia; BARBARA (acute kidney injury); Hypercalcemia; Alkalosis; Gitelman disease Discharge Disposition: Left Against Medical Advice Social [...] you got money to buy more? No 05/30/2024 Within the past 12 months, d id the food you bought just not last and you didn t have money to get more? No 05/30/2024 Housing Stability Answer Date Recorded Do you have housing? (Felice iraheta is defined as stable permanent housing and does not include staying ouside in a car, in a tent, in an abandoned building, in an overnight prison, or couch-surfing.) Yes 05/30/2024 Are you worried about losing your housing? No 05/30/2024 Financial Resource Strain Answer Date R ecorded Within the past 12 months, h ave you or your family members you live with been unable to get utilities (heat, electricity) when it was really needed? No 05/30/2024 Transportation Needs Answer Date Record ed Within the past 12 months, h as lack of transportation kept you from medical appointments, getting your medicines, non-medical meetings or appointments, work, or from getting things that you need? No 05/30/2024 Interpersonal Safety Answer Date Record ed Do you feel physically and e motionally safe where you currently live? Yes 05/29/2024 Within the past 12 months, h ave you been hit, slapped, kicked or otherwise physically hurt by someone? No 05/29/2024 Within the past 12 months, h ave you been humiliated or emotionally abused in other ways by your partner or ex-partner? 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 Not on file Not on file documented as of this encounter Last Filed Vital Signs Vital Sign Reading Time Taken Comments Blood Pressure 131/90 05/31/2024 4:00 PM SEPARATING MACHINE OPERATOR Pulse 82 05/31/2024 4:00 PM SEPARATING MACHINE OPERATOR Temperature 36.7 C (98 F) 05/31/2024 4:00 PM SEPARATING MACHINE OPERATOR Respiratory Rate 18 05/31/2024 4:00 PM SEPARATING MACHINE OPERATOR Oxygen Saturation 98% 05/31/2024 4:00 PM SEPARATING MACHINE OPERATOR Inhaled Oxygen Concentration - - Weight 50.2 kg (110 lb 10.7 oz) 05/31/2024 8:23 AM SEPARATING MACHINE OPERATOR Height 170.2 cm (5' 7) 05/29/2024 1:48 PM SEPARATING MACHINE OPERATOR Body Mass Index 17.33 05/29/2024 1:48 PM SEPARATING MACHINE OPERATOR documented in this encounter Discharge Summaries * Emeterio Solorzano MD - 05/31/2024 5:58 PM CST [facility] Discharge Summary Name: Lorraine Klein Date of : 1990 Age: [age] year old Date of Discharge: 05/31/2024 5:58 PM Date of Admission: 05/29/2024 Primary Care Provider: Gregg Corrales Discharge Physician: Jacob Solorzano MD Discharging Service: Hospitalist Hospital Course/Discharge Diagnoses: Please see progress note from earlier today regarding the intended plan of care. Patient signed outAGAINST MEDICAL ADVICE in the evening. I was not in the hospital at that time and unable to see thepatient prior to her leaving. Total time spent in face to face contact with the patient and coordinating discharge was: 10 Minutes. RATING MACHINE OPERATOR documented in this encounter Medications at Time [...] as needed for nausea or vomiting. senna-docusate (SENOKOT-S/TOBY LACE) 8.6-50 MG tabletIndications :Closed fracture of single ramus of right pubis, with delayed healing, subsequent encounter Take 1 tablet by mouth 2 times daily as needed for constipation. 03/23/2024 traMADol (ULTRAM) 50 MG tablet Take 50 mg by mouth 2 times daily as needed for severe pain. multivitamin, therapeutic (THERA-VIT) TABS Take 1 tablet by mouth daily 5 oxyCODONE (ROXICODONE) 5 MG tablet Take 5 mg by mouth every 6 hours as needed for severe pain. 4 potassium chloride deanne ER (KLOR-CON M20) 20 MEQ CR tablet Take 80 mEq by mouth 3 times daily. 4 spironolactone (ALDACTONE) 50 MG tablet Take 50 mg by mouth at bedtime. 4 documented as of this encounter Progress Notes * Emeterio Solorzano MD - 05/31/2024 4:05 PM CST Update: CT of knee negative for fracture. Continuing w/ current pain management plan as set forth by Pain Management service. Emeterio Solorzano MD RATING MACHINE OPERATOR * Emeterio Solorzano MD - 05/31/2024 1:51 PM CST [facility] Hospitalist Progress Note Assessment & Plan Lorraine Klein is a 34 year old female with a past medical history of Gitelman syndrome with recurrent hypokalemia, hypomagnesemia and hypercalcemia, iron deficiency anemia, fibromyalgia, chronicpain syndrome on gabapentin and MDD who presented with recurrent syncope and abnormal labs as well as left knee pain. honorio comes in again with abnormal labs. She was seen by her PCP for hospital follow-up 2 days prior to presentation. She was found to have a potassium level of 2 and a creatinine level of 4 prompting her PCP to refer her to the ED. She has been having ongoing nausea, increased urinary frequency. She had a syncopal episode about 2 days ago. She tells me that she fell down about 5 stairs and hurther left ankle and left knee. She is not sure how long she was out for. She denies any current chest pain. She does note pain mainly of the left knee and left ankle after fall. She has been using gabapentin, Robaxin and tramadol for pain management. In the ED, patient was afebrile and hemodynamically stable. Saturating okay on room air. Her BMP with sodium 130, chloride 69, bicarb 49, BUN/creatinine 52/3.05. Calcium 13.8. Her CBC is unremarkable. Patient was given 1 L of normal saline, 40 mill equivalents of potassium, 10 mill equivalents of IV potassium along with pain medications. Patient has had at least 9 admissions since November 2023 for renal dysfunction, electrolyte imbalance in the setting of her Gettleman's. She was last hospitalized from 05/15 - 05/19 for BARBARA on CKD 3, hypokalemia, hyponatremia, hypophosphatemia and near syncope. She was seen by nephrology. She was given IV fluid and electrolyte replacement. Nephrology had recommended she have random urine electrolytes done in the ER when she is not optimized. There is at least some clinical concern for induced vomiting with possible disordered eating. The patient adamantly denies this. X-ray of her left knee was negative for fracture but she continues to describe a lot of pain. Will check a CT of her knee to rule out fracture but indicated to her that the treatment here would likely be conservative unless of fractures found with outpatient follow-up. # BARBARA on CKD 3, Gitelman Syndrome. Hyponatremia. Hypokalemia. Hypercalcemia. Hypermagnesemia. Metabolic alkalosis: P- -Patient tells me she drinks 3 bottles of liquid IV along with 3 bottles of Gatorade daily. She also tries to drink plenty of water but does not quantify this. She tries to eat as much as she can andhas been trying to eat more salads as of late. -Consulted nephrology. -Labs better on 05/31. Continue IVF one day more. Continue RESISTANCE BRAZER scheduled potassium 40 meq but reduce from 4 to 2 times daily. High K+ replacement also ordered. -Monitor BMP. Monitor on telemetry. Repeat ECG shows QTc of 491 ms. #Chronic pain: Patient notes she did have exacerbation of her chronic pain with her fall prior to admission. Her x-rays were negative for any fracture. She does not have any significant swelling or bruising at the areas. She has been seen by pain team in the past and requested to see them here. -Check CT of her left knee to rule out occult fracture -Consulted pain team -Multimodal regimen ordered -Try to avoid IV pain medicines as able based on exam findings. -Fall precautions #Prolonged Qtc: QTc 498 on presentation. Replacing electrolytes as above. Monitoring on telemetry. QTc 491 on 05/30. #Chronic anemia: Patient's hemoglobin above baseline due to being hemoconcentrated. Did drop in a delusional manner after admission. --Recheck CBC 1 more time #Underweight: BMI 16. Will consult nutrition to evlauate. # Question disordered eating: Dental erosions with recurrent presentations with severe hypokalemia that seems to correct with electrolytes here. Nephrology has indicated they feel this pattern certainly is likely in part related to bulimia. --Patient adamantly denies any induced vomiting --Given denial of behaviors are not sure that psychiatric evaluation while inpatient will be fruitful DVT Prophylaxis: Pneumatic Compression Devices Code Status: Full Code Medically Ready for Discharge: Anticipated Tomorrow Emeterio Solorzano MD Interval History Continues to describe left knee pain, exam overall reassuring but checking CT without contrast to evaluate for occult fracture She continues to request IV pain medications, encouraging use of oral medications Creatinine and electrolytes improving significantly Nausea better She denies any vomiting at home. When I asked her if she had been vomiting she immediately and unsolicited told me she was not bulimic and asked that we not bring this up anymore. She is alternating a warm and cold pack on her knee -Data reviewed today: I reviewed all new labs and imaging results over the last 24 hours. I personally reviewed Physical Exam Temp: 97.6 ??F (36.4 ??C) Temp src: Oral BP: (!) 137/101 Pulse: 79 Resp: 18 SpO2: 100 % O2 Device: None (Room air) Vitals: 05/29/24 1858 05/30/24 0626 05/31/24 0823 Weight: 47.6 kg (105 lb) 47.1 kg (103 lb 14.4 oz) 50.2 kg (110 lb 10.7 oz) Vital Signs with Ranges Temp: [97.6 ??F (36.4 ??C)-97.9 ??F (36.6 ??C)] 97.6 ??F (36.4 ??C) Pulse: [79-88] 79 Resp: [16-20] 18 BP: (122-137)/(89-101) 137/101 SpO2: [98 %-100 %] 100 % I/O last 3 completed shifts: In: 4354 [P.O.:4354] Out: 1850 [Urine:1850] Constitutional: Thin, no acute distress. Answers appropriately. HEENT: Normocephalic, mucous membranes are dry, no elevation of JVD noted Respiratory: Nl WOB, Clear bilaterally, No wheezes, no crackles Cardiovascular: Regular, no murmur GI: BS+, NT, ND, no rebound or guarding Lymph/Hematologic: No bruising. No cervical LAD Skin: No rash Musculoskeletal: Thin extremities, no swelling or point tenderness of the left ankle or left knee. Neurologic: A&Ox3, Answers appropriately. CNII-XII intact. Moves all extremities. No tremor Medications Current Facility-Administered Medications Medication Dose Route Frequency Provider Last Rate Last Admin dextrose 5% and 0.9% NaCl + KCL 20 mEq/L infusion Intravenous Continuous Tolins, Sean Costello MD125 mL/hr at 05/31/24 0332 New Bag at 05/31/24 0332 Current Facility-Administered Medications Medication Dose Route Frequency Provider Last Rate Last Admin acetaminophen (TYLENOL) tablet 975 mg 975 mg Oral Q8H Karen Palacio APRN PRE FABRICATOR 975 mg at 05/31/24 1220 cetirizine (zyrTEC) tablet 10 mg 10 mg Oral At Bedtime Karen Palacio APRN PRE FABRICATOR 10 mg at 05/30/24 2215 gabapentin (NEURONTIN) capsule 100 mg 100 mg Oral BID Karen Palacio APRN PRE FABRICATOR 100 mg at 05/31/24 1220 gabapentin (NEURONTIN) capsule 300 mg 300 mg Oral BID Karen Palacio APRN PRE FABRICATOR 300 mg at 05/31/24 1219 gabapentin (NEURONTIN) capsule 400 mg 400 mg Oral At Bedtime Karen Palacio APRNCNP 400 mg at 05/30/24 2214 magnesium oxide (MAG-OX) tablet 400 mg 400 mg Oral BID Sean Freeman MD potassium chloride deanne ER (KLOR-CON M20) CR tablet 40 mEq 40 mEq Oral BID Sean Freeman MD sodium chloride (PF) 0.9% PF flush 3 mL 3 mL Intracatheter Q8H Azar Umanzor MD 3 mL at 05/31/24 1027 sodium phosphate 15 mmol in NS 250mL intermittent infusion 15 mmol Intravenous Once Emeterio Solorzano MD 15 mmol at 05/31/24 1025 Data Recent Labs Lab 05/31/24 0835 05/30/24 1008 05/30/24 0802 05/30/24 0425 05/29/24 2200 05/29/24 1650 05/29/24 1441 WBC -- -- 7.5 -- -- -- 9.0 HGB -- -- 8.0* -- -- -- 10.7* MCV -- -- 83 -- -- -- 81 PLT -- -- 350 -- -- -- 575* NA 141 -- 139 -- 133* -- 130* POTASSIUM 4.2 3.8 3.7 < > 2.7* < > 3.5 CHLORIDE 96* -- 90* -- 81* -- 69* CO2 35* -- 41* -- 39* -- 49* BUN 31.3* -- 45.3* -- 47.6* -- 52.2* CR 1.99* -- 2.74* -- 3.02* -- 3.05* ANIONGAP 10 -- 8 -- 13 -- 12 ELKE 10.2 -- 10.2 -- 10.6* -- 13.8* GLC 126* -- 90 -- 149* -- 124* ALBUMIN 4.1 -- -- -- -- -- 5.1 PROTTOTAL 6.8 -- -- -- -- -- 8.8* BILITOTAL <0.2 -- -- -- -- -- 0.3 ALKPHOS 75 -- -- -- -- -- 88 ALT 12 -- -- -- -- -- 12 AST 22 -- -- -- -- -- 37 < > = values in this interval not displayed. No results found for this or any previous visit (from the past 24 hours). RATING MACHINE OPERATOR * Sean Freeman MD - 05/31/2024 12:18 PM CST Assessment and Plan: Electrolyte abnormalities: Her potassium is now normal. Her bicarb is elevated at 35. Her phosphorus is low. Urine output yesterday 800 mL, 1050 mL so far today. Weight is up 3.1 kg with hydration. Blood pressure normal to high. Continue magnesium oxide. Reduce dose. Continue potassium chloride. Reduce dose Replace phosphorus IV. BARBARA: Creatinine improving Interval History: Likely eating disorder with induced vomiting. Narcotic dependence Anemia: There is a history of allergy to iron. I am not sure what the documentation of this is. Shecertainly would benefit from intravenous iron while we have an IV in place. Review of Systems: Complains of pain and swelling in the left knee and bruising in the left foot and ankle. Taking p.o. well. She denies nausea or vomiting. Medications: Current Facility-Administered Medications Medication Dose Route Frequency Provider Last Rate Last Admin acetaminophen (TYLENOL) tablet 975 mg 975 mg Oral Q8H Karen Palacio APRN PRE FABRICATOR 975 mg at 05/31/24 1220 cetirizine (zyrTEC) tablet 10 mg 10 mg Oral At Bedtime Karen Palacio APRN PRE FABRICATOR 10 mg at 05/30/24 2215 gabapentin (NEURONTIN) capsule 100 mg 100 mg Oral BID Karen Palacio APRN PRE FABRICATOR 100 mg at 05/31/24 1220 gabapentin (NEURONTIN) capsule 300 mg 300 mg Oral BID Karen Palacio APRN PRE FABRICATOR 300 mg at 05/31/24 1219 gabapentin (NEURONTIN) capsule 400 mg 400 mg Oral At Bedtime Karen Palacio APRNCNP 400 mg at 05/30/24 2214 magnesium oxide (MAG-OX) tablet 400 mg 400 mg Oral TID w/meals Azar Umanzor MD 400 mg at 05/31/24 1220 potassium chloride deanne ER (KLOR-CON M20) CR tablet 40 mEq 40 mEq Oral 4x Daily Azar Umanzor MD 40 mEq at 05/31/24 1220 sodium chloride (PF) 0.9% PF flush 3 mL 3 mL Intracatheter Q8H Azar Umanzor MD 3 mL at 05/31/24 1027 sodium phosphate 15 mmol in NS 250mL intermittent infusion 15 mmol Intravenous Once Emeterio Solorzano MD 15 mmol at 05/31/24 1025 Current Facility-Administered Medications Medication Dose Route Frequency Provider Last Rate Last Admin dextrose 5% and 0.9% NaCl + KCL 20 mEq/L infusion Intravenous Continuous Sean Freeman MD 125 mL/hr at 05/31/24 0332 New Bag at 05/31/24 0332 Current active medications and RESISTANCE BRAZER medications reviewed, see medication list for details. Physical Exam: Vitals were reviewed Patient Vitals for the past 24 hrs: BP Temp Temp src Pulse Resp SpO2 Weight 05/31/24 0823 -- -- -- -- -- -- 50.2 kg (110 lb 10.7 oz) 05/31/24 0804 (!) 137/101 97.6 ??F (36.4 ??C) Oral -- 18 100 % -- 05/31/24 0025 122/89 97.8 ??F (36.6 ??C) Oral 79 20 100 % -- 05/30/24 1510 126/89 97.9 ??F (36.6 ??C) Oral 85 16 98 % -- 05/30/24 1448 (!) 123/90 -- -- 88 -- -- -- Temp: [97.6 ??F (36.4 ??C)-97.9 ??F (36.6 ??C)] 97.6 ??F (36.4 ??C) Pulse: [79-88] 79 Resp: [16-20] 18 BP: (122-137)/(89-101) 137/101 SpO2: [98 %-100 %] 100 % Temperatures: Current - Temp: 97.6 ??F (36.4 ??C); Max - Temp Av.8 ??F (36.6 ??C) Min: 97.6 ??F (36.4 ??C) Max: 97.9 ??F (36.6 ??C) Respiration range: Resp Av Min: 16 Max: 20 Pulse range: Pulse Av Min: 79 Max: 88 Blood pressure range: Systolic (24hrs), Av , Min:122 , Max:137 ; Diastolic (24hrs), Av, Min:89, Max:101 Pulse oximetry range: SpO2 Av.3 % Min: 98 % Max: 100 % I/O last 3 completed shifts: In: 4354 [P.O.:4354] Out: 1850 [Urine:1850] Intake/Output Summary (Last 24 hours) at 05/31/2024 1218 Last data filed at 05/31/2024 0655 Gross per 24 hour Intake 3994 ml Output 1850 ml Net 2144 ml Alert and responsive Cachectic Left knee shows some crepitus and perhaps effusion, she does not extend it fully. Left foot shows some ecchymosis Wt Readings from Last 4 Encounters: 05/31/24 50.2 kg (110 lb 10.7 oz) 05/15/24 47.2 kg (104 lb 1.6 oz) 04/23/24 48.1 kg (106 lb) 04/02/24 48.7 kg (107 lb 4.8 oz) Data: Lab Results Component Value Date NA 141 05/31/2024 NA 139 05/30/2024 NA 133 05/29/2024 NA 141 11/22/2020 NA 134 11/21/2020 NA 135 09/29/2020 Lab Results Component Value Date CHLORIDE 96 05/31/2024 CHLORIDE 90 05/30/2024 CHLORIDE 81 05/29/2024 CHLORIDE 69 01/31/2023 CHLORIDE 110 07/22/2021 CHLORIDE 104 07/21/2021 CHLORIDE 97 07/21/2021 CHLORIDE 110 11/22/2020 CHLORIDE 89 11/21/2020 CHLORIDE 89 09/29/2020 Lab Results Component Value Date BUN 31.3 05/31/2024 BUN 45.3 05/30/2024 BUN 47.6 05/29/2024 BUN 47 01/31/2023 BUN 13 07/22/2021 BUN 22 07/21/2021 BUN 24 07/21/2021 BUN 20 11/22/2020 BUN 30 11/21/2020 BUN 23 09/29/2020 Lab Results Component Value Date POTASSIUM 4.2 05/31/2024 POTASSIUM 3.8 05/30/2024 POTASSIUM 3.7 05/30/2024 POTASSIUM <2.0 01/31/2023 POTASSIUM 3.5 07/22/2021 POTASSIUM 4.3 07/21/2021 POTASSIUM 3.4 07/21/2021 POTASSIUM 4.2 11/22/2020 POTASSIUM 3.5 11/22/2020 POTASSIUM 2.4 11/21/2020 Lab Results Component Value Date CO2 35 05/31/2024 CO2 41 05/30/2024 CO2 39 05/29/2024 CO2 27 07/22/2021 CO2 31 07/21/2021 CO2 31 07/21/2021 CO2 29 11/22/2020 CO2 40 11/21/2020 CO2 36 09/29/2020 Lab Results Component Value Date CR 1.99 05/31/2024 CR 2.74 05/30/2024 CR 3.02 05/29/2024 CR 0.80 11/22/2020 CR 1.18 11/21/2020 CR 1.16 09/29/2020 Recent Labs Lab Test 05/30/24 0802 05/29/24 1441 05/19/24 0741 WBC 7.5 9.0 8.6 HGB 8.0* 10.7* 9.0* HCT 24.0* 31.9* 27.8* MCV 83 81 85 PLT 350 575* 337 Recent Labs Lab Test 05/31/24 0835 05/29/24 1441 03/06/24 1419 AST 22 37 22 ALT 12 12 14 ALKPHOS 75 88 140 BILITOTAL <0.2 0.3 0.3 KATHIA 20 -- -- Recent Labs Lab Test 05/31/24 0835 05/30/24 0802 05/29/24 1441 MAG 1.9 2.2 2.4* Recent Labs Lab Test 05/31/24 0835 05/30/24 0802 05/29/24 1650 PHOS 1.8* 2.9 3.3 Recent Labs Lab Test 05/31/24 0835 05/30/24 0802 05/29/24 2200 ELKE 10.2 10.2 10.6* Lab Results Component Value Date ELKE 10.2 05/31/2024 Lab Results Component Value Date WBC 7.5 05/30/2024 HGB 8.0 (L) 05/30/2024 HCT 24.0 (L) 05/30/2024 MCV 83 05/30/2024 PLT 350 05/30/2024 Lab Results Component Value Date NA 141 05/31/2024 POTASSIUM 4.2 05/31/2024 CHLORIDE 96 (L) 05/31/2024 CO2 35 (H) 05/31/2024 GLC 126 (H) 05/31/2024 Lab Results Component Value Date BUN 31.3 (H) 05/31/2024 CR 1.99 (H) 05/31/2024 Lab Results Component Value Date MAG 1.9 05/31/2024 Lab Results Component Value Date PHOS 1.8 (L) 05/31/2024 Creatinine Date Value Ref Range Status 05/31/2024 1.99 (H) 0.51 - 0.95 mg/dL Final 05/30/2024 2.74 (H) 0.51 - 0.95 mg/dL Final 05/29/2024 3.02 (H) 0.51 - 0.95 mg/dL Final 05/29/2024 3.05 (H) 0.51 - 0.95 mg/dL Final 05/19/2024 1.22 (H) 0.51 - 0.95 mg/dL Final 05/18/2024 1.21 (H) 0.51 - 0.95 mg/dL Final 11/22/2020 0.80 0.52 - 1.04 mg/dL Final 11/21/2020 1.18 (H) 0.52 - 1.04 mg/dL Final 09/29/2020 1.16 (H) 0.52 - 1.04 mg/dL Final 03/25/2020 0.85 0.52 - 1.04 mg/dL Final 03/25/2020 0.99 0.52 - 1.04 mg/dL Final 11/04/2019 0.62 0.52 - 1.04 mg/dL Final Attestation: I have reviewed today's vital signs, notes, medications, labs and imaging. Sean Freeman MD RATING MACHINE OPERATOR * Azar Umanzor MD - 05/30/2024 11:37 AM CST [facility] Hospitalist Progress Note Assessment & Plan Lorraine Klein is a 34 year old female with a past medical history of Gitelman syndrome with recurrent hypokalemia, hypomagnesemia and hypercalcemia, iron deficiency anemia, fibromyalgia, chronicpain syndrome on gabapentin and MDD who presents with recurrent syncope and abnormal labs. Patient has had at least 9 admissions since November 2023 for renal dysfunction, electrolyte imbalance in the setting of her Gettleman's. She was last hospitalized from 05/15 - 05/19 for BARBARA on CKD 3, hypokalemia, hyponatremia, hypophosphatemia and near syncope. She was seen by nephrology. She was given IV fluid and electrolyte replacement. Nephrology had recommended she have random urine electrolytes done in the ER when she is not optimized. # BARBARA on CKD 3, Gitelman Syndrome. Hyponatremia. Hypokalemia. Hypercalcemia. Hypermagnesemia. Metabolic alkalosis: Patient comes in again with abnormal labs. She was seen by her PCP for hospital follow-up 2 days prior to presentation. She was found to have a potassium level of 2 and a creatinine level of 4 prompting her PCP to refer her to the ED. She has been having ongoing nausea, increased urinary frequency. She had a syncopal episode about 2 days ago. She tells me that she fell down about 5stairs and hurt her left ankle and left knee. She is not sure how long she was out for. She denies any current chest pain. She does note pain mainly of the left knee and left ankle after fall. She has been using gabapentin, Robaxin and tramadol for pain management. -ED, patient afebrile and hemodynamically stable. Saturating okay on room air. Her BMP with sodium 130, chloride 69, bicarb 49, BUN/creatinine 52/3.05. Calcium 13.8. Her CBC is unremarkable. Patient was given 1 L of normal saline, 40 mill equivalents of potassium, 10 mill equivalents of IV potassium along with pain medications. -Patient tells me she drinks 3 bottles of IV liquid along with 3 bottles of Gatorade daily. She also tries to drink plenty of water but does not quantify this. She tries to eat as much as she can andhas been trying to eat more salads as of late. -Consult nephrology. -Random urine electrolytes obtained in the ER. -Labs better on 05/30. Continue IVF for metabolic alkalosis. Continue RESISTANCE BRAZER scheduled potassium 40 meq4 times daily. High K+ replacement also ordered. -Monitor BMP. Monitor on telemetry. Repeat ECG to recheck Qtc now that potassium better. #Chronic pain: Patient notes she did have exacerbation of her chronic pain with her fall prior to admission. Her x-rays were negative for any fracture. She does not have any significant swelling or bruising at the areas. She has been seen by pain team in the past and is requesting to see them againtomorrow. -Consult pain team -Tylenol, Robaxin, oxycodone 5-10 mg every 4 hours as needed for breakthrough pain. Try to avoid IVpain medicines as able. Pain team did order one time IV dilaudid dose. I reiterated that patient does not have any fracture or need for ongoing IV pain meds. I told her I will not be ordering IV dilaudid given no clear indication for acute pain. -Fall precautions #Prolonged Qtc: QTc 498 on presentation. Replacing electrolytes as above. Monitoring on telemetry. Avoid QT prolonging medications as able. Recheck QTc #Chronic anemia: Patient's hemoglobin above baseline due to being hemoconcentrated. Monitor CBC daily. No evidence of bleeding. #Underweight: BMI 16. Will consult nutrition to evlauate. DVT Prophylaxis: Pneumatic Compression Devices Code Status: Full Code Medically Ready for Discharge: Anticipated in 2-4 Days Azar Umanzor MD Interval History No events. Ate some bfast and tolerating liquids. No nausea/vomiting. Still urinating a lot. She isasking about possibly getting port placement. She had one in past but it got infected and was removed in Jul 2023. -Data reviewed today: I reviewed all new labs and imaging results over the last 24 hours. I personally reviewed Physical Exam Temp: 97.6 ??F (36.4 ??C) Temp src: Oral BP: 114/85 Pulse: 79 Resp: 16 SpO2: 95 % O2 Device: None (Room air) Vitals: 05/29/24 1348 05/29/24 1858 05/30/24 0626 Weight: 50.4 kg (111 lb 1.8 oz) 47.6 kg (105 lb) 47.1 kg (103 lb 14.4 oz) Vital Signs with Ranges Temp: [97.3 ??F (36.3 ??C)-98.6 ??F (37 ??C)] 97.6 ??F (36.4 ??C) Pulse: [76-108] 79 Resp: [16-18] 16 BP: (113-130)/(78-103) 114/85 SpO2: [93 %-100 %] 95 % I/O last 3 completed shifts: In: - Out: 600 [Urine:600] Constitutional: Thin, no acute distress. Answers appropriately. HEENT: Normocephalic, mucous membranes are dry, no elevation of JVD noted Respiratory: Nl WOB, Clear bilaterally, No wheezes, no crackles Cardiovascular: Regular, no murmur GI: BS+, NT, ND, no rebound or guarding Lymph/Hematologic: No bruising. No cervical LAD Skin: No rash Musculoskeletal: Thin extremities, no swelling or point tenderness of the left ankle or left knee. Neurologic: A&Ox3, Answers appropriately. CNII-XII intact. Moves all extremities. No tremor Medications Current Facility-Administered Medications Medication Dose Route Frequency Provider Last Rate Last Admin sodium chloride 0.9 % infusion Intravenous Continuous Azar Umanzor MD 100 mL/hr at 05/30/24 0526 New Bag at 05/30/24 0526 Current Facility-Administered Medications Medication Dose Route Frequency Provider Last Rate Last Admin acetaminophen (TYLENOL) tablet 975 mg 975 mg Oral Q8H Karen Palacio APRN CNP cetirizine-pseudoePHEDrine ER (zyrTEC-D) 5-120 MG per 12 hr tablet 1 tablet 1 tablet Oral At Bedtime Karen Palacio APRN CNP gabapentin (NEURONTIN) capsule 100 mg 100 mg Oral BID Karen Palacio APRN CNP gabapentin (NEURONTIN) capsule 300 mg 300 mg Oral BID Karen Palacio APRN CNP 300 mg at 05/30/24 0826 gabapentin (NEURONTIN) capsule 400 mg 400 mg Oral At Bedtime Azar Umanzor MD 400 mg at 05/29/24 2216 HYDROmorphone (PF) (DILAUDID) injection 0.3 mg 0.3 mg Intravenous Once Karen Coe APRN CNP magnesium oxide (MAG-OX) tablet 400 mg 400 mg Oral TID w/meals Azar Umanzor MD 400 mg at 05/30/24 0826 potassium chloride deanne ER (KLOR-CON M20) CR tablet 40 mEq 40 mEq Oral 4x Daily Azar Umanzor MD 40 mEq at 05/30/24 0825 sodium chloride (PF) 0.9% PF flush 3 mL 3 mL Intracatheter Q8H Azar Umanzor MD Data Recent Labs Lab 05/30/24 1008 05/30/24 0802 05/30/24 0425 05/29/24 2200 05/29/24 1650 05/29/24 1441 WBC -- 7.5 -- -- -- 9.0 HGB -- 8.0* -- -- -- 10.7* MCV -- 83 -- -- -- 81 PLT -- 350 -- -- -- 575* NA -- 139 -- 133* -- 130* POTASSIUM 3.8 3.7 3.2* 2.7* < > 3.5 CHLORIDE -- 90* -- 81* -- 69* CO2 -- 41* -- 39* -- 49* BUN -- 45.3* -- 47.6* -- 52.2* CR -- 2.74* -- 3.02* -- 3.05* ANIONGAP -- 8 -- 13 -- 12 ELKE -- 10.2 -- 10.6* -- 13.8* GLC -- 90 -- 149* -- 124* ALBUMIN -- -- -- -- -- 5.1 PROTTOTAL -- -- -- -- -- 8.8* BILITOTAL -- -- -- -- -- 0.3 ALKPHOS -- -- -- -- -- 88 ALT -- -- -- -- -- 12 AST -- -- -- -- -- 37 < > = values in this interval not displayed. Recent Results (from the past 24 hours) XR Knee Left 3 Views Narrative XR KNEE LEFT 3 VIEWS 05/29/2024 4:02 PM HISTORY: fall, knee pain COMPARISON: None. Impression IMPRESSION: No fracture or malalignment. No effusion. Joint spaces are maintained. HUSEYIN MCKEON MD SYSTEM ID: [id number] XR Ankle Left G/E 3 Views Narrative XR ANKLE LEFT G/E 3 VIEWS 05/29/2024 4:02 PM HISTORY: fall, ankle pain COMPARISON: None. Impression IMPRESSION: No fracture. Intact ankle mortise and distal syndesmosis. HUSEYIN MCKEON MD SYSTEM ID: [id number] RATING MACHINE OPERATOR * Nereyda Chauhan LPN - 05/29/2024 8:44 PM CST Pt refusing assistance with going to the restroom. Has IV fluids and sore leg. Will allow bed alarmon at this time. RATING MACHINE OPERATOR documented in this encounter H&P Notes * Azar Umanzor MD - 05/29/2024 5:35 PM CST [facility] History and Physical Hospitalist Date of Admission: 05/29/2024 Assessment & Plan Lorraine Klein is a 34 year old female with a past medical history of Gitelman syndrome with recurrent hypokalemia, hypomagnesemia and hypercalcemia, iron deficiency anemia, fibromyalgia, chronicpain syndrome on gabapentin and MDD who presents with recurrent syncope and abnormal labs. Patient has had at least 9 admissions since November 2023 for renal dysfunction, electrolyte imbalance in the setting of her Gettleman's. She was last hospitalized from 05/15 - 05/19 for BARBARA on CKD 3, hypokalemia, hyponatremia, hypophosphatemia and near syncope. She was seen by nephrology. She was given IV fluid and electrolyte replacement. Nephrology had recommended she have random urine electrolytes done in the ER when she is not optimized. # BARBARA on CKD 3, Gitelman Syndrome. Hyponatremia. Hypokalemia. Hypercalcemia. Hypermagnesemia. Metabolic alkalosis: Patient comes in again with abnormal labs. She was seen by her PCP for hospital follow-up 2 days prior to presentation. She was found to have a potassium level of 2 and a creatinine level of 4 prompting her PCP to refer her to the ED. She has been having ongoing nausea, increased urinary frequency. She had a syncopal episode about 2 days ago. She tells me that she fell down about 5stairs and hurt her left ankle and left knee. She is not sure how long she was out for. She denies any current chest pain. She does note pain mainly of the left knee and left ankle after fall. She has been using gabapentin, Robaxin and tramadol for pain management. -ED, patient afebrile and hemodynamically stable. Saturating okay on room air. Her BMP with sodium 130, chloride 69, bicarb 49, BUN/creatinine 52/3.05. Calcium 13.8. Her CBC is unremarkable. Patient was given 1 L of normal saline, 40 mill equivalents of potassium, 10 mill equivalents of IV potassium along with pain medications. -Patient tells me she drinks 3 bottles of IV liquid along with 3 bottles of Gatorade daily. She also tries to drink plenty of water but does not quantify this. She tries to eat as much as she can andhas been trying to eat more salads as of late. -Consult nephrology. -Random urine electrolytes obtained in the ER. We will follow. -We will place her on normal saline at 100 cc/h. Continue her RESISTANCE BRAZER schedule potassium 40 mill equivalents 4 times daily. Additional high potassium replacement protocol ordered. May need to uptitrate her potassium therapy. -Monitor BMP every 8 hours for now. -Monitor on telemetry #Chronic pain: Patient notes she did have exacerbation of her chronic pain with her fall prior to admission. Her x-rays were negative for any fracture. She does not have any significant swelling or bruising at the areas. She has been seen by pain team in the past and is requesting to see them againtomorrow. -Consult pain team -Tylenol, Robaxin, oxycodone 5-10 mg every 4 hours as needed for breakthrough pain. Try to avoid IVpain medicines as able. -Fall precautions #Prolonged Qtc: QTc 498 on presentation. Replacing electrolytes as above. Monitoring on telemetry. Avoid QT prolonging medications as able. #Chronic anemia: Patient's hemoglobin above baseline due to being hemoconcentrated. Monitor CBC daily. No evidence of bleeding. DVT Prophylaxis: Pneumatic Compression Devices Code Status: Full Code Medically Ready for Discharge: Anticipated in 2-4 Days Azar Umanzor MD Primary Care Physician Gregg Corrales Chief Complaint Abnormal labs History is obtained from the patient, patient's chart and discussed with ER physician. History of Present Illness Lorraine Klein is a 34 year old female with a past medical history of Gettleman syndrome with recurrent hypokalemia, hypomagnesemia and hypercalcemia, iron deficiency anemia, fibromyalgia, chronic pain syndrome on gabapentin and MDD who presents with recurrent syncope and abnormal labs. Patient has had at least 9 admissions since November 2023 for renal dysfunction, electrolyte imbalance in the setting of her Gettleman's. She was last hospitalized from 05/15 - 05/19 for BARBARA on CKD 3, hypokalemia, hyponatremia, hypophosphatemia and near syncope. She was seen by nephrology. She was given IV fluid and electrolyte replacement. Nephrology had recommended she have random urine electrolytes done in the ER when she is not optimized. Patient comes in again with abnormal labs. She was seen by her PCP for hospital follow-up 2 days prior to presentation. She was found to have a potassium level of 2 and a creatinine level of 4 prompting her PCP to refer her to the ED. She has been having ongoing nausea, increased urinary frequency.She had a syncopal episode about 2 days ago. She tells me that she fell down about 5 stairs and hurt her left ankle and left knee. She is not sure how long she was out for. She denies any current chest pain. She does note pain mainly of the left knee and left ankle after fall. She has been using gabapentin, Robaxin and tramadol for pain management. In the ED, patient afebrile and hemodynamically stable. Saturating okay on room air. Her BMP with sodium 130, chloride 69, bicarb 49, BUN/creatinine 52/3.05. Calcium 13.8. Her CBC is unremarkable. Patient was given 1 L of normal saline, 40 mill equivalents of potassium, 10 mill equivalents of IV potassium along with pain medications. Past Medical History I have reviewed this [...] 100 MG capsule Yes No Sig: Take 1 capsule (100 mg) by mouth at bedtime with 300 mg capsule gabapentin (NEURONTIN) 300 MG capsule Yes No Sig: Take 300 mg by mouth 3 times daily. hydrOXYzine HCl [...] Take 50 mg by mouth 2 times daily. traMADol (ULTRAM) 50 MG tablet Yes No Sig: Take 50 mg by mouth 2 times daily as needed for severe pain. Facility-Administered Medications: None Allergies Allergies Allergen Reactions [...] long and has history of long QT. Social History I have reviewed this patient's social history and updated it with pertinent information if needed. Lorraine Klein reports that she has never smoked. She [...] than noted in the HPI or here. Physical Exam Temp: 97.3 ??F (36.3 ??C) Temp src: Temporal BP: 119/85 Pulse: 79 Resp: 18 SpO2: 96 % O2 Device: None (Room air) Vital Signs with Ranges Temp: [97.3 ??F (36.3 ??C)] 97.3 ??F (36.3 ??C) Pulse: [79-108] 79 Resp: [18] 18 BP: (119-130)/(85-103) 119/85 SpO2: [96 %-99 %] 96 % 111 lbs 1.79 oz Constitutional: Thin, no acute distress. Answers appropriately. HEENT: Normocephalic, mucous membranes are dry, no elevation of JVD noted Respiratory: Nl WOB, Clear bilaterally, No wheezes, no crackles Cardiovascular: Regular, no murmur GI: BS+, NT, ND, no rebound or guarding Lymph/Hematologic: No bruising. No cervical LAD Skin: No rash Musculoskeletal: Thin extremities, no swelling or point tenderness of the left ankle or left knee. Neurologic: A&Ox3, Answers appropriately. CNII-XII intact. Moves all extremities. No tremor Psychiatric: Calm Data Data reviewed today: I personally reviewed Recent Labs Lab 05/29/24 1441 WBC 9.0 HGB 10.7* MCV 81 PLT 575* NA 130* POTASSIUM 3.5 CHLORIDE 69* CO2 49* BUN 52.2* CR 3.05* ANIONGAP 12 ELKE 13.8* GLC 124* ALBUMIN 5.1 PROTTOTAL 8.8* BILITOTAL 0.3 ALKPHOS 88 ALT 12 AST 37 Recent Results (from the past 24 hours) XR Knee Left 3 Views Narrative XR KNEE LEFT 3 VIEWS 05/29/2024 4:02 PM HISTORY: fall, knee pain COMPARISON: None. Impression IMPRESSION: No fracture or malalignment. No effusion. Joint spaces are maintained. HUSEYIN MCKEON MD SYSTEM ID: [id number] XR Ankle Left G/E 3 Views Narrative XR ANKLE LEFT G/E 3 VIEWS 05/29/2024 4:02 PM HISTORY: fall, ankle pain COMPARISON: None. Impression IMPRESSION: No fracture. Intact ankle mortise and distal syndesmosis. HUSEYIN MCKEON MD SYSTEM ID: [id number] Clinically Significant Risk Factors Present on Admission # Hyponatremia: Lowest Na = 130 mmol/L in last 2 days, will monitor as appropriate # Hypochloremia: Lowest Cl = 69 mmol/L in last 2 days, will monitor as appropriate # Hypercalcemia: Highest Ca = 13.8 mg/dL in last 2 days, will monitor [...] this encounter: 50.4 kg (111 lb 1.8 oz). RATING MACHINE OPERATOR documented in this encounter Consult Notes * Hilario Nelly, STEPHANIE - 05/31/2024 3:32 PM CSTAssociated Order(s): CARE MANAGEMENT / SOCIAL WORK IP CONSULT Care Management Initial Consult Cleared, not following General Information Assessment completed with: Patient, Type of CM/SW Visit: Initial Assessment Primary Care Provider verified and updated as needed: Yes Readmission within the last 30 days: previous discharge plan unsuccessful Return Category: Medically unsuccessful treatment plan Reason for Consult: care coordination/care conference, discharge planning, mental health concerns Advance Care Planning: Communication Assessment Patient's communication style: spoken language (Brazilian or Bilingual) Hearing Difficulty or Deaf: no Wear Glasses or Blind: yes Cognitive Cognitive/Neuro/Behavioral: WDL Living Environment: People in home: alone Current living Arrangements: town home Able to return to prior arrangements: yes Family/Social Support: Care provided by: self Provides care for: no one Marital Status: Single Support system: Parent(s) Description of Support System: Supportive Current Resources: Patient receiving home care services: No Community Resources: None Equipment currently used at home: none Supplies currently used at home: None Employment/Financial: Employment Status: disabled, employed part-time Financial Concerns: Does the patient's insurance plan have a 3 day qualifying hospital stay waiver? No Lifestyle & Psychosocial Needs: Social Drivers of Health Food Insecurity: Low Risk (05/30/2024) Food Insecurity Within the past 12 months, did you worry that your food would run out before you got money to buy more?: No Within the past 12 months, did the food you bought just not last and you didn???t have money to getmore?: No Depression: At risk (10/22/2023) Received from [facility] PHQ-2 PHQ-2 TOTAL SCORE: 3 Housing Stability: Low Risk (05/30/2024) Housing Stability Do you have housing? : Yes Are you worried about losing your housing?: No Recent Concern: Housing Stability - High Risk (05/29/2024) Housing Stability Do you have housing? : No Are you worried about losing your housing?: No Tobacco Use: Low Risk (05/27/2024) [facility] Patient History Smoking Tobacco Use: Never Smokeless Tobacco Use: Never Passive Exposure: Not on file Financial Resource Strain: Low Risk (05/30/2024) Financial Resource Strain Within the past 12 months, have you or your family members you live with been unable to get utilities (heat, electricity) when it was really needed?: No Alcohol Use: Not At Risk (04/07/2021) Received from [facility]UD[facility] Frequency of Alcohol Consumption: Never Average Number of Drinks: Not on file Frequency of Binge Drinking: Not on file Transportation Needs: Low Risk (05/30/2024) Transportation Needs Within the past 12 months, has lack of transportation kept you from medical appointments, getting your medicines, non-medical meetings or appointments, work, or from getting things that you need?: No Physical Activity: Sufficiently Active (04/07/2021) Received from [facility] Exercise Vital Sign Days of Exercise per Week: 6 days Minutes of Exercise per Session: 90 min Interpersonal Safety: Low Risk (05/29/2024) Interpersonal Safety Do you feel physically and emotionally safe where you currently live?: Yes Within the past 12 months, have you been hit, slapped, kicked or otherwise physically hurt by someone?: No Within the past 12 months, have you been humiliated or emotionally abused in other ways by your partner or ex-partner?: No Stress: No Stress Concern Present (04/07/2021) Received from [facility] [place] [facility] Occup[facility] - Occupational Stress Questionnaire Feeling of Stress : Only a little Social Connections: Socially Integrated (02/29/2024) Received from [facility] Social Connections Do you often feel lonely or isolated from those around you?: 0 Health Literacy: Not on file Functional Status: Prior to admission patient needed assistance: Dependent ADLs:: Independent Dependent IADLs:: Independent Assesssment of Functional Status: At functional baseline Additional Information: SHANTANU consulted for high URR. SHANTANU met with Lorraine at bedside. She was teary and reported that feels the medical staff are not listening to her. Due to her multiple hospital readmissions, she is managing anxiety from her medical trauma. Lorraine last saw her therapist 4 years ago and feels sheis managing her anxiety on her own. SHANTANU asked if she has fibromyalgia - Lorraine denied stating she never had that. Lorraine reported that her pain has been unmanageable since she started falling,prior it was not bad. Lorraine reported that her PCP and Nephrology is with [facility]. At one time, she had a port in for IV fluids to give herself at home but it became infected and was taken out. Helen mauricio reported that she continues to ask for the port to be put back in by her medical team. Lorraine reported that since she was 15 years she had heart and kidney issues. She said her medical team believes it is from the medication and Gittleman's. SHANTANU asked if she felt that she had an eating disorder. Lorraine denied that she ever had one and has continued to be labeled that she does have one. Lorraine also denied having an opoid addiction and denies needing help as she has no issues. Lorraine denies taking any more opioids than prescribed or purchasing from others in the community. SHANTANU asked why she did not follow through with the [facility] - she said she had no insurance at the time and does not want to pay $700 out of pocket. She currently has an MA sony pending [facility] for the last 2 months. 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 Reviewed case with Dr and Nurse. Left knee does not show any signs of swelling or redness and she is able to ambulate on own. Ortho will not be consulted. Review of chart shows that Sandi's DX was established in 2016 by Florencia. In 2018, Florencia was determining whether she had POTS or another differential DX. Medical team will continue to monitor and treat for her Gittleman's only and not her pain as it is more mental health related. Consult closed, case is inappropriate to follow at this time. STEPHANIE Gray - [phone] RATING MACHINE OPERATOR * Mikayla Hearn RD - 05/30/2024 2:05 PM CSTAssociated Order(s): NUTRITION SERVICES ADULT IP CONSULT CLINICAL NUTRITION SERVICES - ASSESSMENT NOTE Nutrition Prescription RECOMMENDATIONS FOR MDs/PROVIDERS TO ORDER: none Malnutrition Status: Moderate malnutrition In Context of: Chronic illness or disease Recommendations already ordered by Registered Dietitian (RD): Requested nursing to do accurate recording in flowsheet of intakes. Allow double portions of entrees and side. CIB one time per day (mid afternoon) Future/Additional Recommendations: Follow oral intake, weights, labs, and acceptance of CIB. REASON FOR ASSESSMENT Lorraine Klein is a/an 34 year old female assessed by the dietitian for Provider Order - evaluate for malnutrition REASON FOR ADMISSION/PMH: Recurrent syncope and abnormal labs. Gitelman syndrome with multiple recurrent electrolyte abnormalities, iron deficiency anemia, fibromyalgia, chronic pain syndrome, and depression. NUTRITION HISTORY Pt reports that she really does eat. She expressed concern that her care team doesn't believe her. 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 Breakfast is usually He's sandwich meal, Lunch is a full dinner with her client, and then she cooks her dinner at home - some sort of meat, with noodles, or a sandwich with lots of toppings, cream cheese, butter. Pt eats snacks at least TID including Rajesh Bars with milk, popcorn, other. Pt states that the amount of food served here for standard portions is much less than what shedoes at home. Is ordering extra condiments, extra milk and requesting to order double portions. CURRENT NUTRITION ORDERS Diet: Regular Intake/Tolerance: reports excellent intake. P LABS Labs reviewed Latest Reference Range & Units 05/30/24 08:02 Sodium 135 - 145 mmol/L 139 Potassium 3.4 - 5.3 mmol/L 3.7 Chloride 98 - 107 mmol/L 90 (L) Carbon Dioxide (CO2) 22 - 29 mmol/L 41 (H) Urea Nitrogen 6.0 - 20.0 mg/dL 45.3 (H) Creatinine 0.51 - 0.95 mg/dL 2.74 (H) GFR Estimate >60 mL/min/1.73m2 23 (L) (L): Data is abnormally low (H): Data is abnormally high MEDICATIONS Medications reviewed: KCl, MgOxide, Gabapentin, dextrose 5% and 0.9% NaCl + KCL 20 mEq/L infusion 125 ml/hr ANTHROPOMETRICS Height: 170.2 cm (5' 7) Most Recent Weight: 47.1 kg (103 lb 14.4 oz) IBW: 61.6 kg BMI: Underweight BMI <18.5 Weight History: Wt Readings from Last 10 Encounters: 05/30/24 47.1 kg (103 lb 14.4 oz) 05/15/24 47.2 kg (104 lb 1.6 oz) 04/23/24 48.1 kg (106 lb) 04/02/24 48.7 kg (107 lb 4.8 oz) 03/20/24 47.9 kg (105 lb 11.2 oz) 03/12/24 47.8 kg (105 lb 6.4 oz) 02/01/23 57.2 kg (126 lb 1.6 oz) 11/04/22 62.6 kg (137 lb 14.4 oz) 09/11/22 59 kg (130 lb) 07/27/22 59 kg (130 lb) Dosing Weight: 60 kg ASSESSED NUTRITION NEEDS Estimated Energy Needs: 35 - 40 kcals/kg (3312-1005 kcal Justification: Increased needs, Repletion, and Underweight Estimated Protein Needs: 1 - 1.2 grams of pro/kg (60-72 gm pro/day - acceptable to go higher) Justification: Increased needs and Maintenance Estimated Fluid Needs: 1 mL/kcal Justification: Maintenance and Per provider pending fluid status PHYSICAL FINDINGS See malnutrition section below. No abnormal nutrition-related physical findings observed. MALNUTRITION: % Weight Loss: Weight loss does not meet criteria for malnutrition. Pt did lose significant amount of weight between January 2023 and February 2024 but weight now stable. 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 She quit that job in late December and now has employment that is much less demanding. % Intake: No decrease noted. Muscle Loss: Temporal: mild, Facial & jaw region: mild, Scapular bone: moderate, Thoracic region (clavicle, acromium bone, deltoid, trapezius, pectoral): moderate, and Upper arm (bicep, tricep): mild Subcutaneous Fat Loss: Facial region: mild and Lower arm: mild Fluid Accumulation/Edema: None noted Malnutrition Diagnosis: Moderate malnutrition In Context of: Chronic illness or disease NUTRITION DIAGNOSIS Underweight related to repeated acute exacerbations of chronic illness as evidenced by BMI of 16.3 with report of pt exceeding estimated needs when she is feeling good. INTERVENTIONS Implementation Nutrition Education: reviewed previous education for high elke high pro adjustments. (Pt already quite compliant) Collaboration with other nutrition professionals Collaboration with other providers Modify composition of meals/snacks Goals Patient to consume 75-100% of nutritionally adequate meal trays TID, or the equivalent with supplements/snacks. Monitoring/Evaluation Progress toward goals will be monitored and evaluated per protocol. RATING MACHINE OPERATOR * Sean Freeman MD - 05/30/2024 12:37 PM CSTAssociated Order(s): NEPHROLOGY IP CONSULT Nephrology Consultation Lorarine Klein Date of : 1990 Age: [age] year old Date of Admission: 05/29/2024 Reason for consult: I was asked by Dr. Umanzor to evaulate this patient for electrolyte abnormalities.. Assessment and Plan: Electrolyte abnormalities: She is repeatedly admitted with hypokalemia and metabolic alkalosis. Laboratory evaluation today showed marked metabolic alkalosis with respiratory compensation. But her bicarb is 41 and potassium on admission was 2.4. Her urine potassium is 45, urine sodium 44 and urine chloride less than 20. Urine chloride less than 20 means she likely has a chloride responsive alkalosis and this is consistent with repeated vomiting. Given her body habitus where she is cachectic, her teeth with erosions and deformity from vomiting, and a chloride responsive alkalosis it is evidentthat she has an eating disorder with bulimia. We will correct her electrolytes with IV fluids and magnesium and potassium replacement however, she if we are to avoid repeated hospitalizations needs psychiatric intervention . She may in fact be using diuretics in addition to induced vomiting. We will give her normal saline with potassium. We will continue her magnesium and potassium replacement orally. Narcotic dependence: She is currently taking a combination of Neurontin, hydroxyzine, Robaxin, oxycodone and tramadol. She also has received IV Dilaudid. I wonder if we can refer her for chemical dependency treatment. Anemia: We will give her intravenous iron while she is in the hospital with an IV in place. Chief Complaint: Electrolyte disorder. History is obtained from the patient and electronic health record History of Present Illness: This patient is a 34 year old female who presents with recurrent hospitalizations for electrolyte disorders. Labs on admission showed sodium 130 potassium 2.4 bicarbonate 49 creatinine 3.05 calcium 13.8 magnesium was okay at 2.4 phosphorus was 3.3. VBG showed a pH 7.56 pCO2 71 pO2 38 and bicarb greater than 45 consistent with severe metabolic alkalosis. She is anemic with a hemoglobin of 8.0. She has an element of chronic kidney disease and consistently has elevated creatinines which are quite variable depending on her fluid status. On admission her urine albumin/creatinine was 436 mg/gram. She apparently passed out and fell on the stairs at home. She lives in a [facility] in [place], [place]. She follows with a clamp remover affiliated with [facility]. She tells me at home she takes potassium supplements, magnesium supplements and spironolactone. She also has a history of dependence on narcotics including oxycodone, Dilaudid,. She takes tramadol and Robaxin. She takes Neurontin and hydroxyzine. In the hospital she has gotten magnesium oxide and potassium chloride replacement. She is gotten saline replacement. She has a history of anemia and her most recent Ferritin level was 19. Her folate and B12 levels were okay. Past Medical History: Past Medical History: Diagnosis [...] Cancer Maternal Grandmother Colon Cancer Paternal Uncle Allergies: Allergies Allergen Reactions Iron Sucrose Anxiety [...] (TYLENOL) tablet 975 mg 975 mg Oral Q8H Karen Palacio APRN PRE FABRICATOR 975 mg at 05/30/24 1231 cetirizine (zyrTEC) tablet 10 mg 10 mg Oral At Bedtime Karen Palacio APRN CNP gabapentin (NEURONTIN) capsule 100 mg 100 mg Oral BID Karen Palacio APRN PRE FABRICATOR 100 mg at 05/30/24 1232 gabapentin (NEURONTIN) capsule 300 mg 300 mg Oral BID Karen Palacio APRN PRE FABRICATOR 300 mg at 05/30/24 1232 gabapentin (NEURONTIN) capsule 400 mg 400 mg Oral At Bedtime Karen Palacio APRNCNP 400 mg at 05/29/24 2216 magnesium oxide (MAG-OX) tablet 400 mg 400 mg Oral TID w/meals Azar Umanzor MD 400 mg at 05/30/24 1153 potassium chloride deanne ER (KLOR-CON M20) CR tablet 40 mEq 40 mEq Oral 4x Daily Azar Umanzor MD 40 mEq at 05/30/24 1153 sodium chloride (PF) 0.9% PF flush 3 mL 3 mL Intracatheter Q8H Azar Umanzor MD Current Facility-Administered Medications Medication Dose Route Frequency Provider Last Rate Last Admin acetaminophen (TYLENOL) tablet 650 mg 650 mg Oral Q4H PRN Azar Umanzor MD calcium carbonate (TUMS) chewable tablet 1,000 mg 1,000 mg Oral 4x Daily PRN Azar Umanzor MD diclofenac (VOLTAREN) 1 % topical gel 2 g 2 g Topical TID PRN Karen Palacio APRN CNP Lidocaine (LIDOCARE) 4 % Patch 1 patch 1 patch Transdermal Q24H PRN Karen Coe APRN CNP lidocaine (LMX4) cream Topical Q1H PRN Azar Umanzor MD lidocaine 1 % 0.1-1 mL 0.1-1 mL Other Q1H PRN Azar Umanzor MD methocarbamol (ROBAXIN) tablet 750 mg 750 mg Oral TID PRN Karen Palacio APRN CNP naloxone (NARCAN) injection 0.2 mg 0.2 mg Intravenous Q2 Min PRN Azar Umanzor MD Or naloxone (NARCAN) injection 0.4 mg 0.4 mg Intravenous Q2 Min PRN Azar Umanzor MD Or naloxone (NARCAN) injection 0.2 mg 0.2 mg Intramuscular Q2 Min PRN Azar Umanzor MD Or naloxone (NARCAN) injection 0.4 mg 0.4 mg Intramuscular Q2 Min PRN Azar Umanzor MD [START ON 05/31/2024] oxyCODONE IR (ROXICODONE) half-tab 2.5 mg 2.5 mg Oral Q6H PRN Karen Palacio APRN CNP oxyCODONE IR (ROXICODONE) half-tab 7.5 mg 7.5 mg Oral Q6H PRN Karen Palacio APRN CNP senna-docusate (SENOKOT-S/PERICOLACE) 8.6-50 MG per tablet 1 tablet 1 tablet Oral BID PRN Azar Umanzor MD Or senna-docusate (SENOKOT-S/PERICOLACE) 8.6-50 MG per tablet 2 tablet 2 tablet Oral BID PRN Azar Umanzor MD sodium chloride (PF) 0.9% PF flush 3 mL 3 mL Intracatheter q1 min prn Azar Umanzor MD 3 mL at 05/29/241933 traMADol (ULTRAM) tablet 50 mg 50 mg Oral Q6H PRN Karen Palacio APRN CNP Review of Systems: Taking p.o. well. No nausea or vomiting. She denies shortness of breath. She complains of pain in her left ankle. This is after her fall at home. Physical Exam: Vitals were reviewed Wt Readings from Last 4 Encounters: 05/30/24 47.1 kg (103 lb 14.4 oz) 05/15/24 47.2 kg (104 lb 1.6 oz) 04/23/24 48.1 kg (106 lb) 04/02/24 48.7 kg (107 lb 4.8 oz) Blood pressure range: Systolic (24hrs), Av , Min:113 , Max:130 Blood pressure range: Diastolic (24hrs), Av, Min:78, Max:103 Intake/Output Summary (Last 24 hours) at 05/30/2024 1238 Last data filed at 05/29/2024 2145 Gross per 24 hour Intake -- Output 600 ml Net -600 ml Alert and responsive, she is thin-cachectic Head shows no trauma Mouth shows a deformed teeth and eroded teeth consistent with vomiting Neck is supple Lungs show clear breath sounds Cardiac exam regular rhythm normal S1-S2 no murmur no jugular venous distention Good peripheral pulses no edema, tenderness left ankle to palpation and range of motion Data: All laboratory data reviewed Results for orders placed or performed during the hospital encounter of 05/29/24 (from the past 24 hours) EKG 12 lead Result Value Ref Range Systolic Blood Pressure mmHg Diastolic Blood Pressure mmHg Ventricular Rate 83 BPM Atrial Rate 83 BPM NJ Interval 128 ms QRS Duration 96 ms QT 424 ms QTc 498 ms P [place] 61 degrees R AXIS 85 degrees T [place] 80 degrees Interpretation ECG Sinus rhythm Nonspecific ST abnormality QTcB >= 480 msec Abnormal ECG When compared with ECG of 15-May-2024 14:12, T wave inversion no longer evident in Inferior leads T wave inversion no longer evident in Anterior leads Confirmed by - EMERGENCY ROOM, PHYSICIAN ([id number]), order editor LUPE VILLAGOMEZ ([id number]) on 05/29/2024 3:24:01 PM Blood gas venous Result Value Ref Range pH Venous 7.56 (H) 7.32 - 7.43 pCO2 Venous 71 (H) 40 - 50 mm Hg pO2 Venous 38 25 - 47 mm Hg Bicarbonate Venous >45 (HH) 21 - 28 mmol/L Base Excess/Deficit Venous FIO2 21 Oxyhemoglobin Venous 67 (L) 70 - 75 % O2 Sat, Venous 67.1 (L) 70.0 - 75.0 % Narrative In healthy individuals, oxyhemoglobin (O2Hb) and oxygen saturation (SO2) are approximately equal. In the presence of dyshemoglobins, oxyhemoglobin can be considerably lower than oxygen saturation. CBC with platelets Result Value Ref Range WBC Count 9.0 4.0 - 11.0 10e3/uL RBC Count 3.96 3.80 - 5.20 10e6/uL Hemoglobin 10.7 (L) 11.7 - 15.7 g/dL Hematocrit 31.9 (L) 35.0 - 47.0 % MCV 81 78 - 100 fL MCH 27.0 26.5 - 33.0 pg MCHC 33.5 31.5 - 36.5 g/dL RDW 13.3 10.0 - 15.0 % Platelet Count 575 (H) 150 - 450 10e3/uL Comprehensive metabolic panel Result Value Ref Range Sodium 130 (L) 135 - 145 mmol/L Potassium 3.5 3.4 - 5.3 mmol/L Carbon Dioxide (CO2) 49 (HH) 22 - 29 mmol/L Anion Gap 12 7 - 15 mmol/L Urea Nitrogen 52.2 (H) 6.0 - 20.0 mg/dL Creatinine 3.05 (H) 0.51 - 0.95 mg/dL GFR Estimate 20 (L) >60 mL/min/1.73m2 Calcium 13.8 (H) 8.8 - 10.4 mg/dL Chloride 69 (L) 98 - 107 mmol/L Glucose 124 (H) 70 - 99 mg/dL Alkaline Phosphatase 88 40 - 150 U/L AST 37 0 - 45 U/L ALT 12 0 - 50 U/L Protein Total 8.8 (H) 6.4 - 8.3 g/dL Albumin 5.1 3.5 - 5.2 g/dL Bilirubin Total 0.3 <=1.2 mg/dL Magnesium Result Value Ref Range Magnesium 2.4 (H) 1.7 - 2.3 mg/dL TSH with free T4 reflex Result Value Ref Range TSH 1.95 0.30 - 4.20 uIU/mL Chandler Draw Narrative The following orders were created for panel order Chandler Draw. Procedure Abnormality Status --------- ------ Extra Blue Top Tube[[id number]] Final result Extra Red Top Tube[[id number]] Final result Please view results for these tests on the individual orders. Sodium random urine Result Value Ref Range Sodium Urine mmol/L 44 mmol/L Potassium random urine Result Value Ref Range Potassium Urine 44.8 mmol/L Chloride random urine Result Value Ref Range Chloride Urine mmol/L <20 mmol/L Protein random urine Result Value Ref Range Total Protein Urine mg/dL 44.4 mg/dL Total Protein Urine mg/mg Creat 1.14 (H) 0.00 - 0.20 mg/mg Cr Creatinine Urine mg/dL 38.9 mg/dL UA with Microscopic Result Value Ref Range Color Urine Light Yellow Colorless, Straw, Light Yellow, Yellow Appearance Urine Clear Clear Glucose Urine Negative Negative mg/dL Bilirubin Urine Negative Negative Ketones Urine Negative Negative mg/dL Specific [place] Urine 1.010 1.003 - 1.035 Blood Urine Negative Negative pH Urine 8.0 (H) 5.0 - 7.0 Protein Albumin Urine 50 (A) Negative mg/dL Urobilinogen Urine Normal Normal, 2.0 mg/dL Nitrite Urine Negative Negative Leukocyte Esterase Urine Negative Negative Bacteria Urine Few (A) None Seen /HPF RBC Urine 1 <=2 /HPF WBC Urine 2 <=5 /HPF Squamous Epithelials Urine <1 <=1 /HPF Hyaline Casts Urine 3 (H) <=2 /LPF Albumin Random Urine Quantitative with Creat Ratio Result Value Ref Range Creatinine Urine mg/dL 37.8 mg/dL Albumin Urine mg/L 165.0 mg/L Albumin Urine mg/g Cr 436.51 (H) 0.00 - 25.00 mg/g Cr Extra Blue Top Tube Result Value Ref Range Hold Specimen JIC Extra Red Top Tube Result Value Ref Range Hold Specimen JIC XR Knee Left 3 Views Narrative XR KNEE LEFT 3 VIEWS 05/29/2024 4:02 PM HISTORY: fall, knee pain COMPARISON: None. Impression IMPRESSION: No fracture or malalignment. No effusion. Joint spaces are maintained. HUSEYIN MCKEON MD SYSTEM ID: [id number] XR Ankle Left G/E 3 Views Narrative XR ANKLE LEFT G/E 3 VIEWS 05/29/2024 4:02 PM HISTORY: fall, ankle pain COMPARISON: None. Impression IMPRESSION: No fracture. Intact ankle mortise and distal syndesmosis. HUSEYIN MCKEON MD SYSTEM ID: [id number] Potassium Result Value Ref Range Potassium 2.4 (LL) 3.4 - 5.3 mmol/L Phosphorus Result Value Ref Range Phosphorus 3.3 2.5 - 4.5 mg/dL Basic metabolic panel Result Value Ref Range Sodium 133 (L) 135 - 145 mmol/L Potassium 2.7 (L) 3.4 - 5.3 mmol/L Chloride 81 (L) 98 - 107 mmol/L Carbon Dioxide (CO2) 39 (H) 22 - 29 mmol/L Anion Gap 13 7 - 15 mmol/L Urea Nitrogen 47.6 (H) 6.0 - 20.0 mg/dL Creatinine 3.02 (H) 0.51 - 0.95 mg/dL GFR Estimate 20 (L) >60 mL/min/1.73m2 Calcium 10.6 (H) 8.8 - 10.4 mg/dL Glucose 149 (H) 70 - 99 mg/dL Potassium Result Value Ref Range Potassium 3.2 (L) 3.4 - 5.3 mmol/L Basic metabolic panel Result Value Ref Range Sodium 139 135 - 145 mmol/L Potassium 3.7 3.4 - 5.3 mmol/L Chloride 90 (L) 98 - 107 mmol/L Carbon Dioxide (CO2) 41 (H) 22 - 29 mmol/L Anion Gap 8 7 - 15 mmol/L Urea Nitrogen 45.3 (H) 6.0 - 20.0 mg/dL Creatinine 2.74 (H) 0.51 - 0.95 mg/dL GFR Estimate 23 (L) >60 mL/min/1.73m2 Calcium 10.2 8.8 - 10.4 mg/dL Glucose 90 70 - 99 mg/dL CBC with platelets Result Value Ref Range WBC Count 7.5 4.0 - 11.0 10e3/uL RBC Count 2.91 (L) 3.80 - 5.20 10e6/uL Hemoglobin 8.0 (L) 11.7 - 15.7 g/dL Hematocrit 24.0 (L) 35.0 - 47.0 % MCV 83 78 - 100 fL MCH 27.5 26.5 - 33.0 pg MCHC 33.3 31.5 - 36.5 g/dL RDW 13.8 10.0 - 15.0 % Platelet Count 350 150 - 450 10e3/uL Magnesium Result Value Ref Range Magnesium 2.2 1.7 - 2.3 mg/dL Phosphorus Result Value Ref Range Phosphorus 2.9 2.5 - 4.5 mg/dL Potassium Result Value Ref Range Potassium 3.8 3.4 - 5.3 mmol/L EKG 12-lead, tracing only Result Value Ref Range Systolic Blood Pressure mmHg Diastolic Blood Pressure mmHg Ventricular Rate 84 BPM Atrial Rate 84 BPM NJ Interval 128 ms QRS Duration 88 ms QT 416 ms QTc 491 ms P [place] 61 degrees R AXIS 79 degrees T [place] 61 degrees Interpretation ECG Sinus rhythm ST & T wave abnormality, consider anterior ischemia Prolonged QT Abnormal ECG RATING MACHINE OPERATOR * Karen Palacio, [facility] - 05/30/2024 11:31 AM CSTAssociated Order(s): PAIN MANAGEMENT ADULT IP CONSULT Images from the original note were not included. [facility] ACUTE PAIN SERVICE CONSULTATION [facility] Infinite.ly Web Console Karen Date of Admission: 05/29/2024 Date of Consult (When I saw the patient): 05/30/24 Assessment/Plan: Assessment/Plan: Lorraine Klein is a 34 year old female who was admitted on 05/29/2024. Pain team was asked to see the patient for pain management at the patient's request for pain complaints related to a slip down 4-6 steps resulting in left knee and left ankle pain. Admitted for recurrent syncope and abnormal labs. History of Gettleman syndrome with recurrent hypokalemia, hypomagnesia, hypocalcemia, iron deficiency anemia, stage III renal disease, fibromyalgia, and prolonged QTc by history the patient doesnot smoke and has a mild opioid misuse disorder by history. She has had multiple recurrent admissions at least 6 in the last 6 months for lab abnormalities andpaired renal function. She is familiar to the pain service. Currently, she states fibromyalgia painis well-controlled. She is distraught and tearful with the degree of pain she is in with her left knee more than her left ankle feeling nothing is helping including the amount of current opioid she is taking. There is no evidence of fracture in the left knee or ankle as well as no evidence of soft tissue swelling. Normally, opioids are not given for this condition however, there are limitations with her treatment given her current prolonged QTc is at 498 ms/min and renal function is further impaired. She was informed today opioids would be tapered over the next day and by Sunday will only be given tramadolfor severe pain and multimodal analgesia identified below. Patient has had referrals to outside pain clinics in [facility] and [facility] locally. It is unclear if she ever followed up with the [facility]. Per my conversation today with [facility] nurse patient did not come to her scheduled visit this past early summer nor has she scheduled following a note entry in March of this year at the pain clinic. [facility] to assist with her pain management as an outpatient Opioid Induced Respiratory Depression Risk Assessment:?Moderate CrCl 21.7 mg/mL The patient's home MME was 4-7.5 mg daily. In the last 24 hours, patient has utilized 30 mg of PO oxycodone, 0.8 mg of IV hydromorphone, for an MME 61 mg (yesterday MME was --- mg, but likely higher than today). PLAN: 1) Pain is consistent with musculoskeletal in the setting of complex medical history and somatization of pain symptoms. Multimodal Medication Therapy Topical: Diclofenac gel 2 g, lidocaine patch as needed left knee NSAID'S: Avoid due to stage III renal Steroids: Avoid and not indicated Muscle Relaxants: Reduced methocarbamol to 3 times daily 750 mg as as needed Adjuvants: Stop hydroxyzine as this is a QTc prolonging agent. Schedule Zyrtec 10 mg at at bedtime Antidepressants/anxiolytics: None Opioids: -Reduce oxycodone to 7.5 mg every 6 hours for severe pain x 4 doses -05/31/2024 oxycodone 2.5 mg every 6 hours as needed x 4 doses then stop -Tramadol 50 mg every 6 hours as needed moderate pain (limit 4/day) max renal dose is 200 mg/day IV Pain medication: Dilaudid 0.3 mg x 1 dose patient is aware she is not to receive further IV opiates as for her current condition this is not indicated Non-medication interventions: Ice, Rest, PT, OT, and elevation Constipation Prophylaxis: Scheduled and prn: Senekot and Miralax -Opioid prescriber has been primary care provider -[place] [facility] pulled from system on 05/30/2024 and concerns for small recurrent opioid refills. reviewed by me indicating small quantities of oxycodone #12 tabs tramadol No. 60 tabs March and April of this year, 12 tabs hydromorphone 5 mg last prescribed 04/07/2024 #12 tabs. Patient has had frequent refills of small quantities through the year of these medications. This indicates mild to moderate tolerance Discharge Recommendations - We recommend prescribing the following at the time of discharge: Tramadol 50 mg (limit 200 mg/day) #12 No other opioids indicated given current medical condition does not warrant ongoing opioid therapy other than tramadol Do not resume Hydroxyzine due to prolonged QT-C effects. Zyrtec 5 mg twice daily as needed inflammatory pain Resume methocarbamol 750 mg, but limit 3 times daily as needed If renal function below 30 mL/minute would limit gabapentin to 700 mg/day in divided doses. Intranasal naloxone not recommended recommended. script was not sent to the pharmacy. Follow up primary care, pain clinic (has referral to [facility] and they are agreeable to see her per my discussion today) Acute pain service will continue to follow Disposition: Home Prescribing at discharge: Hospital medicine History of Present Illness (HPI): Lorraine Klein is a 34 year old female with a past medical history noted above and presents with syncope and fall downstairs resulting in pain location left knee and ankle. Reports pain is limiting mobility and states I must manually left my leg as it hurts so bad in the knee nothing is helping (oxycodone Dilaudid topicals). She is requesting stronger pain medication is tearful and very focused on her pain symptoms. Current pain is rated at 9/10 and goal is 4/10. The patient has a mild tomoderate opioid tolerance. Opioid induced side effects including sedation, respiratory suppression,nausea, and constipation are not noted. She denies dizziness lightheadedness, shortness of breath chest pain, changes in bowel or bladder, no changes in appetite. Discussed multimodal interventions as well as other than systemic pharmacologic treatments for acute and chronic pain . Review of medical record/Summary of labs and care everywhere as part of comprehensive review. Past pain treatments have include medications, UDS Amphetamine Qual Urine Date Value Ref [...] negative PCP is less than 25 ng/mL. Urine drug screen interpretation is as expected results Medical History has a past medical history [...] Excise Lesion Axilla (Left); Laparoscopy diagnostic (general) (2017); Esophagoscopy, gastroscopy, duodenoscopy (EGD), combined (Left, 11/03/2019); [...] nausea or vomiting.Yes Unknown, Entered By History oxyCODONE (ROXICODONE) 5 MG tablet Take 5 mg by mouth every 6 hours as needed for severe pain. Yes Unknown, Entered By History potassium chloride deanne ER (KLOR-CON M20) 20 MEQ CR tablet Take 40 mEq by mouth 4 times daily. Yes Unknown, Entered By History [...] found to be negative. Objective: Vitals: B/P: 114/85, T: 97.6, P: 79, R: 16 Weight: 103 lbs 14.4 oz Body mass index is 16.27 kg/m??. Physical Exam: General Appearance: Alert, cooperative, moderate distress, appears stated age, grooming good, is underweight Patient is pleasant Head: Normocephalic, without obvious abnormality, atraumatic Eyes: Pupils are normal position and size conjunctivae clear, no drainage ENT/Throat: Lips and mouth is moist Lymph/Neck: Supple, symmetrical, trachea midline, no adenopathy, thyroid: not enlarged, symmetric Lungs: Clear to auscultation bilaterally, respirations unlabored Chest Wall: No tenderness or deformity Cardiovascular/Heart: Regular rate and rhythm, S1, S2 Abdomen: Soft, non-tender, bowel sounds active all four quadrants, no masses, no organomegaly Musculoskeletal: Extremities normal, atraumatic Incision none Skin: Skin color good, lesions none Neurologic Affect: Alert and oriented X 3, Moves all 4 extremities Distraught anxious, abberant pain behaviors Yes Imaging Reviewed Personally By Myself Results for orders placed or performed during the hospital encounter of 05/29/24 XR Knee Left 3 Views Impression IMPRESSION: No fracture or malalignment. No effusion. Joint spaces are maintained. HUSEYIN MCKEON MD SYSTEM ID: [id number] XR Ankle Left G/E 3 Views Impression IMPRESSION: No fracture. Intact ankle mortise and distal syndesmosis. HUSEYIN MCKEON MD SYSTEM ID: [id number] Labs Reviewed Personally By Myself Sodium Date Value Ref Range Status 05/30/2024 139 135 - 145 mmol/L Final 11/22/2020 141 133 - 144 mmol/L Final Potassium Date Value Ref Range Status 05/30/2024 3.8 3.4 - 5.3 mmol/L Final 07/22/2021 3.5 3.4 - 5.3 mmol/L Final 11/22/2020 4.2 3.4 - 5.3 mmol/L Final Potassium POCT Date Value Ref Range Status 01/31/2023 <2.0 (LL) 3.4 - 5.3 mmol/L Final Comment: --- Chloride Date Value Ref Range Status 05/30/2024 90 (L) 98 - 107 mmol/L Final 07/22/2021 [...] Dioxide (CO2) Date Value Ref Range Status 05/30/2024 41 (H) 22 - 29 mmol/L Final 07/22/2021 27 20 - 32 mmol/L Final Anion Gap Date Value Ref Range Status 05/30/2024 8 7 - 15 mmol/L Final 07/22/2021 3 3 - 14 mmol/L Final 11/22/2020 2 (L) 3 - 14 mmol/L Final Glucose Date Value Ref Range Status 05/30/2024 90 70 - 99 mg/dL Final 07/22/2021 106 (H) 70 - 99 mg/dL Final 11/22/2020 82 70 - 99 mg/dL Final GLUCOSE BY METER POCT Date Value Ref Range Status 02/01/2023 115 (H) 70 - 99 mg/dL Final Glucose Whole Blood POCT Date Value Ref Range Status 01/31/2023 98 70 - 99 mg/dL Final Comment: --- Urea Nitrogen Date Value Ref Range Status 05/30/2024 45.3 (H) 6.0 - 20.0 mg/dL Final 07/22/2021 13 7 - 30 mg/dL Final 11/22/2020 20 7 - 30 mg/dL Final UREA NITROGEN POCT Date Value Ref Range Status 01/31/2023 47 (H) 7 - 30 mg/dL Final Comment: --- Creatinine Date Value Ref Range Status 05/30/2024 2.74 (H) 0.51 - 0.95 mg/dL Final 11/22/2020 0.80 0.52 - 1.04 mg/dL Final GFR Estimate Date Value Ref Range Status 05/30/2024 23 (L) >60 mL/min/1.73m2 Final Comment: eGFR calculated using 2020 CKD-EPI equation. 11/22/2020 >90 >60 mL/min/[1.73_m2] Final Comment: Non GFR Calc Starting 06/11/2018, serum creatinine based estimated GFR (eGFR) will be calculated using the Chronic Kidney Disease Epidemiology Collaboration (CKD-EPI) equation. Calcium Date Value Ref Range Status 05/30/2024 10.2 8.8 - 10.4 mg/dL Final Comment: Reference [...] in patient's chart. yes Total time spent 65 minutes with greater than 50% in consultation, education and coordination of care. Also discussed with RN, Hospital Medicine Service, and Pain Clinic. I discussed and educated the pain plan with the patient regarding: multimodal pain approach, medications as listed above, advised keeping track of doses, educated on tapering off as pain improves, watch for constipation and stool softeners, and advised to take no more than the prescribed dose as increased doses may cause respiratory depression or . Treatment plan includes: multimodal pain approach, Hospital Medicine Service for medical management. Elements of Medical Decision Making as described above. High level of decision making required due to 1 or more chronic illness with severe exacerbation, progression, and side effects of treatment. Acute or chronic illness or injury or surgery. High risk therapy including opioids, high risk drug therapy including oral and/or parenteral controlled substances. Please see A&P for additional details of medical decision making. Patient is understanding of the plan. All questions and concerns addressed to patient's satisfaction. Karen Palacio, [employer]WING MACHINE OPERATOR,PRE FABRICATOR, ACHPN, PGMT-BC Acute Pain Team ( [facility], [facility], [facility]) 8-4:30 after 3:30 contact primary team No weekend coverage Securely message with the Vocera Web Console (learn more here) RATING MACHINE OPERATOR documented in this encounter ED Notes * Kristen Finley, RN - 05/29/2024 5:11 PM CST [facility] ED Nurse Handoff Report ED Chief complaint: Syncope and Abnormal Labs . ED Diagnosis: Final diagnoses: None Allergies: Allergies Allergen Reactions Iron Sucrose Anxiety [...] standby. Lift room needed: No. Bariatric: No [employer] Needed: No Isolation: No. Infection: Not Applicable. Respiratory status: Room air Vital Signs (within 30 minutes): Vitals: 05/29/24 1348 BP: (!) 130/103 Pulse: 108 Resp: 18 Temp: 97.3 ??F (36.3 ??C) TempSrc: Temporal SpO2: 99% Weight: 50.4 kg (111 lb 1.8 oz) Height: 1.702 m (5' 7) Cardiac Rhythm: , Pain level: Patient confused: No. Patient Falls Risk: Non skid footwear . Elimination Status: Has voided Patient Report - Initial Complaint: Syncopal episode/fall, . Focused Assessment: MusculoskeletalMusculoskeletal WDL: .WDL except (Pt complains of increased dizziness today, resulting in a fall down 5 stairs. Patient did have LOC, denies neck pain/stiffness. Is not on a blood thinner. Is now having pain in the L knee and ankle. States she woke up with the L leg in a weird position) Abnormal Results: Labs Ordered and Resulted from Time of ED Arrival to Time of ED Departure BLOOD GAS VENOUS - Abnormal Result Value pH Venous 7.56 (*) pCO2 Venous 71 (*) pO2 Venous 38 Bicarbonate Venous >45 (*) Base Excess/Deficit Venous FIO2 21 Oxyhemoglobin Venous 67 (*) O2 Sat, Venous 67.1 (*) CBC WITH PLATELETS - Abnormal WBC Count 9.0 RBC Count 3.96 Hemoglobin 10.7 (*) Hematocrit 31.9 (*) MCV 81 MCH 27.0 MCHC 33.5 RDW 13.3 Platelet Count 575 (*) COMPREHENSIVE METABOLIC PANEL - Abnormal Sodium 130 (*) Potassium 3.5 Carbon Dioxide (CO2) 49 (*) Anion Gap 12 Urea Nitrogen 52.2 (*) Creatinine 3.05 (*) GFR Estimate 20 (*) Calcium 13.8 (*) Chloride 69 (*) Glucose 124 (*) Alkaline Phosphatase 88 AST 37 ALT 12 Protein Total 8.8 (*) Albumin 5.1 Bilirubin Total 0.3 MAGNESIUM - Abnormal Magnesium 2.4 (*) PROTEIN RANDOM URINE - Abnormal Total Protein Urine mg/dL 44.4 Total Protein Urine mg/mg Creat 1.14 (*) Creatinine Urine mg/dL 38.9 ROUTINE UA WITH MICROSCOPIC - Abnormal Color Urine Light Yellow Appearance Urine Clear Glucose Urine Negative Bilirubin Urine Negative Ketones Urine Negative Specific [place] Urine 1.010 Blood Urine Negative pH Urine 8.0 (*) Protein Albumin Urine 50 (*) Urobilinogen Urine Normal Nitrite Urine Negative Leukocyte Esterase Urine Negative Bacteria Urine Few (*) RBC Urine 1 WBC Urine 2 Squamous Epithelials Urine <1 Hyaline Casts Urine 3 (*) TSH WITH FREE T4 REFLEX - Normal TSH 1.95 SODIUM RANDOM URINE Sodium Urine mmol/L 44 POTASSIUM RANDOM URINE CHLORIDE RANDOM URINE ALBUMIN RANDOM URINE QUANTITATIVE POTASSIUM XR Ankle Left G/E 3 Views Final Result IMPRESSION: No fracture. Intact ankle mortise and distal syndesmosis. HUSEYIN MCKEON MD SYSTEM ID: [id number] XR Knee Left 3 Views Final Result IMPRESSION: No fracture or malalignment. No effusion. Joint spaces are maintained. HUSEYIN MCKEON MD SYSTEM ID: [id number] Treatments provided: Oral pain meds, x-rays, fluids bolus Family Comments: Per patient OBS brochure/video discussed/provided to patient: N/A ED Medications: Medications sodium chloride 0.9% BOLUS 1,000 mL (1,000 mLs Intravenous $New Bag 05/29/24 1633) oxyCODONE (ROXICODONE) tablet 10 mg (10 mg Oral $Given 05/29/24 1549) acetaminophen (TYLENOL) tablet 975 mg (975 mg Oral $Given 05/29/24 1549) Drips infusing: No For the majority of the shift this patient was Green. Interventions performed were N/A. 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 The patient reports that she was admitted on 05/15/2024 for electrolyte abnormalities and a near syncopal episode. She was discharged on 05/19/2024 with instructionsto consult with a Nephrology physician in 1 to 2 weeks regarding her kidney function and electrolyte levels. The patient was evaluated by her primary care physician 2 days ago, where she had labs drawn. These labs indicated that the patient had a potassium level of 2 and a creatinine level of 4, prompting the patients primary care physician to refer her to the ED. The patient endorses experiencing nausea and an increased urinary frequency for the past three days. She additionally endorses experiencing a syncopal episode three days ago. Explains that she was up five stairs at her home when herright foot slipped and she lost consciousness, awakening at the bottom of the stairs. Currently endorses experiencing diffuse pain in the left knee and ankle. Denies experiencing vomiting. Independent Historian None Review of External Notes Discharge summary from last month, admission for recurrent hypokalemia, BARBARA's and alkalosis, seen by nephrology, concern for potential Gettleman syndrome. They were asking for urine electrolytes prior to repletion in the ER. Past Medical History Medical History and Problem [...] Temp src Pulse Resp SpO2 Height Weight 05/29/24 1858 (!) 127/93 98.6 ??F (37 ??C) Oral 76 16 -- -- 47.6 kg (105 lb) 05/29/24 1800 125/79 -- -- 84 -- 100 % -- -- 05/29/24 1730 119/85 -- -- 79 18 96 % -- -- 05/29/24 1348 (!) 130/103 97.3 ??F (36.3 ??C) Temporal 108 18 99 % 1.702 m (5' 7) 50.4 kg (111 lb 1.8 oz) Physical Exam Constitutional: Alert, attentive, GCS 15 HENT: Nose: Nose normal. Mouth/Throat: Oropharynx is clear, mucous membranes are dry, poor dentition Eyes: EOM are normal, anicteric, conjugate gaze CV: regular rate and rhythm Chest: Effort normal and breath sounds clear without wheezing or rales, symmetric bilaterally GI: non tender. No distension. No guarding or rebound. MSK: No LE edema, Diffuse tenderness to left ankle and knee. Neurological: Alert, attentive, moving all extremities equally. Skin: Skin is warm and dry. Diagnostics Lab Results Labs Ordered and Resulted from Time of ED Arrival to Time of ED Departure BLOOD GAS VENOUS - Abnormal Result Value pH Venous 7.56 (*) pCO2 Venous 71 (*) pO2 Venous 38 Bicarbonate Venous >45 (*) Base Excess/Deficit Venous FIO2 21 Oxyhemoglobin Venous 67 (*) O2 Sat, Venous 67.1 (*) CBC WITH PLATELETS - Abnormal WBC Count 9.0 RBC Count 3.96 Hemoglobin 10.7 (*) Hematocrit 31.9 (*) MCV 81 MCH 27.0 MCHC 33.5 RDW 13.3 Platelet Count 575 (*) COMPREHENSIVE METABOLIC PANEL - Abnormal Sodium 130 (*) Potassium 3.5 Carbon Dioxide (CO2) 49 (*) Anion Gap 12 Urea Nitrogen 52.2 (*) Creatinine 3.05 (*) GFR Estimate 20 (*) Calcium 13.8 (*) Chloride 69 (*) Glucose 124 (*) Alkaline Phosphatase 88 AST 37 ALT 12 Protein Total 8.8 (*) Albumin 5.1 Bilirubin Total 0.3 MAGNESIUM - Abnormal Magnesium 2.4 (*) PROTEIN RANDOM URINE - Abnormal Total Protein Urine mg/dL 44.4 Total Protein Urine mg/mg Creat 1.14 (*) Creatinine Urine mg/dL 38.9 ROUTINE UA WITH MICROSCOPIC - Abnormal Color Urine Light Yellow Appearance Urine Clear Glucose Urine Negative Bilirubin Urine Negative Ketones Urine Negative Specific [place] Urine 1.010 Blood Urine Negative pH Urine 8.0 (*) Protein Albumin Urine 50 (*) Urobilinogen Urine Normal Nitrite Urine Negative Leukocyte Esterase Urine Negative Bacteria Urine Few (*) RBC Urine 1 WBC Urine 2 Squamous Epithelials Urine <1 Hyaline Casts Urine 3 (*) POTASSIUM - Abnormal Potassium 2.4 (*) TSH WITH FREE T4 REFLEX - Normal TSH 1.95 PHOSPHORUS - Normal Phosphorus 3.3 SODIUM RANDOM URINE Sodium Urine mmol/L 44 POTASSIUM RANDOM URINE CHLORIDE RANDOM URINE ALBUMIN RANDOM URINE QUANTITATIVE Imaging XR Ankle Left G/E 3 Views Final Result IMPRESSION: No fracture. Intact ankle mortise and distal syndesmosis. HUSEYIN MCKEON MD SYSTEM ID: [id number] XR Knee Left 3 Views Final Result IMPRESSION: No fracture or malalignment. No effusion. Joint spaces are maintained. HUSEYIN MCKEON MD SYSTEM ID: [id number] EKG ECG taken at 1410, ECG read at 1415 Normal Sinus Rhythm Nonspecific ST Abnormality QTcB >= 480 msec Abnormal ECG QTT by 36 ms as compared to prior, dated 05/15/2024. Rate 83 bpm. [place] interval 128 ms. QRS duration 96 ms. QT/QTc 424/498 ms. P-R-T axes 61 85 80. Independent Interpretation None ED Course Medications Administered Medications sodium chloride 0.9% BOLUS 1,000 mL (has no administration in time range) gabapentin (NEURONTIN) capsule 300 mg (has no administration in time range) hydrOXYzine HCl (ATARAX) tablet 25-50 mg (has no administration in time range) magnesium oxide (MAG-OX) tablet 400 mg (has no administration in time range) methocarbamol (ROBAXIN) tablet 750 mg (has no administration in time range) oxyCODONE (ROXICODONE) tablet 5-10 mg (has no administration in time range) potassium chloride deanne ER (KLOR-CON M20) CR tablet 40 mEq (has no administration in time range) lidocaine 1 % 0.1-1 mL (has no [...] mg (has no administration in time range) acetaminophen (TYLENOL) tablet 650 mg (has no administration in time range) sodium chloride 0.9 % infusion (has no administration in time range) gabapentin (NEURONTIN) capsule 100 mg (has no administration in time range) oxyCODONE (ROXICODONE) tablet 10 mg (10 mg Oral $Given 05/29/24 1026) acetaminophen (TYLENOL) tablet 975 mg (975 mg Oral $Given 05/29/24 1549) sodium chloride 0.9% BOLUS 1,000 mL (1,000 mLs Intravenous $New Bag 05/29/24 1633) potassium chloride 10 mEq in 100 mL sterile water infusion (10 mEq Intravenous $New Bag 05/29/24 1810) potassium chloride (KLOR-CON) Packet 40 mEq (40 mEq Oral $Given 05/29/241813) Procedures Procedures Discussion of Management Dr. Umanzor, Hospitalist ED Course ED Course as of 05/29/24 191 Emiliana May 29, 2024 1529 I obtained the history and evaluated the patient as noted above. 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 She had screening labs done yesterday that were abnormal referring her here to the emergency department. Potassium here is 2.4, creatinine is 3.05 up from baseline closer to 1.2. She is alkalotic with bicarb greater than 45 and pH of 7.54 though denies any overt vomiting. She was given IV fluids as well as IV and p.o. potassium repletion. Urine and urine studies were sent per nephrology's recommendations last hospitalization prior to electrolyte repletion or IV fluids. Patient did note that she either fainted or slipped down the stairs yesterday, complaining only of isolated left knee and ankle pain, x-rays here are negative for fracture. There is no reported head injury, no neck pain. Disposition The patient was discharged. Diagnosis ICD-10-CM 1. Hypokalemia E87.6 2. BARBARA (acute kidney injury) (H) N17.9 3. Hypercalcemia E83.52 4. 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 Jamil Carlin MD 05/29/24 191 RATING MACHINE OPERATOR * Aileen Hylton RN - 05/29/2024 1:46 PM CST Pt states that she was seen by her PCP yesterday and her K was 2 and her create was about 4. She states that she has a hx of a kidney disorder and that she generally has to be admitted for fluids andtelemetry when her labs get out of control. She states that yesterday she had a syncopal episode and fell down about 5 stairs and hurt her left ankle and left knee. Triage Assessment (Adult) Row Name 05/29/24 1346 Triage Assessment Airway WDL WDL Respiratory WDL Respiratory WDL WDL Cardiac WDL Cardiac WDL WDL RATING MACHINE OPERATOR documented in this encounter Miscellaneous Notes * Plan of Care - Bailey Lloyd RN - 05/31/2024 5:56 PM CST Patient left AMA, IV removed, belongings returned. Goal Outcome Evaluation: Plan of Care Reviewed With: patient Overall Patient Progress: improvingOverall Patient Progress: improving Outcome Evaluation: CT ordered of L) knee, pain management, K/Mg/Phos protocols Problem: Adult Inpatient Plan of Care Goal: Plan of Care Review Description: The Plan of Care Review/Shift note should be completed every shift. The Outcome Evaluation is a brief statement about your assessment that the patient is improving, declining, or no change. This information will be displayed automatically on your shift note. Outcome: Progressing Flowsheets (Taken 05/31/2024 1325) Outcome Evaluation: CT ordered of L) knee, pain management, K/Mg/Phos protocols Plan of Care Reviewed With: patient Overall [...] Manage Fall Risk Recent Flowsheet Documentation Taken 05/31/2024 1024 by Bailey Lloyd RN Safety Promotion/Fall Prevention: safety round/check completed Taken 05/31/2024 0935 by Bailey Lloyd RN Safety Promotion/Fall Prevention: safety round/check completed Taken 05/31/2024 0825 by Bailey Lloyd RN Safety Promotion/Fall Prevention: safety round/check completed Intervention: Prevent Skin Injury Recent Flowsheet Documentation Taken 05/31/2024 1024 by Bailey Lloyd RN Body Position: position changed independently Taken 05/31/2024 0935 by Bailey Lloyd RN Body Position: position changed independently Taken 05/31/2024 08 by Bailey Lloyd RN Body Position: position changed independently Intervention: Prevent and Manage VTE (Venous Thromboembolism) Risk Recent Flowsheet Documentation Taken 05/31/2024 0825 by Bailey Lloyd RN VTE Prevention/Management: SCDs off (sequential compression devices) patient refused intervention Goal: Optimal Comfort and Wellbeing Outcome: Progressing Intervention: Monitor Pain and Promote Comfort Recent Flowsheet Documentation Taken 05/31/2024 1024 by Bailey Lloyd RN Pain Management Interventions: medication (see MAR) Taken 05/31/2024 08 by Bailey Lloyd RN Pain Management Interventions: heat applied medication (see MAR) Goal: Readiness for Transition of Care Outcome: Progressing Problem: Pain Acute Goal: Optimal Pain Control and Function Outcome: Progressing Intervention: Develop Pain Management Plan Recent Flowsheet Documentation Taken 05/31/2024 1024 by Bailey Llody RN Pain Management Interventions: medication (see MAR) Taken 05/31/2024 0825 by Bailey Lloyd RN Pain Management Interventions: heat applied medication (see MAR) Intervention: Prevent or Manage Pain Recent Flowsheet Documentation Taken 05/31/2024 1024 by Bailey Lloyd RN Medication Review/Management: medications reviewed Taken 05/31/2024 0935 by Bailey Lloyd RN Medication Review/Management: medications reviewed Taken 05/31/2024 0825 by Bailey Lloyd RN Medication Review/Management: medications reviewed Problem: Electrolyte Imbalance Goal: Electrolyte Balance Outcome: Progressing Problem: Fall Injury Risk Goal: Absence of Fall and Fall-Related Injury Outcome: Progressing Intervention: Identify and Manage Contributors Recent Flowsheet Documentation Taken 05/31/2024 1024 by Bailey Lloyd RN Medication Review/Management: medications reviewed Taken 05/31/2024 0935 by Bailey Lloyd RN Medication Review/Management: medications reviewed Taken 05/31/2024 0825 by Bailey Lloyd RN Medication Review/Management: medications reviewed Intervention: Promote Injury-Free Environment Recent Flowsheet Documentation Taken 05/31/2024 1024 by Bailey Lloyd RN Safety Promotion/Fall Prevention: safety round/check completed Taken 05/31/2024 0935 by Bailey Lloyd RN Safety Promotion/Fall Prevention: safety round/check completed Taken 05/31/2024 0825 by Bailey Lloyd RN Safety Promotion/Fall Prevention: safety round/check completed 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 A&Ox4. Up ad kathy when OOB- patient refused all fall interventions/assistance- educated on risks and patient verbalized understanding of risks given prior syncopal episode.On RA. On a high calorie/high protein diet. C/O severe pain in L knee/ankle- utilized ice & given PRN pain medications with no success. Refused the use of any topical pain interventions when offer ed. No redness/warmth/swelling to either area noted. Patient expressed some frustrations with new pain regimen and would like further imaging on L knee (sticky notes left in chart regarding these 2 concerns per patient request). On telemetry- SR. Plan of care ongoing. Goal Outcome Evaluation: Plan of Care Reviewed With: patient Overall Patient Progress: no changeOverall Patient Progress: no change Outcome Evaluation: A&Ox4, on tele, pain mangement Problem: Pain Acute Goal: Optimal Pain Control and Function Outcome: Not Progressing Intervention: Develop Pain Management Plan Recent Flowsheet Documentation Taken 05/31/2024 0338 by Laura Peralta RN Pain Management Interventions: medication (see MAR) Taken 05/31/2024 002 by Laura Peralta RN Pain Management Interventions: cold applied rest Taken 05/30/20242313 by Laura Peralta RN Pain Management Interventions: cold applied rest Taken 05/30/20242214 by Laura Peralta RN Pain Management Interventions: medication (see MAR) Taken 05/30/20242133 by Laura Peralta RN Pain Management Interventions: cold applied rest Taken 05/30/20242046 by Laura Peralta RN Pain Management Interventions: medication (see MAR) Taken 05/30/20241940 by Laura Peralta RN Pain Management Interventions: medication (see MAR) Intervention: Prevent or Manage Pain Recent Flowsheet Documentation Taken 05/30/20241940 by Laura Peralta RN Medication Review/Management: medications reviewed Problem: Adult Inpatient Plan of Care Goal: Plan of Care Review Description: The Plan of Care Review/Shift note should be completed every shift. The Outcome Evaluation is a brief statement about your assessment that the patient is improving, declining, or no change. This information will be displayed automatically on your shift note. Outcome: Progressing Flowsheets (Taken 05/31/2024 0409) Outcome Evaluation: A&Ox4, on tele, pain mangement Plan of Care Reviewed With: patient Overall [...] Manage Fall Risk Recent Flowsheet Documentation Taken 05/31/2024 0338 by Laura Peralta RN Safety Promotion/Fall Prevention: safety round/check completed Taken 05/31/202424 by Laura Peralta RN Safety Promotion/Fall Prevention: safety round/check completed Taken 05/30/20242214 by Laura Peralta RN Safety Promotion/Fall Prevention: safety round/check completed Taken 05/30/20241940 by Laura Peralta RN Safety Promotion/Fall Prevention: lighting adjusted nonskid shoes/slippers when out of bed room near nurse's station safety round/check completed Intervention: Prevent Skin Injury Recent Flowsheet Documentation Taken 05/30/20241940 by Laura Peralta RN Body Position: position changed independently Intervention: Prevent and Manage VTE (Venous Thromboembolism) Risk Recent Flowsheet Documentation Taken 05/30/20241940 by Laura Peralta RN VTE Prevention/Management: SCDs off (sequential compression devices) patient refused intervention Intervention: Prevent Infection Recent Flowsheet Documentation Taken 05/30/20241940 by Laura Peralta RN Infection Prevention: equipment surfaces disinfected hand hygiene promoted personal protective equipment utilized rest/sleep promoted single patient room provided Goal: Optimal Comfort and Wellbeing Outcome: Progressing Intervention: Monitor Pain and Promote Comfort Recent Flowsheet Documentation Taken 05/31/2024337 by Laura Peralta RN Pain Management Interventions: medication (see MAR) Taken 05/31/2024 002 by Laura Peralta RN Pain Management Interventions: cold applied rest Taken 05/30/20242313 by Laura Peralta RN Pain Management Interventions: cold applied rest Taken 05/30/20242214 by Laura Peralta RN Pain Management Interventions: medication (see MAR) Taken 05/30/20242133 by Laura Peralta RN Pain Management Interventions: cold applied rest Taken 05/30/20242046 by Laura Peralta RN Pain Management Interventions: medication (see MAR) Taken 05/30/20241940 by Laura Peralta RN Pain Management Interventions: medication (see MAR) Goal: Readiness for Transition of Care Outcome: Progressing Problem: Electrolyte Imbalance Goal: Electrolyte Balance Outcome: Progressing Problem: Fall Injury Risk Goal: Absence of Fall and Fall-Related Injury Outcome: Progressing Intervention: Identify and Manage Contributors Recent Flowsheet Documentation Taken 05/30/20241940 by Laura Peralta RN Medication Review/Management: medications reviewed Intervention: Promote Injury-Free Environment Recent Flowsheet Documentation Taken 05/31/2024337 by Laura Peralta RN Safety Promotion/Fall Prevention: safety round/check completed Taken 05/31/202424 by Laura Peralta RN Safety Promotion/Fall Prevention: safety round/check completed Taken 05/30/20242214 by Laura Peralta RN Safety Promotion/Fall Prevention: safety round/check completed Taken 05/30/2024 194 by Laura Peralta RN Safety Promotion/Fall Prevention: lighting adjusted nonskid shoes/slippers when out of bed room near nurse's station safety round/check completed 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 On tele SR with prolonged Qtc. Up independent in room - refusing fall interventions. D5NS + 20mEq Kcl infusing at 125mL/hr. K/Mg/Phos protocols - rechecks in for AM, has additional scheduled Mg and K+. Chronic pain + L) knee and ankle pain - pain team following. Nephrology and nutrition following. Please document % of meal intake. Goal Outcome Evaluation: Plan of Care Reviewed With: patient Overall Patient Progress: improvingOverall Patient Progress: improving Outcome Evaluation: Pain managed with PRNs and scheduled, pain team following, K/Mg/Phos protocols + scheduled replacement, NS @ 100mL/hr Problem: Adult Inpatient Plan of Care Goal: Plan of Care Review Description: The Plan of Care Review/Shift note should be completed every shift. The Outcome Evaluation is a brief statement about your assessment that the patient is improving, declining, or no change. This information will be displayed automatically on your shift note. Outcome: Progressing Flowsheets (Taken 05/30/2024 1129) Outcome Evaluation: Pain managed with PRNs and scheduled, pain team following, K/Mg/Phos protocols + scheduled replacement, NS @ 100mL/hr Plan of Care Reviewed With: patient Overall [...] Manage Fall Risk Recent Flowsheet Documentation Taken 05/30/2024 08 by Bailey Lloyd RN Safety Promotion/Fall Prevention: safety round/check completed clutter free environment maintained nonskid shoes/slippers when out of bed patient and family education Intervention: Prevent Skin Injury Recent Flowsheet Documentation Taken 05/30/2024927 by Bailey Lloyd RN Body Position: position changed independently Taken 05/30/2024825 by Bailey Lloyd RN Body Position: position changed independently Intervention: Prevent and Manage VTE (Venous Thromboembolism) Risk Recent Flowsheet Documentation Taken 05/30/2024825 by Bailey Lloyd RN VTE Prevention/Management: SCDs off (sequential compression devices) Goal: Optimal Comfort and Wellbeing Outcome: Progressing Intervention: Monitor Pain and Promote Comfort Recent Flowsheet Documentation Taken 05/30/2024927 by Bailey Lloyd RN Pain Management Interventions: medication (see MAR) Taken 05/30/2024825 by Bailey Lloyd RN Pain Management Interventions: medication (see MAR) Goal: Readiness for Transition of Care Outcome: Progressing Problem: Pain Acute Goal: Optimal Pain Control and Function Outcome: Progressing Intervention: Develop Pain Management Plan Recent Flowsheet Documentation Taken 05/30/2024927 by Bailey Lloyd RN Pain Management Interventions: medication (see MAR) Taken 05/30/2024825 by Bailey Lloyd RN Pain Management Interventions: medication (see MAR) Intervention: Prevent or Manage Pain Recent Flowsheet Documentation Taken 05/30/2024825 by Bailey Lloyd RN Medication Review/Management: medications reviewed Problem: Electrolyte Imbalance Goal: Electrolyte Balance Outcome: Progressing 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 Patient is Alert and Oriented x4. They are SBA with no assistive devices . Pt is a Regular diet. They are complaining of 9/10 pain in their knee. Oxycodone and Atarax given for pain. Patient has Normal Saline 0.9% running at 100 mL per hour. Pt c/o knee pain looks little unsteady when ambulating tobathroom with her IV pole. She is refusing assistance and refusing the bed alarm and turn the bed alarm off herself. Problem: Adult Inpatient Plan of Care Goal: Plan of Care Review Description: The Plan of Care Review/Shift note should be completed every shift. The Outcome Evaluation is a brief statement about your assessment that the patient is improving, declining, or no change. This information will be displayed automatically on your shift note. Outcome: Progressing Flowsheets (Taken 05/29/20242147) Plan of Care Reviewed With: patient Overall [...] Manage Fall Risk Recent Flowsheet Documentation Taken 05/29/20242000 by Destiny Miguel RN Safety Promotion/Fall Prevention: clutter free environment maintained safety round/check completed Intervention: Prevent and Manage VTE (Venous Thromboembolism) Risk Recent Flowsheet Documentation Taken 05/29/20242000 by Destiny Miguel RN VTE Prevention/Management: SCDs off (sequential compression devices) Intervention: Prevent Infection Recent Flowsheet Documentation Taken 05/29/20242000 by Destiny Miguel RN Infection Prevention: hand hygiene promoted single patient room provided Goal: Optimal Comfort and Wellbeing Outcome: Progressing Intervention: Monitor Pain and Promote Comfort Recent Flowsheet Documentation Taken 05/29/20242140 by Destiny Miguel consumer electronic retail specialist Interventions: medication (see MAR) Taken 05/29/20242000 by Destiny Miguel consumer electronic retail specialist Interventions: medication (see MAR) cold applied Goal: Readiness for Transition of Care Outcome: Progressing Intervention: Mutually Develop Transition Plan Recent Flowsheet Documentation Taken 05/29/20242003 by Destiny Miguel RN Equipment Currently Used at Home: none Problem: Pain Acute Goal: Optimal Pain Control and Function Outcome: Progressing Intervention: Develop Pain Management Plan Recent Flowsheet Documentation Taken 05/29/20242140 by Destiny Miguel consumer electronic retail specialist Interventions: medication (see MAR) Taken 05/29/20242000 by Destiny Miguel, consumer electronic retail specialist Interventions: medication (see MAR) cold applied Problem: Electrolyte Imbalance Goal: Electrolyte Balance Outcome: Progressing RATING MACHINE OPERATOR * Pharmacy-Admission Medication History - Cale Giron [facility] - 05/29/2024 5:55 PM CST Pharmacist Admission Medication History Admission medication history is complete. The information provided in this note is only as accurateas the sources available at the time of the update. Information Source(s): Patient via in-person Pertinent Information: Changes made to [facility] medication list: Added: None Deleted: None Changed: Spironolactone - from 50mg bid to 50mg qhs Allergies reviewed with patient and updates made in EHR: no Medication History Completed By: Cale Giron Naya 05/29/2024 5:55 PM [facility] Med List Medication Sig Last Dose/Taking albuterol (PROAIR HFA/PROVENTIL HFA/VENTOLIN HFA) 108 (90 Base) MCG/ACT inhaler Inhale 1-2 puffs into the lungs every 4 hours as needed for shortness of breath, wheezing or cough. Taking As Needed ferrous sulfate 325 (65 Fe) MG TBEC EC tablet Take 325 mg by mouth 3 times daily (with meals). Withfood or snack 05/29/2024 Noon gabapentin (NEURONTIN) 100 MG capsule Take 100 mg by mouth at bedtime. with 300 mg capsule 05/28/2024 Bedtime gabapentin (NEURONTIN) 300 MG capsule Take 300 mg by mouth 3 times daily. Am, Lunch, Bed-time 05/29/2024 Noon hydrOXYzine HCl (ATARAX) 25 MG tablet Take 1-2 tablets (25-50 mg) by mouth every 6 hours as needed for other (adjuvant pain). Taking As Needed magnesium oxide (MAG-OX) 400 MG tablet Take 400 mg by mouth 3 times daily (with meals). 05/29/2024 Noon methocarbamol (ROBAXIN) 750 MG tablet Take 750 mg by mouth 4 times daily as needed for muscle spasms. Taking As Needed multivitamin, therapeutic (THERA-VIT) TABS Take 1 tablet by mouth daily 05/29/2024 ondansetron (ZOFRAN) 4 MG tablet Take 4 mg by mouth every 8 hours as needed for nausea or vomiting.Taking As Needed oxyCODONE (ROXICODONE) 5 MG tablet Take 5 mg by mouth every 6 hours as needed for severe pain. 05/27/2024 potassium chloride deanne ER (KLOR-CON M20) 20 MEQ CR tablet Take 40 mEq by mouth 4 times daily. 05/29/2024 Noon senna-docusate (SENOKOT-S/PERICOLACE) 8.6-50 MG tablet Take 1 tablet by mouth 2 times daily as needed for constipation. Taking As Needed spironolactone (ALDACTONE) 50 MG tablet Take 50 mg by mouth at bedtime. 05/28/2024 Bedtime traMADol (ULTRAM) 50 MG tablet Take 50 mg by mouth 2 times daily as needed for severe pain. Taking As Needed RATING MACHINE OPERATOR documented in this encounter Plan of Treatment Upcoming Encounters Date Type Department Care Team (Late st Contact Info) Description 07/09/2024 11:00 AM SEPARATING MACHINE OPERATOR Virtual Visit [facility] [address] [address] [place] [address] [place] [address] [place] [facility] [address] [place], [place] [address] documented as of this encounter Procedures Procedure Name Priority Date/Time Associated Diagnosis Comments PHOSPHORUS Timed 05/31/2024 5:27 PM SEPARATING MACHINE OPERATOR CT KNEE LEFT W/O CONTRAST Routine 05/31/2024 2:33 PM SEPARATING MACHINE OPERATOR PHOSPHORUS Routine 05/31/2024 8:35 AM SEPARATING MACHINE OPERATOR PARATHYROID HORMONE INTACT Routine 05/31/2024 8:35 AM SEPARATING MACHINE OPERATOR MAGNESIUM Routine 05/31/2024 8:35 AM SEPARATING MACHINE OPERATOR COMPREHENSIVE METABOLIC PANEL Routine 05/31/2024 8:35 AM SEPARATING MACHINE OPERATOR AMMONIA Routine 05/31/2024 8:35 AM SEPARATING MACHINE OPERATOR EKG 12-LEAD, TRACING ONLY Routine 05/30/2024 11:41 AM SEPARATING MACHINE OPERATOR POTASSIUM Timed 05/30/2024 10:08 AM SEPARATING MACHINE OPERATOR PHOSPHORUS Routine 05/30/2024 8:02 AM SEPARATING MACHINE OPERATOR MAGNESIUM Routine 05/30/2024 8:02 AM SEPARATING MACHINE OPERATOR BASIC METABOLIC PANEL Timed 05/30/2024 8:02 AM SEPARATING MACHINE OPERATOR CBC WITH PLATELETS Routine 05/30/2024 8: 02 AM SEPARATING MACHINE OPERATOR POTASSIUM Timed 05/30/2024 4:25 AM SEPARATING MACHINE OPERATOR BASIC METABOLIC PANEL Timed 05/29/2024 10:00 PM SEPARATING MACHINE OPERATOR POTASSIUM STAT 05/29/2024 4:50 PM SEPARATING MACHINE OPERATOR PHOSPHORUS Add-On 05/29/2024 4:50 PM SEPARATING MACHINE OPERATOR XR ANKLE LEFT G/E 3 VIEWS STAT 05/29/2024 4:02 PM SEPARATING MACHINE OPERATOR XR KNEE LEFT 3 VIEWS STAT 05/29/2024 4:02 PM SEPARATING MACHINE OPERATOR EXTRA TUBE STAT 05/29/2024 2:41 PM SEPARATING MACHINE OPERATOR EXTRA RED TOP TUBE STAT 05/29/2024 2: 41 PM SEPARATING MACHINE OPERATOR EXTRA BLUE TOP TUBE STAT 05/29/2024 2 :41 PM SEPARATING MACHINE OPERATOR TSH WITH FREE T4 REFLEX STAT 05/29/2024 2:41 PM SEPARATING MACHINE OPERATOR SODIUM RANDOM URINE STAT 05/29/2024 2 :41 PM SEPARATING MACHINE OPERATOR ROUTINE UA WITH MICROSCOPIC STAT 05/29/2024 2:41 PM SEPARATING MACHINE OPERATOR PROTEIN RANDOM URINE STAT 05/29/2024 2:41 PM SEPARATING MACHINE OPERATOR POTASSIUM RANDOM URINE STAT 2:41 PM SEPARATING MACHINE OPERATOR ALBUMIN RANDOM URINE QUANTITATIVE STAT 05/29/2024 2:41 PM SEPARATING MACHINE OPERATOR MAGNESIUM STAT 05/29/2024 2:41 PM SEPARATING MACHINE OPERATOR COMPREHENSIVE METABOLIC PANEL STAT 05/29/2024 2:41 PM SEPARATING MACHINE OPERATOR CHLORIDE RANDOM URINE STAT 05/29/2024 2:41 PM SEPARATING MACHINE OPERATOR BLOOD GAS VENOUS STAT 05/29/2024 2:41 PM SEPARATING MACHINE OPERATOR CBC WITH PLATELETS STAT 05/29/2024 2: 41 PM SEPARATING MACHINE OPERATOR EKG 12-LEAD, TRACING ONLY STAT 05/29/2024 2:10 PM SEPARATING MACHINE OPERATOR documented in this encounter Results * (ABNORMAL) Phosphorus (05/31/2024 5:27 PM SEPARATING MACHINE OPERATOR) Phosphorus 2.2(L) 2.5 - 4.5 mg/dL 05/31/2024 5:51 PM SEPARATING MACHINE OPERATOR [facility] Blood STRUCTURE OF LEFT HAND / Unknown Venipuncture / Unknown 05/31/2024 5:27 PM SEPARATING MACHINE OPERATOR 05/31/2024 5:32 PM SEPARATING MACHINE OPERATOR us Emeterio Solorzano MD LAB - BLOOD ORDER ISHMAEL Final Result [facility] [address] (1st floor, no room number) [place] [address], [facility] * CT Knee Left w/o Contrast (05/31/2024 2:33 PM SEPARATING MACHINE OPERATOR) Anatomical Region Laterality Modality Left Knee, SUBRAD CT MSK, UMP CT MSK, RAD CT Computed Tomography 05/31/2024 2:33 PM SEPARATING MACHINE OPERATOR Impressions 05/31/2024 2:41 PM SEPARATING MACHINE OPERATOR IMPRESSION: 1. No evidence for acute left knee fracture. Normal joint spacing and alignment. 2. Trace joint effusion. Narrative 05/31/2024 2:41 PM SEPARATING MACHINE OPERATOR EXAM: CT KNEE LEFT W/O CONTRAST LOCATION: [facility] DATE: 05/31/2024 INDICATION: syncope with knee [...] EXAM: CT KNEE LEFT W/O CONTRAST LOCATION: [facility] DATE: 05/31/2024 INDICATION: syncope with knee [...] joint spacing andalignment. 2. Trace joint effusion. us Emeterio Solorzano MD IMG CT ORDERABLES Final Result * Parathyroid Hormone Intact (05/31/2024 8:35 AM SEPARATING MACHINE OPERATOR) Parathyroid Hormone Intact 22 15 - 65 pg/mL 05/31/2024 9:08 AM SEPARATING MACHINE OPERATOR LABORATORY Blood STRUCTURE OF LEFT HAND / Unknown Venipuncture / Unknown 05/31/2024 8:35 AM SEPARATING MACHINE OPERATOR 05/31/2024 8:44 AM SEPARATING MACHINE OPERATOR Narrative [facility] - 05/31/2024 9:08 AM SEPARATING MACHINE OPERATOR This result was obtained with the [employer] PTH STAT assay. This reference range differs from PTH assays used in other [employer] laboratories. Sean Freeman MD LAB - BLOOD ORDERABLES Final Result [facility] [address] [employer] Lab (1st floor, no room number) [address] [place] [address] * (ABNORMAL) Phosphorus (05/31/2024 8:35 AM SEPARATING MACHINE OPERATOR) Phosphorus 1.8(L) 2.5 - 4.5 mg/dL 05/31/2024 9:07 AM SEPARATING MACHINE OPERATOR LABORATORY Blood STRUCTURE OF LEFT HAND / Unknown Venipuncture / Unknown 05/31/2024 8:35 AM SEPARATING MACHINE OPERATOR 05/31/2024 8:44 AM SEPARATING MACHINE OPERATOR Sean Freeman MD LAB - BLOOD ORDERABLES Final Result [facility] [address] Lab (1st floor, no room number) [place] [phone] * Magnesium (05/31/2024 8:35 AM SEPARATING MACHINE OPERATOR) Magnesium 1.9 1.7 - 2.3 mg/dL 05/31/2024 9:07 AM SEPARATING MACHINE OPERATOR LABORATORY Blood STRUCTURE OF LEFT HAND / Unknown Venipuncture / Unknown 05/31/2024 8:35 AM SEPARATING MACHINE OPERATOR 05/31/2024 8:44 AM SEPARATING MACHINE OPERATOR us Sean Freeman MD LAB - BLOOD ORDERABLES Final Result LABORATORY [facility] [address] Lab (1st floor, no room number) [place] [address], [facility] * (ABNORMAL) Comprehensive metabolic panel (05/31/2024 8:35 AM SEPARATING MACHINE OPERATOR) Sodium 141 135 - 145 mmol/L 05/31/2024 9:07 AM [facility] Potassium 4.2 3.4 - 5.3 mmol/L 05/31/2024 9:07 AM [facility] Carbon Dioxide (CO2) 35(H) 22 - 29 mmol/L 05/31/2024 9:07 AM [facility] Anion Gap 10 7 - 15 mmol/L 05/31/2024 9:07 AM [facility] Urea Nitrogen 31.3(H) 6.0 - 20.0 mg/dL 05/31/2024 9:07 AM [facility] Creatinine 1.99(H) 0.51 - 0.95 mg/dL 05/31/2024 9:07 AM [facility] GFR Estimate 33(L) >60 mL/min/1.7 3m2 05/31/2024 9:07 AM [facility] Comment:eGFR calculated usid 2020 CKD-EPI equation. Calcium 10.2 8.8 - 10.4 mg/dL 05/31/2024 9:07 AM [facility] Comment:Reference intervals for this test were updated on 01/08/2024 to reflect our healthy population more accurately. There may be differences in the flagging of prior results with similar values performed with this method. Those prior results can be interpreted in the context of the updated reference intervals. Chloride 96(L) 98 - 107 mmol/L 05/31/2024 9:07 AM [facility] Glucose 126(H) 70 - 99 mg/dL 05/31/2024 9:07 AM [facility] Alkaline Phosphatase 75 40 - 150 U/L 05/31/2024 9:07 AM [facility] AST 22 0 - 45 U/L 05/31/2024 9:07 AM [facility] ALT 12 0 - 50 U/L 05/31/2024 9:07 AM SEPARATING MACHINE OPERATOR [facility] Protein Total 6.8 6.4 - 8.3 g/dL 05/31/2024 9:07 AM SEPARATING MACHINE OPERATOR [facility] Albumin 4.1 3.5 - 5.2 g/dL 05/31/2024 9:07 AM SEPARATING MACHINE OPERATOR [facility] Bilirubin Total <0.2 <=1.2 mg/dL 05/31/2024 9:07 AM SEPARATING MACHINE OPERATOR [facility] Blood STRUCTURE OF LEFT HAND / Unknown Venipuncture / Unknown 05/31/2024 8:35 AM SEPARATING MACHINE OPERATOR 05/31/2024 8:44 AM SEPARATING MACHINE OPERATOR Sean Freeman MD LAB - BLOOD ORDERABLES Final Result [facility] [address] [employer] Lab (1st floor, no room number) [address] * Ammonia (05/31/2024 8:35 AM SEPARATING MACHINE OPERATOR) Ammonia 20 11 - 51 umol/L 05/31/2024 9:04 AM SEPARATING MACHINE OPERATOR LABORATORY Blood STRUCTURE OF LEFT HAND / Unknown Venipuncture / Unknown 05/31/2024 8:35 AM SEPARATING MACHINE OPERATOR 05/31/2024 8:44 AM SEPARATING MACHINE OPERATOR Sean Freeman MD LAB - BLOOD ORDERABLES Final Result [facility] [address] Lab (1st floor, no room number) [address] * EKG 12-lead, tracing only (05/30/2024 11:41 AM SEPARATING MACHINE OPERATOR) Systolic Blood Pressure mmHg RADIOLOGY RESULTS Diastolic Blood Pressure mmHg RADIOLOGY RESULTS Ventricular Rate 84 BPM RAD IOLOGY RESULTS Atrial Rate 84 BPM RADIOLOG Y RESULTS [place] Interval 128 ms RADIOLOG Y RESULTS QRS Duration 88 ms RADIOLO GY RESULTS QT 416 ms RADIOLOGY RESULTS QTc 491 ms RADIOLOGY RESULTS P [place] 61 degrees RADIOLOGY RESULTS R AXIS 79 degrees RADIOLOGY RESULTS T [place] 61 degrees RADIOLOGY RESULTS Interpretation ECG Sinus rhythm Non-specific ST/T abnormalities Prolonged QT Abnormal ECG Compared to prior: There have been no significant changes Confirmed by Michel Mendez ([id number]) on 06/02/2024 3:11:35 PM RADIOLOGY RESULTS 05/30/2024 11:4 1 AM SEPARATING MACHINE OPERATOR 06/02/2024 3:11 PM SEPARATING MACHINE OPERATOR us Azar Umanzor MD ECG ORDERABLES Edited Result - Final RADIOLOGY RESULTS * Potassium (05/30/2024 10:08 AM SEPARATING MACHINE OPERATOR) Potassium 3.8 3.4 - 5.3 mmol/L 05/30/2024 10:43 AM SEPARATING MACHINE OPERATOR LABORATORY Blood STRUCTURE OF LEFT HAND / Unknown Venipuncture / Unknown 05/30/2024 10:08 AM SEPARATING MACHINE OPERATOR 05/30/2024 10:15 AM SEPARATING MACHINE OPERATOR us Azar Umanzor MD LAB - BLOOD ORDERABLES Final Res ult Performing Organization Address [facility] Co de Phone Number [facility] [address] Lab (1st floor, no room number) [address] * Phosphorus (05/30/2024 8:02 AM SEPARATING MACHINE OPERATOR) Phosphorus 2.9 2.5 - 4.5 mg/dL 05/30/2024 8:30 AM SEPARATING MACHINE OPERATOR LABORATORY Blood STRUCTURE OF LEFT HAND / Unknown Venipuncture / Unknown 05/30/2024 8:02 AM SEPARATING MACHINE OPERATOR 05/30/2024 8:10 AM SEPARATING MACHINE OPERATOR us Azar Umanzor MD LAB - BLOOD ORDERABLES Final Res ult Performing Organization Address City/[facility]/ZIP Co de Phone Number [facility] [address] Lab (1st floor, no room number) [address] * Magnesium (05/30/2024 8:02 AM SEPARATING MACHINE OPERATOR) Magnesium 2.2 1.7 - 2.3 mg/dL 05/30/2024 8:30 AM [facility] Blood STRUCTURE OF LEFT HAND / Unknown Venipuncture / Unknown 05/30/2024 8:02 AM SEPARATING MACHINE OPERATOR 05/30/2024 8:10 AM SEPARATING MACHINE OPERATOR Azar Umanzor MD LAB - BLOOD ORDERABLES Final Res ult LABORATORY [facility] [address] Lab (1st floor, no room number) [place] [address] * (ABNORMAL) Basic metabolic panel (05/30/2024 8:02 AM SEPARATING MACHINE OPERATOR) Sodium 139 135 - 145 mmol/L 05/30/2024 8:34 AM [facility] Potassium 3.7 3.4 - 5.3 mmol/L 05/30/2024 8:34 AM [facility] Chloride 90(L) 98 - 107 mmol/L 05/30/2024 8:34 AM [facility] Carbon Dioxide (CO2) 41(H) 22 - 29 mmol/L 05/30/2024 8:34 AM [facility] Anion Gap 8 7 - 15 mmol/L 05/30/2024 8:34 AM [facility] Urea Nitrogen 45.3(H) 6.0 - 20.0 mg/dL 05/30/2024 8:34 AM [facility] Creatinine 2.74(H) 0.51 - 0.95 mg/dL 05/30/2024 8:34 AM [facility] GFR Estimate 23(L) >60 mL/min/1.7 3m2 05/30/2024 8:34 AM [facility] Comment:eGFR calculated usin 2020 CKD-EPI equation. Calcium 10.2 8.8 - 10.4 mg/dL 05/30/2024 8:34 AM [facility] Comment:Reference intervals for this test were updated on 01/08/2024 to reflect our healthy population more accurately. There may be differences in the flagging of prior results with similar values performed with this method. Those prior results can be interpreted in the context of the updated reference intervals. Glucose 90 70 - 99 mg/dL 05/30/2024 8:34 AM SEPARATING MACHINE OPERATOR [facility] Blood STRUCTURE OF LEFT HAND / Unknown Venipuncture / Unknown 05/30/2024 8:02 AM SEPARATING MACHINE OPERATOR 05/30/2024 8:10 AM SEPARATING MACHINE OPERATOR Azar Umanzor MD LAB - BLOOD ORDERABLES Final Res ult [facility] [address] Lab (1st floor, no room number) [place] [address] * (ABNORMAL) CBC with platelets (05/30/2024 8:02 AM SEPARATING MACHINE OPERATOR) WBC Count 7.5 4.0 - 11.0 10e3/uL 05/30/2024 8:12 AM SEPARATING MACHINE OPERATOR [facility] RBC Count 2.91(L) 3.80 - 5.20 10e6/uL 05/30/2024 8:12 AM SEPARATING MACHINE OPERATOR [facility] Hemoglobin 8.0(L) 11.7 - 15.7 g/dL 05/30/2024 8:12 AM SEPARATING MACHINE OPERATOR [facility] Hematocrit 24.0(L) 35.0 - 47.0 % 05/30/2024 8:12 AM SEPARATING MACHINE OPERATOR [facility] MCV 83 78 - 100 fL 05/30/2024 8:12 AM SEPARATING MACHINE OPERATOR [facility] MCH 27.5 26.5 - 33.0 pg 05/30/2024 8:12 AM SEPARATING MACHINE OPERATOR [facility] MCHC 33.3 31.5 - 36.5 g/dL 05/30/2024 8:12 AM SEPARATING MACHINE OPERATOR [facility] RDW 13.8 10.0 - 15.0 % 05/30/2024 8:12 AM SEPARATING MACHINE OPERATOR [facility] Platelet Count 350 150 - 450 10e3/uL 05/30/2024 8:12 AM SEPARATING MACHINE OPERATOR [facility] Blood STRUCTURE OF LEFT HAND / Unknown Venipuncture / Unknown 05/30/2024 8:02 AM SEPARATING MACHINE OPERATOR 05/30/2024 8:10 AM SEPARATING MACHINE OPERATOR Azar Umanzor MD LAB - BLOOD ORDERABLES Final Res ult [facility] [address] Lab (1st floor, no room number) [place] [address] * (ABNORMAL) Potassium (05/30/2024 4:25 AM SEPARATING MACHINE OPERATOR) [facility] Potassium 3.2(L) 3.4 - 5.3 mmol/L 05/30/2024 4:54 AM SEPARATING MACHINE OPERATOR LABORATORY Blood STRUCTURE OF LEFT HAND / Unknown Venipuncture / Unknown 05/30/2024 4:25 AM SEPARATING MACHINE OPERATOR 05/30/2024 4:32 AM SEPARATING MACHINE OPERATOR us Azar Umanzor MD LAB - BLOOD ORDERABLES Final Res ult LABORATORY [facility] [address] [facility], no room number[facility] [place] [phone] * (ABNORMAL) Basic metabolic panel (05/29/2024 10:00 PM SEPARATING MACHINE OPERATOR) Pathologist [facility] Sodium 133(L) 135 - 145 mmol/L 05/29/2024 10:36 PM [facility] Potassium 2.7(L) 3.4 - 5.3 mmol/L 05/29/2024 10:36 PM [facility] Chloride 81(L) 98 - 107 mmol/L 05/29/2024 10:36 PM [facility] Carbon Dioxide (CO2) 39(H) 22 - 29 mmol/L 05/29/2024 10:36 PM [facility] Anion Gap 13 7 - 15 mmol/L 05/29/2024 10:36 PM [facility] Urea Nitrogen 47.6(H) 6.0 - 20.0 mg/dL 05/29/2024 10:36 PM [facility] Creatinine 3.02(H) 0.51 - 0.95 mg/dL 05/29/2024 10:36 PM [facility] GFR Estimate 20(L) >60 mL/min/1.7 3m2 05/29/2024 10:36 PM [facility] Comment:eGFR calculated usin 2020 CKD-EPI equation. Calcium 10.6(H) 8.8 - 10.4 mg/dL 05/29/2024 10:36 PM SEPARATING MACHINE OPERATOR [facility] Comment:Reference intervals for this test were updated on 01/08/2024 to reflect our healthy population more accurately. There may be differences in the flagging of prior results with similar values performed with this method. Those prior results can be interpreted in the context of the updated reference intervals. Glucose 149(H) 70 - 99 mg/dL 05/29/2024 10:36 PM SEPARATING MACHINE OPERATOR [facility] Blood STRUCTURE OF LEFT HAND / Unknown Venipuncture / Unknown 05/29/2024 10:00 PM SEPARATING MACHINE OPERATOR 05/29/2024 10:12 PM SEPARATING MACHINE OPERATOR us Azar Umanzor MD LAB - BLOOD ORDERABLES Final Res ult [facility] [address] [employer] Lab (1st floor, no room number) [address] * Phosphorus (05/29/2024 4:50 PM SEPARATING MACHINE OPERATOR) Phosphorus 3.3 2.5 - 4.5 mg/dL 05/29/2024 6:43 PM SEPARATING MACHINE OPERATOR [facility] Blood STRUCTURE OF LEFT HAND / Unknown Venipuncture / Unknown 05/29/2024 4:50 PM SEPARATING MACHINE OPERATOR 05/29/2024 4:58 PM SEPARATING MACHINE OPERATOR Azar Umanzor MD LAB - BLOOD ORDERABLES Final Res ult [facility] [address] Lab (1st floor, no room number) [address] * (ABNORMAL) Potassium (05/29/2024 4:50 PM SEPARATING MACHINE OPERATOR) Potassium 2.4(LL) 3.4 - 5.3 mmol/L 05/29/2024 5:41 PM SEPARATING MACHINE OPERATOR [facility] Blood STRUCTURE OF LEFT HAND / Unknown Venipuncture / Unknown 05/29/2024 4:50 PM SEPARATING MACHINE OPERATOR 05/29/2024 4:58 PM SEPARATING MACHINE OPERATOR Jamil Carlin MD LAB - BLOOD ORDERABLES Fi nal Result [facility] Lab [address] [facility] Lab (1st floor, no room number) [place] [address] * XR Ankle Left G/E 3 Views (05/29/2024 4:02 PM SEPARATING MACHINE OPERATOR) Anatomical Region Laterality Modality Leg, Ankle, Foot Left Digital Radiogr aphy Impressions 05/29/2024 4:09 PM SEPARATING MACHINE OPERATOR IMPRESSION: No fracture. Intact ankle mortise and distal syndesmosis. HUSEYIN MCKEON MD SYSTEM ID: [id number] Narrative 05/29/2024 4:09 PM SEPARATING MACHINE OPERATOR XR ANKLE LEFT G/E 3 VIEWS 05/29/2024 4:02 PM HISTORY: fall, ankle pain COMPARISON: None. Procedure Note Huseyin Mckeon MD - 05/29/2024 XR ANKLE LEFT G/E 3 VIEWS 05/29/2024 4:02 PM HISTORY: fall, ankle pain COMPARISON: None. IMPRESSION: No fracture. Intact ankle mortise and distal syndesmosis. HUSEYIN MCKEON MD SYSTEM ID: [id number] Jamil Carlin MD IMG DIAGNOSTIC IMAGING OR DERABLES Final Result * XR Knee Left 3 Views (05/29/2024 4:02 PM SEPARATING MACHINE OPERATOR) Anatomical Region Laterality Modality Thigh, Knee, Leg Left Digital Radiogr aphy Impressions 05/29/2024 4:08 PM SEPARATING MACHINE OPERATOR IMPRESSION: No fracture or malalignment. No effusion. Joint spaces are maintained. HUSEYIN MCKEON MD SYSTEM ID: [id number] Narrative 05/29/2024 4:08 PM SEPARATING MACHINE OPERATOR XR KNEE LEFT 3 VIEWS 05/29/2024 4:02 PM HISTORY: fall, knee pain COMPARISON: None. Procedure Note Huseyin Mckeon MD - 05/29/2024 XR KNEE LEFT 3 VIEWS 05/29/2024 4:02 PM HISTORY: fall, knee pain COMPARISON: None. IMPRESSION: No fracture or malalignment. No effusion. Joint spaces are maintained. HUSEYIN MCKEON MD SYSTEM ID: [id number] Jamil Carlin MD IMG DIAGNOSTIC IMAGING OR DERABLES Final Result * Extra Red Top Tube (05/29/2024 2:41 PM SEPARATING MACHINE OPERATOR) Hold Specimen [facility] 05/29/2024 4:16 PM SEPARATING MACHINE OPERATOR LABORATORY Blood BLOOD SPECIMEN / Unknown Venipuncture / Unknown 05/29/2024 2:41 PM SEPARATING MACHINE OPERATOR 05/29/2024 3:08 PM SEPARATING MACHINE OPERATOR Jamil Carlin MD LAB - BLOOD ORDERABLES Fi nal Result [facility] [address] [facility] Lab (1st floor, no room number) [address] * Extra Blue Top Tube (05/29/2024 2:41 PM SEPARATING MACHINE OPERATOR) Hold Specimen [facility] 05/29/2024 4:16 PM SEPARATING MACHINE OPERATOR LABORATORY Blood BLOOD SPECIMEN / Unknown Venipuncture / Unknown 05/29/2024 2:41 PM SEPARATING MACHINE OPERATOR 05/29/2024 3:08 PM SEPARATING MACHINE OPERATOR Jamil Carlin MD LAB - BLOOD ORDERABLES Fi nal Result [facility] [address] Lab (1st floor, no room number) [address] * (ABNORMAL) Albumin Random Urine Quantitative with Creat Ratio (05/29/2024 2:41 PM SEPARATING MACHINE OPERATOR) Creatinine Urine mg/dL 37.8 mg/dL 05/30/2024 4:36 AM SEPARATING MACHINE OPERATOR [facility] Comment:The reference ranges have not been established in urine creatinine. The results should be integrated into the clinical context for interpretation. Albumin Urine mg/L 165.0 mg/L 2023 4:36 AM SEPARATING MACHINE OPERATOR [facility] Comment:The reference ranges have not been established in urine albumin. The results should be integrated into the clinical context for interpretation. Albumin Urine mg/g Cr 436.51(H) 0.00 - 25.00 mg/g Cr 05/30/2024 4:36 AM SEPARATING MACHINE OPERATOR [facility] Comment: Microalbuminuria is defined as [...] control, and institution of therapy with an [id number] (SARANYA) inhibitor (if the patient can tolerate it). Urine URINE SPECIMEN OBTAINED BY CLEAN CATCH PROCEDURE / Unknown Non-blood Collection / Unknown 05/29/2024 2:41 PM SEPARATING MACHINE OPERATOR 05/29/2024 3:18 PM SEPARATING MACHINE OPERATOR Jamil Carlin MD LAB - URINE ORDERABLES Fi nal Result [facility] [address] [facility] [place] [phone] * (ABNORMAL) UA with Microscopic (05/29/2024 2:41 PM SEPARATING MACHINE OPERATOR) Color Urine Light Yellow Colorless, Straw, Light Yellow, Yellow 05/29/2024 3:29 PM SEPARATING MACHINE OPERATOR LABORATORY Appearance Urine Clear Clear 05/29/20 24 3:29 PM SEPARATING MACHINE OPERATOR LABORATORY Glucose Urine Negative Negative mg/dL 05/29/2024 3:29 PM SEPARATING MACHINE OPERATOR [facility] Bilirubin Urine Negative Negative 4 3:29 PM SEPARATING MACHINE OPERATOR [facility] Ketones Urine Negative Negative mg/dL 05/29/2024 3:29 PM SEPARATING MACHINE OPERATOR LABORATORY Specific [place] Urine 1.010 1.003 - 1.035 05/29/2024 3:29 PM SEPARATING MACHINE OPERATOR [facility] Blood Urine Negative Negative 05/29/2024 3:29 PM SEPARATING MACHINE OPERATOR LABORATORY pH Urine 8.0(H) 5.0 - 7.0 05/29/2024 3:29 PM SEPARATING MACHINE OPERATOR LABORATORY Protein Albumin Urine 50(A) Negative mg/dL 05/29/2024 3:29 PM SEPARATING MACHINE OPERATOR LABORATORY Urobilinogen Urine Normal Normal, 2.0 mg/dL 05/29/2024 3:29 PM SEPARATING MACHINE OPERATOR LABORATORY Nitrite Urine Negative Negative 05/29/2024 3:29 PM SEPARATING MACHINE OPERATOR LABORATORY Leukocyte Esterase Urine Negative Negative 05/29/2024 3:29 PM SEPARATING MACHINE OPERATOR LABORATORY Bacteria Urine Few(A) None Seen /HPF 05/29/2024 3:29 PM SEPARATING MACHINE OPERATOR LABORATORY RBC Urine 1 <=2 /HPF 05/29/2024 3:29 PM SEPARATING MACHINE OPERATOR LABORATORY WBC Urine 2 <=5 /HPF 05/29/2024 3:29 PM SEPARATING MACHINE OPERATOR LABORATORY Squamous Epithelials Urine <1 <=1 /HPF 05/29/2024 3:29 PM SEPARATING MACHINE OPERATOR LABORATORY Hyaline Casts Urine 3(H) <=2 /LPF 05/29/2024 3:29 PM SEPARATING MACHINE OPERATOR LABORATORY Urine URINE SPECIMEN OBTAINED BY CLEAN CATCH PROCEDURE / Unknown Non-blood Collection / Unknown 05/29/2024 2:41 PM SEPARATING MACHINE OPERATOR 05/29/2024 3:19 PM SEPARATING MACHINE OPERATOR us Jamil Carlin MD LAB - URINE ORDERABLES Fi nal Result LABORATORY [facility] [address] [facility] Lab (1st floor, no room number) [place] [address], [facility] * (ABNORMAL) Protein random urine (05/29/2024 2:41 PM SEPARATING MACHINE OPERATOR) Total Protein Urine mg/dL 44.4 mg/dL 05/29/2024 3:50 PM SEPARATING MACHINE OPERATOR LABORATORY Comment:The reference ranges have not been established in urine protein. The results should be integrated into the clinical context for interpretation. Total Protein Urine mg/mg Creat 1.14(H) 0.00 - 0.20 mg/mg Cr 05/29/2024 3:50 PM SEPARATING MACHINE OPERATOR LABORATORY Creatinine Urine mg/dL 38.9 mg/dL 05/29/2024 3:50 PM SEPARATING MACHINE OPERATOR LABORATORY Comment:The reference ranges have not been established in urine creatinine. The results should be integrated into the clinical context for interpretation. Urine URINE SPECIMEN OBTAINED BY CLEAN CATCH PROCEDURE / Unknown Non-blood Collection / Unknown 05/29/2024 2:41 PM SEPARATING MACHINE OPERATOR 05/29/2024 3:18 PM SEPARATING MACHINE OPERATOR Jamil Carlin MD LAB - URINE ORDERABLES Fi nal Result [facility] Lab [address] [facility] Lab (1st floor, no room number) [place] [address] * Chloride random urine (05/29/2024 2:41 PM SEPARATING MACHINE OPERATOR) Chloride Urine mmol/L <20 mmol/L 05/30/2024 4:48 AM SEPARATING MACHINE OPERATOR [facility] Comment:The reference ranges have not been established in urine chloride. The results should be integrated into the clinical context for interpretation. Urine URINE SPECIMEN OBTAINED BY CLEAN CATCH PROCEDURE / Unknown Non-blood Collection / Unknown 05/29/2024 2:41 PM SEPARATING MACHINE OPERATOR 05/29/2024 3:18 PM SEPARATING MACHINE OPERATOR Jamil Carlin MD LAB - URINE ORDERABLES Fi nal Result Performing Organization Address [facility] Co de Phone Number [facility]U LABORATORY [facility] [place] [facility] [address] [facility], [address] [phone] * Potassium random urine (05/29/2024 2:41 PM SEPARATING MACHINE OPERATOR) Potassium Urine 44.8 mmol/L 4:36 AM SEPARATING MACHINE OPERATOR [facility] Comment:The reference ranges have not been established in urine potassium. The results should be integrated into the clinical context for interpretation. Urine URINE SPECIMEN OBTAINED BY CLEAN CATCH PROCEDURE / Unknown Non-blood Collection / Unknown 05/29/2024 2:41 PM SEPARATING MACHINE OPERATOR 05/29/2024 3:18 PM SEPARATING MACHINE OPERATOR Jamil Carlin MD LAB - URINE ORDERABLES Fi nal Result [facility] LABORATORY [facility] [place] [facility] Lab [address] [facility], [address] [place] [address] * Sodium random urine (05/29/2024 2:41 PM SEPARATING MACHINE OPERATOR) Sodium Urine mmol/L 44 mmol/L 05/29/2024 3:50 PM SEPARATING MACHINE OPERATOR LABORATORY Comment:The reference ranges have not been established in urine sodium. The results should be integrated into the clinical context for interpretation. Urine URINE SPECIMEN OBTAINED BY CLEAN CATCH PROCEDURE / Unknown Non-blood Collection / Unknown 05/29/2024 2:41 PM SEPARATING MACHINE OPERATOR 05/29/2024 3:18 PM SEPARATING MACHINE OPERATOR Jmail Carlin MD LAB - URINE ORDERABLES Fi nal Result Performing Organization Address [facility]/ZIP Co de Phone Number [facility] [address] [facility] [employer] Lab (1st floor, no room number) [place] [phone] * TSH with free T4 reflex (05/29/2024 2:41 PM SEPARATING MACHINE OPERATOR) TSH 1.95 0.30 - 4.20 uIU/mL 05/29/2024 3:37 PM SEPARATING MACHINE OPERATOR LABORATORY Blood BLOOD SPECIMEN / Unknown Venipuncture / Unknown 05/29/2024 2:41 PM SEPARATING MACHINE OPERATOR 05/29/2024 3:08 PM SEPARATING MACHINE OPERATOR Jamil Carlin MD LAB - BLOOD ORDERABLES Fi nal Result [facility] [address] Lab (1st floor, no room number) [place] [phone] * (ABNORMAL) Magnesium (05/29/2024 2:41 PM SEPARATING MACHINE OPERATOR) Magnesium 2.4(H) 1.7 - 2.3 mg/dL 05/29/2024 3:31 PM SEPARATING MACHINE OPERATOR LABORATORY Blood BLOOD SPECIMEN / Unknown Venipuncture / Unknown 05/29/2024 2:41 PM SEPARATING MACHINE OPERATOR 05/29/2024 3:08 PM SEPARATING MACHINE OPERATOR Jamil Carlin MD LAB - BLOOD ORDERABLES Fi nal Result [facility] LABORATORY [facility] [address] Lab (1st floor, no room number) [place] [address], [facility] * (ABNORMAL) Comprehensive metabolic panel (05/29/2024 2:41 PM SEPARATING MACHINE OPERATOR) [facility] Sodium 130(L) 135 - 145 mmol/L 05/29/2024 4:02 PM [facility] Potassium 3.5 3.4 - 5.3 mmol/L 05/29/2024 4:02 PM [facility] Comment:Specimen slightly he molyzed. The reported potassium value may be falsely elevated. Analysis of a non-hemolyzed specimen (i.e. re-draw) may result in a lower potassium value. Carbon Dioxide (CO2) 49(HH) 22 - 29 mmol/L 05/29/2024 4:02 PM [facility] Anion Gap 12 7 - 15 mmol/L 05/29/2024 4:02 PM [facility] Urea Nitrogen 52.2(H) 6.0 - 20.0 mg/dL 05/29/2024 4:02 PM [facility] Creatinine 3.05(H) 0.51 - 0.95 mg/dL 05/29/2024 4:02 PM [facility] GFR Estimate 20(L) >60 mL/min/1.7 3m2 05/29/2024 4:02 PM [facility] Comment:eGFR calculated usin g 2020 CKD-EPI equation. Calcium 13.8(H) 8.8 - 10.4 mg/dL 05/29/2024 4:02 PM [facility] Comment:Reference intervals for this test were updated on 01/08/2024 to reflect our healthy population more accurately. There may be differences in the flagging of prior results with similar values performed with this method. Those prior results can be interpreted in the context of the updated reference intervals. Chloride 69(L) 98 - 107 mmol/L 05/29/2024 4:02 PM [facility] Glucose 124(H) 70 - 99 mg/dL 05/29/2024 4:02 PM SEPARATING MACHINE OPERATOR LABORATORY Alkaline Phosphatase 88 40 - 150 U/L 05/29/2024 4:02 PM SEPARATING MACHINE OPERATOR LABORATORY AST 37 0 - 45 U/L 05/29/2024 4:02 PM [facility] Comment:Specimen is hemolyze d which can falsely elevate AST. Analysis of a non-hemolyzed specimen may result in a lower value. ALT 12 0 - 50 U/L 05/29/2024 4:02 PM SEPARATING MACHINE OPERATOR LABORATORY Protein Total 8.8(H) 6.4 - 8.3 g/dL 05/29/2024 4:02 PM SEPARATING MACHINE OPERATOR LABORATORY Albumin 5.1 3.5 - 5.2 g/dL 05/29/2024 4:02 PM [facility] Bilirubin Total 0.3 <=1.2 mg/dL 05/29/2024 4:02 PM SEPARATING MACHINE OPERATOR LABORATORY Blood BLOOD SPECIMEN / Unknown Venipuncture / Unknown 05/29/2024 2:41 PM SEPARATING MACHINE OPERATOR 05/29/2024 3:08 PM SEPARATING MACHINE OPERATOR us Jamil Carlin MD LAB - BLOOD ORDERABLES Fi nal Result LABORATORY [facility] [address] [facility] Lab (1st floor, no room number) [place] [address], [facility] * (ABNORMAL) CBC with platelets (05/29/2024 2:41 PM SEPARATING MACHINE OPERATOR) WBC Count 9.0 4.0 - 11.0 10e3/uL 05/29/2024 3:13 PM SEPARATING MACHINE OPERATOR LABORATORY RBC Count 3.96 3.80 - 5.20 10e6/uL 05/29/2024 3:13 PM SEPARATING MACHINE OPERATOR LABORATORY Hemoglobin 10.7(L) 11.7 - 15.7 g/dL 05/29/2024 3:13 PM SEPARATING MACHINE OPERATOR LABORATORY Hematocrit 31.9(L) 35.0 - 47.0 % 05/29/2024 3:13 PM SEPARATING MACHINE OPERATOR LABORATORY MCV 81 78 - 100 fL 05/29/2024 3:13 PM SEPARATING MACHINE OPERATOR LABORATORY MCH 27.0 26.5 - 33.0 pg 05/29/2024 3:13 PM SEPARATING MACHINE OPERATOR [facility] MCHC 33.5 31.5 - 36.5 g/dL 05/29/2024 3:13 PM SEPARATING MACHINE OPERATOR [facility] RDW 13.3 10.0 - 15.0 % 05/29/2024 3:13 PM SEPARATING MACHINE OPERATOR [facility] Platelet Count 575(H) 150 - 450 10e3/uL 05/29/2024 3:13 PM SEPARATING MACHINE OPERATOR [facility] Blood BLOOD SPECIMEN / Unknown Venipuncture / Unknown 05/29/2024 2:41 PM SEPARATING MACHINE OPERATOR 05/29/2024 3:08 PM SEPARATING MACHINE OPERATOR us Jamil Carlin MD LAB - BLOOD ORDERABLES Fi nal Result [facility] LABORATORY [facility] [address] [facility] [address] [facility] Lab (1st floor, no room number) [place] [address], [facility] * (ABNORMAL) Blood gas venous (05/29/2024 2:41 PM SEPARATING MACHINE OPERATOR) pH Venous 7.56(H) 7.32 - 7.43 05/29/2024 3:27 PM SEPARATING MACHINE OPERATOR [facility] pCO2 Venous 71(H) 40 - 50 mm Hg 05/29/2024 3:27 PM SEPARATING MACHINE OPERATOR [facility] pO2 Venous 38 25 - 47 mm Hg 05/29/2024 3:27 PM SEPARATING MACHINE OPERATOR [facility] Bicarbonate Venous >45(HH) 21 - 28 mmol/L 05/29/2024 3:27 PM SEPARATING MACHINE OPERATOR [facility] Base Excess/Deficit Venous 05/29/2024 3:27 PM SEPARATING MACHINE OPERATOR [facility] Comment:hide FIO2 21 RUKHSANA 05/29/2024 3:27 PM SEPARATING MACHINE OPERATOR [facility] Oxyhemoglobin Venous 67(L) 70 - 75 % 05/29/2024 3:27 PM SEPARATING MACHINE OPERATOR [facility] O2 Sat, Venous 67.1(L) 70.0 - 75.0 % 05/29/2024 3:27 PM SEPARATING MACHINE OPERATOR [facility] Blood, venous BLOOD SPECIMEN / Unknown Venipuncture / Unknown 05/29/2024 2:41 PM SEPARATING MACHINE OPERATOR 05/29/2024 3:08 PM SEPARATING MACHINE OPERATOR Narrative [facility] LAB[facility]ATORY - 05/29/2024 3:27 PM SEPARATING MACHINE OPERATOR In healthy individuals, oxyhemoglobin (O2Hb) and oxygen saturation (SO2) are approximately equal. In the presence of dyshemoglobins, oxyhemoglobin can be considerably lower than oxygen saturation. us Jamil Carlin MD LAB - BLOOD ORDERABLES Fi nal Result Performing Organization Address [facility]/ZIP Co de Phone Number LABORATORY [facility] [address] Lab (1st floor, no room number) [place] [phone] * EKG 12 lead (05/29/2024 2:10 PM SEPARATING MACHINE OPERATOR) Systolic Blood Pressure mmHg RADIOLOGY RESULTS Diastolic Blood Pressure mmHg RADIOLOGY RESULTS Ventricular Rate 83 BPM RAD IOLOGY RESULTS Atrial Rate 83 BPM RADIOLOG Y RESULTS [place] Interval 128 ms RADIOLOG Y RESULTS QRS Duration 96 ms RADIOLO GY RESULTS QT 424 ms RADIOLOGY RESULTS QTc 498 ms RADIOLOGY RESULTS P [place] 61 degrees RADIOLOGY RESULTS R AXIS 85 degrees RADIOLOGY RESULTS T [place] 80 degrees RADIOLOGY RESULTS Interpretation ECG Sinus rhythm Nonspecific ST abnormality QTcB >= 480 msec Abnormal ECG When compared with ECG of 15-May-2024 14:12, T wave inversion no longer evident in Inferior leads T wave inversion no longer evident in Anterior leads Confirmed by - EMERGENCY ROOM, PHYSICIAN ([id number]), order editor LUPE VILLAGOMEZ ([id number]) on 05/29/2024 3:24:01 PM RADIOLOGY RESULTS 05/29/2024 2:10 PM SEPARATING MACHINE OPERATOR 05/29/2024 3:24 PM SEPARATING MACHINE OPERATOR us Jamil Carlin MD ECG ORDERABLES Edited Re sult - Final Performing Organization Address [facility] Co de Phone Number RADIOLOGY RESULTS documented in this encounter Visit Diagnoses Diagnosis Hypokalemia Hypopotassemia BARBARA (acute kidney injury) Acute kidney failure, unspecified Hypercalcemia 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 $Given 05/29/2024 3:49 PM SEPARATING MACHINE OPERATOR 975 mg acetaminophen (TYLENOL) tablet 975 mg 975 mg, Oral, EVERY 8 HOURS, First dose (after last reorder) on Sun05/30/24 at 1200, Maximum acetaminophen dose from all sources = 75 mg/kg/day not to exceed 4 grams/day. $Given 05/31/2024 12:20 PM SEPARATING MACHINE OPERATOR 975 mg $Given 05/31/2024 4:18 AM SEPARATING MACHINE OPERATOR 975 mg $Given 05/30/2024 7:41 PM SEPARATING MACHINE OPERATOR 975 mg cetirizine (zyrTEC) tablet 10 mg 10 mg, Oral, AT BEDTIME, First dose on Sun05/30/24 at 2200, Does not prolong QT-c, indication inflammatory pain $Given 05/30/2024 10:15 PM SEPARATING MACHINE OPERATOR 10 mg dextrose 5% and 0.9% NaCl + KCL 20 mEq/L infusion at 125 mL/hr, Intravenous, CONTINUOUS, Starting on Sun05/30/24 at 1300, Until 05/31/24 at 1958 $New Bag 05/31/2024 4:01 PM SEPARATING MACHINE OPERATOR 125 mL/hr $New Bag 05/31/2024 3:32 AM SEPARATING MACHINE OPERATOR 125 mL/hr Rate/Dose Verify 05/30/2024 7:42 PM SEPARATING MACHINE OPERATOR 125 mL/ hr diclofenac (VOLTAREN) 1 % topical gel 2 g 2 g, Topical, 3 TIMES DAILY PRN, inflammatory pain, Starting on Sun05/30/24 at 1133, Apply to left knee. Use supplied dosing card to measure dose. gabapentin (NEURONTIN) capsule 100 mg 100 mg, Oral, 2 TIMES DAILY, First dose on Sun05/30/24 at 1200, Take with am and afternoon dose hold for sedation, not intended for discharge $Given 05/31/2024 12:20 PM SEPARATING MACHINE OPERATOR 100 mg $Given 05/31/2024 8:26 AM SEPARATING MACHINE OPERATOR 100 mg $Given 05/30/2024 12:32 PM SEPARATING MACHINE OPERATOR 100 mg gabapentin (NEURONTIN) capsule 300 mg 300 mg, Oral, 2 TIMES DAILY, First dose on Sun05/30/24 at 0800, hold for sedation, $Given 05/31/2024 12:19 PM SEPARATING MACHINE OPERATOR 300 mg $Given 05/31/2024 8:25 AM SEPARATING MACHINE OPERATOR 300 mg $Given 05/30/2024 12:32 PM SEPARATING MACHINE OPERATOR 300 mg gabapentin (NEURONTIN) capsule 400 mg 400 mg, Oral, AT BEDTIME, First dose on Emiliana 05/29/24 at 2200, hold for sedation $Given 05/30/2024 10:14 PM SEPARATING MACHINE OPERATOR 400 mg $Given 05/29/2024 10:16 PM SEPARATING MACHINE OPERATOR 400 mg HYDROmorphone (PF) (DILAUDID) injection 0.3 mg 0.3 mg, Intravenous, ONCE, On Sun05/30/24 at 1130, For 1 dose $Given 05/30/2024 11:52 AM SEPARATING MACHINE OPERATOR 0.3 mg HYDROmorphone (PF) (DILAUDID) injection 0.5 mg 0.5 mg, Intravenous, EVERY 15 MIN PRN, severe pain, Starting on Emiliana 05/29/24 at 1717, For 3 doses $Given 05/29/2024 5:46 PM SEPARATING MACHINE OPERATOR 0.5 mg hydrOXYzine HCl (ATARAX) tablet 25 mg 25 mg, Oral, EVERY 6 HOURS PRN, other, adjuvant pain, Starting on 05/31/24 at 1110, Start with 25 mg for the initial dose. If the 25 mg dose is ineffective, increase to the 50 mg dose at the next administration time and maintain further doses at 50 mg. If the 50 mg dose is ineffective, contact the provider. hydrOXYzine HCl (ATARAX) tablet 25-50 mg 25-50 mg, Oral, EVERY 6 HOURS PRN, other, adjuvant pain, Starting on Emiliana 05/29/24 at 1848 $Given 05/30/2024 8:26 AM SEPARATING MACHINE OPERATOR 50 mg $Given 05/29/2024 8:01 PM SEPARATING MACHINE OPERATOR 50 mg hydrOXYzine HCl (ATARAX) tablet 50 mg 50 mg, Oral, EVERY 6 HOURS PRN, other, adjuvant pain, Starting on 05/31/24 at 1110, Start with 25 mg for the initial dose. If the 25 mg dose is ineffective, increase to the 50 mg dose at the next administration time and maintain further doses at 50 mg. If the 50 mg dose is ineffective, contact the provider. Lidocaine (LIDOCARE) 4 % Patch 1 patch 1 patch, Transdermal, Administer over 12 Hours, EVERY 24 HOURS 0800, First dose on Sun05/30/24 at 0030, Apply patch(s) to knee. To prevent lidocaine toxicity, patient should be [...] for 96 hours post injection. $Patch/Med Applied 05/30/2024 12:51 AM SEPARATING MACHINE OPERATOR 1 patch Other (see comments) Lidocaine (LIDOCARE) 4 % Patch 1 patch 1 patch, Transdermal, Administer over 12 Hours, EVERY 24 HOURS PRN, neuropathic pain, Starting on Sun05/30/24 at 1200, Apply patch(s) to knee. To prevent lidocaine toxicity, patient should be patch free for 12 hrs daily. Patches may be cut to smaller size prior to removing release liner. Reminder: Remove previous patch before applying new patch. NEVER APPLY HEAT OVER PATCH which increases absorption and may lead to local anesthetic toxicity. Do not apply over area where liposomal bupivacaine was injected for 96 hours post injection. magnesium oxide (MAG-OX) tablet 400 mg 400 mg, Oral, 3 TIMES DAILY WITH MEALS, First dose on Sun05/29/24 at 1930 $Given 05/31/2024 12:20 PM SEPARATING MACHINE OPERATOR 400 mg $Given 05/31/2024 8:26 AM SEPARATING MACHINE OPERATOR 400 mg $Given 05/30/2024 6:48 PM SEPARATING MACHINE OPERATOR 400 mg magnesium oxide (MAG-OX) tablet 400 mg 400 mg, Oral, 2 TIMES DAILY, First dose (after last modification) on Sun05/31/24 at 2100 methocarbamol (ROBAXIN) tablet 750 mg 750 mg, Oral, 4 TIMES DAILY PRN, muscle spasms, Starting on Sun05/29/24 at 1848 $Given 05/30/2024 9:56 AM SEPARATING MACHINE OPERATOR 750 mg methocarbamol (ROBAXIN) tablet 750 mg 750 mg, Oral, 3 TIMES DAILY PRN, muscle spasms, Starting on Sun05/30/24 at 1148 $Given 05/30/2024 8:47 PM SEPARATING MACHINE OPERATOR 750 mg naloxone (NARCAN) injection 0.2 mg 0.2 mg, Intravenous, EVERY 2 MIN PRN, opioid reversal, Starting on Sun05/29/24 at 1917, Administer intravenous route when available and notify [...] MIN PRN, opioid reversal, Starting on Emiliana 05/29/24 at 1917, Administer intramuscular if an intravenous route is [...] MIN PRN, opioid reversal, Starting on Emiliana 05/29/24 at 1917, Administer intravenous route when available and notify [...] MIN PRN, opioid reversal, Starting on Emiliana 05/29/24 at 1917, Administer intramuscular if an intravenous route is [...] after 4 naloxone doses. oxyCODONE (ROXICODONE) tablet 10 mg 10 mg, Oral, ONCE, On Emiliana 05/29/24 at 1535, For 1 dose $Given 05/29/2024 3:49 PM SEPARATING MACHINE OPERATOR 10 mg oxyCODONE (ROXICODONE) tablet 5-10 mg 5-10 mg, Oral, EVERY 6 HOURS PRN, severe pain, Starting on Emiliana 05/29/24 at 1848 $Given 05/30/2024 9:28 AM SEPARATING MACHINE OPERATOR 10 mg $Given 05/30/2024 3:46 AM SEPARATING MACHINE OPERATOR 10 mg $Given 05/29/2024 9:43 PM SEPARATING MACHINE OPERATOR 10 mg oxyCODONE IR (ROXICODONE) half-tab 2.5 mg 2.5 mg, Oral, EVERY 6 HOURS PRN, severe pain, Starting on Sun05/31/24 at 0900, For 2 doses $Given 05/31/2024 4:47 PM SEPARATING MACHINE OPERATOR 2.5 mg oxyCODONE IR (ROXICODONE) half-tab 7.5 mg 7.5 mg, Oral, EVERY 6 HOURS PRN, severe pain, Starting on Sun05/30/24 at 1130, For 4 doses $Given 05/31/2024 10:24 AM SEPARATING MACHINE OPERATOR 7.5 mg $Given 05/31/2024 4:18 AM SEPARATING MACHINE OPERATOR 7.5 mg $Given 05/30/2024 10:15 PM SEPARATING MACHINE OPERATOR 7.5 mg potassium chloride (KLOR-CON) Packet 40 mEq 40 mEq, Oral, ONCE, On [facility] 05/29/24 at 1745, For 1 dose, Dissolve packet contents in 4-8 ounces of cold water or juice. $Given 05/29/2024 6:14 PM SEPARATING MACHINE OPERATOR 40 mEq potassium chloride 10 mEq in 100 mL sterile water infusion 10 mEq, Intravenous, Administer over 60 Minutes, at 100 mL/hr, ONCE, On Emiliana 05/29/24 at 1745, For 1 dose $New Bag 05/29/2024 6:10 PM SEPARATING MACHINE OPERATOR 10 mEq 100 mL/hr potassium chloride deanne ER (KLOR-CON M20) CR tablet 20 mEq 20 mEq, Oral, ONCE, On Sun05/30/24 at 0530, For 1 dose, Potassium level 3.1 - 3.4 mmol/L Ordered from the Potassium replacement order set. DO NOT CRUSH, Potassium Replacement: Potassium level 3.1-3.4 mmol/L, Recheck: Potassium level 4 hours AFTER last oral dose $Given 05/30/2024 5:24 AM SEPARATING MACHINE OPERATOR 20 mEq potassium chloride deanne ER (KLOR-CON M20) CR tablet 40 mEq 40 mEq, Oral, 4 TIMES DAILY, First dose on Emiliana 05/29/24 at 2000, DO NOT CRUSH $Given 05/31/2024 12:20 PM SEPARATING MACHINE OPERATOR 40 mEq $Given 05/31/2024 8:25 AM SEPARATING MACHINE OPERATOR 40 mEq $Given 05/30/2024 7:41 PM SEPARATING MACHINE OPERATOR 40 mEq potassium chloride deanne ER (KLOR-CON M20) CR tablet 40 mEq 40 mEq, Oral, ONCE, On Emiliana 05/29/24 at 2330, For 1 dose, Potassium level 2.7 - 3 mmol/L Ordered from the Potassium replacement order set. DO NOT CRUSH, Potassium Replacement: Potassium level 2.7-3 mmol/L, Recheck: Potassium level 4 hours AFTER last oral dose $Given 05/29/2024 11:05 PM SEPARATING MACHINE OPERATOR 40 mEq potassium chloride deanne ER (KLOR-CON M20) CR tablet 40 mEq 40 mEq, Oral, 2 TIMES DAILY, First dose (after last modification) on Sun05/31/24 at 2100, DO NOT CRUSH potassium chloride ER (K-TAB/KLOR-CON) CR tablet 10 mEq 10 mEq, Oral, ONCE, On Sun05/30/24 at 2000, For 1 dose, Potassium level 3.5-3.8 mmol/L Ordered from the Potassium replacement order set. DO NOT CRUSH., Potassium Replacement: Potassium level 3.5-3.8 mmol/L, Recheck: Potassium level next AM $Given 05/30/2024 8:47 PM SEPARATING MACHINE OPERATOR 10 mEq senna-docusate (SENOKOT-S/PERICOLACE) 8.6-50 MG per tablet 1 tablet 1 tablet, Oral, 2 TIMES DAILY PRN, constipation, Starting on Emiliana 05/29/24 at 1848, If no bowel movement in 24 hours, [...] TIMES DAILY PRN, constipation, Starting on Emiliana 05/29/24 at 1848, IF more than 1 constipation PRN medication [...] Intracatheter, EVERY 8 HOURS, First dose on Sun05/29/24 at 1850, to lock peripheral IV dormant line $Given 05/31/2024 10:27 AM SEPARATING MACHINE OPERATOR 3 mLs $Given 05/31/2024 3:35 AM SEPARATING MACHINE OPERATOR 3 mLs sodium chloride (PF) 0.9% PF flush 3 mL 3 mL, Intracatheter, EVERY 1 MIN PRN, line flush, other, to ensure patency or to lock dormant line, Starting on Sun05/29/24 at 1848 $Given 05/30/2024 7:4 3 PM SEPARATING MACHINE OPERATOR 3 mLs $Given 05/29/2024 7:34 PM SEPARATING MACHINE OPERATOR 3 mLs sodium chloride 0.9 % infusion at 100 mL/hr, Intravenous, CONTINUOUS, Starting on Sun05/29/24 at 1850, Until Sun05/30/24 at 1254 $New Bag 05/30/2024 5:26 AM SEPARATING MACHINE OPERATOR 100 mL/hr $New Bag 05/29/2024 8:45 PM SEPARATING MACHINE OPERATOR 100 mL/hr sodium chloride 0.9% BOLUS 1,000 mL Intravenous, 1,000 mL, ONCE, at 1,000 mL/hr, Administer over 1 Hours, On Emiliana 05/29/24 at 1620, For 1 dose $New Bag 05/29/2024 4:33 PM SEPARATING MACHINE OPERATOR 1,000 mLs 1000 mL/hr sodium chloride 0.9% BOLUS 1,000 mL Intravenous, 1,000 mL, ONCE, at 1,000 mL/hr, Administer over 1 Hours, On Emiliana 05/29/24 at 1750, For 1 dose $New Bag 05/29/2024 7:32 PM SEPARATING MACHINE OPERATOR 1,000 mLs 1000 mL/hr sodium phosphate 15 mmol in NS 250mL intermittent infusion 15 mmol, Intravenous, ONCE, Administer over 4 Hours, On Sun05/31/24 at 0930, For 1 dose, Phosphorus level 1.1-1.9 mg/dL Recheck phosphorus level 2-4 hours following the end of the infusion. Ordered from the Phosphorus replacement order set. Each mmol of phosphate provides 1.33 mEq of Sodium. Multiply the patient's phosphate dose by 1.33 to determine the amount of sodium in this dose., Phosphorus Replacement: Phosphorus level 1.1-1.9 mg/dL and Creatinine Clearance GREATER than or EQUAL to 30 mL/min, Recheck: Phosphorus level 2-4 hours after end of infusion $New Bag 05/31/2024 10:25 AM SEPARATING MACHINE OPERATOR 15 mmol traMADol (ULTRAM) tablet 50 mg 50 mg, Oral, EVERY 6 HOURS PRN, moderate pain, Starting on Sun05/30/24 at 1129, Limit 200 mg per day $Given 05/31/2024 4:01 PM SEPARATING MACHINE OPERATOR 50 mg $Given 05/31/2024 9:36 AM SEPARATING MACHINE OPERATOR 50 mg $Given 05/31/2024 3:38 AM SEPARATING MACHINE OPERATOR 50 mg documented in this encounter Active and Recently Administered Medications Times are shown in SEPARATING MACHINE OPERATOR. Scheduled Medication Order 05/29/2024 05/30/2024 05/31/2024 acetaminophen (TYLENOL) tablet 975 mg (COMPLETED) 975 mg, Oral, ONCE, On Emiliana 05/29/24 at 1535, For 1 dose, Maximum acetaminophen dose from all sources = 75 mg/kg/day not to exceed 4 grams/day. 1549 ($Given - Provider: Teressa Lentz RN) acetaminophen (TYLENOL) tablet 975 mg 975 mg, Oral, EVERY 8 HOURS, First dose (after last reorder) on Sun05/30/24 at 1200, Maximum acetaminophen dose from all sources = 75 mg/kg/day not to exceed 4 grams/day. 1231 ($Given - Provider: Bailey Lloyd RN)1941 ($Given - Provider: Laura Peralta RN) 0418 ($Given - Provider: Laura Peralta, RN)1220 ($Given - Provider: Bailey Lloyd RN) cetirizine (zyrTEC) tablet 10 mg 10 mg, Oral, AT BEDTIME, First dose on Sun05/30/24 at 2200, Does not prolong QT-c, indication inflammatory pain 2215 ($Given - Provider: Laura Peralta, DEVIN) gabapentin (NEURONTIN) capsule 100 mg 100 mg, Oral, 2 TIMES DAILY, First dose on Sun05/30/24 at 1200, Take with am and afternoon dose hold for sedation, not intended for discharge 1232 ($Given - Provider: Bailey Lloyd RN) 0826 ($Given - Provider: Bailey Lloyd RN)1220 ($Given - Provider: Bailey Lloyd RN) gabapentin (NEURONTIN) capsule 300 mg 300 mg, Oral, 2 TIMES DAILY, First dose on Sun05/30/24 at 0800, hold for sedation, 0826 ($Given - Provider: Bailey Lloyd RN)1232 ($Given - Provider: Bailey Lloyd RN) 0825 ($Given - Provider: Bailey Lloyd RN)1219 ($Given - Provider: Bailey Lloyd RN) gabapentin (NEURONTIN) capsule 400 mg 400 mg, Oral, AT BEDTIME, First dose on Sun05/29/24 at 2200, hold for sedation 2216 ($Given - Provider: Destiny Miguel RN) 2214 ($Given - Provider: Laura Peralta RN) HYDROmorphone (PF) (DILAUDID) injection 0.3 mg (COMPLETED) 0.3 mg, Intravenous, ONCE, On Sun05/30/24 at 1130, For 1 dose 1152 ($Given - Provider: Bailey Lloyd RN) Lidocaine (LIDOCARE) 4 % Patch 1 patch (CANCELED) 1 patch, Transdermal, Administer over 12 Hours, EVERY 24 HOURS 0800, First dose on Sun05/30/24 at 0030, Apply patch(s) to knee. To prevent lidocaine toxicity, patient should be patch free for 12 hrs daily. Patches may be cut to smaller size prior to removing release liner. Reminder: Remove previous patch before applying new patch. NEVER APPLY HEAT OVER PATCH which increases absorption and may lead to local anesthetic toxicity. Do not apply over area where liposomal bupivacaine was injected for 96 hours post injection. 0051 ($Patch/Med Applied - Provider: Destiny Miguel RN) magnesium oxide (MAG-OX) tablet 400 mg (CANCELED) 400 mg, Oral, 3 TIMES DAILY WITH MEALS, First dose on Sun05/29/24 at 1930 2000 ($Given - Provider: Destiny Miguel RN) 08 ($Given - Provider: Bailey Lloyd RN)1153 ($Given - Provider: Bailey Lloyd RN)1848 ($Given - Provider: Bailey Lloyd, RN) 0826 ($Given - Provider: Bailey Lloyd RN)1220 ($Given - Provider: Bailey Lloyd RN) magnesium oxide (MAG-OX) tablet 400 mg 400 mg, Oral, 2 TIMES DAILY, First dose (after last modification) on Sun05/31/24 at 2100 oxyCODONE (ROXICODONE) tablet 10 mg (COMPLETED) 10 mg, Oral, ONCE, On Sun05/29/24 at 1535, For 1 dose 1549 ($Given - Provider: Teressa Lentz RN) potassium chloride (KLOR-CON) Packet 40 mEq (COMPLETED) 40 mEq, Oral, ONCE, On Sun05/29/24 at 1745, For 1 dose, Dissolve packet contents in 4-8 ounces of cold water or juice. 181 ($Given - Provider: Dipak Mendosa RN) potassium chloride 10 mEq in 100 mL sterile water infusion (COMPLETED) 10 mEq, Intravenous, Administer over 60 Minutes, at 100 mL/hr, ONCE, On Sun05/29/24 at 1745, For 1 dose 1810 ($New Bag - Provider: Dipak Mendosa RN) potassium chloride deanne ER (KLOR-CON M20) CR tablet 20 mEq (COMPLETED) 20 mEq, Oral, ONCE, On Sun05/30/24 at 0530, For 1 dose, Potassium level 3.1 - 3.4 mmol/L Ordered from the Potassium replacement order set. DO NOT CRUSH, Potassium Replacement: Potassium level 3.1-3.4 mmol/L, Recheck: Potassium level 4 hours AFTER last oral dose 0524 ($Given - Provider: Destiny Miguel, DEVIN) potassium chloride deanne ER (KLOR-CON M20) CR tablet 40 mEq (CANCELED) 40 mEq, Oral, 4 TIMES DAILY, First dose on Sun05/29/24 at 2000, DO NOT CRUSH 1934 ($Given - Provider: Destiny Miguel RN) 0825 ($Given - Provider: Bailey Lloyd RN)1153 ($Given - Provider: Bailey Lloyd RN)1551 ($Given - Provider: Bailey Lloyd RN)1941 ($Given - Provider: Laura Peralat, RN) 0825 ($Given - Provider: Bailey Lloyd RN)1220 ($Given - Provider: Bailey Lloyd RN) potassium chloride deanne ER (KLOR-CON M20) CR tablet 40 mEq (COMPLETED) 40 mEq, Oral, ONCE, On Emiliana 05/29/24 at 2330, For 1 dose, Potassium level 2.7 - 3 mmol/L Ordered from the Potassium replacement order set. DO NOT CRUSH, Potassium Replacement: Potassium level 2.7-3 mmol/L, Recheck: Potassium level 4 hours AFTER last oral dose 2305 ($Given - Provider: Destiny Miguel RN) potassium chloride deanne ER (KLOR-CON M20) CR tablet 40 mEq 40 mEq, Oral, 2 TIMES DAILY, First dose (after last modification) on Sun05/31/24 at 2100, DO NOT CRUSH potassium chloride ER (K-TAB/KLOR-CON) CR tablet 10 mEq (COMPLETED) 10 mEq, Oral, ONCE, On Sun05/30/24 at 2000, For 1 dose, Potassium level 3.5-3.8 mmol/L Ordered from the Potassium replacement order set. DO NOT CRUSH., Potassium Replacement: Potassium level 3.5-3.8 mmol/L, Recheck: Potassium level next AM 2046 ($Given - Provider: Laura Peralta RN) sodium chloride (PF) 0.9% PF flush 3 mL 3 mL, Intracatheter, EVERY 8 HOURS, First dose on Emiliana 05/29/24 at 1850, to lock peripheral IV dormant line 1936 (Not Given - Provider: Destiny Miguel RN - Reason: Other) 0236 (Not Given - Provider: Destiny Miguel RN - Reason: IV Infusing)1000 (Not Given - Provider: Bailey Lloyd RN - Reason: IV Infusing)1815 (Not Given - Provider: Bailey Lloyd RN - Reason: IV Infusing) 0335 ($Given - Provider: Laura Peralta RN)1027 ($Given - Provider: Bailey Lloyd RN)1850 (Canceled Entry - Provider: Orders Generic Provider - Comment: Automatically canceled at discontinue of medication order) sodium chloride 0.9% BOLUS 1,000 mL (COMPLETED) Intravenous, 1,000 mL, ONCE, at 1,000 mL/hr, Administer over 1 Hours, On Emiliana 05/29/24 at 1620, For 1 dose 1633 ($New Bag - Provider: Teressa Lentz, RN) sodium chloride 0.9% BOLUS 1,000 mL (COMPLETED) Intravenous, 1,000 mL, ONCE, at 1,000 mL/hr, Administer over 1 Hours, On Emiliana 05/29/24 at 1750, For 1 dose 1932 ($New Bag - Provider: Destiny Miguel, RN) sodium phosphate 15 mmol in NS 250mL intermittent infusion (COMPLETED) 15 mmol, Intravenous, ONCE, Administer over 4 Hours, On 05/31/24 at 0930, For 1 dose, Phosphorus level 1.1-1.9 mg/dL Recheck phosphorus level 2-4 hours following the end of the infusion. Ordered from the Phosphorus replacement order set. Each mmol of phosphate provides 1.33 mEq of Sodium. Multiply the patient's phosphate dose by 1.33 to determine the amount of sodium in this dose., Phosphorus Replacement: Phosphorus level 1.1-1.9 mg/dL and Creatinine Clearance GREATER than or EQUAL to 30 mL/min, Recheck: Phosphorus level 2-4 hours after end of infusion 1025 ($New Bag - Provider: Bailey Lloyd RN) Continuous Medication Order 05/29/2024 05/30/2024 05/31/2024 dextrose 5% and 0.9% NaCl + KCL 20 mEq/L infusion at 125 mL/hr, Intravenous, CONTINUOUS, Starting on Sun05/30/24 at 1300, Until 05/31/24 at 1958 1349 ($New Bag - Provider: Bailey Lloyd, RN)1942 (Rate/Dose Verify - Provider: Laura Peralta, RN) 0332 ($New Bag - Provider: Laura Peralta, RN)1601 ($New Bag - Provider: Bailey Lloyd RN) sodium chloride 0.9 % infusion (CANCELED) at 100 mL/hr, Intravenous, CONTINUOUS, Starting on Emiliana 05/29/24 at 1850, Until Sun05/30/24 at 1254 2045 ($New Bag - Provider: Destiny Miguel, DEVIN) 0526 ($New Bag - Provider: Destiny Miguel RN) PRN Medication Order 05/29/2024 05/30/2024 05/31/2024 acetaminophen (TYLENOL) tablet 650 mg 650 mg, Oral, EVERY 4 HOURS PRN, mild pain, other, and adjunct with moderate or severe pain or per patient request, Starting on Emiliana 05/29/24 at 1848, Alternate with ibuprofen if ordered. Maximum acetaminophen dose from all sources = 75 mg/kg/day not to exceed 4 grams/day. calcium carbonate (TUMS) chewable tablet 1,000 mg 1,000 mg, Oral, 4 TIMES DAILY PRN, heartburn, Starting on Emiliana 05/29/24 at 1848 diclofenac (VOLTAREN) 1 % topical gel 2 g 2 g, Topical, 3 TIMES DAILY PRN, inflammatory pain, Starting on Sun05/30/24 at 1133, Apply to left knee. Use supplied dosing card to measure dose. HYDROmorphone (PF) (DILAUDID) injection 0.5 mg (CANCELED) 0.5 mg, Intravenous, EVERY 15 MIN PRN, severe pain, Starting on Emiliana 05/29/24 at 1717, For 3 doses 1746 ($Given - Provider: Sarah Zavala RN) hydrOXYzine HCl (ATARAX) tablet 25 mg(Linked Group 1) 25 mg, Oral, EVERY 6 HOURS PRN, other, adjuvant pain, Starting on 05/31/24 at 1110, Start with 25 mg for the initial dose. If the 25 mg dose is ineffective, increase to the 50 mg dose at the next administration time and maintain further doses at 50 mg. If the 50 mg dose is ineffective, contact the provider. hydrOXYzine HCl (ATARAX) tablet 25-50 mg (CANCELED) 25-50 mg, Oral, EVERY 6 HOURS PRN, other, adjuvant pain, Starting on Emiliana 05/29/24 at 1848 2000 ($Given - Provider: Destiny Miguel RN) 0826 ($Given - Provider: Bailey Lloyd RN) hydrOXYzine HCl (ATARAX) tablet 50 mg(Linked Group 1) 50 mg, Oral, EVERY 6 HOURS PRN, other, adjuvant pain, Starting on 05/31/24 at 1110, Start with 25 mg for the initial dose. If the 25 mg dose is ineffective, increase to the 50 mg dose at the next administration time and maintain further doses at 50 mg. If the 50 mg dose is ineffective, contact the provider. Lidocaine (LIDOCARE) 4 % Patch 1 patch 1 patch, Transdermal, Administer over 12 Hours, EVERY 24 HOURS PRN, neuropathic pain, Starting on Sun05/30/24 at 1200, Apply patch(s) to knee. To prevent lidocaine toxicity, patient should be patch free for 12 hrs daily. Patches may be cut to smaller size prior to removing release liner. Reminder: Remove previous patch before applying new patch. NEVER APPLY HEAT OVER PATCH which increases absorption and may lead to local anesthetic toxicity. Do not apply over area where liposomal bupivacaine was injected for 96 hours post injection. 1153 (Patch/Med Removed - Provider: Bailey Lloyd RN - Comment: Time moved from discontinued order due to modification) lidocaine (LMX4) cream Topical, EVERY 1 HOUR PRN, pain, with VAD insertion, Starting on Sun05/29/24 at 1848, Apply at least 30 minutes prior to VAD insertion in divided doses as needed for size of site for insertion. MAX Dose: 2.5 g ( of 5 g tube) Do NOT give if patient has a history of allergy to any local anesthetic or any mark product. Do NOT use both lidocaine intradermal/subcutaneou s injection and the lidocaine cream on the same site. lidocaine 1 % 0.1-1 mL 0.1-1 mL, Other, EVERY 1 HOUR PRN, mild pain with VAD insertion, Starting on Sun05/29/24 at 1848, MAX dose 1 mL subcutaneous OR intradermal along the side of the vein in divided doses as needed for VAD insertion. Do NOT give if patient has a history of allergy to any local anesthetic or any mark product. Do NOT use both lidocaine intradermal/subcutaneou s injection and the lidocaine cream on the same site. methocarbamol (ROBAXIN) tablet 750 mg (CANCELED) 750 mg, Oral, 4 TIMES DAILY PRN, muscle spasms, Starting on Sun05/29/24 at 1848 0956 ($Given - Provider: Bailey Lloyd RN) methocarbamol (ROBAXIN) tablet 750 mg 750 mg, Oral, 3 TIMES DAILY PRN, muscle spasms, Starting on Sun05/30/24 at 1148 2047 ($Given - Provider: Laura Peralta, RN) 1323 (Return to Cabinet - Provider: Bailey Lloyd RN) naloxone (NARCAN) injection 0.2 mg(Linked Group 2) 0.2 mg, Intravenous, EVERY 2 MIN PRN, opioid reversal, Starting on Emiliana 05/29/24 at 1917, Administer intravenous route when available and notify [...] MIN PRN, opioid reversal, Starting on Emiliana 05/29/24 at 1917, Administer intramuscular if an intravenous route is [...] MIN PRN, opioid reversal, Starting on Emiliana 05/29/24 at 1917, Administer intravenous route when available and notify [...] MIN PRN, opioid reversal, Starting on Emiliana 05/29/24 at 1917, Administer intramuscular if an intravenous route is [...] after 4 naloxone doses. oxyCODONE (ROXICODONE) tablet 5-10 mg (CANCELED) 5-10 mg, Oral, EVERY 6 HOURS PRN, severe pain, Starting on Emiliana 05/29/24 at 1848 2143 ($Given - Provider: Destiny Miguel, RN) 0346 ($Given - Provider: Destiny Miguel, RN)0928 ($Given - Provider: Bailey Lloyd RN) oxyCODONE IR (ROXICODONE) half-tab 2.5 mg(Linked Group 3) 2.5 mg, Oral, EVERY 6 HOURS PRN, severe pain, Starting on Sun05/31/24 at 0900, For 2 doses 1647 ($Given - Provider: Bailey Lloyd RN) oxyCODONE IR (ROXICODONE) half-tab 7.5 mg (COMPLETED) 7.5 mg, Oral, EVERY 6 HOURS PRN, severe pain, Starting on Sun05/30/24 at 1130, For 4 doses 1551 ($Given - Provider: Bailey Lloyd RN)2215 ($Given - Provider: Laura Peralta RN) 0418 ($Given - Provider: Laura Peralta RN)1024 ($Given - Provider: Bailey Lloyd RN) senna-docusate (SENOKOT-S/PERICOLACE) 8.6-50 MG per tablet 1 tablet(Linked Group 4) 1 tablet, Oral, 2 TIMES DAILY PRN, constipation, Starting on Emiliana 05/29/24 at 1848, If no bowel movement in 24 hours, [...] TIMES DAILY PRN, constipation, Starting on Emiliana 05/29/24 at 1848, IF more than 1 constipation PRN medication [...] or to lock dormant line, Starting on Emiliana 05/29/24 at 1848 1934 ($Given - Provider: Destiny Miguel, DEVIN) 1943 ($Given - Provider: Laura Peralta RN) traMADol (ULTRAM) tablet 50 mg 50 mg, Oral, EVERY 6 HOURS PRN, moderate pain, Starting on Sun05/30/24 at 1129, Limit 200 mg per day 1459 ($Given - Provider: Bailey Lloyd RN)2047 ($Given - Provider: Laura Peralta RN) 0338 ($Given - Provider: Laura Peralta RN)0936 ($Given - Provider: Bailey Lloyd RN)1601 ($Given - Provider: Bailey Lloyd RN) Linked Groups Order Group 1: hydrOXYzine HCl (ATARAX) tablet 25 mgJump to med 25 mg, Oral, EVERY 6 HOURS PRN, other, adjuvant pain, Starting on 05/31/24 at 1110, Start with 25 mg for the initial dose. If the 25 mg dose is ineffective, increase to the 50 mg dose at the next administration time and maintain further doses at 50 mg. If the 50 mg dose is ineffective, contact the provider. Or hydrOXYzine HCl (ATARAX) tablet 50 mgJump to med 50 mg, Oral, EVERY 6 HOURS PRN, other, adjuvant pain, Starting on 05/31/24 at 1110, Start with 25 mg for the initial dose. If the 25 mg dose is ineffective, increase to the 50 mg dose at the next administration time and maintain further doses at 50 mg. If the 50 mg dose is ineffective, contact the provider. Group 2: naloxone (NARCAN) injection 0.2 mgJump to med 0.2 mg, Intravenous, EVERY 2 MIN PRN, opioid reversal, Starting on [facility] 05/29/24 at 1917, Administer intravenous route when available and notify [...] 2 MIN PRN, opioid reversal, Starting on [facility] 05/29/24 at 1917, Administer intravenous route when available and notify [...] 2 MIN PRN, opioid reversal, Starting on [facility] 05/29/24 at 1917, Administer intramuscular if an intravenous route is [...] MIN PRN, opioid reversal, Starting on Emiliana 05/29/24 at 1917, Administer intramuscular if an intravenous route is [...] improved after 4 naloxone doses. Group 3: oxyCODONE IR (ROXICODONE) half-tab 2.5 mgJump to med 2.5 mg, Oral, EVERY 6 HOURS PRN, severe pain, Starting on [facility] 05/31/24 at 0900, For 2 doses Group 4: senna-docusate (SENOKOT-S/PERICOLACE) 8.6-50 MG per tablet 1 tabletJump to med 1 tablet, Oral, 2 TIMES DAILY PRN, constipation, Starting on Emiliana 05/29/24 at 1848, If no bowel movement in 24 hours, [...] TIMES DAILY PRN, constipation, Starting on Emiliana 05/29/24 at 1848, IF more than 1 constipation PRN medication is ordered, administer step-aguilar as indicated, moving to the next step ONLY if prior step ineffective. Step 1: senna-docusate (SENOKOT-S; PERICOLACE) OR bisacodyl (DULCOLAX) EC tablet Step 2: polyethylene glycol (MIRALAX/GLYCOLAX) Step 3: bisacodyl (DULCOLAX) suppository Step 4: enema Hold for loose stools. documented in this encounter Care Teams Maintenance Helper Utility Engineer Relationship Specialty [place] [address] [place] [address] PCP - General 03/07/24 documented as of this encounter
--- OUTSIDE RECORDS SUMMARY | 2024-07-08 17:33 | XMS_ITS | Encounter Summary ---
[facility] Address [address], [place] [address] Care Team Providers Care All Terrain Vehicle Racer Name Role Phone Leyda SANTOS MD, Mary Torres Primary Care Provider [phone]- [phone] Encounter Details Date Type Department Care Team [...] on filedocumented in this encounter Care Teams All Terrain Vehicle Racer Relationship Specialty Start Date End Date Mary Crabtree III, MD [address] [place] [address] PCP - General Family Practice 03/31/15 documented as of this encounter
--- OUTSIDE RECORDS SUMMARY | 2024-07-08 17:33 | XMS_ITS | Encounter Summary ---
[facility] Address [address] [address] Care Team Providers Care Night Manager Name Role Phone Leyda SANTOS MD, Mary Torres Primary Care Provider [phone]- [phone] Encounter Details Date Type Department Care Team (Late st Contact Info) Description 07/18/2016 Correspondence [facility] Radiology [address] [place] [id number] Radiology, Provider MRI SAFETY SHEET AND COMPATIBILITY [...] on filedocumented in this encounter Care Teams Night Manager Relationship Specialty Start Date End Date Mary Crabtree III, MD [address] [place] [address] PCP - General Family Practice 03/31/15 documented as of this encounter
--- OUTSIDE RECORDS SUMMARY | 2024-07-08 17:33 | XMS_ITS | Encounter Summary ---
Author [facility] Address [address] [address] Care Team Providers Care Jail Manager Name Role Phone Leyda SANTOS MD, Mary Torres Primary Care Provider [phone]- [phone] Encounter Details Date Type Department Care Team (Late st Contact Info) Description 02/14/2016 Consent for Procedure/Treatme nt [facility] Department INFORMED CONSENT RECORD Social [...] on filedocumented in this encounter Care Teams Jail Manager Relationship Specialty Start Date End Date Mary Crabtree III, MD [address] [place] [address] PCP - General Family Practice 03/31/15 documented as of this encounter
--- OUTSIDE RECORDS SUMMARY | 2024-07-08 17:33 | XMS_ITS | Encounter Summary ---
Author [facility] Address [address] [address] Care Team Providers Care Scientific Manager Name Role Phone Leyda SANTOS MD, Mary Torres Primary Care Provider [phone]- [phone] Encounter Details Date Type Department Care Team (Late st Contact Info) Description 02/02/2016 Consent for Procedure/Treatme nt [facility] Department INFORMED CONSENT RECORD Social History [...] on filedocumented in this encounter Care Teams Scientific Manager Relationship Specialty Start Date End Date Mary Crabtree III, MD [address] [place] [address] PCP - General Family Practice 03/31/15 documented as of this encounter
--- OUTSIDE RECORDS SUMMARY | 2024-07-08 17:33 | XMS_ITS | Encounter Summary ---
[facility] Organization [facility] Address [address], [place] [address] Care Team Providers Care Glueline Worker Name Role Phone Leyda SANTOS MD, Mary Torres Primary Care Provider [phone]- [phone] Encounter Details Date Type Department Care Team [...] on filedocumented in this encounter Care Teams Glueline Worker Relationship Specialty Start Date End Date Mary Crabtree III, MD [address] [place] [address] PCP - General Family Practice 03/31/15 documented as of this encounter
--- OUTSIDE RECORDS SUMMARY | 2024-07-08 17:33 | XMS_ITS ---
Author Organization [facility] Address [address] [place] [address] Care Team Providers Care Residential Assistant Name Role Phone Gregg Corrales MD Primary Care Provider Transitional Care Management Status:Closed (Closed) Start date:06/21/2024 Enrollment date:06/24/2024 End date:07/05/2024 Close reason:Goals met Continued Care and Services Coordination
--- OUTSIDE RECORDS SUMMARY | 2024-07-08 17:33 | XMS_ITS | Encounter Summary ---
[facility] Address [address] [place] [address] Care Team Providers Care Scouring Machine Operator Name Role Phone Leyda SANTOS MD, Mary Torres Primary Care Provider [phone]- [phone] Encounter Details Date Type Department Care Team (Late st Contact Info) Description 10/03/2015 Scanned History External to Transferred Record, Provider [facility] Social History Tobacco Use Types Packs/Day Years [...] on filedocumented in this encounter Care Teams Scouring Machine Operator Relationship Specialty Start Date End Date Mary Crabtree III, MD [address] [place] [address] PCP - General Family Practice 03/31/15 documented as of this encounter
--- OUTSIDE RECORDS SUMMARY | 2024-07-08 17:33 | XMS_ITS | Encounter Summary ---
Author Organization [facility] Address [address] [place] [address] Care Team Providers Care Slat Basket Maker Name Role Phone Leyda SANTOS MD, Mary Torres Primary Care Provider [phone]- [phone] Encounter Details Date Type Department Care Team (Late st Contact Info) Description 09/24/2015 Scanned History External to Transferred Record, Provider [facility] Social History Tobacco Use Types Packs/Day [...] on filedocumented in this encounter Care Teams Slat Basket Maker Relationship Specialty Start Date End Date Mary Crabtree III, MD [address] [place] [address] PCP - General Family Practice 03/31/15 documented as of this encounter
--- OUTSIDE RECORDS SUMMARY | 2024-07-08 17:33 | XMS_ITS | Encounter Summary ---
Author Organization [facility] Address [address] [place] [address]. 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 Not on file Not on file documented as of this encounter Plan of Treatment Upcoming Encounters Date Type Department Care Team (Late st Contact Info) Description 07/09/2024 11:00 AM BURR FILER Virtual Visit [facility] [address] [facility] [address] [address] [place] [address] [place], [place] [id number] [place] [facility] [address] [facility] [address] [place] [address] documented as of this encounter Visit Diagnoses Not on filedocumented in this encounter Care Teams Manager Of Training Relationship Specialty [place] [address] [place] [address] PCP - General 03/07/24 documented as of this encounter
--- OUTSIDE RECORDS SUMMARY | 2024-07-08 17:33 | XMS_ITS | Clinical Summary ---
Author Organization [facility] Address [address] [place] [address] Care Team Providers Care Director Dental Services Name Role Phone Elsewhere, Pcp Primary Care Provider Unavailabl e Source Comments Patient records contain information from all sites at [facility]. For routine questions regarding patient records, call [phone] during business hours, M-F 8:00 AM - 5:00 PM Central Time. Record requests for emergency care only can be directed to [phone] at any time.[facility] Allergies Active Allergy Reactions Criticality Noted Date [...] her treatment plan for hypokalemia admissions at [facility] Eros Melendez MD .................... 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 Patient declined 04/07/2021 Do you belong to any clubs o r organizations such as temple groups, unions, fraternal or athletic groups, or [...] medical care, and heating? Somewhat hard 04/07/2021 [facility] of Occupat ional [facility] - Occupational Stress Questionnaire Answer Date Recorded [...] place to sleep or slept in a prison (including now)? 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 Gender Identity Female 04/07/2021 9:53 PM CDT Sexual Orientation Something else 04/07/2021 9: 53 PM CDT Last Filed Vital Signs Vital Sign Reading Time Taken Comments Blood Pressure 103/62 02/13/2024 9:45 PM CDT Pulse 79 02/13/2024 9:45 PM CDT Temperature 36.8 C (98.2 F) 02/13/2024 3:38 PM CDT Respiratory Rate 16 02/13/2024 4:55 PM CDT Oxygen Saturation 100% 02/13/2024 9:45 PM CDT Inhaled Oxygen Concentration - - Weight 48.8 kg (107 lb 9.4 oz) 02/13/2024 1:55 P M CDT Height 180 cm (5' 10.87) 11/06/2021 9:06 PM CDT Body Mass Index 15.06 11/06/2021 9:06 PM CDT Plan of Treatment Health Maintenance Due Date Last Done Comments Cervical/Vaginal Cancer Screening 1991 Depression Monitoring (PHQ-9) 1991 HIV Screening 1991 Hepatitis C Screening 1991 HPV Vaccines (3 - 3-dose series) 08/07/2011 05/15/2011, 04/19/2009 Depression Monitoring (PHQ-9 for quality tracking) 06/25/2023 COVID-19 Vaccine ( season) 2024 Influenza Vaccine (#1) 2024 Creatinine Level (Kidney Function Test) 04/23/2025 04/23/2024, 04/04/2024, 04/03/2024, Additional history exists Potassium Level 04/23/2025 04/23/2024, 03/25, 04/03/2024, Additional history exists Sodium Level 04/23/2025 04/23/2024, 03/25, 04/03/2024, Additional history exists DTaP,Tdap,and Td Vaccines (8 - Td or Tdap) 08/30/2030 08/30/2020, 04/19/2009, 11/16/2003, Additional history exists Hepatitis B Vaccines Completed 04/27/1993, 04/27/1993, 10/18/1992, Additional history exists IPV Vaccines Completed 11/28/1996, 09/24, 1991, Additional history exists Hepatitis A Vaccines Completed 11/15/2009, 11/15/2009, 04/19/2009, Additional history exists Pneumococcal vaccine (0-49 years) Aged Out No longer eligible based on patient's age to complete this topic Procedures Procedure Name Priority Date/Time Associated Diagnosis Comments BASIC METABOLIC PANEL, S/P STAT 02/13/2024 2:30 PM CDT from Last 3 Months or Most Recently Relevant to Health Maintenance Insurance [facility] MEDICARE Advance Directives For more information, please contact: [phone] * Full Code (Latest Code Status on File) Date Activated Date Inactivated Comments 11/06/2021 8:16 PM 11/07/2021 7:19 PM Question Answer Comments Full Code: Discussed * Full Code Date Activated Date Inactivated Comments 09/24/2021 2:12 PM 09/25/2021 7:34 PM Question Answer Comments Full Code: Discussed Care Teams Director Dental Services Relationship Specialty Start Date End Date Elsewhere, Pcp PCP - General Internal Medicine 09/03/19
--- OUTSIDE RECORDS SUMMARY | 2024-07-08 17:33 | XMS_ITS | Encounter Summary ---
Author Organization [facility] Address [address] [place] [address]. [place] [address] Care Team Providers Care Foreign Language Professor Name Role Phone Stephon Corrales MD Primary Care Provider [phone] Gregg Corrales MD Primary Care Provider Encounter Details Date Type Department Care Team (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 Contact Info) Description 07/09/2024 11:00 AM SUPERVISOR PROPELLANT CHARGE LOADING Virtual Visit [facility] [address] [facility] [address] [address] [place] [address] [place] [address] [place], [address] [place] [address] documented as of this encounter Visit Diagnoses Not on filedocumented in this encounter Additional Health Concerns Infection Onset Date Last Indicated Resolved Time Rule Out COVID-19 04/30/2022 04/30/2022 04/30/2022 12:25 PM SUPERVISOR PROPELLANT CHARGE LOADING Rule Out COVID-19 05/16/2022 05/16/2022 05/16/2022 6:08 PM SUPERVISOR PROPELLANT CHARGE LOADING Rule Out C-difficile 05/16/2022 05/17/2022 022 11:51 AM SUPERVISOR PROPELLANT CHARGE LOADING Rule Out COVID-19 07/01/2024 07/01/2024 07/01/2024 12:22 PM SUPERVISOR PROPELLANT CHARGE LOADING documented as of this encounter Care Teams Foreign Language Professor Relationship Specialty Start Date End Date Stephon Corrales MD [facility] [address] [place] [address] PCP - General 02/09/21 03/06/24 [place] [address] [place] [address] PCP - General 03/07/24 documented as of this encounter
--- OUTSIDE RECORDS SUMMARY | 2024-07-08 17:33 | XMS_ITS | Encounter Summary ---
Author Organization [facility] Address [address] [place] [address] Care Team Providers Care Senior Corporate Recruiter Name Role Phone Leyda SANTOS MD, Mary Torres Primary Care Provider [phone] Encounter Details Date Type Department Care Team [...] filedocumented in this encounter Care Teams Senior Corporate Recruiter Relationship Specialty Start Date End Date Mary Crabtree III, MD [address] [place] [address] PCP - General Family Practice 03/31/15 documented as of this encounter
--- OUTSIDE RECORDS SUMMARY | 2024-07-08 17:34 | XMS_ITS | Encounter Summary ---
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 [address] [place] [address] Phone: tel: fax: [facility] Referral ID Status Reason Start Date Expiration Date V isits Requested Visits Authorized [id number] Authorized 04/07/2024 10/07/2025 1 1 Encounter Details Date Type Department Care Team (Late st Contact Info) Description 04/07/2024 Orders Only Department of Medical Genetics in [place], [place] [address] [place] [phone] [facility], ProviderMD Gitelman Syndrome (HCC) Social History Tobacco [...] you attend [facility] or catholic services? Patient declined 04/07/2021 Do you belong to any clubs o r organizations such as confucianist groups, unions, fraternal or athletic groups, or [...] medical care, and heating? Somewhat hard 04/07/2021 [facility] of Occupat ional Health - Occupational Stress [...] place to sleep or slept in a senior care (including now)? No 04/07/2021 Nutrition Answer Date [...] PM CDT Legal Sex Female 9:19 AM BI ANALYST Gender Identity Female 04/07/2021 9:53 PM CDT Sexual Orientation Something else 04/07/2021 9: 53 PM CDT documented as of this encounter Plan of Treatment Scheduled Referrals [...] documented as of this encounter Care Teams Accounts Payable Analyst Relationship Specialty Start Date End Date Elsewhere, Pcp PCP - General Internal Medicine 09/03/19 documented as of this encounter
--- OUTSIDE RECORDS SUMMARY | 2024-07-08 17:34 | XMS_ITS | Encounter Summary ---
Author Organization [facility] Address [address] [place] [address] Care Team Providers Care Pet Feeder Name Role Phone Elsewhere, Pcp Primary Care [...] PM CDT Legal Sex Female 9:19 AM ELECTRICIAN SOUND Gender Identity Female 04/07/2021 9:53 PM CDT [...] / PLAN Consult requested by: Aly Villarreal [id number] #1 RAthke's cleft cyst #2 Visual field report, Normal visual field both eyes. DIAGNOSIS #1 RAthke's cleft cyst #2 Visual field report, Normal visual field both eyes. CD Reports - EYEGEN Id: [id number] Status: Fnl documented in this encounter Plan [...] Pending 08/25/2023 08/25/2023 08/25/2023 1 1:39 AM ELECTRICIAN SOUND Assessment Noted Time PHQ-9 Depression Total Score: 0 05/10/20 07 12:00 PM ELECTRICIAN SOUND documented as of this encounter Care Teams Pet Feeder Relationship Specialty Start Date End Date Elsewhere, Pcp PCP - General Internal Medicine 09/03/19 documented as of this encounter
--- OUTSIDE RECORDS SUMMARY | 2024-07-08 17:34 | XMS_ITS | Referral Summary ---
Author Organization [facility] Address [address] [place] [address] Care Team Providers Care Landscape Gardener Name Role Phone Elsewhere, Pcp Primary Care Provider Unavailabl e Source Comments Patient records contain information from all sites at [facility]. For routine questions regarding patient records, call [phone] during business hours, M-F 8:00 AM - 5:00 PM Central Time. 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 10/17/2017 10:13 [...] week 04/07/2021 How often do you attend [facility] or mosque services? Patient declined 04/07/2021 Do you belong to any clubs o r organizations such as evangelical groups, unions, fraternal or athletic groups, or [...] medical care, and heating? 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 Gender Identity Female 04/07/2021 9:53 PM CDT [...] 11/06/2021 9:06 PM CDT Plan of Treatment Not on file Procedures Procedure Name Priority Date/Time Associated Diagnosis Comments BASIC METABOLIC PANEL, S/P STAT 02/13/2024 2:30 PM CDT from Last 3 Months or Most Recently Relevant to Health Maintenance Insurance [facility] MEDICARE Advance Directives For more information, please contact: [phone] * Full Code (Latest Code Status on File) Date Activated Date Inactivated Comments 11/06/2021 8:16 PM 11/07/2021 7:19 PM Question Answer Comments Full Code: Discussed * Full Code Date Activated Date Inactivated Comments 09/24/2021 2:12 PM 09/25/2021 7:34 PM Question Answer Comments Full Code: Discussed Care Teams Landscape Gardener Relationship Specialty Start Date End Date Elsewhere, Pcp PCP - General Internal Medicine 09/03/19
--- OUTSIDE RECORDS SUMMARY | 2024-07-08 17:34 | XMS_ITS ---
Author Organization [facility] Address [address] [place] [address] Care Team Providers Care Renal Dialysis Rn Name Role Phone Unavailable Unavailable Unavailable Surgery Details Not on file Complications Check Surgery Details section. Procedure Estimated Blood Loss Check Surgery Details section. Procedure Findings Check Surgery Details section. Procedure Specimens Taken Check Surgery Details section.
--- NOTE | 2024-07-08 18:48 | ED_ITS ---
HPI - General Adult General Date Seen: 07/08/24 Chief complaint: Dental/Oral/Mouth Injury/Pain Stated complaint: Infected tooth/vomiting Time Seen by Provider: 07/08/24 18:48 History of Present Illness HPI narrative: 34-year-old female with a past medical history of Gitelman syndrome, iron deficiency anemia, depression, chronic pain syndrome (reports that she gets muscle aches from her Gitelman syndrome from time to time and needs take tramadol fairly often, every week or 2). She presents to the ER today for uncontrolled right lower jaw pain from a toothache associated with nausea and vomiting and fever. She developed pain in the back molar on her right mandible last Sunday, during the mid week. She went to a dentist and was told that she has the dental caries and probably an infection in the root of the tooth. On Sunday her dentist prescribed her amoxicillin. He said that the root of the tooth was infected and that they needed to treat the infection 1st with a course of antibiotics, and then have her come back to the dentist office next week for a extraction. She started on the amoxicillin on Sunday and was taking it 1 tablet 3 times daily on Sunday, Sunday. Along with that she was having a lot of pain in her tooth. It sounds like the pain had been manageable with her home meds. Two days ago on Sunday she also developed fever and chills, nausea and vomiting, and also some loose diarrhea. She is feeling achy. She has been unable to keep fluids down and unable to take her antibiotics for the past couple of days because of vomiting. She has a long history of frequent vomiting and has Zofran (non dissolvable pills, not 0 DT) at home. She has been trying to take the Zofran but can not keep it down. Her right lower jaw is hurting more today. It is not controlled with her tramadol and she cannot keep it down. She called her dentist office and they told her to come to the ER. Related Data Home Medications ?Medication ?Instructions ?Recorded ?Confirmed albuterol sulfate 90 mcg/actuation 2 inh inhalation Q4H PRN 04/09/24 05/06/24 aerosol inhaler ferrous sulfate 325 mg (65 mg 325 mg PO TID 04/09/24 05/06/24 iron) tablet (iron) gabapentin 100 mg capsule 100 mg PO HS 04/09/24 05/06/24 gabapentin 300 mg capsule 300 mg PO TID 04/09/24 07/08/24 hydroxyzine HCl 25 mg tablet 25 - 50 mg PO Q6H PRN 04/09/24 05/06/24 potassium chloride 20 mEq 80 meq PO TID 04/09/24 07/08/24 tablet,extended release(part/cryst) (Klor-Con M) calcium carbonate (Sd-Gest 200 - 400 mg PO QID PRN 05/06/24 05/06/24 Antacid) magnesium oxide 400 mg PO TID 05/06/24 05/06/24 methocarbamol 750 mg tablet 750 mg PO Q6H PRN 05/06/24 07/08/24 multivitamin (Multiple Vitamins 1 tab PO DAILY 05/06/24 05/06/24 tablet) sennosides 8.6 mg-docusate sodium 1 tab-cap PO BID PRN 05/06/24 05/06/24 50 mg tablet (Senna Plus) spironolactone 50 mg tablet 50 mg PO BID 05/06/24 07/08/24 tramadol 50 mg tablet 50 mg PO BID 05/06/24 07/08/24 Allergies Allergy/AdvReac Type Severity Reaction Status Date / Time duloxetine (From Cymbalta) Allergy Severe Hypotension Verified 04/09/24 15:26 IV Iron AdvReac Intermediate swelling Uncoded 04/09/24 15:26 of [facility] Medical History (Updated 07/08/24 @ 22:37 by Monty Barajas MD) Amenorrhea ?N91.2 - Amenorrhea, unspecified (ICD-10) Metabolic alkalosis ?E87.3 - Alkalosis (ICD-10) Malnutrition ?E46 - Unspecified protein-calorie malnutrition (ICD-10) Normal esophagogastroduodenoscopy (EGD) ?Z01.89 - Encounter for other specified special examinations (ICD-10) Depression ?F32.A - Depression, unspecified (ICD-10) Prolonged QT interval ?R94.31 - Abnormal electrocardiogram [ECG] [EKG] (ICD-10) Chronic pain ?G89.29 - Other chronic pain (ICD-10) Anxiety ?F41.9 - Anxiety disorder, unspecified (ICD-10) Fibromyalgia ?M79.7 - Fibromyalgia (ICD-10) Chronic iron deficiency anemia ?D50.9 - Iron deficiency anemia, unspecified (ICD-10) Opioid abuse ?F11.10 - Opioid abuse, uncomplicated (ICD-10) [id number] kidney injury ?N17.9 - Acute kidney failure, unspecified (ICD-10) ?N18.9 - Chronic kidney disease, unspecified (ICD-10) Syncope ?R55 - Syncope and collapse (ICD-10) Osteoporosis ?M81.0 - Age-related osteoporosis without current pathological fracture (ICD- 10) Hypokalemia ?E87.6 - Hypokalemia (ICD-10) Bulimia ?F50.20 - Bulimia nervosa, unspecified (ICD-10) Gitelman syndrome ?N15.8 - Other specified renal tubulo-interstitial diseases (ICD-10) Surgical History (Updated 05/06/24 @ 21:53 by Maykel Perez MD) History of removal of Port-a-Cath ?Z98.890 - Other specified postprocedural states (ICD-10) History of appendectomy ?Z90.49 - Acquired absence of other specified parts of digestive tract (ICD- 10) Social History (Updated 05/06/24 @ 21:54 by Maykel Perez MD) Narrative: She lives alone in [place]. 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 She does not smoke. She does not drink. She does not use recreational drugs including cannabis What is your current living situation?: I presently have a place to live Problems where you live: no known problems Problems where you live details: N/A In the past 12 months, utilities in danger of being shut off: no In past 12 months, lack of transportation kept you from medical appts, meetings, work, or getting things needed for daily living: no In the past 12 mos, have been you worried that your food would run out before you had money to buy more?: never true In the past 12 mos, the food you bought just didn't last and you didn't have money to buy more?: never true Highest level of school completed/degree received: Bachelor's degree Smoking Status: Never smoker How often do you have a drink containing alcohol: never AUDIT-C Alcohol total score: 0 Non-prescribed substance use: denies use How often does anyone, including family, friends and others, physically hurt you : never How often does anyone, including family, friends and others, insult or talk down to you: never How often does anyone, including family, friends and others, threaten you with harm: never How often does anyone, including family, friends and others, scream or curse at you: never Exam Narrative: Exam Narrative: Constitutional: Appears well-developed. The very slender with low BMI. Sitting up in her ER chair with her knees drawn up against her chest. Anxious. Sometimes stuttering during our conversation. She apologizes multiple times for coming to the ER (unclear why. I wonder a she has had negative interactions with other ER doctors in the past.) HENT: Head: Atraumatic. Nose: Nose normal. Mouth/Throat: Face normal inspection. No cheek swelling or redness. No submandibular swelling or edema. No palpable abscesses. No trismus. Generally good dentition. She does have dental caries or possibly a fracture on the buccal posterior corner of her right mandibular 2nd molar. The gums around that molar look good. I see no erythema. No purulent drainage. No swelling to suggest gingival abscess. Tongue is normal. Submandibular tissues are normal. No evidence for Ross's. She does have tonsillar erythema with small whitish exudative lesions on both tonsils impaired tonsillar pillars. This appears to be unrelated to her dental infection. Eyes: Conjunctivae normal. EOM normal. Pupils equal, round, and reactive to light. No scleral icterus. Neck: Normal range of motion. Neck supple. No tracheal deviation present. Cardiovascular: Normal rate, regular rhythm. No gallop. No friction rub. No murmur heard. Symmetric radial artery pulses Pulmonary/Chest: Effort normal. No stridor. No respiratory distress. No wheezes. No rales. No rhonchi Musculoskeletal: RUE: Normal range of motion. No tenderness. No deformity LUE: Normal range of motion. No tenderness. No deformity RLE: Normal range of motion. No edema. No tenderness. No deformity LLE: Normal range of motion. No edema. No tenderness. No deformity Lymph: No cervical adenopathy. Neurological: Alert and oriented to person, place, and time. Normal strength. CN II-VII intact. No sensory deficit. GCS eye subscore is 4. GCS verbal subscore is 5. GCS motor subscore is 6. Normal coordination Skin: Skin is warm and dry. No rash noted. No pallor. Normal capillary refill. Psychiatric: Normal mood. Anxious. Has her leg drawn up against her body with a very guarded body posture. Const: Vital Signs, click to edit/add: Vital Signs - 24 hr 07/08/24 17:37 Temperature 97.3 F L Pulse Rate [Pulse Oximeter] 89 Respiratory Rate 20 Blood Pressure [Ri ght Upper Arm] 110/58 L Pulse Oximetry 96 Oxygen Delivery Me thod Room Air Course Course ED Course: Seen and examined in ER room 4. Discussed options for management. She would prefer to hold off on local anesthetic injection into her tooth. Will try treating her nausea with Zofran 0 DT and then administering oral oxycodone for symptoms. With her history, it is possible that labs and IV may be necessary if oral med are unsuccessful. Reevaluation(s) Reevaluation #1: [id number]. Says not vomited after receiving oxycodone. No improvement and pain. Still nauseous. Discussed with the patient that we will order an IV for symptom relief Nurses informed me that she has actually multiple recent [facility] system ER visits. Asked me to look at her medical record. I reviewed recent doctor notes from [facility] link It looks like on the she was calling and messaging her PCP to get refill Robaxin. Notes from today indicate that 1 of the [facility] clinic PAs indicated she would need to be seen in person before they would give any prescriptions. They also said that they will not prescribe lorazepam. In records from 07/03 on the phone it sounds like she was in the hospital and had a negative experience. She was mass edging her doctor, asking for refills of tramadol and oxycodone. Vital Signs Vital signs: Initial Vital Signs Temperature 97.3 F L 07/08/24 17:37 Temperature Source Temporal Artery Scan 07/08/24 17:37 Pulse Rate 89 07/08/24 17:37 Respiratory Rate 20 07/08/24 17:37 Blood Pressure 110/58 L 07/08/24 17:37 Blood Pressure Mean 75 07/08/24 17:37 Pulse Oximetry 96 07/08/24 17:37 Oxygen Delivery Method Room Air 07/08/24 17:37 Vital Signs Temperature 97.3 F L 07/08/24 17:37 Pulse Rate 89 07/08/24 17:37 Respiratory Rate 20 07/08/24 17:37 Blood Pressure 110/58 L 07/08/24 17:37 Pulse Oximetry 96 07/08/24 17:37 Oxygen Delivery Method Room Air 07/08/24 17:37 Temperature 97.3 F L 07/08/24 17:37 Pulse Rate 89 07/08/24 17:37 Respiratory Rate 20 07/08/24 17:37 Blood Pressure 110/58 L 07/08/24 17:37 Pulse Oximetry 96 07/08/24 17:37 Oxygen Delivery Method Room Air 07/08/24 17:37 Medications Administered Medications: Generic Name Dose Route Start Last Admin Trade Name Freq PRN Reason Stop Dose Admin Hydromorphone HCl 0.5 mg 07/08/24 21:40 07/08/24 21:46 Hydromorphone 0.5 Mg/0.5 Ml Inj IVP 0.5 mg Q1H PRN Administration Pain Discontinued Medications Generic Name Dose Route Start Last Admin Trade Name Freq PRN Reason Stop Dose Admin Sodium Chloride 500 mls @ 500 mls/hr 07/08/24 20:56 07/08/24 21:10 0.9 % Sodium Chloride 500 Ml IV 07/08/24 21:55 500 mls/hr .Q1H ONE Administration Ondansetron HCl 4 mg 07/08/24 19:11 07/08/24 19:17 Ondansetron Odt 4 Mg Tab PO 07/08/24 19:12 4 mg ONCE ONE Administration Ondansetron HCl 4 mg 07/08/24 20:56 07/08/24 21:10 Ondansetron 2 Mg/Ml Inj IVP 07/08/24 20:57 4 mg ONCE ONE Administration Oxycodone HCl 5 mg 07/08/24 19:11 07/08/24 19:25 Oxycodone 5 Mg Tablet PO 07/08/24 19:12 5 mg ONCE ONE Administration Oxycodone HCl 5 mg 07/08/24 21:13 07/08/24 21:43 Oxycodone 5 Mg Tablet PO 07/08/24 21:14 Not Given ONCE ONE Medical Decision Making [facility] Narrative Medical decision making narrative: This patient presents with a tooth ache and right-sided jaw pain stemming from a dental caries affecting her right mandibular 2nd molar. Along with that, she is already on antibiotics by her dentist but cannot take them because she has had nausea and vomiting for the past 3 days. She has a long history of episodes of nausea and vomiting associated with electrolyte disturbances because of her Gitelman syndrome. She reports fever and chills. The the PCR negative for influenza, COVID, RSV. Does have mild pharyngitis. Rapid strep negative. Could be viral illness. At this point I do not see any sign of trismus, tonsillar asymmetry to suggest peritonsillar abscess. Would hold off on CT angiogram of her neck due to risk of radiation exposure. In terms of her nausea and vomiting, cause unclear. Differential broad. Could be viral GI. Could be triggered by her Gitelman syndrome. She also seems to have he underlying anxiety which could be contributing. She does have frequent episodes of nausea and vomiting diarrhea apparently related to her underlying illnesses. At this point low suspicion for C diff triggered by her amoxicillin. Would continue her on antibiotics for her tooth. Laboratory workup shows significant hypokalemia with a potassium of 2.6 She had admission for hypokalemia last April. Came in with potassium of 2.2 and then was discharged at 3.5. as well as an acute kidney injury. Creatinine today is 2.2, previous baseline 1.5 . BUN 59, up slightly from baseline. Serum bicarb level also elevated, similar to prior and related to Gitelman syndrome. Given her ongoing nausea after oral and IV nausea meds given here in the ER with her electrolyte disturbances, low potassium, acute kidney injury unfortunately I think she needs hospitalization for IV hydration and electrolyte repletion. In terms of her tooth, the differential diagnosis includes: cracked tooth syndrome, pulpitis, sub-apical abscess, amongst others. There is no abscess detected around the tooth amenable to incision and drainage. There is no evidence of buccinator/canine space infections, significant facial swelling, or Ross's angina. There are no posterior pharyngeal space infections detected. Disposition: With the patient's low potassium, acute kidney injury, dehydration, ongoing nausea and vomiting here in the ER I think she needs to be admitted for IV potassium repletion. Discussed with our hospitalist, orin betts. She reviewed the patient's past medical history and notes multiple previous hospitalizations for electrolyte disturbances and apparently the patient is checked out from previous hospitalizations against medical advice on several occasions. Hospitalist suggest that we could just keep the patient here in the ER for potassium repletion. However with potassium this low it would likely take 100 medical ends of IV potassium, which would take 10 hours to get her potassium up. She is not having control of nausea yet to the point where she can take much p.o. potassium, but I will try IV and oral potassium here in the ER Patient says she is reluctant to be admitted based on negative interactions in the hospital recently (apparently, [facility]). She objects to having a sitter in her room (as I gather, apparently was ordered because there was suspicion for self-induced vomiting). Ultimately she agrees stay. Our hospitalist will come here to the ER to evaluate the patient for admission. Lab Data Labs: Lab Results 07/08/24 07/08/24 Range/Units 19:15 21:10 WBC 7.69 (4.50-11.00) K/uL RBC 3.45 L (4.00-5.20) m/uL Hgb 9.4 L (12.0-16.0) gm/dL Hct 27.8 L (33.0-51.0) % MCV 81 (80-100) fL MCH 27 (26-34) pg MCHC 34 (32-36) gm/dL RDW Coeff of Nahun 15.4 (11.5-15.5) % Plt Count 537 H (140-440) K/uL Neut % (Auto) 54.5 (42.0-72.0) % Lymph % (Auto) 35.2 (20-44) % [place] % (Auto) 7.8 (0.0-11.0) % Eos % (Auto) 1.3 (0.0-7.0) % Baso % (Auto) 0.5 (0.0-3.0) % Neut # (Auto) 4.19 (1.7-7.0) K/uL Lymph # (Auto) 2.71 (0.90-2.90) K/uL [place] # (Auto) 0.60 (0.00-0.90) K/UL Eos # (Auto) 0.10 (0.00-0.50) K/uL Baso # (Auto) 0.04 (0.00-0.30) K/uL Abs Immat Gran (auto) 0.05 (0.00-0.30) K/uL Imm/Tot Granulo (auto) 0.7 % Sodium 135 (135-149) mmol/L Potassium 2.6 L* (3.6-5.1) mmol/L Chloride 82 L (96-114) mmol/L Carbon Dioxide 39 H (20-32) mmol/L Anion Gap 14 (7-15) mEq/L BUN 59 H (5-24) mg/dL Creatinine 2.2 H (0.5-1.5) mg/dL Estimated Creat Clear 28.13 Estimated GFR 30 ml/min Glucose 95 (60-115) mg/dL Calcium 9.6 (8.4-10.6) mg/dL SARS-CoV-2 (PCR) Negative SARS-CoV-2 (Negative) Influenza Type A (PCR) Negative PCR FLU A (Negative) Influenza Type B (PCR) Negative PCR FLU B (Negative) RSV (PCR) Negative PCR RSV (Negative) Group A Strep DNA NOT DETECTED (Not Detectd) ECG Data Attestation: I personally reviewed and interpreted this ECG as follows: Interpretation: Normal sinus rhythm Rate 71 DC interval 110 Normal QRS axis. Large QRS voltages likely due to patient's thin body habitus. No ST segment elevation or depression. Nonspecific T-wave flattening. Computer interpretation notes acute NV. However I think this is not accurate. I do not think the patient is having an acute STEMI based on this EKG She either has U waves or very prolonged QTc Computer measurement of QT interval is 438 with a QT corrected of 475. Discharge Plan Discharge Clinical Impression: Acute hypokalemia, Toothache, BARBARA (acute kidney injury), Nausea & vomiting Patient Disposition: Admitted As Observation
[2024-07-08] MEDS: ONDANSETRON ODT 4 MG TAB PO (19:17)
[2024-07-08] MEDS: OXYCODONE 5 MG TABLET PO (19:25)
--- OUTSIDE RECORDS SUMMARY | 2024-07-08 19:36 | XMS_ITS | Clinical Summary ---
Author Organization [facility] Address [address] [address] Phone Care Team Providers Care Bundle Packer Name Role Phone Elsewhere, Pcp Primary Care [...] on file Legal Sex Female 8:53 PM DEMOGRAPHIC ANALYST Gender Identity Not on file Sexual Orientation Not on file Obstetrics History Last Filed Vital Signs Vital Sign Reading Time Taken Comments Blood Pressure 106/72 08/20/2012 10:41 AM DEMOGRAPHIC ANALYST Pulse 68 08/20/2012 10:41 AM DEMOGRAPHIC ANALYST Temperature 36.5 C (97.7 F) 08/20/2012 10:41 AM DEMOGRAPHIC ANALYST Respiratory Rate 12 08/20/2012 10:41 AM DEMOGRAPHIC ANALYST Oxygen Saturation 100% 07/11/2012 2:31 PM DEMOGRAPHIC ANALYST Inhaled Oxygen Concentration - - Weight 53.3 kg (117 lb 9.6 oz) 08/20/2012 10:41 AM DEMOGRAPHIC ANALYST Height 170.2 cm (5' 7) 07/11/2012 2:31 PM DEMOGRAPHIC ANALYST Body Mass Index 18.42 07/11/2012 2:31 PM DEMOGRAPHIC ANALYST Plan of Treatment Health Maintenance Due Date [...] complete this topic Insurance OTHER STATE BCBS [facility] BCBS [facility] BCBS OF [place] Care Teams Bundle Packer Relationship Specialty Start Date End Date Elsewhere, Pcp PCP - General 12/24/15
--- OUTSIDE RECORDS SUMMARY | 2024-07-08 19:36 | XMS_ITS | Clinical Summary ---
Author Organization [facility] Address [address] [place] [address] Care Team Providers Care Business Services Manager Name Role Phone Unavailable Primary Care Provider [...] st Contact Info) Description 08/26/2024 10:00 AM [employer] Office Visit [address] [phone] Ritu Estevez [address] [place] [id number] Health Maintenance Due Date Last Done Comments HPV Screening 1991 Hepatitis C Screening 1991 Pap + HPV 1991 Tobacco Screening 1991 HIV Screening 2006 Relationship Safety Screening/Counseling 2006 Hypertension Screening (#1) 2009 Cervical Cancer Screening 2012 Pap Smear 2012 [id number] ( season) 2024 Imm-Influenza (#1) 2024 Alcohol and Drug Screen 06/25/2024 Depression Annual Screen 06/25/2024 Imm-DTaP/Tdap/Td (8 - Td or Tdap) 08/30/2030 08/30/2020, 04/19/2009, 11/16/2003, Additional history exists Imm-Hepatitis B Completed 04/27/1993, 09/24, 07/16/1992 Cervical Ablation/Cold-Knife Conization Discontinued Cervical Cryotherapy Discontinued Colposcopy Discontinued Endometrial Biopsy Discontinued Excision/Leep Discontinued HPV Genotyping Discontinued Vaginal Pap Discontinued Vulvoscopy Discontinued
--- OUTSIDE RECORDS SUMMARY | 2024-07-08 19:36 | XMS_ITS | Clinical Summary ---
Author Organization Netadmin [facility] Address [place], [place] [address] Care Team Providers Care Forging Dies Final Finisher Name Role Phone Gregg Corrales MD Primary Care Provider Neha Chavez Unavailable Unavailable [facility], [facility] Unavailable [phone] Robles Long MD Unavailable [phone] Hayden Benavides [facility] Unavailable Allergies Active Allergy Reactions Criticality Noted [...] Type Department Care Team Description 07/08/2024 Telephone [facility] [address] [place] [address] Gregg Corrales MD Appointment 07/07/2024 Telephone [facility] [address] [place] [address] Gregg Corrales MD Refill Request (methocarbamol tablet (ROBAXIN) /) 07/03/2024 Telephone [facility] [address] [place] [address] Gregg Corrales MD Follow Up 06/26/2024 Medical Messaging [facility] [address] [place] [address] Shah appointment 06/16/2024 Telephone [facility] [address] [place] [address] Gregg Corrales MD 06/16/2024 Telephone [facility] [address] [facility] [address] [place] [address] Hayden Benavides MBBS Lab (important labs ) 06/16/2024 Telephone [facility] [address] [facility] [address] [place] [address] Hayden Benavides MBBS Lab 06/14/2024 Telephone [facility] [address] [facility] [address] [place] [address] Hayden Benavides MBBS Results (Returning call) 06/13/2024 11:30 AM HONING MACHINE OPERATOR Office Visit [facility] [address] [place] [address] Hayden Benavides MBBS Follow Up (Renal follow-up / post-hospital follow-up) 06/13/2024 Orders Only [facility] Scanner 1 scan: (1-Ord) [facility], MULTIPLE LAB RESULT, 06/13/2024 06/13/2024 Travel 05/28/2024 2:22 PM HONING MACHINE OPERATOR - 05/28/2024 11:59 PM HONING MACHINE OPERATOR Hospital Encounter [address] [address] Hypokalemia 05/28/[address] [address] Gregg Corrales MD Results 05/28/2024 Travel 05/27/2024 3:15 PM HONING MACHINE OPERATOR Ancillary Procedure [address] [address] 05/27/2024 3:00 PM HONING MACHINE OPERATOR Ancillary Procedure [facility] [address] [place] [address] 05/27/2024 2:15 PM HONING MACHINE OPERATOR Office Visit [address] [place] [address] Gregg Corrales MD Follow Up (Patient is still having (R) sided rib pain) 05/26/2024 Travel 05/15/[address] [address] Gregg Corrales MD Results 05/14/2024 11:55 AM HONING MACHINE OPERATOR Ancillary Procedure [address] [address] 05/14/2024 11:05 AM HONING MACHINE OPERATOR Office Visit [address] [address] Gregg Corrales MD Follow Up; Pain (Rib pain passed out 2 weeks ago woke up extreme rib pain) 05/14/2024 Travel 05/05/2024 Patient Outreach [facility] Care Management - Advanced Care Team [address] [place] [address] Nguyen Najera RN Chronic Kidney Disease (Engagement Outreach) 05/01/2024 Patient Outreach [facility] - Care Management Navigation/[facility] [address] [place] [address] Alex Lizama LSW Care Management Intake (Social work care management intake outreach. ) 04/28/[address] [address] Gregg Corrales MD Hospital F/U 04/23/2024 10:30 AM CDT Office Visit [facility] [address] [facility] [address] [place] [address] Hayden Benavides MBBS Follow Up (Renal follow-up) 04/23/2024 Orders Only [facility] Scanner 1 scan: (1-Ord) ABNORMAL ECG , 04/23/2024 04/23/[address] [address] Gregg Corrales MD Failed Appointment 04/22/2024 Telephone [facility] [address] [place] [address] [place], [place] [id number] Gregg Corrales MD 04/22/2024 Travel 04/08/2024 Telephone [facility] [address] [place] [address] [place], [place] [id number] Hayden Benavides MBBS from Last 3 Months [...] on file Legal Sex Female 5:27 AM HONING MACHINE OPERATOR Gender Identity Not on file Sexual Orientation Not on file Obstetrics History Last Filed Vital Signs Vital Sign Reading Time Taken Comments Blood Pressure 114/71 06/13/2024 12:05 PM HONING MACHINE OPERATOR Pulse 96 06/13/2024 12:05 PM HONING MACHINE OPERATOR Temperature 36.4 C (97.6 F) 03/01/2024 11:31 AM CDT Respiratory Rate 16 03/01/2024 11:3 1 AM CDT Oxygen Saturation 97% 04/23/2024 10: 34 AM CDT Inhaled Oxygen Concentration - - Weight 47.1 kg (103 lb 12.8 oz) 06/13/2024 11:58 AM HONING MACHINE OPERATOR with snowpants on Height 170.2 cm (5' 7) 02/29/2024 11:2 1 AM CDT Body Mass Index 16.26 02/29/2024 11:21 AM CDT Plan of Treatment Upcoming Encounters Date Type Department Care Team (Late st Contact Info) Description 07/23/2024 10:00 AM HONING MACHINE OPERATOR Telemedicine [facility] [address] [place] [address] [place] [address] [place] [address] Health Maintenance Due Date Last Done Comments [...] Completed 09/19/2021 Medical Devices Implanted Type Area Electrocardiograph Repairer Device Identifier Shelf Expiration Date Model / Serial / Lot Mesh Ventral 2.5in Ventralex St W/Strap - [id number] Implanted:Qty : 1 on 12/25/2023 by Robles Long MD at [facility] General Surgery Implants N/A: Abdomen [employer] 03/22/2025 [id number] / / [id number] Port W/8fr 1 [employer] - [id number] Implanted:Qty : 1 on 03/20/2023 by Clementine Hickman MD at [facility] [employer] 11/22/2024 [id number] / / [id number] Port W/8fr 1 [employer] - [id number] Implanted:Qty : 1 on 03/21/2023 by Clementine Hickman MD at [facility] Right: Chest [employer] 11/22/2024 [id number] / / [id number] Procedures Procedure Name Priority Date/Time Associated Diagnosis Comments OSMOLALITY,URINE Routine 06/13/2024 2:00 PM HONING MACHINE OPERATOR BARBARA (acute kidney injury) (HC) Hypercalcemia Hypokalemia Alkalosis SODIUM,RANDOM URINE Routine 06/13/2024 2 :00 PM HONING MACHINE OPERATOR BARBARA (acute kidney injury) (HC) Hypercalcemia Hypokalemia Alkalosis POTASSIUM,RANDOM URINE Routine 06/13/2024 2:00 PM HONING MACHINE OPERATOR BARBARA (acute kidney injury) (HC) Hypercalcemia Hypokalemia Alkalosis CHLORIDE,RANDOM URINE Routine 06/13/2024 2:00 PM HONING MACHINE OPERATOR BARBARA (acute kidney injury) (HC) Hypercalcemia Hypokalemia Alkalosis CALCIUM,RANDOM URINE Routine 06/13/2024 2:00 PM HONING MACHINE OPERATOR BARBARA (acute kidney injury) (HC) Hypercalcemia Hypokalemia Alkalosis PROTEIN/CREAT RATIO,URINE Routine 06/13/2024 2:00 PM HONING MACHINE OPERATOR BARBARA (acute kidney injury) (HC) Hypercalcemia Hypokalemia Alkalosis CK TOTAL STAT 06/13/2024 1:05 PM HONING MACHINE OPERATOR BARBARA (acute kidney injury) (HC) CALCITRIOL(1 25 DI OH VIT D) Routine 06/13/2024 1:05 PM HONING MACHINE OPERATOR BARBARA (acute kidney injury) (HC) Hypercalcemia Hypokalemia Alkalosis PTH,INTACT Routine 06/13/2024 1:05 PM HONING MACHINE OPERATOR BARBARA (acute kidney injury) (HC) Hypercalcemia Hypokalemia Alkalosis MAGNESIUM Routine 06/13/2024 1:05 PM HONING MACHINE OPERATOR BARBARA (acute kidney injury) (HC) Hypercalcemia Hypokalemia Alkalosis OSMOLALITY Routine 06/13/2024 1:05 PM HONING MACHINE OPERATOR BARABRA (acute kidney injury) (HC) Hypercalcemia Hypokalemia Alkalosis VITAMIN D 25 (DEFICIENCY) Routine 06/13/2024 1:05 PM HONING MACHINE OPERATOR BARBARA (acute kidney injury) (HC) Hypercalcemia Hypokalemia Alkalosis PHOSPHORUS Routine 06/13/2024 1:05 PM HONING MACHINE OPERATOR BARBARA (acute kidney injury) (HC) Hypercalcemia Hypokalemia Alkalosis CALCIUM IONIZED OUTPT DRAW ONLY Routine 06/13/2024 1:05 PM HONING MACHINE OPERATOR BARBARA (acute kidney injury) (HC) Hypercalcemia Hypokalemia Alkalosis BASIC METABOLIC PANEL Routine 06/13/2024 1:05 PM HONING MACHINE OPERATOR BARBARA (acute kidney injury) (HC) Hypercalcemia Hypokalemia Alkalosis SCAN-LABORATORY REPORT 06/13/2024 12:00 AM HONING MACHINE OPERATOR MAGNESIUM Today 05/28/2024 2:31 PM HONING MACHINE OPERATOR Hypokalemia BASIC METABOLIC PANEL Today 05/28/2024 2:31 PM HONING MACHINE OPERATOR Hypokalemia XR ANKLE 3 VIEWS LEFT Routine 05/27/2024 3:04 PM HONING MACHINE OPERATOR Acute left ankle pain XR KNEE 3 VIEWS LEFT Routine 05/27/2024 3:04 PM HONING MACHINE OPERATOR Acute pain of left knee BASIC METABOLIC PANEL Routine 05/14/2024 12:13 PM HONING MACHINE OPERATOR Hypokalemia Chronic kidney disease (CKD), stage IV (severe) (HC) CBC W PLT NO DIFF Routine 05/14/2024 12: 13 PM HONING MACHINE OPERATOR Hypokalemia Chronic kidney disease (CKD), stage IV (severe) (HC) XR RIBS RIGHT AND PA CHEST MINIMUM 3 VIEWS Routine 05/14/2024 12:08 PM HONING MACHINE OPERATOR Rib pain on right side SCAN-ELECTROCARDIOG CARMEN EKG 04/23/2024 12:00 AM CDT ANTI HIV 1/2 Routine 09/19/2021 12:39 PM CDT Iron deficiency anemia, unspecified iron deficiency anemia type ANTI HCV Routine 09/19/2021 12:39 PM CDT Iron deficiency anemia, unspecified iron deficiency anemia type from Last 3 Months or Most Recently Relevant to Health Maintenance Results * (ABNORMAL) PROTEIN/CREAT RATIO,URINE (06/13/2024 2:00 PM HONING MACHINE OPERATOR) PROTEIN QUANT,RAND URINE 24(H) 1 - 14 mg/dL 06/13/2024 11:47 PM HONING MACHINE OPERATOR [facility] CREAT,RANDOM URINE 54.2 28.0 - 217.0 mg/dL 06/13/2024 11:47 PM HONING MACHINE OPERATOR [facility] PROT/CREAT RATIO,UR 0.4(H) <0.2 06/13/2024 11:47 PM HONING MACHINE OPERATOR [facility] Urine URINE SPECIMEN / Unknown Non-Blood / Unknown 06/13/2024 2:00 PM HONING MACHINE OPERATOR 06/13/2024 2:48 PM HONING MACHINE OPERATOR Hayden DENTON URINE Final Result Performing Organization Address [facility]/ZIP Co de Phone Number [facility] [address] [place] [address], [place] * SODIUM,RANDOM URINE (06/13/2024 2:00 PM HONING MACHINE OPERATOR) Pathologist [facility] SODIUM,RANDOM URINE 43 mmol/L 06/13/2024 11:47 PM HONING MACHINE OPERATOR [facility] Comment:No Reference Range D efined. Urine URINE SPECIMEN / Unknown Non-Blood / Unknown 06/13/2024 2:00 PM HONING MACHINE OPERATOR 06/13/2024 2:48 PM HONING MACHINE OPERATOR Hayden DENTON URINE Final Result [facility] [address] [place] [address], [place] * POTASSIUM,RANDOM URINE (06/13/2024 2:00 PM HONING MACHINE OPERATOR) POTASSIUM,RAND OM UR 36.1 mmol/L 06/13/2024 11:47 PM HONING MACHINE OPERATOR [facility] Comment:No Reference Range D efined. Urine URINE SPECIMEN / Unknown Non-Blood / Unknown 06/13/2024 2:00 PM HONING MACHINE OPERATOR 06/13/2024 2:48 PM HONING MACHINE OPERATOR Hayden DENTON URINE Final Result Performing Organization Address City/[facility]/ZIP Co de Phone Number [facility] [address] [place] [address], [place] * CHLORIDE,RANDOM URINE (06/13/2024 2:00 PM HONING MACHINE OPERATOR) CHLORIDE,RANDO M URINE <20 mmol/L 06/13/2024 11:47 PM HONING MACHINE OPERATOR [facility] Comment:No Reference Range D efined. Urine URINE SPECIMEN / Unknown Non-Blood / Unknown 06/13/2024 2:00 PM HONING MACHINE OPERATOR 06/13/2024 2:48 PM HONING MACHINE OPERATOR Hayden DENTON URINE Final Result Performing Organization Address City/[facility]/ZIP Co de Phone Number [facility] [address] [address], [place] * CALCIUM,RANDOM URINE (06/13/2024 2:00 PM HONING MACHINE OPERATOR) CALCIUM,RANDOM URINE 6.3 mg/dL 06/13/2024 11:50 PM HONING MACHINE OPERATOR [facility] Comment:No Reference Range D efined. Urine URINE SPECIMEN / Unknown Non-Blood / Unknown 06/13/2024 2:00 PM HONING MACHINE OPERATOR 06/13/2024 2:48 PM HONING MACHINE OPERATOR Hayden DENTON URINE Final Result Performing Organization Address City/[facility]/ZIP Co de Phone Number [facility] [address] [place] [address], [place] * OSMOLALITY,URINE (06/13/2024 2:00 PM HONING MACHINE OPERATOR) OSMOLALITY,URI NE 247 50 - 1,400 mOsmol/kg 06/14/2024 2:11 AM HONING MACHINE OPERATOR [facility] Urine URINE SPECIMEN / Unknown Non-Blood / Unknown 06/13/2024 2:00 PM HONING MACHINE OPERATOR 06/13/2024 2:48 PM HONING MACHINE OPERATOR Hayden Cabezas Alacarline Benavides [facility] URINE Final Result Performing Organization Address [facility] Co de Phone Number [facility] [address] [place] [address], [place] * (ABNORMAL) CALCITRIOL(1 25 DI OH VIT D) (06/13/2024 1:05 PM HONING MACHINE OPERATOR) VITAMIN D, 1,25 (OH)2, TOTAL <8(L) 18 - 72 pg/mL 06/20/2024 12:55 PM HONING MACHINE OPERATOR [facility] VITAMIN D3, 1,25 (OH)2 <8 pg/mL 06/20/2024 12:55 PM HONING MACHINE OPERATOR [facility] VITAMIN D2, 1,25 (OH)2 <8 pg/mL 06/20/2024 12:55 PM HONING MACHINE OPERATOR [facility] Comment: (Note) Vitamin D3, 1,25(OH)2 indicates both endogenous production and supplementation. Vitamin D2, 1,25(OH)2 is an indicator of exogenous sources, such as diet or supplementation. Interpretation and therapy are based on measurement of Vitamin D, 1,25 (OH)2, Total. This test was developed, and its analytical performance characteristics have been determined by [employer] It has not been cleared or approved by the FDA. This assay has been validated pursuant to the CLIA regulations and is used for clinical purposes. For additional information, please refer to http://education.YooLotto.Medialive/faq/IYV800 (This link is being provided for informational/educational purposes only.) [facility] [address] [facility] [address] [facility] [address] Luciano Rollins MD, PhD Blood BLOOD SPECIMEN / Unknown Non-Lab Venipuncture / Unknown 06/13/2024 1:05 PM HONING MACHINE OPERATOR 06/13/2024 1:36 PM HONING MACHINE OPERATOR Hayden DENTON SEND OUTS Final Result Performing Organization Address [facility] Co de Phone Number [facility] [address] [address], [place] [phone] * (ABNORMAL) CALCIUM IONIZED OUTPT DRAW ONLY (06/13/2024 1:05 PM HONING MACHINE OPERATOR) CALCIUM, IONIZED 6.6(H) 4.7 - 5.5 mg/dL 06/16/2024 11:32 AM HONING MACHINE OPERATOR [facility] Blood BLOOD SPECIMEN / Unknown Non-Lab Venipuncture / Unknown 06/13/2024 1:05 PM HONING MACHINE OPERATOR 06/13/2024 1:36 PM HONING MACHINE OPERATOR Hayden DENTON CHEMISTRY Final Result Performing Organization Address [facility] de Phone Number [facility] [address] [address], [place] [phone] * (ABNORMAL) VITAMIN D 25 (DEFICIENCY) (06/13/2024 1:05 PM HONING MACHINE OPERATOR) VITAMIN D,25-OH,TOTAL,IA 13(L) 30 - 100 ng/mL 06/15/2024 1:36 PM HONING MACHINE OPERATOR [facility] Comment: Vitamin D Status 25-OH Vitamin D: Deficiency: <20 ng/mL Insufficiency: 20 - 29 ng/mL Optimal: > or = 30 ng/mL For 25-OH Vitamin D testing on patients on D2-supplementation and patients for whom quantitation of D2 and D3 fractions is required, the QuestAssureD(TM) 25-OH VIT D, (D2,D3), LC/MS/MS is recommended: order code 90471 (patients >2yrs). See Note 1 Note 1 For additional information, please refer to http://education.[employer] Vision/faq/VBS906 (This link is being provided for informational/ educational purposes only.) Blood BLOOD SPECIMEN / Unknown Non-Lab Venipuncture / Unknown 06/13/2024 1:05 PM HONING MACHINE OPERATOR 06/13/2024 1:36 PM HONING MACHINE OPERATOR Hayden DENTON SEND OUTS Final Result Performing Organization Address [facility]/ZIP Co de Phone Number [facility] [address] [address], * PHOSPHORUS (06/13/2024 1:05 PM HONING MACHINE OPERATOR) PHOSPHATE ( PHOSPHORUS) 3.0 2.5 - 4.5 mg/dL 06/14/2024 9:59 AM HONING MACHINE OPERATOR [facility] Blood BLOOD SPECIMEN / Unknown Non-Lab Venipuncture / Unknown 06/13/2024 1:05 PM HONING MACHINE OPERATOR 06/13/2024 1:36 PM HONING MACHINE OPERATOR Hayden DENTON CHEMISTRY Final Result Performing Organization Address [facility]/ZIP Co de Phone Number [facility] [address] [address], * (ABNORMAL) PTH,INTACT (06/13/2024 1:05 PM HONING MACHINE OPERATOR) PARATHYROID HORMONE, INTACT 41 16 - 77 pg/mL 06/16/2024 11:10 AM HONING MACHINE OPERATOR [facility] Comment: Interpretive Guide Intact PTH Calcium ------- Normal Parathyroid Normal Normal Hypoparathyroidism Low or Low Normal Low Hyperparathyroidism Primary Normal or High High Secondary High Normal or Low Tertiary High High Non-Parathyroid Hypercalcemia Low or Low Normal High CALCIUM 13.9(HH) 8.6 - 10.2 mg/dL 06/16/2024 11:10 AM HONING MACHINE OPERATOR [facility] Comment:Verified by repeat a nalysis. Blood BLOOD SPECIMEN / Unknown Non-Lab Venipuncture / Unknown 06/13/2024 1:05 PM HONING MACHINE OPERATOR 06/13/2024 1:32 PM HONING MACHINE OPERATOR Hayden DENTON SEND OUTS Final Result Performing Organization Address [facility] de Phone Number [facility] [address] [address], [place] [phone] * OSMOLALITY (06/13/2024 1:05 PM HONING MACHINE OPERATOR) OSMOLALITY (SERUM) 294 278 - 305 mOsm/kg 06/17/2024 6:59 AM HONING MACHINE OPERATOR [facility] Blood BLOOD SPECIMEN / Unknown Non-Lab Venipuncture / Unknown 06/13/2024 1:05 PM HONING MACHINE OPERATOR 06/13/2024 1:36 PM HONING MACHINE OPERATOR Hayden DENTON CHEMISTRY Final Result Performing Organization Address [facility] Phone Number [facility] [address] [address], [place] [phone] * MAGNESIUM (06/13/2024 1:05 PM HONING MACHINE OPERATOR) Only the most recent of2 resultswithin the time period is included. MAGNESIUM 2.4 1.5 - 2.5 mg/dL 06/16/2024 3:19 PM HONING MACHINE OPERATOR [facility] Blood BLOOD SPECIMEN / Unknown Non-Lab Venipuncture / Unknown 06/13/2024 1:05 PM HONING MACHINE OPERATOR 06/13/2024 1:36 PM HONING MACHINE OPERATOR Hayden DENTON CHEMISTRY Final Result Performing Organization Address [facility] de Phone Number [facility] [address] [place] [address], * STAT CK, Total (06/13/2024 1:05 PM HONING MACHINE OPERATOR) Pathologist [facility] CK,TOTAL 110 26 - 192 IU/L 06/13/2024 10:21 PM HONING MACHINE OPERATOR [facility] Blood BLOOD SPECIMEN / Unknown Non-Lab Venipuncture / Unknown 06/13/2024 1:05 PM HONING MACHINE OPERATOR 06/13/2024 2:41 PM HONING MACHINE OPERATOR us Hayden DENTON CHEMISTRY Final Result [facility] [address] [place] [address], * (ABNORMAL) BASIC METABOLIC PANEL (06/13/2024 1:05 PM HONING MACHINE OPERATOR) Only the most recent of3 resultswithin the time period is included. Pathologist [facility] SODIUM 138 135 - 146 mmol/L 06/16/2024 3:19 PM HONING MACHINE OPERATOR [facility] POTASSIUM 2.6(LL) 3.5 - 5.3 mmol/L 06/16/2024 3:19 PM HONING MACHINE OPERATOR [facility] Comment:Verified by repeat a nalysis. CARBON DIOXIDE 44(H) 20 - 32 mmol/L 06/16/2024 3:19 PM HONING MACHINE OPERATOR [facility] Comment:Verified by repeat a nalysis. GLUCOSE 85 65 - 99 mg/dL 06/16/2024 3:19 PM HONING MACHINE OPERATOR [facility] Comment: Fasting reference interval CALCIUM 14.0(HH) 8.6 - 10.2 mg/dL 06/16/2024 3:19 PM HONING MACHINE OPERATOR [facility] Comment:Verified by repeat a nalysis. CREATININE 4.26(H) 0.50 - 0.97 mg/dL 06/16/2024 3:19 PM HONING MACHINE OPERATOR [facility] BUN/CREATININE RATIO 11 6 - 22 (calc) 06/16/2024 3:19 PM HONING MACHINE OPERATOR [facility] EGFR 13(L) > OR = 60 mL/min/1. 73m2 06/16/2024 3:19 PM HONING MACHINE OPERATOR [facility] UREA NITROGEN (BUN) 46(H) 7 - 25 mg/dL 06/16/2024 3:19 PM HONING MACHINE OPERATOR [facility] ELECTROLYTE BALANCE SEE NOTE 7 - 17 mmol/L (calc) 06/16/2024 3:19 PM HONING MACHINE OPERATOR [facility] Comment: Result not calculated because one or more required values exceed analytical limits. CHLORIDE <80(L) 98 - 110 mmol/L 06/16/2024 3:19 PM HONING MACHINE OPERATOR [facility] Comment:Verified by repeat a nalysis. Blood BLOOD SPECIMEN / Unknown Non-Lab Venipuncture / Unknown 06/13/2024 1:05 PM HONING MACHINE OPERATOR 06/13/2024 1:36 PM HONING MACHINE OPERATOR Hayden DENTON CHEMISTRY Final Result [facility] [address] [place] [address], * SCAN-LABORATORY REPORT (06/13/2024 12:00 AM HONING MACHINE OPERATOR) us Scanner OTHER Final Result * XR ANKLE 3 VIEWS LEFT (05/27/2024 3:04 PM HONING MACHINE OPERATOR) Anatomical Region Laterality Modality ANKLES, ANKLE L Computed Radiogr aphy 05/27/2024 3:44 PM HONING MACHINE OPERATOR Impressions 05/27/2024 3:44 PM HONING MACHINE OPERATOR 1. Negative left ankle series. Dictated by César Nuñez MD @ May 27 2024 3:44PM (Electronically Signed) [email or web address] Narrative 05/27/2024 3:44 PM HONING MACHINE OPERATOR For Patients: As a result of [...] @ May 27 2024 3:44PM (Electronically Signed) [email or web address] Gregg Corrales MD GENERAL IMAGING Final R esult * XR KNEE 3 VIEWS LEFT (05/27/2024 3:04 PM HONING MACHINE OPERATOR) Anatomical Region Laterality Modality KNEES, KNEE L Computed Radiogr aphy 05/27/2024 3:45 PM HONING MACHINE OPERATOR Impressions 05/27/2024 3:45 PM HONING MACHINE OPERATOR 1. Negative left knee series. Dictated by César Nuñez MD @ May 27 2024 3:45PM (Electronically Signed) [email or web address] Narrative 05/27/2024 3:45 PM HONING MACHINE OPERATOR For Patients: As a result of [...] @ May 27 2024 3:45PM (Electronically Signed) [email or web address] Stephon Corrales MD GENERAL IMAGING Final R esult * (ABNORMAL) CBC W PLT NO DIFF (05/14/2024 12:13 PM HONING MACHINE OPERATOR) WHITE BLOOD CELL COUNT 4.9 3.8 [...] BLOOD SPECIMEN / Unknown 05/14/2024 12:13 PM HONING MACHINE OPERATOR 05/14/2024 12:13 PM HONING MACHINE OPERATOR Narrative [facility] - 05/15/2024 3:17 AM HONING MACHINE OPERATOR FASTING:NO FASTING: NO Gregg Corrales MD HEMATOLOGY Final R esult [facility] [address] [place] [address], [facility] [address] [place] [address] * XR RIBS RIGHT AND PA CHEST MINIMUM 3 VIEWS (05/14/2024 12:08 PM HONING MACHINE OPERATOR) Anatomical Region Laterality Modality RIBS, RIBS R, CHEST Computed Rad iography 05/14/2024 3:38 PM HONING MACHINE OPERATOR Impressions 05/14/2024 3:38 PM HONING MACHINE OPERATOR Unremarkable chest and right ribs. Dictated by César Nuñez MD @ May 14 2024 3:38PM (Electronically Signed) [email or web address] Narrative 05/14/2024 3:38 PM HONING MACHINE OPERATOR For Patients: As a result of [...] @ May 14 2024 3:38PM (Electronically Signed) [email or web address] Gregg Corrales MD GENERAL IMAGING Final R esult * SCAN-ELECTROCARDIOGRAM EKG (04/23/2024 12:00 AM CDT) us Scanner OTHER Final Result * ANTI HCV (09/19/2021 12:39 PM CDT) HEPATITIS C ANTIBODY Non-React kajal Non-React kajal 09/19/2021 10:46 PM CDT [facility] Comment:Antibodies to HCV no t detected; does not exclude the possibility of exposure to HCV. Blood BLOOD SPECIMEN / Unknown Venipuncture / Unknown 09/19/2021 12:39 PM CDT 09/19/2021 12:39 PM CDT Gregg Corrales MD SEND OUTS Final R esult [facility] [address] [place] [address], [place] * ANTI HIV 1/2 (09/19/2021 12:39 PM CDT) HIV-1/HIV-2 ANTIBODY Non-Reacti ve Non-Reacti ve 09/19/2021 10:59 PM CDT [facility] [facility] Comment:HIV-1 p24 and HIV-1/ HIV-2 Ab not detected. Blood BLOOD SPECIMEN / Unknown Venipuncture / Unknown 09/19/2021 12:39 PM CDT 09/19/2021 12:39 PM CDT us Gregg Corrales MD SEND OUTS Final R esult [facility] [address] [place] [address], [place] from Last 3 Months or Most Recently Relevant to Health Maintenance Insurance MEDICARE PART A HB ONLY [facility] Member Subscriber Plan / Payer (Ef fective 2024-Present) Name:Lorraine Galindo Relation to Subscriber:Self Name:Lorraine Galindo Payer ID:Not on file Group ID:Not on file Type:Not on file Address: FOR [facility] INTERNAL TRACKING MEDICARE [place] ONLY MEDICARE [...] Code Status Discussion: Reviewed Preferences Care Teams Forging Dies Final Finisher Relationship Specialty [place] [address] [place] [address] PCP - General Family Practice 07/21/17 Neha Chavez [address] [place] [address] Primary Care RN Care Management Registered Nurse 08/13/17 [facility], [place] [address] [place] [address] 03/19/23 Robles Long MD [address] [place] [address] Surgery - General 08/20/23 Hayden Benavides MBBS [address] [place] [address] Nephrology 02/28/24
--- OUTSIDE RECORDS SUMMARY | 2024-07-08 19:37 | XMS_ITS | Clinical Summary ---
Author Organization [facility] Address [address] [place] [address] Care Team Providers Care Beef Lugger Name Role Phone Gregg Corrales MD Primary [...] Acute kidney injury 01/31/2023 Metabolic alkalosis 11/04/2022 [id number] kidney injury 11/04/2022 Myalgia, multiple sites 07/29/2022 [...] Department Care Team Description 07/01/2024 2:04 PM ENGLISH HORN PLAYER - 07/03/2024 1:06 PM ENGLISH HORN PLAYER Hospital Encounter [place] [address] [facility] [address] [place] [phone] Jesus Bobby MD Baxa, Alexander, DO Intractable nausea and vomiting; Gitelman syndrome; Hypokalemia; Hyponatremia; Hypercalcemia; BARBARA (acute kidney injury); Headache, unspecified headache type; Prolonged Q-T interval on ECG Discharge Disposition: Left Against Medical Advice 07/01/2024 Travel 06/30/2024 MyC Medical Advice [facility] [address] [facility] Explorer [facility] [address] [address] Lucia Mora 06/24/2024 Transcribe Orders GENERIC EXTERNAL DATA DEPARTMENT Provider, Generic External Data Hypokalemia (Primary Dx); Alkalosis 06/16/2024 5:01 PM ENGLISH HORN PLAYER - 06/20/2024 1:46 PM ENGLISH HORN PLAYER Hospital Encounter [place] [address] [facility] Surgical [address] [place] [address] Jamil Madison MD Sebring, Daniel L, MD Hypokalemic alkalosis (Primary Dx); Hypokalemia; Acute kidney injury; Knee injury, left, initial encounter Discharge Disposition: Home or Self Care 06/16/2024 Travel 06/13/2024 Medical Correspondence [facility] Information Management [address] [facility] [address] [place] [address] Scan, Non-Provider 05/29/2024 1:58 PM ENGLISH HORN PLAYER - 05/31/2024 5:58 PM ENGLISH HORN PLAYER Hospital Encounter [facility] [address] [place] [address] Jamil Carlin MD Bray, Scott, MD Hypokalemia; BARBARA (acute kidney injury); Hypercalcemia; Alkalosis; Gitelman disease Discharge Disposition: Left Against Medical Advice 05/29/2024 Travel 05/15/2024 2:33 PM ENGLISH HORN PLAYER - 05/19/2024 12:20 PM ENGLISH HORN PLAYER Hospital Encounter [facility] [address] [place] [address] Lucio Anthony MD Cabrera, Jesus F, MD Hypokalemia; Hypercalcemia; BARBARA (acute kidney injury) Discharge Disposition: Home or Self Care 05/15/2024 Travel 04/23/2024 11:58 AM CDT - 04/23/2024 7:05 PM CDT Emergency [facility] Emergency Dept [address] [place] [address] Jerry Maya MD Lindenbaum, Elan, MD Khan, [...] in an abandoned building, in an overnight retirement, or couch-surfing.) Yes 07/02/2024 Are you worried [...] on file Legal Sex Female 4:48 AM ENGLISH HORN PLAYER Gender Identity Not on file Sexual Orientation Not on file 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 Not on file Not on file Last Filed Vital Signs Vital Sign Reading Time Taken Comments Blood Pressure 123/71 07/03/2024 9:07 AM ENGLISH HORN PLAYER Pulse 87 07/03/2024 9:07 AM ENGLISH HORN PLAYER Temperature 36.7 C (98 F) 07/03/2024 9:07 AM ENGLISH HORN PLAYER Respiratory Rate 16 07/03/2024 9:07 AM ENGLISH HORN PLAYER Oxygen Saturation 99% 07/03/2024 9:07 AM ENGLISH HORN PLAYER Inhaled Oxygen Concentration - - Weight 49 kg (108 lb) 07/02/2024 5:51 PM ENGLISH HORN PLAYER Height 170.2 cm (5' 7) 07/01/2024 11:26 AM ENGLISH HORN PLAYER Body Mass Index 16.92 07/01/2024 11:26 AM ENGLISH HORN PLAYER Plan of Treatment Upcoming Encounters Date Type Department Care Team (Late st Contact Info) Description 07/09/2024 11:00 AM ENGLISH HORN PLAYER Virtual Visit [facility] [address] [facility] [address] [address] [place] [address] [place] [address] [place] [facility] [address] [place] [phone] [place], [place] [phone] Health Maintenance Due Date Last Done Comments [...] Diagnosis Comments MAGNESIUM Routine 07/03/2024 5:58 AM ENGLISH HORN PLAYER FERRITIN Routine 07/03/2024 5:58 AM ENGLISH HORN PLAYER IRON AND IRON BINDING CAPACITY Routine 07/03/2024 5:58 AM ENGLISH HORN PLAYER BASIC METABOLIC PANEL Routine 07/03/2024 5:58 AM ENGLISH HORN PLAYER CBC WITH PLATELETS Routine 07/03/2024 5: 58 AM ENGLISH HORN PLAYER POTASSIUM Timed 07/03/2024 5:58 AM ENGLISH HORN PLAYER POTASSIUM Timed 07/02/2024 11:55 PM ENGLISH HORN PLAYER POTASSIUM STAT 07/02/2024 5:36 PM ENGLISH HORN PLAYER POTASSIUM STAT 07/02/2024 12:13 PM ENGLISH HORN PLAYER BICARBONATE URINE Add-On 07/02/2024 9:5 3 AM ENGLISH HORN PLAYER OSMOLALITY Add-On 07/02/2024 8:30 AM ENGLISH HORN PLAYER MAGNESIUM STAT 07/02/2024 8:30 AM ENGLISH HORN PLAYER CBC WITH PLATELETS STAT 07/02/2024 8: 30 AM ENGLISH HORN PLAYER BASIC METABOLIC PANEL STAT 07/02/2024 8:30 AM ENGLISH HORN PLAYER MAGNESIUM Add-On 07/01/2024 11:34 PM ENGLISH HORN PLAYER BASIC METABOLIC PANEL STAT 07/01/2024 11:[address] ABDOMEN PELVIS W/O CONTRAST STAT 07/01/2024 9:17 PM ENGLISH HORN PLAYER FRACTIONAL EXCRETION OF SODIUM STAT 07/01/2024 9:07 PM ENGLISH HORN PLAYER OSMOLALITY, RANDOM URINE Add-On 025 9:07 PM ENGLISH HORN PLAYER POTASSIUM RANDOM URINE Add-On 9:07 PM ENGLISH HORN PLAYER CHLORIDE RANDOM URINE STAT 07/01/2024 9:07 PM ENGLISH HORN PLAYER FRACTIONAL EXCRETION OF SODIUM STAT 07/01/2024 9:07 PM ENGLISH HORN PLAYER ROUTINE UA WITH MICROSCOPIC REFLEX TO CULTURE STAT 07/01/2024 9:07 PM ENGLISH HORN PLAYER PHOSPHORUS Add-On 07/01/2024 7:18 PM ENGLISH HORN PLAYER BASIC METABOLIC PANEL STAT 07/01/2024 7:18 PM ENGLISH HORN PLAYER PTH RELATED PEPTIDE TEST STAT 025 7:18 PM ENGLISH HORN PLAYER PARATHYROID HORMONE INTACT STAT 07/01/2024 7:18 PM ENGLISH HORN PLAYER IONIZED CALCIUM STAT 07/01/2024 3:35 PM ENGLISH HORN PLAYER CBC WITH PLATELETS & DIFFERENTIAL STAT 07/01/2024 2:14 PM ENGLISH HORN PLAYER VITAMIN D DEFICIENCY SCREENING Add-On 07/01/2024 2:14 PM ENGLISH HORN PLAYER LIPASE STAT 07/01/2024 2:14 PM ENGLISH HORN PLAYER HEPATIC FUNCTION PANEL STAT 2:14 PM ENGLISH HORN PLAYER TROPONIN T, HIGH SENSITIVITY STAT 07/01/2024 2:14 PM ENGLISH HORN PLAYER MAGNESIUM STAT 07/01/2024 2:14 PM ENGLISH HORN PLAYER EXTRA BLUE TOP TUBE STAT 07/01/2024 2 :14 PM ENGLISH HORN PLAYER CBC WITH PLATELETS AND DIFFERENTIAL STAT 07/01/2024 2:14 PM ENGLISH HORN PLAYER EXTRA TUBE STAT 07/01/2024 2:14 PM ENGLISH HORN PLAYER HCG QUALITATIVE STAT 07/01/2024 2:14 PM ENGLISH HORN PLAYER BASIC METABOLIC PANEL STAT 07/01/2024 2:14 PM ENGLISH HORN PLAYER EKG 12-LEAD, TRACING ONLY STAT 07/01/2024 11:37 AM ENGLISH HORN PLAYER INFLUENZA A/B, RSV AND SARS-COV2 PCR STAT 07/01/2024 11:32 AM ENGLISH HORN PLAYER CBC WITH PLATELETS Routine 06/20/2024 7: 23 AM ENGLISH HORN PLAYER RENAL PANEL Routine 06/20/2024 7:23 AM ENGLISH HORN PLAYER MAGNESIUM Routine 06/20/2024 7:23 AM ENGLISH HORN PLAYER POTASSIUM RANDOM URINE Routine 5:13 PM ENGLISH HORN PLAYER CHLORIDE RANDOM URINE Routine 06/19/2024 5:13 PM ENGLISH HORN PLAYER SODIUM RANDOM URINE Routine 06/19/2024 5 :13 PM ENGLISH HORN PLAYER BASIC METABOLIC PANEL Routine 06/19/2024 6:36 AM ENGLISH HORN PLAYER PHOSPHORUS Routine 06/19/2024 6:36 AM ENGLISH HORN PLAYER MAGNESIUM Routine 06/19/2024 6:36 AM ENGLISH HORN PLAYER BASIC METABOLIC PANEL Routine 06/18/2024 7:04 PM ENGLISH HORN PLAYER EKG 12-LEAD, TRACING ONLY Routine 06/18/2024 11:14 AM ENGLISH HORN PLAYER CBC WITH PLATELETS Routine 06/18/2024 6: 08 AM ENGLISH HORN PLAYER BASIC METABOLIC PANEL Timed 06/18/2024 6:08 AM ENGLISH HORN PLAYER PHOSPHORUS Routine 06/18/2024 6:08 AM ENGLISH HORN PLAYER MAGNESIUM Routine 06/18/2024 6:08 AM ENGLISH HORN PLAYER BASIC METABOLIC PANEL Timed 06/17/2024 10:14 PM ENGLISH HORN PLAYER POTASSIUM Timed 06/17/2024 7:28 PM ENGLISH HORN PLAYER PHOSPHORUS Timed 06/17/2024 7:28 PM ENGLISH HORN PLAYER OSMOLALITY Routine 06/17/2024 1:48 PM ENGLISH HORN PLAYER POTASSIUM Timed 06/17/2024 1:48 PM ENGLISH HORN PLAYER BASIC METABOLIC PANEL Timed 06/17/2024 1:48 PM ENGLISH HORN PLAYER CREATININE RANDOM URINE Routine 06/17/20 1:39 PM ENGLISH HORN PLAYER POTASSIUM RANDOM URINE Routine 1:39 PM ENGLISH HORN PLAYER OSMOLALITY, RANDOM URINE Routine 024 1:39 PM ENGLISH HORN PLAYER CHLORIDE RANDOM URINE Routine 06/17/2024 1:39 PM ENGLISH HORN PLAYER SODIUM RANDOM URINE Routine 06/17/2024 1 :39 PM ENGLISH HORN PLAYER MR KNEE LEFT W/O CONTRAST Routine 06/17/2024 11:35 AM ENGLISH HORN PLAYER POTASSIUM Timed 06/17/2024 10:11 AM ENGLISH HORN PLAYER PHOSPHORUS Routine 06/17/2024 6:52 AM ENGLISH HORN PLAYER MAGNESIUM Routine 06/17/2024 6:52 AM ENGLISH HORN PLAYER CBC WITH PLATELETS Routine 06/17/2024 6: 52 AM ENGLISH HORN PLAYER BASIC METABOLIC PANEL Routine 06/17/2024 6:52 AM ENGLISH HORN PLAYER POTASSIUM Timed 06/17/2024 1:33 AM ENGLISH HORN PLAYER PHOSPHORUS Add-On 06/16/2024 7:31 PM ENGLISH HORN PLAYER MAGNESIUM Add-On 06/16/2024 7:31 PM ENGLISH HORN PLAYER BASIC METABOLIC PANEL STAT 06/16/2024 7:31 PM ENGLISH HORN PLAYER XR KNEE LEFT 3 VIEWS STAT 06/16/2024 6:16 PM ENGLISH HORN PLAYER CBC WITH PLATELETS & DIFFERENTIAL STAT 06/16/2024 5:53 PM ENGLISH HORN PLAYER CBC WITH PLATELETS AND DIFFERENTIAL STAT 06/16/2024 5:53 PM ENGLISH HORN PLAYER TROPONIN T, HIGH SENSITIVITY STAT 06/16/2024 5:53 PM ENGLISH HORN PLAYER EKG 12-LEAD, TRACING ONLY STAT 06/16/2024 5:40 PM ENGLISH HORN PLAYER PHOSPHORUS Timed 05/31/2024 5:[address] KNEE LEFT W/O CONTRAST Routine 05/31/2024 2:33 PM ENGLISH HORN PLAYER PARATHYROID HORMONE INTACT Routine 05/31/2024 8:35 AM ENGLISH HORN PLAYER PHOSPHORUS Routine 05/31/2024 8:35 AM ENGLISH HORN PLAYER MAGNESIUM Routine 05/31/2024 8:35 AM ENGLISH HORN PLAYER COMPREHENSIVE METABOLIC PANEL Routine 05/31/2024 8:35 AM ENGLISH HORN PLAYER AMMONIA Routine 05/31/2024 8:35 AM ENGLISH HORN PLAYER EKG 12-LEAD, TRACING ONLY Routine 05/30/2024 11:41 AM ENGLISH HORN PLAYER POTASSIUM Timed 05/30/2024 10:08 AM ENGLISH HORN PLAYER PHOSPHORUS Routine 05/30/2024 8:02 AM ENGLISH HORN PLAYER MAGNESIUM Routine 05/30/2024 8:02 AM ENGLISH HORN PLAYER CBC WITH PLATELETS Routine 05/30/2024 8: 02 AM ENGLISH HORN PLAYER BASIC METABOLIC PANEL Timed 05/30/2024 8:02 AM ENGLISH HORN PLAYER POTASSIUM Timed 05/30/2024 4:25 AM ENGLISH HORN PLAYER BASIC METABOLIC PANEL Timed 05/29/2024 10:00 PM ENGLISH HORN PLAYER PHOSPHORUS Add-On 05/29/2024 4:50 PM ENGLISH HORN PLAYER POTASSIUM STAT 05/29/2024 4:50 PM ENGLISH HORN PLAYER XR ANKLE LEFT G/E 3 VIEWS STAT 05/29/2024 4:02 PM ENGLISH HORN PLAYER XR KNEE LEFT 3 VIEWS STAT 05/29/2024 4:02 PM ENGLISH HORN PLAYER EXTRA RED TOP TUBE STAT 05/29/2024 2: 41 PM ENGLISH HORN PLAYER EXTRA BLUE TOP TUBE STAT 05/29/2024 2 :41 PM ENGLISH HORN PLAYER ALBUMIN RANDOM URINE QUANTITATIVE STAT 05/29/2024 2:41 PM ENGLISH HORN PLAYER ROUTINE UA WITH MICROSCOPIC STAT 05/29/2024 2:41 PM ENGLISH HORN PLAYER PROTEIN RANDOM URINE STAT 05/29/2024 2:41 PM ENGLISH HORN PLAYER CHLORIDE RANDOM URINE STAT 05/29/2024 2:41 PM ENGLISH HORN PLAYER POTASSIUM RANDOM URINE STAT 2:41 PM ENGLISH HORN PLAYER SODIUM RANDOM URINE STAT 05/29/2024 2 :41 PM ENGLISH HORN PLAYER EXTRA TUBE STAT 05/29/2024 2:41 PM ENGLISH HORN PLAYER TSH WITH FREE T4 REFLEX STAT 05/29/20 24 2:41 PM ENGLISH HORN PLAYER MAGNESIUM STAT 05/29/2024 2:41 PM ENGLISH HORN PLAYER COMPREHENSIVE METABOLIC PANEL STAT 05/29/2024 2:41 PM ENGLISH HORN PLAYER CBC WITH PLATELETS STAT 05/29/2024 2: 41 PM ENGLISH HORN PLAYER BLOOD GAS VENOUS STAT 05/29/2024 2:41 PM ENGLISH HORN PLAYER EKG 12-LEAD, TRACING ONLY STAT 05/29/2024 2:10 PM ENGLISH HORN PLAYER SODIUM TIMED URINE Routine 05/19/2024 12 :02 PM ENGLISH HORN PLAYER POTASSIUM TIMED URINE Routine 05/19/2024 12:00 PM ENGLISH HORN PLAYER PHOSPHORUS TIMED URINE Routine 11:59 AM ENGLISH HORN PLAYER MAGNESIUM TIMED URINE Routine 05/19/2024 11:58 AM ENGLISH HORN PLAYER CHLORIDE TIMED URINE Routine 05/19/2024 11:56 AM ENGLISH HORN PLAYER CALCIUM TIMED URINE Routine 05/19/2024 1 1:54 AM ENGLISH HORN PLAYER MAGNESIUM Routine 05/19/2024 7:41 AM ENGLISH HORN PLAYER CBC WITH PLATELETS Routine 05/19/2024 7: 41 AM ENGLISH HORN PLAYER RENAL PANEL Routine 05/19/2024 7:41 AM ENGLISH HORN PLAYER MAGNESIUM Timed 05/18/2024 12:53 PM ENGLISH HORN PLAYER POTASSIUM Timed 05/18/2024 12:53 PM ENGLISH HORN PLAYER PHOSPHORUS Timed 05/18/2024 12:53 PM ENGLISH HORN PLAYER CHLORIDE RANDOM URINE STAT 05/18/2024 10:25 AM ENGLISH HORN PLAYER POTASSIUM RANDOM URINE STAT 10:25 AM ENGLISH HORN PLAYER SODIUM RANDOM URINE STAT 05/18/2024 1 0:25 AM ENGLISH HORN PLAYER MAGNESIUM Routine 05/18/2024 6:51 AM ENGLISH HORN PLAYER CBC WITH PLATELETS Routine 05/18/2024 6: 51 AM ENGLISH HORN PLAYER RENAL PANEL Routine 05/18/2024 6:51 AM ENGLISH HORN PLAYER POTASSIUM Timed 05/17/2024 3:16 PM ENGLISH HORN PLAYER CBC WITH PLATELETS Routine 05/17/2024 6: 47 AM ENGLISH HORN PLAYER RENAL PANEL Routine 05/17/2024 6:47 AM ENGLISH HORN PLAYER MAGNESIUM Routine 05/17/2024 6:47 AM ENGLISH HORN PLAYER POTASSIUM Timed 05/17/2024 1:37 AM ENGLISH HORN PLAYER POTASSIUM Timed 05/16/2024 6:29 PM ENGLISH HORN PLAYER POTASSIUM Timed 05/16/2024 12:33 PM ENGLISH HORN PLAYER POTASSIUM Timed 05/16/2024 9:47 AM ENGLISH HORN PLAYER PHOSPHORUS Routine 05/16/2024 7:12 AM ENGLISH HORN PLAYER MAGNESIUM Routine 05/16/2024 7:12 AM ENGLISH HORN PLAYER BASIC METABOLIC PANEL Routine 05/16/2024 7:12 AM ENGLISH HORN PLAYER POTASSIUM Timed 05/16/2024 1:11 AM ENGLISH HORN PLAYER LACTIC ACID WHOLE BLOOD Routine 05/15/20 7:14 PM ENGLISH HORN PLAYER POTASSIUM Timed 05/15/2024 7:14 PM ENGLISH HORN PLAYER CBC WITH PLATELETS & DIFFERENTIAL STAT 05/15/2024 2:54 PM ENGLISH HORN PLAYER KETONE BETA-HYDROXYBUTYRATE QUANTITATIVE, RAPID Add-On 05/15/2024 2:54 PM ENGLISH HORN PLAYER MAGNESIUM STAT 05/15/2024 2:54 PM ENGLISH HORN PLAYER EXTRA BLUE TOP TUBE STAT 05/15/2024 2 :54 PM ENGLISH HORN PLAYER CBC WITH PLATELETS AND DIFFERENTIAL STAT 05/15/2024 2:54 PM ENGLISH HORN PLAYER HCG QUALITATIVE STAT 05/15/2024 2:54 PM ENGLISH HORN PLAYER EXTRA TUBE STAT 05/15/2024 2:54 PM ENGLISH HORN PLAYER BASIC METABOLIC PANEL STAT 05/15/2024 2:54 PM ENGLISH HORN PLAYER EKG 12-LEAD, TRACING ONLY STAT 05/15/2024 2:12 PM ENGLISH HORN PLAYER PARATHYROID HORMONE INTACT STAT 04/23/2024 6:18 PM [...] Maintenance Results * Potassium (07/03/2024 5:58 AM ENGLISH HORN PLAYER) Only the most recent of19 resultswithin the time period is included. Potassium 3.4 3.4 - 5.3 mmol/L 07/03/2024 6:51 AM ENGLISH HORN PLAYER LABORATORY Blood STRUCTURE OF RIGHT HAND / Unknown Venipuncture / Unknown 07/03/2024 5:58 AM ENGLISH HORN PLAYER 07/03/2024 6:16 AM ENGLISH HORN PLAYER Michel Dotson DO LAB - BLOOD ORDERABLES Fi nal Result Performing Organization Address City/[facility]/ZIP Co de Phone Number [facility] [address] (1st floor, no room number) [place] [phone] [place] [address] * Magnesium (07/03/2024 5:58 AM ENGLISH HORN PLAYER) Only the most recent of19 resultswithin the time period is included. Magnesium 1.8 1.7 - 2.3 mg/dL 07/03/2024 6:51 AM ENGLISH HORN PLAYER LABORATORY Blood STRUCTURE OF RIGHT HAND / Unknown Venipuncture / Unknown 07/03/2024 5:58 AM ENGLISH HORN PLAYER 07/03/2024 6:16 AM ENGLISH HORN PLAYER Michel Dotson DO LAB - BLOOD ORDERABLES Fi nal Result [facility] [address] (1st floor, no room number) [place] [phone] * Iron and iron binding capacity (07/03/2024 5:58 AM ENGLISH HORN PLAYER) Iron 67 37 - 145 ug/dL 07/03/2024 6:51 AM ENGLISH HORN PLAYER LABORATORY Iron Binding Capacity 284 240 - 430 ug/dL 07/03/2024 6:51 AM ENGLISH HORN PLAYER LABORATORY Iron Sat Index 24 15 - 46 % 07/03/2024 6:51 AM ENGLISH HORN PLAYER LABORATORY Blood STRUCTURE OF RIGHT HAND / Unknown Venipuncture / Unknown 07/03/2024 5:58 AM ENGLISH HORN PLAYER 07/03/2024 6:16 AM ENGLISH HORN PLAYER Mike Teran MD LAB - BLOOD ORDERABLES Final Result LABORATORY [facility] [address] [facility] Lab (1st floor, no room number) [place] [address] * Ferritin (07/03/2024 5:58 AM ENGLISH HORN PLAYER) Pathologist [facility] Ferritin 28 6 - 175 ng/mL 07/03/2024 11:52 AM ENGLISH HORN PLAYER U LABORATORY Blood STRUCTURE OF RIGHT HAND / Unknown Venipuncture / Unknown 07/03/2024 5:58 AM ENGLISH HORN PLAYER 07/03/2024 7:43 AM ENGLISH HORN PLAYER Mike Teran MD LAB - BLOOD ORDERABLES Final Result [facility] LABORATORY [facility] [address], [address] [place] [address] * (ABNORMAL) Basic metabolic panel (07/03/2024 5:58 AM ENGLISH HORN PLAYER) Only the most recent of17 resultswithin the time period is included. Sodium 142 135 - 145 mmol/L 07/03/2024 6:55 AM [facility] Potassium 3.4 3.4 - 5.3 mmol/L 07/03/2024 6:55 AM [facility] Chloride 100 98 - 107 mmol/L 07/03/2024 6:55 AM [facility] Carbon Dioxide (CO2) 31(H) 22 - 29 mmol/L 07/03/2024 6:55 AM ENGL[employer]ER LABORATORY Anion Gap 11 7 - 15 mmol/L 07/03/2024 6:55 AM ENGLISH H[employer]ER LABORATORY Urea Nitrogen 28.4(H) 6.0 - 20.0 mg/dL 07/03/2024 6:55 AM ENGL[employer]ER LABORATORY Creatinine 1.53(H) 0.51 - 0.95 mg/dL 07/03/2024 6:55 AM ENGLISH H[employer] PLAYER LABORATORY GFR Estimate 46(L) >60 mL/min/1.7 3m2 07/03/2024 6:55 AM ENGLISH H[employer] PLAYER LABORATORY Comment:eGFR calculated us2020 CKD-EPI equation. Calcium 9.1 8.8 - 10.4 mg/dL 07/03/2024 6:55 AM ENGLISH H[employer] PLAYER LABORATORY Comment:Reference intervals for this test were updated on 01/08/2024 to reflect our healthy population more accurately. There may be differences in the flagging of prior results with similar values performed with this method. Those prior results can be interpreted in the context of the updated reference intervals. Glucose 91 70 - 99 mg/dL 07/03/2024 6:55 AM [facility] Blood STRUCTURE OF RIGHT HAND / Unknown Venipuncture / Unknown 07/03/2024 5:58 AM ENGLISH H[employer] PLAYER 07/03/2024 6:16 AM ENGLISH HORN PLAYER Michel Dotson DO LAB - BLOOD ORDERABLES Fi nal Result LABORATORY [facility] [address] [facility] Lab (1st floor, no room number) [place] [address], [facility] * (ABNORMAL) CBC with platelets (07/03/2024 5:58 AM ENGLISH HORN PLAYER) Only the most recent of10 resultswithin the time period is included. WBC Count 6.8 4.0 - 11.0 10e3/uL 07/03/2024 6:22 AM ENGLISH H[employer]ER LABORATORY RBC Count 2.70(L) 3.80 - 5.20 10e6/uL 07/03/2024 6:22 AM ENGLISH [employer]ER LABORATORY Hemoglobin 7.3(L) 11.7 - 15.7 g/dL 07/03/2024 6:22 AM [facility] Hematocrit 22.0(L) 35.0 - 47.0 % 07/03/2024 6:22 AM ENGLISH H[employer]ER LABORATORY MCV 82 78 - 100 fL 07/03/2024 6:22 AM ENGLISH H[employer]ER LABORATORY MCH 27.0 26.5 - 33.0 pg 07/03/2024 6:22 AM ENGLISH [employer]ER LABORATORY MCHC 33.2 31.5 - 36.5 g/dL 07/03/2024 6:22 AM ENGLISH [employer]ER LABORATORY RDW 15.0 10.0 - 15.0 % 07/03/2024 6:22 AM ENGLISH [employer]ER LABORATORY Platelet Count 282 150 - 450 10e3/uL 07/03/2024 6:22 AM ENGLISH H[employer]ER LABORATORY Blood STRUCTURE OF RIGHT HAND / Unknown Venipuncture / Unknown 07/03/2024 5:58 AM ENGLISH HORN PLAYER 07/03/2024 6:16 AM ENGLISH H[employer] PLAYER Michel Dotson DO LAB - BLOOD ORDERABLES Fi nal Result Performing Organization Address City/[facility]/ZIP Co de Phone Number LABORATORY [facility] [address] Lab (1st floor, no room number) [place] [address] * Bicarbonate urine (07/02/2024 9:53 AM ENGLISH HORN PLAYER) Bicarbonate Urine 11 mmol/L 07/03/2024 3:18 AM ENGLISH HORN PLAYER [facility] Comment: INTERPRETIVE INFORMATION: Bicarbonate (HCO3), Urine Reference Interval has not been defined for Bicarbonate, Urine. See Compliance Statement B: [email or web address] Performed At: [facility] ([facility]) [facility] [place] [address] Medical Claims Analyst: REJI LOPEZ DO CLIA Number: [id number] Urine MID-STREAM URINE SPECIMEN / Unknown Non-blood Collection / Unknown 07/02/2024 9:53 AM ENGLISH HORN PLAYER 07/02/2024 9:56 AM ENGLISH HORN PLAYER Mike Teran MD LAB - URINE ORDERABLES Final Result [facility] Laboratories [address] [place] [address], [place] [phone] * (ABNORMAL) Osmolality (07/02/2024 8:30 AM ENGLISH H[employer] PLAYER) Only the most recent of2 resultswithin the time period is included. Osmolality Blood 299(H) 275 - 295 mmol/kg 07/02/2024 1:25 PM ENGLISH HORN PLAYER [facility] Blood STRUCTURE OF RIGHT HAND / Unknown Venipuncture / Unknown 07/02/2024 8:30 AM ENGLISH HORN PLAYER 07/02/2024 8:45 AM ENGLISH HORN PLAYER Narrative [facility] - 07/02/2024 1:25 PM ENGLISH HORN PLAYER Greater than 385 mmol/kg relates to stupor in hyperglycemia Greater than 400 mmol/kg can relate to seizures Greater than 420 mmol/kg can be lethal Serum Osmalar Gap: Normal <10 Larger suggest unmeasured substances present in serum (ethanol, methanol, isopropanol, mannitol, ethylene glycol). us Mike Teran MD LAB - BLOOD ORDERABLES Final Result Performing Organization Address City/State/[facility] Co de Phone Number [facility] LABORATORY [facility] Core Lab [address], [address] [place] [phone] * CT Abdomen Pelvis w/o Contrast (07/01/2024 9:17 PM ENGLISH HORN PLAYER) Anatomical Region Laterality Modality Abdomen/Pelvis, SUBRAD CT LUDA DY, UMP CT ABDOMEN PELVIS, RAD CT Computed Tomography 07/01/2024 9:17 PM ENGLISH HORN PLAYER Impressions 07/01/2024 10:02 PM ENGLISH H[employer] PLAYER IMPRESSION: 1. No acute findings or inflammatory changes in the abdomen or pelvis. No bowel obstruction. 2. Subacute right inferior pubic ramus fracture. Narrative 07/01/2024 10:02 PM ENGLISH HORN PLAYER EXAM: CT ABDOMEN PELVIS W/O CONTRAST LOCATION: [facility] DATE: 07/01/2024 INDICATION: Abdominal pain, nausea, and [...] EXAM: CT ABDOMEN PELVIS W/O CONTRAST LOCATION: [facility] DATE: 07/01/2024 INDICATION: Abdominal pain, nausea, and [...] inferior pubic ramus fracture. Nain Locke DO [facility] CT ORDERABLES Final Result * Fractional Excretion of Sodium (07/01/2024 9:07 PM [employer]) Creatinine Urine mg/dL 86.1 mg/dL 07/01/2024 9:36 PM [facility] Sodium Urine mmol/L 22 mmol/L 07/01/2024 9:36 PM [facility] %FENA 0.6 % 07/01/2024 9:36 PM [facility] [employer] [facility] Comment: Adult: <1 percent Indicates prerenal azotemia >3 percent Suggests acute tubular necrosis Neonates: <2.5 percent Suggest prerenal azotemia >2.5 percent Suggest acute tubular necrosis Urine MID-STREAM URINE SPECIMEN / Unknown Non-blood Collection / Unknown 07/01/2024 9:07 PM [employer] 07/01/2024 9:11 PM [employer] Nain Locke DO LAB - URINE ORDERABLES Final R esult LABORATORY [facility] [address] [facility] (1st floor, no room number) [place] [id number] * (ABNORMAL) UA with Microscopic reflex to Culture (07/01/2024 9:07 PM [employer]) Color Urine Straw Colorless, Straw, Light Yellow, Yellow 07/01/2024 9:19 PM [employer] [facility] Appearance Urine Clear Clear 07/01/19 9:19 PM [employer] [facility] Glucose Urine Negative Negative mg/dL 07/01/2024 9:19 PM [employer] [facility] Bilirubin Urine Negative Negative 9:19 PM [employer] [facility] Ketones Urine Negative Negative mg/dL 07/01/2024 9:19 PM [employer] [facility] [facility] Specific Meally Urine 1.016 1.003 - 1.035 07/01/2024 9:19 PM [employer] [facility] Blood Urine Negative Negative 07/01/2024 9:19 PM [facility] pH Urine 6.5 5.0 - 7.0 07/01/2024 9:19 PM [facility] Protein Albumin Urine 30(A) Negative mg/dL 07/01/2024 9:19 PM [facility] Urobilinogen Urine Normal Normal, 2.0 mg/dL 07/01/2024 9:19 PM [facility] Nitrite Urine Negative Negative 07/01/2024 9:19 PM [facility] Leukocyte Esterase Urine Negative Negative 07/01/2024 9:19 PM [facility] Mucus Urine Present(A) None Seen /LPF 07/01/2024 9:19 PM [facility] RBC Urine 1 <=2 /HPF 07/01/2024 9:19 PM [facility] WBC Urine 1 <=5 /HPF 07/01/2024 9:19 PM [facility] Squamous Epithelials Urine 1 <=1 /HPF 07/01/2024 9:19 PM [facility] Urine MID-STREAM URINE SPECIMEN / Unknown Non-blood Collection / Unknown 07/01/2024 9:07 PM [employer] 07/01/2024 9:11 PM [employer] Narrative [facility] LABORATORY - 07/01/2024 9:19 PM [employer] Urine Culture not indicated Nain Locke DO LAB - URINE ORDERABLES Final R esult LABORATORY [facility] Lab [address] [facility] Lab (1st floor, no room number) [place] [address] * Potassium random urine (07/01/2024 9:07 PM [employer]) Only the most recent of5 resultswithin the time period is included. Potassium Urine 43.8 mmol/L 11:52 AM [facility] Comment:The reference ranges have not been established in urine potassium. The results should be integrated into the clinical context for interpretation. Urine MID-STREAM URINE SPECIMEN / Unknown Non-blood Collection / Unknown 07/01/2024 9:07 PM [employer] 07/01/2024 9:11 PM [employer] Mike Teran MD LAB - URINE ORDERABLES Final Result [facility] LAB[facility]AT[facility] Core Lab [address], [address] [place] [address] * Osmolality urine (07/01/2024 9:07 PM [employer]) Only the most recent of2 resultswithin the time period is included. Osmolality Urine 311 100 - 1,200 mmol/kg 07/02/2024 11:01 AM [facility] [facility] Urine MID-STREAM URINE SPECIMEN / Unknown Non-blood Collection / Unknown 07/01/2024 9:07 PM [employer] 07/01/2024 9:11 PM [facility] Narrative [facility] LAB[facility]ORY - 07/02/2024 11:01 AM [employer] Reference Ranges depend on patient's hydration status and renal function. Neonates: 75-300 mmol/kg 2 years and older, random specimens: 100-1200 mmol/kg; Greater than 850 mmol/kg after 12 hour fluid restriction Urine/serum osmolality ratio: 2 years and older: 1.0-3.0; 3.0-4.7 after 12 hour fluid restriction us Mike Teran MD LAB - URINE ORDERABLES Final Result LABORATORY [facility] Core Lab [address], [address] [phone] * Chloride random urine (07/01/2024 9:07 PM [employer]) Only the most recent of5 resultswithin the time period is included. Chloride Urine mmol/L <20 mmol/L 07/02/2024 11:34 AM [facility] Comment:The reference ranges have not been established in urine chloride. The results should be integrated into the clinical context for interpretation. Urine MID-STREAM URINE SPECIMEN / Unknown Non-blood Collection / Unknown 07/01/2024 9:07 PM [employer] 07/01/2024 9:11 PM [employer] Mike Teran MD LAB - URINE ORDERABLES Final Result Performing Organization Address [facility] Co de Phone Number LABORATORY [facility] Core Lab [address], [address] [phone] * PTH Related Peptide Test (07/01/2024 7:18 PM [employer]) Parathyroid Hormone-Related Peptide (PTHRP) 1.6 < or = 4.2 pmol/L 07/07/2024 2:[address] [facility] Comment: ADDITIONAL INFORMATION This test was developed and its performance characteristics determined by [facility] in a manner consistent with CLIA requirements. This test has not been cleared or approved by the U.S. Food and Drug Administration. Test Performed by: [facility] - [facility] [address] [place] [address] Circular Shear Operator: Alvaro Renner Ph.D.; CLIA# [id number] Blood STRUCTURE OF RIGHT UPPER LIMB / Unknown Venipuncture / Unknown 07/01/2024 7:18 PM [employer] 07/01/2024 7:27 PM [employer] Nain Locke DO LAB - BLOOD ORDERABLES Final R esult [facility] [address] [place] [address], [facility] [phone] * Phosphorus (07/01/2024 7:18 PM [employer]) Only the most recent of12 resultswithin the time period is included. Phosphorus 3.3 2.5 - 4.5 mg/dL 07/01/2024 9:41 PM [facility] Blood STRUCTURE OF RIGHT UPPER LIMB / Unknown Venipuncture / Unknown 07/01/2024 7:18 PM [employer] 07/01/2024 7:27 PM [employer] Nain Locke DO LAB - BLOOD ORDERABLES Final R community health Performing Organization Address [facility] de Phone Number [facility] Lab [address] [employer] Lab (1st floor, no room number) [place] [phone] [place] [address] * Parathyroid Hormone Intact (07/01/2024 7:18 PM [employer]) Only the most recent of3 resultswithin the time period is included. Parathyroid Hormone Intact 28 15 - 65 pg/mL 07/01/2024 7:51 PM [facility] Blood STRUCTURE OF RIGHT UPPER LIMB / Unknown Venipuncture / Unknown 07/01/2024 7:18 PM [employer] 07/01/2024 7:27 PM [employer] Narrative LABORATORY - 07/01/2024 7:51 PM [employer] This result was obtained with the [employer] PTH STAT assay. This reference range differs from PTH assays used in other [facility] laboratories. Nain Locke DO LAB - BLOOD ORDERABLES Final R esult Performing Organization Address City/[facility]/ZIP Co de Phone Number [facility] Acute Care Lab [address] Lab (1st floor, no room number) [place] [address] * (ABNORMAL) Ionized Calcium (07/01/2024 3:35 PM [employer]) [facility] Calcium Ionized Whole Blood 5.6(H) 4.4 - 5.2 mg/dL 07/01/2024 3:45 PM [facility] Blood VENOUS LINE / Unknown Venipuncture / Unknown 07/01/2024 3:35 PM [employer] 07/01/2024 3:42 PM [employer] Jesus Bobby MD LAB - BLOOD ORDERABLES F inal Result LABORATORY [facility] Lab [address] [employer] Lab (1st floor, no room number) [place] [address] * Extra Blue Top Tube (07/01/2024 2:14 PM [employer]) Only the most recent of4 resultswithin the time period is included. [facility] Hold Specimen JIC 07/01/2024 3:31 PM [facility] Blood STRUCTURE OF RIGHT UPPER LIMB / Unknown Venipuncture / Unknown 07/01/2024 2:14 PM [employer] 07/01/2024 2:20 PM [employer] Jesus Bobby MD LAB - BLOOD ORDERABLES F inal Result LABORATORY [facility] Lab [address] [employer] Lab (1st floor, no room number) [place] [address] * (ABNORMAL) CBC with platelets and differential (07/01/2024 2:14 PM [employer]) Only the most recent of4 resultswithin the time period is included. [facility] WBC Count 9.1 4.0 - 11.0 10e3/uL 07/01/2024 2:23 PM [facility] RBC Count 4.12 3.80 - 5.20 10e6/uL 07/01/2024 2:23 PM [facility] [facility] Hemoglobin 11.1(L) 11.7 - 15.7 g/dL 07/01/2024 2:23 PM [facility] [facility] Hematocrit 32.0(L) 35.0 - 47.0 % 07/01/2024 2:23 PM [facility] [facility] MCV 78 78 - 100 fL 07/01/2024 2:23 PM [facility] MCH 26.9 26.5 - 33.0 pg 07/01/2024 2:23 PM [facility] [facility] MCHC 34.7 31.5 - 36.5 g/dL 07/01/2024 2:23 PM [facility] RDW 14.0 10.0 - 15.0 % 07/01/2024 2:23 PM [facility] Platelet Count 531(H) 150 - 450 10e3/uL 07/01/2024 2:23 PM [facility] % Neutrophils 70 % 07/01/2024 2:23 PM [facility] % Lymphocytes 20 % 07/01/2024 2:23 PM [facility] % Monocytes 7 % 07/01/2024 2:23 PM [facility] % Eosinophils 1 % 07/01/2024 2:23 PM [facility] % Basophils 1 % 07/01/2024 2:23 PM [facility] % Immature Granulocytes 0 % 07/01/2024 2:23 PM [facility] NRBCs per 100 WBC 0 <1 /100 025 2:23 PM [facility] Absolute Neutrophils 6.4 1.6 - 8.3 10e3/uL 07/01/2024 2:23 PM [facility] Absolute Lymphocytes 1.8 0.8 - 5.3 10e3/uL 07/01/2024 2:23 PM [facility] [facility] Absolute Monocytes 0.6 0.0 - 1.3 10e3/uL 07/01/2024 2:23 PM [facility] [facility] Absolute Eosinophils 0.1 0.0 - 0.7 10e3/uL 07/01/2024 2:23 PM [facility] [facility] Absolute Basophils 0.1 0.0 - 0.2 10e3/uL 07/01/2024 2:23 PM [facility] [facility] Absolute Immature Granulocytes 0.0 <=0.4 10e3/uL 07/01/2024 2:23 PM [facility] Absolute NRBCs 0.0 10e3/uL 07/01/2024 2:23 PM [facility] [facility] Blood STRUCTURE OF RIGHT UPPER LIMB / Unknown Venipuncture / Unknown 07/01/2024 2:14 PM [employer] 07/01/2024 2:20 PM [employer] Jesus Bobby MD LAB - BLOOD ORDERABLES F inal Result Performing Organization Address City/[facility]/ZIP Co de Phone Number [facility] Care Lab [address] Lab (1st floor, no room number) [place] [address] * Troponin T, High Sensitivity (07/01/2024 2:14 PM [employer]) Only the most recent of3 resultswithin the time period is included. Troponin T, High Sensitivity <6 <=14 ng/L 07/01/2024 2:45 PM [facility] Comment: Either a High Sensitivity Troponin [...] Unknown Venipuncture / Unknown 07/01/2024 2:14 PM [employer] 07/01/2024 2:20 PM [employer] Jesus Bobby MD LAB - BLOOD ORDERABLES F inal Result [facility] Care Lab [address] Lab (1st floor, no room number) [place] [address] * Vitamin D Deficiency (07/01/2024 2:14 PM [employer]) Vitamin D, Total (25-Hydroxy) 20 20 - 50 ng/mL 07/02/2024 4:14 AM [facility] Comment:optimum levels Blood STRUCTURE OF RIGHT UPPER LIMB / Unknown Venipuncture / Unknown 07/01/2024 2:14 PM [employer] 07/01/2024 2:20 PM [employer] Narrative [facility] LAB[facility]AT[facility] - 07/02/2024 4:14 AM [employer] Season, race, dietary intake, and treatment affect the concentration of 20-uuqnzgb-Ixrmebs D. Values may decrease during winter months and increase during summer months. Vitamin D determination is routinely performed by an immunoassay specific for 25 hydroxyvitamin D3. If an individual is on vitamin D2(ergocalciferol) supplementation, please specify 25 OH vitamin D2 and D3 level determination by LCMSMS test [id number]. Nain Locke DO LAB - BLOOD ORDERABLES Final R esult U LABORATORY [facility] Core Lab [address], [address] [place] [address] * Lipase (07/01/2024 2:14 PM [employer]) Lipase 29 13 - 60 U/L 07/01/2024 2:58 PM [facility] Blood STRUCTURE OF RIGHT UPPER LIMB / Unknown Venipuncture / Unknown 07/01/2024 2:14 PM [employer]ER 07/01/2024 2:20 PM [employer] Jesus Bobby MD LAB - BLOOD ORDERABLES F inal Result LABORATORY [facility] Lab [address] [facility] Lab (1st floor, no room number) [place] [address] * (ABNORMAL) Hepatic panel (07/01/2024 2:14 PM [employer]) Protein Total 8.8(H) 6.4 - 8.3 g/dL 07/01/2024 2:58 PM [facility] Albumin 5.6(H) 3.5 - 5.2 g/dL 07/01/2024 2:58 PM [facility] Bilirubin Total 0.3 <=1.2 mg/dL 07/01/2024 2:58 PM [facility] [facility] Alkaline Phosphatase 84 40 - 150 U/L 07/01/2024 2:58 PM [facility] [facility] AST 18 0 - 45 U/L 07/01/2024 2:58 PM [facility] ALT 9 0 - 50 U/L 07/01/2024 2:58 PM [facility] Bilirubin Direct <0.20 0.00 - 0.30 mg/dL 07/01/2024 2:58 PM [facility] [facility] Blood STRUCTURE OF RIGHT UPPER LIMB / Unknown Venipuncture / Unknown 07/01/2024 2:14 PM [employer]ER 07/01/2024 2:20 PM [employer] Jesus Bobby MD LAB - BLOOD ORDERABLES F inal Result Performing Organization Address City/[facility]/ZIP Co de Phone Number [facility] Lab [address] Lab (1st floor, no room number) [place] [phone] [place] [address] * HCG QUALitative (blood) (07/01/2024 2:14 PM [employer]) Only the most recent of2 resultswithin the time period is included. hCG Serum Qualitative Negative Negative RUKHSANA 07/01/2024 2:50 PM [facility] [facility] Comment:This test is for scr eening purposes. Results should be interpreted along with the clinical picture. Confirmation testing is available if warranted by ordering [id number], HCG Quantitative . Blood STRUCTURE OF RIGHT UPPER LIMB / Unknown Venipuncture / Unknown 07/01/2024 2:14 PM [employer]ER 07/01/2024 2:20 PM [employer] Jesus Bobby MD LAB - BLOOD ORDERABLES F inal Result [facility] Lab [address] Lab (1st floor, no room number) [place] [address] * EKG 12 lead (07/01/2024 11:37 AM [employer]) Only the most recent of7 resultswithin the time period is included. Systolic Blood Pressure mmHg RADIOLOGY RESULTS Diastolic Blood Pressure mmHg RADIOLOGY RESULTS Ventricular Rate 88 BPM RAD IOLOGY RESULTS Atrial Rate 88 BPM RADIOLOG Y RESULTS CO Interval 136 ms RADIOLOG Y RESULTS QRS Duration 90 ms RADIOLO GY RESULTS QT 536 ms RADIOLOGY RESULTS QTc 648 ms RADIOLOGY RESULTS P [place] 70 degrees RADIOLOGY RESULTS R AXIS 84 degrees RADIOLOGY RESULTS T [place] 78 degrees RADIOLOGY RESULTS Interpretation ECG Sinus rhythm Left ventricular hypertrophy with repolarization abnormality ( Sokolow-Hernandez ) Marked ST abnormality, possible anterior subendocardial injury Prolonged QT Abnormal ECG When compared with ECG of 18-Jun-2024 11:14, Significant changes have occurred Unconfirmed report - interpretation of this ECG is computer generated - see medical record for final interpretation Confirmed by - EMERGENCY ROOM, PHYSICIAN ([id number]), photographic editor NETTIE KIM ([id number]) on 07/01/2024 12:28:51 PM RADIOLOGY RESULTS 07/01/2024 11:3 7 AM [employer] 07/01/2024 12:28 PM [employer] Jesus Bobby MD ECG ORDERABLES Edited R esult - Final RADIOLOGY RESULTS * Influenza A/B, RSV and SARS-CoV2 PCR (COVID-19) Nasopharyngeal (07/01/2024 11:32 AM EN[employer]ER) [facility] Influenza A PCR Negative Negative 07/01/2024 12:22 PM [facility] Influenza B PCR Negative Negative 07/01/2024 12:22 PM [facility] [facility] RSV PCR Negative Negative 07/01/2024 12:22 PM [facility] SARS CoV2 PCR Negative Negative 07/01/2024 12:22 PM [facility] Comment:NEGATIVE: SARS-CoV-2 (COVID-19) RNA not detected, presumed negative. Swab NASOPHARYNGEAL STRUCTURE / Unknown Non-blood Collection / Unknown 07/01/2024 11:32 AM [employer]ER 07/01/2024 11:39 AM [employer] Narrative LABORATORY - 07/01/2024 12:22 PM [employer] Testing was performed using the Xpert Xpress CoV2/Flu/RSV Assay on the [employer] Games[employer]pert Instrument. This test should be ordered for [...] management. This test was validated by the [facility]. These laboratories are certified under the Clinical Laboratory Improvement Amendments of 1988 (CLIA-88) as qualified to perfom high complexity laboratory testing. Jesus Bobby MD LAB - MICRO GENERAL ORDJl [place] Final Result LABORATORY [facility] Lab [address] [facility] Lab (1st floor, no room number) [place] [address] * (ABNORMAL) Renal panel (06/20/2024 7:23 AM [employer]) Only the most recent of4 resultswithin the time period is included. Sodium 145 135 - 145 mmol/L 06/20/2024 9:35 AM [facility] Potassium 4.5 3.4 - 5.3 mmol/L 06/20/2024 9:35 AM [facility] Chloride 105 98 - 107 mmol/L 06/20/2024 9:35 AM [facility] Carbon Dioxide (CO2) 27 22 - 29 mmol/L 06/20/2024 9:35 AM [facility] Anion Gap 13 7 - 15 mmol/L 06/20/2024 9:35 AM [facility] Glucose 82 70 - 99 mg/dL 06/20/2024 9:35 AM [facility] Urea Nitrogen 26.8(H) 6.0 - 20.0 mg/dL 06/20/2024 9:35 AM [facility] Creatinine 2.09(H) 0.51 - 0.95 mg/dL 06/20/2024 9:35 AM [facility] GFR Estimate 31(L) >60 mL/min/1.7 3m2 06/20/2024 9:35 AM [facility] [facility] Comment:eGFR calculated us2020 CKD-EPI equation. Calcium 9.9 8.8 - 10.4 mg/dL 06/20/2024 9:35 AM [facility] [facility] Comment:Reference intervals for this test were updated on 01/08/2024 to reflect our healthy population more accurately. There may be differences in the flagging of prior results with similar values performed with this method. Those prior results can be interpreted in the context of the updated reference intervals. Albumin 3.9 3.5 - 5.2 g/dL 06/20/2024 9:35 AM [facility] Phosphorus 2.9 2.5 - 4.5 mg/dL 06/20/2024 9:35 AM [facility] Blood STRUCTURE OF LEFT HAND / Unknown Venipuncture / Unknown 06/20/2024 7:23 AM [employer]ER 06/20/2024 7:47 AM [employer] Javon Devine MD LAB - BLOOD ORDERABLES Final Res ult Performing Organization Address City/[facility]/ZIP Co de Phone Number [facility] Lab [address] Lab (1st floor, no room number) [place] [phone] * Sodium random urine (06/19/2024 5:13 PM [employer]) Only the most recent of4 resultswithin the time period is included. Sodium Urine mmol/L 121 mmol/L 06/19/2024 5:45 PM [facility] [facility] Comment:The reference ranges have not been established in urine sodium. The results should be integrated into the clinical context for interpretation. Urine URINE SPECIMEN OBTAINED BY CLEAN CATCH PROCEDURE / Unknown Non-blood Collection / Unknown 06/19/2024 5:13 PM [employer]ER 06/19/2024 5:19 PM [employer] Azar Umanzor MD LAB - URINE ORDERABLES Final Res ult Performing Organization Address City/[facility]/ZIP Co de Phone Number [facility] Lab [address] Lab (1st floor, no room number) [place] [address] * Creatinine random urine (06/17/2024 1:39 PM [employer]) Creatinine Urine mg/dL 32.8 mg/dL 06/17/2024 2:08 PM [facility] Comment:The reference ranges have not been established in urine creatinine. The results should be integrated into the clinical context for interpretation. Urine URINE SPECIMEN OBTAINED BY CLEAN CATCH PROCEDURE / Unknown Non-blood Collection / Unknown 06/17/2024 1:39 PM [employer]ER 06/17/2024 1:45 PM EN[employer]ER us Mike Teran MD LAB - URINE ORDERABLES Final Result [facility] Acute [facility] Lab [address] (1st floor, no room number) [place] [address] * MR Knee Left w/o Contrast (06/17/2024 11:35 AM EN[employer]ER) Anatomical Region Laterality Modality Left Knee, SUBRAD MR MSK, UMP MR MSK, RAD MR Magnetic Resonance Impressions 06/17/2024 11:59 AM [employer] IMPRESSION: 1. Subtle soft tissue edema superficial to an intact tibial collateral ligament. Correlate clinically for a low-grade sprain. 2. Nonspecific focus of bone marrow edema along the posterior aspect of the lateral femoral condyle. Correlate for bone contusion. 3. The anterior and posterior cruciate ligaments, lateral supporting structures, and bilateral menisci are intact. JESSICA EDWARD MD Narrative 06/17/2024 11:59 AM [employer] EXAMINATION: MRI of the left knee without [...] intact and normal in appearance. Procedure Note Jesisca Edward MD - 06/17/2024 EXAMINATION: MRI of [...] Knee Left 3 Views (06/16/2024 6:16 PM [employer]) Only the most recent of2 resultswithin the time period is included. Anatomical Region Laterality Modality Thigh, Knee, Leg Left Digital Radiogr aphy 06/16/2024 6:16 PM [employer] Impressions 06/16/2024 6:36 PM [employer] IMPRESSION: Normal left knee joint spacing and alignment. No sizable effusion. Negative for acute fracture. Narrative 06/16/2024 6:36 PM [employer] EXAM: XR KNEE LEFT 3 VIEWS LOCATION: [facility] DATE: 06/16/2024 INDICATION: fall, medial pain COMPARISON: None. Procedure Note Stephon Farias MD - 06/16/2024 EXAM: XR KNEE LEFT 3 VIEWS LOCATION: [facility] DATE: 06/16/2024 INDICATION: fall, medial pain COMPARISON: None. IMPRESSION: Normal left knee joint spacing and alignment. No sizable effusion.Negative for acute fracture. Jamil Madison MD IMG DIAGNOSTIC IMAGING OR DERABLES Final Result * CT Knee Left w/o Contrast (05/31/2024 2:33 PM [employer]) Anatomical Region Laterality Modality Left Knee, SUBRAD CT MSK, UMP CT MSK, RAD CT Computed Tomography 05/31/2024 2:33 PM [employer] Impressions 05/31/2024 2:41 PM [employer] IMPRESSION: 1. No evidence for acute left knee fracture. Normal joint spacing and alignment. 2. Trace joint effusion. Narrative 05/31/2024 2:41 PM [employer] EXAM: CT KNEE LEFT W/O CONTRAST LOCATION: [facility] DATE: 05/31/2024 INDICATION: syncope with knee pain, [...] EXAM: CT KNEE LEFT W/O CONTRAST LOCATION: [facility] DATE: 05/31/2024 INDICATION: syncope with knee pain, [...] 2. Trace joint effusion. Emeterio Solorzano MD [facility] CT ORDERABLES Final Result * (ABNORMAL) Comprehensive metabolic panel (05/31/2024 8:35 AM [facility]) Only the most recent of2 resultswithin the time period is included. Sodium 141 135 - 145 mmol/L 05/31/2024 9:07 AM [facility] Potassium 4.2 3.4 - 5.3 mmol/L 05/31/2024 9:07 AM [facility] Carbon Dioxide (CO2) 35(H) 22 - 29 mmol/L 05/31/2024 9:07 AM [facility] Anion Gap 10 7 - 15 mmol/L 05/31/2024 9:07 AM [facility] Urea Nitrogen 31.3(H) 6.0 - 20.0 mg/dL 05/31/2024 9:07 AM [facility] Creatinine 1.99(H) 0.51 - 0.95 mg/dL 05/31/2024 9:07 AM [facility] GFR Estimate 33(L) >60 mL/min/1.7 3m2 05/31/2024 9:07 AM [facility] Comment:eGFR calculated usin 2020 CKD-EPI equation. Calcium 10.2 8.8 - 10.4 mg/dL 05/31/2024 9:07 AM [facility] Comment:Reference intervals for this test were updated on 01/08/2024 to reflect our healthy population more accurately. There may be differences in the flagging of prior results with similar values performed with this method. Those prior results can be interpreted in the context of the updated reference intervals. Chloride 96(L) 98 - 107 mmol/L 05/31/2024 9:07 AM [facility] Glucose 126(H) 70 - 99 mg/dL 05/31/2024 9:07 AM [facility] Alkaline Phosphatase 75 40 - 150 U/L 05/31/2024 9:07 AM [facility] AST 22 0 - 45 U/L 05/31/2024 9:07 AM [facility] ALT 12 0 - 50 U/L 05/31/2024 9:07 AM [facility] Protein Total 6.8 6.4 - 8.3 g/dL 05/31/2024 9:07 AM [facility] Albumin 4.1 3.5 - 5.2 g/dL 05/31/2024 9:07 AM [facility] Bilirubin Total <0.2 <=1.2 mg/dL 05/31/2024 9:07 AM [facility] Blood STRUCTURE OF LEFT HAND / Unknown Venipuncture / Unknown 05/31/2024 8:35 AM [employer] 05/31/2024 8:44 AM [employer] us Sean Freeman MD LAB - BLOOD ORDERABLES Final Result LABORATORY [facility] Lab [address] Lab (1st floor, no room number) [place] [address] * Ammonia (05/31/2024 8:35 AM [employer]) Ammonia 20 11 - 51 umol/L 05/31/2024 9:04 AM [facility] Blood STRUCTURE OF LEFT HAND / Unknown Venipuncture / Unknown 05/31/2024 8:35 AM [employer] 05/31/2024 8:44 AM [employer] Sean Freeman MD LAB - BLOOD ORDERABLES Final Result [facility] Acute Care Lab [address] Lab (1st floor, no room number) [place] [address], [facility] * XR Ankle Left G/E 3 Views (05/29/2024 4:02 PM [employer]) Anatomical Region Laterality Modality Leg, Ankle, Foot Left Digital Radiogr aphy Impressions 05/29/2024 4:09 PM [employer] IMPRESSION: No fracture. Intact ankle mortise and distal syndesmosis. HUSEYIN MCKEON MD SYSTEM ID: [id number] Narrative 05/29/2024 4:09 PM [employer] XR ANKLE LEFT G/E 3 VIEWS 05/29/2024 4:02 PM HISTORY: fall, ankle pain COMPARISON: None. Procedure Note Huseyin Mckeon MD - 05/29/2024 XR ANKLE LEFT G/E 3 VIEWS 05/29/2024 4:02 PM HISTORY: fall, ankle pain COMPARISON: None. IMPRESSION: No fracture. Intact ankle mortise and distal syndesmosis. HUSEYIN MCKEON MD SYSTEM ID: [id number] us Jamil Carlin MD IMG DIAGNOSTIC IMAGING OR DERABLES Final Result * Extra Red Top Tube (05/29/2024 2:41 PM [employer]) Only the most recent of2 resultswithin the time period is included. Hold Specimen [facility] 05/29/2024 4:16 PM [facility] Blood BLOOD SPECIMEN / Unknown Venipuncture / Unknown 05/29/2024 2:41 PM [employer] 05/29/2024 3:08 PM [employer] us Jamil Carlin MD LAB - BLOOD ORDERABLES Fi nal Result [facility] Lab [address] Lab (1st floor, no room number) [place] [address], [facility] * TSH with free T4 reflex (05/29/2024 2:41 PM [employer]) TSH 1.95 0.30 - 4.20 uIU/mL 05/29/2024 3:37 PM [facility] Blood BLOOD SPECIMEN / Unknown Venipuncture / Unknown 05/29/2024 2:41 PM [employer] 05/29/2024 3:08 PM [employer] Jamil Carlin MD LAB - BLOOD ORDERABLES Fi nal Result LABORATORY [facility] [address] ([facility] floor, no room number) [place] [address], [facility] * (ABNORMAL) UA with Microscopic (05/29/2024 2:41 PM [employer]) Color Urine Light Yellow Colorless, Straw, Light Yellow, Yellow 05/29/2024 3:29 PM [facility] Appearance Urine Clear Clear 05/29/20 24 3:29 PM [facility] Glucose Urine Negative Negative mg/dL 05/29/2024 3:29 PM [facility] Bilirubin Urine Negative Negative 3:29 PM [facility] Ketones Urine Negative Negative mg/dL 05/29/2024 3:29 PM [facility] Specific Meally Urine 1.010 1.003 - 1.035 05/29/2024 3:29 PM [facility] Blood Urine Negative Negative 05/29/2024 3:29 PM [facility] pH Urine 8.0(H) 5.0 - 7.0 05/29/2024 3:29 PM [facility] Protein Albumin Urine 50(A) Negative mg/dL 05/29/2024 3:29 PM [facility] Urobilinogen Urine Normal Normal, 2.0 mg/dL 05/29/2024 3:29 PM [facility] Nitrite Urine Negative Negative 05/29/2024 3:29 PM [facility] Leukocyte Esterase Urine Negative Negative 05/29/2024 3:29 PM [facility] Bacteria Urine Few(A) None Seen /HPF 05/29/2024 3:29 PM [facility] RBC Urine 1 <=2 /HPF 05/29/2024 3:29 PM [facility] WBC Urine 2 <=5 /HPF 05/29/2024 3:29 PM [facility] Squamous Epithelials Urine <1 <=1 /HPF 05/29/2024 3:29 PM [facility] Hyaline Casts Urine 3(H) <=2 /LPF 05/29/2024 3:29 PM [facility] Urine URINE SPECIMEN OBTAINED BY CLEAN CATCH PROCEDURE / Unknown Non-blood Collection / Unknown 05/29/2024 2:41 PM [employer] 05/29/2024 3:19 PM [employer] Jamil Carlin MD LAB - URINE ORDERABLES Fi nal Result Performing Organization Address City/[facility]/ZIP Co de Phone Number [facility] Lab [address] Lab (1st floor, no room number) [place] [phone] [place] [address] * (ABNORMAL) Protein random urine (05/29/2024 2:41 PM [employer]) Total Protein Urine mg/dL 44.4 mg/dL 05/29/2024 3:50 PM [facility] Comment:The reference ranges have not been established in urine protein. The results should be integrated into the clinical context for interpretation. Total Protein Urine mg/mg Creat 1.14(H) 0.00 - 0.20 mg/mg Cr 05/29/2024 3:50 PM [facility] Creatinine Urine mg/dL 38.9 mg/dL 05/29/2024 3:50 PM [facility] Comment:The reference ranges have not been established in urine creatinine. The results should be integrated into the clinical context for interpretation. Urine URINE SPECIMEN OBTAINED BY CLEAN CATCH PROCEDURE / Unknown Non-blood Collection / Unknown 05/29/2024 2:41 PM [employer] 05/29/2024 3:18 PM [employer] Jamil Carlin MD LAB - URINE ORDERABLES Fi nal Result Performing Organization Address City/[facility]/ZIP Co de Phone Number [facility] [address] Lab (1st floor, no room number) [place] [address] * (ABNORMAL) Albumin Random Urine Quantitative with Creat Ratio (05/29/2024 2:41 PM [employer]) Creatinine Urine mg/dL 37.8 mg/dL 05/30/2024 4:36 AM [facility] Comment:The reference ranges have not been established in urine creatinine. The results should be integrated into the clinical context for interpretation. Albumin Urine mg/L 165.0 mg/L 2023 4:36 AM [facility] [facility] Comment:The reference ranges have not been established in urine albumin. The results should be integrated into the clinical context for interpretation. Albumin Urine mg/g Cr 436.51(H) 0.00 - 25.00 mg/g Cr 05/30/2024 4:36 AM [facility] Comment: Microalbuminuria is defined as [...] control, and institution of therapy with an quwetrqbcsv-msytjwqxcp-vfogyk (SARANYA) inhibitor (if the patient can tolerate it). Urine URINE SPECIMEN OBTAINED BY CLEAN CATCH PROCEDURE / Unknown Non-blood Collection / Unknown 05/29/2024 2:41 PM [employer] 05/29/2024 3:18 PM [employer] us Jamil Carlin MD LAB - URINE ORDERABLES Fi nal Result [facility] LAB[facility]ATORY [facility] Core Lab [address], [address] [place] [phone] * (ABNORMAL) Blood gas venous (05/29/2024 2:41 PM [employer]) pH Venous 7.56(H) 7.32 - 7.43 05/29/2024 3:27 PM [facility] pCO2 Venous 71(H) 40 - 50 mm Hg 05/29/2024 3:27 PM [facility] pO2 Venous 38 25 - 47 mm Hg 05/29/2024 3:27 PM [facility] Bicarbonate Venous >45(HH) 21 - 28 mmol/L 05/29/2024 3:27 PM [facility] Base Excess/Deficit Venous 05/29/2024 3:27 PM [facility] Comment:hide FIO2 21 [facility] 05/29/2024 3:27 PM [facility] Oxyhemoglobin Venous 67(L) 70 - 75 % 05/29/2024 3:27 PM [facility] O2 Sat, Venous 67.1(L) 70.0 - 75.0 % 05/29/2024 3:27 PM [facility] Blood, venous BLOOD SPECIMEN / Unknown Venipuncture / Unknown 05/29/2024 2:41 PM [employer] 05/29/2024 3:08 PM [facility] Narrative [facility] LAB[facility]AT[facility] - 05/29/2024 3:27 PM [employer] In healthy individuals, oxyhemoglobin (O2Hb) and oxygen saturation (SO2) are approximately equal. In the presence of dyshemoglobins, oxyhemoglobin can be considerably lower than oxygen saturation. us Jamil Carlin MD LAB - BLOOD ORDERABLES Fi nal Result LABORATORY [facility] [address] Lab (1st floor, no room number) [place] [address], [facility] * (ABNORMAL) Sodium timed urine (05/19/2024 12:02 PM [employer]) Sodium Urine mmol/L 130 mmol/L 05/19/2024 1:51 PM [facility] [facility] Comment:The reference ranges have not been established in urine sodium. The results should be integrated into the clinical context for interpretation. Sodium Urine mmol/spec 286(H) 40 - 220 mmol/spec 05/19/2024 1:51 PM [facility] [facility] Duration in hours 24.0 h [facility] 05/19/2024 1:51 PM [facility] [facility] Comment: started 05/18/24 11:40am started 05/18/24 11:40am Volume in mL 2,200 mL [facility] 05/19/2024 1:51 PM [facility] [facility] Comment: Ended 05/19/24 11:40am Ended 05/19/24 11:40am Urine URINE SPECIMEN OBTAINED BY CLEAN CATCH PROCEDURE / Unknown Non-blood Collection / Unknown 05/19/2024 12:02 PM [employer] 05/19/2024 12:09 PM [employer] us Javon Devine MD LAB - URINE ORDERABLES Final Res ult RH LABORATORY [facility] Lab [address] Lab (1st floor, no room number) [place] [address], [facility] * Potassium timed urine (05/19/2024 12:00 PM EN[employer]ER) [facility] Potassium Urine 39.0 mmol/L 6:39 PM [facility] [facility] Comment:The reference ranges have not been established in urine potassium. The results should be integrated into the clinical context for interpretation. Duration in hours 24.0 h [facility] 05/19/2024 6:39 PM [facility] Comment: Started 05/18/24 11:40am Started 05/18/24 11:40am Started 05/18/24 11:40am Volume in mL 2,200 mL [facility] 05/19/2024 6:39 PM [facility] Comment: Ended 05/19/24 11:40am Ended 05/19/24 11:40am Ended 05/19/24 11:40am Potassium Urine mmol/spec 86 25 - 125 mmol/spec 05/19/2024 6:39 PM [facility] [facility] Urine URINE SPECIMEN FROM URINARY CONDUIT / Unknown Non-blood Collection / Unknown 05/19/2024 12:00 PM [employer] 05/19/2024 12:10 PM [employer] us Javon Devine MD LAB - URINE ORDERABLES Final Res ult [facility] LABORATORY [facility] Lab [address], [address] [place] [address], [facility] * (ABNORMAL) Phosphorus timed urine (05/19/2024 11:59 AM [employer]) Phosphorous Urine mg/dL 15.0(L) 40.0 - 136.0 mg/dL 05/19/2024 6:50 PM [facility] [facility] Phosphorus Urine g/spec 0.33(L) 0.40 - 1.30 g/spec 05/19/2024 6:50 PM [facility] [facility] Duration in hours 24.0 h [facility] 05/19/2024 6:50 PM [facility] Comment: Started 05/18/24 11:40am Started 05/18/24 11:40am Volume in mL 2,200 mL [facility] 05/19/2024 6:50 PM [facility] Comment: Ended 05/19/24 11:40am Ended 05/19/24 11:40am Urine URINE SPECIMEN OBTAINED BY CLEAN CATCH PROCEDURE / Unknown Non-blood Collection / Unknown 05/19/2024 11:59 AM [employer] 05/19/2024 12:09 PM [employer] us Javon Devine MD LAB - URINE ORDERABLES Final Res ult [facility] LABORATORY [facility] [place] [facility] [address], [address] [phone] * (ABNORMAL) Magnesium timed urine (05/19/2024 11:58 AM [employer]) Magnesium Urine mg/dL 10.3 mg/dL 05/19/2024 6:54 PM [facility] [facility] Comment:The reference ranges have not been established in urine magnesium. The results should be integrated into the clinical context for interpretation. Duration in hours 24.0 h [facility] 05/19/2024 6:54 PM [facility] [facility] Comment: Started 05/18/24 11:40am Started 05/18/24 11:40am Started 05/18/24 11:40am Volume in mL 2,200 mL [facility] 05/19/2024 6:54 PM [facility] Comment: Ended 05/19/24 11:40am Ended 05/19/24 11:40am Ended 05/19/24 11:40am Magnesium Urine g/spec 0.23(H) 0.07 - 0.12 g/spec 05/19/2024 6:54 PM [facility] [facility] Comment:Reference range appl icable for 24 hour only Urine URINE SPECIMEN OBTAINED BY CLEAN CATCH PROCEDURE / Unknown Non-blood Collection / Unknown 05/19/2024 11:58 AM EN[employer]ER 05/19/2024 12:09 PM EN[employer]ER us Javon Devine MD LAB - URINE ORDERABLES Final Res ult Performing Organization Address City/[facility]/ZIP Co de Phone Number [facility]U LABORATORY [facility] Core Lab [address], [address] [phone] * (ABNORMAL) Chloride timed urine (05/19/2024 11:56 AM EN[employer]) Chloride Urine mmol/L 41 mmol/L 05/19/2024 6:41 PM [facility] [facility] Comment:The reference ranges have not been established in urine chloride. The results should be integrated into the clinical context for interpretation. Chloride Urine mmol/spec 90(L) 110 - 250 mmol/spec 05/19/2024 6:41 PM [facility] [facility] Comment: Reference range applicable for 24 hour only The urinary excretion of sodium, potassium and chloride varies significantly with dietary intake. The values given here are typical of people on average diet. Duration in hours 24.0 h [facility] 05/19/2024 6:41 PM [facility] [facility] Comment: started 05/18/24 11:40am started 05/18/24 11:40am started 05/18/24 11:40am Volume in mL 2,200 mL [facility] 05/19/2024 6:41 PM [facility] [facility] Comment: ended 05/19/24 11:40am ended 05/19/24 11:40am ended 05/19/24 11:40am Urine URINE SPECIMEN OBTAINED BY CLEAN CATCH PROCEDURE / Unknown Non-blood Collection / Unknown 05/19/2024 11:56 AM ENGLISH [employer]ER 05/19/2024 12:10 PM ENGLISH [employer]ER us Javon Devine MD LAB - URINE ORDERABLES Final Res ult Performing Organization Address City/[facility]/ZIP Co de Phone Number [facility] LABORAT[facility] Core Lab [address], [address] [place] [phone] * Calcium timed urine (05/19/2024 11:54 AM ENGLISH [employer]ER) Calcium Urine mg/dL 9.2 mg/dL 05/19/2024 6:53 PM [facility] [facility] Comment:The reference ranges have not been established in urine calcium. The results should be integrated into the clinical context for interpretation. Duration in hours 24.0 h [facility] 05/19/2024 6:53 PM [facility] [facility] Comment: Started 05/18/24 11:40am Started 05/18/24 11:40am Started 05/18/24 11:40am Volume in mL 2,200 mL [facility] 05/19/2024 6:53 PM [facility] [facility] Comment: ended 11:40am 05/19/24 ended 11:40am 05/19/24 ended 11:40am 05/19/24 Calcium Urine g/spec 0.20 0.10 - 0.30 g/spec 05/19/2024 6:53 PM [facility] [facility] Comment:Reference range appl icable for 24 hour only Urine URINE SPECIMEN OBTAINED BY CLEAN CATCH PROCEDURE / Unknown Non-blood Collection / Unknown 05/19/2024 11:54 AM EN[employer]ER 05/19/2024 12:09 PM EN[employer]ER us Javon Devine MD LAB - URINE ORDERABLES Final Res ult [facility] LABORATORY [facility] [place] [facility] [address], [address] [place] [phone] * Lactic acid whole blood (05/15/2024 7:14 PM ENGLISH [employer]ER) Lactic Acid 1.7 0.7 - 2.0 mmol/L 05/15/2024 7:23 PM [facility] [facility] Blood STRUCTURE OF LEFT HAND / Unknown Venipuncture / Unknown 05/15/2024 7:14 PM ENGLISH [employer]ER 05/15/2024 7:21 PM EN[employer]ER us Desire Najera PA-C LAB - BLOOD ORDERABLES Final Result Performing Organization Address City/[facility]/ZIP Co de Phone Number LABORATORY [facility] Lab [address] Lab (1st floor, no room number) [place] [address] * Ketone Beta-Hydroxybutyrate Quantitative (05/15/2024 2:54 PM ENGLISH [employer]ER) Ketone (Beta-Hydroxybuty rate) Quantitative 0.25 <=0.30 mmol/L 05/15/2024 7:54 PM [facility] Blood STRUCTURE OF LEFT HAND / Unknown Venipuncture / Unknown 05/15/2024 2:54 PM EN[employer]ER 05/15/2024 3:03 PM EN[employer]ER Desire Najera PA-C LAB - BLOOD ORDERABLES Final Result Performing Organization Address [facility]/ZIP Co de Phone Number LABORATORY [facility] Lab [address] Lab (1st floor, no room number) [place] [address] * XR Pelvis 1/2 Views (04/23/2024 2:01 PM CDT) Anatomical Region Laterality Modality Abdomen/Pelvis Digital Radiogra phy Impressions 04/23/2024 2:08 PM CDT IMPRESSION: Right inferior pubic ramus fracture with similar alignment. No definite osseous bridging. There is normal joint alignment. No significant degenerative changes. DIANDRA RODRÍGUEZ MD SYSTEM ID: [id number] Narrative 04/23/2024 2:08 PM CDT XR PELVIS [...] degenerative changes. DIANDRA RODRÍGUEZ MD SYSTEM ID: [id number] [facility] ORDERABL ES Final Result * CT Cervical Spine w/o Contrast (04/23/2024 1:59 PM CDT) Anatomical Region Laterality Modality Spine, SUBRAD CT NEURO, SUBR AD CT NEURO, UMP CT SPINE, RAD CT Computed Tomography Impressions 04/23/2024 2:23 PM CDT IMPRESSION: No acute cervical spine fracture. ANTHONY COOK MD SYSTEM ID: [id number] Narrative 04/23/2024 2:[address] CERVICAL [...] spine fracture. ANTHONY COOK MD SYSTEM ID: [id number] us Jerry [address] CT ORDERABLES Final Result * XR Knee Right 1/2 Views (04/23/2024 1:59 PM CDT) Anatomical Region Laterality Modality Leg, Thigh, Knee Right Digital Radiogr aphy Impressions 04/23/2024 2:08 PM CDT IMPRESSION: No acute osseous abnormality demonstrated. DIANDRA RODRÍGUEZ MD SYSTEM ID: [id number] Narrative 04/23/2024 2:08 PM CDT KNEE ONE-TWO [...] abnormality demonstrated. DIANDRA RODRÍGUEZ MD SYSTEM ID: [id number] Jerry Maya MD IMG DIAGNOSTIC IMAGING ORDERABL ES Final Result * XR Femur Right 2 Views (04/23/2024 1:57 PM CDT) Anatomical Region Laterality Modality Hip, Thigh, Knee Right Digital Radiogr aphy Impressions 04/23/2024 2:08 PM CDT IMPRESSION: Right inferior pubic ramus fracture with similar alignment. No definite osseous bridging. There is normal joint alignment. No significant degenerative changes. DIANDRA RODRÍGUEZ MD SYSTEM ID: [id number] Narrative 04/23/2024 2:08 PM CDT XR PELVIS [...] degenerative changes. DIANDRA RODRÍGUEZ MD SYSTEM ID: [id number] Jerry Maya MD IMG DIAGNOSTIC IMAGING ORDERABL [...] [facility] SPECIALTY CORE/PROT/ENDO [facility] Specialty Core/Prot/Endo [address] [facility] [address], Room [address] from Last 3 Months or Most Recently Relevant to Health Maintenance Insurance MEDICARE none (Work) [address] [place] [id number] [place] [id number] [place] [id number] [place] [id number] Advance Directives For more information, please contact: [phone] * Full Code (Latest Code Status on [...] isac nt/ legal decision maker Care Teams Beef Lugger Relationship Specialty [place] [address] [place] [address] PCP - General 03/07/24
--- OUTSIDE RECORDS SUMMARY | 2024-07-08 19:37 | XMS_ITS | Referral Summary ---
Author Organization [facility] Address [address] [place] [address] Care Team Providers Care Cluster Bore Operator Name Role Phone Gregg Corrales MD Primary Care Provider Encounters Date Type Department Care Team Description 07/01/2024 2:04 PM LEADERSHIP DEVELOPMENT INSTRUCTOR - 07/03/2024 1:06 PM LEADERSHIP DEVELOPMENT INSTRUCTOR Hospital Encounter [facility] [address] [place] [phone] Jesus Bobby MD Baxa, Alexander, DO Intractable nausea and vomiting; Gitelman syndrome; Hypokalemia; Hyponatremia; Hypercalcemia; BARBARA (acute kidney injury); Headache, unspecified headache type; Prolonged Q-T interval on ECG Discharge Disposition: Left Against Medical Advice 07/01/2024 Travel 06/30/[address] [facility] [address] [place] [address] [address] [address] Lucia Mora 06/24/2024 Transcribe Orders GENERIC EXTERNAL DATA DEPARTMENT Provider, Generic External Data Hypokalemia (Primary Dx); Alkalosis 06/16/2024 5:01 PM LEADERSHIP DEVELOPMENT INSTRUCTOR - 06/20/2024 1:46 PM LEADERSHIP DEVELOPMENT INSTRUCTOR Hospital Encounter [facility] Medical Surgical [address] [place] [address] Jamil Madison MD Sebring, Daniel L, MD Hypokalemic alkalosis (Primary Dx); Hypokalemia; Acute kidney injury; Knee injury, left, initial encounter Discharge Disposition: Home or Self Care 06/16/2024 Travel 06/13/[address] [facility] Information Management [address] [facility] [address] [place] [address] Scan, Non-Provider 05/29/2024 1:58 PM LEADERSHIP DEVELOPMENT INSTRUCTOR - 05/31/2024 5:58 PM LEADERSHIP DEVELOPMENT INSTRUCTOR [facility] [address] [place] [address] Jamil Carlin MD Bray, Scott, MD Hypokalemia; BARBARA (acute kidney injury); Hypercalcemia; Alkalosis; Gitelman disease Discharge Disposition: Left Against Medical Advice 05/29/2024 Travel 05/15/2024 2:33 PM LEADERSHIP DEVELOPMENT INSTRUCTOR - 05/19/2024 12:20 PM LEADERSHIP DEVELOPMENT INSTRUCTOR Hospital Encounter [facility] [address] [place] [address] Lucio Anthony MD Cabrera, Jesus F, MD Hypokalemia; Hypercalcemia; BARBARA (acute kidney injury) Discharge Disposition: Home or Self Care 05/15/2024 Travel 04/23/2024 Travel 04/23/2024 11:58 AM CDT - 04/23/2024 7:05 PM CDT Emergency [facility] Emergency Dept [address] [place] [address] Jerry Maya MD Lindenbaum, Elan, MD Khan, [...] Acute kidney injury 01/31/2023 Metabolic alkalosis 11/04/2022 [id number]-[id number] kidney injury 11/04/2022 Myalgia, multiple sites 07/29/2022 [...] in an abandoned building, in an overnight senior care, or couch-surfing.) Yes 07/02/2024 Are you worried [...] on file Legal Sex Female 4:48 AM LEADERSHIP DEVELOPMENT INSTRUCTOR Gender Identity Not on file Sexual Orientation Not on file 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 Not on file Not on file Last Filed Vital Signs Vital Sign Reading Time Taken Comments Blood Pressure 123/71 07/03/2024 9:07 AM LEADERSHIP DEVELOPMENT INSTRUCTOR Pulse 87 07/03/2024 9:07 AM LEADERSHIP DEVELOPMENT INSTRUCTOR Temperature 36.7 C (98 F) 07/03/2024 9:07 AM LEADERSHIP DEVELOPMENT INSTRUCTOR Respiratory Rate 16 07/03/2024 9:07 AM LEADERSHIP DEVELOPMENT INSTRUCTOR Oxygen Saturation 99% 07/03/2024 9:07 AM LEADERSHIP DEVELOPMENT INSTRUCTOR Inhaled Oxygen Concentration - - Weight 49 kg (108 lb) 07/02/2024 5:51 PM LEADERSHIP DEVELOPMENT INSTRUCTOR Height 170.2 cm (5' 7) 07/01/2024 11:26 AM LEADERSHIP DEVELOPMENT INSTRUCTOR Body Mass Index 16.92 07/01/2024 11:26 AM LEADERSHIP DEVELOPMENT INSTRUCTOR Plan of Treatment Upcoming Encounters Date Type Department Care Team (Late st Contact Info) Description 07/09/2024 11:00 AM LEADERSHIP DEVELOPMENT INSTRUCTOR Virtual Visit [facility] [address] [facility] [address],[place] [address] [place] [address] [place], [place] [id number] [place] [facility] [address] [facility] [address] [place] [address] Procedures Procedure Name Priority Date/Time Associated Diagnosis Comments MAGNESIUM Routine 07/03/2024 5:58 AM LEADERSHIP DEVELOPMENT INSTRUCTOR FERRITIN Routine 07/03/2024 5:58 AM LEADERSHIP DEVELOPMENT INSTRUCTOR IRON AND IRON BINDING CAPACITY Routine 07/03/2024 5:58 AM LEADERSHIP DEVELOPMENT INSTRUCTOR BASIC METABOLIC PANEL Routine 07/03/2024 5:58 AM LEADERSHIP DEVELOPMENT INSTRUCTOR CBC WITH PLATELETS Routine 07/03/2024 5: 58 AM LEADERSHIP DEVELOPMENT INSTRUCTOR POTASSIUM Timed 07/03/2024 5:58 AM LEADERSHIP DEVELOPMENT INSTRUCTOR POTASSIUM Timed 07/02/2024 11:55 PM LEADERSHIP DEVELOPMENT INSTRUCTOR POTASSIUM STAT 07/02/2024 5:36 PM LEADERSHIP DEVELOPMENT INSTRUCTOR POTASSIUM STAT 07/02/2024 12:13 PM LEADERSHIP DEVELOPMENT INSTRUCTOR BICARBONATE URINE Add-On 07/02/2024 9:5 3 AM LEADERSHIP DEVELOPMENT INSTRUCTOR OSMOLALITY Add-On 07/02/2024 8:30 AM LEADERSHIP DEVELOPMENT INSTRUCTOR MAGNESIUM STAT 07/02/2024 8:30 AM LEADERSHIP DEVELOPMENT INSTRUCTOR CBC WITH PLATELETS STAT 07/02/2024 8: 30 AM LEADERSHIP DEVELOPMENT INSTRUCTOR BASIC METABOLIC PANEL STAT 07/02/2024 8:30 AM LEADERSHIP DEVELOPMENT INSTRUCTOR MAGNESIUM Add-On 07/01/2024 11:34 PM LEADERSHIP DEVELOPMENT INSTRUCTOR BASIC METABOLIC PANEL STAT 07/01/2024 11:[address] LEADERSHIP DEVELOPMENT INSTRU[address] ABDOMEN PELVIS W/O CONTRAST STAT 07/01/2024 9:17 PM LEADERSHIP DEVELOPMENT INSTRUCTOR FRACTIONAL EXCRETION OF SODIUM STAT 07/01/2024 9:07 PM LEADERSHIP DEVELOPMENT INSTRUCTOR OSMOLALITY, RANDOM URINE Add-On 025 9:07 PM LEADERSHIP DEVELOPMENT INSTRUCTOR POTASSIUM RANDOM URINE Add-On 9:07 PM LEADERSHIP DEVELOPMENT INSTRUCTOR CHLORIDE RANDOM URINE STAT 07/01/2024 9:07 PM LEADERSHIP DEVELOPMENT INSTRUCTOR FRACTIONAL EXCRETION OF SODIUM STAT 07/01/2024 9:07 PM LEADERSHIP DEVELOPMENT INSTRUCTOR ROUTINE UA WITH MICROSCOPIC REFLEX TO CULTURE STAT 07/01/2024 9:07 PM LEADERSHIP DEVELOPMENT INSTRUCTOR PHOSPHORUS Add-On 07/01/2024 7:18 PM LEADERSHIP DEVELOPMENT INSTRUCTOR BASIC METABOLIC PANEL STAT 07/01/2024 7:18 PM LEADERSHIP DEVELOPMENT INSTRUCTOR PTH RELATED PEPTIDE TEST STAT 025 7:18 PM LEADERSHIP DEVELOPMENT INSTRUCTOR PARATHYROID HORMONE INTACT STAT 07/01/2024 7:18 PM LEADERSHIP DEVELOPMENT INSTRUCTOR IONIZED CALCIUM STAT 07/01/2024 3:35 PM LEADERSHIP DEVELOPMENT INSTRUCTOR CBC WITH PLATELETS & DIFFERENTIAL STAT 07/01/2024 2:14 PM LEADERSHIP DEVELOPMENT INSTRUCTOR VITAMIN D DEFICIENCY SCREENING Add-On 07/01/2024 2:14 PM LEADERSHIP DEVELOPMENT INSTRUCTOR LIPASE STAT 07/01/2024 2:14 PM LEADERSHIP DEVELOPMENT INSTRUCTOR HEPATIC FUNCTION PANEL STAT 2:14 PM LEADERSHIP DEVELOPMENT INSTRUCTOR TROPONIN T, HIGH SENSITIVITY STAT 07/01/2024 2:14 PM LEADERSHIP DEVELOPMENT INSTRUCTOR MAGNESIUM STAT 07/01/2024 2:14 PM LEADERSHIP DEVELOPMENT INSTRUCTOR EXTRA BLUE TOP TUBE STAT 07/01/2024 2 :14 PM LEADERSHIP DEVELOPMENT INSTRUCTOR CBC WITH PLATELETS AND DIFFERENTIAL STAT 07/01/2024 2:14 PM LEADERSHIP DEVELOPMENT INSTRUCTOR EXTRA TUBE STAT 07/01/2024 2:14 PM LEADERSHIP DEVELOPMENT INSTRUCTOR HCG QUALITATIVE STAT 07/01/2024 2:14 PM LEADERSHIP DEVELOPMENT INSTRUCTOR BASIC METABOLIC PANEL STAT 07/01/2024 2:14 PM LEADERSHIP DEVELOPMENT INSTRUCTOR EKG 12-LEAD, TRACING ONLY STAT 07/01/2024 11:37 AM LEADERSHIP DEVELOPMENT INSTRUCTOR INFLUENZA A/B, RSV AND SARS-COV2 PCR STAT 07/01/2024 11:32 AM LEADERSHIP DEVELOPMENT INSTRUCTOR CBC WITH PLATELETS Routine 06/20/2024 7: 23 AM LEADERSHIP DEVELOPMENT INSTRUCTOR RENAL PANEL Routine 06/20/2024 7:23 AM LEADERSHIP DEVELOPMENT INSTRUCTOR MAGNESIUM Routine 06/20/2024 7:23 AM LEADERSHIP DEVELOPMENT INSTRUCTOR POTASSIUM RANDOM URINE Routine 5:13 PM LEADERSHIP DEVELOPMENT INSTRUCTOR CHLORIDE RANDOM URINE Routine 06/19/2024 5:13 PM LEADERSHIP DEVELOPMENT INSTRUCTOR SODIUM RANDOM URINE Routine 06/19/2024 5 :13 PM LEADERSHIP DEVELOPMENT INSTRUCTOR BASIC METABOLIC PANEL Routine 06/19/2024 6:36 AM LEADERSHIP DEVELOPMENT INSTRUCTOR PHOSPHORUS Routine 06/19/2024 6:36 AM LEADERSHIP DEVELOPMENT INSTRUCTOR MAGNESIUM Routine 06/19/2024 6:36 AM LEADERSHIP DEVELOPMENT INSTRUCTOR BASIC METABOLIC PANEL Routine 06/18/2024 7:04 PM LEADERSHIP DEVELOPMENT INSTRUCTOR EKG 12-LEAD, TRACING ONLY Routine 06/18/2024 11:14 AM LEADERSHIP DEVELOPMENT INSTRUCTOR CBC WITH PLATELETS Routine 06/18/2024 6: 08 AM LEADERSHIP DEVELOPMENT INSTRUCTOR BASIC METABOLIC PANEL Timed 06/18/2024 6:08 AM LEADERSHIP DEVELOPMENT INSTRUCTOR PHOSPHORUS Routine 06/18/2024 6:08 AM LEADERSHIP DEVELOPMENT INSTRUCTOR MAGNESIUM Routine 06/18/2024 6:08 AM LEADERSHIP DEVELOPMENT INSTRUCTOR BASIC METABOLIC PANEL Timed 06/17/2024 10:14 PM LEADERSHIP DEVELOPMENT INSTRUCTOR POTASSIUM Timed 06/17/2024 7:28 PM LEADERSHIP DEVELOPMENT INSTRUCTOR PHOSPHORUS Timed 06/17/2024 7:28 PM LEADERSHIP DEVELOPMENT INSTRUCTOR OSMOLALITY Routine 06/17/2024 1:48 PM LEADERSHIP DEVELOPMENT INSTRUCTOR POTASSIUM Timed 06/17/2024 1:48 PM LEADERSHIP DEVELOPMENT INSTRUCTOR BASIC METABOLIC PANEL Timed 06/17/2024 1:48 PM LEADERSHIP DEVELOPMENT INSTRUCTOR CREATININE RANDOM URINE Routine 06/17/20 24 1:39 PM LEADERSHIP DEVELOPMENT INSTRUCTOR POTASSIUM RANDOM URINE Routine 4 1:39 PM LEADERSHIP DEVELOPMENT INSTRUCTOR OSMOLALITY, RANDOM URINE Routine 024 1:39 PM LEADERSHIP DEVELOPMENT INSTRUCTOR CHLORIDE RANDOM URINE Routine 06/17/2024 1:39 PM LEADERSHIP DEVELOPMENT INSTRUCTOR SODIUM RANDOM URINE Routine 06/17/2024 1 :39 PM LEADERSHIP DEVELOPMENT INSTRUCTOR MR KNEE LEFT W/O CONTRAST Routine 06/17/2024 11:35 AM LEADERSHIP DEVELOPMENT INSTRUCTOR POTASSIUM Timed 06/17/2024 10:11 AM LEADERSHIP DEVELOPMENT INSTRUCTOR PHOSPHORUS Routine 06/17/2024 6:52 AM LEADERSHIP DEVELOPMENT INSTRUCTOR MAGNESIUM Routine 06/17/2024 6:52 AM LEADERSHIP DEVELOPMENT INSTRUCTOR CBC WITH PLATELETS Routine 06/17/2024 6: 52 AM LEADERSHIP DEVELOPMENT INSTRUCTOR BASIC METABOLIC PANEL Routine 06/17/2024 6:52 AM LEADERSHIP DEVELOPMENT INSTRUCTOR POTASSIUM Timed 06/17/2024 1:33 AM LEADERSHIP DEVELOPMENT INSTRUCTOR PHOSPHORUS Add-On 06/16/2024 7:31 PM LEADERSHIP DEVELOPMENT INSTRUCTOR MAGNESIUM Add-On 06/16/2024 7:31 PM LEADERSHIP DEVELOPMENT INSTRUCTOR BASIC METABOLIC PANEL STAT 06/16/2024 7:31 PM LEADERSHIP DEVELOPMENT INSTRUCTOR XR KNEE LEFT 3 VIEWS STAT 06/16/2024 6:16 PM LEADERSHIP DEVELOPMENT INSTRUCTOR CBC WITH PLATELETS & DIFFERENTIAL STAT 06/16/2024 5:53 PM LEADERSHIP DEVELOPMENT INSTRUCTOR CBC WITH PLATELETS AND DIFFERENTIAL STAT 06/16/2024 5:53 PM LEADERSHIP DEVELOPMENT INSTRUCTOR TROPONIN T, HIGH SENSITIVITY STAT 06/16/2024 5:53 PM LEADERSHIP DEVELOPMENT INSTRUCTOR EKG 12-LEAD, TRACING ONLY STAT 06/16/2024 5:40 PM LEADERSHIP DEVELOPMENT INSTRUCTOR PHOSPHORUS Timed 05/31/2024 5:27 [address] LEADERSHIP DEVELOPMENT INSTRU[address] CT KNEE LEFT W/O CONTRAST Routine 05/31/2024 2:33 PM LEADERSHIP DEVELOPMENT INSTRUCTOR PARATHYROID HORMONE INTACT Routine 05/31/2024 8:35 AM LEADERSHIP DEVELOPMENT INSTRUCTOR PHOSPHORUS Routine 05/31/2024 8:35 AM LEADERSHIP DEVELOPMENT INSTRUCTOR MAGNESIUM Routine 05/31/2024 8:35 AM LEADERSHIP DEVELOPMENT INSTRUCTOR COMPREHENSIVE METABOLIC PANEL Routine 05/31/2024 8:35 AM LEADERSHIP DEVELOPMENT INSTRUCTOR AMMONIA Routine 05/31/2024 8:35 AM LEADERSHIP DEVELOPMENT INSTRUCTOR EKG 12-LEAD, TRACING ONLY Routine 05/30/2024 11:41 AM LEADERSHIP DEVELOPMENT INSTRUCTOR POTASSIUM Timed 05/30/2024 10:08 AM LEADERSHIP DEVELOPMENT INSTRUCTOR PHOSPHORUS Routine 05/30/2024 8:02 AM LEADERSHIP DEVELOPMENT INSTRUCTOR MAGNESIUM Routine 05/30/2024 8:02 AM LEADERSHIP DEVELOPMENT INSTRUCTOR CBC WITH PLATELETS Routine 05/30/2024 8: 02 AM LEADERSHIP DEVELOPMENT INSTRUCTOR BASIC METABOLIC PANEL Timed 05/30/2024 8:02 AM LEADERSHIP DEVELOPMENT INSTRUCTOR POTASSIUM Timed 05/30/2024 4:25 AM LEADERSHIP DEVELOPMENT INSTRUCTOR BASIC METABOLIC PANEL Timed 05/29/2024 10:00 PM LEADERSHIP DEVELOPMENT INSTRUCTOR PHOSPHORUS Add-On 05/29/2024 4:50 PM LEADERSHIP DEVELOPMENT INSTRUCTOR POTASSIUM STAT 05/29/2024 4:50 PM LEADERSHIP DEVELOPMENT INSTRUCTOR XR ANKLE LEFT G/E 3 VIEWS STAT 05/29/2024 4:02 PM LEADERSHIP DEVELOPMENT INSTRUCTOR XR KNEE LEFT 3 VIEWS STAT 05/29/2024 4:02 PM LEADERSHIP DEVELOPMENT INSTRUCTOR EXTRA RED TOP TUBE STAT 05/29/2024 2: 41 PM LEADERSHIP DEVELOPMENT INSTRUCTOR EXTRA BLUE TOP TUBE STAT 05/29/2024 2 :41 PM LEADERSHIP DEVELOPMENT INSTRUCTOR ALBUMIN RANDOM URINE QUANTITATIVE STAT 05/29/2024 2:41 PM LEADERSHIP DEVELOPMENT INSTRUCTOR ROUTINE UA WITH MICROSCOPIC STAT 05/29/2024 2:41 PM LEADERSHIP DEVELOPMENT INSTRUCTOR PROTEIN RANDOM URINE STAT 05/29/2024 2:41 PM LEADERSHIP DEVELOPMENT INSTRUCTOR CHLORIDE RANDOM URINE STAT 05/29/2024 2:41 PM LEADERSHIP DEVELOPMENT INSTRUCTOR POTASSIUM RANDOM URINE STAT 2:41 PM LEADERSHIP DEVELOPMENT INSTRUCTOR SODIUM RANDOM URINE STAT 05/29/2024 2 :41 PM LEADERSHIP DEVELOPMENT INSTRUCTOR EXTRA TUBE STAT 05/29/2024 2:41 PM LEADERSHIP DEVELOPMENT INSTRUCTOR TSH WITH FREE T4 REFLEX STAT 05/29/20 24 2:41 PM LEADERSHIP DEVELOPMENT INSTRUCTOR MAGNESIUM STAT 05/29/2024 2:41 PM LEADERSHIP DEVELOPMENT INSTRUCTOR COMPREHENSIVE METABOLIC PANEL STAT 05/29/2024 2:41 PM LEADERSHIP DEVELOPMENT INSTRUCTOR CBC WITH PLATELETS STAT 05/29/2024 2: 41 PM LEADERSHIP DEVELOPMENT INSTRUCTOR BLOOD GAS VENOUS STAT 05/29/2024 2:41 PM LEADERSHIP DEVELOPMENT INSTRUCTOR EKG 12-LEAD, TRACING ONLY STAT 05/29/2024 2:10 PM LEADERSHIP DEVELOPMENT INSTRUCTOR SODIUM TIMED URINE Routine 05/19/2024 12 :02 PM LEADERSHIP DEVELOPMENT INSTRUCTOR POTASSIUM TIMED URINE Routine 05/19/2024 12:00 PM LEADERSHIP DEVELOPMENT INSTRUCTOR PHOSPHORUS TIMED URINE Routine 11:59 AM LEADERSHIP DEVELOPMENT INSTRUCTOR MAGNESIUM TIMED URINE Routine 05/19/2024 11:58 AM LEADERSHIP DEVELOPMENT INSTRUCTOR CHLORIDE TIMED URINE Routine 05/19/2024 11:56 AM LEADERSHIP DEVELOPMENT INSTRUCTOR CALCIUM TIMED URINE Routine 05/19/2024 1 1:54 AM LEADERSHIP DEVELOPMENT INSTRUCTOR MAGNESIUM Routine 05/19/2024 7:41 AM LEADERSHIP DEVELOPMENT INSTRUCTOR CBC WITH PLATELETS Routine 05/19/2024 7: 41 AM LEADERSHIP DEVELOPMENT INSTRUCTOR RENAL PANEL Routine 05/19/2024 7:41 AM LEADERSHIP DEVELOPMENT INSTRUCTOR MAGNESIUM Timed 05/18/2024 12:53 PM LEADERSHIP DEVELOPMENT INSTRUCTOR POTASSIUM Timed 05/18/2024 12:53 PM LEADERSHIP DEVELOPMENT INSTRUCTOR PHOSPHORUS Timed 05/18/2024 12:53 PM LEADERSHIP DEVELOPMENT INSTRUCTOR CHLORIDE RANDOM URINE STAT 05/18/2024 10:25 AM LEADERSHIP DEVELOPMENT INSTRUCTOR POTASSIUM RANDOM URINE STAT 10:25 AM LEADERSHIP DEVELOPMENT INSTRUCTOR SODIUM RANDOM URINE STAT 05/18/2024 1 0:25 AM LEADERSHIP DEVELOPMENT INSTRUCTOR MAGNESIUM Routine 05/18/2024 6:51 AM LEADERSHIP DEVELOPMENT INSTRUCTOR CBC WITH PLATELETS Routine 05/18/2024 6: 51 AM LEADERSHIP DEVELOPMENT INSTRUCTOR RENAL PANEL Routine 05/18/2024 6:51 AM LEADERSHIP DEVELOPMENT INSTRUCTOR POTASSIUM Timed 05/17/2024 3:16 PM LEADERSHIP DEVELOPMENT INSTRUCTOR CBC WITH PLATELETS Routine 05/17/2024 6: 47 AM LEADERSHIP DEVELOPMENT INSTRUCTOR RENAL PANEL Routine 05/17/2024 6:47 AM LEADERSHIP DEVELOPMENT INSTRUCTOR MAGNESIUM Routine 05/17/2024 6:47 AM LEADERSHIP DEVELOPMENT INSTRUCTOR POTASSIUM Timed 05/17/2024 1:37 AM LEADERSHIP DEVELOPMENT INSTRUCTOR POTASSIUM Timed 05/16/2024 6:29 PM LEADERSHIP DEVELOPMENT INSTRUCTOR POTASSIUM Timed 05/16/2024 12:33 PM LEADERSHIP DEVELOPMENT INSTRUCTOR POTASSIUM Timed 05/16/2024 9:47 AM LEADERSHIP DEVELOPMENT INSTRUCTOR PHOSPHORUS Routine 05/16/2024 7:12 AM LEADERSHIP DEVELOPMENT INSTRUCTOR MAGNESIUM Routine 05/16/2024 7:12 AM LEADERSHIP DEVELOPMENT INSTRUCTOR BASIC METABOLIC PANEL Routine 05/16/2024 7:12 AM LEADERSHIP DEVELOPMENT INSTRUCTOR POTASSIUM Timed 05/16/2024 1:11 AM LEADERSHIP DEVELOPMENT INSTRUCTOR LACTIC ACID WHOLE BLOOD Routine 05/15/20 7:14 PM LEADERSHIP DEVELOPMENT INSTRUCTOR POTASSIUM Timed 05/15/2024 7:14 PM LEADERSHIP DEVELOPMENT INSTRUCTOR CBC WITH PLATELETS & DIFFERENTIAL STAT 05/15/2024 2:54 PM LEADERSHIP DEVELOPMENT INSTRUCTOR KETONE BETA-HYDROXYBUTYRATE QUANTITATIVE, RAPID Add-On 05/15/2024 2:54 PM LEADERSHIP DEVELOPMENT INSTRUCTOR MAGNESIUM STAT 05/15/2024 2:54 PM LEADERSHIP DEVELOPMENT INSTRUCTOR EXTRA BLUE TOP TUBE STAT 05/15/2024 2 :54 PM LEADERSHIP DEVELOPMENT INSTRUCTOR CBC WITH PLATELETS AND DIFFERENTIAL STAT 05/15/2024 2:54 PM LEADERSHIP DEVELOPMENT INSTRUCTOR HCG QUALITATIVE STAT 05/15/2024 2:54 PM LEADERSHIP DEVELOPMENT INSTRUCTOR EXTRA TUBE STAT 05/15/2024 2:54 PM LEADERSHIP DEVELOPMENT INSTRUCTOR BASIC METABOLIC PANEL STAT 05/15/2024 2:54 PM LEADERSHIP DEVELOPMENT INSTRUCTOR EKG 12-LEAD, TRACING ONLY STAT 05/15/2024 2:12 PM LEADERSHIP DEVELOPMENT INSTRUCTOR PARATHYROID HORMONE INTACT STAT 04/23/2024 6:18 PM [...] Maintenance Results * Potassium (07/03/2024 5:58 AM LEADERSHIP DEVELOPMENT INSTRUCTOR) Only the most recent of19 resultswithin the time period is included. Potassium 3.4 3.4 - 5.3 mmol/L 07/03/2024 6:51 AM LEADERSHIP DEVELOPMENT INSTRUCTOR LABORATORY Blood STRUCTURE OF RIGHT HAND / Unknown Venipuncture / Unknown 07/03/2024 5:58 AM LEADERSHIP DEVELOPMENT INSTRUCTOR 07/03/2024 6:16 AM LEADERSHIP DEVELOPMENT INSTRUCTOR Michel Dotson DO LAB - BLOOD ORDERABLES Fi nal Result [facility] [address] Lab (1st floor, no room number) [place] [address] * Magnesium (07/03/2024 5:58 AM LEADERSHIP DEVELOPMENT INSTRUCTOR) Only the most recent of19 resultswithin the time period is included. Magnesium 1.8 1.7 - 2.3 mg/dL 07/03/2024 6:51 AM LEADERSHIP DEVELOPMENT INSTRUCTOR LABORATORY Blood STRUCTURE OF RIGHT HAND / Unknown Venipuncture / Unknown 07/03/2024 5:58 AM LEADERSHIP DEVELOPMENT INSTRUCTOR 07/03/2024 6:16 AM LEADERSHIP DEVELOPMENT INSTRUCTOR Michel Dotson DO LAB - BLOOD ORDERABLES Fi nal Result [facility] [address] Lab (1st floor, no room number) [place] [address] * Iron and iron binding capacity (07/03/2024 5:58 AM LEADERSHIP DEVELOPMENT INSTRUCTOR) Iron 67 37 - 145 ug/dL 07/03/2024 6:51 AM LEADERSHIP DEVELOPMENT INSTRUCTOR [facility] LABORATORY Iron Binding Capacity 284 240 - 430 ug/dL 07/03/2024 6:51 AM LEADERSHIP DEVELOPMENT INSTRUCTOR [facility] Iron Sat Index 24 15 - 46 % 07/03/2024 6:51 AM LEADERSHIP DEVELOPMENT INSTRUCTOR [facility] Blood STRUCTURE OF RIGHT HAND / Unknown Venipuncture / Unknown 07/03/2024 5:58 AM LEADERSHIP DEVELOPMENT INSTRUCTOR 07/03/2024 6:16 AM LEADERSHIP DEVELOPMENT INSTRUCTOR us Mike Teran MD LAB - BLOOD ORDERABLES Final Result Performing Organization Address [facility]/ZIP Co de Phone Number [facility] [address] Lab (1st floor, no room number) [place] [phone] * Ferritin (07/03/2024 5:58 AM LEADERSHIP DEVELOPMENT INSTRUCTOR) Ferritin 28 6 - 175 ng/mL 07/03/2024 11:52 AM LEADERSHIP DEVELOPMENT INSTRUCTOR [facility] Blood STRUCTURE OF RIGHT HAND / Unknown Venipuncture / Unknown 07/03/2024 5:58 AM LEADERSHIP DEVELOPMENT INSTRUCTOR 07/03/2024 7:43 AM LEADERSHIP DEVELOPMENT INSTRUCTOR us Mike Teran MD LAB - BLOOD ORDERABLES Final Result [facility] [address] [facility], [address] [place] [address] * (ABNORMAL) Basic metabolic panel (07/03/2024 5:58 AM LEADERSHIP DEVELOPMENT INSTRUCTOR) Only the most recent of17 resultswithin the time period is included. Sodium 142 135 - 145 mmol/L 07/03/2024 6:55 AM LEADERSHIP DEVELOPMENT INSTRUCTOR LABORATORY Potassium 3.4 3.4 - 5.3 mmol/L 07/03/2024 6:55 AM [facility] Chloride 100 98 - 107 mmol/L 07/03/2024 6:55 AM [facility] Carbon Dioxide (CO2) 31(H) 22 - 29 mmol/L 07/03/2024 6:55 AM [facility] Anion Gap 11 7 - 15 mmol/L 07/03/2024 6:55 AM [facility] Urea Nitrogen 28.4(H) 6.0 - 20.0 mg/dL 07/03/2024 6:55 AM [facility] Creatinine 1.53(H) 0.51 - 0.95 mg/dL 07/03/2024 6:55 AM [facility] GFR Estimate 46(L) >60 mL/min/1.7 3m2 07/03/2024 6:55 AM [facility] Comment:eGFR calculated usin 2020 CKD-EPI equation. Calcium 9.1 8.8 - 10.4 mg/dL 07/03/2024 6:55 AM [facility] Comment:Reference intervals for this test were updated on 01/08/2024 to reflect our healthy population more accurately. There may be differences in the flagging of prior results with similar values performed with this method. Those prior results can be interpreted in the context of the updated reference intervals. Glucose 91 70 - 99 mg/dL 07/03/2024 6:55 AM [facility] Blood STRUCTURE OF RIGHT HAND / Unknown Venipuncture / Unknown 07/03/2024 5:58 AM LEADERSHIP DEVELOPMENT INSTRUCTOR 07/03/2024 6:16 AM [facility] Michel Dotson DO LAB - BLOOD ORDERABLES Fi nal Result LABORATORY [facility] [address] [facility] Lab (1st floor, no room number) [place] [address], [facility] * (ABNORMAL) CBC with platelets (07/03/2024 5:58 AM LEADERSHIP DEVELOPMENT INSTRUCTOR) Only the most recent of10 resultswithin the time period is included. WBC Count 6.8 4.0 - 11.0 10e3/uL 07/03/2024 6:22 AM LEADERSHIP DEVELOPMENT INSTRUCTOR LABORATORY RBC Count 2.70(L) 3.80 - 5.20 10e6/uL 07/03/2024 6:22 AM LEADERSHIP DEVELOPMENT INSTRUCTOR LABORATORY Hemoglobin 7.3(L) 11.7 - 15.7 g/dL 07/03/2024 6:22 AM LEADERSHIP DEVELOPMENT INSTRUCTOR LABORATORY Hematocrit 22.0(L) 35.0 - 47.0 % 07/03/2024 6:22 AM LEADERSHIP DEVELOPMENT INSTRUCTOR LABORATORY MCV 82 78 - 100 fL 07/03/2024 6:22 AM LEADERSHIP DEVELOPMENT INSTRUCTOR LABORATORY MCH 27.0 26.5 - 33.0 pg 07/03/2024 6:22 AM LEADERSHIP DEVELOPMENT INSTRUCTOR LABORATORY MCHC 33.2 31.5 - 36.5 g/dL 07/03/2024 6:22 AM LEADERSHIP DEVELOPMENT INSTRUCTOR LABORATORY RDW 15.0 10.0 - 15.0 % 07/03/2024 6:22 AM LEADERSHIP DEVELOPMENT INSTRUCTOR LABORATORY Platelet Count 282 150 - 450 10e3/uL 07/03/2024 6:22 AM LEADERSHIP DEVELOPMENT INSTRUCTOR LABORATORY Blood STRUCTURE OF RIGHT HAND / Unknown Venipuncture / Unknown 07/03/2024 5:58 AM LEADERSHIP DEVELOPMENT INSTRUCTOR 07/03/2024 6:16 AM LEADERSHIP DEVELOPMENT INSTRUCTOR Michel Dotson DO LAB - BLOOD ORDERABLES Fi nal Result LABORATORY [facility] [address] (1st floor, no room number) [place] [address], [facility] * Bicarbonate urine (07/02/2024 9:53 AM LEADERSHIP DEVELOPMENT INSTRUCTOR) Bicarbonate Urine 11 mmol/L 07/03/2024 3:18 AM LEADERSHIP DEVELOPMENT INSTRUCTOR [facility] Comment: INTERPRETIVE INFORMATION: Bicarbonate (HCO3), Urine Reference Interval has not been defined for Bicarbonate, Urine. See Compliance Statement B: [email or web address] Performed At: [facility]PITAL [facility] ([facility] [place] [address] Base Brander: REJI LOPEZ DO CLIA Number: [id number] Urine MID-STREAM URINE SPECIMEN / Unknown Non-blood Collection / Unknown 07/02/2024 9:53 AM LEADERSHIP DEVELOPMENT INSTRUCTOR 07/02/2024 9:56 AM LEADERSHIP DEVELOPMENT INSTRUCTOR us Mike Teran MD LAB - URINE ORDERABLES Final Result [facility] [address] [place] [address], [facility] [phone] * (ABNORMAL) Osmolality (07/02/2024 8:30 AM LEADERSHIP DEVELOPMENT INSTRUCTOR) Only the most recent of2 resultswithin the time period is included. Osmolality Blood 299(H) 275 - 295 mmol/kg 07/02/2024 1:25 PM LEADERSHIP DEVELOPMENT INSTRUCTOR [facility] Blood STRUCTURE OF RIGHT HAND / Unknown Venipuncture / Unknown 07/02/2024 8:30 AM LEADERSHIP DEVELOPMENT INSTRUCTOR 07/02/2024 8:45 AM LEADERSHIP DEVELOPMENT INSTRUCTOR Narrative [facility] - 07/02/2024 1:25 PM LEADERSHIP DEVELOPMENT INSTRUCTOR Greater than 385 mmol/kg relates to stupor in hyperglycemia Greater than 400 mmol/kg can relate to seizures Greater than 420 mmol/kg can be lethal Serum Osmalar Gap: Normal <10 Larger suggest unmeasured substances present in serum (ethanol, methanol, isopropanol, mannitol, ethylene glycol). us Mike Teran MD LAB - BLOOD ORDERABLES Final Result Performing Organization Address City/[facility] Co de Phone Number [facility] LABORATORY [facility] [place] [facility] [address] [facility], [address] [address] * CT Abdomen Pelvis w/o Contrast (07/01/2024 9:17 PM LEADERSHIP DEVELOPMENT INSTRUCTOR) Anatomical Region Laterality Modality Abdomen/Pelvis, SUBRAD CT LUDA DY, UMP CT ABDOMEN PELVIS, RAD CT Computed Tomography 07/01/2024 9:17 PM LEADERSHIP DEVELOPMENT INSTRUCTOR Impressions 07/01/2024 10:02 PM LEADERSHIP DEVELOPMENT INSTRUCTOR IMPRESSION: 1. No acute findings or inflammatory changes in the abdomen or pelvis. No bowel obstruction. 2. Subacute right inferior pubic ramus fracture. Narrative 07/01/2024 10:02 PM LEADERSHIP DEVELOPMENT INSTRUCTOR EXAM: CT ABDOMEN PELVIS W/O CONTRAST LOCATION: [facility] DATE: 07/01/2024 INDICATION: Abdominal pain, nausea, [...] EXAM: CT ABDOMEN PELVIS W/O CONTRAST LOCATION: [facility] DATE: 07/01/2024 INDICATION: Abdominal pain, nausea, [...] Fractional Excretion of Sodium (07/01/2024 9:07 PM LEADERSHIP DEVELOPMENT INSTRUCTOR) Creatinine Urine mg/dL 86.1 mg/dL 07/01/2024 9:36 PM LEADERSHIP DEVELOPMENT INSTRUCTOR [facility] Sodium Urine mmol/L 22 mmol/L 07/01/2024 9:36 PM LEADERSHIP DEVELOPMENT INSTRUCTOR [facility] %FENA 0.6 % 07/01/2024 9:36 PM LEADERSHIP DEVELOPMENT INSTRUCTOR [facility] Comment: Adult: <1 percent Indicates prerenal azotemia >3 percent Suggests acute tubular necrosis Neonates: <2.5 percent Suggest prerenal azotemia >2.5 percent Suggest acute tubular necrosis Urine MID-STREAM URINE SPECIMEN / Unknown Non-blood Collection / Unknown 07/01/2024 9:07 PM LEADERSHIP DEVELOPMENT INSTRUCTOR 07/01/2024 9:11 PM LEADERSHIP DEVELOPMENT INSTRUCTOR Nain Locke DO LAB - URINE ORDERABLES Final R esult LABORATORY [facility] [address] Lab (1st floor, no room number) [place] [address] * (ABNORMAL) UA with Microscopic reflex to Culture (07/01/2024 9:07 PM LEADERSHIP DEVELOPMENT INSTRUCTOR) Color Urine Straw Colorless, Straw, Light Yellow, Yellow 07/01/2024 9:19 PM [facility] Appearance Urine Clear Clear 07/01/19 25 9:19 PM LEADERSHIP DEVELOPMENT INSTRUCTOR LABORATORY Glucose Urine Negative Negative mg/dL 07/01/2024 9:19 PM LEADERSHIP DEVELOPMENT INSTRUCTOR LABORATORY Bilirubin Urine Negative Negative 9:19 PM LEADERSHIP DEVELOPMENT INSTRUCTOR LABORATORY Ketones Urine Negative Negative mg/dL 07/01/2024 9:19 PM LEADERSHIP DEVELOPMENT INSTRUCTOR LABORATORY Specific [place] Urine 1.016 1.003 - 1.035 07/01/2024 9:19 PM LEADERSHIP DEVELOPMENT INSTRUCTOR LABORATORY Blood Urine Negative Negative 07/01/2024 9:19 PM [facility] pH Urine 6.5 5.0 - 7.0 07/01/2024 9:19 PM LEADERSHIP DEVELOPMENT INSTRUCTOR LABORATORY Protein Albumin Urine 30(A) Negative mg/dL 07/01/2024 9:19 PM [facility] Urobilinogen Urine Normal Normal, 2.0 mg/dL 07/01/2024 9:19 PM LEADERSHIP DEVELOPMENT INSTRUCTOR LABORATORY Nitrite Urine Negative Negative 07/01/2024 9:19 PM LEADERSHIP DEVELOPMENT INSTRUCTOR LABORATORY Leukocyte Esterase Urine Negative Negative 07/01/2024 9:19 PM LEADERSHIP DEVELOPMENT INSTRUCTOR LABORATORY Mucus Urine Present(A) None Seen /LPF 07/01/2024 9:19 PM LEADERSHIP DEVELOPMENT INSTRUCTOR LABORATORY RBC Urine 1 <=2 /HPF 07/01/2024 9:19 PM LEADERSHIP DEVELOPMENT INSTRUCTOR LABORATORY WBC Urine 1 <=5 /HPF 07/01/2024 9:19 PM LEADERSHIP DEVELOPMENT INSTRUCTOR LABORATORY Squamous Epithelials Urine 1 <=1 /HPF 07/01/2024 9:19 PM LEADERSHIP DEVELOPMENT INSTRUCTOR LABORATORY Urine MID-STREAM URINE SPECIMEN / Unknown Non-blood Collection / Unknown 07/01/2024 9:07 PM LEADERSHIP DEVELOPMENT INSTRUCTOR 07/01/2024 9:11 PM LEADERSHIP DEVELOPMENT INSTRUCTOR Narrative [facility] - 07/01/2024 9:19 PM LEADERSHIP DEVELOPMENT INSTRUCTOR Urine Culture not indicated us Nain Locke DO LAB - URINE ORDERABLES Final R esult LABORATORY [facility] [address] Lab (1st floor, no room number) [place] [address], [facility] * Potassium random urine (07/01/2024 9:07 PM LEADERSHIP DEVELOPMENT INSTRUCTOR) Only the most recent of5 resultswithin the time period is included. Potassium Urine 43.8 mmol/L 11:52 AM LEADERSHIP DEVELOPMENT INSTRUCTOR [facility] Comment:The reference ranges have not been established in urine potassium. The results should be integrated into the clinical context for interpretation. Urine MID-STREAM URINE SPECIMEN / Unknown Non-blood Collection / Unknown 07/01/2024 9:07 PM LEADERSHIP DEVELOPMENT INSTRUCTOR 07/01/2024 9:11 PM LEADERSHIP DEVELOPMENT INSTRUCTOR us Mike Teran MD LAB - URINE ORDERABLES Final Result [facility] LABORATORY [facility] Core Lab [address] [facility], [address] [address] * Osmolality urine (07/01/2024 9:07 PM LEADERSHIP DEVELOPMENT INSTRUCTOR) Only the most recent of2 resultswithin the time period is included. Osmolality Urine 311 100 - 1,200 mmol/kg 07/02/2024 11:01 AM LEADERSHIP DEVELOPMENT INSTRUCTOR [facility] LABORATORY Urine MID-STREAM URINE SPECIMEN / Unknown Non-blood Collection / Unknown 07/01/2024 9:07 PM LEADERSHIP DEVELOPMENT INSTRUCTOR 07/01/2024 9:11 PM LEADERSHIP DEVELOPMENT INSTRUCTOR Narrative [facility] LABORATORY - 07/02/2024 11:01 AM LEADERSHIP DEVELOPMENT INSTRUCTOR Reference Ranges depend on patient's hydration status and renal function. Neonates: 75-300 mmol/kg 2 years and older, random specimens: 100-1200 mmol/kg; Greater than 850 mmol/kg after 12 hour fluid restriction Urine/serum osmolality ratio: 2 years and older: 1.0-3.0; 3.0-4.7 after 12 hour fluid restriction us Mike Teran MD LAB - URINE ORDERABLES Final Result Performing Organization Address City/[facility] de Phone Number LABORATORY [facility] Lab [address] [facility], [address] * Chloride random urine (07/01/2024 9:07 PM LEADERSHIP DEVELOPMENT INSTRUCTOR) Only the most recent of5 resultswithin the time period is included. Chloride Urine mmol/L <20 mmol/L 07/02/2024 11:34 AM LEADERSHIP DEVELOPMENT INSTRUCTOR LABORATORY Comment:The reference ranges have not been established in urine chloride. The results should be integrated into the clinical context for interpretation. Urine MID-STREAM URINE SPECIMEN / Unknown Non-blood Collection / Unknown 07/01/2024 9:07 PM LEADERSHIP DEVELOPMENT INSTRUCTOR 07/01/2024 9:11 PM LEADERSHIP DEVELOPMENT INSTRUCTOR us Mike Teran MD LAB - URINE ORDERABLES Final Result Performing Organization Address [facility] de Phone Number LABORATORY [facility] Core Lab [address] [facility], [address] [place], [place] [id number] * PTH Related Peptide Test (07/01/2024 7:18 PM LEADERSHIP DEVELOPMENT INSTRUCTOR) Parathyroid Hormone-Related Peptide (PTHRP) 1.6 < or = 4.2 pmol/L 07/07/2024 2:55 PM LEADERSHIP DEVELOPMENT INSTRUCTOR [facility] Comment: ADDITIONAL INFORMATION This test was developed and its performance characteristics determined by [facility] in a manner consistent with CLIA requirements. This test has not been cleared or approved by the U.S. Food and Drug Administration. Test Performed by: [facility] [address] [address] [place] [address] Ship Unloader: Alvaro Renner Ph.D.; CLIA# [id number] Blood STRUCTURE OF RIGHT UPPER LIMB / Unknown Venipuncture / Unknown 07/01/2024 7:18 PM LEADERSHIP DEVELOPMENT INSTRUCTOR 07/01/2024 7:27 PM LEADERSHIP DEVELOPMENT INSTRUCTOR Nain Locke DO LAB - BLOOD ORDERABLES Final R esult [facility] [address] [place], [place] [address] [phone] * Phosphorus (07/01/2024 7:18 PM LEADERSHIP DEVELOPMENT INSTRUCTOR) Only the most recent of12 resultswithin the time period is included. Phosphorus 3.3 2.5 - 4.5 mg/dL 07/01/2024 9:41 PM LEADERSHIP DEVELOPMENT INSTRUCTOR LABORATORY Blood STRUCTURE OF RIGHT UPPER LIMB / Unknown Venipuncture / Unknown 07/01/2024 7:18 PM LEADERSHIP DEVELOPMENT INSTRUCTOR 07/01/2024 7:27 PM LEADERSHIP DEVELOPMENT INSTRUCTOR Nain Locke DO LAB - BLOOD ORDERABLES Final R eleni LABORATORY [facility] [address] Lab (1st floor, no room number) [place] [address] * Parathyroid Hormone Intact (07/01/2024 7:18 PM LEADERSHIP DEVELOPMENT INSTRUCTOR) Only the most recent of3 resultswithin the time period is included. Parathyroid Hormone Intact 28 15 - 65 pg/mL 07/01/2024 7:51 PM LEADERSHIP DEVELOPMENT INSTRUCTOR LABORATORY Blood STRUCTURE OF RIGHT UPPER LIMB / Unknown Venipuncture / Unknown 07/01/2024 7:18 PM LEADERSHIP DEVELOPMENT INSTRUCTOR 07/01/2024 7:27 PM LEADERSHIP DEVELOPMENT INSTRUCTOR Narrative LABORATORY - 07/01/2024 7:51 PM LEADERSHIP DEVELOPMENT INSTRUCTOR This result was obtained with the [employer] PTH STAT assay. This reference range differs from PTH assays used in other [facility] laboratories. Nain Locke DO LAB - BLOOD ORDERABLES Final R esult [facility] [address] Lab (1st floor, no room number) [address] * (ABNORMAL) Ionized Calcium (07/01/2024 3:35 PM LEADERSHIP DEVELOPMENT INSTRUCTOR) Pathologist [facility] Calcium Ionized Whole Blood 5.6(H) 4.4 - 5.2 mg/dL 07/01/2024 3:45 PM LEADERSHIP DEVELOPMENT INSTRUCTOR LABORATORY Blood VENOUS LINE / Unknown Venipuncture / Unknown 07/01/2024 3:35 PM LEADERSHIP DEVELOPMENT INSTRUCTOR 07/01/2024 3:42 PM LEADERSHIP DEVELOPMENT INSTRUCTOR Jesus Bobby MD LAB - BLOOD ORDERABLES F inal Result Performing Organization Address City/[facility]/ZIP Co de Phone Number [facility] Lab [address] Lab (1st floor, no room number) [address] * Extra Blue Top Tube (07/01/2024 2:14 PM LEADERSHIP DEVELOPMENT INSTRUCTOR) Only the most recent of4 resultswithin the time period is included. [facility] Hold Specimen JIC 07/01/2024 3:31 PM LEADERSHIP DEVELOPMENT INSTRUCTOR LABORATORY Blood STRUCTURE OF RIGHT UPPER LIMB / Unknown Venipuncture / Unknown 07/01/2024 2:14 PM LEADERSHIP DEVELOPMENT INSTRUCTOR 07/01/2024 2:20 PM LEADERSHIP DEVELOPMENT INSTRUCTOR Jesus Bobby MD LAB - BLOOD ORDERABLES F inal Result [facility] [address] Lab (1st floor, no room number) [address] * (ABNORMAL) CBC with platelets and differential (07/01/2024 2:14 PM LEADERSHIP DEVELOPMENT INSTRUCTOR) Only the most recent of4 resultswithin the time period is included. Pathologist [facility] WBC Count 9.1 4.0 - 11.0 10e3/uL 07/01/2024 2:23 PM LEADERSHIP DEVELOPMENT INSTRUCTOR [facility] RBC Count 4.12 3.80 - 5.20 10e6/uL 07/01/2024 2:23 PM LEADERSHIP DEVELOPMENT INSTRUCTOR [facility] Hemoglobin 11.1(L) 11.7 - 15.7 g/dL 07/01/2024 2:23 PM LEADERSHIP DEVELOPMENT INSTRUCTOR [facility] Hematocrit 32.0(L) 35.0 - 47.0 % 07/01/2024 2:23 PM LEADERSHIP DEVELOPMENT INSTRUCTOR [facility] MCV 78 78 - 100 fL 07/01/2024 2:23 PM LEADERSHIP DEVELOPMENT INSTRUCTOR [facility] MCH 26.9 26.5 - 33.0 pg 07/01/2024 2:23 PM LEADERSHIP DEVELOPMENT INSTRUCTOR [facility] MCHC 34.7 31.5 - 36.5 g/dL 07/01/2024 2:23 PM LEADERSHIP DEVELOPMENT INSTRUCTOR [facility] RDW 14.0 10.0 - 15.0 % 07/01/2024 2:23 PM LEADERSHIP DEVELOPMENT INSTRUCTOR [facility] Platelet Count 531(H) 150 - 450 10e3/uL 07/01/2024 2:23 PM LEADERSHIP DEVELOPMENT INSTRUCTOR [facility] % Neutrophils 70 % 07/01/2024 2:23 PM LEADERSHIP DEVELOPMENT INSTRUCTOR [facility] % Lymphocytes 20 % 07/01/2024 2:23 PM LEADERSHIP DEVELOPMENT INSTRUCTOR [facility] % Monocytes 7 % 07/01/2024 2:23 PM LEADERSHIP DEVELOPMENT INSTRUCTOR [facility] % Eosinophils 1 % 07/01/2024 2:23 PM LEADERSHIP DEVELOPMENT INSTRUCTOR [facility] % Basophils 1 % 07/01/2024 2:23 PM LEADERSHIP DEVELOPMENT INSTRUCTOR [facility] % Immature Granulocytes 0 % 07/01/2024 2:23 PM LEADERSHIP DEVELOPMENT INSTRUCTOR [facility] NRBCs per 100 WBC 0 <1 /100 025 2:23 PM LEADERSHIP DEVELOPMENT INSTRUCTOR [facility] Absolute Neutrophils 6.4 1.6 - 8.3 10e3/uL 07/01/2024 2:23 PM LEADERSHIP DEVELOPMENT INSTRUCTOR [facility] Absolute Lymphocytes 1.8 0.8 - 5.3 10e3/uL 07/01/2024 2:23 PM LEADERSHIP DEVELOPMENT INSTRUCTOR [facility] Absolute Monocytes 0.6 0.0 - 1.3 10e3/uL 07/01/2024 2:23 PM LEADERSHIP DEVELOPMENT INSTRUCTOR [facility] Absolute Eosinophils 0.1 0.0 - 0.7 10e3/uL 07/01/2024 2:23 PM LEADERSHIP DEVELOPMENT INSTRUCTOR [facility] Absolute Basophils 0.1 0.0 - 0.2 10e3/uL 07/01/2024 2:23 PM LEADERSHIP DEVELOPMENT INSTRUCTOR [facility] Absolute Immature Granulocytes 0.0 <=0.4 10e3/uL 07/01/2024 2:23 PM LEADERSHIP DEVELOPMENT INSTRUCTOR LABORATORY Absolute NRBCs 0.0 10e3/uL 07/01/2024 2:23 PM LEADERSHIP DEVELOPMENT INSTRUCTOR LABORATORY Blood STRUCTURE OF RIGHT UPPER LIMB / Unknown Venipuncture / Unknown 07/01/2024 2:14 PM LEADERSHIP DEVELOPMENT INSTRUCTOR 07/01/2024 2:20 PM LEADERSHIP DEVELOPMENT INSTRUCTOR Jesus Bobby MD LAB - BLOOD ORDERABLES F inal Result [facility] [address] Lab (1st floor, no room number) [place] [address] * Troponin T, High Sensitivity (07/01/2024 2:14 PM LEADERSHIP DEVELOPMENT INSTRUCTOR) Only the most recent of3 resultswithin the time period is included. [facility] Troponin T, High Sensitivity <6 <=14 ng/L 07/01/2024 2:45 PM LEADERSHIP DEVELOPMENT INSTRUCTOR [facility] Comment: Either a High Sensitivity [...] Unknown Venipuncture / Unknown 07/01/2024 2:14 PM LEADERSHIP DEVELOPMENT INSTRUCTOR 07/01/2024 2:20 PM LEADERSHIP DEVELOPMENT INSTRUCTOR Jesus Bobby MD LAB - BLOOD ORDERABLES F inal Result LABORATORY [facility] [address] Lab (1st floor, no room number) [place] [address] * Vitamin D Deficiency (07/01/2024 2:14 PM LEADERSHIP DEVELOPMENT INSTRUCTOR) [facility] Vitamin D, Total (25-Hydroxy) 20 20 - 50 ng/mL 07/02/2024 4:14 AM LEADERSHIP DEVELOPMENT INSTRUCTOR [facility] LAB[facility]ATORY Comment:optimum levels Blood STRUCTURE OF RIGHT UPPER LIMB / Unknown Venipuncture / Unknown 07/01/2024 2:14 PM LEADERSHIP DEVELOPMENT INSTRUCTOR 07/01/2024 2:20 PM LEADERSHIP DEVELOPMENT INSTRUCTOR Narrative U LABORATORY - 07/02/2024 4:14 AM LEADERSHIP DEVELOPMENT INSTRUCTOR Season, race, dietary intake, and treatment affect the concentration of 71-hyxvmii-Wybtssd D. Values may decrease during winter months and increase during summer months. Vitamin D determination is routinely performed by an immunoassay specific for 25 hydroxyvitamin D3. If an individual is on vitamin D2(ergocalciferol) supplementation, please specify 25 [place] vitamin D2 and D3 level determination by LCMSMS test [id number]. Nain Locke DO LAB - BLOOD ORDERABLES Final R esult LABORATORY [facility] [place] [facility] [address] [facility], [address] [place] [address] * Lipase (07/01/2024 2:14 PM LEADERSHIP DEVELOPMENT INSTRUCTOR) [facility] Lipase 29 13 - 60 U/L 07/01/2024 2:58 PM LEADERSHIP DEVELOPMENT INSTRUCTOR LABORATORY Blood STRUCTURE OF RIGHT UPPER LIMB / Unknown Venipuncture / Unknown 07/01/2024 2:14 PM LEADERSHIP DEVELOPMENT INSTRUCTOR 07/01/2024 2:20 PM LEADERSHIP DEVELOPMENT INSTRUCTOR Jesus Bobby MD LAB - BLOOD ORDERABLES F inal Result LABORATORY [facility] [address] Lab (1st floor, no room number) [place] [address] * (ABNORMAL) Hepatic panel (07/01/2024 2:14 PM LEADERSHIP DEVELOPMENT INSTRUCTOR) [facility] Protein Total 8.8(H) 6.4 - 8.3 g/dL 07/01/2024 2:58 PM LEADERSHIP DEVELOPMENT INSTRUCTOR [facility] Albumin 5.6(H) 3.5 - 5.2 g/dL 07/01/2024 2:58 PM LEADERSHIP DEVELOPMENT INSTRUCTOR LABORATORY Bilirubin Total 0.3 <=1.2 mg/dL 07/01/2024 2:58 PM LEADERSHIP DEVELOPMENT INSTRUCTOR [facility] Alkaline Phosphatase 84 40 - 150 U/L 07/01/2024 2:58 PM LEADERSHIP DEVELOPMENT INSTRUCTOR LABORATORY AST 18 0 - 45 U/L 07/01/2024 2:58 PM LEADERSHIP DEVELOPMENT INSTRUCTOR LABORATORY ALT 9 0 - 50 U/L 07/01/2024 2:58 PM LEADERSHIP DEVELOPMENT INSTRUCTOR LABORATORY Bilirubin Direct <0.20 0.00 - 0.30 mg/dL 07/01/2024 2:58 PM LEADERSHIP DEVELOPMENT INSTRUCTOR LABORATORY Blood STRUCTURE OF RIGHT UPPER LIMB / Unknown Venipuncture / Unknown 07/01/2024 2:14 PM LEADERSHIP DEVELOPMENT INSTRUCTOR 07/01/2024 2:20 PM LEADERSHIP DEVELOPMENT INSTRUCTOR Jesus Bobby MD LAB - BLOOD ORDERABLES F inal Result [facility] [address] [facility] Lab (1st floor, no room number) [place] [address] * HCG QUALitative (blood) (07/01/2024 2:14 PM LEADERSHIP DEVELOPMENT INSTRUCTOR) Only the most recent of2 resultswithin the time period is included. [facility] hCG Serum Qualitative Negative Negative RUKHSANA 07/01/2024 2:50 PM LEADERSHIP DEVELOPMENT INSTRUCTOR LABORATORY Comment:This test is for scr eening purposes. Results should be interpreted along with the clinical picture. Confirmation testing is available if warranted by ordering [id number], HCG Quantitative . Blood STRUCTURE OF RIGHT UPPER LIMB / Unknown Venipuncture / Unknown 07/01/2024 2:14 PM LEADERSHIP DEVELOPMENT INSTRUCTOR 07/01/2024 2:20 PM LEADERSHIP DEVELOPMENT INSTRUCTOR Jesus Bobby MD LAB - BLOOD ORDERABLES F inal Result [facility] [address] [facility], no room number) [place] [address], [facility] * EKG 12 lead (07/01/2024 11:37 AM LEADERSHIP DEVELOPMENT INSTRUCTOR) Only the most recent of7 resultswithin the time period is included. Systolic Blood Pressure mmHg RADIOLOGY RESULTS Diastolic Blood Pressure mmHg RADIOLOGY RESULTS Ventricular Rate 88 BPM RAD IOLOGY RESULTS Atrial Rate 88 BPM RADIOLOG Y RESULTS AZ Interval 136 ms RADIOLOG Y RESULTS QRS Duration 90 ms RADIOLO GY RESULTS QT 536 ms RADIOLOGY RESULTS QTc 648 ms RADIOLOGY RESULTS P Patterson 70 degrees RADIOLOGY RESULTS R AXIS 84 degrees RADIOLOGY RESULTS T Patterson 78 degrees RADIOLOGY RESULTS Interpretation ECG Sinus rhythm Left ventricular hypertrophy with repolarization abnormality ( Sokolow-Hernandez ) Marked ST abnormality, possible anterior subendocardial injury Prolonged QT Abnormal ECG When compared with ECG of 18-Jun-2024 11:14, Significant changes have occurred Unconfirmed report - interpretation of this ECG is computer generated - see medical record for final interpretation Confirmed by - EMERGENCY ROOM, PHYSICIAN ([id number]), newspaper or periodical editor NETTIE KIM ([id number]) on 07/01/2024 12:28:51 PM RADIOLOGY RESULTS 07/01/2024 11:3 7 AM LEADERSHIP DEVELOPMENT INSTRUCTOR 07/01/2024 12:28 PM LEADERSHIP DEVELOPMENT INSTRUCTOR Jesus Bobby MD ECG ORDERABLES Edited R esult - Final RADIOLOGY RESULTS * Influenza A/B, RSV and SARS-CoV2 PCR (COVID-19) Nasopharyngeal (07/01/2024 11:32 AM LEADERSHIP DEVELOPMENT INSTRUCTOR) Pathologist [facility] Influenza A PCR Negative Negative 07/01/2024 12:22 PM LEADERSHIP DEVELOPMENT INSTRUCTOR [facility] Influenza B PCR Negative Negative 07/01/2024 12:22 PM LEADERSHIP DEVELOPMENT INSTRUCTOR [facility] RSV PCR Negative Negative 07/01/2024 12:22 PM LEADERSHIP DEVELOPMENT INSTRUCTOR [facility] SARS CoV2 PCR Negative Negative 07/01/2024 12:22 PM LEADERSHIP DEVELOPMENT INSTRUCTOR [facility] Comment:NEGATIVE: SARS-CoV-2 (COVID-19) RNA not detected, presumed negative. Swab NASOPHARYNGEAL STRUCTURE / Unknown Non-blood Collection / Unknown 07/01/2024 11:32 AM LEADERSHIP DEVELOPMENT INSTRUCTOR 07/01/2024 11:39 AM LEADERSHIP DEVELOPMENT INSTRUCTOR [facility] LABORATORY - 07/01/2024 12:22 PM LEADERSHIP DEVELOPMENT INSTRUCTOR Testing was performed using the Xpert Xpress CoV2/Flu/RSV Assay on the [employer] GeneXpert Instrument. This test should be ordered [...] management. This test was validated by the [facility]. These laboratories are certified under the Clinical Laboratory Improvement Amendments of 1988 (CLIA-88) as qualified to perfom high complexity laboratory testing. Jesus Bobby MD LAB - MICRO GENERAL SCHUYLER TEMPLE Final Result LABORATORY [facility] [address] Lab (1st floor, no room number) [place] [address], [facility] * (ABNORMAL) Renal panel (06/20/2024 7:23 AM LEADERSHIP DEVELOPMENT INSTRUCTOR) Only the most recent of4 resultswithin the time period is included. Sodium 145 135 - 145 mmol/L 06/20/2024 9:35 AM [facility] Potassium 4.5 3.4 - 5.3 mmol/L 06/20/2024 9:35 AM [facility] Chloride 105 98 - 107 mmol/L 06/20/2024 9:35 AM [facility] Carbon Dioxide (CO2) 27 22 - 29 mmol/L 06/20/2024 9:35 AM [facility] Anion Gap 13 7 - 15 mmol/L 06/20/2024 9:35 AM [facility] Glucose 82 70 - 99 mg/dL 06/20/2024 9:35 AM [facility] Urea Nitrogen 26.8(H) 6.0 - 20.0 mg/dL 06/20/2024 9:35 AM LEADERSHIP DEVELOPMENT INSTRUCTOR LABORATORY Creatinine 2.09(H) 0.51 - 0.95 mg/dL 06/20/2024 9:35 AM LEADERSHIP DEVELOPMENT INSTRUCTOR LABORATORY GFR Estimate 31(L) >60 mL/min/1.7 3m2 06/20/2024 9:35 AM LEADERSHIP DEVELOPMENT INSTRUCTOR LABORATORY Comment:eGFR calculated usin 2020 CKD-EPI equation. Calcium 9.9 8.8 - 10.4 mg/dL 06/20/2024 9:35 AM LEADERSHIP DEVELOPMENT INSTRUCTOR LABORATORY Comment:Reference intervals for this test were updated on 01/08/2024 to reflect our healthy population more accurately. There may be differences in the flagging of prior results with similar values performed with this method. Those prior results can be interpreted in the context of the updated reference intervals. Albumin 3.9 3.5 - 5.2 g/dL 06/20/2024 9:35 AM [facility] Phosphorus 2.9 2.5 - 4.5 mg/dL 06/20/2024 9:35 AM [facility] Blood STRUCTURE OF LEFT HAND / Unknown Venipuncture / Unknown 06/20/2024 7:23 AM LEADERSHIP DEVELOPMENT INSTRUCTOR 06/20/2024 7:47 AM LEADERSHIP DEVELOPMENT INSTRUCTOR us Javon Devine MD LAB - BLOOD ORDERABLES Final Res ult LABORATORY [facility] [address] Lab (1st floor, no room number) [place] [address], [facility] * Sodium random urine (06/19/2024 5:13 PM LEADERSHIP DEVELOPMENT INSTRUCTOR) Only the most recent of4 resultswithin the time period is included. Sodium Urine mmol/L 121 mmol/L 06/19/2024 5:45 PM LEADERSHIP DEVELOPMENT INSTRUCTOR LABORATORY Comment:The reference ranges have not been established in urine sodium. The results should be integrated into the clinical context for interpretation. Urine URINE SPECIMEN OBTAINED BY CLEAN CATCH PROCEDURE / Unknown Non-blood Collection / Unknown 06/19/2024 5:13 PM LEADERSHIP DEVELOPMENT INSTRUCTOR 06/19/2024 5:19 PM LEADERSHIP DEVELOPMENT INSTRUCTOR Azar Umanzor MD LAB - URINE ORDERABLES Final Res ult [facility] [address] Lab (1st floor, no room number) [place] [address], [facility] * Creatinine random urine (06/17/2024 1:39 PM LEADERSHIP DEVELOPMENT INSTRUCTOR) Creatinine Urine mg/dL 32.8 mg/dL 06/17/2024 2:08 PM LEADERSHIP DEVELOPMENT INSTRUCTOR LABORATORY Comment:The reference ranges have not been established in urine creatinine. The results should be integrated into the clinical context for interpretation. Urine URINE SPECIMEN OBTAINED BY CLEAN CATCH PROCEDURE / Unknown Non-blood Collection / Unknown 06/17/2024 1:39 PM LEADERSHIP DEVELOPMENT INSTRUCTOR 06/17/2024 1:45 PM LEADERSHIP DEVELOPMENT INSTRUCTOR Mike Teran MD LAB - URINE ORDERABLES Final Result Performing Organization Address [facility] Co de Phone Number [facility] [address] Lab (1st floor, no room number) [place] [address], [facility] * MR Knee Left w/o Contrast (06/17/2024 11:35 AM LEADERSHIP DEVELOPMENT INSTRUCTOR) Anatomical Region Laterality Modality Left Knee, SUBRAD MR MSK, UMP MR MSK, RAD MR Magnetic Resonance Impressions 06/17/2024 11:59 AM LEADERSHIP DEVELOPMENT INSTRUCTOR IMPRESSION: 1. Subtle soft tissue edema superficial to an intact tibial collateral ligament. Correlate clinically for a low-grade sprain. 2. Nonspecific focus of bone marrow edema along the posterior aspect of the lateral femoral condyle. Correlate for bone contusion. 3. The anterior and posterior cruciate ligaments, lateral supporting structures, and bilateral menisci are intact. JESSICA EDWARD MD Narrative 06/17/2024 11:59 AM LEADERSHIP DEVELOPMENT INSTRUCTOR EXAMINATION: MRI of the left knee without [...] Knee Left 3 Views (06/16/2024 6:16 PM LEADERSHIP DEVELOPMENT INSTRUCTOR) Only the most recent of2 resultswithin the time period is included. Anatomical Region Laterality Modality Thigh, Knee, Leg Left Digital Radiogr aphy 06/16/2024 6:16 PM LEADERSHIP DEVELOPMENT INSTRUCTOR Impressions 06/16/2024 6:36 PM LEADERSHIP DEVELOPMENT INSTRUCTOR IMPRESSION: Normal left knee joint spacing and alignment. No sizable effusion. Negative for acute fracture. Narrative 06/16/2024 6:36 PM LEADERSHIP DEVELOPMENT INSTRUCTOR EXAM: XR KNEE LEFT 3 VIEWS LOCATION: [facility] DATE: 06/16/2024 INDICATION: fall, medial pain COMPARISON: None. Procedure Note Stephon Farias MD - 06/16/2024 EXAM: XR KNEE LEFT 3 VIEWS LOCATION: [facility] DATE: 06/16/2024 INDICATION: fall, medial pain COMPARISON: None. IMPRESSION: Normal left knee joint spacing and alignment. No sizable effusion.Negative for acute fracture. Jamil Madison MD IMG DIAGNOSTIC IMAGING OR DERABLES Final Result * CT Knee Left w/o Contrast (05/31/2024 2:33 PM LEADERSHIP DEVELOPMENT INSTRUCTOR) Anatomical Region Laterality Modality Left Knee, SUBRAD CT MSK, UMP CT MSK, RAD CT Computed Tomography 05/31/2024 2:33 PM LEADERSHIP DEVELOPMENT INSTRUCTOR Impressions 05/31/2024 2:41 PM LEADERSHIP DEVELOPMENT INSTRUCTOR IMPRESSION: 1. No evidence for acute left knee fracture. Normal joint spacing and alignment. 2. Trace joint effusion. Narrative 05/31/2024 2:41 PM LEADERSHIP DEVELOPMENT INSTRUCTOR EXAM: CT KNEE LEFT W/O CONTRAST LOCATION: [facility] DATE: 05/31/2024 INDICATION: syncope with knee [...] EXAM: CT KNEE LEFT W/O CONTRAST LOCATION: [facility] DATE: 05/31/2024 INDICATION: syncope with knee [...] (ABNORMAL) Comprehensive metabolic panel (05/31/2024 8:35 AM LEADERSHIP DEVELOPMENT INSTRUCTOR) Only the most recent of2 resultswithin the time period is included. Sodium 141 135 - 145 mmol/L 05/31/2024 9:07 AM [facility] Potassium 4.2 3.4 - 5.3 mmol/L 05/31/2024 9:07 AM [facility] Carbon Dioxide (CO2) 35(H) 22 - 29 mmol/L 05/31/2024 9:07 AM [facility] Anion Gap 10 7 - 15 mmol/L 05/31/2024 9:07 AM [facility] Urea Nitrogen 31.3(H) 6.0 - 20.0 mg/dL 05/31/2024 9:07 AM [facility] Creatinine 1.99(H) 0.51 - 0.95 mg/dL 05/31/2024 9:07 AM LEADERSHIP DEVELOPMENT INSTRUCTOR LABORATORY GFR Estimate 33(L) >60 mL/min/1.7 3m2 05/31/2024 9:07 AM [facility] Comment:eGFR calculated 2020 CKD-EPI equation. Calcium 10.2 8.8 - 10.4 mg/dL 05/31/2024 9:07 AM [facility] Comment:Reference intervals for this test were updated on 01/08/2024 to reflect our healthy population more accurately. There may be differences in the flagging of prior results with similar values performed with this method. Those prior results can be interpreted in the context of the updated reference intervals. Chloride 96(L) 98 - 107 mmol/L 05/31/2024 9:07 AM [facility] Glucose 126(H) 70 - 99 mg/dL 05/31/2024 9:07 AM [facility] Alkaline Phosphatase 75 40 - 150 U/L 05/31/2024 9:07 AM [facility] AST 22 0 - 45 U/L 05/31/2024 9:07 AM [facility] ALT 12 0 - 50 U/L 05/31/2024 9:07 AM [facility] Protein Total 6.8 6.4 - 8.3 g/dL 05/31/2024 9:07 AM [facility] Albumin 4.1 3.5 - 5.2 g/dL 05/31/2024 9:07 AM [facility] Bilirubin Total <0.2 <=1.2 mg/dL 05/31/2024 9:07 AM [facility] Blood STRUCTURE OF LEFT HAND / Unknown Venipuncture / Unknown 05/31/2024 8:35 AM LEADERSHIP DEVELOPMENT INSTRUCTOR 05/31/2024 8:44 AM LEADERSHIP DEVELOPMENT INSTRUCTOR us Sean Freeman MD LAB - BLOOD ORDERABLES Final Result LABORATORY [facility] [address] [facility], no room number) [place] [address], [facility] * Ammonia (05/31/2024 8:35 AM LEADERSHIP DEVELOPMENT INSTRUCTOR) Ammonia 20 11 - 51 umol/L 05/31/2024 9:04 AM LEADERSHIP DEVELOPMENT INSTRUCTOR [facility] Blood STRUCTURE OF LEFT HAND / Unknown Venipuncture / Unknown 05/31/2024 8:35 AM LEADERSHIP DEVELOPMENT INSTRUCTOR 05/31/2024 8:44 AM LEADERSHIP DEVELOPMENT INSTRUCTOR us Sean Freeman MD LAB - BLOOD ORDERABLES Final Result [facility] LABORATORY [facility] [address] Lab (1st floor, no room number) [place] [address] * XR Ankle Left G/E 3 Views (05/29/2024 4:02 PM LEADERSHIP DEVELOPMENT INSTRUCTOR) Anatomical Region Laterality Modality Leg, Ankle, Foot Left Digital Radiogr aphy Impressions 05/29/2024 4:09 PM LEADERSHIP DEVELOPMENT INSTRUCTOR IMPRESSION: No fracture. Intact ankle mortise and distal syndesmosis. HUSEYIN MCKEON MD SYSTEM ID: [id number] Narrative 05/29/2024 4:09 PM LEADERSHIP DEVELOPMENT INSTRUCTOR XR ANKLE LEFT G/E 3 VIEWS 05/29/2024 4:02 PM HISTORY: fall, ankle pain COMPARISON: None. Procedure Note Huseyin Mckeon MD - 05/29/2024 XR ANKLE LEFT G/E 3 VIEWS 05/29/2024 4:02 PM HISTORY: fall, ankle pain COMPARISON: None. IMPRESSION: No fracture. Intact ankle mortise and distal syndesmosis. HUSEYIN MCKEON MD SYSTEM ID: [id number] us Jamil Carlin MD IMG DIAGNOSTIC IMAGING OR DERABLES Final Result * Extra Red Top Tube (05/29/2024 2:41 PM LEADERSHIP DEVELOPMENT INSTRUCTOR) Only the most recent of2 resultswithin the time period is included. Pathologist [facility] Hold Specimen [facility] 05/29/2024 4:16 PM LEADERSHIP DEVELOPMENT INSTRUCTOR [facility] Blood BLOOD SPECIMEN / Unknown Venipuncture / Unknown 05/29/2024 2:41 PM LEADERSHIP DEVELOPMENT INSTRUCTOR 05/29/2024 3:08 PM LEADERSHIP DEVELOPMENT INSTRUCTOR us Jamil Carlin MD LAB - BLOOD ORDERABLES Fi nal Result LABORATORY [facility] [address] Lab (1st floor, no room number) [place] [address] * TSH with free T4 reflex (05/29/2024 2:41 PM LEADERSHIP DEVELOPMENT INSTRUCTOR) TSH 1.95 0.30 - 4.20 uIU/mL 05/29/2024 3:37 PM LEADERSHIP DEVELOPMENT INSTRUCTOR LABORATORY Blood BLOOD SPECIMEN / Unknown Venipuncture / Unknown 05/29/2024 2:41 PM LEADERSHIP DEVELOPMENT INSTRUCTOR 05/29/2024 3:08 PM LEADERSHIP DEVELOPMENT INSTRUCTOR Jamil Carlin MD LAB - BLOOD ORDERABLES Fi nal Result Performing Organization Address [facility]/ZIP Co de Phone Number LABORATORY [facility] [address] (1st floor, no room number) [place] [phone] * (ABNORMAL) UA with Microscopic (05/29/2024 2:41 PM LEADERSHIP DEVELOPMENT INSTRUCTOR) Color Urine Light Yellow Colorless, Straw, Light Yellow, Yellow 05/29/2024 3:29 PM LEADERSHIP DEVELOPMENT INSTRUCTOR LABORATORY Appearance Urine Clear Clear 05/29/20 24 3:29 PM LEADERSHIP DEVELOPMENT INSTRUCTOR LABORATORY Glucose Urine Negative Negative mg/dL 05/29/2024 3:29 PM LEADERSHIP DEVELOPMENT INSTRUCTOR LABORATORY Bilirubin Urine Negative Negative 3:29 PM LEADERSHIP DEVELOPMENT INSTRUCTOR LABORATORY Ketones Urine Negative Negative mg/dL 05/29/2024 3:29 PM LEADERSHIP DEVELOPMENT INSTRUCTOR LABORATORY Specific [place] Urine 1.010 1.003 - 1.035 05/29/2024 3:29 PM LEADERSHIP DEVELOPMENT INSTRUCTOR LABORATORY Blood Urine Negative Negative 05/29/2024 3:29 PM LEADERSHIP DEVELOPMENT INSTRUCTOR LABORATORY pH Urine 8.0(H) 5.0 - 7.0 05/29/2024 3:29 PM LEADERSHIP DEVELOPMENT INSTRUCTOR LABORATORY Protein Albumin Urine 50(A) Negative mg/dL 05/29/2024 3:29 PM LEADERSHIP DEVELOPMENT INSTRUCTOR LABORATORY Urobilinogen Urine Normal Normal, 2.0 mg/dL 05/29/2024 3:29 PM LEADERSHIP DEVELOPMENT INSTRUCTOR LABORATORY Nitrite Urine Negative Negative 05/29/2024 3:29 PM LEADERSHIP DEVELOPMENT INSTRUCTOR LABORATORY Leukocyte Esterase Urine Negative Negative 05/29/2024 3:29 PM LEADERSHIP DEVELOPMENT INSTRUCTOR LABORATORY Bacteria Urine Few(A) None Seen /HPF 05/29/2024 3:29 PM LEADERSHIP DEVELOPMENT INSTRUCTOR LABORATORY RBC Urine 1 <=2 /HPF 05/29/2024 3:29 PM LEADERSHIP DEVELOPMENT INSTRUCTOR LABORATORY WBC Urine 2 <=5 /HPF 05/29/2024 3:29 PM LEADERSHIP DEVELOPMENT INSTRUCTOR LABORATORY Squamous Epithelials Urine <1 <=1 /HPF 05/29/2024 3:29 PM LEADERSHIP DEVELOPMENT INSTRUCTOR LABORATORY Hyaline Casts Urine 3(H) <=2 /LPF 05/29/2024 3:29 PM LEADERSHIP DEVELOPMENT INSTRUCTOR LABORATORY Urine URINE SPECIMEN OBTAINED BY CLEAN CATCH PROCEDURE / Unknown Non-blood Collection / Unknown 05/29/2024 2:41 PM LEADERSHIP DEVELOPMENT INSTRUCTOR 05/29/2024 3:19 PM LEADERSHIP DEVELOPMENT INSTRUCTOR us Jamil Carlin MD LAB - URINE ORDERABLES Fi nal Result LABORATORY [facility] [address] Lab (1st floor, no room number) [place] [address] * (ABNORMAL) Protein random urine (05/29/2024 2:41 PM LEADERSHIP DEVELOPMENT INSTRUCTOR) Total Protein Urine mg/dL 44.4 mg/dL 05/29/2024 3:50 PM LEADERSHIP DEVELOPMENT INSTRUCTOR LABORATORY Comment:The reference ranges have not been established in urine protein. The results should be integrated into the clinical context for interpretation. Total Protein Urine mg/mg Creat 1.14(H) 0.00 - 0.20 mg/mg Cr 05/29/2024 3:50 PM LEADERSHIP DEVELOPMENT INSTRUCTOR LABORATORY Creatinine Urine mg/dL 38.9 mg/dL 05/29/2024 3:50 PM LEADERSHIP DEVELOPMENT INSTRUCTOR LABORATORY Comment:The reference ranges have not been established in urine creatinine. The results should be integrated into the clinical context for interpretation. Urine URINE SPECIMEN OBTAINED BY CLEAN CATCH PROCEDURE / Unknown Non-blood Collection / Unknown 05/29/2024 2:41 PM LEADERSHIP DEVELOPMENT INSTRUCTOR 05/29/2024 3:18 PM LEADERSHIP DEVELOPMENT INSTRUCTOR Jamil Carlin MD LAB - URINE ORDERABLES Fi nal Result [facility] Lab [address] [facility] Lab (1st floor, no room number) [place] [address], [facility] * (ABNORMAL) Albumin Random Urine Quantitative with Creat Ratio (05/29/2024 2:41 PM LEADERSHIP DEVELOPMENT INSTRUCTOR) Creatinine Urine mg/dL 37.8 mg/dL 05/30/2024 4:36 AM LEADERSHIP DEVELOPMENT INSTRUCTOR [facility] Comment:The reference ranges have not been established in urine creatinine. The results should be integrated into the clinical context for interpretation. Albumin Urine mg/L 165.0 mg/L 2023 4:36 AM LEADERSHIP DEVELOPMENT INSTRUCTOR [facility] Comment:The reference ranges have not been established in urine albumin. The results should be integrated into the clinical context for interpretation. Albumin Urine mg/g Cr 436.51(H) 0.00 - 25.00 mg/g Cr 05/30/2024 4:36 AM LEADERSHIP DEVELOPMENT INSTRUCTOR [facility] Comment: Microalbuminuria is defined as [...] control, and institution of therapy with an kefzksdukeu-uswykszsqb-godyts (SARANYA) inhibitor (if the patient can tolerate it). Urine URINE SPECIMEN OBTAINED BY CLEAN CATCH PROCEDURE / Unknown Non-blood Collection / Unknown 05/29/2024 2:41 PM LEADERSHIP DEVELOPMENT INSTRUCTOR 05/29/2024 3:18 PM LEADERSHIP DEVELOPMENT INSTRUCTOR Jamil Carlin MD LAB - URINE ORDERABLES Fi nal Result [facility] LABORATORY [facility] [place] [facility] [address] [facility], [address] [place] [address], [place] * (ABNORMAL) Blood gas venous (05/29/2024 2:41 PM LEADERSHIP DEVELOPMENT INSTRUCTOR) pH Venous 7.56(H) 7.32 - 7.43 05/29/2024 3:27 PM LEADERSHIP DEVELOPMENT INSTRUCTOR [facility] pCO2 Venous 71(H) 40 - 50 mm Hg 05/29/2024 3:27 PM LEADERSHIP DEVELOPMENT INSTRUCTOR [facility] pO2 Venous 38 25 - 47 mm Hg 05/29/2024 3:27 PM LEADERSHIP DEVELOPMENT INSTRUCTOR [facility] Bicarbonate Venous >45(HH) 21 - 28 mmol/L 05/29/2024 3:27 PM LEADERSHIP DEVELOPMENT INSTRUCTOR [facility] Base Excess/Deficit Venous 05/29/2024 3:27 PM LEADERSHIP DEVELOPMENT INSTRUCTOR [facility] Comment:hide FIO2 21 RUKHSANA 05/29/2024 3:27 PM LEADERSHIP DEVELOPMENT INSTRUCTOR [facility] Oxyhemoglobin Venous 67(L) 70 - 75 % 05/29/2024 3:27 PM LEADERSHIP DEVELOPMENT INSTRUCTOR [facility] O2 Sat, Venous 67.1(L) 70.0 - 75.0 % 05/29/2024 3:27 PM LEADERSHIP DEVELOPMENT INSTRUCTOR LABORATORY Blood, venous BLOOD SPECIMEN / Unknown Venipuncture / Unknown 05/29/2024 2:41 PM LEADERSHIP DEVELOPMENT INSTRUCTOR 05/29/2024 3:08 PM LEADERSHIP DEVELOPMENT INSTRUCTOR Narrative [facility]ATORY - 05/29/2024 3:27 PM LEADERSHIP DEVELOPMENT INSTRUCTOR In healthy individuals, oxyhemoglobin (O2Hb) and oxygen saturation (SO2) are approximately equal. In the presence of dyshemoglobins, oxyhemoglobin can be considerably lower than oxygen saturation. us Jamil Carlin MD LAB - BLOOD ORDERABLES nal Result LABORATORY [facility] [address] Lab (1st floor, no room number) [place] [address], [facility] * (ABNORMAL) Sodium timed urine (05/19/2024 12:02 PM LEADERSHIP DEVELOPMENT INSTRUCTOR) Sodium Urine mmol/L 130 mmol/L 05/19/2024 1:51 PM LEADERSHIP DEVELOPMENT INSTRUCTOR LABORATORY Comment:The reference ranges have not been established in urine sodium. The results should be integrated into the clinical context for interpretation. Sodium Urine mmol/spec 286(H) 40 - 220 mmol/spec 05/19/2024 1:51 PM LEADERSHIP DEVELOPMENT INSTRUCTOR [facility] Duration in hours 24.0 h RUKHSANA 05/19/2024 1:51 PM LEADERSHIP DEVELOPMENT INSTRUCTOR [facility] Comment: started 05/18/24 11:40am started 05/18/24 11:40am Volume in mL 2,200 mL RUKHSANA 05/19/2024 1:51 PM LEADERSHIP DEVELOPMENT INSTRUCTOR [facility] Comment: Ended 05/19/24 11:40am Ended 05/19/24 11:40am Urine URINE SPECIMEN OBTAINED BY CLEAN CATCH PROCEDURE / Unknown Non-blood Collection / Unknown 05/19/2024 12:02 PM LEADERSHIP DEVELOPMENT INSTRUCTOR 05/19/2024 12:09 PM LEADERSHIP DEVELOPMENT INSTRUCTOR us Javon Devine MD LAB - URINE ORDERABLES Final Res ult LABORATORY [facility] [address] [facility] Lab (1st floor, no room number) [place] [address], [facility] * Potassium timed urine (05/19/2024 12:00 PM LEADERSHIP DEVELOPMENT INSTRUCTOR) Potassium Urine 39.0 mmol/L 6:39 PM LEADERSHIP DEVELOPMENT INSTRUCTOR [facility] Comment:The reference ranges have not been established in urine potassium. The results should be integrated into the clinical context for interpretation. Duration in hours 24.0 h [facility] 05/19/2024 6:39 PM LEADERSHIP DEVELOPMENT INSTRUCTOR [facility] Comment: Started 05/18/24 11:40am Started 05/18/24 11:40am Started 05/18/24 11:40am Volume in mL 2,200 mL RUKHSANA 05/19/2024 6:39 PM LEADERSHIP DEVELOPMENT INSTRUCTOR [facility] Comment: Ended 05/19/24 11:40am Ended 05/19/24 11:40am Ended 05/19/24 11:40am Potassium Urine mmol/spec 86 25 - 125 mmol/spec 05/19/2024 6:39 PM LEADERSHIP DEVELOPMENT INSTRUCTOR [facility] Urine URINE SPECIMEN FROM URINARY CONDUIT / Unknown Non-blood Collection / Unknown 05/19/2024 12:00 PM LEADERSHIP DEVELOPMENT INSTRUCTOR 05/19/2024 12:10 PM LEADERSHIP DEVELOPMENT INSTRUCTOR us Javon Devine MD LAB - URINE ORDERABLES Final Res ult Performing Organization Address [facility]/ZIP Co de Phone Number UU LABORATORY [facility] Core Lab [address], [address] [phone] * (ABNORMAL) Phosphorus timed urine (05/19/2024 11:59 AM LEADERSHIP DEVELOPMENT INSTRUCTOR) Phosphorous Urine mg/dL 15.0(L) 40.0 - 136.0 mg/dL 05/19/2024 6:50 PM LEADERSHIP DEVELOPMENT INSTRUCTOR [facility] Phosphorus Urine g/spec 0.33(L) 0.40 - 1.30 g/spec 05/19/2024 6:50 PM LEADERSHIP DEVELOPMENT INSTRUCTOR [facility] Duration in hours 24.0 h [facility] 05/19/2024 6:50 PM LEADERSHIP DEVELOPMENT INSTRUCTOR [facility] Comment: Started 05/18/24 11:40am Started 05/18/24 11:40am Volume in mL 2,200 mL RUKHSANA 05/19/2024 6:50 PM LEADERSHIP DEVELOPMENT INSTRUCTOR [facility] Comment: Ended 05/19/24 11:40am Ended 05/19/24 11:40am Urine URINE SPECIMEN OBTAINED BY CLEAN CATCH PROCEDURE / Unknown Non-blood Collection / Unknown 05/19/2024 11:59 AM LEADERSHIP DEVELOPMENT INSTRUCTOR 05/19/2024 12:09 PM LEADERSHIP DEVELOPMENT INSTRUCTOR us Javon Devine MD LAB - URINE ORDERABLES Final Res ult Performing Organization Address [facility] de Phone Number UU LABORATORY [facility] Lab [address], [address] [phone] * (ABNORMAL) Magnesium timed urine (05/19/2024 11:58 AM LEADERSHIP DEVELOPMENT INSTRUCTOR) Magnesium Urine mg/dL 10.3 mg/dL 05/19/2024 6:54 PM LEADERSHIP DEVELOPMENT INSTRUCTOR [facility] Comment:The reference ranges have not been established in urine magnesium. The results should be integrated into the clinical context for interpretation. Duration in hours 24.0 h RU[facility] 05/19/2024 6:54 PM LEADERSHIP DEVELOPMENT INSTRUCTOR [facility] Comment: Started 05/18/24 11:40am Started 05/18/24 11:40am Started 05/18/24 11:40am Volume in mL 2,200 mL RUKHSANA 05/19/2024 6:54 PM LEADERSHIP DEVELOPMENT INSTRUCTOR [facility] Comment: Ended 05/19/24 11:40am Ended 05/19/24 11:40am Ended 05/19/24 11:40am Magnesium Urine g/spec 0.23(H) 0.07 - 0.12 g/spec 05/19/2024 6:54 PM LEADERSHIP DEVELOPMENT INSTRUCTOR [facility] Comment:Reference range appl icable for 24 hour only Urine URINE SPECIMEN OBTAINED BY CLEAN CATCH PROCEDURE / Unknown Non-blood Collection / Unknown 05/19/2024 11:58 AM LEADERSHIP DEVELOPMENT INSTRUCTOR 05/19/2024 12:09 PM LEADERSHIP DEVELOPMENT INSTRUCTOR us Javon Devine MD LAB - URINE ORDERABLES Final Res ult [facility] LABORATORY [facility] Lab [address], [address] [phone] * (ABNORMAL) Chloride timed urine (05/19/2024 11:56 AM LEADERSHIP DEVELOPMENT INSTRUCTOR) Chloride Urine mmol/L 41 mmol/L 05/19/2024 6:41 PM LEADERSHIP DEVELOPMENT INSTRUCTOR [facility] Comment:The reference ranges have not been established in urine chloride. The results should be integrated into the clinical context for interpretation. Chloride Urine mmol/spec 90(L) 110 - 250 mmol/spec 05/19/2024 6:41 PM LEADERSHIP DEVELOPMENT INSTRUCTOR [facility] Comment: Reference range applicable for 24 hour only The urinary excretion of sodium, potassium and chloride varies significantly with dietary intake. The values given here are typical of people on average diet. Duration in hours 24.0 h [facility] 05/19/2024 6:41 PM LEADERSHIP DEVELOPMENT INSTRUCTOR [facility] Comment: started 05/18/24 11:40am started 05/18/24 11:40am started 05/18/24 11:40am Volume in mL 2,200 mL RUKHSANA 05/19/2024 6:41 PM LEADERSHIP DEVELOPMENT INSTRUCTOR [facility] Comment: ended 05/19/24 11:40am ended 05/19/24 11:40am ended 05/19/24 11:40am Urine URINE SPECIMEN OBTAINED BY CLEAN CATCH PROCEDURE / Unknown Non-blood Collection / Unknown 05/19/2024 11:56 AM LEADERSHIP DEVELOPMENT INSTRUCTOR 05/19/2024 12:10 PM LEADERSHIP DEVELOPMENT INSTRUCTOR us Javon Devine MD LAB - URINE ORDERABLES Final Res ult [facility] LAB[facility]ATORY [facility] [place] [facility] [address], [address] * Calcium timed urine (05/19/2024 11:54 AM LEADERSHIP DEVELOPMENT INSTRUCTOR) Calcium Urine mg/dL 9.2 mg/dL 05/19/2024 6:53 PM LEADERSHIP DEVELOPMENT INSTRUCTOR [facility] Comment:The reference ranges have not been established in urine calcium. The results should be integrated into the clinical context for interpretation. Duration in hours 24.0 h [facility] 05/19/2024 6:53 PM LEADERSHIP DEVELOPMENT INSTRUCTOR [facility] Comment: Started 05/18/24 11:40am Started 05/18/24 11:40am Started 05/18/24 11:40am Volume in mL 2,200 mL [facility] 05/19/2024 6:53 PM LEADERSHIP DEVELOPMENT INSTRUCTOR [facility] Comment: ended 11:40am 05/19/24 ended 11:40am 05/19/24 ended 11:40am 05/19/24 Calcium Urine g/spec 0.20 0.10 - 0.30 g/spec 05/19/2024 6:53 PM LEADERSHIP DEVELOPMENT INSTRUCTOR [facility] Comment:Reference range appl icable for 24 hour only Urine URINE SPECIMEN OBTAINED BY CLEAN CATCH PROCEDURE / Unknown Non-blood Collection / Unknown 05/19/2024 11:54 AM LEADERSHIP DEVELOPMENT INSTRUCTOR 05/19/2024 12:09 PM LEADERSHIP DEVELOPMENT INSTRUCTOR us Javon Devine MD LAB - URINE ORDERABLES Final Res ult [facility] [place] [facility] [address], [address] [phone] * Lactic acid whole blood (05/15/2024 7:14 PM LEADERSHIP DEVELOPMENT INSTRUCTOR) Lactic Acid 1.7 0.7 - 2.0 mmol/L 05/15/2024 7:23 PM LEADERSHIP DEVELOPMENT INSTRUCTOR [facility] Blood STRUCTURE OF LEFT HAND / Unknown Venipuncture / Unknown 05/15/2024 7:14 PM LEADERSHIP DEVELOPMENT INSTRUCTOR 05/15/2024 7:21 PM LEADERSHIP DEVELOPMENT INSTRUCTOR Desire Najera PA-C LAB - BLOOD ORDERABLES Final Result Performing Organization Address City/[facility]/ZIP Co de Phone Number [facility] [address] Lab (1st floor, no room number) [place] [address] * Ketone Beta-Hydroxybutyrate Quantitative (05/15/2024 2:54 PM LEADERSHIP DEVELOPMENT INSTRUCTOR) Ketone (Beta-Hydroxybuty rate) Quantitative 0.25 <=0.30 mmol/L 05/15/2024 7:54 PM LEADERSHIP DEVELOPMENT INSTRUCTOR LABORATORY Blood STRUCTURE OF LEFT HAND / Unknown Venipuncture / Unknown 05/15/2024 2:54 PM LEADERSHIP DEVELOPMENT INSTRUCTOR 05/15/2024 3:03 PM LEADERSHIP DEVELOPMENT INSTRUCTOR Desire Najera PA-C LAB - BLOOD ORDERABLES Final Result Performing Organization Address [facility] Co de Phone Number [facility] [address] Lab (1st floor, no room number) [place] [address], [place] * XR Pelvis 1/2 Views (04/23/2024 2:01 PM CDT) Anatomical Region Laterality Modality Abdomen/Pelvis Digital Radiogra phy Impressions 04/23/2024 2:08 PM CDT IMPRESSION: Right inferior pubic ramus fracture with similar alignment. No definite osseous bridging. There is normal joint alignment. No significant degenerative changes. DIANDRA RODRÍGUEZ MD SYSTEM ID: [id number] Narrative 04/23/2024 2:08 PM CDT XR PELVIS [...] degenerative changes. DIANDRA RODRÍGUEZ MD SYSTEM ID: [id number] Jerry Maya MD IMG DIAGNOSTIC IMAGING ORDERABL ES Final Result * CT Cervical Spine w/o Contrast (04/23/2024 1:59 PM CDT) Anatomical Region Laterality Modality Spine, SUBRAD CT NEURO, SUBR AD CT NEURO, UMP CT SPINE, RAD CT Computed Tomography Impressions 04/23/2024 2:23 PM CDT IMPRESSION: No acute cervical spine fracture. ANTHONY COOK MD SYSTEM ID: [id number] Narrative 04/23/2024 2:[address] CERVICAL [...] spine fracture. ANTHONY COOK MD SYSTEM ID: [id number] Jerry Maya MD [facility] [place] [place] CT ORDERABLES Final Result * XR Knee Right 1/2 Views (04/23/2024 1:59 PM CDT) Anatomical Region Laterality Modality Leg, Thigh, Knee Right Digital Radiogr aphy Impressions 04/23/2024 2:08 PM CDT IMPRESSION: No acute osseous abnormality demonstrated. DIANDRA RODRÍGUEZ MD SYSTEM ID: [id number] Narrative 04/23/2024 2:08 PM CDT KNEE ONE-TWO [...] abnormality demonstrated. DIANDRA RODRÍGUEZ MD SYSTEM ID: [id number] us Jerry Maya MD [facility] [place], [place] DIAGNOSTIC IMAGING ORDERABL ES Final Result * XR Femur Right 2 Views (04/23/2024 1:57 PM CDT) Anatomical Region Laterality Modality Hip, Thigh, Knee Right Digital Radiogr aphy Impressions 04/23/2024 2:08 PM CDT IMPRESSION: Right inferior pubic ramus fracture with similar alignment. No definite osseous bridging. There is normal joint alignment. No significant degenerative changes. DIANDRA RODRÍGUEZ MD SYSTEM ID: [id number] Narrative 04/23/2024 2:08 PM CDT XR PELVIS [...] degenerative changes. DIANDRA RODRÍGUEZ MD SYSTEM ID: [id number] Jerry Maya MD IMG DIAGNOSTIC IMAGING ORDERABL [...] [facility] SPECIALTY CORE/PROT/ENDO UM Specialty Core/Prot/Endo [facility], [address] from Last 3 Months or Most Recently Relevant to Health Maintenance Insurance MEDICARE MEDICARE Member Subscriber Plan / Payer (Ef fective 2018-Present) Name:Lorraine Klein Member ID:[id number] Relation to Subscriber:Self Name:Lorraine Klein Subscriber ID:[id number] Payer ID:[id number] Group ID:Not on file Type:Medicare Address: ATTN CLAIMS [address] [place] [phone] Advance Directives For more information, please contact: [phone] * Full Code (Latest Code Status on [...] patie nt/ legal decision maker Care Teams Cluster Bore Operator Relationship Specialty [place] [address] [place] [address] PCP - General 03/07/24
--- OUTSIDE RECORDS SUMMARY | 2024-07-08 19:38 | XMS_ITS | Encounter Summary ---
Author Organization [facility] Address [address] [place] [address]. 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 [address] [address] [place] [address] [place] [address] [place] [address] [facility] [address] [place] [address] documented as of this encounter Visit Diagnoses Not on filedocumented in this encounter Additional Health Concerns Infection Onset Date Last Indicated Resolved Time Rule Out COVID-19 07/01/2024 07/01/2024 07/01/2024 12:22 PM CASINO CONTROLLER documented as of this encounter Care Teams Math Teacher Relationship Specialty Start [place] [address] [place], [place] [id number] PCP - General 03/07/24 documented as of this encounter
--- OUTSIDE RECORDS SUMMARY | 2024-07-08 19:38 | XMS_ITS | Encounter Summary ---
Author Organization [place] Address [address] [place] [address]. 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 Not on file Not on file documented as of this encounter Plan of Treatment Upcoming Encounters Date Type Department Care Team (Late st Contact Info) Description 07/09/2024 11:00 AM STUD BEEF CATTLE FARMER Virtual Visit [facility] [address] [facility] [address] [address] [place] [address] [place], [place] [id number] [place] [address] [facility] [address] [place] [address] documented as of this encounter Visit Diagnoses Not on filedocumented in this encounter Care Teams Dental Claims Processor Relationship Specialty Start [place] [address] [place] [address] PCP - General 03/07/24 documented as of this encounter
--- OUTSIDE RECORDS SUMMARY | 2024-07-08 19:38 | XMS_ITS | Encounter Summary ---
Author Organization [facility] Address [address] [place] [address] Care Team Providers Care Ultrasound Coordinator Name Role Phone Gregg Corrales MD Primary Care Provider Reason for Visit * Reason Comments Abnormal Labs * Auth/Cert (Routine) Specialty Diagnoses / Procedures Referred By Miguelangel t Referred To Contact Med Surg Diagnoses Hypokalemia Acute kidney injury Knee injury, left, initial encounter Hypokalemia Acute kidney injury (H) [place] [address] [facility] [address] [place] [address] Phone: tel: fax: Referral ID Status Reason Start Date Expiration Date Visits Re quested Visits Authorized [id number] 1 1 Encounter Details Date Type Department Care Team (Late st Contact Info) Description 06/16/2024 5:01 PM SENIOR DYNAMICS CRM DEVELOPER - 06/20/2024 1:46 PM SENIOR DYNAMICS CRM DEVELOPER Hospital Encounter [place] [address] [facility] [address] [place] [id number] Jamil Madison MD [facility] [address] [place] [address] Fabian Chowdary MD [address] [place] [address] Hypokalemic alkalosis (Primary Dx); Hypokalemia; Acute kidney [...] an abandoned building, in an overnight senior living, or couch-surfing.) Yes 06/17/2024 Are you worried [...] on file Legal Sex Female 4:48 AM SENIOR DYNAMICS CRM DEVELOPER Gender Identity Not on file Sexual Orientation Not on file 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 Not on file Not on file documented as of this encounter Last Filed Vital Signs Vital Sign Reading Time Taken Comments Blood Pressure 113/60 06/20/2024 8:37 AM SENIOR DYNAMICS CRM DEVELOPER Pulse 81 06/20/2024 8:37 AM SENIOR DYNAMICS CRM DEVELOPER Temperature 37.1 C (98.7 F) 06/20/2024 8:37 AM SENIOR DYNAMICS CRM DEVELOPER Respiratory Rate 16 06/20/2024 10:26 AM SENIOR DYNAMICS CRM DEVELOPER Oxygen Saturation 97% 06/20/2024 8:37 AM SENIOR DYNAMICS CRM DEVELOPER Inhaled Oxygen Concentration - - Weight 48.7 kg (107 lb 4.8 oz) 06/20/2024 5:00 A M SENIOR DYNAMICS CRM DEVELOPER Height 170.2 cm (5' 7) 06/16/2024 4:59 PM SENIOR DYNAMICS CRM DEVELOPER Body Mass Index 16.81 06/16/2024 4:59 PM SENIOR DYNAMICS CRM DEVELOPER documented in this encounter Discharge Summaries * Azar Umanzor MD - 06/20/2024 1:29 PM CST Discharge Summary Hospitalist Date of Admission: 06/16/2024 [...] chloride 80 mEq 3 times daily. Her drywall application supervisor reduce her Aldactone from 50 mg at night to 25 mg at night. She recently followed up with her Florencia drywall application supervisor and had labs obtained. She was contacted [...] says she is working on establishing with [facility] pain clinic. -Pt again requesting to see [...] up with primary care provider, Gregg Corrales, or nephrology within 7 days for hospital [...] Labs Lab Test 05/29/24 1441 TSH 1.95 OR DYNAMICS CRM DEVELOPER documented in this encounter Discharge Instructions * Discharge Instructions* Mirela Gomez LICSW - 06/18/2024 10:01 AM SENIOR DYNAMICS CRM DEVELOPER [facility] Please call: [facility]: [phone] OR DYNAMICS CRM DEVELOPER documented in this encounter Medications at Time [...] is per provider teams. Karen Wilkes RDN, STUNT DRIVER, LD Clinical Dietitian Emy Message Group: Dietitian [[facility]] Office: [phone] Pagers: 3rd floor/ICU: [phone] All other floors: [phone] Weekend/holiday: [phone] OR DYNAMICS CRM DEVELOPER * Javon Devine MD - 06/19/2024 5:21 PM CST Notes, labs, vitals reviewed. Labs are all better x Mg, Phos remain low. K is nl. Check urine electrolytes now that fluids have been stopped and she is eating. Case d/w Dr. Umanzor. OR DYNAMICS CRM DEVELOPER * Karen Wilkes RD - 06/19/2024 10:16 [...] r/t active eating disorder. Karen Wilkes RDN, STUNT DRIVER, LD Clinical Dietitian Emy Message Group: Dietitian [[facility]] Office: [phone] Pagers: 3rd floor/ICU: [phone] All other floors: [phone] Weekend/holiday: [phone] OR DYNAMICS CRM DEVELOPER * Azar Umanzor MD - 06/19/2024 9:00 AM CST Hospitalist Progress Note Assessment & Plan Lorraine [...] chloride 80 mEq 3 times daily. Her drywall application supervisor reduce her Aldactone from 50 mg at night to 25 mg at night. She recently followed up with her Florencia drywall application supervisor and had labs obtained. She was contacted [...] says she is working on establishing with [facility] pain clinic. -Pt again requesting to see [...] flush 3 mL 3 mL Intracatheter Q8H aFbian Chowdary MD 3 mL at 06/19/24 0625 [...] previous visit (from the past 24 hours). OR DYNAMICS CRM DEVELOPER * Mike Teran MD - 06/18/2024 12:04 [...] MD [facility] - Nephrology Office phone :[phone] Pager: [phone] OR DYNAMICS CRM DEVELOPER * Azar Umanzor MD - 06/18/2024 10:28 AM CST Hospitalist Progress Note Assessment & Plan Lorraine [...] chloride 80 mEq 3 times daily. Her drywall application supervisor reduce her Aldactone from 50 mg at night to 25 mg at night. She recently followed up with her Florencia drywall application supervisor and had labs obtained. She was contacted [...] says she is working on establishing with [facility] pain clinic. -Tylenol and oxycodone as needed [...] bilateral menisci are intact. JESSICA EDWARD MD OR DYNAMICS CRM DEVELOPER * Azar Umanzor MD - 06/17/2024 9:05 AM CST Hospitalist Progress Note Assessment & Plan Lorraine [...] chloride 80 mEq 3 times daily. Her drywall application supervisor reduce her Aldactone from 50 mg at night to 25 mg at night. She recently followed up with her Florencia drywall application supervisor and had labs obtained. She was contacted [...] says she is working on establishing with [facility] pain clinic. -Tylenol and oxycodone as needed [...] CP, palpitations. She follows with nephrology at [facility]. -Data reviewed today: I reviewed all new [...] EXAM: XR KNEE LEFT 3 VIEWS LOCATION: [facility] DATE: 06/16/2024 INDICATION: fall, medial pain COMPARISON: None. Impression IMPRESSION: Normal left knee joint spacing and alignment. No sizable effusion. Negative for acute fracture. OR DYNAMICS CRM DEVELOPER OR DYNAMICS CRM DEVELOPER OR DYNAMICS CRM DEVELOPER * China Flor MD - 06/17/2024 2:34 AM CST Cross Cover Called for K 2.4, was 2.0 and rec'd 40 meq po and 10 meq IV in ER To receive po 40 meq now and 20 meq in 2 hours then recheck. Agree with protocol and will give additional KCL 10 meq IV now OR DYNAMICS CRM DEVELOPER documented in this encounter H&P Notes * Fabian Chowdary MD - 06/16/2024 10:40 PM CST History and Physical - Hospitalist Service Date [...] chloride 80 mEq 3 times daily. Her drywall application supervisor reduce her Aldactone from 50 mg at night to 25 mg at night. She recently followed up with her Florencia drywall application supervisor and had labs obtained. She was contacted [...] protocol -Phosphorus replacement protocol -Consult nephrology -Hold SPECIAL WARFARE OPERATOR aldactone with BARBARA Prolonged QT -Repeat ECG [...] 2-4 Days Fabian Chowdary MD Hospitalist Service Securely message with [employer] (more info) Text page via [facility] Paging/Directory Chief Complaint Abnormal labs History is [...] chloride 80 mEq 3 times daily. Her drywall application supervisor reduce her Aldactone from 50 mg at night to 25 mg at night. She recently followed up with her Florencia drywall application supervisor and had labs obtained. She was contacted [...] EXAM: XR KNEE LEFT 3 VIEWS LOCATION: [facility] DATE: 06/16/2024 INDICATION: fall, medial pain COMPARISON: [...] -- ELKE 13.2* -- GLC 101* -- OR DYNAMICS CRM DEVELOPER OR DYNAMICS CRM DEVELOPER OR DYNAMICS CRM DEVELOPER documented in this encounter Consult Notes * Karen Palacio APRN LANDSCAPE PAINTER - 06/19/2024 4:15 PM CSTAssociated Order(s): PAIN MANAGEMENT ADULT IP CONSULT Images from the original note were not included. [facility] ACUTE PAIN SERVICE CONSULTATION [facility] [employer] Web Console Karen Date of Admission: 06/16/2024 [...] patient ask for IV pain medication. [place] HITCHER noted for small quantities of oxycodone about [...] PGMT- Acute Pain Team ( [facility], [facility], [facility]) 8-4:30 after 3:30 contact primary team No weekend coverage Securely message with the [employer] (learn more here) OR DYNAMICS CRM DEVELOPER * Mirela Gomez LICSW - 06/18/2024 9:59 [...] Communication Assessment Patient's communication style: spoken language (Syrian or Bilingual) Hearing Difficulty or Deaf: no [...] No Depression: At risk (10/22/2023) Received from [facility] PHQ-2 PHQ-2 TOTAL SCORE: 3 Housing Stability: Low Risk (06/17/2024) Housing Stability Do you have housing? : Yes Are you worried about losing your housing?: No Recent Concern: Housing Stability - High Risk (05/29/2024) Housing Stability Do you have housing? : No Are you worried about losing your housing?: No Tobacco Use: Low Risk (06/13/2024) Received from [facility] Patient History Smoking Tobacco Use: Never Smokeless Tobacco Use: Never Passive Exposure: Not on file Financial Resource Strain: Low Risk (06/17/2024) Financial Resource Strain Within the past 12 months, have you or your family members you live with been unable to get utilities (heat, electricity) when it was really needed?: No Alcohol Use: Not At Risk (04/07/2021) [facility] Frequency of Alcohol Consumption: Never Average [...] Activity: Sufficiently Active (04/07/2021) Re[facility] from [facility] Exercise Vital Sign Days of Exercise per [...] Stress Concern Present (04/07/2021) Received from [facility] [place] [employer] - Occupational Stress Questionnaire Feeling of Stress : Only a little Social Connections: Socially Integrated (02/29/2024) Received from [facility] Social Connections Do you often feel lonely or isolated from those around you?: 0 Health Literacy: Not on file Functional Status: Prior to admission patient needed assistance: Dependent ADLs:: Independent Mental Health Status: Mental Health Status: No Current Concerns Chemical Dependency Status: Chemical Dependency Status: No Current Concerns Values/Beliefs: Spiritual, Cultural Beliefs, Anabaptism Practices, Values that affect care: Discussed ???Partnership [...] Verified that patient is still living in [place]. Patient has Medicare Part A only. She has applied for MA 4 months ago but her application is still pending at [facility]. She has an Florencia ROSE who checks on the application every few weeks. It has been stressful. She would like a [employer] application. Sent message to . Patient is inquiring about gas resources. SW suggested looking into a bus pass or medical cabs onceher MA is approved. Patient drove self to the hospital. No other discharge needs at this time. CORIN Chrales, [facility] Emergency Room Rug Cleaning Supervisor Please contact the SW on the floor in which the patient is staying for any questions or concerns OR DYNAMICS CRM DEVELOPER * Jacki Zuniga, RD - 06/17/2024 3:23 [...] Patient is familiar to me an other [facility] dietitians. She has been educated on [...] Group: Dietitian [[facility]] Office Pagers: 3rd floor/ICU: [phone] All other floors: [phone] Weekend/holiday: [phone] OR DYNAMICS CRM DEVELOPER * Mike Teran MD - 06/17/2024 8:43 [...] 40 mEq 40 mEq Oral 4x Daily Fbaian Chowdary MD 40 mEq at 06/17/24 0834 [...] Activity: Sufficiently Active (04/07/2021) [facility] Exercise Vital Sign Days of Exercise per Week: 6 days Minutes of Exercise per Session: 90 min Stress: No Stress Concern Present (04/07/2021) Received from [facility] [place] [employer]ational [employer] - Occupational Stress Questionnaire Feeling of Stress : Only a little Social Connections: Socially Integrated (02/29/2024) Received from [facility] Social Connections Do you often feel lonely [...] document food intake closely Mike Teran MD [facility] Nephrology Office Pager: [phone] OR DYNAMICS CRM DEVELOPER OR DYNAMICS CRM DEVELOPER documented in this encounter ED Notes * Molly Vera RN - 06/16/2024 9:42 PM CST [facility] ED Nurse Handoff Report ED Chief complaint: [...] 1. Lift room needed: No. Bariatric: No Director Of Volunteer Services Needed: No Isolation: No. Infection: Not Applicable. [...] Nurse Name: Molly Vera RN 9:42 PM OR DYNAMICS CRM DEVELOPER * Jamil Madison MD - 06/16/2024 5:20 [...] Prolonged QT Abnormal ECG Rate 76 bpm. MI interval 132 ms. QRS duration 88 ms. [...] statements to me. Jamil Madison MD 06/16/242307 OR DYNAMICS CRM DEVELOPER * Tony Houston RN - 06/16/2024 5:13 PM CST Bed: ED37 Expected date: Expected time: Means of arrival: Comments: K.S. OR DYNAMICS CRM DEVELOPER * Riya George RN - 06/16/2024 5:02 [...] disease but is not on dialysis currently. OR DYNAMICS CRM DEVELOPER * Elma Jalloh RN - 06/16/2024 5:01 PM CST Bed: ED14 Expected date: Expected time: Means of arrival: Comments: Triage SI OR DYNAMICS CRM DEVELOPER documented in this encounter Miscellaneous Notes * Plan of Care - Lele Obrien RN - 06/20/2024 5:57 AM CST For vital signs and complete assessments, please see documentation flowsheets. [id number] Pertinent assessments: Pt A&Ox4. On RA. Ind [...] PIV saline locked. Denies nausea & SOB. OR DYNAMICS CRM DEVELOPER * Plan of Care - Sherwin Brito RN - 06/20/2024 12:55 AM CST [id number] Inpatient Progress Note: A & O X [...] Plan Recent Flowsheet Documentation Taken 06/19/20242047 by Shrewin Brito RN Pain Management Interventions: medication (see MAR) Intervention: Prevent or Manage Pain Recent Flowsheet Documentation Taken 06/19/20242149 by Sherwin Brito RN Medication Review/Management: medications reviewed Will continue to provide supportive cares. Sherwin Brito RN Plan of Care Reviewed With: patient OR DYNAMICS CRM DEVELOPER * Plan of Care - Alesha Gallardo [...] Alesha Gallardo RN Medication Review/Management: medications reviewed OR DYNAMICS CRM DEVELOPER * Plan of Care - Lucia Cohen [...] Oxycodone, Robaxin, and Atarax given, tele d/c OR DYNAMICS CRM DEVELOPER * Plan of Care - Edith Cruz [...] Edith Cruz RN Medication Review/Management: medications reviewed OR DYNAMICS CRM DEVELOPER * Plan of Care - Mirela Gomez, [facility] - 06/18/2024 9:59 AM CST Goal Outcome Evaluation: Plan of Care Reviewed With: patient Overall Patient Progress: no changeOverall Patient Progress: no change Outcome Evaluation: Discharge home when medically ready. OR DYNAMICS CRM DEVELOPER * Plan of Care - Lucia Cohen [...] Recent Flowsheet Documentation Taken 06/17/20241936 by Lucia oChen, RN Safety Promotion/Fall Prevention: clutter free environment [...] Documentation Taken 06/17/20241936 by Lucia Cohen RN Medication Review/Management: medications reviewed Goal Outcome Evaluation: Plan of Care Reviewed With: patient Overall Patient Progress: improvingOverall Patient Progress: improving Outcome Evaluation: Oxycodone and Atarax for pain, on RA, on tele monitoring OR DYNAMICS CRM DEVELOPER * Plan of Care - Edith Cruz [...] given for pain. Left knee MRI done. OR DYNAMICS CRM DEVELOPER * Pharmacy-Admission Medication History - Jessica Awad [...] (full tablet) at bedtime. Changes made to SPECIAL WARFARE OPERATOR medication list: Added: None Deleted: oxycodone 5mg q6h prn Changed: kcl from 40 meq QID to 80 meq TID per pt report. Allergies reviewed with patient and updates made in EHR: yes, removed iron entry with no rxn with pt approval Medication History Completed By: Jessica Awad [facility] 06/17/2024 9:18 AM SPECIAL WARFARE OPERATOR Med List Medication Sig Note Last Dose/Taking [...] as needed for severe pain. 06/15/2024 Evening OR DYNAMICS CRM DEVELOPER * Plan of Care - Laura Downing [...] Documentation Taken 06/17/2024 0348 by Laura Downing RNnursing director Interventions: heat applied Taken 06/17/2024 0303 by Laura Downing RNnursing director Interventions: (PRN tylenol and oxy) medication (see [...] Documentation Taken 06/17/2024 0348 by Laura Downing RNnursing director Interventions: heat applied Taken 06/17/2024 0303 by Laura Downing RNnursing director Interventions: (PRN tylenol and oxy) medication (see MAR) Goal: Readiness for Transition of Care Outcome: Progressing Intervention: Mutually Develop Transition Plan Recent Flowsheet Documentation Taken 06/17/2024 0116 by Laura Downing RN Equipment Currently Used at Home: none Problem: Electrolyte Imbalance Goal: Electrolyte Balance Outcome: Progressing OR DYNAMICS CRM DEVELOPER OR DYNAMICS CRM DEVELOPER OR DYNAMICS CRM DEVELOPER * Provider Notification - Laura Downing RN [...] we could get anything else PRN? Thanks. OR DYNAMICS CRM DEVELOPER * Provider Notification - Laura Downing RN [...] added an additional dose of IV potassium. OR DYNAMICS CRM DEVELOPER OR DYNAMICS CRM DEVELOPER documented in this encounter Plan of Treatment Upcoming Encounters Date Type Department Care Team (Late st Contact Info) Description 07/09/2024 11:00 AM SENIOR DYNAMICS CRM DEVELOPER Virtual Visit [facility] [address] [address] [place] [address] [place], [place] [id number] [place] [facility] [place] [phone] [place], [place] [id number] documented as of this encounter Procedures Procedure Name Priority Date/Time Associated Diagnosis Comments RENAL PANEL Routine 06/20/2024 7:23 AM SENIOR DYNAMICS CRM DEVELOPER MAGNESIUM Routine 06/20/2024 7:23 AM SENIOR DYNAMICS CRM DEVELOPER CBC WITH PLATELETS Routine 06/20/2024 7: 23 AM SENIOR DYNAMICS CRM DEVELOPER SODIUM RANDOM URINE Routine 06/19/2024 5 :13 PM SENIOR DYNAMICS CRM DEVELOPER POTASSIUM RANDOM URINE Routine 06/19/2024 5:13 PM SENIOR DYNAMICS CRM DEVELOPER CHLORIDE RANDOM URINE Routine 06/19/2024 5:13 PM SENIOR DYNAMICS CRM DEVELOPER PHOSPHORUS Routine 06/19/2024 6:36 AM SENIOR DYNAMICS CRM DEVELOPER MAGNESIUM Routine 06/19/2024 6:36 AM SENIOR DYNAMICS CRM DEVELOPER BASIC METABOLIC PANEL Routine 06/19/2024 6:36 AM SENIOR DYNAMICS CRM DEVELOPER BASIC METABOLIC PANEL Routine 06/18/2024 7:04 PM SENIOR DYNAMICS CRM DEVELOPER EKG 12-LEAD, TRACING ONLY Routine 06/18/2024 11:14 AM SENIOR DYNAMICS CRM DEVELOPER PHOSPHORUS Routine 06/18/2024 6:08 AM SENIOR DYNAMICS CRM DEVELOPER MAGNESIUM Routine 06/18/2024 6:08 AM SENIOR DYNAMICS CRM DEVELOPER BASIC METABOLIC PANEL Timed 06/18/2024 6:08 AM SENIOR DYNAMICS CRM DEVELOPER CBC WITH PLATELETS Routine 06/18/2024 6: 08 AM SENIOR DYNAMICS CRM DEVELOPER BASIC METABOLIC PANEL Timed 06/17/2024 10:14 PM SENIOR DYNAMICS CRM DEVELOPER POTASSIUM Timed 06/17/2024 7:28 PM SENIOR DYNAMICS CRM DEVELOPER PHOSPHORUS Timed 06/17/2024 7:28 PM SENIOR DYNAMICS CRM DEVELOPER POTASSIUM Timed 06/17/2024 1:48 PM SENIOR DYNAMICS CRM DEVELOPER OSMOLALITY Routine 06/17/2024 1:48 PM SENIOR DYNAMICS CRM DEVELOPER BASIC METABOLIC PANEL Timed 06/17/2024 1:48 PM SENIOR DYNAMICS CRM DEVELOPER SODIUM RANDOM URINE Routine 06/17/2024 1 :39 PM SENIOR DYNAMICS CRM DEVELOPER POTASSIUM RANDOM URINE Routine 06/17/2024 1:39 PM SENIOR DYNAMICS CRM DEVELOPER OSMOLALITY, RANDOM URINE Routine 06/17/2024 1:39 PM SENIOR DYNAMICS CRM DEVELOPER CREATININE RANDOM URINE Routine 06/17/2024 1:39 PM SENIOR DYNAMICS CRM DEVELOPER CHLORIDE RANDOM URINE Routine 06/17/2024 1:39 PM SENIOR DYNAMICS CRM DEVELOPER MR KNEE LEFT W/O CONTRAST Routine 06/17/2024 11:35 AM SENIOR DYNAMICS CRM DEVELOPER POTASSIUM Timed 06/17/2024 10:11 AM SENIOR DYNAMICS CRM DEVELOPER PHOSPHORUS Routine 06/17/2024 6:52 AM SENIOR DYNAMICS CRM DEVELOPER MAGNESIUM Routine 06/17/2024 6:52 AM SENIOR DYNAMICS CRM DEVELOPER BASIC METABOLIC PANEL Routine 06/17/2024 6:52 AM SENIOR DYNAMICS CRM DEVELOPER CBC WITH PLATELETS Routine 06/17/2024 6: 52 AM SENIOR DYNAMICS CRM DEVELOPER POTASSIUM Timed 06/17/2024 1:33 AM SENIOR DYNAMICS CRM DEVELOPER PHOSPHORUS Add-On 06/16/2024 7:31 PM SENIOR DYNAMICS CRM DEVELOPER MAGNESIUM Add-On 06/16/2024 7:31 PM SENIOR DYNAMICS CRM DEVELOPER BASIC METABOLIC PANEL STAT 06/16/2024 7:31 PM SENIOR DYNAMICS CRM DEVELOPER XR KNEE LEFT 3 VIEWS STAT 06/16/2024 6:16 PM SENIOR DYNAMICS CRM DEVELOPER CBC WITH PLATELETS AND DIFFERENTIAL STAT 06/16/2024 5:53 PM SENIOR DYNAMICS CRM DEVELOPER TROPONIN T, HIGH SENSITIVITY STAT 06/16/2024 5:53 PM SENIOR DYNAMICS CRM DEVELOPER CBC WITH PLATELETS & DIFFERENTIAL STAT 06/16/2024 5:53 PM SENIOR DYNAMICS CRM DEVELOPER EKG 12-LEAD, TRACING ONLY STAT 06/16/2024 5:40 PM SENIOR DYNAMICS CRM DEVELOPER documented in this encounter Results * (ABNORMAL) CBC with platelets (06/20/2024 7:23 AM SENIOR DYNAMICS CRM DEVELOPER) WBC Count 7.2 4.0 - 11.0 10e3/uL 06/20/2024 7:50 AM SENIOR DYNAMICS CRM DEVELOPER [facility] RBC Count 2.91(L) 3.80 - 5.20 10e6/uL 06/20/2024 7:50 AM SENIOR DYNAMICS CRM DEVELOPER [facility] Hemoglobin 8.0(L) 11.7 - 15.7 g/dL 06/20/2024 7:50 AM SENIOR DYNAMICS CRM DEVELOPER [facility] Hematocrit 24.4(L) 35.0 - 47.0 % 06/20/2024 7:50 AM SENIOR DYNAMICS CRM DEVELOPER [facility] MCV 84 78 - 100 fL 06/20/2024 7:50 AM SENIOR DYNAMICS CRM DEVELOPER [facility] MCH 27.5 26.5 - 33.0 pg 06/20/2024 7:50 AM SENIOR DYNAMICS CRM DEVELOPER [facility] MCHC 32.8 31.5 - 36.5 g/dL 06/20/2024 7:50 AM SENIOR DYNAMICS CRM DEVELOPER [facility] RDW 15.4(H) 10.0 - 15.0 % 06/20/2024 7:50 AM SENIOR DYNAMICS CRM DEVELOPER [facility] Platelet Count 316 150 - 450 10e3/uL 06/20/2024 7:50 AM SENIOR DYNAMICS CRM DEVELOPER [facility] Blood STRUCTURE OF LEFT HAND / Unknown Venipuncture / Unknown 06/20/2024 7:23 AM SENIOR DYNAMICS CRM DEVELOPER 06/20/2024 7:47 AM SENIOR DYNAMICS CRM DEVELOPER us Javon Devine MD LAB - BLOOD ORDERABLES Final Res ult [facility] [address] [facility] Lab (1st floor, no room number) [place] [address], [facility] * (ABNORMAL) Renal panel (06/20/2024 7:23 AM SENIOR DYNAMICS CRM DEVELOPER) Sodium 145 135 - 145 mmol/L 06/20/2024 9:35 AM [facility] Potassium 4.5 3.4 - 5.3 mmol/L 06/20/2024 9:35 AM [facility] Chloride 105 98 - 107 mmol/L 06/20/2024 9:35 AM [facility] Carbon Dioxide (CO2) 27 22 - 29 mmol/L 06/20/2024 9:35 AM [facility] Anion Gap 13 7 - 15 mmol/L 06/20/2024 9:35 AM [facility] Glucose 82 70 - 99 mg/dL 06/20/2024 9:35 AM [facility] Urea Nitrogen 26.8(H) 6.0 - 20.0 mg/dL 06/20/2024 9:35 AM [facility] Creatinine 2.09(H) 0.51 - 0.95 mg/dL 06/20/2024 9:35 AM [facility] GFR Estimate 31(L) >60 mL/min/1.7 3m2 06/20/2024 9:35 AM [facility] Comment:eGFR calculated usin 2020 CKD-EPI equation. Calcium 9.9 8.8 - 10.4 mg/dL 06/20/2024 9:35 AM [facility] Comment:Reference intervals for this test were updated on 01/08/2024 to reflect our healthy population more accurately. There may be differences in the flagging of prior results with similar values performed with this method. Those prior results can be interpreted in the context of the updated reference intervals. Albumin 3.9 3.5 - 5.2 g/dL 06/20/2024 9:35 AM [facility] Phosphorus 2.9 2.5 - 4.5 mg/dL 06/20/2024 9:35 AM [facility] Blood STRUCTURE OF LEFT HAND / Unknown Venipuncture / Unknown 06/20/2024 7:23 AM SENIOR DYNAMICS CRM DEVELOPER 06/20/2024 7:47 AM [facility] us Javon Devine MD LAB - BLOOD ORDERABLES Final Res ult LABORATORY [facility] [address] Lab (1st floor, no room number) [place] [address], [facility] * Magnesium (06/20/2024 7:23 AM SENIOR DYNAMICS CRM DEVELOPER) Magnesium 2.2 1.7 - 2.3 mg/dL 06/20/2024 9:35 AM SENIOR DYNAMICS CRM DEVELOPER LABORATORY Blood STRUCTURE OF LEFT HAND / Unknown Venipuncture / Unknown 06/20/2024 7:23 AM SENIOR DYNAMICS CRM DEVELOPER 06/20/2024 7:47 AM SENIOR DYNAMICS CRM DEVELOPER Azar Umanzor MD LAB - BLOOD ORDERABLES Final Res ult RH LABORATORY [facility] Lab [address] [facility] Lab (1st floor, no room number) [place] [address] * Potassium random urine (06/19/2024 5:13 PM SENIOR DYNAMICS CRM DEVELOPER) Potassium Urine 40.2 mmol/L 9:27 PM SENIOR DYNAMICS CRM DEVELOPER [facility]ATORY Comment:The reference ranges have not been established in urine potassium. The results should be integrated into the clinical context for interpretation. Urine URINE SPECIMEN OBTAINED BY CLEAN CATCH PROCEDURE / Unknown Non-blood Collection / Unknown 06/19/2024 5:13 PM SENIOR DYNAMICS CRM DEVELOPER 06/19/2024 5:18 PM SENIOR DYNAMICS CRM DEVELOPER Azar Umanzor MD LAB - URINE ORDERABLES Final Res ult [facility] LABORATORY [facility] Lab [address] [facility], [address] [place] [address] * Chloride random urine (06/19/2024 5:13 PM SENIOR DYNAMICS CRM DEVELOPER) Chloride Urine mmol/L 59 mmol/L 06/19/2024 9:27 PM SENIOR DYNAMICS CRM DEVELOPER [facility] Comment:The reference ranges have not been established in urine chloride. The results should be integrated into the clinical context for interpretation. Urine URINE SPECIMEN OBTAINED BY CLEAN CATCH PROCEDURE / Unknown Non-blood Collection / Unknown 06/19/2024 5:13 PM SENIOR DYNAMICS CRM DEVELOPER 06/19/2024 5:18 PM SENIOR DYNAMICS CRM DEVELOPER us Azar Umanzor MD LAB - URINE ORDERABLES Final Res ult [facility] LABORATORY [facility] Lab [address] [facility], [address] [place] [address] * Sodium random urine (06/19/2024 5:13 PM SENIOR DYNAMICS CRM DEVELOPER) Sodium Urine mmol/L 121 mmol/L 06/19/2024 5:45 PM SENIOR DYNAMICS CRM DEVELOPER LABORATORY Comment:The reference ranges have not been established in urine sodium. The results should be integrated into the clinical context for interpretation. Urine URINE SPECIMEN OBTAINED BY CLEAN CATCH PROCEDURE / Unknown Non-blood Collection / Unknown 06/19/2024 5:13 PM SENIOR DYNAMICS CRM DEVELOPER 06/19/2024 5:19 PM SENIOR DYNAMICS CRM DEVELOPER Azar Umanzor MD LAB - URINE ORDERABLES Final Res ult LABORATORY [facility] Lab [address] Lab (1st floor, no room number) [place] [address] * (ABNORMAL) Basic metabolic panel (06/19/2024 6:36 AM SENIOR DYNAMICS CRM DEVELOPER) Sodium 144 135 - 145 mmol/L 06/19/2024 7:18 AM [facility] Potassium 4.2 3.4 - 5.3 mmol/L 06/19/2024 7:18 AM [facility] Chloride 104 98 - 107 mmol/L 06/19/2024 7:18 AM [facility] Carbon Dioxide (CO2) 28 22 - 29 mmol/L 06/19/2024 7:18 AM [facility] Anion Gap 12 7 - 15 mmol/L 06/19/2024 7:18 AM [facility] Urea Nitrogen 25.8(H) 6.0 - 20.0 mg/dL 06/19/2024 7:18 AM [facility] Creatinine 1.91(H) 0.51 - 0.95 mg/dL 06/19/2024 7:18 AM [facility] GFR Estimate 35(L) >60 mL/min/1.7 3m2 06/19/2024 7:18 AM SENIOR DYNAMICS CRM DEVELOPER [facility] LABORATORY Comment:eGFR calculated usin 2020 CKD-EPI equation. Calcium 9.9 8.8 - 10.4 mg/dL 06/19/2024 7:18 AM SENIOR DYNAMICS CRM DEVELOPER [facility] LABORATORY Comment:Reference intervals for this test were updated on 01/08/2024 to reflect our healthy population more accurately. There may be differences in the flagging of prior results with similar values performed with this method. Those prior results can be interpreted in the context of the updated reference intervals. Glucose 122(H) 70 - 99 mg/dL 06/19/2024 7:18 AM SENIOR DYNAMICS CRM DEVELOPER [facility] LABORATORY Blood STRUCTURE OF RIGHT HAND / Unknown Venipuncture / Unknown 06/19/2024 6:36 AM SENIOR DYNAMICS CRM DEVELOPER 06/19/2024 6:48 AM SENIOR DYNAMICS CRM DEVELOPER Azar Umanzor MD LAB - BLOOD ORDERABLES Final Res ult Performing Organization Address City/[facility]/ZIP Co de Phone Number LABORATORY [facility] [address] Lab (1st floor, no room number) [address] * (ABNORMAL) Phosphorus Lab (06/19/2024 6:36 AM SENIOR DYNAMICS CRM DEVELOPER) Phosphorus 2.1(L) 2.5 - 4.5 mg/dL 06/19/2024 7:18 AM SENIOR DYNAMICS CRM DEVELOPER LABORATORY Blood STRUCTURE OF RIGHT HAND / Unknown Venipuncture / Unknown 06/19/2024 6:36 AM SENIOR DYNAMICS CRM DEVELOPER 06/19/2024 6:48 AM SENIOR DYNAMICS CRM DEVELOPER Fabian Chowdary MD LAB - BLOOD ORDERABLES Final Result LABORATORY [facility] [address] Lab (1st floor, no room number) [address] * (ABNORMAL) Magnesium Lab (06/19/2024 6:36 AM SENIOR DYNAMICS CRM DEVELOPER) Magnesium 1.6(L) 1.7 - 2.3 mg/dL 06/19/2024 7:18 AM SENIOR DYNAMICS CRM DEVELOPER RH LABORATORY Blood STRUCTURE OF RIGHT HAND / Unknown Venipuncture / Unknown 06/19/2024 6:36 AM SENIOR DYNAMICS CRM DEVELOPER 06/19/2024 6:48 AM SENIOR DYNAMICS CRM DEVELOPER us Fabian Chowdary MD LAB - BLOOD ORDERABLES Final Result LABORATORY [facility] Lab [address] Lab (1st floor, no room number) [place] [address], [facility] * (ABNORMAL) Basic metabolic panel (06/18/2024 7:04 PM SENIOR DYNAMICS CRM DEVELOPER) Sodium 145 135 - 145 mmol/L 06/18/2024 7:41 PM [facility] Potassium 3.9 3.4 - 5.3 mmol/L 06/18/2024 7:41 PM [facility] Chloride 101 98 - 107 mmol/L 06/18/2024 7:41 PM [facility] Carbon Dioxide (CO2) 33(H) 22 - 29 mmol/L 06/18/2024 7:41 PM [facility] Anion Gap 11 7 - 15 mmol/L 06/18/2024 7:41 PM SENIOR DYNAMICS CRM DEVELOPER LABORATORY Urea Nitrogen 27.3(H) 6.0 - 20.0 mg/dL 06/18/2024 7:41 PM [facility] Creatinine 2.12(H) 0.51 - 0.95 mg/dL 06/18/2024 7:41 PM [facility] GFR Estimate 31(L) >60 mL/min/1.7 3m2 06/18/2024 7:41 PM SENIOR DYNAMICS CRM DEVELOPER LABORATORY Comment:eGFR calculated usin 2020 CKD-EPI equation. Calcium 9.9 8.8 - 10.4 mg/dL 06/18/2024 7:41 PM SENIOR DYNAMICS CRM DEVELOPER LABORATORY Comment:Reference intervals for this test were updated on 01/08/2024 to reflect our healthy population more accurately. There may be differences in the flagging of prior results with similar values performed with this method. Those prior results can be interpreted in the context of the updated reference intervals. Glucose 77 70 - 99 mg/dL 06/18/2024 7:41 PM SENIOR DYNAMICS CRM DEVELOPER LABORATORY Blood STRUCTURE OF LEFT HAND / Unknown Venipuncture / Unknown 06/18/2024 7:04 PM SENIOR DYNAMICS CRM DEVELOPER 06/18/2024 7:11 PM SENIOR DYNAMICS CRM DEVELOPER us Mike Teran MD LAB - BLOOD ORDERABLES Final Result LABORATORY [facility] Lab [address] Lab (1st floor, no room number) [place] [address], [facility] * EKG 12-lead, tracing only (06/18/2024 11:14 AM SENIOR DYNAMICS CRM DEVELOPER) Systolic Blood Pressure mmHg RADIOLOGY RESULTS Diastolic Blood Pressure mmHg RADIOLOGY RESULTS Ventricular Rate 77 BPM RAD IOLOGY RESULTS Atrial Rate 77 BPM RADIOLOG Y RESULTS MI Interval 110 ms RADIOLOG Y RESULTS QRS Duration 92 ms RADIOLO GY RESULTS QT 390 ms RADIOLOGY RESULTS QTc 441 ms RADIOLOGY RESULTS P [place] 32 degrees RADIOLOGY RESULTS R AXIS 73 degrees RADIOLOGY RESULTS T [place] 51 degrees RADIOLOGY RESULTS Interpretation ECG Sinus rhythm with short MI Otherwise normal ECG When compared with ECG of 16-Jun-2024 17:40, ST no longer depressed in Inferior leads ST no longer depressed in Anterolateral leads QT has shortened Confirmed by MD LUCIO, MICHI ([id number]) on 06/19/2024 3:02:42 PM RADIOLOGY RESULTS 06/18/2024 11:1 4 AM SENIOR DYNAMICS CRM DEVELOPER 06/19/2024 3:02 PM SENIOR DYNAMICS CRM DEVELOPER Azar Umanzor MD ECG ORDERABLES Edited Result - Final RADIOLOGY RESULTS * (ABNORMAL) Basic metabolic panel (06/18/2024 6:08 AM SENIOR DYNAMICS CRM DEVELOPER) Sodium 143 135 - 145 mmol/L 06/18/2024 6:50 AM SENIOR DYNAMICS CRM DEVELOPER LABORATORY Potassium 4.2 3.4 - 5.3 mmol/L 06/18/2024 6:50 AM SENIOR DYNAMICS CRM DEVELOPER LABORATORY Chloride 103 98 - 107 mmol/L 06/18/2024 6:50 AM [facility] Carbon Dioxide (CO2) 33(H) 22 - 29 mmol/L 06/18/2024 6:50 AM [facility] Anion Gap 7 7 - 15 mmol/L 06/18/2024 6:50 AM [facility] Urea Nitrogen 31.3(H) 6.0 - 20.0 mg/dL 06/18/2024 6:50 AM SENIOR DYNAMICS CRM DEVELOPER LABORATORY Creatinine 2.29(H) 0.51 - 0.95 mg/dL 06/18/2024 6:50 AM SENIOR DYNAMICS CRM DEVELOPER LABORATORY GFR Estimate 28(L) >60 mL/min/1.7 3m2 06/18/2024 6:50 AM SENIOR DYNAMICS CRM DEVELOPER RH LABORATORY Comment:eGFR calculated usin 2020 CKD-EPI equation. Calcium 9.9 8.8 - 10.4 mg/dL 06/18/2024 6:50 AM SENIOR DYNAMICS CRM DEVELOPER [facility] LABORATORY Comment:Reference intervals for this test were updated on 01/08/2024 to reflect our healthy population more accurately. There may be differences in the flagging of prior results with similar values performed with this method. Those prior results can be interpreted in the context of the updated reference intervals. Glucose 77 70 - 99 mg/dL 06/18/2024 6:50 AM SENIOR DYNAMICS CRM DEVELOPER LABORATORY Blood STRUCTURE OF LEFT HAND / Unknown Venipuncture / Unknown 06/18/2024 6:08 AM SENIOR DYNAMICS CRM DEVELOPER 06/18/2024 6:31 AM SENIOR DYNAMICS CRM DEVELOPER Azar Umanzor MD LAB - BLOOD ORDERABLES Final Res ult [facility] Lab [address] Lab (1st floor, no room number) [place] [address] * Phosphorus Lab (06/18/2024 6:08 AM SENIOR DYNAMICS CRM DEVELOPER) Phosphorus 2.5 2.5 - 4.5 mg/dL 06/18/2024 6:50 AM SENIOR DYNAMICS CRM DEVELOPER LABORATORY Blood STRUCTURE OF LEFT HAND / Unknown Venipuncture / Unknown 06/18/2024 6:08 AM SENIOR DYNAMICS CRM DEVELOPER 06/18/2024 6:31 AM SENIOR DYNAMICS CRM DEVELOPER Fabian Chowdary MD LAB - BLOOD ORDERABLES Final Result [facility] Lab [address] Lab (1st floor, no room number) [place] [address] * Magnesium Lab (06/18/2024 6:08 AM SENIOR DYNAMICS CRM DEVELOPER) Magnesium 1.8 1.7 - 2.3 mg/dL 06/18/2024 6:50 AM SENIOR DYNAMICS CRM DEVELOPER RH LABORATORY Blood STRUCTURE OF LEFT HAND / Unknown Venipuncture / Unknown 06/18/2024 6:08 AM SENIOR DYNAMICS CRM DEVELOPER 06/18/2024 6:31 AM SENIOR DYNAMICS CRM DEVELOPER us Fabian Chowdary MD LAB - BLOOD ORDERABLES Final Result RH LABORATORY [facility] Lab [address] Lab (1st floor, no room number) [place] [address] * (ABNORMAL) CBC with platelets (06/18/2024 6:08 AM SENIOR DYNAMICS CRM DEVELOPER) WBC Count 6.6 4.0 - 11.0 10e3/uL 06/18/2024 6:32 AM SENIOR DYNAMICS CRM DEVELOPER [facility] LABORATORY RBC Count 2.83(L) 3.80 - 5.20 10e6/uL 06/18/2024 6:32 AM SENIOR DYNAMICS CRM DEVELOPER [facility] LABORATORY Hemoglobin 7.7(L) 11.7 - 15.7 g/dL 06/18/2024 6:32 AM SENIOR DYNAMICS CRM DEVELOPER [facility] LABORATORY Hematocrit 24.0(L) 35.0 - 47.0 % 06/18/2024 6:32 AM SENIOR DYNAMICS CRM DEVELOPER RH LABORATORY MCV 85 78 - 100 fL 06/18/2024 6:32 AM SENIOR DYNAMICS CRM DEVELOPER [facility] LABORATORY MCH 27.2 26.5 - 33.0 pg 06/18/2024 6:32 AM SENIOR DYNAMICS CRM DEVELOPER RH LABORATORY MCHC 32.1 31.5 - 36.5 g/dL 06/18/2024 6:32 AM SENIOR DYNAMICS CRM DEVELOPER RH LABORATORY RDW 14.9 10.0 - 15.0 % 06/18/2024 6:32 AM SENIOR DYNAMICS CRM DEVELOPER [facility] LABORATORY Platelet Count 270 150 - 450 10e3/uL 06/18/2024 6:32 AM SENIOR DYNAMICS CRM DEVELOPER RH LABORATORY Blood STRUCTURE OF LEFT HAND / Unknown Venipuncture / Unknown 06/18/2024 6:08 AM SENIOR DYNAMICS CRM DEVELOPER 06/18/2024 6:29 AM SENIOR DYNAMICS CRM DEVELOPER Azar Umanzor MD LAB - BLOOD ORDERABLES Final Res ult LABORATORY [facility] Lab [address] [facility] Lab (1st floor, no room number) [place] [address], [facility] * (ABNORMAL) Basic metabolic panel (06/17/2024 10:14 PM SENIOR DYNAMICS CRM DEVELOPER) Sodium 142 135 - 145 mmol/L 06/17/2024 10:47 PM SENIOR DYNAMICS CRM DEVELOPER LABORATORY Potassium 4.0 3.4 - 5.3 mmol/L 06/17/2024 10:47 PM [facility] Chloride 97(L) 98 - 107 mmol/L 06/17/2024 10:47 PM [facility] Carbon Dioxide (CO2) 34(H) 22 - 29 mmol/L 06/17/2024 10:47 PM [facility] Anion Gap 11 7 - 15 mmol/L 06/17/2024 10:47 PM [facility] Urea Nitrogen 32.1(H) 6.0 - 20.0 mg/dL 06/17/2024 10:47 PM [facility] Creatinine 2.59(H) 0.51 - 0.95 mg/dL 06/17/2024 10:47 PM [facility] GFR Estimate 24(L) >60 mL/min/1.7 3m2 06/17/2024 10:47 PM [facility] Comment:eGFR calculated usin g 2020 CKD-EPI equation. Calcium 10.6(H) 8.8 - 10.4 mg/dL 06/17/2024 10:47 PM [facility] Comment:Reference intervals for this test were updated on 01/08/2024 to reflect our healthy population more accurately. There may be differences in the flagging of prior results with similar values performed with this method. Those prior results can be interpreted in the context of the updated reference intervals. Glucose 130(H) 70 - 99 mg/dL 06/17/2024 10:47 PM [facility] Blood STRUCTURE OF LEFT HAND / Unknown Venipuncture / Unknown 06/17/2024 10:14 PM SENIOR DYNAMICS CRM DEVELOPER 06/17/2024 10:17 PM SENIOR DYNAMICS CRM DEVELOPER us Azar Umanzor MD LAB - BLOOD ORDERABLES Final Res ult Performing Organization Address [facility]/ZIP Co de Phone Number [facility] Lab [address] Lab (1st floor, no room number) [place] [phone] [place] [address] * Potassium (06/17/2024 7:28 PM SENIOR DYNAMICS CRM DEVELOPER) Potassium 4.3 3.4 - 5.3 mmol/L 06/17/2024 8:01 PM SENIOR DYNAMICS CRM DEVELOPER [facility] LABORATORY Blood STRUCTURE OF LEFT HAND / Unknown Venipuncture / Unknown 06/17/2024 7:28 PM SENIOR DYNAMICS CRM DEVELOPER 06/17/2024 7:34 PM SENIOR DYNAMICS CRM DEVELOPER Azar Umanzor MD LAB - BLOOD ORDERABLES Final Res ult Performing Organization Address [facility] Co de Phone Number [facility] Lab [address] [employer] Lab (1st floor, no room number) [address] [place] [address] * Phosphorus (06/17/2024 7:28 PM SENIOR DYNAMICS CRM DEVELOPER) Phosphorus 2.6 2.5 - 4.5 mg/dL 06/17/2024 8:01 PM SENIOR DYNAMICS CRM DEVELOPER LABORATORY Blood STRUCTURE OF LEFT HAND / Unknown Venipuncture / Unknown 06/17/2024 7:28 PM SENIOR DYNAMICS CRM DEVELOPER 06/17/2024 7:34 PM SENIOR DYNAMICS CRM DEVELOPER Lorraine Mcclellan DO LAB - BLOOD ORDERABLES Fi nal Result Performing Organization Address [facility]/ZIP Co de Phone Number [facility] Lab [address] Lab (1st floor, no room number) [place] [phone] * (ABNORMAL) Osmolality (06/17/2024 1:48 PM SENIOR DYNAMICS CRM DEVELOPER) Osmolality Blood 300(H) 275 - 295 mmol/kg 06/17/2024 5:52 PM SENIOR DYNAMICS CRM DEVELOPER [facility] Blood STRUCTURE OF RIGHT HAND / Unknown Venipuncture / Unknown 06/17/2024 1:48 PM SENIOR DYNAMICS CRM DEVELOPER 06/17/2024 1:54 PM SENIOR DYNAMICS CRM DEVELOPER Narrative [facility] LABORATORY - 06/17/2024 5:52 PM SENIOR DYNAMICS CRM DEVELOPER Greater than 385 mmol/kg relates to stupor in hyperglycemia Greater than 400 mmol/kg can relate to seizures Greater than 420 mmol/kg can be lethal Serum Osmalar Gap: Normal <10 Larger suggest unmeasured substances present in serum (ethanol, methanol, isopropanol, mannitol, ethylene glycol). us Mike Teran MD LAB - BLOOD ORDERABLES Final Result [facility] LABORATORY [facility] Lab [address] [facility], [address] [place] [address], [facility] * (ABNORMAL) Potassium (06/17/2024 1:48 PM SENIOR DYNAMICS CRM DEVELOPER) Pathologist [facility] Potassium 3.2(L) 3.4 - 5.3 mmol/L 06/17/2024 2:13 PM SENIOR DYNAMICS CRM DEVELOPER LABORATORY Blood STRUCTURE OF RIGHT HAND / Unknown Venipuncture / Unknown 06/17/2024 1:48 PM SENIOR DYNAMICS CRM DEVELOPER 06/17/2024 1:54 PM SENIOR DYNAMICS CRM DEVELOPER Lorraine Mcclellan DO LAB - BLOOD ORDERABLES Fi nal Result LABORATORY [facility] Lab [address] Lab (1st floor, no room number) [place] [address], [facility] * (ABNORMAL) Basic metabolic panel (06/17/2024 1:48 PM SENIOR DYNAMICS CRM DEVELOPER) Sodium 141 135 - 145 mmol/L 06/17/2024 2:14 PM SENIOR DYNAMICS CRM DEVELOPER LABORATORY Potassium 3.3(L) 3.4 - 5.3 mmol/L 06/17/2024 2:14 PM SENIOR DYNAMICS CRM DEVELOPER LABORATORY Chloride 91(L) 98 - 107 mmol/L 06/17/2024 2:14 PM SENIOR DYNAMICS CRM DEVELOPER LABORATORY Carbon Dioxide (CO2) 35(H) 22 - 29 mmol/L 06/17/2024 2:14 PM SENIOR DYNAMICS CRM DEVELOPER LABORATORY Anion Gap 15 7 - 15 mmol/L 06/17/2024 2:14 PM SENIOR DYNAMICS CRM DEVELOPER LABORATORY Urea Nitrogen 33.5(H) 6.0 - 20.0 mg/dL 06/17/2024 2:14 PM SENIOR DYNAMICS CRM DEVELOPER LABORATORY Creatinine 2.70(H) 0.51 - 0.95 mg/dL 06/17/2024 2:14 PM SENIOR DYNAMICS CRM DEVELOPER LABORATORY GFR Estimate 23(L) >60 mL/min/1.7 3m2 06/17/2024 2:14 PM SENIOR DYNAMICS CRM DEVELOPER LABORATORY Comment:eGFR calculated usin g 2020 CKD-EPI equation. Calcium 11.4(H) 8.8 - 10.4 mg/dL 06/17/2024 2:14 PM SENIOR DYNAMICS CRM DEVELOPER LABORATORY Comment:Reference intervals for this test were updated on 01/08/2024 to reflect our healthy population more accurately. There may be differences in the flagging of prior results with similar values performed with this method. Those prior results can be interpreted in the context of the updated reference intervals. Glucose 80 70 - 99 mg/dL 06/17/2024 2:14 PM SENIOR DYNAMICS CRM DEVELOPER LABORATORY Blood STRUCTURE OF RIGHT HAND / Unknown Venipuncture / Unknown 06/17/2024 1:48 PM SENIOR DYNAMICS CRM DEVELOPER 06/17/2024 1:54 PM SENIOR DYNAMICS CRM DEVELOPER Azar Umanzor MD LAB - BLOOD ORDERABLES Final Res ult [facility] Lab [address] [facility] Lab (1st floor, no room number) [place] [address], [facility] * Creatinine random urine (06/17/2024 1:39 PM SENIOR DYNAMICS CRM DEVELOPER) Creatinine Urine mg/dL 32.8 mg/dL 06/17/2024 2:08 PM SENIOR DYNAMICS CRM DEVELOPER LABORATORY Comment:The reference ranges have not been established in urine creatinine. The results should be integrated into the clinical context for interpretation. Urine URINE SPECIMEN OBTAINED BY CLEAN CATCH PROCEDURE / Unknown Non-blood Collection / Unknown 06/17/2024 1:39 PM SENIOR DYNAMICS CRM DEVELOPER 06/17/2024 1:45 PM SENIOR DYNAMICS CRM DEVELOPER Mike Teran MD LAB - URINE ORDERABLES Final Result [facility] Lab [address] Lab (1st floor, no room number) [place] [address], [facility] * Potassium random urine (06/17/2024 1:39 PM SENIOR DYNAMICS CRM DEVELOPER) Potassium Urine 34.5 mmol/L 6:26 PM SENIOR DYNAMICS CRM DEVELOPER [facility] Comment:The reference ranges have not been established in urine potassium. The results should be integrated into the clinical context for interpretation. Urine URINE SPECIMEN OBTAINED BY CLEAN CATCH PROCEDURE / Unknown Non-blood Collection / Unknown 06/17/2024 1:39 PM SENIOR DYNAMICS CRM DEVELOPER 06/17/2024 1:44 PM SENIOR DYNAMICS CRM DEVELOPER us Mike Teran MD LAB - URINE ORDERABLES Final Result Performing Organization Address [facility]/ZIP Co de Phone Number U LABORATORY [facility] Core Lab [address] [facility], [address] [phone] * Osmolality urine (06/17/2024 1:39 PM SENIOR DYNAMICS CRM DEVELOPER) Osmolality Urine 307 100 - 1,200 mmol/kg 06/17/2024 5:52 PM SENIOR DYNAMICS CRM DEVELOPER [facility] Urine URINE SPECIMEN OBTAINED BY CLEAN CATCH PROCEDURE / Unknown Non-blood Collection / Unknown 06/17/2024 1:39 PM SENIOR DYNAMICS CRM DEVELOPER 06/17/2024 1:44 PM SENIOR DYNAMICS CRM DEVELOPER Narrative [facility] - 06/17/2024 5:52 PM SENIOR DYNAMICS CRM DEVELOPER Reference Ranges depend on patient's hydration status and renal function. Neonates: 75-300 mmol/kg 2 years and older, random specimens: 100-1200 mmol/kg; Greater than 850 mmol/kg after 12 hour fluid restriction Urine/serum osmolality ratio: 2 years and older: 1.0-3.0; 3.0-4.7 after 12 hour fluid restriction us Mike Teran MD LAB - URINE ORDERABLES Final Result Performing Organization Address City/[facility]/ZIP Co de Phone Number U LABORATORY [facility] Core Lab [address] [facility], [address] [place] [phone] * Chloride random urine (06/17/2024 1:39 PM SENIOR DYNAMICS CRM DEVELOPER) Chloride Urine mmol/L 27 mmol/L 06/17/2024 6:26 PM SENIOR DYNAMICS CRM DEVELOPER LABORATORY Comment:The reference ranges have not been established in urine chloride. The results should be integrated into the clinical context for interpretation. Urine URINE SPECIMEN OBTAINED BY CLEAN CATCH PROCEDURE / Unknown Non-blood Collection / Unknown 06/17/2024 1:39 PM SENIOR DYNAMICS CRM DEVELOPER 06/17/2024 1:44 PM SENIOR DYNAMICS CRM DEVELOPER Mike Teran MD LAB - URINE ORDERABLES Final Result LABORATORY [facility] Core Lab [address] [facility], [address] [place] [address], [facility] * Sodium random urine (06/17/2024 1:39 PM SENIOR DYNAMICS CRM DEVELOPER) Sodium Urine mmol/L 79 mmol/L 06/17/2024 2:08 PM SENIOR DYNAMICS CRM DEVELOPER LABORATORY Comment:The reference ranges have not been established in urine sodium. The results should be integrated into the clinical context for interpretation. Urine URINE SPECIMEN OBTAINED BY CLEAN CATCH PROCEDURE / Unknown Non-blood Collection / Unknown 06/17/2024 1:39 PM SENIOR DYNAMICS CRM DEVELOPER 06/17/2024 1:45 PM SENIOR DYNAMICS CRM DEVELOPER Mike Teran MD LAB - URINE ORDERABLES Final Result LABORATORY [facility] Lab [address] [facility] Lab (1st floor, no room number) [place] [address] * MR Knee Left w/o Contrast (06/17/2024 11:35 AM SENIOR DYNAMICS CRM DEVELOPER) Anatomical Region Laterality Modality Left Knee, SUBRAD MR MSK, UMP MR MSK, RAD MR Magnetic Resonance Impressions 06/17/2024 11:59 AM SENIOR DYNAMICS CRM DEVELOPER IMPRESSION: 1. Subtle soft tissue edema superficial to an intact tibial collateral ligament. Correlate clinically for a low-grade sprain. 2. Nonspecific focus of bone marrow edema along the posterior aspect of the lateral femoral condyle. Correlate for bone contusion. 3. The anterior and posterior cruciate ligaments, lateral supporting structures, and bilateral menisci are intact. JESSICA EDWARD MD Narrative 06/17/2024 11:59 AM SENIOR DYNAMICS CRM DEVELOPER EXAMINATION: MRI of the left knee without [...] Result * (ABNORMAL) Potassium (06/17/2024 10:11 AM SENIOR DYNAMICS CRM DEVELOPER) Potassium 3.0(L) 3.4 - 5.3 mmol/L 06/17/2024 10:39 AM SENIOR DYNAMICS CRM DEVELOPER LABORATORY Blood STRUCTURE OF RIGHT HAND / Unknown Venipuncture / Unknown 06/17/2024 10:11 AM SENIOR DYNAMICS CRM DEVELOPER 06/17/2024 10:15 AM SENIOR DYNAMICS CRM DEVELOPER Fabian Chowdary MD LAB - BLOOD ORDERABLES Final Result [facility] Acute Care Lab [address] [facility] Lab (1st floor, no room number) [place] [address], [facility] * (ABNORMAL) Phosphorus Lab (06/17/2024 6:52 AM SENIOR DYNAMICS CRM DEVELOPER) Phosphorus 1.8(L) 2.5 - 4.5 mg/dL 06/17/2024 7:42 AM SENIOR DYNAMICS CRM DEVELOPER LABORATORY Blood STRUCTURE OF RIGHT HAND / Unknown Venipuncture / Unknown 06/17/2024 6:52 AM SENIOR DYNAMICS CRM DEVELOPER 06/17/2024 7:13 AM SENIOR DYNAMICS CRM DEVELOPER us Fabian Chowdary MD LAB - BLOOD ORDERABLES Final Result LABORATORY [facility] [address] Lab (1st floor, no room number) [address] * Magnesium Lab (06/17/2024 6:52 AM SENIOR DYNAMICS CRM DEVELOPER) Pathologist [facility] Magnesium 2.1 1.7 - 2.3 mg/dL 06/17/2024 7:42 AM SENIOR DYNAMICS CRM DEVELOPER [facility] LABORATORY Blood STRUCTURE OF RIGHT HAND / Unknown Venipuncture / Unknown 06/17/2024 6:52 AM SENIOR DYNAMICS CRM DEVELOPER 06/17/2024 7:13 AM SENIOR DYNAMICS CRM DEVELOPER us Fabian Chowdary MD LAB - BLOOD ORDERABLES Final Result Performing Organization Address [facility]/ZIP Co de Phone Number LABORATORY [facility] [address] Lab (1st floor, no room number) [address] * (ABNORMAL) CBC with platelets (06/17/2024 6:52 AM SENIOR DYNAMICS CRM DEVELOPER) WBC Count 6.4 4.0 - 11.0 10e3/uL 06/17/2024 7:19 AM SENIOR DYNAMICS CRM DEVELOPER RH LABORATORY RBC Count 2.91(L) 3.80 - 5.20 10e6/uL 06/17/2024 7:19 AM SENIOR DYNAMICS CRM DEVELOPER RH LABORATORY Hemoglobin 7.9(L) 11.7 - 15.7 g/dL 06/17/2024 7:19 AM SENIOR DYNAMICS CRM DEVELOPER RH LABORATORY Hematocrit 23.9(L) 35.0 - 47.0 % 06/17/2024 7:19 AM SENIOR DYNAMICS CRM DEVELOPER RH LABORATORY MCV 82 78 - 100 fL 06/17/2024 7:19 AM SENIOR DYNAMICS CRM DEVELOPER RH LABORATORY MCH 27.1 26.5 - 33.0 pg 06/17/2024 7:19 AM SENIOR DYNAMICS CRM DEVELOPER RH LABORATORY MCHC 33.1 31.5 - 36.5 g/dL 06/17/2024 7:19 AM SENIOR DYNAMICS CRM DEVELOPER RH LABORATORY RDW 14.3 10.0 - 15.0 % 06/17/2024 7:19 AM [facility] Platelet Count 268 150 - 450 10e3/uL 06/17/2024 7:19 AM [facility] Blood STRUCTURE OF RIGHT HAND / Unknown Venipuncture / Unknown 06/17/2024 6:52 AM SENIOR DYNAMICS CRM DEVELOPER 06/17/2024 7:13 AM SENIOR DYNAMICS CRM DEVELOPER us Fabian Chowdary MD LAB - BLOOD ORDERABLES Final Result LABORATORY [facility] [address] Lab (1st floor, no room number) [place] [address], [facility] * (ABNORMAL) Basic metabolic panel (06/17/2024 6:52 AM SENIOR DYNAMICS CRM DEVELOPER) Sodium 140 135 - 145 mmol/L 06/17/2024 7:59 AM [facility] Potassium 3.1(L) 3.4 - 5.3 mmol/L 06/17/2024 7:59 AM [facility] Chloride 89(L) 98 - 107 mmol/L 06/17/2024 7:59 AM [facility] Carbon Dioxide (CO2) 40(H) 22 - 29 mmol/L 06/17/2024 7:59 AM [facility] Anion Gap 11 7 - 15 mmol/L 06/17/2024 7:59 AM [facility] Urea Nitrogen 36.2(H) 6.0 - 20.0 mg/dL 06/17/2024 7:59 AM [facility] Creatinine 3.11(H) 0.51 - 0.95 mg/dL 06/17/2024 7:59 AM [facility] GFR Estimate 19(L) >60 mL/min/1.7 3m2 06/17/2024 7:59 AM [facility] Comment:eGFR calculated usin 2020 CKD-EPI equation. Calcium 10.9(H) 8.8 - 10.4 mg/dL 06/17/2024 7:59 AM [facility] Comment:Reference intervals for this test were updated on 01/08/2024 to reflect our healthy population more accurately. There may be differences in the flagging of prior results with similar values performed with this method. Those prior results can be interpreted in the context of the updated reference intervals. Glucose 92 70 - 99 mg/dL 06/17/2024 7:59 AM SENIOR DYNAMICS CRM DEVELOPER RH LABORATORY Blood STRUCTURE OF RIGHT HAND / Unknown Venipuncture / Unknown 06/17/2024 6:52 AM SENIOR DYNAMICS CRM DEVELOPER 06/17/2024 7:13 AM SENIOR DYNAMICS CRM DEVELOPER Fabian Chowdary MD LAB - BLOOD ORDERABLES Final Result [facility] [address] Lab (1st floor, no room number) [address] [place] [address] * (ABNORMAL) Potassium (06/17/2024 1:33 AM SENIOR DYNAMICS CRM DEVELOPER) Potassium 2.4(LL) 3.4 - 5.3 mmol/L 06/17/2024 2:19 AM SENIOR DYNAMICS CRM DEVELOPER LABORATORY Blood STRUCTURE OF LEFT HAND / Unknown Venipuncture / Unknown 06/17/2024 1:33 AM SENIOR DYNAMICS CRM DEVELOPER 06/17/2024 1:39 AM SENIOR DYNAMICS CRM DEVELOPER Fabian Chowdary MD LAB - BLOOD ORDERABLES Final Result Performing Organization Address [facility]/ZIP Co de Phone Number [facility] [address] Lab (1st floor, no room number) [place] [phone] * Phosphorus (06/16/2024 7:31 PM SENIOR DYNAMICS CRM DEVELOPER) Phosphorus 2.5 2.5 - 4.5 mg/dL 06/16/2024 8:52 PM SENIOR DYNAMICS CRM DEVELOPER LABORATORY Blood BLOOD SPECIMEN / Unknown Venipuncture / Unknown 06/16/2024 7:31 PM SENIOR DYNAMICS CRM DEVELOPER 06/16/2024 7:35 PM SENIOR DYNAMICS CRM DEVELOPER Jamil Madison MD LAB - BLOOD ORDERABLES Fi nal Result Performing Organization Address City/[facility]/ZIP Co de Phone Number [facility] [address] Lab (1st floor, no room number) [place] [phone] * (ABNORMAL) Magnesium (06/16/2024 7:31 PM SENIOR DYNAMICS CRM DEVELOPER) Magnesium 2.4(H) 1.7 - 2.3 mg/dL 06/16/2024 8:52 PM SENIOR DYNAMICS CRM DEVELOPER LABORATORY Blood BLOOD SPECIMEN / Unknown Venipuncture / Unknown 06/16/2024 7:31 PM SENIOR DYNAMICS CRM DEVELOPER 06/16/2024 7:35 PM SENIOR DYNAMICS CRM DEVELOPER Jamil Madison MD LAB - BLOOD ORDERABLES Fi nal Result LABORATORY [facility] [address] [facility] Lab (1st floor, no room number) [place] [address], [facility] * (ABNORMAL) Basic metabolic panel (BMP) (06/16/2024 7:31 PM SENIOR DYNAMICS CRM DEVELOPER) Sodium 138 135 - 145 mmol/L 06/16/2024 8:31 PM SENIOR DYNAMICS CRM DEVELOPER LABORATORY Potassium 2.0(LL) 3.4 - 5.3 mmol/L 06/16/2024 8:31 PM SENIOR DYNAMICS CRM DEVELOPER LABORATORY Chloride 73(L) 98 - 107 mmol/L 06/16/2024 8:31 PM [facility] Carbon Dioxide (CO2) 50(HH) 22 - 29 mmol/L 06/16/2024 8:31 PM [facility] Anion Gap 15 7 - 15 mmol/L 06/16/2024 8:31 PM [facility] Urea Nitrogen 43.0(H) 6.0 - 20.0 mg/dL 06/16/2024 8:31 PM SENIOR DYNAMICS CRM DEVELOPER LABORATORY Creatinine 3.59(H) 0.51 - 0.95 mg/dL 06/16/2024 8:31 PM SENIOR DYNAMICS CRM DEVELOPER LABORATORY GFR Estimate 16(L) >60 mL/min/1.7 3m2 06/16/2024 8:31 PM SENIOR DYNAMICS CRM DEVELOPER LABORATORY Comment:eGFR calculated usin g 2020 CKD-EPI equation. Calcium 13.2(H) 8.8 - 10.4 mg/dL 06/16/2024 8:31 PM SENIOR DYNAMICS CRM DEVELOPER LABORATORY Comment:Reference intervals for this test were updated on 01/08/2024 to reflect our healthy population more accurately. There may be differences in the flagging of prior results with similar values performed with this method. Those prior results can be interpreted in the context of the updated reference intervals. Glucose 101(H) 70 - 99 mg/dL 06/16/2024 8:31 PM SENIOR DYNAMICS CRM DEVELOPER LABORATORY Blood BLOOD SPECIMEN / Unknown Venipuncture / Unknown 06/16/2024 7:31 PM SENIOR DYNAMICS CRM DEVELOPER 06/16/2024 7:35 PM SENIOR DYNAMICS CRM DEVELOPER Jamil Madison MD LAB - BLOOD ORDERABLES Fi nal Result [facility] [address] Lab (1st floor, no room number) [place] [address] * XR Knee Left 3 Views (06/16/2024 6:16 PM SENIOR DYNAMICS CRM DEVELOPER) Anatomical Region Laterality Modality Thigh, Knee, Leg Left Digital Radiogr aphy 06/16/2024 6:16 PM SENIOR DYNAMICS CRM DEVELOPER Impressions 06/16/2024 6:36 PM SENIOR DYNAMICS CRM DEVELOPER IMPRESSION: Normal left knee joint spacing and alignment. No sizable effusion. Negative for acute fracture. Narrative 06/16/2024 6:36 PM SENIOR DYNAMICS CRM DEVELOPER EXAM: XR KNEE LEFT 3 VIEWS LOCATION: [facility] DATE: 06/16/2024 INDICATION: fall, medial pain COMPARISON: None. Procedure Note Stephon Farias MD - 06/16/2024 EXAM: XR KNEE LEFT 3 VIEWS LOCATION: [facility] DATE: 06/16/2024 INDICATION: fall, medial pain COMPARISON: None. IMPRESSION: Normal left knee joint spacing and alignment. No sizable effusion.Negative for acute fracture. us Jamil Madison MD IMG DIAGNOSTIC IMAGING OR DERABLES Final Result * (ABNORMAL) CBC with platelets and differential (06/16/2024 5:53 PM SENIOR DYNAMICS CRM DEVELOPER) WBC Count 6.3 4.0 - 11.0 10e3/uL 06/16/2024 6:04 PM SENIOR DYNAMICS CRM DEVELOPER LABORATORY RBC Count 3.48(L) 3.80 - 5.20 10e6/uL 06/16/2024 6:04 PM SENIOR DYNAMICS CRM DEVELOPER [facility] LABORATORY Hemoglobin 9.5(L) 11.7 - 15.7 g/dL 06/16/2024 6:04 PM SENIOR DYNAMICS CRM DEVELOPER [facility] LABORATORY Hematocrit 27.8(L) 35.0 - 47.0 % 06/16/2024 6:04 PM SENIOR DYNAMICS CRM DEVELOPER [facility] LABORATORY MCV 80 78 - 100 fL 06/16/2024 6:04 PM SENIOR DYNAMICS CRM DEVELOPER RH LABORATORY MCH 27.3 26.5 - 33.0 pg 06/16/2024 6:04 PM SENIOR DYNAMICS CRM DEVELOPER RH LABORATORY MCHC 34.2 31.5 - 36.5 g/dL 06/16/2024 6:04 PM SENIOR DYNAMICS CRM DEVELOPER RH LABORATORY RDW 14.0 10.0 - 15.0 % 06/16/2024 6:04 PM SENIOR DYNAMICS CRM DEVELOPER [facility] LABORATORY Platelet Count 340 150 - 450 10e3/uL 06/16/2024 6:04 PM SENIOR DYNAMICS CRM DEVELOPER [facility] LABORAT[facility] % Neutrophils 58 % 06/16/2024 6:04 PM SENIOR DYNAMICS CRM DEVELOPER [facility] LABORAT[facility] % Lymphocytes 29 % 06/16/2024 6:04 PM SENIOR DYNAMICS CRM DEVELOPER [facility] LAB[facility]AT[facility] % Monocytes 9 % 06/16/2024 6:04 PM SENIOR DYNAMICS CRM DEVELOPER [facility] LABORAT[facility] % Eosinophils 3 % 06/16/2024 6:04 PM SENIOR DYNAMICS CRM DEVELOPER [facility] LABORATORY % Basophils 1 % 06/16/2024 6:04 PM SENIOR DYNAMICS CRM DEVELOPER [facility] LABORATORY % Immature Granulocytes 1 % 06/16/2024 6:04 PM SENIOR DYNAMICS CRM DEVELOPER RH LABORATORY NRBCs per 100 WBC 0 <1 /100 024 6:04 PM SENIOR DYNAMICS CRM DEVELOPER [facility] LABORATORY Absolute Neutrophils 3.6 1.6 - 8.3 10e3/uL 06/16/2024 6:04 PM SENIOR DYNAMICS CRM DEVELOPER [facility] LABORATORY Absolute Lymphocytes 1.8 0.8 - 5.3 10e3/uL 06/16/2024 6:04 PM SENIOR DYNAMICS CRM DEVELOPER [facility] LABORATORY Absolute Monocytes 0.6 0.0 - 1.3 10e3/uL 06/16/2024 6:04 PM SENIOR DYNAMICS CRM DEVELOPER [facility] LABORATORY Absolute Eosinophils 0.2 0.0 - 0.7 10e3/uL 06/16/2024 6:04 PM SENIOR DYNAMICS CRM DEVELOPER RH LABORATORY Absolute Basophils 0.1 0.0 - 0.2 10e3/uL 06/16/2024 6:04 PM SENIOR DYNAMICS CRM DEVELOPER RH LABORATORY Absolute Immature Granulocytes 0.0 <=0.4 10e3/uL 06/16/2024 6:04 PM SENIOR DYNAMICS CRM DEVELOPER RH LABORATORY Absolute NRBCs 0.0 10e3/uL 06/16/2024 6:04 PM SENIOR DYNAMICS CRM DEVELOPER LABORATORY Blood BLOOD SPECIMEN / Unknown Venipuncture / Unknown 06/16/2024 5:53 PM SENIOR DYNAMICS CRM DEVELOPER 06/16/2024 6:01 PM SENIOR DYNAMICS CRM DEVELOPER Jamil Madison MD LAB - BLOOD ORDERABLES Fi nal Result Performing Organization Address City/[facility]/ZIP Co de Phone Number [facility] [address] Lab (1st floor, no room number) [place] [phone] * Troponin T, High Sensitivity (06/16/2024 5:53 PM SENIOR DYNAMICS CRM DEVELOPER) [facility] Troponin T, High Sensitivity <6 <=14 ng/L 06/16/2024 6:26 PM SENIOR DYNAMICS CRM DEVELOPER LABORATORY Comment: Either a High Sensitivity Troponin [...] Unknown Venipuncture / Unknown 06/16/2024 5:53 PM SENIOR DYNAMICS CRM DEVELOPER 06/16/2024 6:01 PM SENIOR DYNAMICS CRM DEVELOPER us Jamil Madison MD LAB - BLOOD ORDERABLES Fi nal Result [facility] [address] Lab (1st floor, no room number) [place] [address] * EKG 12-lead, tracing only (06/16/2024 5:40 PM SENIOR DYNAMICS CRM DEVELOPER) Systolic Blood Pressure mmHg RADIOLOGY RESULTS Diastolic Blood Pressure mmHg RADIOLOGY RESULTS Ventricular Rate 76 BPM RAD IOLOGY RESULTS Atrial Rate 76 BPM RADIOLOG Y RESULTS MI Interval 132 ms RADIOLOG Y RESULTS QRS Duration 88 ms RADIOLO GY RESULTS QT 544 ms RADIOLOGY RESULTS QTc 612 ms RADIOLOGY RESULTS P [place] 63 degrees RADIOLOGY RESULTS R AXIS 84 degrees RADIOLOGY RESULTS T [place] 69 degrees RADIOLOGY RESULTS Interpretation ECG Sinus [...] Confirmed by - EMERGENCY ROOM, PHYSICIAN ([id number]), social media editor NETTIE KIM ([id number]) on 06/17/2024 6:47:27 AM RADIOLOGY RESULTS 06/16/2024 5:40 PM SENIOR DYNAMICS CRM DEVELOPER 06/17/2024 6:47 AM SENIOR DYNAMICS CRM DEVELOPER us Jamil Madison MD ECG ORDERABLES Edited [...] 06/19/24 at 0909 Restarted 06/18/2024 12:08 PM SENIOR DYNAMICS CRM DEVELOPER 100 mL/hr $New Bag 06/18/2024 6:08 AM SENIOR DYNAMICS CRM DEVELOPER 100 mL/hr $New Bag 06/17/2024 8:27 PM SENIOR DYNAMICS CRM DEVELOPER 100 mL/hr acetaminophen (TYLENOL) tablet 1,000 mg 1,000 mg, Oral, ONCE, On Sun06/16/24 at 1845, For 1 dose, Maximum acetaminophen dose from all sources = 75 mg/kg/day not to exceed 4 gram $Given 06/16/2024 6:50 PM SENIOR DYNAMICS CRM DEVELOPER 1,000 mg acetaminophen (TYLENOL) tablet 650 mg 650 mg, Oral, EVERY 4 HOURS PRN, mild pain, other, and adjunct with moderate or severe pain or per patient request, Starting on Sun06/16/24 at 2211, Alternate with ibuprofen if ordered. Maximum acetaminophen dose from all sources = 75 mg/kg/day not to exceed 4 grams/day. $Given 06/17/2024 3:03 AM SENIOR DYNAMICS CRM DEVELOPER 650 mg acetaminophen (TYLENOL) tablet 975 mg 975 mg, Oral, 3 TIMES DAILY, First dose on Sun06/19/24 at 0930, Maximum acetaminophen dose from all sources = 75 mg/kg/day not to exceed 4 grams/day. $Given 06/20/2024 9:40 AM SENIOR DYNAMICS CRM DEVELOPER 975 mg $Given 06/19/2024 10:14 PM SENIOR DYNAMICS CRM DEVELOPER 975 mg $Given 06/19/2024 4:27 PM SENIOR DYNAMICS CRM DEVELOPER 975 mg diclofenac (VOLTAREN) 1 % topical gel 2 g 2 g, Topical, 3 TIMES DAILY, First dose on Sun06/19/24 at 1730, Apply to left knee same time as menthol gel . Use supplied dosing card to measure dose. gabapentin (NEURONTIN) capsule 300 mg 300 mg, Oral, 2 TIMES DAILY, First dose on Sun06/17/24 at 0930 $Given 06/19/2024 11:15 AM SENIOR DYNAMICS CRM DEVELOPER 300 mg $Given 06/19/2024 8:43 AM SENIOR DYNAMICS CRM DEVELOPER 300 mg $Given 06/18/2024 12:08 PM SENIOR DYNAMICS CRM DEVELOPER 300 mg gabapentin (NEURONTIN) capsule 400 mg 400 mg, Oral, AT BEDTIME, First dose on Sun06/17/24 at 2200 $Given 06/19/2024 10:14 PM SENIOR DYNAMICS CRM DEVELOPER 400 mg $Given 06/18/2024 10:07 PM SENIOR DYNAMICS CRM DEVELOPER 400 mg $Given 06/17/2024 10:25 PM SENIOR DYNAMICS CRM DEVELOPER 400 mg gabapentin (NEURONTIN) capsule 400 mg 400 mg, Oral, 2 TIMES DAILY, First dose (after last modification) on Sun06/20/24 at 0800 $Given 06/20/2024 11:27 AM SENIOR DYNAMICS CRM DEVELOPER 400 mg $Given 06/20/2024 9:40 AM SENIOR DYNAMICS CRM DEVELOPER 400 mg HYDROmorphone (DILAUDID) injection 0.2 mg 0.2 mg, Intravenous, ONCE PRN, other, pain not controlled with oxy and assess response, Starting on Sun06/17/24 at 0554, For 1 dose $Given 06/17/2024 6:19 AM SENIOR DYNAMICS CRM DEVELOPER 0.2 mg hydrOXYzine HCl (ATARAX) tablet 25-50 mg 25-50 mg, Oral, EVERY 6 HOURS PRN, other, adjuvant pain, Starting on Sun06/17/24 at 0108 $Given 06/20/2024 9:40 AM SENIOR DYNAMICS CRM DEVELOPER 50 mg $Given 06/20/2024 3:09 AM SENIOR DYNAMICS CRM DEVELOPER 25 mg $Given 06/19/2024 9:01 PM SENIOR DYNAMICS CRM DEVELOPER 50 mg magnesium sulfate 2 g in 50 mL sterile water intermittent infusion 2 g, Intravenous, Administer over 60 Minutes, at 50 mL/hr, ONCE, On Sun06/19/24 at 0930, For 1 dose $New Bag 06/19/2024 11:15 AM SENIOR DYNAMICS CRM DEVELOPER 2 g 50 mL/hr menthol (Topical Analgesic) 2.5% (BENGAY VANISHING SCENT) 2.5 % topical gel Topical, 3 TIMES DAILY, First dose on Sun06/19/24 at 1730, Apply to left knee with diclofenac gel methocarbamol (ROBAXIN) tablet 750 mg 750 mg, Oral, 4 TIMES DAILY PRN, muscle spasms, Starting on Sun06/16/24 at 2211 $Given 06/20/2024 9:40 AM SENIOR DYNAMICS CRM DEVELOPER 750 mg $Given 06/20/2024 3:18 AM SENIOR DYNAMICS CRM DEVELOPER 750 mg $Given 06/19/2024 9:01 PM SENIOR DYNAMICS CRM DEVELOPER 750 mg naloxone (NARCAN) injection 0.2 mg [...] For 1 dose $Given 06/16/2024 6:51 PM SENIOR DYNAMICS CRM DEVELOPER 5 mg oxyCODONE (ROXICODONE) tablet 5 mg 5 mg, Oral, ONCE, On Sun06/16/24 at 1945, For 1 dose $Given 06/16/2024 7:51 PM SENIOR DYNAMICS CRM DEVELOPER 5 mg oxyCODONE IR (ROXICODONE) tablet 10 mg 10 mg, Oral, EVERY 4 HOURS PRN, severe pain, IF pain not managed with non-pharmacological and non-opioid interventions, Starting on Sun06/16/24 at 2211, May use concomitant with non-opioid analgesics. $Given 06/19/2024 5:07 AM SENIOR DYNAMICS CRM DEVELOPER 10 mg $Given 06/18/2024 9:58 PM SENIOR DYNAMICS CRM DEVELOPER 10 mg $Given 06/18/2024 5:45 PM SENIOR DYNAMICS CRM DEVELOPER 10 mg oxyCODONE IR (ROXICODONE) tablet 10 mg 10 mg, Oral, EVERY 6 HOURS PRN, severe pain, IF pain not managed with non-pharmacological and non-opioid interventions, Starting on Sun06/19/24 at 0725, May use concomitant with non-opioid analgesics. $Given 06/20/2024 9:40 AM SENIOR DYNAMICS CRM DEVELOPER 10 mg $Given 06/20/2024 3:09 AM SENIOR DYNAMICS CRM DEVELOPER 10 mg $Given 06/19/2024 9:00 PM SENIOR DYNAMICS CRM DEVELOPER 10 mg polyethylene glycol (MIRALAX) Packet 17 [...] tube dose $Given 06/17/2024 4:06 P M SENIOR DYNAMICS CRM DEVELOPER 1 packet $Given 06/17/2024 11:58 AM SENIOR DYNAMICS CRM DEVELOPER 1 packet $Given 06/17/2024 8:34 AM SENIOR DYNAMICS CRM DEVELOPER 1 packet potassium & sodium phosphates (NEUTRA-PHOS) [...] level next AM $Given 06/19/2024 8:50 PM SENIOR DYNAMICS CRM DEVELOPER 1 packet $Given 06/19/2024 4:27 PM SENIOR DYNAMICS CRM DEVELOPER 1 packet $Given 06/19/2024 11:15 AM SENIOR DYNAMICS CRM DEVELOPER 1 packet potassium chloride (KLOR-CON) Packet 40 mEq 40 mEq, Oral, ONCE, On Sun06/16/24 at 2039, For 1 dose, Dissolve packet contents in 4-8 ounces of cold water or juice. $Given 06/16/2024 9:26 PM SENIOR DYNAMICS CRM DEVELOPER 40 mEq potassium chloride 10 mEq in 100 mL sterile water infusion 10 mEq, Intravenous, Administer over 60 Minutes, at 100 mL/hr, ONCE, On Sun06/16/24 at 2039, For 1 dose $New 06/16/2024 9:26 PM SENIOR DYNAMICS CRM DEVELOPER 10 mEq 100 mL/hr potassium chloride 10 mEq in 100 mL sterile water infusion 10 mEq, Intravenous, Administer over 60 Minutes, at 100 mL/hr, ONCE, On Sun06/17/24 at 0300, For 1 dose $New 06/17/2024 3:54 AM SENIOR DYNAMICS CRM DEVELOPER 10 mEq 100 mL/hr potassium chloride 10 [...] Potassium replacement order set. $06/17/2024 10:52 AM SENIOR DYNAMICS CRM DEVELOPER 10 mEq 100 mL/hr $06/17/2024 8:58 AM SENIOR DYNAMICS CRM DEVELOPER 10 mEq 100 mL/hr potassium chloride 10 [...] replacement order set. $New 06/17/2024 4:45 PM SENIOR DYNAMICS CRM DEVELOPER 10 mEq 100 mL/hr $06/17/2024 3:12 PM SENIOR DYNAMICS CRM DEVELOPER 10 mEq 100 mL/hr potassium chloride deanne ER (KLOR-CON M20) CR tablet 20 mEq 20 mEq, Oral, ONCE, On Sun06/17/24 at 0430, For 1 dose, Potassium level less than 2.7 mmol/L Ordered from the Potassium replacement order set. DO NOT CRUSH, Potassium Replacement: Potassium level LESS than 2.7 mmol/L, Recheck: Potassium level 4 hours AFTER last oral dose $Given 06/17/2024 5:05 AM SENIOR DYNAMICS CRM DEVELOPER 20 mEq potassium chloride deanne ER (KLOR-CON M20) CR tablet 40 mEq 40 mEq, Oral, 4 TIMES DAILY, First dose on Sun06/17/24 at 0800, DO NOT CRUSH $Given 06/18/2024 8:19 AM SENIOR DYNAMICS CRM DEVELOPER 40 mEq $Given 06/17/2024 7:45 PM SENIOR DYNAMICS CRM DEVELOPER 40 mEq $Given 06/17/2024 4:06 PM SENIOR DYNAMICS CRM DEVELOPER 40 mEq potassium chloride deanne ER (KLOR-CON M20) CR tablet 40 mEq 40 mEq, Oral, ONCE, On Sun06/17/24 at 0230, For 1 dose, Potassium level less than 2.7 mmol/L Ordered from the Potassium replacement order set. DO NOT CRUSH, Potassium Replacement: Potassium level LESS than 2.7 mmol/L, Recheck: Potassium level 4 hours AFTER last oral dose $Given 06/17/2024 2:53 AM SENIOR DYNAMICS CRM DEVELOPER 40 mEq potassium chloride deanne ER (KLOR-CON M20) CR tablet 40 mEq 40 mEq, Oral, 3 TIMES DAILY, First dose (after last modification) on Sun06/18/24 at 1600, DO NOT CRUSH $Given 06/20/2024 9:40 AM SENIOR DYNAMICS CRM DEVELOPER 40 mEq $Given 06/19/2024 10:14 PM SENIOR DYNAMICS CRM DEVELOPER 40 mEq $Given 06/19/2024 4:27 PM SENIOR DYNAMICS CRM DEVELOPER 40 mEq prochlorperazine (COMPAZINE) injection 10 mg [...] IV dormant line $Given 06/20/2024 9:43 AM SENIOR DYNAMICS CRM DEVELOPER 3 mLs $Given 06/19/2024 10:14 PM SENIOR DYNAMICS CRM DEVELOPER 3 mLs $Given 06/19/2024 6:25 AM SENIOR DYNAMICS CRM DEVELOPER 3 mLs sodium chloride (PF) 0.9% PF flush 3 mL 3 mL, Intracatheter, EVERY 1 MIN PRN, line flush, other, to ensure patency or to lock dormant line, Starting on Sun06/16/24 at 2211 $Given 06/20/2024 2:04 AM SENIOR DYNAMICS CRM DEVELOPER 3 mLs $Given 06/19/2024 5:08 AM SENIOR DYNAMICS CRM DEVELOPER 3 mLs $Given 06/17/2024 8:29 PM SENIOR DYNAMICS CRM DEVELOPER 3 mLs sodium chloride 0.9% BOLUS 1,000 mL Intravenous, 1,000 mL, ONCE, On Sun06/16/24 at 2040, For 1 dose $New Bag 06/16/2024 9:23 PM SENIOR DYNAMICS CRM DEVELOPER 1,000 mLs documented in this encounter Active and Recently Administered Medications Times are shown in SENIOR DYNAMICS CRM DEVELOPER. Scheduled Medication Order 06/18/2024 06/19/2024 06/20/2024 acetaminophen [...] stools. documented in this encounter Care Teams Ultrasound Coordinator Relationship Specialty [place] [id number] [place] [address] PCP - General 03/07/24 documented as of this encounter
--- OUTSIDE RECORDS SUMMARY | 2024-07-08 19:38 | XMS_ITS | Encounter Summary ---
Author Organization [facility] Address [address] [place] [address]. 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 Gender Identity Not on file Sexual Orientation Not on file 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 Not on file Not on file documented as of this encounter Plan of Treatment Upcoming Encounters Date Type Department Care Team (Late st Contact Info) Description 07/09/2024 11:00 AM WALL MIRROR DEPARTMENT SUPERVISOR Virtual Visit [facility] [address] [address] [place] [id number] [place], [place] [id number] [place], [address] [facility] [address] [place] [address] documented as of this encounter Visit Diagnoses Not on filedocumented in this encounter Additional Health Concerns Infection Onset Date Last Indicated Resolved Time Rule Out COVID-19 07/01/2024 07/01/2024 07/01/2024 12:22 PM [employer] DEPARTMENT SUPERVISOR documented as of this encounter Care Teams Game Preserve Manager Relationship Specialty [place] [address] [place] [address] PCP - General 03/07/24 documented as of this encounter
--- OUTSIDE RECORDS SUMMARY | 2024-07-08 19:38 | XMS_ITS | Encounter Summary ---
Author Organization [place] Address [address] [place] [address] Care Team Providers Care Crucible Furnace Tender Name Role Phone Gregg Corrales MD Primary Care Provider Reason for Visit * Reason Comments Vomiting Palpitations * Auth/Cert (Routine) Specialty Diagnoses / Procedures Referred By Contac t Referred To Contact EMERGENCY MEDICINE Diagnoses Intractable nausea and vomiting Gitelman syndrome Hypokalemia Hyponatremia Hypercalcemia BARBARA (acute kidney injury) (H) Headache, unspecified headache type Prolonged Q-T interval on ECG [facility] Emergency Dept [address] [place] [address] Phone: tel:[phone] fax: Referral ID Status Reason Start Date Expiration Date Visits Re quested Visits Authorized [id number] 1 1 Encounter Details Date Type Department Care Team (Late st Contact Info) Description 07/01/2024 2:04 PM ASSISTIVE TECHNOLOGY SPECIALIST - 07/03/2024 1:06 PM ASSISTIVE TECHNOLOGY SPECIALIST Hospital Encounter [facility] 3 Medical Surgical [address] [place] [address] Jesus Bobby MD [facility] [address] [place], [place] [address] Nain Locke, DO [address] [place], [place] [address] Intractable nausea and vomiting; Gitelman syndrome; Hypokalemia; [...] on file Legal Sex Female 4:48 AM ASSISTIVE TECHNOLOGY SPECIALIST Gender Identity Not on file Sexual Orientation Not on file 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 Not on file Not on file documented as of this encounter Last Filed Vital Signs Vital Sign Reading Time Taken Comments Blood Pressure 123/71 07/03/2024 9:07 AM ASSISTIVE TECHNOLOGY SPECIALIST Pulse 87 07/03/2024 9:07 AM ASSISTIVE TECHNOLOGY SPECIALIST Temperature 36.7 C (98 F) 07/03/2024 9:07 AM ASSISTIVE TECHNOLOGY SPECIALIST Respiratory Rate 16 07/03/2024 9:07 AM ASSISTIVE TECHNOLOGY SPECIALIST Oxygen Saturation 99% 07/03/2024 9:07 AM ASSISTIVE TECHNOLOGY SPECIALIST Inhaled Oxygen Concentration - - Weight 49 kg (108 lb) 07/02/2024 5:51 PM ASSISTIVE TECHNOLOGY SPECIALIST Height 170.2 cm (5' 7) 07/01/2024 11:26 AM ASSISTIVE TECHNOLOGY SPECIALIST Body Mass Index 16.92 07/01/2024 11:26 AM ASSISTIVE TECHNOLOGY SPECIALIST documented in this encounter Discharge Summaries * Michel Dotson DO - 07/03/2024 1:06 PM CST Hospitalist Discharge Summary [facility] Lorraine Klein Date of : 1990 Age: [...] proteinuria - FeNa = 0.6 - Resume RN PEDIATRIC ICU potassium replacement QID - Potassium q6h for [...] discharge was: 34 Minutes Michel Dotson DO [facility] [place] [address] 07/03/2024 STIVE TECHNOLOGY SPECIALIST documented in this encounter Medications at Time [...] of this encounter Progress Notes * Michel Dotsno DO - 07/03/2024 12:58 PM CST [facility] Hospitalist Progress Note Name: Lorraine Klein Provider: [...] proteinuria - FeNa = 0.6 - Resume RN PEDIATRIC ICU potassium replacement QID - Potassium q6h for [...] Q8H Nain Locke DO 3 mL at [id number] Data Laboratory: Recent Labs Lab 07/03/24 0558 [...] the past 24 hours). Michel Dotson DO [facility] Hospitalist Leonor Law [facility]. [place] [phone] Securely message with [employer] ([facility] info) Text page via [facility] Paging/Directory 07/03/2024 STIVE TECHNOLOGY SPECIALIST * Mike Teran MD - 07/03/2024 12:36 [...] from previous admission and from her outpatient aircraft painter apprentice, Dr. Benavides. I discussed the case with [...] Intake/Output Summary (Last 24 hours) at 07/03/2024 1238 Last data filed at 07/03/2024 0349 Gross [...] medications, labs and imaging. 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 STIVE TECHNOLOGY SPECIALIST STIVE TECHNOLOGY SPECIALIST * Michel Dotson DO - 07/02/2024 12:09 PM CST [facility] Hospitalist Progress Note Name: Lorraine Klein Provider: [...] proteinuria - FeNa = 0.6 - Resume RN PEDIATRIC ICU potassium replacement QID - Potassium q6h for [...] Q8H RachealNain elizabeth DO 3 mL at [id number] Data Laboratory: Recent Labs Lab 07/02/24 0830 [...] inferior pubic ramus fracture. Michel Dotson DO [facility] [place] [address] Securely message with [employer]) Text page via [facility] Paging/Directory 07/02/2024 STIVE TECHNOLOGY SPECIALIST STIVE TECHNOLOGY SPECIALIST documented in this encounter H&P Notes * Rachealclara NainDO - 07/01/2024 4:07 PM CST [facility] History and Physical - Hospitalist Service Date of Admission: 07/01/2024 Assessment & Plan Lorraine Klein is a [...] of nephrology. On mag and potassium supplementation RN PEDIATRIC ICU. -Resume RN PEDIATRIC ICU potassium 40 meq TID -Given her CKD and RN PEDIATRIC ICU scheduled potassium supplement ordered, I will NOT order the potassium replacement protocol. Potassium replacement should be dosed by day provider. Monitor closely for hyperkalemia. -Hold RN PEDIATRIC ICU mag for now given hypermagnesemia -MIVF BARBARA [...] 2-4 Days Nain Locke DO Hospitalist Service [facility] Securely message with [employer] (more info) Text page via [facility] Paging/Directory Chief Complaint Nausea, vomiting, abdominal pain [...] previous visit (from the past 24 hours). STIVE TECHNOLOGY SPECIALIST STIVE TECHNOLOGY SPECIALIST documented in this encounter Consult Notes * [...] Communication Assessment Patient's communication style: spoken language (Malawian or Bilingual) Hearing Difficulty or Deaf: no [...] No Depression: At risk (10/22/2023) Received from [facility] PHQ-2 PHQ-2 TOTAL SCORE: 3 Housing Stability: Low Risk (07/02/2024) Housing Stability Do you have housing? : Yes Are you worried about losing your housing?: No Recent Concern: Housing Stability - High Risk (05/29/2024) Housing Stability Do you have housing? : No Are you worried about losing your housing?: No Tobacco Use: Low Risk (06/30/2024) Received from [facility] Patient History Smoking Tobacco Use: Never Smokeless Tobacco Use: Never Passive Exposure: Never Financial Resource Strain: Low Risk (07/02/2024) Financial Resource Strain Within the past 12 months, have you or your family members you live with been unable to get utilities (heat, electricity) when it was really needed?: No Alcohol Use: Not At Risk (04/07/2021) Received from [facility] Frequency of Alcohol Consumption: Never [...] Activity: Sufficiently Active (04/07/2021) [facility] Exercise Vital Sign Days of Exercise per [...] Stress Concern Present (04/07/2021) Received from [facility] [employer] of Occupational Health - Occupational Stress Questionnaire Feeling of Stress : Only a little Social Connections: Socially Integrated (02/29/2024) [facility] Social Connections Do you often feel lonely or isolated from those around you?: 0 Health Literacy: Not on file Functional Status: Prior to admission patient needed assistance: Dependent ADLs:: Independent, Ambulation-walker Dependent IADLs:: Independent Assesssment of Functional Status: Not at functional baseline Mental Health Status: Chemical Dependency Status: Values/Beliefs: Spiritual, Cultural Beliefs, Yarsani Practices, Values that affect care: Discussed ???Partnership [...] Jane RN, BSN, CM Inpatient Care Coordination [facility] [phone] STIVE TECHNOLOGY SPECIALIST * Eli Kinsey MD - 07/03/2024 11:00 [...] her out of the hospital. 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 Medications: Current Facility-Administered Medications Medication Dose [...] Q8H Nain Locke DO 3 mL at [id number] Allergies: Allergies Allergen Reactions Iron Sucrose Anxiety [...] Rate 88 BPM Atrial Rate 88 BPM PA Interval 136 ms QRS Duration 90 ms QT 536 ms QTc 648 ms P [place] 70 degrees R AXIS 84 degrees T [place] 78 degrees Interpretation ECG Sinus rhythm Left ventricular hypertrophy with repolarization abnormality ( Sokolow-Hernandez ) Marked ST abnormality, possible anterior subendocardial injury Prolonged QT Abnormal ECG When compared with ECG of 18-Jun-2024 11:14, Significant changes have occurred Unconfirmed report - interpretation of this ECG is computer generated - see medical record for final interpretation Confirmed by - EMERGENCY ROOM, PHYSICIAN ([id number]), multimedia editor NETTIE KIM ([id number]) on 07/01/2024 12:28:51PM Basic metabolic panel (BMP) [...] PM Result Value Ref Range Hold Specimen [facility] Magnesium Collection Time: 07/01/24 2:14 PM [...] Negative Ketones Urine Negative Negative mg/dL Specific [place] Urine 1.016 1.003 - 1.035 Blood Urine [...] bed, fair eye contact. Initially hesitant with writer technical publications but opened up after a time. Speech [...] is important. Eli Kinsey MD Consult/Liaison Psychiatry [facility] Contact information available via [facility] Paging/Directory If I am not available, then [facility] line ([phone]) should know who is covering our consult service. Medical Decision Making 120 MINUTES SPENT BY ME on the date of service doing chart review, history, exam, documentation & further activities per the note. STIVE TECHNOLOGY SPECIALIST * Mike Teran MD - 07/02/2024 3:42 [...] reviewed her records and notes from her aircraft painter apprentice, Dr. Benavides. She has recurrent and severe [...] Q8H Nain Locke DO 3 mL at [id number] ALLERGIES: Allergies as of 07/01/2024 - Reviewed [...] Activity: Sufficiently Active (04/07/2021) [facility] Exercise Vital Sign Days of Exercise per Week: 6 days Minutes of Exercise per Session: 90 min Stress: No Stress Concern Present (04/07/2021) Received from [facility] [employer]ational Health - Occupational Stress Questionnaire Feeling of Stress : Only a little Social Connections: Socially Integrated (02/29/2024) Received from [facility] Social Connections Do you often feel lonely [...] from previous admission and from her outpatient aircraft painter apprentice, Dr. Benavides. I discussed the case with Dr. Dotson. Mike Teran MD [facility] Consultants - Nephrology Office Pager: [phone] STIVE TECHNOLOGY SPECIALIST STIVE TECHNOLOGY SPECIALIST STIVE TECHNOLOGY SPECIALIST STIVE TECHNOLOGY SPECIALIST * Jackie Villareal PA-C - 07/02/2024 8:00 AM CSTAssociated Order(s): ORTHOPEDIC SURGERY IP CONSULT [facility] Orthopedic Consultation Lorraine Klein Age: [age] year [...] on patient's preference. Follow up Outpatient with [facility], non-operative provider or sports medicine- You may call [phone] or [phone] to schedule an appointment. Please contact orthopedic [...] Q8H Nain Locke DO 3 mL at [id number] sodium chloride (PF) 0.9% PF flush 3 [...] hCG Serum Qualitative Negative Negative Extra Tube ([place] Draw) Status: None Narrative The following orders were created for panel order Extra Tube ([place] Draw). Procedure Abnormality Status --------- ------ Extra Blue Top Tube[[id number]] Final result Please view results for these tests on the individual orders. Influenza A/B, RSV and SARS-CoV2 PCR (COVID-19) Nasopharyngeal Status: Normal Specimen: Nasopharyngeal; Swab Result Value Ref Range Influenza A PCR Negative Negative Influenza B PCR Negative Negative RSV PCR Negative Negative SARS CoV2 PCR Negative Negative Narrative Testing was performed using the Xpert Xpress CoV2/Flu/RSV Assay on the lifeIOpert Instrument. This test should be ordered for [...] management. This test was validated by the [facility] miiCard. These laboratories are certified under the Clinical [...] None Result Value Ref Range Hold Specimen [facility] Magnesium Status: Abnormal Result Value Ref [...] differs from PTH assays used in other [facility] laboratories. Vitamin D Deficiency Status: Normal Result Value Ref Range Vitamin D, Total (25-Hydroxy) 20 20 - 50 ng/mL Narrative Season, race, dietary intake, and treatment affect the concentration of 77-dcwzarx-Wuqmzdz D. Values may decrease during winter months [...] Negative Ketones Urine Negative Negative mg/dL Specific [place] Urine 1.016 1.003 - 1.035 Blood Urine [...] Rate 88 BPM Atrial Rate 88 BPM PA Interval 136 ms QRS Duration 90 ms QT 536 ms QTc 648 ms P [place] 70 degrees R AXIS 84 degrees T [place] 78 degrees Interpretation ECG Sinus rhythm Left ventricular hypertrophy with repolarization abnormality ( Sokolow-Hernandez ) Marked ST abnormality, possible anterior subendocardial injury Prolonged QT Abnormal ECG When compared with ECG of 18-Jun-2024 11:14, Significant changes have occurred Unconfirmed report - interpretation of this ECG is computer generated - see medical record for final interpretation Confirmed by - EMERGENCY ROOM, PHYSICIAN ([id number]), multimedia editor NETTIE KIM ([id number]) on 07/01/2024 12:28:51PM CBC + differential Status: Abnormal Narrative The following orders were created for panel order CBC + differential. Procedure Abnormality Status --------- ------ CBC with platelets and d...[[id number]] Abnormal Final result Please view results for these tests on the individual orders. Fractional excretion of sodium Status: None Narrative The following orders were created for panel order Fractional excretion of sodium. Procedure Abnormality Status --------- ------ Fractional Excretion of ...[[id number]] Final result Please view results for these tests on the individual orders. Attestation: I have reviewed today's vital signs, notes, medications, labs and imaging with Dr. Ferrara. Amount of time performed on this consult: 50 minutes. Jackie Villareal PA-C [facility] Cosigned by Onel Ferrara MD at 07/02/2024 2:38 PM ASSISTIVE TECHNOLOGY SPECIALIST STIVE TECHNOLOGY SPECIALIST STIVE TECHNOLOGY SPECIALIST Associated attestation - Onel Ferrara MD - 07/02/2024 2:38 PM ASSISTIVE TECHNOLOGY SPECIALIST Physician Attestation I agree with the information in this note. Onel Ferrara MD documented in this encounter ED Notes * Kortney Landers RN - 07/01/2024 4:45 PM CST Bed: ED19 Expected date: Expected time: Means of arrival: Comments: ED12 STIVE TECHNOLOGY SPECIALIST * Jody Cole RN - 07/01/2024 4:17 PM CST [facility] ED Nurse Handoff Report ED Chief complaint: [...] standby. Lift room needed: No. Bariatric: No Cow Washer Needed: No Isolation: No. Infection: Not Applicable. [...] Nurse Name: Jody Cole RN 4:17 PM STIVE TECHNOLOGY SPECIALIST * Rosmery Watson RN - 07/01/2024 3:15 PM CST Bed: ED11 Expected date: Expected time: Means of arrival: Comments: triage STIVE TECHNOLOGY SPECIALIST * Jesus Bobby MD - 07/01/2024 2:22 [...] Pressure Ventricular Rate 88 Atrial Rate 88 PA Interval 136 QRS Duration 90 QT 536 QTc 648 P [place] 70 R AXIS 84 T [place] 78 Interpretation ECG Sinus rhythm Left ventricular hypertrophy with repolarization abnormality ( Sokolow-Hernandez ) Marked ST abnormality, possible anterior subendocardial injury Prolonged QT Abnormal ECG When compared with ECG of 18-Jun-2024 11:14, Significant changes have occurred Unconfirmed report - interpretation of this ECG is computer generated - see medical record for final interpretation Confirmed by - EMERGENCY ROOM, PHYSICIAN ([id number]), multimedia editor NETTIE KIM ([id number]) on 07/01/2024 12:28:51PM [...] Documentation None Medical Decision Making / Diagnosis [facility] Diagnoses: None MIPS None MDM Lorraine [...] statements to me. Jesus Bobby MD 07/01/242107 STIVE TECHNOLOGY SPECIALIST * Laura Feng RN - 07/01/2024 11:29 AM CST Images from the original note were not included. Pt presents with multiple symptoms. Pt reports vomiting X2 days, chest palpitations, headache, lightheadedness, dizziness, muscle tremors. HX: Low potassium. Followed by aircraft painter apprentice. Triage Assessment (Adult) Row Name 07/01/24 1127 Triage Assessment Airway WDL WDL Respiratory WDL Respiratory WDL WDL Cardiac WDL Cardiac WDL X Palpitations Peripheral/Neurovascular WDL Peripheral Neurovascular WDL WDL Cognitive/Neuro/Behavioral WDL Cognitive/Neuro/Behavioral WDL WDL STIVE TECHNOLOGY SPECIALIST documented in this encounter Miscellaneous Notes * Plan of Care - Wayne Barr RN - 07/03/2024 4:36 AM CST Shift Note [id number]: Pt AxO x4. Pt stated pain as [...] Documentation Taken 07/03/2024405 by Wayne Barr RN Safety Promotion/Fall Prevention: assistive device/personal [...] Electrolyte Imbalance Goal: Electrolyte Balance Outcome: Progressing STIVE TECHNOLOGY SPECIALIST * Care Plan - Linda Puente RN - 07/02/2024 5:34 PM CST [facility] ED Boarding Nurse Handoff Addendum Report: Date/time: [...] - update provided by isha Puente RN STIVE TECHNOLOGY SPECIALIST STIVE TECHNOLOGY SPECIALIST STIVE TECHNOLOGY SPECIALIST STIVE TECHNOLOGY SPECIALIST STIVE TECHNOLOGY SPECIALIST STIVE TECHNOLOGY SPECIALIST STIVE TECHNOLOGY SPECIALIST * Care Plan - Linda Puente RN - 07/02/2024 11:04 AM CST Hospitalist Michel Dotson paged for K level of 2.4 this AM. New orders obtained, see MAR. Redraw Q6 hrs. STIVE TECHNOLOGY SPECIALIST * Plan of Care - Teressa Cole RN - 07/01/2024 9:47 PM CST [facility] ED Boarding Nurse Handoff Addendum Report: Date/time: [...] ED Boarding Nurse name: Teressa Cole RN STIVE TECHNOLOGY SPECIALIST * Plan of Care - Vera Reynolds RN - 07/01/2024 6:46 PM CST Pt A&O. Pain managed with IV dilaudid. NS infusing. Tolerating clears, denies N/V. Transfers with Ax1. AUO. STIVE TECHNOLOGY SPECIALIST * Pharmacy-Admission Medication History - Cale Giron RPH - 07/01/2024 5:36 PM CST Pharmacist Admission Medication History Admission medication history is complete. The information provided in this note is only as accurateas the sources available at the time of the update. Information Source(s): Patient via in-person Pertinent Information: home meds last taken - 2 days ago Changes made to RN PEDIATRIC ICU medication list: Added: None Deleted: None Changed: Multivitamin to include Iron Allergies reviewed with patient and updates made in EHR: no Medication History Completed By: Cale Giron RPH 07/01/2024 5:36 PM RN PEDIATRIC ICU Med List Medication Sig Last Dose/Taking albuterol [...] needed for severe pain. Taking As Needed STIVE TECHNOLOGY SPECIALIST documented in this encounter Plan of Treatment Upcoming Encounters Date Type Department Care Team (Late st Contact Info) Description 07/09/2024 11:00 AM ASSISTIVE TECHNOLOGY SPECIALIST Virtual Visit [facility] [address] [address] [place] [address] [place], [place] [id number] [place] [address] [place], [place] [address] documented as of this encounter Procedures Procedure Name Priority Date/Time Associated Diagnosis Comments POTASSIUM Timed 07/03/2024 5:58 AM ASSISTIVE TECHNOLOGY SPECIALIST MAGNESIUM Routine 07/03/2024 5:58 AM ASSISTIVE TECHNOLOGY SPECIALIST IRON AND IRON BINDING CAPACITY Routine 07/03/2024 5:58 AM ASSISTIVE TECHNOLOGY SPECIALIST FERRITIN Routine 07/03/2024 5:58 AM ASSISTIVE TECHNOLOGY SPECIALIST BASIC METABOLIC PANEL Routine 07/03/2024 5:58 AM ASSISTIVE TECHNOLOGY SPECIALIST CBC WITH PLATELETS Routine 07/03/2024 5: 58 AM ASSISTIVE TECHNOLOGY SPECIALIST POTASSIUM Timed 07/02/2024 11:55 PM ASSISTIVE TECHNOLOGY SPECIALIST POTASSIUM STAT 07/02/2024 5:36 PM ASSISTIVE TECHNOLOGY SPECIALIST POTASSIUM STAT 07/02/2024 12:13 PM ASSISTIVE TECHNOLOGY SPECIALIST BICARBONATE URINE Add-On 07/02/2024 9:5 3 AM ASSISTIVE TECHNOLOGY SPECIALIST OSMOLALITY Add-On 07/02/2024 8:30 AM ASSISTIVE TECHNOLOGY SPECIALIST MAGNESIUM STAT 07/02/2024 8:30 AM ASSISTIVE TECHNOLOGY SPECIALIST BASIC METABOLIC PANEL STAT 07/02/2024 8:30 AM ASSISTIVE TECHNOLOGY SPECIALIST CBC WITH PLATELETS STAT 07/02/2024 8: 30 AM ASSISTIVE TECHNOLOGY SPECIALIST MAGNESIUM Add-On 07/01/2024 11:34 PM ASSISTIVE TECHNOLOGY SPECIALIST BASIC METABOLIC PANEL STAT 07/01/2024 11:[address]CHNOLOGY SPECIALIST [address] ABDOMEN PELVIS W/O CONTRAST STAT 07/01/2024 9:17 PM ASSISTIVE TECHNOLOGY SPECIALIST FRACTIONAL EXCRETION OF SODIUM STAT 07/01/2024 9:07 PM ASSISTIVE TECHNOLOGY SPECIALIST ROUTINE UA WITH MICROSCOPIC REFLEX TO CULTURE STAT 07/01/2024 9:07 PM ASSISTIVE TECHNOLOGY SPECIALIST POTASSIUM RANDOM URINE Add-On 07/01/2024 9:07 PM ASSISTIVE TECHNOLOGY SPECIALIST OSMOLALITY, RANDOM URINE Add-On 07/01/2024 9:07 PM ASSISTIVE TECHNOLOGY SPECIALIST FRACTIONAL EXCRETION OF SODIUM STAT 07/01/2024 9:07 PM ASSISTIVE TECHNOLOGY SPECIALIST CHLORIDE RANDOM URINE STAT 07/01/2024 9:07 PM ASSISTIVE TECHNOLOGY SPECIALIST PTH RELATED PEPTIDE TEST STAT 07/01/2024 7:18 PM ASSISTIVE TECHNOLOGY SPECIALIST PHOSPHORUS Add-On 07/01/2024 7:18 PM ASSISTIVE TECHNOLOGY SPECIALIST PARATHYROID HORMONE INTACT STAT 07/01/2024 7:18 PM ASSISTIVE TECHNOLOGY SPECIALIST BASIC METABOLIC PANEL STAT 07/01/2024 7:18 PM ASSISTIVE TECHNOLOGY SPECIALIST IONIZED CALCIUM STAT 07/01/2024 3:35 PM ASSISTIVE TECHNOLOGY SPECIALIST EXTRA TUBE STAT 07/01/2024 2:14 PM ASSISTIVE TECHNOLOGY SPECIALIST EXTRA BLUE TOP TUBE STAT 07/01/2024 2 :14 PM ASSISTIVE TECHNOLOGY SPECIALIST CBC WITH PLATELETS AND DIFFERENTIAL STAT 07/01/2024 2:14 PM ASSISTIVE TECHNOLOGY SPECIALIST TROPONIN T, HIGH SENSITIVITY STAT 07/01/2024 2:14 PM ASSISTIVE TECHNOLOGY SPECIALIST CBC WITH PLATELETS & DIFFERENTIAL STAT 07/01/2024 2:14 PM ASSISTIVE TECHNOLOGY SPECIALIST VITAMIN D DEFICIENCY SCREENING Add-On 07/01/2024 2:14 PM ASSISTIVE TECHNOLOGY SPECIALIST MAGNESIUM STAT 07/01/2024 2:14 PM ASSISTIVE TECHNOLOGY SPECIALIST LIPASE STAT 07/01/2024 2:14 PM ASSISTIVE TECHNOLOGY SPECIALIST HEPATIC FUNCTION PANEL STAT 07/01/2024 2:14 PM ASSISTIVE TECHNOLOGY SPECIALIST HCG QUALITATIVE STAT 07/01/2024 2:14 PM ASSISTIVE TECHNOLOGY SPECIALIST BASIC METABOLIC PANEL STAT 07/01/2024 2:14 PM ASSISTIVE TECHNOLOGY SPECIALIST EKG 12-LEAD, TRACING ONLY STAT 07/01/2024 11:37 AM ASSISTIVE TECHNOLOGY SPECIALIST INFLUENZA A/B, RSV AND SARS-COV2 PCR STAT 07/01/2024 11:32 AM ASSISTIVE TECHNOLOGY SPECIALIST documented in this encounter Results * Magnesium (07/03/2024 5:58 AM ASSISTIVE TECHNOLOGY SPECIALIST) Magnesium 1.8 1.7 - 2.3 mg/dL 07/03/2024 6:51 AM ASSISTIVE TECHNOLOGY SPECIALIST LABORATORY Blood STRUCTURE OF RIGHT HAND / Unknown Venipuncture / Unknown 07/03/2024 5:58 AM ASSISTIVE TECHNOLOGY SPECIALIST 07/03/2024 6:16 AM ASSISTIVE TECHNOLOGY SPECIALIST us Michel Dotson DO LAB - BLOOD ORDERABLES Fi nal Result [facility] Acute Care Lab [address] (1st floor, no room number) [place] [address], [facility] * Ferritin (07/03/2024 5:58 AM ASSISTIVE TECHNOLOGY SPECIALIST) Ferritin 28 6 - 175 ng/mL 07/03/2024 11:52 AM ASSISTIVE TECHNOLOGY SPECIALIST U LABORATORY Blood STRUCTURE OF RIGHT HAND / Unknown Venipuncture / Unknown 07/03/2024 5:58 AM ASSISTIVE TECHNOLOGY SPECIALIST 07/03/2024 7:43 AM ASSISTIVE TECHNOLOGY SPECIALIST us Mike Teran MD LAB - BLOOD ORDERABLES Final Result [facility] [address] [place] [address], [facility] * Iron and iron binding capacity (07/03/2024 5:58 AM [facility]) Pathologist [facility] Iron 67 37 - 145 ug/dL 07/03/2024 6:51 AM [facility] Iron Binding Capacity 284 240 - 430 ug/dL 07/03/2024 6:51 AM [facility] Iron Sat Index 24 15 - 46 % 07/03/2024 6:51 AM [facility] Blood STRUCTURE OF RIGHT HAND / Unknown Venipuncture / Unknown 07/03/2024 5:58 AM ASSISTIVE TECHNOLOGY SPECIALIST 07/03/2024 6:16 AM [facility] us Mike Teran MD LAB - BLOOD ORDERABLES Final Result LABORATORY [facility] Lab [address] [facility] Lab (1st floor, no room number) [place] [address] * (ABNORMAL) Basic metabolic panel (07/03/2024 5:58 AM [facility]) Pathologist [facility] Sodium 142 135 - 145 mmol/L 07/03/2024 6:55 AM [facility] Potassium 3.4 3.4 - 5.3 mmol/L 07/03/2024 6:55 AM [facility] Chloride 100 98 - 107 mmol/L 07/03/2024 6:55 AM [facility] Carbon Dioxide (CO2) 31(H) 22 - 29 mmol/L 07/03/2024 6:55 AM [facility] Anion Gap 11 7 - 15 mmol/L 07/03/2024 6:55 AM [facility] Urea Nitrogen 28.4(H) 6.0 - 20.0 mg/dL 07/03/2024 6:55 AM [facility] Creatinine 1.53(H) 0.51 - 0.95 mg/dL 07/03/2024 6:55 AM [facility] GFR Estimate 46(L) >60 mL/min/1.7 3m2 07/03/2024 6:55 AM [facility] Comment:eGFR calculated usin 2020 CKD-EPI equation. Calcium 9.1 8.8 - 10.4 mg/dL 07/03/2024 6:55 AM [facility] Comment:Reference intervals for this test were updated on 01/08/2024 to reflect our healthy population more accurately. There may be differences in the flagging of prior results with similar values performed with this method. Those prior results can be interpreted in the context of the updated reference intervals. Glucose 91 70 - 99 mg/dL 07/03/2024 6:55 AM ASSISTIVE TECHNOLOGY SPECIALIST [facility]AT[facility] Blood STRUCTURE OF RIGHT HAND / Unknown Venipuncture / Unknown 07/03/2024 5:58 AM ASSISTIVE TECHNOLOGY SPECIALIST 07/03/2024 6:16 AM ASSISTIVE TECHNOLOGY SPECIALIST us Michel Dotson DO LAB - BLOOD ORDERABLES Fi nal Result [facility] LABORATORY [facility] [address] [facility] (1st floor, no room number) [place] [address] * (ABNORMAL) CBC with platelets (07/03/2024 5:58 AM ASSISTIVE TECHNOLOGY SPECIALIST) WBC Count 6.8 4.0 - 11.0 10e3/uL 07/03/2024 6:22 AM ASSISTIVE TECHNOLOGY SPECIALIST [facility] RBC Count 2.70(L) 3.80 - 5.20 10e6/uL 07/03/2024 6:22 AM ASSISTIVE TECHNOLOGY SPECIALIST [facility] Hemoglobin 7.3(L) 11.7 - 15.7 g/dL 07/03/2024 6:22 AM ASSISTIVE TECHNOLOGY SPECIALIST [facility] Hematocrit 22.0(L) 35.0 - 47.0 % 07/03/2024 6:22 AM ASSISTIVE TECHNOLOGY SPECIALIST [facility] MCV 82 78 - 100 fL 07/03/2024 6:22 AM ASSISTIVE TECHNOLOGY SPECIALIST [facility] MCH 27.0 26.5 - 33.0 pg 07/03/2024 6:22 AM ASSISTIVE TECHNOLOGY SPECIALIST [facility] MCHC 33.2 31.5 - 36.5 g/dL 07/03/2024 6:22 AM ASSISTIVE TECHNOLOGY SPECIALIST [facility] RDW 15.0 10.0 - 15.0 % 07/03/2024 6:22 AM ASSISTIVE TECHNOLOGY SPECIALIST [facility] Platelet Count 282 150 - 450 10e3/uL 07/03/2024 6:22 AM ASSISTIVE TECHNOLOGY SPECIALIST [facility] Blood STRUCTURE OF RIGHT HAND / Unknown Venipuncture / Unknown 07/03/2024 5:58 AM ASSISTIVE TECHNOLOGY SPECIALIST 07/03/2024 6:16 AM ASSISTIVE TECHNOLOGY SPECIALIST Michel Dotson DO LAB - BLOOD ORDERABLES Fi nal Result [facility] [address] Lab (1st floor, no room number) [place] [phone] [place] [address] * Potassium (07/03/2024 5:58 AM ASSISTIVE TECHNOLOGY SPECIALIST) Potassium 3.4 3.4 - 5.3 mmol/L 07/03/2024 6:51 AM ASSISTIVE TECHNOLOGY SPECIALIST [facility]AT[facility] Blood STRUCTURE OF RIGHT HAND / Unknown Venipuncture / Unknown 07/03/2024 5:58 AM ASSISTIVE TECHNOLOGY SPECIALIST 07/03/2024 6:16 AM ASSISTIVE TECHNOLOGY SPECIALIST Michel Dotson DO LAB - BLOOD ORDERABLES Fi nal Result Performing Organization Address [facility]/ZIP Co de Phone Number [facility] [address] Lab (1st floor, no room number) [place] [phone] [place] [address] * (ABNORMAL) Potassium (07/02/2024 11:55 PM ASSISTIVE TECHNOLOGY SPECIALIST) Potassium 3.1(L) 3.4 - 5.3 mmol/L 07/03/2024 12:37 AM ASSISTIVE TECHNOLOGY SPECIALIST LABORATORY Blood STRUCTURE OF RIGHT HAND / Unknown Venipuncture / Unknown 07/02/2024 11:55 PM ASSISTIVE TECHNOLOGY SPECIALIST 07/03/2024 12:18 AM ASSISTIVE TECHNOLOGY SPECIALIST Michel Dotson DO LAB - BLOOD ORDERABLES Fi nal Result [facility] [address] Lab (1st floor, no room number) [address] * (ABNORMAL) Potassium (07/02/2024 5:36 PM ASSISTIVE TECHNOLOGY SPECIALIST) Potassium 3.3(L) 3.4 - 5.3 mmol/L 07/02/2024 6:01 PM ASSISTIVE TECHNOLOGY SPECIALIST [facility] LABORAT[facility] Blood STRUCTURE OF RIGHT UPPER LIMB / Unknown Venipuncture / Unknown 07/02/2024 5:36 PM ASSISTIVE TECHNOLOGY SPECIALIST 07/02/2024 5:42 PM ASSISTIVE TECHNOLOGY SPECIALIST Michel Szymanski Mauri LAB - BLOOD ORDERABLES Fi nal Result LABORATORY [facility] [address] Lab (1st floor, no room number) [place] [phone] [place] [address] * (ABNORMAL) Potassium (07/02/2024 12:13 PM ASSISTIVE TECHNOLOGY SPECIALIST) Potassium 2.9(L) 3.4 - 5.3 mmol/L 07/02/2024 1:03 PM ASSISTIVE TECHNOLOGY SPECIALIST LABORATORY Blood STRUCTURE OF RIGHT UPPER LIMB / Unknown Venipuncture / Unknown 07/02/2024 12:13 PM ASSISTIVE TECHNOLOGY SPECIALIST 07/02/2024 12:26 PM ASSISTIVE TECHNOLOGY SPECIALIST Result [facility] Michel Stephon Mauri TATE LAB - BLOOD ORDERABLES Fi nal Result LABORATORY [facility] [address] [employer] Lab (1st floor, no room number) [address] * Bicarbonate urine (07/02/2024 9:53 AM ASSISTIVE TECHNOLOGY SPECIALIST) Bicarbonate Urine 11 mmol/L 07/03/2024 3:18 AM ASSISTIVE TECHNOLOGY SPECIALIST [facility] Comment: INTERPRETIVE INFORMATION: Bicarbonate (HCO3), Urine Reference Interval has not been defined for Bicarbonate, Urine. See Compliance Statement B: [email or web address] Performed At: [facility] ([facility]) [facility] [place] [address] Computer Security Manager: DO ESTEFANY IVEY Number: [id number] Urine MID-STREAM URINE SPECIMEN / Unknown Non-blood Collection / Unknown 07/02/2024 9:53 AM ASSISTIVE TECHNOLOGY SPECIALIST 07/02/2024 9:56 AM ASSISTIVE TECHNOLOGY SPECIALIST Mike Teran MD LAB - URINE ORDERABLES Final Result [facility] [address] [place] [address], [facility] [phone] * (ABNORMAL) Osmolality (07/02/2024 8:30 AM ASSISTIVE TECHNOLOGY SPECIALIST) Osmolality Blood 299(H) 275 - 295 mmol/kg 07/02/2024 1:25 PM ASSISTIVE TECHNOLOGY SPECIALIST [facility] Blood STRUCTURE OF RIGHT HAND / Unknown Venipuncture / Unknown 07/02/2024 8:30 AM ASSISTIVE TECHNOLOGY SPECIALIST 07/02/2024 8:45 AM ASSISTIVE TECHNOLOGY SPECIALIST Narrative [facility] - 07/02/2024 1:25 PM ASSISTIVE TECHNOLOGY SPECIALIST Greater than 385 mmol/kg relates to stupor in hyperglycemia Greater than 400 mmol/kg can relate to seizures Greater than 420 mmol/kg can be lethal Serum Osmalar Gap: Normal <10 Larger suggest unmeasured substances present in serum (ethanol, methanol, isopropanol, mannitol, ethylene glycol). Mike Teran MD LAB - BLOOD ORDERABLES Final Result LABORATORY [facility] [address] [facility], [address] [place] [address], [facility] * Magnesium (07/02/2024 8:30 AM ASSISTIVE TECHNOLOGY SPECIALIST) Pathologist [facility] Magnesium 2.2 1.7 - 2.3 mg/dL 07/02/2024 9:25 AM ASSISTIVE TECHNOLOGY SPECIALIST LABORATORY Blood STRUCTURE OF RIGHT HAND / Unknown Venipuncture / Unknown 07/02/2024 8:30 AM ASSISTIVE TECHNOLOGY SPECIALIST 07/02/2024 8:45 AM ASSISTIVE TECHNOLOGY SPECIALIST Nain Locke DO LAB - BLOOD ORDERABLES Final R esult LABORATORY [facility] [address] Lab (1st floor, no room number) [place] [address], [facility] * (ABNORMAL) CBC with platelets (07/02/2024 8:30 AM ASSISTIVE TECHNOLOGY SPECIALIST) WBC Count 7.9 4.0 - 11.0 10e3/uL 07/02/2024 8:49 AM ASSISTIVE TECHNOLOGY SPECIALIST LABORATORY RBC Count 3.05(L) 3.80 - 5.20 10e6/uL 07/02/2024 8:49 AM ASSISTIVE TECHNOLOGY SPECIALIST LABORATORY Hemoglobin 8.3(L) 11.7 - 15.7 g/dL 07/02/2024 8:49 AM ASSISTIVE TECHNOLOGY SPECIALIST LABORATORY Hematocrit 24.5(L) 35.0 - 47.0 % 07/02/2024 8:49 AM ASSISTIVE TECHNOLOGY SPECIALIST LABORATORY MCV 80 78 - 100 fL 07/02/2024 8:49 AM ASSISTIVE TECHNOLOGY SPECIALIST LABORATORY MCH 27.2 26.5 - 33.0 pg 07/02/2024 8:49 AM ASSISTIVE TECHNOLOGY SPECIALIST LABORATORY MCHC 33.9 31.5 - 36.5 g/dL 07/02/2024 8:49 AM ASSISTIVE TECHNOLOGY SPECIALIST LABORATORY RDW 14.5 10.0 - 15.0 % 07/02/2024 8:49 AM ASSISTIVE TECHNOLOGY SPECIALIST LABORATORY Platelet Count 346 150 - 450 10e3/uL 07/02/2024 8:49 AM [facility] Blood STRUCTURE OF RIGHT HAND / Unknown Venipuncture / Unknown 07/02/2024 8:30 AM ASSISTIVE TECHNOLOGY SPECIALIST 07/02/2024 8:45 AM ASSISTIVE TECHNOLOGY SPECIALIST us Nain Locke DO LAB - BLOOD ORDERABLES Final R esult LABORATORY [facility] [address] [facility] Lab (1st floor, no room number) [place] [address] * (ABNORMAL) Basic metabolic panel (07/02/2024 8:30 AM ASSISTIVE TECHNOLOGY SPECIALIST) Sodium 136 135 - 145 mmol/L 07/02/2024 9:31 AM ASSISTIVE TECHNOLOGY SPECIALIST LABORATORY Potassium 2.4(LL) 3.4 - 5.3 mmol/L 07/02/2024 9:31 AM ASSISTIVE TECHNOLOGY SPECIALIST LABORATORY Chloride 86(L) 98 - 107 mmol/L 07/02/2024 9:31 AM [facility] Carbon Dioxide (CO2) 37(H) 22 - 29 mmol/L 07/02/2024 9:31 AM [facility] Anion Gap 13 7 - 15 mmol/L 07/02/2024 9:31 AM [facility] Urea Nitrogen 48.1(H) 6.0 - 20.0 mg/dL 07/02/2024 9:31 AM [facility] Creatinine 2.36(H) 0.51 - 0.95 mg/dL 07/02/2024 9:31 AM [facility] GFR Estimate 27(L) >60 mL/min/1.7 3m2 07/02/2024 9:31 AM [facility] Comment:eGFR calculated usny 2020 CKD-EPI equation. Calcium 10.7(H) 8.8 - 10.4 mg/dL 07/02/2024 9:31 AM [facility] Comment:Reference intervals for this test were updated on 01/08/2024 to reflect our healthy population more accurately. There may be differences in the flagging of prior results with similar values performed with this method. Those prior results can be interpreted in the context of the updated reference intervals. Glucose 84 70 - 99 mg/dL 07/02/2024 9:31 AM ASSISTIVE TECHNOLOGY SPECIALIST LABORATORY Blood STRUCTURE OF RIGHT HAND / Unknown Venipuncture / Unknown 07/02/2024 8:30 AM ASSISTIVE TECHNOLOGY SPECIALIST 07/02/2024 8:45 AM ASSISTIVE TECHNOLOGY SPECIALIST us Nain Locke DO LAB - BLOOD ORDERABLES Final R esult Performing Organization Address City/[facility] Co de Phone Number LABORATORY [facility] [address] Lab (1st floor, no room number) [place] [address] * (ABNORMAL) Magnesium (07/01/2024 11:34 PM ASSISTIVE TECHNOLOGY SPECIALIST) Magnesium 2.5(H) 1.7 - 2.3 mg/dL 07/02/2024 12:31 AM ASSISTIVE TECHNOLOGY SPECIALIST LABORATORY Blood STRUCTURE OF RIGHT HAND / Unknown Venipuncture / Unknown 07/01/2024 11:34 PM ASSISTIVE TECHNOLOGY SPECIALIST 07/01/2024 11:41 PM ASSISTIVE TECHNOLOGY SPECIALIST Rufina Cha MD LAB - BLOOD ORDERABLES Final Re sult Performing Organization Address City/State/[facility] Co de Phone Number [facility] LABORATORY [facility] [address] [facility] Lab (1st floor, no room number) [place] [address], [facility] * (ABNORMAL) Basic metabolic panel (07/01/2024 11:34 PM ASSISTIVE TECHNOLOGY SPECIALIST) Sodium 134(L) 135 - 145 mmol/L 07/02/2024 12:10 AM [facility] Potassium 2.5(LL) 3.4 - 5.3 mmol/L 07/02/2024 12:10 AM [facility] Chloride 80(L) 98 - 107 mmol/L 07/02/2024 12:10 AM [facility] Carbon Dioxide (CO2) 37(H) 22 - 29 mmol/L 07/02/2024 12:10 AM [facility] Anion Gap 17(H) 7 - 15 mmol/L 07/02/2024 12:10 AM [facility] Urea Nitrogen 52.7(H) 6.0 - 20.0 mg/dL 07/02/2024 12:10 AM [facility] Creatinine 3.12(H) 0.51 - 0.95 mg/dL 07/02/2024 12:10 AM [facility] GFR Estimate 19(L) >60 mL/min/1.7 3m2 07/02/2024 12:10 AM [facility] Comment:eGFR calculated usin g 2020 CKD-EPI equation. Calcium 11.6(H) 8.8 - 10.4 mg/dL 07/02/2024 12:10 AM [facility] Comment:Reference intervals for this test were updated on 01/08/2024 to reflect our healthy population more accurately. There may be differences in the flagging of prior results with similar values performed with this method. Those prior results can be interpreted in the context of the updated reference intervals. Glucose 102(H) 70 - 99 mg/dL 07/02/2024 12:10 AM [facility] Blood STRUCTURE OF RIGHT HAND / Unknown Venipuncture / Unknown 07/01/2024 11:34 PM ASSISTIVE TECHNOLOGY SPECIALIST 07/01/2024 11:41 PM ASSISTIVE TECHNOLOGY SPECIALIST Nain Locke DO LAB - BLOOD ORDERABLES Final R esult [facility] Acute Care Lab [address] [facility] Lab (1st floor, no room number) [place] [address], [facility] * CT Abdomen Pelvis w/o Contrast (07/01/2024 9:17 PM ASSISTIVE TECHNOLOGY SPECIALIST) Anatomical Region Laterality Modality Abdomen/Pelvis, SUBRAD CT LUDA DY, UMP CT ABDOMEN PELVIS, RAD CT Computed Tomography 07/01/2024 9:17 PM ASSISTIVE TECHNOLOGY SPECIALIST Impressions 07/01/2024 10:02 PM ASSISTIVE TECHNOLOGY SPECIALIST IMPRESSION: 1. No acute findings or inflammatory changes in the abdomen or pelvis. No bowel obstruction. 2. Subacute right inferior pubic ramus fracture. Narrative 07/01/2024 10:02 PM ASSISTIVE TECHNOLOGY SPECIALIST EXAM: CT ABDOMEN PELVIS W/O CONTRAST LOCATION: [...] Result * Osmolality urine (07/01/2024 9:07 PM ASSISTIVE TECHNOLOGY SPECIALIST) Osmolality Urine 311 100 - 1,200 mmol/kg 07/02/2024 11:01 AM ASSISTIVE TECHNOLOGY SPECIALIST [facility] Urine MID-STREAM URINE SPECIMEN / Unknown Non-blood Collection / Unknown 07/01/2024 9:07 PM ASSISTIVE TECHNOLOGY SPECIALIST 07/01/2024 9:11 PM ASSISTIVE TECHNOLOGY SPECIALIST Narrative [facility] - 07/02/2024 11:01 AM ASSISTIVE TECHNOLOGY SPECIALIST Reference Ranges depend on patient's hydration status and renal function. Neonates: 75-300 mmol/kg 2 years and older, random specimens: 100-1200 mmol/kg; Greater than 850 mmol/kg after 12 hour fluid restriction Urine/serum osmolality ratio: 2 years and older: 1.0-3.0; 3.0-4.7 after 12 hour fluid restriction Mike Teran MD LAB - URINE ORDERABLES Final Result Performing Organization Address [facility] Co de Phone Number LABORATORY [facility] Lab [address] [facility], [address] [phone] * Potassium random urine (07/01/2024 9:07 PM ASSISTIVE TECHNOLOGY SPECIALIST) Potassium Urine 43.8 mmol/L 11:52 AM ASSISTIVE TECHNOLOGY SPECIALIST [facility] Comment:The reference ranges have not been established in urine potassium. The results should be integrated into the clinical context for interpretation. Urine MID-STREAM URINE SPECIMEN / Unknown Non-blood Collection / Unknown 07/01/2024 9:07 PM ASSISTIVE TECHNOLOGY SPECIALIST 07/01/2024 9:11 PM ASSISTIVE TECHNOLOGY SPECIALIST Mike Teran MD LAB - URINE ORDERABLES Final Result Performing Organization Address [facility] Co de Phone Number U LABORATORY [facility] Lab [address] [facility], [address] [address] * Chloride random urine (07/01/2024 9:07 PM ASSISTIVE TECHNOLOGY SPECIALIST) Chloride Urine mmol/L <20 mmol/L 07/02/2024 11:34 AM ASSISTIVE TECHNOLOGY SPECIALIST [facility]AT[facility] Comment:The reference ranges have not been established in urine chloride. The results should be integrated into the clinical context for interpretation. Urine MID-STREAM URINE SPECIMEN / Unknown Non-blood Collection / Unknown 07/01/2024 9:07 PM ASSISTIVE TECHNOLOGY SPECIALIST 07/01/2024 9:11 PM ASSISTIVE TECHNOLOGY SPECIALIST us Mike Teran MD LAB - URINE ORDERABLES Final Result LABORATORY [facility] Lab [address] [facility], [address] [phone] * Fractional Excretion of Sodium (07/01/2024 9:07 PM ASSISTIVE TECHNOLOGY SPECIALIST) Creatinine Urine mg/dL 86.1 mg/dL 07/01/2024 9:36 PM ASSISTIVE TECHNOLOGY SPECIALIST LABORATORY Sodium Urine mmol/L 22 mmol/L 07/01/2024 9:36 PM ASSISTIVE TECHNOLOGY SPECIALIST LABORATORY %FENA 0.6 % 07/01/2024 9:36 PM ASSISTIVE TECHNOLOGY SPECIALIST LABORATORY Comment: Adult: <1 percent Indicates prerenal azotemia >3 percent Suggests acute tubular necrosis Neonates: <2.5 percent Suggest prerenal azotemia >2.5 percent Suggest acute tubular necrosis Urine MID-STREAM URINE SPECIMEN / Unknown Non-blood Collection / Unknown 07/01/2024 9:07 PM ASSISTIVE TECHNOLOGY SPECIALIST 07/01/2024 9:11 PM ASSISTIVE TECHNOLOGY SPECIALIST us Nain Locke DO LAB - URINE ORDERABLES Final R esult LABORATORY [facility] [address] Lab (1st floor, no room number) [place] [address], [place] * (ABNORMAL) UA with Microscopic reflex to Culture (07/01/2024 9:07 PM ASSISTIVE TECHNOLOGY SPECIALIST) Color Urine Straw Colorless, Straw, Light Yellow, Yellow 07/01/2024 9:19 PM ASSISTIVE TECHNOLOGY SPECIALIST LABORATORY Appearance Urine Clear Clear 07/01/19 9:19 PM ASSISTIVE TECHNOLOGY SPECIALIST LABORATORY Glucose Urine Negative Negative mg/dL 07/01/2024 9:19 PM ASSISTIVE TECHNOLOGY SPECIALIST LABORATORY Bilirubin Urine Negative Negative 9:19 PM ASSISTIVE TECHNOLOGY SPECIALIST LABORATORY Ketones Urine Negative Negative mg/dL 07/01/2024 9:19 PM ASSISTIVE TECHNOLOGY SPECIALIST LABORATORY Specific [place] Urine 1.016 1.003 - 1.035 07/01/2024 9:19 PM ASSISTIVE TECHNOLOGY SPECIALIST LABORATORY Blood Urine Negative Negative 07/01/2024 9:19 PM ASSISTIVE TECHNOLOGY SPECIALIST LABORATORY pH Urine 6.5 5.0 - 7.0 07/01/2024 9:19 PM ASSISTIVE TECHNOLOGY SPECIALIST LABORATORY Protein Albumin Urine 30(A) Negative mg/dL 07/01/2024 9:19 PM ASSISTIVE TECHNOLOGY SPECIALIST LABORATORY Urobilinogen Urine Normal Normal, 2.0 mg/dL 07/01/2024 9:19 PM ASSISTIVE TECHNOLOGY SPECIALIST LABORATORY Nitrite Urine Negative Negative 07/01/2024 9:19 PM ASSISTIVE TECHNOLOGY SPECIALIST LABORATORY Leukocyte Esterase Urine Negative Negative 07/01/2024 9:19 PM ASSISTIVE TECHNOLOGY SPECIALIST LABORATORY Mucus Urine Present(A) None Seen /LPF 07/01/2024 9:19 PM ASSISTIVE TECHNOLOGY SPECIALIST LABORATORY RBC Urine 1 <=2 /HPF 07/01/2024 9:19 PM ASSISTIVE TECHNOLOGY SPECIALIST LABORATORY WBC Urine 1 <=5 /HPF 07/01/2024 9:19 PM ASSISTIVE TECHNOLOGY SPECIALIST LABORATORY Squamous Epithelials Urine 1 <=1 /HPF 07/01/2024 9:19 PM ASSISTIVE TECHNOLOGY SPECIALIST LABORATORY Urine MID-STREAM URINE SPECIMEN / Unknown Non-blood Collection / Unknown 07/01/2024 9:07 PM ASSISTIVE TECHNOLOGY SPECIALIST 07/01/2024 9:11 PM ASSISTIVE TECHNOLOGY SPECIALIST Narrative [facility] LABORATORY - 07/01/2024 9:19 PM ASSISTIVE TECHNOLOGY SPECIALIST Urine Culture not indicated us Nain Locke DO LAB - URINE ORDERABLES Final R esult LABORATORY [facility] Lab [address] Lab (1st floor, no room number) [place] [address], [place] * Phosphorus (07/01/2024 7:18 PM ASSISTIVE TECHNOLOGY SPECIALIST) Pathologist [facility] Phosphorus 3.3 2.5 - 4.5 mg/dL 07/01/2024 9:41 PM ASSISTIVE TECHNOLOGY SPECIALIST LABORATORY Blood STRUCTURE OF RIGHT UPPER LIMB / Unknown Venipuncture / Unknown 07/01/2024 7:18 PM ASSISTIVE TECHNOLOGY SPECIALIST 07/01/2024 7:27 PM ASSISTIVE TECHNOLOGY SPECIALIST Nain Locke LAB - BLOOD ORDERABLES Final R esult LABORATORY [facility] Lab [address] [facility] Lab (1st floor, no room number) [place] [address] * PTH Related Peptide Test (07/01/2024 7:18 PM ASSISTIVE TECHNOLOGY SPECIALIST) [facility] Parathyroid Hormone-Related Peptide (PTHRP) 1.6 < or = 4.2 pmol/L 07/07/2024 2:55 PM ASSISTIVE TECHNOLOGY SPECIALIST [facility] Comment: ADDITIONAL INFORMATION This test was developed and its performance characteristics determined by [facility] in a manner consistent with CLIA requirements. This test has not been cleared or approved by the U.S. Food and Drug Administration. Test Performed by: [facility] [address] [place] [address] Second Rigger: Alvaro Renner Ph.D.; CLIA# [id number] Blood STRUCTURE OF RIGHT UPPER LIMB / Unknown Venipuncture / Unknown 07/01/2024 7:18 PM ASSISTIVE TECHNOLOGY SPECIALIST 07/01/2024 7:27 PM ASSISTIVE TECHNOLOGY SPECIALIST Nain Locke DO LAB - BLOOD ORDERABLES Final R esult [facility] [address] [place], [place] [address] [phone] * Parathyroid Hormone Intact (07/01/2024 7:18 PM ASSISTIVE TECHNOLOGY SPECIALIST) Parathyroid Hormone Intact 28 15 - 65 pg/mL 07/01/2024 7:51 PM [facility] Blood STRUCTURE OF RIGHT UPPER LIMB / Unknown Venipuncture / Unknown 07/01/2024 7:18 PM ASSISTIVE TECHNOLOGY SPECIALIST 07/01/2024 7:27 PM ASSISTIVE TECHNOLOGY SPECIALIST Narrative LABORATORY - 07/01/2024 7:51 PM ASSISTIVE TECHNOLOGY SPECIALIST This result was obtained with the [employer] PTH STAT assay. This reference range differs from PTH assays used in other [facility] laboratories. Nain Locek DO LAB - BLOOD ORDERABLES Final R esult LABORATORY [facility] Lab [address] [facility] Lab (1st floor, no room number) [place] [address] * (ABNORMAL) Basic metabolic panel (07/01/2024 7:18 PM ASSISTIVE TECHNOLOGY SPECIALIST) Pathologist [facility] Sodium 133(L) 135 - 145 mmol/L 07/01/2024 7:55 PM [facility] Potassium 2.7(L) 3.4 - 5.3 mmol/L 07/01/2024 7:55 PM [facility] Chloride 79(L) 98 - 107 mmol/L 07/01/2024 7:55 PM [facility] Carbon Dioxide (CO2) 38(H) 22 - 29 mmol/L 07/01/2024 7:55 PM [facility] Anion Gap 16(H) 7 - 15 mmol/L 07/01/2024 7:55 PM [facility] Urea Nitrogen 55.2(H) 6.0 - 20.0 mg/dL 07/01/2024 7:55 PM [facility] Creatinine 3.37(H) 0.51 - 0.95 mg/dL 07/01/2024 7:55 PM [facility] GFR Estimate 18(L) >60 mL/min/1.7 3m2 07/01/2024 7:55 PM [facility] Comment:eGFR calculated usin 2020 CKD-EPI equation. Calcium 11.7(H) 8.8 - 10.4 mg/dL 07/01/2024 7:55 PM [facility] Comment:Reference intervals for this test were updated on 01/08/2024 to reflect our healthy population more accurately. There may be differences in the flagging of prior results with similar values performed with this method. Those prior results can be interpreted in the context of the updated reference intervals. Glucose 114(H) 70 - 99 mg/dL 07/01/2024 7:55 PM ASSISTIVE TECHNOLOGY SPECIALIST LABORATORY Blood STRUCTURE OF RIGHT UPPER LIMB / Unknown Venipuncture / Unknown 07/01/2024 7:18 PM ASSISTIVE TECHNOLOGY SPECIALIST 07/01/2024 7:27 PM ASSISTIVE TECHNOLOGY SPECIALIST Nain Locke DO LAB - BLOOD ORDERABLES Final R esult LABORATORY [facility] [address] [facility] Lab (1st floor, no room number) [place] [phone] * (ABNORMAL) Ionized Calcium (07/01/2024 3:35 PM ASSISTIVE TECHNOLOGY SPECIALIST) Calcium Ionized Whole Blood 5.6(H) 4.4 - 5.2 mg/dL 07/01/2024 3:45 PM ASSISTIVE TECHNOLOGY SPECIALIST LABORATORY Blood VENOUS LINE / Unknown Venipuncture / Unknown 07/01/2024 3:35 PM ASSISTIVE TECHNOLOGY SPECIALIST 07/01/2024 3:42 PM ASSISTIVE TECHNOLOGY SPECIALIST Jesus Bobby MD LAB - BLOOD ORDERABLES F inal Result LABORATORY [facility] [address] [facility] (1[facility], no room number) [place] [phone] * Vitamin D Deficiency (07/01/2024 2:14 PM ASSISTIVE TECHNOLOGY SPECIALIST) Vitamin D, Total (25-Hydroxy) 20 20 - 50 ng/mL 07/02/2024 4:14 AM ASSISTIVE TECHNOLOGY SPECIALIST [facility] Comment:optimum levels Blood STRUCTURE OF RIGHT UPPER LIMB / Unknown Venipuncture / Unknown 07/01/2024 2:14 PM ASSISTIVE TECHNOLOGY SPECIALIST 07/01/2024 2:20 PM ASSISTIVE TECHNOLOGY SPECIALIST Narrative [facility] - 07/02/2024 4:14 AM ASSISTIVE TECHNOLOGY SPECIALIST Season, race, dietary intake, and treatment affect the concentration of 67-fdumisv-Plfwtvl D. Values may decrease during winter months and increase during summer months. Vitamin D determination is routinely performed by an immunoassay specific for 25 hydroxyvitamin D3. If an individual is on vitamin D2(ergocalciferol) supplementation, please specify 25 OH vitamin D2 and D3 level determination by LCMSMS test [id number]. Nain Locke DO LAB - BLOOD ORDERABLES Final R esult [facility] [address] [facility] [place] [address] * Lipase (07/01/2024 2:14 PM ASSISTIVE TECHNOLOGY SPECIALIST) Lipase 29 13 - 60 U/L 07/01/2024 2:58 PM ASSISTIVE TECHNOLOGY SPECIALIST LABORATORY Blood STRUCTURE OF RIGHT UPPER LIMB / Unknown Venipuncture / Unknown 07/01/2024 2:14 PM ASSISTIVE TECHNOLOGY SPECIALIST 07/01/2024 2:20 PM ASSISTIVE TECHNOLOGY SPECIALIST Jesus Bobby MD LAB - BLOOD ORDERABLES F inal Result LABORATORY [facility] [address] [facility] Lab (1st floor, no room number) [place] [address] * (ABNORMAL) Hepatic panel (07/01/2024 2:14 PM ASSISTIVE TECHNOLOGY SPECIALIST) Protein Total 8.8(H) 6.4 - 8.3 g/dL 07/01/2024 2:58 PM ASSISTIVE TECHNOLOGY SPECIALIST [facility] Albumin 5.6(H) 3.5 - 5.2 g/dL 07/01/2024 2:58 PM ASSISTIVE TECHNOLOGY SPECIALIST [facility] Bilirubin Total 0.3 <=1.2 mg/dL 07/01/2024 2:58 PM ASSISTIVE TECHNOLOGY SPECIALIST [facility] Alkaline Phosphatase 84 40 - 150 U/L 07/01/2024 2:58 PM ASSISTIVE TECHNOLOGY SPECIALIST [facility] AST 18 0 - 45 U/L 07/01/2024 2:58 PM ASSISTIVE TECHNOLOGY SPECIALIST [facility] ALT 9 0 - 50 U/L 07/01/2024 2:58 PM ASSISTIVE TECHNOLOGY SPECIALIST [facility] Bilirubin Direct <0.20 0.00 - 0.30 mg/dL 07/01/2024 2:58 PM ASSISTIVE TECHNOLOGY SPECIALIST LABORATORY Blood STRUCTURE OF RIGHT UPPER LIMB / Unknown Venipuncture / Unknown 07/01/2024 2:14 PM ASSISTIVE TECHNOLOGY SPECIALIST 07/01/2024 2:20 PM ASSISTIVE TECHNOLOGY SPECIALIST Jesus Bobby MD LAB - BLOOD ORDERABLES F inal Result Performing Organization Address City/[facility]/ZIP Co de Phone Number [facility] [address] Lab (1st floor, no room number) [place] [address], [facility] * Troponin T, High Sensitivity (07/01/2024 2:14 PM ASSISTIVE TECHNOLOGY SPECIALIST) [facility] Troponin T, High Sensitivity <6 <=14 ng/L 07/01/2024 2:45 PM ASSISTIVE TECHNOLOGY SPECIALIST LABORATORY Comment: Either a High Sensitivity Troponin [...] Unknown Venipuncture / Unknown 07/01/2024 2:14 PM ASSISTIVE TECHNOLOGY SPECIALIST 07/01/2024 2:20 PM ASSISTIVE TECHNOLOGY SPECIALIST Jesus Bobby MD LAB - BLOOD ORDERABLES F inal Result [facility] [address] Lab (1st floor, no room number) [place] [address], [facility] * (ABNORMAL) Magnesium (07/01/2024 2:14 PM ASSISTIVE TECHNOLOGY SPECIALIST) Magnesium 2.8(H) 1.7 - 2.3 mg/dL 07/01/2024 2:45 PM ASSISTIVE TECHNOLOGY SPECIALIST [facility] Blood STRUCTURE OF RIGHT UPPER LIMB / Unknown Venipuncture / Unknown 07/01/2024 2:14 PM ASSISTIVE TECHNOLOGY SPECIALIST 07/01/2024 2:20 PM ASSISTIVE TECHNOLOGY SPECIALIST Narrative [facility] - 07/01/2024 2:45 PM ASSISTIVE TECHNOLOGY SPECIALIST Jesus Bobby MD LAB - BLOOD ORDERABLES F inal Result LABORATORY [facility] [address] [employer] Lab (1st floor, no room number) [place] [address] * Extra Blue Top Tube (07/01/2024 2:14 PM ASSISTIVE TECHNOLOGY SPECIALIST) Hold Specimen JIC 07/01/2024 3:31 PM ASSISTIVE TECHNOLOGY SPECIALIST LABORATORY Blood STRUCTURE OF RIGHT UPPER LIMB / Unknown Venipuncture / Unknown 07/01/2024 2:14 PM ASSISTIVE TECHNOLOGY SPECIALIST 07/01/2024 2:20 PM ASSISTIVE TECHNOLOGY SPECIALIST Jesus Bobby MD LAB - BLOOD ORDERABLES F inal Result LABORATORY [facility] [address] Lab (1st floor, no room number) [place] [phone] * (ABNORMAL) CBC with platelets and differential (07/01/2024 2:14 PM ASSISTIVE TECHNOLOGY SPECIALIST) WBC Count 9.1 4.0 - 11.0 10e3/uL 07/01/2024 2:23 PM ASSISTIVE TECHNOLOGY SPECIALIST [facility] RBC Count 4.12 3.80 - 5.20 10e6/uL 07/01/2024 2:23 PM ASSISTIVE TECHNOLOGY SPECIALIST [facility] Hemoglobin 11.1(L) 11.7 - 15.7 g/dL 07/01/2024 2:23 PM ASSISTIVE TECHNOLOGY SPECIALIST [facility] Hematocrit 32.0(L) 35.0 - 47.0 % 07/01/2024 2:23 PM ASSISTIVE TECHNOLOGY SPECIALIST [facility] MCV 78 78 - 100 fL 07/01/2024 2:23 PM ASSISTIVE TECHNOLOGY SPECIALIST [facility] MCH 26.9 26.5 - 33.0 pg 07/01/2024 2:23 PM ASSISTIVE TECHNOLOGY SPECIALIST [facility] MCHC 34.7 31.5 - 36.5 g/dL 07/01/2024 2:23 PM ASSISTIVE TECHNOLOGY SPECIALIST [facility] RDW 14.0 10.0 - 15.0 % 07/01/2024 2:23 PM ASSISTIVE TECHNOLOGY SPECIALIST [facility] Platelet Count 531(H) 150 - 450 10e3/uL 07/01/2024 2:23 PM ASSISTIVE TECHNOLOGY SPECIALIST [facility] % Neutrophils 70 % 07/01/2024 2:23 PM ASSISTIVE TECHNOLOGY SPECIALIST [facility] % Lymphocytes 20 % 07/01/2024 2:23 PM ASSISTIVE TECHNOLOGY SPECIALIST [facility] % Monocytes 7 % 07/01/2024 2:23 PM ASSISTIVE TECHNOLOGY SPECIALIST [facility] % Eosinophils 1 % 07/01/2024 2:23 PM ASSISTIVE TECHNOLOGY SPECIALIST [facility] % Basophils 1 % 07/01/2024 2:23 PM ASSISTIVE TECHNOLOGY SPECIALIST [facility] % Immature Granulocytes 0 % 07/01/2024 2:23 PM ASSISTIVE TECHNOLOGY SPECIALIST [facility] NRBCs per 100 WBC 0 <1 /100 025 2:23 PM ASSISTIVE TECHNOLOGY SPECIALIST [facility] Absolute Neutrophils 6.4 1.6 - 8.3 10e3/uL 07/01/2024 2:23 PM ASSISTIVE TECHNOLOGY SPECIALIST [facility] Absolute Lymphocytes 1.8 0.8 - 5.3 10e3/uL 07/01/2024 2:23 PM ASSISTIVE TECHNOLOGY SPECIALIST LABORATORY Absolute Monocytes 0.6 0.0 - 1.3 10e3/uL 07/01/2024 2:23 PM ASSISTIVE TECHNOLOGY SPECIALIST [facility] Absolute Eosinophils 0.1 0.0 - 0.7 10e3/uL 07/01/2024 2:23 PM ASSISTIVE TECHNOLOGY SPECIALIST [facility] Absolute Basophils 0.1 0.0 - 0.2 10e3/uL 07/01/2024 2:23 PM ASSISTIVE TECHNOLOGY SPECIALIST LABORATORY Absolute Immature Granulocytes 0.0 <=0.4 10e3/uL 07/01/2024 2:23 PM ASSISTIVE TECHNOLOGY SPECIALIST [facility] Absolute NRBCs 0.0 10e3/uL 07/01/2024 2:23 PM ASSISTIVE TECHNOLOGY SPECIALIST [facility] Blood STRUCTURE OF RIGHT UPPER LIMB / Unknown Venipuncture / Unknown 07/01/2024 2:14 PM ASSISTIVE TECHNOLOGY SPECIALIST 07/01/2024 2:20 PM ASSISTIVE TECHNOLOGY SPECIALIST Jesus Bobby MD LAB - BLOOD ORDERABLES F inal Result Performing Organization Address City/[facility]/ZIP Co de Phone Number [facility] [address] Lab (1st floor, no room number) [place] [address] * HCG QUALitative (blood) (07/01/2024 2:14 PM ASSISTIVE TECHNOLOGY SPECIALIST) Pathologist [facility] hCG Serum Qualitative Negative Negative RUKHSANA 07/01/2024 2:50 PM ASSISTIVE TECHNOLOGY SPECIALIST LABORATORY Comment:This test is for scr eening purposes. Results should be interpreted along with the clinical picture. Confirmation testing is available if warranted by ordering [id number], HCG Quantitative . Blood STRUCTURE OF RIGHT UPPER LIMB / Unknown Venipuncture / Unknown 07/01/2024 2:14 PM ASSISTIVE TECHNOLOGY SPECIALIST 07/01/2024 2:20 PM ASSISTIVE TECHNOLOGY SPECIALIST Jesus Bobby MD LAB - BLOOD ORDERABLES F inal Result Performing Organization Address [facility] Co de Phone Number [facility] [address] Lab (1st floor, no room number) [place] [address] * (ABNORMAL) Basic metabolic panel (BMP) (07/01/2024 2:14 PM ASSISTIVE TECHNOLOGY SPECIALIST) Pathologist [facility] Sodium 129(L) 135 - 145 mmol/L 07/01/2024 3:00 PM [facility] Potassium 2.1(LL) 3.4 - 5.3 mmol/L 07/01/2024 3:00 PM [facility] Chloride 66(L) 98 - 107 mmol/L 07/01/2024 3:00 PM [facility] Carbon Dioxide (CO2) 44(H) 22 - 29 mmol/L 07/01/2024 3:00 PM [facility] Anion Gap 19(H) 7 - 15 mmol/L 07/01/2024 3:00 PM [facility] Urea Nitrogen 58.2(H) 6.0 - 20.0 mg/dL 07/01/2024 3:00 PM [facility] Creatinine 3.67(H) 0.51 - 0.95 mg/dL 07/01/2024 3:00 PM ASSISTIVE TECHNOLOGY SPECIALIST [facility] GFR Estimate 16(L) >60 mL/min/1. 73m2 07/01/2024 3:00 PM ASSISTIVE TECHNOLOGY SPECIALIST [facility] Comment:eGFR calculated usin 2020 CKD-EPI equation. Calcium 14.3(HH) 8.8 - 10.4 mg/dL 07/01/2024 3:00 PM ASSISTIVE TECHNOLOGY SPECIALIST [facility] Comment:Reference intervals for this test were updated on 01/08/2024 to reflect our healthy population more accurately. There may be differences in the flagging of prior results with similar values performed with this method. Those prior results can be interpreted in the context of the updated reference intervals. Glucose 104(H) 70 - 99 mg/dL 07/01/2024 3:00 PM ASSISTIVE TECHNOLOGY SPECIALIST LABORATORY Blood STRUCTURE OF RIGHT UPPER LIMB / Unknown Venipuncture / Unknown 07/01/2024 2:14 PM ASSISTIVE TECHNOLOGY SPECIALIST 07/01/2024 2:20 PM ASSISTIVE TECHNOLOGY SPECIALIST Jesus Bobby MD LAB - BLOOD ORDERABLES F inal Result LABORATORY [facility] [address] [facility] Lab (1st floor, no room number) [place] [address] * EKG 12 lead (07/01/2024 11:37 AM ASSISTIVE TECHNOLOGY SPECIALIST) Systolic Blood Pressure mmHg RADIOLOGY RESULTS Diastolic Blood Pressure mmHg RADIOLOGY RESULTS Ventricular Rate 88 BPM RAD IOLOGY RESULTS Atrial Rate 88 BPM RADIOLOG Y RESULTS PA Interval 136 ms RADIOLOG Y RESULTS QRS Duration 90 ms RADIOLO GY RESULTS QT 536 ms RADIOLOGY RESULTS QTc 648 ms RADIOLOGY RESULTS P [place] 70 degrees RADIOLOGY RESULTS R AXIS 84 degrees RADIOLOGY RESULTS T [place] 78 degrees RADIOLOGY RESULTS Interpretation ECG Sinus rhythm Left ventricular hypertrophy with repolarization abnormality ( Sokolow-Hernandez ) Marked ST abnormality, possible anterior subendocardial injury Prolonged QT Abnormal ECG When compared with ECG of 18-Jun-2024 11:14, Significant changes have occurred Unconfirmed report - interpretation of this ECG is computer generated - see medical record for final interpretation Confirmed by - EMERGENCY ROOM, PHYSICIAN ([id number]), multimedia editor NETTIE KIM ([id number]) on 07/01/2024 12:28:51 PM RADIOLOGY RESULTS 07/01/2024 11:3 7 AM ASSISTIVE TECHNOLOGY SPECIALIST 07/01/2024 12:28 PM ASSISTIVE TECHNOLOGY SPECIALIST Jesus Bobby MD ECG ORDERABLES Edited R esult - Final RADIOLOGY RESULTS * Influenza A/B, RSV and SARS-CoV2 PCR (COVID-19) Nasopharyngeal (07/01/2024 11:32 AM ASSISTIVE TECHNOLOGY SPECIALIST) Pathologist [facility] Influenza A PCR Negative Negative 07/01/2024 12:22 PM ASSISTIVE TECHNOLOGY SPECIALIST [facility] Influenza B PCR Negative Negative 07/01/2024 12:22 PM ASSISTIVE TECHNOLOGY SPECIALIST LABORATORY RSV PCR Negative Negative 07/01/2024 12:22 PM ASSISTIVE TECHNOLOGY SPECIALIST LABORATORY SARS CoV2 PCR Negative Negative 07/01/2024 12:22 PM ASSISTIVE TECHNOLOGY SPECIALIST LABORATORY Comment:NEGATIVE: SARS-CoV-2 (COVID-19) RNA not detected, presumed negative. Swab NASOPHARYNGEAL STRUCTURE / Unknown Non-blood Collection / Unknown 07/01/2024 11:32 AM ASSISTIVE TECHNOLOGY SPECIALIST 07/01/2024 11:39 AM ASSISTIVE TECHNOLOGY SPECIALIST Narrative LABORATORY - 07/01/2024 12:22 PM ASSISTIVE TECHNOLOGY SPECIALIST Testing was performed using the Xpert Xpress CoV2/Flu/RSV Assay on the [employer] GeneXpert Instrument. This test should be ordered [...] management. This test was validated by the [facility] miiCard. These laboratories are certified under the Clinical Laboratory Improvement Amendments of 1988 (CLIA-88) as qualified to perfom high complexity laboratory testing. Jesus Bobby MD LAB - MICRO GENERAL SCHU[place]ER [place] Final Result [facility] Lab [address] [facility] Lab (1st floor, no room number) [place] [address], [facility] documented in this encounter Visit Diagnoses Diagnosis [...] exceed 4 gram $Given 07/01/2024 4:03 PM ASSISTIVE TECHNOLOGY SPECIALIST 1,000 mg acetaminophen (TYLENOL) tablet 975 mg 975 mg, Oral, 3 TIMES DAILY, First dose on Sun07/01/24 at 2000, Maximum acetaminophen dose from all sources = 75 mg/kg/day not to exceed 4 grams/day. $Given 07/03/2024 8:08 AM ASSISTIVE TECHNOLOGY SPECIALIST 975 mg $Given 07/02/2024 8:42 PM ASSISTIVE TECHNOLOGY SPECIALIST 975 mg $Given 07/02/2024 1:51 PM ASSISTIVE TECHNOLOGY SPECIALIST 975 mg dexAMETHasone PF (DECADRON) injection 4 mg 4 mg, Intravenous, ONCE, Administer over 1 Minutes, On Sun07/01/24 at 1520, For 1 dose $Given 07/01/2024 4:03 PM ASSISTIVE TECHNOLOGY SPECIALIST 4 mg gabapentin (NEURONTIN) capsule 300 mg 300 mg, Oral, 2 TIMES DAILY, First dose on Sun07/02/24 at 0700 $Given 07/03/2024 11:52 AM ASSISTIVE TECHNOLOGY SPECIALIST 300 mg $Given 07/03/2024 8:08 AM ASSISTIVE TECHNOLOGY SPECIALIST 300 mg $Given 07/02/2024 11:52 AM ASSISTIVE TECHNOLOGY SPECIALIST 300 mg gabapentin (NEURONTIN) capsule 400 mg 400 mg, Oral, AT BEDTIME, First dose on Sun07/01/24 at 2200 $Given 07/02/2024 8:44 PM ASSISTIVE TECHNOLOGY SPECIALIST 400 mg $Given 07/01/2024 9:01 PM ASSISTIVE TECHNOLOGY SPECIALIST 400 mg heparin ANTICOAGULANT injection 5,000 Units 5,000 Units, Subcutaneous, 3 TIMES DAILY, First dose on Sun07/01/24 at 1800, Contact provider if platelet count drops by 50% or more after heparin initiation OR if platelet count falls below 50 x 10e3/uL High concentration heparin. Not for line flush or cath care. $Given 07/03/2024 8:09 AM ASSISTIVE TECHNOLOGY SPECIALIST 5,000 Units $Given 07/01/2024 8:09 PM ASSISTIVE TECHNOLOGY SPECIALIST 5,000 Units HYDROmorphone (DILAUDID) injection 0.2 mg 0.2 mg, Intravenous, EVERY 4 HOURS PRN, severe pain, Starting on Sun07/01/24 at 1736, All oral pain options should be tried prior to using narcotic medications $Given 07/01/2024 10:07 PM ASSISTIVE TECHNOLOGY SPECIALIST 0.2 mg $Given 07/01/2024 5:51 PM ASSISTIVE TECHNOLOGY SPECIALIST 0.2 mg HYDROmorphone (DILAUDID) tablet 2 mg 2 mg, Oral, EVERY 4 HOURS PRN, severe pain, Starting on Sun07/02/24 at 0719 $Given 07/03/2024 11:48 AM ASSISTIVE TECHNOLOGY SPECIALIST 2 mg $Given 07/02/2024 8:42 PM ASSISTIVE TECHNOLOGY SPECIALIST 2 mg HYDROmorphone (PF) (DILAUDID) injection 0.3 mg 0.3 mg, Intravenous, EVERY 4 HOURS PRN, severe pain, Starting on Sun07/02/24 at 0719, All oral pain options should be tried prior to using narcotic medications $Given 07/03/2024 8:09 AM ASSISTIVE TECHNOLOGY SPECIALIST 0.3 mg $Given 07/03/2024 3:49 AM ASSISTIVE TECHNOLOGY SPECIALIST 0.3 mg $Given 07/02/2024 3:13 PM ASSISTIVE TECHNOLOGY SPECIALIST 0.3 mg HYDROmorphone (PF) (DILAUDID) injection 0.5 mg 0.5 mg, Intravenous, EVERY 4 HOURS PRN, severe pain, Starting on Sun07/02/24 at 0220, All oral pain options should be tried prior to using narcotic medications $Given 07/02/2024 6:38 AM ASSISTIVE TECHNOLOGY SPECIALIST 0.5 mg $Given 07/02/2024 2:27 AM ASSISTIVE TECHNOLOGY SPECIALIST 0.5 mg LORazepam (ATIVAN) injection 0.5 mg 0.5 mg, Intravenous, EVERY 6 HOURS PRN, nausea/vomiting - 3rd line, Starting on Sun07/01/24 at 1520, IV Route: Dilute with equal volume NS prior to use. This drug may cause significant respiratory depression. Monitor respiratory status and vital signs carefully for 1 hour after each dose. $Given 07/02/2024 9:48 PM ASSISTIVE TECHNOLOGY SPECIALIST 0.5 mg $Given 07/01/2024 4:12 PM ASSISTIVE TECHNOLOGY SPECIALIST 0.5 mg melatonin tablet 5 mg 5 mg, Oral, AT BEDTIME PRN, sleep, Starting on Sun07/01/24 at 1721, Do not give unless at least 6 hours of uninterrupted sleep is expected. If patient has multiple medications ordered PRN sleep/insomnia, offer melatonin first. $Given 07/02/2024 8:43 PM ASSISTIVE TECHNOLOGY SPECIALIST 5 mg methocarbamol (ROBAXIN) half-tab 750 mg 750 mg, Oral, 4 TIMES DAILY PRN, muscle spasms, Starting on Sun07/01/24 at 1917 $Given 07/02/2024 5:32 PM ASSISTIVE TECHNOLOGY SPECIALIST 750 m g $Given 07/02/2024 4:38 AM ASSISTIVE TECHNOLOGY SPECIALIST 750 mg $Given 07/01/2024 8:09 PM ASSISTIVE TECHNOLOGY SPECIALIST 750 mg multivitamin w/minerals (THERA-VIT-M) tablet 1 tablet 1 tablet, Oral, DAILY, First dose on Sun07/01/24 at 1920 $Given 07/03/2024 8:08 AM ASSISTIVE TECHNOLOGY SPECIALIST 1 tablet $Given 07/02/2024 9:01 AM ASSISTIVE TECHNOLOGY SPECIALIST 1 tablet $Given 07/01/2024 7:59 PM ASSISTIVE TECHNOLOGY SPECIALIST 1 tablet naloxone (NARCAN) injection 0.2 mg [...] liquid for administration. $Given 07/02/2024 4:49 PM ASSISTIVE TECHNOLOGY SPECIALIST 40 mEq $Given 07/02/2024 11:53 AM ASSISTIVE TECHNOLOGY SPECIALIST 40 mEq $Given 07/02/2024 9:00 AM ASSISTIVE TECHNOLOGY SPECIALIST 40 mEq potassium chloride (KLOR-CON) Packet 40 mEq 40 mEq, Oral, ONCE, On Sun07/01/24 at 1505, For 1 dose, Dissolve packet contents in 4-8 ounces of cold water or juice. $Given 07/01/2024 4:04 PM ASSISTIVE TECHNOLOGY SPECIALIST 40 mEq potassium chloride 10 mEq in 100 mL sterile water infusion 10 mEq, Intravenous, Administer over 60 Minutes, at 100 mL/hr, ONCE, On Sun07/01/24 at 1535, For 1 dose $New Bag 07/01/2024 4:05 PM ASSISTIVE TECHNOLOGY SPECIALIST 10 mEq 100 mL/hr potassium chloride deanne ER (KLOR-CON M20) CR tablet 20 mEq 20 mEq, Oral, ONCE, On Sun07/01/24 at 2100, For 1 dose, DO NOT CRUSH $Given 07/01/2024 9:01 PM ASSISTIVE TECHNOLOGY SPECIALIST 20 mEq potassium chloride deanne ER (KLOR-CON M20) CR tablet 40 mEq 40 mEq, Oral, 3 TIMES DAILY, First dose on Sun07/01/24 at 2000, DO NOT CRUSH $Given 07/01/2024 8:00 PM ASSISTIVE TECHNOLOGY SPECIALIST 40 mEq potassium chloride deanne ER (KLOR-CON M20) CR tablet 40 mEq 40 mEq, Oral, ONCE, On Sun07/02/24 at 1005, For 1 dose, DO NOT CRUSH $Given 07/02/2024 10:36 AM ASSISTIVE TECHNOLOGY SPECIALIST 40 mEq potassium chloride deanne ER (KLOR-CON M20) CR tablet 40 mEq 40 mEq, Oral, 4 TIMES DAILY, First dose (after last reorder) on Sun07/02/24 at 2200, Pharmacy changed from liquid to tabs, per pt request DO NOT CRUSH $Given 07/03/2024 8:08 AM ASSISTIVE TECHNOLOGY SPECIALIST 40 mEq $Given 07/02/2024 9:48 PM ASSISTIVE TECHNOLOGY SPECIALIST 40 mEq potassium chloride deanne ER (KLOR-CON [...] IV dormant line $Given 07/03/2024 3:49 AM ASSISTIVE TECHNOLOGY SPECIALIST 3 mLs $Given 07/01/2024 5:30 PM ASSISTIVE TECHNOLOGY SPECIALIST 3 mLs sodium chloride (PF) 0.9% PF flush 3 mL 3 mL, Intracatheter, EVERY 1 MIN PRN, line flush, other, to ensure patency or to lock dormant line, Starting on Sun07/01/24 at 1721 $Given 07/03/2024 8:09 AM ASSISTIVE TECHNOLOGY SPECIALIST 3 mLs sodium chloride 0.9 % infusion at 100 mL/hr, Intravenous, CONTINUOUS, Starting on Sun07/01/24 at 1640, Until [facility] 07/03/24 at 1509 $New Bag 07/03/2024 4:02 AM ASSISTIVE TECHNOLOGY SPECIALIST 100 mL/hr $New Bag 07/02/2024 6:30 PM ASSISTIVE TECHNOLOGY SPECIALIST 100 mL/hr Rate/Dose Verify 07/02/2024 5:59 PM ASSISTIVE TECHNOLOGY SPECIALIST 100 mL/ hr sodium chloride 0.9% BOLUS 1,000 mL Intravenous, 1,000 mL, ONCE, at 1,000 mL/hr, Administer over 1 Hours, On Sun07/01/24 at 1425, For 1 dose $New Bag 07/01/2024 4:05 PM ASSISTIVE TECHNOLOGY SPECIALIST 1,000 mLs 1000 mL/hr sodium chloride 0.9% BOLUS 500 mL Intravenous, 500 mL, ONCE, at 500 mL/hr, Administer over 1 Hours, On Sun07/01/24 at 1640, For 1 dose $New Bag 07/01/2024 5:28 PM ASSISTIVE TECHNOLOGY SPECIALIST 500 mLs 500 mL/hr documented in this encounter Active and Recently Administered Medications Times are shown in ASSISTIVE TECHNOLOGY SPECIALIST. Scheduled Medication Order 07/01/2024 07/02/2024 07/03/2024 acetaminophen [...] now) 0858 (Not Given - Provider: Linda Puente RN - Reason: Patient/family refused)[id number] (Not Given [...] 1612 ($Given - Provider: Jody Cole RN) 2141 ($Given - Provider: Skylar Winters RN) melatonin [...] stools. documented in this encounter Care Teams [employer] Relationship Specialty [place] [id number] [place] [address] PCP - General 03/07/24 documented as of this encounter
--- OUTSIDE RECORDS SUMMARY | 2024-07-08 19:38 | XMS_ITS | Encounter Summary ---
Author Organization [facility] Address [address] [place] [address] Care Team Providers Care Disc Jockey Name Role Phone Gregg Corrales MD Primary Care Provider Reason for Referral * Consultation (Urgent: 3-5 Days) - Pending Review Specialty Diagnoses / Procedures Referred By Miguelangel aleman Referred To Contact Genetics, Clinical Diagnoses [place] [address] [place] [address] Phone: tel: fax: Referral ID Status Reason Start Date Expiration Date V isits Requested Visits Authorized [id number] Pending Review 06/24/2024 06/24/2025 1 1 Question Answer Reason for Referral: Other My Clinical Question Is: genetic testing for tubulopathy (causing hypokalmeia/alkalosis) like Bartter syndrome and Gitelman syndrome Preferred Location: [facility] Patient Scheduling Instructions: [facility] will call you to coordinate your care as prescribed by your provider. If you don't hear from a automotive leasing sales representative within 2 business days, please call [phone]. Additional Information: Florencia Hurt / BERTIN Brown / ph. [phone] / fax. [phone] Comments Please come to the appointment prepared to discuss: Medical history for yourself - including symptoms, diagnosis, age of onset, and treatments. Medical history for your family members (from immediate family to grandparents, aunts, uncles, and cousins) - including diagnosis, age of onset, and cause of . Information about genetic testing results in family members, including a copy of lab report. [facility] will call you to coordinate your care as prescribed by your provider. If you don't hear from a automotive leasing sales representative within 2 business days, please call [phone]. 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 Not on file Not on file documented as of this encounter Plan of Treatment Upcoming Encounters Date Type Department Care Team (Late st Contact Info) Description 07/09/2024 11:00 AM VP PATIENT Virtual Visit [facility] [address] [facility] [address] [address] [place] [address] [place], [place] [id number] [place], [address] [facility] [address] [place] [address] Scheduled Referrals Name Type Priority Associated Diagnoses Orde r Schedule Adult Genetics & Metabolism Brim Rounder Referral Referral Urgent: 3-5 Days Hypokalemia Alkalosis Expected: 06/24/2024, Expires: 06/24/2025 documented as of this encounter Visit Diagnoses Diagnosis Hypokalemia- Primary Hypopotassemia Alkalosis documented in this encounter Care Teams Disc Jockey Relationship Specialty Start [place] [address] [place] [address] PCP - General 03/07/24 documented as of this encounter
--- OUTSIDE RECORDS SUMMARY | 2024-07-08 19:38 | XMS_ITS | Encounter Summary ---
Author Organization [facility] Address [address] [place] [address]. [place] [address] Care Team Providers Care Backroom Associate Name Role Phone Gregg Corrales MD Primary Care Provider Encounter Details Date Type Department Care Team (Late st Contact Info) Description 06/13/2024 Medical Correspondence [facility] Health Information Management [address] [facility] [address] [place] [address] Scan, Non-Provider Social History Tobacco Use Types [...] in an overnight retirement, or couch-surfing.) Yes 06/17/2024 Are you worried [...] on file Legal Sex Female 4:48 AM FLASHER ADJUSTER Gender Identity Not on file Sexual Orientation Not on file 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 [address] [facility] [address] [address] [place] [address] [place] [address] [place], [address] [facility] [address] [place], [place] [address] documented as of this encounter Visit Diagnoses Not on filedocumented in this encounter Care Teams Backroom Associate Relationship Specialty Start [place] [address] [place], [place] [id number] PCP - General 03/07/24 documented as of this encounter
--- OUTSIDE RECORDS SUMMARY | 2024-07-08 19:39 | XMS_ITS | Encounter Summary ---
Author Organization Count includes the [facility] Address [address] [address] Care Team Providers Care Mint Wafer Depositor Name Role Phone Leyda SANTOS MD, Mary Torres Primary Care Provider +1- [phone] Encounter Details Date Type Department Care Team [...] on filedocumented in this encounter Care Teams Mint Wafer Depositor Relationship Specialty Start Date End Date Mary Crabtree III, MD [address] [place] [address] PCP - General Family Practice 03/31/15 documented as of this encounter
--- OUTSIDE RECORDS SUMMARY | 2024-07-08 19:39 | XMS_ITS | Encounter Summary ---
Author Organization [facility] Address [address], [place] [address] Care Team Providers Care Dynamometer Mechanic Name Role Phone Leyda SANTOS MD, Mary Torres Primary Care Provider +1- [phone] Encounter Details Date Type Department Care Team [...] on filedocumented in this encounter Care Teams Dynamometer Mechanic Relationship Specialty Start Date End Date Mary Crabtree III, MD [address] [place] [address] PCP - General Family Practice 03/31/15 documented as of this encounter
--- OUTSIDE RECORDS SUMMARY | 2024-07-08 19:39 | XMS_ITS | Encounter Summary ---
Author Organization [facility] Address [address] [place] [address] Care Team Providers Care Machine Bunch Maker Name Role Phone Leyda SANTOS MD, Mary Torres Primary Care Provider +1- [phone] Encounter Details Date Type Department Care Team (Late st Contact Info) Description 03/30/2016 Correspondence [facility] [address] [place], [place] [id number] Mary Crabtree III, MD [address] [place], [place] [id number] 03-06 PLAN OF CARE Social History Tobacco [...] filedocumented in this encounter Care Teams Machine Bunch Maker Relationship Specialty Start Date End Date Mary Crabtree III, MD [address] [place] [address] PCP - General Family Practice 03/31/15 documented as of this encounter
--- OUTSIDE RECORDS SUMMARY | 2024-07-08 19:39 | XMS_ITS | Encounter Summary ---
Author Organization [facility] Address [address] [address] Care Team Providers Care Trout Farmer Name Role Phone Leyda SANTOS MD, Mary Torres Primary Care Provider +1- [phone] Encounter Details Date Type Department Care Team [...] on filedocumented in this encounter Care Teams Trout Farmer Relationship Specialty Start Date End Date Mary Crabtree III, MD [address] [place] [address] PCP - General Family Practice 03/31/15 documented as of this encounter
--- OUTSIDE RECORDS SUMMARY | 2024-07-08 19:39 | XMS_ITS | Encounter Summary ---
Author Organization [facility] Address [address] [place] [address] Care Team Providers Care Waxer Floor Name Role Phone Leyda SANTOS MD, Mary Torres Primary Care Provider +1- [phone] Encounter Details Date Type Department Care Team (Late st Contact Info) Description 10/03/2015 Scanned History External to Transferred Record, Provider [facility] Social History Tobacco Use Types Packs/Day Years [...] on filedocumented in this encounter Care Teams Waxer Floor Relationship Specialty Start Date End Date Mary Crabtree III, MD [address] [place] [address] PCP - General Family Practice 03/31/15 documented as of this encounter
--- OUTSIDE RECORDS SUMMARY | 2024-07-08 19:39 | XMS_ITS | Encounter Summary ---
Author Organization [facility] Address [address] [place] [address]. 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 Not on file Not on file documented as of this encounter Plan of Treatment Upcoming Encounters Date Type Department Care Team (Late st Contact Info) Description 07/09/2024 11:00 AM LODGING MANAGER Virtual Visit [facility] [address] [facility] [address] [address] [place] [address] [place], [place] [id number] [place] [address] [facility] [address] [place] [address] documented as of this encounter Visit Diagnoses Not on filedocumented in this encounter Care Teams Finisher Screwdown Relationship Specialty [place] [address] [place] [address] PCP - General 03/07/24 documented as of this encounter
--- OUTSIDE RECORDS SUMMARY | 2024-07-08 19:39 | XMS_ITS | Encounter Summary ---
Author Organization [facility] [place] [facility] Address [address], [place] [address] Care Team Providers Care Senior Mortgage Loan Processor Name Role Phone Leyda SANTOS MD, Mary Torres Primary Care Provider +1- [phone] Encounter Details Date Type Department Care Team (Late st Contact Info) Description 02/14/2016 Consent for Procedure/Treatme nt [facility] Department INFORMED CONSENT RECORD Social History Tobacco [...] filedocumented in this encounter Care Teams Senior Mortgage Loan Processor Relationship Specialty Start Date End Date Mary Crabtree III, MD [address] [place] [address] PCP - General Family Practice 03/31/15 documented as of this encounter
--- OUTSIDE RECORDS SUMMARY | 2024-07-08 19:39 | XMS_ITS | Encounter Summary ---
Author Organization [facility] Address [address] [place] [address] Care Team Providers Care Hand Box Coverer Name Role Phone Leyda SANTOS MD, Mary Torres Primary Care Provider +1- [phone] Encounter Details Date Type Department Care Team (Late st Contact Info) Description 07/14/2017 Outside Hospital External to [facility], Provider H AND P Social History [...] on filedocumented in this encounter Care Teams Hand Box Coverer Relationship Specialty Start Date End Date Mary Crabtree III, MD [address] [place] [address] PCP - General Family Practice 03/31/15 documented as of this encounter
--- OUTSIDE RECORDS SUMMARY | 2024-07-08 19:39 | XMS_ITS | Encounter Summary ---
Author Organization [facility] Address [address], [place] [address] Care Team Providers Care Fire Alarm Mechanic Name Role Phone Leyda SANTOS MD, Mary Torres Primary Care Provider +1- [phone] Encounter Details Date Type Department Care Team (Late st Contact Info) Description 07/18/2016 Correspondence [facility] Radiology [address] [place] [id number] Radiology, Provider MRI SAFETY SHEET AND COMPATIBILITY [...] on filedocumented in this encounter Care Teams Fire Alarm Mechanic Relationship Specialty Start Date End Date Mary Crabtree III, MD [address] [place] [address] PCP - General Family Practice 03/31/15 documented as of this encounter
--- OUTSIDE RECORDS SUMMARY | 2024-07-08 19:39 | XMS_ITS | Encounter Summary ---
Author Organization [facility] Address [address] [place] [address] Care Team Providers Care Toolmaker Name Role Phone Leyda SANTOS MD, Mary Torres Primary Care Provider +1- [phone] Encounter Details Date Type Department Care Team (Late st Contact Info) Description 09/24/2015 Scanned History External to Transferred Record, Provider [facility] Social History Tobacco Use Types Packs/Day [...] on filedocumented in this encounter Care Teams Toolmaker Relationship Specialty Start Date End Date Mary Crabtree III, MD [address] [place] [address] PCP - General Family Practice 03/31/15 documented as of this encounter
--- OUTSIDE RECORDS SUMMARY | 2024-07-08 19:39 | XMS_ITS | Encounter Summary ---
Author Organization [facility] Address [address] [address] Care Team Providers Care Mill Feeder Name Role Phone Leyda SANTOS MD, Mary Torres Primary Care Provider +1- [phone] Encounter Details Date Type Department Care Team (Late st Contact Info) Description 05/12/2017 Outside Hospital External to [facility], Provider H AND P Social History [...] on filedocumented in this encounter Care Teams Mill Feeder Relationship Specialty Start Date End Date Mary Crabtree III, MD [address] [place] [address] PCP - General Family Practice 03/31/15 documented as of this encounter
--- OUTSIDE RECORDS SUMMARY | 2024-07-08 19:39 | XMS_ITS ---
Author Organization [facility] Address [address] [place] [address] Care Team Providers Care Product Marketing Consultant Name Role Phone Gregg Corrales MD Primary Care Provider Transitional Care Management Status:Closed (Closed) Start date:05/20/2024 Enrollment date:05/21/2024 End date:06/03/2024 Close reason:Goals met Continued Care and Services Coordination
--- OUTSIDE RECORDS SUMMARY | 2024-07-08 19:39 | XMS_ITS ---
Author Organization [facility] Address [address] [place] [address] Care Team Providers Care Construction Job Cost Estimator Name Role Phone Gregg Corrales MD Primary Care Provider Transitional Care Management Status:Closed (Closed) Start date:06/21/2024 Enrollment date:06/24/2024 End date:07/05/2024 Close reason:Goals met Continued Care and Services Coordination
--- OUTSIDE RECORDS SUMMARY | 2024-07-08 19:39 | XMS_ITS | Encounter Summary ---
Author Organization [facility] Address [address] [place] [address] Care Team Providers Care Central Station Operator Name Role Phone Leyda SANTOS MD, Mary Torres Primary Care Provider +1- [phone] Encounter Details Date Type Department Care Team (Late st Contact Info) Description 10/03/2015 Scanned History External to Transferred Record, Provider [facility] Social History Tobacco Use Types [...] on filedocumented in this encounter Care Teams Central Station Operator Relationship Specialty Start Date End Date Mary Crabtree III, MD [address] [place] [address] PCP - General Family Practice 03/31/15 documented as of this encounter
--- OUTSIDE RECORDS SUMMARY | 2024-07-08 19:39 | XMS_ITS | Encounter Summary ---
Author Organization [facility] Address [address] [place] [address] Care Team Providers Care Crop Duster Helper Name Role Phone Leyda SANTOS MD, Mary Torres Primary Care Provider +1- [phone] Encounter Details Date Type Department Care Team (Late st Contact Info) Description 04/15/2015 Consent for Procedure/Treatme nt [facility] Department INFORMED CONSENT RECORD Social History [...] on filedocumented in this encounter Care Teams Crop Duster Helper Relationship Specialty Start Date End Date Mary Crabtree III, MD [address] [place] [address] PCP - General Family Practice 03/31/15 documented as of this encounter
--- OUTSIDE RECORDS SUMMARY | 2024-07-08 19:39 | XMS_ITS | Encounter Summary ---
Author Organization [facility] Address [address] [place] [address] Care Team Providers Care Shipping And Receiving Weigher Name Role Phone Mary Crabtree MD Primary Care Provider [phone] Gregg Corrlaes MD Primary Care Provider [facility] Primary Care Provider + Stephon Corrales MD Primary Care Provider [phone] Gregg Corrales MD Primary Care Provider Reason for Visit * Reason Onset Date Comments MH/CD Inpatient 03/15/2015 Encounter Details Date Type Department Care Team (Late st Contact Info) Description 03/15/2015 Telephone [facility] Intake [address] [place] [phone] Generic, Behavioral Intake, MH/CD Inpatient Social History Tobacco Use Types Packs/Day Years Used Date Smoking Tobacco: Never Alcohol Use Standard Drinks/Week Comments No 0 (1 standard drink = 0.6 oz pur e alcohol) Comments Unknown Sex and Gender Information Value Date Recorded Sex Assigned at Not on file Legal Sex Female 4:48 AM COOK CASHIER FOOD PREP Gender Identity Not on file Sexual Orientation [...] st Contact Info) Description 07/09/2024 11:00 AM COOK CASHIER FOOD PREP Virtual Visit [facility] [address] [facility] [address] [address] [place] [address] [place] [address] [place] [address] [facility] [address] [place], [place] [address] documented as of this encounter Visit Diagnoses Not on filedocumented in this encounter Additional Health Concerns Infection Onset Date Last Indicated Resolved Time Rule Out COVID-19 10/31/2019 10/31/2019 11/01/2019 12:18 PM CDT Rule Out COVID-19 04/30/2022 04/30/2022 04/30/2022 12:25 PM COOK CASHIER FOOD PREP Rule Out COVID-19 05/16/2022 05/16/2022 05/16/2022 6:08 PM COOK CASHIER FOOD PREP Rule Out C-difficile 05/16/2022 05/17/2022 022 11:51 AM COOK CASHIER FOOD PREP Rule Out COVID-19 07/01/2024 07/01/2024 07/01/2024 12:22 PM COOK CASHIER FOOD PREP documented as of this encounter Care Teams Shipping And Receiving Weigher Relationship Specialty Start Date End Date Mary Crabtree MD [address] [place] [address] PCP - General Family Practice 03/15/15 03/06/18 [place] [address] [place], [place] [phone] PCP - General 03/07/18 08/09/19 [facility] [address] [place] [phone] PCP - General 08/10/19 02/08/21 Stephon Corrales MD [facility] [address] [place] [address] PCP - General 02/09/21 03/06/24 [place] [address] [place] [address] PCP - General 03/07/24 documented as of this encounter
--- OUTSIDE RECORDS SUMMARY | 2024-07-08 19:39 | XMS_ITS | Encounter Summary ---
Author Organization [facility] Address [address], [place] [address] Care Team Providers Care Tow Truck Operator Name Role Phone Leyda SANTOS MD, Mary Torres Primary Care Provider [phone]- [phone] Encounter Details Date Type Department Care Team (Late st Contact Info) Description 01/03/2016 Consent for Procedure/Treatme nt [facility] Department INFORMED CONSENT RECORD Social History Tobacco [...] on filedocumented in this encounter Care Teams Tow Truck Operator Relationship Specialty Start Date End Date Mary Crabtree III, MD [address] [place] [address] PCP - General Family Practice 03/31/15 documented as of this encounter
--- OUTSIDE RECORDS SUMMARY | 2024-07-08 19:39 | XMS_ITS | Clinical Summary ---
Author Organization [facility] Address [address] [place] [address] Care Team Providers Care Pipelines Superintendent Name Role Phone Leyda SANTOS MD, Mary Torres Primary Care Provider [phone]- [phone] Source Comments You are receiving this document [...] for each transition of care or referral. vivio Allergies Active Allergy Reactions Criticality Noted Date [...] doctors who care for you at the [facility] are concerned about your recent visits. Our goal is providing quality and consistent care on each visit, to help you improve your overall health. We want to let you know about the care plan recently created for you by our team of health personal care worker. A care plan is a way to help our staff provide you with reliable care during any future visits to the [facility]. We are concerned about your [...] care that is better managed by a Bottom Liquor Attendant or painter supervisor who can help you with your chronic [...] be posted within your medical [facility] in [facility] to help the emergency department staff and clinic staff. We may check with the [place] Prescription Monitoring Program to evaluate your recent [...] During or after your visit, our case investigator will help you connect with additional resources in the community so you can improve your overall health. We want to you to know what resources are available to you right now: Case Management: The emergency department case investigator can help answer questions about your care plan and record any concerns you may have about this plan. Most importantly, they are available to help connect you to other resources until you have built a relationship with a primary care provider. To speak with a gearcase assembler, please contact [phone] or [phone]. Primary Care Providers: Your primary care doctor can work with you to stabilize your medical illnesses. This may require more frequent visits or changing your treatment plan. You are expected to work with your primary care doctor to help control your disease. If you do not have a primary care doctor, our gearcase assembler can help you determine your best options for receiving reliable primary care. Specialty care: Working with a specialist (xxx) may be required to get your illnesses or injuries under control. Following the treatment plan recommended by your specialist is essential to controlling your medical illnesses. If you do not have a specialty care doctor, our gearcase assembler can help you determine your best options for referral. Crisis line: [facility] has an adult mental health service crisis unit to help those with mental illnesses. Call [phone] for assistance. Financial counseling: [facility] financial counselors are available to answer your questions about your account with our hospital as well as your options for enrolling in a health insurance plan. You may contact them directly at [phone] Chemical dependency: [facility] offers evaluation to residents for treatment for chemical dependency, including addiction to alcohol, street drugs, or prescription medications. Call [phone] to arrange for an evaluation. We know [...] receive the best possible healthcare. Our case investigator are available to further help connect you with your best options for care. Please contact them at [phone] or [phone] Sincerely, [facility] Care Plan Committee CAREPLAN: [facility] DISEASE [facility] 6 05/02/2017 Overview (03/08/2016): Background: Engaged in Complex Case Management:Bambi Cloud, RN [phone] Goals/Recommendations: PT CARE COORDINATION - HEALTH INTERMEDIATE 12/30/2015 09/17/2017 Overview (03/06/2016): Pt enrolled in [...] AM Assessment & Plan (08/25/2016 10:52 AM HEAVY CLEANER): Contacted pt to f/u on recent ED [...] AM Assessment & Plan (07/28/2016 11:11 AM HEAVY CLEANER): Contacted pt to see how she is [...] AM Assessment & Plan (07/14/2016 11:48 AM HEAVY CLEANER): Pt answered positively to PHQ9 #9. Denies [...] working with the doctors to find a snf tx plan. Pt notes that she has not been following up regularly for clinic and lab visits because of this frustration with her prognosis(i.e.-she is not improving). Tile Layer Helper expressed understanding, but also noted that this [...] AM Assessment & Plan (07/13/2016 4:13 PM HEAVY CLEANER): Left message to return call. Pt seen in ED 07/07/16 for fall and weakness. Advised to f/u with nephrology. Has not seen or scheduled with them. Calling to see how pt is doing. Laura Rader RN 07/13/2016, 4:12 PM Assessment & Plan (06/29/2016 3:21 PM HEAVY CLEANER): Pt notes that she continues to have [...] PM Assessment & Plan (05/19/2016 11:11 AM HEAVY CLEANER): Message sent to D&CM to review pt [...] 10/18/1992, 2,1991,1990 Influenza IIV4 (Quadrivalent ) 0.5mL (33779) 2015(Deferred: Patient Refused) MCV4 (Menactra) 04/19/2009 MMR [...] 5:04 PM 06/22/2016 2:38 PM Care Teams Pipelines Superintendent Relationship Specialty Start Date End Date Mary Crabtree III, MD [address] [place] [address] PCP - General Family Practice 03/31/15
--- OUTSIDE RECORDS SUMMARY | 2024-07-08 19:39 | XMS_ITS | Encounter Summary ---
[facility] Address [address] [address] Care Team Providers Care Africana Studies Professor Name Role Phone Leyda SANTOS MD, Mary Torres Primary Care Provider [phone]- [phone] Encounter Details Date Type Department Care Team [...] on filedocumented in this encounter Care Teams Africana Studies Professor Relationship Specialty Start Date End Date Mary Crabtree III, MD [address] [place] [address] PCP - General Family Practice 03/31/15 documented as of this encounter
--- OUTSIDE RECORDS SUMMARY | 2024-07-08 19:39 | XMS_ITS | Encounter Summary ---
Author Organization [facility] Address [address] [address] Care Team Providers Care Belting Cutter Name Role Phone Leyda SANTOS MD, Mary Torres Primary Care Provider [phone]- [phone] Encounter Details Date Type Department Care Team [...] on filedocumented in this encounter Care Teams Belting Cutter Relationship Specialty Start Date End Date Mary Crabtree III, MD [address] [place] [address] PCP - General Family Practice 03/31/15 documented as of this encounter
--- OUTSIDE RECORDS SUMMARY | 2024-07-08 19:39 | XMS_ITS | Encounter Summary ---
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 BARBARA (acute kidney injury) (H) Hypercalcemia Alkalosis [facility] [address] [place] [address] Phone: tel: fax: Referral ID Status Reason Start Date Expiration Date Visits Re quested Visits Authorized [id number] 1 1 Encounter Details Date Type Department Care Team (Late st Contact Info) Description 05/29/2024 1:58 PM LIFE AGENT - 05/31/2024 5:58 PM LIFE AGENT Hospital Encounter [facility] [address] [place] [address] Jamil Carlin MD [facility] [address] [place], [place] [id number] Azar Umanzor MD [address] [place] [address] Hypokalemia; BARBARA (acute kidney injury); Hypercalcemia; Alkalosis; [...] an overnight long term, or couch-surfing.) Yes 05/30/2024 Are you worried [...] on file Legal Sex Female 4:48 AM LIFE AGENT Gender Identity Not on file Sexual Orientation Not on file 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 Not on file Not on file documented as of this encounter Last Filed Vital Signs Vital Sign Reading Time Taken Comments Blood Pressure 131/90 05/31/2024 4:00 PM LIFE AGENT Pulse 82 05/31/2024 4:00 PM LIFE AGENT Temperature 36.7 C (98 F) 05/31/2024 4:00 PM LIFE AGENT Respiratory Rate 18 05/31/2024 4:00 PM LIFE AGENT Oxygen Saturation 98% 05/31/2024 4:00 PM LIFE AGENT Inhaled Oxygen Concentration - - Weight 50.2 kg (110 lb 10.7 oz) 05/31/2024 8:23 AM LIFE AGENT Height 170.2 cm (5' 7) 05/29/2024 1:48 PM LIFE AGENT Body Mass Index 17.33 05/29/2024 1:48 PM LIFE AGENT documented in this encounter Discharge Summaries * Emeterio Solorzano MD - 05/31/2024 5:58 PM CST [facility] Discharge Summary Name: Lorraine Klein Date of [...] patient and coordinating discharge was: 10 Minutes. AGENT documented in this encounter Medications at Time [...] by Pain Management service. Emeterio Solorzano MD AGENT * Emeteroi Solorzano MD - 05/31/2024 1:51 PM CST [facility] Hospitalist Progress Note Assessment & Plan [...] 05/31. Continue IVF one day more. Continue SOFTWARE IMPLEMENTATION PROJECT MANAGER scheduled potassium 40 meq but reduce from [...] 975 mg Oral Q8H Karen Palacio APRN BALLROOM DANCE INSTRUCTOR 975 mg at 05/31/24 1220 cetirizine (zyrTEC) tablet 10 mg 10 mg Oral At Bedtime Karen Palacio APRN BALLROOM DANCE INSTRUCTOR 10 mg at 05/30/24 2215 gabapentin (NEURONTIN) capsule 100 mg 100 mg Oral BID Karen Palacio APRN BALLROOM DANCE INSTRUCTOR 100 mg at 05/31/24 1220 gabapentin (NEURONTIN) capsule 300 mg 300 mg Oral BID Karen Palacio APRN BALLROOM DANCE INSTRUCTOR 300 mg at 05/31/24 1219 gabapentin (NEURONTIN) capsule 400 mg 400 mg Oral At Bedtime Karen Palacio APRNCNP 400 mg at 05/30/24 2214 magnesium oxide (MAG-OX) tablet 400 mg 400 mg Oral BID Sean Freeman MD potassium chloride deanne ER (KLOR-CON M20) CR tablet 40 mEq 40 mEq Oral BID Sena Freeman MD sodium chloride (PF) 0.9% PF [...] previous visit (from the past 24 hours). AGENT * Sean Freeman MD - 05/31/2024 12:18 [...] 975 mg Oral Q8H Karen Palacio APRN BALLROOM DANCE INSTRUCTOR 975 mg at 05/31/24 1220 cetirizine (zyrTEC) tablet 10 mg 10 mg Oral At Bedtime Karen Palacio APRN BALLROOM DANCE INSTRUCTOR 10 mg at 05/30/24 2215 gabapentin (NEURONTIN) capsule 100 mg 100 mg Oral BID Karen Palacio APRN BALLROOM DANCE INSTRUCTOR 100 mg at 05/31/24 1220 gabapentin (NEURONTIN) capsule 300 mg 300 mg Oral BID Karen Palacio APRN BALLROOM DANCE INSTRUCTOR 300 mg at 05/31/24 1219 gabapentin (NEURONTIN) [...] at 05/31/24 0332 Current active medications and SOFTWARE IMPLEMENTATION PROJECT MANAGER medications reviewed, see medication list for details. [...] medications, labs and imaging. Sean Freeman MD AGENT * Azar Umanzor MD - 05/30/2024 11:37 AM CST [facility] Hospitalist Progress Note Assessment & Plan Lorraine [...] 05/30. Continue IVF for metabolic alkalosis. Continue SOFTWARE IMPLEMENTATION PROJECT MANAGER scheduled potassium 40 meq4 times daily. High [...] are maintained. HUSEYIN MCKEON MD SYSTEM ID: [id number] XR Ankle Left G/E 3 Views Narrative XR ANKLE LEFT G/E 3 VIEWS 05/29/2024 4:02 PM HISTORY: fall, ankle pain COMPARISON: None. Impression IMPRESSION: No fracture. Intact ankle mortise and distal syndesmosis. HUSEYIN MCKEON MD SYSTEM ID: [id number] AGENT * Nereyda Chauhan LPN - 05/29/2024 8:44 PM CST Pt refusing assistance with going to the restroom. Has IV fluids and sore leg. Will allow bed alarmon at this time. AGENT documented in this encounter H&P Notes * Azar Umanzor MD - 05/29/2024 5:35 PM CST [facility] History and Physical Hospitalist Date of [...] normal saline at 100 cc/h. Continue her SOFTWARE IMPLEMENTATION PROJECT MANAGER schedule potassium 40 mill equivalents 4 times [...] are maintained. HUSEYIN MCKEON MD SYSTEM ID: [id number] XR Ankle Left G/E 3 Views Narrative XR ANKLE LEFT G/E 3 VIEWS 05/29/2024 4:02 PM HISTORY: fall, ankle pain COMPARISON: None. Impression IMPRESSION: No fracture. Intact ankle mortise and distal syndesmosis. HUSEYIN MCKEON MD SYSTEM ID: [id number] Clinically Significant Risk Factors Present on Admission [...] encounter: 50.4 kg (111 lb 1.8 oz). AGENT documented in this encounter Consult Notes * [...] Communication Assessment Patient's communication style: spoken language (Luxembourger or Bilingual) Hearing Difficulty or Deaf: no [...] No Depression: At risk (10/22/2023) Received from [facility] PHQ-2 PHQ-2 TOTAL SCORE: 3 Housing Stability: Low Risk (05/30/2024) Housing Stability Do you have housing? : Yes Are you worried about losing your housing?: No Recent Concern: Housing Stability - High Risk (05/29/2024) Housing Stability Do you have housing? : No Are you worried about losing your housing?: No Tobacco Use: Low Risk (05/27/2024) [facility] Patient History Smoking Tobacco Use: Never Smokeless Tobacco Use: Never Passive Exposure: Not on file Financial Resource Strain: Low Risk (05/30/2024) Financial Resource Strain Within the past 12 months, have you or your family members you live with been unable to get utilities (heat, electricity) when it was really needed?: No Alcohol Use: Not At Risk (04/07/2021) Received from [facility] AUDIT-C Frequency of Alcohol Consumption: Never [...] Sufficiently Active (04/07/2021) Received from [facility] Exercise Vital Sign Days of Exercise [...] No Stress Concern Present (04/07/2021) Received from [facility], [facility] [place] of Occupational Health - Occupational Stress Questionnaire Feeling of Stress : Only a little Social Connections: Socially Integrated (02/29/2024) Received from [facility] Social Connections Do you often feel [...] that her PCP and Nephrology is with [facility]. At one time, she had a [...] she did not follow through with the [facility] - she said she had no insurance at the time and does not want to pay $700 out of pocket. She currently has an MA sony pending [facility] for the last 2 months. 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 Reviewed case with Dr [...] follow at this time. 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 AGENT * Sean Freeman MD - 05/30/2024 12:37 PM CSTAssociated Order(s): NEPHROLOGY IP CONSULT Nephrology Consultation Lorraine Klein Date of : 1990 Age: [...] stairs at home. She lives in a [facility] in [place], [place]. She follows with a drum sprayer affiliated with [facility]. She tells me at home she [...] 975 mg Oral Q8H Karen Palacio APRN BALLROOM DANCE INSTRUCTOR 975 mg at 05/30/24 1231 cetirizine (zyrTEC) tablet 10 mg 10 mg Oral At Bedtime Karen Palacio APRN CNP gabapentin (NEURONTIN) capsule 100 mg 100 mg Oral BID Karen Palacio APRN BALLROOM DANCE INSTRUCTOR 100 mg at 05/30/24 1232 gabapentin (NEURONTIN) capsule 300 mg 300 mg Oral BID Karen Palacio APRN BALLROOM DANCE INSTRUCTOR 300 mg at 05/30/24 1232 gabapentin (NEURONTIN) [...] mg 7.5 mg Oral Q6H PRN Karen Palcaio APRN CNP senna-docusate (SENOKOT-S/PERICOLACE) 8.6-50 MG per [...] Rate 83 BPM Atrial Rate 83 BPM DE Interval 128 ms QRS Duration 96 ms QT 424 ms QTc 498 ms P [place] 61 degrees R AXIS 85 degrees T [place] 80 degrees Interpretation ECG Sinus rhythm Nonspecific ST abnormality QTcB >= 480 msec Abnormal ECG When compared with ECG of 15-May-2024 14:12, T wave inversion no longer evident in Inferior leads T wave inversion no longer evident in Anterior leads Confirmed by - EMERGENCY ROOM, PHYSICIAN ([id number]), editor book LUPE VILLAGOMEZ ([id number]) on 05/29/2024 3:24:01 PM Blood gas venous [...] Range TSH 1.95 0.30 - 4.20 uIU/mL [facility] Narrative The following orders were created for panel order [facility]. Procedure Abnormality Status --------- ------ Extra Blue Top Tube[[id number]] Final result Extra Red Top Tube[[id number]] Final result Please view results for these [...] Negative Ketones Urine Negative Negative mg/dL Specific [place] Urine 1.010 1.003 - 1.035 Blood Urine [...] are maintained. HUSEYIN MCKEON MD SYSTEM ID: [id number] XR Ankle Left G/E 3 Views Narrative XR ANKLE LEFT G/E 3 VIEWS 05/29/2024 4:02 PM HISTORY: fall, ankle pain COMPARISON: None. Impression IMPRESSION: No fracture. Intact ankle mortise and distal syndesmosis. HUSEYIN MCKEON MD SYSTEM ID: [id number] Potassium Result Value Ref Range Potassium 2.4 [...] Rate 84 BPM Atrial Rate 84 BPM DE Interval 128 ms QRS Duration 88 ms QT 416 ms QTc 491 ms P [place] 61 degrees R AXIS 79 degrees T [place] 61 degrees Interpretation ECG Sinus rhythm ST & T wave abnormality, consider anterior ischemia Prolonged QT Abnormal ECG AGENT * Karen Palacio, [facility] - 05/30/2024 11:31 AM CSTAssociated Order(s): PAIN MANAGEMENT ADULT IP CONSULT Images from the original note were not included. [facility] ACUTE PAIN SERVICE CONSULTATION [facility] [employer] Web Console Karen Date of Admission: 05/29/2024 [...] had referrals to outside pain clinics in [facility] and [facility] locally. It is unclear if she ever followed up with the [facility]. Per my conversation today with [facility] nurse patient did not come to her scheduled visit this past early summer nor has she scheduled following a note entry in March of this year at the pain clinic. [facility] [...] prescriber has been primary care provider -[place] HAZARDOUS WASTE MANAGEMENT SPECIALIST pulled from system on 05/30/2024 and concerns [...] primary care, pain clinic (has referral to [facility] and they are agreeable to [...] are maintained. HUSEYIN MCKEON MD SYSTEM ID: [id number] XR Ankle Left G/E 3 Views Impression IMPRESSION: No fracture. Intact ankle mortise and distal syndesmosis. HUSEYIN MCKEON MD SYSTEM ID: [id number] Labs Reviewed Personally By Myself Sodium Date [...] concerns addressed to patient's satisfaction. Karen Palacio, COMPUTER GAME DESIGNER,BALLROOM DANCE INSTRUCTOR, ACHPN, PGMT-BC Acute Pain Team ( [facility], [facility], [facility]) 8-4:30 after 3:30 contact primary team No weekend coverage Securely message with the Vocera Web Console (learn more here) AGENT documented in this encounter ED Notes * Kristen Finley, RN - 05/29/2024 5:11 PM CST [facility] ED Nurse Handoff Report ED Chief [...] standby. Lift room needed: No. Bariatric: No Filling Technician Needed: No Isolation: No. Infection: Not Applicable. [...] Bilirubin Urine Negative Ketones Urine Negative Specific [place] Urine 1.010 Blood Urine Negative pH Urine [...] distal syndesmosis. HUSEYIN MCKEON MD SYSTEM ID: [id number] XR Knee Left 3 Views Final Result IMPRESSION: No fracture or malalignment. No effusion. Joint spaces are maintained. HUSEYIN MCKEON MD SYSTEM ID: [id number] Treatments provided: Oral pain meds, x-rays, fluids [...] inform them the note was read: Yes AGENT AGENT * Angelica Mckeon RN - 05/29/2024 2:11 PM CST Bed: ED38 Expected date: Expected time: Means of arrival: Comments: ED room AGENT * Jamil Carlin MD - 05/29/2024 2:04 [...] Bilirubin Urine Negative Ketones Urine Negative Specific [place] Urine 1.010 Blood Urine Negative pH Urine [...] distal syndesmosis. HUSEYIN MCKEON MD SYSTEM ID: [id number] XR Knee Left 3 Views Final Result IMPRESSION: No fracture or malalignment. No effusion. Joint spaces are maintained. HUSEYIN MCKEON MD SYSTEM ID: [id number] EKG ECG taken at 1410, ECG read at 1415 Normal Sinus Rhythm Nonspecific ST Abnormality QTcB >= 480 msec Abnormal ECG QTT by 36 ms as compared to prior, dated 05/15/2024. Rate 83 bpm. DE interval 128 ms. QRS duration 96 ms. [...] 10 mg (10 mg Oral $Given 05/29/24 6385) acetaminophen (TYLENOL) tablet 975 mg (975 mg [...] to me. Jamil Carlin MD 05/29/24 191 AGENT * Aileen Hylton RN - 05/29/2024 1:46 [...] WDL WDL Cardiac WDL Cardiac WDL WDL AGENT documented in this encounter Miscellaneous Notes * [...] RN Safety Promotion/Fall Prevention: safety round/check completed AGENT * Plan of Care - Laura Peralta RN - 05/31/2024 4:10 AM CST Assumed care [id number]. A&Ox4. Up ad kathy when OOB- patient [...] room near nurse's station safety round/check completed AGENT * Plan of Care - Bailey Lloyd [...] Electrolyte Imbalance Goal: Electrolyte Balance Outcome: Progressing AGENT * Plan of Care - Destiny Miguel [...] Flowsheet Documentation Taken 05/29/20242140 by Destiny Miguel security inspector Interventions: medication (see MAR) Taken 05/29/20242000 by Destiny Miguel security inspector Interventions: medication (see MAR) cold applied Goal: Readiness for Transition of Care Outcome: Progressing Intervention: Mutually Develop Transition Plan Recent Flowsheet Documentation Taken 05/29/20242003 by Destiny Miguel RN Equipment Currently Used at Home: none Problem: Pain Acute Goal: Optimal Pain Control and Function Outcome: Progressing Intervention: Develop Pain Management Plan Recent Flowsheet Documentation Taken 05/29/20242140 by Destiny Miguel security inspector Interventions: medication (see MAR) Taken 05/29/20242000 by Destiny Miguel, security inspector Interventions: medication (see MAR) cold applied Problem: Electrolyte Imbalance Goal: Electrolyte Balance Outcome: Progressing AGENT * Pharmacy-Admission Medication History - Cale Giron [facility] - 05/29/2024 5:55 PM CST Pharmacist Admission Medication History Admission medication history is complete. The information provided in this note is only as accurateas the sources available at the time of the update. Information Source(s): Patient via in-person Pertinent Information: Changes made to SOFTWARE IMPLEMENTATION PROJECT MANAGER medication list: Added: None Deleted: None Changed: Spironolactone - from 50mg bid to 50mg qhs Allergies reviewed with patient and updates made in EHR: no Medication History Completed By: Cale Giron Naya 05/29/2024 5:55 PM SOFTWARE IMPLEMENTATION PROJECT MANAGER Med List Medication Sig Last Dose/Taking albuterol [...] needed for severe pain. Taking As Needed AGENT documented in this encounter Plan of Treatment Upcoming Encounters Date Type Department Care Team (Late st Contact Info) Description 07/09/2024 11:00 AM LIFE AGENT Virtual Visit [facility] [address] [facility] [address] [address] [place] [address] [place] [address] [facility] [address] [place], [place] [address] documented as of this encounter Procedures Procedure Name Priority Date/Time Associated Diagnosis Comments PHOSPHORUS Timed 05/31/2024 5:[address] KNEE LEFT W/O CONTRAST Routine 05/31/2024 2:33 PM LIFE AGENT PHOSPHORUS Routine 05/31/2024 8:35 AM LIFE AGENT PARATHYROID HORMONE INTACT Routine 05/31/2024 8:35 AM LIFE AGENT MAGNESIUM Routine 05/31/2024 8:35 AM LIFE AGENT COMPREHENSIVE METABOLIC PANEL Routine 05/31/2024 8:35 AM LIFE AGENT AMMONIA Routine 05/31/2024 8:35 AM LIFE AGENT EKG 12-LEAD, TRACING ONLY Routine 05/30/2024 11:41 AM LIFE AGENT POTASSIUM Timed 05/30/2024 10:08 AM LIFE AGENT PHOSPHORUS Routine 05/30/2024 8:02 AM LIFE AGENT MAGNESIUM Routine 05/30/2024 8:02 AM LIFE AGENT BASIC METABOLIC PANEL Timed 05/30/2024 8:02 AM LIFE AGENT CBC WITH PLATELETS Routine 05/30/2024 8: 02 AM LIFE AGENT POTASSIUM Timed 05/30/2024 4:25 AM LIFE AGENT BASIC METABOLIC PANEL Timed 05/29/2024 10:00 PM LIFE AGENT POTASSIUM STAT 05/29/2024 4:50 PM LIFE AGENT PHOSPHORUS Add-On 05/29/2024 4:50 PM LIFE AGENT XR ANKLE LEFT G/E 3 VIEWS STAT 05/29/2024 4:02 PM LIFE AGENT XR KNEE LEFT 3 VIEWS STAT 05/29/2024 4:02 PM LIFE AGENT EXTRA TUBE STAT 05/29/2024 2:41 PM LIFE AGENT EXTRA RED TOP TUBE STAT 05/29/2024 2: 41 PM LIFE AGENT EXTRA BLUE TOP TUBE STAT 05/29/2024 2 :41 PM LIFE AGENT TSH WITH FREE T4 REFLEX STAT 05/29/2024 2:41 PM LIFE AGENT SODIUM RANDOM URINE STAT 05/29/2024 2 :41 PM LIFE AGENT ROUTINE UA WITH MICROSCOPIC STAT 05/29/2024 2:41 PM LIFE AGENT PROTEIN RANDOM URINE STAT 05/29/2024 2:41 PM LIFE AGENT POTASSIUM RANDOM URINE STAT 2:41 PM LIFE AGENT ALBUMIN RANDOM URINE QUANTITATIVE STAT 05/29/2024 2:41 PM LIFE AGENT MAGNESIUM STAT 05/29/2024 2:41 PM LIFE AGENT COMPREHENSIVE METABOLIC PANEL STAT 05/29/2024 2:41 PM LIFE AGENT CHLORIDE RANDOM URINE STAT 05/29/2024 2:41 PM LIFE AGENT BLOOD GAS VENOUS STAT 05/29/2024 2:41 PM LIFE AGENT CBC WITH PLATELETS STAT 05/29/2024 2: 41 PM LIFE AGENT EKG 12-LEAD, TRACING ONLY STAT 05/29/2024 2:10 PM LIFE AGENT documented in this encounter Results * (ABNORMAL) Phosphorus (05/31/2024 5:27 PM LIFE AGENT) Phosphorus 2.2(L) 2.5 - 4.5 mg/dL 05/31/2024 5:51 PM LIFE AGENT [facility] Blood STRUCTURE OF LEFT HAND / Unknown Venipuncture / Unknown 05/31/2024 5:27 PM LIFE AGENT 05/31/2024 5:32 PM LIFE AGENT us Emeterio Solorzano MD LAB - BLOOD ORDER ISHMAEL Final Result [facility] Acute Care Lab [address] (1st floor, no room number) [place] [address], [facility] * CT Knee Left w/o Contrast (05/31/2024 2:33 PM LIFE AGENT) Anatomical Region Laterality Modality Left Knee, SUBRAD CT MSK, UMP CT MSK, RAD CT Computed Tomography 05/31/2024 2:33 PM LIFE AGENT Impressions 05/31/2024 2:41 PM LIFE AGENT IMPRESSION: 1. No evidence for acute left knee fracture. Normal joint spacing and alignment. 2. Trace joint effusion. Narrative 05/31/2024 2:41 PM LIFE AGENT EXAM: CT KNEE LEFT W/O CONTRAST LOCATION: [facility] DATE: 05/31/2024 INDICATION: syncope with [...] EXAM: CT KNEE LEFT W/O CONTRAST LOCATION: [facility] DATE: 05/31/2024 INDICATION: syncope with [...] * Parathyroid Hormone Intact (05/31/2024 8:35 AM LIFE AGENT) Parathyroid Hormone Intact 22 15 - 65 pg/mL 05/31/2024 9:08 AM LIFE AGENT LABORATORY Blood STRUCTURE OF LEFT HAND / Unknown Venipuncture / Unknown 05/31/2024 8:35 AM LIFE AGENT 05/31/2024 8:44 AM LIFE AGENT Narrative [facility] - 05/31/2024 9:08 AM LIFE AGENT This result was obtained with the Kail[employer] Elecsys PTH STAT assay. This reference range differs from PTH assays used in other [facility] laboratories. Sean Freeman MD LAB - BLOOD ORDERABLES Final Result [facility] Care [facility] [address] Lab (1st floor, no room number) [address] [place] [address] * (ABNORMAL) Phosphorus (05/31/2024 8:35 AM LIFE AGENT) Phosphorus 1.8(L) 2.5 - 4.5 mg/dL 05/31/2024 9:07 AM LIFE AGENT LABORATORY Blood STRUCTURE OF LEFT HAND / Unknown Venipuncture / Unknown 05/31/2024 8:35 AM LIFE AGENT 05/31/2024 8:44 AM LIFE AGENT Sean Freeman MD LAB - BLOOD ORDERABLES Final Result [facility] Care Lab [address] Lab (1st floor, no room number) [place] [id number] * Magnesium (05/31/2024 8:35 AM LIFE AGENT) Magnesium 1.9 1.7 - 2.3 mg/dL 05/31/2024 9:07 AM LIFE AGENT LABORATORY Blood STRUCTURE OF LEFT HAND / Unknown Venipuncture / Unknown 05/31/2024 8:35 AM LIFE AGENT 05/31/2024 8:44 AM LIFE AGENT us Sean Freeman MD LAB - BLOOD ORDERABLES Final Result LABORATORY [facility] Acute Care Lab [address] Lab (1st floor, no room number) [place] [address], [facility] * (ABNORMAL) Comprehensive metabolic panel (05/31/2024 8:35 AM LIFE AGENT) Sodium 141 135 - 145 mmol/L 05/31/2024 9:07 AM [facility] Potassium 4.2 3.4 - 5.3 mmol/L 05/31/2024 9:07 AM [facility] Carbon Dioxide (CO2) 35(H) 22 - 29 mmol/L 05/31/2024 9:07 AM [facility] Anion Gap 10 7 - 15 mmol/L 05/31/2024 9:07 AM [facility] Urea Nitrogen 31.3(H) 6.0 - 20.0 mg/dL 05/31/2024 9:07 AM [facility] Creatinine 1.99(H) 0.51 - 0.95 mg/dL 05/31/2024 9:07 AM [facility] GFR Estimate 33(L) >60 mL/min/1.7 3m2 05/31/2024 9:07 AM [facility] Comment:eGFR calculated usny 2020 CKD-EPI equation. Calcium 10.2 8.8 - 10.4 mg/dL 05/31/2024 9:07 AM [facility] Comment:Reference intervals for this test were updated on 01/08/2024 to reflect our healthy population more accurately. There may be differences in the flagging of prior results with similar values performed with this method. Those prior results can be interpreted in the context of the updated reference intervals. Chloride 96(L) 98 - 107 mmol/L 05/31/2024 9:07 AM [facility] Glucose 126(H) 70 - 99 mg/dL 05/31/2024 9:07 AM [facility] Alkaline Phosphatase 75 40 - 150 U/L 05/31/2024 9:07 AM [facility] AST 22 0 - 45 U/L 05/31/2024 9:07 AM [facility] ALT 12 0 - 50 U/L 05/31/2024 9:07 AM LIFE AGENT [facility] Protein Total 6.8 6.4 - 8.3 g/dL 05/31/2024 9:07 AM LIFE AGENT [facility] Albumin 4.1 3.5 - 5.2 g/dL 05/31/2024 9:07 AM LIFE AGENT [facility] Bilirubin Total <0.2 <=1.2 mg/dL 05/31/2024 9:07 AM LIFE AGENT [facility] Blood STRUCTURE OF LEFT HAND / Unknown Venipuncture / Unknown 05/31/2024 8:35 AM LIFE AGENT 05/31/2024 8:44 AM LIFE AGENT Sean Freeman MD LAB - BLOOD ORDERABLES Final Result [facility] Care Lab [address] Lab (1st floor, no room number) [address] * Ammonia (05/31/2024 8:35 AM LIFE AGENT) Ammonia 20 11 - 51 umol/L 05/31/2024 9:04 AM LIFE AGENT LABORATORY Blood STRUCTURE OF LEFT HAND / Unknown Venipuncture / Unknown 05/31/2024 8:35 AM LIFE AGENT 05/31/2024 8:44 AM LIFE AGENT Sean Freeman MD LAB - BLOOD ORDERABLES Final Result [facility] [address] Lab (1st floor, no room number) [address] * EKG 12-lead, tracing only (05/30/2024 11:41 AM LIFE AGENT) Systolic Blood Pressure mmHg RADIOLOGY RESULTS Diastolic Blood Pressure mmHg RADIOLOGY RESULTS Ventricular Rate 84 BPM RAD IOLOGY RESULTS Atrial Rate 84 BPM RADIOLOG Y RESULTS DE Interval 128 ms RADIOLOG Y RESULTS QRS Duration 88 ms RADIOLO GY RESULTS QT 416 ms RADIOLOGY RESULTS QTc 491 ms RADIOLOGY RESULTS P [place] 61 degrees RADIOLOGY RESULTS R AXIS 79 degrees RADIOLOGY RESULTS T [place] 61 degrees RADIOLOGY RESULTS Interpretation ECG Sinus rhythm Non-specific ST/T abnormalities Prolonged QT Abnormal ECG Compared to prior: There have been no significant changes Confirmed by Michel Mendez ([id number]) on 06/02/2024 3:11:35 PM RADIOLOGY RESULTS 05/30/2024 11:4 1 AM LIFE AGENT 06/02/2024 3:11 PM LIFE AGENT us Azar Umanzor MD ECG ORDERABLES Edited Result - Final RADIOLOGY RESULTS * Potassium (05/30/2024 10:08 AM LIFE AGENT) Potassium 3.8 3.4 - 5.3 mmol/L 05/30/2024 10:43 AM LIFE AGENT LABORATORY Blood STRUCTURE OF LEFT HAND / Unknown Venipuncture / Unknown 05/30/2024 10:08 AM LIFE AGENT 05/30/2024 10:15 AM LIFE AGENT us Azar Umanozr MD LAB - BLOOD ORDERABLES Final Res ult Performing Organization Address [facility] Co de Phone Number [facility] Lab [address] Lab (1st floor, no room number) [address] * Phosphorus (05/30/2024 8:02 AM LIFE AGENT) Phosphorus 2.9 2.5 - 4.5 mg/dL 05/30/2024 8:30 AM LIFE AGENT LABORATORY Blood STRUCTURE OF LEFT HAND / Unknown Venipuncture / Unknown 05/30/2024 8:02 AM LIFE AGENT 05/30/2024 8:10 AM LIFE AGENT us Azar Umanzor MD LAB - BLOOD ORDERABLES Final Res ult Performing Organization Address City/[facility]/ZIP Co de Phone Number [facility] Lab [address] Lab (1st floor, no room number) [address] * Magnesium (05/30/2024 8:02 AM LIFE AGENT) Magnesium 2.2 1.7 - 2.3 mg/dL 05/30/2024 8:30 AM [facility] LABORATORY Blood STRUCTURE OF LEFT HAND / Unknown Venipuncture / Unknown 05/30/2024 8:02 AM LIFE AGENT 05/30/2024 8:10 AM LIFE AGENT Azar Umanzor MD LAB - BLOOD ORDERABLES Final Res ult LABORATORY [facility] [address] Lab (1st floor, no room number) [place] [address] * (ABNORMAL) Basic metabolic panel (05/30/2024 8:02 AM LIFE AGENT) Sodium 139 135 - 145 mmol/L 05/30/2024 8:34 AM [facility]OR[facility]ORY Potassium 3.7 3.4 - 5.3 mmol/L 05/30/2024 8:34 AM [facility] Chloride 90(L) 98 - 107 mmol/L 05/30/2024 8:34 AM [facility] Carbon Dioxide (CO2) 41(H) 22 - 29 mmol/L 05/30/2024 8:34 AM [facility] Anion Gap 8 7 - 15 mmol/L 05/30/2024 8:34 AM [facility] Urea Nitrogen 45.3(H) 6.0 - 20.0 mg/dL 05/30/2024 8:34 AM [facility] Creatinine 2.74(H) 0.51 - 0.95 mg/dL 05/30/2024 8:34 AM [facility] GFR Estimate 23(L) >60 mL/min/1.7 3m2 05/30/2024 8:34 AM [facility] Comment:eGFR calculated usin 2020 CKD-EPI equation. Calcium 10.2 8.8 - 10.4 mg/dL 05/30/2024 8:34 AM [facility] Comment:Reference intervals for this test were updated on 01/08/2024 to reflect our healthy population more accurately. There may be differences in the flagging of prior results with similar values performed with this method. Those prior results can be interpreted in the context of the updated reference intervals. Glucose 90 70 - 99 mg/dL 05/30/2024 8:34 AM LIFE AGENT RH LABORATORY Blood STRUCTURE OF LEFT HAND / Unknown Venipuncture / Unknown 05/30/2024 8:02 AM LIFE AGENT 05/30/2024 8:10 AM LIFE AGENT Azar Umanzor MD LAB - BLOOD ORDERABLES Final Res ult RH LABORATORY [facility] [address] Lab (1st floor, no room number) [place] [address] * (ABNORMAL) CBC with platelets (05/30/2024 8:02 AM LIFE AGENT) WBC Count 7.5 4.0 - 11.0 10e3/uL 05/30/2024 8:12 AM LIFE AGENT RH LABORATORY RBC Count 2.91(L) 3.80 - 5.20 10e6/uL 05/30/2024 8:12 AM LIFE AGENT [facility] LABORATORY Hemoglobin 8.0(L) 11.7 - 15.7 g/dL 05/30/2024 8:12 AM LIFE AGENT RH LABORATORY Hematocrit 24.0(L) 35.0 - 47.0 % 05/30/2024 8:12 AM LIFE AGENT RH LABORATORY MCV 83 78 - 100 fL 05/30/2024 8:12 AM LIFE AGENT RH LABORATORY MCH 27.5 26.5 - 33.0 pg 05/30/2024 8:12 AM LIFE AGENT RH LABORATORY MCHC 33.3 31.5 - 36.5 g/dL 05/30/2024 8:12 AM LIFE AGENT RH LABORATORY RDW 13.8 10.0 - 15.0 % 05/30/2024 8:12 AM LIFE AGENT RH LABORATORY Platelet Count 350 150 - 450 10e3/uL 05/30/2024 8:12 AM LIFE AGENT RH LABORATORY Blood STRUCTURE OF LEFT HAND / Unknown Venipuncture / Unknown 05/30/2024 8:02 AM LIFE AGENT 05/30/2024 8:10 AM LIFE AGENT Azar Umanzor MD LAB - BLOOD ORDERABLES Final Res ult RH LABORATORY [facility] [address] Lab (1st floor, no room number) [place] [address] * (ABNORMAL) Potassium (05/30/2024 4:25 AM LIFE AGENT) [facility] Potassium 3.2(L) 3.4 - 5.3 mmol/L 05/30/2024 4:54 AM LIFE AGENT LABORATORY Blood STRUCTURE OF LEFT HAND / Unknown Venipuncture / Unknown 05/30/2024 4:25 AM LIFE AGENT 05/30/2024 4:32 AM LIFE AGENT us Azar Umanzor MD LAB - BLOOD ORDERABLES Final Res ult LABORATORY [facility] [address] [facility] ([facility], no room number) [place] [phone] * (ABNORMAL) Basic metabolic panel (05/29/2024 10:00 PM LIFE AGENT) Pathologist [facility] Sodium 133(L) 135 - 145 mmol/L 05/29/2024 10:36 PM [facility] Potassium 2.7(L) 3.4 - 5.3 mmol/L 05/29/2024 10:36 PM [facility] Chloride 81(L) 98 - 107 mmol/L 05/29/2024 10:36 PM [facility] Carbon Dioxide (CO2) 39(H) 22 - 29 mmol/L 05/29/2024 10:36 PM [facility] Anion Gap 13 7 - 15 mmol/L 05/29/2024 10:36 PM [facility] Urea Nitrogen 47.6(H) 6.0 - 20.0 mg/dL 05/29/2024 10:36 PM [facility] Creatinine 3.02(H) 0.51 - 0.95 mg/dL 05/29/2024 10:36 PM [facility] GFR Estimate 20(L) >60 mL/min/1.7 3m2 05/29/2024 10:36 PM [facility] Comment:eGFR calculated usin 2020 CKD-EPI equation. Calcium 10.6(H) 8.8 - 10.4 mg/dL 05/29/2024 10:36 PM LIFE AGENT RH LABORATORY Comment:Reference intervals for this test were updated on 01/08/2024 to reflect our healthy population more accurately. There may be differences in the flagging of prior results with similar values performed with this method. Those prior results can be interpreted in the context of the updated reference intervals. Glucose 149(H) 70 - 99 mg/dL 05/29/2024 10:36 PM LIFE AGENT RH LABORATORY Blood STRUCTURE OF LEFT HAND / Unknown Venipuncture / Unknown 05/29/2024 10:00 PM LIFE AGENT 05/29/2024 10:12 PM LIFE AGENT us Azar Umanzor MD LAB - BLOOD ORDERABLES Final Res ult [facility] [address] [employer] Lab (1st floor, no room number) [address] * Phosphorus (05/29/2024 4:50 PM LIFE AGENT) Phosphorus 3.3 2.5 - 4.5 mg/dL 05/29/2024 6:43 PM LIFE AGENT RH LABORATORY Blood STRUCTURE OF LEFT HAND / Unknown Venipuncture / Unknown 05/29/2024 4:50 PM LIFE AGENT 05/29/2024 4:58 PM LIFE AGENT Azar Umanzor MD LAB - BLOOD ORDERABLES Final Res ult [facility] [address] Lab (1st floor, no room number) [address] * (ABNORMAL) Potassium (05/29/2024 4:50 PM LIFE AGENT) Potassium 2.4(LL) 3.4 - 5.3 mmol/L 05/29/2024 5:41 PM LIFE AGENT RH LABORATORY Blood STRUCTURE OF LEFT HAND / Unknown Venipuncture / Unknown 05/29/2024 4:50 PM LIFE AGENT 05/29/2024 4:58 PM LIFE AGENT Jamil Carlin MD LAB - BLOOD ORDERABLES Fi nal Result [facility] [address] [facility] Lab (1st floor, no room number) [place] [address] * XR Ankle Left G/E 3 Views (05/29/2024 4:02 PM LIFE AGENT) Anatomical Region Laterality Modality Leg, Ankle, Foot Left Digital Radiogr aphy Impressions 05/29/2024 4:09 PM LIFE AGENT IMPRESSION: No fracture. Intact ankle mortise and distal syndesmosis. HUSEYIN MCKEON MD SYSTEM ID: [id number] Narrative 05/29/2024 4:09 PM LIFE AGENT XR ANKLE LEFT G/E 3 VIEWS 05/29/2024 4:02 PM HISTORY: fall, ankle pain COMPARISON: None. Procedure Note Huseyin Mckeon MD - 05/29/2024 XR ANKLE LEFT G/E 3 VIEWS 05/29/2024 4:02 PM HISTORY: fall, ankle pain COMPARISON: None. IMPRESSION: No fracture. Intact ankle mortise and distal syndesmosis. HUSEYIN MCKEON MD SYSTEM ID: [id number] Jamil Carlin MD IMG DIAGNOSTIC IMAGING OR DERABLES Final Result * XR Knee Left 3 Views (05/29/2024 4:02 PM LIFE AGENT) Anatomical Region Laterality Modality Thigh, Knee, Leg Left Digital Radiogr aphy Impressions 05/29/2024 4:08 PM LIFE AGENT IMPRESSION: No fracture or malalignment. No effusion. Joint spaces are maintained. HUSEYIN MCKEON MD SYSTEM ID: [id number] Narrative 05/29/2024 4:08 PM LIFE AGENT XR KNEE LEFT 3 VIEWS 05/29/2024 4:02 PM HISTORY: fall, knee pain COMPARISON: None. Procedure Note Huseyin Mckeon MD - 05/29/2024 XR KNEE LEFT 3 VIEWS 05/29/2024 4:02 PM HISTORY: fall, knee pain COMPARISON: None. IMPRESSION: No fracture or malalignment. No effusion. Joint spaces are maintained. HUSEYIN MCKEON MD SYSTEM ID: [id number] Jamil Carlin MD IMG DIAGNOSTIC IMAGING OR DERABLES Final Result * Extra Red Top Tube (05/29/2024 2:41 PM LIFE AGENT) Hold Specimen [facility] 05/29/2024 4:16 PM LIFE AGENT LABORATORY Blood BLOOD SPECIMEN / Unknown Venipuncture / Unknown 05/29/2024 2:41 PM LIFE AGENT 05/29/2024 3:08 PM LIFE AGENT Jamil Carlin MD LAB - BLOOD ORDERABLES Fi nal Result [facility] [address] [facility] Lab (1st floor, no room number) [address] * Extra Blue Top Tube (05/29/2024 2:41 PM LIFE AGENT) Hold Specimen [facility] 05/29/2024 4:16 PM LIFE AGENT LABORATORY Blood BLOOD SPECIMEN / Unknown Venipuncture / Unknown 05/29/2024 2:41 PM LIFE AGENT 05/29/2024 3:08 PM LIFE AGENT Jamil Carlin MD LAB - BLOOD ORDERABLES Fi nal Result [facility] [address] Lab (1st floor, no room number) [address] * (ABNORMAL) Albumin Random Urine Quantitative with Creat Ratio (05/29/2024 2:41 PM LIFE AGENT) Creatinine Urine mg/dL 37.8 mg/dL 05/30/2024 4:36 AM LIFE AGENT [facility] LABORATORY Comment:The reference ranges have not been established in urine creatinine. The results should be integrated into the clinical context for interpretation. Albumin Urine mg/L 165.0 mg/L 2023 4:36 AM LIFE AGENT [facility] LABORATORY Comment:The reference ranges have not been established in urine albumin. The results should be integrated into the clinical context for interpretation. Albumin Urine mg/g Cr 436.51(H) 0.00 - 25.00 mg/g Cr 05/30/2024 4:36 AM LIFE AGENT [facility] LABORATORY Comment: Microalbuminuria is defined as [...] control, and institution of therapy with an asnaxbcycqy-nrhjgsjhlt-jswziy (SARANYA) inhibitor (if the patient can tolerate it). Urine URINE SPECIMEN OBTAINED BY CLEAN CATCH PROCEDURE / Unknown Non-blood Collection / Unknown 05/29/2024 2:41 PM LIFE AGENT 05/29/2024 3:18 PM LIFE AGENT Jamil Carlin MD LAB - URINE ORDERABLES Fi nal Result [facility]U LABORATORY [facility] Lab [address] [facility], Room [address] [place] [phone] * (ABNORMAL) UA with Microscopic (05/29/2024 2:41 PM LIFE AGENT) Color Urine Light Yellow Colorless, Straw, Light Yellow, Yellow 05/29/2024 3:29 PM LIFE AGENT LABORATORY Appearance Urine Clear Clear 05/29/20 24 3:29 PM LIFE AGENT LABORATORY Glucose Urine Negative Negative mg/dL 05/29/2024 3:29 PM LIFE AGENT RH LABORATORY Bilirubin Urine Negative Negative 4 3:29 PM LIFE AGENT RH LABORATORY Ketones Urine Negative Negative mg/dL 05/29/2024 3:29 PM LIFE AGENT LABORATORY Specific [place] Urine 1.010 1.003 - 1.035 05/29/2024 3:29 PM LIFE AGENT RH LABORATORY Blood Urine Negative Negative 05/29/2024 3:29 PM LIFE AGENT LABORATORY pH Urine 8.0(H) 5.0 - 7.0 05/29/2024 3:29 PM LIFE AGENT LABORATORY Protein Albumin Urine 50(A) Negative mg/dL 05/29/2024 3:29 PM LIFE AGENT LABORATORY Urobilinogen Urine Normal Normal, 2.0 mg/dL 05/29/2024 3:29 PM LIFE [facility]ENT LABORATORY Nitrite Urine Negative Negative 05/29/2024 3:29 PM LIFE [facility]ENT LABORATORY Leukocyte Esterase Urine Negative Negative 05/29/2024 3:29 PM LIFE AGENT LABORATORY Bacteria Urine Few(A) None Seen /HPF 05/29/2024 3:29 PM LIFE AGENT LABORATORY RBC Urine 1 <=2 /HPF 05/29/2024 3:29 PM LIFE AGENT LABORATORY WBC Urine 2 <=5 /HPF 05/29/2024 3:29 PM LIFE AGENT LABORATORY Squamous Epithelials Urine <1 <=1 /HPF 05/29/2024 3:29 PM LIFE AGENT LABORATORY Hyaline Casts Urine 3(H) <=2 /LPF 05/29/2024 3:29 PM LIFE AGENT LABORATORY Urine URINE SPECIMEN OBTAINED BY CLEAN CATCH PROCEDURE / Unknown Non-blood Collection / Unknown 05/29/2024 2:41 PM LIFE AGENT 05/29/2024 3:19 PM LIFE AGENT us Jamil Carlin MD LAB - URINE ORDERABLES Fi nal Result LABORATORY [facility] [address] [facility] Lab (1st floor, no room number) [place] [address], [facility] * (ABNORMAL) Protein random urine (05/29/2024 2:41 PM LIFE AGENT) Total Protein Urine mg/dL 44.4 mg/dL 05/29/2024 3:50 PM LIFE AGENT LABORATORY Comment:The reference ranges have not been established in urine protein. The results should be integrated into the clinical context for interpretation. Total Protein Urine mg/mg Creat 1.14(H) 0.00 - 0.20 mg/mg Cr 05/29/2024 3:50 PM LIFE AGENT LABORATORY Creatinine Urine mg/dL 38.9 mg/dL 05/29/2024 3:50 PM LIFE AGENT LABORATORY Comment:The reference ranges have not been established in urine creatinine. The results should be integrated into the clinical context for interpretation. Urine URINE SPECIMEN OBTAINED BY CLEAN CATCH PROCEDURE / Unknown Non-blood Collection / Unknown 05/29/2024 2:41 PM LIFE AGENT 05/29/2024 3:18 PM LIFE AGENT Jamil Carlin MD LAB - URINE ORDERABLES Fi nal Result [facility] [address] [facility] Lab (1st floor, no room number) [place] [address] * Chloride random urine (05/29/2024 2:41 PM LIFE AGENT) Chloride Urine mmol/L <20 mmol/L 05/30/2024 4:48 AM LIFE AGENT [facility] LAB[facility]ATORY Comment:The reference ranges have not been established in urine chloride. The results should be integrated into the clinical context for interpretation. Urine URINE SPECIMEN OBTAINED BY CLEAN CATCH PROCEDURE / Unknown Non-blood Collection / Unknown 05/29/2024 2:41 PM LIFE AGENT 05/29/2024 3:18 PM LIFE AGENT Jamil Carlin MD LAB - URINE ORDERABLES Fi nal Result Performing Organization Address City/[facility] Co de Phone Number UU LABORATORY [facility] [place] [facility] [address] [facility], [address] [phone] * Potassium random urine (05/29/2024 2:41 PM LIFE AGENT) Potassium Urine 44.8 mmol/L 4:36 AM LIFE AGENT [facility] LABORATORY Comment:The reference ranges have not been established in urine potassium. The results should be integrated into the clinical context for interpretation. Urine URINE SPECIMEN OBTAINED BY CLEAN CATCH PROCEDURE / Unknown Non-blood Collection / Unknown 05/29/2024 2:41 PM LIFE AGENT 05/29/2024 3:18 PM LIFE AGENT Jamil Carlin MD LAB - URINE ORDERABLES Fi nal Result [facility] LABORATORY [facility] [place] [facility] [address] [facility], [address] [place] [address] * Sodium random urine (05/29/2024 2:41 PM LIFE AGENT) Sodium Urine mmol/L 44 mmol/L 05/29/2024 3:50 PM LIFE AGENT LABORATORY Comment:The reference ranges have not been established in urine sodium. The results should be integrated into the clinical context for interpretation. Urine URINE SPECIMEN OBTAINED BY CLEAN CATCH PROCEDURE / Unknown Non-blood Collection / Unknown 05/29/2024 2:41 PM LIFE AGENT 05/29/2024 3:18 PM LIFE AGENT Jamil Carlin MD LAB - URINE ORDERABLES Fi nal Result Performing Organization Address [facility]/ZIP Co de Phone Number [facility] [address] Lab (1st floor, no room number) [place] [phone] * TSH with free T4 reflex (05/29/2024 2:41 PM LIFE AGENT) TSH 1.95 0.30 - 4.20 uIU/mL 05/29/2024 3:37 PM LIFE AGENT LABORATORY Blood BLOOD SPECIMEN / Unknown Venipuncture / Unknown 05/29/2024 2:41 PM LIFE AGENT 05/29/2024 3:08 PM LIFE AGENT Jamil Carlin MD LAB - BLOOD ORDERABLES Fi nal Result [facility] [address] Lab (1st floor, no room number) [place] [phone] * (ABNORMAL) Magnesium (05/29/2024 2:41 PM LIFE AGENT) Magnesium 2.4(H) 1.7 - 2.3 mg/dL 05/29/2024 3:31 PM LIFE AGENT LABORATORY Blood BLOOD SPECIMEN / Unknown Venipuncture / Unknown 05/29/2024 2:41 PM LIFE AGENT 05/29/2024 3:08 PM LIFE AGENT Jamil Carlin MD LAB - BLOOD ORDERABLES Fi nal Result RH LABORATORY [facility] Lab [address] Lab (1st floor, no room number) [place] [address], [facility] * (ABNORMAL) Comprehensive metabolic panel (05/29/2024 2:41 PM LIFE AGENT) [facility] Sodium 130(L) 135 - 145 mmol/L 05/29/2024 4:02 PM [facility]ATORY Potassium 3.5 3.4 - 5.3 mmol/L 05/29/2024 4:02 PM [facility] Comment:Specimen slightly he molyzed. The reported potassium value may be falsely elevated. Analysis of a non-hemolyzed specimen (i.e. re-draw) may result in a lower potassium value. Carbon Dioxide (CO2) 49(HH) 22 - 29 mmol/L 05/29/2024 4:02 PM [facility] Anion Gap 12 7 - 15 mmol/L 05/29/2024 4:02 PM [facility] Urea Nitrogen 52.2(H) 6.0 - 20.0 mg/dL 05/29/2024 4:02 PM [facility] Creatinine 3.05(H) 0.51 - 0.95 mg/dL 05/29/2024 4:02 PM [facility] GFR Estimate 20(L) >60 mL/min/1.7 3m2 05/29/2024 4:02 PM [facility] Comment:eGFR calculated usin g 2020 CKD-EPI equation. Calcium 13.8(H) 8.8 - 10.4 mg/dL 05/29/2024 4:02 PM [facility] Comment:Reference intervals for this test were updated on 01/08/2024 to reflect our healthy population more accurately. There may be differences in the flagging of prior results with similar values performed with this method. Those prior results can be interpreted in the context of the updated reference intervals. Chloride 69(L) 98 - 107 mmol/L 05/29/2024 4:02 PM [facility] Glucose 124(H) 70 - 99 mg/dL 05/29/2024 4:02 PM LIFE [facility]ENT LABORATORY Alkaline Phosphatase 88 40 - 150 U/L 05/29/2024 4:02 PM LIFE [facility]ENT LABORATORY AST 37 0 - 45 U/L 05/29/2024 4:02 PM [facility] Comment:Specimen is hemolyze d which can falsely elevate AST. Analysis of a non-hemolyzed specimen may result in a lower value. ALT 12 0 - 50 U/L 05/29/2024 4:02 PM LIFE [facility]ENT LABORATORY Protein Total 8.8(H) 6.4 - 8.3 g/dL 05/29/2024 4:02 PM LIFE [facility]ENT LABORATORY Albumin 5.1 3.5 - 5.2 g/dL 05/29/2024 4:02 PM [facility] Bilirubin Total 0.3 <=1.2 mg/dL 05/29/2024 4:02 PM LIFE [facility]ENT LABORATORY Blood BLOOD SPECIMEN / Unknown Venipuncture / Unknown 05/29/2024 2:41 PM LIFE AGENT 05/29/2024 3:08 PM LIFE AGENT us Jamil Carlin MD LAB - BLOOD ORDERABLES Fi nal Result LABORATORY [facility] [address] [facility] Lab (1st floor, no room number) [place] [address], [facility] * (ABNORMAL) CBC with platelets (05/29/2024 2:41 PM LIFE AGENT) WBC Count 9.0 4.0 - 11.0 10e3/uL 05/29/2024 3:13 PM [facility]ENT LABORATORY RBC Count 3.96 3.80 - 5.20 10e6/uL 05/29/2024 3:13 PM [facility]ENT LABORATORY Hemoglobin 10.7(L) 11.7 - 15.7 g/dL 05/29/2024 3:13 PM [facility]ENT LABORATORY Hematocrit 31.9(L) 35.0 - 47.0 % 05/29/2024 3:13 PM LIFE AGENT LABORATORY MCV 81 78 - 100 fL 05/29/2024 3:13 PM LIFE AGENT LABORATORY MCH 27.0 26.5 - 33.0 pg 05/29/2024 3:13 PM LIFE AGENT [facility] LABORATORY MCHC 33.5 31.5 - 36.5 g/dL 05/29/2024 3:13 PM LIFE AGENT [facility] LABORATORY RDW 13.3 10.0 - 15.0 % 05/29/2024 3:13 PM LIFE AGENT [facility] LABORATORY Platelet Count 575(H) 150 - 450 10e3/uL 05/29/2024 3:13 PM LIFE AGENT [facility] LABORATORY Blood BLOOD SPECIMEN / Unknown Venipuncture / Unknown 05/29/2024 2:41 PM LIFE AGENT 05/29/2024 3:08 PM LIFE AGENT us Jamil Carlin MD LAB - BLOOD ORDERABLES Fi nal Result RH LABORATORY [facility] [address] Lab (1st floor, no room number) [place] [address], [facility] * (ABNORMAL) Blood gas venous (05/29/2024 2:41 PM LIFE AGENT) pH Venous 7.56(H) 7.32 - 7.43 05/29/2024 3:27 PM LIFE AGENT [facility] LAB[facility]ATORY pCO2 Venous 71(H) 40 - 50 mm Hg 05/29/2024 3:27 PM LIFE AGENT [facility] LAB[facility]ATORY pO2 Venous 38 25 - 47 mm Hg 05/29/2024 3:27 PM LIFE AGENT [facility] Bicarbonate Venous >45(HH) 21 - 28 mmol/L 05/29/2024 3:27 PM LIFE AGENT [facility] LAB[facility]AT[facility] Base Excess/Deficit Venous 05/29/2024 3:27 PM LIFE AGENT [facility] LAB[facility] Comment:hide FIO2 21 RUKHSANA 05/29/2024 3:27 PM LIFE AGENT [facility] LAB[facility]AT[facility] Oxyhemoglobin Venous 67(L) 70 - 75 % 05/29/2024 3:27 PM LIFE AGENT [facility] O2 Sat, Venous 67.1(L) 70.0 - 75.0 % 05/29/2024 3:27 PM LIFE AGENT [facility] LAB[facility]ATORY Blood, venous BLOOD SPECIMEN / Unknown Venipuncture / Unknown 05/29/2024 2:41 PM LIFE AGENT 05/29/2024 3:08 PM LIFE AGENT Narrative [facility] LABORATORY - 05/29/2024 3:27 PM LIFE AGENT In healthy individuals, oxyhemoglobin (O2Hb) and oxygen saturation (SO2) are approximately equal. In the presence of dyshemoglobins, oxyhemoglobin can be considerably lower than oxygen saturation. us Jamil Carlin MD LAB - BLOOD ORDERABLES Fi nal Result Performing Organization Address [facility]/ZIP Co de Phone Number LABORATORY [facility] Lab [address] Lab (1st floor, no room number) [place] [address] * EKG 12 lead (05/29/2024 2:10 PM LIFE AGENT) Systolic Blood Pressure mmHg RADIOLOGY RESULTS Diastolic Blood Pressure mmHg RADIOLOGY RESULTS Ventricular Rate 83 BPM RAD IOLOGY RESULTS Atrial Rate 83 BPM RADIOLOG Y RESULTS DE Interval 128 ms RADIOLOG Y RESULTS QRS Duration 96 ms RADIOLO GY RESULTS QT 424 ms RADIOLOGY RESULTS QTc 498 ms RADIOLOGY RESULTS P [place] 61 degrees RADIOLOGY RESULTS R AXIS 85 degrees RADIOLOGY RESULTS T [place] 80 degrees RADIOLOGY RESULTS Interpretation ECG Sinus rhythm Nonspecific ST abnormality QTcB >= 480 msec Abnormal ECG When compared with ECG of 15-May-2024 14:12, T wave inversion no longer evident in Inferior leads T wave inversion no longer evident in Anterior leads Confirmed by - EMERGENCY ROOM, PHYSICIAN ([id number]), editor book LUPE VILLAGOMEZ ([id number]) on 05/29/2024 3:24:01 PM RADIOLOGY RESULTS 05/29/2024 2:10 PM LIFE AGENT 05/29/2024 3:24 PM LIFE AGENT us Jamil Carlin MD ECG ORDERABLES Edited Re sult - Final Performing Organization Address [facility] Co de Phone Number RADIOLOGY RESULTS [...] exceed 4 grams/day. $Given 05/29/2024 3:49 PM LIFE AGENT 975 mg acetaminophen (TYLENOL) tablet 975 mg 975 mg, Oral, EVERY 8 HOURS, First dose (after last reorder) on Sun05/30/24 at 1200, Maximum acetaminophen dose from all sources = 75 mg/kg/day not to exceed 4 grams/day. $Given 05/31/2024 12:20 PM LIFE AGENT 975 mg $Given 05/31/2024 4:18 AM LIFE AGENT 975 mg $Given 05/30/2024 7:41 PM LIFE AGENT 975 mg cetirizine (zyrTEC) tablet 10 mg 10 mg, Oral, AT BEDTIME, First dose on Sun05/30/24 at 2200, Does not prolong QT-c, indication inflammatory pain $Given 05/30/2024 10:15 PM LIFE AGENT 10 mg dextrose 5% and 0.9% NaCl + KCL 20 mEq/L infusion at 125 mL/hr, Intravenous, CONTINUOUS, Starting on Sun05/30/24 at 1300, Until 05/31/24 at 1958 $New Bag 05/31/2024 4:01 PM LIFE AGENT 125 mL/hr $New Bag 05/31/2024 3:32 AM LIFE AGENT 125 mL/hr Rate/Dose Verify 05/30/2024 7:42 PM LIFE AGENT 125 mL/ hr diclofenac (VOLTAREN) 1 % [...] intended for discharge $Given 05/31/2024 12:20 PM LIFE AGENT 100 mg $Given 05/31/2024 8:26 AM LIFE AGENT 100 mg $Given 05/30/2024 12:32 PM LIFE AGENT 100 mg gabapentin (NEURONTIN) capsule 300 mg 300 mg, Oral, 2 TIMES DAILY, First dose on Sun05/30/24 at 0800, hold for sedation, $Given 05/31/2024 12:19 PM LIFE AGENT 300 mg $Given 05/31/2024 8:25 AM LIFE AGENT 300 mg $Given 05/30/2024 12:32 PM LIFE AGENT 300 mg gabapentin (NEURONTIN) capsule 400 mg 400 mg, Oral, AT BEDTIME, First dose on Emiliana 05/29/24 at 2200, hold for sedation $Given 05/30/2024 10:14 PM LIFE AGENT 400 mg $Given 05/29/2024 10:16 PM LIFE AGENT 400 mg HYDROmorphone (PF) (DILAUDID) injection 0.3 mg 0.3 mg, Intravenous, ONCE, On Sun05/30/24 at 1130, For 1 dose $Given 05/30/2024 11:52 AM LIFE AGENT 0.3 mg HYDROmorphone (PF) (DILAUDID) injection 0.5 mg 0.5 mg, Intravenous, EVERY 15 MIN PRN, severe pain, Starting on Emiliana 05/29/24 at 1717, For 3 doses $Given 05/29/2024 5:46 PM LIFE AGENT 0.5 mg hydrOXYzine HCl (ATARAX) tablet 25 [...] 05/29/24 at 1848 $Given 05/30/2024 8:26 AM LIFE AGENT 50 mg $Given 05/29/2024 8:01 PM LIFE AGENT 50 mg hydrOXYzine HCl (ATARAX) tablet 50 [...] post injection. $Patch/Med Applied 05/30/2024 12:51 AM LIFE AGENT 1 patch Other (see comments) Lidocaine (LIDOCARE) [...] Sun05/29/24 at 1930 $Given 05/31/2024 12:20 PM LIFE AGENT 400 mg $Given 05/31/2024 8:26 AM LIFE AGENT 400 mg $Given 05/30/2024 6:48 PM LIFE AGENT 400 mg magnesium oxide (MAG-OX) tablet 400 mg 400 mg, Oral, 2 TIMES DAILY, First dose (after last modification) on Sun05/31/24 at 2100 methocarbamol (ROBAXIN) tablet 750 mg 750 mg, Oral, 4 TIMES DAILY PRN, muscle spasms, Starting on Sun05/29/24 at 1848 $Given 05/30/2024 9:56 AM LIFE AGENT 750 mg methocarbamol (ROBAXIN) tablet 750 mg 750 mg, Oral, 3 TIMES DAILY PRN, muscle spasms, Starting on Sun05/30/24 at 1148 $Given 05/30/2024 8:47 PM LIFE AGENT 750 mg naloxone (NARCAN) injection 0.2 mg [...] For 1 dose $Given 05/29/2024 3:49 PM LIFE AGENT 10 mg oxyCODONE (ROXICODONE) tablet 5-10 mg 5-10 mg, Oral, EVERY 6 HOURS PRN, severe pain, Starting on Emiliana 05/29/24 at 1848 $Given 05/30/2024 9:28 AM LIFE AGENT 10 mg $Given 05/30/2024 3:46 AM LIFE AGENT 10 mg $Given 05/29/2024 9:43 PM LIFE AGENT 10 mg oxyCODONE IR (ROXICODONE) half-tab 2.5 mg 2.5 mg, Oral, EVERY 6 HOURS PRN, severe pain, Starting on Sun05/31/24 at 0900, For 2 doses $Given 05/31/2024 4:47 PM LIFE AGENT 2.5 mg oxyCODONE IR (ROXICODONE) half-tab 7.5 mg 7.5 mg, Oral, EVERY 6 HOURS PRN, severe pain, Starting on Sun05/30/24 at 1130, For 4 doses $Given 05/31/2024 10:24 AM LIFE AGENT 7.5 mg $Given 05/31/2024 4:18 AM LIFE AGENT 7.5 mg $Given 05/30/2024 10:15 PM LIFE AGENT 7.5 mg potassium chloride (KLOR-CON) Packet 40 mEq 40 mEq, Oral, ONCE, On [facility] 05/29/24 at 1745, For 1 dose, Dissolve packet contents in 4-8 ounces of cold water or juice. $Given 05/29/2024 6:14 PM LIFE AGENT 40 mEq potassium chloride 10 mEq in 100 mL sterile water infusion 10 mEq, Intravenous, Administer over 60 Minutes, at 100 mL/hr, ONCE, On Emiliana 05/29/24 at 1745, For 1 dose $New Bag 05/29/2024 6:10 PM LIFE AGENT 10 mEq 100 mL/hr potassium chloride deanne ER (KLOR-CON M20) CR tablet 20 mEq 20 mEq, Oral, ONCE, On Sun05/30/24 at 0530, For 1 dose, Potassium level 3.1 - 3.4 mmol/L Ordered from the Potassium replacement order set. DO NOT CRUSH, Potassium Replacement: Potassium level 3.1-3.4 mmol/L, Recheck: Potassium level 4 hours AFTER last oral dose $Given 05/30/2024 5:24 AM LIFE AGENT 20 mEq potassium chloride deanne ER (KLOR-CON M20) CR tablet 40 mEq 40 mEq, Oral, 4 TIMES DAILY, First dose on Emiliana 05/29/24 at 2000, DO NOT CRUSH $Given 05/31/2024 12:20 PM LIFE AGENT 40 mEq $Given 05/31/2024 8:25 AM LIFE AGENT 40 mEq $Given 05/30/2024 7:41 PM LIFE AGENT 40 mEq potassium chloride deanne ER (KLOR-CON M20) CR tablet 40 mEq 40 mEq, Oral, ONCE, On Emiliana 05/29/24 at 2330, For 1 dose, Potassium level 2.7 - 3 mmol/L Ordered from the Potassium replacement order set. DO NOT CRUSH, Potassium Replacement: Potassium level 2.7-3 mmol/L, Recheck: Potassium level 4 hours AFTER last oral dose $Given 05/29/2024 11:05 PM LIFE AGENT 40 mEq potassium chloride deanne ER (KLOR-CON [...] level next AM $Given 05/30/2024 8:47 PM LIFE AGENT 10 mEq senna-docusate (SENOKOT-S/PERICOLACE) 8.6-50 MG per [...] IV dormant line $Given 05/31/2024 10:27 AM LIFE AGENT 3 mLs $Given 05/31/2024 3:35 AM LIFE AGENT 3 mLs sodium chloride (PF) 0.9% PF flush 3 mL 3 mL, Intracatheter, EVERY 1 MIN PRN, line flush, other, to ensure patency or to lock dormant line, Starting on Sun05/29/24 at 1848 $Given 05/30/2024 7:4 3 PM LIFE AGENT 3 mLs $Given 05/29/2024 7:34 PM LIFE AGENT 3 mLs sodium chloride 0.9 % infusion at 100 mL/hr, Intravenous, CONTINUOUS, Starting on Sun05/29/24 at 1850, Until Sun05/30/24 at 1254 $New Bag 05/30/2024 5:26 AM LIFE AGENT 100 mL/hr $New Bag 05/29/2024 8:45 PM LIFE AGENT 100 mL/hr sodium chloride 0.9% BOLUS 1,000 mL Intravenous, 1,000 mL, ONCE, at 1,000 mL/hr, Administer over 1 Hours, On Emiliana 05/29/24 at 1620, For 1 dose $New Bag 05/29/2024 4:33 PM LIFE AGENT 1,000 mLs 1000 mL/hr sodium chloride 0.9% BOLUS 1,000 mL Intravenous, 1,000 mL, ONCE, at 1,000 mL/hr, Administer over 1 Hours, On Emiliana 05/29/24 at 1750, For 1 dose $New Bag 05/29/2024 7:32 PM LIFE AGENT 1,000 mLs 1000 mL/hr sodium phosphate 15 [...] of infusion $New Bag 05/31/2024 10:25 AM LIFE AGENT 15 mmol traMADol (ULTRAM) tablet 50 mg 50 mg, Oral, EVERY 6 HOURS PRN, moderate pain, Starting on Sun05/30/24 at 1129, Limit 200 mg per day $Given 05/31/2024 4:01 PM LIFE AGENT 50 mg $Given 05/31/2024 9:36 AM LIFE AGENT 50 mg $Given 05/31/2024 3:38 AM LIFE AGENT 50 mg documented in this encounter Active and Recently Administered Medications Times are shown in LIFE AGENT. Scheduled Medication Order 05/29/2024 05/30/2024 05/31/2024 acetaminophen [...] Bailey Lloyd RN)1941 ($Given - Provider: Laura Peralta, RN) 0825 ($Given - Provider: Bailey Lloyd RN)1220 ($Given - Provider: Bailey Llyod RN) potassium chloride deanne ER (KLOR-CON M20) [...] 2 MIN PRN, opioid reversal, Starting on [facility] 05/29/24 at 1917, Administer intravenous route [...] 2 MIN PRN, opioid reversal, Starting on [facility] 05/29/24 at 1917, Administer intravenous route [...] 2 MIN PRN, opioid reversal, Starting on [facility] 05/29/24 at 1917, Administer intramuscular if [...] 6 HOURS PRN, severe pain, Starting on [facility] 05/31/24 at 0900, For 2 doses Group [...] stools. documented in this encounter Care Teams Environmental Attorney Relationship Specialty [place] [address] [place] [address] PCP - General 03/07/24 documented as of this encounter
--- OUTSIDE RECORDS SUMMARY | 2024-07-08 19:39 | XMS_ITS | Encounter Summary ---
[facility] Address [address], [place] [address] Care Team Providers Care Painter Sign Maintenance Name Role Phone Leyda SANTOS MD, Mary Torres Primary Care Provider [phone]- [phone] Encounter Details Date Type Department Care Team (Late st Contact Info) Description 03/13/2016 Consent for Procedure/Treatme nt [facility] Department INFORMED CONSENT RECORD Social History [...] on filedocumented in this encounter Care Teams Painter Sign Maintenance Relationship Specialty Start Date End Date Mary Crabtree III, MD [address] [place] [address] PCP - General Family Practice 03/31/15 documented as of this encounter
--- OUTSIDE RECORDS SUMMARY | 2024-07-08 19:39 | XMS_ITS | Encounter Summary ---
Author Organization [facility] Address [address] [place] [address]. [place] [address] Care Team Providers Care Director Sanitation Bureau Name Role Phone Stephon Corrales MD Primary Care Provider [phone] Gregg Corrales MD Primary Care Provider Encounter Details Date Type Department Care Team ([facility] Contact Info) Description 06/09/2021 Documentation Only INTERFACED REPORT Unknown, Provider Social History Tobacco Use Types Packs/Day Years Used Date Smoking Tobacco: Never Smokeless Tobacco: Never Alcohol Use Standard Drinks/Week Comments No 0 (1 standard drink = 0.6 oz pur e alcohol) Comments No Sex and Gender Information Value Date Recorded Sex Assigned at Not on file Legal Sex Female 4:48 AM PHOTOGRAPHIC COLORIST Gender Identity Not on file Sexual Orientation Not on file 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 No / Unsure 06/09/2021 12:49 PM PHOTOGRAPHIC COLORIST documented as of this encounter Plan of Treatment Upcoming Encounters Date Type Department Care Team ([facility] Contact Info) Description 07/09/2024 11:00 AM PHOTOGRAPHIC COLORIST Virtual Visit [facility] [place] [facility] [address],[place] [address] [place] [address] [place] [address] [place], [facility] [address] [facility] [address] [place] [address] documented as of this encounter Visit Diagnoses Not on filedocumented in this encounter Additional Health Concerns Infection Onset Date Last Indicated Resolved Time Rule Out COVID-19 04/30/2022 04/30/2022 04/30/2022 12:25 PM PHOTOGRAPHIC COLORIST Rule Out COVID-19 05/16/2022 05/16/2022 05/16/2022 6:08 PM PHOTOGRAPHIC COLORIST Rule Out C-difficile 05/16/2022 05/17/2022 022 11:51 AM PHOTOGRAPHIC COLORIST Rule Out COVID-19 07/01/2024 07/01/2024 07/01/2024 12:22 PM PHOTOGRAPHIC COLORIST documented as of this encounter Care Teams Director Sanitation Bureau Relationship Specialty Start Date End Date Stephon Corrales MD [facility] [address] [place] [address] PCP - General 02/09/21 03/06/24 [place] [address] [place] [address] PCP - General 03/07/24 documented as of this encounter
--- OUTSIDE RECORDS SUMMARY | 2024-07-08 19:39 | XMS_ITS | Encounter Summary ---
Author Organization [facility] Address [address] [address] Care Team Providers Care Slicing Machine Feeder Name Role Phone Leyda SANTOS MD, Mary Torres Primary Care Provider [phone]- [phone] Encounter Details Date Type Department Care Team [...] on filedocumented in this encounter Care Teams Slicing Machine Feeder Relationship Specialty Start Date End Date Mary Crabtree III, MD [address] [place] [address] PCP - General Family Practice 03/31/15 documented as of this encounter
--- OUTSIDE RECORDS SUMMARY | 2024-07-08 19:39 | XMS_ITS | Encounter Summary ---
Author Organization [facility] Address [address] [address] Care Team Providers Care Art Gallery Director Name Role Phone Leyda SANTOS MD, Mary Torres Primary Care Provider [phone] Encounter Details Date Type Department Care Team (Late st Contact Info) Description 02/02/2016 Consent for Procedure/Treatme nt [facility] Department INFORMED CONSENT RECORD Social History [...] on filedocumented in this encounter Care Teams Art Gallery Director Relationship Specialty Start Date End Date Mary Crabtree III, MD [address] [place] [address] PCP - General Family Practice 03/31/15 documented as of this encounter
--- OUTSIDE RECORDS SUMMARY | 2024-07-08 19:39 | XMS_ITS | Encounter Summary ---
Author Organization [facility] Address [address] [place] [address]. [place] [address] Care Team Providers Care Broker Agricultural Produce Name Role Phone Stephon Corrales MD Primary Care Provider [phone] Gregg Corrales MD Primary Care Provider Encounter Details Date Type Department Care Team ([facility] Contact Info) Description 04/27/2021 Documentation Only INTERFACED REPORT Unknown, Provider Social History Tobacco Use Types Packs/Day Years Used Date Smoking Tobacco: Never Smokeless Tobacco: Never Alcohol Use Standard Drinks/Week Comments No 0 (1 standard drink = 0.6 oz pur e alcohol) Comments No Sex and Gender Information Value Date Recorded Sex Assigned at Not on file Legal Sex Female 4:48 AM CLEANER AND PREPARER Gender Identity Not on file Sexual Orientation [...] Upcoming Encounters Date Type Department Care Team ([facility] Contact Info) Description 07/09/2024 11:00 AM CLEANER AND PREPARER Virtual Visit [facility] [address] [facility] [address] [address] [place] [address] [place] [address] [place], [address] [place] [address] documented as of this encounter Visit Diagnoses Not on filedocumented in this encounter Additional Health Concerns Infection Onset Date Last Indicated Resolved Time Rule Out COVID-19 04/30/2022 04/30/2022 04/30/2022 12:25 PM CLEANER AND PREPARER Rule Out COVID-19 05/16/2022 05/16/2022 05/16/2022 6:08 PM CLEANER AND PREPARER Rule Out C-difficile 05/16/2022 05/17/2022 022 11:51 AM CLEANER AND PREPARER Rule Out COVID-19 07/01/2024 07/01/2024 07/01/2024 12:22 PM CLEANER AND PREPARER documented as of this encounter Care Teams Broker Agricultural Produce Relationship Specialty Start Date End Date Stephon Corrales MD [facility] [address] [place] [address] PCP - General 02/09/21 03/06/24 [place] [address] [place] [address] PCP - General 03/07/24 documented as of this encounter
--- OUTSIDE RECORDS SUMMARY | 2024-07-08 19:40 | XMS_ITS | Encounter Summary ---
Author [facility] Address [address] [address] Care Team Providers Care Tester Printed Circuit Boards Name Role Phone Leyda SANTOS MD, Mary Torres Primary Care Provider [phone] Encounter Details Date Type Department Care Team [...] on filedocumented in this encounter Care Teams Tester Printed Circuit Boards Relationship Specialty Start Date End Date Mary Crabtree III, MD [address] [place] [address] PCP - General Family Practice 03/31/15 documented as of this encounter
--- OUTSIDE RECORDS SUMMARY | 2024-07-08 19:40 | XMS_ITS | Encounter Summary ---
[facility] Address [address], [place] [address] Care Team Providers Care Cushion Installer Name Role Phone Leyda SANTOS MD, Mary Torres Primary Care Provider [phone] Encounter Details Date Type Department Care Team [...] on filedocumented in this encounter Care Teams Cushion Installer Relationship Specialty Start Date End Date Mary Crabtree III, MD [address] [place] [address] PCP - General Family Practice 03/31/15 documented as of this encounter
--- OUTSIDE RECORDS SUMMARY | 2024-07-08 19:40 | XMS_ITS | Encounter Summary ---
Author Organization [facility] Address [address], [place] [address] Care Team Providers Care Coping Machine Assembler Name Role Phone Leyda SANTOS MD, Mary Torres Primary Care Provider [phone] Encounter Details Date Type Department Care Team [...] on filedocumented in this encounter Care Teams Coping Machine Assembler Relationship Specialty Start Date End Date Mary Crabtree III, MD [address] [place] [address] PCP - General Family Practice 03/31/15 documented as of this encounter
--- OUTSIDE RECORDS SUMMARY | 2024-07-08 19:40 | XMS_ITS | Encounter Summary ---
Author Organization [facility] Address [address] [place] [address] Care Team Providers Care Melangeur Operator Name Role Phone Elsewhere, Pcp Primary Care [...] CDT Legal Sex Female 9:19 AM HOT SHOT Gender Identity Female 04/07/2021 9:53 PM CDT [...] / PLAN Consult requested by: Aly Villarreal [id number] #1 RAthke's cleft cyst #2 Visual field report, Normal visual field both eyes. DIAGNOSIS #1 RAthke's cleft cyst #2 Visual field report, Normal visual field both eyes. CD Reports - EYEGEN Id: [id number] Status: Fnl documented in this encounter Plan [...] Pending 08/25/2023 08/25/2023 08/25/2023 1 1:39 AM HOT SHOT Assessment Noted Time PHQ-9 Depression Total Score: 0 05/10/20 07 12:00 PM HOT SHOT documented as of this encounter Care Teams Melangeur Operator Relationship Specialty Start Date End Date Elsewhere, Pcp PCP - General Internal Medicine 09/03/19 documented as of this encounter
--- OUTSIDE RECORDS SUMMARY | 2024-07-08 19:40 | XMS_ITS | Referral Summary ---
Author Organization [facility] Address [address] [place] [address] Care Team Providers Care Business Objects Developer Name Role Phone Elsewhere, Pcp Primary Care Provider Unavailabl e Source Comments Patient records contain information from all sites at [facility]. For routine questions regarding patient records, call [phone] during business hours, M-F 8:00 AM - 5:00 PM Central Time. 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 10/17/2017 10:13 AM [...] week 04/07/2021 How often do you attend [facility] or congregational services? Patient declined 04/07/2021 Do you belong to any clubs o r organizations such as lutheran groups, unions, fraternal or athletic groups, or [...] medical care, and heating? Somewhat hard 04/07/2021 [facility] of Occupat ional Health - Occupational Stress [...] PM CDT Legal Sex Female 9:19 AM RUBBER CHEMIST Gender Identity Female 04/07/2021 9:53 PM CDT [...] Most Recently Relevant to Health Maintenance Insurance [facility] [employer] MEDICARE Advance Directives For more information, please contact: [phone] * Full Code (Latest Code Status on File) Date Activated Date Inactivated Comments 11/06/2021 8:16 PM 11/07/2021 7:19 PM Question Answer Comments Full Code: Discussed * Full Code Date Activated Date Inactivated Comments 09/24/2021 2:12 PM 09/25/2021 7:34 PM Question Answer Comments Full Code: Discussed Care Teams Business Objects Developer Relationship Specialty Start Date End Date Elsewhere, Pcp PCP - General Internal Medicine 09/03/19
--- OUTSIDE RECORDS SUMMARY | 2024-07-08 19:40 | XMS_ITS ---
Author Organization [facility] Address [address] [place] [address] Care Team Providers Care Decorative Engraver Name Role Phone Unavailable Unavailable Unavailable Surgery Details Not on file Complications Check Surgery Details section. Procedure Estimated Blood Loss Check Surgery Details section. Procedure Findings Check Surgery Details section. Procedure Specimens Taken Check Surgery Details section.
--- OUTSIDE RECORDS SUMMARY | 2024-07-08 19:40 | XMS_ITS | Encounter Summary ---
Author Organization [facility] Address [address] [place] [address] Care Team Providers Care Litigation Assistant Name Role Phone Elsewhere, Pcp Primary Care Provider Unavailabl e Reason for Referral * Outpatient (Routine) - Authorized Specialty Diagnoses / Procedures Referred By Miguelangel aleman Referred To Contact Diagnoses Gitelman Syndrome (HCC) Janine Roberts M.D., Ph.D. [address] [place] [address] Phone: tel: fax: [facility] Referral ID Status Reason Start Date Expiration Date V isits Requested Visits Authorized [id number] Authorized 04/07/2024 10/07/2025 1 1 Encounter Details Date Type Department Care Team (Late st Contact Info) Description 04/07/2024 Orders Only Department of Medical Genetics in [place], [place] [address] [place] [phone] [facility], ProviderMD Gitelman Syndrome (HCC) Social History Tobacco [...] week 04/07/2021 How often do you attend [facility] or anglican services? Patient declined 04/07/2021 Do you belong to any clubs o r organizations such as synagogue groups, unions, fraternal or athletic groups, or [...] medical care, and heating? Somewhat hard 04/07/2021 [facility] of Occupat ional Health - Occupational Stress [...] PM CDT Legal Sex Female 9:19 AM PHOTO EDITOR Gender Identity Female 04/07/2021 9:53 PM CDT [...] documented as of this encounter Care Teams Litigation Assistant Relationship Specialty Start Date End Date Elsewhere, Pcp PCP - General Internal Medicine 09/03/19 documented as of this encounter
--- OUTSIDE RECORDS SUMMARY | 2024-07-08 19:40 | XMS_ITS | Clinical Summary ---
Author Organization [facility] Address [address] [place] [address] Care Team Providers Care Head Housekeeper Name Role Phone Elsewhere, Pcp Primary Care Provider Unavailabl e Source Comments Patient records contain information from all sites at [facility]. For routine questions regarding patient records, call [phone] during business hours, M-F 8:00 AM - 5:00 PM Central Time. Record requests for emergency care only can be directed to [phone] at any time.[facility] Allergies Active Allergy Reactions Criticality Noted Date [...] her treatment plan for hypokalemia admissions at [facility] Eros Melendez MD .................... 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 Patient declined 04/07/2021 Do you belong to any clubs o r organizations such as jew groups, unions, fraternal or athletic groups, or [...] medical care, and heating? Somewhat hard 04/07/2021 [facility] of Occupat ional [facility] - Occupational Stress Questionnaire Answer Date Recorded [...] place to sleep or slept in a correction (including now)? No 04/07/2021 Nutrition Answer Date [...] PM CDT Legal Sex Female 9:19 AM SPRING FORGER Gender Identity Female 04/07/2021 9:53 PM CDT [...] Most Recently Relevant to Health Maintenance Insurance [facility] [place] [address] MEDICARE Advance Directives For more information, please contact: [phone] * Full Code (Latest Code Status on File) Date Activated Date Inactivated Comments 11/06/2021 8:16 PM 11/07/2021 7:19 PM Question Answer Comments Full Code: Discussed * Full Code Date Activated Date Inactivated Comments 09/24/2021 2:12 PM 09/25/2021 7:34 PM Question Answer Comments Full Code: Discussed Care Teams Head Housekeeper Relationship Specialty Start Date End Date Elsewhere, Pcp PCP - General Internal Medicine 09/03/19
[2024-07-08 19:56] LABS: Strep A DNA Probe* NOT DETECTED (Not Detectd)
[2024-07-08 20:08] LABS: PCR FLU A Negative PCR FLU A (Negative); PCR FLU B Negative PCR FLU B (Negative); PCR RSV Negative PCR RSV (Negative); SARS PCR* Negative SARS-CoV-2 (Negative)
[2024-07-08] MEDS: ONDANSETRON 2 MG/ML inj 4 MG IVP (21:10)
[2024-07-08] MEDS: 0.9 % SODIUM CHLORIDE 500 ML 500 ML IV (21:10)
[2024-07-08] MEDS: HYDROmorphone 0.5 mg/0.5 ml inj IVP (21:46)
[2024-07-08 21:47] LABS: Chloride* 82 mmol/L (96-114); Sodium* 135 mmol/L (135-149)
[2024-07-08 21:49] LABS: Creatinine* 2.2 mg/dL (0.5-1.5); Est. Creatinine Clearance* 28.13; Estimated Glomerular Filt Rate 30 ml/min
[2024-07-08 21:50] LABS: Blood Urea Nitrogen* 59 mg/dL (5-24); Calcium* 9.6 mg/dL (8.4-10.6); Glucose* 95 mg/dL (60-115)
[2024-07-08 21:53] LABS: Basophils Absolute Auto 0.04 K/uL (0.00-0.30); Basophils Percent Auto 0.5 % (0.0-3.0); Eosinophils Percent Auto 1.3 % (0.0-7.0); Hematocrit 27.8 % (33.0-51.0); Hemoglobin* 9.4 gm/dL (12.0-16.0); Immature Granulocytes Abs Auto 0.05 K/uL (0.00-0.30); Immature Granulocytes Pct Auto 0.7 %; Lymphocytes Absolute Auto 2.71 K/uL (0.90-2.90); Lymphocytes Percent Auto 35.2 % (20-44); Mean Corpuscular HGB Conc 34 gm/dL (32-36); Mean Corpuscular Hemoglobin 27 pg (26-34); Mean Corpuscular Volume 81 fL (80-100); Monocytes Percent Auto 7.8 % (0.0-11.0); Neutrophils Absolute Auto 4.19 K/uL (1.7-7.0); Neutrophils Percent Auto 54.5 % (42.0-72.0); Platelet Count* 537 K/uL (140-440); RDW Coefficient of Variation % 15.4 % (11.5-15.5); Red Blood Count 3.45 m/uL (4.00-5.20); Slide Review Reflex No; White Blood Count* 7.69 K/uL (4.50-11.00)
[2024-07-08 21:55] LABS: Potassium* 2.6 mmol/L (3.6-5.1)
[2024-07-08 22:14] LABS: Anion Gap 14 mEq/L (7-15); Carbon Dioxide* 39 mmol/L (20-32)
[2024-07-08] MEDS: POTASSIUM CHLORIDE 10 MEQ/100 ML PIGGYBACK 100 MEQ IVPB (22:34)
[2024-07-08] MEDS: 0.9 % SODIUM CHLORIDE 1000 ml 1,000 ML 125 ML IV (22:45)
== END 2024-07-08 23:30 | disposition home or self-care (01) ==
PROVIDERS: Emergency Provider Emergency Medicine; PCP Physician Assistant
DX: E87.6 Hypokalemia (principal); K08.89 Other specified disorders of teeth and supporting structures; N17.9 Acute kidney failure, unspecified; R11.2 Nausea with vomiting, unspecified
CPT/HCPCS: 36415; 80048; 85025; 87631; 87651; 99284; 99285; A9270; J1171; J2405; J3480; J7030